=== PATIENT | female | born 1950 | race Caucasian/White ===

== ENCOUNTER 2017-01-07 10:13 | Outpatient (CLI) | payer MEDICARE, OTHER ==
--- NOTE | 2017-01-07 12:06 | XRAY Report ---
THREE VIEW LEFT FOOT: 01/07/2017 CLINICAL INDICATION: Fracture followup. FINDINGS: AP, lateral, and oblique views of the left foot are compared to previous films of 12/13/19 17. There has been interval callus formation at the comminuted fracture of the 5th metatarsal. No new fra cture is seen. Osteoarthritic changes are stable. IMPRESSION: CALLUS FORMATION AT THE 5TH METATARSAL FRACTURE SITE. JOB #: [id number] EXT JOB #:[id number]
== END 2017-01-07 10:14 | disposition home or self-care (01) ==
LOC: DI.N 10:13
PROVIDERS: ATTEND Orthopaedic Surgery
DX: S92.352D Displaced fracture of fifth metatarsal bone, left foot, subsequent encounter for fracture with routine healing (principal)

== ENCOUNTER 2017-02-04 08:30 | Outpatient (CLI) | payer MEDICARE, OTHER ==
[2017-02-04 13:11] LABS: BASOPHILS % (AUTO) 0.7 %; EOSINOPHILS # (AUTO) 0.2 10^3/uL (0.0-0.7); EOSINOPHILS % (AUTO) 3.9 %; HCT - HEMATOCRIT 39.4 % (37.0-47.0); HGB - HEMOGLOBIN 13.3 g/dL (12.0-16.0); LYMPHOCYTES # (AUTO) 1.9 10^3/uL (1.5-3.5); LYMPHOCYTES % (AUTO) 36.7 %; MEAN CORPUSCULAR HEMOGLOBIN 29.6 pg (27.0-31.0); MEAN CORPUSCULAR HGB CONC 33.8 g/dL (32.0-36.0); MEAN CORPUSCULAR VOLUME 87.5 fL (81.0-99.0); MEAN PLATELET VOLUME 8.8 fL (7.9-10.8); MONOCYTES # (AUTO) 0.3 10^3/uL (0.0-1.0); MONOCYTES % (AUTO) 6.5 %; NEUTROPHILS # (AUTO) 2.7 10^3/uL (1.5-6.6); NEUTROPHILS % (AUTO) 52.2 %; RED CELL DISTRIBUTION WIDTH 13.8 % (12.0-15.0); UNCORRECTED WHITE BLOOD COUNT 5.2 x10^3/uL; WHITE BLOOD COUNT 5.2 x10^3/uL (4.8-10.8)
[2017-02-04 13:42] LABS: ALBUMIN/GLOBULIN RATIO 1.6 (1.0-2.2); BUN - BLOOD UREA NITROGEN 17 mg/dL (6-20); CALCIUM 9.4 mg/dL (8.5-10.3); CARBON DIOXIDE - CO2 30 mmol/L (21-32); CHLORIDE 103 mmol/L (101-111); CHOL/HDL RATIO 2.7 (<4.4); CHOLESTEROL 168 mg/dL; CREATININE 1.2 mg/dL (0.4-1.0); GFR - MDRD 45 (>89); GLUCOSE 103 mg/dL (70-100); HDL CHOLESTEROL 63 mg/dL; LDL/HDL RATIO 1.3 (<4.4); POTASSIUM 4.1 mmol/L (3.5-5.0); SODIUM 140 mmol/L (135-145); TOTAL PROTEIN 6.8 g/dL (6.7-8.2); TRIGLYCERIDES 121 mg/dL; VLDL CHOLESTEROL 24 mg/dL
== END 2017-02-04 08:31 | disposition home or self-care (01) ==
LOC: LAB.WCP 08:30
PROVIDERS: ATTEND Physician Assistant Medical
DX: E78.5 Hyperlipidemia, unspecified (principal)
CPT/HCPCS: 36415; 80053; 80061; 84443; 85025

== ENCOUNTER 2017-04-29 12:16 | Outpatient (CLI) | payer MEDICARE, OTHER ==
--- NOTE | 2017-05-01 15:14 | Mammography Report ---
DIGITAL SCREENING MAMMOGRAM: 04/29/2017 CLINICAL INDICATION: A 67-year-old with history of benign biopsies for screening. COMPARISON: 03/2016, 05/2014, 05/2013, 03/2012, 02/2011, 01/2010 TECHNIQUE: Routine CC and MLO projections were obtained of the breasts. FINDINGS: The breasts demonstrate scattered fibroglandular densities bilaterally. Post-biopsy kwong es are stable. Coarse and punctate, typically benign calcifications are present. Circumscribed nodu le in the right upper outer quadrant is stable. No suspicious masses, clustered microcalcifications, or regions of architectural distortion are identified. IMPRESSION: BENIGN FINDINGS. RECOMMENDATION: Routine annual screening unless otherwise clinically indicated. BIRADS CATEGORY 2 - BENIGN FINDINGS. STANDARD QUALIFYING STATEMENTS 1. This examination was reviewed with the aid of Computer-Aided Detection (CAD). 2. A negative or benign imaging report should not delay biopsy if clinically suspicious findings are present. Consider surgical consultation if warranted. More than 5% of cancers are not identified by i maging. 3. Dense breasts may obscure an underlying neoplasm. JOB #: [id number] EXT JOB #:[id number]
== END 2017-04-29 12:17 | disposition home or self-care (01) ==
LOC: DI.N 12:16
PROVIDERS: ATTEND Physician Assistant Medical
DX: Z12.31 Encounter for screening mammogram for malignant neoplasm of breast (principal)
CPT/HCPCS: 77067

== ENCOUNTER 2018-03-19 08:27 | Outpatient (CLI) | payer MEDICARE, OTHER ==
[2018-03-19 12:54] LABS: BASOPHILS % (AUTO) 0.9 %; EOSINOPHILS # (AUTO) 0.3 10^3/uL (0.0-0.7); EOSINOPHILS % (AUTO) 5.8 %; HGB - HEMOGLOBIN 13.1 g/dL (12.0-16.0); LYMPHOCYTES # (AUTO) 1.1 10^3/uL (1.5-3.5); LYMPHOCYTES % (AUTO) 20.8 %; MEAN CORPUSCULAR HEMOGLOBIN 30.2 pg (27.0-31.0); MEAN CORPUSCULAR HGB CONC 33.7 g/dL (32.0-36.0); MEAN CORPUSCULAR VOLUME 89.6 fL (81.0-99.0); MEAN PLATELET VOLUME 8.8 fL (7.9-10.8); MONOCYTES # (AUTO) 0.5 10^3/uL (0.0-1.0); MONOCYTES % (AUTO) 8.5 %; NEUTROPHILS # (AUTO) 3.4 10^3/uL (1.5-6.6); PLT - PLATELET COUNT 226 10^3/uL (130-450); RED BLOOD COUNT 4.35 10^6/uL (4.20-5.40); RED CELL DISTRIBUTION WIDTH 13.6 % (12.0-15.0); WHITE BLOOD COUNT 5.3 x10^3/uL (4.8-10.8)
[2018-03-19 13:17] LABS: ALBUMIN/GLOBULIN RATIO 1.4 (1.0-2.2); ALKALINE PHOSPHATASE 70 IU/L (42-121); ALT ALANINE AMINOTRANSFERASE 21 IU/L (10-60); AST ASPARTATE AMINOTRANSFERASE 21 IU/L (10-42); BUN - BLOOD UREA NITROGEN 20 mg/dL (6-20); CARBON DIOXIDE - CO2 30 mmol/L (21-32); CHLORIDE 101 mmol/L (101-111); CHOL/HDL RATIO 3.2 (<4.4); CHOLESTEROL 174 mg/dL; CREATININE 1.2 mg/dL (0.4-1.0); GFR - MDRD 45 (>89); GLUCOSE 94 mg/dL (70-100); HDL CHOLESTEROL 54 mg/dL; LDL CHOLESTEROL,CALCULATED 91 mg/dL; LDL/HDL RATIO 1.7 (<4.4); SODIUM 139 mmol/L (135-145); TOTAL PROTEIN 6.9 g/dL (6.7-8.2); VLDL CHOLESTEROL 29 mg/dL
== END 2018-03-19 08:28 ==
LOC: LAB.WCP 08:27
PROVIDERS: ATTEND Physician Assistant Medical
DX: E78.5 Hyperlipidemia, unspecified (principal); K21.9 Gastro-esophageal reflux disease without esophagitis
CPT/HCPCS: 36415; 80053; 80061; 83721; 85025

== ENCOUNTER 2018-05-21 11:45 | Outpatient (CLI) | payer MEDICARE, OTHER ==
--- NOTE | 2018-05-27 10:55 | Mammography Report ---
Reason: SCREENING MAMMO Procedure Date: 05/21/2018 Accession Number: [id number] / [id number] Procedure: MGN - Screening Mammo Dig Bilat CPT Code: FULL RESULT: EXAM: Screening Mammo Dig Bilat DATE: 05/21/2018 12:16 PM CLINICAL HISTORY: Screening. No reported personal or family history of breast cancer. History of bilateral benign breast biopsy TECHNIQUE: Bilateral CC and MLO views were obtained. COMPARISON: 04/29/2017 through 05/13/2013 FINDINGS: The breasts demonstrate scattered fibroglandular densities bilaterally. Bilateral breasts: There are stable postsurgical changes in both breasts. Stable biopsy marker noted in the left breast. There are no suspicious masses, calcifications or areas of distortion. IMPRESSION: Benign findings RECOMMENDATION: Routine annual screening unless otherwise clinically indicated. BI-RADS CATEGORY 2: Benign findings STANDARD QUALIFYING STATEMENTS: 1. This examination was reviewed with the aid of Computer-Aided Detection (CAD). 2. A negative or benign imaging report should not preclude biopsy if clinically suspicious findings are present. 3. Dense breasts may obscure an underlying neoplasm. 4. This examination was reviewed without the aid of 3D breast imaging (tomosynthesis).
== END 2018-05-21 11:46 | disposition home or self-care (01) ==
LOC: DI.N 11:45
DX: Z12.31 Encounter for screening mammogram for malignant neoplasm of breast (principal)
CPT/HCPCS: 77067

== ENCOUNTER 2018-10-10 09:29 | Outpatient (CLI) | payer MEDICARE, OTHER ==
--- NOTE | 2018-10-10 15:45 | XRAY Report ---
Reason: LEG PAIN, RIGHT Procedure Date: 10/10/2018 Accession Number: [id number] / [id number] Procedure: WCP - Tib/Fib RT CPT Code: FULL RESULT: EXAM: RIGHT TIBIA/FIBULA RADIOGRAPHY EXAM DATE: 10/10/2018 09:39 AM. CLINICAL HISTORY: Pain in the middle of the right lower leg. No known injury. COMPARISON: None. TECHNIQUE: 2 views. FINDINGS: Bones: Normal. No fracture or bone lesion. Joints: The patient is status post knee arthroplasty, incompletely evaluated. Soft Tissues: Normal. No soft tissue swelling. IMPRESSION: No fracture or dislocation of fibula or tibia. RADIA
== END 2018-10-10 09:30 | disposition home or self-care (01) ==
LOC: DI.WCP 09:29
PROVIDERS: ATTEND Physician Assistant Medical
DX: M79.604 Pain in right leg (principal)

== ENCOUNTER → 2019-07-07 | Outpatient (CLI) | payer MEDICARE, OTHER ==
[2019-07-07 12:22] LABS: BASOPHILS # (AUTO) 0.1 10^3/uL (0.0-0.1); EOSINOPHILS # (AUTO) 0.3 10^3/uL (0.0-0.7); EOSINOPHILS % (AUTO) 6.2 %; HGB - HEMOGLOBIN 13.1 g/dL (12.0-16.0); LYMPHOCYTES # (AUTO) 1.9 10^3/uL (1.5-3.5); MEAN CORPUSCULAR HEMOGLOBIN 28.8 pg (27.0-31.0); MEAN CORPUSCULAR HGB CONC 31.8 g/dL (32.0-36.0); MEAN CORPUSCULAR VOLUME 90.5 fL (81.0-99.0); MEAN PLATELET VOLUME 11.3 fL (7.9-10.8); MONOCYTES # (AUTO) 0.4 10^3/uL (0.0-1.0); NEUTROPHILS # (AUTO) 2.4 10^3/uL (1.5-6.6); NEUTROPHILS % (AUTO) 48.6 %; PLT - PLATELET COUNT 251 10^3/uL (130-450); RED BLOOD COUNT 4.55 10^6/uL (4.20-5.40); RED CELL DISTRIBUTION WIDTH 13.2 % (12.0-15.0)
[2019-07-07 12:37] LABS: ALBUMIN 4.1 g/dL (3.2-5.5); ALBUMIN/GLOBULIN RATIO 1.7 (1.0-2.2); ALKALINE PHOSPHATASE 54 IU/L (42-121); ALT ALANINE AMINOTRANSFERASE 19 IU/L (10-60); AST ASPARTATE AMINOTRANSFERASE 21 IU/L (10-42); BILIRUBIN,TOTAL 0.9 mg/dL (0.2-1.0); BUN - BLOOD UREA NITROGEN 26 mg/dL (6-20); CALCIUM 8.9 mg/dL (8.5-10.3); CARBON DIOXIDE - CO2 26 mmol/L (21-32); CHLORIDE 102 mmol/L (101-111); CHOL/HDL RATIO 4.8 (<4.4); CHOLESTEROL 248 mg/dL; CREATININE 1.2 mg/dL (0.4-1.0); GFR - MDRD 45 (>89); GLUCOSE 112 mg/dL (70-100); HDL CHOLESTEROL 52 mg/dL; LDL CHOLESTEROL,CALCULATED 156 mg/dL; SODIUM 138 mmol/L (135-145); TOTAL PROTEIN 6.5 g/dL (6.7-8.2); VLDL CHOLESTEROL 40 mg/dL
== END ==
LOC: LAB.WCP 08:25
PROVIDERS: ATTEND Physician Assistant Medical
DX: E78.5 Hyperlipidemia, unspecified (principal); K21.9 Gastro-esophageal reflux disease without esophagitis
CPT/HCPCS: 36415; 80053; 80061; 83721; 85025

== ENCOUNTER 2019-08-25 12:19 | Outpatient (CLI) | payer MEDICARE, OTHER ==
--- NOTE | 2019-08-25 15:11 | Mammography Report ---
Reason: ROUTINE MAMMO Procedure Date: 08/25/2019 Accession Number: [id number] / [id number] Procedure: MGN - Screening Mammo w/Brian CPT Code: Final Report FULL RESULT: EXAM: Screening Mammo w/Brian DATE: 08/25/2019 12:47 PM CLINICAL HISTORY: Routine screening. History of bilateral benign biopsies. TECHNIQUE: (B) - Bilateral CC and MLO views were obtained. COMPARISON: 05/21/2018, 04/29/2017, 03/15/2016 and 05/28/2014 PARENCHYMAL PATTERN: (A) - The breasts demonstrate scattered fibroglandular densities bilaterally. FINDINGS: No significant interval change. There are no suspicious masses, calcifications, or areas of distortion. Scattered nodular densities in the right breast and a biopsy clip in the left breast are stable. IMPRESSION: Negative examination. BI-RADS category 1. RECOMMENDATION: (ANNUAL) - Recommend routine annual screening mammography. BI-RADS CATEGORY: (1) - Negative. STANDARD QUALIFYING STATEMENTS: 1. This examination was not reviewed with the aid of Computer-Aided Detection (CAD). 2. A negative or benign imaging report should not preclude biopsy if clinically suspicious findings are present. 3. Dense breasts may obscure an underlying neoplasm. 4. This examination was reviewed with the aid of 3D breast imaging (tomosynthesis).
== END 2019-08-25 12:20 | disposition home or self-care (01) ==
LOC: DI.N 12:19
DX: Z12.31 Encounter for screening mammogram for malignant neoplasm of breast (principal)
CPT/HCPCS: 77063; 77067

== ENCOUNTER 2019-11-25 09:37 | Outpatient (CLI) | payer MEDICARE, OTHER ==
--- NOTE | 2019-11-25 09:45 | XRAY Report ---
Reason: RIGHT SHOULDER IMPINGEMENT SYNDROME Procedure Date: 11/25/2019 Accession Number: [id number] / [id number] Procedure: WCP - Shoulder 3 View RT CPT Code: Final Report FULL RESULT: PROCEDURE: Shoulder 3 View RT INDICATIONS: RIGHT SHOULDER IMPINGEMENT SYNDROME TECHNIQUE: 3 views of the shoulder were acquired. COMPARISON: None. FINDINGS: Bones: No fractures or dislocations. No suspicious bony lesions. Visualized ribs appear intact. Mild shoulder joint degeneration Soft tissues: No suspicious soft tissue calcifications. IMPRESSION: Mild right shoulder joint degeneration. If the patient's pain or other symptoms persist, consider further evaluation with MRI. Reviewed by: Cale Plata MD on 11/25/2019 9:44 AM PDT Approved by: Cale Plata MD on 11/25/2019 9:44 AM PDT Station ID: [id number]
== END 2019-11-25 23:59 | disposition home or self-care (01) ==
LOC: DI.WCP 09:37
PROVIDERS: ATTEND Physician Assistant Medical
DX: M19.011 Primary osteoarthritis, right shoulder (principal)

== ENCOUNTER 2020-10-22 11:06 | Outpatient (CLI) | payer MEDICARE, OTHER ==
--- NOTE | 2020-10-22 20:05 | XRAY Report ---
PROCEDURE: Foot 3 View LT INDICATIONS: FOOT PAIN TECHNIQUE: 3 views of the foot were acquired. COMPARISON: None available at time of dictation. FINDINGS: Bones: There is a remote fifth metatarsal fracture. No acute fracture. There is hallux valgus with mo derate degenerative changes of the first metatarsophalangeal joint. There is mild bony and soft tissu e bunion formation. Soft tissues: No tibiotalar joint effusion. Small Achilles insertional and moderate plantar insertio nal enthesophyte. IMPRESSION: No acute osseous abnormality. Hallux valgus with moderate degenerative changes of the first metatarsophalangeal joint and mild osse ous and soft tissue bunion formation. Calcaneal spurring at the plantar fascial and Achilles insertions. Reviewed by: David Sargent DO on 10/22/2020 7:04 PM MEAGHAN Approved by: David Sargent DO on 10/22/2020 7:04 PM MEAGHAN Station ID: [id number]
== END 2020-10-22 11:07 | disposition home or self-care (01) ==
LOC: DI.N 11:06
PROVIDERS: ATTEND Family Medicine
DX: M79.672 Pain in left foot (principal); M19.072 Primary osteoarthritis, left ankle and foot; M20.12 Hallux valgus (acquired), left foot; M77.32 Calcaneal spur, left foot

== ENCOUNTER 2021-02-09 10:26 | Outpatient (CLI) | payer MEDICARE, OTHER ==
[2021-02-09 17:58] LABS: BASOPHILS % (AUTO) 0.7 %; EOSINOPHILS # (AUTO) 0.4 10^3/uL (0.0-0.7); HCT - HEMATOCRIT 41.4 % (37.0-47.0); HGB - HEMOGLOBIN 12.8 g/dL (12.0-16.0); LYMPHOCYTES # (AUTO) 1.5 10^3/uL (1.5-3.5); LYMPHOCYTES % (AUTO) 26.7 %; MEAN CORPUSCULAR HEMOGLOBIN 29.5 pg (27.0-31.0); MEAN CORPUSCULAR HGB CONC 30.9 g/dL (32.0-36.0); MEAN CORPUSCULAR VOLUME 95.4 fL (81.0-99.0); MEAN PLATELET VOLUME 10.9 fL (7.9-10.8); MONOCYTES # (AUTO) 0.4 10^3/uL (0.0-1.0); MONOCYTES % (AUTO) 7.7 %; NEUTROPHILS # (AUTO) 3.3 10^3/uL (1.5-6.6); NEUTROPHILS % (AUTO) 57.5 %; PLT - PLATELET COUNT 242 10^3/uL (130-450); RED BLOOD COUNT 4.34 10^6/uL (4.20-5.40); RED CELL DISTRIBUTION WIDTH 13.2 % (12.0-15.0); WHITE BLOOD COUNT 5.7 x10^3/uL (4.8-10.8)
[2021-02-09 18:23] LABS: ALBUMIN 4.2 g/dL (3.2-5.5); ALBUMIN/GLOBULIN RATIO 1.4 (1.0-2.2); ALKALINE PHOSPHATASE 74 IU/L (42-121); ALT ALANINE AMINOTRANSFERASE 17 IU/L (10-60); AST ASPARTATE AMINOTRANSFERASE 20 IU/L (10-42); BILIRUBIN,TOTAL 0.9 mg/dL (0.2-1.0); BUN - BLOOD UREA NITROGEN 26 mg/dL (6-20); CALCIUM 9.3 mg/dL (8.5-10.3); CARBON DIOXIDE - CO2 32 mmol/L (21-32); CHLORIDE 102 mmol/L (101-111); CHOL/HDL RATIO 2.9 (<4.4); CHOLESTEROL 174 mg/dL; CREATININE 1.1 mg/dL (0.4-1.0); GFR - MDRD 49 (>89); GLUCOSE 94 mg/dL (70-100); HDL CHOLESTEROL 61 mg/dL; LDL CHOLESTEROL,CALCULATED 91 mg/dL; LDL/HDL RATIO 1.5 (<4.4); POTASSIUM 4.2 mmol/L (3.5-5.0); SODIUM 142 mmol/L (135-145); TOTAL PROTEIN 7.2 g/dL (6.7-8.2); TRIGLYCERIDES 108 mg/dL; VLDL CHOLESTEROL 22 mg/dL
== END 2021-02-09 23:59 | disposition home or self-care (01) ==
LOC: LAB.WCP 10:26
PROVIDERS: ATTEND Physician Assistant Medical
DX: E78.5 Hyperlipidemia, unspecified (principal); K21.9 Gastro-esophageal reflux disease without esophagitis
CPT/HCPCS: 36415; 80053; 80061; 83721; 85025

== ENCOUNTER 2021-05-17 12:21 | Outpatient (CLI) | payer MEDICARE, OTHER ==
--- NOTE | 2021-05-18 11:58 | Mammography Report ---
BILATERAL DIGITAL SCREENING MAMMOGRAM 3D/2D: 05/17/2021 CLINICAL: Routine screening. Comparison is made to exams dated: 08/25/2019 mammogram, 05/21/2018 mammogram, 04/29/2017 mammogram, 03/15/2016 mammogram, 05/28/2014 mammogram, and 05/13/2013 mammogram - [facility]. T he tissue of both breasts is predominantly fatty. No significant masses, calcifications, or other findings are seen in either breast. There has been no significant interval change. IMPRESSION: NEGATIVE There is no mammographic evidence of malignancy. A 1 year screening mammogram is recommended. This exam was interpreted at Station ID: [id number]. NOTE: For mammograms, a report in lay terms will be sent to the patient. Approximately 15% of breast malignancies will not be visualized mammographically. In the management of a palpable breast mass, a negative mammogram must not discourage biopsy of a clinically suspicious lesion. Electronically Signed By: Sandro Ardon M.D., jr/darlene:05/17/2021 13:13:53 ACR BI-RADS Category 1: Negative 3341F PARENCHYMAL PATTERN: (F) - The breast(s) demonstrate(s) diffuse fatty replacement. BI-RADS CATEGORY: (1) - 1 RECOMMENDATION: (ANNUAL) - Recommend routine annual screening mammography. [id number] 1 year screening LATERALITY: (B)
== END 2021-05-17 12:22 | disposition home or self-care (01) ==
LOC: DI.N 12:21
DX: Z12.31 Encounter for screening mammogram for malignant neoplasm of breast (principal)

== ENCOUNTER 2021-07-17 11:40 | Outpatient (CLI) | payer MEDICARE, OTHER | END 2021-07-17 23:59 | disposition home or self-care (01) | LOC: LAB.N 11:40 | PROVIDERS: ATTEND Physician Assistant Medical | DX: N30.00 Acute cystitis without hematuria (principal) | CPT/HCPCS: 87086 ==

== ENCOUNTER 2021-08-17 15:23 | Outpatient (CLI) | payer MEDICARE, OTHER ==
--- NOTE | 2021-08-18 10:42 | Ultrasound Report ---
PROCEDURE: Ext Limited Non Vascular INDICATIONS: LEFT ARM SOFT TISSUE MASS TECHNIQUE: Real-time scanning was performed of the left arm, with image documentation. COMPARISON: None. FINDINGS: Focused ultrasound examination of medial left elbow region shows no discrete soft tissue mass or flui d collection. IMPRESSION: No abnormality is seen in left medial elbow soft tissue at patient's reported area of pa lpable lump. Reviewed by: Antonio Perera MD on 08/18/2021 10:41 AM PST Approved by: Antonio Perera MD on 08/18/2021 10:41 AM PST Station ID: [id number]
== END 2021-08-17 15:24 | disposition home or self-care (01) ==
LOC: DI 15:23
PROVIDERS: ATTEND Physician Assistant
DX: R22.32 Localized swelling, mass and lump, left upper limb (principal)

== ENCOUNTER 2021-09-08 08:30 | Day surgery (SDC) | payer MEDICARE, OTHER ==
[~2021-09-08 08:30] MED LIST: LACTATED RINGERS 1,000 ML IV ONE
[2021-09-08] MEDS ORDERED: PROPOFOL 500 MG/50 ML 500 MG/50 ML VIAL ONE (08:52)
--- NOTE | 2021-09-08 09:11 | ANESTHESIA ---
Pre-Anesthesia VS, & Labs - Diagnosis history of polyps - Procedure colon polyps Vital Signs: Temp Pulse Resp BP Pulse Ox 37 C 91 19 137/84 H 96 09/08/21 08:47 09/08/21 08:47 09/08/21 08:47 09/08/21 08:47 09/08/21 08:47 Height: 5 ft 1 in Weight (kg): 99.5 kg Body Mass Index: 41.4 BMI Classification: Morbidly Obese - NPO >8 hours - Is Patient ?: No - Lab Results Lab results reviewed: Yes Home Medications and Allergies Home Medications: Ambulatory Orders Atorvastatin [Lipitor] 20 mg PO DAILY 09/08/21 Escitalopram Oxalate [Lexapro] 20 mg PO DAILY 05/03/14 Solifenacin Succinate [Vesicare] 10 mg PO DAILY 05/03/14 Cetirizine [ZyrTEC] 10 mg PO DAILY PRN 07/26/14 lisinopriL [Lisinopril] 10 mg PO ONCE 04/18/16 Atorvastatin [Lipitor] 20 mg PO DAILY 09/08/21 Allergies/Adverse Reactions: Allergies Allergy/AdvReac Type Severity Reaction Status Date / Time No Known Drug Allergies Allergy Verified 09/08/21 08:59 Anes History & Medical History - Anesthetic History Anesthesia Complications: reports: No previous complications Family history of Anesthesia Complications: Denies Family history of Malignant Hyperthermia: Denies - Medical History Cardiovascular: reports: High cholesterol Pulmonary: reports: None Gastrointestinal: reports: GERD Urinary: reports: Incontinence Musculoskeletal: reports: Osteoporosis, Chronic back pain Endocrine/Autoimmune: reports: None Skin: reports: None Smoking Status: Never smoker - Surgical History Eyes Ears Nose Throat (EENT): reports: Tonsil/Adenoidectomy Orthopedic: reports: Knee replacement, Other Exam General: Alert, Oriented x3, Cooperative, No acute distress Dental: WNL Mouth Openin Fingerbreadth Neck Mobility: Normal Mallampati classification: II Plan Anesthesia Type: General, Total IV Consent for Procedure(s) Verified and Reviewed: Yes Code Status: Attempt Resuscitation ASA classification: 3-Severe systemic disease Is this case an emergency?: No
--- NOTE | 2021-09-08 09:22 | HISTORY & PHYSICAL EXAMINATION ---
Chief Complaint - Chief Complaint Chief Complaint: history colon polyp History of Present Illness - History Obtained From Records Reviewed: yes History obtained from: pt Exam Limitations: none - History of Present Illness HPI Comment/Other: distant history of colon polyp. here for colon cancer screening. no problems. History - Past Medical History Cardiovascular: reports: High cholesterol Respiratory: reports: None Endocrine/Autoimmune: reports: None GI: reports: GERD : reports: Incontinence HEENT: reports: Chronic vision loss, Chronic hearing loss Psych: reports: Depression Musculoskeletal: reports: Osteoporosis, Chronic back pain Derm: reports: None MRSA Hx?: No - Past Surgical History Ortho: reports: Knee replacement, Other HEENT: reports: Tonsil/Adenoidectomy Meds/Allgy - Home Medications Home Medications: Ambulatory Orders Medication Instructions Recorded Confirmed Escitalopram Oxalate [Lexapro] 20 mg PO DAILY 05/03/14 09/08/21 Solifenacin Succinate [Vesicare] 10 mg PO DAILY 05/03/14 09/08/21 Cetirizine [ZyrTEC] 10 mg PO DAILY PRN 07/26/14 09/08/21 lisinopriL [Lisinopril] 10 mg PO ONCE 04/18/16 09/08/21 Atorvastatin [Lipitor] 20 mg PO DAILY 09/08/21 09/08/21 - Allergies Allergies/Adverse Reactions: Allergies Allergy/AdvReac Type Severity Reaction Status Date / Time No Known Drug Allergies Allergy Verified 09/08/21 08:59 Review of Systems - Other Findings Other Findings: 10 pt ros as above otherwise unremarkable Exam - Vital Signs Vital Signs: Vital Signs x48h Temp Pulse Resp BP Pulse Ox 09/08/21 08:47 37 C 91 19 137/84 H 96 - Physical Exam General Appearance: positive: No acute distress, Alert Eyes Bilateral: positive: PERRL, EOMI, No scleral icterus ENT: positive: No signs of dehydration Neck: positive: No JVD Respiratory: positive: No respiratory distress, Breath sounds nml Cardiovascular: positive: Regular rate & rhythm Abdomen: positive: Non-tender, No distention Neurologic/Psychiatric: positive: Oriented x3 Conclusion/Plan - Problem List (1) History of adenomatous polyp of colon Conclusion/Plan: plan colonoscopy. parq held and consent obtained - Lab Results Lab results reviewed: Yes
[2021-09-08] MEDS ORDERED: LACTATED RINGERS 1,000 ML IV ONE (09:58)
[2021-09-08 11:32] VITALS: BP 117/68
--- NOTE | 2021-09-08 14:59 | ANESTHESIA POST OP EVALUATION ---
Anesthesia Post Eval - Post Anesthesia Eval Vitals: Last Vital Signs Temp 37 C 09/08/21 10:45 Pulse 70 09/08/21 10:45 Resp 16 09/08/21 10:45 BP 117/68 09/08/21 10:45 Pulse Ox 98 09/08/21 10:45 CV Function Including HR & BP: Stable Pain Control: Satisfactory Nausea & Vomiting: Negative Mental Status: Baseline Respiratory Status: Airway Patent Hydration Status: Satisfactory Anesthesia Complications: None
== END 2021-09-08 08:31 | disposition home or self-care (01) ==
LOC: SDS 08:30
PROVIDERS: ATTEND Surgery
PROC: 0DBP8ZX Excision of Rectum, Via Natural or Artificial Opening Endoscopic, Diagnostic (ICD-10-PCS; principal; 2021-09-08 09:30)
DX: Z12.11 Encounter for screening for malignant neoplasm of colon (principal); D12.8 Benign neoplasm of rectum; K57.30 Diverticulosis of large intestine without perforation or abscess without bleeding; K62.1 Rectal polyp; E66.01 Morbid (severe) obesity due to excess calories; Z68.41 Body mass index [BMI] 40.0-44.9, adult; Z86.010 Personal history of colon polyps
CPT/HCPCS: 45380; 45385; J7120

== ENCOUNTER 2021-09-12 13:44 | Outpatient (CLI) | payer MEDICARE, OTHER ==
--- NOTE | 2021-09-12 16:48 | XRAY Report ---
PROCEDURE: Hips 2V BILAT INDICATIONS: L HIP PX TECHNIQUE: 2 views of the hip were acquired. COMPARISON: None FINDINGS: Bones: No fractures or dislocations. No suspicious bony lesions. The visualized pelvic ring appear s intact. There is moderate to severe bilateral degenerative hip joint space narrowing, left greater than right. Degenerative changes are present within the lower lumbar spine. Small paratracheal or os teophytes are present. No erosions. Soft tissues: No suspicious soft tissue calcifications or masses. IMPRESSION: Moderate to severe bilateral hip osteoarthritis. Reviewed by: Urvashi Ny MD on 09/12/2021 4:46 PM PDT Approved by: Urvashi Ny MD on 09/12/2021 4:46 PM PDT Station ID: [id number]
== END 2021-09-12 13:45 | disposition home or self-care (01) ==
LOC: DI.N 13:44
PROVIDERS: ATTEND Physician Assistant Medical
DX: M16.0 Bilateral primary osteoarthritis of hip (principal)

== ENCOUNTER 2022-03-20 08:59 | Outpatient (CLI) | payer MEDICARE, OTHER ==
[2022-03-20 11:57] LABS: BASOPHILS % (AUTO) 0.6 %; EOSINOPHILS # (AUTO) 0.4 10^3/uL (0.0-0.7); EOSINOPHILS % (AUTO) 5.4 %; HCT - HEMATOCRIT 40.3 % (37.0-47.0); HGB - HEMOGLOBIN 13.4 g/dL (12.0-16.0); LYMPHOCYTES # (AUTO) 1.9 10^3/uL (1.5-3.5); MEAN CORPUSCULAR HEMOGLOBIN 30.6 pg (27.0-31.0); MEAN CORPUSCULAR HGB CONC 33.3 g/dL (32.0-36.0); MEAN PLATELET VOLUME 10.6 fL (7.9-10.8); MONOCYTES # (AUTO) 0.5 10^3/uL (0.0-1.0); MONOCYTES % (AUTO) 7.5 %; NEUTROPHILS # (AUTO) 3.8 10^3/uL (1.5-6.6); NEUTROPHILS % (AUTO) 56.9 %; PLT - PLATELET COUNT 265 10^3/uL (130-450); RED BLOOD COUNT 4.38 10^6/uL (4.20-5.40); RED CELL DISTRIBUTION WIDTH 12.9 % (12.0-15.0); WHITE BLOOD COUNT 6.7 x10^3/uL (4.8-10.8)
[2022-03-20 12:23] LABS: ALBUMIN/GLOBULIN RATIO 1.4 (1.0-2.2); ALKALINE PHOSPHATASE 65 IU/L (42-121); ALT ALANINE AMINOTRANSFERASE 22 IU/L (10-60); AST ASPARTATE AMINOTRANSFERASE 18 IU/L (10-42); BILIRUBIN,TOTAL 0.8 mg/dL (0.2-1.0); BUN - BLOOD UREA NITROGEN 27 mg/dL (6-20); CALCIUM 9.5 mg/dL (8.5-10.3); CARBON DIOXIDE - CO2 32 mmol/L (21-32); CHLORIDE 102 mmol/L (101-111); CHOL/HDL RATIO 2.7 (<4.4); CHOLESTEROL 169 mg/dL; CREATININE 1.1 mg/dL (0.4-1.0); GFR - MDRD 49 (>89); GLUCOSE 97 mg/dL (70-100); HDL CHOLESTEROL 62 mg/dL; LDL CHOLESTEROL,CALCULATED 86 mg/dL; LDL/HDL RATIO 1.4 (<4.4); POTASSIUM 3.7 mmol/L (3.5-5.0); SODIUM 141 mmol/L (135-145); TOTAL PROTEIN 6.8 g/dL (6.7-8.2); TRIGLYCERIDES 105 mg/dL; VLDL CHOLESTEROL 21 mg/dL
== END 2022-03-20 09:00 | disposition home or self-care (01) ==
LOC: LAB.N 08:59
PROVIDERS: ATTEND Physician Assistant Medical
DX: E78.5 Hyperlipidemia, unspecified (principal); K21.9 Gastro-esophageal reflux disease without esophagitis
CPT/HCPCS: 36415; 80053; 80061; 83721; 85025

== ENCOUNTER 2022-09-27 13:51 | Outpatient (CLI) | payer MEDICARE, OTHER | END 2022-09-27 23:59 | disposition short-term general hospital (02) | LOC: EMS 13:51 | DX: M25.552 Pain in left hip (principal); Z96.642 Presence of left artificial hip joint | CPT/HCPCS: A0425; A0427 ==

== ENCOUNTER 2022-09-29 10:54 | Outpatient (CLI) | payer MEDICARE, OTHER | END 2022-09-29 23:59 | disposition short-term general hospital (02) | LOC: EMS 10:54 | DX: M25.552 Pain in left hip (principal) | CPT/HCPCS: A0425; A0429; A0888 ==

== ENCOUNTER 2022-10-02 17:04 | Outpatient (CLI) | payer MEDICARE, OTHER | END 2022-10-02 17:05 | disposition short-term general hospital (02) | LOC: EMS 17:04 | DX: M24.452 Recurrent dislocation, left hip (principal); Z96.642 Presence of left artificial hip joint | CPT/HCPCS: A0425; A0429; A0888 ==

== ENCOUNTER 2022-10-26 13:49 | Outpatient (CLI) | payer MEDICARE, OTHER | END 2022-10-26 23:59 | disposition critical access hospital (66) | LOC: EMS 13:49 | DX: M25.552 Pain in left hip (principal); Z96.642 Presence of left artificial hip joint; R23.8 Other skin changes | CPT/HCPCS: A0425; A0429 ==

== ENCOUNTER 2022-10-26 13:57 | Emergency (ER) | payer MEDICARE, OTHER ==
--- NOTE | 2022-10-26 14:11 | ED Physician Documentation ---
PD HPI LOWER EXT INJURY - Stated complaint Stated Complaint: L HIP DRAINAGE - Chief complaint Chief Complaint: Ext Problem - History obtained from History obtained from: Patient, EMS - Additional information Additional information: 72-year-old woman had a Left hip replacement On September 14 by [facility]. Since then she has had a lot of problems including several dislocations and it sounds like she needed an open hip Revision at some point since then. Brought in from SNF today for drainage from the wound. She denies fevers or significant pain. PD PAST MEDICAL HISTORY - Past Medical History Cardiovascular: High cholesterol Respiratory: None Endocrine/Autoimmune: None GI: GERD : Incontinence HEENT: Chronic vision loss, Chronic hearing loss Psych: Depression Musculoskeletal: Osteoporosis, Chronic back pain Derm: None - Past Surgical History Ortho: Knee replacement, Other HEENT: Tonsil/Adenoidectomy - Present Medications Home Medications: Ambulatory Orders Medication Instructions Recorded Confirmed Escitalopram Oxalate [Lexapro] 20 mg PO DAILY 05/03/14 10/26/22 lisinopriL [Lisinopril] 10 mg PO ONCE 04/18/16 09/08/21 Atorvastatin [Lipitor] 20 mg PO DAILY 09/08/21 10/26/22 Acetaminophen [Tylenol] 650 mg PO Q6H PRN 10/26/22 10/26/22 Amox/Clav 875/125 [Augmentin] 1 each PO Q12H #20 tablet 10/26/22 Aspirin [[place] Aspirin] 81 mg PO DAILY 10/26/22 10/26/22 Cetirizine HCl [Allergy] 10 mg PO DAILY 10/26/22 10/26/22 Cyclobenzaprine [Flexeril] 10 mg PO Q8HR PRN 10/26/22 10/26/22 Oxycodone HCl 10 mg PO Q3HR PRN 10/26/22 10/26/22 Solifenacin Succinate 10 mg PO DAILY 10/26/22 10/26/22 hydrOXYzine PAMOATE [Vistaril] 25 mg PO DAILY 10/26/22 10/26/22 - Allergies Allergies/Adverse Reactions: Allergies Allergy/AdvReac Type Severity Reaction Status Date / Time No Known Drug Allergies Allergy Verified 10/26/22 15:38 - Social History Smoking Status: Never smoker PD ED PE NORMAL - Vitals Vital signs reviewed: Yes - General General: Alert and oriented X 3, No acute distress - Derm Derm: Normal color, Warm and dry - Extremities Extremities: Other (There is a suture line over the lateral left hip. There is greenish drainage from it. Some slight redness and warmth. No severe pain with limited range of motion) - Neuro Neuro: Alert and oriented X 3, Normal speech Results - Vitals Vitals: Vital Signs - 24 hr 10/26/22 14:03 Temperature 37 C Heart Rate 105 H Respiratory 18 Rate Blood Pressure 105/66 O2 Saturation 99 Oxygen O2 Source [With Activity] Room air O2 Source [Without Activity] Room air O2 Source Room air - Labs Labs: Laboratory Tests 10/26/22 10/26/22 10/26/22 14:24 14:24 14:24 WBC 7.6 RBC 3.01 L Hgb 8.5 L Hct 26.7 L MCV 88.7 MCH 28.2 MCHC 31.8 L RDW 15.3 H Plt Count 428 MPV 8.9 Neut # (Auto) 5.3 Lymph # (Auto) 1.3 L Emmons # (Auto) 0.6 Eos # (Auto) 0.3 Baso # (Auto) 0.0 Absolute Nucleated RBC 0.00 Nucleated RBC % 0.0 ESR 76 H Sodium 134 L Potassium 3.4 L Chloride 94 L Carbon Dioxide 28 Anion Gap 12.0 BUN 13 Creatinine 0.9 Estimated GFR (MDRD) 62 L Glucose 126 H Calcium 8.3 L C-Reactive Protein 16.7 H PD Medical Decision Making - ED course ED course: 72-year-old woman who is little over a month out from a total hip whose had a lot of problems with dislocations and either an infection or seroma drainage presents with drainage from her wound. She appears well and is afebrile. CBC reviewed with moderate anemia. The noting that she had already been transfused once but does not fit transfusion guidelines now. No leukocytosis. CRP and ESR are significantly elevated. Chemistries otherwise fairly unremarkable. Ultrasound showing large fluid collection. Case initially discussed by phone with her surgeon, Dr. River who notes that she is out of town and defers to the on-call surgeon for management and they are paged at approximately 3:45 PM. I did talk with Dr. Preston subsequent to that who then called Dr. River. He does not feel like she needs to be transported today for a washout but probably does need to be seen in the clinic on Saturday which he will notify the clinic staff. Recommends Augmentin in the interim. Departure - Departure Disposition: Home, Self Care Clinical Impression: Postoperative hematoma Qualifiers: Surgical complication system/body Area: subcutaneous tissue Procedure type: non-dermatologic Qualified Code(s): L76.32 - Postprocedural hematoma of skin and subcutaneous tissue following other procedure Condition: Stable Record reviewed to determine appropriate education?: Yes Instructions: ED Hematoma Prescriptions: Amox/Clav 875/125 [Augmentin] 1 each PO Q12H #20 tablet Comments: Dr. River would like to see you on Saturday, call the clinic first thing in the morning for an appointment. I am Writing two [facility] is for transport in each direction. If you were to worsen recommend reevaluation immediately, preferably there is we do not have orthopedics [place] [employer] [facility] but she can return here for stabilization.
--- OUTSIDE RECORDS SUMMARY | 2022-10-26 14:25 | EXTERNAL MEDICAL SUMMARY RPT | Continuity of Care Document ---
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 Role Phone Unavailable Unavailable Unavailable Solo Lawson Unavailable Unavailable Allergies and Intolerances date description facility type (no date) No Known Drug Allergies [facility] ( unknown) Medications date description facility 2022-08-13 00:00 Cetirizine [facility]22[facility]09[facility]15 [facility]24 [facility]:00 Oxycodone [facility] 2022-09-15 00:00 Docusate Sodium [facility] 2022-10-24 00:00 Docusate Sodium [facility] 2022-09-15 00:00 Ibuprofen [facility] 2022-08-13 00:00 Axwyqxm-Npcjnobhhxcec-Gokdielv [facility] 2022-09-15 00:00 Aspirin [facility] 2022-09-15 00:00 Acetaminophen [facility] 2022-08-13 00:00 Escitalopram Oxalate [facility] 2022-08-13 00:00 Solifenacin [facility] 2022-08-13 00:00 Omeprazole-Sodium Bicarbonate I [facility] 2022-08-13 00:00 Atorvastatin [facility] 2022-10-24 00:00 Cyclobenzaprine [facility] 2022-10-24 00:00 Polyethylene Glycol 3350 [facility] 2022-09-30 00:00 Hydroxyzine [facility] Problems date description facility 2022-08-01 12:25 Urinary tract infection, site n ot specified [facility] 2022-08-01 12:[address], [address] [facility] 2022-08-01 12:25 Encounter for preprocedural lab oratory examination [facility] 2022-08-01 12:25 Encounter for other preprocedur al examination [facility] 2022-09-14 13:27 Unilateral primary osteoarthrit is, left hip [facility] 2022-09-14 16:10 Unilateral primary osteoarthrit is, [facility] 2022-09-14 16:39 Unilateral primary osteoarthrit is, [facility] 2022-09-15 08:59 Unilateral primary osteoarthrit is, [facility] 2022-09-15 12:12 Unilateral primary osteoarthrit is, [facility] 2022-09-15 14:26 Unilateral primary osteoarthrit is, [facility] 2022-09-15 15:15 Unilateral primary osteoarthrit is, [facility] 2022-09-17 08:29 Unilateral primary osteoarthrit is, [facility] 2022-09-17 08:31 Unilateral primary osteoarthrit is, [facility] 2022-09-17 08:32 Unilateral primary osteoarthrit is, [facility] 2022-09-27 00:00 Closed dislocation of hip [facility] 2022-09-27 00:00 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 [facility] 2022-09-28 09:47 Dislocation of inter nal left hip prosthesis, initial [facility] 2022-09-28 10:37 Dislocation of inter nal left hip prosthesis, [facility] 2022-09-30 12:49 Dislocation of inter nal left hip prosthesis, [facility] 2022-09-30 13:37 Dislocation of inter nal left hip prosthesis, [facility] 2022-09-30 13:41 Dislocation of inter nal left hip prosthesis, [facility] 2022-10-01 06:58 Dislocation of inter nal left hip prosthesis, [facility] 2022-10-02 09:45 Dislocation of inter nal left hip prosthesis, initial [facility] 2022-10-02 09:47 Dislocation of inter nal left hip prosthesis, initial [facility] 2022-10-03 07:14 Recurrent dislocation, [facility] 2022-10-03 07:51 Recurrent dislocation, [facility] 2022-10-03 11:52 Recurrent dislocation, [facility] 2022-10-04 06:42 Recurrent dislocation, [facility] 2022-10-04 14:14 Recurrent dislocation, [facility] 2022-10-06 09:55 Recurrent dislocation, [facility] 2022-10-06 14:48 Recurrent dislocation, [facility] 2022-10-06 14:48 Dislocation of inter nal left hip prosthesis, initial [facility] 2022-10-07 14:45 Recurrent dislocation, [facility] hip [facility] 2022-10-07 14:45 Dislocation of inter nal left hip prosthesis, initial [facility] 2022-10-08 10:01 Recurrent dislocation, [facility] hip [facility] 2022-10-08 10:01 Dislocation of inter nal left hip prosthesis, initial [facility] 2022-10-08 12:01 Recurrent dislocation, [facility] hip [facility] 2022-10-08 12:01 Dislocation of inter nal left hip prosthesis, [facility] 2022-10-08 13:00 Recurrent dislocation, [facility] 2022-10-08 13:00 Dislocation of inter nal left hip prosthesis, [facility] 2022-10-21 00:00 Postoperative anemia due to acu te blood loss [facility] 2022-10-21 00:00 Postoperative hematoma [facility] 2022-10-21 00:00 Seroma after procedure [facility] 2022-10-21 00:00 Left foot drop [facility] 2022-10-21 00:[address] [facility] 2022-10-21 13:22 Acute posthemorrhagic anemia Is [facility] 2022-10-21 13:22 Foot drop, [facility] foot [facility] 2022-10-21 16:10 Acute posthemorrhagic anemia Is [facility] 2022-10-21 16:10 Foot drop, left foot [facility] 2022-10-22 07:52 Acute posthemorrhagic anemia Is [facility] 2022-10-22 07:52 Foot drop, [facility] foot [facility] 2022-10-22 08:44 Acute posthemorrhagic anemia Is [facility] 2022-10-22 08:44 Foot drop, [facility] foot [facility] 2022-10-22 11:11 Acute posthemorrhagic anemia Is [facility] 2022-10-22 11:11 Foot drop, [facility] foot [facility] 2022-10-22 11:33 Acute posthemorrhagic anemia Is [facility] 2022-10-22 11:33 Foot drop, [facility] foot [facility] 2022-10-24 08:37 Acute posthemorrhagic anemia Is [facility] 2022-10-24 08:37 Foot drop, left foot [facility] 2022-10-24 08:41 Acute posthemorrhagic anemia Is [facility] 2022-10-24 08:41 Foot drop, left foot [facility] 2022-10-24 09:16 Acute posthemorrhagic anemia Is [facility] 2022-10-24 09:16 Foot drop, left foot [facility] 2022-10-24 09:21 Acute posthemorrhagic anemia Is [facility] 2022-10-24 09:21 Foot drop, left foot [facility] 2022-10-24 10:59 Acute posthemorrhagic anemia Is [facility] 2022-10-24 10:59 Foot drop, left foot [facility] Procedures date description facility 2022-10-21 00:00 Extraction of Left Upper Leg Mu scle, [facility] 2022-10-02 00:00 Reposition Left Uppe r Femur with Internal Fixation Device, [facility] 2022-10-02 00:00 Removal of Synthetic Substitute from Left Hip Joint, [facility] 2022-09-14 00:00 replacement of left hip joint with metal synthetic substitute, uncemented, [facility] 2022-10-02 00:00 replacement of left hip joint with synthetic substitute, uncemented, [facility] 2022-10-02 00:00 Revision of Syntheti c Substitute in Left Hip Joint, [facility] 2022-10-02 00:00 revision of syntheti c substitute in left hip joint, femoral surface, external approach [facility] 2022-10-04 00:00 [facility]:[address] [facility] 2022-10-04 00:00 XR pelvis, 1-2 views [facility] 2022-10-02 00:00 transfusion of nonau tologous red blood cells into peripheral vein, percutaneous approach [facility] 2022-09-14 00:00 X-ray of left hip, [facility] 2022-09-29 00:00 X-ray of left hip, [facility] 2022-10-02 00:00 X-ray of left hip, [facility] 2022-10-03 00:00 X-ray of left hip, [facility] 2022-10-04 00:00 Gram Stain [facility] 2022-10-20 00:00 Gram Stain [facility] 2022-09-27 00:00 XR fluoro, less than 60 minutes [facility] 2022-09-29 00:00 XR fluoro, less than 60 minutes [facility] 2022-10-02 00:00 XR fluoro, less than 60 minutes [facility] 2022-09-27 00:00 Closed Reduction Dislocated Hip (Left) [facility] 2022-09-29 00:00 Closed Reduction Dislocated Hip (Left) [facility] 2022-10-02 00:00 Closed Reduction Dislocated Hip [facility] 2022-09-14 00:00 Unilateral x-ray of hip, two views, with x-ray of pelvis [facility] 2022-09-27 00:00 Unilateral x-ray of hip, two views, with x-ray of pelvis [facility] 2022-09-29 00:00 Unilateral x-ray of hip, two views, with x-ray of [facility] 2022-10-02 00:00 Unilateral x-ray of hip, two views, with x-ray of [facility] 2022-10-04 00:00 Unilateral x-ray of hip, two views, with x-ray of [facility] 2022-10-21 00:00 CT pelvis w [facility] Results/Labs test date author facility value unit interpretation Result panel 1 (unknown) (no date) (unknown) [facility] (no value) (units unknown) (unknown) Result panel 2 (unknown) (no date) (unknown) [facility] (no value) (units unknown) (unknown) Result panel 3 (unknown) (no date) (unknown) [facility] (no value) (units unknown) (unknown) Result panel 4 (unknown) (no date) (unknown) [facility] (no value) (units unknown) (unknown) Result panel 5 (unknown) (no date) (unknown) [facility] (no value) (units unknown) (unknown) Result panel 6 (unknown) (no date) (unknown) [facility] (no value) (units unknown) (unknown) Result panel 7 (unknown) (no date) (unknown) [facility] (no value) (units unknown) (unknown) Result panel 8 (unknown) (no date) (unknown) [facility] (no value) (units unknown) (unknown) Result panel 9 (unknown) (no date) (unknown) [facility] (no value) (units unknown) (unknown) Result panel 10 (unknown) (no date) (unknown) [facility] (no value) (units unknown) (unknown) Result panel 11 (unknown) (no date) (unknown) [facility] (no value) (units unknown) (unknown) Result panel 12 (unknown) (no date) (unknown) [facility] (no value) (units unknown) (unknown) Result panel 13 (unknown) (no date) (unknown) [facility] (no value) (units unknown) (unknown) Result panel 14 (unknown) (no date) (unknown) [facility] (no value) (units unknown) (unknown) Result panel 15 (unknown) (no date) (unknown) [facility] (no value) (units unknown) (unknown) Result panel 16 (unknown) (no date) (unknown) [facility] (no value) (units unknown) (unknown) Result panel 17 (unknown) (no date) (unknown) [facility] (no value) (units unknown) (unknown) Result panel 18 (unknown) (no date) (unknown) [facility] (no value) (units unknown) (unknown) Result panel 19 (unknown) (no date) (unknown) [facility] (no value) (units unknown) (unknown) Result panel 20 (unknown) (no date) (unknown) [facility] (no value) (units unknown) (unknown) Result panel 21 (unknown) (no date) (unknown) [facility] (no value) (units unknown) (unknown) Result panel 22 (unknown) (no date) (unknown) [facility] (no value) (units unknown) (unknown) Result panel 23 (unknown) (no date) (unknown) [facility] (no value) (units unknown) (unknown) Result panel 24 (unknown) (no date) (unknown) [facility] (no value) (units unknown) (unknown) Result panel 25 (unknown) (no date) (unknown) [facility] (no value) (units unknown) (unknown) Result panel 26 (unknown) (no date) (unknown) [facility] (no value) (units unknown) (unknown) Result panel 27 (unknown) (no date) (unknown) [facility] (no value) (units unknown) (unknown) Result panel 28 (unknown) (no date) (unknown) [facility] (no value) (units unknown) (unknown) Result panel 29 (unknown) (no date) (unknown) [facility] (no value) (units unknown) (unknown) Result panel 30 (unknown) (no date) (unknown) [facility] (no value) (units unknown) (unknown) Result panel 31 (unknown) (no date) (unknown) [facility] (no value) (units unknown) (unknown) Result panel 32 (unknown) (no date) (unknown) [facility] (no value) (units unknown) (unknown) Result panel 33 (unknown) (no date) (unknown) [facility] (no value) (units unknown) (unknown) Result panel 34 (unknown) (no date) (unknown) [facility] (no value) (units unknown) (unknown) Result panel 35 (unknown) (no date) (unknown) [facility] (no value) (units unknown) (unknown) Result panel 36 (unknown) (no date) (unknown) [facility] (no value) (units unknown) (unknown) Result panel 37 (unknown) (no date) (unknown) [facility] (no value) (units unknown) (unknown) Result panel 38 (unknown) (no date) (unknown) [facility] (no value) (units unknown) (unknown) Result panel 39 (unknown) (no date) (unknown) [facility] (no value) (units unknown) (unknown) Result panel 40 (unknown) (no date) (unknown) [facility] (no value) (units unknown) (unknown) Result panel 41 (unknown) (no date) (unknown) [facility] (no value) (units unknown) (unknown) Result panel 42 (unknown) (no date) (unknown) [facility] (no value) (units unknown) (unknown) Result panel 43 (unknown) (no date) (unknown) [facility] (no value) (units unknown) (unknown) Result panel 44 (unknown) (no date) (unknown) [facility] (no value) (units unknown) (unknown) Result panel 45 (unknown) (no date) (unknown) [facility] (no value) (units unknown) (unknown) Result panel 46 (unknown) (no date) (unknown) [facility] (no value) (units unknown) (unknown) Result panel 47 (unknown) (no date) (unknown) [facility] (no value) (units unknown) (unknown) Result panel 48 (unknown) (no date) (unknown) [facility] (no value) (units unknown) (unknown) Result panel 49 (unknown) (no date) (unknown) [facility] (no value) (units unknown) (unknown) Result panel 50 (unknown) (no date) (unknown) [facility] (no value) (units unknown) (unknown) Result panel 51 (unknown) (no date) (unknown) [facility] (no value) (units unknown) (unknown) Result panel 52 (unknown) (no date) (unknown) [facility] (no value) (units unknown) (unknown) Result panel 53 (unknown) (no date) (unknown) [facility] (no value) (units unknown) (unknown) Result panel 54 (unknown) (no date) (unknown) [facility] (no value) (units unknown) (unknown) Result panel 55 (unknown) (no date) (unknown) [facility] (no value) (units unknown) (unknown) Result panel 56 (unknown) (no date) (unknown) [facility] (no value) (units unknown) (unknown) Result panel 57 (unknown) (no date) (unknown) [facility] (no value) (units unknown) (unknown) Result panel 58 (unknown) (no date) (unknown) [facility] (no value) (units unknown) (unknown) Result panel 59 (unknown) (no date) (unknown) [facility] (no value) (units unknown) (unknown) Result panel 60 (unknown) (no date) (unknown) [facility] (no value) (units unknown) (unknown) Result panel 61 (unknown) (no date) (unknown) [facility] (no value) (units unknown) (unknown) Result panel 62 (unknown) (no date) (unknown) [facility] (no value) (units unknown) (unknown) Result panel 63 (unknown) (no date) (unknown) [facility] (no value) (units unknown) (unknown) Result panel 64 (unknown) (no date) (unknown) [facility] (no value) (units unknown) (unknown) Result panel 65 (unknown) (no date) (unknown) [facility] (no value) (units unknown) (unknown) Result panel 66 (unknown) (no date) (unknown) [facility] (no value) (units unknown) (unknown) Result panel 67 (unknown) (no date) (unknown) [facility] (no value) (units unknown) (unknown) Result panel 68 (unknown) (no date) (unknown) [facility] (no value) (units unknown) (unknown) Result panel 69 (unknown) (no date) (unknown) [facility] (no value) (units unknown) (unknown) Result panel 70 (unknown) (no date) (unknown) [facility] (no value) (units unknown) (unknown) Result panel 71 (unknown) (no date) (unknown) [facility] (no value) (units unknown) (unknown) Result panel 72 (unknown) (no date) (unknown) [facility] (no value) (units unknown) (unknown) Result panel 73 (unknown) (no date) (unknown) [facility] (no value) (units unknown) (unknown) Result panel 74 (unknown) (no date) (unknown) [facility] (no value) (units unknown) (unknown) Result panel 75 (unknown) (no date) (unknown) [facility] (no value) (units unknown) (unknown) Result panel 76 (unknown) (no date) (unknown) [facility] (no value) (units unknown) (unknown) Result panel 77 (unknown) (no date) (unknown) [facility] (no value) (units unknown) (unknown) Result panel 78 (unknown) (no date) (unknown) [facility] (no value) (units unknown) (unknown) Result panel 79 (unknown) (no date) (unknown) [facility] (no value) (units unknown) (unknown) Result panel 80 (unknown) (no date) (unknown) [facility] (no value) (units unknown) (unknown) Result panel 81 (unknown) (no date) (unknown) [facility] (no value) (units unknown) (unknown) Result panel 82 (unknown) (no date) (unknown) [facility] (no value) (units unknown) (unknown) Result panel 83 (unknown) (no date) (unknown) [facility] (no value) (units unknown) (unknown) Result panel 84 (unknown) (no date) (unknown) [facility] (no value) (units unknown) (unknown) Result panel 85 (unknown) (no date) (unknown) [facility] (no value) (units unknown) (unknown) Result panel 86 (unknown) (no date) (unknown) [facility] (no value) (units unknown) (unknown) Result panel 87 (unknown) (no date) (unknown) [facility] (no value) (units unknown) (unknown) Result panel 88 (unknown) (no date) (unknown) [facility] (no value) (units unknown) (unknown) Result panel 89 (unknown) (no date) (unknown) [facility] (no value) (units unknown) (unknown) Result panel 90 (unknown) (no date) (unknown) [facility] (no value) (units unknown) (unknown) Result panel 91 (unknown) (no date) (unknown) [facility] (no value) (units unknown) (unknown) Result panel 92 (unknown) (no date) (unknown) [facility] (no value) (units unknown) (unknown) Result panel 93 (unknown) (no date) (unknown) [facility] (no value) (units unknown) (unknown) Result panel 94 (unknown) (no date) (unknown) [facility] (no value) (units unknown) (unknown) Result panel 95 (unknown) (no date) (unknown) [facility] (no value) (units unknown) (unknown) Result panel 96 (unknown) (no date) (unknown) [facility] (no value) (units unknown) (unknown) Result panel 97 (unknown) (no date) (unknown) [facility] (no value) (units unknown) (unknown) Result panel 98 (unknown) (no date) (unknown) [facility] (no value) (units unknown) (unknown) Result panel 99 (unknown) (no date) (unknown) [facility] (no value) (units unknown) (unknown) Result panel 100 (unknown) (no date) (unknown) [facility] (no value) (units unknown) (unknown) Result panel 101 (unknown) (no date) (unknown) [facility] (no value) (units unknown) (unknown) Result panel 102 (unknown) (no date) (unknown) [facility] (no value) (units unknown) (unknown) Result panel 103 (unknown) (no date) (unknown) [facility] (no value) (units unknown) (unknown) Result panel 104 (unknown) (no date) (unknown) [facility] (no value) (units unknown) (unknown) Result panel 105 (unknown) (no date) (unknown) [facility] (no value) (units unknown) (unknown) Result panel 106 (unknown) (no date) (unknown) [facility] (no value) (units unknown) (unknown) Result panel 107 (unknown) (no date) (unknown) [facility] (no value) (units unknown) (unknown) Result panel 108 (unknown) (no date) (unknown) [facility] (no value) (units unknown) (unknown) Result panel 109 (unknown) (no date) (unknown) [facility] (no value) (units unknown) (unknown) Result panel 110 (unknown) (no date) (unknown) [facility] (no value) (units unknown) (unknown) Result panel 111 (unknown) (no date) (unknown) [facility] (no value) (units unknown) (unknown) Result panel 112 (unknown) (no date) (unknown) [facility] (no value) (units unknown) (unknown) Result panel 113 (unknown) (no date) (unknown) [facility] (no value) (units unknown) (unknown) Result panel 114 (unknown) (no date) (unknown) [facility] (no value) (units unknown) (unknown) Result panel 115 (unknown) (no date) (unknown) [facility] (no value) (units unknown) (unknown) Result panel 116 (unknown) (no date) (unknown) [facility] (no value) (units unknown) (unknown) Result panel 117 (unknown) (no date) (unknown) [facility] (no value) (units unknown) (unknown) Result panel 118 (unknown) (no date) (unknown) [facility] (no value) (units unknown) (unknown) Result panel 119 (unknown) (no date) (unknown) [facility] (no value) (units unknown) (unknown) Result panel 120 (unknown) (no date) (unknown) [facility] (no value) (units unknown) (unknown) Result panel 121 (unknown) (no date) (unknown) [facility] (no value) (units unknown) (unknown) Result panel 122 (unknown) (no date) (unknown) [facility] (no value) (units unknown) (unknown) Result panel 123 (unknown) (no date) (unknown) [facility] (no value) (units unknown) (unknown) Result panel 124 (unknown) (no date) (unknown) [facility] (no value) (units unknown) (unknown) Result panel 125 (unknown) (no date) (unknown) [facility] (no value) (units unknown) (unknown) Result panel 126 (unknown) (no date) (unknown) [facility] (no value) (units unknown) (unknown) Result panel 127 (unknown) (no date) (unknown) [facility] (no value) (units unknown) (unknown) Result panel 128 (unknown) (no date) (unknown) [facility] (no value) (units unknown) (unknown) Result panel 129 (unknown) (no date) (unknown) [facility] (no value) (units unknown) (unknown) Result panel 130 (unknown) (no date) (unknown) [facility] (no value) (units unknown) (unknown) Result panel 131 (unknown) (no date) (unknown) [facility] (no value) (units unknown) (unknown) Result panel 132 (unknown) (no date) (unknown) [facility] (no value) (units unknown) (unknown) Result panel 133 (unknown) (no date) (unknown) [facility] (no value) (units unknown) (unknown) Result panel 134 (unknown) (no date) (unknown) [facility] (no value) (units unknown) (unknown) Result panel 135 (unknown) (no date) (unknown) [facility] (no value) (units unknown) (unknown) Result panel 136 (unknown) (no date) (unknown) [facility] (no value) (units unknown) (unknown) Result panel 137 (unknown) (no date) (unknown) [facility] (no value) (units unknown) (unknown) Result panel 138 (unknown) (no date) (unknown) [facility] (no value) (units unknown) (unknown) Result panel 139 (unknown) (no date) (unknown) [facility] (no value) (units unknown) (unknown) Result panel 140 (unknown) (no date) (unknown) [facility] (no value) (units unknown) (unknown) Result panel 141 (unknown) (no date) (unknown) [facility] (no value) (units unknown) (unknown) Result panel 142 (unknown) (no date) (unknown) [facility] (no value) (units unknown) (unknown) Result panel 143 (unknown) (no date) (unknown) [facility] (no value) (units unknown) (unknown) Result panel 144 (unknown) (no date) (unknown) [facility] (no value) (units unknown) (unknown) Result panel 145 (unknown) (no date) (unknown) [facility] (no value) (units unknown) (unknown) Result panel 146 (unknown) (no date) (unknown) [facility] (no value) (units unknown) (unknown) Result panel 147 (unknown) (no date) (unknown) [facility] (no value) (units unknown) (unknown) Result panel 148 (unknown) (no date) (unknown) [facility] (no value) (units unknown) (unknown) Result panel 149 (unknown) (no date) (unknown) [facility] (no value) (units unknown) (unknown) Result panel 150 (unknown) (no date) (unknown) [facility] (no value) (units unknown) (unknown) Result panel 151 (unknown) (no date) (unknown) [facility] (no value) (units unknown) (unknown) Result panel 152 (unknown) (no date) (unknown) [facility] (no value) (units unknown) (unknown) Result panel 153 (unknown) (no date) (unknown) [facility] (no value) (units unknown) (unknown) Result panel 154 (unknown) (no date) (unknown) [facility] (no value) (units unknown) (unknown) Result panel 155 (unknown) (no date) (unknown) [facility] (no value) (units unknown) (unknown) Result panel 156 (unknown) (no date) (unknown) [facility] (no value) (units unknown) (unknown) Result panel 157 (unknown) (no date) (unknown) [facility] (no value) (units unknown) (unknown) Result panel 158 (unknown) (no date) (unknown) [facility] (no value) (units unknown) (unknown) Result panel 159 (unknown) (no date) (unknown) [facility] (no value) (units unknown) (unknown) Result panel 160 (unknown) (no date) (unknown) [facility] (no value) (units unknown) (unknown) Result panel 161 (unknown) (no date) (unknown) [facility] (no value) (units unknown) (unknown) Result panel 162 (unknown) (no date) (unknown) [facility] (no value) (units unknown) (unknown) Result panel 163 (unknown) (no date) (unknown) [facility] (no value) (units unknown) (unknown) Result panel 164 (unknown) (no date) (unknown) [facility] (no value) (units unknown) (unknown) Result panel 165 (unknown) (no date) (unknown) [facility] (no value) (units unknown) (unknown) Result panel 166 (unknown) (no date) (unknown) [facility] (no value) (units unknown) (unknown) Result panel 167 (unknown) (no date) (unknown) [facility] (no value) (units unknown) (unknown) Result panel 168 (unknown) (no date) (unknown) [facility] (no value) (units unknown) (unknown) Result panel 169 (unknown) (no date) (unknown) [facility] (no value) (units unknown) (unknown) Result panel 170 (unknown) (no date) (unknown) [facility] (no value) (units unknown) (unknown) Result panel 171 (unknown) (no date) (unknown) [facility] (no value) (units unknown) (unknown) Result panel 172 (unknown) (no date) (unknown) [facility] (no value) (units unknown) (unknown) Result panel 173 (unknown) (no date) (unknown) [facility] (no value) (units unknown) (unknown) Result panel 174 (unknown) (no date) (unknown) [facility] (no value) (units unknown) (unknown) Result panel 175 (unknown) (no date) (unknown) [facility] (no value) (units unknown) (unknown) Result panel 176 (unknown) (no date) (unknown) [facility] (no value) (units unknown) (unknown) Result panel 177 (unknown) (no date) (unknown) [facility] (no value) (units unknown) (unknown) Result panel 178 (unknown) (no date) (unknown) [facility] (no value) (units unknown) (unknown) Result panel 179 (unknown) (no date) (unknown) [facility] (no value) (units unknown) (unknown) Result panel 180 (unknown) (no date) (unknown) [facility] (no value) (units unknown) (unknown) Result panel 181 (unknown) (no date) (unknown) [facility] (no value) (units unknown) (unknown) Result panel 182 (unknown) (no date) (unknown) [facility] (no value) (units unknown) (unknown) Result panel 183 (unknown) (no date) (unknown) [facility] (no value) (units unknown) (unknown) Result panel 184 (unknown) (no date) (unknown) [facility] (no value) (units unknown) (unknown) Result panel 185 (unknown) (no date) (unknown) [facility] (no value) (units unknown) (unknown) Result panel 186 (unknown) (no date) (unknown) [facility] (no value) (units unknown) (unknown) Result panel 187 (unknown) (no date) (unknown) [facility] (no value) (units unknown) (unknown) Result panel 188 (unknown) (no date) (unknown) [facility] (no value) (units unknown) (unknown) Result panel 189 (unknown) (no date) (unknown) [facility] (no value) (units unknown) (unknown) Result panel 190 (unknown) (no date) (unknown) [facility] (no value) (units unknown) (unknown) Result panel 191 (unknown) (no date) (unknown) [facility] (no value) (units unknown) (unknown) Result panel 192 (unknown) (no date) (unknown) [facility] (no value) (units unknown) (unknown) Result panel 193 (unknown) (no date) (unknown) [facility] (no value) (units unknown) (unknown) Result panel 194 (unknown) (no date) (unknown) [facility] (no value) (units unknown) (unknown) Result panel 195 (unknown) (no date) (unknown) [facility] (no value) (units unknown) (unknown) Result panel 196 (unknown) (no date) (unknown) [facility] (no value) (units unknown) (unknown) Result panel 197 (unknown) (no date) (unknown) [facility] (no value) (units unknown) (unknown) Result panel 198 (unknown) (no date) (unknown) [facility] (no value) (units unknown) (unknown) Result panel 199 (unknown) (no date) (unknown) [facility] (no value) (units unknown) (unknown) Result panel 200 (unknown) (no date) (unknown) [facility] (no value) (units unknown) (unknown) Result panel 201 (unknown) (no date) (unknown) [facility] (no value) (units unknown) (unknown) Result panel 202 (unknown) (no date) (unknown) [facility] (no value) (units unknown) (unknown) Result panel 203 (unknown) (no date) (unknown) [facility] (no value) (units unknown) (unknown) Result panel 204 (unknown) (no date) (unknown) [facility] (no value) (units unknown) (unknown) Result panel 205 (unknown) (no date) (unknown) [facility] (no value) (units unknown) (unknown) Result panel 206 (unknown) (no date) (unknown) [facility] (no value) (units unknown) (unknown) Result panel 207 (unknown) (no date) (unknown) [facility] (no value) (units unknown) (unknown) Result panel 208 (unknown) (no date) (unknown) [facility] (no value) (units unknown) (unknown) Result panel 209 (unknown) (no date) (unknown) [facility] (no value) (units unknown) (unknown) Result panel 210 (unknown) (no date) (unknown) [facility] (no value) (units unknown) (unknown) Result panel 211 (unknown) (no date) (unknown) [facility] (no value) (units unknown) (unknown) Result panel 212 (unknown) (no date) (unknown) [facility] (no value) (units unknown) (unknown) Result panel 213 (unknown) (no date) (unknown) [facility] (no value) (units unknown) (unknown) Result panel 214 (unknown) (no date) (unknown) [facility] (no value) (units unknown) (unknown) Result panel 215 (unknown) (no date) (unknown) [facility] (no value) (units unknown) (unknown) Result panel 216 (unknown) (no date) (unknown) [facility] (no value) (units unknown) (unknown) Result panel 217 (unknown) (no date) (unknown) [facility] (no value) (units unknown) (unknown) Result panel 218 (unknown) (no date) (unknown) [facility] (no value) (units unknown) (unknown) Result panel 219 (unknown) (no date) (unknown) [facility] (no value) (units unknown) (unknown) Result panel 220 (unknown) (no date) (unknown) [facility] (no value) (units unknown) (unknown) Result panel 221 (unknown) (no date) (unknown) [facility] (no value) (units unknown) (unknown) Result panel 222 (unknown) (no date) (unknown) [facility] (no value) (units unknown) (unknown) Result panel 223 (unknown) (no date) (unknown) [facility] (no value) (units unknown) (unknown) Result panel 224 (unknown) (no date) (unknown) [facility] (no value) (units unknown) (unknown) Result panel 225 (unknown) (no date) (unknown) [facility] (no value) (units unknown) (unknown) Result panel 226 (unknown) (no date) (unknown) [facility] (no value) (units unknown) (unknown) Result panel 227 (unknown) (no date) (unknown) [facility] (no value) (units unknown) (unknown) Result panel 228 (unknown) (no date) (unknown) [facility] (no value) (units unknown) (unknown) Result panel 229 (unknown) (no date) (unknown) [facility] (no value) (units unknown) (unknown) Result panel 230 (unknown) (no date) (unknown) [facility] (no value) (units unknown) (unknown) Result panel 231 (unknown) (no date) (unknown) [facility] (no value) (units unknown) (unknown) Result panel 232 (unknown) (no date) (unknown) [facility] (no value) (units unknown) (unknown) Result panel 233 (unknown) (no date) (unknown) [facility] (no value) (units unknown) (unknown) Result panel 234 (unknown) (no date) (unknown) [facility] (no value) (units unknown) (unknown) Result panel 235 (unknown) (no date) (unknown) [facility] (no value) (units unknown) (unknown) Result panel 236 (unknown) (no date) (unknown) [facility] (no value) (units unknown) (unknown) Result panel 237 (unknown) (no date) (unknown) [facility] (no value) (units unknown) (unknown) Result panel 238 (unknown) (no date) (unknown) [facility] (no value) (units unknown) (unknown) Result panel 239 (unknown) (no date) (unknown) [facility] (no value) (units unknown) (unknown) Result panel 240 (unknown) (no date) (unknown) [facility] (no value) (units unknown) (unknown) Result panel 241 (unknown) (no date) (unknown) [facility] (no value) (units unknown) (unknown) Result panel 242 (unknown) (no date) (unknown) [facility] (no value) (units unknown) (unknown) Result panel 243 (unknown) (no date) (unknown) [facility] (no value) (units unknown) (unknown) Result panel 244 (unknown) (no date) (unknown) [facility] (no value) (units unknown) (unknown) Result panel 245 (unknown) (no date) (unknown) [facility] (no value) (units unknown) (unknown) Result panel 246 (unknown) (no date) (unknown) [facility] (no value) (units unknown) (unknown) Result panel 247 (unknown) (no date) (unknown) [facility] (no value) (units unknown) (unknown) Result panel 248 (unknown) (no date) (unknown) [facility] (no value) (units unknown) (unknown) Result panel 249 (unknown) (no date) (unknown) [facility] (no value) (units unknown) (unknown) Result panel 250 (unknown) (no date) (unknown) [facility] (no value) (units unknown) (unknown) Result panel 251 (unknown) (no date) (unknown) [facility] (no value) (units unknown) (unknown) Result panel 252 (unknown) (no date) (unknown) [facility] (no value) (units unknown) (unknown) Result panel 253 (unknown) (no date) (unknown) [facility] (no value) (units unknown) (unknown) Result panel 254 (unknown) (no date) (unknown) [facility] (no value) (units unknown) (unknown) Result panel 255 (unknown) (no date) (unknown) [facility] (no value) (units unknown) (unknown) Result panel 256 (unknown) (no date) (unknown) [facility] (no value) (units unknown) (unknown) Result panel 257 (unknown) (no date) (unknown) [facility] (no value) (units unknown) (unknown) Result panel 258 (unknown) (no date) (unknown) [facility] (no value) (units unknown) (unknown) Result panel 259 (unknown) (no date) (unknown) [facility] (no value) (units unknown) (unknown) Result panel 260 (unknown) (no date) (unknown) [facility] (no value) (units unknown) (unknown) Result panel 261 (unknown) (no date) (unknown) [facility] (no value) (units unknown) (unknown) Result panel 262 (unknown) (no date) (unknown) [facility] (no value) (units unknown) (unknown) Result panel 263 (unknown) (no date) (unknown) [facility] (no value) (units unknown) (unknown) Result panel 264 (unknown) (no date) (unknown) [facility] (no value) (units unknown) (unknown) Result panel 265 (unknown) (no date) (unknown) [facility] (no value) (units unknown) (unknown) Result panel 266 (unknown) (no date) (unknown) [facility] (no value) (units unknown) (unknown) Result panel 267 (unknown) (no date) (unknown) [facility] (no value) (units unknown) (unknown) Result panel 268 (unknown) (no date) (unknown) [facility] (no value) (units unknown) (unknown) Result panel 269 (unknown) (no date) (unknown) [facility] (no value) (units unknown) (unknown) Result panel 270 (unknown) (no date) (unknown) [facility] (no value) (units unknown) (unknown) Result panel 271 (unknown) (no date) (unknown) [facility] (no value) (units unknown) (unknown) Result panel 272 (unknown) (no date) (unknown) [facility] (no value) (units unknown) (unknown) Result panel 273 (unknown) (no date) (unknown) [facility] (no value) (units unknown) (unknown) Result panel 274 (unknown) (no date) (unknown) [facility] (no value) (units unknown) (unknown) Result panel 275 (unknown) (no date) (unknown) [facility] (no value) (units unknown) (unknown) Result panel 276 (unknown) (no date) (unknown) [facility] (no value) (units unknown) (unknown) Result panel 277 (unknown) (no date) (unknown) [facility] (no value) (units unknown) (unknown) Result panel 278 (unknown) (no date) (unknown) [facility] (no value) (units unknown) (unknown) Result panel 279 (unknown) (no date) (unknown) [facility] (no value) (units unknown) (unknown) Result panel 280 (unknown) (no date) (unknown) [facility] (no value) (units unknown) (unknown) Result panel 281 (unknown) (no date) (unknown) [facility] (no value) (units unknown) (unknown) Result panel 282 (unknown) (no date) (unknown) [facility] (no value) (units unknown) (unknown) Result panel 283 (unknown) (no date) (unknown) [facility] (no value) (units unknown) (unknown) Result panel 284 (unknown) (no date) (unknown) [facility] (no value) (units unknown) (unknown) Result panel 285 (unknown) (no date) (unknown) [facility] (no value) (units unknown) (unknown) Result panel 286 (unknown) (no date) (unknown) [facility] (no value) (units unknown) (unknown) Result panel 287 (unknown) (no date) (unknown) [facility] (no value) (units unknown) (unknown) Result panel 288 (unknown) (no date) (unknown) [facility] (no value) (units unknown) (unknown) Result panel 289 (unknown) (no date) (unknown) [facility] (no value) (units unknown) (unknown) Result panel 290 (unknown) (no date) (unknown) [facility] (no value) (units unknown) (unknown) Result panel 291 (unknown) (no date) (unknown) [facility] (no value) (units unknown) (unknown) Result panel 292 (unknown) (no date) (unknown) [facility] (no value) (units unknown) (unknown) Result panel 293 (unknown) (no date) (unknown) [facility] (no value) (units unknown) (unknown) Result panel 294 (unknown) (no date) (unknown) [facility] (no value) (units unknown) (unknown) Result panel 295 (unknown) (no date) (unknown) [facility] (no value) (units unknown) (unknown) Result panel 296 (unknown) (no date) (unknown) [facility] (no value) (units unknown) (unknown) Result panel 297 (unknown) (no date) (unknown) [facility] (no value) (units unknown) (unknown) Result panel 298 (unknown) (no date) (unknown) [facility] (no value) (units unknown) (unknown) Result panel 299 (unknown) (no date) (unknown) [facility] (no value) (units unknown) (unknown) Result panel 300 (unknown) (no date) (unknown) [facility] (no value) (units unknown) (unknown) Result panel 301 (unknown) (no date) (unknown) [facility] (no value) (units unknown) (unknown) Result panel 302 (unknown) (no date) (unknown) [facility] (no value) (units unknown) (unknown) Result panel 303 (unknown) (no date) (unknown) [facility] (no value) (units unknown) (unknown) Result panel 304 (unknown) (no date) (unknown) [facility] (no value) (units unknown) (unknown) Result panel 305 (unknown) (no date) (unknown) [facility] (no value) (units unknown) (unknown) Result panel 306 (unknown) (no date) (unknown) [facility] (no value) (units unknown) (unknown) Result panel 307 (unknown) (no date) (unknown) [facility] (no value) (units unknown) (unknown) Result panel 308 (unknown) (no date) (unknown) [facility] (no value) (units unknown) (unknown) Result panel 309 (unknown) (no date) (unknown) [facility] (no value) (units unknown) (unknown) Result panel 310 (unknown) (no date) (unknown) [facility] (no value) (units unknown) (unknown) Result panel 311 (unknown) (no date) (unknown) [facility] (no value) (units unknown) (unknown) Result panel 312 (unknown) (no date) (unknown) [facility] (no value) (units unknown) (unknown) Result panel 313 (unknown) (no date) (unknown) [facility] (no value) (units unknown) (unknown) Result panel 314 (unknown) (no date) (unknown) [facility] (no value) (units unknown) (unknown) Result panel 315 (unknown) (no date) (unknown) [facility] (no value) (units unknown) (unknown) Result panel 316 (unknown) (no date) (unknown) [facility] (no value) (units unknown) (unknown) Result panel 317 (unknown) (no date) (unknown) [facility] (no value) (units unknown) (unknown) Result panel 318 (unknown) (no date) (unknown) [facility] (no value) (units unknown) (unknown) Result panel 319 (unknown) (no date) (unknown) [facility] (no value) (units unknown) (unknown) Result panel 320 (unknown) (no date) (unknown) [facility] (no value) (units unknown) (unknown) Result panel 321 (unknown) (no date) (unknown) [facility] (no value) (units unknown) (unknown) Result panel 322 (unknown) (no date) (unknown) [facility] (no value) (units unknown) (unknown) Result panel 323 (unknown) (no date) (unknown) [facility] (no value) (units unknown) (unknown) Result panel 324 (unknown) (no date) (unknown) [facility] (no value) (units unknown) (unknown) Result panel 325 (unknown) (no date) (unknown) [facility] (no value) (units unknown) (unknown) Result panel 326 (unknown) (no date) (unknown) [facility] (no value) (units unknown) (unknown) Result panel 327 (unknown) (no date) (unknown) [facility] (no value) (units unknown) (unknown) Result panel 328 (unknown) (no date) (unknown) [facility] (no value) (units unknown) (unknown) Result panel 329 (unknown) (no date) (unknown) [facility] (no value) (units unknown) (unknown) Result panel 330 (unknown) (no date) (unknown) [facility] (no value) (units unknown) (unknown) Result panel 331 (unknown) (no date) (unknown) [facility] (no value) (units unknown) (unknown) Result panel 332 (unknown) (no date) (unknown) [facility] (no value) (units unknown) (unknown) Result panel 333 (unknown) (no date) (unknown) [facility] (no value) (units unknown) (unknown) Result panel 334 (unknown) (no date) (unknown) [facility] (no value) (units unknown) (unknown) Result panel 335 (unknown) (no date) (unknown) [facility] (no value) (units unknown) (unknown) Result panel 336 (unknown) (no date) (unknown) [facility] (no value) (units unknown) (unknown) Result panel 337 (unknown) (no date) (unknown) [facility] (no value) (units unknown) (unknown) Result panel 338 (unknown) (no date) (unknown) [facility] (no value) (units unknown) (unknown) Result panel 339 (unknown) (no date) (unknown) [facility] (no value) (units unknown) (unknown) Result panel 340 (unknown) (no date) (unknown) [facility] (no value) (units unknown) (unknown) Result panel 341 (unknown) (no date) (unknown) [facility] (no value) (units unknown) (unknown) Result panel 342 (unknown) (no date) (unknown) [facility] (no value) (units unknown) (unknown) Result panel 343 (unknown) (no date) (unknown) [facility] (no value) (units unknown) (unknown) Result panel 344 (unknown) (no date) (unknown) [facility] (no value) (units unknown) (unknown) Result panel 345 (unknown) (no date) (unknown) [facility] (no value) (units unknown) (unknown) Result panel 346 (unknown) (no date) (unknown) [facility] (no value) (units unknown) (unknown) Result panel 347 (unknown) (no date) (unknown) [facility] (no value) (units unknown) (unknown) Result panel 348 (unknown) (no date) (unknown) [facility] (no value) (units unknown) (unknown) Result panel 349 (unknown) (no date) (unknown) [facility] (no value) (units unknown) (unknown) Result panel 350 (unknown) (no date) (unknown) [facility] (no value) (units unknown) (unknown) Result panel 351 (unknown) (no date) (unknown) [facility] (no value) (units unknown) (unknown) Result panel 352 (unknown) (no date) (unknown) [facility] (no value) (units unknown) (unknown) Result panel 353 (unknown) (no date) (unknown) [facility] (no value) (units unknown) (unknown) Result panel 354 (unknown) (no date) (unknown) [facility] (no value) (units unknown) (unknown) Result panel 355 (unknown) (no date) (unknown) [facility] (no value) (units unknown) (unknown) Result panel 356 (unknown) (no date) (unknown) [facility] (no value) (units unknown) (unknown) Result panel 357 (unknown) (no date) (unknown) [facility] (no value) (units unknown) (unknown) Result panel 358 (unknown) (no date) (unknown) [facility] (no value) (units unknown) (unknown) Result panel 359 (unknown) (no date) (unknown) [facility] (no value) (units unknown) (unknown) Result panel 360 (unknown) (no date) (unknown) [facility] (no value) (units unknown) (unknown) Result panel 361 (unknown) (no date) (unknown) [facility] (no value) (units unknown) (unknown) Result panel 362 (unknown) (no date) (unknown) [facility] (no value) (units unknown) (unknown) Result panel 363 (unknown) (no date) (unknown) [facility] (no value) (units unknown) (unknown) Result panel 364 (unknown) (no date) (unknown) [facility] (no value) (units unknown) (unknown) Result panel 365 (unknown) (no date) (unknown) [facility] (no value) (units unknown) (unknown) Result panel 366 (unknown) (no date) (unknown) [facility] (no value) (units unknown) (unknown) Result panel 367 (unknown) (no date) (unknown) [facility] (no value) (units unknown) (unknown) Result panel 368 (unknown) (no date) (unknown) [facility] (no value) (units unknown) (unknown) Result panel 369 (unknown) (no date) (unknown) [facility] (no value) (units unknown) (unknown) Result panel 370 (unknown) (no date) (unknown) [facility] (no value) (units unknown) (unknown) Result panel 371 (unknown) (no date) (unknown) [facility] (no value) (units unknown) (unknown) Result panel 372 (unknown) (no date) (unknown) [facility] (no value) (units unknown) (unknown) Result panel 373 (unknown) (no date) (unknown) [facility] (no value) (units unknown) (unknown) Result panel 374 (unknown) (no date) (unknown) [facility] (no value) (units unknown) (unknown) Result panel 375 (unknown) (no date) (unknown) [facility] (no value) (units unknown) (unknown) Result panel 376 (unknown) (no date) (unknown) [facility] (no value) (units unknown) (unknown) Result panel 377 (unknown) (no date) (unknown) [facility] (no value) (units unknown) (unknown) Result panel 378 (unknown) (no date) (unknown) [facility] (no value) (units unknown) (unknown) Result panel 379 (unknown) (no date) (unknown) [facility] (no value) (units unknown) (unknown) Result panel 380 (unknown) (no date) (unknown) [facility] (no value) (units unknown) (unknown) Result panel 381 (unknown) (no date) (unknown) [facility] (no value) (units unknown) (unknown) Result panel 382 (unknown) (no date) (unknown) [facility] (no value) (units unknown) (unknown) Result panel 383 (unknown) (no date) (unknown) [facility] (no value) (units unknown) (unknown) Result panel 384 (unknown) (no date) (unknown) [facility] (no value) (units unknown) (unknown) Result panel 385 (unknown) (no date) (unknown) [facility] (no value) (units unknown) (unknown) Result panel 386 (unknown) (no date) (unknown) [facility] (no value) (units unknown) (unknown) Result panel 387 (unknown) (no date) (unknown) [facility] (no value) (units unknown) (unknown) Result panel 388 (unknown) (no date) (unknown) [facility] (no value) (units unknown) (unknown) Result panel 389 (unknown) (no date) (unknown) [facility] (no value) (units unknown) (unknown) Result panel 390 (unknown) (no date) (unknown) [facility] (no value) (units unknown) (unknown) Result panel 391 (unknown) (no date) (unknown) [facility] (no value) (units unknown) (unknown) Result panel 392 (unknown) (no date) (unknown) [facility] (no value) (units unknown) (unknown) Result panel 393 (unknown) (no date) (unknown) [facility] (no value) (units unknown) (unknown) Result panel 394 (unknown) (no date) (unknown) [facility] (no value) (units unknown) (unknown) Result panel 395 (unknown) (no date) (unknown) [facility] (no value) (units unknown) (unknown) Result panel 396 (unknown) (no date) (unknown) [facility] (no value) (units unknown) (unknown) Result panel 397 (unknown) (no date) (unknown) [facility] (no value) (units unknown) (unknown) Result panel 398 (unknown) (no date) (unknown) [facility] (no value) (units unknown) (unknown) Result panel 399 (unknown) (no date) (unknown) [facility] (no value) (units unknown) (unknown) Result panel 400 (unknown) (no date) (unknown) [facility] (no value) (units unknown) (unknown) Result panel 401 (unknown) (no date) (unknown) [facility] (no value) (units unknown) (unknown) Result panel 402 (unknown) (no date) (unknown) [facility] (no value) (units unknown) (unknown) Result panel 403 (unknown) (no date) (unknown) [facility] (no value) (units unknown) (unknown) Result panel 404 (unknown) (no date) (unknown) [facility] (no value) (units unknown) (unknown) Result panel 405 (unknown) (no date) (unknown) [facility] (no value) (units unknown) (unknown) Result panel 406 (unknown) (no date) (unknown) [facility] (no value) (units unknown) (unknown) Result panel 407 (unknown) (no date) (unknown) [facility] (no value) (units unknown) (unknown) Result panel 408 (unknown) (no date) (unknown) [facility] (no value) (units unknown) (unknown) Result panel 409 (unknown) (no date) (unknown) [facility] (no value) (units unknown) (unknown) Result panel 410 (unknown) (no date) (unknown) [facility] (no value) (units unknown) (unknown) Result panel 411 (unknown) (no date) (unknown) [facility] (no value) (units unknown) (unknown) Result panel 412 (unknown) (no date) (unknown) [facility] (no value) (units unknown) (unknown) Result panel 413 (unknown) (no date) (unknown) [facility] (no value) (units unknown) (unknown) Result panel 414 (unknown) (no date) (unknown) [facility] (no value) (units unknown) (unknown) Result panel 415 (unknown) (no date) (unknown) [facility] (no value) (units unknown) (unknown) Result panel 416 (unknown) (no date) (unknown) [facility] (no value) (units unknown) (unknown) Result panel 417 (unknown) (no date) (unknown) [facility] (no value) (units unknown) (unknown) Result panel 418 (unknown) (no date) (unknown) [facility] (no value) (units unknown) (unknown) Result panel 419 (unknown) (no date) (unknown) [facility] (no value) (units unknown) (unknown) Result panel 420 (unknown) (no date) (unknown) [facility] (no value) (units unknown) (unknown) Result panel 421 (unknown) (no date) (unknown) [facility] (no value) (units unknown) (unknown) Result panel 422 (unknown) (no date) (unknown) [facility] (no value) (units unknown) (unknown) Result panel 423 (unknown) (no date) (unknown) [facility] (no value) (units unknown) (unknown) Result panel 424 (unknown) (no date) (unknown) [facility] (no value) (units unknown) (unknown) Result panel 425 (unknown) (no date) (unknown) [facility] (no value) (units unknown) (unknown) Result panel 426 (unknown) (no date) (unknown) [facility] (no value) (units unknown) (unknown) Result panel 427 (unknown) (no date) (unknown) [facility] (no value) (units unknown) (unknown) Result panel 428 (unknown) (no date) (unknown) [facility] (no value) (units unknown) (unknown) Result panel 429 (unknown) (no date) (unknown) [facility] (no value) (units unknown) (unknown) Result panel 430 (unknown) (no date) (unknown) [facility] (no value) (units unknown) (unknown) Result panel 431 (unknown) (no date) (unknown) [facility] (no value) (units unknown) (unknown) Result panel 432 (unknown) (no date) (unknown) [facility] (no value) (units unknown) (unknown) Result panel 433 (unknown) (no date) (unknown) [facility] (no value) (units unknown) (unknown) Result panel 434 (unknown) (no date) (unknown) [facility] (no value) (units unknown) (unknown) Result panel 435 (unknown) (no date) (unknown) [facility] (no value) (units unknown) (unknown) Result panel 436 (unknown) (no date) (unknown) [facility] (no value) (units unknown) (unknown) Result panel 437 (unknown) (no date) (unknown) [facility] (no value) (units unknown) (unknown) Result panel 438 (unknown) (no date) (unknown) [facility] (no value) (units unknown) (unknown) Result panel 439 (unknown) (no date) (unknown) [facility] (no value) (units unknown) (unknown) Result panel 440 (unknown) (no date) (unknown) [facility] (no value) (units unknown) (unknown) Result panel 441 (unknown) (no date) (unknown) [facility] (no value) (units unknown) (unknown) Result panel 442 (unknown) (no date) (unknown) [facility] (no value) (units unknown) (unknown) Result panel 443 (unknown) (no date) (unknown) [facility] (no value) (units unknown) (unknown) Result panel 444 (unknown) (no date) (unknown) [facility] (no value) (units unknown) (unknown) Result panel 445 (unknown) (no date) (unknown) [facility] (no value) (units unknown) (unknown) Result panel 446 (unknown) (no date) (unknown) [facility] (no value) (units unknown) (unknown) Result panel 447 (unknown) (no date) (unknown) [facility] (no value) (units unknown) (unknown) Result panel 448 (unknown) (no date) (unknown) [facility] (no value) (units unknown) (unknown) Result panel 449 (unknown) (no date) (unknown) [facility] (no value) (units unknown) (unknown) Result panel 450 (unknown) (no date) (unknown) [facility] (no value) (units unknown) (unknown) Result panel 451 (unknown) (no date) (unknown) [facility] (no value) (units unknown) (unknown) Result panel 452 (unknown) (no date) (unknown) [facility] (no value) (units unknown) (unknown) Result panel 453 (unknown) (no date) (unknown) [facility] (no value) (units unknown) (unknown) Result panel 454 (unknown) (no date) (unknown) [facility] (no value) (units unknown) (unknown) Result panel 455 (unknown) (no date) (unknown) [facility] (no value) (units unknown) (unknown) Result panel 456 (unknown) (no date) (unknown) [facility] (no value) (units unknown) (unknown) Result panel 457 (unknown) (no date) (unknown) [facility] (no value) (units unknown) (unknown) Result panel 458 (unknown) (no date) (unknown) [facility] (no value) (units unknown) (unknown) Result panel 459 (unknown) (no date) (unknown) [facility] (no value) (units unknown) (unknown) Result panel 460 (unknown) (no date) (unknown) [facility] (no value) (units unknown) (unknown) Result panel 461 (unknown) (no date) (unknown) [facility] (no value) (units unknown) (unknown) Result panel 462 (unknown) (no date) (unknown) [facility] (no value) (units unknown) (unknown) Result panel 463 (unknown) (no date) (unknown) [facility] (no value) (units unknown) (unknown) Result panel 464 (unknown) (no date) (unknown) [facility] (no value) (units unknown) (unknown) Result panel 465 (unknown) (no date) (unknown) [facility] (no value) (units unknown) (unknown) Result panel 466 (unknown) (no date) (unknown) [facility] (no value) (units unknown) (unknown) Result panel 467 (unknown) (no date) (unknown) [facility] (no value) (units unknown) (unknown) Result panel 468 (unknown) (no date) (unknown) [facility] (no value) (units unknown) (unknown) Result panel 469 (unknown) (no date) (unknown) [facility] (no value) (units unknown) (unknown) Result panel 470 (unknown) (no date) (unknown) [facility] (no value) (units unknown) (unknown) Result panel 471 (unknown) (no date) (unknown) [facility] (no value) (units unknown) (unknown) Result panel 472 (unknown) (no date) (unknown) [facility] (no value) (units unknown) (unknown) Result panel 473 (unknown) (no date) (unknown) [facility] (no value) (units unknown) (unknown) Result panel 474 (unknown) (no date) (unknown) [facility] (no value) (units unknown) (unknown) Result panel 475 (unknown) (no date) (unknown) [facility] (no value) (units unknown) (unknown) Result panel 476 (unknown) (no date) (unknown) [facility] (no value) (units unknown) (unknown) Result panel 477 (unknown) (no date) (unknown) [facility] (no value) (units unknown) (unknown) Result panel 478 (unknown) (no date) (unknown) [facility] (no value) (units unknown) (unknown) Result panel 479 (unknown) (no date) (unknown) [facility] (no value) (units unknown) (unknown) Result panel 480 (unknown) (no date) (unknown) [facility] (no value) (units unknown) (unknown) Result panel 481 (unknown) (no date) (unknown) [facility] (no value) (units unknown) (unknown) Result panel 482 (unknown) (no date) (unknown) [facility] (no value) (units unknown) (unknown) Result panel 483 (unknown) (no date) (unknown) [facility] (no value) (units unknown) (unknown) Result panel 484 (unknown) (no date) (unknown) [facility] (no value) (units unknown) (unknown) Result panel 485 (unknown) (no date) (unknown) [facility] (no value) (units unknown) (unknown) Result panel 486 (unknown) (no date) (unknown) [facility] (no value) (units unknown) (unknown) Result panel 487 (unknown) (no date) (unknown) [facility] (no value) (units unknown) (unknown) Result panel 488 (unknown) (no date) (unknown) [facility] (no value) (units unknown) (unknown) Result panel 489 (unknown) (no date) (unknown) [facility] (no value) (units unknown) (unknown) Result panel 490 (unknown) (no date) (unknown) [facility] (no value) (units unknown) (unknown) Result panel 491 (unknown) (no date) (unknown) [facility] (no value) (units unknown) (unknown) Result panel 492 (unknown) (no date) (unknown) [facility] (no value) (units unknown) (unknown) Result panel 493 (unknown) (no date) (unknown) [facility] (no value) (units unknown) (unknown) Result panel 494 (unknown) (no date) (unknown) [facility] (no value) (units unknown) (unknown) Result panel 495 (unknown) (no date) (unknown) [facility] (no value) (units unknown) (unknown) Result panel 496 (unknown) (no date) (unknown) [facility] (no value) (units unknown) (unknown) Result panel 497 (unknown) (no date) (unknown) [facility] (no value) (units unknown) (unknown) Result panel 498 (unknown) (no date) (unknown) [facility] (no value) (units unknown) (unknown) Result panel 499 (unknown) (no date) (unknown) [facility] (no value) (units unknown) (unknown) Result panel 500 (unknown) (no date) (unknown) [facility] (no value) (units unknown) (unknown) Result panel 501 (unknown) (no date) (unknown) [facility] (no value) (units unknown) (unknown) Result panel 502 (unknown) (no date) (unknown) [facility] (no value) (units unknown) (unknown) Result panel 503 (unknown) (no date) (unknown) [facility] (no value) (units unknown) (unknown) Result panel 504 (unknown) (no date) (unknown) [facility] (no value) (units unknown) (unknown) Result panel 505 (unknown) (no date) (unknown) [facility] (no value) (units unknown) (unknown) Result panel 506 (unknown) (no date) (unknown) [facility] (no value) (units unknown) (unknown) Result panel 507 (unknown) (no date) (unknown) [facility] (no value) (units unknown) (unknown) Result panel 508 (unknown) (no date) (unknown) [facility] (no value) (units unknown) (unknown) Result panel 509 (unknown) (no date) (unknown) [facility] (no value) (units unknown) (unknown) Result panel 510 (unknown) (no date) (unknown) [facility] (no value) (units unknown) (unknown) Result panel 511 (unknown) (no date) (unknown) [facility] (no value) (units unknown) (unknown) Result panel 512 (unknown) (no date) (unknown) [facility] (no value) (units unknown) (unknown) Result panel 513 (unknown) (no date) (unknown) [facility] (no value) (units unknown) (unknown) Result panel 514 (unknown) (no date) (unknown) [facility] (no value) (units unknown) (unknown) Result panel 515 (unknown) (no date) (unknown) [facility] (no value) (units unknown) (unknown) Result panel 516 (unknown) (no date) (unknown) [facility] (no value) (units unknown) (unknown) Result panel 517 (unknown) (no date) (unknown) [facility] (no value) (units unknown) (unknown) Result panel 518 (unknown) (no date) (unknown) [facility] (no value) (units unknown) (unknown) Result panel 519 (unknown) (no date) (unknown) [facility] (no value) (units unknown) (unknown) Result panel 520 (unknown) (no date) (unknown) [facility] (no value) (units unknown) (unknown) Result panel 521 (unknown) (no date) (unknown) [facility] (no value) (units unknown) (unknown) Result panel 522 (unknown) (no date) (unknown) [facility] (no value) (units unknown) (unknown) Result panel 523 (unknown) (no date) (unknown) [facility] (no value) (units unknown) (unknown) Result panel 524 (unknown) (no date) (unknown) [facility] (no value) (units unknown) (unknown) Result panel 525 (unknown) (no date) (unknown) [facility] (no value) (units unknown) (unknown) Result panel 526 (unknown) (no date) (unknown) [facility] (no value) (units unknown) (unknown) Result panel 527 (unknown) (no date) (unknown) [facility] (no value) (units unknown) (unknown) Result panel 528 (unknown) (no date) (unknown) [facility] (no value) (units unknown) (unknown) Result panel 529 (unknown) (no date) (unknown) [facility] (no value) (units unknown) (unknown) Result panel 530 (unknown) (no date) (unknown) [facility] (no value) (units unknown) (unknown) Result panel 531 (unknown) (no date) (unknown) [facility] (no value) (units unknown) (unknown) Result panel 532 (unknown) (no date) (unknown) [facility] (no value) (units unknown) (unknown) Result panel 533 (unknown) (no date) (unknown) [facility] (no value) (units unknown) (unknown) Result panel 534 (unknown) (no date) (unknown) [facility] (no value) (units unknown) (unknown) Result panel 535 (unknown) (no date) (unknown) [facility] (no value) (units unknown) (unknown) Result panel 536 (unknown) (no date) (unknown) [facility] (no value) (units unknown) (unknown) Result panel 537 (unknown) (no date) (unknown) [facility] (no value) (units unknown) (unknown) Result panel 538 (unknown) (no date) (unknown) [facility] (no value) (units unknown) (unknown) Result panel 539 (unknown) (no date) (unknown) [facility] (no value) (units unknown) (unknown) Result panel 540 (unknown) (no date) (unknown) [facility] (no value) (units unknown) (unknown) Result panel 541 (unknown) (no date) (unknown) [facility] (no value) (units unknown) (unknown) Result panel 542 (unknown) (no date) (unknown) [facility] (no value) (units unknown) (unknown) Result panel 543 (unknown) (no date) (unknown) [facility] (no value) (units unknown) (unknown) Result panel 544 (unknown) (no date) (unknown) [facility] (no value) (units unknown) (unknown) Result panel 545 (unknown) (no date) (unknown) [facility] (no value) (units unknown) (unknown) Result panel 546 (unknown) (no date) (unknown) [facility] (no value) (units unknown) (unknown) Result panel 547 (unknown) (no date) (unknown) [facility] (no value) (units unknown) (unknown) Result panel 548 (unknown) (no date) (unknown) [facility] (no value) (units unknown) (unknown) Result panel 549 (unknown) (no date) (unknown) [facility] (no value) (units unknown) (unknown) Result panel 550 (unknown) (no date) (unknown) [facility] (no value) (units unknown) (unknown) Result panel 551 (unknown) (no date) (unknown) [facility] (no value) (units unknown) (unknown) Result panel 552 (unknown) (no date) (unknown) [facility] (no value) (units unknown) (unknown) Result panel 553 (unknown) (no date) (unknown) [facility] (no value) (units unknown) (unknown) Result panel 554 (unknown) (no date) (unknown) [facility] (no value) (units unknown) (unknown) Result panel 555 (unknown) (no date) (unknown) [facility] (no value) (units unknown) (unknown) Result panel 556 (unknown) (no date) (unknown) [facility] (no value) (units unknown) (unknown) Result panel 557 (unknown) (no date) (unknown) [facility] (no value) (units unknown) (unknown) Result panel 558 (unknown) (no date) (unknown) [facility] (no value) (units unknown) (unknown) Result panel 559 (unknown) (no date) (unknown) [facility] (no value) (units unknown) (unknown) Result panel 560 (unknown) (no date) (unknown) [facility] (no value) (units unknown) (unknown) Result panel 561 (unknown) (no date) (unknown) [facility] (no value) (units unknown) (unknown) Result panel 562 (unknown) (no date) (unknown) [facility] (no value) (units unknown) (unknown) Result panel 563 (unknown) (no date) (unknown) [facility] (no value) (units unknown) (unknown) Result panel 564 (unknown) (no date) (unknown) [facility] (no value) (units unknown) (unknown) Result panel 565 (unknown) (no date) (unknown) [facility] (no value) (units unknown) (unknown) Result panel 566 (unknown) (no date) (unknown) [facility] (no value) (units unknown) (unknown) Result panel 567 (unknown) (no date) (unknown) [facility] (no value) (units unknown) (unknown) Result panel 568 (unknown) (no date) (unknown) [facility] (no value) (units unknown) (unknown) Result panel 569 (unknown) (no date) (unknown) [facility] (no value) (units unknown) (unknown) Result panel 570 (unknown) (no date) (unknown) [facility] (no value) (units unknown) (unknown) Result panel 571 (unknown) (no date) (unknown) [facility] (no value) (units unknown) (unknown) Result panel 572 (unknown) (no date) (unknown) [facility] (no value) (units unknown) (unknown) Result panel 573 (unknown) (no date) (unknown) [facility] (no value) (units unknown) (unknown) Result panel 574 (unknown) (no date) (unknown) [facility] (no value) (units unknown) (unknown) Result panel 575 (unknown) (no date) (unknown) [facility] (no value) (units unknown) (unknown) Result panel 576 (unknown) (no date) (unknown) [facility] (no value) (units unknown) (unknown) Result panel 577 (unknown) (no date) (unknown) [facility] (no value) (units unknown) (unknown) Result panel 578 (unknown) (no date) (unknown) [facility] (no value) (units unknown) (unknown) Result panel 579 (unknown) (no date) (unknown) [facility] (no value) (units unknown) (unknown) Result panel 580 (unknown) (no date) (unknown) [facility] (no value) (units unknown) (unknown) Result panel 581 (unknown) (no date) (unknown) [facility] (no value) (units unknown) (unknown) Result panel 582 (unknown) (no date) (unknown) [facility] (no value) (units unknown) (unknown) Result panel 583 (unknown) (no date) (unknown) [facility] (no value) (units unknown) (unknown) Result panel 584 (unknown) (no date) (unknown) [facility] (no value) (units unknown) (unknown) Result panel 585 (unknown) (no date) (unknown) [facility] (no value) (units unknown) (unknown) Result panel 586 (unknown) (no date) (unknown) [facility] (no value) (units unknown) (unknown) Result panel 587 (unknown) (no date) (unknown) [facility] (no value) (units unknown) (unknown) Result panel 588 (unknown) (no date) (unknown) [facility] (no value) (units unknown) (unknown) Result panel 589 (unknown) (no date) (unknown) [facility] (no value) (units unknown) (unknown) Result panel 590 (unknown) (no date) (unknown) [facility] (no value) (units unknown) (unknown) Result panel 591 (unknown) (no date) (unknown) [facility] (no value) (units unknown) (unknown) Result panel 592 (unknown) (no date) (unknown) [facility] (no value) (units unknown) (unknown) Result panel 593 (unknown) (no date) (unknown) [facility] (no value) (units unknown) (unknown) Result panel 594 (unknown) (no date) (unknown) [facility] (no value) (units unknown) (unknown) Result panel 595 (unknown) (no date) (unknown) [facility] (no value) (units unknown) (unknown) Result panel 596 (unknown) (no date) (unknown) [facility] (no value) (units unknown) (unknown) Result panel 597 (unknown) (no date) (unknown) [facility] (no value) (units unknown) (unknown) Result panel 598 (unknown) (no date) (unknown) [facility] (no value) (units unknown) (unknown) Result panel 599 (unknown) (no date) (unknown) [facility] (no value) (units unknown) (unknown) Result panel 600 (unknown) (no date) (unknown) [facility] (no value) (units unknown) (unknown) Result panel 601 (unknown) (no date) (unknown) [facility] (no value) (units unknown) (unknown) Result panel 602 (unknown) (no date) (unknown) [facility] (no value) (units unknown) (unknown) Result panel 603 (unknown) (no date) (unknown) [facility] (no value) (units unknown) (unknown) Result panel 604 (unknown) (no date) (unknown) [facility] (no value) (units unknown) (unknown) Result panel 605 (unknown) (no date) (unknown) [facility] (no value) (units unknown) (unknown) Result panel 606 (unknown) (no date) (unknown) [facility] (no value) (units unknown) (unknown) Result panel 607 (unknown) (no date) (unknown) [facility] (no value) (units unknown) (unknown) Result panel 608 (unknown) (no date) (unknown) [facility] (no value) (units unknown) (unknown) Result panel 609 (unknown) (no date) (unknown) [facility] (no value) (units unknown) (unknown) Result panel 610 (unknown) (no date) (unknown) [facility] (no value) (units unknown) (unknown) Result panel 611 (unknown) (no date) (unknown) [facility] (no value) (units unknown) (unknown) Result panel 612 (unknown) (no date) (unknown) [facility] (no value) (units unknown) (unknown) Result panel 613 (unknown) (no date) (unknown) [facility] (no value) (units unknown) (unknown) Result panel 614 (unknown) (no date) (unknown) [facility] (no value) (units unknown) (unknown) Result panel 615 (unknown) (no date) (unknown) [facility] (no value) (units unknown) (unknown) Result panel 616 (unknown) (no date) (unknown) [facility] (no value) (units unknown) (unknown) Result panel 617 (unknown) (no date) (unknown) [facility] (no value) (units unknown) (unknown) Result panel 618 (unknown) (no date) (unknown) [facility] (no value) (units unknown) (unknown) Result panel 619 (unknown) (no date) (unknown) [facility] (no value) (units unknown) (unknown) Result panel 620 (unknown) (no date) (unknown) [facility] [facility] (units unknown) (unknown) Result panel 621 (unknown) (no date) (unknown) [facility] (no value) (units unknown) (unknown) Result panel 622 (unknown) (no date) (unknown) [facility] (no value) (units unknown) (unknown) Result panel 623 (unknown) (no date) (unknown) [facility] (no value) (units unknown) (unknown) Result panel 624 (unknown) (no date) (unknown) [facility] (no value) (units unknown) (unknown) Result panel 625 (unknown) (no date) (unknown) [facility] (no value) (units unknown) (unknown) Result panel 626 (unknown) (no date) (unknown) [facility] (no value) (units unknown) (unknown) Result panel 627 (unknown) (no date) (unknown) [facility] (no value) (units unknown) (unknown) Result panel 628 (unknown) (no date) (unknown) [facility] (no value) (units unknown) (unknown) Result panel 629 (unknown) (no date) (unknown) [facility] (no value) (units unknown) (unknown) Result panel 630 (unknown) (no date) (unknown) [facility] (no value) (units unknown) (unknown) Result panel 631 (unknown) (no date) (unknown) [facility] (no value) (units unknown) (unknown) Result panel 632 (unknown) (no date) (unknown) [facility] (no value) (units unknown) (unknown) Result panel 633 (unknown) (no date) (unknown) [facility] (no value) (units unknown) (unknown) Result panel 634 (unknown) (no date) (unknown) [facility] (no value) (units unknown) (unknown) Result panel 635 (unknown) (no date) (unknown) [facility] (no value) (units unknown) (unknown) Result panel 636 (unknown) (no date) (unknown) [facility] (no value) (units unknown) (unknown) Result panel 637 (unknown) (no date) (unknown) [facility] (no value) (units unknown) (unknown) Result panel 638 (unknown) (no date) (unknown) [facility] (no value) (units unknown) (unknown) Result panel 639 (unknown) (no date) (unknown) [facility] (no value) (units unknown) (unknown) Result panel 640 (unknown) (no date) (unknown) [facility] (no value) (units unknown) (unknown) Result panel 641 (unknown) (no date) (unknown) [facility] (no value) (units unknown) (unknown) Result panel 642 (unknown) (no date) (unknown) [facility] (no value) (units unknown) (unknown) Result panel 643 (unknown) (no date) (unknown) [facility] (no value) (units unknown) (unknown) Result panel 644 (unknown) (no date) (unknown) [facility] (no value) (units unknown) (unknown) Result panel 645 (unknown) (no date) (unknown) [facility] (no value) (units unknown) (unknown) Result panel 646 (unknown) (no date) (unknown) [facility] (no value) (units unknown) (unknown) Result panel 647 (unknown) (no date) (unknown) [facility] (no value) (units unknown) (unknown) Result panel 648 (unknown) (no date) (unknown) [facility] (no value) (units unknown) (unknown) Result panel 649 (unknown) (no date) (unknown) [facility] (no value) (units unknown) (unknown) Result panel 650 (unknown) (no date) (unknown) [facility] (no value) (units unknown) (unknown) Result panel 651 (unknown) (no date) (unknown) [facility] (no value) (units unknown) (unknown) Result panel 652 (unknown) (no date) (unknown) [facility] (no value) (units unknown) (unknown) Result panel 653 (unknown) (no date) (unknown) [facility] (no value) (units unknown) (unknown) Result panel 654 (unknown) (no date) (unknown) [facility] (no value) (units unknown) (unknown) Result panel 655 (unknown) (no date) (unknown) [facility] (no value) (units unknown) (unknown) Result panel 656 (unknown) (no date) (unknown) [facility] (no value) (units unknown) (unknown) Result panel 657 (unknown) (no date) (unknown) [facility] (no value) (units unknown) (unknown) Result panel 658 (unknown) (no date) (unknown) [facility] (no value) (units unknown) (unknown) Result panel 659 (unknown) (no date) (unknown) [facility] (no value) (units unknown) (unknown) Result panel 660 (unknown) (no date) (unknown) [facility] (no value) (units unknown) (unknown) Result panel 661 (unknown) (no date) (unknown) [facility] (no value) (units unknown) (unknown) Result panel 662 (unknown) (no date) (unknown) [facility] (no value) (units unknown) (unknown) Result panel 663 (unknown) (no date) (unknown) [facility] (no value) (units unknown) (unknown) Result panel 664 (unknown) (no date) (unknown) [facility] (no value) (units unknown) (unknown) Result panel 665 (unknown) (no date) (unknown) [facility] (no value) (units unknown) (unknown) Result panel 666 (unknown) (no date) (unknown) [facility] (no value) (units unknown) (unknown) Result panel 667 (unknown) (no date) (unknown) [facility] (no value) (units unknown) (unknown) Result panel 668 (unknown) (no date) (unknown) [facility] (no value) (units unknown) (unknown) Result panel 669 (unknown) (no date) (unknown) [facility] (no value) (units unknown) (unknown) Result panel 670 (unknown) (no date) (unknown) [facility] (no value) (units unknown) (unknown) Result panel 671 (unknown) (no date) (unknown) [facility] (no value) (units unknown) (unknown) Result panel 672 (unknown) (no date) (unknown) [facility] (no value) (units unknown) (unknown) Result panel 673 (unknown) (no date) (unknown) [facility] (no value) (units unknown) (unknown) Result panel 674 (unknown) (no date) (unknown) [facility] (no value) (units unknown) (unknown) Result panel 675 (unknown) (no date) (unknown) [facility] (no value) (units unknown) (unknown) Result panel 676 (unknown) (no date) (unknown) [facility] (no value) (units unknown) (unknown) Result panel 677 (unknown) (no date) (unknown) [facility] (no value) (units unknown) (unknown) Result panel 678 (unknown) (no date) (unknown) [facility] (no value) (units unknown) (unknown) Result panel 679 (unknown) (no date) (unknown) [facility] (no value) (units unknown) (unknown) Result panel 680 (unknown) (no date) (unknown) [facility] (no value) (units unknown) (unknown) Result panel 681 (unknown) (no date) (unknown) [facility] (no value) (units unknown) (unknown) Result panel 682 (unknown) (no date) (unknown) [facility] (no value) (units unknown) (unknown) Result panel 683 (unknown) (no date) (unknown) [facility] (no value) (units unknown) (unknown) Result panel 684 (unknown) (no date) (unknown) [facility] (no value) (units unknown) (unknown) Result panel 685 (unknown) (no date) (unknown) [facility] (no value) (units unknown) (unknown) Result panel 686 (unknown) (no date) (unknown) [facility] (no value) (units unknown) (unknown) Result panel 687 (unknown) (no date) (unknown) [facility] (no value) (units unknown) (unknown) Result panel 688 (unknown) (no date) (unknown) [facility] (no value) (units unknown) (unknown) Result panel 689 (unknown) (no date) (unknown) [facility] (no value) (units unknown) (unknown) Result panel 690 (unknown) (no date) (unknown) [facility] (no value) (units unknown) (unknown) Result panel 691 (unknown) (no date) (unknown) [facility] (no value) (units unknown) (unknown) Result panel 692 (unknown) (no date) (unknown) [facility] (no value) (units unknown) (unknown) Result panel 693 (unknown) (no date) (unknown) [facility] (no value) (units unknown) (unknown) Result panel 694 (unknown) (no date) (unknown) [facility] (no value) (units unknown) (unknown) Result panel 695 (unknown) (no date) (unknown) [facility] (no value) (units unknown) (unknown) Result panel 696 (unknown) (no date) (unknown) [facility] (no value) (units unknown) (unknown) Result panel 697 (unknown) (no date) (unknown) [facility] (no value) (units unknown) (unknown) Result panel 698 (unknown) (no date) (unknown) [facility] (no value) (units unknown) (unknown) Result panel 699 (unknown) (no date) (unknown) [facility] (no value) (units unknown) (unknown) Result panel 700 (unknown) (no date) (unknown) [facility] (no value) (units unknown) (unknown) Result panel 701 (unknown) (no date) (unknown) [facility] (no value) (units unknown) (unknown) Result panel 702 (unknown) (no date) (unknown) [facility] (no value) (units unknown) (unknown) Result panel 703 (unknown) (no date) (unknown) [facility] (no value) (units unknown) (unknown) Result panel 704 (unknown) (no date) (unknown) [facility] (no value) (units unknown) (unknown) Result panel 705 (unknown) (no date) (unknown) [facility] (no value) (units unknown) (unknown) Result panel 706 (unknown) (no date) (unknown) [facility] (no value) (units unknown) (unknown) Result panel 707 (unknown) (no date) (unknown) [facility] (no value) (units unknown) (unknown) Result panel 708 (unknown) (no date) (unknown) [facility] (no value) (units unknown) (unknown) Result panel 709 (unknown) (no date) (unknown) [facility] (no value) (units unknown) (unknown) Result panel 710 (unknown) (no date) (unknown) [facility] (no value) (units unknown) (unknown) Result panel 711 (unknown) (no date) (unknown) [facility] (no value) (units unknown) (unknown) Result panel 712 (unknown) (no date) (unknown) [facility] (no value) (units unknown) (unknown) Result panel 713 (unknown) (no date) (unknown) [facility] (no value) (units unknown) (unknown) Result panel 714 (unknown) (no date) (unknown) [facility] (no value) (units unknown) (unknown) Result panel 715 (unknown) (no date) (unknown) [facility] (no value) (units unknown) (unknown) Result panel 716 (unknown) (no date) (unknown) [facility] (no value) (units unknown) (unknown) Result panel 717 (unknown) (no date) (unknown) [facility] (no value) (units unknown) (unknown) Result panel 718 (unknown) (no date) (unknown) [facility] (no value) (units unknown) (unknown) Result panel 719 (unknown) (no date) (unknown) [facility] (no value) (units unknown) (unknown) Result panel 720 (unknown) (no date) (unknown) [facility] (no value) (units unknown) (unknown) Result panel 721 (unknown) (no date) (unknown) [facility] (no value) (units unknown) (unknown) Result panel 722 (unknown) (no date) (unknown) [facility] (no value) (units unknown) (unknown) Result panel 723 (unknown) (no date) (unknown) [facility] (no value) (units unknown) (unknown) Result panel 724 (unknown) (no date) (unknown) [facility] (no value) (units unknown) (unknown) Result panel 725 (unknown) (no date) (unknown) [facility] (no value) (units unknown) (unknown) Result panel 726 (unknown) (no date) (unknown) [facility] (no value) (units unknown) (unknown) Result panel 727 (unknown) (no date) (unknown) [facility] (no value) (units unknown) (unknown) Result panel 728 (unknown) (no date) (unknown) [facility] (no value) (units unknown) (unknown) Result panel 729 (unknown) (no date) (unknown) [facility] (no value) (units unknown) (unknown) Result panel 730 (unknown) (no date) (unknown) [facility] (no value) (units unknown) (unknown) Result panel 731 (unknown) (no date) (unknown) [facility] (no value) (units unknown) (unknown) Result panel 732 (unknown) (no date) (unknown) [facility] (no value) (units unknown) (unknown) Result panel 733 (unknown) (no date) (unknown) [facility] (no value) (units unknown) (unknown) Result panel 734 (unknown) (no date) (unknown) [facility] (no value) (units unknown) (unknown) Result panel 735 (unknown) (no date) (unknown) [facility] (no value) (units unknown) (unknown) Result panel 736 (unknown) (no date) (unknown) [facility] (no value) (units unknown) (unknown) Result panel 737 (unknown) (no date) (unknown) [facility] (no value) (units unknown) (unknown) Result panel 738 (unknown) (no date) (unknown) [facility] (no value) (units unknown) (unknown) Result panel 739 (unknown) (no date) (unknown) [facility] (no value) (units unknown) (unknown) Result panel 740 (unknown) (no date) (unknown) [facility] (no value) (units unknown) (unknown) Result panel 741 (unknown) (no date) (unknown) [facility] (no value) (units unknown) (unknown) Result panel 742 (unknown) (no date) (unknown) [facility] (no value) (units unknown) (unknown) Result panel 743 (unknown) (no date) (unknown) [facility] (no value) (units unknown) (unknown) Result panel 744 (unknown) (no date) (unknown) [facility] (no value) (units unknown) (unknown) Result panel 745 (unknown) (no date) (unknown) [facility] (no value) (units unknown) (unknown) Result panel 746 (unknown) (no date) (unknown) [facility] (no value) (units unknown) (unknown) Result panel 747 (unknown) (no date) (unknown) [facility] (no value) (units unknown) (unknown) Result panel 748 (unknown) (no date) (unknown) [facility] (no value) (units unknown) (unknown) Result panel 749 (unknown) (no date) (unknown) [facility] (no value) (units unknown) (unknown) Result panel 750 (unknown) (no date) (unknown) [facility] (no value) (units unknown) (unknown) Result panel 751 (unknown) (no date) (unknown) [facility] (no value) (units unknown) (unknown) Result panel 752 (unknown) (no date) (unknown) [facility] (no value) (units unknown) (unknown) Result panel 753 (unknown) (no date) (unknown) [facility] (no value) (units unknown) (unknown) Result panel 754 (unknown) (no date) (unknown) [facility] (no value) (units unknown) (unknown) Result panel 755 (unknown) (no date) (unknown) [facility] (no value) (units unknown) (unknown) Result panel 756 (unknown) (no date) (unknown) [facility] (no value) (units unknown) (unknown) Result panel 757 (unknown) (no date) (unknown) [facility] (no value) (units unknown) (unknown) Result panel 758 (unknown) (no date) (unknown) [facility] (no value) (units unknown) (unknown) Result panel 759 (unknown) (no date) (unknown) [facility] (no value) (units unknown) (unknown) Result panel 760 (unknown) (no date) (unknown) [facility] (no value) (units unknown) (unknown) Result panel 761 (unknown) (no date) (unknown) [facility] (no value) (units unknown) (unknown) Result panel 762 (unknown) (no date) (unknown) [facility] (no value) (units unknown) (unknown) Result panel 763 (unknown) (no date) (unknown) [facility] (no value) (units unknown) (unknown) Result panel 764 (unknown) (no date) (unknown) [facility] (no value) (units unknown) (unknown) Result panel 765 (unknown) (no date) (unknown) [facility] (no value) (units unknown) (unknown) Result panel 766 (unknown) (no date) (unknown) [facility] (no value) (units unknown) (unknown) Result panel 767 (unknown) (no date) (unknown) [facility] (no value) (units unknown) (unknown) Result panel 768 (unknown) (no date) (unknown) [facility] (no value) (units unknown) (unknown) Result panel 769 (unknown) (no date) (unknown) [facility] (no value) (units unknown) (unknown) Result panel 770 (unknown) (no date) (unknown) [facility] (no value) (units unknown) (unknown) Result panel 771 (unknown) (no date) (unknown) [facility] (no value) (units unknown) (unknown) Result panel 772 (unknown) (no date) (unknown) [facility] (no value) (units unknown) (unknown) Result panel 773 (unknown) (no date) (unknown) [facility] (no value) (units unknown) (unknown) Result panel 774 (unknown) (no date) (unknown) [facility] (no value) (units unknown) (unknown) Result panel 775 (unknown) (no date) (unknown) [facility] (no value) (units unknown) (unknown) Result panel 776 (unknown) (no date) (unknown) [facility] (no value) (units unknown) (unknown) Result panel 777 (unknown) (no date) (unknown) [facility] (no value) (units unknown) (unknown) Result panel 778 (unknown) (no date) (unknown) [facility] (no value) (units unknown) (unknown) Result panel 779 (unknown) (no date) (unknown) [facility] (no value) (units unknown) (unknown) Result panel 780 (unknown) (no date) (unknown) [facility] (no value) (units unknown) (unknown) Result panel 781 (unknown) (no date) (unknown) [facility] (no value) (units unknown) (unknown) Result panel 782 (unknown) (no date) (unknown) [facility] (no value) (units unknown) (unknown) Result panel 783 (unknown) (no date) (unknown) [facility] (no value) (units unknown) (unknown) Result panel 784 (unknown) (no date) (unknown) [facility] (no value) (units unknown) (unknown) Result panel 785 (unknown) (no date) (unknown) [facility] (no value) (units unknown) (unknown) Result panel 786 (unknown) (no date) (unknown) [facility] (no value) (units unknown) (unknown) Result panel 787 (unknown) (no date) (unknown) [facility] (no value) (units unknown) (unknown) Result panel 788 (unknown) (no date) (unknown) [facility] (no value) (units unknown) (unknown) Result panel 789 (unknown) (no date) (unknown) [facility] (no value) (units unknown) (unknown) Result panel 790 (unknown) (no date) (unknown) [facility] (no value) (units unknown) (unknown) Result panel 791 (unknown) (no date) (unknown) [facility] (no value) (units unknown) (unknown) Result panel 792 (unknown) (no date) (unknown) [facility] (no value) (units unknown) (unknown) Result panel 793 (unknown) (no date) (unknown) [facility] (no value) (units unknown) (unknown) Result panel 794 (unknown) (no date) (unknown) [facility] (no value) (units unknown) (unknown) Result panel 795 (unknown) (no date) (unknown) [facility] (no value) (units unknown) (unknown) Result panel 796 (unknown) (no date) (unknown) [facility] (no value) (units unknown) (unknown) Result panel 797 (unknown) (no date) (unknown) [facility] (no value) (units unknown) (unknown) Result panel 798 (unknown) (no date) (unknown) [facility] (no value) (units unknown) (unknown) Result panel 799 (unknown) (no date) (unknown) [facility] (no value) (units unknown) (unknown) Result panel 800 (unknown) (no date) (unknown) [facility] (no value) (units unknown) (unknown) Result panel 801 (unknown) (no date) (unknown) [facility] (no value) (units unknown) (unknown) Result panel 802 (unknown) (no date) (unknown) [facility] (no value) (units unknown) (unknown) Result panel 803 (unknown) (no date) (unknown) [facility] (no value) (units unknown) (unknown) Result panel 804 (unknown) (no date) (unknown) [facility] (no value) (units unknown) (unknown) Result panel 805 (unknown) (no date) (unknown) [facility] (no value) (units unknown) (unknown) Result panel 806 (unknown) (no date) (unknown) [facility] (no value) (units unknown) (unknown) Result panel 807 (unknown) (no date) (unknown) [facility] (no value) (units unknown) (unknown) Result panel 808 (unknown) (no date) (unknown) [facility] (no value) (units unknown) (unknown) Result panel 809 (unknown) (no date) (unknown) [facility] (no value) (units unknown) (unknown) Result panel 810 (unknown) (no date) (unknown) [facility] (no value) (units unknown) (unknown) Result panel 811 (unknown) (no date) (unknown) [facility] (no value) (units unknown) (unknown) Result panel 812 (unknown) (no date) (unknown) [facility] (no value) (units unknown) (unknown) Result panel 813 (unknown) (no date) (unknown) [facility] (no value) (units unknown) (unknown) Result panel 814 (unknown) (no date) (unknown) [facility] (no value) (units unknown) (unknown) Result panel 815 (unknown) (no date) (unknown) [facility] (no value) (units unknown) (unknown) Result panel 816 (unknown) (no date) (unknown) [facility] (no value) (units unknown) (unknown) Result panel 817 (unknown) (no date) (unknown) [facility] (no value) (units unknown) (unknown) Result panel 818 (unknown) (no date) (unknown) [facility] (no value) (units unknown) (unknown) Result panel 819 (unknown) (no date) (unknown) [facility] (no value) (units unknown) (unknown) Result panel 820 (unknown) (no date) (unknown) [facility] (no value) (units unknown) (unknown) Result panel 821 (unknown) (no date) (unknown) [facility] (no value) (units unknown) (unknown) Result panel 822 (unknown) (no date) (unknown) [facility] (no value) (units unknown) (unknown) Result panel 823 (unknown) (no date) (unknown) [facility] (no value) (units unknown) (unknown) Result panel 824 (unknown) (no date) (unknown) [facility] (no value) (units unknown) (unknown) Result panel 825 (unknown) (no date) (unknown) [facility] (no value) (units unknown) (unknown) Result panel 826 (unknown) (no date) (unknown) [facility] (no value) (units unknown) (unknown) Result panel 827 (unknown) (no date) (unknown) [facility] (no value) (units unknown) (unknown) Result panel 828 (unknown) (no date) (unknown) [facility] (no value) (units unknown) (unknown) Result panel 829 (unknown) (no date) (unknown) [facility] (no value) (units unknown) (unknown) Result panel 830 (unknown) (no date) (unknown) [facility] (no value) (units unknown) (unknown) Result panel 831 (unknown) (no date) (unknown) [facility] (no value) (units unknown) (unknown) Result panel 832 (unknown) (no date) (unknown) [facility] (no value) (units unknown) (unknown) Result panel 833 (unknown) (no date) (unknown) [facility] (no value) (units unknown) (unknown) Result panel 834 (unknown) (no date) (unknown) [facility] (no value) (units unknown) (unknown) Result panel 835 (unknown) (no date) (unknown) [facility] (no value) (units unknown) (unknown) Result panel 836 (unknown) (no date) (unknown) [facility] (no value) (units unknown) (unknown) Result panel 837 (unknown) (no date) (unknown) [facility] (no value) (units unknown) (unknown) Result panel 838 (unknown) (no date) (unknown) [facility] (no value) (units unknown) (unknown) Result panel 839 (unknown) (no date) (unknown) [facility] (no value) (units unknown) (unknown) Result panel 840 (unknown) (no date) (unknown) [facility] (no value) (units unknown) (unknown) Result panel 841 (unknown) (no date) (unknown) [facility] (no value) (units unknown) (unknown) Result panel 842 (unknown) (no date) (unknown) [facility] (no value) (units unknown) (unknown) Result panel 843 (unknown) (no date) (unknown) [facility] (no value) (units unknown) (unknown) Result panel 844 (unknown) (no date) (unknown) [facility] (no value) (units unknown) (unknown) Result panel 845 (unknown) (no date) (unknown) [facility] (no value) (units unknown) (unknown) Result panel 846 (unknown) (no date) (unknown) [facility] (no value) (units unknown) (unknown) Result panel 847 (unknown) (no date) (unknown) [facility] (no value) (units unknown) (unknown) Result panel 848 (unknown) (no date) (unknown) [facility] (no value) (units unknown) (unknown) Result panel 849 (unknown) (no date) (unknown) [facility] (no value) (units unknown) (unknown) Result panel 850 (unknown) (no date) (unknown) [facility] (no value) (units unknown) (unknown) Result panel 851 (unknown) (no date) (unknown) [facility] (no value) (units unknown) (unknown) Result panel 852 (unknown) (no date) (unknown) [facility] (no value) (units unknown) (unknown) Result panel 853 (unknown) (no date) (unknown) [facility] (no value) (units unknown) (unknown) Result panel 854 (unknown) (no date) (unknown) [facility] (no value) (units unknown) (unknown) Result panel 855 (unknown) (no date) (unknown) [facility] (no value) (units unknown) (unknown) Result panel 856 (unknown) (no date) (unknown) [facility] (no value) (units unknown) (unknown) Result panel 857 (unknown) (no date) (unknown) [facility] (no value) (units unknown) (unknown) Result panel 858 (unknown) (no date) (unknown) [facility] (no value) (units unknown) (unknown) Result panel 859 (unknown) (no date) (unknown) [facility] (no value) (units unknown) (unknown) Result panel 860 (unknown) (no date) (unknown) [facility] (no value) (units unknown) (unknown) Result panel 861 (unknown) (no date) (unknown) [facility] (no value) (units unknown) (unknown) Result panel 862 (unknown) (no date) (unknown) [facility] (no value) (units unknown) (unknown) Result panel 863 (unknown) (no date) (unknown) [facility] (no value) (units unknown) (unknown) Result panel 864 (unknown) (no date) (unknown) [facility] (no value) (units unknown) (unknown) Result panel 865 (unknown) (no date) (unknown) [facility] (no value) (units unknown) (unknown) Result panel 866 (unknown) (no date) (unknown) [facility] (no value) (units unknown) (unknown) Result panel 867 (unknown) (no date) (unknown) [facility] (no value) (units unknown) (unknown) Result panel 868 (unknown) (no date) (unknown) [facility] (no value) (units unknown) (unknown) Result panel 869 (unknown) (no date) (unknown) [facility] (no value) (units unknown) (unknown) Result panel 870 (unknown) (no date) (unknown) [facility] (no value) (units unknown) (unknown) Result panel 871 (unknown) (no date) (unknown) [facility] (no value) (units unknown) (unknown) Result panel 872 (unknown) (no date) (unknown) [facility] (no value) (units unknown) (unknown) Result panel 873 (unknown) (no date) (unknown) [facility] (no value) (units unknown) (unknown) Result panel 874 (unknown) (no date) (unknown) [facility] (no value) (units unknown) (unknown) Result panel 875 (unknown) (no date) (unknown) [facility] (no value) (units unknown) (unknown) Result panel 876 (unknown) (no date) (unknown) [facility] (no value) (units unknown) (unknown) Result panel 877 (unknown) (no date) (unknown) [facility] (no value) (units unknown) (unknown) Result panel 878 (unknown) (no date) (unknown) [facility] (no value) (units unknown) (unknown) Result panel 879 (unknown) (no date) (unknown) [facility] (no value) (units unknown) (unknown) Result panel 880 (unknown) (no date) (unknown) [facility] (no value) (units unknown) (unknown) Result panel 881 (unknown) (no date) (unknown) [facility] (no value) (units unknown) (unknown) Result panel 882 (unknown) (no date) (unknown) [facility] (no value) (units unknown) (unknown) Result panel 883 (unknown) (no date) (unknown) [facility] (no value) (units unknown) (unknown) Result panel 884 (unknown) (no date) (unknown) [facility] (no value) (units unknown) (unknown) Result panel 885 (unknown) (no date) (unknown) [facility] (no value) (units unknown) (unknown) Result panel 886 (unknown) (no date) (unknown) [facility] (no value) (units unknown) (unknown) Result panel 887 (unknown) (no date) (unknown) [facility] (no value) (units unknown) (unknown) Result panel 888 (unknown) (no date) (unknown) [facility] (no value) (units unknown) (unknown) Result panel 889 (unknown) (no date) (unknown) [facility] (no value) (units unknown) (unknown) Result panel 890 (unknown) (no date) (unknown) [facility] (no value) (units unknown) (unknown) Result panel 891 (unknown) (no date) (unknown) [facility] (no value) (units unknown) (unknown) Result panel 892 (unknown) (no date) (unknown) [facility] (no value) (units unknown) (unknown) Result panel 893 (unknown) (no date) (unknown) [facility] (no value) (units unknown) (unknown) Result panel 894 (unknown) (no date) (unknown) [facility] (no value) (units unknown) (unknown) Result panel 895 (unknown) (no date) (unknown) [facility] (no value) (units unknown) (unknown) Result panel 896 (unknown) (no date) (unknown) [facility] (no value) (units unknown) (unknown) Result panel 897 (unknown) (no date) (unknown) [facility] (no value) (units unknown) (unknown) Result panel 898 (unknown) (no date) (unknown) [facility] (no value) (units unknown) (unknown) Result panel 899 (unknown) (no date) (unknown) [facility] (no value) (units unknown) (unknown) Result panel 900 (unknown) (no date) (unknown) [facility] (no value) (units unknown) (unknown) Result panel 901 (unknown) (no date) (unknown) [facility] (no value) (units unknown) (unknown) Result panel 902 (unknown) (no date) (unknown) [facility] (no value) (units unknown) (unknown) Result panel 903 (unknown) (no date) (unknown) [facility] (no value) (units unknown) (unknown) Result panel 904 (unknown) (no date) (unknown) [facility] (no value) (units unknown) (unknown) Result panel 905 (unknown) (no date) (unknown) [facility] (no value) (units unknown) (unknown) Result panel 906 (unknown) (no date) (unknown) [facility] (no value) (units unknown) (unknown) Result panel 907 (unknown) (no date) (unknown) [facility] (no value) (units unknown) (unknown) Result panel 908 (unknown) (no date) (unknown) [facility] (no value) (units unknown) (unknown) Result panel 909 (unknown) (no date) (unknown) [facility] (no value) (units unknown) (unknown) Result panel 910 (unknown) (no date) (unknown) [facility] (no value) (units unknown) (unknown) Result panel 911 (unknown) (no date) (unknown) [facility] (no value) (units unknown) (unknown) Result panel 912 (unknown) (no date) (unknown) [facility] (no value) (units unknown) (unknown) Result panel 913 (unknown) (no date) (unknown) [facility] (no value) (units unknown) (unknown) Result panel 914 (unknown) (no date) (unknown) [facility] (no value) (units unknown) (unknown) Result panel 915 (unknown) (no date) (unknown) [facility] (no value) (units unknown) (unknown) Result panel 916 (unknown) (no date) (unknown) [facility] (no value) (units unknown) (unknown) Result panel 917 (unknown) (no date) (unknown) [facility] (no value) (units unknown) (unknown) Result panel 918 (unknown) (no date) (unknown) [facility] (no value) (units unknown) (unknown) Result panel 919 (unknown) (no date) (unknown) [facility] (no value) (units unknown) (unknown) Result panel 920 (unknown) (no date) (unknown) [facility] (no value) (units unknown) (unknown) Result panel 921 (unknown) (no date) (unknown) [facility] (no value) (units unknown) (unknown) Result panel 922 (unknown) (no date) (unknown) [facility] (no value) (units unknown) (unknown) Result panel 923 (unknown) (no date) (unknown) [facility] (no value) (units unknown) (unknown) Result panel 924 (unknown) (no date) (unknown) [facility] (no value) (units unknown) (unknown) Result panel 925 (unknown) (no date) (unknown) [facility] (no value) (units unknown) (unknown) Result panel 926 (unknown) (no date) (unknown) [facility] (no value) (units unknown) (unknown) Result panel 927 (unknown) (no date) (unknown) [facility] (no value) (units unknown) (unknown) Result panel 928 (unknown) (no date) (unknown) [facility] (no value) (units unknown) (unknown) Result panel 929 (unknown) (no date) (unknown) [facility] (no value) (units unknown) (unknown) Result panel 930 (unknown) (no date) (unknown) [facility] (no value) (units unknown) (unknown) Result panel 931 (unknown) (no date) (unknown) [facility] (no value) (units unknown) (unknown) Result panel 932 (unknown) (no date) (unknown) [facility] (no value) (units unknown) (unknown) Result panel 933 (unknown) (no date) (unknown) [facility] (no value) (units unknown) (unknown) Result panel 934 (unknown) (no date) (unknown) [facility] (no value) (units unknown) (unknown) Result panel 935 (unknown) (no date) (unknown) [facility] (no value) (units unknown) (unknown) Result panel 936 (unknown) (no date) (unknown) [facility] (no value) (units unknown) (unknown) Result panel 937 (unknown) (no date) (unknown) [facility] (no value) (units unknown) (unknown) Result panel 938 (unknown) (no date) (unknown) [facility] (no value) (units unknown) (unknown) Result panel 939 (unknown) (no date) (unknown) [facility] (no value) (units unknown) (unknown) Result panel 940 (unknown) (no date) (unknown) [facility] (no value) (units unknown) (unknown) Result panel 941 (unknown) (no date) (unknown) [facility] (no value) (units unknown) (unknown) Result panel 942 (unknown) (no date) (unknown) [facility] (no value) (units unknown) (unknown) Result panel 943 (unknown) (no date) (unknown) [facility] (no value) (units unknown) (unknown) Result panel 944 (unknown) (no date) (unknown) [facility] (no value) (units unknown) (unknown) Result panel 945 (unknown) (no date) (unknown) [facility] (no value) (units unknown) (unknown) Result panel 946 (unknown) (no date) (unknown) [facility] (no value) (units unknown) (unknown) Result panel 947 (unknown) (no date) (unknown) [facility] (no value) (units unknown) (unknown) Result panel 948 (unknown) (no date) (unknown) [facility] (no value) (units unknown) (unknown) Result panel 949 (unknown) (no date) (unknown) [facility] (no value) (units unknown) (unknown) Result panel 950 (unknown) (no date) (unknown) [facility] (no value) (units unknown) (unknown) Result panel 951 (unknown) (no date) (unknown) [facility] (no value) (units unknown) (unknown) Result panel 952 (unknown) (no date) (unknown) [facility] (no value) (units unknown) (unknown) Result panel 953 (unknown) (no date) (unknown) [facility] (no value) (units unknown) (unknown) Result panel 954 (unknown) (no date) (unknown) [facility] (no value) (units unknown) (unknown) Result panel 955 (unknown) (no date) (unknown) [facility] (no value) (units unknown) (unknown) Result panel 956 (unknown) (no date) (unknown) [facility] (no value) (units unknown) (unknown) Result panel 957 (unknown) (no date) (unknown) [facility] (no value) (units unknown) (unknown) Result panel 958 (unknown) (no date) (unknown) [facility] (no value) (units unknown) (unknown) Result panel 959 (unknown) (no date) (unknown) [facility] (no value) (units unknown) (unknown) Result panel 960 (unknown) (no date) (unknown) [facility] (no value) (units unknown) (unknown) Result panel 961 (unknown) (no date) (unknown) [facility] (no value) (units unknown) (unknown) Result panel 962 (unknown) (no date) (unknown) [facility] (no value) (units unknown) (unknown) Result panel 963 (unknown) (no date) (unknown) [facility] (no value) (units unknown) (unknown) Result panel 964 (unknown) (no date) (unknown) [facility] (no value) (units unknown) (unknown) Result panel 965 (unknown) (no date) (unknown) [facility] (no value) (units unknown) (unknown) Result panel 966 (unknown) (no date) (unknown) [facility] (no value) (units unknown) (unknown) Result panel 967 (unknown) (no date) (unknown) [facility] (no value) (units unknown) (unknown) Result panel 968 (unknown) (no date) (unknown) [facility] (no value) (units unknown) (unknown) Result panel 969 (unknown) (no date) (unknown) [facility] (no value) (units unknown) (unknown) Result panel 970 (unknown) (no date) (unknown) [facility] (no value) (units unknown) (unknown) Result panel 971 (unknown) (no date) (unknown) [facility] (no value) (units unknown) (unknown) Result panel 972 (unknown) (no date) (unknown) [facility] (no value) (units unknown) (unknown) Result panel 973 (unknown) (no date) (unknown) [facility] (no value) (units unknown) (unknown) Result panel 974 (unknown) (no date) (unknown) [facility] (no value) (units unknown) (unknown) Result panel 975 (unknown) (no date) (unknown) [facility] (no value) (units unknown) (unknown) Result panel 976 (unknown) (no date) (unknown) [facility] (no value) (units unknown) (unknown) Result panel 977 (unknown) (no date) (unknown) [facility] (no value) (units unknown) (unknown) Result panel 978 (unknown) (no date) (unknown) [facility] (no value) (units unknown) (unknown) Result panel 979 (unknown) (no date) (unknown) [facility] (no value) (units unknown) (unknown) Result panel 980 (unknown) (no date) (unknown) [facility] (no value) (units unknown) (unknown) Result panel 981 (unknown) (no date) (unknown) [facility] (no value) (units unknown) (unknown) Result panel 982 (unknown) (no date) (unknown) [facility] (no value) (units unknown) (unknown) Result panel 983 (unknown) (no date) (unknown) [facility] (no value) (units unknown) (unknown) Result panel 984 (unknown) (no date) (unknown) [facility] (no value) (units unknown) (unknown) Result panel 985 (unknown) (no date) (unknown) [facility] (no value) (units unknown) (unknown) Result panel 986 (unknown) (no date) (unknown) [facility] (no value) (units unknown) (unknown) Result panel 987 (unknown) (no date) (unknown) [facility] (no value) (units unknown) (unknown) Result panel 988 (unknown) (no date) (unknown) [facility] (no value) (units unknown) (unknown) Result panel 989 (unknown) (no date) (unknown) [facility] (no value) (units unknown) (unknown) Result panel 990 (unknown) (no date) (unknown) [facility] (no value) (units unknown) (unknown) Result panel 991 (unknown) (no date) (unknown) [facility] (no value) (units unknown) (unknown) Result panel 992 (unknown) (no date) (unknown) [facility] (no value) (units unknown) (unknown) Result panel 993 (unknown) (no date) (unknown) [facility] (no value) (units unknown) (unknown) Result panel 994 (unknown) (no date) (unknown) [facility] (no value) (units unknown) (unknown) Result panel 995 (unknown) (no date) (unknown) [facility] (no value) (units unknown) (unknown) Result panel 996 (unknown) (no date) (unknown) [facility] (no value) (units unknown) (unknown) Result panel 997 (unknown) (no date) (unknown) [facility] (no value) (units unknown) (unknown) Result panel 998 (unknown) (no date) (unknown) [facility] (no value) (units unknown) (unknown) Result panel 999 (unknown) (no date) (unknown) [facility] (no value) (units unknown) (unknown) Result panel 1000 (unknown) (no date) (unknown) [facility] (no value) (units unknown) (unknown) Result panel 1001 (unknown) (no date) (unknown) [facility] (no value) (units unknown) (unknown) Result panel 1002 (unknown) (no date) (unknown) [facility] (no value) (units unknown) (unknown) Result panel 1003 (unknown) (no date) (unknown) [facility] (no value) (units unknown) (unknown) Result panel 1004 (unknown) (no date) (unknown) [facility] (no value) (units unknown) (unknown) Result panel 1005 (unknown) (no date) (unknown) [facility] (no value) (units unknown) (unknown) Result panel 1006 (unknown) (no date) (unknown) [facility] (no value) (units unknown) (unknown) Result panel 1007 (unknown) (no date) (unknown) [facility] (no value) (units unknown) (unknown) Result panel 1008 (unknown) (no date) (unknown) [facility] (no value) (units unknown) (unknown) Result panel 1009 (unknown) (no date) (unknown) [facility] (no value) (units unknown) (unknown) Result panel 1010 (unknown) (no date) (unknown) [facility] (no value) (units unknown) (unknown) Result panel 1011 (unknown) (no date) (unknown) [facility] (no value) (units unknown) (unknown) Result panel 1012 (unknown) (no date) (unknown) [facility] (no value) (units unknown) (unknown) Result panel 1013 (unknown) (no date) (unknown) [facility] (no value) (units unknown) (unknown) Result panel 1014 (unknown) (no date) (unknown) [facility] (no value) (units unknown) (unknown) Result panel 1015 (unknown) (no date) (unknown) [facility] (no value) (units unknown) (unknown) Result panel 1016 (unknown) (no date) (unknown) [facility] (no value) (units unknown) (unknown) Result panel 1017 (unknown) (no date) (unknown) [facility] (no value) (units unknown) (unknown) Result panel 1018 (unknown) (no date) (unknown) [facility] (no value) (units unknown) (unknown) Result panel 1019 (unknown) (no date) (unknown) [facility] (no value) (units unknown) (unknown) Result panel 1020 (unknown) (no date) (unknown) [facility] (no value) (units unknown) (unknown) Result panel 1021 (unknown) (no date) (unknown) [facility] (no value) (units unknown) (unknown) Result panel 1022 (unknown) (no date) (unknown) [facility] (no value) (units unknown) (unknown) Result panel 1023 (unknown) (no date) (unknown) [facility] (no value) (units unknown) (unknown) Result panel 1024 (unknown) (no date) (unknown) [facility] (no value) (units unknown) (unknown) Result panel 1025 (unknown) (no date) (unknown) [facility] (no value) (units unknown) (unknown) Result panel 1026 (unknown) (no date) (unknown) [facility] (no value) (units unknown) (unknown) Result panel 1027 (unknown) (no date) (unknown) [facility] (no value) (units unknown) (unknown) Result panel 1028 (unknown) (no date) (unknown) [facility] (no value) (units unknown) (unknown) Result panel 1029 (unknown) (no date) (unknown) [facility] (no value) (units unknown) (unknown) Result panel 1030 (unknown) (no date) (unknown) [facility] (no value) (units unknown) (unknown) Result panel 1031 (unknown) (no date) (unknown) [facility] (no value) (units unknown) (unknown) Result panel 1032 (unknown) (no date) (unknown) [facility] (no value) (units unknown) (unknown) Result panel 1033 (unknown) (no date) (unknown) [facility] (no value) (units unknown) (unknown) Result panel 1034 (unknown) (no date) (unknown) [facility] (no value) (units unknown) (unknown) Result panel 1035 (unknown) (no date) (unknown) [facility] (no value) (units unknown) (unknown) Result panel 1036 (unknown) (no date) (unknown) [facility] (no value) (units unknown) (unknown) Result panel 1037 (unknown) (no date) (unknown) [facility] (no value) (units unknown) (unknown) Result panel 1038 (unknown) (no date) (unknown) [facility] (no value) (units unknown) (unknown) Result panel 1039 (unknown) (no date) (unknown) [facility] (no value) (units unknown) (unknown) Result panel 1040 (unknown) (no date) (unknown) [facility] (no value) (units unknown) (unknown) Result panel 1041 (unknown) (no date) (unknown) [facility] (no value) (units unknown) (unknown) Result panel 1042 (unknown) (no date) (unknown) [facility] (no value) (units unknown) (unknown) Result panel 1043 (unknown) (no date) (unknown) [facility] (no value) (units unknown) (unknown) Result panel 1044 (unknown) (no date) (unknown) [facility] (no value) (units unknown) (unknown) Result panel 1045 (unknown) (no date) (unknown) [facility] (no value) (units unknown) (unknown) Result panel 1046 (unknown) (no date) (unknown) [facility] (no value) (units unknown) (unknown) Result panel 1047 (unknown) (no date) (unknown) [facility] (no value) (units unknown) (unknown) Result panel 1048 (unknown) (no date) (unknown) [facility] (no value) (units unknown) (unknown) Result panel 1049 (unknown) (no date) (unknown) [facility] (no value) (units unknown) (unknown) Result panel 1050 (unknown) (no date) (unknown) [facility] (no value) (units unknown) (unknown) Result panel 1051 (unknown) (no date) (unknown) [facility] (no value) (units unknown) (unknown) Result panel 1052 (unknown) (no date) (unknown) [facility] (no value) (units unknown) (unknown) Result panel 1053 (unknown) (no date) (unknown) [facility] (no value) (units unknown) (unknown) Result panel 1054 (unknown) (no date) (unknown) [facility] (no value) (units unknown) (unknown) Result panel 1055 (unknown) (no date) (unknown) [facility] (no value) (units unknown) (unknown) Result panel 1056 (unknown) (no date) (unknown) [facility] (no value) (units unknown) (unknown) Result panel 1057 (unknown) (no date) (unknown) [facility] (no value) (units unknown) (unknown) Result panel 1058 (unknown) (no date) (unknown) [facility] (no value) (units unknown) (unknown) Result panel 1059 (unknown) (no date) (unknown) [facility] (no value) (units unknown) (unknown) Result panel 1060 (unknown) (no date) (unknown) [facility] (no value) (units unknown) (unknown) Result panel 1061 (unknown) (no date) (unknown) [facility] (no value) (units unknown) (unknown) Result panel 1062 (unknown) (no date) (unknown) [facility] (no value) (units unknown) (unknown) Result panel 1063 (unknown) (no date) (unknown) [facility] (no value) (units unknown) (unknown) Result panel 1064 (unknown) (no date) (unknown) [facility] (no value) (units unknown) (unknown) Result panel 1065 (unknown) (no date) (unknown) [facility] (no value) (units unknown) (unknown) Result panel 1066 (unknown) (no date) (unknown) [facility] (no value) (units unknown) (unknown) Result panel 1067 (unknown) (no date) (unknown) [facility] (no value) (units unknown) (unknown) Result panel 1068 (unknown) (no date) (unknown) [facility] (no value) (units unknown) (unknown) Result panel 1069 (unknown) (no date) (unknown) [facility] (no value) (units unknown) (unknown) Result panel 1070 (unknown) (no date) (unknown) [facility] (no value) (units unknown) (unknown) Result panel 1071 (unknown) (no date) (unknown) [facility] (no value) (units unknown) (unknown) Result panel 1072 (unknown) (no date) (unknown) [facility] (no value) (units unknown) (unknown) Result panel 1073 (unknown) (no date) (unknown) [facility] (no value) (units unknown) (unknown) Result panel 1074 (unknown) (no date) (unknown) [facility] (no value) (units unknown) (unknown) Result panel 1075 (unknown) (no date) (unknown) [facility] (no value) (units unknown) (unknown) Result panel 1076 (unknown) (no date) (unknown) [facility] (no value) (units unknown) (unknown) Result panel 1077 (unknown) (no date) (unknown) [facility] (no value) (units unknown) (unknown) Result panel 1078 (unknown) (no date) (unknown) [facility] (no value) (units unknown) (unknown) Result panel 1079 (unknown) (no date) (unknown) [facility] (no value) (units unknown) (unknown) Result panel 1080 (unknown) (no date) (unknown) [facility] (no value) (units unknown) (unknown) Result panel 1081 (unknown) (no date) (unknown) [facility] (no value) (units unknown) (unknown) Result panel 1082 (unknown) (no date) (unknown) [facility] (no value) (units unknown) (unknown) Result panel 1083 (unknown) (no date) (unknown) [facility] (no value) (units unknown) (unknown) Result panel 1084 (unknown) (no date) (unknown) [facility] (no value) (units unknown) (unknown) Result panel 1085 (unknown) (no date) (unknown) [facility] (no value) (units unknown) (unknown) Result panel 1086 (unknown) (no date) (unknown) [facility] (no value) (units unknown) (unknown) Result panel 1087 (unknown) (no date) (unknown) [facility] (no value) (units unknown) (unknown) Result panel 1088 (unknown) (no date) (unknown) [facility] (no value) (units unknown) (unknown) Result panel 1089 (unknown) (no date) (unknown) [facility] (no value) (units unknown) (unknown) Result panel 1090 (unknown) (no date) (unknown) [facility] (no value) (units unknown) (unknown) Result panel 1091 (unknown) (no date) (unknown) [facility] (no value) (units unknown) (unknown) Result panel 1092 (unknown) (no date) (unknown) [facility] (no value) (units unknown) (unknown) Result panel 1093 (unknown) (no date) (unknown) [facility] (no value) (units unknown) (unknown) Result panel 1094 (unknown) (no date) (unknown) [facility] (no value) (units unknown) (unknown) Result panel 1095 (unknown) (no date) (unknown) [facility] (no value) (units unknown) (unknown) Result panel 1096 (unknown) (no date) (unknown) [facility] (no value) (units unknown) (unknown) Result panel 1097 (unknown) (no date) (unknown) [facility] (no value) (units unknown) (unknown) Result panel 1098 (unknown) (no date) (unknown) [facility] (no value) (units unknown) (unknown) Result panel 1099 (unknown) (no date) (unknown) [facility] (no value) (units unknown) (unknown) Result panel 1100 (unknown) (no date) (unknown) [facility] (no value) (units unknown) (unknown) Result panel 1101 (unknown) (no date) (unknown) [facility] (no value) (units unknown) (unknown) Result panel 1102 (unknown) (no date) (unknown) [facility] (no value) (units unknown) (unknown) Result panel 1103 (unknown) (no date) (unknown) [facility] (no value) (units unknown) (unknown) Result panel 1104 (unknown) (no date) (unknown) [facility] (no value) (units unknown) (unknown) Result panel 1105 (unknown) (no date) (unknown) [facility] (no value) (units unknown) (unknown) Result panel 1106 (unknown) (no date) (unknown) [facility] (no value) (units unknown) (unknown) Result panel 1107 (unknown) (no date) (unknown) [facility] (no value) (units unknown) (unknown) Result panel 1108 (unknown) (no date) (unknown) [facility] (no value) (units unknown) (unknown) Result panel 1109 (unknown) (no date) (unknown) [facility] (no value) (units unknown) (unknown) Result panel 1110 (unknown) (no date) (unknown) [facility] (no value) (units unknown) (unknown) Result panel 1111 (unknown) (no date) (unknown) [facility] (no value) (units unknown) (unknown) Result panel 1112 (unknown) (no date) (unknown) [facility] (no value) (units unknown) (unknown) Result panel 1113 (unknown) (no date) (unknown) [facility] (no value) (units unknown) (unknown) Result panel 1114 (unknown) (no date) (unknown) [facility] (no value) (units unknown) (unknown) Result panel 1115 (unknown) (no date) (unknown) [facility] (no value) (units unknown) (unknown) Result panel 1116 (unknown) (no date) (unknown) [facility] (no value) (units unknown) (unknown) Result panel 1117 (unknown) (no date) (unknown) [facility] (no value) (units unknown) (unknown) Result panel 1118 (unknown) (no date) (unknown) [facility] (no value) (units unknown) (unknown) Result panel 1119 (unknown) (no date) (unknown) [facility] (no value) (units unknown) (unknown) Result panel 1120 (unknown) (no date) (unknown) [facility] (no value) (units unknown) (unknown) Result panel 1121 (unknown) (no date) (unknown) [facility] (no value) (units unknown) (unknown) Result panel 1122 (unknown) (no date) (unknown) [facility] (no value) (units unknown) (unknown) Result panel 1123 (unknown) (no date) (unknown) [facility] (no value) (units unknown) (unknown) Result panel 1124 (unknown) (no date) (unknown) [facility] (no value) (units unknown) (unknown) Result panel 1125 (unknown) (no date) (unknown) [facility] (no value) (units unknown) (unknown) Result panel 1126 (unknown) (no date) (unknown) [facility] (no value) (units unknown) (unknown) Result panel 1127 (unknown) (no date) (unknown) [facility] (no value) (units unknown) (unknown) Result panel 1128 (unknown) (no date) (unknown) [facility] (no value) (units unknown) (unknown) Result panel 1129 (unknown) (no date) (unknown) [facility] (no value) (units unknown) (unknown) Result panel 1130 (unknown) (no date) (unknown) [facility] (no value) (units unknown) (unknown) Result panel 1131 (unknown) (no date) (unknown) [facility] (no value) (units unknown) (unknown) Result panel 1132 (unknown) (no date) (unknown) [facility] (no value) (units unknown) (unknown) Result panel 1133 (unknown) (no date) (unknown) [facility] (no value) (units unknown) (unknown) Result panel 1134 (unknown) (no date) (unknown) [facility] (no value) (units unknown) (unknown) Result panel 1135 (unknown) (no date) (unknown) [facility] (no value) (units unknown) (unknown) Result panel 1136 (unknown) (no date) (unknown) [facility] (no value) (units unknown) (unknown) Result panel 1137 (unknown) (no date) (unknown) [facility] (no value) (units unknown) (unknown) Result panel 1138 (unknown) (no date) (unknown) [facility] (no value) (units unknown) (unknown) Result panel 1139 (unknown) (no date) (unknown) [facility] (no value) (units unknown) (unknown) Result panel 1140 (unknown) (no date) (unknown) [facility] (no value) (units unknown) (unknown) Result panel 1141 (unknown) (no date) (unknown) [facility] (no value) (units unknown) (unknown) Result panel 1142 (unknown) (no date) (unknown) [facility] (no value) (units unknown) (unknown) Result panel 1143 (unknown) (no date) (unknown) [facility] (no value) (units unknown) (unknown) Result panel 1144 (unknown) (no date) (unknown) [facility] (no value) (units unknown) (unknown) Result panel 1145 (unknown) (no date) (unknown) [facility] (no value) (units unknown) (unknown) Result panel 1146 (unknown) (no date) (unknown) [facility] (no value) (units unknown) (unknown) Result panel 1147 (unknown) (no date) (unknown) [facility] (no value) (units unknown) (unknown) Result panel 1148 (unknown) (no date) (unknown) [facility] (no value) (units unknown) (unknown) Result panel 1149 (unknown) (no date) (unknown) [facility] (no value) (units unknown) (unknown) Result panel 1150 (unknown) (no date) (unknown) [facility] (no value) (units unknown) (unknown) Result panel 1151 (unknown) (no date) (unknown) [facility] (no value) (units unknown) (unknown) Result panel 1152 (unknown) (no date) (unknown) [facility] (no value) (units unknown) (unknown) Result panel 1153 (unknown) (no date) (unknown) [facility] (no value) (units unknown) (unknown) Result panel 1154 (unknown) (no date) (unknown) [facility] (no value) (units unknown) (unknown) Result panel 1155 (unknown) (no date) (unknown) [facility] (no value) (units unknown) (unknown) Result panel 1156 (unknown) (no date) (unknown) [facility] (no value) (units unknown) (unknown) Result panel 1157 (unknown) (no date) (unknown) [facility] (no value) (units unknown) (unknown) Result panel 1158 (unknown) (no date) (unknown) [facility] (no value) (units unknown) (unknown) Result panel 1159 (unknown) (no date) (unknown) [facility] (no value) (units unknown) (unknown) Result panel 1160 (unknown) (no date) (unknown) [facility] (no value) (units unknown) (unknown) Result panel 1161 (unknown) (no date) (unknown) [facility] (no value) (units unknown) (unknown) Result panel 1162 (unknown) (no date) (unknown) [facility] (no value) (units unknown) (unknown) Result panel 1163 (unknown) (no date) (unknown) [facility] (no value) (units unknown) (unknown) Result panel 1164 (unknown) (no date) (unknown) [facility] (no value) (units unknown) (unknown) Result panel 1165 (unknown) (no date) (unknown) [facility] (no value) (units unknown) (unknown) Result panel 1166 (unknown) (no date) (unknown) [facility] (no value) (units unknown) (unknown) Result panel 1167 (unknown) (no date) (unknown) [facility] (no value) (units unknown) (unknown) Result panel 1168 (unknown) (no date) (unknown) [facility] (no value) (units unknown) (unknown) Result panel 1169 (unknown) (no date) (unknown) [facility] (no value) (units unknown) (unknown) Result panel 1170 (unknown) (no date) (unknown) [facility] (no value) (units unknown) (unknown) Result panel 1171 (unknown) (no date) (unknown) [facility] (no value) (units unknown) (unknown) Result panel 1172 (unknown) (no date) (unknown) [facility] (no value) (units unknown) (unknown) Result panel 1173 (unknown) (no date) (unknown) [facility] (no value) (units unknown) (unknown) Result panel 1174 (unknown) (no date) (unknown) [facility] (no value) (units unknown) (unknown) Result panel 1175 (unknown) (no date) (unknown) [facility] (no value) (units unknown) (unknown) Result panel 1176 (unknown) (no date) (unknown) [facility] (no value) (units unknown) (unknown) Result panel 1177 (unknown) (no date) (unknown) [facility] (no value) (units unknown) (unknown) Result panel 1178 (unknown) (no date) (unknown) [facility] (no value) (units unknown) (unknown) Result panel 1179 (unknown) (no date) (unknown) [facility] (no value) (units unknown) (unknown) Result panel 1180 (unknown) (no date) (unknown) [facility] (no value) (units unknown) (unknown) Result panel 1181 (unknown) (no date) (unknown) [facility] (no value) (units unknown) (unknown) Result panel 1182 (unknown) (no date) (unknown) [facility] (no value) (units unknown) (unknown) Result panel 1183 (unknown) (no date) (unknown) [facility] (no value) (units unknown) (unknown) Result panel 1184 (unknown) (no date) (unknown) [facility] (no value) (units unknown) (unknown) Result panel 1185 (unknown) (no date) (unknown) [facility] (no value) (units unknown) (unknown) Result panel 1186 (unknown) (no date) (unknown) [facility] (no value) (units unknown) (unknown) Result panel 1187 (unknown) (no date) (unknown) [facility] (no value) (units unknown) (unknown) Result panel 1188 (unknown) (no date) (unknown) [facility] (no value) (units unknown) (unknown) Result panel 1189 (unknown) (no date) (unknown) [facility] (no value) (units unknown) (unknown) Result panel 1190 (unknown) (no date) (unknown) [facility] (no value) (units unknown) (unknown) Result panel 1191 (unknown) (no date) (unknown) [facility] (no value) (units unknown) (unknown) Result panel 1192 (unknown) (no date) (unknown) [facility] (no value) (units unknown) (unknown) Result panel 1193 (unknown) (no date) (unknown) [facility] (no value) (units unknown) (unknown) Result panel 1194 (unknown) (no date) (unknown) [facility] (no value) (units unknown) (unknown) Result panel 1195 (unknown) (no date) (unknown) [facility] (no value) (units unknown) (unknown) Result panel 1196 (unknown) (no date) (unknown) [facility] (no value) (units unknown) (unknown) Result panel 1197 (unknown) (no date) (unknown) [facility] (no value) (units unknown) (unknown) Result panel 1198 (unknown) (no date) (unknown) [facility] (no value) (units unknown) (unknown) Result panel 1199 (unknown) (no date) (unknown) [facility] (no value) (units unknown) (unknown) Result panel 1200 (unknown) (no date) (unknown) [facility] (no value) (units unknown) (unknown) Result panel 1201 (unknown) (no date) (unknown) [facility] (no value) (units unknown) (unknown) Result panel 1202 (unknown) (no date) (unknown) [facility] (no value) (units unknown) (unknown) Result panel 1203 (unknown) (no date) (unknown) [facility] (no value) (units unknown) (unknown) Result panel 1204 (unknown) (no date) (unknown) [facility] (no value) (units unknown) (unknown) Result panel 1205 (unknown) (no date) (unknown) [facility] (no value) (units unknown) (unknown) Result panel 1206 (unknown) (no date) (unknown) [facility] (no value) (units unknown) (unknown) Result panel 1207 (unknown) (no date) (unknown) [facility] (no value) (units unknown) (unknown) Result panel 1208 (unknown) (no date) (unknown) [facility] (no value) (units unknown) (unknown) Result panel 1209 (unknown) (no date) (unknown) [facility] (no value) (units unknown) (unknown) Result panel 1210 (unknown) (no date) (unknown) [facility] (no value) (units unknown) (unknown) Result panel 1211 (unknown) (no date) (unknown) [facility] (no value) (units unknown) (unknown) Result panel 1212 (unknown) (no date) (unknown) [facility] (no value) (units unknown) (unknown) Result panel 1213 (unknown) (no date) (unknown) [facility] (no value) (units unknown) (unknown) Result panel 1214 (unknown) (no date) (unknown) [facility] (no value) (units unknown) (unknown) Result panel 1215 (unknown) (no date) (unknown) [facility] (no value) (units unknown) (unknown) Result panel 1216 (unknown) (no date) (unknown) [facility] (no value) (units unknown) (unknown) Result panel 1217 (unknown) (no date) (unknown) [facility] (no value) (units unknown) (unknown) Result panel 1218 (unknown) (no date) (unknown) [facility] (no value) (units unknown) (unknown) Result panel 1219 (unknown) (no date) (unknown) [facility] (no value) (units unknown) (unknown) Result panel 1220 (unknown) (no date) (unknown) [facility] (no value) (units unknown) (unknown) Result panel 1221 (unknown) (no date) (unknown) [facility] (no value) (units unknown) (unknown) Result panel 1222 (unknown) (no date) (unknown) [facility] (no value) (units unknown) (unknown) Result panel 1223 (unknown) (no date) (unknown) [facility] (no value) (units unknown) (unknown) Result panel 1224 (unknown) (no date) (unknown) [facility] (no value) (units unknown) (unknown) Result panel 1225 (unknown) (no date) (unknown) [facility] (no value) (units unknown) (unknown) Result panel 1226 (unknown) (no date) (unknown) [facility] (no value) (units unknown) (unknown) Result panel 1227 (unknown) (no date) (unknown) [facility] (no value) (units unknown) (unknown) Result panel 1228 (unknown) (no date) (unknown) [facility] (no value) (units unknown) (unknown) Result panel 1229 (unknown) (no date) (unknown) [facility] (no value) (units unknown) (unknown) Result panel 1230 (unknown) (no date) (unknown) [facility] (no value) (units unknown) (unknown) Result panel 1231 (unknown) (no date) (unknown) [facility] (no value) (units unknown) (unknown) Result panel 1232 (unknown) (no date) (unknown) [facility] (no value) (units unknown) (unknown) Result panel 1233 (unknown) (no date) (unknown) [facility] (no value) (units unknown) (unknown) Result panel 1234 (unknown) (no date) (unknown) [facility] (no value) (units unknown) (unknown) Result panel 1235 (unknown) (no date) (unknown) [facility] (no value) (units unknown) (unknown) Result panel 1236 (unknown) (no date) (unknown) [facility] (no value) (units unknown) (unknown) Result panel 1237 (unknown) (no date) (unknown) [facility] (no value) (units unknown) (unknown) Result panel 1238 (unknown) (no date) (unknown) [facility] (no value) (units unknown) (unknown) Result panel 1239 (unknown) (no date) (unknown) [facility] (no value) (units unknown) (unknown) Result panel 1240 (unknown) (no date) (unknown) [facility] (no value) (units unknown) (unknown) Result panel 1241 (unknown) (no date) (unknown) [facility] (no value) (units unknown) (unknown) Result panel 1242 (unknown) (no date) (unknown) [facility] (no value) (units unknown) (unknown) Result panel 1243 (unknown) (no date) (unknown) [facility] (no value) (units unknown) (unknown) Result panel 1244 (unknown) (no date) (unknown) [facility] (no value) (units unknown) (unknown) Result panel 1245 (unknown) (no date) (unknown) [facility] (no value) (units unknown) (unknown) Result panel 1246 (unknown) (no date) (unknown) [facility] (no value) (units unknown) (unknown) Result panel 1247 (unknown) (no date) (unknown) [facility] (no value) (units unknown) (unknown) Result panel 1248 (unknown) (no date) (unknown) [facility] (no value) (units unknown) (unknown) Result panel 1249 (unknown) (no date) (unknown) [facility] (no value) (units unknown) (unknown) Result panel 1250 (unknown) (no date) (unknown) [facility] (no value) (units unknown) (unknown) Result panel 1251 (unknown) (no date) (unknown) [facility] (no value) (units unknown) (unknown) Result panel 1252 (unknown) (no date) (unknown) [facility] (no value) (units unknown) (unknown) Result panel 1253 (unknown) (no date) (unknown) [facility] (no value) (units unknown) (unknown) Result panel 1254 (unknown) (no date) (unknown) [facility] (no value) (units unknown) (unknown) Result panel 1255 (unknown) (no date) (unknown) [facility] (no value) (units unknown) (unknown) Result panel 1256 (unknown) (no date) (unknown) [facility] (no value) (units unknown) (unknown) Result panel 1257 (unknown) (no date) (unknown) [facility] (no value) (units unknown) (unknown) Result panel 1258 (unknown) (no date) (unknown) [facility] (no value) (units unknown) (unknown) Result panel 1259 (unknown) (no date) (unknown) [facility] (no value) (units unknown) (unknown) Result panel 1260 (unknown) (no date) (unknown) [facility] (no value) (units unknown) (unknown) Result panel 1261 (unknown) (no date) (unknown) [facility] (no value) (units unknown) (unknown) Result panel 1262 (unknown) (no date) (unknown) [facility] (no value) (units unknown) (unknown) Result panel 1263 (unknown) (no date) (unknown) [facility] (no value) (units unknown) (unknown) Result panel 1264 (unknown) (no date) (unknown) [facility] (no value) (units unknown) (unknown) Result panel 1265 (unknown) (no date) (unknown) [facility] (no value) (units unknown) (unknown) Result panel 1266 (unknown) (no date) (unknown) [facility] (no value) (units unknown) (unknown) Result panel 1267 (unknown) (no date) (unknown) [facility] (no value) (units unknown) (unknown) Result panel 1268 (unknown) (no date) (unknown) [facility] (no value) (units unknown) (unknown) Result panel 1269 (unknown) (no date) (unknown) [facility] (no value) (units unknown) (unknown) Result panel 1270 (unknown) (no date) (unknown) [facility] (no value) (units unknown) (unknown) Result panel 1271 (unknown) (no date) (unknown) [facility] (no value) (units unknown) (unknown) Result panel 1272 (unknown) (no date) (unknown) [facility] (no value) (units unknown) (unknown) Result panel 1273 (unknown) (no date) (unknown) [facility] (no value) (units unknown) (unknown) Result panel 1274 (unknown) (no date) (unknown) [facility] (no value) (units unknown) (unknown) Result panel 1275 (unknown) (no date) (unknown) [facility] (no value) (units unknown) (unknown) Result panel 1276 (unknown) (no date) (unknown) [facility] (no value) (units unknown) (unknown) Result panel 1277 (unknown) (no date) (unknown) (unknown) 0 /ul (unknown) (unknown) (no date) (unknown) (unknown) 0.8 % (unknown) (unknown) (no date) (unknown) (unknown) 12.9 g/dl (unknown) (unknown) (no date) (unknown) (unknown) 14.1 % (unknown) (unknown) (no date) (unknown) (unknown) 1700 /ul (unknown) (unknown) (no date) (unknown) (unknown) 231 x10 3/ul (unknown) (unknown) (no date) (unknown) (unknown) 27.6 % (unknown) (unknown) (no date) (unknown) (unknown) 28.9 pg (unknown) (unknown) (no date) (unknown) (unknown) 300 /ul (unknown) (unknown) (no date) (unknown) (unknown) 32.8 % (unknown) (unknown) (no date) (unknown) (unknown) 3700 /ul (unknown) (unknown) (no date) (unknown) (unknown) 39.3 % (unknown) (unknown) (no date) (unknown) (unknown) 4.46 x10 6/ul (unknown) (unknown) (no date) (unknown) (unknown) 400 /ul (unknown) (unknown) (no date) (unknown) (unknown) 5.6 % (unknown) (unknown) (no date) (unknown) (unknown) 59.3 % (unknown) (unknown) (no date) (unknown) (unknown) 6.2 x10 3/ul (unknown) (unknown) (no date) (unknown) (unknown) 6.7 % (unknown) (unknown) (no date) (unknown) (unknown) 88.2 fl (unknown) Result panel 1278 (unknown) (no date) (unknown) (unknown) 5.4 % (unknown) (unknown) (no date) (unknown) (unknown) 5.4 % (unknown) Result panel 1279 (unknown) (no date) (unknown) (unknown) 0.2 e.u./dl (unknown) (unknown) (no date) (unknown) (unknown) 1 (units unknown) (unknown) (unknown) (no date) (unknown) (unknown) 1.020 (units unknown) (unknown) (unknown) (no date) (unknown) (unknown) 6.0 (units unknown) (unknown) (unknown) (no date) (unknown) (unknown) NEGATIVE (units unknown) (unknown) (unknown) (no date) (unknown) (unknown) NEGATIVE g/dl (unknown) (unknown) (no date) (unknown) (unknown) SL CLOUDY (units unknown) (unknown) (unknown) (no date) (unknown) (unknown) TRACE (units unknown) (unknown) (unknown) (no date) (unknown) (unknown) YELLOW (units unknown) (unknown) (unknown) (no date) (unknown) (unknown) YELLOW (units unknown) (unknown) Result panel 1280 (unknown) (no date) (unknown) (unknown) 0.2 e.u./dl (unknown) (unknown) (no date) (unknown) (unknown) 1 (units unknown) (unknown) (unknown) (no date) (unknown) (unknown) 1-5 /HPF (units unknown) (unknown) (unknown) (no date) (unknown) (unknown) 1-5/HPF (units unknown) (unknown) (unknown) (no date) (unknown) (unknown) 1.020 (units unknown) (unknown) (unknown) (no date) (unknown) (unknown) 6.0 (units unknown) (unknown) (unknown) (no date) (unknown) (unknown) NEGATIVE (units unknown) (unknown) (unknown) (no date) (unknown) (unknown) NEGATIVE g/dl (unknown) (unknown) (no date) (unknown) (unknown) None Seen (units unknown) (unknown) (unknown) (no date) (unknown) (unknown) None Seen (units unknown) (unknown) (unknown) (no date) (unknown) (unknown) SL CLOUDY (units unknown) (unknown) (unknown) (no date) (unknown) (unknown) Specimen Cultured (units unknown) (unknown) (unknown) (no date) (unknown) (unknown) TRACE (units unknown) (unknown) (unknown) (no date) (unknown) (unknown) YELLOW (units unknown) (unknown) (unknown) (no date) (unknown) (unknown) YELLOW (units unknown) (unknown) Result panel 1281 (unknown) (no date) (unknown) (unknown) 1.18 mg/dl (unknown) (unknown) (no date) (unknown) (unknown) 100 mmol/l (unknown) (unknown) (no date) (unknown) (unknown) 139 mmol/l (unknown) (unknown) (no date) (unknown) (unknown) 21.2 (units unknown) (unknown) (unknown) (no date) (unknown) (unknown) 25 mg/dl (unknown) (unknown) (no date) (unknown) (unknown) 31 mmol/l (unknown) (unknown) (no date) (unknown) (unknown) 4.1 mmol/l (unknown) (unknown) (no date) (unknown) (unknown) 49 ml/min (unknown) (unknown) (no date) (unknown) (unknown) 49 ml/min (unknown) (unknown) (no date) (unknown) (unknown) 78 mg/dl (unknown) (unknown) (no date) (unknown) (unknown) 78 mg/dl (unknown) (unknown) (no date) (unknown) (unknown) 9.1 mg/dl (unknown) Result panel 1282 (unknown) (no date) (unknown) (unknown) (no value) (units unknown) (unknown) (unknown) (no date) (unknown) (unknown) Very Early Growth: Culture too young for work-up reincubated (units unknown) (unknown) Result panel 1283 (unknown) (no date) (unknown) (unknown) (no value) (units unknown) (unknown) (unknown) (no date) (unknown) (unknown) Mixed gram + deneen. Deemed unsuitable for further studies. (units unknown) (unknown) Result panel 1284 (unknown) (no date) (unknown) (unknown) (no value) (units unknown) (unknown) (unknown) (no date) (unknown) (unknown) 09/14/22 (units unknown) (unknown) (unknown) (no date) (unknown) (unknown) [address] [place] [address] (units unknown) (unknown) (unknown) (no date) (unknown) (unknown) 18:38. (units unknown) (unknown) (unknown) (no date) (unknown) (unknown) 09/14/2022, (units unknown) (unknown) (unknown) (no date) (unknown) (unknown) [id number] (units unknown) (unknown) (unknown) (no date) (unknown) (unknown) Accession Number: [id number] (units unknown) (unknown) (unknown) (no date) (unknown) (unknown) Age/Sex: 72 / F Date of Service: (units unknown) (unknown) (unknown) (no date) (unknown) (unknown) [place] [address] (units unknown) (unknown) (unknown) (no date) (unknown) (unknown) Approved by: Mani Charles M.D. on 09/14/2022 at 19:51 (units unknown) (unknown) (unknown) (no date) (unknown) (unknown) [facility]ERAL [facility], 05/17/2022, 14:19. [facility], CR, XR HIP LT 1V, (units unknown) (unknown) (unknown) (no date) (unknown) (unknown) Bones: Patient is status post left hip arthroplasty, with hardware components (units unknown) (unknown) (unknown) (no date) (unknown) (unknown) COMPARISON: [facility], CR, XR PELVIS (units unknown) (unknown) (unknown) (no date) (unknown) (unknown) : 1950 Acct:[id number] (units unknown) (unknown) (unknown) (no date) (unknown) (unknown) Dictated by: Mani Charles M.D. on 09/14/2022 at 19:51 (units unknown) (unknown) (unknown) (no date) (unknown) (unknown) FINDINGS: (units unknown) (unknown) (unknown) (no date) (unknown) (unknown) IMPRESSION: (units unknown) (unknown) (unknown) (no date) (unknown) (unknown) INDICATIONS: prosthesis placement (units unknown) (unknown) (unknown) (no date) (unknown) (unknown) [facility] (units unknown) (unknown) (unknown) (no date) (unknown) (unknown) Loc: AC 222-1 (units unknown) (unknown) (unknown) (no date) (unknown) (unknown) Normal postoperative examination. (units unknown) (unknown) (unknown) (no date) (unknown) (unknown) Ordering Provider: Nathalia Leos P.A-C (units unknown) (unknown) (unknown) (no date) (unknown) (unknown) PROCEDURE: XR HIP W PEL IF DONE LT 2V (units unknown) (unknown) (unknown) (no date) (unknown) (unknown) Patient: Barbara Garcia MR#: [id number] (units unknown) (unknown) (unknown) (no date) (unknown) (unknown) Procedure: XR hip w pel if done LT 2V (units unknown) (unknown) (unknown) (no date) (unknown) (unknown) Signed (units unknown) (unknown) (unknown) (no date) (unknown) (unknown) Soft tissues: Overlying postoperative changes are noted. No suspicious soft (units unknown) (unknown) (unknown) (no date) (unknown) (unknown) TECHNIQUE: AP pelvis and lateral view of the left hip acquired. (units unknown) (unknown) (unknown) (no date) (unknown) (unknown) WITH (units unknown) (unknown) (unknown) (no date) (unknown) (unknown) XRay Report (units unknown) (unknown) (unknown) (no date) (unknown) (unknown) appear intact. (units unknown) (unknown) (unknown) (no date) (unknown) (unknown) densities. (units unknown) (unknown) (unknown) (no date) (unknown) (unknown) expected positions. The hip joint appears congruent. The visualized bony (units unknown) (unknown) (unknown) (no date) (unknown) (unknown) in (units unknown) (unknown) (unknown) (no date) (unknown) (unknown) structures (units unknown) (unknown) (unknown) (no date) (unknown) (unknown) tissue (units unknown) (unknown) Result panel 1285 (unknown) (no date) (unknown) (unknown) Negative (units unknown) (unknown) (unknown) (no date) (unknown) (unknown) Negative (units unknown) (unknown) Result panel 1286 (unknown) (no date) (unknown) (unknown) (no value) (units unknown) (unknown) (unknown) (no date) (unknown) (unknown) 09/14/22 1602 (units unknown) (unknown) (unknown) (no date) (unknown) (unknown) 3151 (units unknown) (unknown) (unknown) (no date) (unknown) (unknown) Age/Sex: 72 / F (units unknown) (unknown) (unknown) (no date) (unknown) (unknown) COVID-19 status: Negative (units unknown) (unknown) (unknown) (no date) (unknown) (unknown) COVID-19 (units unknown) (unknown) (unknown) (no date) (unknown) (unknown) Changes to H+P: No (units unknown) (unknown) (unknown) (no date) (unknown) (unknown) : 1950 Acct:[id number] (units unknown) (unknown) (unknown) (no date) (unknown) (unknown) Date of Service: 09/14/22 (units unknown) (unknown) (unknown) (no date) (unknown) (unknown) History + Physical reviewed/Exam performed by Physician: Yes (units unknown) (unknown) (unknown) (no date) (unknown) (unknown) Interval Note (units unknown) (unknown) (unknown) (no date) (unknown) (unknown) [address] [address] (units unknown) (unknown) (unknown) (no date) (unknown) (unknown) Patient: Charisma Garciayc e MR#: [id number] (units unknown) (unknown) (unknown) (no date) (unknown) (unknown) Pre-operative Note (units unknown) (unknown) (unknown) (no date) (unknown) (unknown) Provider: Willis River MD (units unknown) (unknown) (unknown) (no date) (unknown) (unknown) Signed By:<Electronically signed by Annika River MD> (units unknown) (unknown) Result panel 1287 (unknown) (no date) (unknown) (unknown) (no value) (units unknown) (unknown) (unknown) (no date) (unknown) (unknown) 3151 (units unknown) (unknown) (unknown) (no date) (unknown) (unknown) Age/Sex: 72 / F (units unknown) (unknown) (unknown) (no date) (unknown) (unknown) Anesthesia Type: General and Spinal (units unknown) (unknown) (unknown) (no date) (unknown) (unknown) [employer]: Nathalia Leos (units unknown) (unknown) (unknown) (no date) (unknown) (unknown) Closure Type: primary (units unknown) (unknown) (unknown) (no date) (unknown) (unknown) : 1950 Acct:[id number] (units unknown) (unknown) (unknown) (no date) (unknown) (unknown) Date of Service: 09/14/22 (units unknown) (unknown) (unknown) (no date) (unknown) (unknown) Date of procedure: 09/14/22 (units unknown) (unknown) (unknown) (no date) (unknown) (unknown) Findings: (units unknown) (unknown) (unknown) (no date) (unknown) (unknown) Indications: (units unknown) (unknown) (unknown) (no date) (unknown) (unknown) [address] [address] (units unknown) (unknown) (unknown) (no date) (unknown) (unknown) Left total hip arthroplasty posterior approach (units unknown) (unknown) (unknown) (no date) (unknown) (unknown) Operative Date/Time/Diagnoses (units unknown) (unknown) (unknown) (no date) (unknown) (unknown) Operative Note (units unknown) (unknown) (unknown) (no date) (unknown) (unknown) Operative Notes (units unknown) (unknown) (unknown) (no date) (unknown) (unknown) Patient: Barbara Garcia MR#: [id number] (units unknown) (unknown) (unknown) (no date) (unknown) (unknown) Post-op diagnosis: same (units unknown) (unknown) (unknown) (no date) (unknown) (unknown) Pre-op diagnosis: Le ft hip OA (units unknown) (unknown) (unknown) (no date) (unknown) (unknown) Procedure + Clinicians (units unknown) (unknown) (unknown) (no date) (unknown) (unknown) Procedure: (units unknown) (unknown) (unknown) (no date) (unknown) (unknown) Provider: Willis River MD (units unknown) (unknown) (unknown) (no date) (unknown) (unknown) Risks discussed included, but were not limited to, failure to relieve pain, leg (units unknown) (unknown) (unknown) (no date) (unknown) (unknown) Same procedure as scheduled: Yes (units unknown) (unknown) (unknown) (no date) (unknown) (unknown) Severe left hip osteoarthritis, adequate stability (units unknown) (unknown) (unknown) (no date) (unknown) (unknown) Signed By: (units unknown) (unknown) (unknown) (no date) (unknown) (unknown) Specimen(s): none sent (units unknown) (unknown) (unknown) (no date) (unknown) (unknown) Surgeon: Annika River (units unknown) (unknown) (unknown) (no date) (unknown) (unknown) The patient has had progressively worsening left hip pain with radiographic (units unknown) (unknown) (unknown) (no date) (unknown) (unknown) Time of procedure: 16:30 (units unknown) (unknown) (unknown) (no date) (unknown) (unknown) alternatives to surgery were discussed with the patient prior to proceeding. (units unknown) (unknown) (unknown) (no date) (unknown) (unknown) and , as well a s the potential need for eventual revision of the (units unknown) (unknown) (unknown) (no date) (unknown) (unknown) changes consistent with arthritis. Non-operative management has failed and the (units unknown) (unknown) (unknown) (no date) (unknown) (unknown) length discrepancy, dislocation, stiffness, infection, nerve damage, deep venous (units unknown) (unknown) (unknown) (no date) (unknown) (unknown) patient has requeste d total hip replacement. The risks, benefits and (units unknown) (unknown) (unknown) (no date) (unknown) (unknown) prosthetic. (units unknown) (unknown) (unknown) (no date) (unknown) (unknown) thrombosis, pulmonar y embolism, stroke, coma, heart attack, permanent paralysis (units unknown) (unknown) Result panel 1288 (unknown) (no date) (unknown) (unknown) (no value) (units unknown) (unknown) (unknown) (no date) (unknown) (unknown) 3151 (units unknown) (unknown) (unknown) (no date) (unknown) (unknown) Age/Sex: 72 / F (units unknown) (unknown) (unknown) (no date) (unknown) (unknown) Anesthesia Type: General and Spinal (units unknown) (unknown) (unknown) (no date) (unknown) (unknown) [employer]: Nathalia Leos (units unknown) (unknown) (unknown) (no date) (unknown) (unknown) Blood products transfused: none (units unknown) (unknown) (unknown) (no date) (unknown) (unknown) Closure Type: primary (units unknown) (unknown) (unknown) (no date) (unknown) (unknown) : 1950 Acct:[id number] (units unknown) (unknown) (unknown) (no date) (unknown) (unknown) Date of Service: 09/14/22 (units unknown) (unknown) (unknown) (no date) (unknown) (unknown) Date of procedure: 09/14/22 (units unknown) (unknown) (unknown) (no date) (unknown) (unknown) Estimated Blood Loss (mL): 250 (units unknown) (unknown) (unknown) (no date) (unknown) (unknown) Findings: (units unknown) (unknown) (unknown) (no date) (unknown) (unknown) Indications: (units unknown) (unknown) (unknown) (no date) (unknown) (unknown) [address] [address] (units unknown) (unknown) (unknown) (no date) (unknown) (unknown) Left total hip arthroplasty posterior approach (units unknown) (unknown) (unknown) (no date) (unknown) (unknown) Operative Date/Time/Diagnoses (units unknown) (unknown) (unknown) (no date) (unknown) (unknown) Operative Note (units unknown) (unknown) (unknown) (no date) (unknown) (unknown) Operative Notes (units unknown) (unknown) (unknown) (no date) (unknown) (unknown) Patient: Barbara Garcia MR#: [id number] (units unknown) (unknown) (unknown) (no date) (unknown) (unknown) Post-op diagnosis: same (units unknown) (unknown) (unknown) (no date) (unknown) (unknown) Pre-op diagnosis: Le ft hip OA (units unknown) (unknown) (unknown) (no date) (unknown) (unknown) Procedure + Clinicians (units unknown) (unknown) (unknown) (no date) (unknown) (unknown) Procedure: (units unknown) (unknown) (unknown) (no date) (unknown) (unknown) Provider: Willis River MD (units unknown) (unknown) (unknown) (no date) (unknown) (unknown) Risks discussed included, but were not limited to, failure to relieve pain, leg (units unknown) (unknown) (unknown) (no date) (unknown) (unknown) Same procedure as scheduled: Yes (units unknown) (unknown) (unknown) (no date) (unknown) (unknown) Severe left hip osteoarthritis, adequate stability (units unknown) (unknown) (unknown) (no date) (unknown) (unknown) Signed By: (units unknown) (unknown) (unknown) (no date) (unknown) (unknown) Specimen(s): none sent (units unknown) (unknown) (unknown) (no date) (unknown) (unknown) Surgeon: Annika River (units unknown) (unknown) (unknown) (no date) (unknown) (unknown) The patient has had progressively worsening left hip pain with radiographic (units unknown) (unknown) (unknown) (no date) (unknown) (unknown) Time of procedure: 16:30 (units unknown) (unknown) (unknown) (no date) (unknown) (unknown) alternatives to surgery were discussed with the patient prior to proceeding. (units unknown) (unknown) (unknown) (no date) (unknown) (unknown) and , as well a s the potential need for eventual revision of the (units unknown) (unknown) (unknown) (no date) (unknown) (unknown) changes consistent with arthritis. Non-operative management has failed and the (units unknown) (unknown) (unknown) (no date) (unknown) (unknown) length discrepancy, dislocation, stiffness, infection, nerve damage, deep venous (units unknown) (unknown) (unknown) (no date) (unknown) (unknown) patient has requeste d total hip replacement. The risks, benefits and (units unknown) (unknown) (unknown) (no date) (unknown) (unknown) prosthetic. (units unknown) (unknown) (unknown) (no date) (unknown) (unknown) thrombosis, pulmonar y embolism, stroke, coma, heart attack, permanent paralysis (units unknown) (unknown) Result panel 1289 (unknown) (no date) (unknown) (unknown) (no value) (units unknown) (unknown) (unknown) (no date) (unknown) (unknown) 3151 (units unknown) (unknown) (unknown) (no date) (unknown) (unknown) A trial neutral line r was placed. (units unknown) (unknown) (unknown) (no date) (unknown) (unknown) Age/Sex: 72 / F (units unknown) (unknown) (unknown) (no date) (unknown) (unknown) Anesthesia Type: General and Spinal (units unknown) (unknown) (unknown) (no date) (unknown) (unknown) [employer]: Nathalia Leos (units unknown) (unknown) (unknown) (no date) (unknown) (unknown) Blood products transfused: none (units unknown) (unknown) (unknown) (no date) (unknown) (unknown) Closure Type: primary (units unknown) (unknown) (unknown) (no date) (unknown) (unknown) Complications: none (units unknown) (unknown) (unknown) (no date) (unknown) (unknown) Condition: stable (units unknown) (unknown) (unknown) (no date) (unknown) (unknown) : 1950 Acct:[id number] (units unknown) (unknown) (unknown) (no date) (unknown) (unknown) Date of Service: 09/14/22 (units unknown) (unknown) (unknown) (no date) (unknown) (unknown) Date of procedure: 09/14/22 (units unknown) (unknown) (unknown) (no date) (unknown) (unknown) Disposition: Acute Care (units unknown) (unknown) (unknown) (no date) (unknown) (unknown) Estimated Blood Loss (mL): 250 (units unknown) (unknown) (unknown) (no date) (unknown) (unknown) Findings: (units unknown) (unknown) (unknown) (no date) (unknown) (unknown) Indications: (units unknown) (unknown) (unknown) (no date) (unknown) (unknown) [address] [address] (units unknown) (unknown) (unknown) (no date) (unknown) (unknown) Left total hip arthroplasty posterior approach (units unknown) (unknown) (unknown) (no date) (unknown) (unknown) Operative Date/Time/Diagnoses (units unknown) (unknown) (unknown) (no date) (unknown) (unknown) Operative Note (units unknown) (unknown) (unknown) (no date) (unknown) (unknown) Operative Notes (units unknown) (unknown) (unknown) (no date) (unknown) (unknown) Patient: Barbara Garcia MR#: [id number] (units unknown) (unknown) (unknown) (no date) (unknown) (unknown) Plan for aftercare: (units unknown) (unknown) (unknown) (no date) (unknown) (unknown) Post-op diagnosis: same (units unknown) (unknown) (unknown) (no date) (unknown) (unknown) Post-operative (units unknown) (unknown) (unknown) (no date) (unknown) (unknown) Pre-op diagnosis: Le ft hip OA (units unknown) (unknown) (unknown) (no date) (unknown) (unknown) Procedure + Clinicians (units unknown) (unknown) (unknown) (no date) (unknown) (unknown) Procedure in detail: (units unknown) (unknown) (unknown) (no date) (unknown) (unknown) Procedure: (units unknown) (unknown) (unknown) (no date) (unknown) (unknown) Prosthetic devices, grafts, tissues, transplants, or devices: (units unknown) (unknown) (unknown) (no date) (unknown) (unknown) Provider: Willis River MD (units unknown) (unknown) (unknown) (no date) (unknown) (unknown) R3 (units unknown) (unknown) (unknown) (no date) (unknown) (unknown) Retractors were plac ed around the femur. The canal was opened with a box (units unknown) (unknown) (unknown) (no date) (unknown) (unknown) Retractors were plac ed to expose the acetabulum. The labrum and central soft (units unknown) (unknown) (unknown) (no date) (unknown) (unknown) Risks discussed included, but were not limited to, failure to relieve pain, leg (units unknown) (unknown) (unknown) (no date) (unknown) (unknown) Same procedure as scheduled: Yes (units unknown) (unknown) (unknown) (no date) (unknown) (unknown) Severe left hip osteoarthritis, adequate stability (units unknown) (unknown) (unknown) (no date) (unknown) (unknown) Signed By: (units unknown) (unknown) (unknown) (no date) (unknown) (unknown) Mirian mendez standard offset, neutral poly liner,one 6.5 mm screw, (units unknown) (unknown) (unknown) (no date) (unknown) (unknown) Specimen(s): none sent (units unknown) (unknown) (unknown) (no date) (unknown) (unknown) Surgeon: Annika River (units unknown) (unknown) (unknown) (no date) (unknown) (unknown) The acetabular liner was impacted into position. The final stem was then (units unknown) (unknown) (unknown) (no date) (unknown) (unknown) The broach was place d in the canal. A trial head and neck were then placed and (units unknown) (unknown) (unknown) (no date) (unknown) (unknown) The capsulomuscular flap was then repaired to the greater trochanter though an (units unknown) (unknown) (unknown) (no date) (unknown) (unknown) The hip was approach ed through an approximately 20 cm incision centered over the (units unknown) (unknown) (unknown) (no date) (unknown) (unknown) The patient has had progressively worsening left hip pain with radiographic (units unknown) (unknown) (unknown) (no date) (unknown) (unknown) The patient was seen in the pre-operative area, where the patient identified the (units unknown) (unknown) (unknown) (no date) (unknown) (unknown) The patient will be maintained on a standard total hip replacement protocol with (units unknown) (unknown) (unknown) (no date) (unknown) (unknown) Time of procedure: 16:30 (units unknown) (unknown) (unknown) (no date) (unknown) (unknown) alternatives to surgery were discussed with the patient prior to proceeding. (units unknown) (unknown) (unknown) (no date) (unknown) (unknown) and , as well a s the potential need for eventual revision of the (units unknown) (unknown) (unknown) (no date) (unknown) (unknown) and draped through sterile drapes. (units unknown) (unknown) (unknown) (no date) (unknown) (unknown) appropriate anteversion guides. It was further stabilized with a single screw. (units unknown) (unknown) (unknown) (no date) (unknown) (unknown) awl hole using the t ag sutures. The short external rotators were repaired with a (units unknown) (unknown) (unknown) (no date) (unknown) (unknown) barbed sutures and SteriStrips. An Aquacel Ag dressing was applied and the (units unknown) (unknown) (unknown) (no date) (unknown) (unknown) changes consistent with arthritis. Non-operative management has failed and the (units unknown) (unknown) (unknown) (no date) (unknown) (unknown) chili pepper broach was then used, followed by sequential broaching until there (units unknown) (unknown) (unknown) (no date) (unknown) (unknown) cleared of all material and the hip relocated one final time. (units unknown) (unknown) (unknown) (no date) (unknown) (unknown) cutting osteotome, followed by a T handled reamer and a lateralizing reamer. The (units unknown) (unknown) (unknown) (no date) (unknown) (unknown) degrees flexion, internal rotation to [] was possible before dislocation. This (units unknown) (unknown) (unknown) (no date) (unknown) (unknown) fascia mady was clos ed with Vicryl. The subcutaneous layer was closed with (units unknown) (unknown) (unknown) (no date) (unknown) (unknown) film confirmed the component position and no evidence of fracture. The patient (units unknown) (unknown) (unknown) (no date) (unknown) (unknown) greater trochanter a nd curving gently posteriorly as it went proximally. This (units unknown) (unknown) (unknown) (no date) (unknown) (unknown) impacted into the prepared femoral canal. A brief Betadine soak was performed (units unknown) (unknown) (unknown) (no date) (unknown) (unknown) increments, then 1 m m increments until good bite was obtained with an odd sized (units unknown) (unknown) (unknown) (no date) (unknown) (unknown) left hip as the operative site and this was marked with my initials. The patient (units unknown) (unknown) (unknown) (no date) (unknown) (unknown) length discrepancy, dislocation, stiffness, infection, nerve damage, deep venous (units unknown) (unknown) (unknown) (no date) (unknown) (unknown) neck osteotomy performed approximately 15 mm above the lesser trochanter. (units unknown) (unknown) (unknown) (no date) (unknown) (unknown) nonabsorbable suture . A deep drain was placed and brought out anteriorly. The (units unknown) (unknown) (unknown) (no date) (unknown) (unknown) patient has requeste d total hip replacement. The risks, benefits and (units unknown) (unknown) (unknown) (no date) (unknown) (unknown) patient was taken to recovery having tolerated the procedure well. (units unknown) (unknown) (unknown) (no date) (unknown) (unknown) patient will be discharged home when safe for the home environment. (units unknown) (unknown) (unknown) (no date) (unknown) (unknown) placed on the operative table in the right lateral decubitus position after (units unknown) (unknown) (unknown) (no date) (unknown) (unknown) prepared from the ankle to the iliac crest with ChloroPrep in the usual fashion (units unknown) (unknown) (unknown) (no date) (unknown) (unknown) prosthetic. (units unknown) (unknown) (unknown) (no date) (unknown) (unknown) range of motion with 45 degrees internal rotation without dislocation. At 90 (units unknown) (unknown) (unknown) (no date) (unknown) (unknown) reamer. The cup 1 mm larger than the last reamer was then inserted using the (units unknown) (unknown) (unknown) (no date) (unknown) (unknown) receive Aspirin and sequential compression devices for DVT prophylaxis. The (units unknown) (unknown) (unknown) (no date) (unknown) (unknown) received pre-operati ve antibiotics and was taken to the operating room and (units unknown) (unknown) (unknown) (no date) (unknown) (unknown) saline. Finally the femoral head was impacted onto the stem. The acetabulum was (units unknown) (unknown) (unknown) (no date) (unknown) (unknown) satisfactory anesthesia. A time clock mechanic out was performed. The left leg was (units unknown) (unknown) (unknown) (no date) (unknown) (unknown) self retaining retractor. The trochanteric bursa was excised with care being (units unknown) (unknown) (unknown) (no date) (unknown) (unknown) taken to avoid the sciatic nerve, which was identified and protected throughout (units unknown) (unknown) (unknown) (no date) (unknown) (unknown) the case. The short external rotators were incised and the capsulomuscular flap (units unknown) (unknown) (unknown) (no date) (unknown) (unknown) the hip relocated an d checked for leg length and stability. An intraoperative (units unknown) (unknown) (unknown) (no date) (unknown) (unknown) thrombosis, pulmonar y embolism, stroke, coma, heart attack, permanent paralysis (units unknown) (unknown) (unknown) (no date) (unknown) (unknown) tissues were removed . Reaming was performed initially going up in 2 mm (units unknown) (unknown) (unknown) (no date) (unknown) (unknown) trials were removed. (units unknown) (unknown) (unknown) (no date) (unknown) (unknown) was carried sharply to the fascia mady, which was divided and retracted with a (units unknown) (unknown) (unknown) (no date) (unknown) (unknown) was felt to be satisfactory and the appropriate components were opened, and the (units unknown) (unknown) (unknown) (no date) (unknown) (unknown) was good stability o f the broach in the femur. (units unknown) (unknown) (unknown) (no date) (unknown) (unknown) was raised and tagge d for later repair. The hip was dislocated, and a femoral (units unknown) (unknown) (unknown) (no date) (unknown) (unknown) was stable in the position of sleep, of squatting, and could be put through a (units unknown) (unknown) (unknown) (no date) (unknown) (unknown) weight bearing as tolerated and posterior hip precautions. The patient will (units unknown) (unknown) (unknown) (no date) (unknown) (unknown) while trialing with head options. The hip was meticulously irrigated with normal (units unknown) (unknown) Result panel 1290 (unknown) (no date) (unknown) (unknown) (no value) (units unknown) (unknown) (unknown) (no date) (unknown) (unknown) 09/14/22 (units unknown) (unknown) (unknown) (no date) (unknown) (unknown) [address] [place] [address] (units unknown) (unknown) (unknown) (no date) (unknown) (unknown) [id number] (units unknown) (unknown) (unknown) (no date) (unknown) (unknown) Accession Number: [id number] (units unknown) (unknown) (unknown) (no date) (unknown) (unknown) Age/Sex: 72 / F Date of Service: (units unknown) (unknown) (unknown) (no date) (unknown) (unknown) [place] [address] (units unknown) (unknown) (unknown) (no date) (unknown) (unknown) Approved by: Misty Cabrera M.D. on 09/14/2022 at 20:03 (units unknown) (unknown) (unknown) (no date) (unknown) (unknown) BILATERAL LATERAL HIPS, 05/17/2022, 14:19. (units unknown) (unknown) (unknown) (no date) (unknown) (unknown) Bones: Patient is status post left hip arthroplasty, with intraoperative divide (units unknown) (unknown) (unknown) (no date) (unknown) (unknown) COMPARISON: [facility] [place], [place], XR PELVIS (units unknown) (unknown) (unknown) (no date) (unknown) (unknown) : 1950 Acct:[id number] (units unknown) (unknown) (unknown) (no date) (unknown) (unknown) Dictated by: Misty Cabrera M.D. on 09/14/2022 at 20:02 (units unknown) (unknown) (unknown) (no date) (unknown) (unknown) FINDINGS: (units unknown) (unknown) (unknown) (no date) (unknown) (unknown) IMPRESSION: Left hip arthroplasty. Intraoperative device in expected position. (units unknown) (unknown) (unknown) (no date) (unknown) (unknown) INDICATIONS: INTRA OP (units unknown) (unknown) (unknown) (no date) (unknown) (unknown) [facility] (units unknown) (unknown) (unknown) (no date) (unknown) (unknown) Loc: AC [id number] (units unknown) (unknown) (unknown) (no date) (unknown) (unknown) Ordering Provider: Annika River MD (units unknown) (unknown) (unknown) (no date) (unknown) (unknown) PROCEDURE: XR HIP LT 1V (units unknown) (unknown) (unknown) (no date) (unknown) (unknown) Patient: Barbara Garcia MR#: [id number] (units unknown) (unknown) (unknown) (no date) (unknown) (unknown) Procedure: XR hip LT 1V (units unknown) (unknown) (unknown) (no date) (unknown) (unknown) Signed (units unknown) (unknown) (unknown) (no date) (unknown) (unknown) Soft tissues: Overlying postoperative changes are noted. No suspicious soft (units unknown) (unknown) (unknown) (no date) (unknown) (unknown) TECHNIQUE: 2 view(s) of the hip acquired. (units unknown) (unknown) (unknown) (no date) (unknown) (unknown) WITH (units unknown) (unknown) (unknown) (no date) (unknown) (unknown) XRay Report (units unknown) (unknown) (unknown) (no date) (unknown) (unknown) appear intact. (units unknown) (unknown) (unknown) (no date) (unknown) (unknown) densities. (units unknown) (unknown) (unknown) (no date) (unknown) (unknown) expected positions. The hip joint appears congruent. The visualized bony (units unknown) (unknown) (unknown) (no date) (unknown) (unknown) in (units unknown) (unknown) (unknown) (no date) (unknown) (unknown) structures (units unknown) (unknown) (unknown) (no date) (unknown) (unknown) tissue (units unknown) (unknown) Result panel 1291 (unknown) (no date) (unknown) (unknown) (no value) (units unknown) (unknown) (unknown) (no date) (unknown) (unknown) 09/14/22 2037 (units unknown) (unknown) (unknown) (no date) (unknown) (unknown) 3151 (units unknown) (unknown) (unknown) (no date) (unknown) (unknown) Age/Sex: 72 / F (units unknown) (unknown) (unknown) (no date) (unknown) (unknown) Anesthesia Type: General and Spinal (units unknown) (unknown) (unknown) (no date) (unknown) (unknown) [employer]: Nathalia Leos (units unknown) (unknown) (unknown) (no date) (unknown) (unknown) Blood products transfused: none (units unknown) (unknown) (unknown) (no date) (unknown) (unknown) Closure Type: primary (units unknown) (unknown) (unknown) (no date) (unknown) (unknown) Complications: none (units unknown) (unknown) (unknown) (no date) (unknown) (unknown) Condition: stable (units unknown) (unknown) (unknown) (no date) (unknown) (unknown) : 1950 Acct:[id number] (units unknown) (unknown) (unknown) (no date) (unknown) (unknown) Date of Service: 09/14/22 (units unknown) (unknown) (unknown) (no date) (unknown) (unknown) Date of procedure: 09/14/22 (units unknown) (unknown) (unknown) (no date) (unknown) (unknown) Disposition: Acute Care (units unknown) (unknown) (unknown) (no date) (unknown) (unknown) Estimated Blood Loss (mL): 250 (units unknown) (unknown) (unknown) (no date) (unknown) (unknown) Findings: (units unknown) (unknown) (unknown) (no date) (unknown) (unknown) Indications: (units unknown) (unknown) (unknown) (no date) (unknown) (unknown) [address] [address] (units unknown) (unknown) (unknown) (no date) (unknown) (unknown) Left total hip arthroplasty posterior approach (units unknown) (unknown) (unknown) (no date) (unknown) (unknown) Operative Date/Time/Diagnoses (units unknown) (unknown) (unknown) (no date) (unknown) (unknown) Operative Note (units unknown) (unknown) (unknown) (no date) (unknown) (unknown) Operative Notes (units unknown) (unknown) (unknown) (no date) (unknown) (unknown) Patient: Barbara Garcia MR#: [id number] (units unknown) (unknown) (unknown) (no date) (unknown) (unknown) Plan for aftercare: (units unknown) (unknown) (unknown) (no date) (unknown) (unknown) Post-op diagnosis: same (units unknown) (unknown) (unknown) (no date) (unknown) (unknown) Post-operative (units unknown) (unknown) (unknown) (no date) (unknown) (unknown) Pre-op diagnosis: Le ft hip OA (units unknown) (unknown) (unknown) (no date) (unknown) (unknown) Procedure + Clinicians (units unknown) (unknown) (unknown) (no date) (unknown) (unknown) Procedure in detail: (units unknown) (unknown) (unknown) (no date) (unknown) (unknown) Procedure: (units unknown) (unknown) (unknown) (no date) (unknown) (unknown) Prosthetic devices, grafts, tissues, transplants, or devices: (units unknown) (unknown) (unknown) (no date) (unknown) (unknown) Provider: Willis River MD (units unknown) (unknown) (unknown) (no date) (unknown) (unknown) Retractors were plac ed around the femur. The canal was opened with a box (units unknown) (unknown) (unknown) (no date) (unknown) (unknown) Retractors were plac ed to expose the acetabulum. The labrum and central soft (units unknown) (unknown) (unknown) (no date) (unknown) (unknown) Risks discussed included, but were not limited to, failure to relieve pain, leg (units unknown) (unknown) (unknown) (no date) (unknown) (unknown) Same procedure as scheduled: Yes (units unknown) (unknown) (unknown) (no date) (unknown) (unknown) Severe left hip osteoarthritis, adequate stability (units unknown) (unknown) (unknown) (no date) (unknown) (unknown) Signed By:<Electronically signed by Annika River MD> (units unknown) (unknown) (unknown) (no date) (unknown) (unknown) Mirian mendez size 6 standard offset, neutral poly liner,two 6.5 mm (units unknown) (unknown) (unknown) (no date) (unknown) (unknown) Specimen(s): none sent (units unknown) (unknown) (unknown) (no date) (unknown) (unknown) Surgeon: Annika River (units unknown) (unknown) (unknown) (no date) (unknown) (unknown) The acetabular liner was impacted into position. The final stem was then (units unknown) (unknown) (unknown) (no date) (unknown) (unknown) The broach was place d in the canal. A trial head and neck were then placed and (units unknown) (unknown) (unknown) (no date) (unknown) (unknown) The capsulomuscular flap was then repaired to the greater trochanter though an (units unknown) (unknown) (unknown) (no date) (unknown) (unknown) The hip was approach ed through an approximately 20 cm incision centered over the (units unknown) (unknown) (unknown) (no date) (unknown) (unknown) The patient has had progressively worsening left hip pain with radiographic (units unknown) (unknown) (unknown) (no date) (unknown) (unknown) The patient was seen in the pre-operative area, where the patient identified the (units unknown) (unknown) (unknown) (no date) (unknown) (unknown) The patient will be maintained on a standard total hip replacement protocol with (units unknown) (unknown) (unknown) (no date) (unknown) (unknown) Time of procedure: 16:30 (units unknown) (unknown) (unknown) (no date) (unknown) (unknown) alternatives to surgery were discussed with the patient prior to proceeding. (units unknown) (unknown) (unknown) (no date) (unknown) (unknown) and , as well a s the potential need for eventual revision of the (units unknown) (unknown) (unknown) (no date) (unknown) (unknown) and draped through sterile drapes. (units unknown) (unknown) (unknown) (no date) (unknown) (unknown) appropriate anteversion guides. It was further stabilized with two screws. A (units unknown) (unknown) (unknown) (no date) (unknown) (unknown) awl hole using the t ag sutures. The short external rotators were repaired with a (units unknown) (unknown) (unknown) (no date) (unknown) (unknown) barbed sutures and SteriStrips. An Aquacel Ag dressing was applied and the (units unknown) (unknown) (unknown) (no date) (unknown) (unknown) changes consistent with arthritis. Non-operative management has failed and the (units unknown) (unknown) (unknown) (no date) (unknown) (unknown) chili pepper broach was then used, followed by sequential broaching until there (units unknown) (unknown) (unknown) (no date) (unknown) (unknown) cleared of all material and the hip relocated one final time. (units unknown) (unknown) (unknown) (no date) (unknown) (unknown) cutting osteotome, followed by a T handled reamer and a lateralizing reamer. The (units unknown) (unknown) (unknown) (no date) (unknown) (unknown) degrees flexion, internal rotation to 70? was possible before dislocation. This (units unknown) (unknown) (unknown) (no date) (unknown) (unknown) fascia mady was clos ed with Vicryl. The subcutaneous layer was closed with (units unknown) (unknown) (unknown) (no date) (unknown) (unknown) film confirmed the component position and no evidence of fracture. The patient (units unknown) (unknown) (unknown) (no date) (unknown) (unknown) greater trochanter a nd curving gently posteriorly as it went proximally. This (units unknown) (unknown) (unknown) (no date) (unknown) (unknown) impacted into the prepared femoral canal. A brief Betadine soak was performed (units unknown) (unknown) (unknown) (no date) (unknown) (unknown) increments, then 1 m m increments until good bite was obtained with an odd sized (units unknown) (unknown) (unknown) (no date) (unknown) (unknown) left hip as the operative site and this was marked with my initials. The patient (units unknown) (unknown) (unknown) (no date) (unknown) (unknown) length discrepancy, dislocation, stiffness, infection, nerve damage, deep venous (units unknown) (unknown) (unknown) (no date) (unknown) (unknown) neck osteotomy performed approximately 15 mm above the lesser trochanter. (units unknown) (unknown) (unknown) (no date) (unknown) (unknown) nonabsorbable suture . A deep drain was placed and brought out anteriorly. The (units unknown) (unknown) (unknown) (no date) (unknown) (unknown) patient has requeste d total hip replacement. The risks, benefits and (units unknown) (unknown) (unknown) (no date) (unknown) (unknown) patient was taken to recovery having tolerated the procedure well. (units unknown) (unknown) (unknown) (no date) (unknown) (unknown) patient will be discharged home when safe for the home environment. (units unknown) (unknown) (unknown) (no date) (unknown) (unknown) placed on the operative table in the right lateral decubitus position after (units unknown) (unknown) (unknown) (no date) (unknown) (unknown) prepared from the ankle to the iliac crest with ChloroPrep in the usual fashion (units unknown) (unknown) (unknown) (no date) (unknown) (unknown) prosthetic. (units unknown) (unknown) (unknown) (no date) (unknown) (unknown) range of motion with 45 degrees internal rotation without dislocation. At 90 (units unknown) (unknown) (unknown) (no date) (unknown) (unknown) reamer. The cup 1 mm larger than the last reamer was then inserted using the (units unknown) (unknown) (unknown) (no date) (unknown) (unknown) receive Aspirin and sequential compression devices for DVT prophylaxis. The (units unknown) (unknown) (unknown) (no date) (unknown) (unknown) received pre-operati ve antibiotics and was taken to the operating room and (units unknown) (unknown) (unknown) (no date) (unknown) (unknown) saline. Finally the femoral head was impacted onto the stem. The acetabulum was (units unknown) (unknown) (unknown) (no date) (unknown) (unknown) satisfactory anesthesia. A time clock mechanic out was performed. The left leg was (units unknown) (unknown) (unknown) (no date) (unknown) (unknown) screws, R3 46, size 28 x -3 cobalt chrome head (units unknown) (unknown) (unknown) (no date) (unknown) (unknown) self retaining retractor. The trochanteric bursa was excised with care being (units unknown) (unknown) (unknown) (no date) (unknown) (unknown) taken to avoid the sciatic nerve, which was identified and protected throughout (units unknown) (unknown) (unknown) (no date) (unknown) (unknown) the case. The short external rotators were incised and the capsulomuscular flap (units unknown) (unknown) (unknown) (no date) (unknown) (unknown) the hip relocated an d checked for leg length and stability. An intraoperative (units unknown) (unknown) (unknown) (no date) (unknown) (unknown) thrombosis, pulmonar y embolism, stroke, coma, heart attack, permanent paralysis (units unknown) (unknown) (unknown) (no date) (unknown) (unknown) tissues were removed . Reaming was performed initially going up in 2 mm (units unknown) (unknown) (unknown) (no date) (unknown) (unknown) trial neutral liner was placed. (units unknown) (unknown) (unknown) (no date) (unknown) (unknown) trials were removed. (units unknown) (unknown) (unknown) (no date) (unknown) (unknown) was carried sharply to the fascia mady, which was divided and retracted with a (units unknown) (unknown) (unknown) (no date) (unknown) (unknown) was felt to be satisfactory and the appropriate components were opened, and the (units unknown) (unknown) (unknown) (no date) (unknown) (unknown) was good stability o f the broach in the femur. (units unknown) (unknown) (unknown) (no date) (unknown) (unknown) was raised and tagge d for later repair. The hip was dislocated, and a femoral (units unknown) (unknown) (unknown) (no date) (unknown) (unknown) was stable in the position of sleep, of squatting, and could be put through a (units unknown) (unknown) (unknown) (no date) (unknown) (unknown) weight bearing as tolerated and posterior hip precautions. The patient will (units unknown) (unknown) (unknown) (no date) (unknown) (unknown) while trialing with head options. The hip was meticulously irrigated with normal (units unknown) (unknown) Result panel 1292 (unknown) (no date) (unknown) (unknown) 11.1 g/dl (unknown) (unknown) (no date) (unknown) (unknown) 32.9 % (unknown) Result panel 1293 (unknown) (no date) (unknown) (unknown) (no value) (units unknown) (unknown) (unknown) (no date) (unknown) (unknown) (past 8 hours): (units unknown) (unknown) (unknown) (no date) (unknown) (unknown) Call the office if you have chest pain, shortness of breath, significant (units unknown) (unknown) (unknown) (no date) (unknown) (unknown) -Continue with home exercises as directed by your physical therapist. (units unknown) (unknown) (unknown) (no date) (unknown) (unknown) -DC home today once ambulating well (units unknown) (unknown) (unknown) (no date) (unknown) (unknown) -Elevate ?toes above the nose' if you have significant swelling in your lower (units unknown) (unknown) (unknown) (no date) (unknown) (unknown) -Follow-up with your surgeon 6 weeks postoperatively. (units unknown) (unknown) (unknown) (no date) (unknown) (unknown) -Follow-up with your surgeon or PA in the office in 10-14 days after surgery. (units unknown) (unknown) (unknown) (no date) (unknown) (unknown) -Ice your incision a s needed for pain/inflammation/swel ling. Protect your skin (units unknown) (unknown) (unknown) (no date) (unknown) (unknown) -Keep Elena dressing in place until postoperative follow-up office visit. The (units unknown) (unknown) (unknown) (no date) (unknown) (unknown) -Maintain posterior hip precautions x6 weeks. (units unknown) (unknown) (unknown) (no date) (unknown) (unknown) -No lotions, ointments, or scar creams directly to the incision until the wound (units unknown) (unknown) (unknown) (no date) (unknown) (unknown) -Okay to shower. Shakir p wound out of direct water stream. No soaking or (units unknown) (unknown) (unknown) (no date) (unknown) (unknown) -Elena info: The Elena dressing provides suction known as negative pressure wound (units unknown) (unknown) (unknown) (no date) (unknown) (unknown) -Please call the office if dressing becomes wet, soiled, or saturated. (units unknown) (unknown) (unknown) (no date) (unknown) (unknown) -Walk frequently: approximately 5-10 minutes every hour. (units unknown) (unknown) (unknown) (no date) (unknown) (unknown) -Weight-bearing as tolerated. Use front wheeled walker, and progress to cane (units unknown) (unknown) (unknown) (no date) (unknown) (unknown) -aspirin 81 mg b.i.d . x6 weeks for DVT prophylaxis (units unknown) (unknown) (unknown) (no date) (unknown) (unknown) -continue multimodal pain management. The patient already has prescriptions for (units unknown) (unknown) (unknown) (no date) (unknown) (unknown) -mobilize with PT/nursing staff. Weightbearing as tolerated with front wheel (units unknown) (unknown) (unknown) (no date) (unknown) (unknown) -stable status post left total hip arthroplasty, posterior approach (units unknown) (unknown) (unknown) (no date) (unknown) (unknown) 09/14/22 09/15/22 (units unknown) (unknown) (unknown) (no date) (unknown) (unknown) 09/14/22 06:00 (units unknown) (unknown) (unknown) (no date) (unknown) (unknown) 09/14/22 16:09 (units unknown) (unknown) (unknown) (no date) (unknown) (unknown) 09/14/22 20:33 (units unknown) (unknown) (unknown) (no date) (unknown) (unknown) 09/14/22 21:04 (units unknown) (unknown) (unknown) (no date) (unknown) (unknown) 09/15/22 05:12 (units unknown) (unknown) (unknown) (no date) (unknown) (unknown) 09/15/22 1215 (units unknown) (unknown) (unknown) (no date) (unknown) (unknown) 09/15/22 (units unknown) (unknown) (unknown) (no date) (unknown) (unknown) 08:00 09/15/22 (units unknown) (unknown) (unknown) (no date) (unknown) (unknown) 0RF (units unknown) (unknown) (unknown) (no date) (unknown) (unknown) 1 - 2 tab PO BID (units unknown) (unknown) (unknown) (no date) (unknown) (unknown) 1 cap PO DAILY PRN (Reason: GI Upset) (units unknown) (unknown) (unknown) (no date) (unknown) (unknown) 10 mg PO DAILY PRN (Reason: Seasonal allergies) (units unknown) (unknown) (unknown) (no date) (unknown) (unknown) 10 mg PO DAILY (units unknown) (unknown) (unknown) (no date) (unknown) (unknown) 100 mg PO BID PRN (Reason: constipation) Qty: 30 0RF (units unknown) (unknown) (unknown) (no date) (unknown) (unknown) 11:02 (units unknown) (unknown) (unknown) (no date) (unknown) (unknown) 14:36 05:12 (units unknown) (unknown) (unknown) (no date) (unknown) (unknown) 20 mg PO BEDTIME (units unknown) (unknown) (unknown) (no date) (unknown) (unknown) 20 mg PO DAILY (units unknown) (unknown) (unknown) (no date) (unknown) (unknown) 3151 (units unknown) (unknown) (unknown) (no date) (unknown) (unknown) 400 mg PO Q4H MDD Ma x 2400 mg per day PRN (Reason: Pain/inflammation) Qty: 90 (units unknown) (unknown) (unknown) (no date) (unknown) (unknown) 5 mg PO Q3H PRN (Reason: Pain, Moderate (4-6)) Qty: 42 0RF (units unknown) (unknown) (unknown) (no date) (unknown) (unknown) 650 mg PO Q6H MDD Ma x 3000 mg per day PRN (Reason: fever or pain) Qty: 90 0RF (units unknown) (unknown) (unknown) (no date) (unknown) (unknown) 81 mg PO BID 42 Days Qty: 84 0RF (units unknown) (unknown) (unknown) (no date) (unknown) (unknown) Activities: (units unknown) (unknown) (unknown) (no date) (unknown) (unknown) Age/Sex: 72 / F (units unknown) (unknown) (unknown) (no date) (unknown) (unknown) Anesthesia Type: General and Spinal (units unknown) (unknown) (unknown) (no date) (unknown) (unknown) Assessment and Plan (units unknown) (unknown) (unknown) (no date) (unknown) (unknown) Assessment: (units unknown) (unknown) (unknown) (no date) (unknown) (unknown) [employer]: Nathalia Leos (units unknown) (unknown) (unknown) (no date) (unknown) (unknown) Blood Pressure 119/6 7 120/70 (units unknown) (unknown) (unknown) (no date) (unknown) (unknown) Blood products transfused: none (units unknown) (unknown) (unknown) (no date) (unknown) (unknown) Nathalia Leos PA-C (units unknown) (unknown) (unknown) (no date) (unknown) (unknown) Chief complaint: OPB (units unknown) (unknown) (unknown) (no date) (unknown) (unknown) Closure Type: primary (units unknown) (unknown) (unknown) (no date) (unknown) (unknown) Cognitive/behavioral status at discharge: at baseline, oriented (units unknown) (unknown) (unknown) (no date) (unknown) (unknown) Comment: (units unknown) (unknown) (unknown) (no date) (unknown) (unknown) Consult to Anesthesiology Routine (units unknown) (unknown) (unknown) (no date) (unknown) (unknown) Consult to Discharge Planning Routine (units unknown) (unknown) (unknown) (no date) (unknown) (unknown) Consult to Physical Therapy Evaluate + Treat (units unknown) (unknown) (unknown) (no date) (unknown) (unknown) Consulting Provider: Anesthesiologist (units unknown) (unknown) (unknown) (no date) (unknown) (unknown) Consults: (units unknown) (unknown) (unknown) (no date) (unknown) (unknown) Continued (units unknown) (unknown) (unknown) (no date) (unknown) (unknown) : 1950 Acct:[id number] (units unknown) (unknown) (unknown) (no date) (unknown) (unknown) Date Patient Seen: 09/15/22 (units unknown) (unknown) (unknown) (no date) (unknown) (unknown) Date of Service: 09/14/22 (units unknown) (unknown) (unknown) (no date) (unknown) (unknown) Date of admission: (units unknown) (unknown) (unknown) (no date) (unknown) (unknown) Date of procedure: 09/14/22 (units unknown) (unknown) (unknown) (no date) (unknown) (unknown) Deep Vein Thrombosis/Pulmonary Embolism Present on Admission: No (units unknown) (unknown) (unknown) (no date) (unknown) (unknown) Depression (units unknown) (unknown) (unknown) (no date) (unknown) (unknown) Diet/Activity/Treatm en ts (units unknown) (unknown) (unknown) (no date) (unknown) (unknown) Diet: Diet as Tolerated (units unknown) (unknown) (unknown) (no date) (unknown) (unknown) Discharge Assessment + Plan (units unknown) (unknown) (unknown) (no date) (unknown) (unknown) Discharge Data (units unknown) (unknown) (unknown) (no date) (unknown) (unknown) Discharge Date: 09/15/22 (units unknown) (unknown) (unknown) (no date) (unknown) (unknown) Discharge Diagnosis: (units unknown) (unknown) (unknown) (no date) (unknown) (unknown) Discharge Plan (units unknown) (unknown) (unknown) (no date) (unknown) (unknown) Discharge Providers (units unknown) (unknown) (unknown) (no date) (unknown) (unknown) Discharge Summary (units unknown) (unknown) (unknown) (no date) (unknown) (unknown) Discharge orders + Medications (units unknown) (unknown) (unknown) (no date) (unknown) (unknown) Discharge provider: (units unknown) (unknown) (unknown) (no date) (unknown) (unknown) Discharge (units unknown) (unknown) (unknown) (no date) (unknown) (unknown) Diverticulitis (units unknown) (unknown) (unknown) (no date) (unknown) (unknown) Estimated Blood Loss (mL): 250 (units unknown) (unknown) (unknown) (no date) (unknown) (unknown) Exam Narrative: (units unknown) (unknown) (unknown) (no date) (unknown) (unknown) Exam (units unknown) (unknown) (unknown) (no date) (unknown) (unknown) Excedrin Extra Strength 250-250-65 mg Tablet (units unknown) (unknown) (unknown) (no date) (unknown) (unknown) Findings: (units unknown) (unknown) (unknown) (no date) (unknown) (unknown) Follow up/Referrals: (units unknown) (unknown) (unknown) (no date) (unknown) (unknown) Follow-up: (units unknown) (unknown) (unknown) (no date) (unknown) (unknown) Fraction of Inspired Oxygen 21 (units unknown) (unknown) (unknown) (no date) (unknown) (unknown) Functional status at discharge: uses cane/walker (units unknown) (unknown) (unknown) (no date) (unknown) (unknown) GERD (gastroesophage al reflux disease) (units unknown) (unknown) (unknown) (no date) (unknown) (unknown) HLD (hyperlipidemia) (units unknown) (unknown) (unknown) (no date) (unknown) (unknown) Hct 32.9 L (units unknown) (unknown) (unknown) (no date) (unknown) (unknown) Hearing impaired (units unknown) (unknown) (unknown) (no date) (unknown) (unknown) Hgb 11.1 L (units unknown) (unknown) (unknown) (no date) (unknown) (unknown) History of Present Illness (units unknown) (unknown) (unknown) (no date) (unknown) (unknown) History of bladder surgery (units unknown) (unknown) (unknown) (no date) (unknown) (unknown) History of total lef t knee replacement (units unknown) (unknown) (unknown) (no date) (unknown) (unknown) History of total rig ht knee replacement (units unknown) (unknown) (unknown) (no date) (unknown) (unknown) Hospital Course (units unknown) (unknown) (unknown) (no date) (unknown) (unknown) Hospital Course: (units unknown) (unknown) (unknown) (no date) (unknown) (unknown) Hx of left breast biopsy (units unknown) (unknown) (unknown) (no date) (unknown) (unknown) Hx of right breast biopsy (units unknown) (unknown) (unknown) (no date) (unknown) (unknown) Hx of tonsillectomy (units unknown) (unknown) (unknown) (no date) (unknown) (unknown) Indications: (units unknown) (unknown) (unknown) (no date) (unknown) (unknown) Instructions: DI for Hip Replacement, DI for Prescription Opioid Use (units unknown) (unknown) (unknown) (no date) (unknown) (unknown) [address] [address] (units unknown) (unknown) (unknown) (no date) (unknown) (unknown) It also helps to prevent bacteria from entering the wound or incision. (units unknown) (unknown) (unknown) (no date) (unknown) (unknown) Maria Teresa Larsen PA-C (units unknown) (unknown) (unknown) (no date) (unknown) (unknown) Laboratory Results - last 24 hr (units unknown) (unknown) (unknown) (no date) (unknown) (unknown) Labs (units unknown) (unknown) (unknown) (no date) (unknown) (unknown) Labs: (units unknown) (unknown) (unknown) (no date) (unknown) (unknown) Left hip osteoarthritis (units unknown) (unknown) (unknown) (no date) (unknown) (unknown) Left total hip arthroplasty posterior approach (units unknown) (unknown) (unknown) (no date) (unknown) (unknown) Medical History (units unknown) (unknown) (unknown) (no date) (unknown) (unknown) Narrative (units unknown) (unknown) (unknown) (no date) (unknown) (unknown) Narrative: (units unknown) (unknown) (unknown) (no date) (unknown) (unknown) New (units unknown) (unknown) (unknown) (no date) (unknown) (unknown) No Action (units unknown) (unknown) (unknown) (no date) (unknown) (unknown) Objective (units unknown) (unknown) (unknown) (no date) (unknown) (unknown) Operative Date/Time/Diagnoses (units unknown) (unknown) (unknown) (no date) (unknown) (unknown) Operative Notes (units unknown) (unknown) (unknown) (no date) (unknown) (unknown) Osteoarthritis (units unknown) (unknown) (unknown) (no date) (unknown) (unknown) Other treatments: Dressing/Wound care: (units unknown) (unknown) (unknown) (no date) (unknown) (unknown) Overall status at discharge: patient is progressing back to baseline (units unknown) (unknown) (unknown) (no date) (unknown) (unknown) Oxygen Delivery Meth od Room Air (units unknown) (unknown) (unknown) (no date) (unknown) (unknown) Oxygen Flow Rate 0 0 (units unknown) (unknown) (unknown) (no date) (unknown) (unknown) Oxygen Flow Rate 0 (units unknown) (unknown) (unknown) (no date) (unknown) (unknown) PFSH (units unknown) (unknown) (unknown) (no date) (unknown) (unknown) Patient Disposition: Home (units unknown) (unknown) (unknown) (no date) (unknown) (unknown) Patient is complaini ng of mild left hip pain this morning. Her is at (units unknown) (unknown) (unknown) (no date) (unknown) (unknown) Patient: Barbara Garcia MR#: [id number] (units unknown) (unknown) (unknown) (no date) (unknown) (unknown) Physician Instructions: post op SARA protocol (units unknown) (unknown) (unknown) (no date) (unknown) (unknown) Elena battery/pump should last for 7 days from surgery. Once the pump stops, (units unknown) (unknown) (unknown) (no date) (unknown) (unknown) Plan of Treatment: (units unknown) (unknown) (unknown) (no date) (unknown) (unknown) Pleasant 72-year-old female, resting comfortably in bed, no acute distress. Her (units unknown) (unknown) (unknown) (no date) (unknown) (unknown) Prescriptions: (units unknown) (unknown) (unknown) (no date) (unknown) (unknown) Prevent blood clots (units unknown) (unknown) (unknown) (no date) (unknown) (unknown) Primary Care Provide r: Maria Teresa Larsen (units unknown) (unknown) (unknown) (no date) (unknown) (unknown) Primary care physician: (units unknown) (unknown) (unknown) (no date) (unknown) (unknown) Procedure + Clinicians (units unknown) (unknown) (unknown) (no date) (unknown) (unknown) Procedure: (units unknown) (unknown) (unknown) (no date) (unknown) (unknown) Prosthetic devices, grafts, tissues, transplants, or devices: (units unknown) (unknown) (unknown) (no date) (unknown) (unknown) Provider (units unknown) (unknown) (unknown) (no date) (unknown) (unknown) Provider: Chris Leos P.A-C (units unknown) (unknown) (unknown) (no date) (unknown) (unknown) Pulse Oximetry 96 97 (units unknown) (unknown) (unknown) (no date) (unknown) (unknown) Pulse Rate 102 H 98 H (units unknown) (unknown) (unknown) (no date) (unknown) (unknown) Quality (units unknown) (unknown) (unknown) (no date) (unknown) (unknown) Reason for consultation: Regional block for post operative pain control (units unknown) (unknown) (unknown) (no date) (unknown) (unknown) Report to your healthcare provider any signs of infection, such as:: chills, (units unknown) (unknown) (unknown) (no date) (unknown) (unknown) Respiratory Rate 18 16 (units unknown) (unknown) (unknown) (no date) (unknown) (unknown) Risks discussed included, but were not limited to, failure to relieve pain, leg (units unknown) (unknown) (unknown) (no date) (unknown) (unknown) Rx Instructions: (units unknown) (unknown) (unknown) (no date) (unknown) (unknown) SARS-CoV-2 (PCR) Negative (units unknown) (unknown) (unknown) (no date) (unknown) (unknown) SaO2/FiO2 Ratio 438 (units unknown) (unknown) (unknown) (no date) (unknown) (unknown) Same procedure as scheduled: Yes (units unknown) (unknown) (unknown) (no date) (unknown) (unknown) Seasonal allergies (units unknown) (unknown) (unknown) (no date) (unknown) (unknown) Severe left hip osteoarthritis, adequate stability (units unknown) (unknown) (unknown) (no date) (unknown) (unknown) Signed By: (units unknown) (unknown) (unknown) (no date) (unknown) (unknown) Signed By:<Electronically signed by Nathalia Leos> (units unknown) (unknown) (unknown) (no date) (unknown) (unknown) [facility]: [phone] (units unknown) (unknown) (unknown) (no date) (unknown) (unknown) Skin/Wound/Dressing Care (units unknown) (unknown) (unknown) (no date) (unknown) (unknown) Mirian anthology size 6 standard offset, neutral poly liner,two 6.5 mm (units unknown) (unknown) (unknown) (no date) (unknown) (unknown) Annika River MD [Physician] - As previously scheduled (10-14 days for (units unknown) (unknown) (unknown) (no date) (unknown) (unknown) Smoking Status: Carmencita r smoker (units unknown) (unknown) (unknown) (no date) (unknown) (unknown) Social History (units unknown) (unknown) (unknown) (no date) (unknown) (unknown) Specimen(s): none sent (units unknown) (unknown) (unknown) (no date) (unknown) (unknown) Stand Alone Forms: Patient Portal/API, Stroke Signs + Symptoms (units unknown) (unknown) (unknown) (no date) (unknown) (unknown) Stand Alone Forms: Patient Portal/API, Stroke Signs + Symptoms, Surgery (units unknown) (unknown) (unknown) (no date) (unknown) (unknown) Status at Discharge (units unknown) (unknown) (unknown) (no date) (unknown) (unknown) Summary (units unknown) (unknown) (unknown) (no date) (unknown) (unknown) Surgeon: Annika River (units unknown) (unknown) (unknown) (no date) (unknown) (unknown) Surgical History (units unknown) (unknown) (unknown) (no date) (unknown) (unknown) Temperature 99.1 F 98.2 F (units unknown) (unknown) (unknown) (no date) (unknown) (unknown) The patient has had progressively worsening left hip pain with radiographic (units unknown) (unknown) (unknown) (no date) (unknown) (unknown) Time Patient Seen: 12:10 (units unknown) (unknown) (unknown) (no date) (unknown) (unknown) Time of procedure: 16:30 (units unknown) (unknown) (unknown) (no date) (unknown) (unknown) VTE (units unknown) (unknown) (unknown) (no date) (unknown) (unknown) Visit Report/Dischar ge Packet (units unknown) (unknown) (unknown) (no date) (unknown) (unknown) Vital Signs (units unknown) (unknown) (unknown) (no date) (unknown) (unknown) Maria Teresa Larsen PA-C [Primary Care Provider] (units unknown) (unknown) (unknown) (no date) (unknown) (unknown) [Embedded Image Not Available] (units unknown) (unknown) (unknown) (no date) (unknown) (unknown) acetaminophen 325 mg Tablet (units unknown) (unknown) (unknown) (no date) (unknown) (unknown) alcohol intake: current (units unknown) (unknown) (unknown) (no date) (unknown) (unknown) alternatives to surgery were discussed with the patient prior to proceeding. (units unknown) (unknown) (unknown) (no date) (unknown) (unknown) and , as well a s the potential need for eventual revision of the (units unknown) (unknown) (unknown) (no date) (unknown) (unknown) and would like to be discharged home today. (units unknown) (unknown) (unknown) (no date) (unknown) (unknown) aspirin 81 mg Tablet,Delayed Release (Dr/Ec) (units unknown) (unknown) (unknown) (no date) (unknown) (unknown) atorvastatin 20 mg Tablet (units unknown) (unknown) (unknown) (no date) (unknown) (unknown) batteries. Leave the remaining dressing in place. (units unknown) (unknown) (unknown) (no date) (unknown) (unknown) bedside. She is been up and using the restroom. Overall she is feeling well (units unknown) (unknown) (unknown) (no date) (unknown) (unknown) cetirizine [Zyrtec] 10 mg Tablet (units unknown) (unknown) (unknown) (no date) (unknown) (unknown) changes consistent with arthritis. Non-operative management has failed and the (units unknown) (unknown) (unknown) (no date) (unknown) (unknown) docusate sodium 100 mg Capsule (units unknown) (unknown) (unknown) (no date) (unknown) (unknown) dressing from Elena package. The monitor can be thrown away and recycle the (units unknown) (unknown) (unknown) (no date) (unknown) (unknown) escitalopram oxalate 20 mg Tablet (units unknown) (unknown) (unknown) (no date) (unknown) (unknown) extremity: Motor functions are grossly intact, sensation is grossly intact to (units unknown) (unknown) (unknown) (no date) (unknown) (unknown) fever, night sweats, unusual drainage and unusual redness (units unknown) (unknown) (unknown) (no date) (unknown) (unknown) household members: spouse (units unknown) (unknown) (unknown) (no date) (unknown) (unknown) is at bedsid e. Her left posterior hip elena dressing is clean, dry, (units unknown) (unknown) (unknown) (no date) (unknown) (unknown) ibuprofen 400 mg Tablet (units unknown) (unknown) (unknown) (no date) (unknown) (unknown) intact. No surroundi ng erythema, induration, or desiree pus. Bilateral lower (units unknown) (unknown) (unknown) (no date) (unknown) (unknown) is healed (4-6 weeks), (units unknown) (unknown) (unknown) (no date) (unknown) (unknown) leg. (A wedge pillow is easiest.) (units unknown) (unknown) (unknown) (no date) (unknown) (unknown) length discrepancy, dislocation, stiffness, infection, nerve damage, deep venous (units unknown) (unknown) (unknown) (no date) (unknown) (unknown) light touch, calves are soft and nontender to palpation. (units unknown) (unknown) (unknown) (no date) (unknown) (unknown) omeprazole-sodium bicarbonate [Zegerid] 20-1.1 mg-gram Capsule (units unknown) (unknown) (unknown) (no date) (unknown) (unknown) oxycodone 5 mg Tablet (units unknown) (unknown) (unknown) (no date) (unknown) (unknown) oxycodone, Tylenol, ibuprofen, stool softener, aspirin at home (units unknown) (unknown) (unknown) (no date) (unknown) (unknown) patient has requeste d total hip replacement. The risks, benefits and (units unknown) (unknown) (unknown) (no date) (unknown) (unknown) please cut off hose at base of dressing and cover with a bandaid/part of a (units unknown) (unknown) (unknown) (no date) (unknown) (unknown) postoperative visit) (units unknown) (unknown) (unknown) (no date) (unknown) (unknown) prosthetic. (units unknown) (unknown) (unknown) (no date) (unknown) (unknown) screws, R3 46, size 28 x -3 cobalt chrome head (units unknown) (unknown) (unknown) (no date) (unknown) (unknown) solifenacin [Vesicar e] 10 mg Tablet (units unknown) (unknown) (unknown) (no date) (unknown) (unknown) submerging until all the scabs fall off (approximately 6 weeks). (units unknown) (unknown) (unknown) (no date) (unknown) (unknown) swelling that will n ot resolve with elevating, fever over 101?, significantly (units unknown) (unknown) (unknown) (no date) (unknown) (unknown) therapy, which draws out excess fluid from the wound and protects the incision. (units unknown) (unknown) (unknown) (no date) (unknown) (unknown) thrombosis, pulmonar y embolism, stroke, coma, heart attack, permanent paralysis (units unknown) (unknown) (unknown) (no date) (unknown) (unknown) walker. Maintain posterior hip precautions x6 weeks (units unknown) (unknown) (unknown) (no date) (unknown) (unknown) when safe. (units unknown) (unknown) (unknown) (no date) (unknown) (unknown) with a folded pillowcase. (units unknown) (unknown) (unknown) (no date) (unknown) (unknown) worsening pain, or a re concerned you might need to go to the Emergency Room. (units unknown) (unknown) Result panel [id number] (unknown) (no date) (unknown) (unknown) (no value) (units unknown) (unknown) (unknown) (no date) (unknown) (unknown) 09/27/22 (units unknown) (unknown) (unknown) (no date) (unknown) (unknown) [facility] [address] [place] [address] (units unknown) (unknown) (unknown) (no date) (unknown) (unknown) [id number] (units unknown) (unknown) (unknown) (no date) (unknown) (unknown) Accession Number: [id number] (units unknown) (unknown) (unknown) (no date) (unknown) (unknown) Age/Sex: 72 / F Date of Service: (units unknown) (unknown) (unknown) (no date) (unknown) (unknown) [place] [address] (units unknown) (unknown) (unknown) (no date) (unknown) (unknown) Approved by: Antonio wahl M.D. on 09/27/2022 at 16:17 (units unknown) (unknown) (unknown) (no date) (unknown) (unknown) Bones: Patient is status post left hip arthroplasty . There is superior (units unknown) (unknown) (unknown) (no date) (unknown) (unknown) COMPARISON: [facility], CR, XR HIP W PEL IF DONE LT 2V, 09/14/2022, 20:15. (units unknown) (unknown) (unknown) (no date) (unknown) (unknown) : 1950 Acct:[id number] (units unknown) (unknown) (unknown) (no date) (unknown) (unknown) Dictated by: Antonio wahl M.D. on 09/27/2022 at 16:16 (units unknown) (unknown) (unknown) (no date) (unknown) (unknown) FINDINGS: (units unknown) (unknown) (unknown) (no date) (unknown) (unknown) IMPRESSION: Prior le ft total hip arthroplasty. Superior dislocation of the (units unknown) (unknown) (unknown) (no date) (unknown) (unknown) INDICATIONS: possibl y dislocated hip (units unknown) (unknown) (unknown) (no date) (unknown) (unknown) [facility] (units unknown) (unknown) (unknown) (no date) (unknown) (unknown) Loc: ED (units unknown) (unknown) (unknown) (no date) (unknown) (unknown) Ordering Provider: Galina Thapa D.O. (units unknown) (unknown) (unknown) (no date) (unknown) (unknown) PROCEDURE: XR HIP W PEL IF DONE LT 2V (units unknown) (unknown) (unknown) (no date) (unknown) (unknown) Patient: Barbara Garcia MR#: [id number] (units unknown) (unknown) (unknown) (no date) (unknown) (unknown) Procedure: XR hip w pel if done LT 2V (units unknown) (unknown) (unknown) (no date) (unknown) (unknown) Signed (units unknown) (unknown) (unknown) (no date) (unknown) (unknown) Soft tissues: No suspicious soft tissue densities. (units unknown) (unknown) (unknown) (no date) (unknown) (unknown) TECHNIQUE: AP pelvis and lateral view of the left hip acquired. (units unknown) (unknown) (unknown) (no date) (unknown) (unknown) XRay Report (units unknown) (unknown) (unknown) (no date) (unknown) (unknown) dislocation of (units unknown) (unknown) (unknown) (no date) (unknown) (unknown) left hip prosthesis. No gross acute fracture is seen. (units unknown) (unknown) (unknown) (no date) (unknown) (unknown) left hip (units unknown) (unknown) (unknown) (no date) (unknown) (unknown) prosthesis. No gross acute fracture. (units unknown) (unknown) Result panel [id number] (unknown) (no date) (unknown) (unknown) (no value) (units unknown) (unknown) (unknown) (no date) (unknown) (unknown) #90 tabs (units unknown) (unknown) (unknown) (no date) (unknown) (unknown) (4-6) #42 tabs (units unknown) (unknown) (unknown) (no date) (unknown) (unknown) (Zegerid) (units unknown) (unknown) (unknown) (no date) (unknown) (unknown) 09/27/22 15:04 (units unknown) (unknown) (unknown) (no date) (unknown) (unknown) 09/27/22 15:31 (units unknown) (unknown) (unknown) (no date) (unknown) (unknown) 09/27/22 (units unknown) (unknown) (unknown) (no date) (unknown) (unknown) 0RF (units unknown) (unknown) (unknown) (no date) (unknown) (unknown) 1 - 2 tab PO BID (units unknown) (unknown) (unknown) (no date) (unknown) (unknown) 1 cap PO DAILY PRN (Reason: GI Upset) (units unknown) (unknown) (unknown) (no date) (unknown) (unknown) 10 mg PO DAILY PRN (Reason: Seasonal allergies) (units unknown) (unknown) (unknown) (no date) (unknown) (unknown) 10 mg PO DAILY (units unknown) (unknown) (unknown) (no date) (unknown) (unknown) 100 mg PO BID PRN (Reason: constipation) Qty: 30 0RF (units unknown) (unknown) (unknown) (no date) (unknown) (unknown) 15:00 (units unknown) (unknown) (unknown) (no date) (unknown) (unknown) 20 mg PO BEDTIME (units unknown) (unknown) (unknown) (no date) (unknown) (unknown) 20 mg PO DAILY (units unknown) (unknown) (unknown) (no date) (unknown) (unknown) 3151 (units unknown) (unknown) (unknown) (no date) (unknown) (unknown) 400 mg PO Q4H MDD Ma x 2400 mg per day PRN (Reason: Pain/inflammation) Qty: 90 (units unknown) (unknown) (unknown) (no date) (unknown) (unknown) 5 mg PO Q3H PRN (Reason: Pain, Moderate (4-6)) Qty: 42 0RF (units unknown) (unknown) (unknown) (no date) (unknown) (unknown) 650 mg PO Q6H MDD Ma x 3000 mg per day PRN (Reason: fever or pain) Qty: 90 0RF (units unknown) (unknown) (unknown) (no date) (unknown) (unknown) 81 mg PO BID 42 Days Qty: 84 0RF (units unknown) (unknown) (unknown) (no date) (unknown) (unknown) Age/Sex: 72 / F (units unknown) (unknown) (unknown) (no date) (unknown) (unknown) Allergies (units unknown) (unknown) (unknown) (no date) (unknown) (unknown) Allergy/AdvReac Type Severity Reaction Status Date / Time (units unknown) (unknown) (unknown) (no date) (unknown) (unknown) Blood Pressure 153/7 2 H 09/27/22 15:00 (units unknown) (unknown) (unknown) (no date) (unknown) (unknown) Blood Pressure 153/7 2 H (units unknown) (unknown) (unknown) (no date) (unknown) (unknown) COVID19 -Nasal RAPID Stat (units unknown) (unknown) (unknown) (no date) (unknown) (unknown) Chief complaint: Extremity Problem,Nontraumatic (units unknown) (unknown) (unknown) (no date) (unknown) (unknown) Course (units unknown) (unknown) (unknown) (no date) (unknown) (unknown) : 1950 Acct:[id number] (units unknown) (unknown) (unknown) (no date) (unknown) (unknown) Date of Service: 09/27/22 (units unknown) (unknown) (unknown) (no date) (unknown) (unknown) Departure (units unknown) (unknown) (unknown) (no date) (unknown) (unknown) Depression (units unknown) (unknown) (unknown) (no date) (unknown) (unknown) Discharge Plan (units unknown) (unknown) (unknown) (no date) (unknown) (unknown) Discontinued Medications (units unknown) (unknown) (unknown) (no date) (unknown) (unknown) Diverticulitis (units unknown) (unknown) (unknown) (no date) (unknown) (unknown) ED Orders (units unknown) (unknown) (unknown) (no date) (unknown) (unknown) ER Physician: Galina Thapa D.O. (units unknown) (unknown) (unknown) (no date) (unknown) (unknown) Emergency Report (units unknown) (unknown) (unknown) (no date) (unknown) (unknown) Exam (units unknown) (unknown) (unknown) (no date) (unknown) (unknown) Excedrin Extra Strength 250-250-65 mg Tablet (units unknown) (unknown) (unknown) (no date) (unknown) (unknown) Extra Strength) (units unknown) (unknown) (unknown) (no date) (unknown) (unknown) GERD (gastroesophage al reflux disease) (units unknown) (unknown) (unknown) (no date) (unknown) (unknown) General (units unknown) (unknown) (unknown) (no date) (unknown) (unknown) HLD (hyperlipidemia) (units unknown) (unknown) (unknown) (no date) (unknown) (unknown) HPI - Extremity Problem (units unknown) (unknown) (unknown) (no date) (unknown) (unknown) HPI Narrative: (units unknown) (unknown) (unknown) (no date) (unknown) (unknown) Hearing impaired (units unknown) (unknown) (unknown) (no date) (unknown) (unknown) History of Present Illness (units unknown) (unknown) (unknown) (no date) (unknown) (unknown) History of bladder surgery (units unknown) (unknown) (unknown) (no date) (unknown) (unknown) History of total lef t knee replacement (units unknown) (unknown) (unknown) (no date) (unknown) (unknown) History of total rig ht knee replacement (units unknown) (unknown) (unknown) (no date) (unknown) (unknown) Home Medications (units unknown) (unknown) (unknown) (no date) (unknown) (unknown) Hx of left breast biopsy (units unknown) (unknown) (unknown) (no date) (unknown) (unknown) Hx of right breast biopsy (units unknown) (unknown) (unknown) (no date) (unknown) (unknown) Hx of tonsillectomy (units unknown) (unknown) (unknown) (no date) (unknown) (unknown) Initial Vital Signs (units unknown) (unknown) (unknown) (no date) (unknown) (unknown) Initial Vital Signs: (units unknown) (unknown) (unknown) (no date) (unknown) (unknown) [address] [address] (units unknown) (unknown) (unknown) (no date) (unknown) (unknown) Medical History (units unknown) (unknown) (unknown) (no date) (unknown) (unknown) Medication Instructions Recorded Confirmed (units unknown) (unknown) (unknown) (no date) (unknown) (unknown) Medication Instructions Recorded (units unknown) (unknown) (unknown) (no date) (unknown) (unknown) Mode of arrival: EMS (units unknown) (unknown) (unknown) (no date) (unknown) (unknown) Morphine Sulfate (Morphine 4 Mg/Ml Inj) 4 mg IV NOW ONE (units unknown) (unknown) (unknown) (no date) (unknown) (unknown) No Action (units unknown) (unknown) (unknown) (no date) (unknown) (unknown) No Known Drug Allergies Allergy Verified 08/13/22 11:07 (units unknown) (unknown) (unknown) (no date) (unknown) (unknown) Ordered: (units unknown) (unknown) (unknown) (no date) (unknown) (unknown) Orders (units unknown) (unknown) (unknown) (no date) (unknown) (unknown) Osteoarthritis (units unknown) (unknown) (unknown) (no date) (unknown) (unknown) Oxygen Delivery Meth od Room Air 09/27/22 15:00 (units unknown) (unknown) (unknown) (no date) (unknown) (unknown) Oxygen Delivery Meth od Room Air (units unknown) (unknown) (unknown) (no date) (unknown) (unknown) Pain/inflammation #9 0 tabs (units unknown) (unknown) (unknown) (no date) (unknown) (unknown) Patient History (units unknown) (unknown) (unknown) (no date) (unknown) (unknown) Patient: Barbara Garcia MR#: [id number] (units unknown) (unknown) (unknown) (no date) (unknown) (unknown) Prescriptions: (units unknown) (unknown) (unknown) (no date) (unknown) (unknown) Prevent blood clots (units unknown) (unknown) (unknown) (no date) (unknown) (unknown) Previous Rx's (units unknown) (unknown) (unknown) (no date) (unknown) (unknown) Pulse Oximetry 95 09/27/22 15:00 (units unknown) (unknown) (unknown) (no date) (unknown) (unknown) Pulse Oximetry 95 (units unknown) (unknown) (unknown) (no date) (unknown) (unknown) Pulse Rate 61 15:00 (units unknown) (unknown) (unknown) (no date) (unknown) (unknown) Pulse Rate 61 (units unknown) (unknown) (unknown) (no date) (unknown) (unknown) Referrals: (units unknown) (unknown) (unknown) (no date) (unknown) (unknown) Related Data (units unknown) (unknown) (unknown) (no date) (unknown) (unknown) Respiratory Rate 16 09/27/22 15:00 (units unknown) (unknown) (unknown) (no date) (unknown) (unknown) Respiratory Rate 16 (units unknown) (unknown) (unknown) (no date) (unknown) (unknown) Rx Instructions: (units unknown) (unknown) (unknown) (no date) (unknown) (unknown) Seasonal allergies (units unknown) (unknown) (unknown) (no date) (unknown) (unknown) Signed By: (units unknown) (unknown) (unknown) (no date) (unknown) (unknown) Smoking Status: Carmencita r smoker (units unknown) (unknown) (unknown) (no date) (unknown) (unknown) Social History (units unknown) (unknown) (unknown) (no date) (unknown) (unknown) Source: patient and EMS (units unknown) (unknown) (unknown) (no date) (unknown) (unknown) Stated complaint: Lt Hip Pain (units unknown) (unknown) (unknown) (no date) (unknown) (unknown) Stop: 09/27/22 15:32 (units unknown) (unknown) (unknown) (no date) (unknown) (unknown) Substance Use Type: does not use (units unknown) (unknown) (unknown) (no date) (unknown) (unknown) Surgical History (units unknown) (unknown) (unknown) (no date) (unknown) (unknown) Temperature 97.8 F 09/27/22 15:00 (units unknown) (unknown) (unknown) (no date) (unknown) (unknown) Temperature 97.8 F (units unknown) (unknown) (unknown) (no date) (unknown) (unknown) This is a 72-year-ol d female with history of dyslipidemia, anxiety and left hip (units unknown) (unknown) (unknown) (no date) (unknown) (unknown) Time Seen by Provide r: 09/27/22 15:17 (units unknown) (unknown) (unknown) (no date) (unknown) (unknown) Vital Signs - 8 hr (units unknown) (unknown) (unknown) (no date) (unknown) (unknown) Vital Signs (units unknown) (unknown) (unknown) (no date) (unknown) (unknown) Vital signs: (units unknown) (unknown) (unknown) (no date) (unknown) (unknown) XR hip w pel if done LT 2V Stat (units unknown) (unknown) (unknown) (no date) (unknown) (unknown) Maria Teresa Larsen PA-C [Primary Care Provider] (units unknown) (unknown) (unknown) (no date) (unknown) (unknown) acetaminophen 325 mg Tablet (units unknown) (unknown) (unknown) (no date) (unknown) (unknown) acetaminophen 325 mg tablet 650 mg PO Q6H PRN fever or pain 09/15/22 (units unknown) (unknown) (unknown) (no date) (unknown) (unknown) alcohol intake frequency: holidays/special occasions only (units unknown) (unknown) (unknown) (no date) (unknown) (unknown) alcohol intake: current (units unknown) (unknown) (unknown) (no date) (unknown) (unknown) allergies (units unknown) (unknown) (unknown) (no date) (unknown) (unknown) aspirin 81 mg Tablet,Delayed Release (Dr/Ec) (units unknown) (unknown) (unknown) (no date) (unknown) (unknown) aspirin 81 mg tablet,delayed 81 mg PO BID 6 weeks #84 tabs 09/15/22 (units unknown) (unknown) (unknown) (no date) (unknown) (unknown) aspirin-acetaminophe n- caffeine 250 1 - 2 tab PO BID 08/13/22 09/14/22 (units unknown) (unknown) (unknown) (no date) (unknown) (unknown) atorvastatin 20 mg Tablet (units unknown) (unknown) (unknown) (no date) (unknown) (unknown) atorvastatin 20 mg tablet 20 mg PO BEDTIME 08/13/22 09/14/22 (units unknown) (unknown) (unknown) (no date) (unknown) (unknown) bicarbonate 1.1 gram capsule (units unknown) (unknown) (unknown) (no date) (unknown) (unknown) caps (units unknown) (unknown) (unknown) (no date) (unknown) (unknown) cetirizine 10 mg tablet (Zyrtec) 10 mg PO DAILY PRN Seasonal 08/13/22 09/14/22 (units unknown) (unknown) (unknown) (no date) (unknown) (unknown) cetirizine [Zyrtec] 10 mg Tablet (units unknown) (unknown) (unknown) (no date) (unknown) (unknown) dislocated and went back in last week. She was not seen for this. Patient (units unknown) (unknown) (unknown) (no date) (unknown) (unknown) docusate sodium 100 mg Capsule (units unknown) (unknown) (unknown) (no date) (unknown) (unknown) docusate sodium 100 mg capsule 100 mg PO BID PRN constipation #30 09/15/22 (units unknown) (unknown) (unknown) (no date) (unknown) (unknown) escitalopram oxalate 20 mg Tablet (units unknown) (unknown) (unknown) (no date) (unknown) (unknown) escitalopram oxalate 20 mg tablet 20 mg PO DAILY 08/13/22 09/14/22 (units unknown) (unknown) (unknown) (no date) (unknown) (unknown) has been persistent. She states she had 1 episode where she felt like her hip (units unknown) (unknown) (unknown) (no date) (unknown) (unknown) household members: spouse (units unknown) (unknown) (unknown) (no date) (unknown) (unknown) ibuprofen 400 mg Tablet (units unknown) (unknown) (unknown) (no date) (unknown) (unknown) ibuprofen 400 mg tablet 400 mg PO Q4H PRN 09/15/22 (units unknown) (unknown) (unknown) (no date) (unknown) (unknown) mg-250 mg-65 mg tabl et (Excedrin (units unknown) (unknown) (unknown) (no date) (unknown) (unknown) omeprazole 20 mg-sodium 1 cap PO DAILY PRN GI Upset 08/13/22 09/14/22 (units unknown) (unknown) (unknown) (no date) (unknown) (unknown) omeprazole-sodium bicarbonate [Zegerid] 20-1.1 mg-gram Capsule (units unknown) (unknown) (unknown) (no date) (unknown) (unknown) oxycodone 5 mg Tablet (units unknown) (unknown) (unknown) (no date) (unknown) (unknown) oxycodone 5 mg table t 5 mg PO Q3H PRN Pain, Moderate 09/15/22 (units unknown) (unknown) (unknown) (no date) (unknown) (unknown) release (units unknown) (unknown) (unknown) (no date) (unknown) (unknown) replacement on 09/14/2022. Patient states she was seated using the toilet when (units unknown) (unknown) (unknown) (no date) (unknown) (unknown) she went to stand up and felt a pop in her left hip and had sudden pain which (units unknown) (unknown) (unknown) (no date) (unknown) (unknown) solifenacin 10 mg tablet (Vesicare) 10 mg PO DAILY 08/13/22 09/14/22 (units unknown) (unknown) (unknown) (no date) (unknown) (unknown) solifenacin [Vesicar e] 10 mg Tablet (units unknown) (unknown) (unknown) (no date) (unknown) (unknown) states her only othe r surgeries have been prior hip replacement 2 weeks ago and (units unknown) (unknown) (unknown) (no date) (unknown) (unknown) states no numbness o r tingling or weakness. She has pain down the leg. Patient (units unknown) (unknown) Result panel [id number] (unknown) (no date) (unknown) (unknown) (no value) (units unknown) (unknown) (unknown) (no date) (unknown) (unknown) #90 tabs (units unknown) (unknown) (unknown) (no date) (unknown) (unknown) (4-6) #42 tabs (units unknown) (unknown) (unknown) (no date) (unknown) (unknown) (Zegerid) (units unknown) (unknown) (unknown) (no date) (unknown) (unknown) + for hip dislocation. (units unknown) (unknown) (unknown) (no date) (unknown) (unknown) 09/27/22 15:04 (units unknown) (unknown) (unknown) (no date) (unknown) (unknown) 09/27/22 15:31 (units unknown) (unknown) (unknown) (no date) (unknown) (unknown) 09/27/22 (units unknown) (unknown) (unknown) (no date) (unknown) (unknown) 0RF (units unknown) (unknown) (unknown) (no date) (unknown) (unknown) 1 - 2 tab PO BID (units unknown) (unknown) (unknown) (no date) (unknown) (unknown) 1 cap PO DAILY PRN (Reason: GI Upset) (units unknown) (unknown) (unknown) (no date) (unknown) (unknown) 10 mg PO DAILY PRN (Reason: Seasonal allergies) (units unknown) (unknown) (unknown) (no date) (unknown) (unknown) 10 mg PO DAILY (units unknown) (unknown) (unknown) (no date) (unknown) (unknown) 100 mg PO BID PRN (Reason: constipation) Qty: 30 0RF (units unknown) (unknown) (unknown) (no date) (unknown) (unknown) 15:00 (units unknown) (unknown) (unknown) (no date) (unknown) (unknown) 20 mg PO BEDTIME (units unknown) (unknown) (unknown) (no date) (unknown) (unknown) 20 mg PO DAILY (units unknown) (unknown) (unknown) (no date) (unknown) (unknown) 3151 (units unknown) (unknown) (unknown) (no date) (unknown) (unknown) 400 mg PO Q4H MDD Ma x 2400 mg per day PRN (Reason: Pain/inflammation) Qty: 90 (units unknown) (unknown) (unknown) (no date) (unknown) (unknown) 5 mg PO Q3H PRN (Reason: Pain, Moderate (4-6)) Qty: 42 0RF (units unknown) (unknown) (unknown) (no date) (unknown) (unknown) 650 mg PO Q6H MDD Ma x 3000 mg per day PRN (Reason: fever or pain) Qty: 90 0RF (units unknown) (unknown) (unknown) (no date) (unknown) (unknown) 81 mg PO BID 42 Days Qty: 84 0RF (units unknown) (unknown) (unknown) (no date) (unknown) (unknown) ABDOMEN: Soft, nontender. Normoactive bowel sounds all 4 quadrants. No (units unknown) (unknown) (unknown) (no date) (unknown) (unknown) Age/Sex: 72 / F (units unknown) (unknown) (unknown) (no date) (unknown) (unknown) Allergies (units unknown) (unknown) (unknown) (no date) (unknown) (unknown) Allergy/AdvReac Type Severity Reaction Status Date / Time (units unknown) (unknown) (unknown) (no date) (unknown) (unknown) Blood Pressure 153/7 2 H 09/27/22 15:00 (units unknown) (unknown) (unknown) (no date) (unknown) (unknown) Blood Pressure 153/7 2 H (units unknown) (unknown) (unknown) (no date) (unknown) (unknown) CARDIOVASCULAR: Regular rate and rhythm without murmurs, rubs or gallops. (units unknown) (unknown) (unknown) (no date) (unknown) (unknown) COVID19 -Nasal RAPID Stat (units unknown) (unknown) (unknown) (no date) (unknown) (unknown) Chief complaint: Extremity Problem,Nontraumatic (units unknown) (unknown) (unknown) (no date) (unknown) (unknown) Clinical Impression: (units unknown) (unknown) (unknown) (no date) (unknown) (unknown) Course (units unknown) (unknown) (unknown) (no date) (unknown) (unknown) : 1950 Acct:[id number] (units unknown) (unknown) (unknown) (no date) (unknown) (unknown) Date of Service: 09/27/22 (units unknown) (unknown) (unknown) (no date) (unknown) (unknown) Departure (units unknown) (unknown) (unknown) (no date) (unknown) (unknown) Depression (units unknown) (unknown) (unknown) (no date) (unknown) (unknown) Discharge Plan (units unknown) (unknown) (unknown) (no date) (unknown) (unknown) Discontinued Medications (units unknown) (unknown) (unknown) (no date) (unknown) (unknown) Dislocation, hip closed (units unknown) (unknown) (unknown) (no date) (unknown) (unknown) Diverticulitis (units unknown) (unknown) (unknown) (no date) (unknown) (unknown) ED Orders (units unknown) (unknown) (unknown) (no date) (unknown) (unknown) ER Physician: Galina Thapa D.O. (units unknown) (unknown) (unknown) (no date) (unknown) (unknown) EXTREMITIES: Decreas ed range of motion of the left hip, patient has good (units unknown) (unknown) (unknown) (no date) (unknown) (unknown) Emergency Report (units unknown) (unknown) (unknown) (no date) (unknown) (unknown) Exam Narrative: (units unknown) (unknown) (unknown) (no date) (unknown) (unknown) Exam (units unknown) (unknown) (unknown) (no date) (unknown) (unknown) Excedrin Extra Strength 250-250-65 mg Tablet (units unknown) (unknown) (unknown) (no date) (unknown) (unknown) Extra Strength) (units unknown) (unknown) (unknown) (no date) (unknown) (unknown) Extremity x-ray #1: (units unknown) (unknown) (unknown) (no date) (unknown) (unknown) GENERAL: Alert and oriented x three, elderly female in moderate distress. (units unknown) (unknown) (unknown) (no date) (unknown) (unknown) GERD (gastroesophage al reflux disease) (units unknown) (unknown) (unknown) (no date) (unknown) (unknown) : No CVA tenderness (units unknown) (unknown) (unknown) (no date) (unknown) (unknown) General (units unknown) (unknown) (unknown) (no date) (unknown) (unknown) HEENT: Head normocephalic, atraumatic, EOMI, pupils reactive, face symmetric, (units unknown) (unknown) (unknown) (no date) (unknown) (unknown) HLD (hyperlipidemia) (units unknown) (unknown) (unknown) (no date) (unknown) (unknown) HPI - Extremity Problem (units unknown) (unknown) (unknown) (no date) (unknown) (unknown) HPI Narrative: (units unknown) (unknown) (unknown) (no date) (unknown) (unknown) Hearing impaired (units unknown) (unknown) (unknown) (no date) (unknown) (unknown) History of Present Illness (units unknown) (unknown) (unknown) (no date) (unknown) (unknown) History of bladder surgery (units unknown) (unknown) (unknown) (no date) (unknown) (unknown) History of total lef t knee replacement (units unknown) (unknown) (unknown) (no date) (unknown) (unknown) History of total rig ht knee replacement (units unknown) (unknown) (unknown) (no date) (unknown) (unknown) Home Medications (units unknown) (unknown) (unknown) (no date) (unknown) (unknown) Hx of left breast biopsy (units unknown) (unknown) (unknown) (no date) (unknown) (unknown) Hx of right breast biopsy (units unknown) (unknown) (unknown) (no date) (unknown) (unknown) Hx of tonsillectomy (units unknown) (unknown) (unknown) (no date) (unknown) (unknown) Imaging Data (units unknown) (unknown) (unknown) (no date) (unknown) (unknown) Initial Vital Signs (units unknown) (unknown) (unknown) (no date) (unknown) (unknown) Initial Vital Signs: (units unknown) (unknown) (unknown) (no date) (unknown) (unknown) [address] [place] [address] (units unknown) (unknown) (unknown) (no date) (unknown) (unknown) MDM - Extremity (Nontraumatic) (units unknown) (unknown) (unknown) (no date) (unknown) (unknown) MDM Narrative (units unknown) (unknown) (unknown) (no date) (unknown) (unknown) Medical History (units unknown) (unknown) (unknown) (no date) (unknown) (unknown) Medical decision making narrative: (units unknown) (unknown) (unknown) (no date) (unknown) (unknown) Medication Instructions Recorded Confirmed (units unknown) (unknown) (unknown) (no date) (unknown) (unknown) Medication Instructions Recorded (units unknown) (unknown) (unknown) (no date) (unknown) (unknown) Mode of arrival: EMS (units unknown) (unknown) (unknown) (no date) (unknown) (unknown) Morphine Sulfate (Morphine 4 Mg/Ml Inj) 4 mg IV NOW ONE (units unknown) (unknown) (unknown) (no date) (unknown) (unknown) My Impression: (units unknown) (unknown) (unknown) (no date) (unknown) (unknown) NECK: Supple, full range of motion (units unknown) (unknown) (unknown) (no date) (unknown) (unknown) NEUROLOGICAL: Crania l nerves II through XII grossly intact. Moving all (units unknown) (unknown) (unknown) (no date) (unknown) (unknown) Narrative (units unknown) (unknown) (unknown) (no date) (unknown) (unknown) No Action (units unknown) (unknown) (unknown) (no date) (unknown) (unknown) No Known Drug Allergies Allergy Verified 08/13/22 11:07 (units unknown) (unknown) (unknown) (no date) (unknown) (unknown) Ondansetron HCl (Ondansetron 4 Mg/2 Ml Inj) 4 mg IV Q6HR PRN (units unknown) (unknown) (unknown) (no date) (unknown) (unknown) Ordered: (units unknown) (unknown) (unknown) (no date) (unknown) (unknown) Orders (units unknown) (unknown) (unknown) (no date) (unknown) (unknown) Orthopedic surgery, Dr. Paulino (units unknown) (unknown) (unknown) (no date) (unknown) (unknown) Osteoarthritis (units unknown) (unknown) (unknown) (no date) (unknown) (unknown) Oxygen Delivery Meth od Room Air 09/27/22 15:00 (units unknown) (unknown) (unknown) (no date) (unknown) (unknown) Oxygen Delivery Meth od Room Air (units unknown) (unknown) (unknown) (no date) (unknown) (unknown) PRN Reason: Nausea A nd Vomiting (units unknown) (unknown) (unknown) (no date) (unknown) (unknown) Pain/inflammation #9 0 tabs (units unknown) (unknown) (unknown) (no date) (unknown) (unknown) Patient History (units unknown) (unknown) (unknown) (no date) (unknown) (unknown) Patient: Barbara Garcia MR#: [id number] (units unknown) (unknown) (unknown) (no date) (unknown) (unknown) Prescriptions: (units unknown) (unknown) (unknown) (no date) (unknown) (unknown) Prevent blood clots (units unknown) (unknown) (unknown) (no date) (unknown) (unknown) Previous Rx's (units unknown) (unknown) (unknown) (no date) (unknown) (unknown) Pulse Oximetry 95 09/27/22 15:00 (units unknown) (unknown) (unknown) (no date) (unknown) (unknown) Pulse Oximetry 95 (units unknown) (unknown) (unknown) (no date) (unknown) (unknown) Pulse Rate 61 15:00 (units unknown) (unknown) (unknown) (no date) (unknown) (unknown) Pulse Rate 61 (units unknown) (unknown) (unknown) (no date) (unknown) (unknown) RESPIRATORY: Breath sounds equal bilaterally, no wheezes rales or rhonchi. (units unknown) (unknown) (unknown) (no date) (unknown) (unknown) ROS Unobtainable: Al l systems reviewed + are unremarkable except as noted in HPI (units unknown) (unknown) (unknown) (no date) (unknown) (unknown) Referrals: (units unknown) (unknown) (unknown) (no date) (unknown) (unknown) Related Data (units unknown) (unknown) (unknown) (no date) (unknown) (unknown) Respiratory Rate 16 09/27/22 15:00 (units unknown) (unknown) (unknown) (no date) (unknown) (unknown) Respiratory Rate 16 (units unknown) (unknown) (unknown) (no date) (unknown) (unknown) Review of Systems (units unknown) (unknown) (unknown) (no date) (unknown) (unknown) Rx Instructions: (units unknown) (unknown) (unknown) (no date) (unknown) (unknown) SKIN: Warm, dry, no petechiae, no rashes or lesions. (units unknown) (unknown) (unknown) (no date) (unknown) (unknown) Seasonal allergies (units unknown) (unknown) (unknown) (no date) (unknown) (unknown) Signed By: (units unknown) (unknown) (unknown) (no date) (unknown) (unknown) Smoking Status: Carmencita rubin smoker (units unknown) (unknown) (unknown) (no date) (unknown) (unknown) Social History (units unknown) (unknown) (unknown) (no date) (unknown) (unknown) Source: patient and EMS (units unknown) (unknown) (unknown) (no date) (unknown) (unknown) Stated complaint: Lt Hip Pain (units unknown) (unknown) (unknown) (no date) (unknown) (unknown) Stop: 09/27/22 15:32 (units unknown) (unknown) (unknown) (no date) (unknown) (unknown) Substance Use Type: does not use (units unknown) (unknown) (unknown) (no date) (unknown) (unknown) Surgical History (units unknown) (unknown) (unknown) (no date) (unknown) (unknown) Temperature 97.8 F 09/27/22 15:00 (units unknown) (unknown) (unknown) (no date) (unknown) (unknown) Temperature 97.8 F (units unknown) (unknown) (unknown) (no date) (unknown) (unknown) This is a 72-year-ol d female with complaint of left hip pain and a sensation of (units unknown) (unknown) (unknown) (no date) (unknown) (unknown) This is a 72-year-ol d female with history of dyslipidemia, anxiety and left hip (units unknown) (unknown) (unknown) (no date) (unknown) (unknown) Time Seen by Provide r: 09/27/22 15:17 (units unknown) (unknown) (unknown) (no date) (unknown) (unknown) Vital Signs - 8 hr (units unknown) (unknown) (unknown) (no date) (unknown) (unknown) Vital Signs (units unknown) (unknown) (unknown) (no date) (unknown) (unknown) Vital signs: (units unknown) (unknown) (unknown) (no date) (unknown) (unknown) XR hip w pel if done LT 2V Stat (units unknown) (unknown) (unknown) (no date) (unknown) (unknown) Maria Teresa Larsen PA-C [Primary Care Provider] (units unknown) (unknown) (unknown) (no date) (unknown) (unknown) acetaminophen 325 mg Tablet (units unknown) (unknown) (unknown) (no date) (unknown) (unknown) acetaminophen 325 mg tablet 650 mg PO Q6H PRN fever or pain 09/15/22 (units unknown) (unknown) (unknown) (no date) (unknown) (unknown) alcohol intake frequency: holidays/special occasions only (units unknown) (unknown) (unknown) (no date) (unknown) (unknown) alcohol intake: current (units unknown) (unknown) (unknown) (no date) (unknown) (unknown) allergies (units unknown) (unknown) (unknown) (no date) (unknown) (unknown) and below (units unknown) (unknown) (unknown) (no date) (unknown) (unknown) aspirin 81 mg Tablet,Delayed Release (Dr/Ec) (units unknown) (unknown) (unknown) (no date) (unknown) (unknown) aspirin 81 mg tablet,delayed 81 mg PO BID 6 weeks #84 tabs 09/15/22 (units unknown) (unknown) (unknown) (no date) (unknown) (unknown) aspirin-acetaminophe n- caffeine 250 1 - 2 tab PO BID 08/13/22 09/14/22 (units unknown) (unknown) (unknown) (no date) (unknown) (unknown) atorvastatin 20 mg Tablet (units unknown) (unknown) (unknown) (no date) (unknown) (unknown) atorvastatin 20 mg tablet 20 mg PO BEDTIME 08/13/22 09/14/22 (units unknown) (unknown) (unknown) (no date) (unknown) (unknown) bicarbonate 1.1 gram capsule (units unknown) (unknown) (unknown) (no date) (unknown) (unknown) bilaterally with normal sensation throughout the leg. Cap refill less than 2 (units unknown) (unknown) (unknown) (no date) (unknown) (unknown) caps (units unknown) (unknown) (unknown) (no date) (unknown) (unknown) cetirizine 10 mg tablet (Zyrtec) 10 mg PO DAILY PRN Seasonal 08/13/22 09/14/22 (units unknown) (unknown) (unknown) (no date) (unknown) (unknown) cetirizine [Zyrtec] 10 mg Tablet (units unknown) (unknown) (unknown) (no date) (unknown) (unknown) clubbing or edema. Neurovascularly intact (units unknown) (unknown) (unknown) (no date) (unknown) (unknown) dislocated and went back in last week. She was not seen for this. Patient (units unknown) (unknown) (unknown) (no date) (unknown) (unknown) docusate sodium 100 mg Capsule (units unknown) (unknown) (unknown) (no date) (unknown) (unknown) docusate sodium 100 mg capsule 100 mg PO BID PRN constipation #30 09/15/22 (units unknown) (unknown) (unknown) (no date) (unknown) (unknown) escitalopram oxalate 20 mg Tablet (units unknown) (unknown) (unknown) (no date) (unknown) (unknown) escitalopram oxalate 20 mg tablet 20 mg PO DAILY 08/13/22 09/14/22 (units unknown) (unknown) (unknown) (no date) (unknown) (unknown) extremities (units unknown) (unknown) (unknown) (no date) (unknown) (unknown) fentanyl in route which was helpful but has since worn off and she is become (units unknown) (unknown) (unknown) (no date) (unknown) (unknown) from hip replacement . Patient is neurovascularly intact. Consultation with (units unknown) (unknown) (unknown) (no date) (unknown) (unknown) guarding or rebound, rigidity, no mass (units unknown) (unknown) (unknown) (no date) (unknown) (unknown) has been persistent. She states she had 1 episode where she felt like her hip (units unknown) (unknown) (unknown) (no date) (unknown) (unknown) household members: spouse (units unknown) (unknown) (unknown) (no date) (unknown) (unknown) ibuprofen 400 mg Tablet (units unknown) (unknown) (unknown) (no date) (unknown) (unknown) ibuprofen 400 mg tablet 400 mg PO Q4H PRN 09/15/22 (units unknown) (unknown) (unknown) (no date) (unknown) (unknown) increasingly painful. (units unknown) (unknown) (unknown) (no date) (unknown) (unknown) last meal was at noo n she had water approximately the same time. Patient had (units unknown) (unknown) (unknown) (no date) (unknown) (unknown) mg-250 mg-65 mg tabl et (Excedrin (units unknown) (unknown) (unknown) (no date) (unknown) (unknown) moist mucous membranes (units unknown) (unknown) (unknown) (no date) (unknown) (unknown) omeprazole 20 mg-sodium 1 cap PO DAILY PRN GI Upset 08/13/22 09/14/22 (units unknown) (unknown) (unknown) (no date) (unknown) (unknown) omeprazole-sodium bicarbonate [Zegerid] 20-1.1 mg-gram Capsule (units unknown) (unknown) (unknown) (no date) (unknown) (unknown) or illicit. Dr. Willis River is her orthopedic surgeon. Patient states her (units unknown) (unknown) (unknown) (no date) (unknown) (unknown) oxycodone 5 mg Tablet (units unknown) (unknown) (unknown) (no date) (unknown) (unknown) oxycodone 5 mg table t 5 mg PO Q3H PRN Pain, Moderate 09/15/22 (units unknown) (unknown) (unknown) (no date) (unknown) (unknown) plantar and dorsiflexion of the foot on the left, she has 2+ dorsalis pedis (units unknown) (unknown) (unknown) (no date) (unknown) (unknown) pop. X-ray shows wha t appears to be dislocation. Patient is 2 weeks postop (units unknown) (unknown) (unknown) (no date) (unknown) (unknown) prior knee replacement. Patient states no cardiac history. No tobacco, alcohol (units unknown) (unknown) (unknown) (no date) (unknown) (unknown) release (units unknown) (unknown) (unknown) (no date) (unknown) (unknown) replacement on 09/14/2022. Patient states she was seated using the toilet when (units unknown) (unknown) (unknown) (no date) (unknown) (unknown) seconds bilaterally. Patient is shortened and slightly rotated on exam, no (units unknown) (unknown) (unknown) (no date) (unknown) (unknown) she went to stand up and felt a pop in her left hip and had sudden pain which (units unknown) (unknown) (unknown) (no date) (unknown) (unknown) solifenacin 10 mg tablet (Vesicare) 10 mg PO DAILY 08/13/22 09/14/22 (units unknown) (unknown) (unknown) (no date) (unknown) (unknown) solifenacin [Vesicar e] 10 mg Tablet (units unknown) (unknown) (unknown) (no date) (unknown) (unknown) states her only othe r surgeries have been prior hip replacement 2 weeks ago and (units unknown) (unknown) (unknown) (no date) (unknown) (unknown) states no numbness o r tingling or weakness. She has pain down the leg. Patient (units unknown) (unknown) Result panel 1297 (unknown) (no date) (unknown) (unknown) Negative (units unknown) (unknown) (unknown) (no date) (unknown) (unknown) Negative (units unknown) (unknown) Result panel 1298 (unknown) (no date) (unknown) (unknown) (no value) (units unknown) (unknown) (unknown) (no date) (unknown) (unknown) #90 tabs (units unknown) (unknown) (unknown) (no date) (unknown) (unknown) (4-6) #42 tabs (units unknown) (unknown) (unknown) (no date) (unknown) (unknown) (Zegerid) (units unknown) (unknown) (unknown) (no date) (unknown) (unknown) + for hip dislocation. (units unknown) (unknown) (unknown) (no date) (unknown) (unknown) - Unspecified dislocation of left hip, initial encounter (units unknown) (unknown) (unknown) (no date) (unknown) (unknown) 09/27/22 15:04 (units unknown) (unknown) (unknown) (no date) (unknown) (unknown) 09/27/22 15:31 (units unknown) (unknown) (unknown) (no date) (unknown) (unknown) 09/27/22 (units unknown) (unknown) (unknown) (no date) (unknown) (unknown) 0RF (units unknown) (unknown) (unknown) (no date) (unknown) (unknown) 1 - 2 tab PO BID (units unknown) (unknown) (unknown) (no date) (unknown) (unknown) 1 cap PO DAILY PRN (Reason: GI Upset) (units unknown) (unknown) (unknown) (no date) (unknown) (unknown) 10 mg PO DAILY PRN (Reason: Seasonal allergies) (units unknown) (unknown) (unknown) (no date) (unknown) (unknown) 10 mg PO DAILY (units unknown) (unknown) (unknown) (no date) (unknown) (unknown) 100 mg PO BID PRN (Reason: constipation) Qty: 30 0RF (units unknown) (unknown) (unknown) (no date) (unknown) (unknown) 15:00 (units unknown) (unknown) (unknown) (no date) (unknown) (unknown) 20 mg PO BEDTIME (units unknown) (unknown) (unknown) (no date) (unknown) (unknown) 20 mg PO DAILY (units unknown) (unknown) (unknown) (no date) (unknown) (unknown) 3151 (units unknown) (unknown) (unknown) (no date) (unknown) (unknown) 400 mg PO Q4H MDD Ma x 2400 mg per day PRN (Reason: Pain/inflammation) Qty: 90 (units unknown) (unknown) (unknown) (no date) (unknown) (unknown) 5 mg PO Q3H PRN (Reason: Pain, Moderate (4-6)) Qty: 42 0RF (units unknown) (unknown) (unknown) (no date) (unknown) (unknown) 650 mg PO Q6H MDD Ma x 3000 mg per day PRN (Reason: fever or pain) Qty: 90 0RF (units unknown) (unknown) (unknown) (no date) (unknown) (unknown) 81 mg PO BID 42 Days Qty: 84 0RF (units unknown) (unknown) (unknown) (no date) (unknown) (unknown) ABDOMEN: Soft, nontender. Normoactive bowel sounds all 4 quadrants. No (units unknown) (unknown) (unknown) (no date) (unknown) (unknown) Age/Sex: 72 / F (units unknown) (unknown) (unknown) (no date) (unknown) (unknown) Allergies (units unknown) (unknown) (unknown) (no date) (unknown) (unknown) Allergy/AdvReac Type Severity Reaction Status Date / Time (units unknown) (unknown) (unknown) (no date) (unknown) (unknown) Blood Pressure 153/7 2 H 09/27/22 15:00 (units unknown) (unknown) (unknown) (no date) (unknown) (unknown) Blood Pressure 153/7 2 H (units unknown) (unknown) (unknown) (no date) (unknown) (unknown) CARDIOVASCULAR: Regular rate and rhythm without murmurs, rubs or gallops. (units unknown) (unknown) (unknown) (no date) (unknown) (unknown) COVID19 -Nasal RAPID Stat (units unknown) (unknown) (unknown) (no date) (unknown) (unknown) Chief complaint: Extremity Problem,Nontraumatic (units unknown) (unknown) (unknown) (no date) (unknown) (unknown) Clinical Impression: (units unknown) (unknown) (unknown) (no date) (unknown) (unknown) Course (units unknown) (unknown) (unknown) (no date) (unknown) (unknown) : 1950 Acct:[id number] (units unknown) (unknown) (unknown) (no date) (unknown) (unknown) Date of Service: 09/27/22 (units unknown) (unknown) (unknown) (no date) (unknown) (unknown) Departure (units unknown) (unknown) (unknown) (no date) (unknown) (unknown) Depression (units unknown) (unknown) (unknown) (no date) (unknown) (unknown) Discharge Plan (units unknown) (unknown) (unknown) (no date) (unknown) (unknown) Discontinued Medications (units unknown) (unknown) (unknown) (no date) (unknown) (unknown) Dislocation, hip closed (units unknown) (unknown) (unknown) (no date) (unknown) (unknown) Diverticulitis (units unknown) (unknown) (unknown) (no date) (unknown) (unknown) ED Orders (units unknown) (unknown) (unknown) (no date) (unknown) (unknown) ER Physician: Galina Thapa D.O. (units unknown) (unknown) (unknown) (no date) (unknown) (unknown) EXTREMITIES: Decreas ed range of motion of the left hip, patient has good (units unknown) (unknown) (unknown) (no date) (unknown) (unknown) Emergency Report (units unknown) (unknown) (unknown) (no date) (unknown) (unknown) Encounter type: initial encounter Laterality: left Qualified Code(s): S73.005A (units unknown) (unknown) (unknown) (no date) (unknown) (unknown) Exam Narrative: (units unknown) (unknown) (unknown) (no date) (unknown) (unknown) Exam (units unknown) (unknown) (unknown) (no date) (unknown) (unknown) Excedrin Extra Strength 250-250-65 mg Tablet (units unknown) (unknown) (unknown) (no date) (unknown) (unknown) Extra Strength) (units unknown) (unknown) (unknown) (no date) (unknown) (unknown) Extremity x-ray #1: (units unknown) (unknown) (unknown) (no date) (unknown) (unknown) GENERAL: Alert and oriented x three, elderly female in moderate distress. (units unknown) (unknown) (unknown) (no date) (unknown) (unknown) GERD (gastroesophage al reflux disease) (units unknown) (unknown) (unknown) (no date) (unknown) (unknown) : No CVA tenderness (units unknown) (unknown) (unknown) (no date) (unknown) (unknown) General (units unknown) (unknown) (unknown) (no date) (unknown) (unknown) HEENT: Head normocephalic, atraumatic, EOMI, pupils reactive, face symmetric, (units unknown) (unknown) (unknown) (no date) (unknown) (unknown) HLD (hyperlipidemia) (units unknown) (unknown) (unknown) (no date) (unknown) (unknown) HPI - Extremity Problem (units unknown) (unknown) (unknown) (no date) (unknown) (unknown) HPI Narrative: (units unknown) (unknown) (unknown) (no date) (unknown) (unknown) Hearing impaired (units unknown) (unknown) (unknown) (no date) (unknown) (unknown) History of Present Illness (units unknown) (unknown) (unknown) (no date) (unknown) (unknown) History of bladder surgery (units unknown) (unknown) (unknown) (no date) (unknown) (unknown) History of total lef t knee replacement (units unknown) (unknown) (unknown) (no date) (unknown) (unknown) History of total rig ht knee replacement (units unknown) (unknown) (unknown) (no date) (unknown) (unknown) Home Medications (units unknown) (unknown) (unknown) (no date) (unknown) (unknown) Hx of left breast biopsy (units unknown) (unknown) (unknown) (no date) (unknown) (unknown) Hx of right breast biopsy (units unknown) (unknown) (unknown) (no date) (unknown) (unknown) Hx of tonsillectomy (units unknown) (unknown) (unknown) (no date) (unknown) (unknown) If unsuccessful to call back if successful knee immobilizer ambulation trial and (units unknown) (unknown) (unknown) (no date) (unknown) (unknown) Imaging Data (units unknown) (unknown) (unknown) (no date) (unknown) (unknown) Initial Vital Signs (units unknown) (unknown) (unknown) (no date) (unknown) (unknown) Initial Vital Signs: (units unknown) (unknown) (unknown) (no date) (unknown) (unknown) [address] [address] (units unknown) (unknown) (unknown) (no date) (unknown) (unknown) Last Admin: 09/27/22 15:41 Dose: 4 mg (units unknown) (unknown) (unknown) (no date) (unknown) (unknown) MDM - Extremity (Nontraumatic) (units unknown) (unknown) (unknown) (no date) (unknown) (unknown) MDM Narrative (units unknown) (unknown) (unknown) (no date) (unknown) (unknown) Medical History (units unknown) (unknown) (unknown) (no date) (unknown) (unknown) Medical decision making narrative: (units unknown) (unknown) (unknown) (no date) (unknown) (unknown) Medication Instructions Recorded Confirmed (units unknown) (unknown) (unknown) (no date) (unknown) (unknown) Medication Instructions Recorded (units unknown) (unknown) (unknown) (no date) (unknown) (unknown) Mode of arrival: EMS (units unknown) (unknown) (unknown) (no date) (unknown) (unknown) Morphine Sulfate (Morphine 4 Mg/Ml Inj) 4 mg IV NOW ONE (units unknown) (unknown) (unknown) (no date) (unknown) (unknown) My Impression: (units unknown) (unknown) (unknown) (no date) (unknown) (unknown) NECK: Supple, full range of motion (units unknown) (unknown) (unknown) (no date) (unknown) (unknown) NEUROLOGICAL: Crania l nerves II through XII grossly intact. Moving all (units unknown) (unknown) (unknown) (no date) (unknown) (unknown) Narrative (units unknown) (unknown) (unknown) (no date) (unknown) (unknown) No Action (units unknown) (unknown) (unknown) (no date) (unknown) (unknown) No Known Drug Allergies Allergy Verified 08/13/22 11:07 (units unknown) (unknown) (unknown) (no date) (unknown) (unknown) Ondansetron HCl (Ondansetron 4 Mg/2 Ml Inj) 4 mg IV Q6HR PRN (units unknown) (unknown) (unknown) (no date) (unknown) (unknown) Ordered: (units unknown) (unknown) (unknown) (no date) (unknown) (unknown) Orders (units unknown) (unknown) (unknown) (no date) (unknown) (unknown) Orthopedic surgery, Dr. Paulino. Discussed patient is just under 2 weeks out (units unknown) (unknown) (unknown) (no date) (unknown) (unknown) Osteoarthritis (units unknown) (unknown) (unknown) (no date) (unknown) (unknown) Oxygen Delivery Meth od Room Air 09/27/22 15:00 (units unknown) (unknown) (unknown) (no date) (unknown) (unknown) Oxygen Delivery Meth od Room Air (units unknown) (unknown) (unknown) (no date) (unknown) (unknown) PRN Reason: Nausea A nd Vomiting (units unknown) (unknown) (unknown) (no date) (unknown) (unknown) Pain/inflammation #9 0 tabs (units unknown) (unknown) (unknown) (no date) (unknown) (unknown) Patient History (units unknown) (unknown) (unknown) (no date) (unknown) (unknown) Patient: Barbara Garcia MR#: [id number] (units unknown) (unknown) (unknown) (no date) (unknown) (unknown) Prescriptions: (units unknown) (unknown) (unknown) (no date) (unknown) (unknown) Prevent blood clots (units unknown) (unknown) (unknown) (no date) (unknown) (unknown) Previous Rx's (units unknown) (unknown) (unknown) (no date) (unknown) (unknown) Pulse Oximetry 95 09/27/22 15:00 (units unknown) (unknown) (unknown) (no date) (unknown) (unknown) Pulse Oximetry 95 (units unknown) (unknown) (unknown) (no date) (unknown) (unknown) Pulse Rate 61 15:00 (units unknown) (unknown) (unknown) (no date) (unknown) (unknown) Pulse Rate 61 (units unknown) (unknown) (unknown) (no date) (unknown) (unknown) Qualifiers: (units unknown) (unknown) (unknown) (no date) (unknown) (unknown) RESPIRATORY: Breath sounds equal bilaterally, no wheezes rales or rhonchi. (units unknown) (unknown) (unknown) (no date) (unknown) (unknown) ROS Unobtainable: Al l systems reviewed + are unremarkable except as noted in HPI (units unknown) (unknown) (unknown) (no date) (unknown) (unknown) Referrals: (units unknown) (unknown) (unknown) (no date) (unknown) (unknown) Related Data (units unknown) (unknown) (unknown) (no date) (unknown) (unknown) Respiratory Rate 16 09/27/22 15:00 (units unknown) (unknown) (unknown) (no date) (unknown) (unknown) Respiratory Rate 16 (units unknown) (unknown) (unknown) (no date) (unknown) (unknown) Review of Systems (units unknown) (unknown) (unknown) (no date) (unknown) (unknown) Rx Instructions: (units unknown) (unknown) (unknown) (no date) (unknown) (unknown) SKIN: Warm, dry, no petechiae, no rashes or lesions. (units unknown) (unknown) (unknown) (no date) (unknown) (unknown) Seasonal allergies (units unknown) (unknown) (unknown) (no date) (unknown) (unknown) She recommends longitudinal traction with little bit anterior, extended knee. (units unknown) (unknown) (unknown) (no date) (unknown) (unknown) Signed By: (units unknown) (unknown) (unknown) (no date) (unknown) (unknown) Smoking Status: Carmencita r smoker (units unknown) (unknown) (unknown) (no date) (unknown) (unknown) Social History (units unknown) (unknown) (unknown) (no date) (unknown) (unknown) Source: patient and EMS (units unknown) (unknown) (unknown) (no date) (unknown) (unknown) Stated complaint: Lt Hip Pain (units unknown) (unknown) (unknown) (no date) (unknown) (unknown) Stop: 09/27/22 15:32 (units unknown) (unknown) (unknown) (no date) (unknown) (unknown) Substance Use Type: does not use (units unknown) (unknown) (unknown) (no date) (unknown) (unknown) Surgical History (units unknown) (unknown) (unknown) (no date) (unknown) (unknown) Temperature 97.8 F 09/27/22 15:00 (units unknown) (unknown) (unknown) (no date) (unknown) (unknown) Temperature 97.8 F (units unknown) (unknown) (unknown) (no date) (unknown) (unknown) This is a 72-year-ol d female with complaint of left hip pain and a sensation of (units unknown) (unknown) (unknown) (no date) (unknown) (unknown) This is a 72-year-ol d female with history of dyslipidemia, anxiety and left hip (units unknown) (unknown) (unknown) (no date) (unknown) (unknown) Time Seen by Provide r: 09/27/22 15:17 (units unknown) (unknown) (unknown) (no date) (unknown) (unknown) Vital Signs - 8 hr (units unknown) (unknown) (unknown) (no date) (unknown) (unknown) Vital Signs (units unknown) (unknown) (unknown) (no date) (unknown) (unknown) Vital signs: (units unknown) (unknown) (unknown) (no date) (unknown) (unknown) XR hip w pel if done LT 2V Stat (units unknown) (unknown) (unknown) (no date) (unknown) (unknown) Maria Teresa Larsen PA-C [Primary Care Provider] (units unknown) (unknown) (unknown) (no date) (unknown) (unknown) acetaminophen 325 mg Tablet (units unknown) (unknown) (unknown) (no date) (unknown) (unknown) acetaminophen 325 mg tablet 650 mg PO Q6H PRN fever or pain 09/15/22 (units unknown) (unknown) (unknown) (no date) (unknown) (unknown) alcohol intake frequency: holidays/special occasions only (units unknown) (unknown) (unknown) (no date) (unknown) (unknown) alcohol intake: current (units unknown) (unknown) (unknown) (no date) (unknown) (unknown) allergies (units unknown) (unknown) (unknown) (no date) (unknown) (unknown) and below (units unknown) (unknown) (unknown) (no date) (unknown) (unknown) aspirin 81 mg Tablet,Delayed Release (Dr/Ec) (units unknown) (unknown) (unknown) (no date) (unknown) (unknown) aspirin 81 mg tablet,delayed 81 mg PO BID 6 weeks #84 tabs 09/15/22 (units unknown) (unknown) (unknown) (no date) (unknown) (unknown) aspirin-acetaminophe n- caffeine 250 1 - 2 tab PO BID 08/13/22 09/14/22 (units unknown) (unknown) (unknown) (no date) (unknown) (unknown) atorvastatin 20 mg Tablet (units unknown) (unknown) (unknown) (no date) (unknown) (unknown) atorvastatin 20 mg tablet 20 mg PO BEDTIME 08/13/22 09/14/22 (units unknown) (unknown) (unknown) (no date) (unknown) (unknown) bicarbonate 1.1 gram capsule (units unknown) (unknown) (unknown) (no date) (unknown) (unknown) bilaterally with normal sensation throughout the leg. Cap refill less than 2 (units unknown) (unknown) (unknown) (no date) (unknown) (unknown) caps (units unknown) (unknown) (unknown) (no date) (unknown) (unknown) cetirizine 10 mg tablet (Zyrtec) 10 mg PO DAILY PRN Seasonal 08/13/22 09/14/22 (units unknown) (unknown) (unknown) (no date) (unknown) (unknown) cetirizine [Zyrtec] 10 mg Tablet (units unknown) (unknown) (unknown) (no date) (unknown) (unknown) clubbing or edema. Neurovascularly intact (units unknown) (unknown) (unknown) (no date) (unknown) (unknown) dislocated and went back in last week. She was not seen for this. Patient (units unknown) (unknown) (unknown) (no date) (unknown) (unknown) docusate sodium 100 mg Capsule (units unknown) (unknown) (unknown) (no date) (unknown) (unknown) docusate sodium 100 mg capsule 100 mg PO BID PRN constipation #30 09/15/22 (units unknown) (unknown) (unknown) (no date) (unknown) (unknown) escitalopram oxalate 20 mg Tablet (units unknown) (unknown) (unknown) (no date) (unknown) (unknown) escitalopram oxalate 20 mg tablet 20 mg PO DAILY 08/13/22 09/14/22 (units unknown) (unknown) (unknown) (no date) (unknown) (unknown) extremities (units unknown) (unknown) (unknown) (no date) (unknown) (unknown) fentanyl in route which was helpful but has since worn off and she is become (units unknown) (unknown) (unknown) (no date) (unknown) (unknown) follow-up. (units unknown) (unknown) (unknown) (no date) (unknown) (unknown) from hip replacement . Patient is neurovascularly intact. Consultation with (units unknown) (unknown) (unknown) (no date) (unknown) (unknown) from prior surgery films. She feels comfortable with his emptying at this time (units unknown) (unknown) (unknown) (no date) (unknown) (unknown) guarding or rebound, rigidity, no mass (units unknown) (unknown) (unknown) (no date) (unknown) (unknown) has been persistent. She states she had 1 episode where she felt like her hip (units unknown) (unknown) (unknown) (no date) (unknown) (unknown) household members: spouse (units unknown) (unknown) (unknown) (no date) (unknown) (unknown) ibuprofen 400 mg Tablet (units unknown) (unknown) (unknown) (no date) (unknown) (unknown) ibuprofen 400 mg tablet 400 mg PO Q4H PRN 09/15/22 (units unknown) (unknown) (unknown) (no date) (unknown) (unknown) increasingly painful. (units unknown) (unknown) (unknown) (no date) (unknown) (unknown) last meal was at noo n she had water approximately the same time. Patient had (units unknown) (unknown) (unknown) (no date) (unknown) (unknown) mg-250 mg-65 mg tabl et (Excedrin (units unknown) (unknown) (unknown) (no date) (unknown) (unknown) moist mucous membranes (units unknown) (unknown) (unknown) (no date) (unknown) (unknown) omeprazole 20 mg-sodium 1 cap PO DAILY PRN GI Upset 08/13/22 09/14/22 (units unknown) (unknown) (unknown) (no date) (unknown) (unknown) omeprazole-sodium bicarbonate [Zegerid] 20-1.1 mg-gram Capsule (units unknown) (unknown) (unknown) (no date) (unknown) (unknown) or illicit. Dr. Willis River is her orthopedic surgeon. Patient states her (units unknown) (unknown) (unknown) (no date) (unknown) (unknown) oxycodone 5 mg Tablet (units unknown) (unknown) (unknown) (no date) (unknown) (unknown) oxycodone 5 mg table t 5 mg PO Q3H PRN Pain, Moderate 09/15/22 (units unknown) (unknown) (unknown) (no date) (unknown) (unknown) plantar and dorsiflexion of the foot on the left, she has 2+ dorsalis pedis (units unknown) (unknown) (unknown) (no date) (unknown) (unknown) pop. X-ray shows wha t appears to be dislocation. Patient is 2 weeks postop (units unknown) (unknown) (unknown) (no date) (unknown) (unknown) prior knee replacement. Patient states no cardiac history. No tobacco, alcohol (units unknown) (unknown) (unknown) (no date) (unknown) (unknown) release (units unknown) (unknown) (unknown) (no date) (unknown) (unknown) replacement on 09/14/2022. Patient states she was seated using the toilet when (units unknown) (unknown) (unknown) (no date) (unknown) (unknown) seconds bilaterally. Patient is shortened and slightly rotated on exam, no (units unknown) (unknown) (unknown) (no date) (unknown) (unknown) she went to stand up and felt a pop in her left hip and had sudden pain which (units unknown) (unknown) (unknown) (no date) (unknown) (unknown) solifenacin 10 mg tablet (Vesicare) 10 mg PO DAILY 08/13/22 09/14/22 (units unknown) (unknown) (unknown) (no date) (unknown) (unknown) solifenacin [Vesicar e] 10 mg Tablet (units unknown) (unknown) (unknown) (no date) (unknown) (unknown) states her only othe r surgeries have been prior hip replacement 2 weeks ago and (units unknown) (unknown) (unknown) (no date) (unknown) (unknown) states no numbness o r tingling or weakness. She has pain down the leg. Patient (units unknown) (unknown) (unknown) (no date) (unknown) (unknown) we did discuss that sometimes Dr. River prefers he is herself to be reduced. (units unknown) (unknown) Result panel 1299 (unknown) (no date) (unknown) (unknown) (no value) (units unknown) (unknown) (unknown) (no date) (unknown) (unknown) 09/27/22 (units unknown) (unknown) (unknown) (no date) (unknown) (unknown) [address] [place] [address] (units unknown) (unknown) (unknown) (no date) (unknown) (unknown) [address] (units unknown) (unknown) (unknown) (no date) (unknown) (unknown) Accession Number: [id number] (units unknown) (unknown) (unknown) (no date) (unknown) (unknown) Age/Sex: 72 / F Date of Service: (units unknown) (unknown) (unknown) (no date) (unknown) (unknown) [place] [address] (units unknown) (unknown) (unknown) (no date) (unknown) (unknown) Approved by: Urvashi Ny M.D. on 09/27/2022 at 16:56 (units unknown) (unknown) (unknown) (no date) (unknown) (unknown) Bones: There remains superior dislocation of the left hip arthroplasty. No (units unknown) (unknown) (unknown) (no date) (unknown) (unknown) COMPARISON: [facility], CR, XR HIP W PEL IF DONE LT 2V, 09/27/2022, 15:02. (units unknown) (unknown) (unknown) (no date) (unknown) (unknown) : 1950 Acct:[id number] (units unknown) (unknown) (unknown) (no date) (unknown) (unknown) Dictated by: Urvashi Ny M.D. on 09/27/2022 at 16:55 (units unknown) (unknown) (unknown) (no date) (unknown) (unknown) FINDINGS: (units unknown) (unknown) (unknown) (no date) (unknown) (unknown) IMPRESSION: Unchange d appearance of dislocated left hip prosthesis. No (units unknown) (unknown) (unknown) (no date) (unknown) (unknown) INDICATIONS: relocation (units unknown) (unknown) (unknown) (no date) (unknown) (unknown) [facility] (units unknown) (unknown) (unknown) (no date) (unknown) (unknown) Loc: ED (units unknown) (unknown) (unknown) (no date) (unknown) (unknown) Ordering Provider: Galina Thapa D.O. (units unknown) (unknown) (unknown) (no date) (unknown) (unknown) PROCEDURE: XR HIP W PEL IF DONE LT 2V (units unknown) (unknown) (unknown) (no date) (unknown) (unknown) Patient: Barbara Garcia MR#: [id number] (units unknown) (unknown) (unknown) (no date) (unknown) (unknown) Procedure: XR hip w pel if done LT 2V (units unknown) (unknown) (unknown) (no date) (unknown) (unknown) Signed (units unknown) (unknown) (unknown) (no date) (unknown) (unknown) Soft tissues: The visualized bowel gas pattern is normal. No suspicious soft (units unknown) (unknown) (unknown) (no date) (unknown) (unknown) TECHNIQUE: AP pelvis with lateral view(s) of the left hip(s). (units unknown) (unknown) (unknown) (no date) (unknown) (unknown) XRay Report (units unknown) (unknown) (unknown) (no date) (unknown) (unknown) calcifications. (units unknown) (unknown) (unknown) (no date) (unknown) (unknown) gross (units unknown) (unknown) (unknown) (no date) (unknown) (unknown) osseous fracture is identified. (units unknown) (unknown) (unknown) (no date) (unknown) (unknown) osseous or hardware fracture. (units unknown) (unknown) (unknown) (no date) (unknown) (unknown) tissue (units unknown) (unknown) (unknown) (no date) (unknown) (unknown) visualized (units unknown) (unknown) Result panel 1300 (unknown) (no date) (unknown) (unknown) (no value) (units unknown) (unknown) (unknown) (no date) (unknown) (unknown) #90 tabs (units unknown) (unknown) (unknown) (no date) (unknown) (unknown) (4-6) #42 tabs (units unknown) (unknown) (unknown) (no date) (unknown) (unknown) (Zegerid) (units unknown) (unknown) (unknown) (no date) (unknown) (unknown) + for hip dislocation. (units unknown) (unknown) (unknown) (no date) (unknown) (unknown) - Unspecified dislocation of left hip, initial encounter (units unknown) (unknown) (unknown) (no date) (unknown) (unknown) 09/27/22 15:04 (units unknown) (unknown) (unknown) (no date) (unknown) (unknown) 09/27/22 15:45 (units unknown) (unknown) (unknown) (no date) (unknown) (unknown) 09/27/22 16:35 (units unknown) (unknown) (unknown) (no date) (unknown) (unknown) 09/27/22 16:42 (units unknown) (unknown) (unknown) (no date) (unknown) (unknown) 09/27/22 Range/Units (units unknown) (unknown) (unknown) (no date) (unknown) (unknown) 09/27/22 (units unknown) (unknown) (unknown) (no date) (unknown) (unknown) 0RF (units unknown) (unknown) (unknown) (no date) (unknown) (unknown) 1 - 2 tab PO BID (units unknown) (unknown) (unknown) (no date) (unknown) (unknown) 1 cap PO DAILY PRN (Reason: GI Upset) (units unknown) (unknown) (unknown) (no date) (unknown) (unknown) 10 mg PO DAILY PRN (Reason: Seasonal allergies) (units unknown) (unknown) (unknown) (no date) (unknown) (unknown) 10 mg PO DAILY (units unknown) (unknown) (unknown) (no date) (unknown) (unknown) 100 mg PO BID PRN (Reason: constipation) Qty: 30 0RF (units unknown) (unknown) (unknown) (no date) (unknown) (unknown) 15:00 09/27/22 (units unknown) (unknown) (unknown) (no date) (unknown) (unknown) 15:39 09/27/22 (units unknown) (unknown) (unknown) (no date) (unknown) (unknown) 15:45 (units unknown) (unknown) (unknown) (no date) (unknown) (unknown) 15:56 09/27/22 (units unknown) (unknown) (unknown) (no date) (unknown) (unknown) 15:56 (units unknown) (unknown) (unknown) (no date) (unknown) (unknown) 16:00 09/27/22 (units unknown) (unknown) (unknown) (no date) (unknown) (unknown) 16:01 (units unknown) (unknown) (unknown) (no date) (unknown) (unknown) 20 mg PO BEDTIME (units unknown) (unknown) (unknown) (no date) (unknown) (unknown) 20 mg PO DAILY (units unknown) (unknown) (unknown) (no date) (unknown) (unknown) 3151 (units unknown) (unknown) (unknown) (no date) (unknown) (unknown) 400 mg PO Q4H MDD Ma x 2400 mg per day PRN (Reason: Pain/inflammation) Qty: 90 (units unknown) (unknown) (unknown) (no date) (unknown) (unknown) 5 mg PO Q3H PRN (Reason: Pain, Moderate (4-6)) Qty: 42 0RF (units unknown) (unknown) (unknown) (no date) (unknown) (unknown) 650 mg PO Q6H MDD Ma x 3000 mg per day PRN (Reason: fever or pain) Qty: 90 0RF (units unknown) (unknown) (unknown) (no date) (unknown) (unknown) 81 mg PO BID 42 Days Qty: 84 0RF (units unknown) (unknown) (unknown) (no date) (unknown) (unknown) ABDOMEN: Soft, nontender. Normoactive bowel sounds all 4 quadrants. No (units unknown) (unknown) (unknown) (no date) (unknown) (unknown) Age/Sex: 72 / F (units unknown) (unknown) (unknown) (no date) (unknown) (unknown) Allergies (units unknown) (unknown) (unknown) (no date) (unknown) (unknown) Allergy/AdvReac Type Severity Reaction Status Date / Time (units unknown) (unknown) (unknown) (no date) (unknown) (unknown) Blood Pressure 153/7 2 H 09/27/22 15:00 (units unknown) (unknown) (unknown) (no date) (unknown) (unknown) Blood Pressure 153/7 2 H (units unknown) (unknown) (unknown) (no date) (unknown) (unknown) Blood Pressure 154/7 9 H (units unknown) (unknown) (unknown) (no date) (unknown) (unknown) Blood Pressure 160/9 9 H (units unknown) (unknown) (unknown) (no date) (unknown) (unknown) CARDIOVASCULAR: Regular rate and rhythm without murmurs, rubs or gallops. (units unknown) (unknown) (unknown) (no date) (unknown) (unknown) COVID19 -Nasal RAPID Stat (units unknown) (unknown) (unknown) (no date) (unknown) (unknown) Chief complaint: Extremity Problem,Nontraumatic (units unknown) (unknown) (unknown) (no date) (unknown) (unknown) Clinical Impression: (units unknown) (unknown) (unknown) (no date) (unknown) (unknown) Course (units unknown) (unknown) (unknown) (no date) (unknown) (unknown) : 1950 Acct:[id number] (units unknown) (unknown) (unknown) (no date) (unknown) (unknown) Date of Service: 09/27/22 (units unknown) (unknown) (unknown) (no date) (unknown) (unknown) Departure (units unknown) (unknown) (unknown) (no date) (unknown) (unknown) Depression (units unknown) (unknown) (unknown) (no date) (unknown) (unknown) Discharge Plan (units unknown) (unknown) (unknown) (no date) (unknown) (unknown) Discontinued Medications (units unknown) (unknown) (unknown) (no date) (unknown) (unknown) Dislocation, hip closed (units unknown) (unknown) (unknown) (no date) (unknown) (unknown) Diverticulitis (units unknown) (unknown) (unknown) (no date) (unknown) (unknown) ED Orders (units unknown) (unknown) (unknown) (no date) (unknown) (unknown) ER Physician: Galina Thapa D.O. (units unknown) (unknown) (unknown) (no date) (unknown) (unknown) EXTREMITIES: Decreas ed range of motion of the left hip, patient has good (units unknown) (unknown) (unknown) (no date) (unknown) (unknown) Emergency Report (units unknown) (unknown) (unknown) (no date) (unknown) (unknown) Encounter type: initial encounter Laterality: left Qualified Code(s): S73.005A (units unknown) (unknown) (unknown) (no date) (unknown) (unknown) Exam Narrative: (units unknown) (unknown) (unknown) (no date) (unknown) (unknown) Exam (units unknown) (unknown) (unknown) (no date) (unknown) (unknown) Excedrin Extra Strength 250-250-65 mg Tablet (units unknown) (unknown) (unknown) (no date) (unknown) (unknown) Extra Strength) (units unknown) (unknown) (unknown) (no date) (unknown) (unknown) Extremity x-ray #1: (units unknown) (unknown) (unknown) (no date) (unknown) (unknown) GENERAL: Alert and oriented x three, elderly female in moderate distress. (units unknown) (unknown) (unknown) (no date) (unknown) (unknown) GERD (gastroesophage al reflux disease) (units unknown) (unknown) (unknown) (no date) (unknown) (unknown) : No CVA tenderness (units unknown) (unknown) (unknown) (no date) (unknown) (unknown) General (units unknown) (unknown) (unknown) (no date) (unknown) (unknown) HEENT: Head normocephalic, atraumatic, EOMI, pupils reactive, face symmetric, (units unknown) (unknown) (unknown) (no date) (unknown) (unknown) HLD (hyperlipidemia) (units unknown) (unknown) (unknown) (no date) (unknown) (unknown) HPI - Extremity Problem (units unknown) (unknown) (unknown) (no date) (unknown) (unknown) HPI Narrative: (units unknown) (unknown) (unknown) (no date) (unknown) (unknown) Hearing impaired (units unknown) (unknown) (unknown) (no date) (unknown) (unknown) History of Present Illness (units unknown) (unknown) (unknown) (no date) (unknown) (unknown) History of bladder surgery (units unknown) (unknown) (unknown) (no date) (unknown) (unknown) History of total lef t knee replacement (units unknown) (unknown) (unknown) (no date) (unknown) (unknown) History of total rig ht knee replacement (units unknown) (unknown) (unknown) (no date) (unknown) (unknown) Home Medications (units unknown) (unknown) (unknown) (no date) (unknown) (unknown) Hx of left breast biopsy (units unknown) (unknown) (unknown) (no date) (unknown) (unknown) Hx of right breast biopsy (units unknown) (unknown) (unknown) (no date) (unknown) (unknown) Hx of tonsillectomy (units unknown) (unknown) (unknown) (no date) (unknown) (unknown) If unsuccessful to call back if successful knee immobilizer ambulation trial and (units unknown) (unknown) (unknown) (no date) (unknown) (unknown) Imaging Data (units unknown) (unknown) (unknown) (no date) (unknown) (unknown) Initial Vital Signs (units unknown) (unknown) (unknown) (no date) (unknown) (unknown) Initial Vital Signs: (units unknown) (unknown) (unknown) (no date) (unknown) (unknown) [address] [address] (units unknown) (unknown) (unknown) (no date) (unknown) (unknown) Lab Data (units unknown) (unknown) (unknown) (no date) (unknown) (unknown) Lab Results (units unknown) (unknown) (unknown) (no date) (unknown) (unknown) Labs: (units unknown) (unknown) (unknown) (no date) (unknown) (unknown) Last Admin: 09/27/22 15:41 Dose: 4 mg (units unknown) (unknown) (unknown) (no date) (unknown) (unknown) MDM - Extremity (Nontraumatic) (units unknown) (unknown) (unknown) (no date) (unknown) (unknown) MDM Narrative (units unknown) (unknown) (unknown) (no date) (unknown) (unknown) Medical History (units unknown) (unknown) (unknown) (no date) (unknown) (unknown) Medical decision making narrative: (units unknown) (unknown) (unknown) (no date) (unknown) (unknown) Medication Instructions Recorded Confirmed (units unknown) (unknown) (unknown) (no date) (unknown) (unknown) Medication Instructions Recorded (units unknown) (unknown) (unknown) (no date) (unknown) (unknown) Mode of arrival: EMS (units unknown) (unknown) (unknown) (no date) (unknown) (unknown) Morphine Sulfate (Morphine 4 Mg/Ml Inj) 4 mg IV NOW ONE (units unknown) (unknown) (unknown) (no date) (unknown) (unknown) My Impression: (units unknown) (unknown) (unknown) (no date) (unknown) (unknown) NECK: Supple, full range of motion (units unknown) (unknown) (unknown) (no date) (unknown) (unknown) NEUROLOGICAL: Crania l nerves II through XII grossly intact. Moving all (units unknown) (unknown) (unknown) (no date) (unknown) (unknown) Narrative (units unknown) (unknown) (unknown) (no date) (unknown) (unknown) No Action (units unknown) (unknown) (unknown) (no date) (unknown) (unknown) No Known Drug Allergies Allergy Verified 08/13/22 11:07 (units unknown) (unknown) (unknown) (no date) (unknown) (unknown) Ondansetron HCl (Ondansetron 4 Mg/2 Ml Inj) 4 mg IV Q6HR PRN (units unknown) (unknown) (unknown) (no date) (unknown) (unknown) Ordered: (units unknown) (unknown) (unknown) (no date) (unknown) (unknown) Orders (units unknown) (unknown) (unknown) (no date) (unknown) (unknown) Orthopedic surgery, Dr. Paulino. Discussed patient is just under 2 weeks out (units unknown) (unknown) (unknown) (no date) (unknown) (unknown) Osteoarthritis (units unknown) (unknown) (unknown) (no date) (unknown) (unknown) Oxygen Delivery Meth od Room Air 09/27/22 15:00 (units unknown) (unknown) (unknown) (no date) (unknown) (unknown) Oxygen Delivery Meth od Room Air (units unknown) (unknown) (unknown) (no date) (unknown) (unknown) Oxygen Delivery Method (units unknown) (unknown) (unknown) (no date) (unknown) (unknown) PRN Reason: Nausea A nd Vomiting (units unknown) (unknown) (unknown) (no date) (unknown) (unknown) Pain/inflammation #9 0 tabs (units unknown) (unknown) (unknown) (no date) (unknown) (unknown) Patient History (units unknown) (unknown) (unknown) (no date) (unknown) (unknown) Patient: Barbara Garcia MR#: [id number] (units unknown) (unknown) (unknown) (no date) (unknown) (unknown) Prescriptions: (units unknown) (unknown) (unknown) (no date) (unknown) (unknown) Prevent blood clots (units unknown) (unknown) (unknown) (no date) (unknown) (unknown) Previous Rx's (units unknown) (unknown) (unknown) (no date) (unknown) (unknown) Propofol (Propofol 2 00 Mg/20 Ml Vial) 100 mg IV NOW ONE (units unknown) (unknown) (unknown) (no date) (unknown) (unknown) Pulse Oximetry 95 09/27/22 15:00 (units unknown) (unknown) (unknown) (no date) (unknown) (unknown) Pulse Oximetry 95 99 99 (units unknown) (unknown) (unknown) (no date) (unknown) (unknown) Pulse Oximetry 99 99 (units unknown) (unknown) (unknown) (no date) (unknown) (unknown) Pulse Oximetry (units unknown) (unknown) (unknown) (no date) (unknown) (unknown) Pulse Rate 61 15:00 (units unknown) (unknown) (unknown) (no date) (unknown) (unknown) Pulse Rate 61 62 64 (units unknown) (unknown) (unknown) (no date) (unknown) (unknown) Pulse Rate 67 69 (units unknown) (unknown) (unknown) (no date) (unknown) (unknown) Pulse Rate (units unknown) (unknown) (unknown) (no date) (unknown) (unknown) Qualifiers: (units unknown) (unknown) (unknown) (no date) (unknown) (unknown) RESPIRATORY: Breath sounds equal bilaterally, no wheezes rales or rhonchi. (units unknown) (unknown) (unknown) (no date) (unknown) (unknown) ROS Unobtainable: Al l systems reviewed + are unremarkable except as noted in HPI (units unknown) (unknown) (unknown) (no date) (unknown) (unknown) Referrals: (units unknown) (unknown) (unknown) (no date) (unknown) (unknown) Related Data (units unknown) (unknown) (unknown) (no date) (unknown) (unknown) Respiratory Rate 16 09/27/22 15:00 (units unknown) (unknown) (unknown) (no date) (unknown) (unknown) Respiratory Rate 16 (units unknown) (unknown) (unknown) (no date) (unknown) (unknown) Respiratory Rate (units unknown) (unknown) (unknown) (no date) (unknown) (unknown) Review of Systems (units unknown) (unknown) (unknown) (no date) (unknown) (unknown) Rx Instructions: (units unknown) (unknown) (unknown) (no date) (unknown) (unknown) SARS-CoV-2 (PCR) Negative (Negative) (units unknown) (unknown) (unknown) (no date) (unknown) (unknown) SKIN: Warm, dry, no petechiae, no rashes or lesions. (units unknown) (unknown) (unknown) (no date) (unknown) (unknown) Seasonal allergies (units unknown) (unknown) (unknown) (no date) (unknown) (unknown) She recommends longitudinal traction with little bit anterior, extended knee. (units unknown) (unknown) (unknown) (no date) (unknown) (unknown) Signed By: (units unknown) (unknown) (unknown) (no date) (unknown) (unknown) Smoking Status: Alejandrae r smoker (units unknown) (unknown) (unknown) (no date) (unknown) (unknown) Social History (units unknown) (unknown) (unknown) (no date) (unknown) (unknown) Sodium Chloride (Normal Saline 0.9%) 1,000 mls @ 100 mls/hr IV CONT MINDI (units unknown) (unknown) (unknown) (no date) (unknown) (unknown) Source: patient and EMS (units unknown) (unknown) (unknown) (no date) (unknown) (unknown) Stated complaint: Lt Hip Pain (units unknown) (unknown) (unknown) (no date) (unknown) (unknown) Stop: 09/27/22 15:32 (units unknown) (unknown) (unknown) (no date) (unknown) (unknown) Stop: 09/27/22 16:11 (units unknown) (unknown) (unknown) (no date) (unknown) (unknown) Substance Use Type: does not use (units unknown) (unknown) (unknown) (no date) (unknown) (unknown) Surgical History (units unknown) (unknown) (unknown) (no date) (unknown) (unknown) Temperature 97.8 F 09/27/22 15:00 (units unknown) (unknown) (unknown) (no date) (unknown) (unknown) Temperature 97.8 F (units unknown) (unknown) (unknown) (no date) (unknown) (unknown) Temperature (units unknown) (unknown) (unknown) (no date) (unknown) (unknown) This is a 72-year-ol d female with complaint of left hip pain and a sensation of (units unknown) (unknown) (unknown) (no date) (unknown) (unknown) This is a 72-year-ol d female with history of dyslipidemia, anxiety and left hip (units unknown) (unknown) (unknown) (no date) (unknown) (unknown) Time Seen by Provide r: 09/27/22 15:17 (units unknown) (unknown) (unknown) (no date) (unknown) (unknown) Vital Signs - 8 hr (units unknown) (unknown) (unknown) (no date) (unknown) (unknown) Vital Signs (units unknown) (unknown) (unknown) (no date) (unknown) (unknown) Vital signs: (units unknown) (unknown) (unknown) (no date) (unknown) (unknown) XR hip w pel if done LT 2V Stat (units unknown) (unknown) (unknown) (no date) (unknown) (unknown) Maria Teresa Larsen PA-C [Primary Care Provider] (units unknown) (unknown) (unknown) (no date) (unknown) (unknown) acetaminophen 325 mg Tablet (units unknown) (unknown) (unknown) (no date) (unknown) (unknown) acetaminophen 325 mg tablet 650 mg PO Q6H PRN fever or pain 09/15/22 (units unknown) (unknown) (unknown) (no date) (unknown) (unknown) alcohol intake frequency: holidays/special occasions only (units unknown) (unknown) (unknown) (no date) (unknown) (unknown) alcohol intake: current (units unknown) (unknown) (unknown) (no date) (unknown) (unknown) allergies (units unknown) (unknown) (unknown) (no date) (unknown) (unknown) and below (units unknown) (unknown) (unknown) (no date) (unknown) (unknown) aspirin 81 mg Tablet,Delayed Release (Dr/Ec) (units unknown) (unknown) (unknown) (no date) (unknown) (unknown) aspirin 81 mg tablet,delayed 81 mg PO BID 6 weeks #84 tabs 09/15/22 (units unknown) (unknown) (unknown) (no date) (unknown) (unknown) aspirin-acetaminophe n- caffeine 250 1 - 2 tab PO BID 08/13/22 09/14/22 (units unknown) (unknown) (unknown) (no date) (unknown) (unknown) atorvastatin 20 mg Tablet (units unknown) (unknown) (unknown) (no date) (unknown) (unknown) atorvastatin 20 mg tablet 20 mg PO BEDTIME 08/13/22 09/14/22 (units unknown) (unknown) (unknown) (no date) (unknown) (unknown) bicarbonate 1.1 gram capsule (units unknown) (unknown) (unknown) (no date) (unknown) (unknown) bilaterally with normal sensation throughout the leg. Cap refill less than 2 (units unknown) (unknown) (unknown) (no date) (unknown) (unknown) caps (units unknown) (unknown) (unknown) (no date) (unknown) (unknown) cetirizine 10 mg tablet (Zyrtec) 10 mg PO DAILY PRN Seasonal 08/13/22 09/14/22 (units unknown) (unknown) (unknown) (no date) (unknown) (unknown) cetirizine [Zyrtec] 10 mg Tablet (units unknown) (unknown) (unknown) (no date) (unknown) (unknown) clubbing or edema. Neurovascularly intact (units unknown) (unknown) (unknown) (no date) (unknown) (unknown) dislocated and went back in last week. She was not seen for this. Patient (units unknown) (unknown) (unknown) (no date) (unknown) (unknown) docusate sodium 100 mg Capsule (units unknown) (unknown) (unknown) (no date) (unknown) (unknown) docusate sodium 100 mg capsule 100 mg PO BID PRN constipation #30 09/15/22 (units unknown) (unknown) (unknown) (no date) (unknown) (unknown) escitalopram oxalate 20 mg Tablet (units unknown) (unknown) (unknown) (no date) (unknown) (unknown) escitalopram oxalate 20 mg tablet 20 mg PO DAILY 08/13/22 09/14/22 (units unknown) (unknown) (unknown) (no date) (unknown) (unknown) extremities (units unknown) (unknown) (unknown) (no date) (unknown) (unknown) fentanyl in route which was helpful but has since worn off and she is become (units unknown) (unknown) (unknown) (no date) (unknown) (unknown) follow-up. (units unknown) (unknown) (unknown) (no date) (unknown) (unknown) from prior surgery films. She feels comfortable with his emptying at this time (units unknown) (unknown) (unknown) (no date) (unknown) (unknown) guarding or rebound, rigidity, no mass (units unknown) (unknown) (unknown) (no date) (unknown) (unknown) has been persistent. She states she had 1 episode where she felt like her hip (units unknown) (unknown) (unknown) (no date) (unknown) (unknown) household members: spouse (units unknown) (unknown) (unknown) (no date) (unknown) (unknown) ibuprofen 400 mg Tablet (units unknown) (unknown) (unknown) (no date) (unknown) (unknown) ibuprofen 400 mg tablet 400 mg PO Q4H PRN 09/15/22 (units unknown) (unknown) (unknown) (no date) (unknown) (unknown) increasingly painful. (units unknown) (unknown) (unknown) (no date) (unknown) (unknown) last meal was at noo n she had water approximately the same time. Patient had (units unknown) (unknown) (unknown) (no date) (unknown) (unknown) mg-250 mg-65 mg tabl et (Excedrin (units unknown) (unknown) (unknown) (no date) (unknown) (unknown) moist mucous membranes (units unknown) (unknown) (unknown) (no date) (unknown) (unknown) om hip replacement. Patient is neurovascularly intact. Consultation with (units unknown) (unknown) (unknown) (no date) (unknown) (unknown) omeprazole 20 mg-sodium 1 cap PO DAILY PRN GI Upset 08/13/22 09/14/22 (units unknown) (unknown) (unknown) (no date) (unknown) (unknown) omeprazole-sodium bicarbonate [Zegerid] 20-1.1 mg-gram Capsule (units unknown) (unknown) (unknown) (no date) (unknown) (unknown) or illicit. Dr. Willis River is her orthopedic surgeon. Patient states her (units unknown) (unknown) (unknown) (no date) (unknown) (unknown) oxycodone 5 mg Tablet (units unknown) (unknown) (unknown) (no date) (unknown) (unknown) oxycodone 5 mg table t 5 mg PO Q3H PRN Pain, Moderate 09/15/22 (units unknown) (unknown) (unknown) (no date) (unknown) (unknown) plantar and dorsiflexion of the foot on the left, she has 2+ dorsalis pedis (units unknown) (unknown) (unknown) (no date) (unknown) (unknown) pop. X-ray shows wha t appears to be dislocation. Patient is 2 weeks postop fr (units unknown) (unknown) (unknown) (no date) (unknown) (unknown) prior knee replacement. Patient states no cardiac history. No tobacco, alcohol (units unknown) (unknown) (unknown) (no date) (unknown) (unknown) release (units unknown) (unknown) (unknown) (no date) (unknown) (unknown) replacement on 09/14/2022. Patient states she was seated using the toilet when (units unknown) (unknown) (unknown) (no date) (unknown) (unknown) seconds bilaterally. Patient is shortened and slightly rotated on exam, no (units unknown) (unknown) (unknown) (no date) (unknown) (unknown) she went to stand up and felt a pop in her left hip and had sudden pain which (units unknown) (unknown) (unknown) (no date) (unknown) (unknown) solifenacin 10 mg tablet (Vesicare) 10 mg PO DAILY 08/13/22 09/14/22 (units unknown) (unknown) (unknown) (no date) (unknown) (unknown) solifenacin [Vesicar e] 10 mg Tablet (units unknown) (unknown) (unknown) (no date) (unknown) (unknown) states her only othe r surgeries have been prior hip replacement 2 weeks ago and (units unknown) (unknown) (unknown) (no date) (unknown) (unknown) states no numbness o r tingling or weakness. She has pain down the leg. Patient (units unknown) (unknown) (unknown) (no date) (unknown) (unknown) we did discuss that sometimes Dr. River prefers he is herself to be reduced. (units unknown) (unknown) Result panel [id number] (unknown) (no date) (unknown) (unknown) (no value) (units unknown) (unknown) (unknown) (no date) (unknown) (unknown) #90 tabs (units unknown) (unknown) (unknown) (no date) (unknown) (unknown) (4-6) #42 tabs (units unknown) (unknown) (unknown) (no date) (unknown) (unknown) (Zegerid) (units unknown) (unknown) (unknown) (no date) (unknown) (unknown) + for hip dislocation. (units unknown) (unknown) (unknown) (no date) (unknown) (unknown) - Unspecified dislocation of left hip, initial encounter (units unknown) (unknown) (unknown) (no date) (unknown) (unknown) 09/27/22 15:04 (units unknown) (unknown) (unknown) (no date) (unknown) (unknown) 09/27/22 15:45 (units unknown) (unknown) (unknown) (no date) (unknown) (unknown) 09/27/22 16:35 (units unknown) (unknown) (unknown) (no date) (unknown) (unknown) 09/27/22 16:42 (units unknown) (unknown) (unknown) (no date) (unknown) (unknown) 09/27/22 Range/Units (units unknown) (unknown) (unknown) (no date) (unknown) (unknown) 09/27/22 (units unknown) (unknown) (unknown) (no date) (unknown) (unknown) 0RF (units unknown) (unknown) (unknown) (no date) (unknown) (unknown) 1 - 2 tab PO BID (units unknown) (unknown) (unknown) (no date) (unknown) (unknown) 1 cap PO DAILY PRN (Reason: GI Upset) (units unknown) (unknown) (unknown) (no date) (unknown) (unknown) 10 mg PO DAILY PRN (Reason: Seasonal allergies) (units unknown) (unknown) (unknown) (no date) (unknown) (unknown) 10 mg PO DAILY (units unknown) (unknown) (unknown) (no date) (unknown) (unknown) 100 mg PO BID PRN (Reason: constipation) Qty: 30 0RF (units unknown) (unknown) (unknown) (no date) (unknown) (unknown) 15:00 09/27/22 (units unknown) (unknown) (unknown) (no date) (unknown) (unknown) 15:39 09/27/22 (units unknown) (unknown) (unknown) (no date) (unknown) (unknown) 15:45 (units unknown) (unknown) (unknown) (no date) (unknown) (unknown) 15:56 09/27/22 (units unknown) (unknown) (unknown) (no date) (unknown) (unknown) 15:56 (units unknown) (unknown) (unknown) (no date) (unknown) (unknown) 16:00 09/27/22 (units unknown) (unknown) (unknown) (no date) (unknown) (unknown) 16:01 (units unknown) (unknown) (unknown) (no date) (unknown) (unknown) 20 mg PO BEDTIME (units unknown) (unknown) (unknown) (no date) (unknown) (unknown) 20 mg PO DAILY (units unknown) (unknown) (unknown) (no date) (unknown) (unknown) 3151 (units unknown) (unknown) (unknown) (no date) (unknown) (unknown) 400 mg PO Q4H MDD Ma x 2400 mg per day PRN (Reason: Pain/inflammation) Qty: 90 (units unknown) (unknown) (unknown) (no date) (unknown) (unknown) 5 mg PO Q3H PRN (Reason: Pain, Moderate (4-6)) Qty: 42 0RF (units unknown) (unknown) (unknown) (no date) (unknown) (unknown) 650 mg PO Q6H MDD Ma x 3000 mg per day PRN (Reason: fever or pain) Qty: 90 0RF (units unknown) (unknown) (unknown) (no date) (unknown) (unknown) 81 mg PO BID 42 Days Qty: 84 0RF (units unknown) (unknown) (unknown) (no date) (unknown) (unknown) ABDOMEN: Soft, nontender. Normoactive bowel sounds all 4 quadrants. No (units unknown) (unknown) (unknown) (no date) (unknown) (unknown) ASA Class: II (units unknown) (unknown) (unknown) (no date) (unknown) (unknown) Age/Sex: 72 / F (units unknown) (unknown) (unknown) (no date) (unknown) (unknown) Allergies (units unknown) (unknown) (unknown) (no date) (unknown) (unknown) Allergy/AdvReac Type Severity Reaction Status Date / Time (units unknown) (unknown) (unknown) (no date) (unknown) (unknown) Attempted procedural sedation with left hip reduction after discussion with (units unknown) (unknown) (unknown) (no date) (unknown) (unknown) Blood Pressure 153/7 2 H 09/27/22 15:00 (units unknown) (unknown) (unknown) (no date) (unknown) (unknown) Blood Pressure 153/7 2 H (units unknown) (unknown) (unknown) (no date) (unknown) (unknown) Blood Pressure 154/7 9 H (units unknown) (unknown) (unknown) (no date) (unknown) (unknown) Blood Pressure 160/9 9 H (units unknown) (unknown) (unknown) (no date) (unknown) (unknown) CARDIOVASCULAR: Regular rate and rhythm without murmurs, rubs or gallops. (units unknown) (unknown) (unknown) (no date) (unknown) (unknown) COVID19 -Nasal RAPID Stat (units unknown) (unknown) (unknown) (no date) (unknown) (unknown) Chief complaint: Extremity Problem,Nontraumatic (units unknown) (unknown) (unknown) (no date) (unknown) (unknown) Clinical Impression: (units unknown) (unknown) (unknown) (no date) (unknown) (unknown) Complications: hypoventilation (hypoxia) (units unknown) (unknown) (unknown) (no date) (unknown) (unknown) Consent signed: Yes (units unknown) (unknown) (unknown) (no date) (unknown) (unknown) Course (units unknown) (unknown) (unknown) (no date) (unknown) (unknown) Covid swab is negative. (units unknown) (unknown) (unknown) (no date) (unknown) (unknown) : 1950 Acct:[id number] (units unknown) (unknown) (unknown) (no date) (unknown) (unknown) Date of Service: 09/27/22 (units unknown) (unknown) (unknown) (no date) (unknown) (unknown) Departure (units unknown) (unknown) (unknown) (no date) (unknown) (unknown) Depression (units unknown) (unknown) (unknown) (no date) (unknown) (unknown) Discharge Plan (units unknown) (unknown) (unknown) (no date) (unknown) (unknown) Discontinued Medications (units unknown) (unknown) (unknown) (no date) (unknown) (unknown) Dislocation, hip closed (units unknown) (unknown) (unknown) (no date) (unknown) (unknown) Diverticulitis (units unknown) (unknown) (unknown) (no date) (unknown) (unknown) ED Orders (units unknown) (unknown) (unknown) (no date) (unknown) (unknown) ED Sedation Level: Moderate (Concious) (units unknown) (unknown) (unknown) (no date) (unknown) (unknown) ER Physician: Galina Thapa D.O. (units unknown) (unknown) (unknown) (no date) (unknown) (unknown) EXTREMITIES: Decreas ed range of motion of the left hip, patient has good (units unknown) (unknown) (unknown) (no date) (unknown) (unknown) Emergency Report (units unknown) (unknown) (unknown) (no date) (unknown) (unknown) Encounter type: initial encounter Laterality: left Qualified Code(s): S73.005A (units unknown) (unknown) (unknown) (no date) (unknown) (unknown) Exam Narrative: (units unknown) (unknown) (unknown) (no date) (unknown) (unknown) Exam (units unknown) (unknown) (unknown) (no date) (unknown) (unknown) Excedrin Extra Strength 250-250-65 mg Tablet (units unknown) (unknown) (unknown) (no date) (unknown) (unknown) Extra Strength) (units unknown) (unknown) (unknown) (no date) (unknown) (unknown) Extremity x-ray #1: (units unknown) (unknown) (unknown) (no date) (unknown) (unknown) GENERAL: Alert and oriented x three, elderly female in moderate distress. (units unknown) (unknown) (unknown) (no date) (unknown) (unknown) GERD (gastroesophage al reflux disease) (units unknown) (unknown) (unknown) (no date) (unknown) (unknown) : No CVA tenderness (units unknown) (unknown) (unknown) (no date) (unknown) (unknown) General (units unknown) (unknown) (unknown) (no date) (unknown) (unknown) HEENT: Head normocephalic, atraumatic, EOMI, pupils reactive, face symmetric, (units unknown) (unknown) (unknown) (no date) (unknown) (unknown) HLD (hyperlipidemia) (units unknown) (unknown) (unknown) (no date) (unknown) (unknown) HPI - Extremity Problem (units unknown) (unknown) (unknown) (no date) (unknown) (unknown) HPI Narrative: (units unknown) (unknown) (unknown) (no date) (unknown) (unknown) Hearing impaired (units unknown) (unknown) (unknown) (no date) (unknown) (unknown) History of Present Illness (units unknown) (unknown) (unknown) (no date) (unknown) (unknown) History of bladder surgery (units unknown) (unknown) (unknown) (no date) (unknown) (unknown) History of total lef t knee replacement (units unknown) (unknown) (unknown) (no date) (unknown) (unknown) History of total rig ht knee replacement (units unknown) (unknown) (unknown) (no date) (unknown) (unknown) Home Medications (units unknown) (unknown) (unknown) (no date) (unknown) (unknown) Hx of left breast biopsy (units unknown) (unknown) (unknown) (no date) (unknown) (unknown) Hx of right breast biopsy (units unknown) (unknown) (unknown) (no date) (unknown) (unknown) Hx of tonsillectomy (units unknown) (unknown) (unknown) (no date) (unknown) (unknown) IV Propofol dose (mg ): 150 (units unknown) (unknown) (unknown) (no date) (unknown) (unknown) If unsuccessful to call back if successful knee immobilizer ambulation trial and (units unknown) (unknown) (unknown) (no date) (unknown) (unknown) Imaging Data (units unknown) (unknown) (unknown) (no date) (unknown) (unknown) Indication: fracture/dislocation reduction (units unknown) (unknown) (unknown) (no date) (unknown) (unknown) Initial Vital Signs (units unknown) (unknown) (unknown) (no date) (unknown) (unknown) Initial Vital Signs: (units unknown) (unknown) (unknown) (no date) (unknown) (unknown) Interventions: Airwa y repositioned, Assist by BVM and Oxygen applied (units unknown) (unknown) (unknown) (no date) (unknown) (unknown) [address] [address] (units unknown) (unknown) (unknown) (no date) (unknown) (unknown) Joint #1: (units unknown) (unknown) (unknown) (no date) (unknown) (unknown) Joint Reduction Location: hip (units unknown) (unknown) (unknown) (no date) (unknown) (unknown) Lab Data (units unknown) (unknown) (unknown) (no date) (unknown) (unknown) Lab Results (units unknown) (unknown) (unknown) (no date) (unknown) (unknown) Labs: (units unknown) (unknown) (unknown) (no date) (unknown) (unknown) Last Admin: 09/27/22 15:41 Dose: 4 mg (units unknown) (unknown) (unknown) (no date) (unknown) (unknown) MDM - Extremity (Nontraumatic) (units unknown) (unknown) (unknown) (no date) (unknown) (unknown) MDM Narrative (units unknown) (unknown) (unknown) (no date) (unknown) (unknown) Mallampati Airway Classification: Class II (units unknown) (unknown) (unknown) (no date) (unknown) (unknown) Medical History (units unknown) (unknown) (unknown) (no date) (unknown) (unknown) Medical decision making narrative: (units unknown) (unknown) (unknown) (no date) (unknown) (unknown) Medication Instructions Recorded Confirmed (units unknown) (unknown) (unknown) (no date) (unknown) (unknown) Medication Instructions Recorded (units unknown) (unknown) (unknown) (no date) (unknown) (unknown) Mode of arrival: EMS (units unknown) (unknown) (unknown) (no date) (unknown) (unknown) Morphine Sulfate (Morphine 4 Mg/Ml Inj) 4 mg IV NOW ONE (units unknown) (unknown) (unknown) (no date) (unknown) (unknown) My Impression: (units unknown) (unknown) (unknown) (no date) (unknown) (unknown) NECK: Supple, full range of motion (units unknown) (unknown) (unknown) (no date) (unknown) (unknown) NEUROLOGICAL: Crania l nerves II through XII grossly intact. Moving all (units unknown) (unknown) (unknown) (no date) (unknown) (unknown) Narrative (units unknown) (unknown) (unknown) (no date) (unknown) (unknown) No Action (units unknown) (unknown) (unknown) (no date) (unknown) (unknown) No Known Drug Allergies Allergy Verified 08/13/22 11:07 (units unknown) (unknown) (unknown) (no date) (unknown) (unknown) Ondansetron HCl (Ondansetron 4 Mg/2 Ml Inj) 4 mg IV Q6HR PRN (units unknown) (unknown) (unknown) (no date) (unknown) (unknown) Ordered: (units unknown) (unknown) (unknown) (no date) (unknown) (unknown) Orders (units unknown) (unknown) (unknown) (no date) (unknown) (unknown) Orthopedic Joint Reduction (units unknown) (unknown) (unknown) (no date) (unknown) (unknown) Orthopedic surgery, Dr. Paulino. Discussed patient is just under 2 weeks out (units unknown) (unknown) (unknown) (no date) (unknown) (unknown) Orthopedic surgery. Patient was very difficult to sedate but would drop her O2 (units unknown) (unknown) (unknown) (no date) (unknown) (unknown) Osteoarthritis (units unknown) (unknown) (unknown) (no date) (unknown) (unknown) Oxygen Delivery Meth od Room Air 09/27/22 15:00 (units unknown) (unknown) (unknown) (no date) (unknown) (unknown) Oxygen Delivery Meth od Room Air (units unknown) (unknown) (unknown) (no date) (unknown) (unknown) Oxygen Delivery Method (units unknown) (unknown) (unknown) (no date) (unknown) (unknown) PRN Reason: Nausea A nd Vomiting (units unknown) (unknown) (unknown) (no date) (unknown) (unknown) Pain/inflammation #9 0 tabs (units unknown) (unknown) (unknown) (no date) (unknown) (unknown) Patient History (units unknown) (unknown) (unknown) (no date) (unknown) (unknown) Patient Tolerated Procedure: Well and No complications (units unknown) (unknown) (unknown) (no date) (unknown) (unknown) Patient: Barbara Garcia MR#: [id number] (units unknown) (unknown) (unknown) (no date) (unknown) (unknown) Post Reduction X-Ray Obtained: Yes (units unknown) (unknown) (unknown) (no date) (unknown) (unknown) Post Reduction X-Ray Results: not reduced (units unknown) (unknown) (unknown) (no date) (unknown) (unknown) Post-reduction neuro exam: intact and no change (units unknown) (unknown) (unknown) (no date) (unknown) (unknown) Post-reduction vascular: intact and no change (units unknown) (unknown) (unknown) (no date) (unknown) (unknown) Preparation: rn cardiac cath applied, pulse oximeter, capnometry used, (units unknown) (unknown) (unknown) (no date) (unknown) (unknown) Prescriptions: (units unknown) (unknown) (unknown) (no date) (unknown) (unknown) Prevent blood clots (units unknown) (unknown) (unknown) (no date) (unknown) (unknown) Previous Rx's (units unknown) (unknown) (unknown) (no date) (unknown) (unknown) Procedural Sedation (units unknown) (unknown) (unknown) (no date) (unknown) (unknown) Procedures (units unknown) (unknown) (unknown) (no date) (unknown) (unknown) Propofol (Propofol 2 00 Mg/20 Ml Vial) 100 mg IV NOW ONE (units unknown) (unknown) (unknown) (no date) (unknown) (unknown) Pulse Oximetry 95 09/27/22 15:00 (units unknown) (unknown) (unknown) (no date) (unknown) (unknown) Pulse Oximetry 95 99 99 (units unknown) (unknown) (unknown) (no date) (unknown) (unknown) Pulse Oximetry 99 99 (units unknown) (unknown) (unknown) (no date) (unknown) (unknown) Pulse Oximetry (units unknown) (unknown) (unknown) (no date) (unknown) (unknown) Pulse Rate 61 15:00 (units unknown) (unknown) (unknown) (no date) (unknown) (unknown) Pulse Rate 61 62 64 (units unknown) (unknown) (unknown) (no date) (unknown) (unknown) Pulse Rate 67 69 (units unknown) (unknown) (unknown) (no date) (unknown) (unknown) Pulse Rate (units unknown) (unknown) (unknown) (no date) (unknown) (unknown) Qualifiers: (units unknown) (unknown) (unknown) (no date) (unknown) (unknown) RESPIRATORY: Breath sounds equal bilaterally, no wheezes rales or rhonchi. (units unknown) (unknown) (unknown) (no date) (unknown) (unknown) ROS Unobtainable: Al l systems reviewed + are unremarkable except as noted in HPI (units unknown) (unknown) (unknown) (no date) (unknown) (unknown) Referrals: (units unknown) (unknown) (unknown) (no date) (unknown) (unknown) Related Data (units unknown) (unknown) (unknown) (no date) (unknown) (unknown) Respiratory Rate 16 09/27/22 15:00 (units unknown) (unknown) (unknown) (no date) (unknown) (unknown) Respiratory Rate 16 (units unknown) (unknown) (unknown) (no date) (unknown) (unknown) Respiratory Rate (units unknown) (unknown) (unknown) (no date) (unknown) (unknown) Review of Systems (units unknown) (unknown) (unknown) (no date) (unknown) (unknown) Rx Instructions: (units unknown) (unknown) (unknown) (no date) (unknown) (unknown) SARS-CoV-2 (PCR) Negative (Negative) (units unknown) (unknown) (unknown) (no date) (unknown) (unknown) SKIN: Warm, dry, no petechiae, no rashes or lesions. (units unknown) (unknown) (unknown) (no date) (unknown) (unknown) Seasonal allergies (units unknown) (unknown) (unknown) (no date) (unknown) (unknown) She recommends longitudinal traction with little bit anterior, extended knee. (units unknown) (unknown) (unknown) (no date) (unknown) (unknown) Side: left (units unknown) (unknown) (unknown) (no date) (unknown) (unknown) Signed By: (units unknown) (unknown) (unknown) (no date) (unknown) (unknown) Smoking Status: Carmencita rubin smoker (units unknown) (unknown) (unknown) (no date) (unknown) (unknown) Social History (units unknown) (unknown) (unknown) (no date) (unknown) (unknown) Sodium Chloride (Normal Saline 0.9%) 1,000 mls @ 100 mls/hr IV CONT MINDI (units unknown) (unknown) (unknown) (no date) (unknown) (unknown) Source: patient and EMS (units unknown) (unknown) (unknown) (no date) (unknown) (unknown) Stated complaint: Lt Hip Pain (units unknown) (unknown) (unknown) (no date) (unknown) (unknown) Stop: 09/27/22 15:32 (units unknown) (unknown) (unknown) (no date) (unknown) (unknown) Stop: 09/27/22 16:11 (units unknown) (unknown) (unknown) (no date) (unknown) (unknown) Substance Use Type: does not use (units unknown) (unknown) (unknown) (no date) (unknown) (unknown) Surgical History (units unknown) (unknown) (unknown) (no date) (unknown) (unknown) Technique used: traction/counter-tract ion and direct manipulation (units unknown) (unknown) (unknown) (no date) (unknown) (unknown) Temperature 97.8 F 09/27/22 15:00 (units unknown) (unknown) (unknown) (no date) (unknown) (unknown) Temperature 97.8 F (units unknown) (unknown) (unknown) (no date) (unknown) (unknown) Temperature (units unknown) (unknown) (unknown) (no date) (unknown) (unknown) This is a 72-year-ol d female with complaint of left hip pain and a sensation of (units unknown) (unknown) (unknown) (no date) (unknown) (unknown) This is a 72-year-ol d female with history of dyslipidemia, anxiety and left hip (units unknown) (unknown) (unknown) (no date) (unknown) (unknown) Time Out Performed: Yes (units unknown) (unknown) (unknown) (no date) (unknown) (unknown) Time Seen by Provide r: 09/27/22 15:17 (units unknown) (unknown) (unknown) (no date) (unknown) (unknown) Time of Last PO Intake: 12:00 (units unknown) (unknown) (unknown) (no date) (unknown) (unknown) Time out performed: Yes (units unknown) (unknown) (unknown) (no date) (unknown) (unknown) Vital Signs - 8 hr (units unknown) (unknown) (unknown) (no date) (unknown) (unknown) Vital Signs (units unknown) (unknown) (unknown) (no date) (unknown) (unknown) Vital signs: (units unknown) (unknown) (unknown) (no date) (unknown) (unknown) XR hip w pel if done LT 2V Stat (units unknown) (unknown) (unknown) (no date) (unknown) (unknown) Maria Teresa Larsen PA-C [Primary Care Provider] (units unknown) (unknown) (unknown) (no date) (unknown) (unknown) acetaminophen 325 mg Tablet (units unknown) (unknown) (unknown) (no date) (unknown) (unknown) acetaminophen 325 mg tablet 650 mg PO Q6H PRN fever or pain 09/15/22 (units unknown) (unknown) (unknown) (no date) (unknown) (unknown) alcohol intake frequency: holidays/special occasions only (units unknown) (unknown) (unknown) (no date) (unknown) (unknown) alcohol intake: current (units unknown) (unknown) (unknown) (no date) (unknown) (unknown) allergies (units unknown) (unknown) (unknown) (no date) (unknown) (unknown) and below (units unknown) (unknown) (unknown) (no date) (unknown) (unknown) aspirin 81 mg Tablet,Delayed Release (Dr/Ec) (units unknown) (unknown) (unknown) (no date) (unknown) (unknown) aspirin 81 mg tablet,delayed 81 mg PO BID 6 weeks #84 tabs 09/15/22 (units unknown) (unknown) (unknown) (no date) (unknown) (unknown) aspirin-acetaminophe n- caffeine 250 1 - 2 tab PO BID 08/13/22 09/14/22 (units unknown) (unknown) (unknown) (no date) (unknown) (unknown) atorvastatin 20 mg Tablet (units unknown) (unknown) (unknown) (no date) (unknown) (unknown) atorvastatin 20 mg tablet 20 mg PO BEDTIME 08/13/22 09/14/22 (units unknown) (unknown) (unknown) (no date) (unknown) (unknown) bicarbonate 1.1 gram capsule (units unknown) (unknown) (unknown) (no date) (unknown) (unknown) bilaterally with normal sensation throughout the leg. Cap refill less than 2 (units unknown) (unknown) (unknown) (no date) (unknown) (unknown) caps (units unknown) (unknown) (unknown) (no date) (unknown) (unknown) cetirizine 10 mg tablet (Zyrtec) 10 mg PO DAILY PRN Seasonal 08/13/22 09/14/22 (units unknown) (unknown) (unknown) (no date) (unknown) (unknown) cetirizine [Zyrtec] 10 mg Tablet (units unknown) (unknown) (unknown) (no date) (unknown) (unknown) clubbing or edema. Neurovascularly intact (units unknown) (unknown) (unknown) (no date) (unknown) (unknown) dislocated and went back in last week. She was not seen for this. Patient (units unknown) (unknown) (unknown) (no date) (unknown) (unknown) docusate sodium 100 mg Capsule (units unknown) (unknown) (unknown) (no date) (unknown) (unknown) docusate sodium 100 mg capsule 100 mg PO BID PRN constipation #30 09/15/22 (units unknown) (unknown) (unknown) (no date) (unknown) (unknown) escitalopram oxalate 20 mg Tablet (units unknown) (unknown) (unknown) (no date) (unknown) (unknown) escitalopram oxalate 20 mg tablet 20 mg PO DAILY 08/13/22 09/14/22 (units unknown) (unknown) (unknown) (no date) (unknown) (unknown) extremities (units unknown) (unknown) (unknown) (no date) (unknown) (unknown) fentanyl in route which was helpful but has since worn off and she is become (units unknown) (unknown) (unknown) (no date) (unknown) (unknown) follow-up. (units unknown) (unknown) (unknown) (no date) (unknown) (unknown) from hip replacement . Patient is neurovascularly intact. Consultation with (units unknown) (unknown) (unknown) (no date) (unknown) (unknown) from prior surgery films. She feels comfortable with his emptying at this time (units unknown) (unknown) (unknown) (no date) (unknown) (unknown) guarding or rebound, rigidity, no mass (units unknown) (unknown) (unknown) (no date) (unknown) (unknown) has been persistent. She states she had 1 episode where she felt like her hip (units unknown) (unknown) (unknown) (no date) (unknown) (unknown) household members: spouse (units unknown) (unknown) (unknown) (no date) (unknown) (unknown) ibuprofen 400 mg Tablet (units unknown) (unknown) (unknown) (no date) (unknown) (unknown) ibuprofen 400 mg tablet 400 mg PO Q4H PRN 09/15/22 (units unknown) (unknown) (unknown) (no date) (unknown) (unknown) increasingly painful. (units unknown) (unknown) (unknown) (no date) (unknown) (unknown) last meal was at noo n she had water approximately the same time. Patient had (units unknown) (unknown) (unknown) (no date) (unknown) (unknown) mg-250 mg-65 mg tabl et (Excedrin (units unknown) (unknown) (unknown) (no date) (unknown) (unknown) moist mucous membranes (units unknown) (unknown) (unknown) (no date) (unknown) (unknown) omeprazole 20 mg-sodium 1 cap PO DAILY PRN GI Upset 08/13/22 09/14/22 (units unknown) (unknown) (unknown) (no date) (unknown) (unknown) omeprazole-sodium bicarbonate [Zegerid] 20-1.1 mg-gram Capsule (units unknown) (unknown) (unknown) (no date) (unknown) (unknown) or illicit. Dr. Willis River is her orthopedic surgeon. Patient states her (units unknown) (unknown) (unknown) (no date) (unknown) (unknown) oxycodone 5 mg Tablet (units unknown) (unknown) (unknown) (no date) (unknown) (unknown) oxycodone 5 mg table t 5 mg PO Q3H PRN Pain, Moderate 09/15/22 (units unknown) (unknown) (unknown) (no date) (unknown) (unknown) plantar and dorsiflexion of the foot on the left, she has 2+ dorsalis pedis (units unknown) (unknown) (unknown) (no date) (unknown) (unknown) pop. X-ray shows wha t appears to be dislocation. Patient is 2 weeks postop (units unknown) (unknown) (unknown) (no date) (unknown) (unknown) prior knee replacement. Patient states no cardiac history. No tobacco, alcohol (units unknown) (unknown) (unknown) (no date) (unknown) (unknown) recontacted. (units unknown) (unknown) (unknown) (no date) (unknown) (unknown) reduction. Several attempts with longitudinal traction, internal external (units unknown) (unknown) (unknown) (no date) (unknown) (unknown) release (units unknown) (unknown) (unknown) (no date) (unknown) (unknown) replacement on 09/14/2022. Patient states she was seated using the toilet when (units unknown) (unknown) (unknown) (no date) (unknown) (unknown) rotation and 1 attem pt at flexion with traction without any success. Patient (units unknown) (unknown) (unknown) (no date) (unknown) (unknown) sats and required BV M and O2 but still would awakened and resists attempts at (units unknown) (unknown) (unknown) (no date) (unknown) (unknown) seconds bilaterally. Patient is shortened and slightly rotated on exam, no (units unknown) (unknown) (unknown) (no date) (unknown) (unknown) she went to stand up and felt a pop in her left hip and had sudden pain which (units unknown) (unknown) (unknown) (no date) (unknown) (unknown) solifenacin 10 mg tablet (Vesicare) 10 mg PO DAILY 08/13/22 09/14/22 (units unknown) (unknown) (unknown) (no date) (unknown) (unknown) solifenacin [Vesicar e] 10 mg Tablet (units unknown) (unknown) (unknown) (no date) (unknown) (unknown) states her only othe r surgeries have been prior hip replacement 2 weeks ago and (units unknown) (unknown) (unknown) (no date) (unknown) (unknown) states no numbness o r tingling or weakness. She has pain down the leg. Patient (units unknown) (unknown) (unknown) (no date) (unknown) (unknown) supplemental O2 applied, suction/airway equipment at bedside and IV secured (units unknown) (unknown) (unknown) (no date) (unknown) (unknown) was not felt to to b e safe to continue with sedation. Dr. Paulino was (units unknown) (unknown) (unknown) (no date) (unknown) (unknown) we did discuss that sometimes Dr. River prefers he is herself to be reduced. (units unknown) (unknown) Result panel [id number] (unknown) (no date) (unknown) (unknown) (no value) (units unknown) (unknown) (unknown) (no date) (unknown) (unknown) #90 tabs (units unknown) (unknown) (unknown) (no date) (unknown) (unknown) (4-6) #42 tabs (units unknown) (unknown) (unknown) (no date) (unknown) (unknown) (Zegerid) (units unknown) (unknown) (unknown) (no date) (unknown) (unknown) + for hip dislocation. (units unknown) (unknown) (unknown) (no date) (unknown) (unknown) 09/27/22 15:04 (units unknown) (unknown) (unknown) (no date) (unknown) (unknown) 09/27/22 15:45 (units unknown) (unknown) (unknown) (no date) (unknown) (unknown) 09/27/22 16:35 (units unknown) (unknown) (unknown) (no date) (unknown) (unknown) 09/27/22 Range/Units (units unknown) (unknown) (unknown) (no date) (unknown) (unknown) 09/27/22 (units unknown) (unknown) (unknown) (no date) (unknown) (unknown) 0RF (units unknown) (unknown) (unknown) (no date) (unknown) (unknown) 1 - 2 tab PO BID (units unknown) (unknown) (unknown) (no date) (unknown) (unknown) 1 cap PO DAILY PRN (Reason: GI Upset) (units unknown) (unknown) (unknown) (no date) (unknown) (unknown) 10 mg PO DAILY PRN (Reason: Seasonal allergies) (units unknown) (unknown) (unknown) (no date) (unknown) (unknown) 10 mg PO DAILY (units unknown) (unknown) (unknown) (no date) (unknown) (unknown) 100 mg PO BID PRN (Reason: constipation) Qty: 30 0RF (units unknown) (unknown) (unknown) (no date) (unknown) (unknown) 15:00 09/27/22 (units unknown) (unknown) (unknown) (no date) (unknown) (unknown) 15:39 09/27/22 (units unknown) (unknown) (unknown) (no date) (unknown) (unknown) 15:45 (units unknown) (unknown) (unknown) (no date) (unknown) (unknown) 15:56 09/27/22 (units unknown) (unknown) (unknown) (no date) (unknown) (unknown) 15:56 (units unknown) (unknown) (unknown) (no date) (unknown) (unknown) 16:00 04/20/23 (units unknown) (unknown) (unknown) (no date) (unknown) (unknown) 16:01 09/27/22 (units unknown) (unknown) (unknown) (no date) (unknown) (unknown) 16:01 (units unknown) (unknown) (unknown) (no date) (unknown) (unknown) 16:38 (units unknown) (unknown) (unknown) (no date) (unknown) (unknown) 20 mg PO BEDTIME (units unknown) (unknown) (unknown) (no date) (unknown) (unknown) 20 mg PO DAILY (units unknown) (unknown) (unknown) (no date) (unknown) (unknown) 3151 (units unknown) (unknown) (unknown) (no date) (unknown) (unknown) 400 mg PO Q4H MDD Ma x 2400 mg per day PRN (Reason: Pain/inflammation) Qty: 90 (units unknown) (unknown) (unknown) (no date) (unknown) (unknown) 5 mg PO Q3H PRN (Reason: Pain, Moderate (4-6)) Qty: 42 0RF (units unknown) (unknown) (unknown) (no date) (unknown) (unknown) 650 mg PO Q6H MDD Ma x 3000 mg per day PRN (Reason: fever or pain) Qty: 90 0RF (units unknown) (unknown) (unknown) (no date) (unknown) (unknown) 81 mg PO BID 42 Days Qty: 84 0RF (units unknown) (unknown) (unknown) (no date) (unknown) (unknown) ABDOMEN: Soft, nontender. Normoactive bowel sounds all 4 quadrants. No (units unknown) (unknown) (unknown) (no date) (unknown) (unknown) ASA Class: II (units unknown) (unknown) (unknown) (no date) (unknown) (unknown) Age/Sex: 72 / F (units unknown) (unknown) (unknown) (no date) (unknown) (unknown) Allergies (units unknown) (unknown) (unknown) (no date) (unknown) (unknown) Allergy/AdvReac Type Severity Reaction Status Date / Time (units unknown) (unknown) (unknown) (no date) (unknown) (unknown) Attempted procedural sedation with left hip reduction after discussion with (units unknown) (unknown) (unknown) (no date) (unknown) (unknown) Blood Pressure 153/7 2 H 09/27/22 15:00 (units unknown) (unknown) (unknown) (no date) (unknown) (unknown) Blood Pressure 153/7 2 H (units unknown) (unknown) (unknown) (no date) (unknown) (unknown) Blood Pressure 154/7 9 H (units unknown) (unknown) (unknown) (no date) (unknown) (unknown) Blood Pressure 160/9 9 H (units unknown) (unknown) (unknown) (no date) (unknown) (unknown) CARDIOVASCULAR: Regular rate and rhythm without murmurs, rubs or gallops. (units unknown) (unknown) (unknown) (no date) (unknown) (unknown) COVID19 -Nasal RAPID Stat (units unknown) (unknown) (unknown) (no date) (unknown) (unknown) Chief complaint: Extremity Problem,Nontraumatic (units unknown) (unknown) (unknown) (no date) (unknown) (unknown) Clinical Impression: (units unknown) (unknown) (unknown) (no date) (unknown) (unknown) Complications: hypoventilation (hypoxia) (units unknown) (unknown) (unknown) (no date) (unknown) (unknown) Consent signed: Yes (units unknown) (unknown) (unknown) (no date) (unknown) (unknown) Course (units unknown) (unknown) (unknown) (no date) (unknown) (unknown) Covid swab is negative. (units unknown) (unknown) (unknown) (no date) (unknown) (unknown) : 1950 Acct:[id number] (units unknown) (unknown) (unknown) (no date) (unknown) (unknown) Date of Service: 09/27/22 (units unknown) (unknown) (unknown) (no date) (unknown) (unknown) Departure (units unknown) (unknown) (unknown) (no date) (unknown) (unknown) Depression (units unknown) (unknown) (unknown) (no date) (unknown) (unknown) Discharge Plan (units unknown) (unknown) (unknown) (no date) (unknown) (unknown) Discontinued Medications (units unknown) (unknown) (unknown) (no date) (unknown) (unknown) Dislocation, hip closed (units unknown) (unknown) (unknown) (no date) (unknown) (unknown) Diverticulitis (units unknown) (unknown) (unknown) (no date) (unknown) (unknown) ED Orders (units unknown) (unknown) (unknown) (no date) (unknown) (unknown) ED Sedation Level: Moderate (Concious) (units unknown) (unknown) (unknown) (no date) (unknown) (unknown) ER Physician: Galina Thapa D.O. (units unknown) (unknown) (unknown) (no date) (unknown) (unknown) EXTREMITIES: Decreas ed range of motion of the left hip, patient has good (units unknown) (unknown) (unknown) (no date) (unknown) (unknown) Emergency Report (units unknown) (unknown) (unknown) (no date) (unknown) (unknown) Exam Narrative: (units unknown) (unknown) (unknown) (no date) (unknown) (unknown) Exam (units unknown) (unknown) (unknown) (no date) (unknown) (unknown) Excedrin Extra Strength 250-250-65 mg Tablet (units unknown) (unknown) (unknown) (no date) (unknown) (unknown) Extra Strength) (units unknown) (unknown) (unknown) (no date) (unknown) (unknown) Extremity x-ray #1: (units unknown) (unknown) (unknown) (no date) (unknown) (unknown) GENERAL: Alert and oriented x three, elderly female in moderate distress. (units unknown) (unknown) (unknown) (no date) (unknown) (unknown) GERD (gastroesophage al reflux disease) (units unknown) (unknown) (unknown) (no date) (unknown) (unknown) : No CVA tenderness (units unknown) (unknown) (unknown) (no date) (unknown) (unknown) General (units unknown) (unknown) (unknown) (no date) (unknown) (unknown) HEENT: Head normocephalic, atraumatic, EOMI, pupils reactive, face symmetric, (units unknown) (unknown) (unknown) (no date) (unknown) (unknown) HLD (hyperlipidemia) (units unknown) (unknown) (unknown) (no date) (unknown) (unknown) HPI - Extremity Problem (units unknown) (unknown) (unknown) (no date) (unknown) (unknown) HPI Narrative: (units unknown) (unknown) (unknown) (no date) (unknown) (unknown) Hearing impaired (units unknown) (unknown) (unknown) (no date) (unknown) (unknown) History of Present Illness (units unknown) (unknown) (unknown) (no date) (unknown) (unknown) History of bladder surgery (units unknown) (unknown) (unknown) (no date) (unknown) (unknown) History of total lef t knee replacement (units unknown) (unknown) (unknown) (no date) (unknown) (unknown) History of total rig ht knee replacement (units unknown) (unknown) (unknown) (no date) (unknown) (unknown) Home Medications (units unknown) (unknown) (unknown) (no date) (unknown) (unknown) Hx of left breast biopsy (units unknown) (unknown) (unknown) (no date) (unknown) (unknown) Hx of right breast biopsy (units unknown) (unknown) (unknown) (no date) (unknown) (unknown) Hx of tonsillectomy (units unknown) (unknown) (unknown) (no date) (unknown) (unknown) Hydromorphone HCl (Hydromorphone 1 Mg Inj) 1 mg IV Q3H PRN (units unknown) (unknown) (unknown) (no date) (unknown) (unknown) IV Propofol dose (mg ): 150 (units unknown) (unknown) (unknown) (no date) (unknown) (unknown) If unsuccessful to call back if successful knee immobilizer ambulation trial and (units unknown) (unknown) (unknown) (no date) (unknown) (unknown) Imaging Data (units unknown) (unknown) (unknown) (no date) (unknown) (unknown) Indication: fracture/dislocation reduction (units unknown) (unknown) (unknown) (no date) (unknown) (unknown) Initial Vital Signs (units unknown) (unknown) (unknown) (no date) (unknown) (unknown) Initial Vital Signs: (units unknown) (unknown) (unknown) (no date) (unknown) (unknown) Interventions: Airwa y repositioned, Assist by BVM and Oxygen applied (units unknown) (unknown) (unknown) (no date) (unknown) (unknown) [address] [address] (units unknown) (unknown) (unknown) (no date) (unknown) (unknown) Joint #1: (units unknown) (unknown) (unknown) (no date) (unknown) (unknown) Joint Reduction Location: hip (units unknown) (unknown) (unknown) (no date) (unknown) (unknown) Lab Data (units unknown) (unknown) (unknown) (no date) (unknown) (unknown) Lab Results (units unknown) (unknown) (unknown) (no date) (unknown) (unknown) Labs: (units unknown) (unknown) (unknown) (no date) (unknown) (unknown) Last Admin: 09/27/22 15:41 Dose: 4 mg (units unknown) (unknown) (unknown) (no date) (unknown) (unknown) MDM - Extremity (Nontraumatic) (units unknown) (unknown) (unknown) (no date) (unknown) (unknown) MDM Narrative (units unknown) (unknown) (unknown) (no date) (unknown) (unknown) Mallampati Airway Classification: Class II (units unknown) (unknown) (unknown) (no date) (unknown) (unknown) Medical History (units unknown) (unknown) (unknown) (no date) (unknown) (unknown) Medical decision making narrative: (units unknown) (unknown) (unknown) (no date) (unknown) (unknown) Medication Instructions Recorded Confirmed (units unknown) (unknown) (unknown) (no date) (unknown) (unknown) Medication Instructions Recorded (units unknown) (unknown) (unknown) (no date) (unknown) (unknown) Mode of arrival: EMS (units unknown) (unknown) (unknown) (no date) (unknown) (unknown) Morphine Sulfate (Morphine 4 Mg/Ml Inj) 4 mg IV NOW ONE (units unknown) (unknown) (unknown) (no date) (unknown) (unknown) My Impression: (units unknown) (unknown) (unknown) (no date) (unknown) (unknown) NECK: Supple, full range of motion (units unknown) (unknown) (unknown) (no date) (unknown) (unknown) NEUROLOGICAL: Crania l nerves II through XII grossly intact. Moving all (units unknown) (unknown) (unknown) (no date) (unknown) (unknown) Narrative (units unknown) (unknown) (unknown) (no date) (unknown) (unknown) No Action (units unknown) (unknown) (unknown) (no date) (unknown) (unknown) No Known Drug Allergies Allergy Verified 08/13/22 11:07 (units unknown) (unknown) (unknown) (no date) (unknown) (unknown) Ondansetron HCl (Ondansetron 4 Mg/2 Ml Inj) 4 mg IV Q6HR PRN (units unknown) (unknown) (unknown) (no date) (unknown) (unknown) Ordered: (units unknown) (unknown) (unknown) (no date) (unknown) (unknown) Orders (units unknown) (unknown) (unknown) (no date) (unknown) (unknown) Orthopedic Joint Reduction (units unknown) (unknown) (unknown) (no date) (unknown) (unknown) Orthopedic surgery, Dr. Paulino. Discussed patient is just under 2 weeks out (units unknown) (unknown) (unknown) (no date) (unknown) (unknown) Orthopedic surgery. Patient was very difficult to sedate but would drop her O2 (units unknown) (unknown) (unknown) (no date) (unknown) (unknown) Osteoarthritis (units unknown) (unknown) (unknown) (no date) (unknown) (unknown) Oxygen Delivery Meth od Room Air 09/27/22 15:00 (units unknown) (unknown) (unknown) (no date) (unknown) (unknown) Oxygen Delivery Meth od Room Air (units unknown) (unknown) (unknown) (no date) (unknown) (unknown) Oxygen Delivery Method (units unknown) (unknown) (unknown) (no date) (unknown) (unknown) PRN Reason: Nausea A nd Vomiting (units unknown) (unknown) (unknown) (no date) (unknown) (unknown) PRN Reason: Pain, Moderate (4-6) (units unknown) (unknown) (unknown) (no date) (unknown) (unknown) Pain/inflammation #9 0 tabs (units unknown) (unknown) (unknown) (no date) (unknown) (unknown) Patient Disposition: Admitted as Observation (units unknown) (unknown) (unknown) (no date) (unknown) (unknown) Patient History (units unknown) (unknown) (unknown) (no date) (unknown) (unknown) Patient Tolerated Procedure: Well and No complications (units unknown) (unknown) (unknown) (no date) (unknown) (unknown) Patient: Barbara Garcia MR#: [id number] (units unknown) (unknown) (unknown) (no date) (unknown) (unknown) Point of Care Testing (units unknown) (unknown) (unknown) (no date) (unknown) (unknown) Post Reduction X-Ray Obtained: Yes (units unknown) (unknown) (unknown) (no date) (unknown) (unknown) Post Reduction X-Ray Results: not reduced (units unknown) (unknown) (unknown) (no date) (unknown) (unknown) Post-reduction neuro exam: intact and no change (units unknown) (unknown) (unknown) (no date) (unknown) (unknown) Post-reduction vascular: intact and no change (units unknown) (unknown) (unknown) (no date) (unknown) (unknown) Test Resul ts Negative (units unknown) (unknown) (unknown) (no date) (unknown) (unknown) Preparation: rn cardiac cath applied, pulse oximeter, capnometry used, (units unknown) (unknown) (unknown) (no date) (unknown) (unknown) Prescriptions: (units unknown) (unknown) (unknown) (no date) (unknown) (unknown) Prevent blood clots (units unknown) (unknown) (unknown) (no date) (unknown) (unknown) Previous Rx's (units unknown) (unknown) (unknown) (no date) (unknown) (unknown) Procedural Sedation (units unknown) (unknown) (unknown) (no date) (unknown) (unknown) Procedures (units unknown) (unknown) (unknown) (no date) (unknown) (unknown) Propofol (Propofol 2 00 Mg/20 Ml Vial) 100 mg IV NOW ONE (units unknown) (unknown) (unknown) (no date) (unknown) (unknown) Pulse Oximetry 95 09/27/22 15:00 (units unknown) (unknown) (unknown) (no date) (unknown) (unknown) Pulse Oximetry 95 99 99 (units unknown) (unknown) (unknown) (no date) (unknown) (unknown) Pulse Oximetry 99 99 (units unknown) (unknown) (unknown) (no date) (unknown) (unknown) Pulse Oximetry (units unknown) (unknown) (unknown) (no date) (unknown) (unknown) Pulse Rate 61 15:00 (units unknown) (unknown) (unknown) (no date) (unknown) (unknown) Pulse Rate 61 62 64 (units unknown) (unknown) (unknown) (no date) (unknown) (unknown) Pulse Rate 67 69 (units unknown) (unknown) (unknown) (no date) (unknown) (unknown) Pulse Rate 74 (units unknown) (unknown) (unknown) (no date) (unknown) (unknown) RESPIRATORY: Breath sounds equal bilaterally, no wheezes rales or rhonchi. (units unknown) (unknown) (unknown) (no date) (unknown) (unknown) ROS Unobtainable: Al l systems reviewed + are unremarkable except as noted in HPI (units unknown) (unknown) (unknown) (no date) (unknown) (unknown) Referrals: (units unknown) (unknown) (unknown) (no date) (unknown) (unknown) Related Data (units unknown) (unknown) (unknown) (no date) (unknown) (unknown) Respiratory Rate 16 09/27/22 15:00 (units unknown) (unknown) (unknown) (no date) (unknown) (unknown) Respiratory Rate 16 (units unknown) (unknown) (unknown) (no date) (unknown) (unknown) Respiratory Rate 28 H (units unknown) (unknown) (unknown) (no date) (unknown) (unknown) Respiratory Rate (units unknown) (unknown) (unknown) (no date) (unknown) (unknown) Review of Systems (units unknown) (unknown) (unknown) (no date) (unknown) (unknown) Rx Instructions: (units unknown) (unknown) (unknown) (no date) (unknown) (unknown) SARS-CoV-2 (PCR) Negative (Negative) (units unknown) (unknown) (unknown) (no date) (unknown) (unknown) SKIN: Warm, dry, no petechiae, no rashes or lesions. (units unknown) (unknown) (unknown) (no date) (unknown) (unknown) Seasonal allergies (units unknown) (unknown) (unknown) (no date) (unknown) (unknown) She recommends longitudinal traction with little bit anterior, extended knee. (units unknown) (unknown) (unknown) (no date) (unknown) (unknown) Side: left (units unknown) (unknown) (unknown) (no date) (unknown) (unknown) Signed By: (units unknown) (unknown) (unknown) (no date) (unknown) (unknown) Smoking Status: Carmencita rubin smoker (units unknown) (unknown) (unknown) (no date) (unknown) (unknown) Social History (units unknown) (unknown) (unknown) (no date) (unknown) (unknown) Sodium Chloride (Normal Saline 0.9%) 1,000 mls @ 100 mls/hr IV CONT MINDI (units unknown) (unknown) (unknown) (no date) (unknown) (unknown) Source: patient and EMS (units unknown) (unknown) (unknown) (no date) (unknown) (unknown) Stated complaint: Lt Hip Pain (units unknown) (unknown) (unknown) (no date) (unknown) (unknown) Stop: 09/27/22 15:32 (units unknown) (unknown) (unknown) (no date) (unknown) (unknown) Stop: 09/27/22 16:11 (units unknown) (unknown) (unknown) (no date) (unknown) (unknown) Substance Use Type: does not use (units unknown) (unknown) (unknown) (no date) (unknown) (unknown) Surgical History (units unknown) (unknown) (unknown) (no date) (unknown) (unknown) Technique used: traction/counter-tract ion and direct manipulation (units unknown) (unknown) (unknown) (no date) (unknown) (unknown) Temperature 97.8 F 09/27/22 15:00 (units unknown) (unknown) (unknown) (no date) (unknown) (unknown) Temperature 97.8 F (units unknown) (unknown) (unknown) (no date) (unknown) (unknown) Temperature (units unknown) (unknown) (unknown) (no date) (unknown) (unknown) This is a 72-year-ol d female with complaint of left hip pain and a sensation of (units unknown) (unknown) (unknown) (no date) (unknown) (unknown) This is a 72-year-ol d female with history of dyslipidemia, anxiety and left hip (units unknown) (unknown) (unknown) (no date) (unknown) (unknown) Time Out Performed: Yes (units unknown) (unknown) (unknown) (no date) (unknown) (unknown) Time Seen by Provide r: 09/27/22 15:17 (units unknown) (unknown) (unknown) (no date) (unknown) (unknown) Time of Last PO Intake: 12:00 (units unknown) (unknown) (unknown) (no date) (unknown) (unknown) Time out performed: Yes (units unknown) (unknown) (unknown) (no date) (unknown) (unknown) Vital Signs - 8 hr (units unknown) (unknown) (unknown) (no date) (unknown) (unknown) Vital Signs (units unknown) (unknown) (unknown) (no date) (unknown) (unknown) Vital signs: (units unknown) (unknown) (unknown) (no date) (unknown) (unknown) XR hip w pel if done LT 2V Stat (units unknown) (unknown) (unknown) (no date) (unknown) (unknown) Maria Teresa Larsen PA-C [Primary Care Provider] (units unknown) (unknown) (unknown) (no date) (unknown) (unknown) acetaminophen 325 mg Tablet (units unknown) (unknown) (unknown) (no date) (unknown) (unknown) acetaminophen 325 mg tablet 650 mg PO Q6H PRN fever or pain 09/15/22 (units unknown) (unknown) (unknown) (no date) (unknown) (unknown) alcohol intake frequency: holidays/special occasions only (units unknown) (unknown) (unknown) (no date) (unknown) (unknown) alcohol intake: current (units unknown) (unknown) (unknown) (no date) (unknown) (unknown) allergies (units unknown) (unknown) (unknown) (no date) (unknown) (unknown) and below (units unknown) (unknown) (unknown) (no date) (unknown) (unknown) aspirin 81 mg Tablet,Delayed Release (Dr/Ec) (units unknown) (unknown) (unknown) (no date) (unknown) (unknown) aspirin 81 mg tablet,delayed 81 mg PO BID 6 weeks #84 tabs 09/15/22 (units unknown) (unknown) (unknown) (no date) (unknown) (unknown) aspirin-acetaminophe n- caffeine 250 1 - 2 tab PO BID 08/13/22 09/14/22 (units unknown) (unknown) (unknown) (no date) (unknown) (unknown) atorvastatin 20 mg Tablet (units unknown) (unknown) (unknown) (no date) (unknown) (unknown) atorvastatin 20 mg tablet 20 mg PO BEDTIME 08/13/22 09/14/22 (units unknown) (unknown) (unknown) (no date) (unknown) (unknown) bicarbonate 1.1 gram capsule (units unknown) (unknown) (unknown) (no date) (unknown) (unknown) bilaterally with normal sensation throughout the leg. Cap refill less than 2 (units unknown) (unknown) (unknown) (no date) (unknown) (unknown) caps (units unknown) (unknown) (unknown) (no date) (unknown) (unknown) cetirizine 10 mg tablet (Zyrtec) 10 mg PO DAILY PRN Seasonal 08/13/22 09/14/22 (units unknown) (unknown) (unknown) (no date) (unknown) (unknown) cetirizine [Zyrtec] 10 mg Tablet (units unknown) (unknown) (unknown) (no date) (unknown) (unknown) clubbing or edema. Neurovascularly intact (units unknown) (unknown) (unknown) (no date) (unknown) (unknown) dislocated and went back in last week. She was not seen for this. Patient (units unknown) (unknown) (unknown) (no date) (unknown) (unknown) docusate sodium 100 mg Capsule (units unknown) (unknown) (unknown) (no date) (unknown) (unknown) docusate sodium 100 mg capsule 100 mg PO BID PRN constipation #30 09/15/22 (units unknown) (unknown) (unknown) (no date) (unknown) (unknown) escitalopram oxalate 20 mg Tablet (units unknown) (unknown) (unknown) (no date) (unknown) (unknown) escitalopram oxalate 20 mg tablet 20 mg PO DAILY 08/13/22 09/14/22 (units unknown) (unknown) (unknown) (no date) (unknown) (unknown) extremities (units unknown) (unknown) (unknown) (no date) (unknown) (unknown) fentanyl in route which was helpful but has since worn off and she is become (units unknown) (unknown) (unknown) (no date) (unknown) (unknown) follow-up. (units unknown) (unknown) (unknown) (no date) (unknown) (unknown) from prior surgery films. She feels comfortable with his emptying at this time (units unknown) (unknown) (unknown) (no date) (unknown) (unknown) guarding or rebound, rigidity, no mass (units unknown) (unknown) (unknown) (no date) (unknown) (unknown) has been persistent. She states she had 1 episode where she felt like her hip (units unknown) (unknown) (unknown) (no date) (unknown) (unknown) household members: spouse (units unknown) (unknown) (unknown) (no date) (unknown) (unknown) ibuprofen 400 mg Tablet (units unknown) (unknown) (unknown) (no date) (unknown) (unknown) ibuprofen 400 mg tablet 400 mg PO Q4H PRN 09/15/22 (units unknown) (unknown) (unknown) (no date) (unknown) (unknown) increasingly painful. (units unknown) (unknown) (unknown) (no date) (unknown) (unknown) last meal was at noo n she had water approximately the same time. Patient had (units unknown) (unknown) (unknown) (no date) (unknown) (unknown) mg-250 mg-65 mg tabl et (Excedrin (units unknown) (unknown) (unknown) (no date) (unknown) (unknown) moist mucous membranes (units unknown) (unknown) (unknown) (no date) (unknown) (unknown) omeprazole 20 mg-sodium 1 cap PO DAILY PRN GI Upset 08/13/22 09/14/22 (units unknown) (unknown) (unknown) (no date) (unknown) (unknown) omeprazole-sodium bicarbonate [Zegerid] 20-1.1 mg-gram Capsule (units unknown) (unknown) (unknown) (no date) (unknown) (unknown) or illicit. Dr. Willis River is her orthopedic surgeon. Patient states her (units unknown) (unknown) (unknown) (no date) (unknown) (unknown) oxycodone 5 mg Tablet (units unknown) (unknown) (unknown) (no date) (unknown) (unknown) oxycodone 5 mg table t 5 mg PO Q3H PRN Pain, Moderate 09/15/22 (units unknown) (unknown) (unknown) (no date) (unknown) (unknown) plantar and dorsiflexion of the foot on the left, she has 2+ dorsalis pedis (units unknown) (unknown) (unknown) (no date) (unknown) (unknown) pop. X-ray shows wha t appears to be dislocation. Patient is 2 weeks postop f (units unknown) (unknown) (unknown) (no date) (unknown) (unknown) prior knee replacement. Patient states no cardiac history. No tobacco, alcohol (units unknown) (unknown) (unknown) (no date) (unknown) (unknown) recontacted plan for possible OR for reduction for ER. Placed in observation. (units unknown) (unknown) (unknown) (no date) (unknown) (unknown) reduction. Several attempts with longitudinal traction, internal external (units unknown) (unknown) (unknown) (no date) (unknown) (unknown) release (units unknown) (unknown) (unknown) (no date) (unknown) (unknown) replacement on 09/14/2022. Patient states she was seated using the toilet when (units unknown) (unknown) (unknown) (no date) (unknown) (unknown) rom hip replacement. Patient is neurovascularly intact. Consultation with (units unknown) (unknown) (unknown) (no date) (unknown) (unknown) rotation and 1 attem pt at flexion with traction without any success. Patient (units unknown) (unknown) (unknown) (no date) (unknown) (unknown) sats and required BV M and O2 but still would awakened and resists attempts at (units unknown) (unknown) (unknown) (no date) (unknown) (unknown) seconds bilaterally. Patient is shortened and slightly rotated on exam, no (units unknown) (unknown) (unknown) (no date) (unknown) (unknown) she went to stand up and felt a pop in her left hip and had sudden pain which (units unknown) (unknown) (unknown) (no date) (unknown) (unknown) solifenacin 10 mg tablet (Vesicare) 10 mg PO DAILY 08/13/22 09/14/22 (units unknown) (unknown) (unknown) (no date) (unknown) (unknown) solifenacin [Vesicar e] 10 mg Tablet (units unknown) (unknown) (unknown) (no date) (unknown) (unknown) states her only othe r surgeries have been prior hip replacement 2 weeks ago and (units unknown) (unknown) (unknown) (no date) (unknown) (unknown) states no numbness o r tingling or weakness. She has pain down the leg. Patient (units unknown) (unknown) (unknown) (no date) (unknown) (unknown) supplemental O2 applied, suction/airway equipment at bedside and IV secured (units unknown) (unknown) (unknown) (no date) (unknown) (unknown) was not felt to to b e safe to continue with sedation. Dr. Paulino was (units unknown) (unknown) (unknown) (no date) (unknown) (unknown) we did discuss that sometimes Dr. River prefers he is herself to be reduced. (units unknown) (unknown) Result panel [id number] (unknown) (no date) (unknown) (unknown) (no value) (units unknown) (unknown) (unknown) (no date) (unknown) (unknown) #90 tabs (units unknown) (unknown) (unknown) (no date) (unknown) (unknown) (Zegerid) (units unknown) (unknown) (unknown) (no date) (unknown) (unknown) (past 8 hours): (units unknown) (unknown) (unknown) (no date) (unknown) (unknown) 09/27/22 Rx (units unknown) (unknown) (unknown) (no date) (unknown) (unknown) 09/27/22 (units unknown) (unknown) (unknown) (no date) (unknown) (unknown) 15:00 09/27/22 (units unknown) (unknown) (unknown) (no date) (unknown) (unknown) 15:39 09/27/22 (units unknown) (unknown) (unknown) (no date) (unknown) (unknown) 15:45 (units unknown) (unknown) (unknown) (no date) (unknown) (unknown) 15:56 09/27/22 (units unknown) (unknown) (unknown) (no date) (unknown) (unknown) 15:56 (units unknown) (unknown) (unknown) (no date) (unknown) (unknown) 16:00 09/27/22 (units unknown) (unknown) (unknown) (no date) (unknown) (unknown) 16:01 09/27/22 (units unknown) (unknown) (unknown) (no date) (unknown) (unknown) 16:01 (units unknown) (unknown) (unknown) (no date) (unknown) (unknown) 16:21 09/27/22 (units unknown) (unknown) (unknown) (no date) (unknown) (unknown) 16:21 (units unknown) (unknown) (unknown) (no date) (unknown) (unknown) 16:26 09/27/22 (units unknown) (unknown) (unknown) (no date) (unknown) (unknown) 16:26 (units unknown) (unknown) (unknown) (no date) (unknown) (unknown) 16:30 09/27/22 (units unknown) (unknown) (unknown) (no date) (unknown) (unknown) 16:32 09/27/22 (units unknown) (unknown) (unknown) (no date) (unknown) (unknown) 16:32 (units unknown) (unknown) (unknown) (no date) (unknown) (unknown) 16:35 09/27/22 (units unknown) (unknown) (unknown) (no date) (unknown) (unknown) 16:38 09/27/22 (units unknown) (unknown) (unknown) (no date) (unknown) (unknown) 16:40 09/27/22 (units unknown) (unknown) (unknown) (no date) (unknown) (unknown) 16:40 (units unknown) (unknown) (unknown) (no date) (unknown) (unknown) 16:45 09/27/22 (units unknown) (unknown) (unknown) (no date) (unknown) (unknown) 16:45 (units unknown) (unknown) (unknown) (no date) (unknown) (unknown) 16:50 09/27/22 (units unknown) (unknown) (unknown) (no date) (unknown) (unknown) 16:55 09/27/22 (units unknown) (unknown) (unknown) (no date) (unknown) (unknown) 16:55 (units unknown) (unknown) (unknown) (no date) (unknown) (unknown) 17:00 09/27/22 (units unknown) (unknown) (unknown) (no date) (unknown) (unknown) 17:00 (units unknown) (unknown) (unknown) (no date) (unknown) (unknown) 17:05 09/27/22 (units unknown) (unknown) (unknown) (no date) (unknown) (unknown) 17:10 09/27/22 (units unknown) (unknown) (unknown) (no date) (unknown) (unknown) 17:10 (units unknown) (unknown) (unknown) (no date) (unknown) (unknown) 17:15 09/27/22 (units unknown) (unknown) (unknown) (no date) (unknown) (unknown) 17:15 (units unknown) (unknown) (unknown) (no date) (unknown) (unknown) 17:20 09/27/22 (units unknown) (unknown) (unknown) (no date) (unknown) (unknown) 17:26 09/27/22 (units unknown) (unknown) (unknown) (no date) (unknown) (unknown) 17:26 (units unknown) (unknown) (unknown) (no date) (unknown) (unknown) 17:30 09/27/22 (units unknown) (unknown) (unknown) (no date) (unknown) (unknown) 17:30 (units unknown) (unknown) (unknown) (no date) (unknown) (unknown) 17:35 09/27/22 (units unknown) (unknown) (unknown) (no date) (unknown) (unknown) 17:39 (units unknown) (unknown) (unknown) (no date) (unknown) (unknown) 17:40 09/27/22 (units unknown) (unknown) (unknown) (no date) (unknown) (unknown) 18:21 (units unknown) (unknown) (unknown) (no date) (unknown) (unknown) 3151 (units unknown) (unknown) (unknown) (no date) (unknown) (unknown) Age/Sex: 72 / F (units unknown) (unknown) (unknown) (no date) (unknown) (unknown) Allergies (units unknown) (unknown) (unknown) (no date) (unknown) (unknown) Allergy/AdvReac Type Severity Reaction Status Date / Time (units unknown) (unknown) (unknown) (no date) (unknown) (unknown) Bilateral extremitie s moving without limitation (units unknown) (unknown) (unknown) (no date) (unknown) (unknown) Blood Pressure 131/65 (units unknown) (unknown) (unknown) (no date) (unknown) (unknown) Blood Pressure 138/7 0 158/81 H (units unknown) (unknown) (unknown) (no date) (unknown) (unknown) Blood Pressure 142/7 5 H (units unknown) (unknown) (unknown) (no date) (unknown) (unknown) Blood Pressure 153/7 2 H (units unknown) (unknown) (unknown) (no date) (unknown) (unknown) Blood Pressure 153/8 1 H (units unknown) (unknown) (unknown) (no date) (unknown) (unknown) Blood Pressure 154/7 9 H (units unknown) (unknown) (unknown) (no date) (unknown) (unknown) Blood Pressure 155/8 2 H 157/84 H (units unknown) (unknown) (unknown) (no date) (unknown) (unknown) Blood Pressure 156/7 9 H 146/76 H (units unknown) (unknown) (unknown) (no date) (unknown) (unknown) Blood Pressure 159/7 5 H (units unknown) (unknown) (unknown) (no date) (unknown) (unknown) Blood Pressure 159/7 9 H (units unknown) (unknown) (unknown) (no date) (unknown) (unknown) Blood Pressure 160/9 9 H 152/68 H (units unknown) (unknown) (unknown) (no date) (unknown) (unknown) Blood Pressure 166/9 3 H (units unknown) (unknown) (unknown) (no date) (unknown) (unknown) Blood Pressure 167/9 4 H (units unknown) (unknown) (unknown) (no date) (unknown) (unknown) Blood Pressure 168/8 4 H (units unknown) (unknown) (unknown) (no date) (unknown) (unknown) Blood Pressure 174/8 2 H 165/72 H (units unknown) (unknown) (unknown) (no date) (unknown) (unknown) Blood Pressure 197/8 4 H (units unknown) (unknown) (unknown) (no date) (unknown) (unknown) Chief complaint: Lt Hip Pain (units unknown) (unknown) (unknown) (no date) (unknown) (unknown) : 1950 Acct:[id number] (units unknown) (unknown) (unknown) (no date) (unknown) (unknown) Date Patient Seen: 09/27/22 (units unknown) (unknown) (unknown) (no date) (unknown) (unknown) Date of Onset of Symptoms: 09/27/22 (units unknown) (unknown) (unknown) (no date) (unknown) (unknown) Date of Service: 09/27/22 (units unknown) (unknown) (unknown) (no date) (unknown) (unknown) Deep Vein Thrombosis/Pulmonary Embolism Present on Admission: No (units unknown) (unknown) (unknown) (no date) (unknown) (unknown) Depression (units unknown) (unknown) (unknown) (no date) (unknown) (unknown) Diverticulitis (units unknown) (unknown) (unknown) (no date) (unknown) (unknown) Exam Narrative: (units unknown) (unknown) (unknown) (no date) (unknown) (unknown) Exam (units unknown) (unknown) (unknown) (no date) (unknown) (unknown) Extra Strength) (units unknown) (unknown) (unknown) (no date) (unknown) (unknown) GERD (gastroesophage al reflux disease) (units unknown) (unknown) (unknown) (no date) (unknown) (unknown) General exam alert a nd oriented female in no acute distress (units unknown) (unknown) (unknown) (no date) (unknown) (unknown) HEENT normocephalic atraumatic (units unknown) (unknown) (unknown) (no date) (unknown) (unknown) HLD (hyperlipidemia) (units unknown) (unknown) (unknown) (no date) (unknown) (unknown) Hearing impaired (units unknown) (unknown) (unknown) (no date) (unknown) (unknown) Heart regular rate a nd rhythm (units unknown) (unknown) (unknown) (no date) (unknown) (unknown) History + Physical Report (units unknown) (unknown) (unknown) (no date) (unknown) (unknown) History of Present Illness (units unknown) (unknown) (unknown) (no date) (unknown) (unknown) History of bladder surgery (units unknown) (unknown) (unknown) (no date) (unknown) (unknown) History of total lef t knee replacement (units unknown) (unknown) (unknown) (no date) (unknown) (unknown) History of total rig ht knee replacement (units unknown) (unknown) (unknown) (no date) (unknown) (unknown) History (units unknown) (unknown) (unknown) (no date) (unknown) (unknown) Home Medications and Allergies (units unknown) (unknown) (unknown) (no date) (unknown) (unknown) Home Medications (units unknown) (unknown) (unknown) (no date) (unknown) (unknown) Hx of left breast biopsy (units unknown) (unknown) (unknown) (no date) (unknown) (unknown) Hx of right breast biopsy (units unknown) (unknown) (unknown) (no date) (unknown) (unknown) Hx of tonsillectomy (units unknown) (unknown) (unknown) (no date) (unknown) (unknown) Incision healed (units unknown) (unknown) (unknown) (no date) (unknown) (unknown) [address] [address] (units unknown) (unknown) (unknown) (no date) (unknown) (unknown) Laboratory Results - last 24 hr (units unknown) (unknown) (unknown) (no date) (unknown) (unknown) Labs (units unknown) (unknown) (unknown) (no date) (unknown) (unknown) Labs: (units unknown) (unknown) (unknown) (no date) (unknown) (unknown) Left lower extremity limited range of motion secondary to pain---Decreased range (units unknown) (unknown) (unknown) (no date) (unknown) (unknown) Lungs clear to auscultation bilaterally (units unknown) (unknown) (unknown) (no date) (unknown) (unknown) Medical History (units unknown) (unknown) (unknown) (no date) (unknown) (unknown) Medication Instructions Recorded Confirmed Type (units unknown) (unknown) (unknown) (no date) (unknown) (unknown) Meds (units unknown) (unknown) (unknown) (no date) (unknown) (unknown) Narrative (units unknown) (unknown) (unknown) (no date) (unknown) (unknown) Narrative: (units unknown) (unknown) (unknown) (no date) (unknown) (unknown) No Known Drug Allergies Allergy Verified 08/13/22 11:07 (units unknown) (unknown) (unknown) (no date) (unknown) (unknown) Objective (units unknown) (unknown) (unknown) (no date) (unknown) (unknown) Osteoarthritis (units unknown) (unknown) (unknown) (no date) (unknown) (unknown) Oxygen Delivery Meth od Ambu Bag Ambu Bag (units unknown) (unknown) (unknown) (no date) (unknown) (unknown) Oxygen Delivery Meth od Nasal Cannula Nasal Cannula (units unknown) (unknown) (unknown) (no date) (unknown) (unknown) Oxygen Delivery Meth od Nasal Cannula (units unknown) (unknown) (unknown) (no date) (unknown) (unknown) Oxygen Delivery Meth od Room Air Nasal Cannula (units unknown) (unknown) (unknown) (no date) (unknown) (unknown) Oxygen Delivery Meth od Room Air (units unknown) (unknown) (unknown) (no date) (unknown) (unknown) Oxygen Delivery Method (units unknown) (unknown) (unknown) (no date) (unknown) (unknown) Oxygen Flow Rate 0 (units unknown) (unknown) (unknown) (no date) (unknown) (unknown) Oxygen Flow Rate 15 15 (units unknown) (unknown) (unknown) (no date) (unknown) (unknown) Oxygen Flow Rate 2 2 (units unknown) (unknown) (unknown) (no date) (unknown) (unknown) Oxygen Flow Rate 2 (units unknown) (unknown) (unknown) (no date) (unknown) (unknown) Oxygen Flow Rate 6 6 (units unknown) (unknown) (unknown) (no date) (unknown) (unknown) Oxygen Flow Rate 6 (units unknown) (unknown) (unknown) (no date) (unknown) (unknown) Oxygen Flow Rate (units unknown) (unknown) (unknown) (no date) (unknown) (unknown) PFSH (units unknown) (unknown) (unknown) (no date) (unknown) (unknown) Pain/inflammation #9 0 tabs (units unknown) (unknown) (unknown) (no date) (unknown) (unknown) Patient is 72-year-o ld female status post posterior approach left total hip (units unknown) (unknown) (unknown) (no date) (unknown) (unknown) Patient: Barbara Garcia MR#: [id number] (units unknown) (unknown) (unknown) (no date) (unknown) (unknown) Provider: Carolee Paulino MD (units unknown) (unknown) (unknown) (no date) (unknown) (unknown) Pulse Oximetry 94 (units unknown) (unknown) (unknown) (no date) (unknown) (unknown) Pulse Oximetry 95 79 L (units unknown) (unknown) (unknown) (no date) (unknown) (unknown) Pulse Oximetry 95 95 (units unknown) (unknown) (unknown) (no date) (unknown) (unknown) Pulse Oximetry 95 99 99 (units unknown) (unknown) (unknown) (no date) (unknown) (unknown) Pulse Oximetry 95 (units unknown) (unknown) (unknown) (no date) (unknown) (unknown) Pulse Oximetry 96 99 (units unknown) (unknown) (unknown) (no date) (unknown) (unknown) Pulse Oximetry 97 97 (units unknown) (unknown) (unknown) (no date) (unknown) (unknown) Pulse Oximetry 97 (units unknown) (unknown) (unknown) (no date) (unknown) (unknown) Pulse Oximetry 98 97 (units unknown) (unknown) (unknown) (no date) (unknown) (unknown) Pulse Oximetry 98 98 (units unknown) (unknown) (unknown) (no date) (unknown) (unknown) Pulse Oximetry 98 (units unknown) (unknown) (unknown) (no date) (unknown) (unknown) Pulse Oximetry 99 99 (units unknown) (unknown) (unknown) (no date) (unknown) (unknown) Pulse Oximetry (units unknown) (unknown) (unknown) (no date) (unknown) (unknown) Pulse Rate 61 62 64 (units unknown) (unknown) (unknown) (no date) (unknown) (unknown) Pulse Rate 67 69 (units unknown) (unknown) (unknown) (no date) (unknown) (unknown) Pulse Rate 69 75 (units unknown) (unknown) (unknown) (no date) (unknown) (unknown) Pulse Rate 71 72 (units unknown) (unknown) (unknown) (no date) (unknown) (unknown) Pulse Rate 71 (units unknown) (unknown) (unknown) (no date) (unknown) (unknown) Pulse Rate 72 72 (units unknown) (unknown) (unknown) (no date) (unknown) (unknown) Pulse Rate 73 72 (units unknown) (unknown) (unknown) (no date) (unknown) (unknown) Pulse Rate 73 73 (units unknown) (unknown) (unknown) (no date) (unknown) (unknown) Pulse Rate 74 74 (units unknown) (unknown) (unknown) (no date) (unknown) (unknown) Pulse Rate 74 75 (units unknown) (unknown) (unknown) (no date) (unknown) (unknown) Pulse Rate 74 (units unknown) (unknown) (unknown) (no date) (unknown) (unknown) Pulse Rate 75 (units unknown) (unknown) (unknown) (no date) (unknown) (unknown) Pulse Rate 80 (units unknown) (unknown) (unknown) (no date) (unknown) (unknown) Quality (units unknown) (unknown) (unknown) (no date) (unknown) (unknown) ROS: Yes All systems reviewed with the patient and are negative except as (units unknown) (unknown) (unknown) (no date) (unknown) (unknown) Respiratory Rate 16 (units unknown) (unknown) (unknown) (no date) (unknown) (unknown) Respiratory Rate 17 (units unknown) (unknown) (unknown) (no date) (unknown) (unknown) Respiratory Rate 18 21 (units unknown) (unknown) (unknown) (no date) (unknown) (unknown) Respiratory Rate 18 (units unknown) (unknown) (unknown) (no date) (unknown) (unknown) Respiratory Rate 19 (units unknown) (unknown) (unknown) (no date) (unknown) (unknown) Respiratory Rate 21 (units unknown) (unknown) (unknown) (no date) (unknown) (unknown) Respiratory Rate 23 21 (units unknown) (unknown) (unknown) (no date) (unknown) (unknown) Respiratory Rate 23 27 H (units unknown) (unknown) (unknown) (no date) (unknown) (unknown) Respiratory Rate 25 H 29 H (units unknown) (unknown) (unknown) (no date) (unknown) (unknown) Respiratory Rate 25 H (units unknown) (unknown) (unknown) (no date) (unknown) (unknown) Respiratory Rate 28 H (units unknown) (unknown) (unknown) (no date) (unknown) (unknown) Respiratory Rate 30 H 15 (units unknown) (unknown) (unknown) (no date) (unknown) (unknown) Respiratory Rate 30 H 26 H (units unknown) (unknown) (unknown) (no date) (unknown) (unknown) Respiratory Rate (units unknown) (unknown) (unknown) (no date) (unknown) (unknown) Review of Systems (units unknown) (unknown) (unknown) (no date) (unknown) (unknown) SARS-CoV-2 (PCR) Negative (units unknown) (unknown) (unknown) (no date) (unknown) (unknown) Seasonal allergies (units unknown) (unknown) (unknown) (no date) (unknown) (unknown) Signed By: (units unknown) (unknown) (unknown) (no date) (unknown) (unknown) Smoking Status: Carmencita rubin smoker (units unknown) (unknown) (unknown) (no date) (unknown) (unknown) Social History (units unknown) (unknown) (unknown) (no date) (unknown) (unknown) Surgical History (units unknown) (unknown) (unknown) (no date) (unknown) (unknown) Temperature 97.1 F L (units unknown) (unknown) (unknown) (no date) (unknown) (unknown) Temperature 97.8 F (units unknown) (unknown) (unknown) (no date) (unknown) (unknown) Temperature (units unknown) (unknown) (unknown) (no date) (unknown) (unknown) Time Patient Seen: 18:56 (units unknown) (unknown) (unknown) (no date) (unknown) (unknown) VTE (units unknown) (unknown) (unknown) (no date) (unknown) (unknown) Vital Signs (units unknown) (unknown) (unknown) (no date) (unknown) (unknown) acetaminophen 325 mg tablet 650 mg PO Q6H PRN fever or pain 09/15/22 09/27/22 Rx (units unknown) (unknown) (unknown) (no date) (unknown) (unknown) adequate sedation an d reduction attempt was unsuccessful. The patient was then (units unknown) (unknown) (unknown) (no date) (unknown) (unknown) admitted for schedul ed closed reduction under general anesthetic in the (units unknown) (unknown) (unknown) (no date) (unknown) (unknown) alcohol intake: current (units unknown) (unknown) (unknown) (no date) (unknown) (unknown) allergies (units unknown) (unknown) (unknown) (no date) (unknown) (unknown) arthroplasty with Dr Raad River 3 weeks ago in September at [facility]. She was (units unknown) (unknown) (unknown) (no date) (unknown) (unknown) aspirin 81 mg tablet,delayed 81 mg PO BID 6 weeks #84 tabs 09/15/22 09/27/22 Rx (units unknown) (unknown) (unknown) (no date) (unknown) (unknown) aspirin-acetaminophe n- caffeine 250 1 - 2 tab PO BID 08/13/22 09/27/22 History (units unknown) (unknown) (unknown) (no date) (unknown) (unknown) atorvastatin 20 mg tablet 20 mg PO BEDTIME 08/13/22 09/27/22 History (units unknown) (unknown) (unknown) (no date) (unknown) (unknown) bicarbonate 1.1 gram capsule (units unknown) (unknown) (unknown) (no date) (unknown) (unknown) brought to [facility] where she was found to have an anterior hip (units unknown) (unknown) (unknown) (no date) (unknown) (unknown) caps (units unknown) (unknown) (unknown) (no date) (unknown) (unknown) cetirizine 10 mg tablet (Zyrtec) 10 mg PO DAILY PRN Seasonal 08/13/22 09/27/22 (units unknown) (unknown) (unknown) (no date) (unknown) (unknown) dislocation. Attempt ed reduction was done in the ER but they could not get (units unknown) (unknown) (unknown) (no date) (unknown) (unknown) docusate sodium 100 mg capsule 100 mg PO BID PRN constipation #30 09/15/22 (units unknown) (unknown) (unknown) (no date) (unknown) (unknown) escitalopram oxalate 20 mg tablet 20 mg PO DAILY 08/13/22 09/27/22 History (units unknown) (unknown) (unknown) (no date) (unknown) (unknown) getting up from seat ed position today and sustained a hip dislocation. She was (units unknown) (unknown) (unknown) (no date) (unknown) (unknown) household members: spouse (units unknown) (unknown) (unknown) (no date) (unknown) (unknown) ibuprofen 400 mg tablet 400 mg PO Q4H PRN 09/15/22 09/27/22 Rx (units unknown) (unknown) (unknown) (no date) (unknown) (unknown) intact, she has 2+ dorsalis pedis bilaterally with normal sensation throughout (units unknown) (unknown) (unknown) (no date) (unknown) (unknown) mg-250 mg-65 mg tabl et (Excedrin (units unknown) (unknown) (unknown) (no date) (unknown) (unknown) of motion of the lef t hip,plantar and dorsiflexion of the foot on the left (units unknown) (unknown) (unknown) (no date) (unknown) (unknown) omeprazole 20 mg-sodium 1 cap PO DAILY PRN GI Upset 08/13/22 09/27/22 History (units unknown) (unknown) (unknown) (no date) (unknown) (unknown) operating room. (units unknown) (unknown) (unknown) (no date) (unknown) (unknown) otherwise documented (units unknown) (unknown) (unknown) (no date) (unknown) (unknown) release (units unknown) (unknown) (unknown) (no date) (unknown) (unknown) slightly rotated on exam, no clubbing or edema.? Neurovascularly intact. (units unknown) (unknown) (unknown) (no date) (unknown) (unknown) solifenacin 10 mg tablet (Vesicare) 10 mg PO DAILY 08/13/22 09/27/22 History (units unknown) (unknown) (unknown) (no date) (unknown) (unknown) the leg.? Cap refill less than 2 seconds bilaterally.? Patient is shortened and (units unknown) (unknown) Result panel 1304 (unknown) (no date) (unknown) (unknown) (no value) (units unknown) (unknown) (unknown) (no date) (unknown) (unknown) #90 tabs (units unknown) (unknown) (unknown) (no date) (unknown) (unknown) (1) Failure of left total hip arthroplasty with dislocation of hip: (units unknown) (unknown) (unknown) (no date) (unknown) (unknown) (Zegerid) (units unknown) (unknown) (unknown) (no date) (unknown) (unknown) (past 8 hours): (units unknown) (unknown) (unknown) (no date) (unknown) (unknown) 09/27/22 1905 (units unknown) (unknown) (unknown) (no date) (unknown) (unknown) 09/27/22 Rx (units unknown) (unknown) (unknown) (no date) (unknown) (unknown) 09/27/22 (units unknown) (unknown) (unknown) (no date) (unknown) (unknown) 15:00 09/27/22 (units unknown) (unknown) (unknown) (no date) (unknown) (unknown) 15:39 09/27/22 (units unknown) (unknown) (unknown) (no date) (unknown) (unknown) 15:45 (units unknown) (unknown) (unknown) (no date) (unknown) (unknown) 15:56 09/27/22 (units unknown) (unknown) (unknown) (no date) (unknown) (unknown) 15:56 (units unknown) (unknown) (unknown) (no date) (unknown) (unknown) 16:00 09/27/22 (units unknown) (unknown) (unknown) (no date) (unknown) (unknown) 16:01 09/27/22 (units unknown) (unknown) (unknown) (no date) (unknown) (unknown) 16:01 (units unknown) (unknown) (unknown) (no date) (unknown) (unknown) 16:21 09/27/22 (units unknown) (unknown) (unknown) (no date) (unknown) (unknown) 16:21 (units unknown) (unknown) (unknown) (no date) (unknown) (unknown) 16:26 09/27/22 (units unknown) (unknown) (unknown) (no date) (unknown) (unknown) 16:26 (units unknown) (unknown) (unknown) (no date) (unknown) (unknown) 16:30 09/27/22 (units unknown) (unknown) (unknown) (no date) (unknown) (unknown) 16:32 09/27/22 (units unknown) (unknown) (unknown) (no date) (unknown) (unknown) 16:32 (units unknown) (unknown) (unknown) (no date) (unknown) (unknown) 16:35 09/27/22 (units unknown) (unknown) (unknown) (no date) (unknown) (unknown) 16:38 09/27/22 (units unknown) (unknown) (unknown) (no date) (unknown) (unknown) 16:40 09/27/22 (units unknown) (unknown) (unknown) (no date) (unknown) (unknown) 16:40 (units unknown) (unknown) (unknown) (no date) (unknown) (unknown) 16:45 09/27/22 (units unknown) (unknown) (unknown) (no date) (unknown) (unknown) 16:45 (units unknown) (unknown) (unknown) (no date) (unknown) (unknown) 16:50 09/27/22 (units unknown) (unknown) (unknown) (no date) (unknown) (unknown) 16:55 09/27/22 (units unknown) (unknown) (unknown) (no date) (unknown) (unknown) 16:55 (units unknown) (unknown) (unknown) (no date) (unknown) (unknown) 17:00 09/27/22 (units unknown) (unknown) (unknown) (no date) (unknown) (unknown) 17:00 (units unknown) (unknown) (unknown) (no date) (unknown) (unknown) 17:05 09/27/22 (units unknown) (unknown) (unknown) (no date) (unknown) (unknown) 17:10 09/27/22 (units unknown) (unknown) (unknown) (no date) (unknown) (unknown) 17:10 (units unknown) (unknown) (unknown) (no date) (unknown) (unknown) 17:15 09/27/22 (units unknown) (unknown) (unknown) (no date) (unknown) (unknown) 17:15 (units unknown) (unknown) (unknown) (no date) (unknown) (unknown) 17:20 09/27/22 (units unknown) (unknown) (unknown) (no date) (unknown) (unknown) 17:26 09/27/22 (units unknown) (unknown) (unknown) (no date) (unknown) (unknown) 17:26 (units unknown) (unknown) (unknown) (no date) (unknown) (unknown) 17:30 09/27/22 (units unknown) (unknown) (unknown) (no date) (unknown) (unknown) 17:30 (units unknown) (unknown) (unknown) (no date) (unknown) (unknown) 17:35 09/27/22 (units unknown) (unknown) (unknown) (no date) (unknown) (unknown) 17:39 (units unknown) (unknown) (unknown) (no date) (unknown) (unknown) 17:40 09/27/22 (units unknown) (unknown) (unknown) (no date) (unknown) (unknown) 18:21 (units unknown) (unknown) (unknown) (no date) (unknown) (unknown) 3151 (units unknown) (unknown) (unknown) (no date) (unknown) (unknown) AP pelvis and latera l left hip x-ray: (units unknown) (unknown) (unknown) (no date) (unknown) (unknown) Age/Sex: 72 / F (units unknown) (unknown) (unknown) (no date) (unknown) (unknown) Allergies (units unknown) (unknown) (unknown) (no date) (unknown) (unknown) Allergy/AdvReac Type Severity Reaction Status Date / Time (units unknown) (unknown) (unknown) (no date) (unknown) (unknown) Anterior superior dislocation left total hip arthroplasty no evidence of (units unknown) (unknown) (unknown) (no date) (unknown) (unknown) Assessment + Plan narrative: (units unknown) (unknown) (unknown) (no date) (unknown) (unknown) Assessment + Plan (units unknown) (unknown) (unknown) (no date) (unknown) (unknown) Assessment and plan (units unknown) (unknown) (unknown) (no date) (unknown) (unknown) Bilateral extremitie s moving without limitation (units unknown) (unknown) (unknown) (no date) (unknown) (unknown) Blood Pressure 131/65 (units unknown) (unknown) (unknown) (no date) (unknown) (unknown) Blood Pressure 138/7 0 158/81 H (units unknown) (unknown) (unknown) (no date) (unknown) (unknown) Blood Pressure 142/7 5 H (units unknown) (unknown) (unknown) (no date) (unknown) (unknown) Blood Pressure 153/7 2 H (units unknown) (unknown) (unknown) (no date) (unknown) (unknown) Blood Pressure 153/8 1 H (units unknown) (unknown) (unknown) (no date) (unknown) (unknown) Blood Pressure 154/7 9 H (units unknown) (unknown) (unknown) (no date) (unknown) (unknown) Blood Pressure 155/8 2 H 157/84 H (units unknown) (unknown) (unknown) (no date) (unknown) (unknown) Blood Pressure 156/7 9 H 146/76 H (units unknown) (unknown) (unknown) (no date) (unknown) (unknown) Blood Pressure 159/7 5 H (units unknown) (unknown) (unknown) (no date) (unknown) (unknown) Blood Pressure 159/7 9 H (units unknown) (unknown) (unknown) (no date) (unknown) (unknown) Blood Pressure 160/9 9 H 152/68 H (units unknown) (unknown) (unknown) (no date) (unknown) (unknown) Blood Pressure 166/9 3 H (units unknown) (unknown) (unknown) (no date) (unknown) (unknown) Blood Pressure 167/9 4 H (units unknown) (unknown) (unknown) (no date) (unknown) (unknown) Blood Pressure 168/8 4 H (units unknown) (unknown) (unknown) (no date) (unknown) (unknown) Blood Pressure 174/8 2 H 165/72 H (units unknown) (unknown) (unknown) (no date) (unknown) (unknown) Blood Pressure 197/8 4 H (units unknown) (unknown) (unknown) (no date) (unknown) (unknown) COVID-19 status: Negative (units unknown) (unknown) (unknown) (no date) (unknown) (unknown) COVID-19 (units unknown) (unknown) (unknown) (no date) (unknown) (unknown) Chief complaint: Lt Hip Pain (units unknown) (unknown) (unknown) (no date) (unknown) (unknown) : 1950 Acct:[id number] (units unknown) (unknown) (unknown) (no date) (unknown) (unknown) Date Patient Seen: 09/27/22 (units unknown) (unknown) (unknown) (no date) (unknown) (unknown) Date of Onset of Symptoms: 09/27/22 (units unknown) (unknown) (unknown) (no date) (unknown) (unknown) Date of Service: 09/27/22 (units unknown) (unknown) (unknown) (no date) (unknown) (unknown) Deep Vein Thrombosis/Pulmonary Embolism Present on Admission: No (units unknown) (unknown) (unknown) (no date) (unknown) (unknown) Depression (units unknown) (unknown) (unknown) (no date) (unknown) (unknown) Discussed if there i s a failure of closed reduction under general anesthesia she (units unknown) (unknown) (unknown) (no date) (unknown) (unknown) Diverticulitis (units unknown) (unknown) (unknown) (no date) (unknown) (unknown) Exam Narrative: (units unknown) (unknown) (unknown) (no date) (unknown) (unknown) Exam (units unknown) (unknown) (unknown) (no date) (unknown) (unknown) Extra Strength) (units unknown) (unknown) (unknown) (no date) (unknown) (unknown) GERD (gastroesophage al reflux disease) (units unknown) (unknown) (unknown) (no date) (unknown) (unknown) General exam alert a nd oriented female in no acute distress (units unknown) (unknown) (unknown) (no date) (unknown) (unknown) HEENT normocephalic atraumatic (units unknown) (unknown) (unknown) (no date) (unknown) (unknown) HLD (hyperlipidemia) (units unknown) (unknown) (unknown) (no date) (unknown) (unknown) Hearing impaired (units unknown) (unknown) (unknown) (no date) (unknown) (unknown) Heart regular rate a nd rhythm (units unknown) (unknown) (unknown) (no date) (unknown) (unknown) History + Physical Report (units unknown) (unknown) (unknown) (no date) (unknown) (unknown) History of Present Illness (units unknown) (unknown) (unknown) (no date) (unknown) (unknown) History of bladder surgery (units unknown) (unknown) (unknown) (no date) (unknown) (unknown) History of total lef t knee replacement (units unknown) (unknown) (unknown) (no date) (unknown) (unknown) History of total rig ht knee replacement (units unknown) (unknown) (unknown) (no date) (unknown) (unknown) History (units unknown) (unknown) (unknown) (no date) (unknown) (unknown) Home Medications and Allergies (units unknown) (unknown) (unknown) (no date) (unknown) (unknown) Home Medications (units unknown) (unknown) (unknown) (no date) (unknown) (unknown) Hx of left breast biopsy (units unknown) (unknown) (unknown) (no date) (unknown) (unknown) Hx of right breast biopsy (units unknown) (unknown) (unknown) (no date) (unknown) (unknown) Hx of tonsillectomy (units unknown) (unknown) (unknown) (no date) (unknown) (unknown) Imaging (units unknown) (unknown) (unknown) (no date) (unknown) (unknown) Incision healed (units unknown) (unknown) (unknown) (no date) (unknown) (unknown) [address] [address] (units unknown) (unknown) (unknown) (no date) (unknown) (unknown) Laboratory Results - last 24 hr (units unknown) (unknown) (unknown) (no date) (unknown) (unknown) Labs (units unknown) (unknown) (unknown) (no date) (unknown) (unknown) Labs: (units unknown) (unknown) (unknown) (no date) (unknown) (unknown) Left lower extremity limited range of motion secondary to pain---Decreased range (units unknown) (unknown) (unknown) (no date) (unknown) (unknown) Lungs clear to auscultation bilaterally (units unknown) (unknown) (unknown) (no date) (unknown) (unknown) Medical History (units unknown) (unknown) (unknown) (no date) (unknown) (unknown) Medication Instructions Recorded Confirmed Type (units unknown) (unknown) (unknown) (no date) (unknown) (unknown) Meds (units unknown) (unknown) (unknown) (no date) (unknown) (unknown) My impression: (units unknown) (unknown) (unknown) (no date) (unknown) (unknown) Narrative (units unknown) (unknown) (unknown) (no date) (unknown) (unknown) Narrative: (units unknown) (unknown) (unknown) (no date) (unknown) (unknown) No Known Drug Allergies Allergy Verified 08/13/22 11:07 (units unknown) (unknown) (unknown) (no date) (unknown) (unknown) Objective (units unknown) (unknown) (unknown) (no date) (unknown) (unknown) Osteoarthritis (units unknown) (unknown) (unknown) (no date) (unknown) (unknown) Oxygen Delivery Meth od Ambu Bag Ambu Bag (units unknown) (unknown) (unknown) (no date) (unknown) (unknown) Oxygen Delivery Meth od Nasal Cannula Nasal Cannula (units unknown) (unknown) (unknown) (no date) (unknown) (unknown) Oxygen Delivery Meth od Nasal Cannula (units unknown) (unknown) (unknown) (no date) (unknown) (unknown) Oxygen Delivery Meth od Room Air Nasal Cannula (units unknown) (unknown) (unknown) (no date) (unknown) (unknown) Oxygen Delivery Meth od Room Air (units unknown) (unknown) (unknown) (no date) (unknown) (unknown) Oxygen Delivery Method (units unknown) (unknown) (unknown) (no date) (unknown) (unknown) Oxygen Flow Rate 0 (units unknown) (unknown) (unknown) (no date) (unknown) (unknown) Oxygen Flow Rate 15 15 (units unknown) (unknown) (unknown) (no date) (unknown) (unknown) Oxygen Flow Rate 2 2 (units unknown) (unknown) (unknown) (no date) (unknown) (unknown) Oxygen Flow Rate 2 (units unknown) (unknown) (unknown) (no date) (unknown) (unknown) Oxygen Flow Rate 6 6 (units unknown) (unknown) (unknown) (no date) (unknown) (unknown) Oxygen Flow Rate 6 (units unknown) (unknown) (unknown) (no date) (unknown) (unknown) Oxygen Flow Rate (units unknown) (unknown) (unknown) (no date) (unknown) (unknown) PFSH (units unknown) (unknown) (unknown) (no date) (unknown) (unknown) Pain/inflammation #9 0 tabs (units unknown) (unknown) (unknown) (no date) (unknown) (unknown) Patient has a left total hip dislocation. This is a anterior superior (units unknown) (unknown) (unknown) (no date) (unknown) (unknown) Patient is 72-year-o ld female status post posterior approach left total hip (units unknown) (unknown) (unknown) (no date) (unknown) (unknown) Patient: Barbara Garcia MR#: [id number] (units unknown) (unknown) (unknown) (no date) (unknown) (unknown) Provider: Carolee Paulino MD (units unknown) (unknown) (unknown) (no date) (unknown) (unknown) Pulse Oximetry 94 (units unknown) (unknown) (unknown) (no date) (unknown) (unknown) Pulse Oximetry 95 79 L (units unknown) (unknown) (unknown) (no date) (unknown) (unknown) Pulse Oximetry 95 95 (units unknown) (unknown) (unknown) (no date) (unknown) (unknown) Pulse Oximetry 95 99 99 (units unknown) (unknown) (unknown) (no date) (unknown) (unknown) Pulse Oximetry 95 (units unknown) (unknown) (unknown) (no date) (unknown) (unknown) Pulse Oximetry 96 99 (units unknown) (unknown) (unknown) (no date) (unknown) (unknown) Pulse Oximetry 97 97 (units unknown) (unknown) (unknown) (no date) (unknown) (unknown) Pulse Oximetry 97 (units unknown) (unknown) (unknown) (no date) (unknown) (unknown) Pulse Oximetry 98 97 (units unknown) (unknown) (unknown) (no date) (unknown) (unknown) Pulse Oximetry 98 98 (units unknown) (unknown) (unknown) (no date) (unknown) (unknown) Pulse Oximetry 98 (units unknown) (unknown) (unknown) (no date) (unknown) (unknown) Pulse Oximetry 99 99 (units unknown) (unknown) (unknown) (no date) (unknown) (unknown) Pulse Oximetry (units unknown) (unknown) (unknown) (no date) (unknown) (unknown) Pulse Rate 61 62 64 (units unknown) (unknown) (unknown) (no date) (unknown) (unknown) Pulse Rate 67 69 (units unknown) (unknown) (unknown) (no date) (unknown) (unknown) Pulse Rate 69 75 (units unknown) (unknown) (unknown) (no date) (unknown) (unknown) Pulse Rate 71 72 (units unknown) (unknown) (unknown) (no date) (unknown) (unknown) Pulse Rate 71 (units unknown) (unknown) (unknown) (no date) (unknown) (unknown) Pulse Rate 72 72 (units unknown) (unknown) (unknown) (no date) (unknown) (unknown) Pulse Rate 73 72 (units unknown) (unknown) (unknown) (no date) (unknown) (unknown) Pulse Rate 73 73 (units unknown) (unknown) (unknown) (no date) (unknown) (unknown) Pulse Rate 74 74 (units unknown) (unknown) (unknown) (no date) (unknown) (unknown) Pulse Rate 74 75 (units unknown) (unknown) (unknown) (no date) (unknown) (unknown) Pulse Rate 74 (units unknown) (unknown) (unknown) (no date) (unknown) (unknown) Pulse Rate 75 (units unknown) (unknown) (unknown) (no date) (unknown) (unknown) Pulse Rate 80 (units unknown) (unknown) (unknown) (no date) (unknown) (unknown) Quality (units unknown) (unknown) (unknown) (no date) (unknown) (unknown) ROS: Yes All systems reviewed with the patient and are negative except as (units unknown) (unknown) (unknown) (no date) (unknown) (unknown) Radiologist's impression: (units unknown) (unknown) (unknown) (no date) (unknown) (unknown) Respiratory Rate 16 (units unknown) (unknown) (unknown) (no date) (unknown) (unknown) Respiratory Rate 17 (units unknown) (unknown) (unknown) (no date) (unknown) (unknown) Respiratory Rate 18 21 (units unknown) (unknown) (unknown) (no date) (unknown) (unknown) Respiratory Rate 18 (units unknown) (unknown) (unknown) (no date) (unknown) (unknown) Respiratory Rate 19 (units unknown) (unknown) (unknown) (no date) (unknown) (unknown) Respiratory Rate 21 (units unknown) (unknown) (unknown) (no date) (unknown) (unknown) Respiratory Rate 23 21 (units unknown) (unknown) (unknown) (no date) (unknown) (unknown) Respiratory Rate 23 27 H (units unknown) (unknown) (unknown) (no date) (unknown) (unknown) Respiratory Rate 25 H 29 H (units unknown) (unknown) (unknown) (no date) (unknown) (unknown) Respiratory Rate 25 H (units unknown) (unknown) (unknown) (no date) (unknown) (unknown) Respiratory Rate 28 H (units unknown) (unknown) (unknown) (no date) (unknown) (unknown) Respiratory Rate 30 H 15 (units unknown) (unknown) (unknown) (no date) (unknown) (unknown) Respiratory Rate 30 H 26 H (units unknown) (unknown) (unknown) (no date) (unknown) (unknown) Respiratory Rate (units unknown) (unknown) (unknown) (no date) (unknown) (unknown) Review of Systems (units unknown) (unknown) (unknown) (no date) (unknown) (unknown) SARS-CoV-2 (PCR) Negative (units unknown) (unknown) (unknown) (no date) (unknown) (unknown) Seasonal allergies (units unknown) (unknown) (unknown) (no date) (unknown) (unknown) Signed By:<Electronically signed by Carolee Paulino MD> (units unknown) (unknown) (unknown) (no date) (unknown) (unknown) [place] (units unknown) (unknown) (unknown) (no date) (unknown) (unknown) Smoking Status: Alejandralane caryn smoker (units unknown) (unknown) (unknown) (no date) (unknown) (unknown) Social History (units unknown) (unknown) (unknown) (no date) (unknown) (unknown) Status: Acute (units unknown) (unknown) (unknown) (no date) (unknown) (unknown) Superior hip arthroplasty dislocation (units unknown) (unknown) (unknown) (no date) (unknown) (unknown) Surgical History (units unknown) (unknown) (unknown) (no date) (unknown) (unknown) Temperature 97.1 F L (units unknown) (unknown) (unknown) (no date) (unknown) (unknown) Temperature 97.8 F (units unknown) (unknown) (unknown) (no date) (unknown) (unknown) Temperature (units unknown) (unknown) (unknown) (no date) (unknown) (unknown) The patient understands and agrees with the plan. (units unknown) (unknown) (unknown) (no date) (unknown) (unknown) Time Patient Seen: 18:56 (units unknown) (unknown) (unknown) (no date) (unknown) (unknown) Time Spent With Patient (units unknown) (unknown) (unknown) (no date) (unknown) (unknown) Time with patient: less than 30 minutes (units unknown) (unknown) (unknown) (no date) (unknown) (unknown) VTE (units unknown) (unknown) (unknown) (no date) (unknown) (unknown) Vital Signs (units unknown) (unknown) (unknown) (no date) (unknown) (unknown) acetaminophen 325 mg tablet 650 mg PO Q6H PRN fever or pain 09/15/22 09/27/22 Rx (units unknown) (unknown) (unknown) (no date) (unknown) (unknown) adequate sedation an d reduction attempt was unsuccessful. The patient was then (units unknown) (unknown) (unknown) (no date) (unknown) (unknown) admitted for [facility] ed closed reduction under general anesthetic in the (units unknown) (unknown) (unknown) (no date) (unknown) (unknown) admitted to observation for scheduling of her general anesthetic requiring (units unknown) (unknown) (unknown) (no date) (unknown) (unknown) alcohol intake: current (units unknown) (unknown) (unknown) (no date) (unknown) (unknown) allergies (units unknown) (unknown) (unknown) (no date) (unknown) (unknown) arthroplasty with Dr Raad River 3 weeks ago in September at [facility]. She was (units unknown) (unknown) (unknown) (no date) (unknown) (unknown) aspirin 81 mg tablet,delayed 81 mg PO BID 6 weeks #84 tabs 09/15/22 09/27/22 Rx (units unknown) (unknown) (unknown) (no date) (unknown) (unknown) aspirin-acetaminophe n- caffeine 250 1 - 2 tab PO BID 08/13/22 09/27/22 History (units unknown) (unknown) (unknown) (no date) (unknown) (unknown) atorvastatin 20 mg tablet 20 mg PO BEDTIME 08/13/22 09/27/22 History (units unknown) (unknown) (unknown) (no date) (unknown) (unknown) bicarbonate 1.1 gram capsule (units unknown) (unknown) (unknown) (no date) (unknown) (unknown) brought to [facility] where she was found to have an anterior hip (units unknown) (unknown) (unknown) (no date) (unknown) (unknown) caps (units unknown) (unknown) (unknown) (no date) (unknown) (unknown) cetirizine 10 mg tablet (Zyrtec) 10 mg PO DAILY PRN Seasonal 08/13/22 09/27/22 (units unknown) (unknown) (unknown) (no date) (unknown) (unknown) closed reduction in the operating room and for post anesthetic monitoring. (units unknown) (unknown) (unknown) (no date) (unknown) (unknown) dislocation. Attempt ed reduction was done in the ER but they could not get (units unknown) (unknown) (unknown) (no date) (unknown) (unknown) dislocation. The patient had an arthroplasty with a posterior approach. She (units unknown) (unknown) (unknown) (no date) (unknown) (unknown) docusate sodium 100 mg capsule 100 mg PO BID PRN constipation #30 09/15/22 (units unknown) (unknown) (unknown) (no date) (unknown) (unknown) escitalopram oxalate 20 mg tablet 20 mg PO DAILY 08/13/22 09/27/22 History (units unknown) (unknown) (unknown) (no date) (unknown) (unknown) fracture, grossly stable appearance of individual components from immediate (units unknown) (unknown) (unknown) (no date) (unknown) (unknown) getting up from seat ed position today and sustained a hip dislocation. She was (units unknown) (unknown) (unknown) (no date) (unknown) (unknown) household members: spouse (units unknown) (unknown) (unknown) (no date) (unknown) (unknown) ibuprofen 400 mg tablet 400 mg PO Q4H PRN 09/15/22 09/27/22 Rx (units unknown) (unknown) (unknown) (no date) (unknown) (unknown) intact, she has 2+ dorsalis pedis bilaterally with normal sensation throughout (units unknown) (unknown) (unknown) (no date) (unknown) (unknown) may require surgical intervention. Or if there is residual instability. This (units unknown) (unknown) (unknown) (no date) (unknown) (unknown) mg-250 mg-65 mg tabl et (Excedrin (units unknown) (unknown) (unknown) (no date) (unknown) (unknown) of motion of the lef t hip,plantar and dorsiflexion of the foot on the left (units unknown) (unknown) (unknown) (no date) (unknown) (unknown) omeprazole 20 mg-sodium 1 cap PO DAILY PRN GI Upset 08/13/22 09/27/22 History (units unknown) (unknown) (unknown) (no date) (unknown) (unknown) operating room after an unsuccessful attempt in the emergency room. Patient was (units unknown) (unknown) (unknown) (no date) (unknown) (unknown) operating room. (units unknown) (unknown) (unknown) (no date) (unknown) (unknown) otherwise documented (units unknown) (unknown) (unknown) (no date) (unknown) (unknown) patient's radiograph s have also been discussed with the operating surgeon (units unknown) (unknown) (unknown) (no date) (unknown) (unknown) postop now with interval anterior superior dislocation (units unknown) (unknown) (unknown) (no date) (unknown) (unknown) release (units unknown) (unknown) (unknown) (no date) (unknown) (unknown) room and was indicat ed for closed reduction under general anesthetic in the (units unknown) (unknown) (unknown) (no date) (unknown) (unknown) slightly rotated on exam, no clubbing or edema.? Neurovascularly intact. (units unknown) (unknown) (unknown) (no date) (unknown) (unknown) solifenacin 10 mg tablet (Vesicare) 10 mg PO DAILY 08/13/22 09/27/22 History (units unknown) (unknown) (unknown) (no date) (unknown) (unknown) the leg.? Cap refill less than 2 seconds bilaterally.? Patient is shortened and (units unknown) (unknown) (unknown) (no date) (unknown) (unknown) was unable to be appropriately sedated for closed reduction in the emergency (units unknown) (unknown) Result panel [id number] (unknown) (no date) (unknown) (unknown) (no value) (units unknown) (unknown) (unknown) (no date) (unknown) (unknown) #90 tabs (units unknown) (unknown) (unknown) (no date) (unknown) (unknown) (Zegerid) (units unknown) (unknown) (unknown) (no date) (unknown) (unknown) + for hip dislocation. (units unknown) (unknown) (unknown) (no date) (unknown) (unknown) - Unspecified dislocation of left hip, initial encounter (units unknown) (unknown) (unknown) (no date) (unknown) (unknown) 09/14/22 (units unknown) (unknown) (unknown) (no date) (unknown) (unknown) 09/27/22 15:04 (units unknown) (unknown) (unknown) (no date) (unknown) (unknown) 09/27/22 15:45 (units unknown) (unknown) (unknown) (no date) (unknown) (unknown) 09/27/22 16:35 (units unknown) (unknown) (unknown) (no date) (unknown) (unknown) 09/27/22 Range/Units (units unknown) (unknown) (unknown) (no date) (unknown) (unknown) 09/27/22 (units unknown) (unknown) (unknown) (no date) (unknown) (unknown) 03/15/22 (units unknown) (unknown) (unknown) (no date) (unknown) (unknown) [address] [place] [address] (units unknown) (unknown) (unknown) (no date) (unknown) (unknown) 15:00 09/27/22 (units unknown) (unknown) (unknown) (no date) (unknown) (unknown) 15:39 09/27/22 (units unknown) (unknown) (unknown) (no date) (unknown) (unknown) 15:45 (units unknown) (unknown) (unknown) (no date) (unknown) (unknown) 15:56 09/27/22 (units unknown) (unknown) (unknown) (no date) (unknown) (unknown) 15:56 (units unknown) (unknown) (unknown) (no date) (unknown) (unknown) 16:00 09/27/22 (units unknown) (unknown) (unknown) (no date) (unknown) (unknown) 16:01 09/27/22 (units unknown) (unknown) (unknown) (no date) (unknown) (unknown) 16:01 (units unknown) (unknown) (unknown) (no date) (unknown) (unknown) 16:21 09/27/22 (units unknown) (unknown) (unknown) (no date) (unknown) (unknown) 16:21 (units unknown) (unknown) (unknown) (no date) (unknown) (unknown) 16:26 09/27/22 (units unknown) (unknown) (unknown) (no date) (unknown) (unknown) 16:26 (units unknown) (unknown) (unknown) (no date) (unknown) (unknown) 16:30 09/27/22 (units unknown) (unknown) (unknown) (no date) (unknown) (unknown) 16:32 09/27/22 (units unknown) (unknown) (unknown) (no date) (unknown) (unknown) 16:32 (units unknown) (unknown) (unknown) (no date) (unknown) (unknown) 16:35 09/27/22 (units unknown) (unknown) (unknown) (no date) (unknown) (unknown) 16:38 09/27/22 (units unknown) (unknown) (unknown) (no date) (unknown) (unknown) 16:40 09/27/22 (units unknown) (unknown) (unknown) (no date) (unknown) (unknown) 16:40 (units unknown) (unknown) (unknown) (no date) (unknown) (unknown) 16:45 09/27/22 (units unknown) (unknown) (unknown) (no date) (unknown) (unknown) 16:45 (units unknown) (unknown) (unknown) (no date) (unknown) (unknown) 16:50 09/27/22 (units unknown) (unknown) (unknown) (no date) (unknown) (unknown) 16:55 09/27/22 (units unknown) (unknown) (unknown) (no date) (unknown) (unknown) 16:55 (units unknown) (unknown) (unknown) (no date) (unknown) (unknown) 17:00 09/27/22 (units unknown) (unknown) (unknown) (no date) (unknown) (unknown) 17:00 (units unknown) (unknown) (unknown) (no date) (unknown) (unknown) 17:05 09/27/22 (units unknown) (unknown) (unknown) (no date) (unknown) (unknown) 17:10 09/27/22 (units unknown) (unknown) (unknown) (no date) (unknown) (unknown) 17:10 (units unknown) (unknown) (unknown) (no date) (unknown) (unknown) 17:15 09/27/22 (units unknown) (unknown) (unknown) (no date) (unknown) (unknown) 17:15 (units unknown) (unknown) (unknown) (no date) (unknown) (unknown) 17:20 09/27/22 (units unknown) (unknown) (unknown) (no date) (unknown) (unknown) 17:26 (units unknown) (unknown) (unknown) (no date) (unknown) (unknown) 3151 (units unknown) (unknown) (unknown) (no date) (unknown) (unknown) ? (units unknown) (unknown) (unknown) (no date) (unknown) (unknown) ABDOMEN: Soft, nontender. Normoactive bowel sounds all 4 quadrants. No (units unknown) (unknown) (unknown) (no date) (unknown) (unknown) ASA Class: II (units unknown) (unknown) (unknown) (no date) (unknown) (unknown) Accession Number: [id number] ?? (units unknown) (unknown) (unknown) (no date) (unknown) (unknown) Acct:[id number] (units unknown) (unknown) (unknown) (no date) (unknown) (unknown) Admin: 09/27/22 17:1 0 Dose: 100 mls/hr (units unknown) (unknown) (unknown) (no date) (unknown) (unknown) Admit Date/Time: 09/27/22 17:28 (units unknown) (unknown) (unknown) (no date) (unknown) (unknown) Admit Provider: Carolee Paulino (units unknown) (unknown) (unknown) (no date) (unknown) (unknown) Age/Sex: 72 / F (units unknown) (unknown) (unknown) (no date) (unknown) (unknown) Allergies (units unknown) (unknown) (unknown) (no date) (unknown) (unknown) Allergy/AdvReac Type Severity Reaction Status Date / Time (units unknown) (unknown) (unknown) (no date) (unknown) (unknown) [place] [address] (units unknown) (unknown) (unknown) (no date) (unknown) (unknown) Approved by: [place] Ny M.D. on 09/27/2022 at 16:56?? (units unknown) (unknown) (unknown) (no date) (unknown) (unknown) Attempted procedural sedation with left hip reduction after discussion with (units unknown) (unknown) (unknown) (no date) (unknown) (unknown) Blood Pressure 131/65 (units unknown) (unknown) (unknown) (no date) (unknown) (unknown) Blood Pressure 138/7 0 158/81 H (units unknown) (unknown) (unknown) (no date) (unknown) (unknown) Blood Pressure 142/7 5 H (units unknown) (unknown) (unknown) (no date) (unknown) (unknown) Blood Pressure 153/7 2 H 09/27/22 15:00 (units unknown) (unknown) (unknown) (no date) (unknown) (unknown) Blood Pressure 153/7 2 H (units unknown) (unknown) (unknown) (no date) (unknown) (unknown) Blood Pressure 153/8 1 H (units unknown) (unknown) (unknown) (no date) (unknown) (unknown) Blood Pressure 154/7 9 H (units unknown) (unknown) (unknown) (no date) (unknown) (unknown) Blood Pressure 155/8 2 H 157/84 H (units unknown) (unknown) (unknown) (no date) (unknown) (unknown) Blood Pressure 156/7 9 H 146/76 H (units unknown) (unknown) (unknown) (no date) (unknown) (unknown) Blood Pressure 159/7 5 H (units unknown) (unknown) (unknown) (no date) (unknown) (unknown) Blood Pressure 160/9 9 H 152/68 H (units unknown) (unknown) (unknown) (no date) (unknown) (unknown) Blood Pressure 166/9 3 H (units unknown) (unknown) (unknown) (no date) (unknown) (unknown) Blood Pressure 174/8 2 H (units unknown) (unknown) (unknown) (no date) (unknown) (unknown) Blood Pressure 197/8 4 H (units unknown) (unknown) (unknown) (no date) (unknown) (unknown) Bones:? There remain s superior dislocation of the left hip arthroplasty.? No (units unknown) (unknown) (unknown) (no date) (unknown) (unknown) CARDIOVASCULAR: Regular rate and rhythm without murmurs, rubs or gallops. (units unknown) (unknown) (unknown) (no date) (unknown) (unknown) COMPARISON:? [facility], CR, XR HIP W PEL IF DONE LT 2V, 09/27/2022, 15:02. (units unknown) (unknown) (unknown) (no date) (unknown) (unknown) COVID19 -Nasal RAPID Stat (units unknown) (unknown) (unknown) (no date) (unknown) (unknown) Chief complaint: Extremity Problem,Nontraumatic (units unknown) (unknown) (unknown) (no date) (unknown) (unknown) [place] yN (units unknown) (unknown) (unknown) (no date) (unknown) (unknown) Clinical Impression: (units unknown) (unknown) (unknown) (no date) (unknown) (unknown) Close (units unknown) (unknown) (unknown) (no date) (unknown) (unknown) Complications: hypoventilation (hypoxia) (units unknown) (unknown) (unknown) (no date) (unknown) (unknown) Consent signed: Yes (units unknown) (unknown) (unknown) (no date) (unknown) (unknown) Course (units unknown) (unknown) (unknown) (no date) (unknown) (unknown) Covid swab is negative. (units unknown) (unknown) (unknown) (no date) (unknown) (unknown) : 1950 Acct:[id number] (units unknown) (unknown) (unknown) (no date) (unknown) (unknown) : 1950 (units unknown) (unknown) (unknown) (no date) (unknown) (unknown) Date of Service: 09/27/22 (units unknown) (unknown) (unknown) (no date) (unknown) (unknown) Departure (units unknown) (unknown) (unknown) (no date) (unknown) (unknown) Depression (units unknown) (unknown) (unknown) (no date) (unknown) (unknown) Dictated by: Urvashi Ny M.D. on 09/27/2022 at 16:55 ? ? (units unknown) (unknown) (unknown) (no date) (unknown) (unknown) Discharge Plan (units unknown) (unknown) (unknown) (no date) (unknown) (unknown) Discontinued Medications (units unknown) (unknown) (unknown) (no date) (unknown) (unknown) Dislocation, hip closed (units unknown) (unknown) (unknown) (no date) (unknown) (unknown) Diverticulitis (units unknown) (unknown) (unknown) (no date) (unknown) (unknown) Documented By: CG (units unknown) (unknown) (unknown) (no date) (unknown) (unknown) Documented By: KM (units unknown) (unknown) (unknown) (no date) (unknown) (unknown) Documented By: SPF (units unknown) (unknown) (unknown) (no date) (unknown) (unknown) ED Orders (units unknown) (unknown) (unknown) (no date) (unknown) (unknown) ED Sedation Level: Moderate (Concious) (units unknown) (unknown) (unknown) (no date) (unknown) (unknown) ER Physician: Galina Thapa D.O. (units unknown) (unknown) (unknown) (no date) (unknown) (unknown) EXTREMITIES: Decreas ed range of motion of the left hip, patient has good (units unknown) (unknown) (unknown) (no date) (unknown) (unknown) Emergency Report (units unknown) (unknown) (unknown) (no date) (unknown) (unknown) Encounter type: initial encounter Laterality: left Qualified Code(s): S73.005A (units unknown) (unknown) (unknown) (no date) (unknown) (unknown) Exam Narrative: (units unknown) (unknown) (unknown) (no date) (unknown) (unknown) Exam (units unknown) (unknown) (unknown) (no date) (unknown) (unknown) Extra Strength) (units unknown) (unknown) (unknown) (no date) (unknown) (unknown) Extremity x-ray #1: (units unknown) (unknown) (unknown) (no date) (unknown) (unknown) Extremity x-ray #2: (units unknown) (unknown) (unknown) (no date) (unknown) (unknown) FINDINGS:? (units unknown) (unknown) (unknown) (no date) (unknown) (unknown) GENERAL: Alert and oriented x three, elderly female in moderate distress. (units unknown) (unknown) (unknown) (no date) (unknown) (unknown) GERD (gastroesophage al reflux disease) (units unknown) (unknown) (unknown) (no date) (unknown) (unknown) : No CVA tenderness (units unknown) (unknown) (unknown) (no date) (unknown) (unknown) General (units unknown) (unknown) (unknown) (no date) (unknown) (unknown) HEENT: Head normocephalic, atraumatic, EOMI, pupils reactive, face symmetric, (units unknown) (unknown) (unknown) (no date) (unknown) (unknown) HLD (hyperlipidemia) (units unknown) (unknown) (unknown) (no date) (unknown) (unknown) HPI - Extremity Problem (units unknown) (unknown) (unknown) (no date) (unknown) (unknown) HPI Narrative: (units unknown) (unknown) (unknown) (no date) (unknown) (unknown) Hearing impaired (units unknown) (unknown) (unknown) (no date) (unknown) (unknown) Hip X-Ray (Signed) (units unknown) (unknown) (unknown) (no date) (unknown) (unknown) History of Present Illness (units unknown) (unknown) (unknown) (no date) (unknown) (unknown) History of bladder surgery (units unknown) (unknown) (unknown) (no date) (unknown) (unknown) History of total lef t knee replacement (units unknown) (unknown) (unknown) (no date) (unknown) (unknown) History of total rig ht knee replacement (units unknown) (unknown) (unknown) (no date) (unknown) (unknown) Home Medications (units unknown) (unknown) (unknown) (no date) (unknown) (unknown) Hx of left breast biopsy (units unknown) (unknown) (unknown) (no date) (unknown) (unknown) Hx of right breast biopsy (units unknown) (unknown) (unknown) (no date) (unknown) (unknown) Hx of tonsillectomy (units unknown) (unknown) (unknown) (no date) (unknown) (unknown) Hydromorphone HCl (Hydromorphone 1 Mg Inj) 1 mg IV Q3H PRN (units unknown) (unknown) (unknown) (no date) (unknown) (unknown) IMPRESSION:? Unchang ed appearance of dislocated left hip prosthesis.? No (units unknown) (unknown) (unknown) (no date) (unknown) (unknown) INDICATIONS:? relocation (units unknown) (unknown) (unknown) (no date) (unknown) (unknown) IV Propofol dose (mg ): 150 (units unknown) (unknown) (unknown) (no date) (unknown) (unknown) If unsuccessful to call back if successful knee immobilizer ambulation trial and (units unknown) (unknown) (unknown) (no date) (unknown) (unknown) Imaging Data (units unknown) (unknown) (unknown) (no date) (unknown) (unknown) Indication: fracture/dislocation reduction (units unknown) (unknown) (unknown) (no date) (unknown) (unknown) Infusion: 09/27/22 17:35 Dose: 0 mls/hr (units unknown) (unknown) (unknown) (no date) (unknown) (unknown) Initial Vital Signs (units unknown) (unknown) (unknown) (no date) (unknown) (unknown) Initial Vital Signs: (units unknown) (unknown) (unknown) (no date) (unknown) (unknown) Interventions: Airwa y repositioned, Assist by BVM and Oxygen applied (units unknown) (unknown) (unknown) (no date) (unknown) (unknown) [address] [address] (units unknown) (unknown) (unknown) (no date) (unknown) (unknown) [facility] (units unknown) (unknown) (unknown) (no date) (unknown) (unknown) Joint #1: (units unknown) (unknown) (unknown) (no date) (unknown) (unknown) Joint Aspiration/Injection (Signed) (units unknown) (unknown) (unknown) (no date) (unknown) (unknown) Joint Reduction Location: hip (units unknown) (unknown) (unknown) (no date) (unknown) (unknown) [place] (units unknown) (unknown) (unknown) (no date) (unknown) (unknown) Lab Data (units unknown) (unknown) (unknown) (no date) (unknown) (unknown) Lab Results (units unknown) (unknown) (unknown) (no date) (unknown) (unknown) Labs: (units unknown) (unknown) (unknown) (no date) (unknown) (unknown) Lactated Ringer's (Lactated Ringers) 1,000 mls @ 42 mls/hr IV CONT MINDI (units unknown) (unknown) (unknown) (no date) (unknown) (unknown) Last Admin: 09/27/22 15:41 Dose: 4 mg (units unknown) (unknown) (unknown) (no date) (unknown) (unknown) Last Admin: 09/27/22 16:31 Dose: 150 mg (units unknown) (unknown) (unknown) (no date) (unknown) (unknown) Last Admin: 09/27/22 17:01 Dose: 1 mg (units unknown) (unknown) (unknown) (no date) (unknown) (unknown) Last Admin: 09/27/22 17:16 Dose: Not Given (units unknown) (unknown) (unknown) (no date) (unknown) (unknown) Last Admin: 09/27/22 17:27 Dose: 0.5 mg (units unknown) (unknown) (unknown) (no date) (unknown) (unknown) Last Admin: 09/27/22 19:13 Dose: 42 mls/hr (units unknown) (unknown) (unknown) (no date) (unknown) (unknown) Last Infusion: 09/27/22 18:04 Dose: 0 mls/hr (units unknown) (unknown) (unknown) (no date) (unknown) (unknown) Launch?Image (units unknown) (unknown) (unknown) (no date) (unknown) (unknown) Antonio Perera (units unknown) (unknown) (unknown) (no date) (unknown) (unknown) Loc: ED (units unknown) (unknown) (unknown) (no date) (unknown) (unknown) Lorazepam (Lorazepam 2 Mg/Ml Inj) 0.5 mg IV NOW ONE (units unknown) (unknown) (unknown) (no date) (unknown) (unknown) MDM - Extremity (Nontraumatic) (units unknown) (unknown) (unknown) (no date) (unknown) (unknown) MDM Narrative (units unknown) (unknown) (unknown) (no date) (unknown) (unknown) MR#: [id number] (units unknown) (unknown) (unknown) (no date) (unknown) (unknown) Mallampati Airway Classification: Class II (units unknown) (unknown) (unknown) (no date) (unknown) (unknown) Medical History (units unknown) (unknown) (unknown) (no date) (unknown) (unknown) Medical decision making narrative: (units unknown) (unknown) (unknown) (no date) (unknown) (unknown) Medication Instructions Recorded Confirmed (units unknown) (unknown) (unknown) (no date) (unknown) (unknown) Medication Instructions Recorded (units unknown) (unknown) (unknown) (no date) (unknown) (unknown) Mode of arrival: EMS (units unknown) (unknown) (unknown) (no date) (unknown) (unknown) Morphine Sulfate (Morphine 4 Mg/Ml Inj) 4 mg IV NOW ONE (units unknown) (unknown) (unknown) (no date) (unknown) (unknown) My Impression: (units unknown) (unknown) (unknown) (no date) (unknown) (unknown) NECK: Supple, full range of motion (units unknown) (unknown) (unknown) (no date) (unknown) (unknown) NEUROLOGICAL: Crania l nerves II through XII grossly intact. Moving all (units unknown) (unknown) (unknown) (no date) (unknown) (unknown) Narrative (units unknown) (unknown) (unknown) (no date) (unknown) (unknown) No Known Drug Allergies Allergy Verified 08/13/22 11:07 (units unknown) (unknown) (unknown) (no date) (unknown) (unknown) Ondansetron HCl (Ondansetron 4 Mg/2 Ml Inj) 4 mg IV Q6HR PRN (units unknown) (unknown) (unknown) (no date) (unknown) (unknown) Ordered: (units unknown) (unknown) (unknown) (no date) (unknown) (unknown) Ordering Provider: Galina Thapa D.O. (units unknown) (unknown) (unknown) (no date) (unknown) (unknown) Orders (units unknown) (unknown) (unknown) (no date) (unknown) (unknown) Orthopedic Joint Reduction (units unknown) (unknown) (unknown) (no date) (unknown) (unknown) Orthopedic surgery, Dr. Paulino. Discussed patient is just under 2 weeks out (units unknown) (unknown) (unknown) (no date) (unknown) (unknown) Orthopedic surgery. Patient was very difficult to sedate but would drop her O2 (units unknown) (unknown) (unknown) (no date) (unknown) (unknown) Osteoarthritis (units unknown) (unknown) (unknown) (no date) (unknown) (unknown) Oxygen Delivery Meth od Ambu Bag Ambu Bag (units unknown) (unknown) (unknown) (no date) (unknown) (unknown) Oxygen Delivery Meth od Nasal Cannula Nasal Cannula (units unknown) (unknown) (unknown) (no date) (unknown) (unknown) Oxygen Delivery Meth od Nasal Cannula (units unknown) (unknown) (unknown) (no date) (unknown) (unknown) Oxygen Delivery Meth od Room Air 09/27/22 15:00 (units unknown) (unknown) (unknown) (no date) (unknown) (unknown) Oxygen Delivery Meth od Room Air Nasal Cannula (units unknown) (unknown) (unknown) (no date) (unknown) (unknown) Oxygen Delivery Meth od Room Air (units unknown) (unknown) (unknown) (no date) (unknown) (unknown) Oxygen Delivery Method (units unknown) (unknown) (unknown) (no date) (unknown) (unknown) Oxygen Flow Rate 15 15 (units unknown) (unknown) (unknown) (no date) (unknown) (unknown) Oxygen Flow Rate 2 2 (units unknown) (unknown) (unknown) (no date) (unknown) (unknown) Oxygen Flow Rate 2 (units unknown) (unknown) (unknown) (no date) (unknown) (unknown) Oxygen Flow Rate 6 6 (units unknown) (unknown) (unknown) (no date) (unknown) (unknown) Oxygen Flow Rate 6 (units unknown) (unknown) (unknown) (no date) (unknown) (unknown) Oxygen Flow Rate (units unknown) (unknown) (unknown) (no date) (unknown) (unknown) PRN Reason: Nausea A nd Vomiting (units unknown) (unknown) (unknown) (no date) (unknown) (unknown) PRN Reason: Pain, Moderate (4-6) (units unknown) (unknown) (unknown) (no date) (unknown) (unknown) PROCEDURE:? XR HIP W PEL IF DONE LT 2V (units unknown) (unknown) (unknown) (no date) (unknown) (unknown) Pain/inflammation #9 0 tabs (units unknown) (unknown) (unknown) (no date) (unknown) (unknown) Patient Disposition: Admitted as Observation (units unknown) (unknown) (unknown) (no date) (unknown) (unknown) Patient History (units unknown) (unknown) (unknown) (no date) (unknown) (unknown) Patient Tolerated Procedure: Well and No complications (units unknown) (unknown) (unknown) (no date) (unknown) (unknown) Patient: Barbara Garcia MR#: [id number] (units unknown) (unknown) (unknown) (no date) (unknown) (unknown) Patient: Selene Garcia (units unknown) (unknown) (unknown) (no date) (unknown) (unknown) Point of Care Testing (units unknown) (unknown) (unknown) (no date) (unknown) (unknown) Post Reduction X-Ray Obtained: Yes (units unknown) (unknown) (unknown) (no date) (unknown) (unknown) Post Reduction X-Ray Results: not reduced (units unknown) (unknown) (unknown) (no date) (unknown) (unknown) Post-reduction neuro exam: intact and no change (units unknown) (unknown) (unknown) (no date) (unknown) (unknown) Post-reduction vascular: intact and no change (units unknown) (unknown) (unknown) (no date) (unknown) (unknown) Test Resul ts Negative (units unknown) (unknown) (unknown) (no date) (unknown) (unknown) Preparation: rn cardiac cath applied, pulse oximeter, capnometry used, (units unknown) (unknown) (unknown) (no date) (unknown) (unknown) Previous Rx's (units unknown) (unknown) (unknown) (no date) (unknown) (unknown) Procedural Sedation (units unknown) (unknown) (unknown) (no date) (unknown) (unknown) Procedure: XR hip w pel if done LT 2V (units unknown) (unknown) (unknown) (no date) (unknown) (unknown) Procedures (units unknown) (unknown) (unknown) (no date) (unknown) (unknown) Propofol (Propofol 2 00 Mg/20 Ml Vial) 100 mg IV NOW ONE (units unknown) (unknown) (unknown) (no date) (unknown) (unknown) Propofol (Propofol 2 00 Mg/20 Ml Vial) 150 mg IV NOW ONE (units unknown) (unknown) (unknown) (no date) (unknown) (unknown) Pulse Oximetry 94 (units unknown) (unknown) (unknown) (no date) (unknown) (unknown) Pulse Oximetry 95 09/27/22 15:00 (units unknown) (unknown) (unknown) (no date) (unknown) (unknown) Pulse Oximetry 95 79 L (units unknown) (unknown) (unknown) (no date) (unknown) (unknown) Pulse Oximetry 95 95 (units unknown) (unknown) (unknown) (no date) (unknown) (unknown) Pulse Oximetry 95 99 99 (units unknown) (unknown) (unknown) (no date) (unknown) (unknown) Pulse Oximetry 95 (units unknown) (unknown) (unknown) (no date) (unknown) (unknown) Pulse Oximetry 96 99 (units unknown) (unknown) (unknown) (no date) (unknown) (unknown) Pulse Oximetry 97 97 (units unknown) (unknown) (unknown) (no date) (unknown) (unknown) Pulse Oximetry 98 97 (units unknown) (unknown) (unknown) (no date) (unknown) (unknown) Pulse Oximetry 98 98 (units unknown) (unknown) (unknown) (no date) (unknown) (unknown) Pulse Oximetry 98 (units unknown) (unknown) (unknown) (no date) (unknown) (unknown) Pulse Oximetry 99 99 (units unknown) (unknown) (unknown) (no date) (unknown) (unknown) Pulse Oximetry (units unknown) (unknown) (unknown) (no date) (unknown) (unknown) Pulse Rate 61 15:00 (units unknown) (unknown) (unknown) (no date) (unknown) (unknown) Pulse Rate 61 62 64 (units unknown) (unknown) (unknown) (no date) (unknown) (unknown) Pulse Rate 67 69 (units unknown) (unknown) (unknown) (no date) (unknown) (unknown) Pulse Rate 69 75 (units unknown) (unknown) (unknown) (no date) (unknown) (unknown) Pulse Rate 71 72 (units unknown) (unknown) (unknown) (no date) (unknown) (unknown) Pulse Rate 71 (units unknown) (unknown) (unknown) (no date) (unknown) (unknown) Pulse Rate 72 72 (units unknown) (unknown) (unknown) (no date) (unknown) (unknown) Pulse Rate 73 72 (units unknown) (unknown) (unknown) (no date) (unknown) (unknown) Pulse Rate 73 73 (units unknown) (unknown) (unknown) (no date) (unknown) (unknown) Pulse Rate 74 75 (units unknown) (unknown) (unknown) (no date) (unknown) (unknown) Pulse Rate 74 (units unknown) (unknown) (unknown) (no date) (unknown) (unknown) Pulse Rate (units unknown) (unknown) (unknown) (no date) (unknown) (unknown) Qualifiers: (units unknown) (unknown) (unknown) (no date) (unknown) (unknown) RESPIRATORY: Breath sounds equal bilaterally, no wheezes rales or rhonchi. (units unknown) (unknown) (unknown) (no date) (unknown) (unknown) ROS Unobtainable: Al l systems reviewed + are unremarkable except as noted in HPI (units unknown) (unknown) (unknown) (no date) (unknown) (unknown) Radiologist's Impression: (units unknown) (unknown) (unknown) (no date) (unknown) (unknown) Related Data (units unknown) (unknown) (unknown) (no date) (unknown) (unknown) Respiratory Rate 16 09/27/22 15:00 (units unknown) (unknown) (unknown) (no date) (unknown) (unknown) Respiratory Rate 16 (units unknown) (unknown) (unknown) (no date) (unknown) (unknown) Respiratory Rate 18 21 (units unknown) (unknown) (unknown) (no date) (unknown) (unknown) Respiratory Rate 19 (units unknown) (unknown) (unknown) (no date) (unknown) (unknown) Respiratory Rate 23 21 (units unknown) (unknown) (unknown) (no date) (unknown) (unknown) Respiratory Rate 23 27 H (units unknown) (unknown) (unknown) (no date) (unknown) (unknown) Respiratory Rate 25 H (units unknown) (unknown) (unknown) (no date) (unknown) (unknown) Respiratory Rate 28 H (units unknown) (unknown) (unknown) (no date) (unknown) (unknown) Respiratory Rate 30 H 15 (units unknown) (unknown) (unknown) (no date) (unknown) (unknown) Respiratory Rate 30 H 26 H (units unknown) (unknown) (unknown) (no date) (unknown) (unknown) Respiratory Rate (units unknown) (unknown) (unknown) (no date) (unknown) (unknown) Review of Systems (units unknown) (unknown) (unknown) (no date) (unknown) (unknown) Isidro Govea (units unknown) (unknown) (unknown) (no date) (unknown) (unknown) SARS-CoV-2 (PCR) Negative (Negative) (units unknown) (unknown) (unknown) (no date) (unknown) (unknown) SKIN: Warm, dry, no petechiae, no rashes or lesions. (units unknown) (unknown) (unknown) (no date) (unknown) (unknown) Seasonal allergies (units unknown) (unknown) (unknown) (no date) (unknown) (unknown) She recommends longitudinal traction with little bit anterior, extended knee. (units unknown) (unknown) (unknown) (no date) (unknown) (unknown) Side: left (units unknown) (unknown) (unknown) (no date) (unknown) (unknown) Signed By: (units unknown) (unknown) (unknown) (no date) (unknown) (unknown) Signed (units unknown) (unknown) (unknown) (no date) (unknown) (unknown) Smoking Status: Carmencita rubin smoker (units unknown) (unknown) (unknown) (no date) (unknown) (unknown) Social History (units unknown) (unknown) (unknown) (no date) (unknown) (unknown) Sodium Chloride (Normal Saline 0.9%) 1,000 mls @ 100 mls/hr IV CONT MINDI (units unknown) (unknown) (unknown) (no date) (unknown) (unknown) Soft tissues:? The visualized bowel gas pattern is normal.? No suspicious soft (units unknown) (unknown) (unknown) (no date) (unknown) (unknown) Source: patient and EMS (units unknown) (unknown) (unknown) (no date) (unknown) (unknown) Stated complaint: Lt Hip Pain (units unknown) (unknown) (unknown) (no date) (unknown) (unknown) Stop: 09/27/22 15:32 (units unknown) (unknown) (unknown) (no date) (unknown) (unknown) Stop: 09/27/22 16:11 (units unknown) (unknown) (unknown) (no date) (unknown) (unknown) Stop: 09/27/22 16:21 (units unknown) (unknown) (unknown) (no date) (unknown) (unknown) Stop: 09/27/22 17:19 (units unknown) (unknown) (unknown) (no date) (unknown) (unknown) Substance Use Type: does not use (units unknown) (unknown) (unknown) (no date) (unknown) (unknown) Surgical History (units unknown) (unknown) (unknown) (no date) (unknown) (unknown) TECHNIQUE:? AP pelvi s with lateral view(s) of the left hip(s).? (units unknown) (unknown) (unknown) (no date) (unknown) (unknown) Technique used: traction/counter-tract ion and direct manipulation (units unknown) (unknown) (unknown) (no date) (unknown) (unknown) Temperature 97.8 F 09/27/22 15:00 (units unknown) (unknown) (unknown) (no date) (unknown) (unknown) Temperature 97.8 F (units unknown) (unknown) (unknown) (no date) (unknown) (unknown) Temperature (units unknown) (unknown) (unknown) (no date) (unknown) (unknown) This is a 72-year-ol d female with complaint of left hip pain and a sensation of (units unknown) (unknown) (unknown) (no date) (unknown) (unknown) This is a 72-year-ol d female with history of dyslipidemia, anxiety and left hip (units unknown) (unknown) (unknown) (no date) (unknown) (unknown) Time Out Performed: Yes (units unknown) (unknown) (unknown) (no date) (unknown) (unknown) Time Seen by Provide r: 09/27/22 15:17 (units unknown) (unknown) (unknown) (no date) (unknown) (unknown) Time of Last PO Intake: 12:00 (units unknown) (unknown) (unknown) (no date) (unknown) (unknown) Time out performed: Yes (units unknown) (unknown) (unknown) (no date) (unknown) (unknown) Vital Signs - 8 hr (units unknown) (unknown) (unknown) (no date) (unknown) (unknown) Vital Signs (units unknown) (unknown) (unknown) (no date) (unknown) (unknown) Vital signs: (units unknown) (unknown) (unknown) (no date) (unknown) (unknown) XR hip w pel if done LT 2V Stat (units unknown) (unknown) (unknown) (no date) (unknown) (unknown) XRay Report (units unknown) (unknown) (unknown) (no date) (unknown) (unknown) Misty Cabrera (units unknown) (unknown) (unknown) (no date) (unknown) (unknown) acetaminophen 325 mg tablet 650 mg PO Q6H PRN fever or pain 09/15/22 (units unknown) (unknown) (unknown) (no date) (unknown) (unknown) alcohol intake frequency: holidays/special occasions only (units unknown) (unknown) (unknown) (no date) (unknown) (unknown) alcohol intake: current (units unknown) (unknown) (unknown) (no date) (unknown) (unknown) allergies (units unknown) (unknown) (unknown) (no date) (unknown) (unknown) and below (units unknown) (unknown) (unknown) (no date) (unknown) (unknown) aspirin 81 mg tablet,delayed 81 mg PO BID 6 weeks #84 tabs 09/15/22 (units unknown) (unknown) (unknown) (no date) (unknown) (unknown) aspirin-acetaminophe n- caffeine 250 1 - 2 tab PO BID 08/13/22 09/27/22 (units unknown) (unknown) (unknown) (no date) (unknown) (unknown) atorvastatin 20 mg tablet 20 mg PO BEDTIME 08/13/22 09/27/22 (units unknown) (unknown) (unknown) (no date) (unknown) (unknown) bicarbonate 1.1 gram capsule (units unknown) (unknown) (unknown) (no date) (unknown) (unknown) bilaterally with normal sensation throughout the leg. Cap refill less than 2 (units unknown) (unknown) (unknown) (no date) (unknown) (unknown) calcifications.? (units unknown) (unknown) (unknown) (no date) (unknown) (unknown) caps (units unknown) (unknown) (unknown) (no date) (unknown) (unknown) cetirizine 10 mg tablet (Zyrtec) 10 mg PO DAILY PRN Seasonal 08/13/22 09/27/22 (units unknown) (unknown) (unknown) (no date) (unknown) (unknown) clubbing or edema. Neurovascularly intact (units unknown) (unknown) (unknown) (no date) (unknown) (unknown) dislocated and went back in last week. She was not seen for this. Patient (units unknown) (unknown) (unknown) (no date) (unknown) (unknown) docusate sodium 100 mg capsule 100 mg PO BID PRN constipation #30 09/15/22 (units unknown) (unknown) (unknown) (no date) (unknown) (unknown) escitalopram oxalate 20 mg tablet 20 mg PO DAILY 08/13/22 09/27/22 (units unknown) (unknown) (unknown) (no date) (unknown) (unknown) extremities (units unknown) (unknown) (unknown) (no date) (unknown) (unknown) fentanyl in route which was helpful but has since worn off and she is become (units unknown) (unknown) (unknown) (no date) (unknown) (unknown) follow-up. (units unknown) (unknown) (unknown) (no date) (unknown) (unknown) from hip replacement . Patient is neurovascularly intact. Consultation with (units unknown) (unknown) (unknown) (no date) (unknown) (unknown) from prior surgery films. She feels comfortable with his emptying at this time (units unknown) (unknown) (unknown) (no date) (unknown) (unknown) gross (units unknown) (unknown) (unknown) (no date) (unknown) (unknown) guarding or rebound, rigidity, no mass (units unknown) (unknown) (unknown) (no date) (unknown) (unknown) has been persistent. She states she had 1 episode where she felt like her hip (units unknown) (unknown) (unknown) (no date) (unknown) (unknown) household members: spouse (units unknown) (unknown) (unknown) (no date) (unknown) (unknown) ibuprofen 400 mg tablet 400 mg PO Q4H PRN 09/15/22 (units unknown) (unknown) (unknown) (no date) (unknown) (unknown) increasingly painful. (units unknown) (unknown) (unknown) (no date) (unknown) (unknown) last meal was at noo n she had water approximately the same time. Patient had (units unknown) (unknown) (unknown) (no date) (unknown) (unknown) mg-250 mg-65 mg tabl et (Excedrin (units unknown) (unknown) (unknown) (no date) (unknown) (unknown) moist mucous membranes (units unknown) (unknown) (unknown) (no date) (unknown) (unknown) omeprazole 20 mg-sodium 1 cap PO DAILY PRN GI Upset 08/13/22 09/27/22 (units unknown) (unknown) (unknown) (no date) (unknown) (unknown) or illicit. Dr. Willis River is her orthopedic surgeon. Patient states her (units unknown) (unknown) (unknown) (no date) (unknown) (unknown) osseous fracture is identified. (units unknown) (unknown) (unknown) (no date) (unknown) (unknown) osseous or hardware fracture. (units unknown) (unknown) (unknown) (no date) (unknown) (unknown) plantar and dorsiflexion of the foot on the left, she has 2+ dorsalis pedis (units unknown) (unknown) (unknown) (no date) (unknown) (unknown) pop. X-ray shows wha t appears to be dislocation. Patient is 2 weeks postop (units unknown) (unknown) (unknown) (no date) (unknown) (unknown) prior knee replacement. Patient states no cardiac history. No tobacco, alcohol (units unknown) (unknown) (unknown) (no date) (unknown) (unknown) recontacted plan for possible OR for reduction for ER. Placed in observation. (units unknown) (unknown) (unknown) (no date) (unknown) (unknown) reduction. Several attempts with longitudinal traction, internal external (units unknown) (unknown) (unknown) (no date) (unknown) (unknown) release (units unknown) (unknown) (unknown) (no date) (unknown) (unknown) replacement on 09/14/2022. Patient states she was seated using the toilet when (units unknown) (unknown) (unknown) (no date) (unknown) (unknown) rotation and 1 attem pt at flexion with traction without any success. Patient (units unknown) (unknown) (unknown) (no date) (unknown) (unknown) sats and required BV M and O2 but still would awakened and resists attempts at (units unknown) (unknown) (unknown) (no date) (unknown) (unknown) seconds bilaterally. Patient is shortened and slightly rotated on exam, no (units unknown) (unknown) (unknown) (no date) (unknown) (unknown) she went to stand up and felt a pop in her left hip and had sudden pain which (units unknown) (unknown) (unknown) (no date) (unknown) (unknown) solifenacin 10 mg tablet (Vesicare) 10 mg PO DAILY 08/13/22 09/27/22 (units unknown) (unknown) (unknown) (no date) (unknown) (unknown) states her only othe r surgeries have been prior hip replacement 2 weeks ago and (units unknown) (unknown) (unknown) (no date) (unknown) (unknown) states no numbness o r tingling or weakness. She has pain down the leg. Patient (units unknown) (unknown) (unknown) (no date) (unknown) (unknown) supplemental O2 applied, suction/airway equipment at bedside and IV secured (units unknown) (unknown) (unknown) (no date) (unknown) (unknown) tissue (units unknown) (unknown) (unknown) (no date) (unknown) (unknown) visualized (units unknown) (unknown) (unknown) (no date) (unknown) (unknown) was not felt to to b e safe to continue with sedation. Dr. Paulino was (units unknown) (unknown) (unknown) (no date) (unknown) (unknown) we did discuss that sometimes Dr. River prefers he is herself to be reduced. (units unknown) (unknown) Result panel [id number] (unknown) (no date) (unknown) (unknown) (no value) (units unknown) (unknown) (unknown) (no date) (unknown) (unknown) 09/27/22 1947 (units unknown) (unknown) (unknown) (no date) (unknown) (unknown) 3151 (units unknown) (unknown) (unknown) (no date) (unknown) (unknown) Age/Sex: 72 / F (units unknown) (unknown) (unknown) (no date) (unknown) (unknown) Anesthesia Type: General (units unknown) (unknown) (unknown) (no date) (unknown) (unknown) Anterior left total hip arthroplasty was successfully reduced with longitudinal (units unknown) (unknown) (unknown) (no date) (unknown) (unknown) Attention was turned to the left lower extremity. This was slightly shortened (units unknown) (unknown) (unknown) (no date) (unknown) (unknown) Avoid crossing the legs. Avoid internal and external rotation of the feet, do (units unknown) (unknown) (unknown) (no date) (unknown) (unknown) BMI 39 (units unknown) (unknown) (unknown) (no date) (unknown) (unknown) Click Yes if Unassisted: Yes (units unknown) (unknown) (unknown) (no date) (unknown) (unknown) Close reduction unde r general anesthesia left total hip arthroplasty dislocation (units unknown) (unknown) (unknown) (no date) (unknown) (unknown) Closure Type: not applicable (units unknown) (unknown) (unknown) (no date) (unknown) (unknown) Complications: none (units unknown) (unknown) (unknown) (no date) (unknown) (unknown) Condition: stable (units unknown) (unknown) (unknown) (no date) (unknown) (unknown) : 1950 Acct:[id number] (units unknown) (unknown) (unknown) (no date) (unknown) (unknown) Date of Service: 09/27/22 (units unknown) (unknown) (unknown) (no date) (unknown) (unknown) Date of procedure: 09/27/22 (units unknown) (unknown) (unknown) (no date) (unknown) (unknown) Disposition: PACU (units unknown) (unknown) (unknown) (no date) (unknown) (unknown) Estimated Blood Loss (mL): 0 (units unknown) (unknown) (unknown) (no date) (unknown) (unknown) Findings: (units unknown) (unknown) (unknown) (no date) (unknown) (unknown) Hip was taken throug h range of motion and was grossly stable. At this point the (units unknown) (unknown) (unknown) (no date) (unknown) (unknown) Indications: (units unknown) (unknown) (unknown) (no date) (unknown) (unknown) [address] [address] (units unknown) (unknown) (unknown) (no date) (unknown) (unknown) Operative Date/Time/Diagnoses (units unknown) (unknown) (unknown) (no date) (unknown) (unknown) Operative Note (units unknown) (unknown) (unknown) (no date) (unknown) (unknown) Operative Notes (units unknown) (unknown) (unknown) (no date) (unknown) (unknown) Patient is a 72-year-old female that had a recent posterior approach left total (units unknown) (unknown) (unknown) (no date) (unknown) (unknown) Patient was seen in the preoperative area the site of surgery was marked and (units unknown) (unknown) (unknown) (no date) (unknown) (unknown) Patient: Barbara Garcia MR#: [id number] (units unknown) (unknown) (unknown) (no date) (unknown) (unknown) Plan for aftercare: (units unknown) (unknown) (unknown) (no date) (unknown) (unknown) Post-op diagnosis: same (units unknown) (unknown) (unknown) (no date) (unknown) (unknown) Post-operative (units unknown) (unknown) (unknown) (no date) (unknown) (unknown) Pre-op diagnosis: Dislocation left total hip arthroplasty (units unknown) (unknown) (unknown) (no date) (unknown) (unknown) Procedure + Clinicians (units unknown) (unknown) (unknown) (no date) (unknown) (unknown) Procedure in detail: (units unknown) (unknown) (unknown) (no date) (unknown) (unknown) Procedure: (units unknown) (unknown) (unknown) (no date) (unknown) (unknown) Provider: Carolee Paulino MD (units unknown) (unknown) (unknown) (no date) (unknown) (unknown) Same procedure as scheduled: Yes (units unknown) (unknown) (unknown) (no date) (unknown) (unknown) She was found to hav e an anterior dislocation of her left hip prosthesis. She (units unknown) (unknown) (unknown) (no date) (unknown) (unknown) Signed By:<Electronically signed by Carolee Paulino MD> (units unknown) (unknown) (unknown) (no date) (unknown) (unknown) Specimen(s): none sent (units unknown) (unknown) (unknown) (no date) (unknown) (unknown) Surgeon: Carolee Paulino (units unknown) (unknown) (unknown) (no date) (unknown) (unknown) Time of procedure: 19:40 (units unknown) (unknown) (unknown) (no date) (unknown) (unknown) Tourniquet time (min ): 0 (units unknown) (unknown) (unknown) (no date) (unknown) (unknown) Weightbear as tolerated. Dislocation precautions: Avoid bending past 90?. (units unknown) (unknown) (unknown) (no date) (unknown) (unknown) additional procedures,cardiopulmo nary complications and . The patient (units unknown) (unknown) (unknown) (no date) (unknown) (unknown) and samaritan of l eg lengths and alignment. Intraoperative fluoroscopy (units unknown) (unknown) (unknown) (no date) (unknown) (unknown) and was indicated fo r closed reduction under general anesthetic in the operating (units unknown) (unknown) (unknown) (no date) (unknown) (unknown) anesthesia team. General anesthetic was administered. The patient was then (units unknown) (unknown) (unknown) (no date) (unknown) (unknown) anesthetic was terminated. The patient was woken from anesthesia and taken to (units unknown) (unknown) (unknown) (no date) (unknown) (unknown) complications, persistence of pain, damage to nerves and blood vessels, need for (units unknown) (unknown) (unknown) (no date) (unknown) (unknown) confirmed successful reduction on the AP, frog lateral and live fluoroscopy. (units unknown) (unknown) (unknown) (no date) (unknown) (unknown) confirming the patient's side and site of procedure. No antibiotics were (units unknown) (unknown) (unknown) (no date) (unknown) (unknown) elected to proceed. Consent was signed. (units unknown) (unknown) (unknown) (no date) (unknown) (unknown) expressed a thorough understanding of the risks and benefits of surgery and has (units unknown) (unknown) (unknown) (no date) (unknown) (unknown) hip arthroplasty. Mila sherman was standing up today and felt a pop and pain in her hip. (units unknown) (unknown) (unknown) (no date) (unknown) (unknown) include but are not limited to unsuccessful reduction, fracture, hardware (units unknown) (unknown) (unknown) (no date) (unknown) (unknown) indicated for this closed procedure. (units unknown) (unknown) (unknown) (no date) (unknown) (unknown) informed consent confirmed. She was brought back to the operating room by the (units unknown) (unknown) (unknown) (no date) (unknown) (unknown) just a touch of external rotation compared to the contralateral side. Longitudi (units unknown) (unknown) (unknown) (no date) (unknown) (unknown) lateral and live intraoperative fluoroscopy (units unknown) (unknown) (unknown) (no date) (unknown) (unknown) moved to the operati ve table. A formal time-out procedure was performed (units unknown) (unknown) (unknown) (no date) (unknown) (unknown) nal traction was roger en on the injured extremity with counter traction on the (units unknown) (unknown) (unknown) (no date) (unknown) (unknown) not turn across the legs. Walk with the toes pointed straight forward. Follow (units unknown) (unknown) (unknown) (no date) (unknown) (unknown) patient and given th e opportunity to ask questions. The risks of surgery (units unknown) (unknown) (unknown) (no date) (unknown) (unknown) pelvis. After successful muscle relaxation the there was a successful reduction (units unknown) (unknown) (unknown) (no date) (unknown) (unknown) recovery room in [place] emergency department. There were no immediate complications. (units unknown) (unknown) (unknown) (no date) (unknown) (unknown) room. The risks and benefits of the procedure have been discussed with the (units unknown) (unknown) (unknown) (no date) (unknown) (unknown) traction and knee extension. Reduction was concentric and confirmed on AP and (units unknown) (unknown) (unknown) (no date) (unknown) (unknown) up as scheduled with Dr. River (units unknown) (unknown) (unknown) (no date) (unknown) (unknown) was unable to be successfully sedated for closed reduction in the emergency room (units unknown) (unknown) Result panel [id number] (unknown) (no date) (unknown) (unknown) (no value) (units unknown) (unknown) (unknown) (no date) (unknown) (unknown) #90 tabs (units unknown) (unknown) (unknown) (no date) (unknown) (unknown) (Zegerid) (units unknown) (unknown) (unknown) (no date) (unknown) (unknown) + for hip dislocation. (units unknown) (unknown) (unknown) (no date) (unknown) (unknown) - Unspecified dislocation of left hip, initial encounter (units unknown) (unknown) (unknown) (no date) (unknown) (unknown) 09/14/22 (units unknown) (unknown) (unknown) (no date) (unknown) (unknown) 09/27/22 15:04 (units unknown) (unknown) (unknown) (no date) (unknown) (unknown) 09/27/22 15:45 (units unknown) (unknown) (unknown) (no date) (unknown) (unknown) 09/27/22 16:35 (units unknown) (unknown) (unknown) (no date) (unknown) (unknown) 09/27/22 Range/Units (units unknown) (unknown) (unknown) (no date) (unknown) (unknown) 09/27/22 (units unknown) (unknown) (unknown) (no date) (unknown) (unknown) 03/15/22 (units unknown) (unknown) (unknown) (no date) (unknown) (unknown) [address] [place] [address] (units unknown) (unknown) (unknown) (no date) (unknown) (unknown) 15:00 09/27/22 (units unknown) (unknown) (unknown) (no date) (unknown) (unknown) 15:39 09/27/22 (units unknown) (unknown) (unknown) (no date) (unknown) (unknown) 15:45 (units unknown) (unknown) (unknown) (no date) (unknown) (unknown) 15:56 09/27/22 (units unknown) (unknown) (unknown) (no date) (unknown) (unknown) 15:56 (units unknown) (unknown) (unknown) (no date) (unknown) (unknown) 16:00 09/27/22 (units unknown) (unknown) (unknown) (no date) (unknown) (unknown) 16:01 09/27/22 (units unknown) (unknown) (unknown) (no date) (unknown) (unknown) 16:01 (units unknown) (unknown) (unknown) (no date) (unknown) (unknown) 16:21 09/27/22 (units unknown) (unknown) (unknown) (no date) (unknown) (unknown) 16:21 (units unknown) (unknown) (unknown) (no date) (unknown) (unknown) 16:26 09/27/22 (units unknown) (unknown) (unknown) (no date) (unknown) (unknown) 16:26 (units unknown) (unknown) (unknown) (no date) (unknown) (unknown) 16:30 09/27/22 (units unknown) (unknown) (unknown) (no date) (unknown) (unknown) 16:32 09/27/22 (units unknown) (unknown) (unknown) (no date) (unknown) (unknown) 16:32 (units unknown) (unknown) (unknown) (no date) (unknown) (unknown) 16:35 09/27/22 (units unknown) (unknown) (unknown) (no date) (unknown) (unknown) 16:38 09/27/22 (units unknown) (unknown) (unknown) (no date) (unknown) (unknown) 16:40 09/27/22 (units unknown) (unknown) (unknown) (no date) (unknown) (unknown) 16:40 (units unknown) (unknown) (unknown) (no date) (unknown) (unknown) 16:45 09/27/22 (units unknown) (unknown) (unknown) (no date) (unknown) (unknown) 16:45 (units unknown) (unknown) (unknown) (no date) (unknown) (unknown) 16:50 09/27/22 (units unknown) (unknown) (unknown) (no date) (unknown) (unknown) 16:55 09/27/22 (units unknown) (unknown) (unknown) (no date) (unknown) (unknown) 16:55 (units unknown) (unknown) (unknown) (no date) (unknown) (unknown) 17:00 09/27/22 (units unknown) (unknown) (unknown) (no date) (unknown) (unknown) 17:00 (units unknown) (unknown) (unknown) (no date) (unknown) (unknown) 17:05 09/27/22 (units unknown) (unknown) (unknown) (no date) (unknown) (unknown) 17:10 09/27/22 (units unknown) (unknown) (unknown) (no date) (unknown) (unknown) 17:10 (units unknown) (unknown) (unknown) (no date) (unknown) (unknown) 17:15 09/27/22 (units unknown) (unknown) (unknown) (no date) (unknown) (unknown) 17:15 (units unknown) (unknown) (unknown) (no date) (unknown) (unknown) 17:20 09/27/22 (units unknown) (unknown) (unknown) (no date) (unknown) (unknown) 17:26 (units unknown) (unknown) (unknown) (no date) (unknown) (unknown) 3151 (units unknown) (unknown) (unknown) (no date) (unknown) (unknown) ? (units unknown) (unknown) (unknown) (no date) (unknown) (unknown) ABDOMEN: Soft, nontender. Normoactive bowel sounds all 4 quadrants. No (units unknown) (unknown) (unknown) (no date) (unknown) (unknown) ASA Class: II (units unknown) (unknown) (unknown) (no date) (unknown) (unknown) Accession Number: [id number] ?? (units unknown) (unknown) (unknown) (no date) (unknown) (unknown) Acct:[id number] (units unknown) (unknown) (unknown) (no date) (unknown) (unknown) Admin: 09/27/22 17:1 0 Dose: 100 mls/hr (units unknown) (unknown) (unknown) (no date) (unknown) (unknown) Admit Date/Time: 09/27/22 17:28 (units unknown) (unknown) (unknown) (no date) (unknown) (unknown) Admit Provider: Carolee Paulino (units unknown) (unknown) (unknown) (no date) (unknown) (unknown) Age/Sex: 72 / F (units unknown) (unknown) (unknown) (no date) (unknown) (unknown) Allergies (units unknown) (unknown) (unknown) (no date) (unknown) (unknown) Allergy/AdvReac Type Severity Reaction Status Date / Time (units unknown) (unknown) (unknown) (no date) (unknown) (unknown) ARIAN [place] [id number] (units unknown) (unknown) (unknown) (no date) (unknown) (unknown) Approved by: Urv[place] Ny M.D. on 09/27/2022 at 16:56?? (units unknown) (unknown) (unknown) (no date) (unknown) (unknown) Attempted procedural sedation with left hip reduction after discussion with (units unknown) (unknown) (unknown) (no date) (unknown) (unknown) Blood Pressure 131/65 (units unknown) (unknown) (unknown) (no date) (unknown) (unknown) Blood Pressure 138/7 0 158/81 H (units unknown) (unknown) (unknown) (no date) (unknown) (unknown) Blood Pressure 142/7 5 H (units unknown) (unknown) (unknown) (no date) (unknown) (unknown) Blood Pressure 153/7 2 H 09/27/22 15:00 (units unknown) (unknown) (unknown) (no date) (unknown) (unknown) Blood Pressure 153/7 2 H (units unknown) (unknown) (unknown) (no date) (unknown) (unknown) Blood Pressure 153/8 1 H (units unknown) (unknown) (unknown) (no date) (unknown) (unknown) Blood Pressure 154/7 9 H (units unknown) (unknown) (unknown) (no date) (unknown) (unknown) Blood Pressure 155/8 2 H 157/84 H (units unknown) (unknown) (unknown) (no date) (unknown) (unknown) Blood Pressure 156/7 9 H 146/76 H (units unknown) (unknown) (unknown) (no date) (unknown) (unknown) Blood Pressure 159/7 5 H (units unknown) (unknown) (unknown) (no date) (unknown) (unknown) Blood Pressure 160/9 9 H 152/68 H (units unknown) (unknown) (unknown) (no date) (unknown) (unknown) Blood Pressure 166/9 3 H (units unknown) (unknown) (unknown) (no date) (unknown) (unknown) Blood Pressure 174/8 2 H (units unknown) (unknown) (unknown) (no date) (unknown) (unknown) Blood Pressure 197/8 4 H (units unknown) (unknown) (unknown) (no date) (unknown) (unknown) Bones:? There remain s superior dislocation of the left hip arthroplasty.? No (units unknown) (unknown) (unknown) (no date) (unknown) (unknown) CARDIOVASCULAR: Regular rate and rhythm without murmurs, rubs or gallops. (units unknown) (unknown) (unknown) (no date) (unknown) (unknown) COMPARISON:[facility], CR, XR HIP W PEL IF DONE LT 2V, 09/27/2022, 15:02. (units unknown) (unknown) (unknown) (no date) (unknown) (unknown) COVID19 -Nasal RAPID Stat (units unknown) (unknown) (unknown) (no date) (unknown) (unknown) Chief complaint: Extremity Problem,Nontraumatic (units unknown) (unknown) (unknown) (no date) (unknown) (unknown) Urv[place] Ny (units unknown) (unknown) (unknown) (no date) (unknown) (unknown) Clinical Impression: (units unknown) (unknown) (unknown) (no date) (unknown) (unknown) Close (units unknown) (unknown) (unknown) (no date) (unknown) (unknown) Complications: hypoventilation (hypoxia) (units unknown) (unknown) (unknown) (no date) (unknown) (unknown) Consent signed: Yes (units unknown) (unknown) (unknown) (no date) (unknown) (unknown) Course (units unknown) (unknown) (unknown) (no date) (unknown) (unknown) Covid swab is negative. (units unknown) (unknown) (unknown) (no date) (unknown) (unknown) : 1950 Acct:[id number] (units unknown) (unknown) (unknown) (no date) (unknown) (unknown) : 1950 (units unknown) (unknown) (unknown) (no date) (unknown) (unknown) Date of Service: 09/27/22 (units unknown) (unknown) (unknown) (no date) (unknown) (unknown) Departure (units unknown) (unknown) (unknown) (no date) (unknown) (unknown) Depression (units unknown) (unknown) (unknown) (no date) (unknown) (unknown) Dictated by: Urvashi Ny M.D. on 09/27/2022 at 16:55 ? ? (units unknown) (unknown) (unknown) (no date) (unknown) (unknown) Discharge Plan (units unknown) (unknown) (unknown) (no date) (unknown) (unknown) Discontinued Medications (units unknown) (unknown) (unknown) (no date) (unknown) (unknown) Dislocation, hip closed (units unknown) (unknown) (unknown) (no date) (unknown) (unknown) Diverticulitis (units unknown) (unknown) (unknown) (no date) (unknown) (unknown) Documented By: CG (units unknown) (unknown) (unknown) (no date) (unknown) (unknown) Documented By: KM (units unknown) (unknown) (unknown) (no date) (unknown) (unknown) Documented By: SPF (units unknown) (unknown) (unknown) (no date) (unknown) (unknown) ED Orders (units unknown) (unknown) (unknown) (no date) (unknown) (unknown) ED Sedation Level: Moderate (Concious) (units unknown) (unknown) (unknown) (no date) (unknown) (unknown) ER Physician: Galina Thapa D.O. (units unknown) (unknown) (unknown) (no date) (unknown) (unknown) EXTREMITIES: Decreas ed range of motion of the left hip, patient has good (units unknown) (unknown) (unknown) (no date) (unknown) (unknown) Emergency Report (units unknown) (unknown) (unknown) (no date) (unknown) (unknown) Encounter type: initial encounter Laterality: left Qualified Code(s): S73.005A (units unknown) (unknown) (unknown) (no date) (unknown) (unknown) Exam Narrative: (units unknown) (unknown) (unknown) (no date) (unknown) (unknown) Exam (units unknown) (unknown) (unknown) (no date) (unknown) (unknown) Extra Strength) (units unknown) (unknown) (unknown) (no date) (unknown) (unknown) Extremity x-ray #1: (units unknown) (unknown) (unknown) (no date) (unknown) (unknown) Extremity x-ray #2: (units unknown) (unknown) (unknown) (no date) (unknown) (unknown) FINDINGS:? (units unknown) (unknown) (unknown) (no date) (unknown) (unknown) GENERAL: Alert and oriented x three, elderly female in moderate distress. (units unknown) (unknown) (unknown) (no date) (unknown) (unknown) GERD (gastroesophage al reflux disease) (units unknown) (unknown) (unknown) (no date) (unknown) (unknown) : No CVA tenderness (units unknown) (unknown) (unknown) (no date) (unknown) (unknown) General (units unknown) (unknown) (unknown) (no date) (unknown) (unknown) HEENT: Head normocephalic, atraumatic, EOMI, pupils reactive, face symmetric, (units unknown) (unknown) (unknown) (no date) (unknown) (unknown) HLD (hyperlipidemia) (units unknown) (unknown) (unknown) (no date) (unknown) (unknown) HPI - Extremity Problem (units unknown) (unknown) (unknown) (no date) (unknown) (unknown) HPI Narrative: (units unknown) (unknown) (unknown) (no date) (unknown) (unknown) Hearing impaired (units unknown) (unknown) (unknown) (no date) (unknown) (unknown) Hip X-Ray (Signed) (units unknown) (unknown) (unknown) (no date) (unknown) (unknown) History of Present Illness (units unknown) (unknown) (unknown) (no date) (unknown) (unknown) History of bladder surgery (units unknown) (unknown) (unknown) (no date) (unknown) (unknown) History of total lef t knee replacement (units unknown) (unknown) (unknown) (no date) (unknown) (unknown) History of total rig ht knee replacement (units unknown) (unknown) (unknown) (no date) (unknown) (unknown) Home Medications (units unknown) (unknown) (unknown) (no date) (unknown) (unknown) Hx of left breast biopsy (units unknown) (unknown) (unknown) (no date) (unknown) (unknown) Hx of right breast biopsy (units unknown) (unknown) (unknown) (no date) (unknown) (unknown) Hx of tonsillectomy (units unknown) (unknown) (unknown) (no date) (unknown) (unknown) Hydromorphone HCl (Hydromorphone 1 Mg Inj) 1 mg IV Q3H PRN (units unknown) (unknown) (unknown) (no date) (unknown) (unknown) IMPRESSION:? Unchang ed appearance of dislocated left hip prosthesis.? No (units unknown) (unknown) (unknown) (no date) (unknown) (unknown) INDICATIONS:? relocation (units unknown) (unknown) (unknown) (no date) (unknown) (unknown) IV Propofol dose (mg ): 150 (units unknown) (unknown) (unknown) (no date) (unknown) (unknown) If unsuccessful to call back if successful knee immobilizer ambulation trial and (units unknown) (unknown) (unknown) (no date) (unknown) (unknown) Imaging Data (units unknown) (unknown) (unknown) (no date) (unknown) (unknown) Indication: fracture/dislocation reduction (units unknown) (unknown) (unknown) (no date) (unknown) (unknown) Infusion: 09/27/22 17:35 Dose: 0 mls/hr (units unknown) (unknown) (unknown) (no date) (unknown) (unknown) Initial Vital Signs (units unknown) (unknown) (unknown) (no date) (unknown) (unknown) Initial Vital Signs: (units unknown) (unknown) (unknown) (no date) (unknown) (unknown) Interventions: Airwa y repositioned, Assist by BVM and Oxygen applied (units unknown) (unknown) (unknown) (no date) (unknown) (unknown) [address] [address] (units unknown) (unknown) (unknown) (no date) (unknown) (unknown) [facility] (units unknown) (unknown) (unknown) (no date) (unknown) (unknown) Joint #1: (units unknown) (unknown) (unknown) (no date) (unknown) (unknown) Joint Aspiration/Injection (Signed) (units unknown) (unknown) (unknown) (no date) (unknown) (unknown) Joint Reduction Location: hip (units unknown) (unknown) (unknown) (no date) (unknown) (unknown) [place] (units unknown) (unknown) (unknown) (no date) (unknown) (unknown) Lab Data (units unknown) (unknown) (unknown) (no date) (unknown) (unknown) Lab Results (units unknown) (unknown) (unknown) (no date) (unknown) (unknown) Labs: (units unknown) (unknown) (unknown) (no date) (unknown) (unknown) Lactated Ringer's (Lactated Ringers) 1,000 mls @ 42 mls/hr IV CONT MINDI (units unknown) (unknown) (unknown) (no date) (unknown) (unknown) Last Admin: 09/27/22 15:41 Dose: 4 mg (units unknown) (unknown) (unknown) (no date) (unknown) (unknown) Last Admin: 09/27/22 16:31 Dose: 150 mg (units unknown) (unknown) (unknown) (no date) (unknown) (unknown) Last Admin: 09/27/22 17:01 Dose: 1 mg (units unknown) (unknown) (unknown) (no date) (unknown) (unknown) Last Admin: 09/27/22 17:16 Dose: Not Given (units unknown) (unknown) (unknown) (no date) (unknown) (unknown) Last Admin: 09/27/22 17:27 Dose: 0.5 mg (units unknown) (unknown) (unknown) (no date) (unknown) (unknown) Last Admin: 09/27/22 19:13 Dose: 42 mls/hr (units unknown) (unknown) (unknown) (no date) (unknown) (unknown) Last Infusion: 09/27/22 18:04 Dose: 0 mls/hr (units unknown) (unknown) (unknown) (no date) (unknown) (unknown) Launch?Image (units unknown) (unknown) (unknown) (no date) (unknown) (unknown) Antonio Perera (units unknown) (unknown) (unknown) (no date) (unknown) (unknown) Loc: ED (units unknown) (unknown) (unknown) (no date) (unknown) (unknown) Lorazepam (Lorazepam 2 Mg/Ml Inj) 0.5 mg IV NOW ONE (units unknown) (unknown) (unknown) (no date) (unknown) (unknown) MDM - Extremity (Nontraumatic) (units unknown) (unknown) (unknown) (no date) (unknown) (unknown) MDM Narrative (units unknown) (unknown) (unknown) (no date) (unknown) (unknown) MR#: [id number] (units unknown) (unknown) (unknown) (no date) (unknown) (unknown) Mallampati Airway Classification: Class II (units unknown) (unknown) (unknown) (no date) (unknown) (unknown) Medical History (units unknown) (unknown) (unknown) (no date) (unknown) (unknown) Medical decision making narrative: (units unknown) (unknown) (unknown) (no date) (unknown) (unknown) Medication Instructions Recorded Confirmed (units unknown) (unknown) (unknown) (no date) (unknown) (unknown) Medication Instructions Recorded (units unknown) (unknown) (unknown) (no date) (unknown) (unknown) Mode of arrival: EMS (units unknown) (unknown) (unknown) (no date) (unknown) (unknown) Morphine Sulfate (Morphine 4 Mg/Ml Inj) 4 mg IV NOW ONE (units unknown) (unknown) (unknown) (no date) (unknown) (unknown) My Impression: (units unknown) (unknown) (unknown) (no date) (unknown) (unknown) NECK: Supple, full range of motion (units unknown) (unknown) (unknown) (no date) (unknown) (unknown) NEUROLOGICAL: Crania l nerves II through XII grossly intact. Moving all (units unknown) (unknown) (unknown) (no date) (unknown) (unknown) Narrative (units unknown) (unknown) (unknown) (no date) (unknown) (unknown) No Known Drug Allergies Allergy Verified 08/13/22 11:07 (units unknown) (unknown) (unknown) (no date) (unknown) (unknown) Ondansetron HCl (Ondansetron 4 Mg/2 Ml Inj) 4 mg IV Q6HR PRN (units unknown) (unknown) (unknown) (no date) (unknown) (unknown) Ordered: (units unknown) (unknown) (unknown) (no date) (unknown) (unknown) Ordering Provider: Galina Thapa D.O. (units unknown) (unknown) (unknown) (no date) (unknown) (unknown) Orders (units unknown) (unknown) (unknown) (no date) (unknown) (unknown) Orthopedic Joint Reduction (units unknown) (unknown) (unknown) (no date) (unknown) (unknown) Orthopedic surgery, Dr. Paulino. Discussed patient is just under 2 weeks out (units unknown) (unknown) (unknown) (no date) (unknown) (unknown) Orthopedic surgery. Patient was very difficult to sedate but would drop her O2 (units unknown) (unknown) (unknown) (no date) (unknown) (unknown) Osteoarthritis (units unknown) (unknown) (unknown) (no date) (unknown) (unknown) Oxygen Delivery Meth od Ambu Bag Ambu Bag (units unknown) (unknown) (unknown) (no date) (unknown) (unknown) Oxygen Delivery Meth od Nasal Cannula Nasal Cannula (units unknown) (unknown) (unknown) (no date) (unknown) (unknown) Oxygen Delivery Meth od Nasal Cannula (units unknown) (unknown) (unknown) (no date) (unknown) (unknown) Oxygen Delivery Meth od Room Air 09/27/22 15:00 (units unknown) (unknown) (unknown) (no date) (unknown) (unknown) Oxygen Delivery Meth od Room Air Nasal Cannula (units unknown) (unknown) (unknown) (no date) (unknown) (unknown) Oxygen Delivery Meth od Room Air (units unknown) (unknown) (unknown) (no date) (unknown) (unknown) Oxygen Delivery Method (units unknown) (unknown) (unknown) (no date) (unknown) (unknown) Oxygen Flow Rate 15 15 (units unknown) (unknown) (unknown) (no date) (unknown) (unknown) Oxygen Flow Rate 2 2 (units unknown) (unknown) (unknown) (no date) (unknown) (unknown) Oxygen Flow Rate 2 (units unknown) (unknown) (unknown) (no date) (unknown) (unknown) Oxygen Flow Rate 6 6 (units unknown) (unknown) (unknown) (no date) (unknown) (unknown) Oxygen Flow Rate 6 (units unknown) (unknown) (unknown) (no date) (unknown) (unknown) Oxygen Flow Rate (units unknown) (unknown) (unknown) (no date) (unknown) (unknown) PRN Reason: Nausea A nd Vomiting (units unknown) (unknown) (unknown) (no date) (unknown) (unknown) PRN Reason: Pain, Moderate (4-6) (units unknown) (unknown) (unknown) (no date) (unknown) (unknown) PROCEDURE:? XR HIP W PEL IF DONE LT 2V (units unknown) (unknown) (unknown) (no date) (unknown) (unknown) Pain/inflammation #9 0 tabs (units unknown) (unknown) (unknown) (no date) (unknown) (unknown) Patient Disposition: Admitted as Observation (units unknown) (unknown) (unknown) (no date) (unknown) (unknown) Patient History (units unknown) (unknown) (unknown) (no date) (unknown) (unknown) Patient Tolerated Procedure: Well and No complications (units unknown) (unknown) (unknown) (no date) (unknown) (unknown) Patient: Barbara Garcia MR#: [id number] (units unknown) (unknown) (unknown) (no date) (unknown) (unknown) Patient: Selene Garcia (units unknown) (unknown) (unknown) (no date) (unknown) (unknown) Point of Care Testing (units unknown) (unknown) (unknown) (no date) (unknown) (unknown) Post Reduction X-Ray Obtained: Yes (units unknown) (unknown) (unknown) (no date) (unknown) (unknown) Post Reduction X-Ray Results: not reduced (units unknown) (unknown) (unknown) (no date) (unknown) (unknown) Post-reduction neuro exam: intact and no change (units unknown) (unknown) (unknown) (no date) (unknown) (unknown) Post-reduction vascular: intact and no change (units unknown) (unknown) (unknown) (no date) (unknown) (unknown) Test Resul ts Negative (units unknown) (unknown) (unknown) (no date) (unknown) (unknown) Preparation: rn cardiac cath applied, pulse oximeter, capnometry used, (units unknown) (unknown) (unknown) (no date) (unknown) (unknown) Previous Rx's (units unknown) (unknown) (unknown) (no date) (unknown) (unknown) Procedural Sedation (units unknown) (unknown) (unknown) (no date) (unknown) (unknown) Procedure: XR hip w pel if done LT 2V (units unknown) (unknown) (unknown) (no date) (unknown) (unknown) Procedures (units unknown) (unknown) (unknown) (no date) (unknown) (unknown) Propofol (Propofol 2 00 Mg/20 Ml Vial) 100 mg IV NOW ONE (units unknown) (unknown) (unknown) (no date) (unknown) (unknown) Propofol (Propofol 2 00 Mg/20 Ml Vial) 150 mg IV NOW ONE (units unknown) (unknown) (unknown) (no date) (unknown) (unknown) Pulse Oximetry 94 (units unknown) (unknown) (unknown) (no date) (unknown) (unknown) Pulse Oximetry 95 09/27/22 15:00 (units unknown) (unknown) (unknown) (no date) (unknown) (unknown) Pulse Oximetry 95 79 L (units unknown) (unknown) (unknown) (no date) (unknown) (unknown) Pulse Oximetry 95 95 (units unknown) (unknown) (unknown) (no date) (unknown) (unknown) Pulse Oximetry 95 99 99 (units unknown) (unknown) (unknown) (no date) (unknown) (unknown) Pulse Oximetry 95 (units unknown) (unknown) (unknown) (no date) (unknown) (unknown) Pulse Oximetry 96 99 (units unknown) (unknown) (unknown) (no date) (unknown) (unknown) Pulse Oximetry 97 97 (units unknown) (unknown) (unknown) (no date) (unknown) (unknown) Pulse Oximetry 98 97 (units unknown) (unknown) (unknown) (no date) (unknown) (unknown) Pulse Oximetry 98 98 (units unknown) (unknown) (unknown) (no date) (unknown) (unknown) Pulse Oximetry 98 (units unknown) (unknown) (unknown) (no date) (unknown) (unknown) Pulse Oximetry 99 99 (units unknown) (unknown) (unknown) (no date) (unknown) (unknown) Pulse Oximetry (units unknown) (unknown) (unknown) (no date) (unknown) (unknown) Pulse Rate 61 15:00 (units unknown) (unknown) (unknown) (no date) (unknown) (unknown) Pulse Rate 61 62 64 (units unknown) (unknown) (unknown) (no date) (unknown) (unknown) Pulse Rate 67 69 (units unknown) (unknown) (unknown) (no date) (unknown) (unknown) Pulse Rate 69 75 (units unknown) (unknown) (unknown) (no date) (unknown) (unknown) Pulse Rate 71 72 (units unknown) (unknown) (unknown) (no date) (unknown) (unknown) Pulse Rate 71 (units unknown) (unknown) (unknown) (no date) (unknown) (unknown) Pulse Rate 72 72 (units unknown) (unknown) (unknown) (no date) (unknown) (unknown) Pulse Rate 73 72 (units unknown) (unknown) (unknown) (no date) (unknown) (unknown) Pulse Rate 73 73 (units unknown) (unknown) (unknown) (no date) (unknown) (unknown) Pulse Rate 74 75 (units unknown) (unknown) (unknown) (no date) (unknown) (unknown) Pulse Rate 74 (units unknown) (unknown) (unknown) (no date) (unknown) (unknown) Pulse Rate (units unknown) (unknown) (unknown) (no date) (unknown) (unknown) Qualifiers: (units unknown) (unknown) (unknown) (no date) (unknown) (unknown) RESPIRATORY: Breath sounds equal bilaterally, no wheezes rales or rhonchi. (units unknown) (unknown) (unknown) (no date) (unknown) (unknown) ROS Unobtainable: Al l systems reviewed + are unremarkable except as noted in HPI (units unknown) (unknown) (unknown) (no date) (unknown) (unknown) Radiologist's Impression: (units unknown) (unknown) (unknown) (no date) (unknown) (unknown) Related Data (units unknown) (unknown) (unknown) (no date) (unknown) (unknown) Respiratory Rate 16 09/27/22 15:00 (units unknown) (unknown) (unknown) (no date) (unknown) (unknown) Respiratory Rate 16 (units unknown) (unknown) (unknown) (no date) (unknown) (unknown) Respiratory Rate 18 21 (units unknown) (unknown) (unknown) (no date) (unknown) (unknown) Respiratory Rate 19 (units unknown) (unknown) (unknown) (no date) (unknown) (unknown) Respiratory Rate 23 21 (units unknown) (unknown) (unknown) (no date) (unknown) (unknown) Respiratory Rate 23 27 H (units unknown) (unknown) (unknown) (no date) (unknown) (unknown) Respiratory Rate 25 H (units unknown) (unknown) (unknown) (no date) (unknown) (unknown) Respiratory Rate 28 H (units unknown) (unknown) (unknown) (no date) (unknown) (unknown) Respiratory Rate 30 H 15 (units unknown) (unknown) (unknown) (no date) (unknown) (unknown) Respiratory Rate 30 H 26 H (units unknown) (unknown) (unknown) (no date) (unknown) (unknown) Respiratory Rate (units unknown) (unknown) (unknown) (no date) (unknown) (unknown) Review of Systems (units unknown) (unknown) (unknown) (no date) (unknown) (unknown) Isidro Govea (units unknown) (unknown) (unknown) (no date) (unknown) (unknown) SARS-CoV-2 (PCR) Negative (Negative) (units unknown) (unknown) (unknown) (no date) (unknown) (unknown) SKIN: Warm, dry, no petechiae, no rashes or lesions. (units unknown) (unknown) (unknown) (no date) (unknown) (unknown) Seasonal allergies (units unknown) (unknown) (unknown) (no date) (unknown) (unknown) She recommends longitudinal traction with little bit anterior, extended knee. (units unknown) (unknown) (unknown) (no date) (unknown) (unknown) Side: left (units unknown) (unknown) (unknown) (no date) (unknown) (unknown) Signed By: (units unknown) (unknown) (unknown) (no date) (unknown) (unknown) Signed (units unknown) (unknown) (unknown) (no date) (unknown) (unknown) Smoking Status: Carmencita rubin smoker (units unknown) (unknown) (unknown) (no date) (unknown) (unknown) Social History (units unknown) (unknown) (unknown) (no date) (unknown) (unknown) Sodium Chloride (Normal Saline 0.9%) 1,000 mls @ 100 mls/hr IV CONT MINDI (units unknown) (unknown) (unknown) (no date) (unknown) (unknown) Soft tissues:? The visualized bowel gas pattern is normal.? No suspicious soft (units unknown) (unknown) (unknown) (no date) (unknown) (unknown) Source: patient and EMS (units unknown) (unknown) (unknown) (no date) (unknown) (unknown) Stated complaint: Lt Hip Pain (units unknown) (unknown) (unknown) (no date) (unknown) (unknown) Stop: 09/27/22 15:32 (units unknown) (unknown) (unknown) (no date) (unknown) (unknown) Stop: 09/27/22 16:11 (units unknown) (unknown) (unknown) (no date) (unknown) (unknown) Stop: 09/27/22 16:21 (units unknown) (unknown) (unknown) (no date) (unknown) (unknown) Stop: 09/27/22 17:19 (units unknown) (unknown) (unknown) (no date) (unknown) (unknown) Substance Use Type: does not use (units unknown) (unknown) (unknown) (no date) (unknown) (unknown) Surgical History (units unknown) (unknown) (unknown) (no date) (unknown) (unknown) TECHNIQUE:? AP pelvi s with lateral view(s) of the left hip(s).? (units unknown) (unknown) (unknown) (no date) (unknown) (unknown) Technique used: traction/counter-tract ion and direct manipulation (units unknown) (unknown) (unknown) (no date) (unknown) (unknown) Temperature 97.8 F 09/27/22 15:00 (units unknown) (unknown) (unknown) (no date) (unknown) (unknown) Temperature 97.8 F (units unknown) (unknown) (unknown) (no date) (unknown) (unknown) Temperature (units unknown) (unknown) (unknown) (no date) (unknown) (unknown) This is a 72-year-ol d female with complaint of left hip pain and a sensation of (units unknown) (unknown) (unknown) (no date) (unknown) (unknown) This is a 72-year-ol d female with history of dyslipidemia, anxiety and left hip (units unknown) (unknown) (unknown) (no date) (unknown) (unknown) Time Out Performed: Yes (units unknown) (unknown) (unknown) (no date) (unknown) (unknown) Time Seen by Provide r: 09/27/22 15:17 (units unknown) (unknown) (unknown) (no date) (unknown) (unknown) Time of Last PO Intake: 12:00 (units unknown) (unknown) (unknown) (no date) (unknown) (unknown) Time out performed: Yes (units unknown) (unknown) (unknown) (no date) (unknown) (unknown) Vital Signs - 8 hr (units unknown) (unknown) (unknown) (no date) (unknown) (unknown) Vital Signs (units unknown) (unknown) (unknown) (no date) (unknown) (unknown) Vital signs: (units unknown) (unknown) (unknown) (no date) (unknown) (unknown) XR hip w pel if done LT 2V Stat (units unknown) (unknown) (unknown) (no date) (unknown) (unknown) XRay Report (units unknown) (unknown) (unknown) (no date) (unknown) (unknown) DeborahMisty (units unknown) (unknown) (unknown) (no date) (unknown) (unknown) acetaminophen 325 mg tablet 650 mg PO Q6H PRN fever or pain 09/15/22 (units unknown) (unknown) (unknown) (no date) (unknown) (unknown) alcohol intake frequency: holidays/special occasions only (units unknown) (unknown) (unknown) (no date) (unknown) (unknown) alcohol intake: current (units unknown) (unknown) (unknown) (no date) (unknown) (unknown) allergies (units unknown) (unknown) (unknown) (no date) (unknown) (unknown) and below (units unknown) (unknown) (unknown) (no date) (unknown) (unknown) aspirin 81 mg tablet,delayed 81 mg PO BID 6 weeks #84 tabs 09/15/22 (units unknown) (unknown) (unknown) (no date) (unknown) (unknown) aspirin-acetaminophe n- caffeine 250 1 - 2 tab PO BID 08/13/22 09/27/22 (units unknown) (unknown) (unknown) (no date) (unknown) (unknown) atorvastatin 20 mg tablet 20 mg PO BEDTIME 08/13/22 09/27/22 (units unknown) (unknown) (unknown) (no date) (unknown) (unknown) bicarbonate 1.1 gram capsule (units unknown) (unknown) (unknown) (no date) (unknown) (unknown) bilaterally with normal sensation throughout the leg. Cap refill less than 2 (units unknown) (unknown) (unknown) (no date) (unknown) (unknown) calcifications.? (units unknown) (unknown) (unknown) (no date) (unknown) (unknown) caps (units unknown) (unknown) (unknown) (no date) (unknown) (unknown) cetirizine 10 mg tablet (Zyrtec) 10 mg PO DAILY PRN Seasonal 08/13/22 09/27/22 (units unknown) (unknown) (unknown) (no date) (unknown) (unknown) clubbing or edema. Neurovascularly intact (units unknown) (unknown) (unknown) (no date) (unknown) (unknown) dislocated and went back in last week. She was not seen for this. Patient (units unknown) (unknown) (unknown) (no date) (unknown) (unknown) docusate sodium 100 mg capsule 100 mg PO BID PRN constipation #30 09/15/22 (units unknown) (unknown) (unknown) (no date) (unknown) (unknown) escitalopram oxalate 20 mg tablet 20 mg PO DAILY 08/13/22 09/27/22 (units unknown) (unknown) (unknown) (no date) (unknown) (unknown) extremities (units unknown) (unknown) (unknown) (no date) (unknown) (unknown) fentanyl in route which was helpful but has since worn off and she is become (units unknown) (unknown) (unknown) (no date) (unknown) (unknown) follow-up. (units unknown) (unknown) (unknown) (no date) (unknown) (unknown) from hip replacement . Patient is neurovascularly intact. Consultation with (units unknown) (unknown) (unknown) (no date) (unknown) (unknown) from prior surgery films. She feels comfortable with his emptying at this time (units unknown) (unknown) (unknown) (no date) (unknown) (unknown) gross (units unknown) (unknown) (unknown) (no date) (unknown) (unknown) guarding or rebound, rigidity, no mass (units unknown) (unknown) (unknown) (no date) (unknown) (unknown) has been persistent. She states she had 1 episode where she felt like her hip (units unknown) (unknown) (unknown) (no date) (unknown) (unknown) household members: spouse (units unknown) (unknown) (unknown) (no date) (unknown) (unknown) ibuprofen 400 mg tablet 400 mg PO Q4H PRN 09/15/22 (units unknown) (unknown) (unknown) (no date) (unknown) (unknown) increasingly painful. (units unknown) (unknown) (unknown) (no date) (unknown) (unknown) last meal was at noo n she had water approximately the same time. Patient had (units unknown) (unknown) (unknown) (no date) (unknown) (unknown) mg-250 mg-65 mg tabl et (Excedrin (units unknown) (unknown) (unknown) (no date) (unknown) (unknown) moist mucous membranes (units unknown) (unknown) (unknown) (no date) (unknown) (unknown) omeprazole 20 mg-sodium 1 cap PO DAILY PRN GI Upset 08/13/22 09/27/22 (units unknown) (unknown) (unknown) (no date) (unknown) (unknown) or illicit. Dr. Willis River is her orthopedic surgeon. Patient states her (units unknown) (unknown) (unknown) (no date) (unknown) (unknown) osseous fracture is identified. (units unknown) (unknown) (unknown) (no date) (unknown) (unknown) osseous or hardware fracture. (units unknown) (unknown) (unknown) (no date) (unknown) (unknown) plantar and dorsiflexion of the foot on the left, she has 2+ dorsalis pedis (units unknown) (unknown) (unknown) (no date) (unknown) (unknown) pop. X-ray shows wha t appears to be dislocation. Patient is 2 weeks postop (units unknown) (unknown) (unknown) (no date) (unknown) (unknown) prior knee replacement. Patient states no cardiac history. No tobacco, alcohol (units unknown) (unknown) (unknown) (no date) (unknown) (unknown) recontacted plan for possible OR for reduction for ER. Placed in observation. (units unknown) (unknown) (unknown) (no date) (unknown) (unknown) reduction. Several attempts with longitudinal traction, internal external (units unknown) (unknown) (unknown) (no date) (unknown) (unknown) release (units unknown) (unknown) (unknown) (no date) (unknown) (unknown) replacement on 09/14/2022. Patient states she was seated using the toilet when (units unknown) (unknown) (unknown) (no date) (unknown) (unknown) rotation and 1 attem pt at flexion with traction without any success. Patient (units unknown) (unknown) (unknown) (no date) (unknown) (unknown) sats and required BV M and O2 but still would awakened and resists attempts at (units unknown) (unknown) (unknown) (no date) (unknown) (unknown) seconds bilaterally. Patient is shortened and slightly rotated on exam, no (units unknown) (unknown) (unknown) (no date) (unknown) (unknown) she went to stand up and felt a pop in her left hip and had sudden pain which (units unknown) (unknown) (unknown) (no date) (unknown) (unknown) solifenacin 10 mg tablet (Vesicare) 10 mg PO DAILY 08/13/22 09/27/22 (units unknown) (unknown) (unknown) (no date) (unknown) (unknown) states her only othe r surgeries have been prior hip replacement 2 weeks ago and (units unknown) (unknown) (unknown) (no date) (unknown) (unknown) states no numbness o r tingling or weakness. She has pain down the leg. Patient (units unknown) (unknown) (unknown) (no date) (unknown) (unknown) supplemental O2 applied, suction/airway equipment at bedside and IV secured (units unknown) (unknown) (unknown) (no date) (unknown) (unknown) tissue (units unknown) (unknown) (unknown) (no date) (unknown) (unknown) visualized (units unknown) (unknown) (unknown) (no date) (unknown) (unknown) was not felt to to b e safe to continue with sedation. Dr. Paulino was (units unknown) (unknown) (unknown) (no date) (unknown) (unknown) we did discuss that sometimes Dr. River prefers he is herself to be reduced. (units unknown) (unknown) Result panel [id number] (unknown) (no date) (unknown) (unknown) (no value) (units unknown) (unknown) (unknown) (no date) (unknown) (unknown) 09/27/22 (units unknown) (unknown) (unknown) (no date) (unknown) (unknown) [address] [place] [address] (units unknown) (unknown) (unknown) (no date) (unknown) (unknown) [id number] (units unknown) (unknown) (unknown) (no date) (unknown) (unknown) Accession Number: [id number] (units unknown) (unknown) (unknown) (no date) (unknown) (unknown) Age/Sex: 72 / F Date of Service: (units unknown) (unknown) (unknown) (no date) (unknown) (unknown) [place] [address] (units unknown) (unknown) (unknown) (no date) (unknown) (unknown) Approved by: Antonio wahl M.D. on 09/27/2022 at 20:07 (units unknown) (unknown) (unknown) (no date) (unknown) (unknown) COMPARISON: [facility], CR, XR HIP W PEL IF DONE LT 2V, 09/27/2022, 16:33. (units unknown) (unknown) (unknown) (no date) (unknown) (unknown) : 1950 Acct:[id number] (units unknown) (unknown) (unknown) (no date) (unknown) (unknown) Dictated by: Antonio wahl M.D. on 09/27/2022 at 20:07 (units unknown) (unknown) (unknown) (no date) (unknown) (unknown) FINDINGS: (units unknown) (unknown) (unknown) (no date) (unknown) (unknown) IMPRESSION: Fluoro guidance was provided intraoperatively for reduction of (units unknown) (unknown) (unknown) (no date) (unknown) (unknown) INDICATIONS: LEFT HI P DISLOCATION (units unknown) (unknown) (unknown) (no date) (unknown) (unknown) Intraoperative fluoroscopic images shows reduction of earlier noted superior (units unknown) (unknown) (unknown) (no date) (unknown) (unknown) [facility] (units unknown) (unknown) (unknown) (no date) (unknown) (unknown) Loc: AC 222-1 (units unknown) (unknown) (unknown) (no date) (unknown) (unknown) Ordering Provider: Carolee Paulino MD (units unknown) (unknown) (unknown) (no date) (unknown) (unknown) PROCEDURE: XR HIP W PEL IF DONE LT 2V (units unknown) (unknown) (unknown) (no date) (unknown) (unknown) Patient: Charisma Garciamike lane MR#: [id number] (units unknown) (unknown) (unknown) (no date) (unknown) (unknown) Procedure: XR hip w pel if done LT 2V (units unknown) (unknown) (unknown) (no date) (unknown) (unknown) Signed (units unknown) (unknown) (unknown) (no date) (unknown) (unknown) TECHNIQUE: 4 intraoperative fluoroscopic view(s) of the hip acquired. (units unknown) (unknown) (unknown) (no date) (unknown) (unknown) XRay Report (units unknown) (unknown) (unknown) (no date) (unknown) (unknown) dislocation (units unknown) (unknown) (unknown) (no date) (unknown) (unknown) known left hip prosthesis dislocation. (units unknown) (unknown) (unknown) (no date) (unknown) (unknown) of left hip prosthesis. Left hip alignment is now anatomic. (units unknown) (unknown) (unknown) (no date) (unknown) (unknown) patient's (units unknown) (unknown) Result panel 1309 (unknown) (no date) (unknown) (unknown) (no value) (units unknown) (unknown) (unknown) (no date) (unknown) (unknown) #90 tabs (units unknown) (unknown) (unknown) (no date) (unknown) (unknown) (Zegerid) (units unknown) (unknown) (unknown) (no date) (unknown) (unknown) + for hip dislocation. (units unknown) (unknown) (unknown) (no date) (unknown) (unknown) - Unspecified dislocation of left hip, initial encounter (units unknown) (unknown) (unknown) (no date) (unknown) (unknown) 09/14/22 (units unknown) (unknown) (unknown) (no date) (unknown) (unknown) 09/27/22 15:04 (units unknown) (unknown) (unknown) (no date) (unknown) (unknown) 09/27/22 15:45 (units unknown) (unknown) (unknown) (no date) (unknown) (unknown) 09/27/22 16:35 (units unknown) (unknown) (unknown) (no date) (unknown) (unknown) 09/27/22 Range/Units (units unknown) (unknown) (unknown) (no date) (unknown) (unknown) 09/27/22 (units unknown) (unknown) (unknown) (no date) (unknown) (unknown) 03/15/22 (units unknown) (unknown) (unknown) (no date) (unknown) (unknown) [address] [place] [address] (units unknown) (unknown) (unknown) (no date) (unknown) (unknown) 15:00 09/27/22 (units unknown) (unknown) (unknown) (no date) (unknown) (unknown) 15:39 09/27/22 (units unknown) (unknown) (unknown) (no date) (unknown) (unknown) 15:45 (units unknown) (unknown) (unknown) (no date) (unknown) (unknown) 15:56 09/27/22 (units unknown) (unknown) (unknown) (no date) (unknown) (unknown) 15:56 (units unknown) (unknown) (unknown) (no date) (unknown) (unknown) 16:00 09/27/22 (units unknown) (unknown) (unknown) (no date) (unknown) (unknown) 16:01 09/27/22 (units unknown) (unknown) (unknown) (no date) (unknown) (unknown) 16:01 (units unknown) (unknown) (unknown) (no date) (unknown) (unknown) 16:21 09/27/22 (units unknown) (unknown) (unknown) (no date) (unknown) (unknown) 16:21 (units unknown) (unknown) (unknown) (no date) (unknown) (unknown) 16:26 09/27/22 (units unknown) (unknown) (unknown) (no date) (unknown) (unknown) 16:26 (units unknown) (unknown) (unknown) (no date) (unknown) (unknown) 16:30 09/27/22 (units unknown) (unknown) (unknown) (no date) (unknown) (unknown) 16:32 09/27/22 (units unknown) (unknown) (unknown) (no date) (unknown) (unknown) 16:32 (units unknown) (unknown) (unknown) (no date) (unknown) (unknown) 16:35 09/27/22 (units unknown) (unknown) (unknown) (no date) (unknown) (unknown) 16:38 09/27/22 (units unknown) (unknown) (unknown) (no date) (unknown) (unknown) 16:40 09/27/22 (units unknown) (unknown) (unknown) (no date) (unknown) (unknown) 16:40 (units unknown) (unknown) (unknown) (no date) (unknown) (unknown) 16:45 09/27/22 (units unknown) (unknown) (unknown) (no date) (unknown) (unknown) 16:45 (units unknown) (unknown) (unknown) (no date) (unknown) (unknown) 16:50 09/27/22 (units unknown) (unknown) (unknown) (no date) (unknown) (unknown) 16:55 09/27/22 (units unknown) (unknown) (unknown) (no date) (unknown) (unknown) 16:55 (units unknown) (unknown) (unknown) (no date) (unknown) (unknown) 17:00 09/27/22 (units unknown) (unknown) (unknown) (no date) (unknown) (unknown) 17:00 (units unknown) (unknown) (unknown) (no date) (unknown) (unknown) 17:05 09/27/22 (units unknown) (unknown) (unknown) (no date) (unknown) (unknown) 17:10 09/27/22 (units unknown) (unknown) (unknown) (no date) (unknown) (unknown) 17:10 (units unknown) (unknown) (unknown) (no date) (unknown) (unknown) 17:15 09/27/22 (units unknown) (unknown) (unknown) (no date) (unknown) (unknown) 17:15 (units unknown) (unknown) (unknown) (no date) (unknown) (unknown) 17:20 09/27/22 (units unknown) (unknown) (unknown) (no date) (unknown) (unknown) 17:26 (units unknown) (unknown) (unknown) (no date) (unknown) (unknown) 3151 (units unknown) (unknown) (unknown) (no date) (unknown) (unknown) ? (units unknown) (unknown) (unknown) (no date) (unknown) (unknown) ABDOMEN: Soft, nontender. Normoactive bowel sounds all 4 quadrants. No (units unknown) (unknown) (unknown) (no date) (unknown) (unknown) ASA Class: II (units unknown) (unknown) (unknown) (no date) (unknown) (unknown) Accession Number: [id number] ?? (units unknown) (unknown) (unknown) (no date) (unknown) (unknown) Acct:[id number] (units unknown) (unknown) (unknown) (no date) (unknown) (unknown) Admin: 09/27/22 17:1 0 Dose: 100 mls/hr (units unknown) (unknown) (unknown) (no date) (unknown) (unknown) Admit Date/Time: 09/27/22 17:28 (units unknown) (unknown) (unknown) (no date) (unknown) (unknown) Admit Provider: Carolee Paulino (units unknown) (unknown) (unknown) (no date) (unknown) (unknown) Age/Sex: 72 / F (units unknown) (unknown) (unknown) (no date) (unknown) (unknown) Allergies (units unknown) (unknown) (unknown) (no date) (unknown) (unknown) Allergy/AdvReac Type Severity Reaction Status Date / Time (units unknown) (unknown) (unknown) (no date) (unknown) (unknown) [place] [address] (units unknown) (unknown) (unknown) (no date) (unknown) (unknown) Approved by: Urvashi Ny M.D. on 09/27/2022 at 16:56?? (units unknown) (unknown) (unknown) (no date) (unknown) (unknown) Attempted procedural sedation with left hip reduction after discussion with (units unknown) (unknown) (unknown) (no date) (unknown) (unknown) Blood Pressure 131/65 (units unknown) (unknown) (unknown) (no date) (unknown) (unknown) Blood Pressure 138/7 0 158/81 H (units unknown) (unknown) (unknown) (no date) (unknown) (unknown) Blood Pressure 142/7 5 H (units unknown) (unknown) (unknown) (no date) (unknown) (unknown) Blood Pressure 153/7 2 H 09/27/22 15:00 (units unknown) (unknown) (unknown) (no date) (unknown) (unknown) Blood Pressure 153/7 2 H (units unknown) (unknown) (unknown) (no date) (unknown) (unknown) Blood Pressure 153/8 1 H (units unknown) (unknown) (unknown) (no date) (unknown) (unknown) Blood Pressure 154/7 9 H (units unknown) (unknown) (unknown) (no date) (unknown) (unknown) Blood Pressure 155/8 2 H 157/84 H (units unknown) (unknown) (unknown) (no date) (unknown) (unknown) Blood Pressure 156/7 9 H 146/76 H (units unknown) (unknown) (unknown) (no date) (unknown) (unknown) Blood Pressure 159/7 5 H (units unknown) (unknown) (unknown) (no date) (unknown) (unknown) Blood Pressure 160/9 9 H 152/68 H (units unknown) (unknown) (unknown) (no date) (unknown) (unknown) Blood Pressure 166/9 3 H (units unknown) (unknown) (unknown) (no date) (unknown) (unknown) Blood Pressure 174/8 2 H (units unknown) (unknown) (unknown) (no date) (unknown) (unknown) Blood Pressure 197/8 4 H (units unknown) (unknown) (unknown) (no date) (unknown) (unknown) Bones:? There remain s superior dislocation of the left hip arthroplasty.? No (units unknown) (unknown) (unknown) (no date) (unknown) (unknown) CARDIOVASCULAR: Regular rate and rhythm without murmurs, rubs or gallops. (units unknown) (unknown) (unknown) (no date) (unknown) (unknown) COMPARISON:[facility], CR, XR HIP W PEL IF DONE LT 2V, 09/27/2022, 15:02. (units unknown) (unknown) (unknown) (no date) (unknown) (unknown) COVID19 -Nasal RAPID Stat (units unknown) (unknown) (unknown) (no date) (unknown) (unknown) Chief complaint: Extremity Problem,Nontraumatic (units unknown) (unknown) (unknown) (no date) (unknown) (unknown) Urv[place] Ny (units unknown) (unknown) (unknown) (no date) (unknown) (unknown) Clinical Impression: (units unknown) (unknown) (unknown) (no date) (unknown) (unknown) Close (units unknown) (unknown) (unknown) (no date) (unknown) (unknown) Complications: hypoventilation (hypoxia) (units unknown) (unknown) (unknown) (no date) (unknown) (unknown) Consent signed: Yes (units unknown) (unknown) (unknown) (no date) (unknown) (unknown) Course (units unknown) (unknown) (unknown) (no date) (unknown) (unknown) Covid swab is negative. (units unknown) (unknown) (unknown) (no date) (unknown) (unknown) : 1950 Acct:[id number] (units unknown) (unknown) (unknown) (no date) (unknown) (unknown) : 1950 (units unknown) (unknown) (unknown) (no date) (unknown) (unknown) Date of Service: 09/27/22 (units unknown) (unknown) (unknown) (no date) (unknown) (unknown) Departure (units unknown) (unknown) (unknown) (no date) (unknown) (unknown) Depression (units unknown) (unknown) (unknown) (no date) (unknown) (unknown) Dictated by: Urvashi Ny M.D. on 09/27/2022 at 16:55 ? ? (units unknown) (unknown) (unknown) (no date) (unknown) (unknown) Discharge Plan (units unknown) (unknown) (unknown) (no date) (unknown) (unknown) Discontinued Medications (units unknown) (unknown) (unknown) (no date) (unknown) (unknown) Dislocation, hip closed (units unknown) (unknown) (unknown) (no date) (unknown) (unknown) Diverticulitis (units unknown) (unknown) (unknown) (no date) (unknown) (unknown) Documented By: CG (units unknown) (unknown) (unknown) (no date) (unknown) (unknown) Documented By: KM (units unknown) (unknown) (unknown) (no date) (unknown) (unknown) Documented By: SPF (units unknown) (unknown) (unknown) (no date) (unknown) (unknown) ED Orders (units unknown) (unknown) (unknown) (no date) (unknown) (unknown) ED Sedation Level: Moderate (Concious) (units unknown) (unknown) (unknown) (no date) (unknown) (unknown) ER Physician: Galina Thapa D.O. (units unknown) (unknown) (unknown) (no date) (unknown) (unknown) EXTREMITIES: Decreas ed range of motion of the left hip, patient has good (units unknown) (unknown) (unknown) (no date) (unknown) (unknown) Emergency Report (units unknown) (unknown) (unknown) (no date) (unknown) (unknown) Encounter type: initial encounter Laterality: left Qualified Code(s): S73.005A (units unknown) (unknown) (unknown) (no date) (unknown) (unknown) Exam Narrative: (units unknown) (unknown) (unknown) (no date) (unknown) (unknown) Exam (units unknown) (unknown) (unknown) (no date) (unknown) (unknown) Extra Strength) (units unknown) (unknown) (unknown) (no date) (unknown) (unknown) Extremity x-ray #1: (units unknown) (unknown) (unknown) (no date) (unknown) (unknown) Extremity x-ray #2: (units unknown) (unknown) (unknown) (no date) (unknown) (unknown) FINDINGS:? (units unknown) (unknown) (unknown) (no date) (unknown) (unknown) GENERAL: Alert and oriented x three, elderly female in moderate distress. (units unknown) (unknown) (unknown) (no date) (unknown) (unknown) GERD (gastroesophage al reflux disease) (units unknown) (unknown) (unknown) (no date) (unknown) (unknown) : No CVA tenderness (units unknown) (unknown) (unknown) (no date) (unknown) (unknown) General (units unknown) (unknown) (unknown) (no date) (unknown) (unknown) HEENT: Head normocephalic, atraumatic, EOMI, pupils reactive, face symmetric, (units unknown) (unknown) (unknown) (no date) (unknown) (unknown) HLD (hyperlipidemia) (units unknown) (unknown) (unknown) (no date) (unknown) (unknown) HPI - Extremity Problem (units unknown) (unknown) (unknown) (no date) (unknown) (unknown) HPI Narrative: (units unknown) (unknown) (unknown) (no date) (unknown) (unknown) Hearing impaired (units unknown) (unknown) (unknown) (no date) (unknown) (unknown) Hip X-Ray (Signed) (units unknown) (unknown) (unknown) (no date) (unknown) (unknown) History of Present Illness (units unknown) (unknown) (unknown) (no date) (unknown) (unknown) History of bladder surgery (units unknown) (unknown) (unknown) (no date) (unknown) (unknown) History of total lef t knee replacement (units unknown) (unknown) (unknown) (no date) (unknown) (unknown) History of total rig ht knee replacement (units unknown) (unknown) (unknown) (no date) (unknown) (unknown) Home Medications (units unknown) (unknown) (unknown) (no date) (unknown) (unknown) Hx of left breast biopsy (units unknown) (unknown) (unknown) (no date) (unknown) (unknown) Hx of right breast biopsy (units unknown) (unknown) (unknown) (no date) (unknown) (unknown) Hx of tonsillectomy (units unknown) (unknown) (unknown) (no date) (unknown) (unknown) Hydromorphone HCl (Hydromorphone 1 Mg Inj) 1 mg IV Q3H PRN (units unknown) (unknown) (unknown) (no date) (unknown) (unknown) IMPRESSION:? Unchang ed appearance of dislocated left hip prosthesis.? No (units unknown) (unknown) (unknown) (no date) (unknown) (unknown) INDICATIONS:? relocation (units unknown) (unknown) (unknown) (no date) (unknown) (unknown) IV Propofol dose (mg ): 150 (units unknown) (unknown) (unknown) (no date) (unknown) (unknown) If unsuccessful to call back if successful knee immobilizer ambulation trial and (units unknown) (unknown) (unknown) (no date) (unknown) (unknown) Imaging Data (units unknown) (unknown) (unknown) (no date) (unknown) (unknown) Indication: fracture/dislocation reduction (units unknown) (unknown) (unknown) (no date) (unknown) (unknown) Infusion: 09/27/22 17:35 Dose: 0 mls/hr (units unknown) (unknown) (unknown) (no date) (unknown) (unknown) Initial Vital Signs (units unknown) (unknown) (unknown) (no date) (unknown) (unknown) Initial Vital Signs: (units unknown) (unknown) (unknown) (no date) (unknown) (unknown) Interventions: Airwa y repositioned, Assist by BVM and Oxygen applied (units unknown) (unknown) (unknown) (no date) (unknown) (unknown) [address] [address] (units unknown) (unknown) (unknown) (no date) (unknown) (unknown) [facility] (units unknown) (unknown) (unknown) (no date) (unknown) (unknown) Joint #1: (units unknown) (unknown) (unknown) (no date) (unknown) (unknown) Joint Aspiration/Injection (Signed) (units unknown) (unknown) (unknown) (no date) (unknown) (unknown) Joint Reduction Location: hip (units unknown) (unknown) (unknown) (no date) (unknown) (unknown) [facility] [place] (units unknown) (unknown) (unknown) (no date) (unknown) (unknown) Lab Data (units unknown) (unknown) (unknown) (no date) (unknown) (unknown) Lab Results (units unknown) (unknown) (unknown) (no date) (unknown) (unknown) Labs: (units unknown) (unknown) (unknown) (no date) (unknown) (unknown) Lactated Ringer's (Lactated Ringers) 1,000 mls @ 42 mls/hr IV CONT MINDI (units unknown) (unknown) (unknown) (no date) (unknown) (unknown) Last Admin: 09/27/22 15:41 Dose: 4 mg (units unknown) (unknown) (unknown) (no date) (unknown) (unknown) Last Admin: 09/27/22 16:31 Dose: 150 mg (units unknown) (unknown) (unknown) (no date) (unknown) (unknown) Last Admin: 09/27/22 17:01 Dose: 1 mg (units unknown) (unknown) (unknown) (no date) (unknown) (unknown) Last Admin: 09/27/22 17:16 Dose: Not Given (units unknown) (unknown) (unknown) (no date) (unknown) (unknown) Last Admin: 09/27/22 17:27 Dose: 0.5 mg (units unknown) (unknown) (unknown) (no date) (unknown) (unknown) Last Admin: 09/27/22 19:13 Dose: 42 mls/hr (units unknown) (unknown) (unknown) (no date) (unknown) (unknown) Last Infusion: 09/27/22 18:04 Dose: 0 mls/hr (units unknown) (unknown) (unknown) (no date) (unknown) (unknown) Launch?Image (units unknown) (unknown) (unknown) (no date) (unknown) (unknown) [place] (units unknown) (unknown) (unknown) (no date) (unknown) (unknown) Loc: ED (units unknown) (unknown) (unknown) (no date) (unknown) (unknown) Lorazepam (Lorazepam 2 Mg/Ml Inj) 0.5 mg IV NOW ONE (units unknown) (unknown) (unknown) (no date) (unknown) (unknown) MDM - Extremity (Nontraumatic) (units unknown) (unknown) (unknown) (no date) (unknown) (unknown) MDM Narrative (units unknown) (unknown) (unknown) (no date) (unknown) (unknown) MR#: [id number] (units unknown) (unknown) (unknown) (no date) (unknown) (unknown) Mallampati Airway Classification: Class II (units unknown) (unknown) (unknown) (no date) (unknown) (unknown) Medical History (units unknown) (unknown) (unknown) (no date) (unknown) (unknown) Medical decision making narrative: (units unknown) (unknown) (unknown) (no date) (unknown) (unknown) Medication Instructions Recorded Confirmed (units unknown) (unknown) (unknown) (no date) (unknown) (unknown) Medication Instructions Recorded (units unknown) (unknown) (unknown) (no date) (unknown) (unknown) Mode of arrival: EMS (units unknown) (unknown) (unknown) (no date) (unknown) (unknown) Morphine Sulfate (Morphine 4 Mg/Ml Inj) 4 mg IV NOW ONE (units unknown) (unknown) (unknown) (no date) (unknown) (unknown) My Impression: (units unknown) (unknown) (unknown) (no date) (unknown) (unknown) NECK: Supple, full range of motion (units unknown) (unknown) (unknown) (no date) (unknown) (unknown) NEUROLOGICAL: Crania l nerves II through XII grossly intact. Moving all (units unknown) (unknown) (unknown) (no date) (unknown) (unknown) Narrative (units unknown) (unknown) (unknown) (no date) (unknown) (unknown) No Known Drug Allergies Allergy Verified 08/13/22 11:07 (units unknown) (unknown) (unknown) (no date) (unknown) (unknown) Ondansetron HCl (Ondansetron 4 Mg/2 Ml Inj) 4 mg IV Q6HR PRN (units unknown) (unknown) (unknown) (no date) (unknown) (unknown) Ordered: (units unknown) (unknown) (unknown) (no date) (unknown) (unknown) Ordering Provider: Galina Thapa D.O. (units unknown) (unknown) (unknown) (no date) (unknown) (unknown) Orders (units unknown) (unknown) (unknown) (no date) (unknown) (unknown) Orthopedic Joint Reduction (units unknown) (unknown) (unknown) (no date) (unknown) (unknown) Orthopedic surgery, Dr. Paulino. Discussed patient is just under 2 weeks out (units unknown) (unknown) (unknown) (no date) (unknown) (unknown) Orthopedic surgery. Patient was very difficult to sedate but would drop her O2 (units unknown) (unknown) (unknown) (no date) (unknown) (unknown) Osteoarthritis (units unknown) (unknown) (unknown) (no date) (unknown) (unknown) Oxygen Delivery Meth od Ambu Bag Ambu Bag (units unknown) (unknown) (unknown) (no date) (unknown) (unknown) Oxygen Delivery Meth od Nasal Cannula Nasal Cannula (units unknown) (unknown) (unknown) (no date) (unknown) (unknown) Oxygen Delivery Meth od Nasal Cannula (units unknown) (unknown) (unknown) (no date) (unknown) (unknown) Oxygen Delivery Meth od Room Air 09/27/22 15:00 (units unknown) (unknown) (unknown) (no date) (unknown) (unknown) Oxygen Delivery Meth od Room Air Nasal Cannula (units unknown) (unknown) (unknown) (no date) (unknown) (unknown) Oxygen Delivery Meth od Room Air (units unknown) (unknown) (unknown) (no date) (unknown) (unknown) Oxygen Delivery Method (units unknown) (unknown) (unknown) (no date) (unknown) (unknown) Oxygen Flow Rate 15 15 (units unknown) (unknown) (unknown) (no date) (unknown) (unknown) Oxygen Flow Rate 2 2 (units unknown) (unknown) (unknown) (no date) (unknown) (unknown) Oxygen Flow Rate 2 (units unknown) (unknown) (unknown) (no date) (unknown) (unknown) Oxygen Flow Rate 6 6 (units unknown) (unknown) (unknown) (no date) (unknown) (unknown) Oxygen Flow Rate 6 (units unknown) (unknown) (unknown) (no date) (unknown) (unknown) Oxygen Flow Rate (units unknown) (unknown) (unknown) (no date) (unknown) (unknown) PRN Reason: Nausea A nd Vomiting (units unknown) (unknown) (unknown) (no date) (unknown) (unknown) PRN Reason: Pain, Moderate (4-6) (units unknown) (unknown) (unknown) (no date) (unknown) (unknown) PROCEDURE:? XR HIP W PEL IF DONE LT 2V (units unknown) (unknown) (unknown) (no date) (unknown) (unknown) Pain/inflammation #9 0 tabs (units unknown) (unknown) (unknown) (no date) (unknown) (unknown) Patient Disposition: Admitted as Observation (units unknown) (unknown) (unknown) (no date) (unknown) (unknown) Patient History (units unknown) (unknown) (unknown) (no date) (unknown) (unknown) Patient Tolerated Procedure: Well and No complications (units unknown) (unknown) (unknown) (no date) (unknown) (unknown) Patient: IsaiBarbara MR#: [id number] (units unknown) (unknown) (unknown) (no date) (unknown) (unknown) Patient: Selene Garcia (units unknown) (unknown) (unknown) (no date) (unknown) (unknown) Point of Care Testing (units unknown) (unknown) (unknown) (no date) (unknown) (unknown) Post Reduction X-Ray Obtained: Yes (units unknown) (unknown) (unknown) (no date) (unknown) (unknown) Post Reduction X-Ray Results: not reduced (units unknown) (unknown) (unknown) (no date) (unknown) (unknown) Post-reduction neuro exam: intact and no change (units unknown) (unknown) (unknown) (no date) (unknown) (unknown) Post-reduction vascular: intact and no change (units unknown) (unknown) (unknown) (no date) (unknown) (unknown) Test Resul ts Negative (units unknown) (unknown) (unknown) (no date) (unknown) (unknown) Preparation: rn cardiac cath applied, pulse oximeter, capnometry used, (units unknown) (unknown) (unknown) (no date) (unknown) (unknown) Previous Rx's (units unknown) (unknown) (unknown) (no date) (unknown) (unknown) Procedural Sedation (units unknown) (unknown) (unknown) (no date) (unknown) (unknown) Procedure: XR hip w pel if done LT 2V (units unknown) (unknown) (unknown) (no date) (unknown) (unknown) Procedures (units unknown) (unknown) (unknown) (no date) (unknown) (unknown) Propofol (Propofol 2 00 Mg/20 Ml Vial) 100 mg IV NOW ONE (units unknown) (unknown) (unknown) (no date) (unknown) (unknown) Propofol (Propofol 2 00 Mg/20 Ml Vial) 150 mg IV NOW ONE (units unknown) (unknown) (unknown) (no date) (unknown) (unknown) Pulse Oximetry 94 (units unknown) (unknown) (unknown) (no date) (unknown) (unknown) Pulse Oximetry 95 09/27/22 15:00 (units unknown) (unknown) (unknown) (no date) (unknown) (unknown) Pulse Oximetry 95 79 L (units unknown) (unknown) (unknown) (no date) (unknown) (unknown) Pulse Oximetry 95 95 (units unknown) (unknown) (unknown) (no date) (unknown) (unknown) Pulse Oximetry 95 99 99 (units unknown) (unknown) (unknown) (no date) (unknown) (unknown) Pulse Oximetry 95 (units unknown) (unknown) (unknown) (no date) (unknown) (unknown) Pulse Oximetry 96 99 (units unknown) (unknown) (unknown) (no date) (unknown) (unknown) Pulse Oximetry 97 97 (units unknown) (unknown) (unknown) (no date) (unknown) (unknown) Pulse Oximetry 98 97 (units unknown) (unknown) (unknown) (no date) (unknown) (unknown) Pulse Oximetry 98 98 (units unknown) (unknown) (unknown) (no date) (unknown) (unknown) Pulse Oximetry 98 (units unknown) (unknown) (unknown) (no date) (unknown) (unknown) Pulse Oximetry 99 99 (units unknown) (unknown) (unknown) (no date) (unknown) (unknown) Pulse Oximetry (units unknown) (unknown) (unknown) (no date) (unknown) (unknown) Pulse Rate 61 15:00 (units unknown) (unknown) (unknown) (no date) (unknown) (unknown) Pulse Rate 61 62 64 (units unknown) (unknown) (unknown) (no date) (unknown) (unknown) Pulse Rate 67 69 (units unknown) (unknown) (unknown) (no date) (unknown) (unknown) Pulse Rate 69 75 (units unknown) (unknown) (unknown) (no date) (unknown) (unknown) Pulse Rate 71 72 (units unknown) (unknown) (unknown) (no date) (unknown) (unknown) Pulse Rate 71 (units unknown) (unknown) (unknown) (no date) (unknown) (unknown) Pulse Rate 72 72 (units unknown) (unknown) (unknown) (no date) (unknown) (unknown) Pulse Rate 73 72 (units unknown) (unknown) (unknown) (no date) (unknown) (unknown) Pulse Rate 73 73 (units unknown) (unknown) (unknown) (no date) (unknown) (unknown) Pulse Rate 74 75 (units unknown) (unknown) (unknown) (no date) (unknown) (unknown) Pulse Rate 74 (units unknown) (unknown) (unknown) (no date) (unknown) (unknown) Pulse Rate (units unknown) (unknown) (unknown) (no date) (unknown) (unknown) Qualifiers: (units unknown) (unknown) (unknown) (no date) (unknown) (unknown) RESPIRATORY: Breath sounds equal bilaterally, no wheezes rales or rhonchi. (units unknown) (unknown) (unknown) (no date) (unknown) (unknown) ROS Unobtainable: Al l systems reviewed + are unremarkable except as noted in HPI (units unknown) (unknown) (unknown) (no date) (unknown) (unknown) Radiologist's Impression: (units unknown) (unknown) (unknown) (no date) (unknown) (unknown) Related Data (units unknown) (unknown) (unknown) (no date) (unknown) (unknown) Respiratory Rate 16 09/27/22 15:00 (units unknown) (unknown) (unknown) (no date) (unknown) (unknown) Respiratory Rate 16 (units unknown) (unknown) (unknown) (no date) (unknown) (unknown) Respiratory Rate 18 21 (units unknown) (unknown) (unknown) (no date) (unknown) (unknown) Respiratory Rate 19 (units unknown) (unknown) (unknown) (no date) (unknown) (unknown) Respiratory Rate 23 21 (units unknown) (unknown) (unknown) (no date) (unknown) (unknown) Respiratory Rate 23 27 H (units unknown) (unknown) (unknown) (no date) (unknown) (unknown) Respiratory Rate 25 H (units unknown) (unknown) (unknown) (no date) (unknown) (unknown) Respiratory Rate 28 H (units unknown) (unknown) (unknown) (no date) (unknown) (unknown) Respiratory Rate 30 H 15 (units unknown) (unknown) (unknown) (no date) (unknown) (unknown) Respiratory Rate 30 H 26 H (units unknown) (unknown) (unknown) (no date) (unknown) (unknown) Respiratory Rate (units unknown) (unknown) (unknown) (no date) (unknown) (unknown) Review of Systems (units unknown) (unknown) (unknown) (no date) (unknown) (unknown) Isidro Govea (units unknown) (unknown) (unknown) (no date) (unknown) (unknown) SARS-CoV-2 (PCR) Negative (Negative) (units unknown) (unknown) (unknown) (no date) (unknown) (unknown) SKIN: Warm, dry, no petechiae, no rashes or lesions. (units unknown) (unknown) (unknown) (no date) (unknown) (unknown) Seasonal allergies (units unknown) (unknown) (unknown) (no date) (unknown) (unknown) She recommends longitudinal traction with little bit anterior, extended knee. (units unknown) (unknown) (unknown) (no date) (unknown) (unknown) Side: left (units unknown) (unknown) (unknown) (no date) (unknown) (unknown) Signed By: (units unknown) (unknown) (unknown) (no date) (unknown) (unknown) Signed (units unknown) (unknown) (unknown) (no date) (unknown) (unknown) Smoking Status: Carmencita rubin smoker (units unknown) (unknown) (unknown) (no date) (unknown) (unknown) Social History (units unknown) (unknown) (unknown) (no date) (unknown) (unknown) Sodium Chloride (Normal Saline 0.9%) 1,000 mls @ 100 mls/hr IV CONT MINDI (units unknown) (unknown) (unknown) (no date) (unknown) (unknown) Soft tissues:? The visualized bowel gas pattern is normal.? No suspicious soft (units unknown) (unknown) (unknown) (no date) (unknown) (unknown) Source: patient and EMS (units unknown) (unknown) (unknown) (no date) (unknown) (unknown) Stated complaint: Lt Hip Pain (units unknown) (unknown) (unknown) (no date) (unknown) (unknown) Stop: 09/27/22 15:32 (units unknown) (unknown) (unknown) (no date) (unknown) (unknown) Stop: 09/27/22 16:11 (units unknown) (unknown) (unknown) (no date) (unknown) (unknown) Stop: 09/27/22 16:21 (units unknown) (unknown) (unknown) (no date) (unknown) (unknown) Stop: 09/27/22 17:19 (units unknown) (unknown) (unknown) (no date) (unknown) (unknown) Substance Use Type: does not use (units unknown) (unknown) (unknown) (no date) (unknown) (unknown) Surgical History (units unknown) (unknown) (unknown) (no date) (unknown) (unknown) TECHNIQUE:? AP pelvi s with lateral view(s) of the left hip(s).? (units unknown) (unknown) (unknown) (no date) (unknown) (unknown) Technique used: traction/counter-tract ion and direct manipulation (units unknown) (unknown) (unknown) (no date) (unknown) (unknown) Temperature 97.8 F 09/27/22 15:00 (units unknown) (unknown) (unknown) (no date) (unknown) (unknown) Temperature 97.8 F (units unknown) (unknown) (unknown) (no date) (unknown) (unknown) Temperature (units unknown) (unknown) (unknown) (no date) (unknown) (unknown) This is a 72-year-ol d female with complaint of left hip pain and a sensation of (units unknown) (unknown) (unknown) (no date) (unknown) (unknown) This is a 72-year-ol d female with history of dyslipidemia, anxiety and left hip (units unknown) (unknown) (unknown) (no date) (unknown) (unknown) Time Out Performed: Yes (units unknown) (unknown) (unknown) (no date) (unknown) (unknown) Time Seen by Provide r: 09/27/22 15:17 (units unknown) (unknown) (unknown) (no date) (unknown) (unknown) Time of Last PO Intake: 12:00 (units unknown) (unknown) (unknown) (no date) (unknown) (unknown) Time out performed: Yes (units unknown) (unknown) (unknown) (no date) (unknown) (unknown) Vital Signs - 8 hr (units unknown) (unknown) (unknown) (no date) (unknown) (unknown) Vital Signs (units unknown) (unknown) (unknown) (no date) (unknown) (unknown) Vital signs: (units unknown) (unknown) (unknown) (no date) (unknown) (unknown) XR hip w pel if done LT 2V Stat (units unknown) (unknown) (unknown) (no date) (unknown) (unknown) XRay Report (units unknown) (unknown) (unknown) (no date) (unknown) (unknown) Misty Cabrera (units unknown) (unknown) (unknown) (no date) (unknown) (unknown) acetaminophen 325 mg tablet 650 mg PO Q6H PRN fever or pain 09/15/22 (units unknown) (unknown) (unknown) (no date) (unknown) (unknown) alcohol intake frequency: holidays/special occasions only (units unknown) (unknown) (unknown) (no date) (unknown) (unknown) alcohol intake: current (units unknown) (unknown) (unknown) (no date) (unknown) (unknown) allergies (units unknown) (unknown) (unknown) (no date) (unknown) (unknown) and below (units unknown) (unknown) (unknown) (no date) (unknown) (unknown) aspirin 81 mg tablet,delayed 81 mg PO BID 6 weeks #84 tabs 09/15/22 (units unknown) (unknown) (unknown) (no date) (unknown) (unknown) aspirin-acetaminophe n- caffeine 250 1 - 2 tab PO BID 08/13/22 09/27/22 (units unknown) (unknown) (unknown) (no date) (unknown) (unknown) atorvastatin 20 mg tablet 20 mg PO BEDTIME 08/13/22 09/27/22 (units unknown) (unknown) (unknown) (no date) (unknown) (unknown) bicarbonate 1.1 gram capsule (units unknown) (unknown) (unknown) (no date) (unknown) (unknown) bilaterally with normal sensation throughout the leg. Cap refill less than 2 (units unknown) (unknown) (unknown) (no date) (unknown) (unknown) calcifications.? (units unknown) (unknown) (unknown) (no date) (unknown) (unknown) caps (units unknown) (unknown) (unknown) (no date) (unknown) (unknown) cetirizine 10 mg tablet (Zyrtec) 10 mg PO DAILY PRN Seasonal 08/13/22 09/27/22 (units unknown) (unknown) (unknown) (no date) (unknown) (unknown) clubbing or edema. Neurovascularly intact (units unknown) (unknown) (unknown) (no date) (unknown) (unknown) dislocated and went back in last week. She was not seen for this. Patient (units unknown) (unknown) (unknown) (no date) (unknown) (unknown) docusate sodium 100 mg capsule 100 mg PO BID PRN constipation #30 09/15/22 (units unknown) (unknown) (unknown) (no date) (unknown) (unknown) escitalopram oxalate 20 mg tablet 20 mg PO DAILY 08/13/22 09/27/22 (units unknown) (unknown) (unknown) (no date) (unknown) (unknown) extremities (units unknown) (unknown) (unknown) (no date) (unknown) (unknown) fentanyl in route which was helpful but has since worn off and she is become (units unknown) (unknown) (unknown) (no date) (unknown) (unknown) follow-up. (units unknown) (unknown) (unknown) (no date) (unknown) (unknown) from hip replacement . Patient is neurovascularly intact. Consultation with (units unknown) (unknown) (unknown) (no date) (unknown) (unknown) from prior surgery films. She feels comfortable with his emptying at this time (units unknown) (unknown) (unknown) (no date) (unknown) (unknown) gross (units unknown) (unknown) (unknown) (no date) (unknown) (unknown) guarding or rebound, rigidity, no mass (units unknown) (unknown) (unknown) (no date) (unknown) (unknown) has been persistent. She states she had 1 episode where she felt like her hip (units unknown) (unknown) (unknown) (no date) (unknown) (unknown) household members: spouse (units unknown) (unknown) (unknown) (no date) (unknown) (unknown) ibuprofen 400 mg tablet 400 mg PO Q4H PRN 09/15/22 (units unknown) (unknown) (unknown) (no date) (unknown) (unknown) increasingly painful. (units unknown) (unknown) (unknown) (no date) (unknown) (unknown) last meal was at noo n she had water approximately the same time. Patient had (units unknown) (unknown) (unknown) (no date) (unknown) (unknown) mg-250 mg-65 mg tabl et (Excedrin (units unknown) (unknown) (unknown) (no date) (unknown) (unknown) moist mucous membranes (units unknown) (unknown) (unknown) (no date) (unknown) (unknown) omeprazole 20 mg-sodium 1 cap PO DAILY PRN GI Upset 08/13/22 09/27/22 (units unknown) (unknown) (unknown) (no date) (unknown) (unknown) or illicit. Dr. Willis River is her orthopedic surgeon. Patient states her (units unknown) (unknown) (unknown) (no date) (unknown) (unknown) osseous fracture is identified. (units unknown) (unknown) (unknown) (no date) (unknown) (unknown) osseous or hardware fracture. (units unknown) (unknown) (unknown) (no date) (unknown) (unknown) plantar and dorsiflexion of the foot on the left, she has 2+ dorsalis pedis (units unknown) (unknown) (unknown) (no date) (unknown) (unknown) pop. X-ray shows wha t appears to be dislocation. Patient is 2 weeks postop (units unknown) (unknown) (unknown) (no date) (unknown) (unknown) prior knee replacement. Patient states no cardiac history. No tobacco, alcohol (units unknown) (unknown) (unknown) (no date) (unknown) (unknown) recontacted plan for possible OR for reduction for ER. Placed in observation. (units unknown) (unknown) (unknown) (no date) (unknown) (unknown) reduction. Several attempts with longitudinal traction, internal external (units unknown) (unknown) (unknown) (no date) (unknown) (unknown) release (units unknown) (unknown) (unknown) (no date) (unknown) (unknown) replacement on 09/14/2022. Patient states she was seated using the toilet when (units unknown) (unknown) (unknown) (no date) (unknown) (unknown) rotation and 1 attem pt at flexion with traction without any success. Patient (units unknown) (unknown) (unknown) (no date) (unknown) (unknown) sats and required BV M and O2 but still would awakened and resists attempts at (units unknown) (unknown) (unknown) (no date) (unknown) (unknown) seconds bilaterally. Patient is shortened and slightly rotated on exam, no (units unknown) (unknown) (unknown) (no date) (unknown) (unknown) she went to stand up and felt a pop in her left hip and had sudden pain which (units unknown) (unknown) (unknown) (no date) (unknown) (unknown) solifenacin 10 mg tablet (Vesicare) 10 mg PO DAILY 08/13/22 09/27/22 (units unknown) (unknown) (unknown) (no date) (unknown) (unknown) states her only othe r surgeries have been prior hip replacement 2 weeks ago and (units unknown) (unknown) (unknown) (no date) (unknown) (unknown) states no numbness o r tingling or weakness. She has pain down the leg. Patient (units unknown) (unknown) (unknown) (no date) (unknown) (unknown) supplemental O2 applied, suction/airway equipment at bedside and IV secured (units unknown) (unknown) (unknown) (no date) (unknown) (unknown) tissue (units unknown) (unknown) (unknown) (no date) (unknown) (unknown) visualized (units unknown) (unknown) (unknown) (no date) (unknown) (unknown) was not felt to to b e safe to continue with sedation. Dr. Paulino was (units unknown) (unknown) (unknown) (no date) (unknown) (unknown) we did discuss that sometimes Dr. River prefers he is herself to be reduced. (units unknown) (unknown) Result panel [id number] (unknown) (no date) (unknown) (unknown) (no value) (units unknown) (unknown) (unknown) (no date) (unknown) (unknown) (past 8 hours): (units unknown) (unknown) (unknown) (no date) (unknown) (unknown) 00:28 09/28/22 (units unknown) (unknown) (unknown) (no date) (unknown) (unknown) 03:54 09/28/22 (units unknown) (unknown) (unknown) (no date) (unknown) (unknown) 09/27/22 17:28 (units unknown) (unknown) (unknown) (no date) (unknown) (unknown) 09/27/22 20:14 (units unknown) (unknown) (unknown) (no date) (unknown) (unknown) 09/27/22 (units unknown) (unknown) (unknown) (no date) (unknown) (unknown) 09/28/22 (units unknown) (unknown) (unknown) (no date) (unknown) (unknown) 08:00 (units unknown) (unknown) (unknown) (no date) (unknown) (unknown) 0RF (units unknown) (unknown) (unknown) (no date) (unknown) (unknown) 1 - 2 tab PO BID (units unknown) (unknown) (unknown) (no date) (unknown) (unknown) 1 cap PO DAILY PRN (Reason: GI Upset) (units unknown) (unknown) (unknown) (no date) (unknown) (unknown) 10 mg PO DAILY PRN (Reason: Seasonal allergies) (units unknown) (unknown) (unknown) (no date) (unknown) (unknown) 10 mg PO DAILY (units unknown) (unknown) (unknown) (no date) (unknown) (unknown) 100 mg PO BID PRN (Reason: constipation) Qty: 30 0RF (units unknown) (unknown) (unknown) (no date) (unknown) (unknown) 15:45 (units unknown) (unknown) (unknown) (no date) (unknown) (unknown) 20 mg PO BEDTIME (units unknown) (unknown) (unknown) (no date) (unknown) (unknown) 20 mg PO DAILY (units unknown) (unknown) (unknown) (no date) (unknown) (unknown) 3151 (units unknown) (unknown) (unknown) (no date) (unknown) (unknown) 400 mg PO Q4H MDD Ma x 2400 mg per day PRN (Reason: Pain/inflammation) Qty: 90 (units unknown) (unknown) (unknown) (no date) (unknown) (unknown) 650 mg PO Q6H MDD Ma x 3000 mg per day PRN (Reason: fever or pain) Qty: 90 0RF (units unknown) (unknown) (unknown) (no date) (unknown) (unknown) 81 mg PO BID 42 Days Qty: 84 0RF (units unknown) (unknown) (unknown) (no date) (unknown) (unknown) Admit Date/Time: 09/27/22 17:28 (units unknown) (unknown) (unknown) (no date) (unknown) (unknown) Age/Sex: 72 / F (units unknown) (unknown) (unknown) (no date) (unknown) (unknown) Anesthesia Type: General (units unknown) (unknown) (unknown) (no date) (unknown) (unknown) Anterior left total hip arthroplasty was successfully reduced with longitudinal (units unknown) (unknown) (unknown) (no date) (unknown) (unknown) Attending Provider: Carolee Paulino (units unknown) (unknown) (unknown) (no date) (unknown) (unknown) BMI 39 (units unknown) (unknown) (unknown) (no date) (unknown) (unknown) Blood Pressure 105/6 6 119/58 L 106/61 (units unknown) (unknown) (unknown) (no date) (unknown) (unknown) Chief complaint: Lt Hip Pain (units unknown) (unknown) (unknown) (no date) (unknown) (unknown) Click Yes if Unassisted: Yes (units unknown) (unknown) (unknown) (no date) (unknown) (unknown) Close reduction unde r general anesthesia left total hip arthroplasty dislocation (units unknown) (unknown) (unknown) (no date) (unknown) (unknown) Closure Type: not applicable (units unknown) (unknown) (unknown) (no date) (unknown) (unknown) Comment: Posterior a nd anterior hip precautions. (units unknown) (unknown) (unknown) (no date) (unknown) (unknown) Consult to Physical Therapy Evaluate + Treat (units unknown) (unknown) (unknown) (no date) (unknown) (unknown) Consults: (units unknown) (unknown) (unknown) (no date) (unknown) (unknown) : 1950 Acct:[id number] (units unknown) (unknown) (unknown) (no date) (unknown) (unknown) Date Patient Seen: 09/28/22 (units unknown) (unknown) (unknown) (no date) (unknown) (unknown) Date of Service: 09/27/22 (units unknown) (unknown) (unknown) (no date) (unknown) (unknown) Date of admission: (units unknown) (unknown) (unknown) (no date) (unknown) (unknown) Date of procedure: 09/27/22 (units unknown) (unknown) (unknown) (no date) (unknown) (unknown) Deep Vein Thrombosis/Pulmonary Embolism Present on Admission: No (units unknown) (unknown) (unknown) (no date) (unknown) (unknown) Depression (units unknown) (unknown) (unknown) (no date) (unknown) (unknown) Discharge Data (units unknown) (unknown) (unknown) (no date) (unknown) (unknown) Discharge Date: 09/28/22 (units unknown) (unknown) (unknown) (no date) (unknown) (unknown) Discharge Diagnosis: (units unknown) (unknown) (unknown) (no date) (unknown) (unknown) Discharge Plan (units unknown) (unknown) (unknown) (no date) (unknown) (unknown) Discharge Providers (units unknown) (unknown) (unknown) (no date) (unknown) (unknown) Discharge Summary (units unknown) (unknown) (unknown) (no date) (unknown) (unknown) Discharge orders + Medications (units unknown) (unknown) (unknown) (no date) (unknown) (unknown) Discharge provider: (units unknown) (unknown) (unknown) (no date) (unknown) (unknown) Dislocation left tot al hip arthroplasty, s/p closed reduction under general (units unknown) (unknown) (unknown) (no date) (unknown) (unknown) Diverticulitis (units unknown) (unknown) (unknown) (no date) (unknown) (unknown) Estimated Blood Loss (mL): 0 (units unknown) (unknown) (unknown) (no date) (unknown) (unknown) Exam (units unknown) (unknown) (unknown) (no date) (unknown) (unknown) Excedrin Extra Strength 250-250-65 mg Tablet (units unknown) (unknown) (unknown) (no date) (unknown) (unknown) Findings: (units unknown) (unknown) (unknown) (no date) (unknown) (unknown) Follow up/Referrals: (units unknown) (unknown) (unknown) (no date) (unknown) (unknown) GERD (gastroesophage al reflux disease) (units unknown) (unknown) (unknown) (no date) (unknown) (unknown) HLD (hyperlipidemia) (units unknown) (unknown) (unknown) (no date) (unknown) (unknown) Hearing impaired (units unknown) (unknown) (unknown) (no date) (unknown) (unknown) History of Present Illness (units unknown) (unknown) (unknown) (no date) (unknown) (unknown) History of bladder surgery (units unknown) (unknown) (unknown) (no date) (unknown) (unknown) History of total lef t knee replacement (units unknown) (unknown) (unknown) (no date) (unknown) (unknown) History of total rig ht knee replacement (units unknown) (unknown) (unknown) (no date) (unknown) (unknown) Hospital Course (units unknown) (unknown) (unknown) (no date) (unknown) (unknown) Hospital Course: (units unknown) (unknown) (unknown) (no date) (unknown) (unknown) Hx of left breast biopsy (units unknown) (unknown) (unknown) (no date) (unknown) (unknown) Hx of right breast biopsy (units unknown) (unknown) (unknown) (no date) (unknown) (unknown) Hx of tonsillectomy (units unknown) (unknown) (unknown) (no date) (unknown) (unknown) Indications: (units unknown) (unknown) (unknown) (no date) (unknown) (unknown) [address] [address] (units unknown) (unknown) (unknown) (no date) (unknown) (unknown) Raquel Romano PA-C (units unknown) (unknown) (unknown) (no date) (unknown) (unknown) Maria Teresa Larsen PA-C (units unknown) (unknown) (unknown) (no date) (unknown) (unknown) Laboratory Results - last 24 hr (units unknown) (unknown) (unknown) (no date) (unknown) (unknown) Labs (units unknown) (unknown) (unknown) (no date) (unknown) (unknown) Labs: (units unknown) (unknown) (unknown) (no date) (unknown) (unknown) Medical History (Reviewed 04/ @ 18:57 by Carolee Paulino MD) (units unknown) (unknown) (unknown) (no date) (unknown) (unknown) Ms Garcia's hospital course was unremarkable. On POD# 1 she was feeling well (units unknown) (unknown) (unknown) (no date) (unknown) (unknown) Narrative: (units unknown) (unknown) (unknown) (no date) (unknown) (unknown) No Action (units unknown) (unknown) (unknown) (no date) (unknown) (unknown) Objective (units unknown) (unknown) (unknown) (no date) (unknown) (unknown) Operative Date/Time/Diagnoses (units unknown) (unknown) (unknown) (no date) (unknown) (unknown) Operative Notes (units unknown) (unknown) (unknown) (no date) (unknown) (unknown) Osteoarthritis (units unknown) (unknown) (unknown) (no date) (unknown) (unknown) Oxygen Delivery Meth od Room Air (units unknown) (unknown) (unknown) (no date) (unknown) (unknown) Oxygen Flow Rate 0 1 0 (units unknown) (unknown) (unknown) (no date) (unknown) (unknown) Oxygen Flow Rate 0 (units unknown) (unknown) (unknown) (no date) (unknown) (unknown) PFSH (units unknown) (unknown) (unknown) (no date) (unknown) (unknown) Patient Disposition: Home (units unknown) (unknown) (unknown) (no date) (unknown) (unknown) Patient is a 72-year-old female that had a posterior approach left total hip (units unknown) (unknown) (unknown) (no date) (unknown) (unknown) Patient: Barbara Garcia MR#: [id number] (units unknown) (unknown) (unknown) (no date) (unknown) (unknown) Physician Instructions: Evaluate and Treat (units unknown) (unknown) (unknown) (no date) (unknown) (unknown) Post-op diagnosis: same (units unknown) (unknown) (unknown) (no date) (unknown) (unknown) Pre-op diagnosis: Dislocation left total hip arthroplasty (units unknown) (unknown) (unknown) (no date) (unknown) (unknown) Prescriptions: (units unknown) (unknown) (unknown) (no date) (unknown) (unknown) Prevent blood clots (units unknown) (unknown) (unknown) (no date) (unknown) (unknown) Primary Care Provide r: Maria Teresa Larsen (units unknown) (unknown) (unknown) (no date) (unknown) (unknown) Primary care physician: (units unknown) (unknown) (unknown) (no date) (unknown) (unknown) Procedure + Clinicians (units unknown) (unknown) (unknown) (no date) (unknown) (unknown) Procedure: (units unknown) (unknown) (unknown) (no date) (unknown) (unknown) Provider (units unknown) (unknown) (unknown) (no date) (unknown) (unknown) Provider: Raquel Romano P.A-C (units unknown) (unknown) (unknown) (no date) (unknown) (unknown) Pulse Oximetry 96 97 100 (units unknown) (unknown) (unknown) (no date) (unknown) (unknown) Pulse Rate 81 67 71 (units unknown) (unknown) (unknown) (no date) (unknown) (unknown) Quality (units unknown) (unknown) (unknown) (no date) (unknown) (unknown) Respiratory Rate 18 18 17 (units unknown) (unknown) (unknown) (no date) (unknown) (unknown) Rx Instructions: (units unknown) (unknown) (unknown) (no date) (unknown) (unknown) SARS-CoV-2 (PCR) Negative (units unknown) (unknown) (unknown) (no date) (unknown) (unknown) Same procedure as scheduled: Yes (units unknown) (unknown) (unknown) (no date) (unknown) (unknown) Seasonal allergies (units unknown) (unknown) (unknown) (no date) (unknown) (unknown) Signed By: (units unknown) (unknown) (unknown) (no date) (unknown) (unknown) Smoking Status: Carmencita rubin smoker (units unknown) (unknown) (unknown) (no date) (unknown) (unknown) Social History (units unknown) (unknown) (unknown) (no date) (unknown) (unknown) Specimen(s): none sent (units unknown) (unknown) (unknown) (no date) (unknown) (unknown) Stand Alone Forms: Patient Portal/API, Stroke Signs + Symptoms (units unknown) (unknown) (unknown) (no date) (unknown) (unknown) Summary (units unknown) (unknown) (unknown) (no date) (unknown) (unknown) Surgeon: Carolee Paulino (units unknown) (unknown) (unknown) (no date) (unknown) (unknown) Surgical History (units unknown) (unknown) (unknown) (no date) (unknown) (unknown) Temperature 98.0 F 98.4 F 98.1 F (units unknown) (unknown) (unknown) (no date) (unknown) (unknown) Time Patient Seen: 08:25 (units unknown) (unknown) (unknown) (no date) (unknown) (unknown) Time of procedure: 19:40 (units unknown) (unknown) (unknown) (no date) (unknown) (unknown) Tourniquet time (min ): 0 (units unknown) (unknown) (unknown) (no date) (unknown) (unknown) VTE (units unknown) (unknown) (unknown) (no date) (unknown) (unknown) Visit Report/Dischar ge Packet (units unknown) (unknown) (unknown) (no date) (unknown) (unknown) Vital Signs (units unknown) (unknown) (unknown) (no date) (unknown) (unknown) Maria Teresa Larsen PA-C [Primary Care Provider] (units unknown) (unknown) (unknown) (no date) (unknown) (unknown) acetaminophen 325 mg Tablet (units unknown) (unknown) (unknown) (no date) (unknown) (unknown) alcohol intake: current (units unknown) (unknown) (unknown) (no date) (unknown) (unknown) and wanted to go aliza e. Her pain since her original SARA has been well-controlled (units unknown) (unknown) (unknown) (no date) (unknown) (unknown) anesthesia (units unknown) (unknown) (unknown) (no date) (unknown) (unknown) anesthetic in the operating room.? The risks and benefits of the procedure have (units unknown) (unknown) (unknown) (no date) (unknown) (unknown) arthroplasty on 09/14/2022.? She was standing up today and felt a pop and pain (units unknown) (unknown) (unknown) (no date) (unknown) (unknown) aspirin 81 mg Tablet,Delayed Release (Dr/Ec) (units unknown) (unknown) (unknown) (no date) (unknown) (unknown) atorvastatin 20 mg Tablet (units unknown) (unknown) (unknown) (no date) (unknown) (unknown) been discussed with the patient and given the opportunity to ask questions.? The (units unknown) (unknown) (unknown) (no date) (unknown) (unknown) blood vessels, need for additional procedures,cardiopulmo nary complications and (units unknown) (unknown) (unknown) (no date) (unknown) (unknown) cetirizine [Zyrtec] 10 mg Tablet (units unknown) (unknown) (unknown) (no date) (unknown) (unknown) .? The patient expressed a thorough understanding of the risks and benefits (units unknown) (unknown) (unknown) (no date) (unknown) (unknown) discharge. She was eating and voiding without difficulty. She had not yet been (units unknown) (unknown) (unknown) (no date) (unknown) (unknown) docusate sodium 100 mg Capsule (units unknown) (unknown) (unknown) (no date) (unknown) (unknown) escitalopram oxalate 20 mg Tablet (units unknown) (unknown) (unknown) (no date) (unknown) (unknown) evaluated by PT at t he time of my visit. (units unknown) (unknown) (unknown) (no date) (unknown) (unknown) fracture, hardware complications, persistence of pain, damage to nerves and (units unknown) (unknown) (unknown) (no date) (unknown) (unknown) household members: spouse (units unknown) (unknown) (unknown) (no date) (unknown) (unknown) ibuprofen 400 mg Tablet (units unknown) (unknown) (unknown) (no date) (unknown) (unknown) in her hip.? She was found to have an anterior dislocation of her left hip (units unknown) (unknown) (unknown) (no date) (unknown) (unknown) lateral and live intraoperative fluoroscopy (units unknown) (unknown) (unknown) (no date) (unknown) (unknown) of surgery and has elected to proceed.? Consent was signed. (units unknown) (unknown) (unknown) (no date) (unknown) (unknown) omeprazole-sodium bicarbonate [Zegerid] 20-1.1 mg-gram Capsule (units unknown) (unknown) (unknown) (no date) (unknown) (unknown) prosthesis.? She was unable to be successfully sedated for closed reduction in (units unknown) (unknown) (unknown) (no date) (unknown) (unknown) risks of surgery include but are not limited to unsuccessful reduction, (units unknown) (unknown) (unknown) (no date) (unknown) (unknown) solifenacin [Vesicar e] 10 mg Tablet (units unknown) (unknown) (unknown) (no date) (unknown) (unknown) the emergency room a nd was indicated for closed reduction under general (units unknown) (unknown) (unknown) (no date) (unknown) (unknown) traction and knee extension.? Reduction was concentric and confirmed on AP and (units unknown) (unknown) (unknown) (no date) (unknown) (unknown) with very little narcotic medication and she denied the need for more for (units unknown) (unknown) Result panel 1311 (unknown) (no date) (unknown) (unknown) (no value) (units unknown) (unknown) (unknown) (no date) (unknown) (unknown) (past 8 hours): (units unknown) (unknown) (unknown) (no date) (unknown) (unknown) 00:28 09/28/22 (units unknown) (unknown) (unknown) (no date) (unknown) (unknown) 03:54 09/28/22 (units unknown) (unknown) (unknown) (no date) (unknown) (unknown) 09/27/22 17:28 (units unknown) (unknown) (unknown) (no date) (unknown) (unknown) 09/27/22 20:14 (units unknown) (unknown) (unknown) (no date) (unknown) (unknown) 09/27/22 (units unknown) (unknown) (unknown) (no date) (unknown) (unknown) 09/28/22 (units unknown) (unknown) (unknown) (no date) (unknown) (unknown) 08:00 (units unknown) (unknown) (unknown) (no date) (unknown) (unknown) 0RF (units unknown) (unknown) (unknown) (no date) (unknown) (unknown) 1 - 2 tab PO BID (units unknown) (unknown) (unknown) (no date) (unknown) (unknown) 1 cap PO DAILY PRN (Reason: GI Upset) (units unknown) (unknown) (unknown) (no date) (unknown) (unknown) 10 mg PO DAILY PRN (Reason: Seasonal allergies) (units unknown) (unknown) (unknown) (no date) (unknown) (unknown) 10 mg PO DAILY (units unknown) (unknown) (unknown) (no date) (unknown) (unknown) 100 mg PO BID PRN (Reason: constipation) Qty: 30 0RF (units unknown) (unknown) (unknown) (no date) (unknown) (unknown) 15:45 (units unknown) (unknown) (unknown) (no date) (unknown) (unknown) 20 mg PO BEDTIME (units unknown) (unknown) (unknown) (no date) (unknown) (unknown) 20 mg PO DAILY (units unknown) (unknown) (unknown) (no date) (unknown) (unknown) 3151 (units unknown) (unknown) (unknown) (no date) (unknown) (unknown) 400 mg PO Q4H MDD Ma x 2400 mg per day PRN (Reason: Pain/inflammation) Qty: 90 (units unknown) (unknown) (unknown) (no date) (unknown) (unknown) 5/5 strength in hip flexors, quadriceps, hamstrings, DF, PF, EHL on left. (units unknown) (unknown) (unknown) (no date) (unknown) (unknown) 650 mg PO Q6H MDD Ma x 3000 mg per day PRN (Reason: fever or pain) Qty: 90 0RF (units unknown) (unknown) (unknown) (no date) (unknown) (unknown) 81 mg PO BID 42 Days Qty: 84 0RF (units unknown) (unknown) (unknown) (no date) (unknown) (unknown) Admit Date/Time: 09/27/22 17:28 (units unknown) (unknown) (unknown) (no date) (unknown) (unknown) Age/Sex: 72 / F (units unknown) (unknown) (unknown) (no date) (unknown) (unknown) Anesthesia Type: General (units unknown) (unknown) (unknown) (no date) (unknown) (unknown) Anterior left total hip arthroplasty was successfully reduced with longitudinal (units unknown) (unknown) (unknown) (no date) (unknown) (unknown) Assessment and Plan (units unknown) (unknown) (unknown) (no date) (unknown) (unknown) Assessment: (units unknown) (unknown) (unknown) (no date) (unknown) (unknown) Attending Provider: Carolee Paulino (units unknown) (unknown) (unknown) (no date) (unknown) (unknown) BMI 39 (units unknown) (unknown) (unknown) (no date) (unknown) (unknown) Blood Pressure 105/6 6 119/58 L 106/61 (units unknown) (unknown) (unknown) (no date) (unknown) (unknown) Chief complaint: Lt Hip Pain (units unknown) (unknown) (unknown) (no date) (unknown) (unknown) Click Yes if Unassisted: Yes (units unknown) (unknown) (unknown) (no date) (unknown) (unknown) Close reduction unde r general anesthesia left total hip arthroplasty dislocation (units unknown) (unknown) (unknown) (no date) (unknown) (unknown) Closure Type: not applicable (units unknown) (unknown) (unknown) (no date) (unknown) (unknown) Comment: Posterior a nd anterior hip precautions. (units unknown) (unknown) (unknown) (no date) (unknown) (unknown) Consult to Physical Therapy Evaluate + Treat (units unknown) (unknown) (unknown) (no date) (unknown) (unknown) Consults: (units unknown) (unknown) (unknown) (no date) (unknown) (unknown) : 1950 Acct:[id number] (units unknown) (unknown) (unknown) (no date) (unknown) (unknown) Date Patient Seen: 09/28/22 (units unknown) (unknown) (unknown) (no date) (unknown) (unknown) Date of Service: 09/27/22 (units unknown) (unknown) (unknown) (no date) (unknown) (unknown) Date of admission: (units unknown) (unknown) (unknown) (no date) (unknown) (unknown) Date of procedure: 09/27/22 (units unknown) (unknown) (unknown) (no date) (unknown) (unknown) Deep Vein Thrombosis/Pulmonary Embolism Present on Admission: No (units unknown) (unknown) (unknown) (no date) (unknown) (unknown) Depression (units unknown) (unknown) (unknown) (no date) (unknown) (unknown) Discharge Assessment + Plan (units unknown) (unknown) (unknown) (no date) (unknown) (unknown) Discharge Data (units unknown) (unknown) (unknown) (no date) (unknown) (unknown) Discharge Date: 09/28/22 (units unknown) (unknown) (unknown) (no date) (unknown) (unknown) Discharge Diagnosis: (units unknown) (unknown) (unknown) (no date) (unknown) (unknown) Discharge Plan (units unknown) (unknown) (unknown) (no date) (unknown) (unknown) Discharge Providers (units unknown) (unknown) (unknown) (no date) (unknown) (unknown) Discharge Summary (units unknown) (unknown) (unknown) (no date) (unknown) (unknown) Discharge home after PT. Continue ASA BID for VTE prophylaxis, multimodal pain (units unknown) (unknown) (unknown) (no date) (unknown) (unknown) Discharge orders + Medications (units unknown) (unknown) (unknown) (no date) (unknown) (unknown) Discharge provider: (units unknown) (unknown) (unknown) (no date) (unknown) (unknown) Dislocation left tot al hip arthroplasty, s/p closed reduction under general (units unknown) (unknown) (unknown) (no date) (unknown) (unknown) Dislocation of left SARA, s/p closed reduction under general anesthesia (units unknown) (unknown) (unknown) (no date) (unknown) (unknown) Diverticulitis (units unknown) (unknown) (unknown) (no date) (unknown) (unknown) Estimated Blood Loss (mL): 0 (units unknown) (unknown) (unknown) (no date) (unknown) (unknown) Exam Narrative: (units unknown) (unknown) (unknown) (no date) (unknown) (unknown) Exam (units unknown) (unknown) (unknown) (no date) (unknown) (unknown) Excedrin Extra Strength 250-250-65 mg Tablet (units unknown) (unknown) (unknown) (no date) (unknown) (unknown) Findings: (units unknown) (unknown) (unknown) (no date) (unknown) (unknown) Follow up/Referrals: (units unknown) (unknown) (unknown) (no date) (unknown) (unknown) GERD (gastroesophage al reflux disease) (units unknown) (unknown) (unknown) (no date) (unknown) (unknown) HLD (hyperlipidemia) (units unknown) (unknown) (unknown) (no date) (unknown) (unknown) Hearing impaired (units unknown) (unknown) (unknown) (no date) (unknown) (unknown) History of Present Illness (units unknown) (unknown) (unknown) (no date) (unknown) (unknown) History of bladder surgery (units unknown) (unknown) (unknown) (no date) (unknown) (unknown) History of total lef t knee replacement (units unknown) (unknown) (unknown) (no date) (unknown) (unknown) History of total rig ht knee replacement (units unknown) (unknown) (unknown) (no date) (unknown) (unknown) Hospital Course (units unknown) (unknown) (unknown) (no date) (unknown) (unknown) Hospital Course: (units unknown) (unknown) (unknown) (no date) (unknown) (unknown) Hx of left breast biopsy (units unknown) (unknown) (unknown) (no date) (unknown) (unknown) Hx of right breast biopsy (units unknown) (unknown) (unknown) (no date) (unknown) (unknown) Hx of tonsillectomy (units unknown) (unknown) (unknown) (no date) (unknown) (unknown) Indications: (units unknown) (unknown) (unknown) (no date) (unknown) (unknown) [address] [address] (units unknown) (unknown) (unknown) (no date) (unknown) (unknown) Raquel Romano PA-C (units unknown) (unknown) (unknown) (no date) (unknown) (unknown) Maria Teresa Larsen PA-C (units unknown) (unknown) (unknown) (no date) (unknown) (unknown) Laboratory Results - last 24 hr (units unknown) (unknown) (unknown) (no date) (unknown) (unknown) Labs (units unknown) (unknown) (unknown) (no date) (unknown) (unknown) Labs: (units unknown) (unknown) (unknown) (no date) (unknown) (unknown) Medical History (Reviewed 04// @ 18:57 by Carolee Paulino MD) (units unknown) (unknown) (unknown) (no date) (unknown) (unknown) Ms Garcia's hospital course was unremarkable. On POD# 1 she was feeling well (units unknown) (unknown) (unknown) (no date) (unknown) (unknown) Narrative (units unknown) (unknown) (unknown) (no date) (unknown) (unknown) Narrative: (units unknown) (unknown) (unknown) (no date) (unknown) (unknown) No Action (units unknown) (unknown) (unknown) (no date) (unknown) (unknown) Objective (units unknown) (unknown) (unknown) (no date) (unknown) (unknown) Operative Date/Time/Diagnoses (units unknown) (unknown) (unknown) (no date) (unknown) (unknown) Operative Notes (units unknown) (unknown) (unknown) (no date) (unknown) (unknown) Osteoarthritis (units unknown) (unknown) (unknown) (no date) (unknown) (unknown) Oxygen Delivery Meth od Room Air (units unknown) (unknown) (unknown) (no date) (unknown) (unknown) Oxygen Flow Rate 0 1 0 (units unknown) (unknown) (unknown) (no date) (unknown) (unknown) Oxygen Flow Rate 0 (units unknown) (unknown) (unknown) (no date) (unknown) (unknown) PFSH (units unknown) (unknown) (unknown) (no date) (unknown) (unknown) Patient Disposition: Home (units unknown) (unknown) (unknown) (no date) (unknown) (unknown) Patient is a 72-year-old female that had a posterior approach left total hip (units unknown) (unknown) (unknown) (no date) (unknown) (unknown) Patient: Barbara Garcia MR#: [id number] (units unknown) (unknown) (unknown) (no date) (unknown) (unknown) Physician Instructions: Evaluate and Treat (units unknown) (unknown) (unknown) (no date) (unknown) (unknown) Plan of Treatment: (units unknown) (unknown) (unknown) (no date) (unknown) (unknown) Post-op diagnosis: same (units unknown) (unknown) (unknown) (no date) (unknown) (unknown) Pre-op diagnosis: Dislocation left total hip arthroplasty (units unknown) (unknown) (unknown) (no date) (unknown) (unknown) Prescriptions: (units unknown) (unknown) (unknown) (no date) (unknown) (unknown) Prevent blood clots (units unknown) (unknown) (unknown) (no date) (unknown) (unknown) Primary Care Provide r: Maria Teresa Larsen (units unknown) (unknown) (unknown) (no date) (unknown) (unknown) Primary care physician: (units unknown) (unknown) (unknown) (no date) (unknown) (unknown) Procedure + Clinicians (units unknown) (unknown) (unknown) (no date) (unknown) (unknown) Procedure: (units unknown) (unknown) (unknown) (no date) (unknown) (unknown) Provider (units unknown) (unknown) (unknown) (no date) (unknown) (unknown) Provider: Raquel Romano P.A-C (units unknown) (unknown) (unknown) (no date) (unknown) (unknown) Pulse Oximetry 96 97 100 (units unknown) (unknown) (unknown) (no date) (unknown) (unknown) Pulse Rate 81 67 71 (units unknown) (unknown) (unknown) (no date) (unknown) (unknown) Quality (units unknown) (unknown) (unknown) (no date) (unknown) (unknown) Respiratory Rate 18 18 17 (units unknown) (unknown) (unknown) (no date) (unknown) (unknown) Rx Instructions: (units unknown) (unknown) (unknown) (no date) (unknown) (unknown) SARS-CoV-2 (PCR) Negative (units unknown) (unknown) (unknown) (no date) (unknown) (unknown) Same procedure as scheduled: Yes (units unknown) (unknown) (unknown) (no date) (unknown) (unknown) Seasonal allergies (units unknown) (unknown) (unknown) (no date) (unknown) (unknown) Sensation to light touch intact throughout LLE. ELENA dressing removed; incision (units unknown) (unknown) (unknown) (no date) (unknown) (unknown) Signed By: (units unknown) (unknown) (unknown) (no date) (unknown) (unknown) Smoking Status: Carmencita rubin smoker (units unknown) (unknown) (unknown) (no date) (unknown) (unknown) Social History (units unknown) (unknown) (unknown) (no date) (unknown) (unknown) Specimen(s): none sent (units unknown) (unknown) (unknown) (no date) (unknown) (unknown) Stand Alone Forms: Patient Portal/API, Stroke Signs + Symptoms (units unknown) (unknown) (unknown) (no date) (unknown) (unknown) Summary (units unknown) (unknown) (unknown) (no date) (unknown) (unknown) Surgeon: Carolee Paulino (units unknown) (unknown) (unknown) (no date) (unknown) (unknown) Surgical History (units unknown) (unknown) (unknown) (no date) (unknown) (unknown) Temperature 98.0 F 98.4 F 98.1 F (units unknown) (unknown) (unknown) (no date) (unknown) (unknown) Time Patient Seen: 08:25 (units unknown) (unknown) (unknown) (no date) (unknown) (unknown) Time of procedure: 19:40 (units unknown) (unknown) (unknown) (no date) (unknown) (unknown) Tourniquet time (min ): 0 (units unknown) (unknown) (unknown) (no date) (unknown) (unknown) VTE (units unknown) (unknown) (unknown) (no date) (unknown) (unknown) Visit Report/Dischar ge Packet (units unknown) (unknown) (unknown) (no date) (unknown) (unknown) Vital Signs (units unknown) (unknown) (unknown) (no date) (unknown) (unknown) Maria Teresa Larsen PA-C [Primary Care Provider] (units unknown) (unknown) (unknown) (no date) (unknown) (unknown) acetaminophen 325 mg Tablet (units unknown) (unknown) (unknown) (no date) (unknown) (unknown) alcohol intake: current (units unknown) (unknown) (unknown) (no date) (unknown) (unknown) and wanted to go aliza e. Her pain since her original SARA has been well-controlled (units unknown) (unknown) (unknown) (no date) (unknown) (unknown) anesthesia (units unknown) (unknown) (unknown) (no date) (unknown) (unknown) anesthetic in the operating room.? The risks and benefits of the procedure have (units unknown) (unknown) (unknown) (no date) (unknown) (unknown) arthroplasty on 09/14/2022.? She was standing up today and felt a pop and pain (units unknown) (unknown) (unknown) (no date) (unknown) (unknown) aspirin 81 mg Tablet,Delayed Release (Dr/Ec) (units unknown) (unknown) (unknown) (no date) (unknown) (unknown) atorvastatin 20 mg Tablet (units unknown) (unknown) (unknown) (no date) (unknown) (unknown) been discussed with the patient and given the opportunity to ask questions.? The (units unknown) (unknown) (unknown) (no date) (unknown) (unknown) blood vessels, need for additional procedures,cardiopulmo nary complications and (units unknown) (unknown) (unknown) (no date) (unknown) (unknown) cetirizine [Zyrtec] 10 mg Tablet (units unknown) (unknown) (unknown) (no date) (unknown) (unknown) control. F/u w/ Dr River in office next week. (units unknown) (unknown) (unknown) (no date) (unknown) (unknown) .? The patient expressed a thorough understanding of the risks and benefits (units unknown) (unknown) (unknown) (no date) (unknown) (unknown) discharge. She was eating and voiding without difficulty. She had not yet been (units unknown) (unknown) (unknown) (no date) (unknown) (unknown) docusate sodium 100 mg Capsule (units unknown) (unknown) (unknown) (no date) (unknown) (unknown) drainage. (units unknown) (unknown) (unknown) (no date) (unknown) (unknown) escitalopram oxalate 20 mg Tablet (units unknown) (unknown) (unknown) (no date) (unknown) (unknown) evaluated by PT at t he time of my visit. (units unknown) (unknown) (unknown) (no date) (unknown) (unknown) fracture, hardware complications, persistence of pain, damage to nerves and (units unknown) (unknown) (unknown) (no date) (unknown) (unknown) household members: spouse (units unknown) (unknown) (unknown) (no date) (unknown) (unknown) ibuprofen 400 mg Tablet (units unknown) (unknown) (unknown) (no date) (unknown) (unknown) in her hip.? She was found to have an anterior dislocation of her left hip (units unknown) (unknown) (unknown) (no date) (unknown) (unknown) lateral and live intraoperative fluoroscopy (units unknown) (unknown) (unknown) (no date) (unknown) (unknown) of surgery and has elected to proceed.? Consent was signed. (units unknown) (unknown) (unknown) (no date) (unknown) (unknown) omeprazole-sodium bicarbonate [Zegerid] 20-1.1 mg-gram Capsule (units unknown) (unknown) (unknown) (no date) (unknown) (unknown) prosthesis.? She was unable to be successfully sedated for closed reduction in (units unknown) (unknown) (unknown) (no date) (unknown) (unknown) risks of surgery include but are not limited to unsuccessful reduction, (units unknown) (unknown) (unknown) (no date) (unknown) (unknown) solifenacin [Vesicar e] 10 mg Tablet (units unknown) (unknown) (unknown) (no date) (unknown) (unknown) the emergency room a nd was indicated for closed reduction under general (units unknown) (unknown) (unknown) (no date) (unknown) (unknown) traction and knee extension.? Reduction was concentric and confirmed on AP and (units unknown) (unknown) (unknown) (no date) (unknown) (unknown) with some skin glue still intact. Minimally swollen, no erythema, warmth, or (units unknown) (unknown) (unknown) (no date) (unknown) (unknown) with very little narcotic medication and she denied the need for more for (units unknown) (unknown) Result panel 1312 (unknown) (no date) (unknown) (unknown) (no value) (units unknown) (unknown) (unknown) (no date) (unknown) (unknown) (past 8 hours): (units unknown) (unknown) (unknown) (no date) (unknown) (unknown) 00:28 09/28/22 (units unknown) (unknown) (unknown) (no date) (unknown) (unknown) 03:54 09/28/22 (units unknown) (unknown) (unknown) (no date) (unknown) (unknown) 09/27/22 17:28 (units unknown) (unknown) (unknown) (no date) (unknown) (unknown) 09/27/22 20:14 (units unknown) (unknown) (unknown) (no date) (unknown) (unknown) 09/27/22 (units unknown) (unknown) (unknown) (no date) (unknown) (unknown) 09/28/22 (units unknown) (unknown) (unknown) (no date) (unknown) (unknown) 08:00 (units unknown) (unknown) (unknown) (no date) (unknown) (unknown) 0RF (units unknown) (unknown) (unknown) (no date) (unknown) (unknown) 1 - 2 tab PO BID (units unknown) (unknown) (unknown) (no date) (unknown) (unknown) 1 cap PO DAILY PRN (Reason: GI Upset) (units unknown) (unknown) (unknown) (no date) (unknown) (unknown) 10 mg PO DAILY PRN (Reason: Seasonal allergies) (units unknown) (unknown) (unknown) (no date) (unknown) (unknown) 10 mg PO DAILY (units unknown) (unknown) (unknown) (no date) (unknown) (unknown) 100 mg PO BID PRN (Reason: constipation) Qty: 30 0RF (units unknown) (unknown) (unknown) (no date) (unknown) (unknown) 15:45 (units unknown) (unknown) (unknown) (no date) (unknown) (unknown) 20 mg PO BEDTIME (units unknown) (unknown) (unknown) (no date) (unknown) (unknown) 20 mg PO DAILY (units unknown) (unknown) (unknown) (no date) (unknown) (unknown) 3151 (units unknown) (unknown) (unknown) (no date) (unknown) (unknown) 400 mg PO Q4H MDD Ma x 2400 mg per day PRN (Reason: Pain/inflammation) Qty: 90 (units unknown) (unknown) (unknown) (no date) (unknown) (unknown) 5/5 strength in hip flexors, quadriceps, hamstrings, DF, PF, EHL on left. (units unknown) (unknown) (unknown) (no date) (unknown) (unknown) 650 mg PO Q6H MDD Ma x 3000 mg per day PRN (Reason: fever or pain) Qty: 90 0RF (units unknown) (unknown) (unknown) (no date) (unknown) (unknown) 81 mg PO BID 42 Days Qty: 84 0RF (units unknown) (unknown) (unknown) (no date) (unknown) (unknown) Admit Date/Time: 09/27/22 17:28 (units unknown) (unknown) (unknown) (no date) (unknown) (unknown) Age/Sex: 72 / F (units unknown) (unknown) (unknown) (no date) (unknown) (unknown) Anesthesia Type: General (units unknown) (unknown) (unknown) (no date) (unknown) (unknown) Anterior left total hip arthroplasty was successfully reduced with longitudinal (units unknown) (unknown) (unknown) (no date) (unknown) (unknown) Assessment and Plan (units unknown) (unknown) (unknown) (no date) (unknown) (unknown) Assessment: (units unknown) (unknown) (unknown) (no date) (unknown) (unknown) Attending Provider: Carolee Paulino (units unknown) (unknown) (unknown) (no date) (unknown) (unknown) BMI 39 (units unknown) (unknown) (unknown) (no date) (unknown) (unknown) Blood Pressure 105/6 6 119/58 L 106/61 (units unknown) (unknown) (unknown) (no date) (unknown) (unknown) Chief complaint: Lt Hip Pain (units unknown) (unknown) (unknown) (no date) (unknown) (unknown) Click Yes if Unassisted: Yes (units unknown) (unknown) (unknown) (no date) (unknown) (unknown) Close reduction unde r general anesthesia left total hip arthroplasty dislocation (units unknown) (unknown) (unknown) (no date) (unknown) (unknown) Closure Type: not applicable (units unknown) (unknown) (unknown) (no date) (unknown) (unknown) Comment: Posterior a nd anterior hip precautions. (units unknown) (unknown) (unknown) (no date) (unknown) (unknown) Consult to Physical Therapy Evaluate + Treat (units unknown) (unknown) (unknown) (no date) (unknown) (unknown) Consults: (units unknown) (unknown) (unknown) (no date) (unknown) (unknown) : 1950 Acct:[id number] (units unknown) (unknown) (unknown) (no date) (unknown) (unknown) Date Patient Seen: 09/28/22 (units unknown) (unknown) (unknown) (no date) (unknown) (unknown) Date of Service: 09/27/22 (units unknown) (unknown) (unknown) (no date) (unknown) (unknown) Date of admission: (units unknown) (unknown) (unknown) (no date) (unknown) (unknown) Date of procedure: 09/27/22 (units unknown) (unknown) (unknown) (no date) (unknown) (unknown) Deep Vein Thrombosis/Pulmonary Embolism Present on Admission: No (units unknown) (unknown) (unknown) (no date) (unknown) (unknown) Depression (units unknown) (unknown) (unknown) (no date) (unknown) (unknown) Discharge Assessment + Plan (units unknown) (unknown) (unknown) (no date) (unknown) (unknown) Discharge Data (units unknown) (unknown) (unknown) (no date) (unknown) (unknown) Discharge Date: 09/28/22 (units unknown) (unknown) (unknown) (no date) (unknown) (unknown) Discharge Diagnosis: (units unknown) (unknown) (unknown) (no date) (unknown) (unknown) Discharge Plan (units unknown) (unknown) (unknown) (no date) (unknown) (unknown) Discharge Providers (units unknown) (unknown) (unknown) (no date) (unknown) (unknown) Discharge Summary (units unknown) (unknown) (unknown) (no date) (unknown) (unknown) Discharge home after PT. Continue ASA BID for VTE prophylaxis. Follow up in (units unknown) (unknown) (unknown) (no date) (unknown) (unknown) Discharge orders + Medications (units unknown) (unknown) (unknown) (no date) (unknown) (unknown) Discharge provider: (units unknown) (unknown) (unknown) (no date) (unknown) (unknown) Dislocation left tot al hip arthroplasty, s/p closed reduction under general (units unknown) (unknown) (unknown) (no date) (unknown) (unknown) Dislocation of left SARA, s/p closed reduction under general anesthesia (units unknown) (unknown) (unknown) (no date) (unknown) (unknown) Diverticulitis (units unknown) (unknown) (unknown) (no date) (unknown) (unknown) Estimated Blood Loss (mL): 0 (units unknown) (unknown) (unknown) (no date) (unknown) (unknown) Exam Narrative: (units unknown) (unknown) (unknown) (no date) (unknown) (unknown) Exam (units unknown) (unknown) (unknown) (no date) (unknown) (unknown) Excedrin Extra Strength 250-250-65 mg Tablet (units unknown) (unknown) (unknown) (no date) (unknown) (unknown) Findings: (units unknown) (unknown) (unknown) (no date) (unknown) (unknown) Follow up/Referrals: (units unknown) (unknown) (unknown) (no date) (unknown) (unknown) GERD (gastroesophage al reflux disease) (units unknown) (unknown) (unknown) (no date) (unknown) (unknown) HLD (hyperlipidemia) (units unknown) (unknown) (unknown) (no date) (unknown) (unknown) Hearing impaired (units unknown) (unknown) (unknown) (no date) (unknown) (unknown) History of Present Illness (units unknown) (unknown) (unknown) (no date) (unknown) (unknown) History of bladder surgery (units unknown) (unknown) (unknown) (no date) (unknown) (unknown) History of total lef t knee replacement (units unknown) (unknown) (unknown) (no date) (unknown) (unknown) History of total rig ht knee replacement (units unknown) (unknown) (unknown) (no date) (unknown) (unknown) Hospital Course (units unknown) (unknown) (unknown) (no date) (unknown) (unknown) Hospital Course: (units unknown) (unknown) (unknown) (no date) (unknown) (unknown) Hx of left breast biopsy (units unknown) (unknown) (unknown) (no date) (unknown) (unknown) Hx of right breast biopsy (units unknown) (unknown) (unknown) (no date) (unknown) (unknown) Hx of tonsillectomy (units unknown) (unknown) (unknown) (no date) (unknown) (unknown) Indications: (units unknown) (unknown) (unknown) (no date) (unknown) (unknown) [address] [address] (units unknown) (unknown) (unknown) (no date) (unknown) (unknown) Raquel Romano PA-C (units unknown) (unknown) (unknown) (no date) (unknown) (unknown) Maria Teresa Larsen PA-C (units unknown) (unknown) (unknown) (no date) (unknown) (unknown) Laboratory Results - last 24 hr (units unknown) (unknown) (unknown) (no date) (unknown) (unknown) Labs (units unknown) (unknown) (unknown) (no date) (unknown) (unknown) Labs: (units unknown) (unknown) (unknown) (no date) (unknown) (unknown) Medical History (units unknown) (unknown) (unknown) (no date) (unknown) (unknown) Ms Garcia's hospital course was unremarkable. On POD# 1 she was feeling well (units unknown) (unknown) (unknown) (no date) (unknown) (unknown) Narrative (units unknown) (unknown) (unknown) (no date) (unknown) (unknown) Narrative: (units unknown) (unknown) (unknown) (no date) (unknown) (unknown) No Action (units unknown) (unknown) (unknown) (no date) (unknown) (unknown) Objective (units unknown) (unknown) (unknown) (no date) (unknown) (unknown) Operative Date/Time/Diagnoses (units unknown) (unknown) (unknown) (no date) (unknown) (unknown) Operative Notes (units unknown) (unknown) (unknown) (no date) (unknown) (unknown) Osteoarthritis (units unknown) (unknown) (unknown) (no date) (unknown) (unknown) Oxygen Delivery Meth od Room Air (units unknown) (unknown) (unknown) (no date) (unknown) (unknown) Oxygen Flow Rate 0 1 0 (units unknown) (unknown) (unknown) (no date) (unknown) (unknown) Oxygen Flow Rate 0 (units unknown) (unknown) (unknown) (no date) (unknown) (unknown) PFSH (units unknown) (unknown) (unknown) (no date) (unknown) (unknown) Patient Disposition: Home (units unknown) (unknown) (unknown) (no date) (unknown) (unknown) Patient is a 72-year-old female that had a posterior approach left total hip (units unknown) (unknown) (unknown) (no date) (unknown) (unknown) Patient: Barbara Garcia MR#: [id number] (units unknown) (unknown) (unknown) (no date) (unknown) (unknown) Physician Instructions: Evaluate and Treat (units unknown) (unknown) (unknown) (no date) (unknown) (unknown) Plan of Treatment: (units unknown) (unknown) (unknown) (no date) (unknown) (unknown) Post-op diagnosis: same (units unknown) (unknown) (unknown) (no date) (unknown) (unknown) Pre-op diagnosis: Dislocation left total hip arthroplasty (units unknown) (unknown) (unknown) (no date) (unknown) (unknown) Prescriptions: (units unknown) (unknown) (unknown) (no date) (unknown) (unknown) Prevent blood clots (units unknown) (unknown) (unknown) (no date) (unknown) (unknown) Primary Care Provide r: Maria Teresa Larsen (units unknown) (unknown) (unknown) (no date) (unknown) (unknown) Primary care physician: (units unknown) (unknown) (unknown) (no date) (unknown) (unknown) Procedure + Clinicians (units unknown) (unknown) (unknown) (no date) (unknown) (unknown) Procedure: (units unknown) (unknown) (unknown) (no date) (unknown) (unknown) Provider (units unknown) (unknown) (unknown) (no date) (unknown) (unknown) Provider: Raquel Romano P.A-C (units unknown) (unknown) (unknown) (no date) (unknown) (unknown) Pulse Oximetry 96 97 100 (units unknown) (unknown) (unknown) (no date) (unknown) (unknown) Pulse Rate 81 67 71 (units unknown) (unknown) (unknown) (no date) (unknown) (unknown) Quality (units unknown) (unknown) (unknown) (no date) (unknown) (unknown) Respiratory Rate 18 18 17 (units unknown) (unknown) (unknown) (no date) (unknown) (unknown) Rx Instructions: (units unknown) (unknown) (unknown) (no date) (unknown) (unknown) SARS-CoV-2 (PCR) Negative (units unknown) (unknown) (unknown) (no date) (unknown) (unknown) Same procedure as scheduled: Yes (units unknown) (unknown) (unknown) (no date) (unknown) (unknown) Seasonal allergies (units unknown) (unknown) (unknown) (no date) (unknown) (unknown) Sensation to light touch intact throughout LLE. ELENA dressing removed; incision (units unknown) (unknown) (unknown) (no date) (unknown) (unknown) Signed By: (units unknown) (unknown) (unknown) (no date) (unknown) (unknown) Smoking Status: Neve r smoker (units unknown) (unknown) (unknown) (no date) (unknown) (unknown) Social History (units unknown) (unknown) (unknown) (no date) (unknown) (unknown) Specimen(s): none sent (units unknown) (unknown) (unknown) (no date) (unknown) (unknown) Stand Alone Forms: Patient Portal/API, Stroke Signs + Symptoms (units unknown) (unknown) (unknown) (no date) (unknown) (unknown) Summary (units unknown) (unknown) (unknown) (no date) (unknown) (unknown) Surgeon: Carolee Paulino (units unknown) (unknown) (unknown) (no date) (unknown) (unknown) Surgical History (units unknown) (unknown) (unknown) (no date) (unknown) (unknown) Temperature 98.0 F 98.4 F 98.1 F (units unknown) (unknown) (unknown) (no date) (unknown) (unknown) Time Patient Seen: 08:25 (units unknown) (unknown) (unknown) (no date) (unknown) (unknown) Time of procedure: 19:40 (units unknown) (unknown) (unknown) (no date) (unknown) (unknown) Tourniquet time (min ): 0 (units unknown) (unknown) (unknown) (no date) (unknown) (unknown) VTE (units unknown) (unknown) (unknown) (no date) (unknown) (unknown) Visit Report/Dischar ge Packet (units unknown) (unknown) (unknown) (no date) (unknown) (unknown) Vital Signs (units unknown) (unknown) (unknown) (no date) (unknown) (unknown) Maria Teresa Larsen PA-C [Primary Care Provider] (units unknown) (unknown) (unknown) (no date) (unknown) (unknown) acetaminophen 325 mg Tablet (units unknown) (unknown) (unknown) (no date) (unknown) (unknown) alcohol intake: current (units unknown) (unknown) (unknown) (no date) (unknown) (unknown) and wanted to go aliza e. Her pain since her original SARA has been well-controlled (units unknown) (unknown) (unknown) (no date) (unknown) (unknown) anesthesia (units unknown) (unknown) (unknown) (no date) (unknown) (unknown) anesthetic in the operating room.? The risks and benefits of the procedure have (units unknown) (unknown) (unknown) (no date) (unknown) (unknown) arthroplasty on 09/14/2022.? She was standing up today and felt a pop and pain (units unknown) (unknown) (unknown) (no date) (unknown) (unknown) aspirin 81 mg Tablet,Delayed Release (Dr/Ec) (units unknown) (unknown) (unknown) (no date) (unknown) (unknown) atorvastatin 20 mg Tablet (units unknown) (unknown) (unknown) (no date) (unknown) (unknown) been discussed with the patient and given the opportunity to ask questions.? The (units unknown) (unknown) (unknown) (no date) (unknown) (unknown) blood vessels, need for additional procedures,cardiopulmo nary complications and (units unknown) (unknown) (unknown) (no date) (unknown) (unknown) cetirizine [Zyrtec] 10 mg Tablet (units unknown) (unknown) (unknown) (no date) (unknown) (unknown) .? The patient expressed a thorough understanding of the risks and benefits (units unknown) (unknown) (unknown) (no date) (unknown) (unknown) discharge. She was eating and voiding without difficulty. She had not yet been (units unknown) (unknown) (unknown) (no date) (unknown) (unknown) docusate sodium 100 mg Capsule (units unknown) (unknown) (unknown) (no date) (unknown) (unknown) drainage. (units unknown) (unknown) (unknown) (no date) (unknown) (unknown) escitalopram oxalate 20 mg Tablet (units unknown) (unknown) (unknown) (no date) (unknown) (unknown) evaluated by PT at t he time of my visit. (units unknown) (unknown) (unknown) (no date) (unknown) (unknown) fracture, hardware complications, persistence of pain, damage to nerves and (units unknown) (unknown) (unknown) (no date) (unknown) (unknown) household members: spouse (units unknown) (unknown) (unknown) (no date) (unknown) (unknown) ibuprofen 400 mg Tablet (units unknown) (unknown) (unknown) (no date) (unknown) (unknown) in her hip.? She was found to have an anterior dislocation of her left hip (units unknown) (unknown) (unknown) (no date) (unknown) (unknown) lateral and live intraoperative fluoroscopy (units unknown) (unknown) (unknown) (no date) (unknown) (unknown) of surgery and has elected to proceed.? Consent was signed. (units unknown) (unknown) (unknown) (no date) (unknown) (unknown) office w/ Dr River next week. (units unknown) (unknown) (unknown) (no date) (unknown) (unknown) omeprazole-sodium bicarbonate [Zegerid] 20-1.1 mg-gram Capsule (units unknown) (unknown) (unknown) (no date) (unknown) (unknown) prosthesis.? She was unable to be successfully sedated for closed reduction in (units unknown) (unknown) (unknown) (no date) (unknown) (unknown) risks of surgery include but are not limited to unsuccessful reduction, (units unknown) (unknown) (unknown) (no date) (unknown) (unknown) solifenacin [Vesicar e] 10 mg Tablet (units unknown) (unknown) (unknown) (no date) (unknown) (unknown) the emergency room a nd was indicated for closed reduction under general (units unknown) (unknown) (unknown) (no date) (unknown) (unknown) traction and knee extension.? Reduction was concentric and confirmed on AP and (units unknown) (unknown) (unknown) (no date) (unknown) (unknown) with some skin glue still intact. Minimally swollen, no erythema, warmth, or (units unknown) (unknown) (unknown) (no date) (unknown) (unknown) with very little narcotic medication and she denied the need for more for (units unknown) (unknown) Result panel [id number] (unknown) (no date) (unknown) (unknown) (no value) (units unknown) (unknown) (unknown) (no date) (unknown) (unknown) (past 8 hours): (units unknown) (unknown) (unknown) (no date) (unknown) (unknown) 00:28 09/28/22 (units unknown) (unknown) (unknown) (no date) (unknown) (unknown) 03:54 09/28/22 (units unknown) (unknown) (unknown) (no date) (unknown) (unknown) 09/27/22 17:28 (units unknown) (unknown) (unknown) (no date) (unknown) (unknown) 09/27/22 20:14 (units unknown) (unknown) (unknown) (no date) (unknown) (unknown) 09/27/22 (units unknown) (unknown) (unknown) (no date) (unknown) (unknown) 09/28/22 0839 (units unknown) (unknown) (unknown) (no date) (unknown) (unknown) 09/28/22 (units unknown) (unknown) (unknown) (no date) (unknown) (unknown) 08:00 (units unknown) (unknown) (unknown) (no date) (unknown) (unknown) 0RF (units unknown) (unknown) (unknown) (no date) (unknown) (unknown) 1 - 2 tab PO BID (units unknown) (unknown) (unknown) (no date) (unknown) (unknown) 1 cap PO DAILY PRN (Reason: GI Upset) (units unknown) (unknown) (unknown) (no date) (unknown) (unknown) 10 mg PO DAILY PRN (Reason: Seasonal allergies) (units unknown) (unknown) (unknown) (no date) (unknown) (unknown) 10 mg PO DAILY (units unknown) (unknown) (unknown) (no date) (unknown) (unknown) 100 mg PO BID PRN (Reason: constipation) Qty: 30 0RF (units unknown) (unknown) (unknown) (no date) (unknown) (unknown) 15:45 (units unknown) (unknown) (unknown) (no date) (unknown) (unknown) 20 mg PO BEDTIME (units unknown) (unknown) (unknown) (no date) (unknown) (unknown) 20 mg PO DAILY (units unknown) (unknown) (unknown) (no date) (unknown) (unknown) 3151 (units unknown) (unknown) (unknown) (no date) (unknown) (unknown) 400 mg PO Q4H MDD Ma x 2400 mg per day PRN (Reason: Pain/inflammation) Qty: 90 (units unknown) (unknown) (unknown) (no date) (unknown) (unknown) 5/5 strength in hip flexors, quadriceps, hamstrings, DF, PF, EHL on left. (units unknown) (unknown) (unknown) (no date) (unknown) (unknown) 650 mg PO Q6H MDD Ma x 3000 mg per day PRN (Reason: fever or pain) Qty: 90 0RF (units unknown) (unknown) (unknown) (no date) (unknown) (unknown) 81 mg PO BID 42 Days Qty: 84 0RF (units unknown) (unknown) (unknown) (no date) (unknown) (unknown) Activity: Weightbear as tolerated on left leg. Dislocation precautions: Avoid (units unknown) (unknown) (unknown) (no date) (unknown) (unknown) Admit Date/Time: 09/27/22 17:28 (units unknown) (unknown) (unknown) (no date) (unknown) (unknown) Age/Sex: 72 / F (units unknown) (unknown) (unknown) (no date) (unknown) (unknown) Anesthesia Type: General (units unknown) (unknown) (unknown) (no date) (unknown) (unknown) Anterior left total hip arthroplasty was successfully reduced with longitudinal (units unknown) (unknown) (unknown) (no date) (unknown) (unknown) Assessment and Plan (units unknown) (unknown) (unknown) (no date) (unknown) (unknown) Assessment: (units unknown) (unknown) (unknown) (no date) (unknown) (unknown) Attending Provider: Carolee Paulino (units unknown) (unknown) (unknown) (no date) (unknown) (unknown) BMI 39 (units unknown) (unknown) (unknown) (no date) (unknown) (unknown) Blood Pressure 105/6 6 119/58 L 106/61 (units unknown) (unknown) (unknown) (no date) (unknown) (unknown) Chief complaint: Lt Hip Pain (units unknown) (unknown) (unknown) (no date) (unknown) (unknown) Click Yes if Unassisted: Yes (units unknown) (unknown) (unknown) (no date) (unknown) (unknown) Close reduction unde r general anesthesia left total hip arthroplasty dislocation (units unknown) (unknown) (unknown) (no date) (unknown) (unknown) Closure Type: not applicable (units unknown) (unknown) (unknown) (no date) (unknown) (unknown) Cold/Heat Therapy: I ce to hip as needed for pain. (units unknown) (unknown) (unknown) (no date) (unknown) (unknown) Comment: Posterior a nd anterior hip precautions. (units unknown) (unknown) (unknown) (no date) (unknown) (unknown) Consult to Physical Therapy Evaluate + Treat (units unknown) (unknown) (unknown) (no date) (unknown) (unknown) Consults: (units unknown) (unknown) (unknown) (no date) (unknown) (unknown) Continued (units unknown) (unknown) (unknown) (no date) (unknown) (unknown) : 1950 Acct:[id number] (units unknown) (unknown) (unknown) (no date) (unknown) (unknown) Date Patient Seen: 09/28/22 (units unknown) (unknown) (unknown) (no date) (unknown) (unknown) Date of Service: 09/27/22 (units unknown) (unknown) (unknown) (no date) (unknown) (unknown) Date of admission: (units unknown) (unknown) (unknown) (no date) (unknown) (unknown) Date of procedure: 09/27/22 (units unknown) (unknown) (unknown) (no date) (unknown) (unknown) Deep Vein Thrombosis/Pulmonary Embolism Present on Admission: No (units unknown) (unknown) (unknown) (no date) (unknown) (unknown) Depression (units unknown) (unknown) (unknown) (no date) (unknown) (unknown) Diet/Activity/Treatm en ts (units unknown) (unknown) (unknown) (no date) (unknown) (unknown) Diet: Diet as Tolerated (units unknown) (unknown) (unknown) (no date) (unknown) (unknown) Discharge Assessment + Plan (units unknown) (unknown) (unknown) (no date) (unknown) (unknown) Discharge Data (units unknown) (unknown) (unknown) (no date) (unknown) (unknown) Discharge Date: 09/28/22 (units unknown) (unknown) (unknown) (no date) (unknown) (unknown) Discharge Diagnosis: (units unknown) (unknown) (unknown) (no date) (unknown) (unknown) Discharge Plan (units unknown) (unknown) (unknown) (no date) (unknown) (unknown) Discharge Providers (units unknown) (unknown) (unknown) (no date) (unknown) (unknown) Discharge Summary (units unknown) (unknown) (unknown) (no date) (unknown) (unknown) Discharge home after PT. Continue ASA BID for VTE prophylaxis. Follow up in (units unknown) (unknown) (unknown) (no date) (unknown) (unknown) Discharge orders + Medications (units unknown) (unknown) (unknown) (no date) (unknown) (unknown) Discharge provider: (units unknown) (unknown) (unknown) (no date) (unknown) (unknown) Dislocation left tot al hip arthroplasty, s/p closed reduction under general (units unknown) (unknown) (unknown) (no date) (unknown) (unknown) Dislocation of left SARA, s/p closed reduction under general anesthesia (units unknown) (unknown) (unknown) (no date) (unknown) (unknown) Diverticulitis (units unknown) (unknown) (unknown) (no date) (unknown) (unknown) Estimated Blood Loss (mL): 0 (units unknown) (unknown) (unknown) (no date) (unknown) (unknown) Exam Narrative: (units unknown) (unknown) (unknown) (no date) (unknown) (unknown) Exam (units unknown) (unknown) (unknown) (no date) (unknown) (unknown) Excedrin Extra Strength 250-250-65 mg Tablet (units unknown) (unknown) (unknown) (no date) (unknown) (unknown) Findings: (units unknown) (unknown) (unknown) (no date) (unknown) (unknown) Follow up/Referrals: (units unknown) (unknown) (unknown) (no date) (unknown) (unknown) GERD (gastroesophage al reflux disease) (units unknown) (unknown) (unknown) (no date) (unknown) (unknown) HLD (hyperlipidemia) (units unknown) (unknown) (unknown) (no date) (unknown) (unknown) Hearing impaired (units unknown) (unknown) (unknown) (no date) (unknown) (unknown) History of Present Illness (units unknown) (unknown) (unknown) (no date) (unknown) (unknown) History of bladder surgery (units unknown) (unknown) (unknown) (no date) (unknown) (unknown) History of total lef t knee replacement (units unknown) (unknown) (unknown) (no date) (unknown) (unknown) History of total rig ht knee replacement (units unknown) (unknown) (unknown) (no date) (unknown) (unknown) Hospital Course (units unknown) (unknown) (unknown) (no date) (unknown) (unknown) Hospital Course: (units unknown) (unknown) (unknown) (no date) (unknown) (unknown) Hx of left breast biopsy (units unknown) (unknown) (unknown) (no date) (unknown) (unknown) Hx of right breast biopsy (units unknown) (unknown) (unknown) (no date) (unknown) (unknown) Hx of tonsillectomy (units unknown) (unknown) (unknown) (no date) (unknown) (unknown) Indications: (units unknown) (unknown) (unknown) (no date) (unknown) (unknown) [address] [address] (units unknown) (unknown) (unknown) (no date) (unknown) (unknown) Raquel Romano PA-C (units unknown) (unknown) (unknown) (no date) (unknown) (unknown) Maria Teresa Larsen PA-C (units unknown) (unknown) (unknown) (no date) (unknown) (unknown) Laboratory Results - last 24 hr (units unknown) (unknown) (unknown) (no date) (unknown) (unknown) Labs (units unknown) (unknown) (unknown) (no date) (unknown) (unknown) Labs: (units unknown) (unknown) (unknown) (no date) (unknown) (unknown) Medical History (units unknown) (unknown) (unknown) (no date) (unknown) (unknown) Ms Garcia's hospital course was unremarkable. On POD# 1 she was feeling well (units unknown) (unknown) (unknown) (no date) (unknown) (unknown) Narrative (units unknown) (unknown) (unknown) (no date) (unknown) (unknown) Narrative: (units unknown) (unknown) (unknown) (no date) (unknown) (unknown) Objective (units unknown) (unknown) (unknown) (no date) (unknown) (unknown) Operative Date/Time/Diagnoses (units unknown) (unknown) (unknown) (no date) (unknown) (unknown) Operative Notes (units unknown) (unknown) (unknown) (no date) (unknown) (unknown) Osteoarthritis (units unknown) (unknown) (unknown) (no date) (unknown) (unknown) Other wound treatmen t: May shower; pat dry immediately afterwards. No bathing (units unknown) (unknown) (unknown) (no date) (unknown) (unknown) Oxygen Delivery Meth od Room Air (units unknown) (unknown) (unknown) (no date) (unknown) (unknown) Oxygen Flow Rate 0 1 0 (units unknown) (unknown) (unknown) (no date) (unknown) (unknown) Oxygen Flow Rate 0 (units unknown) (unknown) (unknown) (no date) (unknown) (unknown) PFSH (units unknown) (unknown) (unknown) (no date) (unknown) (unknown) Patient Disposition: Home (units unknown) (unknown) (unknown) (no date) (unknown) (unknown) Patient is a 72-year-old female that had a posterior approach left total hip (units unknown) (unknown) (unknown) (no date) (unknown) (unknown) Patient: Barbara Garcia MR#: [id number] (units unknown) (unknown) (unknown) (no date) (unknown) (unknown) Physician Instructions: Evaluate and Treat (units unknown) (unknown) (unknown) (no date) (unknown) (unknown) Plan of Treatment: (units unknown) (unknown) (unknown) (no date) (unknown) (unknown) Post-op diagnosis: same (units unknown) (unknown) (unknown) (no date) (unknown) (unknown) Pre-op diagnosis: Dislocation left total hip arthroplasty (units unknown) (unknown) (unknown) (no date) (unknown) (unknown) Prescriptions: (units unknown) (unknown) (unknown) (no date) (unknown) (unknown) Prevent blood clots (units unknown) (unknown) (unknown) (no date) (unknown) (unknown) Primary Care Provide r: Maria Teresa Larsen (units unknown) (unknown) (unknown) (no date) (unknown) (unknown) Primary care physician: (units unknown) (unknown) (unknown) (no date) (unknown) (unknown) Procedure + Clinicians (units unknown) (unknown) (unknown) (no date) (unknown) (unknown) Procedure: (units unknown) (unknown) (unknown) (no date) (unknown) (unknown) Provider (units unknown) (unknown) (unknown) (no date) (unknown) (unknown) Provider: Raquel Romano P.A-C (units unknown) (unknown) (unknown) (no date) (unknown) (unknown) Pulse Oximetry 96 97 100 (units unknown) (unknown) (unknown) (no date) (unknown) (unknown) Pulse Rate 81 67 71 (units unknown) (unknown) (unknown) (no date) (unknown) (unknown) Quality (units unknown) (unknown) (unknown) (no date) (unknown) (unknown) Report to your healthcare provider any signs of infection, such as:: chills, (units unknown) (unknown) (unknown) (no date) (unknown) (unknown) Respiratory Rate 18 18 17 (units unknown) (unknown) (unknown) (no date) (unknown) (unknown) Rx Instructions: (units unknown) (unknown) (unknown) (no date) (unknown) (unknown) SARS-CoV-2 (PCR) Negative (units unknown) (unknown) (unknown) (no date) (unknown) (unknown) Same procedure as scheduled: Yes (units unknown) (unknown) (unknown) (no date) (unknown) (unknown) Seasonal allergies (units unknown) (unknown) (unknown) (no date) (unknown) (unknown) Sensation to light touch intact throughout LLE. ELENA dressing removed; incision (units unknown) (unknown) (unknown) (no date) (unknown) (unknown) Signed By:<Electronically signed by Raquel Romano> (units unknown) (unknown) (unknown) (no date) (unknown) (unknown) Skin/Wound/Dressing Care (units unknown) (unknown) (unknown) (no date) (unknown) (unknown) Annika River MD [Physician] - As previously scheduled (Follow up w/ Dr River (units unknown) (unknown) (unknown) (no date) (unknown) (unknown) Smoking Status: Carmencita rubin smoker (units unknown) (unknown) (unknown) (no date) (unknown) (unknown) Social History (units unknown) (unknown) (unknown) (no date) (unknown) (unknown) Specimen(s): none sent (units unknown) (unknown) (unknown) (no date) (unknown) (unknown) Stand Alone Forms: Patient Portal/API, Stroke Signs + Symptoms (units unknown) (unknown) (unknown) (no date) (unknown) (unknown) Summary (units unknown) (unknown) (unknown) (no date) (unknown) (unknown) Surgeon: Carolee Paulino (units unknown) (unknown) (unknown) (no date) (unknown) (unknown) Surgical History (units unknown) (unknown) (unknown) (no date) (unknown) (unknown) Temperature 98.0 F 98.4 F 98.1 F (units unknown) (unknown) (unknown) (no date) (unknown) (unknown) Time Patient Seen: 08:25 (units unknown) (unknown) (unknown) (no date) (unknown) (unknown) Time of procedure: 19:40 (units unknown) (unknown) (unknown) (no date) (unknown) (unknown) Tourniquet time (min ): 0 (units unknown) (unknown) (unknown) (no date) (unknown) (unknown) VTE (units unknown) (unknown) (unknown) (no date) (unknown) (unknown) Visit Report/Dischar ge Packet (units unknown) (unknown) (unknown) (no date) (unknown) (unknown) Vital Signs (units unknown) (unknown) (unknown) (no date) (unknown) (unknown) Maria Teresa Larsen PA-C [Primary Care Provider] (units unknown) (unknown) (unknown) (no date) (unknown) (unknown) acetaminophen 325 mg Tablet (units unknown) (unknown) (unknown) (no date) (unknown) (unknown) alcohol intake: current (units unknown) (unknown) (unknown) (no date) (unknown) (unknown) and wanted to go aliza e. Her pain since her original SARA has been well-controlled (units unknown) (unknown) (unknown) (no date) (unknown) (unknown) anesthesia (units unknown) (unknown) (unknown) (no date) (unknown) (unknown) anesthetic in the operating room.? The risks and benefits of the procedure have (units unknown) (unknown) (unknown) (no date) (unknown) (unknown) arthroplasty on 09/14/2022.? She was standing up today and felt a pop and pain (units unknown) (unknown) (unknown) (no date) (unknown) (unknown) aspirin 81 mg Tablet,Delayed Release (Dr/Ec) (units unknown) (unknown) (unknown) (no date) (unknown) (unknown) atorvastatin 20 mg Tablet (units unknown) (unknown) (unknown) (no date) (unknown) (unknown) been discussed with the patient and given the opportunity to ask questions.? The (units unknown) (unknown) (unknown) (no date) (unknown) (unknown) bending past 90?. Avoid crossing the legs. Avoid internal and external (units unknown) (unknown) (unknown) (no date) (unknown) (unknown) blood vessels, need for additional procedures,cardiopulmo nary complications and (units unknown) (unknown) (unknown) (no date) (unknown) (unknown) cetirizine [Zyrtec] 10 mg Tablet (units unknown) (unknown) (unknown) (no date) (unknown) (unknown) .? The patient expressed a thorough understanding of the risks and benefits (units unknown) (unknown) (unknown) (no date) (unknown) (unknown) discharge. She was eating and voiding without difficulty. She had not yet been (units unknown) (unknown) (unknown) (no date) (unknown) (unknown) docusate sodium 100 mg Capsule (units unknown) (unknown) (unknown) (no date) (unknown) (unknown) drainage. (units unknown) (unknown) (unknown) (no date) (unknown) (unknown) escitalopram oxalate 20 mg Tablet (units unknown) (unknown) (unknown) (no date) (unknown) (unknown) evaluated by PT at t he time of my visit. (units unknown) (unknown) (unknown) (no date) (unknown) (unknown) fever, night sweats, unusual drainage and unusual redness (units unknown) (unknown) (unknown) (no date) (unknown) (unknown) fracture, hardware complications, persistence of pain, damage to nerves and (units unknown) (unknown) (unknown) (no date) (unknown) (unknown) household members: spouse (units unknown) (unknown) (unknown) (no date) (unknown) (unknown) ibuprofen 400 mg Tablet (units unknown) (unknown) (unknown) (no date) (unknown) (unknown) in her hip.? She was found to have an anterior dislocation of her left hip (units unknown) (unknown) (unknown) (no date) (unknown) (unknown) incision is complete ly healed. (units unknown) (unknown) (unknown) (no date) (unknown) (unknown) lateral and live intraoperative fluoroscopy (units unknown) (unknown) (unknown) (no date) (unknown) (unknown) of surgery and has elected to proceed.? Consent was signed. (units unknown) (unknown) (unknown) (no date) (unknown) (unknown) office w/ Dr River next week. (units unknown) (unknown) (unknown) (no date) (unknown) (unknown) omeprazole-sodium bicarbonate [Zegerid] 20-1.1 mg-gram Capsule (units unknown) (unknown) (unknown) (no date) (unknown) (unknown) on 10/03/2022 @ 3:30 pm at [facility] in [place].) (units unknown) (unknown) (unknown) (no date) (unknown) (unknown) or otherwise soaking incision. Do not apply any creams, lotions, or ointments (units unknown) (unknown) (unknown) (no date) (unknown) (unknown) prosthesis.? She was unable to be successfully sedated for closed reduction in (units unknown) (unknown) (unknown) (no date) (unknown) (unknown) risks of surgery include but are not limited to unsuccessful reduction, (units unknown) (unknown) (unknown) (no date) (unknown) (unknown) rotation of the feet , do not turn across the legs. Walk with the toes pointed (units unknown) (unknown) (unknown) (no date) (unknown) (unknown) solifenacin [Vesicar e] 10 mg Tablet (units unknown) (unknown) (unknown) (no date) (unknown) (unknown) straight forward. (units unknown) (unknown) (unknown) (no date) (unknown) (unknown) the emergency room a nd was indicated for closed reduction under general (units unknown) (unknown) (unknown) (no date) (unknown) (unknown) to incision. Continu e these instructions for at least the next 2 weeks or until (units unknown) (unknown) (unknown) (no date) (unknown) (unknown) traction and knee extension.? Reduction was concentric and confirmed on AP and (units unknown) (unknown) (unknown) (no date) (unknown) (unknown) with some skin glue still intact. Minimally swollen, no erythema, warmth, or (units unknown) (unknown) (unknown) (no date) (unknown) (unknown) with very little narcotic medication and she denied the need for more for (units unknown) (unknown) Result panel 1314 (unknown) (no date) (unknown) (unknown) (no value) (units unknown) (unknown) (unknown) (no date) (unknown) (unknown) 09/29/22 (units unknown) (unknown) (unknown) (no date) (unknown) (unknown) [address] [place] [address] (units unknown) (unknown) (unknown) (no date) (unknown) (unknown) [id number] (units unknown) (unknown) (unknown) (no date) (unknown) (unknown) Accession Number: [id number] (units unknown) (unknown) (unknown) (no date) (unknown) (unknown) Age/Sex: 72 / F Date of Service: (units unknown) (unknown) (unknown) (no date) (unknown) (unknown) [place] [address] (units unknown) (unknown) (unknown) (no date) (unknown) (unknown) Approved by: Parish Demarco M.D. on 09/29/2022 at 12:15 (units unknown) (unknown) (unknown) (no date) (unknown) (unknown) Bones: Anteriorly dislocated left hip prosthesis noted. Right hip (units unknown) (unknown) (unknown) (no date) (unknown) (unknown) COMPARISON: [facility], CR, XR HIP W PEL IF DONE LT 2V, 09/27/2022, 19:35. (units unknown) (unknown) (unknown) (no date) (unknown) (unknown) : 1950 Acct:[id number] (units unknown) (unknown) (unknown) (no date) (unknown) (unknown) FINDINGS: (units unknown) (unknown) (unknown) (no date) (unknown) (unknown) IMPRESSION: Anterior dislocation, left total hip arthroplasty (units unknown) (unknown) (unknown) (no date) (unknown) (unknown) INDICATIONS: ? dislocation (units unknown) (unknown) (unknown) (no date) (unknown) (unknown) [facility] (units unknown) (unknown) (unknown) (no date) (unknown) (unknown) Loc: ED (units unknown) (unknown) (unknown) (no date) (unknown) (unknown) Ordering Provider: Magdaleno Kingston MD (units unknown) (unknown) (unknown) (no date) (unknown) (unknown) PROCEDURE: XR HIP W PEL IF DONE LT 2V (units unknown) (unknown) (unknown) (no date) (unknown) (unknown) Patient: Barbara Garcia MR#: [id number] (units unknown) (unknown) (unknown) (no date) (unknown) (unknown) Procedure: XR hip w pel if done LT 2V (units unknown) (unknown) (unknown) (no date) (unknown) (unknown) Signed (units unknown) (unknown) (unknown) (no date) (unknown) (unknown) Soft tissues: No suspicious soft tissue calcifications or masses. (units unknown) (unknown) (unknown) (no date) (unknown) (unknown) TECHNIQUE: 2 views o f the hip were acquired. (units unknown) (unknown) (unknown) (no date) (unknown) (unknown) XRay Report (units unknown) (unknown) (unknown) (no date) (unknown) (unknown) evidence of pelvic fracture (units unknown) (unknown) (unknown) (no date) (unknown) (unknown) unremarkable. No (units unknown) (unknown) Result panel 1315 (unknown) (no date) (unknown) (unknown) 0 /ul (unknown) (unknown) (no date) (unknown) (unknown) 0.6 % (unknown) (unknown) (no date) (unknown) (unknown) 10.6 g/dl (unknown) (unknown) (no date) (unknown) (unknown) 1100 /ul (unknown) (unknown) (no date) (unknown) (unknown) 13.3 % (unknown) (unknown) (no date) (unknown) (unknown) 14.4 % (unknown) (unknown) (no date) (unknown) (unknown) 2.7 % (unknown) (unknown) (no date) (unknown) (unknown) 200 /ul (unknown) (unknown) (no date) (unknown) (unknown) 29.9 pg (unknown) (unknown) (no date) (unknown) (unknown) 3.53 x10 6/ul (unknown) (unknown) (no date) (unknown) (unknown) 31.1 % (unknown) (unknown) (no date) (unknown) (unknown) 315 x10 3/ul (unknown) (unknown) (no date) (unknown) (unknown) 34.0 % (unknown) (unknown) (no date) (unknown) (unknown) 400 /ul (unknown) (unknown) (no date) (unknown) (unknown) 5.4 % (unknown) (unknown) (no date) (unknown) (unknown) 6300 /ul (unknown) (unknown) (no date) (unknown) (unknown) 78.0 % (unknown) (unknown) (no date) (unknown) (unknown) 8.0 x10 3/ul (unknown) (unknown) (no date) (unknown) (unknown) 87.9 fl (unknown) Result panel 1316 (unknown) (no date) (unknown) (unknown) 0.4 mg/dl (unknown) (unknown) (no date) (unknown) (unknown) 1.14 mg/dl (unknown) (unknown) (no date) (unknown) (unknown) 1.4 (units unknown) (unknown) (unknown) (no date) (unknown) (unknown) 105 mmol/l (unknown) (unknown) (no date) (unknown) (unknown) 106 mg/dl (unknown) (unknown) (no date) (unknown) (unknown) 106 mg/dl (unknown) (unknown) (no date) (unknown) (unknown) 13.2 (units unknown) (unknown) (unknown) (no date) (unknown) (unknown) 140 mmol/l (unknown) (unknown) (no date) (unknown) (unknown) 15 mg/dl (unknown) (unknown) (no date) (unknown) (unknown) 2.7 g/dl (unknown) (unknown) (no date) (unknown) (unknown) 21 iu/l (unknown) (unknown) (no date) (unknown) (unknown) 29 mmol/l (unknown) (unknown) (no date) (unknown) (unknown) 3.5 mmol/l (unknown) (unknown) (no date) (unknown) (unknown) 3.7 g/dl (unknown) (unknown) (no date) (unknown) (unknown) 37 iu/l (unknown) (unknown) (no date) (unknown) (unknown) 44 u/l (unknown) (unknown) (no date) (unknown) (unknown) 51 ml/min (unknown) (unknown) (no date) (unknown) (unknown) 51 ml/min (unknown) (unknown) (no date) (unknown) (unknown) 6.4 g/dl (unknown) (unknown) (no date) (unknown) (unknown) 8.8 mg/dl (unknown) (unknown) (no date) (unknown) (unknown) 89 u/l (unknown) Result panel 1317 (unknown) (no date) (unknown) (unknown) (no value) (units unknown) (unknown) (unknown) (no date) (unknown) (unknown) #90 tabs (units unknown) (unknown) (unknown) (no date) (unknown) (unknown) (Zegerid) (units unknown) (unknown) (unknown) (no date) (unknown) (unknown) 09/29/22 09/29/22 Range/Units (units unknown) (unknown) (unknown) (no date) (unknown) (unknown) 09/29/22 11:44 (units unknown) (unknown) (unknown) (no date) (unknown) (unknown) 09/29/22 12:25 (units unknown) (unknown) (unknown) (no date) (unknown) (unknown) 09/29/22 12:47 (units unknown) (unknown) (unknown) (no date) (unknown) (unknown) 09/29/22 (units unknown) (unknown) (unknown) (no date) (unknown) (unknown) 0RF (units unknown) (unknown) (unknown) (no date) (unknown) (unknown) 1 - 2 tab PO BID (units unknown) (unknown) (unknown) (no date) (unknown) (unknown) 1 cap PO DAILY PRN (Reason: GI Upset) (units unknown) (unknown) (unknown) (no date) (unknown) (unknown) 10 mg PO DAILY PRN (Reason: Seasonal allergies) (units unknown) (unknown) (unknown) (no date) (unknown) (unknown) 10 mg PO DAILY (units unknown) (unknown) (unknown) (no date) (unknown) (unknown) 100 mg PO BID PRN (Reason: constipation) Qty: 30 0RF (units unknown) (unknown) (unknown) (no date) (unknown) (unknown) 11:39 (units unknown) (unknown) (unknown) (no date) (unknown) (unknown) 12:25 12:25 (units unknown) (unknown) (unknown) (no date) (unknown) (unknown) 20 mg PO BEDTIME (units unknown) (unknown) (unknown) (no date) (unknown) (unknown) 20 mg PO DAILY (units unknown) (unknown) (unknown) (no date) (unknown) (unknown) 3151 (units unknown) (unknown) (unknown) (no date) (unknown) (unknown) 400 mg PO Q4H MDD Ma x 2400 mg per day PRN (Reason: Pain/inflammation) Qty: 90 (units unknown) (unknown) (unknown) (no date) (unknown) (unknown) 650 mg PO Q6H MDD Ma x 3000 mg per day PRN (Reason: fever or pain) Qty: 90 0RF (units unknown) (unknown) (unknown) (no date) (unknown) (unknown) 81 mg PO BID 42 Days Qty: 84 0RF (units unknown) (unknown) (unknown) (no date) (unknown) (unknown) ALT 21 (<35) IU/L (units unknown) (unknown) (unknown) (no date) (unknown) (unknown) AST 37 H (14-36) IU/L (units unknown) (unknown) (unknown) (no date) (unknown) (unknown) Age/Sex: 72 / F (units unknown) (unknown) (unknown) (no date) (unknown) (unknown) Albumin 3.7 (3.5-5.0 ) g/dL (units unknown) (unknown) (unknown) (no date) (unknown) (unknown) Albumin/Globulin Rat io 1.4 (1.0-2.8) (units unknown) (unknown) (unknown) (no date) (unknown) (unknown) Alkaline Phosphatase 89 (38-126) U/L (units unknown) (unknown) (unknown) (no date) (unknown) (unknown) Allergies (units unknown) (unknown) (unknown) (no date) (unknown) (unknown) Allergy/AdvReac Type Severity Reaction Status Date / Time (units unknown) (unknown) (unknown) (no date) (unknown) (unknown) BUN 15 (7-17) mg/dL (units unknown) (unknown) (unknown) (no date) (unknown) (unknown) BUN/Creatinine Ratio 13.2 (6-22) (units unknown) (unknown) (unknown) (no date) (unknown) (unknown) Baso # (Auto) 0 (0-100) /uL (units unknown) (unknown) (unknown) (no date) (unknown) (unknown) Baso % (Auto) 0.6 (0-2) % (units unknown) (unknown) (unknown) (no date) (unknown) (unknown) Blood Pressure 175/7 6 H 09/29/22 11:39 (units unknown) (unknown) (unknown) (no date) (unknown) (unknown) Blood Pressure 175/7 6 H (units unknown) (unknown) (unknown) (no date) (unknown) (unknown) COVID19 -Nasal RAPID Stat (units unknown) (unknown) (unknown) (no date) (unknown) (unknown) Calcium 8.8 (8.4-10. 2) mg/dL (units unknown) (unknown) (unknown) (no date) (unknown) (unknown) Carbon Dioxide 29 (22-32) mmol/L (units unknown) (unknown) (unknown) (no date) (unknown) (unknown) Chief Complaint: Extremity Injury, Lower (units unknown) (unknown) (unknown) (no date) (unknown) (unknown) Chloride 105 (98-107 ) mmol/L (units unknown) (unknown) (unknown) (no date) (unknown) (unknown) Complete Blood Count AUTO DIFF Stat (units unknown) (unknown) (unknown) (no date) (unknown) (unknown) Comprehensive Metabolic Panel Stat (units unknown) (unknown) (unknown) (no date) (unknown) (unknown) Course (units unknown) (unknown) (unknown) (no date) (unknown) (unknown) Creatinine 1.14 H (0.52-1.04) mg/dL (units unknown) (unknown) (unknown) (no date) (unknown) (unknown) : 1950 Acct:[id number] (units unknown) (unknown) (unknown) (no date) (unknown) (unknown) Date of Service: 09/29/22 (units unknown) (unknown) (unknown) (no date) (unknown) (unknown) Departure (units unknown) (unknown) (unknown) (no date) (unknown) (unknown) Depression (units unknown) (unknown) (unknown) (no date) (unknown) (unknown) Diazepam (Diazepam 1 0 Mg/2 Ml Syringe) 2 mg IV NOW ONE (units unknown) (unknown) (unknown) (no date) (unknown) (unknown) Discharge Plan (units unknown) (unknown) (unknown) (no date) (unknown) (unknown) Diverticulitis (units unknown) (unknown) (unknown) (no date) (unknown) (unknown) ED Orders (units unknown) (unknown) (unknown) (no date) (unknown) (unknown) ER Physician: Kelley Calix (units unknown) (unknown) (unknown) (no date) (unknown) (unknown) Emergency Report (units unknown) (unknown) (unknown) (no date) (unknown) (unknown) Eos # (Auto) 200 (0-450) /uL (units unknown) (unknown) (unknown) (no date) (unknown) (unknown) Eos % (Auto) 2.7 (2- 4) % (units unknown) (unknown) (unknown) (no date) (unknown) (unknown) Estimated GFR 51 L (>60) mL/min (units unknown) (unknown) (unknown) (no date) (unknown) (unknown) Exam (units unknown) (unknown) (unknown) (no date) (unknown) (unknown) Excedrin Extra Strength 250-250-65 mg Tablet (units unknown) (unknown) (unknown) (no date) (unknown) (unknown) Extra Strength) (units unknown) (unknown) (unknown) (no date) (unknown) (unknown) GERD (gastroesophage al reflux disease) (units unknown) (unknown) (unknown) (no date) (unknown) (unknown) General (units unknown) (unknown) (unknown) (no date) (unknown) (unknown) Globulin 2.7 (1.7-4. 1) g/dL (units unknown) (unknown) (unknown) (no date) (unknown) (unknown) Glucose 106 (80-110) mg/dL (units unknown) (unknown) (unknown) (no date) (unknown) (unknown) HLD (hyperlipidemia) (units unknown) (unknown) (unknown) (no date) (unknown) (unknown) HPI - Extremity Inju ry (Lower) (units unknown) (unknown) (unknown) (no date) (unknown) (unknown) HPI Narrative: (units unknown) (unknown) (unknown) (no date) (unknown) (unknown) Hct 31.1 L (36-46) % (units unknown) (unknown) (unknown) (no date) (unknown) (unknown) Hearing impaired (units unknown) (unknown) (unknown) (no date) (unknown) (unknown) Hgb 10.6 L (12.0-16. 0) g/dL (units unknown) (unknown) (unknown) (no date) (unknown) (unknown) History of Present Illness (units unknown) (unknown) (unknown) (no date) (unknown) (unknown) History of bladder surgery (units unknown) (unknown) (unknown) (no date) (unknown) (unknown) History of total lef t knee replacement (units unknown) (unknown) (unknown) (no date) (unknown) (unknown) History of total rig ht knee replacement (units unknown) (unknown) (unknown) (no date) (unknown) (unknown) Home Medications (units unknown) (unknown) (unknown) (no date) (unknown) (unknown) Hx of left breast biopsy (units unknown) (unknown) (unknown) (no date) (unknown) (unknown) Hx of right breast biopsy (units unknown) (unknown) (unknown) (no date) (unknown) (unknown) Hx of tonsillectomy (units unknown) (unknown) (unknown) (no date) (unknown) (unknown) Hydromorphone HCl (Hydromorphone 0.5 Mg Inj) 0.5 mg IV NOW ONE (units unknown) (unknown) (unknown) (no date) (unknown) (unknown) Initial Vital Signs (units unknown) (unknown) (unknown) (no date) (unknown) (unknown) Initial Vital Signs: (units unknown) (unknown) (unknown) (no date) (unknown) (unknown) [address] [address] (units unknown) (unknown) (unknown) (no date) (unknown) (unknown) Lab Data (units unknown) (unknown) (unknown) (no date) (unknown) (unknown) Lab Results (units unknown) (unknown) (unknown) (no date) (unknown) (unknown) Labs: (units unknown) (unknown) (unknown) (no date) (unknown) (unknown) Lipase 44 (23-300) U/L (units unknown) (unknown) (unknown) (no date) (unknown) (unknown) Lipase Stat (units unknown) (unknown) (unknown) (no date) (unknown) (unknown) Lymph # (Auto) 1100 (1905-8321) /uL (units unknown) (unknown) (unknown) (no date) (unknown) (unknown) Lymph % (Auto) 13.3 L (25-40) % (units unknown) (unknown) (unknown) (no date) (unknown) (unknown) MCH 29.9 (26-34) PG (units unknown) (unknown) (unknown) (no date) (unknown) (unknown) MCHC 34.0 (30-36) % (units unknown) (unknown) (unknown) (no date) (unknown) (unknown) MCV 87.9 (80-100) fL (units unknown) (unknown) (unknown) (no date) (unknown) (unknown) MDM - Extremity Inju ry (Lower) (units unknown) (unknown) (unknown) (no date) (unknown) (unknown) Medical History (units unknown) (unknown) (unknown) (no date) (unknown) (unknown) Medication Instructions Recorded Confirmed (units unknown) (unknown) (unknown) (no date) (unknown) (unknown) Medication Instructions Recorded (units unknown) (unknown) (unknown) (no date) (unknown) (unknown) Mode of arrival: EMS (units unknown) (unknown) (unknown) (no date) (unknown) (unknown) [place] # (Auto) 400 (0-900) /uL (units unknown) (unknown) (unknown) (no date) (unknown) (unknown) [place] % (Auto) 5.4 (3-14) % (units unknown) (unknown) (unknown) (no date) (unknown) (unknown) Neut # (Auto) 6300 (9279-5498) /uL (units unknown) (unknown) (unknown) (no date) (unknown) (unknown) Neut % (Auto) 78.0 H (50-75) % (units unknown) (unknown) (unknown) (no date) (unknown) (unknown) No Action (units unknown) (unknown) (unknown) (no date) (unknown) (unknown) No Known Drug Allergies Allergy Verified 09/29/22 12:10 (units unknown) (unknown) (unknown) (no date) (unknown) (unknown) Ordered: (units unknown) (unknown) (unknown) (no date) (unknown) (unknown) Orders (units unknown) (unknown) (unknown) (no date) (unknown) (unknown) Osteoarthritis (units unknown) (unknown) (unknown) (no date) (unknown) (unknown) Oxygen Delivery Meth od Room Air 09/29/22 11:39 (units unknown) (unknown) (unknown) (no date) (unknown) (unknown) Oxygen Delivery Meth od Room Air (units unknown) (unknown) (unknown) (no date) (unknown) (unknown) Pain/inflammation #9 0 tabs (units unknown) (unknown) (unknown) (no date) (unknown) (unknown) Patient History (units unknown) (unknown) (unknown) (no date) (unknown) (unknown) Patient required cecilio n medication and Dr. Roberts came in to reduce patient's (units unknown) (unknown) (unknown) (no date) (unknown) (unknown) Patient: Barbaar Garcia MR#: [id number] (units unknown) (unknown) (unknown) (no date) (unknown) (unknown) Plt Count 315 (150-400) X103/uL (units unknown) (unknown) (unknown) (no date) (unknown) (unknown) Potassium 3.5 (3.4-5.1) mmol/L (units unknown) (unknown) (unknown) (no date) (unknown) (unknown) Prescriptions: (units unknown) (unknown) (unknown) (no date) (unknown) (unknown) Prevent blood clots (units unknown) (unknown) (unknown) (no date) (unknown) (unknown) Previous Rx's (units unknown) (unknown) (unknown) (no date) (unknown) (unknown) Pulse Oximetry 100 09/29/22 11:39 (units unknown) (unknown) (unknown) (no date) (unknown) (unknown) Pulse Oximetry 100 (units unknown) (unknown) (unknown) (no date) (unknown) (unknown) Pulse Rate 62 11:39 (units unknown) (unknown) (unknown) (no date) (unknown) (unknown) Pulse Rate 62 (units unknown) (unknown) (unknown) (no date) (unknown) (unknown) RBC 3.53 L (4.0-5.2) X106/uL (units unknown) (unknown) (unknown) (no date) (unknown) (unknown) RDW 14.4 (11.6-14.8) % (units unknown) (unknown) (unknown) (no date) (unknown) (unknown) Referrals: (units unknown) (unknown) (unknown) (no date) (unknown) (unknown) Related Data (units unknown) (unknown) (unknown) (no date) (unknown) (unknown) Respiratory Rate 18 09/29/22 11:39 (units unknown) (unknown) (unknown) (no date) (unknown) (unknown) Respiratory Rate 18 (units unknown) (unknown) (unknown) (no date) (unknown) (unknown) Rx Instructions: (units unknown) (unknown) (unknown) (no date) (unknown) (unknown) Seasonal allergies (units unknown) (unknown) (unknown) (no date) (unknown) (unknown) Signed By: (units unknown) (unknown) (unknown) (no date) (unknown) (unknown) Smoking Status: Carmencita rubin smoker (units unknown) (unknown) (unknown) (no date) (unknown) (unknown) Social History (units unknown) (unknown) (unknown) (no date) (unknown) (unknown) Sodium 140 (137-145) mmol/L (units unknown) (unknown) (unknown) (no date) (unknown) (unknown) Source: patient and EMS (units unknown) (unknown) (unknown) (no date) (unknown) (unknown) Stated Complaint: L Hip Dislocated t-2 days (units unknown) (unknown) (unknown) (no date) (unknown) (unknown) Stop: 09/29/22 13:01 (units unknown) (unknown) (unknown) (no date) (unknown) (unknown) Substance Use Type: does not use (units unknown) (unknown) (unknown) (no date) (unknown) (unknown) Surgical History (units unknown) (unknown) (unknown) (no date) (unknown) (unknown) Temperature 98.6 F 09/29/22 11:39 (units unknown) (unknown) (unknown) (no date) (unknown) (unknown) Temperature 98.6 F (units unknown) (unknown) (unknown) (no date) (unknown) (unknown) This is a 72 year female presents to the emergency department via EMS with (units unknown) (unknown) (unknown) (no date) (unknown) (unknown) Time Seen by Provide r: 09/29/22 12:55 (units unknown) (unknown) (unknown) (no date) (unknown) (unknown) Total Bilirubin 0.4 (0.2-1.3) mg/dL (units unknown) (unknown) (unknown) (no date) (unknown) (unknown) Total Protein 6.4 (6.3-8.2) g/dL (units unknown) (unknown) (unknown) (no date) (unknown) (unknown) Vital Signs - 8 hr (units unknown) (unknown) (unknown) (no date) (unknown) (unknown) Vital Signs (units unknown) (unknown) (unknown) (no date) (unknown) (unknown) Vital signs: (units unknown) (unknown) (unknown) (no date) (unknown) (unknown) WBC 8.0 (4.5-11.0) X103/uL (units unknown) (unknown) (unknown) (no date) (unknown) (unknown) XR hip w pel if done LT 2V Stat (units unknown) (unknown) (unknown) (no date) (unknown) (unknown) Maria Teresa Larsen PA-C [Primary Care Provider] (units unknown) (unknown) (unknown) (no date) (unknown) (unknown) [Embedded Image Not Available] (units unknown) (unknown) (unknown) (no date) (unknown) (unknown) acetaminophen 325 mg Tablet (units unknown) (unknown) (unknown) (no date) (unknown) (unknown) acetaminophen 325 mg tablet 650 mg PO Q6H PRN fever or pain 09/15/22 (units unknown) (unknown) (unknown) (no date) (unknown) (unknown) alcohol intake frequency: holidays/special occasions only (units unknown) (unknown) (unknown) (no date) (unknown) (unknown) alcohol intake: current (units unknown) (unknown) (unknown) (no date) (unknown) (unknown) allergies (units unknown) (unknown) (unknown) (no date) (unknown) (unknown) aspirin 81 mg Tablet,Delayed Release (Dr/Ec) (units unknown) (unknown) (unknown) (no date) (unknown) (unknown) aspirin 81 mg tablet,delayed 81 mg PO BID 6 weeks #84 tabs 09/15/22 (units unknown) (unknown) (unknown) (no date) (unknown) (unknown) aspirin-acetaminophe n- caffeine 250 1 - 2 tab PO BID 08/13/22 09/27/22 (units unknown) (unknown) (unknown) (no date) (unknown) (unknown) atorvastatin 20 mg Tablet (units unknown) (unknown) (unknown) (no date) (unknown) (unknown) atorvastatin 20 mg tablet 20 mg PO BEDTIME 08/13/22 09/27/22 (units unknown) (unknown) (unknown) (no date) (unknown) (unknown) bicarbonate 1.1 gram capsule (units unknown) (unknown) (unknown) (no date) (unknown) (unknown) caps (units unknown) (unknown) (unknown) (no date) (unknown) (unknown) cetirizine 10 mg tablet (Zyrtec) 10 mg PO DAILY PRN Seasonal 08/13/22 09/27/22 (units unknown) (unknown) (unknown) (no date) (unknown) (unknown) cetirizine [Zyrtec] 10 mg Tablet (units unknown) (unknown) (unknown) (no date) (unknown) (unknown) concern of a left hi p dislocation status post hip dislocation 2 days ago. (units unknown) (unknown) (unknown) (no date) (unknown) (unknown) docusate sodium 100 mg Capsule (units unknown) (unknown) (unknown) (no date) (unknown) (unknown) docusate sodium 100 mg capsule 100 mg PO BID PRN constipation #30 09/15/22 (units unknown) (unknown) (unknown) (no date) (unknown) (unknown) escitalopram oxalate 20 mg Tablet (units unknown) (unknown) (unknown) (no date) (unknown) (unknown) escitalopram oxalate 20 mg tablet 20 mg PO DAILY 08/13/22 09/27/22 (units unknown) (unknown) (unknown) (no date) (unknown) (unknown) household members: spouse (units unknown) (unknown) (unknown) (no date) (unknown) (unknown) ibuprofen 400 mg Tablet (units unknown) (unknown) (unknown) (no date) (unknown) (unknown) ibuprofen 400 mg tablet 400 mg PO Q4H PRN 09/15/22 (units unknown) (unknown) (unknown) (no date) (unknown) (unknown) left hip. She has history of left hip arthroplasty (units unknown) (unknown) (unknown) (no date) (unknown) (unknown) mg-250 mg-65 mg tabl et (Excedrin (units unknown) (unknown) (unknown) (no date) (unknown) (unknown) omeprazole 20 mg-sodium 1 cap PO DAILY PRN GI Upset 08/13/22 09/27/22 (units unknown) (unknown) (unknown) (no date) (unknown) (unknown) omeprazole-sodium bicarbonate [Zegerid] 20-1.1 mg-gram Capsule (units unknown) (unknown) (unknown) (no date) (unknown) (unknown) release (units unknown) (unknown) (unknown) (no date) (unknown) (unknown) solifenacin 10 mg tablet (Vesicare) 10 mg PO DAILY 08/13/22 09/27/22 (units unknown) (unknown) (unknown) (no date) (unknown) (unknown) solifenacin [Vesicar e] 10 mg Tablet (units unknown) (unknown) Result panel [id number] (unknown) (no date) (unknown) (unknown) (no value) (units unknown) (unknown) (unknown) (no date) (unknown) (unknown) #90 tabs (units unknown) (unknown) (unknown) (no date) (unknown) (unknown) (Zegerid) (units unknown) (unknown) (unknown) (no date) (unknown) (unknown) 09/14/[address] Annika River. Patient came into the emergency department on (units unknown) (unknown) (unknown) (no date) (unknown) (unknown) 09/27/2022 after a sitting to standing complication causing a left hip (units unknown) (unknown) (unknown) (no date) (unknown) (unknown) 09/29/22 09/29/22 Range/Units (units unknown) (unknown) (unknown) (no date) (unknown) (unknown) 09/29/22 11:44 (units unknown) (unknown) (unknown) (no date) (unknown) (unknown) 09/29/22 12:25 (units unknown) (unknown) (unknown) (no date) (unknown) (unknown) 09/29/22 12:47 (units unknown) (unknown) (unknown) (no date) (unknown) (unknown) 09/29/22 (units unknown) (unknown) (unknown) (no date) (unknown) (unknown) 0RF (units unknown) (unknown) (unknown) (no date) (unknown) (unknown) 1 - 2 tab PO BID (units unknown) (unknown) (unknown) (no date) (unknown) (unknown) 1 cap PO DAILY PRN (Reason: GI Upset) (units unknown) (unknown) (unknown) (no date) (unknown) (unknown) 10 mg PO DAILY PRN (Reason: Seasonal allergies) (units unknown) (unknown) (unknown) (no date) (unknown) (unknown) 10 mg PO DAILY (units unknown) (unknown) (unknown) (no date) (unknown) (unknown) 100 mg PO BID PRN (Reason: constipation) Qty: 30 0RF (units unknown) (unknown) (unknown) (no date) (unknown) (unknown) 11:39 (units unknown) (unknown) (unknown) (no date) (unknown) (unknown) 12:25 12:25 (units unknown) (unknown) (unknown) (no date) (unknown) (unknown) 20 mg PO BEDTIME (units unknown) (unknown) (unknown) (no date) (unknown) (unknown) 20 mg PO DAILY (units unknown) (unknown) (unknown) (no date) (unknown) (unknown) 3151 (units unknown) (unknown) (unknown) (no date) (unknown) (unknown) 400 mg PO Q4H MDD Ma x 2400 mg per day PRN (Reason: Pain/inflammation) Qty: 90 (units unknown) (unknown) (unknown) (no date) (unknown) (unknown) 650 mg PO Q6H MDD Ma x 3000 mg per day PRN (Reason: fever or pain) Qty: 90 0RF (units unknown) (unknown) (unknown) (no date) (unknown) (unknown) 81 mg PO BID 42 Days Qty: 84 0RF (units unknown) (unknown) (unknown) (no date) (unknown) (unknown) ALT 21 (<35) IU/L (units unknown) (unknown) (unknown) (no date) (unknown) (unknown) AST 37 H (14-36) IU/L (units unknown) (unknown) (unknown) (no date) (unknown) (unknown) Age/Sex: 72 / F (units unknown) (unknown) (unknown) (no date) (unknown) (unknown) Albumin 3.7 (3.5-5.0 ) g/dL (units unknown) (unknown) (unknown) (no date) (unknown) (unknown) Albumin/Globulin Rat io 1.4 (1.0-2.8) (units unknown) (unknown) (unknown) (no date) (unknown) (unknown) Alkaline Phosphatase 89 (38-126) U/L (units unknown) (unknown) (unknown) (no date) (unknown) (unknown) Allergies (units unknown) (unknown) (unknown) (no date) (unknown) (unknown) Allergy/AdvReac Type Severity Reaction Status Date / Time (units unknown) (unknown) (unknown) (no date) (unknown) (unknown) BUN 15 (7-17) mg/dL (units unknown) (unknown) (unknown) (no date) (unknown) (unknown) BUN/Creatinine Ratio 13.2 (6-22) (units unknown) (unknown) (unknown) (no date) (unknown) (unknown) Baso # (Auto) 0 (0-100) /uL (units unknown) (unknown) (unknown) (no date) (unknown) (unknown) Baso % (Auto) 0.6 (0-2) % (units unknown) (unknown) (unknown) (no date) (unknown) (unknown) Blood Pressure 175/7 6 H 09/29/22 11:39 (units unknown) (unknown) (unknown) (no date) (unknown) (unknown) Blood Pressure 175/7 6 H (units unknown) (unknown) (unknown) (no date) (unknown) (unknown) COVID19 -Nasal RAPID Stat (units unknown) (unknown) (unknown) (no date) (unknown) (unknown) CV: regular rate and rhythm, warm extremities (units unknown) (unknown) (unknown) (no date) (unknown) (unknown) Calcium 8.8 (8.4-10. 2) mg/dL (units unknown) (unknown) (unknown) (no date) (unknown) (unknown) Carbon Dioxide 29 (22-32) mmol/L (units unknown) (unknown) (unknown) (no date) (unknown) (unknown) Chief Complaint: Extremity Injury, Lower (units unknown) (unknown) (unknown) (no date) (unknown) (unknown) Chloride 105 (98-107 ) mmol/L (units unknown) (unknown) (unknown) (no date) (unknown) (unknown) Complete Blood Count AUTO DIFF Stat (units unknown) (unknown) (unknown) (no date) (unknown) (unknown) Comprehensive Metabolic Panel Stat (units unknown) (unknown) (unknown) (no date) (unknown) (unknown) Course (units unknown) (unknown) (unknown) (no date) (unknown) (unknown) Creatinine 1.14 H (0.52-1.04) mg/dL (units unknown) (unknown) (unknown) (no date) (unknown) (unknown) : 1950 Acct:[id number] (units unknown) (unknown) (unknown) (no date) (unknown) (unknown) Date of Service: 09/29/22 (units unknown) (unknown) (unknown) (no date) (unknown) (unknown) Departure (units unknown) (unknown) (unknown) (no date) (unknown) (unknown) Depression (units unknown) (unknown) (unknown) (no date) (unknown) (unknown) Diazepam (Diazepam 1 0 Mg/2 Ml Syringe) 2 mg IV NOW ONE (units unknown) (unknown) (unknown) (no date) (unknown) (unknown) Discharge Plan (units unknown) (unknown) (unknown) (no date) (unknown) (unknown) Diverticulitis (units unknown) (unknown) (unknown) (no date) (unknown) (unknown) ED Orders (units unknown) (unknown) (unknown) (no date) (unknown) (unknown) ER Physician: Kelley Calix (units unknown) (unknown) (unknown) (no date) (unknown) (unknown) Emergency Report (units unknown) (unknown) (unknown) (no date) (unknown) (unknown) Eos # (Auto) 200 (0-450) /uL (units unknown) (unknown) (unknown) (no date) (unknown) (unknown) Eos % (Auto) 2.7 (2- 4) % (units unknown) (unknown) (unknown) (no date) (unknown) (unknown) Estimated GFR 51 L (>60) mL/min (units unknown) (unknown) (unknown) (no date) (unknown) (unknown) Exam Narrative: (units unknown) (unknown) (unknown) (no date) (unknown) (unknown) Exam (units unknown) (unknown) (unknown) (no date) (unknown) (unknown) Excedrin Extra Strength 250-250-65 mg Tablet (units unknown) (unknown) (unknown) (no date) (unknown) (unknown) Extra Strength) (units unknown) (unknown) (unknown) (no date) (unknown) (unknown) GERD (gastroesophage al reflux disease) (units unknown) (unknown) (unknown) (no date) (unknown) (unknown) GI: abdomen soft, nondistended, without CVA tenderness bilaterally. (units unknown) (unknown) (unknown) (no date) (unknown) (unknown) General (units unknown) (unknown) (unknown) (no date) (unknown) (unknown) General: Pleasant, sitting upright, in no acute distress, well groomed, afebrile (units unknown) (unknown) (unknown) (no date) (unknown) (unknown) Globulin 2.7 (1.7-4. 1) g/dL (units unknown) (unknown) (unknown) (no date) (unknown) (unknown) Glucose 106 (80-110) mg/dL (units unknown) (unknown) (unknown) (no date) (unknown) (unknown) HEENT: symmetrical facial expressions, moist mucous membranes, neck is supple (units unknown) (unknown) (unknown) (no date) (unknown) (unknown) HLD (hyperlipidemia) (units unknown) (unknown) (unknown) (no date) (unknown) (unknown) HPI - Extremity Inju ry (Lower) (units unknown) (unknown) (unknown) (no date) (unknown) (unknown) HPI Narrative: (units unknown) (unknown) (unknown) (no date) (unknown) (unknown) Hct 31.1 L (36-46) % (units unknown) (unknown) (unknown) (no date) (unknown) (unknown) Hearing impaired (units unknown) (unknown) (unknown) (no date) (unknown) (unknown) Hgb 10.6 L (12.0-16. 0) g/dL (units unknown) (unknown) (unknown) (no date) (unknown) (unknown) History of Present Illness (units unknown) (unknown) (unknown) (no date) (unknown) (unknown) History of bladder surgery (units unknown) (unknown) (unknown) (no date) (unknown) (unknown) History of total lef t knee replacement (units unknown) (unknown) (unknown) (no date) (unknown) (unknown) History of total rig ht knee replacement (units unknown) (unknown) (unknown) (no date) (unknown) (unknown) Home Medications (units unknown) (unknown) (unknown) (no date) (unknown) (unknown) Hx of left breast biopsy (units unknown) (unknown) (unknown) (no date) (unknown) (unknown) Hx of right breast biopsy (units unknown) (unknown) (unknown) (no date) (unknown) (unknown) Hx of tonsillectomy (units unknown) (unknown) (unknown) (no date) (unknown) (unknown) Hydromorphone HCl (Hydromorphone 0.5 Mg Inj) 0.5 mg IV NOW ONE (units unknown) (unknown) (unknown) (no date) (unknown) (unknown) Initial Vital Signs (units unknown) (unknown) (unknown) (no date) (unknown) (unknown) Initial Vital Signs: (units unknown) (unknown) (unknown) (no date) (unknown) (unknown) [address] [address] (units unknown) (unknown) (unknown) (no date) (unknown) (unknown) Lab Data (units unknown) (unknown) (unknown) (no date) (unknown) (unknown) Lab Results (units unknown) (unknown) (unknown) (no date) (unknown) (unknown) Labs: (units unknown) (unknown) (unknown) (no date) (unknown) (unknown) Lipase 44 (23-300) U/L (units unknown) (unknown) (unknown) (no date) (unknown) (unknown) Lipase Stat (units unknown) (unknown) (unknown) (no date) (unknown) (unknown) Lymph # (Auto) 1100 (7419-2533) /uL (units unknown) (unknown) (unknown) (no date) (unknown) (unknown) Lymph % (Auto) 13.3 L (25-40) % (units unknown) (unknown) (unknown) (no date) (unknown) (unknown) MCH 29.9 (26-34) PG (units unknown) (unknown) (unknown) (no date) (unknown) (unknown) MCHC 34.0 (30-36) % (units unknown) (unknown) (unknown) (no date) (unknown) (unknown) MCV 87.9 (80-100) fL (units unknown) (unknown) (unknown) (no date) (unknown) (unknown) MDM - Extremity Inju ry (Lower) (units unknown) (unknown) (unknown) (no date) (unknown) (unknown) MSK: moves all extremities, no weakness, normal tone, left foot with brisk cap (units unknown) (unknown) (unknown) (no date) (unknown) (unknown) Medical History (units unknown) (unknown) (unknown) (no date) (unknown) (unknown) Medication Instructions Recorded Confirmed (units unknown) (unknown) (unknown) (no date) (unknown) (unknown) Medication Instructions Recorded (units unknown) (unknown) (unknown) (no date) (unknown) (unknown) Mode of arrival: EMS (units unknown) (unknown) (unknown) (no date) (unknown) (unknown) [place] # (Auto) 400 (0-900) /uL (units unknown) (unknown) (unknown) (no date) (unknown) (unknown) [place] % (Auto) 5.4 (3-14) % (units unknown) (unknown) (unknown) (no date) (unknown) (unknown) Narrative (units unknown) (unknown) (unknown) (no date) (unknown) (unknown) Neuro: clear speech and normal cognition, A+O x3, GCS 15, no focal motor or (units unknown) (unknown) (unknown) (no date) (unknown) (unknown) Neut # (Auto) 6300 (0479-5439) /uL (units unknown) (unknown) (unknown) (no date) (unknown) (unknown) Neut % (Auto) 78.0 H (50-75) % (units unknown) (unknown) (unknown) (no date) (unknown) (unknown) No Action (units unknown) (unknown) (unknown) (no date) (unknown) (unknown) No Known Drug Allergies Allergy Verified 09/29/22 12:10 (units unknown) (unknown) (unknown) (no date) (unknown) (unknown) Ordered: (units unknown) (unknown) (unknown) (no date) (unknown) (unknown) Orders (units unknown) (unknown) (unknown) (no date) (unknown) (unknown) Osteoarthritis (units unknown) (unknown) (unknown) (no date) (unknown) (unknown) Oxygen Delivery Meth od Room Air 09/29/22 11:39 (units unknown) (unknown) (unknown) (no date) (unknown) (unknown) Oxygen Delivery Meth od Room Air (units unknown) (unknown) (unknown) (no date) (unknown) (unknown) PT and DP pulses are 2+,. (units unknown) (unknown) (unknown) (no date) (unknown) (unknown) Pain/inflammation #9 0 tabs (units unknown) (unknown) (unknown) (no date) (unknown) (unknown) Patient History (units unknown) (unknown) (unknown) (no date) (unknown) (unknown) Patient has a histor y of dyslipidemia, anxiety, and left hip arthroplasty on (units unknown) (unknown) (unknown) (no date) (unknown) (unknown) Patient: Barbara Garcia MR#: [id number] (units unknown) (unknown) (unknown) (no date) (unknown) (unknown) Plt Count 315 (150-400) X103/uL (units unknown) (unknown) (unknown) (no date) (unknown) (unknown) Potassium 3.5 (3.4-5.1) mmol/L (units unknown) (unknown) (unknown) (no date) (unknown) (unknown) Prescriptions: (units unknown) (unknown) (unknown) (no date) (unknown) (unknown) Prevent blood clots (units unknown) (unknown) (unknown) (no date) (unknown) (unknown) Previous Rx's (units unknown) (unknown) (unknown) (no date) (unknown) (unknown) Pulse Oximetry 100 09/29/22 11:39 (units unknown) (unknown) (unknown) (no date) (unknown) (unknown) Pulse Oximetry 100 (units unknown) (unknown) (unknown) (no date) (unknown) (unknown) Pulse Rate 62 11:39 (units unknown) (unknown) (unknown) (no date) (unknown) (unknown) Pulse Rate 62 (units unknown) (unknown) (unknown) (no date) (unknown) (unknown) RBC 3.53 L (4.0-5.2) X106/uL (units unknown) (unknown) (unknown) (no date) (unknown) (unknown) RDW 14.4 (11.6-14.8) % (units unknown) (unknown) (unknown) (no date) (unknown) (unknown) ROS Unobtainable: Al l systems reviewed + are unremarkable except as noted in HPI (units unknown) (unknown) (unknown) (no date) (unknown) (unknown) Referrals: (units unknown) (unknown) (unknown) (no date) (unknown) (unknown) Related Data (units unknown) (unknown) (unknown) (no date) (unknown) (unknown) Respiratory Rate 18 09/29/22 11:39 (units unknown) (unknown) (unknown) (no date) (unknown) (unknown) Respiratory Rate 18 (units unknown) (unknown) (unknown) (no date) (unknown) (unknown) Respiratory: normal work of breathing, without tachypnea or hypoxia. (units unknown) (unknown) (unknown) (no date) (unknown) (unknown) Review of Systems (units unknown) (unknown) (unknown) (no date) (unknown) (unknown) Reviewed vitals sign s and nursing notes. (units unknown) (unknown) (unknown) (no date) (unknown) (unknown) Rx Instructions: (units unknown) (unknown) (unknown) (no date) (unknown) (unknown) Seasonal allergies (units unknown) (unknown) (unknown) (no date) (unknown) (unknown) She required reducti on of her left hip with Dr. Roberts. There were several (units unknown) (unknown) (unknown) (no date) (unknown) (unknown) Signed By: (units unknown) (unknown) (unknown) (no date) (unknown) (unknown) Skin: brisk capillar y refill, without rash or wound (units unknown) (unknown) (unknown) (no date) (unknown) (unknown) Smoking Status: Neve r smoker (units unknown) (unknown) (unknown) (no date) (unknown) (unknown) Social History (units unknown) (unknown) (unknown) (no date) (unknown) (unknown) Sodium 140 (137-145) mmol/L (units unknown) (unknown) (unknown) (no date) (unknown) (unknown) Source: patient and EMS (units unknown) (unknown) (unknown) (no date) (unknown) (unknown) Stated Complaint: L Hip Dislocated t-2 days (units unknown) (unknown) (unknown) (no date) (unknown) (unknown) Stop: 09/29/22 13:01 (units unknown) (unknown) (unknown) (no date) (unknown) (unknown) Substance Use Type: does not use (units unknown) (unknown) (unknown) (no date) (unknown) (unknown) Surgical History (units unknown) (unknown) (unknown) (no date) (unknown) (unknown) Temperature 98.6 F 09/29/22 11:39 (units unknown) (unknown) (unknown) (no date) (unknown) (unknown) Temperature 98.6 F (units unknown) (unknown) (unknown) (no date) (unknown) (unknown) This is a 72 year female presents to the emergency department via EMS with (units unknown) (unknown) (unknown) (no date) (unknown) (unknown) Time Seen by Provide r: 09/29/22 12:55 (units unknown) (unknown) (unknown) (no date) (unknown) (unknown) Total Bilirubin 0.4 (0.2-1.3) mg/dL (units unknown) (unknown) (unknown) (no date) (unknown) (unknown) Total Protein 6.4 (6.3-8.2) g/dL (units unknown) (unknown) (unknown) (no date) (unknown) (unknown) Vital Signs - 8 hr (units unknown) (unknown) (unknown) (no date) (unknown) (unknown) Vital Signs (units unknown) (unknown) (unknown) (no date) (unknown) (unknown) Vital signs: (units unknown) (unknown) (unknown) (no date) (unknown) (unknown) WBC 8.0 (4.5-11.0) X103/uL (units unknown) (unknown) (unknown) (no date) (unknown) (unknown) XR hip w pel if done LT 2V Stat (units unknown) (unknown) (unknown) (no date) (unknown) (unknown) Maria Teresa Larsen PA-C [Primary Care Provider] (units unknown) (unknown) (unknown) (no date) (unknown) (unknown) [Embedded Image Not Available] (units unknown) (unknown) (unknown) (no date) (unknown) (unknown) acetaminophen 325 mg Tablet (units unknown) (unknown) (unknown) (no date) (unknown) (unknown) acetaminophen 325 mg tablet 650 mg PO Q6H PRN fever or pain 09/15/22 (units unknown) (unknown) (unknown) (no date) (unknown) (unknown) alcohol intake frequency: holidays/special occasions only (units unknown) (unknown) (unknown) (no date) (unknown) (unknown) alcohol intake: current (units unknown) (unknown) (unknown) (no date) (unknown) (unknown) allergies (units unknown) (unknown) (unknown) (no date) (unknown) (unknown) and below (units unknown) (unknown) (unknown) (no date) (unknown) (unknown) any numbness. Megha del toro states that today she was standing with her walker, (units unknown) (unknown) (unknown) (no date) (unknown) (unknown) aspirin 81 mg Tablet,Delayed Release (Dr/Ec) (units unknown) (unknown) (unknown) (no date) (unknown) (unknown) aspirin 81 mg tablet,delayed 81 mg PO BID 6 weeks #84 tabs 09/15/22 (units unknown) (unknown) (unknown) (no date) (unknown) (unknown) aspirin-acetaminophe n- caffeine 250 1 - 2 tab PO BID 08/13/22 09/27/22 (units unknown) (unknown) (unknown) (no date) (unknown) (unknown) atorvastatin 20 mg Tablet (units unknown) (unknown) (unknown) (no date) (unknown) (unknown) atorvastatin 20 mg tablet 20 mg PO BEDTIME 08/13/22 09/27/22 (units unknown) (unknown) (unknown) (no date) (unknown) (unknown) attempts with tracti on and none of them worked. She was discharged from the (units unknown) (unknown) (unknown) (no date) (unknown) (unknown) bicarbonate 1.1 gram capsule (units unknown) (unknown) (unknown) (no date) (unknown) (unknown) caps (units unknown) (unknown) (unknown) (no date) (unknown) (unknown) causing her to fall but she denies hitting her head. Her states that he (units unknown) (unknown) (unknown) (no date) (unknown) (unknown) cetirizine 10 mg tablet (Zyrtec) 10 mg PO DAILY PRN Seasonal 08/13/22 09/27/22 (units unknown) (unknown) (unknown) (no date) (unknown) (unknown) cetirizine [Zyrtec] 10 mg Tablet (units unknown) (unknown) (unknown) (no date) (unknown) (unknown) concern of a left hi p dislocation status post hip dislocation 2 days ago. (units unknown) (unknown) (unknown) (no date) (unknown) (unknown) denies any sensation changes, she can wiggle her toes and her foot and denies (units unknown) (unknown) (unknown) (no date) (unknown) (unknown) dislocation. She had pain down her leg and states it feels similar today. She (units unknown) (unknown) (unknown) (no date) (unknown) (unknown) docusate sodium 100 mg Capsule (units unknown) (unknown) (unknown) (no date) (unknown) (unknown) docusate sodium 100 mg capsule 100 mg PO BID PRN constipation #30 09/15/22 (units unknown) (unknown) (unknown) (no date) (unknown) (unknown) escitalopram oxalate 20 mg Tablet (units unknown) (unknown) (unknown) (no date) (unknown) (unknown) escitalopram oxalate 20 mg tablet 20 mg PO DAILY 08/13/22 09/27/22 (units unknown) (unknown) (unknown) (no date) (unknown) (unknown) helped her. She has not been able to move her left knee or left hip at all. (units unknown) (unknown) (unknown) (no date) (unknown) (unknown) her pain was quite severe, requiring a muscle relaxer, Dilaudid and morphine, (units unknown) (unknown) (unknown) (no date) (unknown) (unknown) hospital today. Stat es this happened at 09:00 this morning. She states that (units unknown) (unknown) (unknown) (no date) (unknown) (unknown) household members: spouse (units unknown) (unknown) (unknown) (no date) (unknown) (unknown) ibuprofen 400 mg Tablet (units unknown) (unknown) (unknown) (no date) (unknown) (unknown) ibuprofen 400 mg tablet 400 mg PO Q4H PRN 09/15/22 (units unknown) (unknown) (unknown) (no date) (unknown) (unknown) mg-250 mg-65 mg tabl et (Excedrin (units unknown) (unknown) (unknown) (no date) (unknown) (unknown) omeprazole 20 mg-sodium 1 cap PO DAILY PRN GI Upset 08/13/22 09/27/22 (units unknown) (unknown) (unknown) (no date) (unknown) (unknown) omeprazole-sodium bicarbonate [Zegerid] 20-1.1 mg-gram Capsule (units unknown) (unknown) (unknown) (no date) (unknown) (unknown) refill, warm to touc h, no rotation, equivocal length when compared to the right, (units unknown) (unknown) (unknown) (no date) (unknown) (unknown) release (units unknown) (unknown) (unknown) (no date) (unknown) (unknown) sensation deficits (units unknown) (unknown) (unknown) (no date) (unknown) (unknown) solifenacin 10 mg tablet (Vesicare) 10 mg PO DAILY 08/13/22 09/27/22 (units unknown) (unknown) (unknown) (no date) (unknown) (unknown) solifenacin [Vesicar e] 10 mg Tablet (units unknown) (unknown) (unknown) (no date) (unknown) (unknown) states that she turn ed her head to the right and felt a pop in her left hip (units unknown) (unknown) Result panel [id number] (unknown) (no date) (unknown) (unknown) (no value) (units unknown) (unknown) (unknown) (no date) (unknown) (unknown) #90 tabs (units unknown) (unknown) (unknown) (no date) (unknown) (unknown) (Zegerid) (units unknown) (unknown) (unknown) (no date) (unknown) (unknown) 09/14/[address] Annika River. Patient came into the emergency department on (units unknown) (unknown) (unknown) (no date) (unknown) (unknown) 09/27/2022 after a sitting to standing complication causing a left hip (units unknown) (unknown) (unknown) (no date) (unknown) (unknown) 09/29/22 09/29/22 Range/Units (units unknown) (unknown) (unknown) (no date) (unknown) (unknown) 09/29/22 11:44 (units unknown) (unknown) (unknown) (no date) (unknown) (unknown) 09/29/22 12:25 (units unknown) (unknown) (unknown) (no date) (unknown) (unknown) 09/29/22 12:47 (units unknown) (unknown) (unknown) (no date) (unknown) (unknown) 09/29/22 (units unknown) (unknown) (unknown) (no date) (unknown) (unknown) 0RF (units unknown) (unknown) (unknown) (no date) (unknown) (unknown) 1 - 2 tab PO BID (units unknown) (unknown) (unknown) (no date) (unknown) (unknown) 1 cap PO DAILY PRN (Reason: GI Upset) (units unknown) (unknown) (unknown) (no date) (unknown) (unknown) 10 mg PO DAILY PRN (Reason: Seasonal allergies) (units unknown) (unknown) (unknown) (no date) (unknown) (unknown) 10 mg PO DAILY (units unknown) (unknown) (unknown) (no date) (unknown) (unknown) 100 mg PO BID PRN (Reason: constipation) Qty: 30 0RF (units unknown) (unknown) (unknown) (no date) (unknown) (unknown) 11:39 (units unknown) (unknown) (unknown) (no date) (unknown) (unknown) 12:25 12:25 (units unknown) (unknown) (unknown) (no date) (unknown) (unknown) 20 mg PO BEDTIME (units unknown) (unknown) (unknown) (no date) (unknown) (unknown) 20 mg PO DAILY (units unknown) (unknown) (unknown) (no date) (unknown) (unknown) 3151 (units unknown) (unknown) (unknown) (no date) (unknown) (unknown) 400 mg PO Q4H MDD Ma x 2400 mg per day PRN (Reason: Pain/inflammation) Qty: 90 (units unknown) (unknown) (unknown) (no date) (unknown) (unknown) 650 mg PO Q6H MDD Ma x 3000 mg per day PRN (Reason: fever or pain) Qty: 90 0RF (units unknown) (unknown) (unknown) (no date) (unknown) (unknown) 81 mg PO BID 42 Days Qty: 84 0RF (units unknown) (unknown) (unknown) (no date) (unknown) (unknown) ALT 21 (<35) IU/L (units unknown) (unknown) (unknown) (no date) (unknown) (unknown) AST 37 H (14-36) IU/L (units unknown) (unknown) (unknown) (no date) (unknown) (unknown) Age/Sex: 72 / F (units unknown) (unknown) (unknown) (no date) (unknown) (unknown) Albumin 3.7 (3.5-5.0 ) g/dL (units unknown) (unknown) (unknown) (no date) (unknown) (unknown) Albumin/Globulin Rat io 1.4 (1.0-2.8) (units unknown) (unknown) (unknown) (no date) (unknown) (unknown) Alkaline Phosphatase 89 (38-126) U/L (units unknown) (unknown) (unknown) (no date) (unknown) (unknown) Allergies (units unknown) (unknown) (unknown) (no date) (unknown) (unknown) Allergy/AdvReac Type Severity Reaction Status Date / Time (units unknown) (unknown) (unknown) (no date) (unknown) (unknown) BUN 15 (7-17) mg/dL (units unknown) (unknown) (unknown) (no date) (unknown) (unknown) BUN/Creatinine Ratio 13.2 (6-22) (units unknown) (unknown) (unknown) (no date) (unknown) (unknown) Baso # (Auto) 0 (0-100) /uL (units unknown) (unknown) (unknown) (no date) (unknown) (unknown) Baso % (Auto) 0.6 (0-2) % (units unknown) (unknown) (unknown) (no date) (unknown) (unknown) Blood Pressure 175/7 6 H 09/29/22 11:39 (units unknown) (unknown) (unknown) (no date) (unknown) (unknown) Blood Pressure 175/7 6 H (units unknown) (unknown) (unknown) (no date) (unknown) (unknown) COVID19 -Nasal RAPID Stat (units unknown) (unknown) (unknown) (no date) (unknown) (unknown) CV: regular rate and rhythm, warm extremities (units unknown) (unknown) (unknown) (no date) (unknown) (unknown) Calcium 8.8 (8.4-10. 2) mg/dL (units unknown) (unknown) (unknown) (no date) (unknown) (unknown) Carbon Dioxide 29 (22-32) mmol/L (units unknown) (unknown) (unknown) (no date) (unknown) (unknown) Chief Complaint: Extremity Injury, Lower (units unknown) (unknown) (unknown) (no date) (unknown) (unknown) Chief Complaint: (units unknown) (unknown) (unknown) (no date) (unknown) (unknown) Chloride 105 (98-107 ) mmol/L (units unknown) (unknown) (unknown) (no date) (unknown) (unknown) Complete Blood Count AUTO DIFF Stat (units unknown) (unknown) (unknown) (no date) (unknown) (unknown) Comprehensive Metabolic Panel Stat (units unknown) (unknown) (unknown) (no date) (unknown) (unknown) Course of care: I sa w the patient and she does appear to have a dislocated left (units unknown) (unknown) (unknown) (no date) (unknown) (unknown) Course (units unknown) (unknown) (unknown) (no date) (unknown) (unknown) Creatinine 1.14 H (0.52-1.04) mg/dL (units unknown) (unknown) (unknown) (no date) (unknown) (unknown) : 1950 Acct:[id number] (units unknown) (unknown) (unknown) (no date) (unknown) (unknown) Date of Service: 09/29/22 (units unknown) (unknown) (unknown) (no date) (unknown) (unknown) Departure (units unknown) (unknown) (unknown) (no date) (unknown) (unknown) Depression (units unknown) (unknown) (unknown) (no date) (unknown) (unknown) Diazepam (Diazepam 1 0 Mg/2 Ml Syringe) 2 mg IV NOW ONE (units unknown) (unknown) (unknown) (no date) (unknown) (unknown) Discharge Plan (units unknown) (unknown) (unknown) (no date) (unknown) (unknown) Diverticulitis (units unknown) (unknown) (unknown) (no date) (unknown) (unknown) ED Orders (units unknown) (unknown) (unknown) (no date) (unknown) (unknown) ER Physician: Kelley Calix (units unknown) (unknown) (unknown) (no date) (unknown) (unknown) Emergency Report (units unknown) (unknown) (unknown) (no date) (unknown) (unknown) Eos # (Auto) 200 (0-450) /uL (units unknown) (unknown) (unknown) (no date) (unknown) (unknown) Eos % (Auto) 2.7 (2- 4) % (units unknown) (unknown) (unknown) (no date) (unknown) (unknown) Estimated GFR 51 L (>60) mL/min (units unknown) (unknown) (unknown) (no date) (unknown) (unknown) Exam Narrative: (units unknown) (unknown) (unknown) (no date) (unknown) (unknown) Exam (units unknown) (unknown) (unknown) (no date) (unknown) (unknown) Excedrin Extra Strength 250-250-65 mg Tablet (units unknown) (unknown) (unknown) (no date) (unknown) (unknown) Extra Strength) (units unknown) (unknown) (unknown) (no date) (unknown) (unknown) GERD (gastroesophage al reflux disease) (units unknown) (unknown) (unknown) (no date) (unknown) (unknown) GI: abdomen soft, nondistended, without CVA tenderness bilaterally. (units unknown) (unknown) (unknown) (no date) (unknown) (unknown) General (units unknown) (unknown) (unknown) (no date) (unknown) (unknown) General: Pleasant, sitting upright, in no acute distress, well groomed, afebrile (units unknown) (unknown) (unknown) (no date) (unknown) (unknown) Globulin 2.7 (1.7-4. 1) g/dL (units unknown) (unknown) (unknown) (no date) (unknown) (unknown) Glucose 106 (80-110) mg/dL (units unknown) (unknown) (unknown) (no date) (unknown) (unknown) HEENT: symmetrical facial expressions, moist mucous membranes, neck is supple (units unknown) (unknown) (unknown) (no date) (unknown) (unknown) HLD (hyperlipidemia) (units unknown) (unknown) (unknown) (no date) (unknown) (unknown) HPI - Extremity Inju ry (Lower) (units unknown) (unknown) (unknown) (no date) (unknown) (unknown) HPI Narrative: (units unknown) (unknown) (unknown) (no date) (unknown) (unknown) Hct 31.1 L (36-46) % (units unknown) (unknown) (unknown) (no date) (unknown) (unknown) Hearing impaired (units unknown) (unknown) (unknown) (no date) (unknown) (unknown) Hgb 10.6 L (12.0-16. 0) g/dL (units unknown) (unknown) (unknown) (no date) (unknown) (unknown) History of Present Illness (units unknown) (unknown) (unknown) (no date) (unknown) (unknown) History of bladder surgery (units unknown) (unknown) (unknown) (no date) (unknown) (unknown) History of total lef t knee replacement (units unknown) (unknown) (unknown) (no date) (unknown) (unknown) History of total rig ht knee replacement (units unknown) (unknown) (unknown) (no date) (unknown) (unknown) Home Medications (units unknown) (unknown) (unknown) (no date) (unknown) (unknown) Hx of left breast biopsy (units unknown) (unknown) (unknown) (no date) (unknown) (unknown) Hx of right breast biopsy (units unknown) (unknown) (unknown) (no date) (unknown) (unknown) Hx of tonsillectomy (units unknown) (unknown) (unknown) (no date) (unknown) (unknown) Hydromorphone HCl (Hydromorphone 0.5 Mg Inj) 0.5 mg IV NOW ONE (units unknown) (unknown) (unknown) (no date) (unknown) (unknown) I have independently reviewed the patient's vital signs and nursing notes as (units unknown) (unknown) (unknown) (no date) (unknown) (unknown) Initial Vital Signs (units unknown) (unknown) (unknown) (no date) (unknown) (unknown) Initial Vital Signs: (units unknown) (unknown) (unknown) (no date) (unknown) (unknown) [address] [address] (units unknown) (unknown) (unknown) (no date) (unknown) (unknown) Lab Data (units unknown) (unknown) (unknown) (no date) (unknown) (unknown) Lab Results (units unknown) (unknown) (unknown) (no date) (unknown) (unknown) Labs: (units unknown) (unknown) (unknown) (no date) (unknown) (unknown) Lipase 44 (23-300) U/L (units unknown) (unknown) (unknown) (no date) (unknown) (unknown) Lipase Stat (units unknown) (unknown) (unknown) (no date) (unknown) (unknown) Lymph # (Auto) 1100 (8913-8161) /uL (units unknown) (unknown) (unknown) (no date) (unknown) (unknown) Lymph % (Auto) 13.3 L (25-40) % (units unknown) (unknown) (unknown) (no date) (unknown) (unknown) MCH 29.9 (26-34) PG (units unknown) (unknown) (unknown) (no date) (unknown) (unknown) MCHC 34.0 (30-36) % (units unknown) (unknown) (unknown) (no date) (unknown) (unknown) MCV 87.9 (80-100) fL (units unknown) (unknown) (unknown) (no date) (unknown) (unknown) MDM - Extremity Inju ry (Lower) (units unknown) (unknown) (unknown) (no date) (unknown) (unknown) MDM Narrative (units unknown) (unknown) (unknown) (no date) (unknown) (unknown) MSK: moves all extremities, no weakness, normal tone, left foot with brisk cap (units unknown) (unknown) (unknown) (no date) (unknown) (unknown) Medical History (units unknown) (unknown) (unknown) (no date) (unknown) (unknown) Medical decision making narrative: (units unknown) (unknown) (unknown) (no date) (unknown) (unknown) Medication Instructions Recorded Confirmed (units unknown) (unknown) (unknown) (no date) (unknown) (unknown) Medication Instructions Recorded (units unknown) (unknown) (unknown) (no date) (unknown) (unknown) Mode of arrival: EMS (units unknown) (unknown) (unknown) (no date) (unknown) (unknown) [place] # (Auto) 400 (0-900) /uL (units unknown) (unknown) (unknown) (no date) (unknown) (unknown) [place] % (Auto) 5.4 (3-14) % (units unknown) (unknown) (unknown) (no date) (unknown) (unknown) Multiple etiologies for patient's symptoms considered including, but not limited (units unknown) (unknown) (unknown) (no date) (unknown) (unknown) My Imaging interpretation: Patient's left hip appears to be anteriorly (units unknown) (unknown) (unknown) (no date) (unknown) (unknown) Narrative (units unknown) (unknown) (unknown) (no date) (unknown) (unknown) Neuro: clear speech and normal cognition, A+O x3, GCS 15, no focal motor or (units unknown) (unknown) (unknown) (no date) (unknown) (unknown) Neut # (Auto) 6300 (9683-4286) /uL (units unknown) (unknown) (unknown) (no date) (unknown) (unknown) Neut % (Auto) 78.0 H (50-75) % (units unknown) (unknown) (unknown) (no date) (unknown) (unknown) No Action (units unknown) (unknown) (unknown) (no date) (unknown) (unknown) No Known Drug Allergies Allergy Verified 09/29/22 12:10 (units unknown) (unknown) (unknown) (no date) (unknown) (unknown) Ordered: (units unknown) (unknown) (unknown) (no date) (unknown) (unknown) Orders (units unknown) (unknown) (unknown) (no date) (unknown) (unknown) Osteoarthritis (units unknown) (unknown) (unknown) (no date) (unknown) (unknown) Oxygen Delivery Meth od Room Air 09/29/22 11:39 (units unknown) (unknown) (unknown) (no date) (unknown) (unknown) Oxygen Delivery Meth od Room Air (units unknown) (unknown) (unknown) (no date) (unknown) (unknown) PT and DP pulses are 2+,. (units unknown) (unknown) (unknown) (no date) (unknown) (unknown) Pain/inflammation #9 0 tabs (units unknown) (unknown) (unknown) (no date) (unknown) (unknown) Patient History (units unknown) (unknown) (unknown) (no date) (unknown) (unknown) Patient has a histor y of dyslipidemia, anxiety, and left hip arthroplasty on (units unknown) (unknown) (unknown) (no date) (unknown) (unknown) Patient is appropria te for outpatient management. (units unknown) (unknown) (unknown) (no date) (unknown) (unknown) Patient: Barbara Garcia MR#: [id number] (units unknown) (unknown) (unknown) (no date) (unknown) (unknown) Pertinent lab findin gs reviewed: (units unknown) (unknown) (unknown) (no date) (unknown) (unknown) Plt Count 315 (150-400) X103/uL (units unknown) (unknown) (unknown) (no date) (unknown) (unknown) Potassium 3.5 (3.4-5.1) mmol/L (units unknown) (unknown) (unknown) (no date) (unknown) (unknown) Prescriptions: (units unknown) (unknown) (unknown) (no date) (unknown) (unknown) Prevent blood clots (units unknown) (unknown) (unknown) (no date) (unknown) (unknown) Previous Rx's (units unknown) (unknown) (unknown) (no date) (unknown) (unknown) Pulse Oximetry 100 09/29/22 11:39 (units unknown) (unknown) (unknown) (no date) (unknown) (unknown) Pulse Oximetry 100 (units unknown) (unknown) (unknown) (no date) (unknown) (unknown) Pulse Rate 62 11:39 (units unknown) (unknown) (unknown) (no date) (unknown) (unknown) Pulse Rate 62 (units unknown) (unknown) (unknown) (no date) (unknown) (unknown) Questions are addressed and there is agreement with the plan and for follow-up. (units unknown) (unknown) (unknown) (no date) (unknown) (unknown) RBC 3.53 L (4.0-5.2) X106/uL (units unknown) (unknown) (unknown) (no date) (unknown) (unknown) RDW 14.4 (11.6-14.8) % (units unknown) (unknown) (unknown) (no date) (unknown) (unknown) ROS Unobtainable: Al l systems reviewed + are unremarkable except as noted in HPI (units unknown) (unknown) (unknown) (no date) (unknown) (unknown) Referrals: (units unknown) (unknown) (unknown) (no date) (unknown) (unknown) Related Data (units unknown) (unknown) (unknown) (no date) (unknown) (unknown) Respiratory Rate 18 09/29/22 11:39 (units unknown) (unknown) (unknown) (no date) (unknown) (unknown) Respiratory Rate 18 (units unknown) (unknown) (unknown) (no date) (unknown) (unknown) Respiratory: normal work of breathing, without tachypnea or hypoxia. (units unknown) (unknown) (unknown) (no date) (unknown) (unknown) Review of Systems (units unknown) (unknown) (unknown) (no date) (unknown) (unknown) Reviewed vitals sign s and nursing notes. (units unknown) (unknown) (unknown) (no date) (unknown) (unknown) Rx Instructions: (units unknown) (unknown) (unknown) (no date) (unknown) (unknown) Seasonal allergies (units unknown) (unknown) (unknown) (no date) (unknown) (unknown) She required reducti on of her left hip with Dr. Roberts. There were several (units unknown) (unknown) (unknown) (no date) (unknown) (unknown) Signed By: (units unknown) (unknown) (unknown) (no date) (unknown) (unknown) Skin: brisk capillar y refill, without rash or wound (units unknown) (unknown) (unknown) (no date) (unknown) (unknown) Smoking Status: Carmencita rubin smoker (units unknown) (unknown) (unknown) (no date) (unknown) (unknown) Social History (units unknown) (unknown) (unknown) (no date) (unknown) (unknown) Social consideration s that may affect disposition: none (units unknown) (unknown) (unknown) (no date) (unknown) (unknown) Sodium 140 (137-145) mmol/L (units unknown) (unknown) (unknown) (no date) (unknown) (unknown) Source: patient and EMS (units unknown) (unknown) (unknown) (no date) (unknown) (unknown) Stated Complaint: L Hip Dislocated t-2 days (units unknown) (unknown) (unknown) (no date) (unknown) (unknown) Stop: 09/29/22 13:01 (units unknown) (unknown) (unknown) (no date) (unknown) (unknown) Substance Use Type: does not use (units unknown) (unknown) (unknown) (no date) (unknown) (unknown) Surgical History (units unknown) (unknown) (unknown) (no date) (unknown) (unknown) Temperature 98.6 F 09/29/22 11:39 (units unknown) (unknown) (unknown) (no date) (unknown) (unknown) Temperature 98.6 F (units unknown) (unknown) (unknown) (no date) (unknown) (unknown) This is a 72 year female presents to the emergency department via EMS with (units unknown) (unknown) (unknown) (no date) (unknown) (unknown) Time Seen by Provide r: 09/29/22 12:55 (units unknown) (unknown) (unknown) (no date) (unknown) (unknown) Total Bilirubin 0.4 (0.2-1.3) mg/dL (units unknown) (unknown) (unknown) (no date) (unknown) (unknown) Total Protein 6.4 (6.3-8.2) g/dL (units unknown) (unknown) (unknown) (no date) (unknown) (unknown) Vital Signs - 8 hr (units unknown) (unknown) (unknown) (no date) (unknown) (unknown) Vital Signs (units unknown) (unknown) (unknown) (no date) (unknown) (unknown) Vital signs: (units unknown) (unknown) (unknown) (no date) (unknown) (unknown) WBC 8.0 (4.5-11.0) X103/uL (units unknown) (unknown) (unknown) (no date) (unknown) (unknown) XR hip w pel if done LT 2V Stat (units unknown) (unknown) (unknown) (no date) (unknown) (unknown) Maria Teresa Larsen PA-C [Primary Care Provider] (units unknown) (unknown) (unknown) (no date) (unknown) (unknown) [Embedded Image Not Available] (units unknown) (unknown) (unknown) (no date) (unknown) (unknown) acetaminophen 325 mg Tablet (units unknown) (unknown) (unknown) (no date) (unknown) (unknown) acetaminophen 325 mg tablet 650 mg PO Q6H PRN fever or pain 09/15/22 (units unknown) (unknown) (unknown) (no date) (unknown) (unknown) alcohol intake frequency: holidays/special occasions only (units unknown) (unknown) (unknown) (no date) (unknown) (unknown) alcohol intake: current (units unknown) (unknown) (unknown) (no date) (unknown) (unknown) allergies (units unknown) (unknown) (unknown) (no date) (unknown) (unknown) and below (units unknown) (unknown) (unknown) (no date) (unknown) (unknown) any numbness. Megha del toro states that today she was standing with her walker, (units unknown) (unknown) (unknown) (no date) (unknown) (unknown) aspirin 81 mg Tablet,Delayed Release (Dr/Ec) (units unknown) (unknown) (unknown) (no date) (unknown) (unknown) aspirin 81 mg tablet,delayed 81 mg PO BID 6 weeks #84 tabs 09/15/22 (units unknown) (unknown) (unknown) (no date) (unknown) (unknown) aspirin-acetaminophe n- caffeine 250 1 - 2 tab PO BID 08/13/22 09/27/22 (units unknown) (unknown) (unknown) (no date) (unknown) (unknown) atorvastatin 20 mg Tablet (units unknown) (unknown) (unknown) (no date) (unknown) (unknown) atorvastatin 20 mg tablet 20 mg PO BEDTIME 08/13/22 09/27/22 (units unknown) (unknown) (unknown) (no date) (unknown) (unknown) attempts with tracti on and none of them worked. She was discharged from the (units unknown) (unknown) (unknown) (no date) (unknown) (unknown) bicarbonate 1.1 gram capsule (units unknown) (unknown) (unknown) (no date) (unknown) (unknown) caps (units unknown) (unknown) (unknown) (no date) (unknown) (unknown) causing her to fall but she denies hitting her head. Her states that he (units unknown) (unknown) (unknown) (no date) (unknown) (unknown) cetirizine 10 mg tablet (Zyrtec) 10 mg PO DAILY PRN Seasonal 08/13/22 09/27/22 (units unknown) (unknown) (unknown) (no date) (unknown) (unknown) cetirizine [Zyrtec] 10 mg Tablet (units unknown) (unknown) (unknown) (no date) (unknown) (unknown) concern of a left hi p dislocation status post hip dislocation 2 days ago. (units unknown) (unknown) (unknown) (no date) (unknown) (unknown) denies any sensation changes, she can wiggle her toes and her foot and denies (units unknown) (unknown) (unknown) (no date) (unknown) (unknown) dislocated. (units unknown) (unknown) (unknown) (no date) (unknown) (unknown) dislocation. She had pain down her leg and states it feels similar today. She (units unknown) (unknown) (unknown) (no date) (unknown) (unknown) docusate sodium 100 mg Capsule (units unknown) (unknown) (unknown) (no date) (unknown) (unknown) docusate sodium 100 mg capsule 100 mg PO BID PRN constipation #30 09/15/22 (units unknown) (unknown) (unknown) (no date) (unknown) (unknown) escitalopram oxalate 20 mg Tablet (units unknown) (unknown) (unknown) (no date) (unknown) (unknown) escitalopram oxalate 20 mg tablet 20 mg PO DAILY 08/13/22 09/27/22 (units unknown) (unknown) (unknown) (no date) (unknown) (unknown) helped her. She has not been able to move her left knee or left hip at all. (units unknown) (unknown) (unknown) (no date) (unknown) (unknown) her pain was quite severe, requiring a muscle relaxer, Dilaudid and morphine, (units unknown) (unknown) (unknown) (no date) (unknown) (unknown) hip. Pending radiology's interpretation. Will contact Dr. Aviles for (units unknown) (unknown) (unknown) (no date) (unknown) (unknown) hospital today. Stat es this happened at 09:00 this morning. She states that (units unknown) (unknown) (unknown) (no date) (unknown) (unknown) household members: spouse (units unknown) (unknown) (unknown) (no date) (unknown) (unknown) ibuprofen 400 mg Tablet (units unknown) (unknown) (unknown) (no date) (unknown) (unknown) ibuprofen 400 mg tablet 400 mg PO Q4H PRN 09/15/22 (units unknown) (unknown) (unknown) (no date) (unknown) (unknown) mg-250 mg-65 mg tabl et (Excedrin (units unknown) (unknown) (unknown) (no date) (unknown) (unknown) omeprazole 20 mg-sodium 1 cap PO DAILY PRN GI Upset 08/13/22 09/27/22 (units unknown) (unknown) (unknown) (no date) (unknown) (unknown) omeprazole-sodium bicarbonate [Zegerid] 20-1.1 mg-gram Capsule (units unknown) (unknown) (unknown) (no date) (unknown) (unknown) reduction as patient required complicated reduction in the OR 2 days ago. (units unknown) (unknown) (unknown) (no date) (unknown) (unknown) refill, warm to touc h, no rotation, equivocal length when compared to the right, (units unknown) (unknown) (unknown) (no date) (unknown) (unknown) release (units unknown) (unknown) (unknown) (no date) (unknown) (unknown) sensation deficits (units unknown) (unknown) (unknown) (no date) (unknown) (unknown) solifenacin 10 mg tablet (Vesicare) 10 mg PO DAILY 08/13/22 09/27/22 (units unknown) (unknown) (unknown) (no date) (unknown) (unknown) solifenacin [Vesicar e] 10 mg Tablet (units unknown) (unknown) (unknown) (no date) (unknown) (unknown) states that she turn ed her head to the right and felt a pop in her left hip (units unknown) (unknown) (unknown) (no date) (unknown) (unknown) to: (units unknown) (unknown) (unknown) (no date) (unknown) (unknown) well as prior record s if available. Pertinent records include: (units unknown) (unknown) Result panel 1320 (unknown) (no date) (unknown) (unknown) Negative (units unknown) (unknown) (unknown) (no date) (unknown) (unknown) Negative (units unknown) (unknown) Result panel 1321 (unknown) (no date) (unknown) (unknown) (no value) (units unknown) (unknown) (unknown) (no date) (unknown) (unknown) #90 tabs (units unknown) (unknown) (unknown) (no date) (unknown) (unknown) (Zegerid) (units unknown) (unknown) (unknown) (no date) (unknown) (unknown) 09/14/[address] Annika River. Patient came into the emergency department on (units unknown) (unknown) (unknown) (no date) (unknown) (unknown) 09/27/2022 after a sitting to standing complication causing a left hip (units unknown) (unknown) (unknown) (no date) (unknown) (unknown) 09/29/22 09/29/22 09/29/22 Range/Units (units unknown) (unknown) (unknown) (no date) (unknown) (unknown) 09/29/22 11:44 (units unknown) (unknown) (unknown) (no date) (unknown) (unknown) 09/29/22 12:25 (units unknown) (unknown) (unknown) (no date) (unknown) (unknown) 09/29/22 12:47 (units unknown) (unknown) (unknown) (no date) (unknown) (unknown) 09/29/22 (units unknown) (unknown) (unknown) (no date) (unknown) (unknown) 0RF (units unknown) (unknown) (unknown) (no date) (unknown) (unknown) 1 - 2 tab PO BID (units unknown) (unknown) (unknown) (no date) (unknown) (unknown) 1 cap PO DAILY PRN (Reason: GI Upset) (units unknown) (unknown) (unknown) (no date) (unknown) (unknown) 10 mg PO DAILY PRN (Reason: Seasonal allergies) (units unknown) (unknown) (unknown) (no date) (unknown) (unknown) 10 mg PO DAILY (units unknown) (unknown) (unknown) (no date) (unknown) (unknown) 100 mg PO BID PRN (Reason: constipation) Qty: 30 0RF (units unknown) (unknown) (unknown) (no date) (unknown) (unknown) 11:39 (units unknown) (unknown) (unknown) (no date) (unknown) (unknown) [address] [place] (units unknown) (unknown) (unknown) (no date) (unknown) (unknown) 12:25 12:25 12:47 (units unknown) (unknown) (unknown) (no date) (unknown) (unknown) 20 mg PO BEDTIME (units unknown) (unknown) (unknown) (no date) (unknown) (unknown) 20 mg PO DAILY (units unknown) (unknown) (unknown) (no date) (unknown) (unknown) 3151 (units unknown) (unknown) (unknown) (no date) (unknown) (unknown) 400 mg PO Q4H MDD Ma x 2400 mg per day PRN (Reason: Pain/inflammation) Qty: 90 (units unknown) (unknown) (unknown) (no date) (unknown) (unknown) 650 mg PO Q6H MDD Ma x 3000 mg per day PRN (Reason: fever or pain) Qty: 90 0RF (units unknown) (unknown) (unknown) (no date) (unknown) (unknown) 81 mg PO BID 42 Days Qty: 84 0RF (units unknown) (unknown) (unknown) (no date) (unknown) (unknown) ? (units unknown) (unknown) (unknown) (no date) (unknown) (unknown) ALT 21 (<35) IU/L (units unknown) (unknown) (unknown) (no date) (unknown) (unknown) AST 37 H (14-36) IU/L (units unknown) (unknown) (unknown) (no date) (unknown) (unknown) Accession Number: [id number] ?? (units unknown) (unknown) (unknown) (no date) (unknown) (unknown) Acct:[id number] (units unknown) (unknown) (unknown) (no date) (unknown) (unknown) Age/Sex: 72 / F (units unknown) (unknown) (unknown) (no date) (unknown) (unknown) Albumin 3.7 (3.5-5.0 ) g/dL (units unknown) (unknown) (unknown) (no date) (unknown) (unknown) Albumin/Globulin Rat io 1.4 (1.0-2.8) (units unknown) (unknown) (unknown) (no date) (unknown) (unknown) Alkaline Phosphatase 89 (38-126) U/L (units unknown) (unknown) (unknown) (no date) (unknown) (unknown) Allergies (units unknown) (unknown) (unknown) (no date) (unknown) (unknown) Allergy/AdvReac Type Severity Reaction Status Date / Time (units unknown) (unknown) (unknown) (no date) (unknown) (unknown) [place] [address] (units unknown) (unknown) (unknown) (no date) (unknown) (unknown) Approved by: Parish Demarco M.D. on 09/29/2022 at 12:15? (units unknown) (unknown) (unknown) (no date) (unknown) (unknown) BUN 15 (7-17) mg/dL (units unknown) (unknown) (unknown) (no date) (unknown) (unknown) BUN/Creatinine Ratio 13.2 (6-22) (units unknown) (unknown) (unknown) (no date) (unknown) (unknown) Baso # (Auto) 0 (0-100) /uL (units unknown) (unknown) (unknown) (no date) (unknown) (unknown) Baso % (Auto) 0.6 (0-2) % (units unknown) (unknown) (unknown) (no date) (unknown) (unknown) Blood Pressure 175/7 6 H 04/22/23 11:39 (units unknown) (unknown) (unknown) (no date) (unknown) (unknown) Blood Pressure 175/7 6 H (units unknown) (unknown) (unknown) (no date) (unknown) (unknown) Bones:? Anteriorly dislocated left hip prosthesis noted.? Right hip (units unknown) (unknown) (unknown) (no date) (unknown) (unknown) COMPARISON:[facility], CR, XR HIP W PEL IF DONE LT 2V, 09/27/2022, 19:35. (units unknown) (unknown) (unknown) (no date) (unknown) (unknown) COVID19 -Nasal RAPID Stat (units unknown) (unknown) (unknown) (no date) (unknown) (unknown) CV: regular rate and rhythm, warm extremities (units unknown) (unknown) (unknown) (no date) (unknown) (unknown) Calcium 8.8 (8.4-10. 2) mg/dL (units unknown) (unknown) (unknown) (no date) (unknown) (unknown) Carbon Dioxide 29 (22-32) mmol/L (units unknown) (unknown) (unknown) (no date) (unknown) (unknown) Chief Complaint: Extremity Injury, Lower (units unknown) (unknown) (unknown) (no date) (unknown) (unknown) Chief Complaint: (units unknown) (unknown) (unknown) (no date) (unknown) (unknown) Chloride 105 (98-107 ) mmol/L (units unknown) (unknown) (unknown) (no date) (unknown) (unknown) Clinical Impression: (units unknown) (unknown) (unknown) (no date) (unknown) (unknown) Complete Blood Count AUTO DIFF Stat (units unknown) (unknown) (unknown) (no date) (unknown) (unknown) Comprehensive Metabolic Panel Stat (units unknown) (unknown) (unknown) (no date) (unknown) (unknown) Course of care: I sa w the patient and she does appear to have a dislocated left (units unknown) (unknown) (unknown) (no date) (unknown) (unknown) Course (units unknown) (unknown) (unknown) (no date) (unknown) (unknown) Creatinine 1.14 H (0.52-1.04) mg/dL (units unknown) (unknown) (unknown) (no date) (unknown) (unknown) : 1950 Acct:[id number] (units unknown) (unknown) (unknown) (no date) (unknown) (unknown) : 1950 (units unknown) (unknown) (unknown) (no date) (unknown) (unknown) Date of Service: 09/29/22 (units unknown) (unknown) (unknown) (no date) (unknown) (unknown) Departure (units unknown) (unknown) (unknown) (no date) (unknown) (unknown) Depression (units unknown) (unknown) (unknown) (no date) (unknown) (unknown) Diazepam (Diazepam 1 0 Mg/2 Ml Syringe) 2 mg IV NOW ONE (units unknown) (unknown) (unknown) (no date) (unknown) (unknown) Discharge Plan (units unknown) (unknown) (unknown) (no date) (unknown) (unknown) Discontinued Medications (units unknown) (unknown) (unknown) (no date) (unknown) (unknown) Dislocation, hip closed, Failure of left total hip arthroplasty with (units unknown) (unknown) (unknown) (no date) (unknown) (unknown) Diverticulitis (units unknown) (unknown) (unknown) (no date) (unknown) (unknown) Documented By: RL (units unknown) (unknown) (unknown) (no date) (unknown) (unknown) ED Orders (units unknown) (unknown) (unknown) (no date) (unknown) (unknown) ER Physician: Kelley Calix (units unknown) (unknown) (unknown) (no date) (unknown) (unknown) Emergency Report (units unknown) (unknown) (unknown) (no date) (unknown) (unknown) Eos # (Auto) 200 (0-450) /uL (units unknown) (unknown) (unknown) (no date) (unknown) (unknown) Eos % (Auto) 2.7 (2- 4) % (units unknown) (unknown) (unknown) (no date) (unknown) (unknown) Estimated GFR 51 L (>60) mL/min (units unknown) (unknown) (unknown) (no date) (unknown) (unknown) Exam Narrative: (units unknown) (unknown) (unknown) (no date) (unknown) (unknown) Exam (units unknown) (unknown) (unknown) (no date) (unknown) (unknown) Excedrin Extra Strength 250-250-65 mg Tablet (units unknown) (unknown) (unknown) (no date) (unknown) (unknown) Extra Strength) (units unknown) (unknown) (unknown) (no date) (unknown) (unknown) FINDINGS:? (units unknown) (unknown) (unknown) (no date) (unknown) (unknown) GERD (gastroesophage al reflux disease) (units unknown) (unknown) (unknown) (no date) (unknown) (unknown) GI: abdomen soft, nondistended, without CVA tenderness bilaterally. (units unknown) (unknown) (unknown) (no date) (unknown) (unknown) General (units unknown) (unknown) (unknown) (no date) (unknown) (unknown) General: Pleasant, sitting upright, in no acute distress, well groomed, afebrile (units unknown) (unknown) (unknown) (no date) (unknown) (unknown) Globulin 2.7 (1.7-4. 1) g/dL (units unknown) (unknown) (unknown) (no date) (unknown) (unknown) Glucose 106 (80-110) mg/dL (units unknown) (unknown) (unknown) (no date) (unknown) (unknown) HEENT: symmetrical facial expressions, moist mucous membranes, neck is supple (units unknown) (unknown) (unknown) (no date) (unknown) (unknown) HLD (hyperlipidemia) (units unknown) (unknown) (unknown) (no date) (unknown) (unknown) HPI - Extremity Inju ry (Lower) (units unknown) (unknown) (unknown) (no date) (unknown) (unknown) HPI Narrative: (units unknown) (unknown) (unknown) (no date) (unknown) (unknown) Hct 31.1 L (36-46) % (units unknown) (unknown) (unknown) (no date) (unknown) (unknown) Hearing impaired (units unknown) (unknown) (unknown) (no date) (unknown) (unknown) Hgb 10.6 L (12.0-16. 0) g/dL (units unknown) (unknown) (unknown) (no date) (unknown) (unknown) Hip Xray: (units unknown) (unknown) (unknown) (no date) (unknown) (unknown) History of Present Illness (units unknown) (unknown) (unknown) (no date) (unknown) (unknown) History of bladder surgery (units unknown) (unknown) (unknown) (no date) (unknown) (unknown) History of total lef t knee replacement (units unknown) (unknown) (unknown) (no date) (unknown) (unknown) History of total rig ht knee replacement (units unknown) (unknown) (unknown) (no date) (unknown) (unknown) Home Medications (units unknown) (unknown) (unknown) (no date) (unknown) (unknown) Hx of left breast biopsy (units unknown) (unknown) (unknown) (no date) (unknown) (unknown) Hx of right breast biopsy (units unknown) (unknown) (unknown) (no date) (unknown) (unknown) Hx of tonsillectomy (units unknown) (unknown) (unknown) (no date) (unknown) (unknown) Hydromorphone HCl (Hydromorphone 0.5 Mg Inj) 0.5 mg IV NOW ONE (units unknown) (unknown) (unknown) (no date) (unknown) (unknown) I have independently reviewed the patient's vital signs and nursing notes as (units unknown) (unknown) (unknown) (no date) (unknown) (unknown) IMPRESSION:? Anterio r dislocation, left total hip arthroplasty (units unknown) (unknown) (unknown) (no date) (unknown) (unknown) INDICATIONS:? ? dislocation (units unknown) (unknown) (unknown) (no date) (unknown) (unknown) Imaging Data (units unknown) (unknown) (unknown) (no date) (unknown) (unknown) Initial Vital Signs (units unknown) (unknown) (unknown) (no date) (unknown) (unknown) Initial Vital Signs: (units unknown) (unknown) (unknown) (no date) (unknown) (unknown) [address] [address] (units unknown) (unknown) (unknown) (no date) (unknown) (unknown) [facility] (units unknown) (unknown) (unknown) (no date) (unknown) (unknown) Lab Data (units unknown) (unknown) (unknown) (no date) (unknown) (unknown) Lab Results (units unknown) (unknown) (unknown) (no date) (unknown) (unknown) Labs: (units unknown) (unknown) (unknown) (no date) (unknown) (unknown) Last Admin: 09/29/22 13:23 Dose: 0.5 mg (units unknown) (unknown) (unknown) (no date) (unknown) (unknown) Last Admin: 09/29/22 13:23 Dose: 2 mg (units unknown) (unknown) (unknown) (no date) (unknown) (unknown) Lipase 44 (23-300) U/L (units unknown) (unknown) (unknown) (no date) (unknown) (unknown) Lipase Stat (units unknown) (unknown) (unknown) (no date) (unknown) (unknown) Loc: ED (units unknown) (unknown) (unknown) (no date) (unknown) (unknown) Lymph # (Auto) 1100 (5840-2695) /uL (units unknown) (unknown) (unknown) (no date) (unknown) (unknown) Lymph % (Auto) 13.3 L (25-40) % (units unknown) (unknown) (unknown) (no date) (unknown) (unknown) MCH 29.9 (26-34) PG (units unknown) (unknown) (unknown) (no date) (unknown) (unknown) MCHC 34.0 (30-36) % (units unknown) (unknown) (unknown) (no date) (unknown) (unknown) MCV 87.9 (80-100) fL (units unknown) (unknown) (unknown) (no date) (unknown) (unknown) MDM - Extremity Inju ry (Lower) (units unknown) (unknown) (unknown) (no date) (unknown) (unknown) MDM Narrative (units unknown) (unknown) (unknown) (no date) (unknown) (unknown) MR#: [id number] (units unknown) (unknown) (unknown) (no date) (unknown) (unknown) MSK: moves all extremities, no weakness, normal tone, left foot with brisk cap (units unknown) (unknown) (unknown) (no date) (unknown) (unknown) Medical History (units unknown) (unknown) (unknown) (no date) (unknown) (unknown) Medical decision making narrative: (units unknown) (unknown) (unknown) (no date) (unknown) (unknown) Medication Instructions Recorded Confirmed (units unknown) (unknown) (unknown) (no date) (unknown) (unknown) Medication Instructions Recorded (units unknown) (unknown) (unknown) (no date) (unknown) (unknown) Mode of arrival: EMS (units unknown) (unknown) (unknown) (no date) (unknown) (unknown) [place] # (Auto) 400 (0-900) /uL (units unknown) (unknown) (unknown) (no date) (unknown) (unknown) [place] % (Auto) 5.4 (3-14) % (units unknown) (unknown) (unknown) (no date) (unknown) (unknown) Multiple etiologies for patient's symptoms considered including, but not limited (units unknown) (unknown) (unknown) (no date) (unknown) (unknown) My Imaging interpretation: Patient's left hip appears to be anteriorly (units unknown) (unknown) (unknown) (no date) (unknown) (unknown) Narrative (units unknown) (unknown) (unknown) (no date) (unknown) (unknown) Neuro: clear speech and normal cognition, A+O x3, GCS 15, no focal motor or (units unknown) (unknown) (unknown) (no date) (unknown) (unknown) Neut # (Auto) 6300 (5977-7929) /uL (units unknown) (unknown) (unknown) (no date) (unknown) (unknown) Neut % (Auto) 78.0 H (50-75) % (units unknown) (unknown) (unknown) (no date) (unknown) (unknown) No Action (units unknown) (unknown) (unknown) (no date) (unknown) (unknown) No Known Drug Allergies Allergy Verified 09/29/22 12:10 (units unknown) (unknown) (unknown) (no date) (unknown) (unknown) Ordered: (units unknown) (unknown) (unknown) (no date) (unknown) (unknown) Ordering Provider: Madgaleno Kingston MD (units unknown) (unknown) (unknown) (no date) (unknown) (unknown) Orders (units unknown) (unknown) (unknown) (no date) (unknown) (unknown) Osteoarthritis (units unknown) (unknown) (unknown) (no date) (unknown) (unknown) Oxygen Delivery Meth od Room Air 09/29/22 11:39 (units unknown) (unknown) (unknown) (no date) (unknown) (unknown) Oxygen Delivery Meth od Room Air (units unknown) (unknown) (unknown) (no date) (unknown) (unknown) PROCEDURE:? XR HIP W PEL IF DONE LT 2V (units unknown) (unknown) (unknown) (no date) (unknown) (unknown) PT and DP pulses are 2+,. (units unknown) (unknown) (unknown) (no date) (unknown) (unknown) Pain/inflammation #9 0 tabs (units unknown) (unknown) (unknown) (no date) (unknown) (unknown) Patient Disposition: Home (units unknown) (unknown) (unknown) (no date) (unknown) (unknown) Patient History (units unknown) (unknown) (unknown) (no date) (unknown) (unknown) Patient has a histor y of dyslipidemia, anxiety, and left hip arthroplasty on (units unknown) (unknown) (unknown) (no date) (unknown) (unknown) Patient is appropria te for outpatient management. (units unknown) (unknown) (unknown) (no date) (unknown) (unknown) Patient: Barbara Garcia MR#: [id number] (units unknown) (unknown) (unknown) (no date) (unknown) (unknown) Patient: Selene Garcia (units unknown) (unknown) (unknown) (no date) (unknown) (unknown) Pertinent lab findin gs reviewed: (units unknown) (unknown) (unknown) (no date) (unknown) (unknown) Plt Count 315 (150-400) X103/uL (units unknown) (unknown) (unknown) (no date) (unknown) (unknown) Potassium 3.5 (3.4-5.1) mmol/L (units unknown) (unknown) (unknown) (no date) (unknown) (unknown) Prescriptions: (units unknown) (unknown) (unknown) (no date) (unknown) (unknown) Prevent blood clots (units unknown) (unknown) (unknown) (no date) (unknown) (unknown) Previous Rx's (units unknown) (unknown) (unknown) (no date) (unknown) (unknown) Procedure: XR hip w pel if done LT 2V (units unknown) (unknown) (unknown) (no date) (unknown) (unknown) Pulse Oximetry 100 09/29/22 11:39 (units unknown) (unknown) (unknown) (no date) (unknown) (unknown) Pulse Oximetry 100 (units unknown) (unknown) (unknown) (no date) (unknown) (unknown) Pulse Rate 62 11:39 (units unknown) (unknown) (unknown) (no date) (unknown) (unknown) Pulse Rate 62 (units unknown) (unknown) (unknown) (no date) (unknown) (unknown) Questions are addressed and there is agreement with the plan and for follow-up. (units unknown) (unknown) (unknown) (no date) (unknown) (unknown) RBC 3.53 L (4.0-5.2) X106/uL (units unknown) (unknown) (unknown) (no date) (unknown) (unknown) RDW 14.4 (11.6-14.8) % (units unknown) (unknown) (unknown) (no date) (unknown) (unknown) ROS Unobtainable: Al l systems reviewed + are unremarkable except as noted in HPI (units unknown) (unknown) (unknown) (no date) (unknown) (unknown) Radiologist's Impression: (units unknown) (unknown) (unknown) (no date) (unknown) (unknown) Referrals: (units unknown) (unknown) (unknown) (no date) (unknown) (unknown) Related Data (units unknown) (unknown) (unknown) (no date) (unknown) (unknown) Respiratory Rate 18 09/29/22 11:39 (units unknown) (unknown) (unknown) (no date) (unknown) (unknown) Respiratory Rate 18 (units unknown) (unknown) (unknown) (no date) (unknown) (unknown) Respiratory: normal work of breathing, without tachypnea or hypoxia. (units unknown) (unknown) (unknown) (no date) (unknown) (unknown) Review of Systems (units unknown) (unknown) (unknown) (no date) (unknown) (unknown) Reviewed vitals sign s and nursing notes. (units unknown) (unknown) (unknown) (no date) (unknown) (unknown) Rx Instructions: (units unknown) (unknown) (unknown) (no date) (unknown) (unknown) SARS-CoV-2 (PCR) Negative (Negative) (units unknown) (unknown) (unknown) (no date) (unknown) (unknown) Seasonal allergies (units unknown) (unknown) (unknown) (no date) (unknown) (unknown) She required reducti on of her left hip with Dr. Roberts. There were several (units unknown) (unknown) (unknown) (no date) (unknown) (unknown) Signed By: (units unknown) (unknown) (unknown) (no date) (unknown) (unknown) Signed (units unknown) (unknown) (unknown) (no date) (unknown) (unknown) Skin: brisk capillar y refill, without rash or wound (units unknown) (unknown) (unknown) (no date) (unknown) (unknown) Smoking Status: Carmencita r smoker (units unknown) (unknown) (unknown) (no date) (unknown) (unknown) Social History (units unknown) (unknown) (unknown) (no date) (unknown) (unknown) Social consideration s that may affect disposition: none (units unknown) (unknown) (unknown) (no date) (unknown) (unknown) Sodium 140 (137-145) mmol/L (units unknown) (unknown) (unknown) (no date) (unknown) (unknown) Soft tissues:? No suspicious soft tissue calcifications or masses.? (units unknown) (unknown) (unknown) (no date) (unknown) (unknown) Source: patient and EMS (units unknown) (unknown) (unknown) (no date) (unknown) (unknown) Stand Alone Forms: Patient Portal/API (units unknown) (unknown) (unknown) (no date) (unknown) (unknown) Stated Complaint: L Hip Dislocated t-2 days (units unknown) (unknown) (unknown) (no date) (unknown) (unknown) Stop: 09/29/22 13:01 (units unknown) (unknown) (unknown) (no date) (unknown) (unknown) Substance Use Type: does not use (units unknown) (unknown) (unknown) (no date) (unknown) (unknown) Surgical History (units unknown) (unknown) (unknown) (no date) (unknown) (unknown) TECHNIQUE:? 2 views of the hip were acquired.? (units unknown) (unknown) (unknown) (no date) (unknown) (unknown) Temperature 98.6 F 09/29/22 11:39 (units unknown) (unknown) (unknown) (no date) (unknown) (unknown) Temperature 98.6 F (units unknown) (unknown) (unknown) (no date) (unknown) (unknown) This is a 72 year female presents to the emergency department via EMS with (units unknown) (unknown) (unknown) (no date) (unknown) (unknown) Time Seen by Provide r: 09/29/22 12:55 (units unknown) (unknown) (unknown) (no date) (unknown) (unknown) Total Bilirubin 0.4 (0.2-1.3) mg/dL (units unknown) (unknown) (unknown) (no date) (unknown) (unknown) Total Protein 6.4 (6.3-8.2) g/dL (units unknown) (unknown) (unknown) (no date) (unknown) (unknown) Vital Signs - 8 hr (units unknown) (unknown) (unknown) (no date) (unknown) (unknown) Vital Signs (units unknown) (unknown) (unknown) (no date) (unknown) (unknown) Vital signs: (units unknown) (unknown) (unknown) (no date) (unknown) (unknown) WBC 8.0 (4.5-11.0) X103/uL (units unknown) (unknown) (unknown) (no date) (unknown) (unknown) XR hip w pel if done LT 2V Stat (units unknown) (unknown) (unknown) (no date) (unknown) (unknown) XRay Report (units unknown) (unknown) (unknown) (no date) (unknown) (unknown) Maria Teresa Larsen PA-C [Primary Care Provider] (units unknown) (unknown) (unknown) (no date) (unknown) (unknown) [Embedded Image Not Available] (units unknown) (unknown) (unknown) (no date) (unknown) (unknown) acetaminophen 325 mg Tablet (units unknown) (unknown) (unknown) (no date) (unknown) (unknown) acetaminophen 325 mg tablet 650 mg PO Q6H PRN fever or pain 09/15/22 (units unknown) (unknown) (unknown) (no date) (unknown) (unknown) alcohol intake frequency: holidays/special occasions only (units unknown) (unknown) (unknown) (no date) (unknown) (unknown) alcohol intake: current (units unknown) (unknown) (unknown) (no date) (unknown) (unknown) allergies (units unknown) (unknown) (unknown) (no date) (unknown) (unknown) and below (units unknown) (unknown) (unknown) (no date) (unknown) (unknown) any numbness. Megha del toro states that today she was standing with her walker, (units unknown) (unknown) (unknown) (no date) (unknown) (unknown) aspirin 81 mg Tablet,Delayed Release (Dr/Ec) (units unknown) (unknown) (unknown) (no date) (unknown) (unknown) aspirin 81 mg tablet,delayed 81 mg PO BID 6 weeks #84 tabs 09/15/22 (units unknown) (unknown) (unknown) (no date) (unknown) (unknown) aspirin-acetaminophe n- caffeine 250 1 - 2 tab PO BID 08/13/22 09/27/22 (units unknown) (unknown) (unknown) (no date) (unknown) (unknown) atorvastatin 20 mg Tablet (units unknown) (unknown) (unknown) (no date) (unknown) (unknown) atorvastatin 20 mg tablet 20 mg PO BEDTIME 08/13/22 09/27/22 (units unknown) (unknown) (unknown) (no date) (unknown) (unknown) attempts with tracti on and none of them worked. She was discharged from the (units unknown) (unknown) (unknown) (no date) (unknown) (unknown) bicarbonate 1.1 gram capsule (units unknown) (unknown) (unknown) (no date) (unknown) (unknown) caps (units unknown) (unknown) (unknown) (no date) (unknown) (unknown) causing her to fall but she denies hitting her head. Her states that he (units unknown) (unknown) (unknown) (no date) (unknown) (unknown) cetirizine 10 mg tablet (Zyrtec) 10 mg PO DAILY PRN Seasonal 08/13/22 09/27/22 (units unknown) (unknown) (unknown) (no date) (unknown) (unknown) cetirizine [Zyrtec] 10 mg Tablet (units unknown) (unknown) (unknown) (no date) (unknown) (unknown) concern of a left hi p dislocation status post hip dislocation 2 days ago. (units unknown) (unknown) (unknown) (no date) (unknown) (unknown) denies any sensation changes, she can wiggle her toes and her foot and denies (units unknown) (unknown) (unknown) (no date) (unknown) (unknown) dislocated. (units unknown) (unknown) (unknown) (no date) (unknown) (unknown) dislocation of hip (units unknown) (unknown) (unknown) (no date) (unknown) (unknown) dislocation. She had pain down her leg and states it feels similar today. She (units unknown) (unknown) (unknown) (no date) (unknown) (unknown) docusate sodium 100 mg Capsule (units unknown) (unknown) (unknown) (no date) (unknown) (unknown) docusate sodium 100 mg capsule 100 mg PO BID PRN constipation #30 09/15/22 (units unknown) (unknown) (unknown) (no date) (unknown) (unknown) escitalopram oxalate 20 mg Tablet (units unknown) (unknown) (unknown) (no date) (unknown) (unknown) escitalopram oxalate 20 mg tablet 20 mg PO DAILY 08/13/22 09/27/22 (units unknown) (unknown) (unknown) (no date) (unknown) (unknown) evidence of pelvic fracture (units unknown) (unknown) (unknown) (no date) (unknown) (unknown) helped her. She has not been able to move her left knee or left hip at all. (units unknown) (unknown) (unknown) (no date) (unknown) (unknown) her pain was quite severe, requiring a muscle relaxer, Dilaudid and morphine, (units unknown) (unknown) (unknown) (no date) (unknown) (unknown) hip. Pending radiology's interpretation. Will contact Dr. Aviles for (units unknown) (unknown) (unknown) (no date) (unknown) (unknown) hospital today. Stat es this happened at 09:00 this morning. She states that (units unknown) (unknown) (unknown) (no date) (unknown) (unknown) household members: spouse (units unknown) (unknown) (unknown) (no date) (unknown) (unknown) ibuprofen 400 mg Tablet (units unknown) (unknown) (unknown) (no date) (unknown) (unknown) ibuprofen 400 mg tablet 400 mg PO Q4H PRN 09/15/22 (units unknown) (unknown) (unknown) (no date) (unknown) (unknown) mg-250 mg-65 mg tabl et (Excedrin (units unknown) (unknown) (unknown) (no date) (unknown) (unknown) omeprazole 20 mg-sodium 1 cap PO DAILY PRN GI Upset 08/13/22 09/27/22 (units unknown) (unknown) (unknown) (no date) (unknown) (unknown) omeprazole-sodium bicarbonate [Zegerid] 20-1.1 mg-gram Capsule (units unknown) (unknown) (unknown) (no date) (unknown) (unknown) reduction as patient required complicated reduction in the OR 2 days ago. (units unknown) (unknown) (unknown) (no date) (unknown) (unknown) refill, warm to touc h, no rotation, equivocal length when compared to the right, (units unknown) (unknown) (unknown) (no date) (unknown) (unknown) release (units unknown) (unknown) (unknown) (no date) (unknown) (unknown) sensation deficits (units unknown) (unknown) (unknown) (no date) (unknown) (unknown) solifenacin 10 mg tablet (Vesicare) 10 mg PO DAILY 08/13/22 09/27/22 (units unknown) (unknown) (unknown) (no date) (unknown) (unknown) solifenacin [Vesicar e] 10 mg Tablet (units unknown) (unknown) (unknown) (no date) (unknown) (unknown) states that she turn ed her head to the right and felt a pop in her left hip (units unknown) (unknown) (unknown) (no date) (unknown) (unknown) to: (units unknown) (unknown) (unknown) (no date) (unknown) (unknown) unremarkable.? No (units unknown) (unknown) (unknown) (no date) (unknown) (unknown) well as prior record s if available. Pertinent records include: (units unknown) (unknown) Result panel 1322 (unknown) (no date) (unknown) (unknown) (no value) (units unknown) (unknown) (unknown) (no date) (unknown) (unknown) #90 tabs (units unknown) (unknown) (unknown) (no date) (unknown) (unknown) (Zegerid) (units unknown) (unknown) (unknown) (no date) (unknown) (unknown) 09/14/[address] Annika River. Patient came into the emergency department on (units unknown) (unknown) (unknown) (no date) (unknown) (unknown) 09/27/2022 after a sitting to standing complication causing a left hip (units unknown) (unknown) (unknown) (no date) (unknown) (unknown) 09/29/22 09/29/22 09/29/22 Range/Units (units unknown) (unknown) (unknown) (no date) (unknown) (unknown) 09/29/22 11:44 (units unknown) (unknown) (unknown) (no date) (unknown) (unknown) 09/29/22 12:25 (units unknown) (unknown) (unknown) (no date) (unknown) (unknown) 09/29/22 12:47 (units unknown) (unknown) (unknown) (no date) (unknown) (unknown) 09/29/22 (units unknown) (unknown) (unknown) (no date) (unknown) (unknown) 0RF (units unknown) (unknown) (unknown) (no date) (unknown) (unknown) 1 - 2 tab PO BID (units unknown) (unknown) (unknown) (no date) (unknown) (unknown) 1 cap PO DAILY PRN (Reason: GI Upset) (units unknown) (unknown) (unknown) (no date) (unknown) (unknown) 10 mg PO DAILY PRN (Reason: Seasonal allergies) (units unknown) (unknown) (unknown) (no date) (unknown) (unknown) 10 mg PO DAILY (units unknown) (unknown) (unknown) (no date) (unknown) (unknown) 100 mg PO BID PRN (Reason: constipation) Qty: 30 0RF (units unknown) (unknown) (unknown) (no date) (unknown) (unknown) 11:39 (units unknown) (unknown) (unknown) (no date) (unknown) (unknown) [address] [place] (units unknown) (unknown) (unknown) (no date) (unknown) (unknown) 12:25 12:25 12:47 (units unknown) (unknown) (unknown) (no date) (unknown) (unknown) 20 mg PO BEDTIME (units unknown) (unknown) (unknown) (no date) (unknown) (unknown) 20 mg PO DAILY (units unknown) (unknown) (unknown) (no date) (unknown) (unknown) 3151 (units unknown) (unknown) (unknown) (no date) (unknown) (unknown) 400 mg PO Q4H MDD Ma x 2400 mg per day PRN (Reason: Pain/inflammation) Qty: 90 (units unknown) (unknown) (unknown) (no date) (unknown) (unknown) 650 mg PO Q6H MDD Ma x 3000 mg per day PRN (Reason: fever or pain) Qty: 90 0RF (units unknown) (unknown) (unknown) (no date) (unknown) (unknown) 81 mg PO BID 42 Days Qty: 84 0RF (units unknown) (unknown) (unknown) (no date) (unknown) (unknown) ? (units unknown) (unknown) (unknown) (no date) (unknown) (unknown) ALT 21 (<35) IU/L (units unknown) (unknown) (unknown) (no date) (unknown) (unknown) AST 37 H (14-36) IU/L (units unknown) (unknown) (unknown) (no date) (unknown) (unknown) Accession Number: [id number] ?? (units unknown) (unknown) (unknown) (no date) (unknown) (unknown) Acct:[id number] (units unknown) (unknown) (unknown) (no date) (unknown) (unknown) Age/Sex: 72 / F (units unknown) (unknown) (unknown) (no date) (unknown) (unknown) Albumin 3.7 (3.5-5.0 ) g/dL (units unknown) (unknown) (unknown) (no date) (unknown) (unknown) Albumin/Globulin Rat io 1.4 (1.0-2.8) (units unknown) (unknown) (unknown) (no date) (unknown) (unknown) Alkaline Phosphatase 89 (38-126) U/L (units unknown) (unknown) (unknown) (no date) (unknown) (unknown) Allergies (units unknown) (unknown) (unknown) (no date) (unknown) (unknown) Allergy/AdvReac Type Severity Reaction Status Date / Time (units unknown) (unknown) (unknown) (no date) (unknown) (unknown) [place] [address] (units unknown) (unknown) (unknown) (no date) (unknown) (unknown) Approved by: Parish Demarco M.D. on 09/29/2022 at 12:15? (units unknown) (unknown) (unknown) (no date) (unknown) (unknown) BUN 15 (7-17) mg/dL (units unknown) (unknown) (unknown) (no date) (unknown) (unknown) BUN/Creatinine Ratio 13.2 (6-22) (units unknown) (unknown) (unknown) (no date) (unknown) (unknown) Baso # (Auto) 0 (0-100) /uL (units unknown) (unknown) (unknown) (no date) (unknown) (unknown) Baso % (Auto) 0.6 (0-2) % (units unknown) (unknown) (unknown) (no date) (unknown) (unknown) Blood Pressure 175/7 6 H 09/29/22 11:39 (units unknown) (unknown) (unknown) (no date) (unknown) (unknown) Blood Pressure 175/7 6 H (units unknown) (unknown) (unknown) (no date) (unknown) (unknown) Bones:? Anteriorly dislocated left hip prosthesis noted.? Right hip (units unknown) (unknown) (unknown) (no date) (unknown) (unknown) COMPARISON:? [facility], CR, XR HIP W PEL IF DONE LT 2V, 09/27/2022, 19:35. (units unknown) (unknown) (unknown) (no date) (unknown) (unknown) COVID19 -Nasal RAPID Stat (units unknown) (unknown) (unknown) (no date) (unknown) (unknown) CV: regular rate and rhythm, warm extremities (units unknown) (unknown) (unknown) (no date) (unknown) (unknown) Calcium 8.8 (8.4-10. 2) mg/dL (units unknown) (unknown) (unknown) (no date) (unknown) (unknown) Carbon Dioxide 29 (22-32) mmol/L (units unknown) (unknown) (unknown) (no date) (unknown) (unknown) Chief Complaint: Extremity Injury, Lower (units unknown) (unknown) (unknown) (no date) (unknown) (unknown) Chief Complaint: Lef t hip pain with pop, concern for dislocation (units unknown) (unknown) (unknown) (no date) (unknown) (unknown) Chloride 105 (98-107 ) mmol/L (units unknown) (unknown) (unknown) (no date) (unknown) (unknown) Clinical Impression: (units unknown) (unknown) (unknown) (no date) (unknown) (unknown) Complete Blood Count AUTO DIFF Stat (units unknown) (unknown) (unknown) (no date) (unknown) (unknown) Comprehensive Metabolic Panel Stat (units unknown) (unknown) (unknown) (no date) (unknown) (unknown) Course of care: I sa w the patient and she does appear to have a dislocated left (units unknown) (unknown) (unknown) (no date) (unknown) (unknown) Course (units unknown) (unknown) (unknown) (no date) (unknown) (unknown) Creatinine 1.14 H (0.52-1.04) mg/dL (units unknown) (unknown) (unknown) (no date) (unknown) (unknown) : 1950 Acct:[id number] (units unknown) (unknown) (unknown) (no date) (unknown) (unknown) : 1950 (units unknown) (unknown) (unknown) (no date) (unknown) (unknown) Date of Service: 09/29/22 (units unknown) (unknown) (unknown) (no date) (unknown) (unknown) Departure (units unknown) (unknown) (unknown) (no date) (unknown) (unknown) Depression (units unknown) (unknown) (unknown) (no date) (unknown) (unknown) Diazepam (Diazepam 1 0 Mg/2 Ml Syringe) 2 mg IV NOW ONE (units unknown) (unknown) (unknown) (no date) (unknown) (unknown) Discharge Plan (units unknown) (unknown) (unknown) (no date) (unknown) (unknown) Discontinued Medications (units unknown) (unknown) (unknown) (no date) (unknown) (unknown) Dislocation, hip closed, Failure of left total hip arthroplasty with (units unknown) (unknown) (unknown) (no date) (unknown) (unknown) Diverticulitis (units unknown) (unknown) (unknown) (no date) (unknown) (unknown) Documented By: RL (units unknown) (unknown) (unknown) (no date) (unknown) (unknown) ED Orders (units unknown) (unknown) (unknown) (no date) (unknown) (unknown) ER Physician: Kelley Calix (units unknown) (unknown) (unknown) (no date) (unknown) (unknown) Emergency Report (units unknown) (unknown) (unknown) (no date) (unknown) (unknown) Eos # (Auto) 200 (0-450) /uL (units unknown) (unknown) (unknown) (no date) (unknown) (unknown) Eos % (Auto) 2.7 (2- 4) % (units unknown) (unknown) (unknown) (no date) (unknown) (unknown) Estimated GFR 51 L (>60) mL/min (units unknown) (unknown) (unknown) (no date) (unknown) (unknown) Exam Narrative: (units unknown) (unknown) (unknown) (no date) (unknown) (unknown) Exam (units unknown) (unknown) (unknown) (no date) (unknown) (unknown) Excedrin Extra Strength 250-250-65 mg Tablet (units unknown) (unknown) (unknown) (no date) (unknown) (unknown) Extra Strength) (units unknown) (unknown) (unknown) (no date) (unknown) (unknown) FINDINGS:? (units unknown) (unknown) (unknown) (no date) (unknown) (unknown) GERD (gastroesophage al reflux disease) (units unknown) (unknown) (unknown) (no date) (unknown) (unknown) GI: abdomen soft, nondistended, without CVA tenderness bilaterally. (units unknown) (unknown) (unknown) (no date) (unknown) (unknown) General (units unknown) (unknown) (unknown) (no date) (unknown) (unknown) General: Pleasant, lying on gurney, complaining of pain but is not in acute (units unknown) (unknown) (unknown) (no date) (unknown) (unknown) Globulin 2.7 (1.7-4. 1) g/dL (units unknown) (unknown) (unknown) (no date) (unknown) (unknown) Glucose 106 (80-110) mg/dL (units unknown) (unknown) (unknown) (no date) (unknown) (unknown) HEENT: symmetrical facial expressions, moist mucous membranes (units unknown) (unknown) (unknown) (no date) (unknown) (unknown) HLD (hyperlipidemia) (units unknown) (unknown) (unknown) (no date) (unknown) (unknown) HPI - Extremity Inju ry (Lower) (units unknown) (unknown) (unknown) (no date) (unknown) (unknown) HPI Narrative: (units unknown) (unknown) (unknown) (no date) (unknown) (unknown) Hct 31.1 L (36-46) % (units unknown) (unknown) (unknown) (no date) (unknown) (unknown) Hearing impaired (units unknown) (unknown) (unknown) (no date) (unknown) (unknown) Hgb 10.6 L (12.0-16. 0) g/dL (units unknown) (unknown) (unknown) (no date) (unknown) (unknown) Hip Xray: (units unknown) (unknown) (unknown) (no date) (unknown) (unknown) History of Present Illness (units unknown) (unknown) (unknown) (no date) (unknown) (unknown) History of bladder surgery (units unknown) (unknown) (unknown) (no date) (unknown) (unknown) History of total lef t knee replacement (units unknown) (unknown) (unknown) (no date) (unknown) (unknown) History of total rig ht knee replacement (units unknown) (unknown) (unknown) (no date) (unknown) (unknown) Home Medications (units unknown) (unknown) (unknown) (no date) (unknown) (unknown) Hx of left breast biopsy (units unknown) (unknown) (unknown) (no date) (unknown) (unknown) Hx of right breast biopsy (units unknown) (unknown) (unknown) (no date) (unknown) (unknown) Hx of tonsillectomy (units unknown) (unknown) (unknown) (no date) (unknown) (unknown) Hydromorphone HCl (Hydromorphone 0.5 Mg Inj) 0.5 mg IV NOW ONE (units unknown) (unknown) (unknown) (no date) (unknown) (unknown) I have independently reviewed the patient's vital signs and nursing notes as (units unknown) (unknown) (unknown) (no date) (unknown) (unknown) IMPRESSION:? Anterio r dislocation, left total hip arthroplasty (units unknown) (unknown) (unknown) (no date) (unknown) (unknown) INDICATIONS:? ? dislocation (units unknown) (unknown) (unknown) (no date) (unknown) (unknown) Imaging Data (units unknown) (unknown) (unknown) (no date) (unknown) (unknown) Initial Vital Signs (units unknown) (unknown) (unknown) (no date) (unknown) (unknown) Initial Vital Signs: (units unknown) (unknown) (unknown) (no date) (unknown) (unknown) [address] [address] (units unknown) (unknown) (unknown) (no date) (unknown) (unknown) [facility] (units unknown) (unknown) (unknown) (no date) (unknown) (unknown) Lab Data (units unknown) (unknown) (unknown) (no date) (unknown) (unknown) Lab Results (units unknown) (unknown) (unknown) (no date) (unknown) (unknown) Labs: (units unknown) (unknown) (unknown) (no date) (unknown) (unknown) Last Admin: 09/29/22 13:23 Dose: 0.5 mg (units unknown) (unknown) (unknown) (no date) (unknown) (unknown) Last Admin: 09/29/22 13:23 Dose: 2 mg (units unknown) (unknown) (unknown) (no date) (unknown) (unknown) Lipase 44 (23-300) U/L (units unknown) (unknown) (unknown) (no date) (unknown) (unknown) Lipase Stat (units unknown) (unknown) (unknown) (no date) (unknown) (unknown) Loc: ED (units unknown) (unknown) (unknown) (no date) (unknown) (unknown) Lymph # (Auto) 1100 (5610-7202) /uL (units unknown) (unknown) (unknown) (no date) (unknown) (unknown) Lymph % (Auto) 13.3 L (25-40) % (units unknown) (unknown) (unknown) (no date) (unknown) (unknown) MCH 29.9 (26-34) PG (units unknown) (unknown) (unknown) (no date) (unknown) (unknown) MCHC 34.0 (30-36) % (units unknown) (unknown) (unknown) (no date) (unknown) (unknown) MCV 87.9 (80-100) fL (units unknown) (unknown) (unknown) (no date) (unknown) (unknown) MDM - Extremity Inju ry (Lower) (units unknown) (unknown) (unknown) (no date) (unknown) (unknown) MDM Narrative (units unknown) (unknown) (unknown) (no date) (unknown) (unknown) MR#: [id number] (units unknown) (unknown) (unknown) (no date) (unknown) (unknown) MSK: moves all extremities, no weakness, normal tone, left foot with brisk cap (units unknown) (unknown) (unknown) (no date) (unknown) (unknown) Medical History (units unknown) (unknown) (unknown) (no date) (unknown) (unknown) Medical decision making narrative: (units unknown) (unknown) (unknown) (no date) (unknown) (unknown) Medication Instructions Recorded Confirmed (units unknown) (unknown) (unknown) (no date) (unknown) (unknown) Medication Instructions Recorded (units unknown) (unknown) (unknown) (no date) (unknown) (unknown) Mode of arrival: EMS (units unknown) (unknown) (unknown) (no date) (unknown) (unknown) [place] # (Auto) 400 (0-900) /uL (units unknown) (unknown) (unknown) (no date) (unknown) (unknown) [place] % (Auto) 5.4 (3-14) % (units unknown) (unknown) (unknown) (no date) (unknown) (unknown) Multiple etiologies for patient's symptoms considered including, but not limited (units unknown) (unknown) (unknown) (no date) (unknown) (unknown) My Imaging interpretation: Patient's left hip appears to be anteriorly (units unknown) (unknown) (unknown) (no date) (unknown) (unknown) Narrative (units unknown) (unknown) (unknown) (no date) (unknown) (unknown) Neuro: clear speech and normal cognition, A+O x3, GCS 15, no sensation deficits (units unknown) (unknown) (unknown) (no date) (unknown) (unknown) Neut # (Auto) 6300 (1416-0291) /uL (units unknown) (unknown) (unknown) (no date) (unknown) (unknown) Neut % (Auto) 78.0 H (50-75) % (units unknown) (unknown) (unknown) (no date) (unknown) (unknown) No Action (units unknown) (unknown) (unknown) (no date) (unknown) (unknown) No Known Drug Allergies Allergy Verified 09/29/22 12:10 (units unknown) (unknown) (unknown) (no date) (unknown) (unknown) Ordered: (units unknown) (unknown) (unknown) (no date) (unknown) (unknown) Ordering Provider: Magdaleno Kingston MD (units unknown) (unknown) (unknown) (no date) (unknown) (unknown) Orders (units unknown) (unknown) (unknown) (no date) (unknown) (unknown) Osteoarthritis (units unknown) (unknown) (unknown) (no date) (unknown) (unknown) Oxygen Delivery Meth od Room Air 09/29/22 11:39 (units unknown) (unknown) (unknown) (no date) (unknown) (unknown) Oxygen Delivery Meth od Room Air (units unknown) (unknown) (unknown) (no date) (unknown) (unknown) PROCEDURE:? XR HIP W PEL IF DONE LT 2V (units unknown) (unknown) (unknown) (no date) (unknown) (unknown) PT and DP pulses are 2+, palpation left hip appears to be anterior dislocation. (units unknown) (unknown) (unknown) (no date) (unknown) (unknown) Paging Dr. Aviles [phone] (units unknown) (unknown) (unknown) (no date) (unknown) (unknown) Pain/inflammation #9 0 tabs (units unknown) (unknown) (unknown) (no date) (unknown) (unknown) Patient Disposition: Home (units unknown) (unknown) (unknown) (no date) (unknown) (unknown) Patient History (units unknown) (unknown) (unknown) (no date) (unknown) (unknown) Patient has a histor y of dyslipidemia, anxiety, and left hip arthroplasty on (units unknown) (unknown) (unknown) (no date) (unknown) (unknown) Patient has not been able to move her hip or left knee at all. Complaining of (units unknown) (unknown) (unknown) (no date) (unknown) (unknown) Patient: Barbara Garcia MR#: [id number] (units unknown) (unknown) (unknown) (no date) (unknown) (unknown) Patient: Selene Garcia (units unknown) (unknown) (unknown) (no date) (unknown) (unknown) Plt Count 315 (150-400) X103/uL (units unknown) (unknown) (unknown) (no date) (unknown) (unknown) Potassium 3.5 (3.4-5.1) mmol/L (units unknown) (unknown) (unknown) (no date) (unknown) (unknown) Prescriptions: (units unknown) (unknown) (unknown) (no date) (unknown) (unknown) Prevent blood clots (units unknown) (unknown) (unknown) (no date) (unknown) (unknown) Previous Rx's (units unknown) (unknown) (unknown) (no date) (unknown) (unknown) Procedure: XR hip w pel if done LT 2V (units unknown) (unknown) (unknown) (no date) (unknown) (unknown) Pulse Oximetry 100 09/29/22 11:39 (units unknown) (unknown) (unknown) (no date) (unknown) (unknown) Pulse Oximetry 100 (units unknown) (unknown) (unknown) (no date) (unknown) (unknown) Pulse Rate 62 11:39 (units unknown) (unknown) (unknown) (no date) (unknown) (unknown) Pulse Rate 62 (units unknown) (unknown) (unknown) (no date) (unknown) (unknown) Questions are addressed and there is agreement with the plan and for follow-up. (units unknown) (unknown) (unknown) (no date) (unknown) (unknown) RBC 3.53 L (4.0-5.2) X106/uL (units unknown) (unknown) (unknown) (no date) (unknown) (unknown) RDW 14.4 (11.6-14.8) % (units unknown) (unknown) (unknown) (no date) (unknown) (unknown) ROS Unobtainable: Al l systems reviewed + are unremarkable except as noted in HPI (units unknown) (unknown) (unknown) (no date) (unknown) (unknown) Radiologist's Impression: (units unknown) (unknown) (unknown) (no date) (unknown) (unknown) Referrals: (units unknown) (unknown) (unknown) (no date) (unknown) (unknown) Related Data (units unknown) (unknown) (unknown) (no date) (unknown) (unknown) Respiratory Rate 18 09/29/22 11:39 (units unknown) (unknown) (unknown) (no date) (unknown) (unknown) Respiratory Rate 18 (units unknown) (unknown) (unknown) (no date) (unknown) (unknown) Respiratory: normal work of breathing, without tachypnea or hypoxia. (units unknown) (unknown) (unknown) (no date) (unknown) (unknown) Review of Systems (units unknown) (unknown) (unknown) (no date) (unknown) (unknown) Reviewed vitals sign s and nursing notes. (units unknown) (unknown) (unknown) (no date) (unknown) (unknown) Rx Instructions: (units unknown) (unknown) (unknown) (no date) (unknown) (unknown) SARS-CoV-2 (PCR) Negative (Negative) (units unknown) (unknown) (unknown) (no date) (unknown) (unknown) Seasonal allergies (units unknown) (unknown) (unknown) (no date) (unknown) (unknown) She required reducti on of her left hip with Dr. Roberts. There were several (units unknown) (unknown) (unknown) (no date) (unknown) (unknown) Signed By: (units unknown) (unknown) (unknown) (no date) (unknown) (unknown) Signed (units unknown) (unknown) (unknown) (no date) (unknown) (unknown) Skin: brisk capillar y refill, without rash or wound (units unknown) (unknown) (unknown) (no date) (unknown) (unknown) Smoking Status: Carmencita rubin smoker (units unknown) (unknown) (unknown) (no date) (unknown) (unknown) Social History (units unknown) (unknown) (unknown) (no date) (unknown) (unknown) Social consideration s that may affect disposition: none (units unknown) (unknown) (unknown) (no date) (unknown) (unknown) Sodium 140 (137-145) mmol/L (units unknown) (unknown) (unknown) (no date) (unknown) (unknown) Soft tissues:? No suspicious soft tissue calcifications or masses.? (units unknown) (unknown) (unknown) (no date) (unknown) (unknown) Source: patient and EMS (units unknown) (unknown) (unknown) (no date) (unknown) (unknown) Stand Alone Forms: Patient Portal/API (units unknown) (unknown) (unknown) (no date) (unknown) (unknown) Stated Complaint: L Hip Dislocated t-2 days (units unknown) (unknown) (unknown) (no date) (unknown) (unknown) Stop: 09/29/22 13:01 (units unknown) (unknown) (unknown) (no date) (unknown) (unknown) Substance Use Type: does not use (units unknown) (unknown) (unknown) (no date) (unknown) (unknown) Surgical History (units unknown) (unknown) (unknown) (no date) (unknown) (unknown) TECHNIQUE:? 2 views of the hip were acquired.? (units unknown) (unknown) (unknown) (no date) (unknown) (unknown) Temperature 98.6 F 09/29/22 11:39 (units unknown) (unknown) (unknown) (no date) (unknown) (unknown) Temperature 98.6 F (units unknown) (unknown) (unknown) (no date) (unknown) (unknown) This is a 72 year female presents to the emergency department via EMS with (units unknown) (unknown) (unknown) (no date) (unknown) (unknown) Time Seen by Provide r: 09/29/22 12:55 (units unknown) (unknown) (unknown) (no date) (unknown) (unknown) Total Bilirubin 0.4 (0.2-1.3) mg/dL (units unknown) (unknown) (unknown) (no date) (unknown) (unknown) Total Protein 6.4 (6.3-8.2) g/dL (units unknown) (unknown) (unknown) (no date) (unknown) (unknown) Vital Signs - 8 hr (units unknown) (unknown) (unknown) (no date) (unknown) (unknown) Vital Signs (units unknown) (unknown) (unknown) (no date) (unknown) (unknown) Vital signs: (units unknown) (unknown) (unknown) (no date) (unknown) (unknown) WBC 8.0 (4.5-11.0) X103/uL (units unknown) (unknown) (unknown) (no date) (unknown) (unknown) XR hip w pel if done LT 2V Stat (units unknown) (unknown) (unknown) (no date) (unknown) (unknown) XRay Report (units unknown) (unknown) (unknown) (no date) (unknown) (unknown) Maria Teresa Larsen PA-C [Primary Care Provider] (units unknown) (unknown) (unknown) (no date) (unknown) (unknown) [Embedded Image Not Available] (units unknown) (unknown) (unknown) (no date) (unknown) (unknown) acetaminophen 325 mg Tablet (units unknown) (unknown) (unknown) (no date) (unknown) (unknown) acetaminophen 325 mg tablet 650 mg PO Q6H PRN fever or pain 09/15/22 (units unknown) (unknown) (unknown) (no date) (unknown) (unknown) alcohol intake frequency: holidays/special occasions only (units unknown) (unknown) (unknown) (no date) (unknown) (unknown) alcohol intake: current (units unknown) (unknown) (unknown) (no date) (unknown) (unknown) allergies (units unknown) (unknown) (unknown) (no date) (unknown) (unknown) and below (units unknown) (unknown) (unknown) (no date) (unknown) (unknown) any numbness. Megha del toro states that today she was standing with her walker, (units unknown) (unknown) (unknown) (no date) (unknown) (unknown) aspirin 81 mg Tablet,Delayed Release (Dr/Ec) (units unknown) (unknown) (unknown) (no date) (unknown) (unknown) aspirin 81 mg tablet,delayed 81 mg PO BID 6 weeks #84 tabs 09/15/22 (units unknown) (unknown) (unknown) (no date) (unknown) (unknown) aspirin-acetaminophe n- caffeine 250 1 - 2 tab PO BID 08/13/22 09/27/22 (units unknown) (unknown) (unknown) (no date) (unknown) (unknown) atorvastatin 20 mg Tablet (units unknown) (unknown) (unknown) (no date) (unknown) (unknown) atorvastatin 20 mg tablet 20 mg PO BEDTIME 08/13/22 09/27/22 (units unknown) (unknown) (unknown) (no date) (unknown) (unknown) attempts with tracti on and none of them worked. She was discharged from the (units unknown) (unknown) (unknown) (no date) (unknown) (unknown) bicarbonate 1.1 gram capsule (units unknown) (unknown) (unknown) (no date) (unknown) (unknown) caps (units unknown) (unknown) (unknown) (no date) (unknown) (unknown) causing her to fall but she denies hitting her head. Her states that he (units unknown) (unknown) (unknown) (no date) (unknown) (unknown) cetirizine 10 mg tablet (Zyrtec) 10 mg PO DAILY PRN Seasonal 08/13/22 09/27/22 (units unknown) (unknown) (unknown) (no date) (unknown) (unknown) cetirizine [Zyrtec] 10 mg Tablet (units unknown) (unknown) (unknown) (no date) (unknown) (unknown) concern of a left hi p dislocation status post hip dislocation 2 days ago. (units unknown) (unknown) (unknown) (no date) (unknown) (unknown) denies any sensation changes, she can wiggle her toes and her foot and denies (units unknown) (unknown) (unknown) (no date) (unknown) (unknown) dislocated. (units unknown) (unknown) (unknown) (no date) (unknown) (unknown) dislocation of hip (units unknown) (unknown) (unknown) (no date) (unknown) (unknown) dislocation. She had pain down her leg and states it feels similar today. She (units unknown) (unknown) (unknown) (no date) (unknown) (unknown) distress, well groomed, afebrile (units unknown) (unknown) (unknown) (no date) (unknown) (unknown) docusate sodium 100 mg Capsule (units unknown) (unknown) (unknown) (no date) (unknown) (unknown) docusate sodium 100 mg capsule 100 mg PO BID PRN constipation #30 09/15/22 (units unknown) (unknown) (unknown) (no date) (unknown) (unknown) escitalopram oxalate 20 mg Tablet (units unknown) (unknown) (unknown) (no date) (unknown) (unknown) escitalopram oxalate 20 mg tablet 20 mg PO DAILY 08/13/22 09/27/22 (units unknown) (unknown) (unknown) (no date) (unknown) (unknown) evidence of pelvic fracture (units unknown) (unknown) (unknown) (no date) (unknown) (unknown) fracture (units unknown) (unknown) (unknown) (no date) (unknown) (unknown) helped her. She has not been able to move her left knee or left hip at all. (units unknown) (unknown) (unknown) (no date) (unknown) (unknown) her pain was quite severe, requiring a muscle relaxer, Dilaudid and morphine, (units unknown) (unknown) (unknown) (no date) (unknown) (unknown) hip. Pending radiology's interpretation. Will contact Dr. Aviles for (units unknown) (unknown) (unknown) (no date) (unknown) (unknown) hospital today. Stat es this happened at 09:00 this morning. She states that (units unknown) (unknown) (unknown) (no date) (unknown) (unknown) household members: spouse (units unknown) (unknown) (unknown) (no date) (unknown) (unknown) ibuprofen 400 mg Tablet (units unknown) (unknown) (unknown) (no date) (unknown) (unknown) ibuprofen 400 mg tablet 400 mg PO Q4H PRN 09/15/22 (units unknown) (unknown) (unknown) (no date) (unknown) (unknown) mg-250 mg-65 mg tabl et (Excedrin (units unknown) (unknown) (unknown) (no date) (unknown) (unknown) omeprazole 20 mg-sodium 1 cap PO DAILY PRN GI Upset 08/13/22 09/27/22 (units unknown) (unknown) (unknown) (no date) (unknown) (unknown) omeprazole-sodium bicarbonate [Zegerid] 20-1.1 mg-gram Capsule (units unknown) (unknown) (unknown) (no date) (unknown) (unknown) pain going down her leg, no ecchymosis (units unknown) (unknown) (unknown) (no date) (unknown) (unknown) reduction as patient required complicated reduction in the OR 2 days ago. (units unknown) (unknown) (unknown) (no date) (unknown) (unknown) refill, warm to touc h, no rotation, equivocal length when compared to the right, (units unknown) (unknown) (unknown) (no date) (unknown) (unknown) release (units unknown) (unknown) (unknown) (no date) (unknown) (unknown) solifenacin 10 mg tablet (Vesicare) 10 mg PO DAILY 08/13/22 09/27/22 (units unknown) (unknown) (unknown) (no date) (unknown) (unknown) solifenacin [Vesicar e] 10 mg Tablet (units unknown) (unknown) (unknown) (no date) (unknown) (unknown) states that she turn ed her head to the right and felt a pop in her left hip (units unknown) (unknown) (unknown) (no date) (unknown) (unknown) to: Anterior hip dislocation, failure of left hip arthroplasty, associated (units unknown) (unknown) (unknown) (no date) (unknown) (unknown) unremarkable.? No (units unknown) (unknown) (unknown) (no date) (unknown) (unknown) well as prior record s if available. Pertinent records include: (units unknown) (unknown) Result panel 1323 (unknown) (no date) (unknown) (unknown) (no value) (units unknown) (unknown) (unknown) (no date) (unknown) (unknown) #90 tabs (units unknown) (unknown) (unknown) (no date) (unknown) (unknown) (Zegerid) (units unknown) (unknown) (unknown) (no date) (unknown) (unknown) 09/14/[address] Annika River. Patient came into the emergency department on (units unknown) (unknown) (unknown) (no date) (unknown) (unknown) 09/27/2022 after a sitting to standing complication causing a left hip (units unknown) (unknown) (unknown) (no date) (unknown) (unknown) 09/29/22 09/29/22 09/29/22 Range/Units (units unknown) (unknown) (unknown) (no date) (unknown) (unknown) 09/29/22 11:44 (units unknown) (unknown) (unknown) (no date) (unknown) (unknown) 09/29/22 12:25 (units unknown) (unknown) (unknown) (no date) (unknown) (unknown) 09/29/22 12:47 (units unknown) (unknown) (unknown) (no date) (unknown) (unknown) 09/29/22 (units unknown) (unknown) (unknown) (no date) (unknown) (unknown) 0RF (units unknown) (unknown) (unknown) (no date) (unknown) (unknown) 1 - 2 tab PO BID (units unknown) (unknown) (unknown) (no date) (unknown) (unknown) 1 cap PO DAILY PRN (Reason: GI Upset) (units unknown) (unknown) (unknown) (no date) (unknown) (unknown) 10 mg PO DAILY PRN (Reason: Seasonal allergies) (units unknown) (unknown) (unknown) (no date) (unknown) (unknown) 10 mg PO DAILY (units unknown) (unknown) (unknown) (no date) (unknown) (unknown) 100 mg PO BID PRN (Reason: constipation) Qty: 30 0RF (units unknown) (unknown) (unknown) (no date) (unknown) (unknown) 11:39 (units unknown) (unknown) (unknown) (no date) (unknown) (unknown) [facility] (units unknown) (unknown) (unknown) (no date) (unknown) (unknown) 12:25 12:25 12:47 (units unknown) (unknown) (unknown) (no date) (unknown) (unknown) 20 mg PO BEDTIME (units unknown) (unknown) (unknown) (no date) (unknown) (unknown) 20 mg PO DAILY (units unknown) (unknown) (unknown) (no date) (unknown) (unknown) 3151 (units unknown) (unknown) (unknown) (no date) (unknown) (unknown) 400 mg PO Q4H MDD Ma x 2400 mg per day PRN (Reason: Pain/inflammation) Qty: 90 (units unknown) (unknown) (unknown) (no date) (unknown) (unknown) 650 mg PO Q6H MDD Ma x 3000 mg per day PRN (Reason: fever or pain) Qty: 90 0RF (units unknown) (unknown) (unknown) (no date) (unknown) (unknown) 81 mg PO BID 42 Days Qty: 84 0RF (units unknown) (unknown) (unknown) (no date) (unknown) (unknown) ? (units unknown) (unknown) (unknown) (no date) (unknown) (unknown) ALT 21 (<35) IU/L (units unknown) (unknown) (unknown) (no date) (unknown) (unknown) AST 37 H (14-36) IU/L (units unknown) (unknown) (unknown) (no date) (unknown) (unknown) Accession Number: [id number] ?? (units unknown) (unknown) (unknown) (no date) (unknown) (unknown) Acct:[id number] (units unknown) (unknown) (unknown) (no date) (unknown) (unknown) Age/Sex: 72 / F (units unknown) (unknown) (unknown) (no date) (unknown) (unknown) Albumin 3.7 (3.5-5.0 ) g/dL (units unknown) (unknown) (unknown) (no date) (unknown) (unknown) Albumin/Globulin Rat io 1.4 (1.0-2.8) (units unknown) (unknown) (unknown) (no date) (unknown) (unknown) Alkaline Phosphatase 89 (38-126) U/L (units unknown) (unknown) (unknown) (no date) (unknown) (unknown) Allergies (units unknown) (unknown) (unknown) (no date) (unknown) (unknown) Allergy/AdvReac Type Severity Reaction Status Date / Time (units unknown) (unknown) (unknown) (no date) (unknown) (unknown) [place] [address] (units unknown) (unknown) (unknown) (no date) (unknown) (unknown) Approved by: Parish Demarco M.D. on 09/29/2022 at 12:15? (units unknown) (unknown) (unknown) (no date) (unknown) (unknown) BUN 15 (7-17) mg/dL (units unknown) (unknown) (unknown) (no date) (unknown) (unknown) BUN/Creatinine Ratio 13.2 (6-22) (units unknown) (unknown) (unknown) (no date) (unknown) (unknown) Baso # (Auto) 0 (0-100) /uL (units unknown) (unknown) (unknown) (no date) (unknown) (unknown) Baso % (Auto) 0.6 (0-2) % (units unknown) (unknown) (unknown) (no date) (unknown) (unknown) Blood Pressure 175/7 6 H 09/29/22 11:39 (units unknown) (unknown) (unknown) (no date) (unknown) (unknown) Blood Pressure 175/7 6 H (units unknown) (unknown) (unknown) (no date) (unknown) (unknown) Bones:? Anteriorly dislocated left hip prosthesis noted.? Right hip (units unknown) (unknown) (unknown) (no date) (unknown) (unknown) COMPARISON:? [facility], CR, XR HIP W PEL IF DONE LT 2V, 09/27/2022, 19:35. (units unknown) (unknown) (unknown) (no date) (unknown) (unknown) COVID19 -Nasal RAPID Stat (units unknown) (unknown) (unknown) (no date) (unknown) (unknown) CV: regular rate and rhythm, warm extremities (units unknown) (unknown) (unknown) (no date) (unknown) (unknown) Calcium 8.8 (8.4-10. 2) mg/dL (units unknown) (unknown) (unknown) (no date) (unknown) (unknown) Carbon Dioxide 29 (22-32) mmol/L (units unknown) (unknown) (unknown) (no date) (unknown) (unknown) Chief Complaint: Extremity Injury, Lower (units unknown) (unknown) (unknown) (no date) (unknown) (unknown) Chief Complaint: Lef t hip pain with pop, concern for dislocation (units unknown) (unknown) (unknown) (no date) (unknown) (unknown) Chloride 105 (98-107 ) mmol/L (units unknown) (unknown) (unknown) (no date) (unknown) (unknown) Clinical Impression: (units unknown) (unknown) (unknown) (no date) (unknown) (unknown) Complete Blood Count AUTO DIFF Stat (units unknown) (unknown) (unknown) (no date) (unknown) (unknown) Comprehensive Metabolic Panel Stat (units unknown) (unknown) (unknown) (no date) (unknown) (unknown) Course of care: I sa w the patient and she does appear to have a dislocated left (units unknown) (unknown) (unknown) (no date) (unknown) (unknown) Course (units unknown) (unknown) (unknown) (no date) (unknown) (unknown) Creatinine 1.14 H (0.52-1.04) mg/dL (units unknown) (unknown) (unknown) (no date) (unknown) (unknown) : 1950 Acct:[id number] (units unknown) (unknown) (unknown) (no date) (unknown) (unknown) : 1950 (units unknown) (unknown) (unknown) (no date) (unknown) (unknown) Date of Service: 09/29/22 (units unknown) (unknown) (unknown) (no date) (unknown) (unknown) Departure (units unknown) (unknown) (unknown) (no date) (unknown) (unknown) Depression (units unknown) (unknown) (unknown) (no date) (unknown) (unknown) Diazepam (Diazepam 1 0 Mg/2 Ml Syringe) 2 mg IV NOW ONE (units unknown) (unknown) (unknown) (no date) (unknown) (unknown) Discharge Plan (units unknown) (unknown) (unknown) (no date) (unknown) (unknown) Discontinued Medications (units unknown) (unknown) (unknown) (no date) (unknown) (unknown) Dislocation, hip closed, Failure of left total hip arthroplasty with (units unknown) (unknown) (unknown) (no date) (unknown) (unknown) Diverticulitis (units unknown) (unknown) (unknown) (no date) (unknown) (unknown) Documented By: RL (units unknown) (unknown) (unknown) (no date) (unknown) (unknown) ED Orders (units unknown) (unknown) (unknown) (no date) (unknown) (unknown) ER Physician: GregoriowKelley (units unknown) (unknown) (unknown) (no date) (unknown) (unknown) Emergency Report (units unknown) (unknown) (unknown) (no date) (unknown) (unknown) Eos # (Auto) 200 (0-450) /uL (units unknown) (unknown) (unknown) (no date) (unknown) (unknown) Eos % (Auto) 2.7 (2- 4) % (units unknown) (unknown) (unknown) (no date) (unknown) (unknown) Estimated GFR 51 L (>60) mL/min (units unknown) (unknown) (unknown) (no date) (unknown) (unknown) Exam Narrative: (units unknown) (unknown) (unknown) (no date) (unknown) (unknown) Exam (units unknown) (unknown) (unknown) (no date) (unknown) (unknown) Excedrin Extra Strength 250-250-65 mg Tablet (units unknown) (unknown) (unknown) (no date) (unknown) (unknown) Extra Strength) (units unknown) (unknown) (unknown) (no date) (unknown) (unknown) FINDINGS:? (units unknown) (unknown) (unknown) (no date) (unknown) (unknown) GERD (gastroesophage al reflux disease) (units unknown) (unknown) (unknown) (no date) (unknown) (unknown) GI: abdomen soft, nondistended, without CVA tenderness bilaterally. (units unknown) (unknown) (unknown) (no date) (unknown) (unknown) General (units unknown) (unknown) (unknown) (no date) (unknown) (unknown) General: Pleasant, lying on gurney, complaining of pain but is not in acute (units unknown) (unknown) (unknown) (no date) (unknown) (unknown) Globulin 2.7 (1.7-4. 1) g/dL (units unknown) (unknown) (unknown) (no date) (unknown) (unknown) Glucose 106 (80-110) mg/dL (units unknown) (unknown) (unknown) (no date) (unknown) (unknown) HEENT: symmetrical facial expressions, moist mucous membranes (units unknown) (unknown) (unknown) (no date) (unknown) (unknown) HLD (hyperlipidemia) (units unknown) (unknown) (unknown) (no date) (unknown) (unknown) HPI - Extremity Inju ry (Lower) (units unknown) (unknown) (unknown) (no date) (unknown) (unknown) HPI Narrative: (units unknown) (unknown) (unknown) (no date) (unknown) (unknown) Hct 31.1 L (36-46) % (units unknown) (unknown) (unknown) (no date) (unknown) (unknown) Hearing impaired (units unknown) (unknown) (unknown) (no date) (unknown) (unknown) Hgb 10.6 L (12.0-16. 0) g/dL (units unknown) (unknown) (unknown) (no date) (unknown) (unknown) Hip Xray: (units unknown) (unknown) (unknown) (no date) (unknown) (unknown) History of Present Illness (units unknown) (unknown) (unknown) (no date) (unknown) (unknown) History of bladder surgery (units unknown) (unknown) (unknown) (no date) (unknown) (unknown) History of total lef t knee replacement (units unknown) (unknown) (unknown) (no date) (unknown) (unknown) History of total rig ht knee replacement (units unknown) (unknown) (unknown) (no date) (unknown) (unknown) Home Medications (units unknown) (unknown) (unknown) (no date) (unknown) (unknown) Hx of left breast biopsy (units unknown) (unknown) (unknown) (no date) (unknown) (unknown) Hx of right breast biopsy (units unknown) (unknown) (unknown) (no date) (unknown) (unknown) Hx of tonsillectomy (units unknown) (unknown) (unknown) (no date) (unknown) (unknown) Hydromorphone HCl (Hydromorphone 0.5 Mg Inj) 0.5 mg IV NOW ONE (units unknown) (unknown) (unknown) (no date) (unknown) (unknown) I have independently reviewed the patient's vital signs and nursing notes as (units unknown) (unknown) (unknown) (no date) (unknown) (unknown) IMPRESSION:? Anterio r dislocation, left total hip arthroplasty (units unknown) (unknown) (unknown) (no date) (unknown) (unknown) INDICATIONS:? ? dislocation (units unknown) (unknown) (unknown) (no date) (unknown) (unknown) Imaging Data (units unknown) (unknown) (unknown) (no date) (unknown) (unknown) Initial Vital Signs (units unknown) (unknown) (unknown) (no date) (unknown) (unknown) Initial Vital Signs: (units unknown) (unknown) (unknown) (no date) (unknown) (unknown) [address] [address] (units unknown) (unknown) (unknown) (no date) (unknown) (unknown) [facility] (units unknown) (unknown) (unknown) (no date) (unknown) (unknown) Lab Data (units unknown) (unknown) (unknown) (no date) (unknown) (unknown) Lab Results (units unknown) (unknown) (unknown) (no date) (unknown) (unknown) Labs: (units unknown) (unknown) (unknown) (no date) (unknown) (unknown) Last Admin: 09/29/22 13:23 Dose: 0.5 mg (units unknown) (unknown) (unknown) (no date) (unknown) (unknown) Last Admin: 09/29/22 13:23 Dose: 2 mg (units unknown) (unknown) (unknown) (no date) (unknown) (unknown) Lipase 44 (23-300) U/L (units unknown) (unknown) (unknown) (no date) (unknown) (unknown) Lipase Stat (units unknown) (unknown) (unknown) (no date) (unknown) (unknown) Loc: ED (units unknown) (unknown) (unknown) (no date) (unknown) (unknown) Lymph # (Auto) 1100 (1062-8650) /uL (units unknown) (unknown) (unknown) (no date) (unknown) (unknown) Lymph % (Auto) 13.3 L (25-40) % (units unknown) (unknown) (unknown) (no date) (unknown) (unknown) MCH 29.9 (26-34) PG (units unknown) (unknown) (unknown) (no date) (unknown) (unknown) MCHC 34.0 (30-36) % (units unknown) (unknown) (unknown) (no date) (unknown) (unknown) MCV 87.9 (80-100) fL (units unknown) (unknown) (unknown) (no date) (unknown) (unknown) MDM - Extremity Inju ry (Lower) (units unknown) (unknown) (unknown) (no date) (unknown) (unknown) MDM Narrative (units unknown) (unknown) (unknown) (no date) (unknown) (unknown) MR#: [id number] (units unknown) (unknown) (unknown) (no date) (unknown) (unknown) MSK: moves all extremities, no weakness, normal tone, left foot with brisk cap (units unknown) (unknown) (unknown) (no date) (unknown) (unknown) Medical History (units unknown) (unknown) (unknown) (no date) (unknown) (unknown) Medical decision making narrative: (units unknown) (unknown) (unknown) (no date) (unknown) (unknown) Medication Instructions Recorded Confirmed (units unknown) (unknown) (unknown) (no date) (unknown) (unknown) Medication Instructions Recorded (units unknown) (unknown) (unknown) (no date) (unknown) (unknown) Mode of arrival: EMS (units unknown) (unknown) (unknown) (no date) (unknown) (unknown) [place] # (Auto) 400 (0-900) /uL (units unknown) (unknown) (unknown) (no date) (unknown) (unknown) [place] % (Auto) 5.4 (3-14) % (units unknown) (unknown) (unknown) (no date) (unknown) (unknown) Multiple etiologies for patient's symptoms considered including, but not limited (units unknown) (unknown) (unknown) (no date) (unknown) (unknown) My Imaging interpretation: Patient's left hip appears to be anteriorly (units unknown) (unknown) (unknown) (no date) (unknown) (unknown) Narrative (units unknown) (unknown) (unknown) (no date) (unknown) (unknown) Neuro: clear speech and normal cognition, A+O x3, GCS 15, no sensation deficits (units unknown) (unknown) (unknown) (no date) (unknown) (unknown) Neut # (Auto) 6300 (6824-4279) /uL (units unknown) (unknown) (unknown) (no date) (unknown) (unknown) Neut % (Auto) 78.0 H (50-75) % (units unknown) (unknown) (unknown) (no date) (unknown) (unknown) No Action (units unknown) (unknown) (unknown) (no date) (unknown) (unknown) No Known Drug Allergies Allergy Verified 09/29/22 12:10 (units unknown) (unknown) (unknown) (no date) (unknown) (unknown) Ordered: (units unknown) (unknown) (unknown) (no date) (unknown) (unknown) Ordering Provider: Magdaleno Kingston MD (units unknown) (unknown) (unknown) (no date) (unknown) (unknown) Orders (units unknown) (unknown) (unknown) (no date) (unknown) (unknown) Osteoarthritis (units unknown) (unknown) (unknown) (no date) (unknown) (unknown) Oxygen Delivery Meth od Room Air 09/29/22 11:39 (units unknown) (unknown) (unknown) (no date) (unknown) (unknown) Oxygen Delivery Meth od Room Air (units unknown) (unknown) (unknown) (no date) (unknown) (unknown) PROCEDURE:? XR HIP W PEL IF DONE LT 2V (units unknown) (unknown) (unknown) (no date) (unknown) (unknown) PT and DP pulses are 2+, palpation left hip appears to be anterior dislocation. (units unknown) (unknown) (unknown) (no date) (unknown) (unknown) Paging Dr. Aviles [phone] (units unknown) (unknown) (unknown) (no date) (unknown) (unknown) Pain/inflammation #9 0 tabs (units unknown) (unknown) (unknown) (no date) (unknown) (unknown) Patient Disposition: Home (units unknown) (unknown) (unknown) (no date) (unknown) (unknown) Patient History (units unknown) (unknown) (unknown) (no date) (unknown) (unknown) Patient has a histor y of dyslipidemia, anxiety, and left hip arthroplasty on (units unknown) (unknown) (unknown) (no date) (unknown) (unknown) Patient has not been able to move her hip or left knee at all. Complaining of (units unknown) (unknown) (unknown) (no date) (unknown) (unknown) Patient: Barbara Garcia MR#: [id number] (units unknown) (unknown) (unknown) (no date) (unknown) (unknown) Patient: Selene Garcia (units unknown) (unknown) (unknown) (no date) (unknown) (unknown) Plt Count 315 (150-400) X103/uL (units unknown) (unknown) (unknown) (no date) (unknown) (unknown) Potassium 3.5 (3.4-5.1) mmol/L (units unknown) (unknown) (unknown) (no date) (unknown) (unknown) Prescriptions: (units unknown) (unknown) (unknown) (no date) (unknown) (unknown) Prevent blood clots (units unknown) (unknown) (unknown) (no date) (unknown) (unknown) Previous Rx's (units unknown) (unknown) (unknown) (no date) (unknown) (unknown) Procedure: XR hip w pel if done LT 2V (units unknown) (unknown) (unknown) (no date) (unknown) (unknown) Pulse Oximetry 100 09/29/22 11:39 (units unknown) (unknown) (unknown) (no date) (unknown) (unknown) Pulse Oximetry 100 (units unknown) (unknown) (unknown) (no date) (unknown) (unknown) Pulse Rate 62 11:39 (units unknown) (unknown) (unknown) (no date) (unknown) (unknown) Pulse Rate 62 (units unknown) (unknown) (unknown) (no date) (unknown) (unknown) Questions are addressed and there is agreement with the plan and for follow-up. (units unknown) (unknown) (unknown) (no date) (unknown) (unknown) RBC 3.53 L (4.0-5.2) X106/uL (units unknown) (unknown) (unknown) (no date) (unknown) (unknown) RDW 14.4 (11.6-14.8) % (units unknown) (unknown) (unknown) (no date) (unknown) (unknown) ROS Unobtainable: Al l systems reviewed + are unremarkable except as noted in HPI (units unknown) (unknown) (unknown) (no date) (unknown) (unknown) Radiologist's Impression: (units unknown) (unknown) (unknown) (no date) (unknown) (unknown) Referrals: (units unknown) (unknown) (unknown) (no date) (unknown) (unknown) Related Data (units unknown) (unknown) (unknown) (no date) (unknown) (unknown) Respiratory Rate 18 09/29/22 11:39 (units unknown) (unknown) (unknown) (no date) (unknown) (unknown) Respiratory Rate 18 (units unknown) (unknown) (unknown) (no date) (unknown) (unknown) Respiratory: normal work of breathing, without tachypnea or hypoxia. (units unknown) (unknown) (unknown) (no date) (unknown) (unknown) Review of Systems (units unknown) (unknown) (unknown) (no date) (unknown) (unknown) Reviewed vitals sign s and nursing notes. (units unknown) (unknown) (unknown) (no date) (unknown) (unknown) Rx Instructions: (units unknown) (unknown) (unknown) (no date) (unknown) (unknown) SARS-CoV-2 (PCR) Negative (Negative) (units unknown) (unknown) (unknown) (no date) (unknown) (unknown) Seasonal allergies (units unknown) (unknown) (unknown) (no date) (unknown) (unknown) She required reducti on of her left hip with Dr. Roberts. There were several (units unknown) (unknown) (unknown) (no date) (unknown) (unknown) Signed By: (units unknown) (unknown) (unknown) (no date) (unknown) (unknown) Signed (units unknown) (unknown) (unknown) (no date) (unknown) (unknown) Skin: brisk capillar y refill, without rash or wound (units unknown) (unknown) (unknown) (no date) (unknown) (unknown) Smoking Status: Carmencita rubin smoker (units unknown) (unknown) (unknown) (no date) (unknown) (unknown) Social History (units unknown) (unknown) (unknown) (no date) (unknown) (unknown) Social consideration s that may affect disposition: none (units unknown) (unknown) (unknown) (no date) (unknown) (unknown) Sodium 140 (137-145) mmol/L (units unknown) (unknown) (unknown) (no date) (unknown) (unknown) Soft tissues:? No suspicious soft tissue calcifications or masses.? (units unknown) (unknown) (unknown) (no date) (unknown) (unknown) Source: patient and EMS (units unknown) (unknown) (unknown) (no date) (unknown) (unknown) Stand Alone Forms: Patient Portal/API (units unknown) (unknown) (unknown) (no date) (unknown) (unknown) Stated Complaint: L Hip Dislocated t-2 days (units unknown) (unknown) (unknown) (no date) (unknown) (unknown) Stop: 09/29/22 13:01 (units unknown) (unknown) (unknown) (no date) (unknown) (unknown) Substance Use Type: does not use (units unknown) (unknown) (unknown) (no date) (unknown) (unknown) Surgical History (units unknown) (unknown) (unknown) (no date) (unknown) (unknown) TECHNIQUE:? 2 views of the hip were acquired.? (units unknown) (unknown) (unknown) (no date) (unknown) (unknown) Temperature 98.6 F 09/29/22 11:39 (units unknown) (unknown) (unknown) (no date) (unknown) (unknown) Temperature 98.6 F (units unknown) (unknown) (unknown) (no date) (unknown) (unknown) This is a 72 year female presents to the emergency department via EMS with (units unknown) (unknown) (unknown) (no date) (unknown) (unknown) Time Seen by Nicole r: 09/29/22 12:55 (units unknown) (unknown) (unknown) (no date) (unknown) (unknown) Total Bilirubin 0.4 (0.2-1.3) mg/dL (units unknown) (unknown) (unknown) (no date) (unknown) (unknown) Total Protein 6.4 (6.3-8.2) g/dL (units unknown) (unknown) (unknown) (no date) (unknown) (unknown) Vital Signs - 8 hr (units unknown) (unknown) (unknown) (no date) (unknown) (unknown) Vital Signs (units unknown) (unknown) (unknown) (no date) (unknown) (unknown) Vital signs: (units unknown) (unknown) (unknown) (no date) (unknown) (unknown) WBC 8.0 (4.5-11.0) X103/uL (units unknown) (unknown) (unknown) (no date) (unknown) (unknown) XR hip w pel if done LT 2V Stat (units unknown) (unknown) (unknown) (no date) (unknown) (unknown) XRay Report (units unknown) (unknown) (unknown) (no date) (unknown) (unknown) Maria Teresa Larsen PA-C [Primary Care Provider] (units unknown) (unknown) (unknown) (no date) (unknown) (unknown) [Embedded Image Not Available] (units unknown) (unknown) (unknown) (no date) (unknown) (unknown) acetaminophen 325 mg Tablet (units unknown) (unknown) (unknown) (no date) (unknown) (unknown) acetaminophen 325 mg tablet 650 mg PO Q6H PRN fever or pain 09/15/22 (units unknown) (unknown) (unknown) (no date) (unknown) (unknown) alcohol intake frequency: holidays/special occasions only (units unknown) (unknown) (unknown) (no date) (unknown) (unknown) alcohol intake: current (units unknown) (unknown) (unknown) (no date) (unknown) (unknown) allergies (units unknown) (unknown) (unknown) (no date) (unknown) (unknown) and below (units unknown) (unknown) (unknown) (no date) (unknown) (unknown) any numbness. Megha t states that today she was standing with her walker, (units unknown) (unknown) (unknown) (no date) (unknown) (unknown) aspirin 81 mg Tablet,Delayed Release (Dr/Ec) (units unknown) (unknown) (unknown) (no date) (unknown) (unknown) aspirin 81 mg tablet,delayed 81 mg PO BID 6 weeks #84 tabs 09/15/22 (units unknown) (unknown) (unknown) (no date) (unknown) (unknown) aspirin-acetaminophe n- caffeine 250 1 - 2 tab PO BID 08/13/22 09/27/22 (units unknown) (unknown) (unknown) (no date) (unknown) (unknown) atorvastatin 20 mg Tablet (units unknown) (unknown) (unknown) (no date) (unknown) (unknown) atorvastatin 20 mg tablet 20 mg PO BEDTIME 08/13/22 09/27/22 (units unknown) (unknown) (unknown) (no date) (unknown) (unknown) attempts with tracti on and none of them worked. She was discharged from the (units unknown) (unknown) (unknown) (no date) (unknown) (unknown) bicarbonate 1.1 gram capsule (units unknown) (unknown) (unknown) (no date) (unknown) (unknown) caps (units unknown) (unknown) (unknown) (no date) (unknown) (unknown) causing her to fall but she denies hitting her head. Her states that he (units unknown) (unknown) (unknown) (no date) (unknown) (unknown) cetirizine 10 mg tablet (Zyrtec) 10 mg PO DAILY PRN Seasonal 08/13/22 09/27/22 (units unknown) (unknown) (unknown) (no date) (unknown) (unknown) cetirizine [Zyrtec] 10 mg Tablet (units unknown) (unknown) (unknown) (no date) (unknown) (unknown) concern of a left hi p dislocation status post hip dislocation 2 days ago. (units unknown) (unknown) (unknown) (no date) (unknown) (unknown) denies any sensation changes, she can wiggle her toes and her foot and denies (units unknown) (unknown) (unknown) (no date) (unknown) (unknown) dislocated. (units unknown) (unknown) (unknown) (no date) (unknown) (unknown) dislocation of hip (units unknown) (unknown) (unknown) (no date) (unknown) (unknown) dislocation. She had pain down her leg and states it feels similar today. She (units unknown) (unknown) (unknown) (no date) (unknown) (unknown) distress, well groomed, afebrile (units unknown) (unknown) (unknown) (no date) (unknown) (unknown) docusate sodium 100 mg Capsule (units unknown) (unknown) (unknown) (no date) (unknown) (unknown) docusate sodium 100 mg capsule 100 mg PO BID PRN constipation #30 09/15/22 (units unknown) (unknown) (unknown) (no date) (unknown) (unknown) escitalopram oxalate 20 mg Tablet (units unknown) (unknown) (unknown) (no date) (unknown) (unknown) escitalopram oxalate 20 mg tablet 20 mg PO DAILY 08/13/22 09/27/22 (units unknown) (unknown) (unknown) (no date) (unknown) (unknown) evidence of pelvic fracture (units unknown) (unknown) (unknown) (no date) (unknown) (unknown) fracture (units unknown) (unknown) (unknown) (no date) (unknown) (unknown) helped her. She has not been able to move her left knee or left hip at all. (units unknown) (unknown) (unknown) (no date) (unknown) (unknown) hip. Pending radiology's interpretation. Will contact Dr. Aviles for (units unknown) (unknown) (unknown) (no date) (unknown) (unknown) hospital today. Stat es this happened at 09:00 this morning. She states that her (units unknown) (unknown) (unknown) (no date) (unknown) (unknown) household members: spouse (units unknown) (unknown) (unknown) (no date) (unknown) (unknown) ibuprofen 400 mg Tablet (units unknown) (unknown) (unknown) (no date) (unknown) (unknown) ibuprofen 400 mg tablet 400 mg PO Q4H PRN 09/15/22 (units unknown) (unknown) (unknown) (no date) (unknown) (unknown) mg-250 mg-65 mg tabl et (Excedrin (units unknown) (unknown) (unknown) (no date) (unknown) (unknown) omeprazole 20 mg-sodium 1 cap PO DAILY PRN GI Upset 08/13/22 09/27/22 (units unknown) (unknown) (unknown) (no date) (unknown) (unknown) omeprazole-sodium bicarbonate [Zegerid] 20-1.1 mg-gram Capsule (units unknown) (unknown) (unknown) (no date) (unknown) (unknown) pain going down her leg, no ecchymosis (units unknown) (unknown) (unknown) (no date) (unknown) (unknown) pain was quite sever e, requiring a muscle relaxer, Dilaudid and morphine, (units unknown) (unknown) (unknown) (no date) (unknown) (unknown) reduction as patient required complicated reduction in the OR 2 days ago. (units unknown) (unknown) (unknown) (no date) (unknown) (unknown) refill, warm to touc h, no rotation, equivocal length when compared to the right, (units unknown) (unknown) (unknown) (no date) (unknown) (unknown) release (units unknown) (unknown) (unknown) (no date) (unknown) (unknown) solifenacin 10 mg tablet (Vesicare) 10 mg PO DAILY 08/13/22 09/27/22 (units unknown) (unknown) (unknown) (no date) (unknown) (unknown) solifenacin [Vesicar e] 10 mg Tablet (units unknown) (unknown) (unknown) (no date) (unknown) (unknown) states that she turn ed her head to the right and felt a pop in her left hip (units unknown) (unknown) (unknown) (no date) (unknown) (unknown) to: Anterior hip dislocation, failure of left hip arthroplasty, associated (units unknown) (unknown) (unknown) (no date) (unknown) (unknown) unremarkable.? No (units unknown) (unknown) (unknown) (no date) (unknown) (unknown) well as prior record s if available. Pertinent records include: (units unknown) (unknown) Result panel 1324 (unknown) (no date) (unknown) (unknown) (no value) (units unknown) (unknown) (unknown) (no date) (unknown) (unknown) #90 tabs (units unknown) (unknown) (unknown) (no date) (unknown) (unknown) (Zegerid) (units unknown) (unknown) (unknown) (no date) (unknown) (unknown) 09/14/[address] Annika River. Patient came into the emergency department on (units unknown) (unknown) (unknown) (no date) (unknown) (unknown) 09/27/2022 after a sitting to standing complication causing a left hip (units unknown) (unknown) (unknown) (no date) (unknown) (unknown) 09/29/22 09/29/22 09/29/22 Range/Units (units unknown) (unknown) (unknown) (no date) (unknown) (unknown) 09/29/22 11:44 (units unknown) (unknown) (unknown) (no date) (unknown) (unknown) 09/29/22 12:25 (units unknown) (unknown) (unknown) (no date) (unknown) (unknown) 09/29/22 12:47 (units unknown) (unknown) (unknown) (no date) (unknown) (unknown) 09/29/22 (units unknown) (unknown) (unknown) (no date) (unknown) (unknown) 0RF (units unknown) (unknown) (unknown) (no date) (unknown) (unknown) 1 - 2 tab PO BID (units unknown) (unknown) (unknown) (no date) (unknown) (unknown) 1 cap PO DAILY PRN (Reason: GI Upset) (units unknown) (unknown) (unknown) (no date) (unknown) (unknown) 10 mg PO DAILY PRN (Reason: Seasonal allergies) (units unknown) (unknown) (unknown) (no date) (unknown) (unknown) 10 mg PO DAILY (units unknown) (unknown) (unknown) (no date) (unknown) (unknown) 100 mg PO BID PRN (Reason: constipation) Qty: 30 0RF (units unknown) (unknown) (unknown) (no date) (unknown) (unknown) 11:39 (units unknown) (unknown) (unknown) (no date) (unknown) (unknown) [address] [place] [address] (units unknown) (unknown) (unknown) (no date) (unknown) (unknown) 12:25 12:25 12:47 (units unknown) (unknown) (unknown) (no date) (unknown) (unknown) 20 mg PO BEDTIME (units unknown) (unknown) (unknown) (no date) (unknown) (unknown) 20 mg PO DAILY (units unknown) (unknown) (unknown) (no date) (unknown) (unknown) 3151 (units unknown) (unknown) (unknown) (no date) (unknown) (unknown) 400 mg PO Q4H MDD Ma x 2400 mg per day PRN (Reason: Pain/inflammation) Qty: 90 (units unknown) (unknown) (unknown) (no date) (unknown) (unknown) 650 mg PO Q6H MDD Ma x 3000 mg per day PRN (Reason: fever or pain) Qty: 90 0RF (units unknown) (unknown) (unknown) (no date) (unknown) (unknown) 81 mg PO BID 42 Days Qty: 84 0RF (units unknown) (unknown) (unknown) (no date) (unknown) (unknown) ? (units unknown) (unknown) (unknown) (no date) (unknown) (unknown) ALT 21 (<35) IU/L (units unknown) (unknown) (unknown) (no date) (unknown) (unknown) AST 37 H (14-36) IU/L (units unknown) (unknown) (unknown) (no date) (unknown) (unknown) Accession Number: [id number] ?? (units unknown) (unknown) (unknown) (no date) (unknown) (unknown) Acct:[id number] (units unknown) (unknown) (unknown) (no date) (unknown) (unknown) Age/Sex: 72 / F (units unknown) (unknown) (unknown) (no date) (unknown) (unknown) Albumin 3.7 (3.5-5.0 ) g/dL (units unknown) (unknown) (unknown) (no date) (unknown) (unknown) Albumin/Globulin Rat io 1.4 (1.0-2.8) (units unknown) (unknown) (unknown) (no date) (unknown) (unknown) Alkaline Phosphatase 89 (38-126) U/L (units unknown) (unknown) (unknown) (no date) (unknown) (unknown) Allergies (units unknown) (unknown) (unknown) (no date) (unknown) (unknown) Allergy/AdvReac Type Severity Reaction Status Date / Time (units unknown) (unknown) (unknown) (no date) (unknown) (unknown) [place] [address] (units unknown) (unknown) (unknown) (no date) (unknown) (unknown) Approved by: Parish Demarco M.D. on 09/29/2022 at 12:15? (units unknown) (unknown) (unknown) (no date) (unknown) (unknown) BUN 15 (7-17) mg/dL (units unknown) (unknown) (unknown) (no date) (unknown) (unknown) BUN/Creatinine Ratio 13.2 (6-22) (units unknown) (unknown) (unknown) (no date) (unknown) (unknown) Baso # (Auto) 0 (0-100) /uL (units unknown) (unknown) (unknown) (no date) (unknown) (unknown) Baso % (Auto) 0.6 (0-2) % (units unknown) (unknown) (unknown) (no date) (unknown) (unknown) Blood Pressure 175/7 6 H 09/29/22 11:39 (units unknown) (unknown) (unknown) (no date) (unknown) (unknown) Blood Pressure 175/7 6 H (units unknown) (unknown) (unknown) (no date) (unknown) (unknown) Bones:? Anteriorly dislocated left hip prosthesis noted.? Right hip (units unknown) (unknown) (unknown) (no date) (unknown) (unknown) COMPARISON:[facility], CR, XR HIP W PEL IF DONE LT 2V, 09/27/2022, 19:35. (units unknown) (unknown) (unknown) (no date) (unknown) (unknown) COVID19 -Nasal RAPID Stat (units unknown) (unknown) (unknown) (no date) (unknown) (unknown) CV: regular rate and rhythm, warm extremities (units unknown) (unknown) (unknown) (no date) (unknown) (unknown) Calcium 8.8 (8.4-10. 2) mg/dL (units unknown) (unknown) (unknown) (no date) (unknown) (unknown) Carbon Dioxide 29 (22-32) mmol/L (units unknown) (unknown) (unknown) (no date) (unknown) (unknown) Chief Complaint: Extremity Injury, Lower (units unknown) (unknown) (unknown) (no date) (unknown) (unknown) Chief Complaint: Lef t hip pain with pop, concern for dislocation (units unknown) (unknown) (unknown) (no date) (unknown) (unknown) Chloride 105 (98-107 ) mmol/L (units unknown) (unknown) (unknown) (no date) (unknown) (unknown) Clinical Impression: (units unknown) (unknown) (unknown) (no date) (unknown) (unknown) Complete Blood Count AUTO DIFF Stat (units unknown) (unknown) (unknown) (no date) (unknown) (unknown) Comprehensive Metabolic Panel Stat (units unknown) (unknown) (unknown) (no date) (unknown) (unknown) Conversation with Dr Raad Aviles regarding OR for reduction of left hip anterior (units unknown) (unknown) (unknown) (no date) (unknown) (unknown) Course of care: I sa w the patient and she does appear to have a dislocated left (units unknown) (unknown) (unknown) (no date) (unknown) (unknown) Course (units unknown) (unknown) (unknown) (no date) (unknown) (unknown) Creatinine 1.14 H (0.52-1.04) mg/dL (units unknown) (unknown) (unknown) (no date) (unknown) (unknown) : 1950 Acct:[id number] (units unknown) (unknown) (unknown) (no date) (unknown) (unknown) : 1950 (units unknown) (unknown) (unknown) (no date) (unknown) (unknown) Date of Service: 09/29/22 (units unknown) (unknown) (unknown) (no date) (unknown) (unknown) Departure (units unknown) (unknown) (unknown) (no date) (unknown) (unknown) Depression (units unknown) (unknown) (unknown) (no date) (unknown) (unknown) Diazepam (Diazepam 1 0 Mg/2 Ml Syringe) 2 mg IV NOW ONE (units unknown) (unknown) (unknown) (no date) (unknown) (unknown) Discharge Plan (units unknown) (unknown) (unknown) (no date) (unknown) (unknown) Discontinued Medications (units unknown) (unknown) (unknown) (no date) (unknown) (unknown) Dislocation, hip closed, Failure of left total hip arthroplasty with (units unknown) (unknown) (unknown) (no date) (unknown) (unknown) Diverticulitis (units unknown) (unknown) (unknown) (no date) (unknown) (unknown) Documented By: RL (units unknown) (unknown) (unknown) (no date) (unknown) (unknown) ED Orders (units unknown) (unknown) (unknown) (no date) (unknown) (unknown) ER Physician: Kelley Calix (units unknown) (unknown) (unknown) (no date) (unknown) (unknown) Emergency Report (units unknown) (unknown) (unknown) (no date) (unknown) (unknown) Eos # (Auto) 200 (0-450) /uL (units unknown) (unknown) (unknown) (no date) (unknown) (unknown) Eos % (Auto) 2.7 (2- 4) % (units unknown) (unknown) (unknown) (no date) (unknown) (unknown) Estimated GFR 51 L (>60) mL/min (units unknown) (unknown) (unknown) (no date) (unknown) (unknown) Exam Narrative: (units unknown) (unknown) (unknown) (no date) (unknown) (unknown) Exam (units unknown) (unknown) (unknown) (no date) (unknown) (unknown) Excedrin Extra Strength 250-250-65 mg Tablet (units unknown) (unknown) (unknown) (no date) (unknown) (unknown) Extra Strength) (units unknown) (unknown) (unknown) (no date) (unknown) (unknown) FINDINGS:? (units unknown) (unknown) (unknown) (no date) (unknown) (unknown) GERD (gastroesophage al reflux disease) (units unknown) (unknown) (unknown) (no date) (unknown) (unknown) GI: abdomen soft, nondistended, without CVA tenderness bilaterally. (units unknown) (unknown) (unknown) (no date) (unknown) (unknown) General (units unknown) (unknown) (unknown) (no date) (unknown) (unknown) General: Pleasant, lying on gurney, complaining of pain but is not in acute (units unknown) (unknown) (unknown) (no date) (unknown) (unknown) Globulin 2.7 (1.7-4. 1) g/dL (units unknown) (unknown) (unknown) (no date) (unknown) (unknown) Glucose 106 (80-110) mg/dL (units unknown) (unknown) (unknown) (no date) (unknown) (unknown) HEENT: symmetrical facial expressions, moist mucous membranes (units unknown) (unknown) (unknown) (no date) (unknown) (unknown) HLD (hyperlipidemia) (units unknown) (unknown) (unknown) (no date) (unknown) (unknown) HPI - Extremity Inju ry (Lower) (units unknown) (unknown) (unknown) (no date) (unknown) (unknown) HPI Narrative: (units unknown) (unknown) (unknown) (no date) (unknown) (unknown) Hct 31.1 L (36-46) % (units unknown) (unknown) (unknown) (no date) (unknown) (unknown) Hearing impaired (units unknown) (unknown) (unknown) (no date) (unknown) (unknown) Hgb 10.6 L (12.0-16. 0) g/dL (units unknown) (unknown) (unknown) (no date) (unknown) (unknown) Hip Xray: (units unknown) (unknown) (unknown) (no date) (unknown) (unknown) History of Present Illness (units unknown) (unknown) (unknown) (no date) (unknown) (unknown) History of bladder surgery (units unknown) (unknown) (unknown) (no date) (unknown) (unknown) History of total lef t knee replacement (units unknown) (unknown) (unknown) (no date) (unknown) (unknown) History of total rig ht knee replacement (units unknown) (unknown) (unknown) (no date) (unknown) (unknown) Home Medications (units unknown) (unknown) (unknown) (no date) (unknown) (unknown) Hx of left breast biopsy (units unknown) (unknown) (unknown) (no date) (unknown) (unknown) Hx of right breast biopsy (units unknown) (unknown) (unknown) (no date) (unknown) (unknown) Hx of tonsillectomy (units unknown) (unknown) (unknown) (no date) (unknown) (unknown) Hydromorphone HCl (Hydromorphone 0.5 Mg Inj) 0.5 mg IV NOW ONE (units unknown) (unknown) (unknown) (no date) (unknown) (unknown) I have independently reviewed the patient's vital signs and nursing notes as (units unknown) (unknown) (unknown) (no date) (unknown) (unknown) IMPRESSION:? Anterio r dislocation, left total hip arthroplasty (units unknown) (unknown) (unknown) (no date) (unknown) (unknown) INDICATIONS:? ? dislocation (units unknown) (unknown) (unknown) (no date) (unknown) (unknown) Imaging Data (units unknown) (unknown) (unknown) (no date) (unknown) (unknown) Initial Vital Signs (units unknown) (unknown) (unknown) (no date) (unknown) (unknown) Initial Vital Signs: (units unknown) (unknown) (unknown) (no date) (unknown) (unknown) [address] [address] (units unknown) (unknown) (unknown) (no date) (unknown) (unknown) [facility] (units unknown) (unknown) (unknown) (no date) (unknown) (unknown) Lab Data (units unknown) (unknown) (unknown) (no date) (unknown) (unknown) Lab Results (units unknown) (unknown) (unknown) (no date) (unknown) (unknown) Labs: (units unknown) (unknown) (unknown) (no date) (unknown) (unknown) Last Admin: 09/29/22 13:23 Dose: 0.5 mg (units unknown) (unknown) (unknown) (no date) (unknown) (unknown) Last Admin: 09/29/22 13:23 Dose: 2 mg (units unknown) (unknown) (unknown) (no date) (unknown) (unknown) Lipase 44 (23-300) U/L (units unknown) (unknown) (unknown) (no date) (unknown) (unknown) Lipase Stat (units unknown) (unknown) (unknown) (no date) (unknown) (unknown) Loc: ED (units unknown) (unknown) (unknown) (no date) (unknown) (unknown) Lymph # (Auto) 1100 ([phone]) /uL (units unknown) (unknown) (unknown) (no date) (unknown) (unknown) Lymph % (Auto) 13.3 L (25-40) % (units unknown) (unknown) (unknown) (no date) (unknown) (unknown) MCH 29.9 (26-34) PG (units unknown) (unknown) (unknown) (no date) (unknown) (unknown) MCHC 34.0 (30-36) % (units unknown) (unknown) (unknown) (no date) (unknown) (unknown) MCV 87.9 (80-100) fL (units unknown) (unknown) (unknown) (no date) (unknown) (unknown) MDM - Extremity Inju ry (Lower) (units unknown) (unknown) (unknown) (no date) (unknown) (unknown) MDM Narrative (units unknown) (unknown) (unknown) (no date) (unknown) (unknown) MR#: [id number] (units unknown) (unknown) (unknown) (no date) (unknown) (unknown) MSK: moves all extremities, no weakness, normal tone, left foot with brisk cap (units unknown) (unknown) (unknown) (no date) (unknown) (unknown) Medical History (units unknown) (unknown) (unknown) (no date) (unknown) (unknown) Medical decision making narrative: (units unknown) (unknown) (unknown) (no date) (unknown) (unknown) Medication Instructions Recorded Confirmed (units unknown) (unknown) (unknown) (no date) (unknown) (unknown) Medication Instructions Recorded (units unknown) (unknown) (unknown) (no date) (unknown) (unknown) Mode of arrival: EMS (units unknown) (unknown) (unknown) (no date) (unknown) (unknown) [place] # (Auto) 400 (0-900) /uL (units unknown) (unknown) (unknown) (no date) (unknown) (unknown) [place] % (Auto) 5.4 (3-14) % (units unknown) (unknown) (unknown) (no date) (unknown) (unknown) Multiple etiologies for patient's symptoms considered including, but not limited (units unknown) (unknown) (unknown) (no date) (unknown) (unknown) My Imaging interpretation: Patient's left hip appears to be anteriorly (units unknown) (unknown) (unknown) (no date) (unknown) (unknown) Narrative (units unknown) (unknown) (unknown) (no date) (unknown) (unknown) Neuro: clear speech and normal cognition, A+O x3, GCS 15, no sensation deficits (units unknown) (unknown) (unknown) (no date) (unknown) (unknown) Neut # (Auto) 6300 (9227-9186) /uL (units unknown) (unknown) (unknown) (no date) (unknown) (unknown) Neut % (Auto) 78.0 H (50-75) % (units unknown) (unknown) (unknown) (no date) (unknown) (unknown) No Action (units unknown) (unknown) (unknown) (no date) (unknown) (unknown) No Known Drug Allergies Allergy Verified 09/29/22 12:10 (units unknown) (unknown) (unknown) (no date) (unknown) (unknown) Ordered: (units unknown) (unknown) (unknown) (no date) (unknown) (unknown) Ordering Provider: Magdaleno Kingston MD (units unknown) (unknown) (unknown) (no date) (unknown) (unknown) Orders (units unknown) (unknown) (unknown) (no date) (unknown) (unknown) Osteoarthritis (units unknown) (unknown) (unknown) (no date) (unknown) (unknown) Oxygen Delivery Meth od Room Air 09/29/22 11:39 (units unknown) (unknown) (unknown) (no date) (unknown) (unknown) Oxygen Delivery Meth od Room Air (units unknown) (unknown) (unknown) (no date) (unknown) (unknown) PROCEDURE:? XR HIP W PEL IF DONE LT 2V (units unknown) (unknown) (unknown) (no date) (unknown) (unknown) PT and DP pulses are 2+, palpation left hip appears to be anterior dislocation. (units unknown) (unknown) (unknown) (no date) (unknown) (unknown) Paging Dr. Aviles [phone] (units unknown) (unknown) (unknown) (no date) (unknown) (unknown) Pain/inflammation #9 0 tabs (units unknown) (unknown) (unknown) (no date) (unknown) (unknown) Patient Disposition: Home (units unknown) (unknown) (unknown) (no date) (unknown) (unknown) Patient History (units unknown) (unknown) (unknown) (no date) (unknown) (unknown) Patient has a histor y of dyslipidemia, anxiety, and left hip arthroplasty on (units unknown) (unknown) (unknown) (no date) (unknown) (unknown) Patient has not been able to move her hip or left knee at all. Complaining of (units unknown) (unknown) (unknown) (no date) (unknown) (unknown) Patient: Barbara Garcia MR#: [id number] (units unknown) (unknown) (unknown) (no date) (unknown) (unknown) Patient: Selene Garcia (units unknown) (unknown) (unknown) (no date) (unknown) (unknown) Plt Count 315 (150-400) X103/uL (units unknown) (unknown) (unknown) (no date) (unknown) (unknown) Potassium 3.5 (3.4-5.1) mmol/L (units unknown) (unknown) (unknown) (no date) (unknown) (unknown) Prescriptions: (units unknown) (unknown) (unknown) (no date) (unknown) (unknown) Prevent blood clots (units unknown) (unknown) (unknown) (no date) (unknown) (unknown) Previous Rx's (units unknown) (unknown) (unknown) (no date) (unknown) (unknown) Procedure: XR hip w pel if done LT 2V (units unknown) (unknown) (unknown) (no date) (unknown) (unknown) Pulse Oximetry 100 09/29/22 11:39 (units unknown) (unknown) (unknown) (no date) (unknown) (unknown) Pulse Oximetry 100 (units unknown) (unknown) (unknown) (no date) (unknown) (unknown) Pulse Rate 62 11:39 (units unknown) (unknown) (unknown) (no date) (unknown) (unknown) Pulse Rate 62 (units unknown) (unknown) (unknown) (no date) (unknown) (unknown) Questions are addressed and there is agreement with the plan and for follow-up. (units unknown) (unknown) (unknown) (no date) (unknown) (unknown) RBC 3.53 L (4.0-5.2) X106/uL (units unknown) (unknown) (unknown) (no date) (unknown) (unknown) RDW 14.4 (11.6-14.8) % (units unknown) (unknown) (unknown) (no date) (unknown) (unknown) ROS Unobtainable: Al l systems reviewed + are unremarkable except as noted in HPI (units unknown) (unknown) (unknown) (no date) (unknown) (unknown) Radiologist's Impression: (units unknown) (unknown) (unknown) (no date) (unknown) (unknown) Referrals: (units unknown) (unknown) (unknown) (no date) (unknown) (unknown) Related Data (units unknown) (unknown) (unknown) (no date) (unknown) (unknown) Respiratory Rate 18 09/29/22 11:39 (units unknown) (unknown) (unknown) (no date) (unknown) (unknown) Respiratory Rate 18 (units unknown) (unknown) (unknown) (no date) (unknown) (unknown) Respiratory: normal work of breathing, without tachypnea or hypoxia. (units unknown) (unknown) (unknown) (no date) (unknown) (unknown) Review of Systems (units unknown) (unknown) (unknown) (no date) (unknown) (unknown) Reviewed vitals sign s and nursing notes. (units unknown) (unknown) (unknown) (no date) (unknown) (unknown) Rx Instructions: (units unknown) (unknown) (unknown) (no date) (unknown) (unknown) SARS-CoV-2 (PCR) Negative (Negative) (units unknown) (unknown) (unknown) (no date) (unknown) (unknown) Seasonal allergies (units unknown) (unknown) (unknown) (no date) (unknown) (unknown) She endorses having a dry mouth she denies any upper respiratory symptoms, COVID (units unknown) (unknown) (unknown) (no date) (unknown) (unknown) She required reducti on of her left hip with Dr. Roberts. There were several (units unknown) (unknown) (unknown) (no date) (unknown) (unknown) Signed By: (units unknown) (unknown) (unknown) (no date) (unknown) (unknown) Signed (units unknown) (unknown) (unknown) (no date) (unknown) (unknown) Skin: brisk capillar y refill, without rash or wound (units unknown) (unknown) (unknown) (no date) (unknown) (unknown) Smoking Status: Alejandralane rubin smoker (units unknown) (unknown) (unknown) (no date) (unknown) (unknown) Social History (units unknown) (unknown) (unknown) (no date) (unknown) (unknown) Social consideration s that may affect disposition: none (units unknown) (unknown) (unknown) (no date) (unknown) (unknown) Sodium 140 (137-145) mmol/L (units unknown) (unknown) (unknown) (no date) (unknown) (unknown) Soft tissues:? No suspicious soft tissue calcifications or masses.? (units unknown) (unknown) (unknown) (no date) (unknown) (unknown) Source: patient and EMS (units unknown) (unknown) (unknown) (no date) (unknown) (unknown) Stand Alone Forms: Patient Portal/API (units unknown) (unknown) (unknown) (no date) (unknown) (unknown) Stated Complaint: L Hip Dislocated t-2 days (units unknown) (unknown) (unknown) (no date) (unknown) (unknown) Stop: 09/29/22 13:01 (units unknown) (unknown) (unknown) (no date) (unknown) (unknown) Substance Use Type: does not use (units unknown) (unknown) (unknown) (no date) (unknown) (unknown) Surgical History (units unknown) (unknown) (unknown) (no date) (unknown) (unknown) TECHNIQUE:? 2 views of the hip were acquired.? (units unknown) (unknown) (unknown) (no date) (unknown) (unknown) Temperature 98.6 F 09/29/22 11:39 (units unknown) (unknown) (unknown) (no date) (unknown) (unknown) Temperature 98.6 F (units unknown) (unknown) (unknown) (no date) (unknown) (unknown) This is a 72 year female presents to the emergency department via EMS with (units unknown) (unknown) (unknown) (no date) (unknown) (unknown) Time Seen by Nicole r: 09/29/22 12:55 (units unknown) (unknown) (unknown) (no date) (unknown) (unknown) Total Bilirubin 0.4 (0.2-1.3) mg/dL (units unknown) (unknown) (unknown) (no date) (unknown) (unknown) Total Protein 6.4 (6.3-8.2) g/dL (units unknown) (unknown) (unknown) (no date) (unknown) (unknown) Vital Signs - 8 hr (units unknown) (unknown) (unknown) (no date) (unknown) (unknown) Vital Signs (units unknown) (unknown) (unknown) (no date) (unknown) (unknown) Vital signs: (units unknown) (unknown) (unknown) (no date) (unknown) (unknown) WBC 8.0 (4.5-11.0) X103/uL (units unknown) (unknown) (unknown) (no date) (unknown) (unknown) XR hip w pel if done LT 2V Stat (units unknown) (unknown) (unknown) (no date) (unknown) (unknown) XRay Report (units unknown) (unknown) (unknown) (no date) (unknown) (unknown) Maria Teresa Larsen PA-C [Primary Care Provider] (units unknown) (unknown) (unknown) (no date) (unknown) (unknown) [Embedded Image Not Available] (units unknown) (unknown) (unknown) (no date) (unknown) (unknown) acetaminophen 325 mg Tablet (units unknown) (unknown) (unknown) (no date) (unknown) (unknown) acetaminophen 325 mg tablet 650 mg PO Q6H PRN fever or pain 09/15/22 (units unknown) (unknown) (unknown) (no date) (unknown) (unknown) alcohol intake frequency: holidays/special occasions only (units unknown) (unknown) (unknown) (no date) (unknown) (unknown) alcohol intake: current (units unknown) (unknown) (unknown) (no date) (unknown) (unknown) allergies (units unknown) (unknown) (unknown) (no date) (unknown) (unknown) and below (units unknown) (unknown) (unknown) (no date) (unknown) (unknown) any numbness. Megha del toro states that today she was standing with her walker, (units unknown) (unknown) (unknown) (no date) (unknown) (unknown) aspirin 81 mg Tablet,Delayed Release (Dr/Ec) (units unknown) (unknown) (unknown) (no date) (unknown) (unknown) aspirin 81 mg tablet,delayed 81 mg PO BID 6 weeks #84 tabs 09/15/22 (units unknown) (unknown) (unknown) (no date) (unknown) (unknown) aspirin-acetaminophe n- caffeine 250 1 - 2 tab PO BID 08/13/22 09/27/22 (units unknown) (unknown) (unknown) (no date) (unknown) (unknown) atorvastatin 20 mg Tablet (units unknown) (unknown) (unknown) (no date) (unknown) (unknown) atorvastatin 20 mg tablet 20 mg PO BEDTIME 08/13/22 09/27/22 (units unknown) (unknown) (unknown) (no date) (unknown) (unknown) attempts with tracti on and none of them worked. She was discharged from the (units unknown) (unknown) (unknown) (no date) (unknown) (unknown) bicarbonate 1.1 gram capsule (units unknown) (unknown) (unknown) (no date) (unknown) (unknown) caps (units unknown) (unknown) (unknown) (no date) (unknown) (unknown) causing her to fall but she denies hitting her head. Her states that he (units unknown) (unknown) (unknown) (no date) (unknown) (unknown) cetirizine 10 mg tablet (Zyrtec) 10 mg PO DAILY PRN Seasonal 08/13/22 09/27/22 (units unknown) (unknown) (unknown) (no date) (unknown) (unknown) cetirizine [Zyrtec] 10 mg Tablet (units unknown) (unknown) (unknown) (no date) (unknown) (unknown) concern of a left hi p dislocation status post hip dislocation 2 days ago. (units unknown) (unknown) (unknown) (no date) (unknown) (unknown) denies any sensation changes, she can wiggle her toes and her foot and denies (units unknown) (unknown) (unknown) (no date) (unknown) (unknown) department visit [facility] 09/27/2022 (units unknown) (unknown) (unknown) (no date) (unknown) (unknown) dislocated. (units unknown) (unknown) (unknown) (no date) (unknown) (unknown) dislocation of hip (units unknown) (unknown) (unknown) (no date) (unknown) (unknown) dislocation, he accepts, patient's last NPO sat as was last night. She has had (units unknown) (unknown) (unknown) (no date) (unknown) (unknown) dislocation. She had pain down her leg and states it feels similar today. She (units unknown) (unknown) (unknown) (no date) (unknown) (unknown) distress, well groomed, afebrile (units unknown) (unknown) (unknown) (no date) (unknown) (unknown) docusate sodium 100 mg Capsule (units unknown) (unknown) (unknown) (no date) (unknown) (unknown) docusate sodium 100 mg capsule 100 mg PO BID PRN constipation #30 09/15/22 (units unknown) (unknown) (unknown) (no date) (unknown) (unknown) escitalopram oxalate 20 mg Tablet (units unknown) (unknown) (unknown) (no date) (unknown) (unknown) escitalopram oxalate 20 mg tablet 20 mg PO DAILY 08/13/22 09/27/22 (units unknown) (unknown) (unknown) (no date) (unknown) (unknown) evidence of pelvic fracture (units unknown) (unknown) (unknown) (no date) (unknown) (unknown) fracture (units unknown) (unknown) (unknown) (no date) (unknown) (unknown) helped her. She has not been able to move her left knee or left hip at all. (units unknown) (unknown) (unknown) (no date) (unknown) (unknown) hip. Pending radiology's interpretation. Will contact Dr. Aviles for (units unknown) (unknown) (unknown) (no date) (unknown) (unknown) hospital today. Stat es this happened at 09:00 this morning. She states that her (units unknown) (unknown) (unknown) (no date) (unknown) (unknown) household members: spouse (units unknown) (unknown) (unknown) (no date) (unknown) (unknown) ibuprofen 400 mg Tablet (units unknown) (unknown) (unknown) (no date) (unknown) (unknown) ibuprofen 400 mg tablet 400 mg PO Q4H PRN 09/15/22 (units unknown) (unknown) (unknown) (no date) (unknown) (unknown) improved symptoms since she received pain medication, secondary doses were (units unknown) (unknown) (unknown) (no date) (unknown) (unknown) mg-250 mg-65 mg tabl et (Excedrin (units unknown) (unknown) (unknown) (no date) (unknown) (unknown) omeprazole 20 mg-sodium 1 cap PO DAILY PRN GI Upset 08/13/22 09/27/22 (units unknown) (unknown) (unknown) (no date) (unknown) (unknown) omeprazole-sodium bicarbonate [Zegerid] 20-1.1 mg-gram Capsule (units unknown) (unknown) (unknown) (no date) (unknown) (unknown) ordered. (units unknown) (unknown) (unknown) (no date) (unknown) (unknown) pain going down her leg, no ecchymosis (units unknown) (unknown) (unknown) (no date) (unknown) (unknown) pain is quite severe , and she is having spasms going down her leg today. Last (units unknown) (unknown) (unknown) (no date) (unknown) (unknown) reduction as patient required complicated reduction in the OR 2 days ago. (units unknown) (unknown) (unknown) (no date) (unknown) (unknown) refill, warm to touc h, no rotation, equivocal length when compared to the right, (units unknown) (unknown) (unknown) (no date) (unknown) (unknown) release (units unknown) (unknown) (unknown) (no date) (unknown) (unknown) solifenacin 10 mg tablet (Vesicare) 10 mg PO DAILY 08/13/22 09/27/22 (units unknown) (unknown) (unknown) (no date) (unknown) (unknown) solifenacin [Vesicar e] 10 mg Tablet (units unknown) (unknown) (unknown) (no date) (unknown) (unknown) states that she turn ed her head to the right and felt a pop in her left hip (units unknown) (unknown) (unknown) (no date) (unknown) (unknown) test was negative 2 days ago. (units unknown) (unknown) (unknown) (no date) (unknown) (unknown) time she ate was las t night, states she has not had any food or water today. (units unknown) (unknown) (unknown) (no date) (unknown) (unknown) to: Anterior hip dislocation, failure of left hip arthroplasty, associated (units unknown) (unknown) (unknown) (no date) (unknown) (unknown) unremarkable.? No (units unknown) (unknown) (unknown) (no date) (unknown) (unknown) well as prior record s if available. Pertinent records include: Emergency (units unknown) (unknown) Result panel 1325 (unknown) (no date) (unknown) (unknown) (no value) (units unknown) (unknown) (unknown) (no date) (unknown) (unknown) #90 tabs (units unknown) (unknown) (unknown) (no date) (unknown) (unknown) <Electronically sign ed by Kelley [employer]> (units unknown) (unknown) (unknown) (no date) (unknown) (unknown) (Zegerid) (units unknown) (unknown) (unknown) (no date) (unknown) (unknown) - Unspecified dislocation of left hip, initial encounter (units unknown) (unknown) (unknown) (no date) (unknown) (unknown) 09/14/[address] Annika River. Patient came into the emergency department on (units unknown) (unknown) (unknown) (no date) (unknown) (unknown) 09/27/2022 after a sitting to standing complication causing a left hip (units unknown) (unknown) (unknown) (no date) (unknown) (unknown) 09/29/22 09/29/22 09/29/22 Range/Units (units unknown) (unknown) (unknown) (no date) (unknown) (unknown) 09/29/22 11:44 (units unknown) (unknown) (unknown) (no date) (unknown) (unknown) 09/29/22 12:25 (units unknown) (unknown) (unknown) (no date) (unknown) (unknown) 09/29/22 12:47 (units unknown) (unknown) (unknown) (no date) (unknown) (unknown) 09/29/22 14:11 (units unknown) (unknown) (unknown) (no date) (unknown) (unknown) 09/29/22 1523 (units unknown) (unknown) (unknown) (no date) (unknown) (unknown) 09/29/22 (units unknown) (unknown) (unknown) (no date) (unknown) (unknown) 11:39 09/29/22 (units unknown) (unknown) (unknown) (no date) (unknown) (unknown) [address] [place] [address] (units unknown) (unknown) (unknown) (no date) (unknown) (unknown) 12:25 12:25 12:47 (units unknown) (unknown) (unknown) (no date) (unknown) (unknown) 13:05 09/29/22 (units unknown) (unknown) (unknown) (no date) (unknown) (unknown) 13:30 (units unknown) (unknown) (unknown) (no date) (unknown) (unknown) 14:00 (units unknown) (unknown) (unknown) (no date) (unknown) (unknown) 3151 (units unknown) (unknown) (unknown) (no date) (unknown) (unknown) ? (units unknown) (unknown) (unknown) (no date) (unknown) (unknown) ALT 21 (<35) IU/L (units unknown) (unknown) (unknown) (no date) (unknown) (unknown) AST 37 H (14-36) IU/L (units unknown) (unknown) (unknown) (no date) (unknown) (unknown) Accession Number: [id number] ?? (units unknown) (unknown) (unknown) (no date) (unknown) (unknown) Acct:[id number] (units unknown) (unknown) (unknown) (no date) (unknown) (unknown) Admit Date/Time: 09/29/22 14:37 (units unknown) (unknown) (unknown) (no date) (unknown) (unknown) Admit Provider: Jorge Aviles (units unknown) (unknown) (unknown) (no date) (unknown) (unknown) Age/Sex: 72 / F (units unknown) (unknown) (unknown) (no date) (unknown) (unknown) Albumin 3.7 (3.5-5.0 ) g/dL (units unknown) (unknown) (unknown) (no date) (unknown) (unknown) Albumin/Globulin Rat io 1.4 (1.0-2.8) (units unknown) (unknown) (unknown) (no date) (unknown) (unknown) Alkaline Phosphatase 89 (38-126) U/L (units unknown) (unknown) (unknown) (no date) (unknown) (unknown) Allergies (units unknown) (unknown) (unknown) (no date) (unknown) (unknown) Allergy/AdvReac Type Severity Reaction Status Date / Time (units unknown) (unknown) (unknown) (no date) (unknown) (unknown) [place] [address] (units unknown) (unknown) (unknown) (no date) (unknown) (unknown) Approved by: Parish Demarco M.D. on 09/29/2022 at 12:15? (units unknown) (unknown) (unknown) (no date) (unknown) (unknown) BUN 15 (7-17) mg/dL (units unknown) (unknown) (unknown) (no date) (unknown) (unknown) BUN/Creatinine Ratio 13.2 (6-22) (units unknown) (unknown) (unknown) (no date) (unknown) (unknown) Baso # (Auto) 0 (0-100) /uL (units unknown) (unknown) (unknown) (no date) (unknown) (unknown) Baso % (Auto) 0.6 (0-2) % (units unknown) (unknown) (unknown) (no date) (unknown) (unknown) Blood Pressure 135/61 (units unknown) (unknown) (unknown) (no date) (unknown) (unknown) Blood Pressure 175/7 6 H 09/29/22 11:39 (units unknown) (unknown) (unknown) (no date) (unknown) (unknown) Blood Pressure 175/7 6 H 152/67 H 152/73 H (units unknown) (unknown) (unknown) (no date) (unknown) (unknown) Bones:? Anteriorly dislocated left hip prosthesis noted.? Right hip (units unknown) (unknown) (unknown) (no date) (unknown) (unknown) COMPARISON:[facility], CR, XR HIP W PEL IF DONE LT 2V, 09/27/2022, 19:35. 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 2) mg/dL (units unknown) (unknown) (unknown) (no date) (unknown) (unknown) Carbon Dioxide 29 (22-32) mmol/L (units unknown) (unknown) (unknown) (no date) (unknown) (unknown) Chief Complaint: Extremity Injury, Lower (units unknown) (unknown) (unknown) (no date) (unknown) (unknown) Chief Complaint: Lef t hip pain with pop, concern for dislocation (units unknown) (unknown) (unknown) (no date) (unknown) (unknown) Chloride 105 (98-107 ) mmol/L (units unknown) (unknown) (unknown) (no date) (unknown) (unknown) Clinical Impression: (units unknown) (unknown) (unknown) (no date) (unknown) (unknown) Complete Blood Count AUTO DIFF Stat (units unknown) (unknown) (unknown) (no date) (unknown) (unknown) Comprehensive Metabolic Panel Stat (units unknown) (unknown) (unknown) (no date) (unknown) (unknown) Conversation with Dr Raad Aviles regarding OR for reduction of left hip anterior (units unknown) (unknown) (unknown) (no date) (unknown) (unknown) Course of care: I sa w the patient and she does appear to have a dislocated left (units unknown) (unknown) (unknown) (no date) (unknown) (unknown) Course (units unknown) (unknown) (unknown) (no date) (unknown) (unknown) Creatinine 1.14 H (0.52-1.04) mg/dL (units unknown) (unknown) (unknown) (no date) (unknown) (unknown) : 1950 Acct:[id number] (units unknown) (unknown) (unknown) (no date) (unknown) (unknown) : 1950 (units unknown) (unknown) (unknown) (no date) (unknown) (unknown) Date of Service: 09/29/22 (units unknown) (unknown) (unknown) (no date) (unknown) (unknown) Departure (units unknown) (unknown) (unknown) (no date) (unknown) (unknown) Depression (units unknown) (unknown) (unknown) (no date) (unknown) (unknown) Diazepam (Diazepam 1 0 Mg/2 Ml Syringe) 2 mg IV NOW ONE (units unknown) (unknown) (unknown) (no date) (unknown) (unknown) Discharge Plan (units unknown) (unknown) (unknown) (no date) (unknown) (unknown) Discontinued Medications (units unknown) (unknown) (unknown) (no date) (unknown) (unknown) Dislocation, hip closed (units unknown) (unknown) (unknown) (no date) (unknown) (unknown) Diverticulitis (units unknown) (unknown) (unknown) (no date) (unknown) (unknown) Documented By: MO (units unknown) (unknown) (unknown) (no date) (unknown) (unknown) Documented By: RL (units unknown) (unknown) (unknown) (no date) (unknown) (unknown) ED Orders (units unknown) (unknown) (unknown) (no date) (unknown) (unknown) ER Physician: Kelley Calix (units unknown) (unknown) (unknown) (no date) (unknown) (unknown) Emergency Report (units unknown) (unknown) (unknown) (no date) (unknown) (unknown) Encounter type: initial encounter Laterality: left Qualified Code(s): S73.005A (units unknown) (unknown) (unknown) (no date) (unknown) (unknown) Encounter type: initial encounter Qualified Code(s): T84.021A - Dislocation of (units unknown) (unknown) (unknown) (no date) (unknown) (unknown) Eos # (Auto) 200 (0-450) /uL (units unknown) (unknown) (unknown) (no date) (unknown) (unknown) Eos % (Auto) 2.7 (2- 4) % (units unknown) (unknown) (unknown) (no date) (unknown) (unknown) Estimated GFR 51 L (>60) mL/min (units unknown) (unknown) (unknown) (no date) (unknown) (unknown) Exam Narrative: (units unknown) (unknown) (unknown) (no date) (unknown) (unknown) Exam (units unknown) (unknown) (unknown) (no date) (unknown) (unknown) Extra Strength) (units unknown) (unknown) (unknown) (no date) (unknown) (unknown) FINDINGS:? 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 (units unknown) (unknown) (unknown) (no date) (unknown) (unknown) General (units unknown) (unknown) (unknown) (no date) (unknown) (unknown) General: Pleasant, lying on gurney, complaining of pain but is not in acute (units unknown) (unknown) (unknown) (no date) (unknown) (unknown) Globulin 2.7 (1.7-4. 1) g/dL (units unknown) (unknown) (unknown) (no date) (unknown) (unknown) Glucose 106 (80-110) mg/dL (units unknown) (unknown) (unknown) (no date) (unknown) (unknown) HEENT: symmetrical facial expressions, moist mucous membranes (units unknown) (unknown) (unknown) (no date) (unknown) (unknown) HLD (hyperlipidemia) (units unknown) (unknown) (unknown) (no date) (unknown) (unknown) HPI - Extremity Inju ry (Lower) (units unknown) (unknown) (unknown) (no date) (unknown) (unknown) HPI Narrative: (units unknown) (unknown) (unknown) (no date) (unknown) (unknown) Hct 31.1 L (36-46) % (units unknown) (unknown) (unknown) (no date) (unknown) (unknown) Hearing impaired (units unknown) (unknown) (unknown) (no date) (unknown) (unknown) Hgb 10.6 L (12.0-16. 0) g/dL (units unknown) (unknown) (unknown) (no date) (unknown) (unknown) Hip Xray: (units unknown) (unknown) (unknown) (no date) (unknown) (unknown) History of Present Illness (units unknown) (unknown) (unknown) (no date) (unknown) (unknown) History of bladder surgery (units unknown) (unknown) (unknown) (no date) (unknown) (unknown) History of total lef t knee replacement (units unknown) (unknown) (unknown) (no date) (unknown) (unknown) History of total rig ht knee replacement (units unknown) (unknown) (unknown) (no date) (unknown) (unknown) Home Medications (units unknown) (unknown) (unknown) (no date) (unknown) (unknown) Hx of left breast biopsy (units unknown) (unknown) (unknown) (no date) (unknown) (unknown) Hx of right breast biopsy (units unknown) (unknown) (unknown) (no date) (unknown) (unknown) Hx of tonsillectomy (units unknown) (unknown) (unknown) (no date) (unknown) (unknown) Hydromorphone HCl (Hydromorphone 0.5 Mg Inj) 0.5 mg IV NOW ONE (units unknown) (unknown) (unknown) (no date) (unknown) (unknown) Hydromorphone HCl (Hydromorphone 0.5 Mg Inj) 0.5 mg IV Q2H PRN (units unknown) (unknown) (unknown) (no date) (unknown) (unknown) I have independently reviewed the patient's vital signs and nursing notes as (units unknown) (unknown) (unknown) (no date) (unknown) (unknown) I have spoken with t he patient in regard to admission, patient understands and (units unknown) (unknown) (unknown) (no date) (unknown) (unknown) IMPRESSION:? Anterio r dislocation, left total hip arthroplasty (units unknown) (unknown) (unknown) (no date) (unknown) (unknown) INDICATIONS:? ? dislocation (units unknown) (unknown) (unknown) (no date) (unknown) (unknown) Imaging Data (units unknown) (unknown) (unknown) (no date) (unknown) (unknown) Initial Vital Signs (units unknown) (unknown) (unknown) (no date) (unknown) (unknown) Initial Vital Signs: (units unknown) (unknown) (unknown) (no date) (unknown) (unknown) [address] [address] (units unknown) (unknown) (unknown) (no date) (unknown) (unknown) [facility] (units unknown) (unknown) (unknown) (no date) (unknown) (unknown) Lab Data (units unknown) (unknown) (unknown) (no date) (unknown) (unknown) Lab Results (units unknown) (unknown) (unknown) (no date) (unknown) (unknown) Labs: (units unknown) (unknown) (unknown) (no date) (unknown) (unknown) Last Admin: 09/29/22 13:23 Dose: 0.5 mg (units unknown) (unknown) (unknown) (no date) (unknown) (unknown) Last Admin: 09/29/22 13:23 Dose: 2 mg (units unknown) (unknown) (unknown) (no date) (unknown) (unknown) Last Admin: 09/29/22 15:16 Dose: 0.5 mg (units unknown) (unknown) (unknown) (no date) (unknown) (unknown) Last Admin: 09/29/22 15:17 Dose: 2 mg (units unknown) (unknown) (unknown) (no date) (unknown) (unknown) Lipase 44 (23-300) U/L (units unknown) (unknown) (unknown) (no date) (unknown) (unknown) Lipase Stat (units unknown) (unknown) (unknown) (no date) (unknown) (unknown) Loc: ED (units unknown) (unknown) (unknown) (no date) (unknown) (unknown) Lymph # (Auto) 1100 (2840-6324) /uL (units unknown) (unknown) (unknown) (no date) (unknown) (unknown) Lymph % (Auto) 13.3 L (25-40) % (units unknown) (unknown) (unknown) (no date) (unknown) (unknown) MCH 29.9 (26-34) PG (units unknown) (unknown) (unknown) (no date) (unknown) (unknown) MCHC 34.0 (30-36) % (units unknown) (unknown) (unknown) (no date) (unknown) (unknown) MCV 87.9 (80-100) fL (units unknown) (unknown) (unknown) (no date) (unknown) (unknown) MDM - Extremity Inju ry (Lower) (units unknown) (unknown) (unknown) (no date) (unknown) (unknown) MDM Narrative (units unknown) (unknown) (unknown) (no date) (unknown) (unknown) MR#: [id number] (units unknown) (unknown) (unknown) (no date) (unknown) (unknown) MSK: moves all extremities, no weakness, normal tone, left foot with brisk cap (units unknown) (unknown) (unknown) (no date) (unknown) (unknown) Medical History (units unknown) (unknown) (unknown) (no date) (unknown) (unknown) Medical decision making narrative: (units unknown) (unknown) (unknown) (no date) (unknown) (unknown) Medication Instructions Recorded Confirmed (units unknown) (unknown) (unknown) (no date) (unknown) (unknown) Medication Instructions Recorded (units unknown) (unknown) (unknown) (no date) (unknown) (unknown) Mode of arrival: EMS (units unknown) (unknown) (unknown) (no date) (unknown) (unknown) [place] # (Auto) 400 (0-900) /uL (units unknown) (unknown) (unknown) (no date) (unknown) (unknown) [place] % (Auto) 5.4 (3-14) % (units unknown) (unknown) (unknown) (no date) (unknown) (unknown) Multiple etiologies for patient's symptoms considered including, but not limited (units unknown) (unknown) (unknown) (no date) (unknown) (unknown) My Imaging interpretation: Patient's left hip appears to be anteriorly (units unknown) (unknown) (unknown) (no date) (unknown) (unknown) Narrative (units unknown) (unknown) (unknown) (no date) (unknown) (unknown) Neuro: clear speech and normal cognition, A+O x3, GCS 15, no sensation deficits (units unknown) (unknown) (unknown) (no date) (unknown) (unknown) Neut # (Auto) 6300 (8417-5024) /uL (units unknown) (unknown) (unknown) (no date) (unknown) (unknown) Neut % (Auto) 78.0 H (50-75) % (units unknown) (unknown) (unknown) (no date) (unknown) (unknown) No Known Drug Allergies Allergy Verified 09/29/22 12:10 (units unknown) (unknown) (unknown) (no date) (unknown) (unknown) Ordered: (units unknown) (unknown) (unknown) (no date) (unknown) (unknown) Ordering Provider: Magdaleno Kingston MD (units unknown) (unknown) (unknown) (no date) (unknown) (unknown) Orders (units unknown) (unknown) (unknown) (no date) (unknown) (unknown) Osteoarthritis (units unknown) (unknown) (unknown) (no date) (unknown) (unknown) Oxygen Delivery Meth od Room Air 09/29/22 11:39 (units unknown) (unknown) (unknown) (no date) (unknown) (unknown) Oxygen Delivery Meth od Room Air Room Air Room Air (units unknown) (unknown) (unknown) (no date) (unknown) (unknown) Oxygen Delivery Meth od Room Air (units unknown) (unknown) (unknown) (no date) (unknown) (unknown) PRN Reason: Pain, Moderate (4-6) (units unknown) (unknown) (unknown) (no date) (unknown) (unknown) PROCEDURE:? XR HIP W PEL IF DONE LT 2V (units unknown) (unknown) (unknown) (no date) (unknown) (unknown) PT and DP pulses are 2+, palpation left hip appears to be anterior dislocation. (units unknown) (unknown) (unknown) (no date) (unknown) (unknown) Paging Dr. Aviles [phone] (units unknown) (unknown) (unknown) (no date) (unknown) (unknown) Pain/inflammation #9 0 tabs (units unknown) (unknown) (unknown) (no date) (unknown) (unknown) Patient Disposition: Admitted as Observation (units unknown) (unknown) (unknown) (no date) (unknown) (unknown) Patient History (units unknown) (unknown) (unknown) (no date) (unknown) (unknown) Patient entered in a s observation status. Patient was informed of lab and (units unknown) (unknown) (unknown) (no date) (unknown) (unknown) Patient has a histor y of dyslipidemia, anxiety, and left hip arthroplasty on (units unknown) (unknown) (unknown) (no date) (unknown) (unknown) Patient has not been able to move her hip or left knee at all. Complaining of (units unknown) (unknown) (unknown) (no date) (unknown) (unknown) Patient's pain was treated with Dilaudid and Valium which she reports as good (units unknown) (unknown) (unknown) (no date) (unknown) (unknown) Patient: Barbara Garcia MR#: [id number] (units unknown) (unknown) (unknown) (no date) (unknown) (unknown) Patient: Selene Garcia (units unknown) (unknown) (unknown) (no date) (unknown) (unknown) Plt Count 315 (150-400) X103/uL (units unknown) (unknown) (unknown) (no date) (unknown) (unknown) Potassium 3.5 (3.4-5.1) mmol/L (units unknown) (unknown) (unknown) (no date) (unknown) (unknown) Previous Rx's (units unknown) (unknown) (unknown) (no date) (unknown) (unknown) Procedure: XR hip w pel if done LT 2V (units unknown) (unknown) (unknown) (no date) (unknown) (unknown) Pulse Oximetry 100 09/29/22 11:39 (units unknown) (unknown) (unknown) (no date) (unknown) (unknown) Pulse Oximetry 100 9 9 95 (units unknown) (unknown) (unknown) (no date) (unknown) (unknown) Pulse Oximetry 94 (units unknown) (unknown) (unknown) (no date) (unknown) (unknown) Pulse Rate 62 11:39 (units unknown) (unknown) (unknown) (no date) (unknown) (unknown) Pulse Rate 62 67 79 (units unknown) (unknown) (unknown) (no date) (unknown) (unknown) Pulse Rate 65 (units unknown) (unknown) (unknown) (no date) (unknown) (unknown) Qualifiers: (units unknown) (unknown) (unknown) (no date) (unknown) (unknown) Questions are addressed and there is agreement with the plan and for follow-up. (units unknown) (unknown) (unknown) (no date) (unknown) (unknown) RBC 3.53 L (4.0-5.2) X106/uL (units unknown) (unknown) (unknown) (no date) (unknown) (unknown) RDW 14.4 (11.6-14.8) % (units unknown) (unknown) (unknown) (no date) (unknown) (unknown) ROS Unobtainable: Al l systems reviewed + are unremarkable except as noted in HPI (units unknown) (unknown) (unknown) (no date) (unknown) (unknown) Radiologist's Impression: (units unknown) (unknown) (unknown) (no date) (unknown) (unknown) Related Data (units unknown) (unknown) (unknown) (no date) (unknown) (unknown) Respiratory Rate 18 09/29/22 11:39 (units unknown) (unknown) (unknown) (no date) (unknown) (unknown) Respiratory Rate 18 18 18 (units unknown) (unknown) (unknown) (no date) (unknown) (unknown) Respiratory Rate 18 (units unknown) (unknown) (unknown) (no date) (unknown) (unknown) Respiratory: normal work of breathing, without tachypnea or hypoxia. (units unknown) (unknown) (unknown) (no date) (unknown) (unknown) Review of Systems (units unknown) (unknown) (unknown) (no date) (unknown) (unknown) Reviewed vitals sign s and nursing notes. (units unknown) (unknown) (unknown) (no date) (unknown) (unknown) SARS-CoV-2 (PCR) Negative (Negative) (units unknown) (unknown) (unknown) (no date) (unknown) (unknown) Seasonal allergies (units unknown) (unknown) (unknown) (no date) (unknown) (unknown) She endorses having a dry mouth she denies any upper respiratory symptoms, COVID (units unknown) (unknown) (unknown) (no date) (unknown) (unknown) She required reducti on of her left hip with Dr. Roberts. There were several (units unknown) (unknown) (unknown) (no date) (unknown) (unknown) Signed By: (units unknown) (unknown) (unknown) (no date) (unknown) (unknown) Signed (units unknown) (unknown) (unknown) (no date) (unknown) (unknown) Skin: brisk capillar y refill, without rash or wound (units unknown) (unknown) (unknown) (no date) (unknown) (unknown) Smoking Status: [place] r smoker (units unknown) (unknown) (unknown) (no date) (unknown) (unknown) Social History (units unknown) (unknown) (unknown) (no date) (unknown) (unknown) Social consideration s that may affect disposition: none (units unknown) (unknown) (unknown) (no date) (unknown) (unknown) Sodium 140 (137-145) mmol/L (units unknown) (unknown) (unknown) (no date) (unknown) (unknown) Soft tissues:? No suspicious soft tissue calcifications or masses.? (units unknown) (unknown) (unknown) (no date) (unknown) (unknown) Source: patient and EMS (units unknown) (unknown) (unknown) (no date) (unknown) (unknown) Stated Complaint: L Hip Dislocated t-2 days (units unknown) (unknown) (unknown) (no date) (unknown) (unknown) Stop: 09/29/22 13:01 (units unknown) (unknown) (unknown) (no date) (unknown) (unknown) Stop: 09/29/22 15:11 (units unknown) (unknown) (unknown) (no date) (unknown) (unknown) Substance Use Type: does not use (units unknown) (unknown) (unknown) (no date) (unknown) (unknown) Surgical History (units unknown) (unknown) (unknown) (no date) (unknown) (unknown) TECHNIQUE:? 2 views of the hip were acquired.? (units unknown) (unknown) (unknown) (no date) (unknown) (unknown) Temperature 98.6 F 09/29/22 11:39 (units unknown) (unknown) (unknown) (no date) (unknown) (unknown) Temperature 98.6 F (units unknown) (unknown) (unknown) (no date) (unknown) (unknown) Temperature (units unknown) (unknown) (unknown) (no date) (unknown) (unknown) This is a 72 year female presents to the emergency department via EMS with (units unknown) (unknown) (unknown) (no date) (unknown) (unknown) Time Seen by Provide r: 09/29/22 12:55 (units unknown) (unknown) (unknown) (no date) (unknown) (unknown) Total Bilirubin 0.4 (0.2-1.3) mg/dL (units unknown) (unknown) (unknown) (no date) (unknown) (unknown) Total Protein 6.4 (6.3-8.2) g/dL (units unknown) (unknown) (unknown) (no date) (unknown) (unknown) Vital Signs - 8 hr (units unknown) (unknown) (unknown) (no date) (unknown) (unknown) Vital Signs (units unknown) (unknown) (unknown) (no date) (unknown) (unknown) Vital signs: (units unknown) (unknown) (unknown) (no date) (unknown) (unknown) WBC 8.0 (4.5-11.0) X103/uL (units unknown) (unknown) (unknown) (no date) (unknown) (unknown) XR hip w pel if done LT 2V Stat (units unknown) (unknown) (unknown) (no date) (unknown) (unknown) XRay Report (units unknown) (unknown) (unknown) (no date) (unknown) (unknown) [Embedded Image Not Available] (units unknown) (unknown) (unknown) (no date) (unknown) (unknown) acetaminophen 325 mg tablet 650 mg PO Q6H PRN fever or pain 09/15/22 (units unknown) (unknown) (unknown) (no date) (unknown) (unknown) admitting physician who agrees with admission. All questions answered at this (units unknown) (unknown) (unknown) (no date) (unknown) (unknown) agrees. I have communicated the patient's evaluation and treatment plan to the (units unknown) (unknown) (unknown) (no date) (unknown) (unknown) alcohol intake frequency: holidays/special occasions only (units unknown) (unknown) (unknown) (no date) (unknown) (unknown) alcohol intake: current (units unknown) (unknown) (unknown) (no date) (unknown) (unknown) allergies (units unknown) (unknown) (unknown) (no date) (unknown) (unknown) and below (units unknown) (unknown) (unknown) (no date) (unknown) (unknown) any numbness. Megha del toro states that today she was standing with her walker, (units unknown) (unknown) (unknown) (no date) (unknown) (unknown) aspirin 81 mg tablet,delayed 81 mg PO BID 6 weeks #84 tabs 09/15/22 (units unknown) (unknown) (unknown) (no date) (unknown) (unknown) aspirin-acetaminophe n- caffeine 250 1 - 2 tab PO BID 08/13/22 09/27/22 (units unknown) (unknown) (unknown) (no date) (unknown) (unknown) atorvastatin 20 mg tablet 20 mg PO BEDTIME 08/13/22 09/27/22 (units unknown) (unknown) (unknown) (no date) (unknown) (unknown) attempts with tracti on and none of them worked. She was discharged from the (units unknown) (unknown) (unknown) (no date) (unknown) (unknown) bicarbonate 1.1 gram capsule (units unknown) (unknown) (unknown) (no date) (unknown) (unknown) caps (units unknown) (unknown) (unknown) (no date) (unknown) (unknown) causing her to fall but she denies hitting her head. Her states that he (units unknown) (unknown) (unknown) (no date) (unknown) (unknown) cetirizine 10 mg tablet (Zyrtec) 10 mg PO DAILY PRN Seasonal 08/13/22 09/27/22 (units unknown) (unknown) (unknown) (no date) (unknown) (unknown) concern of a left hi p dislocation status post hip dislocation 2 days ago. (units unknown) (unknown) (unknown) (no date) (unknown) (unknown) denies any sensation changes, she can wiggle her toes and her foot and denies (units unknown) (unknown) (unknown) (no date) (unknown) (unknown) department visit [facility] 09/27/2022 (units unknown) (unknown) (unknown) (no date) (unknown) (unknown) dislocated. (units unknown) (unknown) (unknown) (no date) (unknown) (unknown) dislocation, he accepts, patient's last NPO sat as was last night. She has had (units unknown) (unknown) (unknown) (no date) (unknown) (unknown) dislocation. She had pain down her leg and states it feels similar today. She (units unknown) (unknown) (unknown) (no date) (unknown) (unknown) distress, well groomed, afebrile (units unknown) (unknown) (unknown) (no date) (unknown) (unknown) docusate sodium 100 mg capsule 100 mg PO BID PRN constipation #30 09/15/22 (units unknown) (unknown) (unknown) (no date) (unknown) (unknown) doses. (units unknown) (unknown) (unknown) (no date) (unknown) (unknown) escitalopram oxalate 20 mg tablet 20 mg PO DAILY 08/13/22 09/27/22 (units unknown) (unknown) (unknown) (no date) (unknown) (unknown) evidence of pelvic fracture (units unknown) (unknown) (unknown) (no date) (unknown) (unknown) fracture (units unknown) (unknown) (unknown) (no date) (unknown) (unknown) helped her. She has not been able to move her left knee or left hip at all. (units unknown) (unknown) (unknown) (no date) (unknown) (unknown) hip. Pending radiology's interpretation. Will contact Dr. Aviles for (units unknown) (unknown) (unknown) (no date) (unknown) (unknown) hospital today. Stat es this happened at 09:00 this morning. She states that her (units unknown) (unknown) (unknown) (no date) (unknown) (unknown) household members: spouse (units unknown) (unknown) (unknown) (no date) (unknown) (unknown) ibuprofen 400 mg tablet 400 mg PO Q4H PRN 09/15/22 (units unknown) (unknown) (unknown) (no date) (unknown) (unknown) imaging results, pertinent diagnoses, consulting physicians, and treatment plan. (units unknown) (unknown) (unknown) (no date) (unknown) (unknown) improved symptoms since she received pain medication, secondary doses were (units unknown) (unknown) (unknown) (no date) (unknown) (unknown) internal left hip prosthesis, initial encounter (units unknown) (unknown) (unknown) (no date) (unknown) (unknown) mg-250 mg-65 mg tabl et (Excedrin (units unknown) (unknown) (unknown) (no date) (unknown) (unknown) omeprazole 20 mg-sodium 1 cap PO DAILY PRN GI Upset 08/13/22 09/27/22 (units unknown) (unknown) (unknown) (no date) (unknown) (unknown) ordered. (units unknown) (unknown) (unknown) (no date) (unknown) (unknown) pain control for her , her doses were repeated proximally 2 hours after the 1st (units unknown) (unknown) (unknown) (no date) (unknown) (unknown) pain going down her leg, no ecchymosis (units unknown) (unknown) (unknown) (no date) (unknown) (unknown) pain is quite severe , and she is having spasms going down her leg today. Last (units unknown) (unknown) (unknown) (no date) (unknown) (unknown) reduction as patient required complicated reduction in the OR 2 days ago. (units unknown) (unknown) (unknown) (no date) (unknown) (unknown) refill, warm to touc h, no rotation, equivocal length when compared to the right, (units unknown) (unknown) (unknown) (no date) (unknown) (unknown) release (units unknown) (unknown) (unknown) (no date) (unknown) (unknown) solifenacin 10 mg tablet (Vesicare) 10 mg PO DAILY 08/13/22 09/27/22 (units unknown) (unknown) (unknown) (no date) (unknown) (unknown) states that she turn ed her head to the right and felt a pop in her left hip (units unknown) (unknown) (unknown) (no date) (unknown) (unknown) test was negative 2 days ago. (units unknown) (unknown) (unknown) (no date) (unknown) (unknown) time she ate was las t night, states she has not had any food or water today. (units unknown) (unknown) (unknown) (no date) (unknown) (unknown) time. (units unknown) (unknown) (unknown) (no date) (unknown) (unknown) to: Anterior hip dislocation, failure of left hip arthroplasty, associated (units unknown) (unknown) (unknown) (no date) (unknown) (unknown) unremarkable.? No (units unknown) (unknown) (unknown) (no date) (unknown) (unknown) well as prior record s if available. Pertinent records include: Emergency (units unknown) (unknown) Result panel [id number] (unknown) (no date) (unknown) (unknown) (no value) (units unknown) (unknown) (unknown) (no date) (unknown) (unknown) #90 tabs (units unknown) (unknown) (unknown) (no date) (unknown) (unknown) (Zegerid) (units unknown) (unknown) (unknown) (no date) (unknown) (unknown) (past 8 hours): (units unknown) (unknown) (unknown) (no date) (unknown) (unknown) 09/27/22 Rx (units unknown) (unknown) (unknown) (no date) (unknown) (unknown) 09/29/22 09/29/22 09/29/22 (units unknown) (unknown) (unknown) (no date) (unknown) (unknown) 09/29/22 12:25 (units unknown) (unknown) (unknown) (no date) (unknown) (unknown) 09/29/22 1544 (units unknown) (unknown) (unknown) (no date) (unknown) (unknown) 09/29/22 (units unknown) (unknown) (unknown) (no date) (unknown) (unknown) 11:39 09/29/22 (units unknown) (unknown) (unknown) (no date) (unknown) (unknown) 12:25 12:25 12:47 (units unknown) (unknown) (unknown) (no date) (unknown) (unknown) 13:05 09/29/22 (units unknown) (unknown) (unknown) (no date) (unknown) (unknown) 13:30 (units unknown) (unknown) (unknown) (no date) (unknown) (unknown) 14:00 (units unknown) (unknown) (unknown) (no date) (unknown) (unknown) 3151 (units unknown) (unknown) (unknown) (no date) (unknown) (unknown) 72-year-old female w ho is status post a left total hip arthroplasty a few weeks (units unknown) (unknown) (unknown) (no date) (unknown) (unknown) ALT 21 (units unknown) (unknown) (unknown) (no date) (unknown) (unknown) AST 37 H (units unknown) (unknown) (unknown) (no date) (unknown) (unknown) Age/Sex: 72 / F (units unknown) (unknown) (unknown) (no date) (unknown) (unknown) Albumin 3.7 (units unknown) (unknown) (unknown) (no date) (unknown) (unknown) Albumin/Globulin Rat io 1.4 (units unknown) (unknown) (unknown) (no date) (unknown) (unknown) Alkaline Phosphatase 89 (units unknown) (unknown) (unknown) (no date) (unknown) (unknown) Allergies (units unknown) (unknown) (unknown) (no date) (unknown) (unknown) Allergy/AdvReac Type Severity Reaction Status Date / Time (units unknown) (unknown) (unknown) (no date) (unknown) (unknown) Assessment + Plan narrative: (units unknown) (unknown) (unknown) (no date) (unknown) (unknown) Assessment + Plan (units unknown) (unknown) (unknown) (no date) (unknown) (unknown) BUN 15 (units unknown) (unknown) (unknown) (no date) (unknown) (unknown) BUN/Creatinine Ratio 13.2 (units unknown) (unknown) (unknown) (no date) (unknown) (unknown) Baso # (Auto) 0 (units unknown) (unknown) (unknown) (no date) (unknown) (unknown) Baso % (Auto) 0.6 (units unknown) (unknown) (unknown) (no date) (unknown) (unknown) Blood Pressure 135/61 (units unknown) (unknown) (unknown) (no date) (unknown) (unknown) Blood Pressure 175/7 6 H 152/67 H 152/73 H (units unknown) (unknown) (unknown) (no date) (unknown) (unknown) Calcium 8.8 (units unknown) (unknown) (unknown) (no date) (unknown) (unknown) Carbon Dioxide 29 (units unknown) (unknown) (unknown) (no date) (unknown) (unknown) Changes to H+P: No (units unknown) (unknown) (unknown) (no date) (unknown) (unknown) Chief complaint: L H ip Dislocated t-2 days (units unknown) (unknown) (unknown) (no date) (unknown) (unknown) Chloride 105 (units unknown) (unknown) (unknown) (no date) (unknown) (unknown) Creatinine 1.14 H (units unknown) (unknown) (unknown) (no date) (unknown) (unknown) : 1950 Acct:[id number] (units unknown) (unknown) (unknown) (no date) (unknown) (unknown) Date Patient Seen: 09/29/22 (units unknown) (unknown) (unknown) (no date) (unknown) (unknown) Date of Service: 09/29/22 (units unknown) (unknown) (unknown) (no date) (unknown) (unknown) Depression (units unknown) (unknown) (unknown) (no date) (unknown) (unknown) Diverticulitis (units unknown) (unknown) (unknown) (no date) (unknown) (unknown) Eos # (Auto) 200 (units unknown) (unknown) (unknown) (no date) (unknown) (unknown) Eos % (Auto) 2.7 (units unknown) (unknown) (unknown) (no date) (unknown) (unknown) Estimated GFR 51 L (units unknown) (unknown) (unknown) (no date) (unknown) (unknown) Exam Narrative: (units unknown) (unknown) (unknown) (no date) (unknown) (unknown) Exam (units unknown) (unknown) (unknown) (no date) (unknown) (unknown) Extra Strength) (units unknown) (unknown) (unknown) (no date) (unknown) (unknown) GERD (gastroesophage al reflux disease) (units unknown) (unknown) (unknown) (no date) (unknown) (unknown) Globulin 2.7 (units unknown) (unknown) (unknown) (no date) (unknown) (unknown) Glucose 106 (units unknown) (unknown) (unknown) (no date) (unknown) (unknown) HLD (hyperlipidemia) (units unknown) (unknown) (unknown) (no date) (unknown) (unknown) Hct 31.1 L (units unknown) (unknown) (unknown) (no date) (unknown) (unknown) Hearing impaired (units unknown) (unknown) (unknown) (no date) (unknown) (unknown) Hgb 10.6 L (units unknown) (unknown) (unknown) (no date) (unknown) (unknown) History + Physical Report (units unknown) (unknown) (unknown) (no date) (unknown) (unknown) History + Physical reviewed/Exam performed by Physician: Yes (units unknown) (unknown) (unknown) (no date) (unknown) (unknown) History of Present Illness (units unknown) (unknown) (unknown) (no date) (unknown) (unknown) History of bladder surgery (units unknown) (unknown) (unknown) (no date) (unknown) (unknown) History of total lef t knee replacement (units unknown) (unknown) (unknown) (no date) (unknown) (unknown) History of total rig ht knee replacement (units unknown) (unknown) (unknown) (no date) (unknown) (unknown) History (units unknown) (unknown) (unknown) (no date) (unknown) (unknown) Home Medications and Allergies (units unknown) (unknown) (unknown) (no date) (unknown) (unknown) Home Medications (units unknown) (unknown) (unknown) (no date) (unknown) (unknown) Hx of left breast biopsy (units unknown) (unknown) (unknown) (no date) (unknown) (unknown) Hx of right breast biopsy (units unknown) (unknown) (unknown) (no date) (unknown) (unknown) Hx of tonsillectomy (units unknown) (unknown) (unknown) (no date) (unknown) (unknown) Interval Note (units unknown) (unknown) (unknown) (no date) (unknown) (unknown) [address] [address] (units unknown) (unknown) (unknown) (no date) (unknown) (unknown) Laboratory Results - last 24 hr (units unknown) (unknown) (unknown) (no date) (unknown) (unknown) Labs (units unknown) (unknown) (unknown) (no date) (unknown) (unknown) Labs: (units unknown) (unknown) (unknown) (no date) (unknown) (unknown) Lipase 44 (units unknown) (unknown) (unknown) (no date) (unknown) (unknown) Lymph # (Auto) 1100 (units unknown) (unknown) (unknown) (no date) (unknown) (unknown) Lymph % (Auto) 13.3 L (units unknown) (unknown) (unknown) (no date) (unknown) (unknown) MCH 29.9 (units unknown) (unknown) (unknown) (no date) (unknown) (unknown) MCHC 34.0 (units unknown) (unknown) (unknown) (no date) (unknown) (unknown) MCV 87.9 (units unknown) (unknown) (unknown) (no date) (unknown) (unknown) Medical History (units unknown) (unknown) (unknown) (no date) (unknown) (unknown) Medication Instructions Recorded Confirmed Type (units unknown) (unknown) (unknown) (no date) (unknown) (unknown) Meds (units unknown) (unknown) (unknown) (no date) (unknown) (unknown) [place] # (Auto) 400 (units unknown) (unknown) (unknown) (no date) (unknown) (unknown) [place] % (Auto) 5.4 (units unknown) (unknown) (unknown) (no date) (unknown) (unknown) Narrative (units unknown) (unknown) (unknown) (no date) (unknown) (unknown) Narrative: (units unknown) (unknown) (unknown) (no date) (unknown) (unknown) Neut # (Auto) 6300 (units unknown) (unknown) (unknown) (no date) (unknown) (unknown) Neut % (Auto) 78.0 H (units unknown) (unknown) (unknown) (no date) (unknown) (unknown) No Known Drug Allergies Allergy Verified 09/29/22 12:10 (units unknown) (unknown) (unknown) (no date) (unknown) (unknown) Objective (units unknown) (unknown) (unknown) (no date) (unknown) (unknown) On physical exam patient is alert and oriented x3 in no apparent distress. 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 Due to this fact, patient (units unknown) (unknown) (unknown) (no date) (unknown) (unknown) Patient: Barbara Garcia MR#: [id number] (units unknown) (unknown) (unknown) (no date) (unknown) (unknown) Plt Count 315 (units unknown) (unknown) (unknown) (no date) (unknown) (unknown) Potassium 3.5 (units unknown) (unknown) (unknown) (no date) (unknown) (unknown) Pre-operative Note (units unknown) (unknown) (unknown) (no date) (unknown) (unknown) Provider: Jorge Aviles MD (units unknown) (unknown) (unknown) (no date) (unknown) (unknown) Pulse Oximetry 100 9 9 95 (units unknown) (unknown) (unknown) (no date) (unknown) (unknown) Pulse Oximetry 94 (units unknown) (unknown) (unknown) (no date) (unknown) (unknown) Pulse Rate 62 67 79 (units unknown) (unknown) (unknown) (no date) (unknown) (unknown) Pulse Rate 65 (units unknown) (unknown) (unknown) (no date) (unknown) (unknown) RBC 3.53 L (units unknown) (unknown) (unknown) (no date) (unknown) (unknown) RDW 14.4 (units unknown) (unknown) (unknown) (no date) (unknown) (unknown) Respiratory Rate 18 18 18 (units unknown) (unknown) (unknown) (no date) (unknown) (unknown) Respiratory Rate 18 (units unknown) (unknown) (unknown) (no date) (unknown) (unknown) SARS-CoV-2 (PCR) Negative (units unknown) (unknown) (unknown) (no date) (unknown) (unknown) Seasonal allergies (units unknown) (unknown) (unknown) (no date) (unknown) (unknown) Signed By:<Electronically signed by Jorge Aviles MD> (units unknown) (unknown) (unknown) (no date) (unknown) (unknown) Smoking Status: [place]enc[place] rubin smoker (units unknown) (unknown) (unknown) (no date) (unknown) (unknown) Social History (units unknown) (unknown) (unknown) (no date) (unknown) (unknown) Sodium 140 (units unknown) (unknown) (unknown) (no date) (unknown) (unknown) Surgical History (units unknown) (unknown) (unknown) (no date) (unknown) (unknown) Temperature 98.6 F (units unknown) (unknown) (unknown) (no date) (unknown) (unknown) Temperature (units unknown) (unknown) (unknown) (no date) (unknown) (unknown) The risk, benefits, alternatives, possible complications, operative course, and (units unknown) (unknown) (unknown) (no date) (unknown) (unknown) Time Patient Seen: 15:41 (units unknown) (unknown) (unknown) (no date) (unknown) (unknown) Total Bilirubin 0.4 (units unknown) (unknown) (unknown) (no date) (unknown) (unknown) Total Protein 6.4 (units unknown) (unknown) (unknown) (no date) (unknown) (unknown) Vital Signs (units unknown) (unknown) (unknown) (no date) (unknown) (unknown) WBC 8.0 (units unknown) (unknown) (unknown) (no date) (unknown) (unknown) [Embedded Image Not Available] (units unknown) (unknown) (unknown) (no date) (unknown) (unknown) acetaminophen 325 mg tablet 650 mg PO Q6H PRN fever or pain 09/15/22 09/27/22 Rx (units unknown) (unknown) (unknown) (no date) (unknown) (unknown) ago sustained a dislocation of that hip earlier this morning. Patient had the (units unknown) (unknown) (unknown) (no date) (unknown) (unknown) alcohol intake: current (units unknown) (unknown) (unknown) (no date) (unknown) (unknown) allergies (units unknown) (unknown) (unknown) (no date) (unknown) (unknown) amount of shortening of the left leg. Able to dorsiflex and plantar flex toes (units unknown) (unknown) (unknown) (no date) (unknown) (unknown) and ankle. Has palpable pedal pulses. Compartments are soft. No sign of any (units unknown) (unknown) (unknown) (no date) (unknown) (unknown) anesthesia of the le ft hip. Patient will be admitted overnight and if (units unknown) (unknown) (unknown) (no date) (unknown) (unknown) aspirin 81 mg tablet,delayed 81 mg PO BID 6 weeks #84 tabs 09/15/22 09/27/22 Rx (units unknown) (unknown) (unknown) (no date) (unknown) (unknown) aspirin-acetaminophe n- caffeine 250 1 - 2 tab PO BID 08/13/22 09/27/22 History (units unknown) (unknown) (unknown) (no date) (unknown) (unknown) atorvastatin 20 mg tablet 20 mg PO BEDTIME 08/13/22 09/27/22 History (units unknown) (unknown) (unknown) (no date) (unknown) (unknown) bicarbonate 1.1 gram capsule (units unknown) (unknown) (unknown) (no date) (unknown) (unknown) bleeding, infection, fracture, nerve injury, continued pain postoperatively or (units unknown) (unknown) (unknown) (no date) (unknown) (unknown) caps (units unknown) (unknown) (unknown) (no date) (unknown) (unknown) cetirizine 10 mg tablet (Zyrtec) 10 mg PO DAILY PRN Seasonal 08/13/22 09/27/22 (units unknown) (unknown) (unknown) (no date) (unknown) (unknown) comfortable enough c an be discharged home the next day. (units unknown) (unknown) (unknown) (no date) (unknown) (unknown) complications with excessive bleeding, vascular events or cardiac events and (units unknown) (unknown) (unknown) (no date) (unknown) (unknown) docusate sodium 100 mg capsule 100 mg PO BID PRN constipation #30 04/08/23 (units unknown) (unknown) (unknown) (no date) (unknown) (unknown) escitalopram oxalate 20 mg tablet 20 mg PO DAILY 08/13/22 09/27/22 History (units unknown) (unknown) (unknown) (no date) (unknown) (unknown) fracture. An attempt at reduction was done in the emergency room which was (units unknown) (unknown) (unknown) (no date) (unknown) (unknown) having much pain in regards to the left hip. On physical exam just a mild (units unknown) (unknown) (unknown) (no date) (unknown) (unknown) her left hip. On thi s episode patient was just standing went to turn and felt (units unknown) (unknown) (unknown) (no date) (unknown) (unknown) household members: spouse (units unknown) (unknown) (unknown) (no date) (unknown) (unknown) ibuprofen 400 mg tablet 400 mg PO Q4H PRN 09/15/22 09/27/22 Rx (units unknown) (unknown) (unknown) (no date) (unknown) (unknown) in detail. Patient acknowledges understanding and elects to proceed with (units unknown) (unknown) (unknown) (no date) (unknown) (unknown) including but not limited to deep venous thrombosis event, anesthesia (units unknown) (unknown) (unknown) (no date) (unknown) (unknown) instability postoperatively were discussed in detail. Medical complications (units unknown) (unknown) (unknown) (no date) (unknown) (unknown) knee or ankle swelli ng instability. (units unknown) (unknown) (unknown) (no date) (unknown) (unknown) mg-250 mg-65 mg tabl et (Excedrin (units unknown) (unknown) (unknown) (no date) (unknown) (unknown) omeprazole 20 mg-sodium 1 cap PO DAILY PRN GI Upset 08/13/22 09/27/22 History (units unknown) (unknown) (unknown) (no date) (unknown) (unknown) other possible complications were discussed in detail. Need for postoperative (units unknown) (unknown) (unknown) (no date) (unknown) (unknown) postop outcomes were discussed. Complications including but not limiting to (units unknown) (unknown) (unknown) (no date) (unknown) (unknown) rehabilitation and anticipated hospital stay and clinical course were discussed (units unknown) (unknown) (unknown) (no date) (unknown) (unknown) release (units unknown) (unknown) (unknown) (no date) (unknown) (unknown) room where x-rays we re obtained showing anterior dislocation of the left hip (units unknown) (unknown) (unknown) (no date) (unknown) (unknown) same injury on the when she was getting up from the toilet and dislocated (units unknown) (unknown) (unknown) (no date) (unknown) (unknown) solifenacin 10 mg tablet (Vesicare) 10 mg PO DAILY 08/13/22 09/27/22 History (units unknown) (unknown) (unknown) (no date) (unknown) (unknown) surgery. (units unknown) (unknown) (unknown) (no date) (unknown) (unknown) the hip pop out of joint. Due to the injury patient was seen in the emergency (units unknown) (unknown) (unknown) (no date) (unknown) (unknown) unsuccessful. (units unknown) (unknown) (unknown) (no date) (unknown) (unknown) will be taken to the operating room for a closed reduction under general (units unknown) (unknown) Result panel 1327 (unknown) (no date) (unknown) (unknown) (no value) (units unknown) (unknown) (unknown) (no date) (unknown) (unknown) 09/29/22 (units unknown) (unknown) (unknown) (no date) (unknown) (unknown) [address] [place] [address] (units unknown) (unknown) (unknown) (no date) (unknown) (unknown) [id number] (units unknown) (unknown) (unknown) (no date) (unknown) (unknown) Accession Number: [id number] (units unknown) (unknown) (unknown) (no date) (unknown) (unknown) Age/Sex: 72 / F Date of Service: (units unknown) (unknown) (unknown) (no date) (unknown) (unknown) [place] [id number] (units unknown) (unknown) (unknown) (no date) (unknown) (unknown) Approved by: Parish Demarco M.D. on 09/29/2022 at 16:01 (units unknown) (unknown) (unknown) (no date) (unknown) (unknown) COMPARISON: [facility], CR, XR HIP W PEL IF DONE LT 2V, 09/29/2022, 11:47. (units unknown) (unknown) (unknown) (no date) (unknown) (unknown) : 1950 Acct:[id number] (units unknown) (unknown) (unknown) (no date) (unknown) (unknown) FINDINGS: (units unknown) (unknown) (unknown) (no date) (unknown) (unknown) IMPRESSION: Left hip arthroplasty in good alignment. Previous dislocation has (units unknown) (unknown) (unknown) (no date) (unknown) (unknown) INDICATIONS: POST REDUCTION (units unknown) (unknown) (unknown) (no date) (unknown) (unknown) [facility] (units unknown) (unknown) (unknown) (no date) (unknown) (unknown) Loc: AC 210-1 (units unknown) (unknown) (unknown) (no date) (unknown) (unknown) Ordering Provider: Jorge Aviles MD (units unknown) (unknown) (unknown) (no date) (unknown) (unknown) PROCEDURE: XR HIP LT 1V (units unknown) (unknown) (unknown) (no date) (unknown) (unknown) Patient: Barbara Garcia MR#: [id number] (units unknown) (unknown) (unknown) (no date) (unknown) (unknown) Procedure: XR hip LT 1V (units unknown) (unknown) (unknown) (no date) (unknown) (unknown) Signed (units unknown) (unknown) (unknown) (no date) (unknown) (unknown) Single low resolutio n fluoroscopic spot films shows left total hip arthroplasty (units unknown) (unknown) (unknown) (no date) (unknown) (unknown) TECHNIQUE: Single fluoroscopic spot film (units unknown) (unknown) (unknown) (no date) (unknown) (unknown) XRay Report (units unknown) (unknown) (unknown) (no date) (unknown) (unknown) appropriate alignment (units unknown) (unknown) (unknown) (no date) (unknown) (unknown) been (units unknown) (unknown) (unknown) (no date) (unknown) (unknown) in (units unknown) (unknown) (unknown) (no date) (unknown) (unknown) reduced (units unknown) (unknown) Result panel 1328 (unknown) (no date) (unknown) (unknown) (no value) (units unknown) (unknown) (unknown) (no date) (unknown) (unknown) 09/29/22 1615 (units unknown) (unknown) (unknown) (no date) (unknown) (unknown) 3151 (units unknown) (unknown) (unknown) (no date) (unknown) (unknown) Age/Sex: 72 / F (units unknown) (unknown) (unknown) (no date) (unknown) (unknown) Anesthesia Type: General (units unknown) (unknown) (unknown) (no date) (unknown) (unknown) Anterior dislocation of a left total hip with no sign of any fracture or (units unknown) (unknown) (unknown) (no date) (unknown) (unknown) Click Yes if Unassisted: Yes (units unknown) (unknown) (unknown) (no date) (unknown) (unknown) Closed reduction of a left hip dislocation (units unknown) (unknown) (unknown) (no date) (unknown) (unknown) Closure Type: not applicable (units unknown) (unknown) (unknown) (no date) (unknown) (unknown) Complications: none (units unknown) (unknown) (unknown) (no date) (unknown) (unknown) Condition: stable (units unknown) (unknown) (unknown) (no date) (unknown) (unknown) : 1950 Acct:[id number] (units unknown) (unknown) (unknown) (no date) (unknown) (unknown) Date of Service: 09/29/22 (units unknown) (unknown) (unknown) (no date) (unknown) (unknown) Date of procedure: 09/29/22 (units unknown) (unknown) (unknown) (no date) (unknown) (unknown) Disposition: Acute Care (units unknown) (unknown) (unknown) (no date) (unknown) (unknown) Findings: (units unknown) (unknown) (unknown) (no date) (unknown) (unknown) Indications: (units unknown) (unknown) (unknown) (no date) (unknown) (unknown) [address] [address] (units unknown) (unknown) (unknown) (no date) (unknown) (unknown) Left hip dislocation (units unknown) (unknown) (unknown) (no date) (unknown) (unknown) On date of service, patient was taken back to the operating theater and placed (units unknown) (unknown) (unknown) (no date) (unknown) (unknown) Operative Date/Time/Diagnoses (units unknown) (unknown) (unknown) (no date) (unknown) (unknown) Operative Note (units unknown) (unknown) (unknown) (no date) (unknown) (unknown) Operative Notes (units unknown) (unknown) (unknown) (no date) (unknown) (unknown) Patient can be discharged home tomorrow. (units unknown) (unknown) (unknown) (no date) (unknown) (unknown) Patient: Barbara Garcia MR#: [id number] (units unknown) (unknown) (unknown) (no date) (unknown) (unknown) Plan for aftercare: (units unknown) (unknown) (unknown) (no date) (unknown) (unknown) Post-op diagnosis: same (units unknown) (unknown) (unknown) (no date) (unknown) (unknown) Post-operative (units unknown) (unknown) (unknown) (no date) (unknown) (unknown) Pre-op diagnosis: Status post left total hip with anterior dislocation (units unknown) (unknown) (unknown) (no date) (unknown) (unknown) Procedure + Clinicians (units unknown) (unknown) (unknown) (no date) (unknown) (unknown) Procedure in detail: (units unknown) (unknown) (unknown) (no date) (unknown) (unknown) Procedure: (units unknown) (unknown) (unknown) (no date) (unknown) (unknown) Provider: Jorge Aviles MD (units unknown) (unknown) (unknown) (no date) (unknown) (unknown) Same procedure as scheduled: Yes (units unknown) (unknown) (unknown) (no date) (unknown) (unknown) Signed By:<Electronically signed by Jorge Aviles MD> (units unknown) (unknown) (unknown) (no date) (unknown) (unknown) Surgeon: Jorge Aviles (units unknown) (unknown) (unknown) (no date) (unknown) (unknown) Time of procedure: 16:12 (units unknown) (unknown) (unknown) (no date) (unknown) (unknown) abduction pillow was placed and patient was taken to the PACU in stable (units unknown) (unknown) (unknown) (no date) (unknown) (unknown) adequate relaxation traction was placed along the left lower leg and the hip (units unknown) (unknown) (unknown) (no date) (unknown) (unknown) closed procedure no antibiotics were given. General anesthetic as well as (units unknown) (unknown) (unknown) (no date) (unknown) (unknown) condition. (units unknown) (unknown) (unknown) (no date) (unknown) (unknown) loosening of implants. (units unknown) (unknown) (unknown) (no date) (unknown) (unknown) muscle relaxation wa s provided by the anesthesiologist. Once the patient had (units unknown) (unknown) (unknown) (no date) (unknown) (unknown) on the operating tab le in a supine position. Due to the fact that this was a (units unknown) (unknown) (unknown) (no date) (unknown) (unknown) very easily reduced back in place. C-arm was used to verify reduction. An (units unknown) (unknown) Result panel 1329 (unknown) (no date) (unknown) (unknown) (no value) (units unknown) (unknown) (unknown) (no date) (unknown) (unknown) (past 8 hours): (units unknown) (unknown) (unknown) (no date) (unknown) (unknown) 09/29/22 09/29/22 09/29/22 (units unknown) (unknown) (unknown) (no date) (unknown) (unknown) 09/29/22 12:25 (units unknown) (unknown) (unknown) (no date) (unknown) (unknown) 09/30/22 1015 (units unknown) (unknown) (unknown) (no date) (unknown) (unknown) 09/30/22 (units unknown) (unknown) (unknown) (no date) (unknown) (unknown) 04:16 09/30/22 (units unknown) (unknown) (unknown) (no date) (unknown) (unknown) 08:00 (units unknown) (unknown) (unknown) (no date) (unknown) (unknown) 12:25 12:25 12:47 (units unknown) (unknown) (unknown) (no date) (unknown) (unknown) 3151 (units unknown) (unknown) (unknown) (no date) (unknown) (unknown) ALT 21 (units unknown) (unknown) (unknown) (no date) (unknown) (unknown) AST 37 H (units unknown) (unknown) (unknown) (no date) (unknown) (unknown) Actual Procedure [place] e Surgeon (units unknown) (unknown) (unknown) (no date) (unknown) (unknown) Age/Sex: 72 / F (units unknown) (unknown) (unknown) (no date) (unknown) (unknown) Albumin 3.7 (units unknown) (unknown) (unknown) (no date) (unknown) (unknown) Albumin/Globulin Rat io 1.4 (units unknown) (unknown) (unknown) (no date) (unknown) (unknown) Alkaline Phosphatase 89 (units unknown) (unknown) (unknown) (no date) (unknown) (unknown) Assessment + Plan Post-op (units unknown) (unknown) (unknown) (no date) (unknown) (unknown) BUN 15 (units unknown) (unknown) (unknown) (no date) (unknown) (unknown) BUN/Creatinine Ratio 13.2 (units unknown) (unknown) (unknown) (no date) (unknown) (unknown) Baso # (Auto) 0 (units unknown) (unknown) (unknown) (no date) (unknown) (unknown) Baso % (Auto) 0.6 (units unknown) (unknown) (unknown) (no date) (unknown) (unknown) Blood Pressure 132/6 2 139/73 (units unknown) (unknown) (unknown) (no date) (unknown) (unknown) Calcium 8.8 (units unknown) (unknown) (unknown) (no date) (unknown) (unknown) Carbon Dioxide 29 (units unknown) (unknown) (unknown) (no date) (unknown) (unknown) Chloride 105 (units unknown) (unknown) (unknown) (no date) (unknown) (unknown) Creatinine 1.14 H (units unknown) (unknown) (unknown) (no date) (unknown) (unknown) : 1950 Acct:[id number] (units unknown) (unknown) (unknown) (no date) (unknown) (unknown) Date of Service: 09/29/22 (units unknown) (unknown) (unknown) (no date) (unknown) (unknown) Deep Vein Thrombosis/Pulmonary Embolism Present on Admission: No (units unknown) (unknown) (unknown) (no date) (unknown) (unknown) Depression (units unknown) (unknown) (unknown) (no date) (unknown) (unknown) Diverticulitis (units unknown) (unknown) (unknown) (no date) (unknown) (unknown) Eos # (Auto) 200 (units unknown) (unknown) (unknown) (no date) (unknown) (unknown) Eos % (Auto) 2.7 (units unknown) (unknown) (unknown) (no date) (unknown) (unknown) Estimated GFR 51 L (units unknown) (unknown) (unknown) (no date) (unknown) (unknown) Exam Narrative: (units unknown) (unknown) (unknown) (no date) (unknown) (unknown) Exam (units unknown) (unknown) (unknown) (no date) (unknown) (unknown) GERD (gastroesophage al reflux disease) (units unknown) (unknown) (unknown) (no date) (unknown) (unknown) Globulin 2.7 (units unknown) (unknown) (unknown) (no date) (unknown) (unknown) Glucose 106 (units unknown) (unknown) (unknown) (no date) (unknown) (unknown) HLD (hyperlipidemia) (units unknown) (unknown) (unknown) (no date) (unknown) (unknown) Hct 31.1 L (units unknown) (unknown) (unknown) (no date) (unknown) (unknown) Hearing impaired (units unknown) (unknown) (unknown) (no date) (unknown) (unknown) Hgb 10.6 L (units unknown) (unknown) (unknown) (no date) (unknown) (unknown) History of bladder surgery (units unknown) (unknown) (unknown) (no date) (unknown) (unknown) History of total lef t knee replacement (units unknown) (unknown) (unknown) (no date) (unknown) (unknown) History of total rig ht knee replacement (units unknown) (unknown) (unknown) (no date) (unknown) (unknown) Hx of left breast biopsy (units unknown) (unknown) (unknown) (no date) (unknown) (unknown) Hx of right breast biopsy (units unknown) (unknown) (unknown) (no date) (unknown) (unknown) Hx of tonsillectomy (units unknown) (unknown) (unknown) (no date) (unknown) (unknown) Interval history: (units unknown) (unknown) (unknown) (no date) (unknown) (unknown) [address] [address] (units unknown) (unknown) (unknown) (no date) (unknown) (unknown) Laboratory Results - last 24 hr (units unknown) (unknown) (unknown) (no date) (unknown) (unknown) Labs (units unknown) (unknown) (unknown) (no date) (unknown) (unknown) Labs: (units unknown) (unknown) (unknown) (no date) (unknown) (unknown) Lipase 44 (units unknown) (unknown) (unknown) (no date) (unknown) (unknown) Lymph # (Auto) 1100 (units unknown) (unknown) (unknown) (no date) (unknown) (unknown) Lymph % (Auto) 13.3 L (units unknown) (unknown) (unknown) (no date) (unknown) (unknown) MCH 29.9 (units unknown) (unknown) (unknown) (no date) (unknown) (unknown) MCHC 34.0 (units unknown) (unknown) (unknown) (no date) (unknown) (unknown) MCV 87.9 (units unknown) (unknown) (unknown) (no date) (unknown) (unknown) Medical History (units unknown) (unknown) (unknown) (no date) (unknown) (unknown) [place] # (Auto) 400 (units unknown) (unknown) (unknown) (no date) (unknown) (unknown) [place] % (Auto) 5.4 (units unknown) (unknown) (unknown) (no date) (unknown) (unknown) Narrative (units unknown) (unknown) (unknown) (no date) (unknown) (unknown) Neut # (Auto) 6300 (units unknown) (unknown) (unknown) (no date) (unknown) (unknown) Neut % (Auto) 78.0 H (units unknown) (unknown) (unknown) (no date) (unknown) (unknown) No sign of any repea t dislocation. Positive dorsiflexion and plantar flexion of (units unknown) (unknown) (unknown) (no date) (unknown) (unknown) Objective (units unknown) (unknown) (unknown) (no date) (unknown) (unknown) Operation Date: 09/29/22 16:00 (units unknown) (unknown) (unknown) (no date) (unknown) (unknown) Osteoarthritis (units unknown) (unknown) (unknown) (no date) (unknown) (unknown) Oxygen Delivery Meth od Nasal Cannula (units unknown) (unknown) (unknown) (no date) (unknown) (unknown) Oxygen Flow Rate 0 (units unknown) (unknown) (unknown) (no date) (unknown) (unknown) Oxygen Flow Rate 2 0 (units unknown) (unknown) (unknown) (no date) (unknown) (unknown) PFSH (units unknown) (unknown) (unknown) (no date) (unknown) (unknown) Patient is status po st reduction of a left total hip arthroplasty. Patient is (units unknown) (unknown) (unknown) (no date) (unknown) (unknown) Patient: Barbara Garcia MR#: [id number] (units unknown) (unknown) (unknown) (no date) (unknown) (unknown) Plt Count 315 (units unknown) (unknown) (unknown) (no date) (unknown) (unknown) Postoperative day: 1 (units unknown) (unknown) (unknown) (no date) (unknown) (unknown) Postoperative plan: discharge (units unknown) (unknown) (unknown) (no date) (unknown) (unknown) Postoperative status narrative: Patient doing well be discharged home after (units unknown) (unknown) (unknown) (no date) (unknown) (unknown) Postoperative status : doing well (units unknown) (unknown) (unknown) (no date) (unknown) (unknown) Postoperative (units unknown) (unknown) (unknown) (no date) (unknown) (unknown) Potassium 3.5 (units unknown) (unknown) (unknown) (no date) (unknown) (unknown) Procedures (units unknown) (unknown) (unknown) (no date) (unknown) (unknown) Procedures: (units unknown) (unknown) (unknown) (no date) (unknown) (unknown) Progress Note (units unknown) (unknown) (unknown) (no date) (unknown) (unknown) Provider: Jorge Aviles MD (units unknown) (unknown) (unknown) (no date) (unknown) (unknown) Pulse Oximetry 97 97 (units unknown) (unknown) (unknown) (no date) (unknown) (unknown) Pulse Rate 66 66 (units unknown) (unknown) (unknown) (no date) (unknown) (unknown) Quality (units unknown) (unknown) (unknown) (no date) (unknown) (unknown) RBC 3.53 L (units unknown) (unknown) (unknown) (no date) (unknown) (unknown) RDW 14.4 (units unknown) (unknown) (unknown) (no date) (unknown) (unknown) Respiratory Rate 20 18 (units unknown) (unknown) (unknown) (no date) (unknown) (unknown) SARS-CoV-2 (PCR) Negative (units unknown) (unknown) (unknown) (no date) (unknown) (unknown) Seasonal allergies (units unknown) (unknown) (unknown) (no date) (unknown) (unknown) Signed By:<Electronically signed by Jorge Aviles MD> (units unknown) (unknown) (unknown) (no date) (unknown) (unknown) Smoking Status: Carmencita rubin smoker (units unknown) (unknown) (unknown) (no date) (unknown) (unknown) Social History (units unknown) (unknown) (unknown) (no date) (unknown) (unknown) Sodium 140 (units unknown) (unknown) (unknown) (no date) (unknown) (unknown) Subjective (units unknown) (unknown) (unknown) (no date) (unknown) (unknown) Surgical History (units unknown) (unknown) (unknown) (no date) (unknown) (unknown) Temperature 97.3 F L 98.6 F (units unknown) (unknown) (unknown) (no date) (unknown) (unknown) Total Bilirubin 0.4 (units unknown) (unknown) (unknown) (no date) (unknown) (unknown) Total Protein 6.4 (units unknown) (unknown) (unknown) (no date) (unknown) (unknown) VTE (units unknown) (unknown) (unknown) (no date) (unknown) (unknown) Vital Signs (units unknown) (unknown) (unknown) (no date) (unknown) (unknown) WBC 8.0 (units unknown) (unknown) (unknown) (no date) (unknown) (unknown) [Embedded Image Not Available] (units unknown) (unknown) (unknown) (no date) (unknown) (unknown) alcohol intake: current (units unknown) (unknown) (unknown) (no date) (unknown) (unknown) doing well with no pain or discomfort. (units unknown) (unknown) (unknown) (no date) (unknown) (unknown) household members: spouse (units unknown) (unknown) (unknown) (no date) (unknown) (unknown) p Closed Reduction Dislocated Hip Left Jorge Aviles MD (units unknown) (unknown) (unknown) (no date) (unknown) (unknown) physical therapy. (units unknown) (unknown) (unknown) (no date) (unknown) (unknown) the toes and ankle. Palpable pedal pulses. Brisk cap refill. (units unknown) (unknown) Result panel 1330 (unknown) (no date) (unknown) (unknown) (no value) (units unknown) (unknown) (unknown) (no date) (unknown) (unknown) 10/02/22 (units unknown) (unknown) (unknown) (no date) (unknown) (unknown) 1. Dislocation of th e left hip prosthesis. (units unknown) (unknown) (unknown) (no date) (unknown) (unknown) [address] [place] [address] (units unknown) (unknown) (unknown) (no date) (unknown) (unknown) 2. Suspect Malini prosthesis fracture of the left greater trochanter. (units unknown) (unknown) (unknown) (no date) (unknown) (unknown) 09/29/2022, 11:47. (units unknown) (unknown) (unknown) (no date) (unknown) (unknown) [id number] (units unknown) (unknown) (unknown) (no date) (unknown) (unknown) Accession Number: [id number] (units unknown) (unknown) (unknown) (no date) (unknown) (unknown) Age/Sex: 72 / F Date of Service: (units unknown) (unknown) (unknown) (no date) (unknown) (unknown) [place]AN [place] [id number] (units unknown) (unknown) (unknown) (no date) (unknown) (unknown) Approved by: Misty Cabrera M.D. on 10/02/2022 at 19:00 (units unknown) (unknown) (unknown) (no date) (unknown) (unknown) Bones: There is left hip arthroplasty. There is dislocation of the left (units unknown) (unknown) (unknown) (no date) (unknown) (unknown) COMPARISON: [facility], CR, XR HIP W PEL IF DONE LT 2V, 09/27/2022, 19:35. (units unknown) (unknown) (unknown) (no date) (unknown) (unknown) CR, XR HIP (units unknown) (unknown) (unknown) (no date) (unknown) (unknown) : 1950 Acct:[id number] (units unknown) (unknown) (unknown) (no date) (unknown) (unknown) DONE LT 2V, (units unknown) (unknown) (unknown) (no date) (unknown) (unknown) Dictated by: Misty Cabrera M.D. on 10/02/2022 at 18:58 (units unknown) (unknown) (unknown) (no date) (unknown) (unknown) FINDINGS: (units unknown) (unknown) (unknown) (no date) (unknown) (unknown) Hospital, CR, XR HIP W PEL IF DONE LT 2V, 09/27/2022, 16:33. [facility], (units unknown) (unknown) (unknown) (no date) (unknown) (unknown) IMPRESSION: (units unknown) (unknown) (unknown) (no date) (unknown) (unknown) INDICATIONS: eval fo r dislocation (units unknown) (unknown) (unknown) (no date) (unknown) (unknown) [facility] (units unknown) (unknown) (unknown) (no date) (unknown) (unknown) [place] (units unknown) (unknown) (unknown) (no date) (unknown) (unknown) Loc: ED (units unknown) (unknown) (unknown) (no date) (unknown) (unknown) Ordering Provider: Sagar Sheriff D.O. (units unknown) (unknown) (unknown) (no date) (unknown) (unknown) PROCEDURE: XR HIP W PEL IF DONE LT 2V (units unknown) (unknown) (unknown) (no date) (unknown) (unknown) Patient: Barbara Garcia MR#: [id number] (units unknown) (unknown) (unknown) (no date) (unknown) (unknown) Procedure: XR hip w pel if done LT 2V (units unknown) (unknown) (unknown) (no date) (unknown) (unknown) Signed (units unknown) (unknown) (unknown) (no date) (unknown) (unknown) Soft tissues: Overlying postoperative changes are noted. No suspicious soft (units unknown) (unknown) (unknown) (no date) (unknown) (unknown) TECHNIQUE: AP pelvis and lateral view of the left hip acquired. (units unknown) (unknown) (unknown) (no date) (unknown) (unknown) W PEL IF DONE LT 2V, 09/27/2022, 15:02. [facility], CR, XR HIP W PEL IF (units unknown) (unknown) (unknown) (no date) (unknown) (unknown) XRay Report (units unknown) (unknown) (unknown) (no date) (unknown) (unknown) densities. (units unknown) (unknown) (unknown) (no date) (unknown) (unknown) femoral head (units unknown) (unknown) (unknown) (no date) (unknown) (unknown) from the prosthetic acetabulum cup. Suspect periprosthesis fracture involving (units unknown) (unknown) (unknown) (no date) (unknown) (unknown) greater trochanter. The visualized bony structures appear intact. (units unknown) (unknown) (unknown) (no date) (unknown) (unknown) the (units unknown) (unknown) (unknown) (no date) (unknown) (unknown) tissue (units unknown) (unknown) Result panel 1331 (unknown) (no date) (unknown) (unknown) (no value) (units unknown) (unknown) (unknown) (no date) (unknown) (unknown) #90 tabs (units unknown) (unknown) (unknown) (no date) (unknown) (unknown) (Vistaril) caps (units unknown) (unknown) (unknown) (no date) (unknown) (unknown) (Zegerid) (units unknown) (unknown) (unknown) (no date) (unknown) (unknown) 10/02/22 18:05 (units unknown) (unknown) (unknown) (no date) (unknown) (unknown) 10/02/22 18:27 (units unknown) (unknown) (unknown) (no date) (unknown) (unknown) 10/02/22 (units unknown) (unknown) (unknown) (no date) (unknown) (unknown) 0RF (units unknown) (unknown) (unknown) (no date) (unknown) (unknown) 1 - 2 tab PO BID (units unknown) (unknown) (unknown) (no date) (unknown) (unknown) 1 cap PO DAILY PRN (Reason: GI Upset) (units unknown) (unknown) (unknown) (no date) (unknown) (unknown) 10 mg PO DAILY PRN (Reason: Seasonal allergies) (units unknown) (unknown) (unknown) (no date) (unknown) (unknown) 10 mg PO DAILY (units unknown) (unknown) (unknown) (no date) (unknown) (unknown) 100 mg PO BID PRN (Reason: constipation) Qty: 30 0RF (units unknown) (unknown) (unknown) (no date) (unknown) (unknown) 18:05 (units unknown) (unknown) (unknown) (no date) (unknown) (unknown) 20 mg PO BEDTIME (units unknown) (unknown) (unknown) (no date) (unknown) (unknown) 20 mg PO DAILY (units unknown) (unknown) (unknown) (no date) (unknown) (unknown) 25 mg PO TID-QID PRN (Reason: itching) Qty: 60 0RF (units unknown) (unknown) (unknown) (no date) (unknown) (unknown) 3151 (units unknown) (unknown) (unknown) (no date) (unknown) (unknown) 400 mg PO Q4H MDD Ma x 2400 mg per day PRN (Reason: Pain/inflammation) Qty: 90 (units unknown) (unknown) (unknown) (no date) (unknown) (unknown) 650 mg PO Q6H MDD Ma x 3000 mg per day PRN (Reason: fever or pain) Qty: 90 0RF (units unknown) (unknown) (unknown) (no date) (unknown) (unknown) 81 mg PO BID 42 Days Qty: 84 0RF (units unknown) (unknown) (unknown) (no date) (unknown) (unknown) Age/Sex: 72 / F (units unknown) (unknown) (unknown) (no date) (unknown) (unknown) Allergies (units unknown) (unknown) (unknown) (no date) (unknown) (unknown) Allergy/AdvReac Type Severity Reaction Status Date / Time (units unknown) (unknown) (unknown) (no date) (unknown) (unknown) Basic Metabolic Pane l Stat (units unknown) (unknown) (unknown) (no date) (unknown) (unknown) Blood Pressure 131/6 2 10/02/22 18:05 (units unknown) (unknown) (unknown) (no date) (unknown) (unknown) Blood Pressure 131/62 (units unknown) (unknown) (unknown) (no date) (unknown) (unknown) COVID19 -Nasal RAPID Stat (units unknown) (unknown) (unknown) (no date) (unknown) (unknown) Chief complaint: Extremity Problem,Nontraumatic (units unknown) (unknown) (unknown) (no date) (unknown) (unknown) Complete Blood Count AUTO DIFF Stat (units unknown) (unknown) (unknown) (no date) (unknown) (unknown) Course (units unknown) (unknown) (unknown) (no date) (unknown) (unknown) : 1950 Acct:[id number] (units unknown) (unknown) (unknown) (no date) (unknown) (unknown) Date of Service: 10/02/22 (units unknown) (unknown) (unknown) (no date) (unknown) (unknown) Departure (units unknown) (unknown) (unknown) (no date) (unknown) (unknown) Depression (units unknown) (unknown) (unknown) (no date) (unknown) (unknown) Discharge Plan (units unknown) (unknown) (unknown) (no date) (unknown) (unknown) Discontinued Medications (units unknown) (unknown) (unknown) (no date) (unknown) (unknown) Diverticulitis (units unknown) (unknown) (unknown) (no date) (unknown) (unknown) ED Orders (units unknown) (unknown) (unknown) (no date) (unknown) (unknown) ER Physician: Sagar Sheriff D.O. (units unknown) (unknown) (unknown) (no date) (unknown) (unknown) Emergency Report (units unknown) (unknown) (unknown) (no date) (unknown) (unknown) Exam (units unknown) (unknown) (unknown) (no date) (unknown) (unknown) Excedrin Extra Strength 250-250-65 mg Tablet (units unknown) (unknown) (unknown) (no date) (unknown) (unknown) Extra Strength) (units unknown) (unknown) (unknown) (no date) (unknown) (unknown) GERD (gastroesophage al reflux disease) (units unknown) (unknown) (unknown) (no date) (unknown) (unknown) General (units unknown) (unknown) (unknown) (no date) (unknown) (unknown) HLD (hyperlipidemia) (units unknown) (unknown) (unknown) (no date) (unknown) (unknown) HPI - Extremity Problem (units unknown) (unknown) (unknown) (no date) (unknown) (unknown) Hearing impaired (units unknown) (unknown) (unknown) (no date) (unknown) (unknown) History of bladder surgery (units unknown) (unknown) (unknown) (no date) (unknown) (unknown) History of total lef t knee replacement (units unknown) (unknown) (unknown) (no date) (unknown) (unknown) History of total rig ht knee replacement (units unknown) (unknown) (unknown) (no date) (unknown) (unknown) Home Medications (units unknown) (unknown) (unknown) (no date) (unknown) (unknown) Hx of left breast biopsy (units unknown) (unknown) (unknown) (no date) (unknown) (unknown) Hx of right breast biopsy (units unknown) (unknown) (unknown) (no date) (unknown) (unknown) Hx of tonsillectomy (units unknown) (unknown) (unknown) (no date) (unknown) (unknown) Hydromorphone HCl (Hydromorphone 0.5 Mg Inj) 0.5 mg IV NOW ONE (units unknown) (unknown) (unknown) (no date) (unknown) (unknown) Initial Vital Signs (units unknown) (unknown) (unknown) (no date) (unknown) (unknown) Initial Vital Signs: (units unknown) (unknown) (unknown) (no date) (unknown) (unknown) [address] [address] (units unknown) (unknown) (unknown) (no date) (unknown) (unknown) Medical History (units unknown) (unknown) (unknown) (no date) (unknown) (unknown) Medication Instructions Recorded Confirmed (units unknown) (unknown) (unknown) (no date) (unknown) (unknown) Medication Instructions Recorded (units unknown) (unknown) (unknown) (no date) (unknown) (unknown) Mode of arrival: Family Vehicle (units unknown) (unknown) (unknown) (no date) (unknown) (unknown) No Action (units unknown) (unknown) (unknown) (no date) (unknown) (unknown) No Known Drug Allergies Allergy Verified 10/02/22 18:28 (units unknown) (unknown) (unknown) (no date) (unknown) (unknown) Ordered: (units unknown) (unknown) (unknown) (no date) (unknown) (unknown) Orders (units unknown) (unknown) (unknown) (no date) (unknown) (unknown) Osteoarthritis (units unknown) (unknown) (unknown) (no date) (unknown) (unknown) Oxygen Delivery Meth od Room Air 10/02/22 18:05 (units unknown) (unknown) (unknown) (no date) (unknown) (unknown) Oxygen Delivery Meth od Room Air (units unknown) (unknown) (unknown) (no date) (unknown) (unknown) Pain/inflammation #9 0 tabs (units unknown) (unknown) (unknown) (no date) (unknown) (unknown) Patient History (units unknown) (unknown) (unknown) (no date) (unknown) (unknown) Patient: Charisma Garciamike sherman MR#: [id number] (units unknown) (unknown) (unknown) (no date) (unknown) (unknown) Prescriptions: (units unknown) (unknown) (unknown) (no date) (unknown) (unknown) Prevent blood clots (units unknown) (unknown) (unknown) (no date) (unknown) (unknown) Previous Rx's (units unknown) (unknown) (unknown) (no date) (unknown) (unknown) Pulse Oximetry 98 10/02/22 18:05 (units unknown) (unknown) (unknown) (no date) (unknown) (unknown) Pulse Oximetry 98 (units unknown) (unknown) (unknown) (no date) (unknown) (unknown) Pulse Rate 64 18:05 (units unknown) (unknown) (unknown) (no date) (unknown) (unknown) Pulse Rate 64 (units unknown) (unknown) (unknown) (no date) (unknown) (unknown) Referrals: (units unknown) (unknown) (unknown) (no date) (unknown) (unknown) Related Data (units unknown) (unknown) (unknown) (no date) (unknown) (unknown) Respiratory Rate 18 10/02/22 18:05 (units unknown) (unknown) (unknown) (no date) (unknown) (unknown) Respiratory Rate 18 (units unknown) (unknown) (unknown) (no date) (unknown) (unknown) Rx Instructions: (units unknown) (unknown) (unknown) (no date) (unknown) (unknown) Seasonal allergies (units unknown) (unknown) (unknown) (no date) (unknown) (unknown) Signed By: (units unknown) (unknown) (unknown) (no date) (unknown) (unknown) Smoking Status: Carmencita rubin smoker (units unknown) (unknown) (unknown) (no date) (unknown) (unknown) Social History (units unknown) (unknown) (unknown) (no date) (unknown) (unknown) Source: patient (units unknown) (unknown) (unknown) (no date) (unknown) (unknown) Stated complaint: L Hip Dislocation (units unknown) (unknown) (unknown) (no date) (unknown) (unknown) Stop: 10/02/22 18:27 (units unknown) (unknown) (unknown) (no date) (unknown) (unknown) Substance Use Type: does not use (units unknown) (unknown) (unknown) (no date) (unknown) (unknown) Surgical History (units unknown) (unknown) (unknown) (no date) (unknown) (unknown) Temperature 97.7 F 10/02/22 18:05 (units unknown) (unknown) (unknown) (no date) (unknown) (unknown) Temperature 97.7 F (units unknown) (unknown) (unknown) (no date) (unknown) (unknown) Time Seen by Provide r: 10/02/22 18:01 (units unknown) (unknown) (unknown) (no date) (unknown) (unknown) Vital Signs - 8 hr (units unknown) (unknown) (unknown) (no date) (unknown) (unknown) Vital Signs (units unknown) (unknown) (unknown) (no date) (unknown) (unknown) Vital signs: (units unknown) (unknown) (unknown) (no date) (unknown) (unknown) XR hip w pel if done LT 2V Stat (units unknown) (unknown) (unknown) (no date) (unknown) (unknown) Maria Teresa Larsen PA-C [Primary Care Provider] (units unknown) (unknown) (unknown) (no date) (unknown) (unknown) acetaminophen 325 mg Tablet (units unknown) (unknown) (unknown) (no date) (unknown) (unknown) acetaminophen 325 mg tablet 650 mg PO Q6H PRN fever or pain 09/15/22 (units unknown) (unknown) (unknown) (no date) (unknown) (unknown) alcohol intake frequency: holidays/special occasions only (units unknown) (unknown) (unknown) (no date) (unknown) (unknown) alcohol intake: current (units unknown) (unknown) (unknown) (no date) (unknown) (unknown) allergies (units unknown) (unknown) (unknown) (no date) (unknown) (unknown) aspirin 81 mg Tablet,Delayed Release (Dr/Ec) (units unknown) (unknown) (unknown) (no date) (unknown) (unknown) aspirin 81 mg tablet,delayed 81 mg PO BID 6 weeks #84 tabs 09/15/22 (units unknown) (unknown) (unknown) (no date) (unknown) (unknown) aspirin-acetaminophe n- caffeine 250 1 - 2 tab PO BID 08/13/22 09/29/22 (units unknown) (unknown) (unknown) (no date) (unknown) (unknown) atorvastatin 20 mg Tablet (units unknown) (unknown) (unknown) (no date) (unknown) (unknown) atorvastatin 20 mg tablet 20 mg PO BEDTIME 08/13/22 09/29/22 (units unknown) (unknown) (unknown) (no date) (unknown) (unknown) bicarbonate 1.1 gram capsule (units unknown) (unknown) (unknown) (no date) (unknown) (unknown) caps (units unknown) (unknown) (unknown) (no date) (unknown) (unknown) cetirizine 10 mg tablet (Zyrtec) 10 mg PO DAILY PRN Seasonal 08/13/22 09/29/22 (units unknown) (unknown) (unknown) (no date) (unknown) (unknown) cetirizine [Zyrtec] 10 mg Tablet (units unknown) (unknown) (unknown) (no date) (unknown) (unknown) docusate sodium 100 mg Capsule (units unknown) (unknown) (unknown) (no date) (unknown) (unknown) docusate sodium 100 mg capsule 100 mg PO BID PRN constipation #30 09/15/22 (units unknown) (unknown) (unknown) (no date) (unknown) (unknown) escitalopram oxalate 20 mg Tablet (units unknown) (unknown) (unknown) (no date) (unknown) (unknown) escitalopram oxalate 20 mg tablet 20 mg PO DAILY 08/13/22 09/29/22 (units unknown) (unknown) (unknown) (no date) (unknown) (unknown) household members: spouse (units unknown) (unknown) (unknown) (no date) (unknown) (unknown) hydroxyzine pamoate 25 mg capsule 25 mg PO TID-QID PRN itching #60 09/30/22 (units unknown) (unknown) (unknown) (no date) (unknown) (unknown) hydroxyzine pamoate [Vistaril] 25 mg capsule (units unknown) (unknown) (unknown) (no date) (unknown) (unknown) ibuprofen 400 mg Tablet (units unknown) (unknown) (unknown) (no date) (unknown) (unknown) ibuprofen 400 mg tablet 400 mg PO Q4H PRN 09/15/22 (units unknown) (unknown) (unknown) (no date) (unknown) (unknown) mg-250 mg-65 mg tabl et (Excedrin (units unknown) (unknown) (unknown) (no date) (unknown) (unknown) omeprazole 20 mg-sodium 1 cap PO DAILY PRN GI Upset 08/13/22 09/29/22 (units unknown) (unknown) (unknown) (no date) (unknown) (unknown) omeprazole-sodium bicarbonate [Zegerid] 20-1.1 mg-gram Capsule (units unknown) (unknown) (unknown) (no date) (unknown) (unknown) release (units unknown) (unknown) (unknown) (no date) (unknown) (unknown) solifenacin 10 mg tablet (Vesicare) 10 mg PO DAILY 08/13/22 09/29/22 (units unknown) (unknown) (unknown) (no date) (unknown) (unknown) solifenacin [Vesicar e] 10 mg Tablet (units unknown) (unknown) Result panel 1332 (unknown) (no date) (unknown) (unknown) 1.1 % (unknown) (unknown) (no date) (unknown) (unknown) 10.0 g/dl (unknown) (unknown) (no date) (unknown) (unknown) 10.1 % (unknown) (unknown) (no date) (unknown) (unknown) 100 /ul (unknown) (unknown) (no date) (unknown) (unknown) 14.5 % (unknown) (unknown) (no date) (unknown) (unknown) 1500 /ul (unknown) (unknown) (no date) (unknown) (unknown) 22.1 % (unknown) (unknown) (no date) (unknown) (unknown) 29.5 % (unknown) (unknown) (no date) (unknown) (unknown) 29.9 pg (unknown) (unknown) (no date) (unknown) (unknown) 3.34 x10 6/ul (unknown) (unknown) (no date) (unknown) (unknown) 322 x10 3/ul (unknown) (unknown) (no date) (unknown) (unknown) 33.8 % (unknown) (unknown) (no date) (unknown) (unknown) 3800 /ul (unknown) (unknown) (no date) (unknown) (unknown) 57.1 % (unknown) (unknown) (no date) (unknown) (unknown) 6.7 x10 3/ul (unknown) (unknown) (no date) (unknown) (unknown) 600 /ul (unknown) (unknown) (no date) (unknown) (unknown) 700 /ul (unknown) (unknown) (no date) (unknown) (unknown) 88.3 fl (unknown) (unknown) (no date) (unknown) (unknown) 9.6 % (unknown) Result panel 1333 (unknown) (no date) (unknown) (unknown) 1.05 mg/dl (unknown) (unknown) (no date) (unknown) (unknown) 103 mmol/l (unknown) (unknown) (no date) (unknown) (unknown) 139 mmol/l (unknown) (unknown) (no date) (unknown) (unknown) 27.6 (units unknown) (unknown) (unknown) (no date) (unknown) (unknown) 29 mg/dl (unknown) (unknown) (no date) (unknown) (unknown) 29 mmol/l (unknown) (unknown) (no date) (unknown) (unknown) 3.6 mmol/l (unknown) (unknown) (no date) (unknown) (unknown) 56 ml/min (unknown) (unknown) (no date) (unknown) (unknown) 56 ml/min (unknown) (unknown) (no date) (unknown) (unknown) 8.4 mg/dl (unknown) (unknown) (no date) (unknown) (unknown) 93 mg/dl (unknown) (unknown) (no date) (unknown) (unknown) 93 mg/dl (unknown) Result panel 1334 (unknown) (no date) (unknown) (unknown) Negative (units unknown) (unknown) (unknown) (no date) (unknown) (unknown) Negative (units unknown) (unknown) Result panel 1335 (unknown) (no date) (unknown) (unknown) (no value) (units unknown) (unknown) (unknown) (no date) (unknown) (unknown) #90 tabs (units unknown) (unknown) (unknown) (no date) (unknown) (unknown) (Vistaril) caps (units unknown) (unknown) (unknown) (no date) (unknown) (unknown) (Zegerid) (units unknown) (unknown) (unknown) (no date) (unknown) (unknown) (past 8 hours): (units unknown) (unknown) (unknown) (no date) (unknown) (unknown) 09/29/22 Rx (units unknown) (unknown) (unknown) (no date) (unknown) (unknown) 10/02/22 10/02/22 10/02/22 (units unknown) (unknown) (unknown) (no date) (unknown) (unknown) 10/02/22 17:57 (units unknown) (unknown) (unknown) (no date) (unknown) (unknown) 10/02/22 1928 (units unknown) (unknown) (unknown) (no date) (unknown) (unknown) 10/02/22 (units unknown) (unknown) (unknown) (no date) (unknown) (unknown) 17:50 10/02/22 (units unknown) (unknown) (unknown) (no date) (unknown) (unknown) 17:50 (units unknown) (unknown) (unknown) (no date) (unknown) (unknown) 17:57 17:57 18:42 (units unknown) (unknown) (unknown) (no date) (unknown) (unknown) 18:00 10/02/22 (units unknown) (unknown) (unknown) (no date) (unknown) (unknown) 18:05 10/02/22 (units unknown) (unknown) (unknown) (no date) (unknown) (unknown) 18:30 (units unknown) (unknown) (unknown) (no date) (unknown) (unknown) 3151 (units unknown) (unknown) (unknown) (no date) (unknown) (unknown) 72-year-old female w ho is status post a left total hip arthroplasty by Kristin (units unknown) (unknown) (unknown) (no date) (unknown) (unknown) Age/Sex: 72 / F (units unknown) (unknown) (unknown) (no date) (unknown) (unknown) Allergies (units unknown) (unknown) (unknown) (no date) (unknown) (unknown) Allergy/AdvReac Type Severity Reaction Status Date / Time (units unknown) (unknown) (unknown) (no date) (unknown) (unknown) Assessment + Plan narrative: (units unknown) (unknown) (unknown) (no date) (unknown) (unknown) Assessment + Plan (units unknown) (unknown) (unknown) (no date) (unknown) (unknown) BUN 29 H (units unknown) (unknown) (unknown) (no date) (unknown) (unknown) BUN/Creatinine Ratio 27.6 H (units unknown) (unknown) (unknown) (no date) (unknown) (unknown) Baso # (Auto) 100 (units unknown) (unknown) (unknown) (no date) (unknown) (unknown) Baso % (Auto) 1.1 (units unknown) (unknown) (unknown) (no date) (unknown) (unknown) Blood Pressure 131/6 2 123/58 L (units unknown) (unknown) (unknown) (no date) (unknown) (unknown) Blood Pressure 131/6 2 149/65 H (units unknown) (unknown) (unknown) (no date) (unknown) (unknown) Blood Pressure (units unknown) (unknown) (unknown) (no date) (unknown) (unknown) Brisk cap refill. No sign of any knee or ankle swelling or injury. (units unknown) (unknown) (unknown) (no date) (unknown) (unknown) Calcium 8.4 (units unknown) (unknown) (unknown) (no date) (unknown) (unknown) Carbon Dioxide 29 (units unknown) (unknown) (unknown) (no date) (unknown) (unknown) Chief complaint: L H ip Dislocation (units unknown) (unknown) (unknown) (no date) (unknown) (unknown) Chloride 103 (units unknown) (unknown) (unknown) (no date) (unknown) (unknown) Creatinine 1.05 H (units unknown) (unknown) (unknown) (no date) (unknown) (unknown) : 1950 Acct:[id number] (units unknown) (unknown) (unknown) (no date) (unknown) (unknown) Date Patient Seen: 10/02/22 (units unknown) (unknown) (unknown) (no date) (unknown) (unknown) Date of Service: 10/02/22 (units unknown) (unknown) (unknown) (no date) (unknown) (unknown) Depression (units unknown) (unknown) (unknown) (no date) (unknown) (unknown) Diverticulitis (units unknown) (unknown) (unknown) (no date) (unknown) (unknown) Eos # (Auto) 600 H (units unknown) (unknown) (unknown) (no date) (unknown) (unknown) Eos % (Auto) 9.6 H (units unknown) (unknown) (unknown) (no date) (unknown) (unknown) Estimated GFR 56 L (units unknown) (unknown) (unknown) (no date) (unknown) (unknown) Exam Narrative: (units unknown) (unknown) (unknown) (no date) (unknown) (unknown) Exam (units unknown) (unknown) (unknown) (no date) (unknown) (unknown) Extra Strength) (units unknown) (unknown) (unknown) (no date) (unknown) (unknown) GERD (gastroesophage al reflux disease) (units unknown) (unknown) (unknown) (no date) (unknown) (unknown) Glucose 93 (units unknown) (unknown) (unknown) (no date) (unknown) (unknown) HLD (hyperlipidemia) (units unknown) (unknown) (unknown) (no date) (unknown) (unknown) Hct 29.5 L (units unknown) (unknown) (unknown) (no date) (unknown) (unknown) Hearing impaired (units unknown) (unknown) (unknown) (no date) (unknown) (unknown) Hgb 10.0 L (units unknown) (unknown) (unknown) (no date) (unknown) (unknown) History + Physical Report (units unknown) (unknown) (unknown) (no date) (unknown) (unknown) History of Present Illness (units unknown) (unknown) (unknown) (no date) (unknown) (unknown) History of bladder surgery (units unknown) (unknown) (unknown) (no date) (unknown) (unknown) History of total lef t knee replacement (units unknown) (unknown) (unknown) (no date) (unknown) (unknown) History of total rig ht knee replacement (units unknown) (unknown) (unknown) (no date) (unknown) (unknown) History (units unknown) (unknown) (unknown) (no date) (unknown) (unknown) Home Medications and Allergies (units unknown) (unknown) (unknown) (no date) (unknown) (unknown) Home Medications (units unknown) (unknown) (unknown) (no date) (unknown) (unknown) Hx of left breast biopsy (units unknown) (unknown) (unknown) (no date) (unknown) (unknown) Hx of right breast biopsy (units unknown) (unknown) (unknown) (no date) (unknown) (unknown) Hx of tonsillectomy (units unknown) (unknown) (unknown) (no date) (unknown) (unknown) [address] [address] (units unknown) (unknown) (unknown) (no date) (unknown) (unknown) Laboratory Results - last 24 hr (units unknown) (unknown) (unknown) (no date) (unknown) (unknown) Labs (units unknown) (unknown) (unknown) (no date) (unknown) (unknown) Labs: (units unknown) (unknown) (unknown) (no date) (unknown) (unknown) Lymph # (Auto) 1500 (units unknown) (unknown) (unknown) (no date) (unknown) (unknown) Lymph % (Auto) 22.1 L (units unknown) (unknown) (unknown) (no date) (unknown) (unknown) MCH 29.9 (units unknown) (unknown) (unknown) (no date) (unknown) (unknown) MCHC 33.8 (units unknown) (unknown) (unknown) (no date) (unknown) (unknown) MCV 88.3 (units unknown) (unknown) (unknown) (no date) (unknown) (unknown) Medical History (units unknown) (unknown) (unknown) (no date) (unknown) (unknown) Medication Instructions Recorded Confirmed Type (units unknown) (unknown) (unknown) (no date) (unknown) (unknown) Meds (units unknown) (unknown) (unknown) (no date) (unknown) (unknown) [place] # (Auto) 700 (units unknown) (unknown) (unknown) (no date) (unknown) (unknown) [place] % (Auto) 10.1 (units unknown) (unknown) (unknown) (no date) (unknown) (unknown) Narrative (units unknown) (unknown) (unknown) (no date) (unknown) (unknown) Narrative: (units unknown) (unknown) (unknown) (no date) (unknown) (unknown) Neut # (Auto) 3800 (units unknown) (unknown) (unknown) (no date) (unknown) (unknown) Neut % (Auto) 57.1 (units unknown) (unknown) (unknown) (no date) (unknown) (unknown) No Known Drug Allergies Allergy Verified 10/02/22 18:28 (units unknown) (unknown) (unknown) (no date) (unknown) (unknown) Objective (units unknown) (unknown) (unknown) (no date) (unknown) (unknown) Osteoarthritis (units unknown) (unknown) (unknown) (no date) (unknown) (unknown) Oxygen Delivery Meth od Room Air (units unknown) (unknown) (unknown) (no date) (unknown) (unknown) Oxygen Delivery Method (units unknown) (unknown) (unknown) (no date) (unknown) (unknown) PFSH (units unknown) (unknown) (unknown) (no date) (unknown) (unknown) Pain/inflammation #9 0 tabs (units unknown) (unknown) (unknown) (no date) (unknown) (unknown) Patient with a dislocation of a left total hip arthroplasty. Due to this injury (units unknown) (unknown) (unknown) (no date) (unknown) (unknown) Patient with some slight shortening and rotation of the left hip. Compartments (units unknown) (unknown) (unknown) (no date) (unknown) (unknown) Patient: Barbara Garcia MR#: [id number] (units unknown) (unknown) (unknown) (no date) (unknown) (unknown) Plt Count 322 (units unknown) (unknown) (unknown) (no date) (unknown) (unknown) Potassium 3.6 (units unknown) (unknown) (unknown) (no date) (unknown) (unknown) Provider: Jorge Aviles MD (units unknown) (unknown) (unknown) (no date) (unknown) (unknown) Pulse Oximetry 98 97 (units unknown) (unknown) (unknown) (no date) (unknown) (unknown) Pulse Oximetry 98 (units unknown) (unknown) (unknown) (no date) (unknown) (unknown) Pulse Rate 62 (units unknown) (unknown) (unknown) (no date) (unknown) (unknown) Pulse Rate 64 66 (units unknown) (unknown) (unknown) (no date) (unknown) (unknown) Pulse Rate 64 (units unknown) (unknown) (unknown) (no date) (unknown) (unknown) RBC 3.34 L (units unknown) (unknown) (unknown) (no date) (unknown) (unknown) RDW 14.5 (units unknown) (unknown) (unknown) (no date) (unknown) (unknown) Respiratory Rate 10 L (units unknown) (unknown) (unknown) (no date) (unknown) (unknown) Respiratory Rate 18 16 (units unknown) (unknown) (unknown) (no date) (unknown) (unknown) Respiratory Rate 21 (units unknown) (unknown) (unknown) (no date) (unknown) (unknown) SARS-CoV-2 (PCR) Negative (units unknown) (unknown) (unknown) (no date) (unknown) (unknown) Seasonal allergies (units unknown) (unknown) (unknown) (no date) (unknown) (unknown) Signed By:<Electronically signed by Jorge Aviles MD> (units unknown) (unknown) (unknown) (no date) (unknown) (unknown) River on 09/14. Sustained a 3rd dislocation today. According to patient she (units unknown) (unknown) (unknown) (no date) (unknown) (unknown) Smoking Status: Carmencita rubin smoker (units unknown) (unknown) (unknown) (no date) (unknown) (unknown) Social History (units unknown) (unknown) (unknown) (no date) (unknown) (unknown) Sodium 139 (units unknown) (unknown) (unknown) (no date) (unknown) (unknown) Surgical History (units unknown) (unknown) (unknown) (no date) (unknown) (unknown) Temperature 97.7 F (units unknown) (unknown) (unknown) (no date) (unknown) (unknown) Temperature (units unknown) (unknown) (unknown) (no date) (unknown) (unknown) The risk, benefits, alternatives, possible complications, operative course, and (units unknown) (unknown) (unknown) (no date) (unknown) (unknown) Time Patient Seen: 19:26 (units unknown) (unknown) (unknown) (no date) (unknown) (unknown) Vital Signs (units unknown) (unknown) (unknown) (no date) (unknown) (unknown) WBC 6.7 (units unknown) (unknown) (unknown) (no date) (unknown) (unknown) [Embedded Image Not Available] (units unknown) (unknown) (unknown) (no date) (unknown) (unknown) acetaminophen 325 mg tablet 650 mg PO Q6H PRN fever or pain 09/15/22 09/29/22 Rx (units unknown) (unknown) (unknown) (no date) (unknown) (unknown) admitted afterwards and we can discuss further treatment with Dr. River. (units unknown) (unknown) (unknown) (no date) (unknown) (unknown) alcohol intake: current (units unknown) (unknown) (unknown) (no date) (unknown) (unknown) allergies (units unknown) (unknown) (unknown) (no date) (unknown) (unknown) are soft positive dorsiflexion and plantar flexion. Palpable pedal pulses. (units unknown) (unknown) (unknown) (no date) (unknown) (unknown) aspirin 81 mg tablet,delayed 81 mg PO BID 6 weeks #84 tabs 09/15/22 09/29/22 Rx (units unknown) (unknown) (unknown) (no date) (unknown) (unknown) aspirin-acetaminophe n- caffeine 250 1 - 2 tab PO BID 08/13/22 09/29/22 History (units unknown) (unknown) (unknown) (no date) (unknown) (unknown) atorvastatin 20 mg tablet 20 mg PO BEDTIME 08/13/22 09/29/22 History (units unknown) (unknown) (unknown) (no date) (unknown) (unknown) bicarbonate 1.1 gram capsule (units unknown) (unknown) (unknown) (no date) (unknown) (unknown) bleeding, infection, fracture, nerve injury, continued pain postoperatively or (units unknown) (unknown) (unknown) (no date) (unknown) (unknown) caps (units unknown) (unknown) (unknown) (no date) (unknown) (unknown) cetirizine 10 mg tablet (Zyrtec) 10 mg PO DAILY PRN Seasonal 08/13/22 09/29/22 (units unknown) (unknown) (unknown) (no date) (unknown) (unknown) complications with excessive bleeding, vascular events or cardiac events and (units unknown) (unknown) (unknown) (no date) (unknown) (unknown) dislocation patient was taken to the emergency room. (units unknown) (unknown) (unknown) (no date) (unknown) (unknown) docusate sodium 100 mg capsule 100 mg PO BID PRN constipation #30 09/15/22 (units unknown) (unknown) (unknown) (no date) (unknown) (unknown) escitalopram oxalate 20 mg tablet 20 mg PO DAILY 08/13/22 09/29/22 History (units unknown) (unknown) (unknown) (no date) (unknown) (unknown) household members: spouse (units unknown) (unknown) (unknown) (no date) (unknown) (unknown) hydroxyzine pamoate 25 mg capsule 25 mg PO TID-QID PRN itching #60 09/30/22 Rx (units unknown) (unknown) (unknown) (no date) (unknown) (unknown) ibuprofen 400 mg tablet 400 mg PO Q4H PRN 09/15/22 09/29/22 Rx (units unknown) (unknown) (unknown) (no date) (unknown) (unknown) in detail. Patient acknowledges understanding and elects to proceed with (units unknown) (unknown) (unknown) (no date) (unknown) (unknown) including but not limited to deep venous thrombosis event, anesthesia (units unknown) (unknown) (unknown) (no date) (unknown) (unknown) instability postoperatively were discussed in detail. Medical complications (units unknown) (unknown) (unknown) (no date) (unknown) (unknown) mg-250 mg-65 mg tabl et (Excedrin (units unknown) (unknown) (unknown) (no date) (unknown) (unknown) omeprazole 20 mg-sodium 1 cap PO DAILY PRN GI Upset 08/13/22 09/29/22 History (units unknown) (unknown) (unknown) (no date) (unknown) (unknown) other possible complications were discussed in detail. Need for postoperative (units unknown) (unknown) (unknown) (no date) (unknown) (unknown) patient will undergo a closed reduction under sedation. Patient will be (units unknown) (unknown) (unknown) (no date) (unknown) (unknown) postop outcomes were discussed. Complications including but not limiting to (units unknown) (unknown) (unknown) (no date) (unknown) (unknown) rehabilitation and anticipated hospital stay and clinical course were discussed (units unknown) (unknown) (unknown) (no date) (unknown) (unknown) release (units unknown) (unknown) (unknown) (no date) (unknown) (unknown) solifenacin 10 mg tablet (Vesicare) 10 mg PO DAILY 08/13/22 09/29/22 History (units unknown) (unknown) (unknown) (no date) (unknown) (unknown) surgery. (units unknown) (unknown) (unknown) (no date) (unknown) (unknown) was just standing by the bed was not moving when the hip dislocated. Due to the (units unknown) (unknown) Result panel [id number] (unknown) (no date) (unknown) (unknown) (no value) (units unknown) (unknown) (unknown) (no date) (unknown) (unknown) 10/02/222002 (units unknown) (unknown) (unknown) (no date) (unknown) (unknown) 3151 (units unknown) (unknown) (unknown) (no date) (unknown) (unknown) Age/Sex: 72 / F (units unknown) (unknown) (unknown) (no date) (unknown) (unknown) Anesthesia Type: General (units unknown) (unknown) (unknown) (no date) (unknown) (unknown) Any remaining questions or concerns she had were answered fully. Patient was (units unknown) (unknown) (unknown) (no date) (unknown) (unknown) Click Yes if Unassisted: Yes (units unknown) (unknown) (unknown) (no date) (unknown) (unknown) Closed reduction of a left total hip dislocation (units unknown) (unknown) (unknown) (no date) (unknown) (unknown) Complications: none (units unknown) (unknown) (unknown) (no date) (unknown) (unknown) Condition: stable (units unknown) (unknown) (unknown) (no date) (unknown) (unknown) : 1950 Acct:[id number] (units unknown) (unknown) (unknown) (no date) (unknown) (unknown) Date of Service: 10/02/22 (units unknown) (unknown) (unknown) (no date) (unknown) (unknown) Date of procedure: 10/02/22 (units unknown) (unknown) (unknown) (no date) (unknown) (unknown) Disposition: Acute Care (units unknown) (unknown) (unknown) (no date) (unknown) (unknown) Findings: (units unknown) (unknown) (unknown) (no date) (unknown) (unknown) Indications: (units unknown) (unknown) (unknown) (no date) (unknown) (unknown) [address] [address] (units unknown) (unknown) (unknown) (no date) (unknown) (unknown) Left total hip dislocation (units unknown) (unknown) (unknown) (no date) (unknown) (unknown) On date of service patient was met in the holding area. Operative site was (units unknown) (unknown) (unknown) (no date) (unknown) (unknown) Operative Date/Time/Diagnoses (units unknown) (unknown) (unknown) (no date) (unknown) (unknown) Operative Note (units unknown) (unknown) (unknown) (no date) (unknown) (unknown) Operative Notes (units unknown) (unknown) (unknown) (no date) (unknown) (unknown) Patient will be admitted overnight. Dr. Rievr will see the patient in the (units unknown) (unknown) (unknown) (no date) (unknown) (unknown) Patient: Barbara Garcia MR#: [id number] (units unknown) (unknown) (unknown) (no date) (unknown) (unknown) Plan for aftercare: (units unknown) (unknown) (unknown) (no date) (unknown) (unknown) Post-op diagnosis: same (units unknown) (unknown) (unknown) (no date) (unknown) (unknown) Post-operative (units unknown) (unknown) (unknown) (no date) (unknown) (unknown) Posterior dislocatio n of the left total hip (units unknown) (unknown) (unknown) (no date) (unknown) (unknown) Pre-op diagnosis: Le ft total hip dislocation (units unknown) (unknown) (unknown) (no date) (unknown) (unknown) Procedure + Clinicians (units unknown) (unknown) (unknown) (no date) (unknown) (unknown) Procedure in detail: (units unknown) (unknown) (unknown) (no date) (unknown) (unknown) Procedure: (units unknown) (unknown) (unknown) (no date) (unknown) (unknown) Provider: Jorge Aviles MD (units unknown) (unknown) (unknown) (no date) (unknown) (unknown) Same procedure as scheduled: Yes (units unknown) (unknown) (unknown) (no date) (unknown) (unknown) Signed By:<Electronically signed by Jorge Aviles MD> (units unknown) (unknown) (unknown) (no date) (unknown) (unknown) Surgeon: Jorge Aviles (units unknown) (unknown) (unknown) (no date) (unknown) (unknown) Time of procedure: 19:45 (units unknown) (unknown) (unknown) (no date) (unknown) (unknown) appropriately padded . Patient underwent general anesthesia when she was (units unknown) (unknown) (unknown) (no date) (unknown) (unknown) appropriately sedate d gentle traction was placed along the left leg with the leg (units unknown) (unknown) (unknown) (no date) (unknown) (unknown) brought in to verify reduction. Once we verified a symmetric reduction of the (units unknown) (unknown) (unknown) (no date) (unknown) (unknown) extended. The hip we nt back into place without much difficulty. C-arm was (units unknown) (unknown) (unknown) (no date) (unknown) (unknown) hip patient was extubated and taken to the PACU in stable condition. (units unknown) (unknown) (unknown) (no date) (unknown) (unknown) morning and discuss possible surgical alternatives. (units unknown) (unknown) (unknown) (no date) (unknown) (unknown) signed and witnessed by the OR staff. Surgery was discussed with the patient. (units unknown) (unknown) (unknown) (no date) (unknown) (unknown) supine position. Gre at care was taken to ensure that all bony prominences were (units unknown) (unknown) (unknown) (no date) (unknown) (unknown) taken back to the operating theater and placed on the operating table in a (units unknown) (unknown) Result panel [id number] (unknown) (no date) (unknown) (unknown) (no value) (units unknown) (unknown) (unknown) (no date) (unknown) (unknown) 10/02/22 (units unknown) (unknown) (unknown) (no date) (unknown) (unknown) [facility] [address] [place] [address] (units unknown) (unknown) (unknown) (no date) (unknown) (unknown) [id number] (units unknown) (unknown) (unknown) (no date) (unknown) (unknown) Accession Number: [id number] (units unknown) (unknown) (unknown) (no date) (unknown) (unknown) Age/Sex: 72 / F Date of Service: (units unknown) (unknown) (unknown) (no date) (unknown) (unknown) [place] [id number] (units unknown) (unknown) (unknown) (no date) (unknown) (unknown) Approved by: Misty Cabrera M.D. on 10/02/2022 at 21:55 (units unknown) (unknown) (unknown) (no date) (unknown) (unknown) COMPARISON: [facility], CR, XR HIP LT 1V, 09/29/2022, 16:02. [place] (units unknown) (unknown) (unknown) (no date) (unknown) (unknown) : 1950 Acct:[id number] (units unknown) (unknown) (unknown) (no date) (unknown) (unknown) Dictated by: Misty Cabrera M.D. on 10/02/2022 at 21:54 (units unknown) (unknown) (unknown) (no date) (unknown) (unknown) FINDINGS: A fluoroscopy image demonstrate reduction of left hip prosthesis (units unknown) (unknown) (unknown) (no date) (unknown) (unknown) HIP W PEL IF DONE LT 2V, 10/02/2022, 18:04. (units unknown) (unknown) (unknown) (no date) (unknown) (unknown) [facility], CR, XR (units unknown) (unknown) (unknown) (no date) (unknown) (unknown) IMPRESSION: Left hip prosthesis dislocation is reduced (units unknown) (unknown) (unknown) (no date) (unknown) (unknown) INDICATIONS: LEFT HI P CLOSED REDUCTION (units unknown) (unknown) (unknown) (no date) (unknown) (unknown) [facility] (units unknown) (unknown) (unknown) (no date) (unknown) (unknown) Loc: AC 219-1 (units unknown) (unknown) (unknown) (no date) (unknown) (unknown) Ordering Provider: Jorge Aviles MD (units unknown) (unknown) (unknown) (no date) (unknown) (unknown) PROCEDURE: XR HIP LT 1V (units unknown) (unknown) (unknown) (no date) (unknown) (unknown) Patient: Barbara Garcia MR#: [id number] (units unknown) (unknown) (unknown) (no date) (unknown) (unknown) Procedure: XR hip LT 1V (units unknown) (unknown) (unknown) (no date) (unknown) (unknown) Signed (units unknown) (unknown) (unknown) (no date) (unknown) (unknown) TECHNIQUE: 2 view(s) of the hip acquired. (units unknown) (unknown) (unknown) (no date) (unknown) (unknown) The left hip prosthesis is in anatomic alignment (units unknown) (unknown) (unknown) (no date) (unknown) (unknown) XRay Report (units unknown) (unknown) (unknown) (no date) (unknown) (unknown) dislocation. (units unknown) (unknown) Result panel [id number] (unknown) (no date) (unknown) (unknown) (no value) (units unknown) (unknown) (unknown) (no date) (unknown) (unknown) #90 tabs (units unknown) (unknown) (unknown) (no date) (unknown) (unknown) <Electronically sign ed by Sagar Sheriff D.O.> (units unknown) (unknown) (unknown) (no date) (unknown) (unknown) (Vistaril) caps (units unknown) (unknown) (unknown) (no date) (unknown) (unknown) (Zegerid) (units unknown) (unknown) (unknown) (no date) (unknown) (unknown) 10/02/22 10/02/22 10/02/22 Range/Units (units unknown) (unknown) (unknown) (no date) (unknown) (unknown) 10/02/22 17:57 (units unknown) (unknown) (unknown) (no date) (unknown) (unknown) 10/02/22 18:05 (units unknown) (unknown) (unknown) (no date) (unknown) (unknown) 10/02/22 18:42 (units unknown) (unknown) (unknown) (no date) (unknown) (unknown) 10/02/22 (units unknown) (unknown) (unknown) (no date) (unknown) (unknown) 10/03/22 0206 (units unknown) (unknown) (unknown) (no date) (unknown) (unknown) 1. Dislocation of th e left hip prosthesis.? (units unknown) (unknown) (unknown) (no date) (unknown) (unknown) 17:57 17:57 18:42 (units unknown) (unknown) (unknown) (no date) (unknown) (unknown) 18:05 10/02/22 (units unknown) (unknown) (unknown) (no date) (unknown) (unknown) 18:30 10/02/22 (units unknown) (unknown) (unknown) (no date) (unknown) (unknown) 18:30 (units unknown) (unknown) (unknown) (no date) (unknown) (unknown) 19:00 10/02/22 (units unknown) (unknown) (unknown) (no date) (unknown) (unknown) 19:00 (units unknown) (unknown) (unknown) (no date) (unknown) (unknown) 2. Suspect Malini prosthesis fracture of the left greater trochanter (units unknown) (unknown) (unknown) (no date) (unknown) (unknown) 3151 (units unknown) (unknown) (unknown) (no date) (unknown) (unknown) 09/29/2022, 11:47. (units unknown) (unknown) (unknown) (no date) (unknown) (unknown) ? (units unknown) (unknown) (unknown) (no date) (unknown) (unknown) Admin: 10/02/22 20:1 1 Dose: 125 mls/hr (units unknown) (unknown) (unknown) (no date) (unknown) (unknown) Admin: 10/02/22 20:4 5 Dose: 10 mg (units unknown) (unknown) (unknown) (no date) (unknown) (unknown) Admit Date/Time: 10/02/22 19:13 (units unknown) (unknown) (unknown) (no date) (unknown) (unknown) Admit Provider: Jorge Aviles (units unknown) (unknown) (unknown) (no date) (unknown) (unknown) Age/Sex: 72 / F (units unknown) (unknown) (unknown) (no date) (unknown) (unknown) Al Hydrox/Mg Hydrox/Simethicone (Mag Hydrox/Alum/Simeth 30 Ml Udc) 30 ml PO QID (units unknown) (unknown) (unknown) (no date) (unknown) (unknown) Allergies (units unknown) (unknown) (unknown) (no date) (unknown) (unknown) Allergy/AdvReac Type Severity Reaction Status Date / Time (units unknown) (unknown) (unknown) (no date) (unknown) (unknown) Atorvastatin Calcium (Atorvastatin 20 Mg Tablet) 20 mg PO BEDTIME MINDI (units unknown) (unknown) (unknown) (no date) (unknown) (unknown) BUN 29 H (7-17) mg/dL (units unknown) (unknown) (unknown) (no date) (unknown) (unknown) BUN/Creatinine Ratio 27.6 H (6-22) (units unknown) (unknown) (unknown) (no date) (unknown) (unknown) Basic Metabolic Pane l Stat (units unknown) (unknown) (unknown) (no date) (unknown) (unknown) Baso # (Auto) 100 (0-100) /uL (units unknown) (unknown) (unknown) (no date) (unknown) (unknown) Baso % (Auto) 1.1 (0-2) % (units unknown) (unknown) (unknown) (no date) (unknown) (unknown) Blood Pressure 116/5 9 L (units unknown) (unknown) (unknown) (no date) (unknown) (unknown) Blood Pressure 131/6 2 123/58 L (units unknown) (unknown) (unknown) (no date) (unknown) (unknown) Blood Pressure 149/6 5 H 10/02/22 17:50 (units unknown) (unknown) (unknown) (no date) (unknown) (unknown) Bones:? There is lef t hip arthroplasty.? There is dislocation of the left (units unknown) (unknown) (unknown) (no date) (unknown) (unknown) COMPARISON:? [facility], CR, XR HIP W PEL IF DONE LT 2V, 09/27/2022, 19:35.? (units unknown) (unknown) (unknown) (no date) (unknown) (unknown) COVID19 -Nasal RAPID Stat (units unknown) (unknown) (unknown) (no date) (unknown) (unknown) CR, XR HIP (units unknown) (unknown) (unknown) (no date) (unknown) (unknown) Calcium 8.4 (8.4-10. 2) mg/dL (units unknown) (unknown) (unknown) (no date) (unknown) (unknown) Carbon Dioxide 29 (22-32) mmol/L (units unknown) (unknown) (unknown) (no date) (unknown) (unknown) Cardio (units unknown) (unknown) (unknown) (no date) (unknown) (unknown) Chief complaint: Extremity Problem,Nontraumatic (units unknown) (unknown) (unknown) (no date) (unknown) (unknown) Chloride 103 (98-107 ) mmol/L (units unknown) (unknown) (unknown) (no date) (unknown) (unknown) Clinical Impression: (units unknown) (unknown) (unknown) (no date) (unknown) (unknown) Complete Blood Count AUTO DIFF Stat (units unknown) (unknown) (unknown) (no date) (unknown) (unknown) Const (units unknown) (unknown) (unknown) (no date) (unknown) (unknown) Constitutional (units unknown) (unknown) (unknown) (no date) (unknown) (unknown) Constitutional: Reports system reviewed and no additional complaints, except as (units unknown) (unknown) (unknown) (no date) (unknown) (unknown) Course (units unknown) (unknown) (unknown) (no date) (unknown) (unknown) Creatinine 1.05 H (0.52-1.04) mg/dL (units unknown) (unknown) (unknown) (no date) (unknown) (unknown) : 1950 Acct:[id number] (units unknown) (unknown) (unknown) (no date) (unknown) (unknown) DONE LT 2V, (units unknown) (unknown) (unknown) (no date) (unknown) (unknown) Date of Service: 10/02/22 (units unknown) (unknown) (unknown) (no date) (unknown) (unknown) Departure (units unknown) (unknown) (unknown) (no date) (unknown) (unknown) Depression (units unknown) (unknown) (unknown) (no date) (unknown) (unknown) Discharge Plan (units unknown) (unknown) (unknown) (no date) (unknown) (unknown) Discontinued Medications (units unknown) (unknown) (unknown) (no date) (unknown) (unknown) Dislocation, hip closed (units unknown) (unknown) (unknown) (no date) (unknown) (unknown) Diverticulitis (units unknown) (unknown) (unknown) (no date) (unknown) (unknown) Documented By: AGW (units unknown) (unknown) (unknown) (no date) (unknown) (unknown) Documented By: CG (units unknown) (unknown) (unknown) (no date) (unknown) (unknown) Documented By: RO (units unknown) (unknown) (unknown) (no date) (unknown) (unknown) Documented By: TLS (units unknown) (unknown) (unknown) (no date) (unknown) (unknown) Docusate Sodium (Docusate 100 Mg Capsule) 100 mg PO BID MINDI (units unknown) (unknown) (unknown) (no date) (unknown) (unknown) ED Orders (units unknown) (unknown) (unknown) (no date) (unknown) (unknown) ER Physician: Sagar Sheriff D.O. (units unknown) (unknown) (unknown) (no date) (unknown) (unknown) Effort + Inspection: normal respiratory effort (units unknown) (unknown) (unknown) (no date) (unknown) (unknown) Emergency Report (units unknown) (unknown) (unknown) (no date) (unknown) (unknown) Eos # (Auto) 600 H (0-450) /uL (units unknown) (unknown) (unknown) (no date) (unknown) (unknown) Eos % (Auto) 9.6 H (2-4) % (units unknown) (unknown) (unknown) (no date) (unknown) (unknown) Escitalopram Oxalate (Escitalopram 10 Mg Tablet) 20 mg PO DAILY MINDI (units unknown) (unknown) (unknown) (no date) (unknown) (unknown) Estimated GFR 56 L (>60) mL/min (units unknown) (unknown) (unknown) (no date) (unknown) (unknown) Exam (units unknown) (unknown) (unknown) (no date) (unknown) (unknown) Extra Strength) (units unknown) (unknown) (unknown) (no date) (unknown) (unknown) Extrem (units unknown) (unknown) (unknown) (no date) (unknown) (unknown) Extremity x-ray #1: (units unknown) (unknown) (unknown) (no date) (unknown) (unknown) FINDINGS:? (units unknown) (unknown) (unknown) (no date) (unknown) (unknown) GERD (gastroesophage al reflux disease) (units unknown) (unknown) (unknown) (no date) (unknown) (unknown) General (units unknown) (unknown) (unknown) (no date) (unknown) (unknown) General: cooperative and comfortable (units unknown) (unknown) (unknown) (no date) (unknown) (unknown) General: no rashes o r lesions noted (units unknown) (unknown) (unknown) (no date) (unknown) (unknown) Glucose 93 (80-110) mg/dL (units unknown) (unknown) (unknown) (no date) (unknown) (unknown) HENMT (units unknown) (unknown) (unknown) (no date) (unknown) (unknown) HLD (hyperlipidemia) (units unknown) (unknown) (unknown) (no date) (unknown) (unknown) HPI - Extremity Problem (units unknown) (unknown) (unknown) (no date) (unknown) (unknown) HPI Narrative: (units unknown) (unknown) (unknown) (no date) (unknown) (unknown) Hct 29.5 L (36-46) % (units unknown) (unknown) (unknown) (no date) (unknown) (unknown) Head: normal to inspection (units unknown) (unknown) (unknown) (no date) (unknown) (unknown) Hearing impaired (units unknown) (unknown) (unknown) (no date) (unknown) (unknown) Hematologic/Lymphatic (units unknown) (unknown) (unknown) (no date) (unknown) (unknown) Hgb 10.0 L (12.0-16. 0) g/dL (units unknown) (unknown) (unknown) (no date) (unknown) (unknown) History of Present Illness (units unknown) (unknown) (unknown) (no date) (unknown) (unknown) History of bladder surgery (units unknown) (unknown) (unknown) (no date) (unknown) (unknown) History of total lef t knee replacement (units unknown) (unknown) (unknown) (no date) (unknown) (unknown) History of total rig ht knee replacement (units unknown) (unknown) (unknown) (no date) (unknown) (unknown) Home Medications (units unknown) (unknown) (unknown) (no date) (unknown) (unknown) Hospital, CR, XR HIP W PEL IF DONE LT 2V, 09/27/2022, 16:33.? [facility], (units unknown) (unknown) (unknown) (no date) (unknown) (unknown) Hx of left breast biopsy (units unknown) (unknown) (unknown) (no date) (unknown) (unknown) Hx of right breast biopsy (units unknown) (unknown) (unknown) (no date) (unknown) (unknown) Hx of tonsillectomy (units unknown) (unknown) (unknown) (no date) (unknown) (unknown) Hydromorphone HCl (Hydromorphone 0.5 Mg Inj) 0.5 mg IV NOW ONE (units unknown) (unknown) (unknown) (no date) (unknown) (unknown) Hydromorphone HCl (Hydromorphone 1 Mg Inj) 0.2 mg IV Q1H PRN (units unknown) (unknown) (unknown) (no date) (unknown) (unknown) IMPRESSION:? (units unknown) (unknown) (unknown) (no date) (unknown) (unknown) INDICATIONS:? eval f or dislocation (units unknown) (unknown) (unknown) (no date) (unknown) (unknown) Imaging Data (units unknown) (unknown) (unknown) (no date) (unknown) (unknown) Infusion: 10/02/22 21:46 Dose: 125 mls/hr (units unknown) (unknown) (unknown) (no date) (unknown) (unknown) Initial Vital Signs (units unknown) (unknown) (unknown) (no date) (unknown) (unknown) Initial Vital Signs: (units unknown) (unknown) (unknown) (no date) (unknown) (unknown) [address] [address] (units unknown) (unknown) (unknown) (no date) (unknown) (unknown) [place] (units unknown) (unknown) (unknown) (no date) (unknown) (unknown) Lab Data (units unknown) (unknown) (unknown) (no date) (unknown) (unknown) Lab Results (units unknown) (unknown) (unknown) (no date) (unknown) (unknown) Labs: (units unknown) (unknown) (unknown) (no date) (unknown) (unknown) Lactated Ringer's (Lactated Ringers) 1,000 mls @ 125 mls/hr IV CONT MINDI (units unknown) (unknown) (unknown) (no date) (unknown) (unknown) Last Admin: 10/02/22 18:38 Dose: 0.5 mg (units unknown) (unknown) (unknown) (no date) (unknown) (unknown) Last Admin: 10/02/22 20:45 Dose: 20 mg (units unknown) (unknown) (unknown) (no date) (unknown) (unknown) Last Admin: 10/02/22 20:45 Dose: Not Given (units unknown) (unknown) (unknown) (no date) (unknown) (unknown) Last Admin: 10/02/22 20:51 Dose: Not Given (units unknown) (unknown) (unknown) (no date) (unknown) (unknown) Last Admin: 10/02/22 21:46 Dose: 125 mls/hr (units unknown) (unknown) (unknown) (no date) (unknown) (unknown) Last Admin: 10/02/22 21:56 Dose: 0.2 mg (units unknown) (unknown) (unknown) (no date) (unknown) (unknown) Last Admin: 10/03/22 00:54 Dose: 10 mg (units unknown) (unknown) (unknown) (no date) (unknown) (unknown) Left leg shortened (units unknown) (unknown) (unknown) (no date) (unknown) (unknown) Limitations: no limitations (units unknown) (unknown) (unknown) (no date) (unknown) (unknown) Lorazepam (Lorazepam 0.5 Mg Tablet) 0.5 mg PO Q6HR PRN (units unknown) (unknown) (unknown) (no date) (unknown) (unknown) Lymph # (Auto) 1500 (1146-6757) /uL (units unknown) (unknown) (unknown) (no date) (unknown) (unknown) Lymph % (Auto) 22.1 L (25-40) % (units unknown) (unknown) (unknown) (no date) (unknown) (unknown) MCH 29.9 (26-34) PG (units unknown) (unknown) (unknown) (no date) (unknown) (unknown) MCHC 33.8 (30-36) % (units unknown) (unknown) (unknown) (no date) (unknown) (unknown) MCV 88.3 (80-100) fL (units unknown) (unknown) (unknown) (no date) (unknown) (unknown) MDM - Extremity (Nontraumatic) (units unknown) (unknown) (unknown) (no date) (unknown) (unknown) MDM Narrative (units unknown) (unknown) (unknown) (no date) (unknown) (unknown) Magnesium Hydroxide (Magnesium Hydroxide 30 Ml Udc) 30 ml PO BEDTIME MINDI (units unknown) (unknown) (unknown) (no date) (unknown) (unknown) Medical History (units unknown) (unknown) (unknown) (no date) (unknown) (unknown) Medical decision making narrative: (units unknown) (unknown) (unknown) (no date) (unknown) (unknown) Medication Instructions Recorded Confirmed (units unknown) (unknown) (unknown) (no date) (unknown) (unknown) Medication Instructions Recorded (units unknown) (unknown) (unknown) (no date) (unknown) (unknown) Metoclopramide HCl (Metoclopramide 10 Mg/2 Ml Inj) 10 mg IV Q6HR PRN (units unknown) (unknown) (unknown) (no date) (unknown) (unknown) [place] # (Auto) 700 (0-900) /uL (units unknown) (unknown) (unknown) (no date) (unknown) (unknown) [place] % (Auto) 10.1 (3-14) % (units unknown) (unknown) (unknown) (no date) (unknown) (unknown) Musculoskeletal (units unknown) (unknown) (unknown) (no date) (unknown) (unknown) Musculoskeletal: Reports system reviewed and no additional complaints, except as (units unknown) (unknown) (unknown) (no date) (unknown) (unknown) Naloxone HCl (Naloxo ne 0.4 Mg/Ml Vial) 0.2 mg IV Q2MIN PRN (units unknown) (unknown) (unknown) (no date) (unknown) (unknown) Neurologic (units unknown) (unknown) (unknown) (no date) (unknown) (unknown) Neurologic: Reports system reviewed and no additional complaints, except as (units unknown) (unknown) (unknown) (no date) (unknown) (unknown) Neut # (Auto) 3800 (8480-6049) /uL (units unknown) (unknown) (unknown) (no date) (unknown) (unknown) Neut % (Auto) 57.1 (50-75) % (units unknown) (unknown) (unknown) (no date) (unknown) (unknown) No Known Drug Allergies Allergy Verified 10/02/22 18:28 (units unknown) (unknown) (unknown) (no date) (unknown) (unknown) On Anticoagulants: No (units unknown) (unknown) (unknown) (no date) (unknown) (unknown) Ondansetron HCl (Ondansetron 4 Mg Odt) 4 mg PO Q4HR PRN (units unknown) (unknown) (unknown) (no date) (unknown) (unknown) Ordered: (units unknown) (unknown) (unknown) (no date) (unknown) (unknown) Orders (units unknown) (unknown) (unknown) (no date) (unknown) (unknown) Orthopedic surgery w ho will take the patient to the operating room for a closed (units unknown) (unknown) (unknown) (no date) (unknown) (unknown) Osteoarthritis (units unknown) (unknown) (unknown) (no date) (unknown) (unknown) Other: (units unknown) (unknown) (unknown) (no date) (unknown) (unknown) Oxycodone HCl (Oxycodone Ir 10 Mg Tablet) 10 mg PO Q3HR PRN (units unknown) (unknown) (unknown) (no date) (unknown) (unknown) Oxygen Delivery Meth od Room Air (units unknown) (unknown) (unknown) (no date) (unknown) (unknown) Oxygen Delivery Method (units unknown) (unknown) (unknown) (no date) (unknown) (unknown) PRN Reason: Anxiety (units unknown) (unknown) (unknown) (no date) (unknown) (unknown) PRN Reason: Dyspepsia (units unknown) (unknown) (unknown) (no date) (unknown) (unknown) PRN Reason: Nausea A nd Vomiting (units unknown) (unknown) (unknown) (no date) (unknown) (unknown) PRN Reason: Opiate Reversal (units unknown) (unknown) (unknown) (no date) (unknown) (unknown) PRN Reason: Pain, Mi ld (1-3) (units unknown) (unknown) (unknown) (no date) (unknown) (unknown) PRN Reason: Pain, Moderate (4-6) (units unknown) (unknown) (unknown) (no date) (unknown) (unknown) PRN Reason: Sleep (units unknown) (unknown) (unknown) (no date) (unknown) (unknown) PRN (units unknown) (unknown) (unknown) (no date) (unknown) (unknown) PROCEDURE:? XR HIP W PEL IF DONE LT 2V (units unknown) (unknown) (unknown) (no date) (unknown) (unknown) Pain/inflammation #9 0 tabs (units unknown) (unknown) (unknown) (no date) (unknown) (unknown) Patient Disposition: Admitted As Inpatient (units unknown) (unknown) (unknown) (no date) (unknown) (unknown) Patient History (units unknown) (unknown) (unknown) (no date) (unknown) (unknown) Patient is a 72-year-old female. Had a left total hip arthroplasty done (units unknown) (unknown) (unknown) (no date) (unknown) (unknown) Patient: Barbara Garcia MR#: [id number] (units unknown) (unknown) (unknown) (no date) (unknown) (unknown) Plt Count 322 (150-400) X103/uL (units unknown) (unknown) (unknown) (no date) (unknown) (unknown) Potassium 3.6 (3.4-5.1) mmol/L (units unknown) (unknown) (unknown) (no date) (unknown) (unknown) Previous Rx's (units unknown) (unknown) (unknown) (no date) (unknown) (unknown) Pulse Oximetry 94 (units unknown) (unknown) (unknown) (no date) (unknown) (unknown) Pulse Oximetry 97 10/02/22 17:50 (units unknown) (unknown) (unknown) (no date) (unknown) (unknown) Pulse Oximetry 98 98 (units unknown) (unknown) (unknown) (no date) (unknown) (unknown) Pulse Rate 63 (units unknown) (unknown) (unknown) (no date) (unknown) (unknown) Pulse Rate 64 62 (units unknown) (unknown) (unknown) (no date) (unknown) (unknown) Pulse Rate 66 17:50 (units unknown) (unknown) (unknown) (no date) (unknown) (unknown) RBC 3.34 L (4.0-5.2) X106/uL (units unknown) (unknown) (unknown) (no date) (unknown) (unknown) RDW 14.5 (11.6-14.8) % (units unknown) (unknown) (unknown) (no date) (unknown) (unknown) Radiologist's Impression: (units unknown) (unknown) (unknown) (no date) (unknown) (unknown) Rate: regular rate (units unknown) (unknown) (unknown) (no date) (unknown) (unknown) Related Data (units unknown) (unknown) (unknown) (no date) (unknown) (unknown) Resp (units unknown) (unknown) (unknown) (no date) (unknown) (unknown) Respiratory Rate 15 (units unknown) (unknown) (unknown) (no date) (unknown) (unknown) Respiratory Rate 16 10/02/22 17:50 (units unknown) (unknown) (unknown) (no date) (unknown) (unknown) Respiratory Rate 18 10 L (units unknown) (unknown) (unknown) (no date) (unknown) (unknown) Review of Systems (units unknown) (unknown) (unknown) (no date) (unknown) (unknown) SARS-CoV-2 (PCR) Negative (Negative) (units unknown) (unknown) (unknown) (no date) (unknown) (unknown) Seasonal allergies (units unknown) (unknown) (unknown) (no date) (unknown) (unknown) Signed By: (units unknown) (unknown) (unknown) (no date) (unknown) (unknown) Skin (units unknown) (unknown) (unknown) (no date) (unknown) (unknown) Smoking Status: Carmencita rubin smoker (units unknown) (unknown) (unknown) (no date) (unknown) (unknown) Social History (units unknown) (unknown) (unknown) (no date) (unknown) (unknown) Sodium 139 (137-145) mmol/L (units unknown) (unknown) (unknown) (no date) (unknown) (unknown) Soft tissues:? Overlying postoperative changes are noted.? No suspicious soft (units unknown) (unknown) (unknown) (no date) (unknown) (unknown) Source: patient (units unknown) (unknown) (unknown) (no date) (unknown) (unknown) Stated complaint: L Hip Dislocation (units unknown) (unknown) (unknown) (no date) (unknown) (unknown) Stop: 10/02/22 18:27 (units unknown) (unknown) (unknown) (no date) (unknown) (unknown) Substance Use Type: does not use (units unknown) (unknown) (unknown) (no date) (unknown) (unknown) Surgical History (units unknown) (unknown) (unknown) (no date) (unknown) (unknown) TECHNIQUE:? AP pelvi s and lateral view of the left hip acquired.? (units unknown) (unknown) (unknown) (no date) (unknown) (unknown) Temperature 97.7 F (units unknown) (unknown) (unknown) (no date) (unknown) (unknown) Temperature (units unknown) (unknown) (unknown) (no date) (unknown) (unknown) Third time patient h as been in the emergency department in the past 20 days (units unknown) (unknown) (unknown) (no date) (unknown) (unknown) Time Seen by Nicole r: 10/02/22 18:01 (units unknown) (unknown) (unknown) (no date) (unknown) (unknown) Vital Signs - 8 hr (units unknown) (unknown) (unknown) (no date) (unknown) (unknown) Vital Signs (units unknown) (unknown) (unknown) (no date) (unknown) (unknown) Vital signs: (units unknown) (unknown) (unknown) (no date) (unknown) (unknown) W PEL IF DONE LT 2V, 09/27/2022, 15:02.[facility], CR, XR HIP W PEL IF (units unknown) (unknown) (unknown) (no date) (unknown) (unknown) WBC 6.7 (4.5-11.0) X103/uL (units unknown) (unknown) (unknown) (no date) (unknown) (unknown) XR hip w pel if done LT 2V Stat (units unknown) (unknown) (unknown) (no date) (unknown) (unknown) Zolpidem Tartrate (Zolpidem 5 Mg Tablet) 5 mg PO BEDTIME PRN (units unknown) (unknown) (unknown) (no date) (unknown) (unknown) [Embedded Image Not Available] (units unknown) (unknown) (unknown) (no date) (unknown) (unknown) acetaminophen 325 mg tablet 650 mg PO Q6H PRN fever or pain 09/15/22 (units unknown) (unknown) (unknown) (no date) (unknown) (unknown) alcohol intake frequency: holidays/special occasions only (units unknown) (unknown) (unknown) (no date) (unknown) (unknown) alcohol intake: current (units unknown) (unknown) (unknown) (no date) (unknown) (unknown) allergies (units unknown) (unknown) (unknown) (no date) (unknown) (unknown) approximately 20 day s ago. She is here today for the 3rd time for a left hip (units unknown) (unknown) (unknown) (no date) (unknown) (unknown) aspirin 81 mg tablet,delayed 81 mg PO BID 6 weeks #84 tabs 09/15/22 (units unknown) (unknown) (unknown) (no date) (unknown) (unknown) aspirin-acetaminophe n- caffeine 250 1 - 2 tab PO BID 08/13/22 10/02/22 (units unknown) (unknown) (unknown) (no date) (unknown) (unknown) atorvastatin 20 mg tablet 20 mg PO BEDTIME 08/13/22 10/02/22 (units unknown) (unknown) (unknown) (no date) (unknown) (unknown) bicarbonate 1.1 gram capsule (units unknown) (unknown) (unknown) (no date) (unknown) (unknown) caps (units unknown) (unknown) (unknown) (no date) (unknown) (unknown) cetirizine 10 mg tablet (Zyrtec) 10 mg PO DAILY PRN Seasonal 08/13/22 10/02/22 (units unknown) (unknown) (unknown) (no date) (unknown) (unknown) densities.? (units unknown) (unknown) (unknown) (no date) (unknown) (unknown) dislocation. She states that she thinks she is actually dislocated 4 times (units unknown) (unknown) (unknown) (no date) (unknown) (unknown) documented (units unknown) (unknown) (unknown) (no date) (unknown) (unknown) docusate sodium 100 mg capsule 100 mg PO BID PRN constipation #30 09/15/22 (units unknown) (unknown) (unknown) (no date) (unknown) (unknown) escitalopram oxalate 20 mg tablet 20 mg PO DAILY 08/13/22 10/02/22 (units unknown) (unknown) (unknown) (no date) (unknown) (unknown) femoral head (units unknown) (unknown) (unknown) (no date) (unknown) (unknown) from the prosthetic acetabulum cup.? Suspect periprosthesis fracture involving (units unknown) (unknown) (unknown) (no date) (unknown) (unknown) greater trochanter.? The visualized bony structures appear intact.? (units unknown) (unknown) (unknown) (no date) (unknown) (unknown) hip dislocated and s he fell. She did not hit her head. Has not been ambulatory (units unknown) (unknown) (unknown) (no date) (unknown) (unknown) household members: spouse (units unknown) (unknown) (unknown) (no date) (unknown) (unknown) however the 1st time that she thought she dislocated it reduced on its own. The (units unknown) (unknown) (unknown) (no date) (unknown) (unknown) hydroxyzine pamoate 25 mg capsule 25 mg PO TID-QID PRN itching #60 09/30/22 (units unknown) (unknown) (unknown) (no date) (unknown) (unknown) ibuprofen 400 mg tablet 400 mg PO Q4H PRN 09/15/22 (units unknown) (unknown) (unknown) (no date) (unknown) (unknown) last 2 times she is been here to the emergency department she is been taken to (units unknown) (unknown) (unknown) (no date) (unknown) (unknown) mg-250 mg-65 mg tabl et (Excedrin (units unknown) (unknown) (unknown) (no date) (unknown) (unknown) omeprazole 20 mg-sodium 1 cap PO DAILY PRN GI Upset 08/13/22 10/02/22 (units unknown) (unknown) (unknown) (no date) (unknown) (unknown) procedure was done. I did discuss the case with Dr. Aviles on-call for (units unknown) (unknown) (unknown) (no date) (unknown) (unknown) reduction. (units unknown) (unknown) (unknown) (no date) (unknown) (unknown) release (units unknown) (unknown) (unknown) (no date) (unknown) (unknown) sedation during the 1st reduction. She states that today she had gotten up from (units unknown) (unknown) (unknown) (no date) (unknown) (unknown) since her total hip arthroplasty and potentially the 4th dislocation since the (units unknown) (unknown) (unknown) (no date) (unknown) (unknown) since the event. (units unknown) (unknown) (unknown) (no date) (unknown) (unknown) solifenacin 10 mg tablet (Vesicare) 10 mg PO DAILY 08/13/22 10/02/22 (units unknown) (unknown) (unknown) (no date) (unknown) (unknown) the operating room f or reduction secondary to issues that she had with the (units unknown) (unknown) (unknown) (no date) (unknown) (unknown) the (units unknown) (unknown) (unknown) (no date) (unknown) (unknown) tissue (units unknown) (unknown) (unknown) (no date) (unknown) (unknown) using the toilet. Sh e states she was standing and not moving. She states she (units unknown) (unknown) (unknown) (no date) (unknown) (unknown) was using her walker to support herself she states that she felt like her left (units unknown) (unknown) Result panel [id number] (unknown) (no date) (unknown) (unknown) (no value) (units unknown) (unknown) (unknown) (no date) (unknown) (unknown) 10/03/22 (units unknown) (unknown) (unknown) (no date) (unknown) (unknown) [facility] [address] [place] [address] (units unknown) (unknown) (unknown) (no date) (unknown) (unknown) 18:04. [facility], CR, XR HIP LT 1V, 10/02/2022, 19:54. (units unknown) (unknown) (unknown) (no date) (unknown) (unknown) 10/02/2022, (units unknown) (unknown) (unknown) (no date) (unknown) (unknown) [id number] (units unknown) (unknown) (unknown) (no date) (unknown) (unknown) Accession Number: [id number] (units unknown) (unknown) (unknown) (no date) (unknown) (unknown) Age/Sex: 72 / F Date of Service: (units unknown) (unknown) (unknown) (no date) (unknown) (unknown) [place] [address] (units unknown) (unknown) (unknown) (no date) (unknown) (unknown) Approved by: Elliott Asher M.D. on 10/03/2022 at 8:16 (units unknown) (unknown) (unknown) (no date) (unknown) (unknown) Bones: Post left hip arthroplasty, with hardware components in expected (units unknown) (unknown) (unknown) (no date) (unknown) (unknown) COMPARISON: [facility], CR, XR HIP W PEL IF DONE LT 2V, 09/27/2022, 15:02. (units unknown) (unknown) (unknown) (no date) (unknown) (unknown) CR, XR HIP (units unknown) (unknown) (unknown) (no date) (unknown) (unknown) : 1950 Acct:[id number] (units unknown) (unknown) (unknown) (no date) (unknown) (unknown) Dictated by: Elliott Asher M.D. on 10/03/2022 at 8:14 (units unknown) (unknown) (unknown) (no date) (unknown) (unknown) FINDINGS: (units unknown) (unknown) (unknown) (no date) (unknown) (unknown) Hospital, CR, XR HIP W PEL IF DONE LT 2V, 09/27/2022, 19:35. [facility], (units unknown) (unknown) (unknown) (no date) (unknown) (unknown) IMPRESSION: (units unknown) (unknown) (unknown) (no date) (unknown) (unknown) INDICATIONS: possibl e dislocation (units unknown) (unknown) (unknown) (no date) (unknown) (unknown) [facility] (units unknown) (unknown) (unknown) (no date) (unknown) (unknown) [place] (units unknown) (unknown) (unknown) (no date) (unknown) (unknown) LT 1V, 09/29/2022, 16:02. [facility], CR, XR HIP W PEL IF DONE LT 2V, (units unknown) (unknown) (unknown) (no date) (unknown) (unknown) Loc: AC 219-1 (units unknown) (unknown) (unknown) (no date) (unknown) (unknown) Minimal (units unknown) (unknown) (unknown) (no date) (unknown) (unknown) No hip dislocation. (units unknown) (unknown) (unknown) (no date) (unknown) (unknown) Ordering Provider: Jorge Aviles MD (units unknown) (unknown) (unknown) (no date) (unknown) (unknown) PROCEDURE: XR HIP LT 1V (units unknown) (unknown) (unknown) (no date) (unknown) (unknown) Patient: Charisma Garciamike lane MR#: [id number] (units unknown) (unknown) (unknown) (no date) (unknown) (unknown) Prior greater trochanter fracture. (units unknown) (unknown) (unknown) (no date) (unknown) (unknown) Procedure: XR hip LT 1V (units unknown) (unknown) (unknown) (no date) (unknown) (unknown) Signed (units unknown) (unknown) (unknown) (no date) (unknown) (unknown) Soft tissues: Overlying postoperative changes are noted. No suspicious soft (units unknown) (unknown) (unknown) (no date) (unknown) (unknown) TECHNIQUE: 1 view(s) of the hip acquired. (units unknown) (unknown) (unknown) (no date) (unknown) (unknown) This report is concordant with the overnight preliminary interpretation. (units unknown) (unknown) (unknown) (no date) (unknown) (unknown) XRay Report (units unknown) (unknown) (unknown) (no date) (unknown) (unknown) densities. (units unknown) (unknown) (unknown) (no date) (unknown) (unknown) displacement. (units unknown) (unknown) (unknown) (no date) (unknown) (unknown) hip joint appears congruent. Prior fracture of the left greater trochanter. (units unknown) (unknown) (unknown) (no date) (unknown) (unknown) positions. The (units unknown) (unknown) (unknown) (no date) (unknown) (unknown) tissue (units unknown) (unknown) Result panel 1340 (unknown) (no date) (unknown) (unknown) (no value) (units unknown) (unknown) (unknown) (no date) (unknown) (unknown) <No data on this corbin e meets the specified criteria> (units unknown) (unknown) (unknown) (no date) (unknown) (unknown) (past 8 hours): (units unknown) (unknown) (unknown) (no date) (unknown) (unknown) -continue with multimodal pain management (units unknown) (unknown) (unknown) (no date) (unknown) (unknown) 10/02/22 10/02/22 10/02/22 (units unknown) (unknown) (unknown) (no date) (unknown) (unknown) 10/02/22 17:57 (units unknown) (unknown) (unknown) (no date) (unknown) (unknown) 10/03/22 0840 (units unknown) (unknown) (unknown) (no date) (unknown) (unknown) 10/03/22 (units unknown) (unknown) (unknown) (no date) (unknown) (unknown) 04:12 10/03/22 (units unknown) (unknown) (unknown) (no date) (unknown) (unknown) 08:21 (units unknown) (unknown) (unknown) (no date) (unknown) (unknown) 17:57 17:57 18:42 (units unknown) (unknown) (unknown) (no date) (unknown) (unknown) 3151 (units unknown) (unknown) (unknown) (no date) (unknown) (unknown) Actual Procedure [place] e Surgeon (units unknown) (unknown) (unknown) (no date) (unknown) (unknown) Age/Sex: 72 / F (units unknown) (unknown) (unknown) (no date) (unknown) (unknown) Assessment + Plan Post-op (units unknown) (unknown) (unknown) (no date) (unknown) (unknown) BUN 29 H (units unknown) (unknown) (unknown) (no date) (unknown) (unknown) BUN/Creatinine Ratio 27.6 H (units unknown) (unknown) (unknown) (no date) (unknown) (unknown) Baso # (Auto) 100 (units unknown) (unknown) (unknown) (no date) (unknown) (unknown) Baso % (Auto) 1.1 (units unknown) (unknown) (unknown) (no date) (unknown) (unknown) Blood Pressure 96/60 105/57 L (units unknown) (unknown) (unknown) (no date) (unknown) (unknown) Calcium 8.4 (units unknown) (unknown) (unknown) (no date) (unknown) (unknown) Carbon Dioxide 29 (units unknown) (unknown) (unknown) (no date) (unknown) (unknown) Chloride 103 (units unknown) (unknown) (unknown) (no date) (unknown) (unknown) Creatinine 1.05 H (units unknown) (unknown) (unknown) (no date) (unknown) (unknown) : 1950 Acct:[id number] (units unknown) (unknown) (unknown) (no date) (unknown) (unknown) Date of Service: 10/02/22 (units unknown) (unknown) (unknown) (no date) (unknown) (unknown) Deep Vein Thrombosis/Pulmonary Embolism Present on Admission: No (units unknown) (unknown) (unknown) (no date) (unknown) (unknown) Depression (units unknown) (unknown) (unknown) (no date) (unknown) (unknown) Diverticulitis (units unknown) (unknown) (unknown) (no date) (unknown) (unknown) Eos # (Auto) 600 H (units unknown) (unknown) (unknown) (no date) (unknown) (unknown) Eos % (Auto) 9.6 H (units unknown) (unknown) (unknown) (no date) (unknown) (unknown) Estimated GFR 56 L (units unknown) (unknown) (unknown) (no date) (unknown) (unknown) Exam (units unknown) (unknown) (unknown) (no date) (unknown) (unknown) GERD (gastroesophage al reflux disease) (units unknown) (unknown) (unknown) (no date) (unknown) (unknown) Glucose 93 (units unknown) (unknown) (unknown) (no date) (unknown) (unknown) HLD (hyperlipidemia) (units unknown) (unknown) (unknown) (no date) (unknown) (unknown) Hct 29.5 L (units unknown) (unknown) (unknown) (no date) (unknown) (unknown) Hearing impaired (units unknown) (unknown) (unknown) (no date) (unknown) (unknown) Hgb 10.0 L (units unknown) (unknown) (unknown) (no date) (unknown) (unknown) History of bladder surgery (units unknown) (unknown) (unknown) (no date) (unknown) (unknown) History of total lef t knee replacement (units unknown) (unknown) (unknown) (no date) (unknown) (unknown) History of total rig ht knee replacement (units unknown) (unknown) (unknown) (no date) (unknown) (unknown) Hx of left breast biopsy (units unknown) (unknown) (unknown) (no date) (unknown) (unknown) Hx of right breast biopsy (units unknown) (unknown) (unknown) (no date) (unknown) (unknown) Hx of tonsillectomy (units unknown) (unknown) (unknown) (no date) (unknown) (unknown) [address] [address] (units unknown) (unknown) (unknown) (no date) (unknown) (unknown) Laboratory Results - last 24 hr (units unknown) (unknown) (unknown) (no date) (unknown) (unknown) Labs (units unknown) (unknown) (unknown) (no date) (unknown) (unknown) Labs: (units unknown) (unknown) (unknown) (no date) (unknown) (unknown) Lymph # (Auto) 1500 (units unknown) (unknown) (unknown) (no date) (unknown) (unknown) Lymph % (Auto) 22.1 L (units unknown) (unknown) (unknown) (no date) (unknown) (unknown) MCH 29.9 (units unknown) (unknown) (unknown) (no date) (unknown) (unknown) MCHC 33.8 (units unknown) (unknown) (unknown) (no date) (unknown) (unknown) MCV 88.3 (units unknown) (unknown) (unknown) (no date) (unknown) (unknown) Medical History (units unknown) (unknown) (unknown) (no date) (unknown) (unknown) [place] # (Auto) 700 (units unknown) (unknown) (unknown) (no date) (unknown) (unknown) [place] % (Auto) 10.1 (units unknown) (unknown) (unknown) (no date) (unknown) (unknown) Neut # (Auto) 3800 (units unknown) (unknown) (unknown) (no date) (unknown) (unknown) Neut % (Auto) 57.1 (units unknown) (unknown) (unknown) (no date) (unknown) (unknown) Objective (units unknown) (unknown) (unknown) (no date) (unknown) (unknown) Operation Date: 10/02/22 20:00 (units unknown) (unknown) (unknown) (no date) (unknown) (unknown) Operation Date: 10/04/22 13:45 (units unknown) (unknown) (unknown) (no date) (unknown) (unknown) Osteoarthritis (units unknown) (unknown) (unknown) (no date) (unknown) (unknown) Oxygen Delivery Meth od Room Air (units unknown) (unknown) (unknown) (no date) (unknown) (unknown) Oxygen Flow Rate 0 0 (units unknown) (unknown) (unknown) (no date) (unknown) (unknown) Oxygen Flow Rate 0 (units unknown) (unknown) (unknown) (no date) (unknown) (unknown) PFSH (units unknown) (unknown) (unknown) (no date) (unknown) (unknown) Patient: Barbara Garcia MR#: [id number] (units unknown) (unknown) (unknown) (no date) (unknown) (unknown) Plt Count 322 (units unknown) (unknown) (unknown) (no date) (unknown) (unknown) Postoperative day: 1 (units unknown) (unknown) (unknown) (no date) (unknown) (unknown) Postoperative plan narrative: -NPO today as planning for surgery this afternoon (units unknown) (unknown) (unknown) (no date) (unknown) (unknown) Postoperative status narrative: -multiple dislocations, status post left SARA (units unknown) (unknown) (unknown) (no date) (unknown) (unknown) Postoperative (units unknown) (unknown) (unknown) (no date) (unknown) (unknown) Potassium 3.6 (units unknown) (unknown) (unknown) (no date) (unknown) (unknown) Procedures (units unknown) (unknown) (unknown) (no date) (unknown) (unknown) Procedures: (units unknown) (unknown) (unknown) (no date) (unknown) (unknown) Progress Note (units unknown) (unknown) (unknown) (no date) (unknown) (unknown) Provider: Chris Leos P.A-C (units unknown) (unknown) (unknown) (no date) (unknown) (unknown) Pulse Oximetry 94 94 (units unknown) (unknown) (unknown) (no date) (unknown) (unknown) Pulse Rate 83 79 (units unknown) (unknown) (unknown) (no date) (unknown) (unknown) Quality (units unknown) (unknown) (unknown) (no date) (unknown) (unknown) RBC 3.34 L (units unknown) (unknown) (unknown) (no date) (unknown) (unknown) RDW 14.5 (units unknown) (unknown) (unknown) (no date) (unknown) (unknown) Respiratory Rate 18 18 (units unknown) (unknown) (unknown) (no date) (unknown) (unknown) SARS-CoV-2 (PCR) Negative (units unknown) (unknown) (unknown) (no date) (unknown) (unknown) Seasonal allergies (units unknown) (unknown) (unknown) (no date) (unknown) (unknown) Signed By:<Electronically signed by Nathalia Leos> (units unknown) (unknown) (unknown) (no date) (unknown) (unknown) Smoking Status: Carmencita rubin smoker (units unknown) (unknown) (unknown) (no date) (unknown) (unknown) Social History (units unknown) (unknown) (unknown) (no date) (unknown) (unknown) Sodium 139 (units unknown) (unknown) (unknown) (no date) (unknown) (unknown) Surgical History (units unknown) (unknown) (unknown) (no date) (unknown) (unknown) Temperature 97.9 F 9 8 F (units unknown) (unknown) (unknown) (no date) (unknown) (unknown) VTE (units unknown) (unknown) (unknown) (no date) (unknown) (unknown) Vital Signs (units unknown) (unknown) (unknown) (no date) (unknown) (unknown) WBC 6.7 (units unknown) (unknown) (unknown) (no date) (unknown) (unknown) [Embedded Image Not Available] (units unknown) (unknown) (unknown) (no date) (unknown) (unknown) alcohol intake: current (units unknown) (unknown) (unknown) (no date) (unknown) (unknown) household members: spouse (units unknown) (unknown) (unknown) (no date) (unknown) (unknown) p Closed Reduction Dislocated Hip Jorge Aviles MD (units unknown) (unknown) Result panel 1341 (unknown) (no date) (unknown) (unknown) (no value) (units unknown) (unknown) (unknown) (no date) (unknown) (unknown) 10/04/22 (units unknown) (unknown) (unknown) (no date) (unknown) (unknown) [address] [place] [address] (units unknown) (unknown) (unknown) (no date) (unknown) (unknown) [id number] (units unknown) (unknown) (unknown) (no date) (unknown) (unknown) Accession Number: [id number] (units unknown) (unknown) (unknown) (no date) (unknown) (unknown) Age/Sex: 72 / F Date of Service: (units unknown) (unknown) (unknown) (no date) (unknown) (unknown) [place] [id number] (units unknown) (unknown) (unknown) (no date) (unknown) (unknown) Approved by: Antonio wahl M.D. on 10/05/2022 at 11:04 (units unknown) (unknown) (unknown) (no date) (unknown) (unknown) Bones: Patient is status post left total hip arthroplasty revision, with (units unknown) (unknown) (unknown) (no date) (unknown) (unknown) COMPARISON: None. (units unknown) (unknown) (unknown) (no date) (unknown) (unknown) : 1950 Acct:[id number] (units unknown) (unknown) (unknown) (no date) (unknown) (unknown) Dictated by: Antonio wahl M.D. on 10/05/2022 at 11:04 (units unknown) (unknown) (unknown) (no date) (unknown) (unknown) FINDINGS: (units unknown) (unknown) (unknown) (no date) (unknown) (unknown) IMPRESSION: Postop changes from left hip arthroplasty revision with anatomic (units unknown) (unknown) (unknown) (no date) (unknown) (unknown) INDICATIONS: SARA lef t hip revision (units unknown) (unknown) (unknown) (no date) (unknown) (unknown) [facility] (units unknown) (unknown) (unknown) (no date) (unknown) (unknown) Loc: AC 219-1 (units unknown) (unknown) (unknown) (no date) (unknown) (unknown) Ordering Provider: Raquel Romano P.A-C (units unknown) (unknown) (unknown) (no date) (unknown) (unknown) PROCEDURE: XR PELVIS 1-2V (units unknown) (unknown) (unknown) (no date) (unknown) (unknown) Patient: Barbara Garcia MR#: [id number] (units unknown) (unknown) (unknown) (no date) (unknown) (unknown) Procedure: XR pelvis 1-2V (units unknown) (unknown) (unknown) (no date) (unknown) (unknown) Signed (units unknown) (unknown) (unknown) (no date) (unknown) (unknown) Soft tissues: Overlying postoperative changes are noted. No suspicious soft (units unknown) (unknown) (unknown) (no date) (unknown) (unknown) TECHNIQUE: 1 view of the lower pelvis acquired. (units unknown) (unknown) (unknown) (no date) (unknown) (unknown) XRay Report (units unknown) (unknown) (unknown) (no date) (unknown) (unknown) alignment. (units unknown) (unknown) (unknown) (no date) (unknown) (unknown) components in expect ed positions. The hip joint appears congruent. The (units unknown) (unknown) (unknown) (no date) (unknown) (unknown) densities. (units unknown) (unknown) (unknown) (no date) (unknown) (unknown) hardware (units unknown) (unknown) (unknown) (no date) (unknown) (unknown) left hip (units unknown) (unknown) (unknown) (no date) (unknown) (unknown) structures appear intact. (units unknown) (unknown) (unknown) (no date) (unknown) (unknown) tissue (units unknown) (unknown) (unknown) (no date) (unknown) (unknown) visualized bony (units unknown) (unknown) Result panel 1342 (unknown) (no date) (unknown) (unknown) (no value) (units unknown) (unknown) (unknown) (no date) (unknown) (unknown) 10/04/22 1450 (units unknown) (unknown) (unknown) (no date) (unknown) (unknown) 3151 (units unknown) (unknown) (unknown) (no date) (unknown) (unknown) Age/Sex: 72 / F (units unknown) (unknown) (unknown) (no date) (unknown) (unknown) COVID-19 status: Negative (units unknown) (unknown) (unknown) (no date) (unknown) (unknown) COVID-19 (units unknown) (unknown) (unknown) (no date) (unknown) (unknown) Changes to H+P: Yes (units unknown) (unknown) (unknown) (no date) (unknown) (unknown) : 1950 Acct:[id number] (units unknown) (unknown) (unknown) (no date) (unknown) (unknown) Date of Service: 10/02/22 (units unknown) (unknown) (unknown) (no date) (unknown) (unknown) H+P completed within 30 days and has changed as indicated here:: Patient has a (units unknown) (unknown) (unknown) (no date) (unknown) (unknown) History + Physical reviewed/Exam performed by Physician: Yes (units unknown) (unknown) (unknown) (no date) (unknown) (unknown) Interval Note (units unknown) (unknown) (unknown) (no date) (unknown) (unknown) [address] [address] (units unknown) (unknown) (unknown) (no date) (unknown) (unknown) Patient: Barbara Garcia MR#: [id number] (units unknown) (unknown) (unknown) (no date) (unknown) (unknown) Plan is sneaker back to the operating room for revision total hip and open (units unknown) (unknown) (unknown) (no date) (unknown) (unknown) Pre-operative Note (units unknown) (unknown) (unknown) (no date) (unknown) (unknown) Provider: Willis River MD (units unknown) (unknown) (unknown) (no date) (unknown) (unknown) Signed By:<Electronically signed by Annika River MD> (units unknown) (unknown) (unknown) (no date) (unknown) (unknown) greater trochanter fracture. She is having severe issues with instability. 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 She has had problems with (units unknown) (unknown) (unknown) (no date) (unknown) (unknown) ongoing instability. She has a history of multiple dislocations and a left hip (units unknown) (unknown) (unknown) (no date) (unknown) (unknown) options risks benefi ts and complications were discussed in detail. She (units unknown) (unknown) (unknown) (no date) (unknown) (unknown) reduction internal fixation of her greater trochanter fracture. The procedure (units unknown) (unknown) (unknown) (no date) (unknown) (unknown) understands and agrees. (units unknown) (unknown) Result panel 1343 (unknown) (no date) (unknown) (unknown) (no value) (units unknown) (unknown) (unknown) (no date) (unknown) (unknown) 3151 (units unknown) (unknown) (unknown) (no date) (unknown) (unknown) Age/Sex: 72 / F (units unknown) (unknown) (unknown) (no date) (unknown) (unknown) Anesthesia Type: General and Spinal (units unknown) (unknown) (unknown) (no date) (unknown) (unknown) [employer]: Kelley Springer (units unknown) (unknown) (unknown) (no date) (unknown) (unknown) Blood products transfused: none (units unknown) (unknown) (unknown) (no date) (unknown) (unknown) Closure Type: primary (units unknown) (unknown) (unknown) (no date) (unknown) (unknown) Complications: none (units unknown) (unknown) (unknown) (no date) (unknown) (unknown) Condition: stable (units unknown) (unknown) (unknown) (no date) (unknown) (unknown) : 1950 Acct:[id number] (units unknown) (unknown) (unknown) (no date) (unknown) (unknown) Date of Service: 10/02/22 (units unknown) (unknown) (unknown) (no date) (unknown) (unknown) Date of procedure: 10/04/22 (units unknown) (unknown) (unknown) (no date) (unknown) (unknown) Disposition: Acute Care (units unknown) (unknown) (unknown) (no date) (unknown) (unknown) Estimated Blood Loss (mL): 300 (units unknown) (unknown) (unknown) (no date) (unknown) (unknown) Findings: (units unknown) (unknown) (unknown) (no date) (unknown) (unknown) Indications: (units unknown) (unknown) (unknown) (no date) (unknown) (unknown) [address] [address] (units unknown) (unknown) (unknown) (no date) (unknown) (unknown) Operative Date/Time/Diagnoses (units unknown) (unknown) (unknown) (no date) (unknown) (unknown) Operative Note (units unknown) (unknown) (unknown) (no date) (unknown) (unknown) Operative Notes (units unknown) (unknown) (unknown) (no date) (unknown) (unknown) Patient: Charisma Garciamike lane MR#: [id number] (units unknown) (unknown) (unknown) (no date) (unknown) (unknown) Plan for aftercare: (units unknown) (unknown) (unknown) (no date) (unknown) (unknown) Post-op diagnosis: same (units unknown) (unknown) (unknown) (no date) (unknown) (unknown) Post-operative (units unknown) (unknown) (unknown) (no date) (unknown) (unknown) 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, left greater (units unknown) (unknown) (unknown) (no date) (unknown) (unknown) Procedure + Clinicians (units unknown) (unknown) (unknown) (no date) (unknown) (unknown) Procedure: (units unknown) (unknown) (unknown) (no date) (unknown) (unknown) Prosthetic devices, grafts, tissues, transplants, or devices: (units unknown) (unknown) (unknown) (no date) (unknown) (unknown) Provider: Willis River MD (units unknown) (unknown) (unknown) (no date) (unknown) (unknown) Revision left total hip arthroplasty, ORIF left greater trochanter (units unknown) (unknown) (unknown) (no date) (unknown) (unknown) Same procedure as scheduled: Yes (units unknown) (unknown) (unknown) (no date) (unknown) (unknown) Signed By: (units unknown) (unknown) (unknown) (no date) (unknown) (unknown) Mirian Redapt femur, Redapt acetabulum, (units unknown) (unknown) (unknown) (no date) (unknown) (unknown) Specimen(s): none sent (units unknown) (unknown) (unknown) (no date) (unknown) (unknown) Surgeon: Annika River (units unknown) (unknown) (unknown) (no date) (unknown) (unknown) The patient will be maintained on a standard total hip replacement protocol with (units unknown) (unknown) (unknown) (no date) (unknown) (unknown) This is a 72-year-ol d female has a history of a left hip total hip arthroplasty. (units unknown) (unknown) (unknown) (no date) (unknown) (unknown) Time of procedure: 15:00 (units unknown) (unknown) (unknown) (no date) (unknown) (unknown) Unfortunately she alexander s had problems with instability and has a left hip greater (units unknown) (unknown) (unknown) (no date) (unknown) (unknown) Very soft bone, adequate reduction of the greater trochanter fracture, adequate (units unknown) (unknown) (unknown) (no date) (unknown) (unknown) additional problems requiring additional operations and risks for anesthesia as (units unknown) (unknown) (unknown) (no date) (unknown) (unknown) benefits and complications including but not limited to, leg length inequality, (units unknown) (unknown) (unknown) (no date) (unknown) (unknown) hip arthroplasty and ORIF of her greater trochanter fracture. Options risks (units unknown) (unknown) (unknown) (no date) (unknown) (unknown) patient will be discharged home when safe for the home environment. (units unknown) (unknown) (unknown) (no date) (unknown) (unknown) persistent instability, infection, failure to unite or heal her trochanter, (units unknown) (unknown) (unknown) (no date) (unknown) (unknown) receive Aspirin and sequential compression devices for DVT prophylaxis. The (units unknown) (unknown) (unknown) (no date) (unknown) (unknown) stability (units unknown) (unknown) (unknown) (no date) (unknown) (unknown) trochanter fracture (units unknown) (unknown) (unknown) (no date) (unknown) (unknown) trochanter fracture. She is brought to the operating room for revision total (units unknown) (unknown) (unknown) (no date) (unknown) (unknown) weight bearing as tolerated and posterior hip precautions. The patient will (units unknown) (unknown) (unknown) (no date) (unknown) (unknown) well as potential medical problems was discussed in detail. (units unknown) (unknown) Result panel 1344 (unknown) (no date) (unknown) (unknown) (no value) (units unknown) (unknown) (unknown) (no date) (unknown) (unknown) 3151 (units unknown) (unknown) (unknown) (no date) (unknown) (unknown) 45 degrees internal rotation without dislocation. At 90 degrees flexion, (units unknown) (unknown) (unknown) (no date) (unknown) (unknown) 48 mm, 2 locking screws, 1 nonlocking screw, dual mobility liner, 2 cerclage (units unknown) (unknown) (unknown) (no date) (unknown) (unknown) A cerclage wire was placed around the femur. It was carefully tightened. The (units unknown) (unknown) (unknown) (no date) (unknown) (unknown) Age/Sex: 72 / F (units unknown) (unknown) (unknown) (no date) (unknown) (unknown) Anesthesia Type: General and Spinal (units unknown) (unknown) (unknown) (no date) (unknown) (unknown) [employer]: Kelley Springer (units unknown) (unknown) (unknown) (no date) (unknown) (unknown) Betadine soak was performed while trialing with head options. The hip was (units unknown) (unknown) (unknown) (no date) (unknown) (unknown) Blood products transfused: none (units unknown) (unknown) (unknown) (no date) (unknown) (unknown) Closure Type: primary (units unknown) (unknown) (unknown) (no date) (unknown) (unknown) Complications: none (units unknown) (unknown) (unknown) (no date) (unknown) (unknown) Condition: stable (units unknown) (unknown) (unknown) (no date) (unknown) (unknown) : 1950 Acct:[id number] (units unknown) (unknown) (unknown) (no date) (unknown) (unknown) Date of Service: 10/02/22 (units unknown) (unknown) (unknown) (no date) (unknown) (unknown) Date of procedure: 10/04/22 (units unknown) (unknown) (unknown) (no date) (unknown) (unknown) Disposition: Acute Care (units unknown) (unknown) (unknown) (no date) (unknown) (unknown) Estimated Blood Loss (mL): 300 (units unknown) (unknown) (unknown) (no date) (unknown) (unknown) Finally the femoral head was impacted onto the stem. The acetabulum was cleared (units unknown) (unknown) (unknown) (no date) (unknown) (unknown) Findings: (units unknown) (unknown) (unknown) (no date) (unknown) (unknown) Indications: (units unknown) (unknown) (unknown) (no date) (unknown) (unknown) [address] [address] (units unknown) (unknown) (unknown) (no date) (unknown) (unknown) Operative Date/Time/Diagnoses (units unknown) (unknown) (unknown) (no date) (unknown) (unknown) Operative Note (units unknown) (unknown) (unknown) (no date) (unknown) (unknown) Operative Notes (units unknown) (unknown) (unknown) (no date) (unknown) (unknown) Patient: Barbara Garcia MR#: [id number] (units unknown) (unknown) (unknown) (no date) (unknown) (unknown) Plan for aftercare: (units unknown) (unknown) (unknown) (no date) (unknown) (unknown) Post-op diagnosis: same (units unknown) (unknown) (unknown) (no date) (unknown) (unknown) Post-operative (units unknown) (unknown) (unknown) (no date) (unknown) (unknown) 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, left greater (units unknown) (unknown) (unknown) (no date) (unknown) (unknown) Procedure + Clinicians (units unknown) (unknown) (unknown) (no date) (unknown) (unknown) Procedure in detail: (units unknown) (unknown) (unknown) (no date) (unknown) (unknown) Procedure: (units unknown) (unknown) (unknown) (no date) (unknown) (unknown) Prosthetic devices, grafts, tissues, transplants, or devices: (units unknown) (unknown) (unknown) (no date) (unknown) (unknown) Provider: Willis River MD (units unknown) (unknown) (unknown) (no date) (unknown) (unknown) Retractors were plac ed to expose the acetabulum. We meticulously mobilize the (units unknown) (unknown) (unknown) (no date) (unknown) (unknown) Revision left total hip arthroplasty, ORIF left greater trochanter (units unknown) (unknown) (unknown) (no date) (unknown) (unknown) Same procedure as scheduled: Yes (units unknown) (unknown) (unknown) (no date) (unknown) (unknown) Screws were removed without difficulty. The cup was removed without difficulty. (units unknown) (unknown) (unknown) (no date) (unknown) (unknown) Signed By: (units unknown) (unknown) (unknown) (no date) (unknown) (unknown) Perico norman nephpamela Redapt femur size 15 by 190 standard offset, Redapt acetabulum (units unknown) (unknown) (unknown) (no date) (unknown) (unknown) Specimen(s): none sent (units unknown) (unknown) (unknown) (no date) (unknown) (unknown) Surgeon: Annika River (units unknown) (unknown) (unknown) (no date) (unknown) (unknown) The Reamer trial nec k option was placed. A trial head and neck were then placed (units unknown) (unknown) (unknown) (no date) (unknown) (unknown) The capsulomuscular flap was then repaired to the greater trochanter though an (units unknown) (unknown) (unknown) (no date) (unknown) (unknown) The final stem was then impacted into the prepared femoral canal. A brief (units unknown) (unknown) (unknown) (no date) (unknown) (unknown) The hip was approach ed through an approximately 24 cm incision centered over the (units unknown) (unknown) (unknown) (no date) (unknown) (unknown) The hip was then carefully dislocated posteriorly. She had an obvious (units unknown) (unknown) (unknown) (no date) (unknown) (unknown) The patient was seen in the pre-operative area, where the patient identified the (units unknown) (unknown) (unknown) (no date) (unknown) (unknown) The patient will be maintained on a standard total hip replacement protocol with (units unknown) (unknown) (unknown) (no date) (unknown) (unknown) There was no purulence. It was clear that the fascial sutures had failed. The (units unknown) (unknown) (unknown) (no date) (unknown) (unknown) There was really minimal to no bony ingrowth in either the stem or cup at this (units unknown) (unknown) (unknown) (no date) (unknown) (unknown) This is a 72-year-ol d female has a history of a left hip total hip arthroplasty. (units unknown) (unknown) (unknown) (no date) (unknown) (unknown) Time of procedure: 15:00 (units unknown) (unknown) (unknown) (no date) (unknown) (unknown) Unfortunately she alexander s had problems with instability and has a left hip greater (units unknown) (unknown) (unknown) (no date) (unknown) (unknown) Very soft bone, adequate reduction of the greater trochanter fracture, (units unknown) (unknown) (unknown) (no date) (unknown) (unknown) additional problems requiring additional operations and risks for anesthesia as (units unknown) (unknown) (unknown) (no date) (unknown) (unknown) and draped through sterile drapes. (units unknown) (unknown) (unknown) (no date) (unknown) (unknown) and really could not find evidence of any bony or component impingement. This (units unknown) (unknown) (unknown) (no date) (unknown) (unknown) and the hip relocate d and checked for leg length and stability. An (units unknown) (unknown) (unknown) (no date) (unknown) (unknown) and we were unable t o demonstrate anterior instability after revision. I think (units unknown) (unknown) (unknown) (no date) (unknown) (unknown) appeared to be adequately healed. There was a large seroma in the subcutaneous (units unknown) (unknown) (unknown) (no date) (unknown) (unknown) avoiding hip abducto r exercises because of her trochanteric repair. She should (units unknown) (unknown) (unknown) (no date) (unknown) (unknown) awl hole using the t ag sutures. The short external rotators were repaired with a (units unknown) (unknown) (unknown) (no date) (unknown) (unknown) barbed sutures and SteriStrips. An Aquacel Ag dressing was applied and the (units unknown) (unknown) (unknown) (no date) (unknown) (unknown) benefits and complications including but not limited to, leg length inequality, (units unknown) (unknown) (unknown) (no date) (unknown) (unknown) bite was obtained wi th an odd sized reamer. The cup 1 mm larger than the last (units unknown) (unknown) (unknown) (no date) (unknown) (unknown) cables, 22 x +4 Oxinium femoral head with dual mobility 22 x 36 mm insert, (units unknown) (unknown) (unknown) (no date) (unknown) (unknown) canal was then carefully reamed up to a 15. Lateralizing Reamer was also used. (units unknown) (unknown) (unknown) (no date) (unknown) (unknown) carefully passed and a [id number] was placed around the trochanter. (units unknown) (unknown) (unknown) (no date) (unknown) (unknown) comminuted slightly displaced trochanteric fracture, adequate stability after (units unknown) (unknown) (unknown) (no date) (unknown) (unknown) difficulty going up to a 50. Reaming was performed in 1 mm increments until good (units unknown) (unknown) (unknown) (no date) (unknown) (unknown) difficulty. The femu r was a little bit difficult to mobilize anteriorly but we (units unknown) (unknown) (unknown) (no date) (unknown) (unknown) dislocate the hip posteriorly. The head was removed. The stem was removed (units unknown) (unknown) (unknown) (no date) (unknown) (unknown) dislocation but it actually looked like it was best to go ahead and just (units unknown) (unknown) (unknown) (no date) (unknown) (unknown) environment. (units unknown) (unknown) (unknown) (no date) (unknown) (unknown) fascia mady was clos ed with Vicryl. The subcutaneous layer was closed with (units unknown) (unknown) (unknown) (no date) (unknown) (unknown) femur in order to protect it as much as possible and also allow adequate (units unknown) (unknown) (unknown) (no date) (unknown) (unknown) greater trochanter a nd curving gently posteriorly as it went proximally. This (units unknown) (unknown) (unknown) (no date) (unknown) (unknown) have anterior instability preoperatively. Her acetabular position was changed (units unknown) (unknown) (unknown) (no date) (unknown) (unknown) hip arthroplasty and ORIF of her greater trochanter fracture. Options risks (units unknown) (unknown) (unknown) (no date) (unknown) (unknown) identified and protected throughout the case. The capsulomuscular flap was (units unknown) (unknown) (unknown) (no date) (unknown) (unknown) internal rotation to 70 was possible before dislocation. I meticulously checked (units unknown) (unknown) (unknown) (no date) (unknown) (unknown) intraoperative film confirmed the component position and acceptable bony contact (units unknown) (unknown) (unknown) (no date) (unknown) (unknown) left hip as the operative site and this was marked with my initials. The patient (units unknown) (unknown) (unknown) (no date) (unknown) (unknown) meticulously irrigat ed with normal saline. An additional cerclage wire was (units unknown) (unknown) (unknown) (no date) (unknown) (unknown) meticulously reduced the anterior superior dislocation back into the acetabulum. (units unknown) (unknown) (unknown) (no date) (unknown) (unknown) nonabsorbable suture . A deep drain was placed and brought out anteriorly. The (units unknown) (unknown) (unknown) (no date) (unknown) (unknown) of all material and the hip relocated one final time. (units unknown) (unknown) (unknown) (no date) (unknown) (unknown) on the femur and adequate positioning of the cup. The patient was stable in the (units unknown) (unknown) (unknown) (no date) (unknown) (unknown) overall and it was felt that we could probably go up to a 48 would have (units unknown) (unknown) (unknown) (no date) (unknown) (unknown) patient was taken to recovery having tolerated the procedure well. (units unknown) (unknown) (unknown) (no date) (unknown) (unknown) patient will receive Aspirin and sequential compression devices for DVT (units unknown) (unknown) (unknown) (no date) (unknown) (unknown) persistent instability, infection, failure to unite or heal her trochanter, (units unknown) (unknown) (unknown) (no date) (unknown) (unknown) placed on the operative table in the right lateral decubitus position after (units unknown) (unknown) (unknown) (no date) (unknown) (unknown) point. Some of the explant reamers were carefully used just remove any soft (units unknown) (unknown) (unknown) (no date) (unknown) (unknown) position of sleep, o f squatting, and could be put through a range of motion with (units unknown) (unknown) (unknown) (no date) (unknown) (unknown) prepared from the ankle to the iliac crest with ChloroPrep in the usual fashion (units unknown) (unknown) (unknown) (no date) (unknown) (unknown) prophylaxis. The patient will be discharged home when safe for the home (units unknown) (unknown) (unknown) (no date) (unknown) (unknown) protected it as much as possible. It was prepared to cerclage it prior to (units unknown) (unknown) (unknown) (no date) (unknown) (unknown) raised and tagged fo r later repair. The hip was dislocated anteriorly. We (units unknown) (unknown) (unknown) (no date) (unknown) (unknown) reamer was then inserted using the appropriate anteversion guides. It was then (units unknown) (unknown) (unknown) (no date) (unknown) (unknown) received pre-operati ve antibiotics and was taken to the operating room and (units unknown) (unknown) (unknown) (no date) (unknown) (unknown) reconstruction (units unknown) (unknown) (unknown) (no date) (unknown) (unknown) satisfactory anesthesia. A time clock mechanic out was performed. The left leg was (units unknown) (unknown) (unknown) (no date) (unknown) (unknown) self retaining retractor. The previous skin incision was excised. The wound (units unknown) (unknown) (unknown) (no date) (unknown) (unknown) she needs some component of global precautions with full weight-bearing and (units unknown) (unknown) (unknown) (no date) (unknown) (unknown) stabilized with 2 locking screws and a nonlocking screw. Acetabular stability (units unknown) (unknown) (unknown) (no date) (unknown) (unknown) sutures were removed . Charnley retractor and Gelpi retractors were placed. The (units unknown) (unknown) (unknown) (no date) (unknown) (unknown) tissue was mobilized with care being taken to avoid the sciatic nerve, which was (units unknown) (unknown) (unknown) (no date) (unknown) (unknown) tissue. The acetabul um was meticulously checked. She had a fairly thin wall (units unknown) (unknown) (unknown) (no date) (unknown) (unknown) tissues. Fluid was aspirated and sent for Gram stain culture and sensitivity. (units unknown) (unknown) (unknown) (no date) (unknown) (unknown) trials were removed. (units unknown) (unknown) (unknown) (no date) (unknown) (unknown) trochanter fracture (units unknown) (unknown) (unknown) (no date) (unknown) (unknown) trochanter fracture. She is brought to the operating room for revision total (units unknown) (unknown) (unknown) (no date) (unknown) (unknown) trochanteric fractur e. Specifically looked at that to make sure that we (units unknown) (unknown) (unknown) (no date) (unknown) (unknown) visualization of the acetabular component. Polyethylene was removed without (units unknown) (unknown) (unknown) (no date) (unknown) (unknown) was carried sharply to the fascia mady, which was divided and retracted with a (units unknown) (unknown) (unknown) (no date) (unknown) (unknown) was checked and it w as noted to have adequate stability. A dual mobility liner (units unknown) (unknown) (unknown) (no date) (unknown) (unknown) was felt to be satisfactory and the appropriate components were opened, and the (units unknown) (unknown) (unknown) (no date) (unknown) (unknown) was then inserted. (units unknown) (unknown) (unknown) (no date) (unknown) (unknown) weight bearing as tolerated and primarily posterior hip precautions. She did (units unknown) (unknown) (unknown) (no date) (unknown) (unknown) well as potential medical problems was discussed in detail. (units unknown) (unknown) (unknown) (no date) (unknown) (unknown) without difficulty. (units unknown) (unknown) (unknown) (no date) (unknown) (unknown) work to keep her walter t midline and incision and flexion greater than 90?. The (units unknown) (unknown) (unknown) (no date) (unknown) (unknown) worked throughout th e procedure in order to allow adequate visualization. (units unknown) (unknown) Result panel [id number] (unknown) (no date) (unknown) (unknown) (no value) (units unknown) (unknown) (unknown) (no date) (unknown) (unknown) 10/04/221954 (units unknown) (unknown) (unknown) (no date) (unknown) (unknown) 3151 (units unknown) (unknown) (unknown) (no date) (unknown) (unknown) 45 degrees internal rotation without dislocation. At 90 degrees flexion, (units unknown) (unknown) (unknown) (no date) (unknown) (unknown) 48 mm, 2 locking screws, 1 nonlocking screw, dual mobility liner, 2 cerclage (units unknown) (unknown) (unknown) (no date) (unknown) (unknown) A cerclage wire was placed around the femur. It was carefully tightened. The (units unknown) (unknown) (unknown) (no date) (unknown) (unknown) Age/Sex: 72 / F (units unknown) (unknown) (unknown) (no date) (unknown) (unknown) Anesthesia Type: General and Spinal (units unknown) (unknown) (unknown) (no date) (unknown) (unknown) [employer]: Kelley Springer (units unknown) (unknown) (unknown) (no date) (unknown) (unknown) Betadine soak was performed while trialing with head options. The hip was (units unknown) (unknown) (unknown) (no date) (unknown) (unknown) Blood products transfused: none (units unknown) (unknown) (unknown) (no date) (unknown) (unknown) Closure Type: primary (units unknown) (unknown) (unknown) (no date) (unknown) (unknown) Complications: none (units unknown) (unknown) (unknown) (no date) (unknown) (unknown) Condition: stable (units unknown) (unknown) (unknown) (no date) (unknown) (unknown) : 1950 Acct:[id number] (units unknown) (unknown) (unknown) (no date) (unknown) (unknown) Date of Service: 10/02/22 (units unknown) (unknown) (unknown) (no date) (unknown) (unknown) Date of procedure: 10/04/22 (units unknown) (unknown) (unknown) (no date) (unknown) (unknown) Disposition: Acute Care (units unknown) (unknown) (unknown) (no date) (unknown) (unknown) Estimated Blood Loss (mL): 300 (units unknown) (unknown) (unknown) (no date) (unknown) (unknown) Finally the femoral head was impacted onto the stem. The cerclage wires were (units unknown) (unknown) (unknown) (no date) (unknown) (unknown) Findings: (units unknown) (unknown) (unknown) (no date) (unknown) (unknown) Indications: (units unknown) (unknown) (unknown) (no date) (unknown) (unknown) [address] [address] (units unknown) (unknown) (unknown) (no date) (unknown) (unknown) Operative Date/Time/Diagnoses (units unknown) (unknown) (unknown) (no date) (unknown) (unknown) Operative Note (units unknown) (unknown) (unknown) (no date) (unknown) (unknown) Operative Notes (units unknown) (unknown) (unknown) (no date) (unknown) (unknown) Patient: Barbara Garcia MR#: [id number] (units unknown) (unknown) (unknown) (no date) (unknown) (unknown) Plan for aftercare: (units unknown) (unknown) (unknown) (no date) (unknown) (unknown) Post-op diagnosis: same (units unknown) (unknown) (unknown) (no date) (unknown) (unknown) Post-operative (units unknown) (unknown) (unknown) (no date) (unknown) (unknown) 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, left greater (units unknown) (unknown) (unknown) (no date) (unknown) (unknown) Procedure + Clinicians (units unknown) (unknown) (unknown) (no date) (unknown) (unknown) Procedure in detail: (units unknown) (unknown) (unknown) (no date) (unknown) (unknown) Procedure: (units unknown) (unknown) (unknown) (no date) (unknown) (unknown) Prosthetic devices, grafts, tissues, transplants, or devices: (units unknown) (unknown) (unknown) (no date) (unknown) (unknown) Provider: Willis River MD (units unknown) (unknown) (unknown) (no date) (unknown) (unknown) Retractors were plac ed to expose the acetabulum. We meticulously mobilize the (units unknown) (unknown) (unknown) (no date) (unknown) (unknown) Revision left total hip arthroplasty, ORIF left greater trochanter (units unknown) (unknown) (unknown) (no date) (unknown) (unknown) Same procedure as scheduled: Yes (units unknown) (unknown) (unknown) (no date) (unknown) (unknown) Screws were removed without difficulty. The cup was removed without difficulty. (units unknown) (unknown) (unknown) (no date) (unknown) (unknown) Signed By:<Electronically signed by Annika River MD> (units unknown) (unknown) (unknown) (no date) (unknown) (unknown) River and nubia Redapt femur size 15 by 190 standard offset, Redapt acetabulum (units unknown) (unknown) (unknown) (no date) (unknown) (unknown) Specimen(s): none sent (units unknown) (unknown) (unknown) (no date) (unknown) (unknown) Surgeon: Annika River (units unknown) (unknown) (unknown) (no date) (unknown) (unknown) The Reamer trial nec k option was placed. A trial head and neck were then placed (units unknown) (unknown) (unknown) (no date) (unknown) (unknown) The capsulomuscular flap was then repaired to the residual soft tissues deeply (units unknown) (unknown) (unknown) (no date) (unknown) (unknown) The final stem was then impacted into the prepared femoral canal. A brief (units unknown) (unknown) (unknown) (no date) (unknown) (unknown) The hip was approach ed through an approximately 24 cm incision centered over the (units unknown) (unknown) (unknown) (no date) (unknown) (unknown) The hip was then carefully dislocated posteriorly. She had an obvious (units unknown) (unknown) (unknown) (no date) (unknown) (unknown) The patient was seen in the pre-operative area, where the patient identified the (units unknown) (unknown) (unknown) (no date) (unknown) (unknown) The patient will be maintained on a standard total hip replacement protocol with (units unknown) (unknown) (unknown) (no date) (unknown) (unknown) There was no purulence. It was clear that the fascial sutures had failed. The (units unknown) (unknown) (unknown) (no date) (unknown) (unknown) There was really minimal to no bony ingrowth in either the stem or cup at this (units unknown) (unknown) (unknown) (no date) (unknown) (unknown) This is a 72-year-ol d female has a history of a left hip total hip arthroplasty. (units unknown) (unknown) (unknown) (no date) (unknown) (unknown) Time of procedure: 15:00 (units unknown) (unknown) (unknown) (no date) (unknown) (unknown) Unfortunately she alexander s had problems with instability and has a left hip greater (units unknown) (unknown) (unknown) (no date) (unknown) (unknown) Very soft bone, adequate reduction of the greater trochanter fracture, (units unknown) (unknown) (unknown) (no date) (unknown) (unknown) additional problems requiring additional operations and risks for anesthesia as (units unknown) (unknown) (unknown) (no date) (unknown) (unknown) and draped through sterile drapes. (units unknown) (unknown) (unknown) (no date) (unknown) (unknown) and really could not find evidence of any bony or component impingement. This (units unknown) (unknown) (unknown) (no date) (unknown) (unknown) and the hip relocate d and checked for leg length and stability. An (units unknown) (unknown) (unknown) (no date) (unknown) (unknown) and we were unable t o demonstrate anterior instability after revision. I think (units unknown) (unknown) (unknown) (no date) (unknown) (unknown) anteriorly. The fasc ia mady was closed with Vicryl. The subcutaneous layer was (units unknown) (unknown) (unknown) (no date) (unknown) (unknown) appeared to be adequately healed. There was a large seroma in the subcutaneous (units unknown) (unknown) (unknown) (no date) (unknown) (unknown) avoiding hip abducto r exercises because of her trochanteric repair. She should (units unknown) (unknown) (unknown) (no date) (unknown) (unknown) benefits and complications including but not limited to, leg length inequality, (units unknown) (unknown) (unknown) (no date) (unknown) (unknown) bite was obtained wi th an odd sized reamer. The cup 1 mm larger than the last (units unknown) (unknown) (unknown) (no date) (unknown) (unknown) cables, 22 x +4 Oxinium femoral head with dual mobility 22 x 36 mm insert, (units unknown) (unknown) (unknown) (no date) (unknown) (unknown) canal was then carefully reamed up to a 15. Lateralizing Reamer was also used. (units unknown) (unknown) (unknown) (no date) (unknown) (unknown) carefully passed and a [id number] was placed around the trochanter. (units unknown) (unknown) (unknown) (no date) (unknown) (unknown) closed with multiple Vicryl interrupted stitches and barbed sutures and skin (units unknown) (unknown) (unknown) (no date) (unknown) (unknown) comminuted slightly displaced trochanteric fracture, adequate stability after (units unknown) (unknown) (unknown) (no date) (unknown) (unknown) difficulty going up to a 50. Reaming was performed in 1 mm increments until good (units unknown) (unknown) (unknown) (no date) (unknown) (unknown) difficulty. The femu r was a little bit difficult to mobilize anteriorly but we (units unknown) (unknown) (unknown) (no date) (unknown) (unknown) dislocate the hip posteriorly. The head was removed. The stem was removed (units unknown) (unknown) (unknown) (no date) (unknown) (unknown) dislocation but it actually looked like it was best to go ahead and just (units unknown) (unknown) (unknown) (no date) (unknown) (unknown) environment. (units unknown) (unknown) (unknown) (no date) (unknown) (unknown) femur in order to protect it as much as possible and also allow adequate (units unknown) (unknown) (unknown) (no date) (unknown) (unknown) final time. A repeat reduction x-rays showed anatomic reduction of the (units unknown) (unknown) (unknown) (no date) (unknown) (unknown) greater trochanter a nd curving gently posteriorly as it went proximally. This (units unknown) (unknown) (unknown) (no date) (unknown) (unknown) have anterior instability preoperatively. Her acetabular position was changed (units unknown) (unknown) (unknown) (no date) (unknown) (unknown) having tolerated the procedure well. (units unknown) (unknown) (unknown) (no date) (unknown) (unknown) hip arthroplasty and ORIF of her greater trochanter fracture. Options risks (units unknown) (unknown) (unknown) (no date) (unknown) (unknown) identified and protected throughout the case. The capsulomuscular flap was (units unknown) (unknown) (unknown) (no date) (unknown) (unknown) internal rotation to 70 was possible before dislocation. I meticulously checked (units unknown) (unknown) (unknown) (no date) (unknown) (unknown) intraoperative film confirmed the component position and acceptable bony contact (units unknown) (unknown) (unknown) (no date) (unknown) (unknown) left hip as the operative site and this was marked with my initials. The patient (units unknown) (unknown) (unknown) (no date) (unknown) (unknown) meticulously irrigat ed with normal saline. An additional cerclage wire was (units unknown) (unknown) (unknown) (no date) (unknown) (unknown) meticulously reduced the anterior superior dislocation back into the acetabulum. (units unknown) (unknown) (unknown) (no date) (unknown) (unknown) nonabsorbable suture . A deep and superficial drain was placed and brought out (units unknown) (unknown) (unknown) (no date) (unknown) (unknown) on the femur and adequate positioning of the cup. The patient was stable in the (units unknown) (unknown) (unknown) (no date) (unknown) (unknown) overall and it was felt that we could probably go up to a 48 would have (units unknown) (unknown) (unknown) (no date) (unknown) (unknown) patient will receive Aspirin and sequential compression devices for DVT (units unknown) (unknown) (unknown) (no date) (unknown) (unknown) persistent instability, infection, failure to unite or heal her trochanter, (units unknown) (unknown) (unknown) (no date) (unknown) (unknown) placed on the operative table in the right lateral decubitus position after (units unknown) (unknown) (unknown) (no date) (unknown) (unknown) point. Some of the explant reamers were carefully used just remove any soft (units unknown) (unknown) (unknown) (no date) (unknown) (unknown) position of sleep, o f squatting, and could be put through a range of motion with (units unknown) (unknown) (unknown) (no date) (unknown) (unknown) prepared from the ankle to the iliac crest with ChloroPrep in the usual fashion (units unknown) (unknown) (unknown) (no date) (unknown) (unknown) prophylaxis. The patient will be discharged home when safe for the home (units unknown) (unknown) (unknown) (no date) (unknown) (unknown) protected it as much as possible. It was prepared to cerclage it prior to (units unknown) (unknown) (unknown) (no date) (unknown) (unknown) raised and tagged fo r later repair. The hip was dislocated anteriorly. We (units unknown) (unknown) (unknown) (no date) (unknown) (unknown) reamer was then inserted using the appropriate anteversion guides. It was then (units unknown) (unknown) (unknown) (no date) (unknown) (unknown) received pre-operati ve antibiotics and was taken to the operating room and (units unknown) (unknown) (unknown) (no date) (unknown) (unknown) reconstruction (units unknown) (unknown) (unknown) (no date) (unknown) (unknown) satisfactory anesthesia. A time clock mechanic out was performed. The left leg was (units unknown) (unknown) (unknown) (no date) (unknown) (unknown) self retaining retractor. The previous skin incision was excised. The wound (units unknown) (unknown) (unknown) (no date) (unknown) (unknown) she needs some component of global precautions with full weight-bearing and (units unknown) (unknown) (unknown) (no date) (unknown) (unknown) stabilized with 2 locking screws and a nonlocking screw. Acetabular stability (units unknown) (unknown) (unknown) (no date) (unknown) (unknown) cecilia. A elena dressing was applied and the patient was taken to recovery (units unknown) (unknown) (unknown) (no date) (unknown) (unknown) sutures were removed . Charnley retractor and Gelpi retractors were placed. The (units unknown) (unknown) (unknown) (no date) (unknown) (unknown) tightened. The acetabulum was cleared of all material and the hip relocated one (units unknown) (unknown) (unknown) (no date) (unknown) (unknown) tissue was mobilized with care being taken to avoid the sciatic nerve, which was (units unknown) (unknown) (unknown) (no date) (unknown) (unknown) tissue. The acetabul um was meticulously checked. She had a fairly thin wall (units unknown) (unknown) (unknown) (no date) (unknown) (unknown) tissues. Fluid was aspirated and sent for Gram stain culture and sensitivity. (units unknown) (unknown) (unknown) (no date) (unknown) (unknown) trials were removed. (units unknown) (unknown) (unknown) (no date) (unknown) (unknown) trochanter fracture (units unknown) (unknown) (unknown) (no date) (unknown) (unknown) trochanter fracture. She is brought to the operating room for revision total (units unknown) (unknown) (unknown) (no date) (unknown) (unknown) trochanteric fractur e acceptable alignment and positioning of the stem. (units unknown) (unknown) (unknown) (no date) (unknown) (unknown) trochanteric fractur e. Specifically looked at that to make sure that we (units unknown) (unknown) (unknown) (no date) (unknown) (unknown) using the tag suture s. The short external rotators were repaired with a (units unknown) (unknown) (unknown) (no date) (unknown) (unknown) visualization of the acetabular component. Polyethylene was removed without (units unknown) (unknown) (unknown) (no date) (unknown) (unknown) was carried sharply to the fascia mady, which was divided and retracted with a (units unknown) (unknown) (unknown) (no date) (unknown) (unknown) was checked and it w as noted to have adequate stability. A dual mobility liner (units unknown) (unknown) (unknown) (no date) (unknown) (unknown) was felt to be satisfactory and the appropriate components were opened, and the (units unknown) (unknown) (unknown) (no date) (unknown) (unknown) was then inserted. (units unknown) (unknown) (unknown) (no date) (unknown) (unknown) weight bearing as tolerated and primarily posterior hip precautions. She did (units unknown) (unknown) (unknown) (no date) (unknown) (unknown) well as potential medical problems was discussed in detail. (units unknown) (unknown) (unknown) (no date) (unknown) (unknown) without difficulty. (units unknown) (unknown) (unknown) (no date) (unknown) (unknown) work to keep her walter t midline and incision and flexion greater than 90?. The (units unknown) (unknown) (unknown) (no date) (unknown) (unknown) worked throughout th e procedure in order to allow adequate visualization. (units unknown) (unknown) Result panel [id number] (unknown) (no date) (unknown) (unknown) (no value) (units unknown) (unknown) (unknown) (no date) (unknown) (unknown) ADDENDUM (units unknown) (unknown) (unknown) (no date) (unknown) (unknown) 10/04/221954 (units unknown) (unknown) (unknown) (no date) (unknown) (unknown) 10/04/222002 (units unknown) (unknown) (unknown) (no date) (unknown) (unknown) 3151 (units unknown) (unknown) (unknown) (no date) (unknown) (unknown) 45 degrees internal rotation without dislocation. At 90 degrees flexion, (units unknown) (unknown) (unknown) (no date) (unknown) (unknown) 48 mm, 2 locking screws, 1 nonlocking screw, dual mobility liner, 2 cerclage (units unknown) (unknown) (unknown) (no date) (unknown) (unknown) A PA was used throughout the procedure and was critical for adequate retraction (units unknown) (unknown) (unknown) (no date) (unknown) (unknown) A cerclage wire was placed around the femur. It was carefully tightened. The (units unknown) (unknown) (unknown) (no date) (unknown) (unknown) Addendum Documented By: Annika River MD (units unknown) (unknown) (unknown) (no date) (unknown) (unknown) Addendum Signed By: <Electronically signed by Radha Silverio (units unknown) (unknown) (unknown) (no date) (unknown) (unknown) Age/Sex: 72 / F (units unknown) (unknown) (unknown) (no date) (unknown) (unknown) Anesthesia Type: General and Spinal (units unknown) (unknown) (unknown) (no date) (unknown) (unknown) [employer]: Kelley Springer (units unknown) (unknown) (unknown) (no date) (unknown) (unknown) Betadine soak was performed while trialing with head options. The hip was (units unknown) (unknown) (unknown) (no date) (unknown) (unknown) Blood products transfused: none (units unknown) (unknown) (unknown) (no date) (unknown) (unknown) Closure Type: primary (units unknown) (unknown) (unknown) (no date) (unknown) (unknown) Complications: none (units unknown) (unknown) (unknown) (no date) (unknown) (unknown) Condition: stable (units unknown) (unknown) (unknown) (no date) (unknown) (unknown) D> 10/04/222002 (units unknown) (unknown) (unknown) (no date) (unknown) (unknown) : 1950 Acct:[id number] (units unknown) (unknown) (unknown) (no date) (unknown) (unknown) Date of Service: 10/02/22 (units unknown) (unknown) (unknown) (no date) (unknown) (unknown) Date of procedure: 10/04/22 (units unknown) (unknown) (unknown) (no date) (unknown) (unknown) Disposition: Acute Care (units unknown) (unknown) (unknown) (no date) (unknown) (unknown) Estimated Blood Loss (mL): 300 (units unknown) (unknown) (unknown) (no date) (unknown) (unknown) Finally the femoral head was impacted onto the stem. The cerclage wires were (units unknown) (unknown) (unknown) (no date) (unknown) (unknown) Findings: (units unknown) (unknown) (unknown) (no date) (unknown) (unknown) Indications: (units unknown) (unknown) (unknown) (no date) (unknown) (unknown) [address] [address] (units unknown) (unknown) (unknown) (no date) (unknown) (unknown) Operative Date/Time/Diagnoses (units unknown) (unknown) (unknown) (no date) (unknown) (unknown) Operative Note (units unknown) (unknown) (unknown) (no date) (unknown) (unknown) Operative Notes (units unknown) (unknown) (unknown) (no date) (unknown) (unknown) Patient: Barbara Garcia MR#: [id number] (units unknown) (unknown) (unknown) (no date) (unknown) (unknown) Plan for aftercare: (units unknown) (unknown) (unknown) (no date) (unknown) (unknown) Post-op diagnosis: same (units unknown) (unknown) (unknown) (no date) (unknown) (unknown) Post-operative (units unknown) (unknown) (unknown) (no date) (unknown) (unknown) 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, left greater (units unknown) (unknown) (unknown) (no date) (unknown) (unknown) Procedure + Clinicians (units unknown) (unknown) (unknown) (no date) (unknown) (unknown) Procedure in detail: (units unknown) (unknown) (unknown) (no date) (unknown) (unknown) Procedure: (units unknown) (unknown) (unknown) (no date) (unknown) (unknown) Prosthetic devices, grafts, tissues, transplants, or devices: (units unknown) (unknown) (unknown) (no date) (unknown) (unknown) Provider: Willis River MD (units unknown) (unknown) (unknown) (no date) (unknown) (unknown) Retractors were plac ed to expose the acetabulum. We meticulously mobilize the (units unknown) (unknown) (unknown) (no date) (unknown) (unknown) Revision left total hip arthroplasty, ORIF left greater trochanter (units unknown) (unknown) (unknown) (no date) (unknown) (unknown) Same procedure as scheduled: Yes (units unknown) (unknown) (unknown) (no date) (unknown) (unknown) Screws were removed without difficulty. The cup was removed without difficulty. (units unknown) (unknown) (unknown) (no date) (unknown) (unknown) Signed By:<Electronically signed by Annika River MD> (units unknown) (unknown) (unknown) (no date) (unknown) (unknown) Mirian Redapt femur size 15 by 190 standard offset, Redapt acetabulum (units unknown) (unknown) (unknown) (no date) (unknown) (unknown) Specimen(s): none sent (units unknown) (unknown) (unknown) (no date) (unknown) (unknown) Surgeon: Annika River (units unknown) (unknown) (unknown) (no date) (unknown) (unknown) The Reamer trial nec k option was placed. A trial head and neck were then placed (units unknown) (unknown) (unknown) (no date) (unknown) (unknown) The capsulomuscular flap was then repaired to the residual soft tissues deeply (units unknown) (unknown) (unknown) (no date) (unknown) (unknown) The final stem was then impacted into the prepared femoral canal. A brief (units unknown) (unknown) (unknown) (no date) (unknown) (unknown) The hip was approach ed through an approximately 24 cm incision centered over the (units unknown) (unknown) (unknown) (no date) (unknown) (unknown) The hip was then carefully dislocated posteriorly. She had an obvious (units unknown) (unknown) (unknown) (no date) (unknown) (unknown) The patient was seen in the pre-operative area, where the patient identified the (units unknown) (unknown) (unknown) (no date) (unknown) (unknown) The patient will be maintained on a standard total hip replacement protocol with (units unknown) (unknown) (unknown) (no date) (unknown) (unknown) There was no purulence. It was clear that the fascial sutures had failed. The (units unknown) (unknown) (unknown) (no date) (unknown) (unknown) There was really minimal to no bony ingrowth in either the stem or cup at this (units unknown) (unknown) (unknown) (no date) (unknown) (unknown) This is a 72-year-ol d female has a history of a left hip total hip arthroplasty. (units unknown) (unknown) (unknown) (no date) (unknown) (unknown) Time of procedure: 15:00 (units unknown) (unknown) (unknown) (no date) (unknown) (unknown) Unfortunately she alexander s had problems with instability and has a left hip greater (units unknown) (unknown) (unknown) (no date) (unknown) (unknown) Very soft bone, adequate reduction of the greater trochanter fracture, (units unknown) (unknown) (unknown) (no date) (unknown) (unknown) additional problems requiring additional operations and risks for anesthesia as (units unknown) (unknown) (unknown) (no date) (unknown) (unknown) and draped through sterile drapes. (units unknown) (unknown) (unknown) (no date) (unknown) (unknown) and really could not find evidence of any bony or component impingement. This (units unknown) (unknown) (unknown) (no date) (unknown) (unknown) and the hip relocate d and checked for leg length and stability. An (units unknown) (unknown) (unknown) (no date) (unknown) (unknown) and we were unable t o demonstrate anterior instability after revision. I think (units unknown) (unknown) (unknown) (no date) (unknown) (unknown) anteriorly. The fasc ia mady was closed with Vicryl. The subcutaneous layer was (units unknown) (unknown) (unknown) (no date) (unknown) (unknown) appeared to be adequately healed. There was a large seroma in the subcutaneous (units unknown) (unknown) (unknown) (no date) (unknown) (unknown) avoiding hip abducto r exercises because of her trochanteric repair. She should (units unknown) (unknown) (unknown) (no date) (unknown) (unknown) benefits and complications including but not limited to, leg length inequality, (units unknown) (unknown) (unknown) (no date) (unknown) (unknown) bite was obtained wi th an odd sized reamer. The cup 1 mm larger than the last (units unknown) (unknown) (unknown) (no date) (unknown) (unknown) cables, 22 x +4 Oxinium femoral head with dual mobility 22 x 36 mm insert, (units unknown) (unknown) (unknown) (no date) (unknown) (unknown) canal was then carefully reamed up to a 15. Lateralizing Reamer was also used. (units unknown) (unknown) (unknown) (no date) (unknown) (unknown) carefully passed and a gyekhz-iw-dvygn was placed around the trochanter. (units unknown) (unknown) (unknown) (no date) (unknown) (unknown) closed with multiple Vicryl interrupted stitches and barbed sutures and skin (units unknown) (unknown) (unknown) (no date) (unknown) (unknown) comminuted slightly displaced trochanteric fracture, adequate stability after (units unknown) (unknown) (unknown) (no date) (unknown) (unknown) difficulty going up to a 50. Reaming was performed in 1 mm increments until good (units unknown) (unknown) (unknown) (no date) (unknown) (unknown) difficulty. The femu r was a little bit difficult to mobilize anteriorly but we (units unknown) (unknown) (unknown) (no date) (unknown) (unknown) dislocate the hip posteriorly. The head was removed. The stem was removed (units unknown) (unknown) (unknown) (no date) (unknown) (unknown) dislocation but it actually looked like it was best to go ahead and just (units unknown) (unknown) (unknown) (no date) (unknown) (unknown) environment. (units unknown) (unknown) (unknown) (no date) (unknown) (unknown) femur in order to protect it as much as possible and also allow adequate (units unknown) (unknown) (unknown) (no date) (unknown) (unknown) final time. A repeat reduction x-rays showed anatomic reduction of the (units unknown) (unknown) (unknown) (no date) (unknown) (unknown) greater trochanter a nd curving gently posteriorly as it went proximally. This (units unknown) (unknown) (unknown) (no date) (unknown) (unknown) have anterior instability preoperatively. Her acetabular position was changed (units unknown) (unknown) (unknown) (no date) (unknown) (unknown) having tolerated the procedure well. (units unknown) (unknown) (unknown) (no date) (unknown) (unknown) hip arthroplasty and ORIF of her greater trochanter fracture. Options risks (units unknown) (unknown) (unknown) (no date) (unknown) (unknown) identified and protected throughout the case. The capsulomuscular flap was (units unknown) (unknown) (unknown) (no date) (unknown) (unknown) internal rotation to 70 was possible before dislocation. I meticulously checked (units unknown) (unknown) (unknown) (no date) (unknown) (unknown) intraoperative film confirmed the component position and acceptable bony contact (units unknown) (unknown) (unknown) (no date) (unknown) (unknown) left hip as the operative site and this was marked with my initials. The patient (units unknown) (unknown) (unknown) (no date) (unknown) (unknown) meticulously irrigat ed with normal saline. An additional cerclage wire was (units unknown) (unknown) (unknown) (no date) (unknown) (unknown) meticulously reduced the anterior superior dislocation back into the acetabulum. (units unknown) (unknown) (unknown) (no date) (unknown) (unknown) nonabsorbable suture . A deep and superficial drain was placed and brought out (units unknown) (unknown) (unknown) (no date) (unknown) (unknown) of the femur, hemostasis, multiple steps in the procedure in order to allow (units unknown) (unknown) (unknown) (no date) (unknown) (unknown) on the femur and adequate positioning of the cup. The patient was stable in the (units unknown) (unknown) (unknown) (no date) (unknown) (unknown) overall and it was felt that we could probably go up to a 48 would have (units unknown) (unknown) (unknown) (no date) (unknown) (unknown) patient will receive Aspirin and sequential compression devices for DVT (units unknown) (unknown) (unknown) (no date) (unknown) (unknown) persistent instability, infection, failure to unite or heal her trochanter, (units unknown) (unknown) (unknown) (no date) (unknown) (unknown) placed on the operative table in the right lateral decubitus position after (units unknown) (unknown) (unknown) (no date) (unknown) (unknown) point. Some of the explant reamers were carefully used just remove any soft (units unknown) (unknown) (unknown) (no date) (unknown) (unknown) position of sleep, o f squatting, and could be put through a range of motion with (units unknown) (unknown) (unknown) (no date) (unknown) (unknown) prepared from the ankle to the iliac crest with ChloroPrep in the usual fashion (units unknown) (unknown) (unknown) (no date) (unknown) (unknown) prophylaxis. The patient will be discharged home when safe for the home (units unknown) (unknown) (unknown) (no date) (unknown) (unknown) protected it as much as possible. It was prepared to cerclage it prior to (units unknown) (unknown) (unknown) (no date) (unknown) (unknown) raised and tagged fo r later repair. The hip was dislocated anteriorly. We (units unknown) (unknown) (unknown) (no date) (unknown) (unknown) reamer was then inserted using the appropriate anteversion guides. It was then (units unknown) (unknown) (unknown) (no date) (unknown) (unknown) received pre-operati ve antibiotics and was taken to the operating room and (units unknown) (unknown) (unknown) (no date) (unknown) (unknown) reconstruction (units unknown) (unknown) (unknown) (no date) (unknown) (unknown) satisfactory anesthesia. A time clock mechanic out was performed. The left leg was (units unknown) (unknown) (unknown) (no date) (unknown) (unknown) self retaining retractor. The previous skin incision was excised. The wound (units unknown) (unknown) (unknown) (no date) (unknown) (unknown) she needs some component of global precautions with full weight-bearing and (units unknown) (unknown) (unknown) (no date) (unknown) (unknown) stabilized with 2 locking screws and a nonlocking screw. Acetabular stability (units unknown) (unknown) (unknown) (no date) (unknown) (unknown) cecilia. A elena dressing was applied and the patient was taken to recovery (units unknown) (unknown) (unknown) (no date) (unknown) (unknown) sutures were removed . Charnley retractor and Gelpi retractors were placed. The (units unknown) (unknown) (unknown) (no date) (unknown) (unknown) tightened. The acetabulum was cleared of all material and the hip relocated one (units unknown) (unknown) (unknown) (no date) (unknown) (unknown) tissue was mobilized with care being taken to avoid the sciatic nerve, which was (units unknown) (unknown) (unknown) (no date) (unknown) (unknown) tissue. The acetabul um was meticulously checked. She had a fairly thin wall (units unknown) (unknown) (unknown) (no date) (unknown) (unknown) tissues. Fluid was aspirated and sent for Gram stain culture and sensitivity. (units unknown) (unknown) (unknown) (no date) (unknown) (unknown) trials were removed. (units unknown) (unknown) (unknown) (no date) (unknown) (unknown) trochanter fracture (units unknown) (unknown) (unknown) (no date) (unknown) (unknown) trochanter fracture. She is brought to the operating room for revision total (units unknown) (unknown) (unknown) (no date) (unknown) (unknown) trochanteric fractur e acceptable alignment and positioning of the stem. (units unknown) (unknown) (unknown) (no date) (unknown) (unknown) trochanteric fractur e. Specifically looked at that to make sure that we (units unknown) (unknown) (unknown) (no date) (unknown) (unknown) using the tag suture s. The short external rotators were repaired with a (units unknown) (unknown) (unknown) (no date) (unknown) (unknown) visualization as wel l as adequate implantation complex revision components. (units unknown) (unknown) (unknown) (no date) (unknown) (unknown) visualization of the acetabular component. Polyethylene was removed without (units unknown) (unknown) (unknown) (no date) (unknown) (unknown) was carried sharply to the fascia mady, which was divided and retracted with a (units unknown) (unknown) (unknown) (no date) (unknown) (unknown) was checked and it w as noted to have adequate stability. A dual mobility liner (units unknown) (unknown) (unknown) (no date) (unknown) (unknown) was felt to be satisfactory and the appropriate components were opened, and the (units unknown) (unknown) (unknown) (no date) (unknown) (unknown) was then inserted. (units unknown) (unknown) (unknown) (no date) (unknown) (unknown) weight bearing as tolerated and primarily posterior hip precautions. She did (units unknown) (unknown) (unknown) (no date) (unknown) (unknown) well as potential medical problems was discussed in detail. (units unknown) (unknown) (unknown) (no date) (unknown) (unknown) without difficulty. (units unknown) (unknown) (unknown) (no date) (unknown) (unknown) work to keep her walter t midline and incision and flexion greater than 90?. The (units unknown) (unknown) (unknown) (no date) (unknown) (unknown) worked throughout th e procedure in order to allow adequate visualization. (units unknown) (unknown) Result panel [id number] (unknown) (no date) (unknown) (unknown) (no value) (units unknown) (unknown) (unknown) (no date) (unknown) (unknown) 10/04/22 (units unknown) (unknown) (unknown) (no date) (unknown) (unknown) 1. Interval reductio n of the previously dislocated left hip prosthesis with new (units unknown) (unknown) (unknown) (no date) (unknown) (unknown) [address] [place] [address] (units unknown) (unknown) (unknown) (no date) (unknown) (unknown) [id number] (units unknown) (unknown) (unknown) (no date) (unknown) (unknown) Accession Number: [id number] (units unknown) (unknown) (unknown) (no date) (unknown) (unknown) Age/Sex: 72 / F Date of Service: (units unknown) (unknown) (unknown) (no date) (unknown) (unknown) [place] [address] (units unknown) (unknown) (unknown) (no date) (unknown) (unknown) Approved by: Andres Pena M.D. on 10/04/2022 at 20:57 (units unknown) (unknown) (unknown) (no date) (unknown) (unknown) Bones: There is interval reduction of the previously dislocated left hip (units unknown) (unknown) (unknown) (no date) (unknown) (unknown) COMPARISON: [facility], CR, XR HIP W PEL IF DONE LT 2V, 10/02/2022, 18:04. (units unknown) (unknown) (unknown) (no date) (unknown) (unknown) : 1950 Acct:[id number] (units unknown) (unknown) (unknown) (no date) (unknown) (unknown) Dictated by: Andres Pena M.D. on 10/04/2022 at 20:56 (units unknown) (unknown) (unknown) (no date) (unknown) (unknown) FINDINGS: (units unknown) (unknown) (unknown) (no date) (unknown) (unknown) IMPRESSION: (units unknown) (unknown) (unknown) (no date) (unknown) (unknown) INDICATIONS: LEFT HI P REVISION POST OP (units unknown) (unknown) (unknown) (no date) (unknown) (unknown) [facility] (units unknown) (unknown) (unknown) (no date) (unknown) (unknown) Loc: AC 219-1 (units unknown) (unknown) (unknown) (no date) (unknown) (unknown) Ordering Provider: Jorge Aviles MD (units unknown) (unknown) (unknown) (no date) (unknown) (unknown) P wall ROCEDURE: XR HIP W PEL IF DONE LT 2V (units unknown) (unknown) (unknown) (no date) (unknown) (unknown) Patient: Barbara Garcia MR#: [id number] (units unknown) (unknown) (unknown) (no date) (unknown) (unknown) Procedure: XR hip w pel if done LT 2V (units unknown) (unknown) (unknown) (no date) (unknown) (unknown) Signed (units unknown) (unknown) (unknown) (no date) (unknown) (unknown) Soft tissues: The visualized bowel gas pattern is normal. No suspicious soft (units unknown) (unknown) (unknown) (no date) (unknown) (unknown) TECHNIQUE: AP pelvis with lateral view of the left hip. (units unknown) (unknown) (unknown) (no date) (unknown) (unknown) XRay Report (units unknown) (unknown) (unknown) (no date) (unknown) (unknown) associated new cerclage wires demonstrated along the proximal left femoral (units unknown) (unknown) (unknown) (no date) (unknown) (unknown) calcifications. (units unknown) (unknown) (unknown) (no date) (unknown) (unknown) cerclage (units unknown) (unknown) (unknown) (no date) (unknown) (unknown) component. No (units unknown) (unknown) (unknown) (no date) (unknown) (unknown) fractures identified. (units unknown) (unknown) (unknown) (no date) (unknown) (unknown) prosthesis with (units unknown) (unknown) (unknown) (no date) (unknown) (unknown) tissue (units unknown) (unknown) (unknown) (no date) (unknown) (unknown) wires along the proximal femoral component. (units unknown) (unknown) Result panel 1348 (unknown) (no date) (unknown) (unknown) 25.4 % (unknown) (unknown) (no date) (unknown) (unknown) 8.4 g/dl (unknown) Result panel 1349 (unknown) (no date) (unknown) (unknown) (no value) (units unknown) (unknown) (unknown) (no date) (unknown) (unknown) No organisms seen (units unknown) (unknown) (unknown) (no date) (unknown) (unknown) No organisms seen (units unknown) (unknown) (unknown) (no date) (unknown) (unknown) Occasional WBC seen (units unknown) (unknown) Result panel 1350 (unknown) (no date) (unknown) (unknown) 0 /ul (unknown) (unknown) (no date) (unknown) (unknown) 0 /ul (unknown) (unknown) (no date) (unknown) (unknown) 0.3 % (unknown) (unknown) (no date) (unknown) (unknown) 0.3 % (unknown) (unknown) (no date) (unknown) (unknown) 10.8 % (unknown) (unknown) (no date) (unknown) (unknown) 29487 /ul (unknown) (unknown) (no date) (unknown) (unknown) 13.7 x10 3/ul (unknown) (unknown) (no date) (unknown) (unknown) 14.6 % (unknown) (unknown) (no date) (unknown) (unknown) 1500 /ul (unknown) (unknown) (no date) (unknown) (unknown) 2.6 % (unknown) (unknown) (no date) (unknown) (unknown) 2.74 x10 6/ul (unknown) (unknown) (no date) (unknown) (unknown) 24.6 % (unknown) (unknown) (no date) (unknown) (unknown) 30.0 pg (unknown) (unknown) (no date) (unknown) (unknown) 33.4 % (unknown) (unknown) (no date) (unknown) (unknown) 378 x10 3/ul (unknown) (unknown) (no date) (unknown) (unknown) 400 /ul (unknown) (unknown) (no date) (unknown) (unknown) 8.2 g/dl (unknown) (unknown) (no date) (unknown) (unknown) 86.0 % (unknown) (unknown) (no date) (unknown) (unknown) 89.8 fl (unknown) Result panel 1351 (unknown) (no date) (unknown) (unknown) 21.2 % (unknown) (unknown) (no date) (unknown) (unknown) 7.3 g/dl (unknown) Result panel 1352 (unknown) (no date) (unknown) (unknown) (no value) (units unknown) (unknown) (unknown) (no date) (unknown) (unknown) (past 8 hours): (units unknown) (unknown) (unknown) (no date) (unknown) (unknown) -DC Hemovac today (units unknown) (unknown) (unknown) (no date) (unknown) (unknown) -DC urinary catheter if mobilizing well (units unknown) (unknown) (unknown) (no date) (unknown) (unknown) -She did have anteri or instability preoperatively. Her acetabular position was (units unknown) (unknown) (unknown) (no date) (unknown) (unknown) -acute blood loss anemia (units unknown) (unknown) (unknown) (no date) (unknown) (unknown) -aspirin 81 mg b.i.d . x6 weeks for DVT prophylaxis (units unknown) (unknown) (unknown) (no date) (unknown) (unknown) -continue with multimodal pain management (units unknown) (unknown) (unknown) (no date) (unknown) (unknown) -disposition: Home, likely 1-2 days, depending on medical issues and being (units unknown) (unknown) (unknown) (no date) (unknown) (unknown) -hemoglobin currentl y 7.3, down from 8.2 yesterday. Currently asymptomatic, (units unknown) (unknown) (unknown) (no date) (unknown) (unknown) -orthostatic hypotension (units unknown) (unknown) (unknown) (no date) (unknown) (unknown) -pending cultures fr om surgery. Patient is on clindamycin (units unknown) (unknown) (unknown) (no date) (unknown) (unknown) 01:00 10/05/22 (units unknown) (unknown) (unknown) (no date) (unknown) (unknown) 10/02/22 17:57 (units unknown) (unknown) (unknown) (no date) (unknown) (unknown) 10/04/22 10/04/22 10/04/22 (units unknown) (unknown) (unknown) (no date) (unknown) (unknown) 10/05/22 04:47 (units unknown) (unknown) (unknown) (no date) (unknown) (unknown) 10/05/22 0841 (units unknown) (unknown) (unknown) (no date) (unknown) (unknown) 10/05/22 (units unknown) (unknown) (unknown) (no date) (unknown) (unknown) 04:47 (units unknown) (unknown) (unknown) (no date) (unknown) (unknown) 05:17 10/05/22 (units unknown) (unknown) (unknown) (no date) (unknown) (unknown) 06:05 (units unknown) (unknown) (unknown) (no date) (unknown) (unknown) 17:22 20:25 20:25 (units unknown) (unknown) (unknown) (no date) (unknown) (unknown) 3151 (units unknown) (unknown) (unknown) (no date) (unknown) (unknown) Actual Procedure [place] e Surgeon (units unknown) (unknown) (unknown) (no date) (unknown) (unknown) Age/Sex: 72 / F (units unknown) (unknown) (unknown) (no date) (unknown) (unknown) Antibody Screen Negative (units unknown) (unknown) (unknown) (no date) (unknown) (unknown) Antibody Screen (units unknown) (unknown) (unknown) (no date) (unknown) (unknown) Assessment + Plan Post-op (units unknown) (unknown) (unknown) (no date) (unknown) (unknown) Baso # (Auto) 0 (units unknown) (unknown) (unknown) (no date) (unknown) (unknown) Baso # (Auto) (units unknown) (unknown) (unknown) (no date) (unknown) (unknown) Baso % (Auto) 0.3 (units unknown) (unknown) (unknown) (no date) (unknown) (unknown) Baso % (Auto) (units unknown) (unknown) (unknown) (no date) (unknown) (unknown) Bilateral lower extremity: Motor functions are grossly intact, sensation is (units unknown) (unknown) (unknown) (no date) (unknown) (unknown) Blood Pressure 100/6 8 97/47 L 99/67 (units unknown) (unknown) (unknown) (no date) (unknown) (unknown) Blood Type O Positive (units unknown) (unknown) (unknown) (no date) (unknown) (unknown) Blood Type (units unknown) (unknown) (unknown) (no date) (unknown) (unknown) Crossmatch See Detail (units unknown) (unknown) (unknown) (no date) (unknown) (unknown) Crossmatch (units unknown) (unknown) (unknown) (no date) (unknown) (unknown) : 1950 Acct:[id number] (units unknown) (unknown) (unknown) (no date) (unknown) (unknown) Date Patient Seen: 10/05/22 (units unknown) (unknown) (unknown) (no date) (unknown) (unknown) Date of Service: 10/02/22 (units unknown) (unknown) (unknown) (no date) (unknown) (unknown) Deep Vein Thrombosis/Pulmonary Embolism Present on Admission: No (units unknown) (unknown) (unknown) (no date) (unknown) (unknown) Depression (units unknown) (unknown) (unknown) (no date) (unknown) (unknown) Diverticulitis (units unknown) (unknown) (unknown) (no date) (unknown) (unknown) Eos # (Auto) 0 (units unknown) (unknown) (unknown) (no date) (unknown) (unknown) Eos # (Auto) (units unknown) (unknown) (unknown) (no date) (unknown) (unknown) Eos % (Auto) 0.3 L (units unknown) (unknown) (unknown) (no date) (unknown) (unknown) Eos % (Auto) (units unknown) (unknown) (unknown) (no date) (unknown) (unknown) Exam Narrative: (units unknown) (unknown) (unknown) (no date) (unknown) (unknown) Exam (units unknown) (unknown) (unknown) (no date) (unknown) (unknown) GERD (gastroesophage al reflux disease) (units unknown) (unknown) (unknown) (no date) (unknown) (unknown) HLD (hyperlipidemia) (units unknown) (unknown) (unknown) (no date) (unknown) (unknown) Hct 21.2 L (units unknown) (unknown) (unknown) (no date) (unknown) (unknown) Hct 25.4 L 24.6 L (units unknown) (unknown) (unknown) (no date) (unknown) (unknown) Hearing impaired (units unknown) (unknown) (unknown) (no date) (unknown) (unknown) Hemovac has put out 50 cc yesterday and 50 cc today. Left hip dressing is (units unknown) (unknown) (unknown) (no date) (unknown) (unknown) Hgb 7.3 L (units unknown) (unknown) (unknown) (no date) (unknown) (unknown) Hgb 8.4 L 8.2 L (units unknown) (unknown) (unknown) (no date) (unknown) (unknown) History of bladder surgery (units unknown) (unknown) (unknown) (no date) (unknown) (unknown) History of total lef t knee replacement (units unknown) (unknown) (unknown) (no date) (unknown) (unknown) History of total rig ht knee replacement (units unknown) (unknown) (unknown) (no date) (unknown) (unknown) Hx of left breast biopsy (units unknown) (unknown) (unknown) (no date) (unknown) (unknown) Hx of right breast biopsy (units unknown) (unknown) (unknown) (no date) (unknown) (unknown) Hx of tonsillectomy (units unknown) (unknown) (unknown) (no date) (unknown) (unknown) Interval history: (units unknown) (unknown) (unknown) (no date) (unknown) (unknown) [address] [address] (units unknown) (unknown) (unknown) (no date) (unknown) (unknown) Laboratory Results - last 24 hr (units unknown) (unknown) (unknown) (no date) (unknown) (unknown) Labs (units unknown) (unknown) (unknown) (no date) (unknown) (unknown) Labs: (units unknown) (unknown) (unknown) (no date) (unknown) (unknown) Lymph # (Auto) 1500 (units unknown) (unknown) (unknown) (no date) (unknown) (unknown) Lymph # (Auto) (units unknown) (unknown) (unknown) (no date) (unknown) (unknown) Lymph % (Auto) 10.8 L (units unknown) (unknown) (unknown) (no date) (unknown) (unknown) Lymph % (Auto) (units unknown) (unknown) (unknown) (no date) (unknown) (unknown) MCH 30.0 (units unknown) (unknown) (unknown) (no date) (unknown) (unknown) MCH (units unknown) (unknown) (unknown) (no date) (unknown) (unknown) MCHC 33.4 (units unknown) (unknown) (unknown) (no date) (unknown) (unknown) MCHC (units unknown) (unknown) (unknown) (no date) (unknown) (unknown) MCV 89.8 (units unknown) (unknown) (unknown) (no date) (unknown) (unknown) MCV (units unknown) (unknown) (unknown) (no date) (unknown) (unknown) Medical History (units unknown) (unknown) (unknown) (no date) (unknown) (unknown) [place] # (Auto) 400 (units unknown) (unknown) (unknown) (no date) (unknown) (unknown) [place] # (Auto) (units unknown) (unknown) (unknown) (no date) (unknown) (unknown) [place] % (Auto) 2.6 L (units unknown) (unknown) (unknown) (no date) (unknown) (unknown) [place] % (Auto) (units unknown) (unknown) (unknown) (no date) (unknown) (unknown) Narrative (units unknown) (unknown) (unknown) (no date) (unknown) (unknown) Neut # (Auto) 05551 H (units unknown) (unknown) (unknown) (no date) (unknown) (unknown) Neut # (Auto) (units unknown) (unknown) (unknown) (no date) (unknown) (unknown) Neut % (Auto) 86.0 H (units unknown) (unknown) (unknown) (no date) (unknown) (unknown) Neut % (Auto) (units unknown) (unknown) (unknown) (no date) (unknown) (unknown) Objective (units unknown) (unknown) (unknown) (no date) (unknown) (unknown) Operation Date: 10/02/22 20:00 (units unknown) (unknown) (unknown) (no date) (unknown) (unknown) Operation Date: 10/04/22 13:45 (units unknown) (unknown) (unknown) (no date) (unknown) (unknown) Osteoarthritis (units unknown) (unknown) (unknown) (no date) (unknown) (unknown) Oxygen Delivery Meth od Simple Mask (units unknown) (unknown) (unknown) (no date) (unknown) (unknown) Oxygen Flow Rate 0 0 (units unknown) (unknown) (unknown) (no date) (unknown) (unknown) Oxygen Flow Rate 0 (units unknown) (unknown) (unknown) (no date) (unknown) (unknown) PFSH (units unknown) (unknown) (unknown) (no date) (unknown) (unknown) PRBCs and recheck of H+H (units unknown) (unknown) (unknown) (no date) (unknown) (unknown) Patient is complaini ng of moderate left hip pain this morning. She is not dizzy (units unknown) (unknown) (unknown) (no date) (unknown) (unknown) Patient: Barbara Garcia MR#: [id number] (units unknown) (unknown) (unknown) (no date) (unknown) (unknown) Pleasant 72-year-old female, resting comfortably in bed, no acute distress. (units unknown) (unknown) (unknown) (no date) (unknown) (unknown) Plt Count 378 (units unknown) (unknown) (unknown) (no date) (unknown) (unknown) Plt Count (units unknown) (unknown) (unknown) (no date) (unknown) (unknown) Postoperative day: 1 (units unknown) (unknown) (unknown) (no date) (unknown) (unknown) Postoperative plan narrative: -mobilize with PT. Weightbearing as tolerated (units unknown) (unknown) (unknown) (no date) (unknown) (unknown) Postoperative status narrative: -stable status post left total hip arthroplasty (units unknown) (unknown) (unknown) (no date) (unknown) (unknown) Postoperative (units unknown) (unknown) (unknown) (no date) (unknown) (unknown) Procedures (units unknown) (unknown) (unknown) (no date) (unknown) (unknown) Procedures: (units unknown) (unknown) (unknown) (no date) (unknown) (unknown) Progress Note (units unknown) (unknown) (unknown) (no date) (unknown) (unknown) Provider: Chris Leos P.A-C (units unknown) (unknown) (unknown) (no date) (unknown) (unknown) Pulse Oximetry 97 97 (units unknown) (unknown) (unknown) (no date) (unknown) (unknown) Pulse Rate 95 H 87 (units unknown) (unknown) (unknown) (no date) (unknown) (unknown) Quality (units unknown) (unknown) (unknown) (no date) (unknown) (unknown) RBC 2.74 L (units unknown) (unknown) (unknown) (no date) (unknown) (unknown) RBC (units unknown) (unknown) (unknown) (no date) (unknown) (unknown) RDW 14.6 (units unknown) (unknown) (unknown) (no date) (unknown) (unknown) RDW (units unknown) (unknown) (unknown) (no date) (unknown) (unknown) Respiratory Rate 18 16 (units unknown) (unknown) (unknown) (no date) (unknown) (unknown) Seasonal allergies (units unknown) (unknown) (unknown) (no date) (unknown) (unknown) She needs global precautions with full weight-bearing and avoiding hip abductor (units unknown) (unknown) (unknown) (no date) (unknown) (unknown) Signed By:<Electronically signed by Nathalia Leos> (units unknown) (unknown) (unknown) (no date) (unknown) (unknown) Smoking Status: Carmencita r smoker (units unknown) (unknown) (unknown) (no date) (unknown) (unknown) Social History (units unknown) (unknown) (unknown) (no date) (unknown) (unknown) Subjective (units unknown) (unknown) (unknown) (no date) (unknown) (unknown) Surgical History (units unknown) (unknown) (unknown) (no date) (unknown) (unknown) Temperature 97.5 F L 98.1 F (units unknown) (unknown) (unknown) (no date) (unknown) (unknown) Time Patient Seen: 08:36 (units unknown) (unknown) (unknown) (no date) (unknown) (unknown) VTE (units unknown) (unknown) (unknown) (no date) (unknown) (unknown) Vital Signs (units unknown) (unknown) (unknown) (no date) (unknown) (unknown) WBC 13.7 H (units unknown) (unknown) (unknown) (no date) (unknown) (unknown) WBC (units unknown) (unknown) (unknown) (no date) (unknown) (unknown) [Embedded Image Not Available] (units unknown) (unknown) (unknown) (no date) (unknown) (unknown) alcohol intake: current (units unknown) (unknown) (unknown) (no date) (unknown) (unknown) changed and we were unable to demonstrate anterior instability after revision. (units unknown) (unknown) (unknown) (no date) (unknown) (unknown) clean, dry, intact. No surrounding erythema, induration, or desiree pus. (units unknown) (unknown) (unknown) (no date) (unknown) (unknown) cleared by PT. Her is available at home. (units unknown) (unknown) (unknown) (no date) (unknown) (unknown) continue to monitor symptoms. If she becomes symptomatic, consider 1 unit of (units unknown) (unknown) (unknown) (no date) (unknown) (unknown) dislocations in the last several weeks. (units unknown) (unknown) (unknown) (no date) (unknown) (unknown) exercises because of her trochanteric repair. She should work to keep her foot (units unknown) (unknown) (unknown) (no date) (unknown) (unknown) grossly intact to light touch, calves are soft and nontender to palpation. (units unknown) (unknown) (unknown) (no date) (unknown) (unknown) household members: spouse (units unknown) (unknown) (unknown) (no date) (unknown) (unknown) midline and incision and flexion greater than 90?. (units unknown) (unknown) (unknown) (no date) (unknown) (unknown) or lightheaded. No n ew numbness or tingling. She is not worked with physical (units unknown) (unknown) (unknown) (no date) (unknown) (unknown) p Closed Reduction Dislocated Hip Jorge Aviles MD (units unknown) (unknown) (unknown) (no date) (unknown) (unknown) p Total Hip Arthroplasty Revision Left Annika [place] MD (units unknown) (unknown) (unknown) (no date) (unknown) (unknown) revision after multiple dislocations (units unknown) (unknown) (unknown) (no date) (unknown) (unknown) therapy after surger y yesterday. (units unknown) (unknown) (unknown) (no date) (unknown) (unknown) with front wheel walker. Maintain global hip precautions due to multiple (units unknown) (unknown) Result panel 1353 (unknown) (no date) (unknown) (unknown) TRANSFUSED PRODUCT: Packed Cells COUNT: 1 (units unknown) (unknown) Result panel 1354 (unknown) (no date) (unknown) (unknown) TRANSFUSED PRODUCT: Packed Cells COUNT: 1 (units unknown) (unknown) Result panel 1355 (unknown) (no date) (unknown) (unknown) TRANSFUSED PRODUCT: Packed Cells COUNT: 1 (units unknown) (unknown) Result panel 1356 (unknown) (no date) (unknown) (unknown) TRANSFUSED PRODUCT: Packed Cells COUNT: 2 (units unknown) (unknown) Result panel 1357 (unknown) (no date) (unknown) (unknown) TRANSFUSED PRODUCT: Packed Cells COUNT: 2 (units unknown) (unknown) Result panel 1358 (unknown) (no date) (unknown) (unknown) TRANSFUSED PRODUCT: Packed Cells COUNT: 2 (units unknown) (unknown) Result panel 1359 (unknown) (no date) (unknown) (unknown) TRANSFUSED PRODUCT: Packed Cells COUNT: 2 (units unknown) (unknown) Result panel 1360 (unknown) (no date) (unknown) (unknown) TRANSFUSED PRODUCT: Packed Cells COUNT: 2 (units unknown) (unknown) Result panel 1361 (unknown) (no date) (unknown) (unknown) 0 /ul (unknown) (unknown) (no date) (unknown) (unknown) 0 /ul (unknown) (unknown) (no date) (unknown) (unknown) 0.5 % (unknown) (unknown) (no date) (unknown) (unknown) 0.5 % (unknown) (unknown) (no date) (unknown) (unknown) 15.9 % (unknown) (unknown) (no date) (unknown) (unknown) 21.3 % (unknown) (unknown) (no date) (unknown) (unknown) 2100 /ul (unknown) (unknown) (no date) (unknown) (unknown) 26.1 % (unknown) (unknown) (no date) (unknown) (unknown) 28.7 pg (unknown) (unknown) (no date) (unknown) (unknown) 284 x10 3/ul (unknown) (unknown) (no date) (unknown) (unknown) 3.08 x10 6/ul (unknown) (unknown) (no date) (unknown) (unknown) 33.8 % (unknown) (unknown) (no date) (unknown) (unknown) 6800 /ul (unknown) (unknown) (no date) (unknown) (unknown) 7.6 % (unknown) (unknown) (no date) (unknown) (unknown) 70.1 % (unknown) (unknown) (no date) (unknown) (unknown) 700 /ul (unknown) (unknown) (no date) (unknown) (unknown) 8.8 g/dl (unknown) (unknown) (no date) (unknown) (unknown) 84.9 fl (unknown) (unknown) (no date) (unknown) (unknown) 84.9 fl (unknown) (unknown) (no date) (unknown) (unknown) 9.7 x10 3/ul (unknown) (unknown) (no date) (unknown) (unknown) 9.7 x10 3/ul (unknown) Result panel 1362 (unknown) (no date) (unknown) (unknown) TRANSFUSED PRODUCT: Packed Cells COUNT: 2 (units unknown) (unknown) Result panel 1363 (unknown) (no date) (unknown) (unknown) (no value) (units unknown) (unknown) (unknown) (no date) (unknown) (unknown) (past 8 hours): (units unknown) (unknown) (unknown) (no date) (unknown) (unknown) 10/02/22 17:57 (units unknown) (unknown) (unknown) (no date) (unknown) (unknown) 10/02/22 19:13 (units unknown) (unknown) (unknown) (no date) (unknown) (unknown) 10/02/22 19:42 (units unknown) (unknown) (unknown) (no date) (unknown) (unknown) 10/04/22 10/05/22 (units unknown) (unknown) (unknown) (no date) (unknown) (unknown) 10/04/22 06:14 (units unknown) (unknown) (unknown) (no date) (unknown) (unknown) 10/04/22 21:42 (units unknown) (unknown) (unknown) (no date) (unknown) (unknown) 10/05/22 21:35 (units unknown) (unknown) (unknown) (no date) (unknown) (unknown) 10/06/22 (units unknown) (unknown) (unknown) (no date) (unknown) (unknown) 09:35 (units unknown) (unknown) (unknown) (no date) (unknown) (unknown) 0RF (units unknown) (unknown) (unknown) (no date) (unknown) (unknown) 1 - 2 tab PO BID (units unknown) (unknown) (unknown) (no date) (unknown) (unknown) 1 cap PO DAILY PRN (Reason: GI Upset) (units unknown) (unknown) (unknown) (no date) (unknown) (unknown) 10 mg PO DAILY PRN (Reason: Seasonal allergies) (units unknown) (unknown) (unknown) (no date) (unknown) (unknown) 10 mg PO DAILY (units unknown) (unknown) (unknown) (no date) (unknown) (unknown) 100 mg PO BID PRN (Reason: constipation) Qty: 30 0RF (units unknown) (unknown) (unknown) (no date) (unknown) (unknown) 17:22 21:35 (units unknown) (unknown) (unknown) (no date) (unknown) (unknown) 20 mg PO BEDTIME (units unknown) (unknown) (unknown) (no date) (unknown) (unknown) 20 mg PO DAILY (units unknown) (unknown) (unknown) (no date) (unknown) (unknown) 25 mg PO TID-QID PRN (Reason: itching) Qty: 60 0RF (units unknown) (unknown) (unknown) (no date) (unknown) (unknown) 3/5 strength in hip flexors, quadriceps, hamstrings, DF, EHL; 5/5 PF on left. (units unknown) (unknown) (unknown) (no date) (unknown) (unknown) 3151 (units unknown) (unknown) (unknown) (no date) (unknown) (unknown) 400 mg PO Q4H MDD Ma x 2400 mg per day PRN (Reason: Pain/inflammation) Qty: 90 (units unknown) (unknown) (unknown) (no date) (unknown) (unknown) 48 mm, 2 locking screws, 1 nonlocking screw, dual mobility liner, 2 cerclage (units unknown) (unknown) (unknown) (no date) (unknown) (unknown) 650 mg PO Q6H MDD Ma x 3000 mg per day PRN (Reason: fever or pain) Qty: 90 0RF (units unknown) (unknown) (unknown) (no date) (unknown) (unknown) 81 mg PO BID 42 Days Qty: 84 0RF (units unknown) (unknown) (unknown) (no date) (unknown) (unknown) Age/Sex: 72 / F (units unknown) (unknown) (unknown) (no date) (unknown) (unknown) Anesthesia Type: General and Spinal (units unknown) (unknown) (unknown) (no date) (unknown) (unknown) Antibody Screen Negative (units unknown) (unknown) (unknown) (no date) (unknown) (unknown) [employer] Sales: Kelley Springer (units unknown) (unknown) (unknown) (no date) (unknown) (unknown) Baso # (Auto) 0 (units unknown) (unknown) (unknown) (no date) (unknown) (unknown) Baso % (Auto) 0.5 (units unknown) (unknown) (unknown) (no date) (unknown) (unknown) Blood Pressure 94/45 L (units unknown) (unknown) (unknown) (no date) (unknown) (unknown) Blood Type O Positive (units unknown) (unknown) (unknown) (no date) (unknown) (unknown) Chief complaint: L H ip Dislocation (units unknown) (unknown) (unknown) (no date) (unknown) (unknown) Closure Type: primary (units unknown) (unknown) (unknown) (no date) (unknown) (unknown) Comment: Posterior h ip precautions (units unknown) (unknown) (unknown) (no date) (unknown) (unknown) Comment: WBAT, avoid extreme positioning, no hip abductor s (units unknown) (unknown) (unknown) (no date) (unknown) (unknown) Comment: (units unknown) (unknown) (unknown) (no date) (unknown) (unknown) Consult to Anesthesiology Routine (units unknown) (unknown) (unknown) (no date) (unknown) (unknown) Consult to Discharge Planning Routine (units unknown) (unknown) (unknown) (no date) (unknown) (unknown) Consult to Occupational Therapy Evaluate + Treat (units unknown) (unknown) (unknown) (no date) (unknown) (unknown) Consult to Physical Therapy Evaluate + Treat (units unknown) (unknown) (unknown) (no date) (unknown) (unknown) Consulting Provider: Anesthesiologist (units unknown) (unknown) (unknown) (no date) (unknown) (unknown) Consults: (units unknown) (unknown) (unknown) (no date) (unknown) (unknown) Crossmatch See Detail (units unknown) (unknown) (unknown) (no date) (unknown) (unknown) : 1950 Acct:[id number] (units unknown) (unknown) (unknown) (no date) (unknown) (unknown) Date Patient Seen: 10/06/22 (units unknown) (unknown) (unknown) (no date) (unknown) (unknown) Date of Service: 10/02/22 (units unknown) (unknown) (unknown) (no date) (unknown) (unknown) Date of admission: (units unknown) (unknown) (unknown) (no date) (unknown) (unknown) Date of procedure: 10/04/22 (units unknown) (unknown) (unknown) (no date) (unknown) (unknown) Deep Vein Thrombosis/Pulmonary Embolism Present on Admission: No (units unknown) (unknown) (unknown) (no date) (unknown) (unknown) Depression (units unknown) (unknown) (unknown) (no date) (unknown) (unknown) Discharge Data (units unknown) (unknown) (unknown) (no date) (unknown) (unknown) Discharge Plan (units unknown) (unknown) (unknown) (no date) (unknown) (unknown) Discharge Providers (units unknown) (unknown) (unknown) (no date) (unknown) (unknown) Discharge Summary (units unknown) (unknown) (unknown) (no date) (unknown) (unknown) Discharge orders + Medications (units unknown) (unknown) (unknown) (no date) (unknown) (unknown) Discharge provider: (units unknown) (unknown) (unknown) (no date) (unknown) (unknown) Diverticulitis (units unknown) (unknown) (unknown) (no date) (unknown) (unknown) Eos # (Auto) 0 (units unknown) (unknown) (unknown) (no date) (unknown) (unknown) Eos % (Auto) 0.5 L (units unknown) (unknown) (unknown) (no date) (unknown) (unknown) Estimated Blood Loss (mL): 300 (units unknown) (unknown) (unknown) (no date) (unknown) (unknown) Exam Narrative: (units unknown) (unknown) (unknown) (no date) (unknown) (unknown) Exam (units unknown) (unknown) (unknown) (no date) (unknown) (unknown) Excedrin Extra Strength 250-250-65 mg Tablet (units unknown) (unknown) (unknown) (no date) (unknown) (unknown) Findings: (units unknown) (unknown) (unknown) (no date) (unknown) (unknown) Follow up/Referrals: (units unknown) (unknown) (unknown) (no date) (unknown) (unknown) GERD (gastroesophage al reflux disease) (units unknown) (unknown) (unknown) (no date) (unknown) (unknown) HLD (hyperlipidemia) (units unknown) (unknown) (unknown) (no date) (unknown) (unknown) Hct 26.1 L (units unknown) (unknown) (unknown) (no date) (unknown) (unknown) Hearing impaired (units unknown) (unknown) (unknown) (no date) (unknown) (unknown) Hgb 8.8 L (units unknown) (unknown) (unknown) (no date) (unknown) (unknown) History of Present Illness (units unknown) (unknown) (unknown) (no date) (unknown) (unknown) History of bladder surgery (units unknown) (unknown) (unknown) (no date) (unknown) (unknown) History of total lef t knee replacement (units unknown) (unknown) (unknown) (no date) (unknown) (unknown) History of total rig ht knee replacement (units unknown) (unknown) (unknown) (no date) (unknown) (unknown) Hx of left breast biopsy (units unknown) (unknown) (unknown) (no date) (unknown) (unknown) Hx of right breast biopsy (units unknown) (unknown) (unknown) (no date) (unknown) (unknown) Hx of tonsillectomy (units unknown) (unknown) (unknown) (no date) (unknown) (unknown) Indications: (units unknown) (unknown) (unknown) (no date) (unknown) (unknown) [address] [address] (units unknown) (unknown) (unknown) (no date) (unknown) (unknown) Raquel Romano PA-C (units unknown) (unknown) (unknown) (no date) (unknown) (unknown) Maria Teresa Larsen PA-C (units unknown) (unknown) (unknown) (no date) (unknown) (unknown) Laboratory Results - last 24 hr (units unknown) (unknown) (unknown) (no date) (unknown) (unknown) Labs (units unknown) (unknown) (unknown) (no date) (unknown) (unknown) Labs: (units unknown) (unknown) (unknown) (no date) (unknown) (unknown) Lymph # (Auto) 2100 (units unknown) (unknown) (unknown) (no date) (unknown) (unknown) Lymph % (Auto) 21.3 L (units unknown) (unknown) (unknown) (no date) (unknown) (unknown) MCH 28.7 (units unknown) (unknown) (unknown) (no date) (unknown) (unknown) MCHC 33.8 (units unknown) (unknown) (unknown) (no date) (unknown) (unknown) MCV 84.9 D (units unknown) (unknown) (unknown) (no date) (unknown) (unknown) Medical History (units unknown) (unknown) (unknown) (no date) (unknown) (unknown) [place] # (Auto) 700 (units unknown) (unknown) (unknown) (no date) (unknown) (unknown) [place] % (Auto) 7.6 (units unknown) (unknown) (unknown) (no date) (unknown) (unknown) Narrative (units unknown) (unknown) (unknown) (no date) (unknown) (unknown) Narrative: (units unknown) (unknown) (unknown) (no date) (unknown) (unknown) Neut # (Auto) 6800 (units unknown) (unknown) (unknown) (no date) (unknown) (unknown) Neut % (Auto) 70.1 (units unknown) (unknown) (unknown) (no date) (unknown) (unknown) No Action (units unknown) (unknown) (unknown) (no date) (unknown) (unknown) Objective (units unknown) (unknown) (unknown) (no date) (unknown) (unknown) Operative Date/Time/Diagnoses (units unknown) (unknown) (unknown) (no date) (unknown) (unknown) Operative Notes (units unknown) (unknown) (unknown) (no date) (unknown) (unknown) Options risks benefi ts and complications including but not limited to, leg (units unknown) (unknown) (unknown) (no date) (unknown) (unknown) Osteoarthritis (units unknown) (unknown) (unknown) (no date) (unknown) (unknown) Oxygen Delivery Meth od Room Air (units unknown) (unknown) (unknown) (no date) (unknown) (unknown) Oxygen Flow Rate 0 (units unknown) (unknown) (unknown) (no date) (unknown) (unknown) PFSH (units unknown) (unknown) (unknown) (no date) (unknown) (unknown) Patient: Charisma Garciamike lane MR#: [id number] (units unknown) (unknown) (unknown) (no date) (unknown) (unknown) Physician Instructions: Evaluate and Treat (units unknown) (unknown) (unknown) (no date) (unknown) (unknown) Physician Instructions: Evaluate and treat (units unknown) (unknown) (unknown) (no date) (unknown) (unknown) Physician Instructions: post op SARA protocol (units unknown) (unknown) (unknown) (no date) (unknown) (unknown) Plt Count 284 (units unknown) (unknown) (unknown) (no date) (unknown) (unknown) Post-op diagnosis: same (units unknown) (unknown) (unknown) (no date) (unknown) (unknown) 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, left greater (units unknown) (unknown) (unknown) (no date) (unknown) (unknown) Prescriptions: (units unknown) (unknown) (unknown) (no date) (unknown) (unknown) Prevent blood clots (units unknown) (unknown) (unknown) (no date) (unknown) (unknown) Primary Care Provide r: Maria Teresa Larsen (units unknown) (unknown) (unknown) (no date) (unknown) (unknown) Primary care physician: (units unknown) (unknown) (unknown) (no date) (unknown) (unknown) Procedure + Clinicians (units unknown) (unknown) (unknown) (no date) (unknown) (unknown) Procedure: (units unknown) (unknown) (unknown) (no date) (unknown) (unknown) Prosthetic devices, grafts, tissues, transplants, or devices: (units unknown) (unknown) (unknown) (no date) (unknown) (unknown) Provider (units unknown) (unknown) (unknown) (no date) (unknown) (unknown) Provider: Raquel Romano P.A-C (units unknown) (unknown) (unknown) (no date) (unknown) (unknown) Pulse Oximetry 93 (units unknown) (unknown) (unknown) (no date) (unknown) (unknown) Pulse Rate 74 (units unknown) (unknown) (unknown) (no date) (unknown) (unknown) Quality (units unknown) (unknown) (unknown) (no date) (unknown) (unknown) RBC 3.08 L (units unknown) (unknown) (unknown) (no date) (unknown) (unknown) RDW 15.9 H (units unknown) (unknown) (unknown) (no date) (unknown) (unknown) Reason for consultation: Regional block for post operative pain control (units unknown) (unknown) (unknown) (no date) (unknown) (unknown) Respiratory Rate 10 L (units unknown) (unknown) (unknown) (no date) (unknown) (unknown) Revision left total hip arthroplasty, ORIF left greater trochanter (units unknown) (unknown) (unknown) (no date) (unknown) (unknown) Rx Instructions: (units unknown) (unknown) (unknown) (no date) (unknown) (unknown) Same procedure as scheduled: Yes (units unknown) (unknown) (unknown) (no date) (unknown) (unknown) Seasonal allergies (units unknown) (unknown) (unknown) (no date) (unknown) (unknown) Sensation to light touch intact throughout LLE. Calf soft and compressible. (units unknown) (unknown) (unknown) (no date) (unknown) (unknown) Signed By: (units unknown) (unknown) (unknown) (no date) (unknown) (unknown) River and nubia Redapt femur size 15 by 190 standard offset, Redapt acetabulum (units unknown) (unknown) (unknown) (no date) (unknown) (unknown) Smoking Status: Carmencita rubin smoker (units unknown) (unknown) (unknown) (no date) (unknown) (unknown) Social History (units unknown) (unknown) (unknown) (no date) (unknown) (unknown) Specimen(s): none sent (units unknown) (unknown) (unknown) (no date) (unknown) (unknown) Surgeon: Annika River (units unknown) (unknown) (unknown) (no date) (unknown) (unknown) Surgical History (units unknown) (unknown) (unknown) (no date) (unknown) (unknown) Temperature 97.6 F (units unknown) (unknown) (unknown) (no date) (unknown) (unknown) This is a 72-year-ol d female has a history of a left hip total hip (units unknown) (unknown) (unknown) (no date) (unknown) (unknown) Time Patient Seen: 09:48 (units unknown) (unknown) (unknown) (no date) (unknown) (unknown) Time of procedure: 15:00 (units unknown) (unknown) (unknown) (no date) (unknown) (unknown) VTE (units unknown) (unknown) (unknown) (no date) (unknown) (unknown) Very soft bone, adequate reduction of the greater trochanter fracture, (units unknown) (unknown) (unknown) (no date) (unknown) (unknown) Vital Signs (units unknown) (unknown) (unknown) (no date) (unknown) (unknown) WBC 9.7 (units unknown) (unknown) (unknown) (no date) (unknown) (unknown) Maria Teresa Larsen PA-C [Primary Care Provider] (units unknown) (unknown) (unknown) (no date) (unknown) (unknown) [Embedded Image Not Available] (units unknown) (unknown) (unknown) (no date) (unknown) (unknown) acetaminophen 325 mg Tablet (units unknown) (unknown) (unknown) (no date) (unknown) (unknown) alcohol intake: current (units unknown) (unknown) (unknown) (no date) (unknown) (unknown) arthroplasty.? Unfortunately she has had problems with instability and has a (units unknown) (unknown) (unknown) (no date) (unknown) (unknown) aspirin 81 mg Tablet,Delayed Release (Dr/Ec) (units unknown) (unknown) (unknown) (no date) (unknown) (unknown) atorvastatin 20 mg Tablet (units unknown) (unknown) (unknown) (no date) (unknown) (unknown) cables, 22 x +4 Oxinium femoral head with dual mobility 22 x 36 mm insert, (units unknown) (unknown) (unknown) (no date) (unknown) (unknown) cetirizine [Zyrtec] 10 mg Tablet (units unknown) (unknown) (unknown) (no date) (unknown) (unknown) comminuted slightly displaced trochanteric fracture, adequate stability after (units unknown) (unknown) (unknown) (no date) (unknown) (unknown) docusate sodium 100 mg Capsule (units unknown) (unknown) (unknown) (no date) (unknown) (unknown) escitalopram oxalate 20 mg Tablet (units unknown) (unknown) (unknown) (no date) (unknown) (unknown) for anesthesia as we ll as potential medical problems was discussed in detail. (units unknown) (unknown) (unknown) (no date) (unknown) (unknown) her trochanter, additional problems requiring additional operations and risks (units unknown) (unknown) (unknown) (no date) (unknown) (unknown) household members: spouse (units unknown) (unknown) (unknown) (no date) (unknown) (unknown) hydroxyzine pamoate [Vistaril] 25 mg capsule (units unknown) (unknown) (unknown) (no date) (unknown) (unknown) ibuprofen 400 mg Tablet (units unknown) (unknown) (unknown) (no date) (unknown) (unknown) left hip greater trochanter fracture.? She is brought to the operating room for (units unknown) (unknown) (unknown) (no date) (unknown) (unknown) length inequality, persistent instability, infection, failure to unite or heal (units unknown) (unknown) (unknown) (no date) (unknown) (unknown) omeprazole-sodium bicarbonate [Zegerid] 20-1.1 mg-gram Capsule (units unknown) (unknown) (unknown) (no date) (unknown) (unknown) reconstruction (units unknown) (unknown) (unknown) (no date) (unknown) (unknown) revision total hip arthroplasty and ORIF of her greater trochanter fracture.? (units unknown) (unknown) (unknown) (no date) (unknown) (unknown) solifenacin [Vesicar e] 10 mg Tablet (units unknown) (unknown) (unknown) (no date) (unknown) (unknown) trochanter fracture (units unknown) (unknown) Result panel [id number] (unknown) (no date) (unknown) (unknown) (no value) (units unknown) (unknown) (unknown) (no date) (unknown) (unknown) (past 8 hours): (units unknown) (unknown) (unknown) (no date) (unknown) (unknown) 10/02/22 17:57 (units unknown) (unknown) (unknown) (no date) (unknown) (unknown) 10/02/22 19:13 (units unknown) (unknown) (unknown) (no date) (unknown) (unknown) 10/02/22 19:42 (units unknown) (unknown) (unknown) (no date) (unknown) (unknown) 10/04/22 10/05/22 (units unknown) (unknown) (unknown) (no date) (unknown) (unknown) 10/04/22 06:14 (units unknown) (unknown) (unknown) (no date) (unknown) (unknown) 10/04/22 21:42 (units unknown) (unknown) (unknown) (no date) (unknown) (unknown) 10/05/22 21:35 (units unknown) (unknown) (unknown) (no date) (unknown) (unknown) 04/29/23 (units unknown) (unknown) (unknown) (no date) (unknown) (unknown) 09:35 (units unknown) (unknown) (unknown) (no date) (unknown) (unknown) 0RF (units unknown) (unknown) (unknown) (no date) (unknown) (unknown) 1 - 2 tab PO BID (units unknown) (unknown) (unknown) (no date) (unknown) (unknown) 1 cap PO DAILY PRN (Reason: GI Upset) (units unknown) (unknown) (unknown) (no date) (unknown) (unknown) 10 mg PO DAILY PRN (Reason: Seasonal allergies) (units unknown) (unknown) (unknown) (no date) (unknown) (unknown) 10 mg PO DAILY (units unknown) (unknown) (unknown) (no date) (unknown) (unknown) 100 mg PO BID PRN (Reason: constipation) Qty: 30 0RF (units unknown) (unknown) (unknown) (no date) (unknown) (unknown) 17:22 21:35 (units unknown) (unknown) (unknown) (no date) (unknown) (unknown) 20 mg PO BEDTIME (units unknown) (unknown) (unknown) (no date) (unknown) (unknown) 20 mg PO DAILY (units unknown) (unknown) (unknown) (no date) (unknown) (unknown) 25 mg PO TID-QID PRN (Reason: itching) Qty: 60 0RF (units unknown) (unknown) (unknown) (no date) (unknown) (unknown) 3/5 strength in hip flexors, quadriceps, hamstrings, DF, EHL; 5/5 PF on left. (units unknown) (unknown) (unknown) (no date) (unknown) (unknown) 3151 (units unknown) (unknown) (unknown) (no date) (unknown) (unknown) 400 mg PO Q4H MDD Ma x 2400 mg per day PRN (Reason: Pain/inflammation) Qty: 90 (units unknown) (unknown) (unknown) (no date) (unknown) (unknown) 48 mm, 2 locking screws, 1 nonlocking screw, dual mobility liner, 2 cerclage (units unknown) (unknown) (unknown) (no date) (unknown) (unknown) 650 mg PO Q6H MDD Ma x 3000 mg per day PRN (Reason: fever or pain) Qty: 90 0RF (units unknown) (unknown) (unknown) (no date) (unknown) (unknown) 81 mg PO BID 42 Days Qty: 84 0RF (units unknown) (unknown) (unknown) (no date) (unknown) (unknown) Age/Sex: 72 / F (units unknown) (unknown) (unknown) (no date) (unknown) (unknown) Anesthesia Type: General and Spinal (units unknown) (unknown) (unknown) (no date) (unknown) (unknown) Antibody Screen Negative (units unknown) (unknown) (unknown) (no date) (unknown) (unknown) Assessment and Plan (units unknown) (unknown) (unknown) (no date) (unknown) (unknown) Assessment: (units unknown) (unknown) (unknown) (no date) (unknown) (unknown) [employer] Sales: Kelley Springer (units unknown) (unknown) (unknown) (no date) (unknown) (unknown) Baso # (Auto) 0 (units unknown) (unknown) (unknown) (no date) (unknown) (unknown) Baso % (Auto) 0.5 (units unknown) (unknown) (unknown) (no date) (unknown) (unknown) Blood Pressure 94/45 L (units unknown) (unknown) (unknown) (no date) (unknown) (unknown) Blood Type O Positive (units unknown) (unknown) (unknown) (no date) (unknown) (unknown) Chief complaint: L H ip Dislocation (units unknown) (unknown) (unknown) (no date) (unknown) (unknown) Closure Type: primary (units unknown) (unknown) (unknown) (no date) (unknown) (unknown) Comment: Posterior h ip precautions (units unknown) (unknown) (unknown) (no date) (unknown) (unknown) Comment: WBAT, avoid extreme positioning, no hip abductor s (units unknown) (unknown) (unknown) (no date) (unknown) (unknown) Comment: (units unknown) (unknown) (unknown) (no date) (unknown) (unknown) Consult to Anesthesiology Routine (units unknown) (unknown) (unknown) (no date) (unknown) (unknown) Consult to Discharge Planning Routine (units unknown) (unknown) (unknown) (no date) (unknown) (unknown) Consult to Occupational Therapy Evaluate + Treat (units unknown) (unknown) (unknown) (no date) (unknown) (unknown) Consult to Physical Therapy Evaluate + Treat (units unknown) (unknown) (unknown) (no date) (unknown) (unknown) Consulting Provider: Anesthesiologist (units unknown) (unknown) (unknown) (no date) (unknown) (unknown) Consults: (units unknown) (unknown) (unknown) (no date) (unknown) (unknown) Crossmatch See Detail (units unknown) (unknown) (unknown) (no date) (unknown) (unknown) : 1950 Acct:[id number] (units unknown) (unknown) (unknown) (no date) (unknown) (unknown) Date Patient Seen: 10/06/22 (units unknown) (unknown) (unknown) (no date) (unknown) (unknown) Date of Service: 10/02/22 (units unknown) (unknown) (unknown) (no date) (unknown) (unknown) Date of admission: (units unknown) (unknown) (unknown) (no date) (unknown) (unknown) Date of procedure: 10/04/22 (units unknown) (unknown) (unknown) (no date) (unknown) (unknown) Deep Vein Thrombosis/Pulmonary Embolism Present on Admission: No (units unknown) (unknown) (unknown) (no date) (unknown) (unknown) Depression (units unknown) (unknown) (unknown) (no date) (unknown) (unknown) Discharge Assessment + Plan (units unknown) (unknown) (unknown) (no date) (unknown) (unknown) Discharge Data (units unknown) (unknown) (unknown) (no date) (unknown) (unknown) Discharge Date: 10/07/22 (units unknown) (unknown) (unknown) (no date) (unknown) (unknown) Discharge Diagnosis: (units unknown) (unknown) (unknown) (no date) (unknown) (unknown) Discharge Plan (units unknown) (unknown) (unknown) (no date) (unknown) (unknown) Discharge Providers (units unknown) (unknown) (unknown) (no date) (unknown) (unknown) Discharge Summary (units unknown) (unknown) (unknown) (no date) (unknown) (unknown) Discharge orders + Medications (units unknown) (unknown) (unknown) (no date) (unknown) (unknown) Discharge provider: (units unknown) (unknown) (unknown) (no date) (unknown) (unknown) Diverticulitis (units unknown) (unknown) (unknown) (no date) (unknown) (unknown) Eos # (Auto) 0 (units unknown) (unknown) (unknown) (no date) (unknown) (unknown) Eos % (Auto) 0.5 L (units unknown) (unknown) (unknown) (no date) (unknown) (unknown) Estimated Blood Loss (mL): 300 (units unknown) (unknown) (unknown) (no date) (unknown) (unknown) Exam Narrative: (units unknown) (unknown) (unknown) (no date) (unknown) (unknown) Exam (units unknown) (unknown) (unknown) (no date) (unknown) (unknown) Excedrin Extra Strength 250-250-65 mg Tablet (units unknown) (unknown) (unknown) (no date) (unknown) (unknown) Findings: (units unknown) (unknown) (unknown) (no date) (unknown) (unknown) Follow up/Referrals: (units unknown) (unknown) (unknown) (no date) (unknown) (unknown) GERD (gastroesophage al reflux disease) (units unknown) (unknown) (unknown) (no date) (unknown) (unknown) HLD (hyperlipidemia) (units unknown) (unknown) (unknown) (no date) (unknown) (unknown) Hct 26.1 L (units unknown) (unknown) (unknown) (no date) (unknown) (unknown) Hearing impaired (units unknown) (unknown) (unknown) (no date) (unknown) (unknown) Hgb 8.8 L (units unknown) (unknown) (unknown) (no date) (unknown) (unknown) History of Present Illness (units unknown) (unknown) (unknown) (no date) (unknown) (unknown) History of bladder surgery (units unknown) (unknown) (unknown) (no date) (unknown) (unknown) History of total lef t knee replacement (units unknown) (unknown) (unknown) (no date) (unknown) (unknown) History of total rig ht knee replacement (units unknown) (unknown) (unknown) (no date) (unknown) (unknown) Hospital Course (units unknown) (unknown) (unknown) (no date) (unknown) (unknown) Hospital Course: (units unknown) (unknown) (unknown) (no date) (unknown) (unknown) Hx of left breast biopsy (units unknown) (unknown) (unknown) (no date) (unknown) (unknown) Hx of right breast biopsy (units unknown) (unknown) (unknown) (no date) (unknown) (unknown) Hx of tonsillectomy (units unknown) (unknown) (unknown) (no date) (unknown) (unknown) Indications: (units unknown) (unknown) (unknown) (no date) (unknown) (unknown) [address] [address] (units unknown) (unknown) (unknown) (no date) (unknown) (unknown) Raquel Romano PA-C (units unknown) (unknown) (unknown) (no date) (unknown) (unknown) Maria Teresa Larsen PA-C (units unknown) (unknown) (unknown) (no date) (unknown) (unknown) Laboratory Results - last 24 hr (units unknown) (unknown) (unknown) (no date) (unknown) (unknown) Labs (units unknown) (unknown) (unknown) (no date) (unknown) (unknown) Labs: (units unknown) (unknown) (unknown) (no date) (unknown) (unknown) Left total hip arthroplasty with instability, left greater trochanter fracture, (units unknown) (unknown) (unknown) (no date) (unknown) (unknown) Lymph # (Auto) 2100 (units unknown) (unknown) (unknown) (no date) (unknown) (unknown) Lymph % (Auto) 21.3 L (units unknown) (unknown) (unknown) (no date) (unknown) (unknown) MCH 28.7 (units unknown) (unknown) (unknown) (no date) (unknown) (unknown) MCHC 33.8 (units unknown) (unknown) (unknown) (no date) (unknown) (unknown) MCV 84.9 D (units unknown) (unknown) (unknown) (no date) (unknown) (unknown) Medical History (units unknown) (unknown) (unknown) (no date) (unknown) (unknown) [place] # (Auto) 700 (units unknown) (unknown) (unknown) (no date) (unknown) (unknown) [place] % (Auto) 7.6 (units unknown) (unknown) (unknown) (no date) (unknown) (unknown) Ms Garcia's hospital course was remarkable for difficulty with pain control and (units unknown) (unknown) (unknown) (no date) (unknown) (unknown) Narrative (units unknown) (unknown) (unknown) (no date) (unknown) (unknown) Narrative: (units unknown) (unknown) (unknown) (no date) (unknown) (unknown) Neut # (Auto) 6800 (units unknown) (unknown) (unknown) (no date) (unknown) (unknown) Neut % (Auto) 70.1 (units unknown) (unknown) (unknown) (no date) (unknown) (unknown) No Action (units unknown) (unknown) (unknown) (no date) (unknown) (unknown) Objective (units unknown) (unknown) (unknown) (no date) (unknown) (unknown) Operative Date/Time/Diagnoses (units unknown) (unknown) (unknown) (no date) (unknown) (unknown) Operative Notes (units unknown) (unknown) (unknown) (no date) (unknown) (unknown) Options risks benefi ts and complications including but not limited to, leg (units unknown) (unknown) (unknown) (no date) (unknown) (unknown) Osteoarthritis (units unknown) (unknown) (unknown) (no date) (unknown) (unknown) Oxygen Delivery Meth od Room Air (units unknown) (unknown) (unknown) (no date) (unknown) (unknown) Oxygen Flow Rate 0 (units unknown) (unknown) (unknown) (no date) (unknown) (unknown) PFSH (units unknown) (unknown) (unknown) (no date) (unknown) (unknown) ELENA dressing CDI, n ot functioning d/t inadequate seal. (units unknown) (unknown) (unknown) (no date) (unknown) (unknown) Patient Disposition: SNF (units unknown) (unknown) (unknown) (no date) (unknown) (unknown) Patient: IsaiBarbara MR#: [id number] (units unknown) (unknown) (unknown) (no date) (unknown) (unknown) Physician Instructions: Evaluate and Treat (units unknown) (unknown) (unknown) (no date) (unknown) (unknown) Physician Instructions: Evaluate and treat (units unknown) (unknown) (unknown) (no date) (unknown) (unknown) Physician Instructions: post op SARA protocol (units unknown) (unknown) (unknown) (no date) (unknown) (unknown) Plan of Treatment: (units unknown) (unknown) (unknown) (no date) (unknown) (unknown) Plt Count 284 (units unknown) (unknown) (unknown) (no date) (unknown) (unknown) Post-op diagnosis: same (units unknown) (unknown) (unknown) (no date) (unknown) (unknown) 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, left greater (units unknown) (unknown) (unknown) (no date) (unknown) (unknown) Prescriptions: (units unknown) (unknown) (unknown) (no date) (unknown) (unknown) Prevent blood clots (units unknown) (unknown) (unknown) (no date) (unknown) (unknown) Primary Care Provide r: Maria Teresa Larsen (units unknown) (unknown) (unknown) (no date) (unknown) (unknown) Primary care physician: (units unknown) (unknown) (unknown) (no date) (unknown) (unknown) Procedure + Clinicians (units unknown) (unknown) (unknown) (no date) (unknown) (unknown) Procedure: (units unknown) (unknown) (unknown) (no date) (unknown) (unknown) Prosthetic devices, grafts, tissues, transplants, or devices: (units unknown) (unknown) (unknown) (no date) (unknown) (unknown) Provider (units unknown) (unknown) (unknown) (no date) (unknown) (unknown) Provider: Raquel Romano P.A-C (units unknown) (unknown) (unknown) (no date) (unknown) (unknown) Pulse Oximetry 93 (units unknown) (unknown) (unknown) (no date) (unknown) (unknown) Pulse Rate 74 (units unknown) (unknown) (unknown) (no date) (unknown) (unknown) Quality (units unknown) (unknown) (unknown) (no date) (unknown) (unknown) RBC 3.08 L (units unknown) (unknown) (unknown) (no date) (unknown) (unknown) RDW 15.9 H (units unknown) (unknown) (unknown) (no date) (unknown) (unknown) Reason for consultation: Regional block for post operative pain control (units unknown) (unknown) (unknown) (no date) (unknown) (unknown) Respiratory Rate 10 L (units unknown) (unknown) (unknown) (no date) (unknown) (unknown) Revision left total hip arthroplasty, ORIF left greater trochanter (units unknown) (unknown) (unknown) (no date) (unknown) (unknown) Rx Instructions: (units unknown) (unknown) (unknown) (no date) (unknown) (unknown) Same procedure as scheduled: Yes (units unknown) (unknown) (unknown) (no date) (unknown) (unknown) Seasonal allergies (units unknown) (unknown) (unknown) (no date) (unknown) (unknown) Sensation to light touch intact throughout LLE. Calf soft and compressible. (units unknown) (unknown) (unknown) (no date) (unknown) (unknown) Signed By: (units unknown) (unknown) (unknown) (no date) (unknown) (unknown) Mirian Redapt femur size 15 by 190 standard offset, Redapt acetabulum (units unknown) (unknown) (unknown) (no date) (unknown) (unknown) Smoking Status: Carmencita caryn smoker (units unknown) (unknown) (unknown) (no date) (unknown) (unknown) Social History (units unknown) (unknown) (unknown) (no date) (unknown) (unknown) Specimen(s): none sent (units unknown) (unknown) (unknown) (no date) (unknown) (unknown) Stand Alone Forms: Patient Portal/API (units unknown) (unknown) (unknown) (no date) (unknown) (unknown) Summary (units unknown) (unknown) (unknown) (no date) (unknown) (unknown) Surgeon: Annika River (units unknown) (unknown) (unknown) (no date) (unknown) (unknown) Surgical History (units unknown) (unknown) (unknown) (no date) (unknown) (unknown) Temperature 97.6 F (units unknown) (unknown) (unknown) (no date) (unknown) (unknown) This is a 72-year-ol d female has a history of a left hip total hip (units unknown) (unknown) (unknown) (no date) (unknown) (unknown) Time Patient Seen: 09:48 (units unknown) (unknown) (unknown) (no date) (unknown) (unknown) Time of procedure: 15:00 (units unknown) (unknown) (unknown) (no date) (unknown) (unknown) VTE (units unknown) (unknown) (unknown) (no date) (unknown) (unknown) Very soft bone, adequate reduction of the greater trochanter fracture, (units unknown) (unknown) (unknown) (no date) (unknown) (unknown) Visit Report/Dischar ge Packet (units unknown) (unknown) (unknown) (no date) (unknown) (unknown) Vital Signs (units unknown) (unknown) (unknown) (no date) (unknown) (unknown) WBC 9.7 (units unknown) (unknown) (unknown) (no date) (unknown) (unknown) Will recheck H/H today. If stable and pain can be controlled on oral (units unknown) (unknown) (unknown) (no date) (unknown) (unknown) Maria Teresa Larsen PA-C [Primary Care Provider] (units unknown) (unknown) (unknown) (no date) (unknown) (unknown) [Embedded Image Not Available] (units unknown) (unknown) (unknown) (no date) (unknown) (unknown) acetaminophen 325 mg Tablet (units unknown) (unknown) (unknown) (no date) (unknown) (unknown) alcohol intake: current (units unknown) (unknown) (unknown) (no date) (unknown) (unknown) arthroplasty.? Unfortunately she has had problems with instability and has a (units unknown) (unknown) (unknown) (no date) (unknown) (unknown) aspirin 81 mg Tablet,Delayed Release (Dr/Ec) (units unknown) (unknown) (unknown) (no date) (unknown) (unknown) atorvastatin 20 mg Tablet (units unknown) (unknown) (unknown) (no date) (unknown) (unknown) because of this, she required SNF for further rehab prior to homegoing. She was (units unknown) (unknown) (unknown) (no date) (unknown) (unknown) cables, 22 x +4 Oxinium femoral head with dual mobility 22 x 36 mm insert, (units unknown) (unknown) (unknown) (no date) (unknown) (unknown) cetirizine [Zyrtec] 10 mg Tablet (units unknown) (unknown) (unknown) (no date) (unknown) (unknown) comminuted slightly displaced trochanteric fracture, adequate stability after (units unknown) (unknown) (unknown) (no date) (unknown) (unknown) docusate sodium 100 mg Capsule (units unknown) (unknown) (unknown) (no date) (unknown) (unknown) escitalopram oxalate 20 mg Tablet (units unknown) (unknown) (unknown) (no date) (unknown) (unknown) feeling better. She had significant weakness in the left leg on exam and global (units unknown) (unknown) (unknown) (no date) (unknown) (unknown) for anesthesia as we ll as potential medical problems was discussed in detail. (units unknown) (unknown) (unknown) (no date) (unknown) (unknown) her trochanter, additional problems requiring additional operations and risks (units unknown) (unknown) (unknown) (no date) (unknown) (unknown) hip precautions and required maximum assistance with transfers and mobility; (units unknown) (unknown) (unknown) (no date) (unknown) (unknown) household members: spouse (units unknown) (unknown) (unknown) (no date) (unknown) (unknown) hydroxyzine pamoate [Vistaril] 25 mg capsule (units unknown) (unknown) (unknown) (no date) (unknown) (unknown) ibuprofen 400 mg Tablet (units unknown) (unknown) (unknown) (no date) (unknown) (unknown) left hip greater trochanter fracture.? She is brought to the operating room for (units unknown) (unknown) (unknown) (no date) (unknown) (unknown) length inequality, persistent instability, infection, failure to unite or heal (units unknown) (unknown) (unknown) (no date) (unknown) (unknown) medication, will mg n on d/c to SNF tomorrow. Reinforce ELENA dressing. F/u in (units unknown) (unknown) (unknown) (no date) (unknown) (unknown) office in 2 weeks. (units unknown) (unknown) (unknown) (no date) (unknown) (unknown) omeprazole-sodium bicarbonate [Zegerid] 20-1.1 mg-gram Capsule (units unknown) (unknown) (unknown) (no date) (unknown) (unknown) reconstruction (units unknown) (unknown) (unknown) (no date) (unknown) (unknown) responded appropriately to transfusion. On the morning of POD# 2, she was (units unknown) (unknown) (unknown) (no date) (unknown) (unknown) revision total hip arthroplasty and ORIF of her greater trochanter fracture.? (units unknown) (unknown) (unknown) (no date) (unknown) (unknown) s/p Revision left total hip arthroplasty, ORIF left greater trochanter (units unknown) (unknown) (unknown) (no date) (unknown) (unknown) significant postop anemia that required transfusion of 2 units PRBCs. Her H/H (units unknown) (unknown) (unknown) (no date) (unknown) (unknown) solifenacin [Vesicar e] 10 mg Tablet (units unknown) (unknown) (unknown) (no date) (unknown) (unknown) trochanter fracture (units unknown) (unknown) (unknown) (no date) (unknown) (unknown) voiding and eating without difficulty. (units unknown) (unknown) Result panel [id number] (unknown) (no date) (unknown) (unknown) (no value) (units unknown) (unknown) (unknown) (no date) (unknown) (unknown) (past 8 hours): (units unknown) (unknown) (unknown) (no date) (unknown) (unknown) 10/02/22 17:57 (units unknown) (unknown) (unknown) (no date) (unknown) (unknown) 10/02/22 19:13 (units unknown) (unknown) (unknown) (no date) (unknown) (unknown) 10/02/22 19:42 (units unknown) (unknown) (unknown) (no date) (unknown) (unknown) 10/04/22 10/05/22 (units unknown) (unknown) (unknown) (no date) (unknown) (unknown) 10/04/22 06:14 (units unknown) (unknown) (unknown) (no date) (unknown) (unknown) 10/04/22 21:42 (units unknown) (unknown) (unknown) (no date) (unknown) (unknown) 10/05/22 21:35 (units unknown) (unknown) (unknown) (no date) (unknown) (unknown) 10/06/22 (units unknown) (unknown) (unknown) (no date) (unknown) (unknown) 09:35 (units unknown) (unknown) (unknown) (no date) (unknown) (unknown) 0RF (units unknown) (unknown) (unknown) (no date) (unknown) (unknown) 1 - 2 tab PO BID (units unknown) (unknown) (unknown) (no date) (unknown) (unknown) 1 cap PO DAILY PRN (Reason: GI Upset) (units unknown) (unknown) (unknown) (no date) (unknown) (unknown) 10 mg PO DAILY PRN (Reason: Seasonal allergies) (units unknown) (unknown) (unknown) (no date) (unknown) (unknown) 10 mg PO DAILY (units unknown) (unknown) (unknown) (no date) (unknown) (unknown) 100 mg PO BID PRN (Reason: constipation) Qty: 30 0RF (units unknown) (unknown) (unknown) (no date) (unknown) (unknown) 17:22 21:35 (units unknown) (unknown) (unknown) (no date) (unknown) (unknown) 20 mg PO BEDTIME (units unknown) (unknown) (unknown) (no date) (unknown) (unknown) 20 mg PO DAILY (units unknown) (unknown) (unknown) (no date) (unknown) (unknown) 25 mg PO TID-QID PRN (Reason: itching) Qty: 60 0RF (units unknown) (unknown) (unknown) (no date) (unknown) (unknown) 3/5 strength in hip flexors, quadriceps, hamstrings, DF, EHL; 5/5 PF on left. (units unknown) (unknown) (unknown) (no date) (unknown) (unknown) 3151 (units unknown) (unknown) (unknown) (no date) (unknown) (unknown) 400 mg PO Q4H MDD Ma x 2400 mg per day PRN (Reason: Pain/inflammation) Qty: 90 (units unknown) (unknown) (unknown) (no date) (unknown) (unknown) 48 mm, 2 locking screws, 1 nonlocking screw, dual mobility liner, 2 cerclage (units unknown) (unknown) (unknown) (no date) (unknown) (unknown) 650 mg PO Q6H MDD Ma x 3000 mg per day PRN (Reason: fever or pain) Qty: 90 0RF (units unknown) (unknown) (unknown) (no date) (unknown) (unknown) 81 mg PO BID 42 Days Qty: 84 0RF (units unknown) (unknown) (unknown) (no date) (unknown) (unknown) Activity: Global hip precautions (anterior and posterior precautions) with full (units unknown) (unknown) (unknown) (no date) (unknown) (unknown) Age/Sex: 72 / F (units unknown) (unknown) (unknown) (no date) (unknown) (unknown) Anesthesia Type: General and Spinal (units unknown) (unknown) (unknown) (no date) (unknown) (unknown) Antibody Screen Negative (units unknown) (unknown) (unknown) (no date) (unknown) (unknown) Assessment and Plan (units unknown) (unknown) (unknown) (no date) (unknown) (unknown) Assessment: (units unknown) (unknown) (unknown) (no date) (unknown) (unknown) [employer]: Kelley Springer (units unknown) (unknown) (unknown) (no date) (unknown) (unknown) Avoid hip abductor exercises because of trochanteric repair.? She should work to (units unknown) (unknown) (unknown) (no date) (unknown) (unknown) Baso # (Auto) 0 (units unknown) (unknown) (unknown) (no date) (unknown) (unknown) Baso % (Auto) 0.5 (units unknown) (unknown) (unknown) (no date) (unknown) (unknown) Blood Pressure 94/45 L (units unknown) (unknown) (unknown) (no date) (unknown) (unknown) Blood Type O Positive (units unknown) (unknown) (unknown) (no date) (unknown) (unknown) Chief complaint: L H ip Dislocation (units unknown) (unknown) (unknown) (no date) (unknown) (unknown) Closure Type: primary (units unknown) (unknown) (unknown) (no date) (unknown) (unknown) Comment: Posterior h ip precautions (units unknown) (unknown) (unknown) (no date) (unknown) (unknown) Comment: WBAT, avoid extreme positioning, no hip abductor s (units unknown) (unknown) (unknown) (no date) (unknown) (unknown) Comment: (units unknown) (unknown) (unknown) (no date) (unknown) (unknown) Consult to Anesthesiology Routine (units unknown) (unknown) (unknown) (no date) (unknown) (unknown) Consult to Discharge Planning Routine (units unknown) (unknown) (unknown) (no date) (unknown) (unknown) Consult to Occupational Therapy Evaluate + Treat (units unknown) (unknown) (unknown) (no date) (unknown) (unknown) Consult to Physical Therapy Evaluate + Treat (units unknown) (unknown) (unknown) (no date) (unknown) (unknown) Consulting Provider: Anesthesiologist (units unknown) (unknown) (unknown) (no date) (unknown) (unknown) Consults: (units unknown) (unknown) (unknown) (no date) (unknown) (unknown) Crossmatch See Detail (units unknown) (unknown) (unknown) (no date) (unknown) (unknown) : 1950 Acct:[id number] (units unknown) (unknown) (unknown) (no date) (unknown) (unknown) Date Patient Seen: 10/06/22 (units unknown) (unknown) (unknown) (no date) (unknown) (unknown) Date of Service: 10/02/22 (units unknown) (unknown) (unknown) (no date) (unknown) (unknown) Date of admission: (units unknown) (unknown) (unknown) (no date) (unknown) (unknown) Date of procedure: 10/04/22 (units unknown) (unknown) (unknown) (no date) (unknown) (unknown) Deep Vein Thrombosis/Pulmonary Embolism Present on Admission: No (units unknown) (unknown) (unknown) (no date) (unknown) (unknown) Depression (units unknown) (unknown) (unknown) (no date) (unknown) (unknown) Diet/Activity/Treatm en ts (units unknown) (unknown) (unknown) (no date) (unknown) (unknown) Diet: Diet as Tolerated (units unknown) (unknown) (unknown) (no date) (unknown) (unknown) Discharge Assessment + Plan (units unknown) (unknown) (unknown) (no date) (unknown) (unknown) Discharge Data (units unknown) (unknown) (unknown) (no date) (unknown) (unknown) Discharge Date: 10/07/22 (units unknown) (unknown) (unknown) (no date) (unknown) (unknown) Discharge Diagnosis: (units unknown) (unknown) (unknown) (no date) (unknown) (unknown) Discharge Plan (units unknown) (unknown) (unknown) (no date) (unknown) (unknown) Discharge Providers (units unknown) (unknown) (unknown) (no date) (unknown) (unknown) Discharge Summary (units unknown) (unknown) (unknown) (no date) (unknown) (unknown) Discharge orders + Medications (units unknown) (unknown) (unknown) (no date) (unknown) (unknown) Discharge provider: (units unknown) (unknown) (unknown) (no date) (unknown) (unknown) Diverticulitis (units unknown) (unknown) (unknown) (no date) (unknown) (unknown) Eos # (Auto) 0 (units unknown) (unknown) (unknown) (no date) (unknown) (unknown) Eos % (Auto) 0.5 L (units unknown) (unknown) (unknown) (no date) (unknown) (unknown) Estimated Blood Loss (mL): 300 (units unknown) (unknown) (unknown) (no date) (unknown) (unknown) Exam Narrative: (units unknown) (unknown) (unknown) (no date) (unknown) (unknown) Exam (units unknown) (unknown) (unknown) (no date) (unknown) (unknown) Excedrin Extra Strength 250-250-65 mg Tablet (units unknown) (unknown) (unknown) (no date) (unknown) (unknown) Findings: (units unknown) (unknown) (unknown) (no date) (unknown) (unknown) Follow up/Referrals: (units unknown) (unknown) (unknown) (no date) (unknown) (unknown) GERD (gastroesophage al reflux disease) (units unknown) (unknown) (unknown) (no date) (unknown) (unknown) HLD (hyperlipidemia) (units unknown) (unknown) (unknown) (no date) (unknown) (unknown) Hct 26.1 L (units unknown) (unknown) (unknown) (no date) (unknown) (unknown) Hearing impaired (units unknown) (unknown) (unknown) (no date) (unknown) (unknown) Hgb 8.8 L (units unknown) (unknown) (unknown) (no date) (unknown) (unknown) History of Present Illness (units unknown) (unknown) (unknown) (no date) (unknown) (unknown) History of bladder surgery (units unknown) (unknown) (unknown) (no date) (unknown) (unknown) History of total lef t knee replacement (units unknown) (unknown) (unknown) (no date) (unknown) (unknown) History of total rig ht knee replacement (units unknown) (unknown) (unknown) (no date) (unknown) (unknown) Hospital Course (units unknown) (unknown) (unknown) (no date) (unknown) (unknown) Hospital Course: (units unknown) (unknown) (unknown) (no date) (unknown) (unknown) Hx of left breast biopsy (units unknown) (unknown) (unknown) (no date) (unknown) (unknown) Hx of right breast biopsy (units unknown) (unknown) (unknown) (no date) (unknown) (unknown) Hx of tonsillectomy (units unknown) (unknown) (unknown) (no date) (unknown) (unknown) Indications: (units unknown) (unknown) (unknown) (no date) (unknown) (unknown) [address] [address] (units unknown) (unknown) (unknown) (no date) (unknown) (unknown) Raquel Romano PA-C (units unknown) (unknown) (unknown) (no date) (unknown) (unknown) Maria Teresa Larsen PA-C (units unknown) (unknown) (unknown) (no date) (unknown) (unknown) Laboratory Results - last 24 hr (units unknown) (unknown) (unknown) (no date) (unknown) (unknown) Labs (units unknown) (unknown) (unknown) (no date) (unknown) (unknown) Labs: (units unknown) (unknown) (unknown) (no date) (unknown) (unknown) Left total hip arthroplasty with instability, left greater trochanter fracture, (units unknown) (unknown) (unknown) (no date) (unknown) (unknown) Lymph # (Auto) 2100 (units unknown) (unknown) (unknown) (no date) (unknown) (unknown) Lymph % (Auto) 21.3 L (units unknown) (unknown) (unknown) (no date) (unknown) (unknown) MCH 28.7 (units unknown) (unknown) (unknown) (no date) (unknown) (unknown) MCHC 33.8 (units unknown) (unknown) (unknown) (no date) (unknown) (unknown) MCV 84.9 D (units unknown) (unknown) (unknown) (no date) (unknown) (unknown) Medical History (units unknown) (unknown) (unknown) (no date) (unknown) (unknown) [place] # (Auto) 700 (units unknown) (unknown) (unknown) (no date) (unknown) (unknown) [place] % (Auto) 7.6 (units unknown) (unknown) (unknown) (no date) (unknown) (unknown) Ms Garcia's hospital course was remarkable for difficulty with pain control and (units unknown) (unknown) (unknown) (no date) (unknown) (unknown) Narrative (units unknown) (unknown) (unknown) (no date) (unknown) (unknown) Narrative: (units unknown) (unknown) (unknown) (no date) (unknown) (unknown) Neut # (Auto) 6800 (units unknown) (unknown) (unknown) (no date) (unknown) (unknown) Neut % (Auto) 70.1 (units unknown) (unknown) (unknown) (no date) (unknown) (unknown) No Action (units unknown) (unknown) (unknown) (no date) (unknown) (unknown) Objective (units unknown) (unknown) (unknown) (no date) (unknown) (unknown) Operative Date/Time/Diagnoses (units unknown) (unknown) (unknown) (no date) (unknown) (unknown) Operative Notes (units unknown) (unknown) (unknown) (no date) (unknown) (unknown) Options risks benefi ts and complications including but not limited to, leg (units unknown) (unknown) (unknown) (no date) (unknown) (unknown) Osteoarthritis (units unknown) (unknown) (unknown) (no date) (unknown) (unknown) Oxygen Delivery Meth od Room Air (units unknown) (unknown) (unknown) (no date) (unknown) (unknown) Oxygen Flow Rate 0 (units unknown) (unknown) (unknown) (no date) (unknown) (unknown) PFSH (units unknown) (unknown) (unknown) (no date) (unknown) (unknown) ELENA dressing CDI, n ot functioning d/t inadequate seal. (units unknown) (unknown) (unknown) (no date) (unknown) (unknown) Patient Disposition: SNF (units unknown) (unknown) (unknown) (no date) (unknown) (unknown) Patient: Barbara Garcia MR#: [id number] (units unknown) (unknown) (unknown) (no date) (unknown) (unknown) Physician Instructions: Evaluate and Treat (units unknown) (unknown) (unknown) (no date) (unknown) (unknown) Physician Instructions: Evaluate and treat (units unknown) (unknown) (unknown) (no date) (unknown) (unknown) Physician Instructions: post op SARA protocol (units unknown) (unknown) (unknown) (no date) (unknown) (unknown) Plan of Treatment: (units unknown) (unknown) (unknown) (no date) (unknown) (unknown) Plt Count 284 (units unknown) (unknown) (unknown) (no date) (unknown) (unknown) Post-op diagnosis: same (units unknown) (unknown) (unknown) (no date) (unknown) (unknown) 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, left greater (units unknown) (unknown) (unknown) (no date) (unknown) (unknown) Prescriptions: (units unknown) (unknown) (unknown) (no date) (unknown) (unknown) Prevent blood clots (units unknown) (unknown) (unknown) (no date) (unknown) (unknown) Primary Care Provide r: Maria Teresa Larsen (units unknown) (unknown) (unknown) (no date) (unknown) (unknown) Primary care physician: (units unknown) (unknown) (unknown) (no date) (unknown) (unknown) Procedure + Clinicians (units unknown) (unknown) (unknown) (no date) (unknown) (unknown) Procedure: (units unknown) (unknown) (unknown) (no date) (unknown) (unknown) Prosthetic devices, grafts, tissues, transplants, or devices: (units unknown) (unknown) (unknown) (no date) (unknown) (unknown) Provider (units unknown) (unknown) (unknown) (no date) (unknown) (unknown) Provider: Raquel Romano P.A-C (units unknown) (unknown) (unknown) (no date) (unknown) (unknown) Pulse Oximetry 93 (units unknown) (unknown) (unknown) (no date) (unknown) (unknown) Pulse Rate 74 (units unknown) (unknown) (unknown) (no date) (unknown) (unknown) Quality (units unknown) (unknown) (unknown) (no date) (unknown) (unknown) RBC 3.08 L (units unknown) (unknown) (unknown) (no date) (unknown) (unknown) RDW 15.9 H (units unknown) (unknown) (unknown) (no date) (unknown) (unknown) Reason for consultation: Regional block for post operative pain control (units unknown) (unknown) (unknown) (no date) (unknown) (unknown) Respiratory Rate 10 L (units unknown) (unknown) (unknown) (no date) (unknown) (unknown) Revision left total hip arthroplasty, ORIF left greater trochanter (units unknown) (unknown) (unknown) (no date) (unknown) (unknown) Rx Instructions: (units unknown) (unknown) (unknown) (no date) (unknown) (unknown) Same procedure as scheduled: Yes (units unknown) (unknown) (unknown) (no date) (unknown) (unknown) Seasonal allergies (units unknown) (unknown) (unknown) (no date) (unknown) (unknown) Sensation to light touch intact throughout LLE. Calf soft and compressible. (units unknown) (unknown) (unknown) (no date) (unknown) (unknown) She should work to keep her foot midline and avoid hip flexion greater than 90?. (units unknown) (unknown) (unknown) (no date) (unknown) (unknown) Signed By: (units unknown) (unknown) (unknown) (no date) (unknown) (unknown) Mirian Redapt femur size 15 by 190 standard offset, Redapt acetabulum (units unknown) (unknown) (unknown) (no date) (unknown) (unknown) Smoking Status: Carmencita rubin smoker (units unknown) (unknown) (unknown) (no date) (unknown) (unknown) Social History (units unknown) (unknown) (unknown) (no date) (unknown) (unknown) Specimen(s): none sent (units unknown) (unknown) (unknown) (no date) (unknown) (unknown) Stand Alone Forms: Patient Portal/API (units unknown) (unknown) (unknown) (no date) (unknown) (unknown) Summary (units unknown) (unknown) (unknown) (no date) (unknown) (unknown) Surgeon: Annika River (units unknown) (unknown) (unknown) (no date) (unknown) (unknown) Surgical History (units unknown) (unknown) (unknown) (no date) (unknown) (unknown) Temperature 97.6 F (units unknown) (unknown) (unknown) (no date) (unknown) (unknown) This is a 72-year-ol d female has a history of a left hip total hip (units unknown) (unknown) (unknown) (no date) (unknown) (unknown) Time Patient Seen: 09:48 (units unknown) (unknown) (unknown) (no date) (unknown) (unknown) Time of procedure: 15:00 (units unknown) (unknown) (unknown) (no date) (unknown) (unknown) VTE prophylaxis. F/u in office in 2 weeks. (units unknown) (unknown) (unknown) (no date) (unknown) (unknown) VTE (units unknown) (unknown) (unknown) (no date) (unknown) (unknown) Very soft bone, adequate reduction of the greater trochanter fracture, (units unknown) (unknown) (unknown) (no date) (unknown) (unknown) Visit Report/Dischar ge Packet (units unknown) (unknown) (unknown) (no date) (unknown) (unknown) Vital Signs (units unknown) (unknown) (unknown) (no date) (unknown) (unknown) WBC 9.7 (units unknown) (unknown) (unknown) (no date) (unknown) (unknown) Will recheck H/H today. If stable and pain can be controlled on oral (units unknown) (unknown) (unknown) (no date) (unknown) (unknown) Maria Teresa Larsen PA-C [Primary Care Provider] (units unknown) (unknown) (unknown) (no date) (unknown) (unknown) [Embedded Image Not Available] (units unknown) (unknown) (unknown) (no date) (unknown) (unknown) acetaminophen 325 mg Tablet (units unknown) (unknown) (unknown) (no date) (unknown) (unknown) alcohol intake: current (units unknown) (unknown) (unknown) (no date) (unknown) (unknown) arthroplasty.? Unfortunately she has had problems with instability and has a (units unknown) (unknown) (unknown) (no date) (unknown) (unknown) aspirin 81 mg Tablet,Delayed Release (Dr/Ec) (units unknown) (unknown) (unknown) (no date) (unknown) (unknown) atorvastatin 20 mg Tablet (units unknown) (unknown) (unknown) (no date) (unknown) (unknown) because of this, she required SNF for further rehab prior to homegoing. She was (units unknown) (unknown) (unknown) (no date) (unknown) (unknown) cables, 22 x +4 Oxinium femoral head with dual mobility 22 x 36 mm insert, (units unknown) (unknown) (unknown) (no date) (unknown) (unknown) cetirizine [Zyrtec] 10 mg Tablet (units unknown) (unknown) (unknown) (no date) (unknown) (unknown) comminuted slightly displaced trochanteric fracture, adequate stability after (units unknown) (unknown) (unknown) (no date) (unknown) (unknown) docusate sodium 100 mg Capsule (units unknown) (unknown) (unknown) (no date) (unknown) (unknown) escitalopram oxalate 20 mg Tablet (units unknown) (unknown) (unknown) (no date) (unknown) (unknown) feeling better. She had significant weakness in the left leg on exam and global (units unknown) (unknown) (unknown) (no date) (unknown) (unknown) for anesthesia as we ll as potential medical problems was discussed in detail. (units unknown) (unknown) (unknown) (no date) (unknown) (unknown) her trochanter, additional problems requiring additional operations and risks (units unknown) (unknown) (unknown) (no date) (unknown) (unknown) hip precautions (anterior and posterior precautions) with full weight-bearing. (units unknown) (unknown) (unknown) (no date) (unknown) (unknown) hip precautions and required maximum assistance with transfers and mobility; (units unknown) (unknown) (unknown) (no date) (unknown) (unknown) household members: spouse (units unknown) (unknown) (unknown) (no date) (unknown) (unknown) hydroxyzine pamoate [Vistaril] 25 mg capsule (units unknown) (unknown) (unknown) (no date) (unknown) (unknown) ibuprofen 400 mg Tablet (units unknown) (unknown) (unknown) (no date) (unknown) (unknown) keep her foot midlin e and avoid hip flexion greater than 90?. ASA 81 mg BID for (units unknown) (unknown) (unknown) (no date) (unknown) (unknown) left hip greater trochanter fracture.? She is brought to the operating room for (units unknown) (unknown) (unknown) (no date) (unknown) (unknown) length inequality, persistent instability, infection, failure to unite or heal (units unknown) (unknown) (unknown) (no date) (unknown) (unknown) medication, will mg n on d/c to SNF tomorrow. Reinforce ELENA dressing. Global (units unknown) (unknown) (unknown) (no date) (unknown) (unknown) omeprazole-sodium bicarbonate [Zegerid] 20-1.1 mg-gram Capsule (units unknown) (unknown) (unknown) (no date) (unknown) (unknown) reconstruction (units unknown) (unknown) (unknown) (no date) (unknown) (unknown) responded appropriately to transfusion. On the morning of POD# 2, she was (units unknown) (unknown) (unknown) (no date) (unknown) (unknown) revision total hip arthroplasty and ORIF of her greater trochanter fracture.? (units unknown) (unknown) (unknown) (no date) (unknown) (unknown) s/p Revision left total hip arthroplasty, ORIF left greater trochanter (units unknown) (unknown) (unknown) (no date) (unknown) (unknown) significant postop anemia that required transfusion of 2 units PRBCs. Her H/H (units unknown) (unknown) (unknown) (no date) (unknown) (unknown) solifenacin [Vesicar e] 10 mg Tablet (units unknown) (unknown) (unknown) (no date) (unknown) (unknown) trochanter fracture (units unknown) (unknown) (unknown) (no date) (unknown) (unknown) voiding and eating without difficulty. (units unknown) (unknown) (unknown) (no date) (unknown) (unknown) weight-bearing. Avoi d hip abductor exercises because of trochanteric repair.? (units unknown) (unknown) Result panel [id number] (unknown) (no date) (unknown) (unknown) (no value) (units unknown) (unknown) (unknown) (no date) (unknown) (unknown) (anterior and posterior precautions) with full weight-bearing. Avoid hip (units unknown) (unknown) (unknown) (no date) (unknown) (unknown) (past 8 hours): (units unknown) (unknown) (unknown) (no date) (unknown) (unknown) 10/02/22 17:57 (units unknown) (unknown) (unknown) (no date) (unknown) (unknown) 10/02/22 19:13 (units unknown) (unknown) (unknown) (no date) (unknown) (unknown) 10/02/22 19:42 (units unknown) (unknown) (unknown) (no date) (unknown) (unknown) 10/04/22 10/05/22 (units unknown) (unknown) (unknown) (no date) (unknown) (unknown) 10/04/22 06:14 (units unknown) (unknown) (unknown) (no date) (unknown) (unknown) 10/04/22 21:42 (units unknown) (unknown) (unknown) (no date) (unknown) (unknown) 10/05/22 21:35 (units unknown) (unknown) (unknown) (no date) (unknown) (unknown) 10/06/22 1005 (units unknown) (unknown) (unknown) (no date) (unknown) (unknown) 10/06/22 (units unknown) (unknown) (unknown) (no date) (unknown) (unknown) 09:35 (units unknown) (unknown) (unknown) (no date) (unknown) (unknown) 0RF (units unknown) (unknown) (unknown) (no date) (unknown) (unknown) 1 - 2 tab PO BID (units unknown) (unknown) (unknown) (no date) (unknown) (unknown) 1 cap PO DAILY PRN (Reason: GI Upset) (units unknown) (unknown) (unknown) (no date) (unknown) (unknown) 10 mg PO DAILY PRN (Reason: Seasonal allergies) (units unknown) (unknown) (unknown) (no date) (unknown) (unknown) 10 mg PO DAILY (units unknown) (unknown) (unknown) (no date) (unknown) (unknown) 100 mg PO BID PRN (Reason: constipation) Qty: 30 0RF (units unknown) (unknown) (unknown) (no date) (unknown) (unknown) 17:22 21:35 (units unknown) (unknown) (unknown) (no date) (unknown) (unknown) 20 mg PO BEDTIME (units unknown) (unknown) (unknown) (no date) (unknown) (unknown) 20 mg PO DAILY (units unknown) (unknown) (unknown) (no date) (unknown) (unknown) 25 mg PO TID-QID PRN (Reason: itching) Qty: 60 0RF (units unknown) (unknown) (unknown) (no date) (unknown) (unknown) 3/5 strength in hip flexors, quadriceps, hamstrings, DF, EHL; 5/5 PF on left. (units unknown) (unknown) (unknown) (no date) (unknown) (unknown) 3151 (units unknown) (unknown) (unknown) (no date) (unknown) (unknown) 400 mg PO Q4H MDD Ma x 2400 mg per day PRN (Reason: Pain/inflammation) Qty: 90 (units unknown) (unknown) (unknown) (no date) (unknown) (unknown) 48 mm, 2 locking screws, 1 nonlocking screw, dual mobility liner, 2 cerclage (units unknown) (unknown) (unknown) (no date) (unknown) (unknown) 5 mg PO Q4-6H PRN (Reason: Pain, Moderate (4-6)) Qty: 60 0RF (units unknown) (unknown) (unknown) (no date) (unknown) (unknown) 650 mg PO Q6H MDD Ma x 3000 mg per day PRN (Reason: fever or pain) Qty: 90 0RF (units unknown) (unknown) (unknown) (no date) (unknown) (unknown) 81 mg PO BID 42 Days Qty: 84 0RF (units unknown) (unknown) (unknown) (no date) (unknown) (unknown) Activity: Weightbearing as tolerated to left leg with walker. Global hip (units unknown) (unknown) (unknown) (no date) (unknown) (unknown) After the batteries in 5-7 days, may cut off battery pack and dispose of (units unknown) (unknown) (unknown) (no date) (unknown) (unknown) Age/Sex: 72 / F (units unknown) (unknown) (unknown) (no date) (unknown) (unknown) Anesthesia Type: General and Spinal (units unknown) (unknown) (unknown) (no date) (unknown) (unknown) Antibody Screen Negative (units unknown) (unknown) (unknown) (no date) (unknown) (unknown) Assessment and Plan (units unknown) (unknown) (unknown) (no date) (unknown) (unknown) Assessment: (units unknown) (unknown) (unknown) (no date) (unknown) (unknown) [employer]: Kelley Springer (units unknown) (unknown) (unknown) (no date) (unknown) (unknown) Avoid hip abductor exercises because of trochanteric repair.? She should work to (units unknown) (unknown) (unknown) (no date) (unknown) (unknown) Baso # (Auto) 0 (units unknown) (unknown) (unknown) (no date) (unknown) (unknown) Baso % (Auto) 0.5 (units unknown) (unknown) (unknown) (no date) (unknown) (unknown) Blood Pressure 94/45 L (units unknown) (unknown) (unknown) (no date) (unknown) (unknown) Blood Type O Positive (units unknown) (unknown) (unknown) (no date) (unknown) (unknown) Chief complaint: L H ip Dislocation (units unknown) (unknown) (unknown) (no date) (unknown) (unknown) Closure Type: primary (units unknown) (unknown) (unknown) (no date) (unknown) (unknown) Comment: Posterior h ip precautions (units unknown) (unknown) (unknown) (no date) (unknown) (unknown) Comment: WBAT, avoid extreme positioning, no hip abductor s (units unknown) (unknown) (unknown) (no date) (unknown) (unknown) Comment: (units unknown) (unknown) (unknown) (no date) (unknown) (unknown) Consult to Anesthesiology Routine (units unknown) (unknown) (unknown) (no date) (unknown) (unknown) Consult to Discharge Planning Routine (units unknown) (unknown) (unknown) (no date) (unknown) (unknown) Consult to Occupational Therapy Evaluate + Treat (units unknown) (unknown) (unknown) (no date) (unknown) (unknown) Consult to Physical Therapy Evaluate + Treat (units unknown) (unknown) (unknown) (no date) (unknown) (unknown) Consulting Provider: Anesthesiologist (units unknown) (unknown) (unknown) (no date) (unknown) (unknown) Consults: (units unknown) (unknown) (unknown) (no date) (unknown) (unknown) Continued (units unknown) (unknown) (unknown) (no date) (unknown) (unknown) Crossmatch See Detail (units unknown) (unknown) (unknown) (no date) (unknown) (unknown) : 1950 Acct:[id number] (units unknown) (unknown) (unknown) (no date) (unknown) (unknown) Date Patient Seen: 10/06/22 (units unknown) (unknown) (unknown) (no date) (unknown) (unknown) Date of Service: 10/02/22 (units unknown) (unknown) (unknown) (no date) (unknown) (unknown) Date of admission: (units unknown) (unknown) (unknown) (no date) (unknown) (unknown) Date of procedure: 10/04/22 (units unknown) (unknown) (unknown) (no date) (unknown) (unknown) Deep Vein Thrombosis/Pulmonary Embolism Present on Admission: No (units unknown) (unknown) (unknown) (no date) (unknown) (unknown) Depression (units unknown) (unknown) (unknown) (no date) (unknown) (unknown) Diet/Activity/Treatm en ts (units unknown) (unknown) (unknown) (no date) (unknown) (unknown) Diet: Diet as Tolerated (units unknown) (unknown) (unknown) (no date) (unknown) (unknown) Discharge Assessment + Plan (units unknown) (unknown) (unknown) (no date) (unknown) (unknown) Discharge Data (units unknown) (unknown) (unknown) (no date) (unknown) (unknown) Discharge Date: 10/07/22 (units unknown) (unknown) (unknown) (no date) (unknown) (unknown) Discharge Diagnosis: (units unknown) (unknown) (unknown) (no date) (unknown) (unknown) Discharge Plan (units unknown) (unknown) (unknown) (no date) (unknown) (unknown) Discharge Providers (units unknown) (unknown) (unknown) (no date) (unknown) (unknown) Discharge Summary (units unknown) (unknown) (unknown) (no date) (unknown) (unknown) Discharge orders + Medications (units unknown) (unknown) (unknown) (no date) (unknown) (unknown) Discharge provider: (units unknown) (unknown) (unknown) (no date) (unknown) (unknown) Diverticulitis (units unknown) (unknown) (unknown) (no date) (unknown) (unknown) Dressing: May shower . Leave ELENA dressing in place until follow up in office. (units unknown) (unknown) (unknown) (no date) (unknown) (unknown) Eos # (Auto) 0 (units unknown) (unknown) (unknown) (no date) (unknown) (unknown) Eos % (Auto) 0.5 L (units unknown) (unknown) (unknown) (no date) (unknown) (unknown) Estimated Blood Loss (mL): 300 (units unknown) (unknown) (unknown) (no date) (unknown) (unknown) Exam Narrative: (units unknown) (unknown) (unknown) (no date) (unknown) (unknown) Exam (units unknown) (unknown) (unknown) (no date) (unknown) (unknown) Excedrin Extra Strength 250-250-65 mg Tablet (units unknown) (unknown) (unknown) (no date) (unknown) (unknown) Findings: (units unknown) (unknown) (unknown) (no date) (unknown) (unknown) Follow up/Referrals: (units unknown) (unknown) (unknown) (no date) (unknown) (unknown) GERD (gastroesophage al reflux disease) (units unknown) (unknown) (unknown) (no date) (unknown) (unknown) HLD (hyperlipidemia) (units unknown) (unknown) (unknown) (no date) (unknown) (unknown) Hct 26.1 L (units unknown) (unknown) (unknown) (no date) (unknown) (unknown) Hearing impaired (units unknown) (unknown) (unknown) (no date) (unknown) (unknown) Hgb 8.8 L (units unknown) (unknown) (unknown) (no date) (unknown) (unknown) History of Present Illness (units unknown) (unknown) (unknown) (no date) (unknown) (unknown) History of bladder surgery (units unknown) (unknown) (unknown) (no date) (unknown) (unknown) History of total lef t knee replacement (units unknown) (unknown) (unknown) (no date) (unknown) (unknown) History of total rig ht knee replacement (units unknown) (unknown) (unknown) (no date) (unknown) (unknown) Hospital Course (units unknown) (unknown) (unknown) (no date) (unknown) (unknown) Hospital Course: (units unknown) (unknown) (unknown) (no date) (unknown) (unknown) Hx of left breast biopsy (units unknown) (unknown) (unknown) (no date) (unknown) (unknown) Hx of right breast biopsy (units unknown) (unknown) (unknown) (no date) (unknown) (unknown) Hx of tonsillectomy (units unknown) (unknown) (unknown) (no date) (unknown) (unknown) Indications: (units unknown) (unknown) (unknown) (no date) (unknown) (unknown) Instructions: DI for Hip Replacement, DI for Prescription Opioid Use (units unknown) (unknown) (unknown) (no date) (unknown) (unknown) [address] [address] (units unknown) (unknown) (unknown) (no date) (unknown) (unknown) Raquel Romano PA-C (units unknown) (unknown) (unknown) (no date) (unknown) (unknown) Maria Teresa Larsen PA-C (units unknown) (unknown) (unknown) (no date) (unknown) (unknown) Laboratory Results - last 24 hr (units unknown) (unknown) (unknown) (no date) (unknown) (unknown) Labs (units unknown) (unknown) (unknown) (no date) (unknown) (unknown) Labs: (units unknown) (unknown) (unknown) (no date) (unknown) (unknown) Left total hip arthroplasty with instability, left greater trochanter fracture, (units unknown) (unknown) (unknown) (no date) (unknown) (unknown) Lymph # (Auto) 2100 (units unknown) (unknown) (unknown) (no date) (unknown) (unknown) Lymph % (Auto) 21.3 L (units unknown) (unknown) (unknown) (no date) (unknown) (unknown) MCH 28.7 (units unknown) (unknown) (unknown) (no date) (unknown) (unknown) MCHC 33.8 (units unknown) (unknown) (unknown) (no date) (unknown) (unknown) MCV 84.9 D (units unknown) (unknown) (unknown) (no date) (unknown) (unknown) May have 1-2 tabs every 4-6 hrs as needed (units unknown) (unknown) (unknown) (no date) (unknown) (unknown) Medical History (units unknown) (unknown) (unknown) (no date) (unknown) (unknown) [place] # (Auto) 700 (units unknown) (unknown) (unknown) (no date) (unknown) (unknown) [place] % (Auto) 7.6 (units unknown) (unknown) (unknown) (no date) (unknown) (unknown) Ms Garcia's hospital course was remarkable for difficulty with pain control and (units unknown) (unknown) (unknown) (no date) (unknown) (unknown) Narrative (units unknown) (unknown) (unknown) (no date) (unknown) (unknown) Narrative: (units unknown) (unknown) (unknown) (no date) (unknown) (unknown) Neut # (Auto) 6800 (units unknown) (unknown) (unknown) (no date) (unknown) (unknown) Neut % (Auto) 70.1 (units unknown) (unknown) (unknown) (no date) (unknown) (unknown) New (units unknown) (unknown) (unknown) (no date) (unknown) (unknown) [facility] to schedule appt w/ Dr River in 2 weeks for wound check (units unknown) (unknown) (unknown) (no date) (unknown) (unknown) Objective (units unknown) (unknown) (unknown) (no date) (unknown) (unknown) Operative Date/Time/Diagnoses (units unknown) (unknown) (unknown) (no date) (unknown) (unknown) Operative Notes (units unknown) (unknown) (unknown) (no date) (unknown) (unknown) Options risks benefi ts and complications including but not limited to, leg (units unknown) (unknown) (unknown) (no date) (unknown) (unknown) Osteoarthritis (units unknown) (unknown) (unknown) (no date) (unknown) (unknown) Oxygen Delivery Meth od Room Air (units unknown) (unknown) (unknown) (no date) (unknown) (unknown) Oxygen Flow Rate 0 (units unknown) (unknown) (unknown) (no date) (unknown) (unknown) PFSH (units unknown) (unknown) (unknown) (no date) (unknown) (unknown) ELENA dressing CDI, n ot functioning d/t inadequate seal. (units unknown) (unknown) (unknown) (no date) (unknown) (unknown) Patient Disposition: SNF (units unknown) (unknown) (unknown) (no date) (unknown) (unknown) Patient: Barbara Garcia MR#: [id number] (units unknown) (unknown) (unknown) (no date) (unknown) (unknown) Physician Instructions: Evaluate and Treat (units unknown) (unknown) (unknown) (no date) (unknown) (unknown) Physician Instructions: Evaluate and treat (units unknown) (unknown) (unknown) (no date) (unknown) (unknown) Physician Instructions: post op SARA protocol (units unknown) (unknown) (unknown) (no date) (unknown) (unknown) Plan of Treatment: (units unknown) (unknown) (unknown) (no date) (unknown) (unknown) Plt Count 284 (units unknown) (unknown) (unknown) (no date) (unknown) (unknown) Post-op diagnosis: same (units unknown) (unknown) (unknown) (no date) (unknown) (unknown) 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, left greater (units unknown) (unknown) (unknown) (no date) (unknown) (unknown) Prescriptions: (units unknown) (unknown) (unknown) (no date) (unknown) (unknown) Prevent blood clots (units unknown) (unknown) (unknown) (no date) (unknown) (unknown) Primary Care Provide r: Maria Teresa Larsen (units unknown) (unknown) (unknown) (no date) (unknown) (unknown) Primary care physician: (units unknown) (unknown) (unknown) (no date) (unknown) (unknown) Procedure + Clinicians (units unknown) (unknown) (unknown) (no date) (unknown) (unknown) Procedure: (units unknown) (unknown) (unknown) (no date) (unknown) (unknown) Prosthetic devices, grafts, tissues, transplants, or devices: (units unknown) (unknown) (unknown) (no date) (unknown) (unknown) Provider (units unknown) (unknown) (unknown) (no date) (unknown) (unknown) Provider: Raquel Romano P.A-C (units unknown) (unknown) (unknown) (no date) (unknown) (unknown) Pulse Oximetry 93 (units unknown) (unknown) (unknown) (no date) (unknown) (unknown) Pulse Rate 74 (units unknown) (unknown) (unknown) (no date) (unknown) (unknown) Quality (units unknown) (unknown) (unknown) (no date) (unknown) (unknown) RBC 3.08 L (units unknown) (unknown) (unknown) (no date) (unknown) (unknown) RDW 15.9 H (units unknown) (unknown) (unknown) (no date) (unknown) (unknown) Reason for consultation: Regional block for post operative pain control (units unknown) (unknown) (unknown) (no date) (unknown) (unknown) Reason for rehabilitation: Post-operative therapy (units unknown) (unknown) (unknown) (no date) (unknown) (unknown) Rehab type: Physical therapy and Occupational therapy (units unknown) (unknown) (unknown) (no date) (unknown) (unknown) Report to your healthcare provider any signs of infection, such as:: chills, (units unknown) (unknown) (unknown) (no date) (unknown) (unknown) Respiratory Rate 10 L (units unknown) (unknown) (unknown) (no date) (unknown) (unknown) Restrictions to mobility: See above. (units unknown) (unknown) (unknown) (no date) (unknown) (unknown) Revision left total hip arthroplasty, ORIF left greater trochanter (units unknown) (unknown) (unknown) (no date) (unknown) (unknown) Rx Instructions: (units unknown) (unknown) (unknown) (no date) (unknown) (unknown) Same procedure as scheduled: Yes (units unknown) (unknown) (unknown) (no date) (unknown) (unknown) Seasonal allergies (units unknown) (unknown) (unknown) (no date) (unknown) (unknown) Sensation to light touch intact throughout LLE. Calf soft and compressible. (units unknown) (unknown) (unknown) (no date) (unknown) (unknown) Signed By:<Electronically signed by Raquel Romano> (units unknown) (unknown) (unknown) (no date) (unknown) (unknown) Skin/Wound/Dressing Care (units unknown) (unknown) (unknown) (no date) (unknown) (unknown) [place] Redapt femur size 15 by 190 standard offset, Redapt acetabulum (units unknown) (unknown) (unknown) (no date) (unknown) (unknown) Annika River MD [Physician] - 2 Weeks (Please call [facility] (units unknown) (unknown) (unknown) (no date) (unknown) (unknown) Smoking Status: Carmencita r smoker (units unknown) (unknown) (unknown) (no date) (unknown) (unknown) Social History (units unknown) (unknown) (unknown) (no date) (unknown) (unknown) Special Rehabilitati on Services (units unknown) (unknown) (unknown) (no date) (unknown) (unknown) Specimen(s): none sent (units unknown) (unknown) (unknown) (no date) (unknown) (unknown) Stand Alone Forms: Patient Portal/API, Surgery Discharge (units unknown) (unknown) (unknown) (no date) (unknown) (unknown) Summary (units unknown) (unknown) (unknown) (no date) (unknown) (unknown) Surgeon: Annika River (units unknown) (unknown) (unknown) (no date) (unknown) (unknown) Surgical History (units unknown) (unknown) (unknown) (no date) (unknown) (unknown) Temperature 97.6 F (units unknown) (unknown) (unknown) (no date) (unknown) (unknown) This is a 72-year-ol d female has a history of a left hip total hip (units unknown) (unknown) (unknown) (no date) (unknown) (unknown) Time Patient Seen: 09:48 (units unknown) (unknown) (unknown) (no date) (unknown) (unknown) Time of procedure: 15:00 (units unknown) (unknown) (unknown) (no date) (unknown) (unknown) VTE (units unknown) (unknown) (unknown) (no date) (unknown) (unknown) Very soft bone, adequate reduction of the greater trochanter fracture, (units unknown) (unknown) (unknown) (no date) (unknown) (unknown) Visit Report/Dischar ge Packet (units unknown) (unknown) (unknown) (no date) (unknown) (unknown) Vital Signs (units unknown) (unknown) (unknown) (no date) (unknown) (unknown) WBC 9.7 (units unknown) (unknown) (unknown) (no date) (unknown) (unknown) Weightbearing as tolerated to left leg with walker. Global hip precautions (units unknown) (unknown) (unknown) (no date) (unknown) (unknown) Will recheck H/H today. If stable and pain can be controlled on oral (units unknown) (unknown) (unknown) (no date) (unknown) (unknown) Maria Teresa Larsen PA-C [Primary Care Provider] (units unknown) (unknown) (unknown) (no date) (unknown) (unknown) [Embedded Image Not Available] (units unknown) (unknown) (unknown) (no date) (unknown) (unknown) abductor exercises because of trochanteric repair.? She should work to keep her (units unknown) (unknown) (unknown) (no date) (unknown) (unknown) acetaminophen 325 mg Tablet (units unknown) (unknown) (unknown) (no date) (unknown) (unknown) alcohol intake: current (units unknown) (unknown) (unknown) (no date) (unknown) (unknown) and repeat xrays.) (units unknown) (unknown) (unknown) (no date) (unknown) (unknown) arthroplasty.? Unfortunately she has had problems with instability and has a (units unknown) (unknown) (unknown) (no date) (unknown) (unknown) aspirin 81 mg Tablet,Delayed Release (Dr/Ec) (units unknown) (unknown) (unknown) (no date) (unknown) (unknown) atorvastatin 20 mg Tablet (units unknown) (unknown) (unknown) (no date) (unknown) (unknown) because of this, she required SNF for further rehab prior to homegoing. She was (units unknown) (unknown) (unknown) (no date) (unknown) (unknown) becomes saturated inside. (units unknown) (unknown) (unknown) (no date) (unknown) (unknown) cables, 22 x +4 Oxinium femoral head with dual mobility 22 x 36 mm insert, (units unknown) (unknown) (unknown) (no date) (unknown) (unknown) cetirizine [Zyrtec] 10 mg Tablet (units unknown) (unknown) (unknown) (no date) (unknown) (unknown) comminuted slightly displaced trochanteric fracture, adequate stability after (units unknown) (unknown) (unknown) (no date) (unknown) (unknown) docusate sodium 100 mg Capsule (units unknown) (unknown) (unknown) (no date) (unknown) (unknown) escitalopram oxalate 20 mg Tablet (units unknown) (unknown) (unknown) (no date) (unknown) (unknown) feeling better. She had significant weakness in the left leg on exam and global (units unknown) (unknown) (unknown) (no date) (unknown) (unknown) fever, night sweats, unusual drainage and unusual redness (units unknown) (unknown) (unknown) (no date) (unknown) (unknown) foot midline and sayra id hip flexion greater than 90?. ASA 81 mg BID for VTE (units unknown) (unknown) (unknown) (no date) (unknown) (unknown) for anesthesia as we ll as potential medical problems was discussed in detail. (units unknown) (unknown) (unknown) (no date) (unknown) (unknown) her trochanter, additional problems requiring additional operations and risks (units unknown) (unknown) (unknown) (no date) (unknown) (unknown) hip precautions and required maximum assistance with transfers and mobility; (units unknown) (unknown) (unknown) (no date) (unknown) (unknown) household members: spouse (units unknown) (unknown) (unknown) (no date) (unknown) (unknown) hydroxyzine pamoate [Vistaril] 25 mg capsule (units unknown) (unknown) (unknown) (no date) (unknown) (unknown) ibuprofen 400 mg Tablet (units unknown) (unknown) (unknown) (no date) (unknown) (unknown) it. No bathing or otherwise soaking incision. Call the office if the dressing (units unknown) (unknown) (unknown) (no date) (unknown) (unknown) keep her foot midlin e and avoid hip flexion greater than 90?. (units unknown) (unknown) (unknown) (no date) (unknown) (unknown) left hip greater trochanter fracture.? She is brought to the operating room for (units unknown) (unknown) (unknown) (no date) (unknown) (unknown) length inequality, persistent instability, infection, failure to unite or heal (units unknown) (unknown) (unknown) (no date) (unknown) (unknown) medication, will mg n on d/c to SNF tomorrow. Reinforce ELENA dressing. (units unknown) (unknown) (unknown) (no date) (unknown) (unknown) omeprazole-sodium bicarbonate [Zegerid] 20-1.1 mg-gram Capsule (units unknown) (unknown) (unknown) (no date) (unknown) (unknown) oxycodone 5 mg Tablet (units unknown) (unknown) (unknown) (no date) (unknown) (unknown) precautions (anterio r and posterior precautions) with full weight-bearing. (units unknown) (unknown) (unknown) (no date) (unknown) (unknown) prophylaxis. F/u in office in 2 weeks. (units unknown) (unknown) (unknown) (no date) (unknown) (unknown) reconstruction (units unknown) (unknown) (unknown) (no date) (unknown) (unknown) responded appropriately to transfusion. On the morning of POD# 2, she was (units unknown) (unknown) (unknown) (no date) (unknown) (unknown) revision total hip arthroplasty and ORIF of her greater trochanter fracture.? (units unknown) (unknown) (unknown) (no date) (unknown) (unknown) s/p Revision left total hip arthroplasty, ORIF left greater trochanter (units unknown) (unknown) (unknown) (no date) (unknown) (unknown) significant postop anemia that required transfusion of 2 units PRBCs. Her H/H (units unknown) (unknown) (unknown) (no date) (unknown) (unknown) solifenacin [Vesicar e] 10 mg Tablet (units unknown) (unknown) (unknown) (no date) (unknown) (unknown) trochanter fracture (units unknown) (unknown) (unknown) (no date) (unknown) (unknown) voiding and eating without difficulty. (units unknown) (unknown) Result panel 1367 (unknown) (no date) (unknown) (unknown) (no value) (units unknown) (unknown) (unknown) (no date) (unknown) (unknown) No growth. (units unknown) (unknown) (unknown) (no date) (unknown) (unknown) No organisms seen (units unknown) (unknown) (unknown) (no date) (unknown) (unknown) No organisms seen (units unknown) (unknown) (unknown) (no date) (unknown) (unknown) Occasional WBC seen (units unknown) (unknown) Result panel 1368 (unknown) (no date) (unknown) (unknown) 23.5 % (unknown) (unknown) (no date) (unknown) (unknown) 7.8 g/dl (unknown) Result panel 1369 (unknown) (no date) (unknown) (unknown) (no value) (units unknown) (unknown) (unknown) (no date) (unknown) (unknown) No growth. (units unknown) (unknown) (unknown) (no date) (unknown) (unknown) No organisms seen (units unknown) (unknown) (unknown) (no date) (unknown) (unknown) No organisms seen (units unknown) (unknown) (unknown) (no date) (unknown) (unknown) Occasional WBC seen (units unknown) (unknown) Result panel 1370 (unknown) (no date) (unknown) (unknown) (no value) (units unknown) (unknown) (unknown) (no date) (unknown) (unknown) (past 8 hours): (units unknown) (unknown) (unknown) (no date) (unknown) (unknown) 10/02/22 17:57 (units unknown) (unknown) (unknown) (no date) (unknown) (unknown) 10/06/22 10:30 (units unknown) (unknown) (unknown) (no date) (unknown) (unknown) 10/06/22 (units unknown) (unknown) (unknown) (no date) (unknown) (unknown) 10/07/22 0917 (units unknown) (unknown) (unknown) (no date) (unknown) (unknown) 10/07/22 (units unknown) (unknown) (unknown) (no date) (unknown) (unknown) 04:49 (units unknown) (unknown) (unknown) (no date) (unknown) (unknown) 10:30 (units unknown) (unknown) (unknown) (no date) (unknown) (unknown) 3151 (units unknown) (unknown) (unknown) (no date) (unknown) (unknown) Actual Procedure [place] e Surgeon (units unknown) (unknown) (unknown) (no date) (unknown) (unknown) Age/Sex: 72 / F (units unknown) (unknown) (unknown) (no date) (unknown) (unknown) Assessment + Plan Post-op (units unknown) (unknown) (unknown) (no date) (unknown) (unknown) Blood Pressure 127/4 5 L (units unknown) (unknown) (unknown) (no date) (unknown) (unknown) : 1950 Acct:[id number] (units unknown) (unknown) (unknown) (no date) (unknown) (unknown) Date of Service: 10/02/22 (units unknown) (unknown) (unknown) (no date) (unknown) (unknown) Deep Vein Thrombosis/Pulmonary Embolism Present on Admission: No (units unknown) (unknown) (unknown) (no date) (unknown) (unknown) Depression (units unknown) (unknown) (unknown) (no date) (unknown) (unknown) Diverticulitis (units unknown) (unknown) (unknown) (no date) (unknown) (unknown) Dressing is intact. Calf is soft. Light touch and motion are intact in the (units unknown) (unknown) (unknown) (no date) (unknown) (unknown) Exam Narrative: (units unknown) (unknown) (unknown) (no date) (unknown) (unknown) Exam (units unknown) (unknown) (unknown) (no date) (unknown) (unknown) GERD (gastroesophage al reflux disease) (units unknown) (unknown) (unknown) (no date) (unknown) (unknown) HLD (hyperlipidemia) (units unknown) (unknown) (unknown) (no date) (unknown) (unknown) Hct 23.5 L (units unknown) (unknown) (unknown) (no date) (unknown) (unknown) Hearing impaired (units unknown) (unknown) (unknown) (no date) (unknown) (unknown) Hgb 7.8 L (units unknown) (unknown) (unknown) (no date) (unknown) (unknown) History of bladder surgery (units unknown) (unknown) (unknown) (no date) (unknown) (unknown) History of total lef t knee replacement (units unknown) (unknown) (unknown) (no date) (unknown) (unknown) History of total rig ht knee replacement (units unknown) (unknown) (unknown) (no date) (unknown) (unknown) Hx of left breast biopsy (units unknown) (unknown) (unknown) (no date) (unknown) (unknown) Hx of right breast biopsy (units unknown) (unknown) (unknown) (no date) (unknown) (unknown) Hx of tonsillectomy (units unknown) (unknown) (unknown) (no date) (unknown) (unknown) Interval history: (units unknown) (unknown) (unknown) (no date) (unknown) (unknown) [address] [address] (units unknown) (unknown) (unknown) (no date) (unknown) (unknown) Laboratory Results - last 24 hr (units unknown) (unknown) (unknown) (no date) (unknown) (unknown) Labs (units unknown) (unknown) (unknown) (no date) (unknown) (unknown) Labs: (units unknown) (unknown) (unknown) (no date) (unknown) (unknown) Medical History (units unknown) (unknown) (unknown) (no date) (unknown) (unknown) Narrative (units unknown) (unknown) (unknown) (no date) (unknown) (unknown) Objective (units unknown) (unknown) (unknown) (no date) (unknown) (unknown) Operation Date: 10/02/22 20:00 (units unknown) (unknown) (unknown) (no date) (unknown) (unknown) Operation Date: 10/04/22 13:45 (units unknown) (unknown) (unknown) (no date) (unknown) (unknown) Osteoarthritis (units unknown) (unknown) (unknown) (no date) (unknown) (unknown) Oxygen Delivery Meth od Room Air (units unknown) (unknown) (unknown) (no date) (unknown) (unknown) Oxygen Flow Rate 0 (units unknown) (unknown) (unknown) (no date) (unknown) (unknown) PFSH (units unknown) (unknown) (unknown) (no date) (unknown) (unknown) Patient: Barbara Garcia MR#: [id number] (units unknown) (unknown) (unknown) (no date) (unknown) (unknown) Postoperative day: 3 (units unknown) (unknown) (unknown) (no date) (unknown) (unknown) Postoperative plan narrative: Physical therapy today. Provided she makes a (units unknown) (unknown) (unknown) (no date) (unknown) (unknown) Postoperative plan: routine post-op care, ambulate and discharge (Likely to home (units unknown) (unknown) (unknown) (no date) (unknown) (unknown) Postoperative status narrative: She is improving postoperative day 3 from her (units unknown) (unknown) (unknown) (no date) (unknown) (unknown) Postoperative status : doing well (units unknown) (unknown) (unknown) (no date) (unknown) (unknown) Postoperative (units unknown) (unknown) (unknown) (no date) (unknown) (unknown) Procedures (units unknown) (unknown) (unknown) (no date) (unknown) (unknown) Procedures: (units unknown) (unknown) (unknown) (no date) (unknown) (unknown) Progress Note (units unknown) (unknown) (unknown) (no date) (unknown) (unknown) Provider: Scott Anna MD (units unknown) (unknown) (unknown) (no date) (unknown) (unknown) Pulse Oximetry 94 (units unknown) (unknown) (unknown) (no date) (unknown) (unknown) Pulse Rate 68 (units unknown) (unknown) (unknown) (no date) (unknown) (unknown) Quality (units unknown) (unknown) (unknown) (no date) (unknown) (unknown) Respiratory Rate 17 (units unknown) (unknown) (unknown) (no date) (unknown) (unknown) Seasonal allergies (units unknown) (unknown) (unknown) (no date) (unknown) (unknown) Signed By:<Electronically signed by Scott Anna MD> (units unknown) (unknown) (unknown) (no date) (unknown) (unknown) Smoking Status: Carmencita rubin smoker (units unknown) (unknown) (unknown) (no date) (unknown) (unknown) Social History (units unknown) (unknown) (unknown) (no date) (unknown) (unknown) Subjective (units unknown) (unknown) (unknown) (no date) (unknown) (unknown) Surgical History (units unknown) (unknown) (unknown) (no date) (unknown) (unknown) Temperature 97.8 F (units unknown) (unknown) (unknown) (no date) (unknown) (unknown) The patient reports that she began to make progress with physical therapy (units unknown) (unknown) (unknown) (no date) (unknown) (unknown) Time Spent With Patient (units unknown) (unknown) (unknown) (no date) (unknown) (unknown) Time with patient: less than 15 minutes (units unknown) (unknown) (unknown) (no date) (unknown) (unknown) VTE (units unknown) (unknown) (unknown) (no date) (unknown) (unknown) Vital Signs (units unknown) (unknown) (unknown) (no date) (unknown) (unknown) [Embedded Image Not Available] (units unknown) (unknown) (unknown) (no date) (unknown) (unknown) alcohol intake: current (units unknown) (unknown) (unknown) (no date) (unknown) (unknown) ambulate to the [facility] for the 2nd visit yesterday. (units unknown) (unknown) (unknown) (no date) (unknown) (unknown) based on her progres s yesterday that if she has 1 more day of physical therapy (units unknown) (unknown) (unknown) (no date) (unknown) (unknown) fracture by Dr. Villanueva h and postop day 5 from a closed reduction of a dislocated (units unknown) (unknown) (unknown) (no date) (unknown) (unknown) household members: spouse (units unknown) (unknown) (unknown) (no date) (unknown) (unknown) in the hospital she should be able to go home with home health tomorrow. (units unknown) (unknown) (unknown) (no date) (unknown) (unknown) left hip revision wi open reduction internal fixation of a trochanteric (units unknown) (unknown) (unknown) (no date) (unknown) (unknown) left lower extremity . Leg length and rotation appear appropriate. (units unknown) (unknown) (unknown) (no date) (unknown) (unknown) little progress, she should be ready for discharge home with home health (units unknown) (unknown) (unknown) (no date) (unknown) (unknown) nursing facility stay. (units unknown) (unknown) (unknown) (no date) (unknown) (unknown) p Closed Reduction Dislocated Hip Jorge Aviles MD (units unknown) (unknown) (unknown) (no date) (unknown) (unknown) p Total Hip Arthroplasty Revision Left Annika River MD (units unknown) (unknown) (unknown) (no date) (unknown) (unknown) long term facility or home with home health physical therapy. It appears (units unknown) (unknown) (unknown) (no date) (unknown) (unknown) tomorrow with home health) (units unknown) (unknown) (unknown) (no date) (unknown) (unknown) tomorrow. This would be considerably less expensive and preferable to a skilled (units unknown) (unknown) (unknown) (no date) (unknown) (unknown) total hip performed by Dr. Aviles. Disposition has been planned for either (units unknown) (unknown) (unknown) (no date) (unknown) (unknown) yesterday. She was able to stand at the bedside for the 1st visit and to (units unknown) (unknown) Result panel 1371 (unknown) (no date) (unknown) (unknown) (no value) (units unknown) (unknown) (unknown) (no date) (unknown) (unknown) No growth. (units unknown) (unknown) (unknown) (no date) (unknown) (unknown) No organisms seen (units unknown) (unknown) (unknown) (no date) (unknown) (unknown) No organisms seen (units unknown) (unknown) (unknown) (no date) (unknown) (unknown) Occasional WBC seen (units unknown) (unknown) Result panel 1372 (unknown) (no date) (unknown) (unknown) NEGATIVE (units unknown) (unknown) (unknown) (no date) (unknown) (unknown) O Positive (units unknown) (unknown) (unknown) (no date) (unknown) (unknown) O Positive (units unknown) (unknown) (unknown) (no date) (unknown) (unknown) TRANSFUSED PRODUCT: Packed Cells COUNT: 2 (units unknown) (unknown) Result panel 1373 (unknown) (no date) (unknown) (unknown) TRANSFUSED PRODUCT: Packed Cells COUNT: 2 (units unknown) (unknown) Result panel 1374 (unknown) (no date) (unknown) (unknown) 0 /ul (unknown) (unknown) (no date) (unknown) (unknown) 0.8 % (unknown) (unknown) (no date) (unknown) (unknown) 16.3 % (unknown) (unknown) (no date) (unknown) (unknown) 1600 /ul (unknown) (unknown) (no date) (unknown) (unknown) 17.1 % (unknown) (unknown) (no date) (unknown) (unknown) 2.68 x10 6/ul (unknown) (unknown) (no date) (unknown) (unknown) 22.8 % (unknown) (unknown) (no date) (unknown) (unknown) 2500 /ul (unknown) (unknown) (no date) (unknown) (unknown) 259 x10 3/ul (unknown) (unknown) (no date) (unknown) (unknown) 28.5 % (unknown) (unknown) (no date) (unknown) (unknown) 28.6 pg (unknown) (unknown) (no date) (unknown) (unknown) 33.6 % (unknown) (unknown) (no date) (unknown) (unknown) 400 /ul (unknown) (unknown) (no date) (unknown) (unknown) 46.2 % (unknown) (unknown) (no date) (unknown) (unknown) 5.5 x10 3/ul (unknown) (unknown) (no date) (unknown) (unknown) 7.4 % (unknown) (unknown) (no date) (unknown) (unknown) 7.7 g/dl (unknown) (unknown) (no date) (unknown) (unknown) 84.9 fl (unknown) (unknown) (no date) (unknown) (unknown) 900 /ul (unknown) Result panel 1375 (unknown) (no date) (unknown) (unknown) (no value) (units unknown) (unknown) (unknown) (no date) (unknown) (unknown) (anterior and posterior precautions) with full weight-bearing. Avoid hip (units unknown) (unknown) (unknown) (no date) (unknown) (unknown) (past 8 hours): (units unknown) (unknown) (unknown) (no date) (unknown) (unknown) 10/02/22 17:57 (units unknown) (unknown) (unknown) (no date) (unknown) (unknown) 10/02/22 19:13 (units unknown) (unknown) (unknown) (no date) (unknown) (unknown) 10/02/22 19:42 (units unknown) (unknown) (unknown) (no date) (unknown) (unknown) 10/04/22 06:14 (units unknown) (unknown) (unknown) (no date) (unknown) (unknown) 10/04/22 21:42 (units unknown) (unknown) (unknown) (no date) (unknown) (unknown) 10/08/22 06:11 (units unknown) (unknown) (unknown) (no date) (unknown) (unknown) 10/08/22 (units unknown) (unknown) (unknown) (no date) (unknown) (unknown) 06:11 (units unknown) (unknown) (unknown) (no date) (unknown) (unknown) 0RF (units unknown) (unknown) (unknown) (no date) (unknown) (unknown) 1 - 2 tab PO BID (units unknown) (unknown) (unknown) (no date) (unknown) (unknown) 1 cap PO DAILY PRN (Reason: GI Upset) (units unknown) (unknown) (unknown) (no date) (unknown) (unknown) 10 mg PO DAILY PRN (Reason: Seasonal allergies) (units unknown) (unknown) (unknown) (no date) (unknown) (unknown) 10 mg PO DAILY (units unknown) (unknown) (unknown) (no date) (unknown) (unknown) 100 mg PO BID PRN (Reason: constipation) Qty: 30 0RF (units unknown) (unknown) (unknown) (no date) (unknown) (unknown) 20 mg PO BEDTIME (units unknown) (unknown) (unknown) (no date) (unknown) (unknown) 20 mg PO DAILY (units unknown) (unknown) (unknown) (no date) (unknown) (unknown) 25 mg PO TID-QID PRN (Reason: itching) Qty: 60 0RF (units unknown) (unknown) (unknown) (no date) (unknown) (unknown) 3151 (units unknown) (unknown) (unknown) (no date) (unknown) (unknown) 400 mg PO Q4H MDD Ma x 2400 mg per day PRN (Reason: Pain/inflammation) Qty: 90 (units unknown) (unknown) (unknown) (no date) (unknown) (unknown) 48 mm, 2 locking screws, 1 nonlocking screw, dual mobility liner, 2 cerclage (units unknown) (unknown) (unknown) (no date) (unknown) (unknown) 5 mg PO Q4-6H PRN (Reason: Pain, Moderate (4-6)) Qty: 60 0RF (units unknown) (unknown) (unknown) (no date) (unknown) (unknown) 650 mg PO Q6H MDD Ma x 3000 mg per day PRN (Reason: fever or pain) Qty: 90 0RF (units unknown) (unknown) (unknown) (no date) (unknown) (unknown) 81 mg PO BID 42 Days Qty: 84 0RF (units unknown) (unknown) (unknown) (no date) (unknown) (unknown) Activity: Weightbearing as tolerated to left leg with walker. Global hip (units unknown) (unknown) (unknown) (no date) (unknown) (unknown) After the batteries in 5-7 days, may cut off battery pack and dispose of (units unknown) (unknown) (unknown) (no date) (unknown) (unknown) Age/Sex: 72 / F (units unknown) (unknown) (unknown) (no date) (unknown) (unknown) Anesthesia Type: General and Spinal (units unknown) (unknown) (unknown) (no date) (unknown) (unknown) Assessment and Plan (units unknown) (unknown) (unknown) (no date) (unknown) (unknown) Assessment: (units unknown) (unknown) (unknown) (no date) (unknown) (unknown) [employer]: Kelley Springer (units unknown) (unknown) (unknown) (no date) (unknown) (unknown) Avoid hip abductor exercises because of trochanteric repair.? She should work to (units unknown) (unknown) (unknown) (no date) (unknown) (unknown) Baso # (Auto) 0 (units unknown) (unknown) (unknown) (no date) (unknown) (unknown) Baso % (Auto) 0.8 (units unknown) (unknown) (unknown) (no date) (unknown) (unknown) Blood products transfused: none (units unknown) (unknown) (unknown) (no date) (unknown) (unknown) Chief complaint: L H ip Dislocation (units unknown) (unknown) (unknown) (no date) (unknown) (unknown) Closure Type: primary (units unknown) (unknown) (unknown) (no date) (unknown) (unknown) Cognitive/behavioral status at discharge: oriented (units unknown) (unknown) (unknown) (no date) (unknown) (unknown) Comment: Posterior h ip precautions (units unknown) (unknown) (unknown) (no date) (unknown) (unknown) Comment: WBAT, avoid extreme positioning, no hip abductor s (units unknown) (unknown) (unknown) (no date) (unknown) (unknown) Comment: (units unknown) (unknown) (unknown) (no date) (unknown) (unknown) Consult to Anesthesiology Routine (units unknown) (unknown) (unknown) (no date) (unknown) (unknown) Consult to Discharge Planning Routine (units unknown) (unknown) (unknown) (no date) (unknown) (unknown) Consult to Occupational Therapy Evaluate + Treat (units unknown) (unknown) (unknown) (no date) (unknown) (unknown) Consult to Physical Therapy Evaluate + Treat (units unknown) (unknown) (unknown) (no date) (unknown) (unknown) Consulting Provider: Anesthesiologist (units unknown) (unknown) (unknown) (no date) (unknown) (unknown) Consults: (units unknown) (unknown) (unknown) (no date) (unknown) (unknown) Continued (units unknown) (unknown) (unknown) (no date) (unknown) (unknown) : 1950 Acct:[id number] (units unknown) (unknown) (unknown) (no date) (unknown) (unknown) Date Patient Seen: 10/08/22 (units unknown) (unknown) (unknown) (no date) (unknown) (unknown) Date of Service: 10/02/22 (units unknown) (unknown) (unknown) (no date) (unknown) (unknown) Date of admission: (units unknown) (unknown) (unknown) (no date) (unknown) (unknown) Date of procedure: 10/04/22 (units unknown) (unknown) (unknown) (no date) (unknown) (unknown) Deep Vein Thrombosis/Pulmonary Embolism Present on Admission: No (units unknown) (unknown) (unknown) (no date) (unknown) (unknown) Depression (units unknown) (unknown) (unknown) (no date) (unknown) (unknown) Diet/Activity/Treatm en ts (units unknown) (unknown) (unknown) (no date) (unknown) (unknown) Diet: Diet as Tolerated (units unknown) (unknown) (unknown) (no date) (unknown) (unknown) Discharge Assessment + Plan (units unknown) (unknown) (unknown) (no date) (unknown) (unknown) Discharge Data (units unknown) (unknown) (unknown) (no date) (unknown) (unknown) Discharge Date: 10/08/22 (units unknown) (unknown) (unknown) (no date) (unknown) (unknown) Discharge Diagnosis: (units unknown) (unknown) (unknown) (no date) (unknown) (unknown) Discharge Plan (units unknown) (unknown) (unknown) (no date) (unknown) (unknown) Discharge Providers (units unknown) (unknown) (unknown) (no date) (unknown) (unknown) Discharge Summary (units unknown) (unknown) (unknown) (no date) (unknown) (unknown) Discharge orders + Medications (units unknown) (unknown) (unknown) (no date) (unknown) (unknown) Discharge provider: (units unknown) (unknown) (unknown) (no date) (unknown) (unknown) Diverticulitis (units unknown) (unknown) (unknown) (no date) (unknown) (unknown) Dressing: May shower . Leave ELENA dressing in place until follow up in office. (units unknown) (unknown) (unknown) (no date) (unknown) (unknown) Eos # (Auto) 900 H (units unknown) (unknown) (unknown) (no date) (unknown) (unknown) Eos % (Auto) 17.1 H (units unknown) (unknown) (unknown) (no date) (unknown) (unknown) Estimated Blood Loss (mL): 300 (units unknown) (unknown) (unknown) (no date) (unknown) (unknown) Exam Narrative: (units unknown) (unknown) (unknown) (no date) (unknown) (unknown) Exam (units unknown) (unknown) (unknown) (no date) (unknown) (unknown) Excedrin Extra Strength 250-250-65 mg Tablet (units unknown) (unknown) (unknown) (no date) (unknown) (unknown) Findings: (units unknown) (unknown) (unknown) (no date) (unknown) (unknown) Follow up/Referrals: (units unknown) (unknown) (unknown) (no date) (unknown) (unknown) Functional status at discharge: uses cane/walker (units unknown) (unknown) (unknown) (no date) (unknown) (unknown) GERD (gastroesophage al reflux disease) (units unknown) (unknown) (unknown) (no date) (unknown) (unknown) HLD (hyperlipidemia) (units unknown) (unknown) (unknown) (no date) (unknown) (unknown) Hct 22.8 L (units unknown) (unknown) (unknown) (no date) (unknown) (unknown) Hearing impaired (units unknown) (unknown) (unknown) (no date) (unknown) (unknown) Hgb 7.7 L (units unknown) (unknown) (unknown) (no date) (unknown) (unknown) History of Present Illness (units unknown) (unknown) (unknown) (no date) (unknown) (unknown) History of bladder surgery (units unknown) (unknown) (unknown) (no date) (unknown) (unknown) History of total lef t knee replacement (units unknown) (unknown) (unknown) (no date) (unknown) (unknown) History of total rig ht knee replacement (units unknown) (unknown) (unknown) (no date) (unknown) (unknown) Hospital Course (units unknown) (unknown) (unknown) (no date) (unknown) (unknown) Hospital Course: (units unknown) (unknown) (unknown) (no date) (unknown) (unknown) Hx of left breast biopsy (units unknown) (unknown) (unknown) (no date) (unknown) (unknown) Hx of right breast biopsy (units unknown) (unknown) (unknown) (no date) (unknown) (unknown) Hx of tonsillectomy (units unknown) (unknown) (unknown) (no date) (unknown) (unknown) Indications: (units unknown) (unknown) (unknown) (no date) (unknown) (unknown) Instructions: DI for Hip Replacement, DI for Prescription Opioid Use (units unknown) (unknown) (unknown) (no date) (unknown) (unknown) [address] [address] (units unknown) (unknown) (unknown) (no date) (unknown) (unknown) Kelley Springer PA-C (units unknown) (unknown) (unknown) (no date) (unknown) (unknown) Maria Teresa Larsen PA-C (units unknown) (unknown) (unknown) (no date) (unknown) (unknown) Laboratory Results - last 24 hr (units unknown) (unknown) (unknown) (no date) (unknown) (unknown) Labs (units unknown) (unknown) (unknown) (no date) (unknown) (unknown) Labs: (units unknown) (unknown) (unknown) (no date) (unknown) (unknown) Left hip dislocation , revision left total hip arthroplasty (units unknown) (unknown) (unknown) (no date) (unknown) (unknown) Lymph # (Auto) 1600 (units unknown) (unknown) (unknown) (no date) (unknown) (unknown) Lymph % (Auto) 28.5 (units unknown) (unknown) (unknown) (no date) (unknown) (unknown) MCH 28.6 (units unknown) (unknown) (unknown) (no date) (unknown) (unknown) MCHC 33.6 (units unknown) (unknown) (unknown) (no date) (unknown) (unknown) MCV 84.9 (units unknown) (unknown) (unknown) (no date) (unknown) (unknown) May have 1-2 tabs every 4-6 hrs as needed (units unknown) (unknown) (unknown) (no date) (unknown) (unknown) Medical History (units unknown) (unknown) (unknown) (no date) (unknown) (unknown) [place] # (Auto) 400 (units unknown) (unknown) (unknown) (no date) (unknown) (unknown) [place] % (Auto) 7.4 (units unknown) (unknown) (unknown) (no date) (unknown) (unknown) Narrative (units unknown) (unknown) (unknown) (no date) (unknown) (unknown) Narrative: (units unknown) (unknown) (unknown) (no date) (unknown) (unknown) Neut # (Auto) 2500 (units unknown) (unknown) (unknown) (no date) (unknown) (unknown) Neut % (Auto) 46.2 L (units unknown) (unknown) (unknown) (no date) (unknown) (unknown) New (units unknown) (unknown) (unknown) (no date) (unknown) (unknown) [facility] to schedule appt w/ Dr River in 2 weeks for wound check (units unknown) (unknown) (unknown) (no date) (unknown) (unknown) Objective (units unknown) (unknown) (unknown) (no date) (unknown) (unknown) Operative Date/Time/Diagnoses (units unknown) (unknown) (unknown) (no date) (unknown) (unknown) Operative Notes (units unknown) (unknown) (unknown) (no date) (unknown) (unknown) Options risks benefi ts and complications including but not limited to, leg (units unknown) (unknown) (unknown) (no date) (unknown) (unknown) Osteoarthritis (units unknown) (unknown) (unknown) (no date) (unknown) (unknown) Overall status at discharge: patient is progressing back to baseline (units unknown) (unknown) (unknown) (no date) (unknown) (unknown) Oxygen Delivery Meth od Room Air (units unknown) (unknown) (unknown) (no date) (unknown) (unknown) Oxygen Flow Rate 0 (units unknown) (unknown) (unknown) (no date) (unknown) (unknown) PFSH (units unknown) (unknown) (unknown) (no date) (unknown) (unknown) Patient Disposition: SNF (units unknown) (unknown) (unknown) (no date) (unknown) (unknown) Patient is progressi ng well after multiple hip dislocations and subsequent (units unknown) (unknown) (unknown) (no date) (unknown) (unknown) Patient is resting comfortably in bed this morning with at bedside. She (units unknown) (unknown) (unknown) (no date) (unknown) (unknown) Patient: Barbara Garcia MR#: [id number] (units unknown) (unknown) (unknown) (no date) (unknown) (unknown) Physician Instructions: Evaluate and Treat (units unknown) (unknown) (unknown) (no date) (unknown) (unknown) Physician Instructions: Evaluate and treat (units unknown) (unknown) (unknown) (no date) (unknown) (unknown) Physician Instructions: post op SARA protocol (units unknown) (unknown) (unknown) (no date) (unknown) (unknown) Plan of Treatment: (units unknown) (unknown) (unknown) (no date) (unknown) (unknown) Pleasant 72-year-old female. Awake, alert, and oriented. 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, left greater (units unknown) (unknown) (unknown) (no date) (unknown) (unknown) Prescriptions: (units unknown) (unknown) (unknown) (no date) (unknown) (unknown) Prevent blood clots (units unknown) (unknown) (unknown) (no date) (unknown) (unknown) Primary Care Provide r: Maria Teresa Larsen (units unknown) (unknown) (unknown) (no date) (unknown) (unknown) Primary care physician: (units unknown) (unknown) (unknown) (no date) (unknown) (unknown) Procedure + Clinicians (units unknown) (unknown) (unknown) (no date) (unknown) (unknown) Procedure: (units unknown) (unknown) (unknown) (no date) (unknown) (unknown) Prosthetic devices, grafts, tissues, transplants, or devices: (units unknown) (unknown) (unknown) (no date) (unknown) (unknown) Provider (units unknown) (unknown) (unknown) (no date) (unknown) (unknown) Provider: Kelley Springer P.A-C (units unknown) (unknown) (unknown) (no date) (unknown) (unknown) Quality (units unknown) (unknown) (unknown) (no date) (unknown) (unknown) RBC 2.68 L (units unknown) (unknown) (unknown) (no date) (unknown) (unknown) RDW 16.3 H (units unknown) (unknown) (unknown) (no date) (unknown) (unknown) Reason for consultation: Regional block for post operative pain control (units unknown) (unknown) (unknown) (no date) (unknown) (unknown) Reason for rehabilitation: Post-operative therapy (units unknown) (unknown) (unknown) (no date) (unknown) (unknown) Rehab type: Physical therapy and Occupational therapy (units unknown) (unknown) (unknown) (no date) (unknown) (unknown) Report to your healthcare provider any signs of infection, such as:: chills, (units unknown) (unknown) (unknown) (no date) (unknown) (unknown) Restrictions to mobility: See above. (units unknown) (unknown) (unknown) (no date) (unknown) (unknown) Revision left total hip arthroplasty, ORIF left greater trochanter (units unknown) (unknown) (unknown) (no date) (unknown) (unknown) Rx Instructions: (units unknown) (unknown) (unknown) (no date) (unknown) (unknown) Same procedure as scheduled: Yes (units unknown) (unknown) (unknown) (no date) (unknown) (unknown) Seasonal allergies (units unknown) (unknown) (unknown) (no date) (unknown) (unknown) Signed By: (units unknown) (unknown) (unknown) (no date) (unknown) (unknown) Skin/Wound/Dressing Care (units unknown) (unknown) (unknown) (no date) (unknown) (unknown) Mirian Redapt femur size 15 by 190 standard offset, Redapt acetabulum (units unknown) (unknown) (unknown) (no date) (unknown) (unknown) Annika River MD [Physician] - 2 Weeks (Please call [facility] (units unknown) (unknown) (unknown) (no date) (unknown) (unknown) Smoking Status: Carmencita rubin smoker (units unknown) (unknown) (unknown) (no date) (unknown) (unknown) Social History (units unknown) (unknown) (unknown) (no date) (unknown) (unknown) Special Rehabilitati on Services (units unknown) (unknown) (unknown) (no date) (unknown) (unknown) Specimen(s): none sent (units unknown) (unknown) (unknown) (no date) (unknown) (unknown) Stand Alone Forms: Patient Portal/API, Surgery Discharge (units unknown) (unknown) (unknown) (no date) (unknown) (unknown) Status at Discharge (units unknown) (unknown) (unknown) (no date) (unknown) (unknown) Summary (units unknown) (unknown) (unknown) (no date) (unknown) (unknown) Surgeon: Annika River (units unknown) (unknown) (unknown) (no date) (unknown) (unknown) Surgical History (units unknown) (unknown) (unknown) (no date) (unknown) (unknown) This is a 72-year-ol d female has a history of a left hip total hip (units unknown) (unknown) (unknown) (no date) (unknown) (unknown) Time Patient Seen: 07:30 (units unknown) (unknown) (unknown) (no date) (unknown) (unknown) Time of procedure: 15:00 (units unknown) (unknown) (unknown) (no date) (unknown) (unknown) VTE (units unknown) (unknown) (unknown) (no date) (unknown) (unknown) Very soft bone, adequate reduction of the greater trochanter fracture, (units unknown) (unknown) (unknown) (no date) (unknown) (unknown) Visit Report/Dischar ge Packet (units unknown) (unknown) (unknown) (no date) (unknown) (unknown) Vital Signs (units unknown) (unknown) (unknown) (no date) (unknown) (unknown) WBC 5.5 (units unknown) (unknown) (unknown) (no date) (unknown) (unknown) Weightbearing as tolerated to left leg with walker. Global hip precautions (units unknown) (unknown) (unknown) (no date) (unknown) (unknown) Will recheck H/H today. If stable and pain can be controlled on oral (units unknown) (unknown) (unknown) (no date) (unknown) (unknown) Maria Teresa Larsen PA-C [Primary Care Provider] (units unknown) (unknown) (unknown) (no date) (unknown) (unknown) [Embedded Image Not Available] (units unknown) (unknown) (unknown) (no date) (unknown) (unknown) abductor exercises because of trochanteric repair.? She should work to keep her (units unknown) (unknown) (unknown) (no date) (unknown) (unknown) acetaminophen 325 mg Tablet (units unknown) (unknown) (unknown) (no date) (unknown) (unknown) alcohol intake: current (units unknown) (unknown) (unknown) (no date) (unknown) (unknown) and repeat xrays.) (units unknown) (unknown) (unknown) (no date) (unknown) (unknown) arthroplasty.? Unfortunately she has had problems with instability and has a (units unknown) (unknown) (unknown) (no date) (unknown) (unknown) aspirin 81 mg Tablet,Delayed Release (Dr/Ec) (units unknown) (unknown) (unknown) (no date) (unknown) (unknown) atorvastatin 20 mg Tablet (units unknown) (unknown) (unknown) (no date) (unknown) (unknown) be replaced before discharge. Strength and sensation intact to bilateral lower (units unknown) (unknown) (unknown) (no date) (unknown) (unknown) becomes saturated inside. (units unknown) (unknown) (unknown) (no date) (unknown) (unknown) cables, 22 x +4 Oxinium femoral head with dual mobility 22 x 36 mm insert, (units unknown) (unknown) (unknown) (no date) (unknown) (unknown) cetirizine [Zyrtec] 10 mg Tablet (units unknown) (unknown) (unknown) (no date) (unknown) (unknown) comminuted slightly displaced trochanteric fracture, adequate stability after (units unknown) (unknown) (unknown) (no date) (unknown) (unknown) cords or masses. Lef t foot with moderate edema. (units unknown) (unknown) (unknown) (no date) (unknown) (unknown) docusate sodium 100 mg Capsule (units unknown) (unknown) (unknown) (no date) (unknown) (unknown) escitalopram oxalate 20 mg Tablet (units unknown) (unknown) (unknown) (no date) (unknown) (unknown) extremities. Bilater al calves soft, compressible, nontender with no palpable (units unknown) (unknown) (unknown) (no date) (unknown) (unknown) fever, night sweats, unusual drainage and unusual redness (units unknown) (unknown) (unknown) (no date) (unknown) (unknown) foot midline and sayra id hip flexion greater than 90?. ASA 81 mg BID for VTE (units unknown) (unknown) (unknown) (no date) (unknown) (unknown) for anesthesia as we ll as potential medical problems was discussed in detail. (units unknown) (unknown) (unknown) (no date) (unknown) (unknown) her trochanter, additional problems requiring additional operations and risks (units unknown) (unknown) (unknown) (no date) (unknown) (unknown) household members: spouse (units unknown) (unknown) (unknown) (no date) (unknown) (unknown) hydroxyzine pamoate [Vistaril] 25 mg capsule (units unknown) (unknown) (unknown) (no date) (unknown) (unknown) ibuprofen 400 mg Tablet (units unknown) (unknown) (unknown) (no date) (unknown) (unknown) intraoperative elena bandage with near-total saturation with serous fluid -will (units unknown) (unknown) (unknown) (no date) (unknown) (unknown) it. No bathing or otherwise soaking incision. Call the office if the dressing (units unknown) (unknown) (unknown) (no date) (unknown) (unknown) keep her foot midlin e and avoid hip flexion greater than 90?. (units unknown) (unknown) (unknown) (no date) (unknown) (unknown) left hip greater trochanter fracture.? She is brought to the operating room for (units unknown) (unknown) (unknown) (no date) (unknown) (unknown) length inequality, persistent instability, infection, failure to unite or heal (units unknown) (unknown) (unknown) (no date) (unknown) (unknown) medication, will mg n on d/c to SNF tomorrow. Reinforce ELENA dressing. (units unknown) (unknown) (unknown) (no date) (unknown) (unknown) omeprazole-sodium bicarbonate [Zegerid] 20-1.1 mg-gram Capsule (units unknown) (unknown) (unknown) (no date) (unknown) (unknown) oxycodone 5 mg Tablet (units unknown) (unknown) (unknown) (no date) (unknown) (unknown) physical therapy has been set up for her. She is looking forward to going home (units unknown) (unknown) (unknown) (no date) (unknown) (unknown) precautions (anterio r and posterior precautions) with full weight-bearing. (units unknown) (unknown) (unknown) (no date) (unknown) (unknown) prophylaxis. F/u in office in 2 weeks. (units unknown) (unknown) (unknown) (no date) (unknown) (unknown) reconstruction (units unknown) (unknown) (unknown) (no date) (unknown) (unknown) revision left total arthroplasty. (units unknown) (unknown) (unknown) (no date) (unknown) (unknown) revision total hip arthroplasty and ORIF of her greater trochanter fracture.? (units unknown) (unknown) (unknown) (no date) (unknown) (unknown) solifenacin [Vesicar e] 10 mg Tablet (units unknown) (unknown) (unknown) (no date) (unknown) (unknown) states physical therapy has been going well. She understands that home health (units unknown) (unknown) (unknown) (no date) (unknown) (unknown) today. Denies chest pain, shortness of breath, fever, chills. (units unknown) (unknown) (unknown) (no date) (unknown) (unknown) trochanter fracture (units unknown) (unknown) Result panel [id number] (unknown) (no date) (unknown) (unknown) (no value) (units unknown) (unknown) (unknown) (no date) (unknown) (unknown) (anterior and posterior precautions) with full weight-bearing. Avoid hip (units unknown) (unknown) (unknown) (no date) (unknown) (unknown) (past 8 hours): (units unknown) (unknown) (unknown) (no date) (unknown) (unknown) 10/02/22 17:57 (units unknown) (unknown) (unknown) (no date) (unknown) (unknown) 10/02/22 19:13 (units unknown) (unknown) (unknown) (no date) (unknown) (unknown) 10/02/22 19:42 (units unknown) (unknown) (unknown) (no date) (unknown) (unknown) 10/04/22 06:14 (units unknown) (unknown) (unknown) (no date) (unknown) (unknown) 10/04/22 21:42 (units unknown) (unknown) (unknown) (no date) (unknown) (unknown) 10/08/22 06:11 (units unknown) (unknown) (unknown) (no date) (unknown) (unknown) 10/08/22 (units unknown) (unknown) (unknown) (no date) (unknown) (unknown) 06:11 (units unknown) (unknown) (unknown) (no date) (unknown) (unknown) 0RF (units unknown) (unknown) (unknown) (no date) (unknown) (unknown) 1 - 2 tab PO BID (units unknown) (unknown) (unknown) (no date) (unknown) (unknown) 1 cap PO DAILY PRN (Reason: GI Upset) (units unknown) (unknown) (unknown) (no date) (unknown) (unknown) 10 mg PO DAILY PRN (Reason: Seasonal allergies) (units unknown) (unknown) (unknown) (no date) (unknown) (unknown) 10 mg PO DAILY (units unknown) (unknown) (unknown) (no date) (unknown) (unknown) 100 mg PO BID PRN (Reason: constipation) Qty: 30 0RF (units unknown) (unknown) (unknown) (no date) (unknown) (unknown) 20 mg PO BEDTIME (units unknown) (unknown) (unknown) (no date) (unknown) (unknown) 20 mg PO DAILY (units unknown) (unknown) (unknown) (no date) (unknown) (unknown) 25 mg PO TID-QID PRN (Reason: itching) Qty: 60 0RF (units unknown) (unknown) (unknown) (no date) (unknown) (unknown) 3151 (units unknown) (unknown) (unknown) (no date) (unknown) (unknown) 400 mg PO Q4H MDD Ma x 2400 mg per day PRN (Reason: Pain/inflammation) Qty: 90 (units unknown) (unknown) (unknown) (no date) (unknown) (unknown) 48 mm, 2 locking screws, 1 nonlocking screw, dual mobility liner, 2 cerclage (units unknown) (unknown) (unknown) (no date) (unknown) (unknown) 5 mg PO Q4-6H PRN (Reason: Pain, Moderate (4-6)) Qty: 60 0RF (units unknown) (unknown) (unknown) (no date) (unknown) (unknown) 650 mg PO Q6H MDD Ma x 3000 mg per day PRN (Reason: fever or pain) Qty: 90 0RF (units unknown) (unknown) (unknown) (no date) (unknown) (unknown) 81 mg PO BID 42 Days Qty: 84 0RF (units unknown) (unknown) (unknown) (no date) (unknown) (unknown) Activity: Weightbearing as tolerated to left leg with walker. Global hip (units unknown) (unknown) (unknown) (no date) (unknown) (unknown) After the batteries in 5-7 days, may cut off battery pack and dispose of (units unknown) (unknown) (unknown) (no date) (unknown) (unknown) Age/Sex: 72 / F (units unknown) (unknown) (unknown) (no date) (unknown) (unknown) Anesthesia Type: General and Spinal (units unknown) (unknown) (unknown) (no date) (unknown) (unknown) Assessment and Plan (units unknown) (unknown) (unknown) (no date) (unknown) (unknown) Assessment: (units unknown) (unknown) (unknown) (no date) (unknown) (unknown) [employer]: Kelley Springer (units unknown) (unknown) (unknown) (no date) (unknown) (unknown) Avoid hip abductor exercises because of trochanteric repair.? She should work to (units unknown) (unknown) (unknown) (no date) (unknown) (unknown) Baso # (Auto) 0 (units unknown) (unknown) (unknown) (no date) (unknown) (unknown) Baso % (Auto) 0.8 (units unknown) (unknown) (unknown) (no date) (unknown) (unknown) Blood products transfused: none (units unknown) (unknown) (unknown) (no date) (unknown) (unknown) Chief complaint: L H ip Dislocation (units unknown) (unknown) (unknown) (no date) (unknown) (unknown) Closure Type: primary (units unknown) (unknown) (unknown) (no date) (unknown) (unknown) Cognitive/behavioral status at discharge: oriented (units unknown) (unknown) (unknown) (no date) (unknown) (unknown) Comment: Posterior h ip precautions (units unknown) (unknown) (unknown) (no date) (unknown) (unknown) Comment: WBAT, avoid extreme positioning, no hip abductor s (units unknown) (unknown) (unknown) (no date) (unknown) (unknown) Comment: (units unknown) (unknown) (unknown) (no date) (unknown) (unknown) Consult to Anesthesiology Routine (units unknown) (unknown) (unknown) (no date) (unknown) (unknown) Consult to Discharge Planning Routine (units unknown) (unknown) (unknown) (no date) (unknown) (unknown) Consult to Occupational Therapy Evaluate + Treat (units unknown) (unknown) (unknown) (no date) (unknown) (unknown) Consult to Physical Therapy Evaluate + Treat (units unknown) (unknown) (unknown) (no date) (unknown) (unknown) Consulting Provider: Anesthesiologist (units unknown) (unknown) (unknown) (no date) (unknown) (unknown) Consults: (units unknown) (unknown) (unknown) (no date) (unknown) (unknown) Continued (units unknown) (unknown) (unknown) (no date) (unknown) (unknown) : 1950 Acct:[id number] (units unknown) (unknown) (unknown) (no date) (unknown) (unknown) Date Patient Seen: 10/08/22 (units unknown) (unknown) (unknown) (no date) (unknown) (unknown) Date of Service: 10/02/22 (units unknown) (unknown) (unknown) (no date) (unknown) (unknown) Date of admission: (units unknown) (unknown) (unknown) (no date) (unknown) (unknown) Date of procedure: 10/04/22 (units unknown) (unknown) (unknown) (no date) (unknown) (unknown) Deep Vein Thrombosis/Pulmonary Embolism Present on Admission: No (units unknown) (unknown) (unknown) (no date) (unknown) (unknown) Depression (units unknown) (unknown) (unknown) (no date) (unknown) (unknown) Diet/Activity/Treatm en ts (units unknown) (unknown) (unknown) (no date) (unknown) (unknown) Diet: Diet as Tolerated (units unknown) (unknown) (unknown) (no date) (unknown) (unknown) Discharge Assessment + Plan (units unknown) (unknown) (unknown) (no date) (unknown) (unknown) Discharge Data (units unknown) (unknown) (unknown) (no date) (unknown) (unknown) Discharge Date: 10/08/22 (units unknown) (unknown) (unknown) (no date) (unknown) (unknown) Discharge Diagnosis: (units unknown) (unknown) (unknown) (no date) (unknown) (unknown) Discharge Plan (units unknown) (unknown) (unknown) (no date) (unknown) (unknown) Discharge Providers (units unknown) (unknown) (unknown) (no date) (unknown) (unknown) Discharge Summary (units unknown) (unknown) (unknown) (no date) (unknown) (unknown) Discharge orders + Medications (units unknown) (unknown) (unknown) (no date) (unknown) (unknown) Discharge provider: (units unknown) (unknown) (unknown) (no date) (unknown) (unknown) Diverticulitis (units unknown) (unknown) (unknown) (no date) (unknown) (unknown) Dressing: October shower . Leave ELENA dressing in place until follow up in office. (units unknown) (unknown) (unknown) (no date) (unknown) (unknown) Eos # (Auto) 900 H (units unknown) (unknown) (unknown) (no date) (unknown) (unknown) Eos % (Auto) 17.1 H (units unknown) (unknown) (unknown) (no date) (unknown) (unknown) Estimated Blood Loss (mL): 300 (units unknown) (unknown) (unknown) (no date) (unknown) (unknown) Exam Narrative: (units unknown) (unknown) (unknown) (no date) (unknown) (unknown) Exam (units unknown) (unknown) (unknown) (no date) (unknown) (unknown) Excedrin Extra Strength 250-250-65 mg Tablet (units unknown) (unknown) (unknown) (no date) (unknown) (unknown) Findings: (units unknown) (unknown) (unknown) (no date) (unknown) (unknown) Follow up/Referrals: (units unknown) (unknown) (unknown) (no date) (unknown) (unknown) Functional status at discharge: uses cane/walker (units unknown) (unknown) (unknown) (no date) (unknown) (unknown) GERD (gastroesophage al reflux disease) (units unknown) (unknown) (unknown) (no date) (unknown) (unknown) HLD (hyperlipidemia) (units unknown) (unknown) (unknown) (no date) (unknown) (unknown) Hct 22.8 L (units unknown) (unknown) (unknown) (no date) (unknown) (unknown) Hearing impaired (units unknown) (unknown) (unknown) (no date) (unknown) (unknown) Hgb 7.7 L (units unknown) (unknown) (unknown) (no date) (unknown) (unknown) History of Present Illness (units unknown) (unknown) (unknown) (no date) (unknown) (unknown) History of bladder surgery (units unknown) (unknown) (unknown) (no date) (unknown) (unknown) History of total lef t knee replacement (units unknown) (unknown) (unknown) (no date) (unknown) (unknown) History of total rig ht knee replacement (units unknown) (unknown) (unknown) (no date) (unknown) (unknown) Hospital Course (units unknown) (unknown) (unknown) (no date) (unknown) (unknown) Hospital Course: (units unknown) (unknown) (unknown) (no date) (unknown) (unknown) Hx of left breast biopsy (units unknown) (unknown) (unknown) (no date) (unknown) (unknown) Hx of right breast biopsy (units unknown) (unknown) (unknown) (no date) (unknown) (unknown) Hx of tonsillectomy (units unknown) (unknown) (unknown) (no date) (unknown) (unknown) Indications: (units unknown) (unknown) (unknown) (no date) (unknown) (unknown) Instructions: DI for Hip Replacement, DI for Prescription Opioid Use (units unknown) (unknown) (unknown) (no date) (unknown) (unknown) [address] [address] (units unknown) (unknown) (unknown) (no date) (unknown) (unknown) Kelley Springer PA-C (units unknown) (unknown) (unknown) (no date) (unknown) (unknown) Maria Teresa Larsen PA-C (units unknown) (unknown) (unknown) (no date) (unknown) (unknown) Laboratory Results - last 24 hr (units unknown) (unknown) (unknown) (no date) (unknown) (unknown) Labs (units unknown) (unknown) (unknown) (no date) (unknown) (unknown) Labs: (units unknown) (unknown) (unknown) (no date) (unknown) (unknown) Left hip dislocation , revision left total hip arthroplasty (units unknown) (unknown) (unknown) (no date) (unknown) (unknown) Lymph # (Auto) 1600 (units unknown) (unknown) (unknown) (no date) (unknown) (unknown) Lymph % (Auto) 28.5 (units unknown) (unknown) (unknown) (no date) (unknown) (unknown) MCH 28.6 (units unknown) (unknown) (unknown) (no date) (unknown) (unknown) MCHC 33.6 (units unknown) (unknown) (unknown) (no date) (unknown) (unknown) MCV 84.9 (units unknown) (unknown) (unknown) (no date) (unknown) (unknown) May have 1-2 tabs every 4-6 hrs as needed (units unknown) (unknown) (unknown) (no date) (unknown) (unknown) Medical History (units unknown) (unknown) (unknown) (no date) (unknown) (unknown) [place] # (Auto) 400 (units unknown) (unknown) (unknown) (no date) (unknown) (unknown) [place] % (Auto) 7.4 (units unknown) (unknown) (unknown) (no date) (unknown) (unknown) Narrative (units unknown) (unknown) (unknown) (no date) (unknown) (unknown) Narrative: (units unknown) (unknown) (unknown) (no date) (unknown) (unknown) Neut # (Auto) 2500 (units unknown) (unknown) (unknown) (no date) (unknown) (unknown) Neut % (Auto) 46.2 L (units unknown) (unknown) (unknown) (no date) (unknown) (unknown) New (units unknown) (unknown) (unknown) (no date) (unknown) (unknown) [facility] to schedule appt w/ Dr River in 2 weeks for wound check (units unknown) (unknown) (unknown) (no date) (unknown) (unknown) Objective (units unknown) (unknown) (unknown) (no date) (unknown) (unknown) Operative Date/Time/Diagnoses (units unknown) (unknown) (unknown) (no date) (unknown) (unknown) Operative Notes (units unknown) (unknown) (unknown) (no date) (unknown) (unknown) Options risks benefi ts and complications including but not limited to, leg (units unknown) (unknown) (unknown) (no date) (unknown) (unknown) Osteoarthritis (units unknown) (unknown) (unknown) (no date) (unknown) (unknown) Overall status at discharge: patient is progressing back to baseline (units unknown) (unknown) (unknown) (no date) (unknown) (unknown) Oxygen Delivery Meth od Room Air (units unknown) (unknown) (unknown) (no date) (unknown) (unknown) Oxygen Flow Rate 0 (units unknown) (unknown) (unknown) (no date) (unknown) (unknown) PFSH (units unknown) (unknown) (unknown) (no date) (unknown) (unknown) Patient Disposition: SNF (units unknown) (unknown) (unknown) (no date) (unknown) (unknown) Patient is progressi ng well after multiple hip dislocations and subsequent (units unknown) (unknown) (unknown) (no date) (unknown) (unknown) Patient is resting comfortably in bed this morning with at bedside. She (units unknown) (unknown) (unknown) (no date) (unknown) (unknown) Patient: Barbara Garcia MR#: [id number] (units unknown) (unknown) (unknown) (no date) (unknown) (unknown) Physician Instructions: Evaluate and Treat (units unknown) (unknown) (unknown) (no date) (unknown) (unknown) Physician Instructions: Evaluate and treat (units unknown) (unknown) (unknown) (no date) (unknown) (unknown) Physician Instructions: post op SARA protocol (units unknown) (unknown) (unknown) (no date) (unknown) (unknown) Plan of Treatment: (units unknown) (unknown) (unknown) (no date) (unknown) (unknown) Pleasant 72-year-old female. Awake, alert, and oriented. 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, left greater (units unknown) (unknown) (unknown) (no date) (unknown) (unknown) Prescriptions: (units unknown) (unknown) (unknown) (no date) (unknown) (unknown) Prevent blood clots (units unknown) (unknown) (unknown) (no date) (unknown) (unknown) Primary Care Provide r: Maria Teresa Larsen (units unknown) (unknown) (unknown) (no date) (unknown) (unknown) Primary care physician: (units unknown) (unknown) (unknown) (no date) (unknown) (unknown) Procedure + Clinicians (units unknown) (unknown) (unknown) (no date) (unknown) (unknown) Procedure: (units unknown) (unknown) (unknown) (no date) (unknown) (unknown) Prosthetic devices, grafts, tissues, transplants, or devices: (units unknown) (unknown) (unknown) (no date) (unknown) (unknown) Provider (units unknown) (unknown) (unknown) (no date) (unknown) (unknown) Provider: Kelley Springer P.A-C (units unknown) (unknown) (unknown) (no date) (unknown) (unknown) Quality (units unknown) (unknown) (unknown) (no date) (unknown) (unknown) RBC 2.68 L (units unknown) (unknown) (unknown) (no date) (unknown) (unknown) RDW 16.3 H (units unknown) (unknown) (unknown) (no date) (unknown) (unknown) Reason for consultation: Regional block for post operative pain control (units unknown) (unknown) (unknown) (no date) (unknown) (unknown) Reason for rehabilitation: Post-operative therapy (units unknown) (unknown) (unknown) (no date) (unknown) (unknown) Rehab type: Physical therapy and Occupational therapy (units unknown) (unknown) (unknown) (no date) (unknown) (unknown) Report to your healthcare provider any signs of infection, such as:: chills, (units unknown) (unknown) (unknown) (no date) (unknown) (unknown) Restrictions to mobility: See above. (units unknown) (unknown) (unknown) (no date) (unknown) (unknown) Revision left total hip arthroplasty, ORIF left greater trochanter (units unknown) (unknown) (unknown) (no date) (unknown) (unknown) Rx Instructions: (units unknown) (unknown) (unknown) (no date) (unknown) (unknown) Same procedure as scheduled: Yes (units unknown) (unknown) (unknown) (no date) (unknown) (unknown) Seasonal allergies (units unknown) (unknown) (unknown) (no date) (unknown) (unknown) Signed By: (units unknown) (unknown) (unknown) (no date) (unknown) (unknown) Skin/Wound/Dressing Care (units unknown) (unknown) (unknown) (no date) (unknown) (unknown) Mirian Redapt femur size 15 by 190 standard offset, Redapt acetabulum (units unknown) (unknown) (unknown) (no date) (unknown) (unknown) Annika River MD [Physician] - 2 Weeks (Please call [facility] (units unknown) (unknown) (unknown) (no date) (unknown) (unknown) Smoking Status: Carmencita rubin smoker (units unknown) (unknown) (unknown) (no date) (unknown) (unknown) Social History (units unknown) (unknown) (unknown) (no date) (unknown) (unknown) Special Rehabilitati on Services (units unknown) (unknown) (unknown) (no date) (unknown) (unknown) Specimen(s): none sent (units unknown) (unknown) (unknown) (no date) (unknown) (unknown) Stand Alone Forms: Patient Portal/API, Surgery Discharge (units unknown) (unknown) (unknown) (no date) (unknown) (unknown) Status at Discharge (units unknown) (unknown) (unknown) (no date) (unknown) (unknown) Summary (units unknown) (unknown) (unknown) (no date) (unknown) (unknown) Surgeon: Annika River (units unknown) (unknown) (unknown) (no date) (unknown) (unknown) Surgical History (units unknown) (unknown) (unknown) (no date) (unknown) (unknown) This is a 72-year-ol d female has a history of a left hip total hip (units unknown) (unknown) (unknown) (no date) (unknown) (unknown) Time Patient Seen: 07:30 (units unknown) (unknown) (unknown) (no date) (unknown) (unknown) Time of procedure: 15:00 (units unknown) (unknown) (unknown) (no date) (unknown) (unknown) VTE (units unknown) (unknown) (unknown) (no date) (unknown) (unknown) Very soft bone, adequate reduction of the greater trochanter fracture, (units unknown) (unknown) (unknown) (no date) (unknown) (unknown) Visit Report/Dischar ge Packet (units unknown) (unknown) (unknown) (no date) (unknown) (unknown) Vital Signs (units unknown) (unknown) (unknown) (no date) (unknown) (unknown) WBC 5.5 (units unknown) (unknown) (unknown) (no date) (unknown) (unknown) Weightbearing as tolerated to left leg with walker. Global hip precautions (units unknown) (unknown) (unknown) (no date) (unknown) (unknown) Maria Teresa Larsen PA-C [Primary Care Provider] (units unknown) (unknown) (unknown) (no date) (unknown) (unknown) [Embedded Image Not Available] (units unknown) (unknown) (unknown) (no date) (unknown) (unknown) abductor exercises because of trochanteric repair.? She should work to keep her (units unknown) (unknown) (unknown) (no date) (unknown) (unknown) acetaminophen 325 mg Tablet (units unknown) (unknown) (unknown) (no date) (unknown) (unknown) alcohol intake: current (units unknown) (unknown) (unknown) (no date) (unknown) (unknown) and repeat xrays.) (units unknown) (unknown) (unknown) (no date) (unknown) (unknown) arthroplasty.? Unfortunately she has had problems with instability and has a (units unknown) (unknown) (unknown) (no date) (unknown) (unknown) aspirin 81 mg Tablet,Delayed Release (Dr/Ec) (units unknown) (unknown) (unknown) (no date) (unknown) (unknown) atorvastatin 20 mg Tablet (units unknown) (unknown) (unknown) (no date) (unknown) (unknown) be replaced before discharge. Strength and sensation intact to bilateral lower (units unknown) (unknown) (unknown) (no date) (unknown) (unknown) becomes saturated inside. (units unknown) (unknown) (unknown) (no date) (unknown) (unknown) cables, 22 x +4 Oxinium femoral head with dual mobility 22 x 36 mm insert, (units unknown) (unknown) (unknown) (no date) (unknown) (unknown) cetirizine [Zyrtec] 10 mg Tablet (units unknown) (unknown) (unknown) (no date) (unknown) (unknown) comminuted slightly displaced trochanteric fracture, adequate stability after (units unknown) (unknown) (unknown) (no date) (unknown) (unknown) cords or masses. Lef t foot with moderate edema. (units unknown) (unknown) (unknown) (no date) (unknown) (unknown) docusate sodium 100 mg Capsule (units unknown) (unknown) (unknown) (no date) (unknown) (unknown) escitalopram oxalate 20 mg Tablet (units unknown) (unknown) (unknown) (no date) (unknown) (unknown) extremities. Bilater al calves soft, compressible, nontender with no palpable (units unknown) (unknown) (unknown) (no date) (unknown) (unknown) fever, night sweats, unusual drainage and unusual redness (units unknown) (unknown) (unknown) (no date) (unknown) (unknown) foot midline and sayra id hip flexion greater than 90?. ASA 81 mg BID for VTE (units unknown) (unknown) (unknown) (no date) (unknown) (unknown) for anesthesia as we ll as potential medical problems was discussed in detail. (units unknown) (unknown) (unknown) (no date) (unknown) (unknown) her trochanter, additional problems requiring additional operations and risks (units unknown) (unknown) (unknown) (no date) (unknown) (unknown) household members: spouse (units unknown) (unknown) (unknown) (no date) (unknown) (unknown) hydroxyzine pamoate [Vistaril] 25 mg capsule (units unknown) (unknown) (unknown) (no date) (unknown) (unknown) ibuprofen 400 mg Tablet (units unknown) (unknown) (unknown) (no date) (unknown) (unknown) intraoperative elena bandage with near-total saturation with serous fluid -will (units unknown) (unknown) (unknown) (no date) (unknown) (unknown) it. No bathing or otherwise soaking incision. Call the office if the dressing (units unknown) (unknown) (unknown) (no date) (unknown) (unknown) keep her foot midlin e and avoid hip flexion greater than 90?. (units unknown) (unknown) (unknown) (no date) (unknown) (unknown) left hip greater trochanter fracture.? She is brought to the operating room for (units unknown) (unknown) (unknown) (no date) (unknown) (unknown) length inequality, persistent instability, infection, failure to unite or heal (units unknown) (unknown) (unknown) (no date) (unknown) (unknown) omeprazole-sodium bicarbonate [Zegerid] 20-1.1 mg-gram Capsule (units unknown) (unknown) (unknown) (no date) (unknown) (unknown) oxycodone 5 mg Tablet (units unknown) (unknown) (unknown) (no date) (unknown) (unknown) physical therapy has been set up for her. She is looking forward to going home (units unknown) (unknown) (unknown) (no date) (unknown) (unknown) precautions (anterio r and posterior precautions) with full weight-bearing. (units unknown) (unknown) (unknown) (no date) (unknown) (unknown) prophylaxis. F/u in office in 2 weeks. (units unknown) (unknown) (unknown) (no date) (unknown) (unknown) reconstruction (units unknown) (unknown) (unknown) (no date) (unknown) (unknown) revision left total arthroplasty. (units unknown) (unknown) (unknown) (no date) (unknown) (unknown) revision total hip arthroplasty and ORIF of her greater trochanter fracture.? (units unknown) (unknown) (unknown) (no date) (unknown) (unknown) solifenacin [Vesicar e] 10 mg Tablet (units unknown) (unknown) (unknown) (no date) (unknown) (unknown) states physical therapy has been going well. She understands that home health (units unknown) (unknown) (unknown) (no date) (unknown) (unknown) today. Denies chest pain, shortness of breath, fever, chills. (units unknown) (unknown) (unknown) (no date) (unknown) (unknown) trochanter fracture (units unknown) (unknown) Result panel [id number] (unknown) (no date) (unknown) (unknown) (no value) (units unknown) (unknown) (unknown) (no date) (unknown) (unknown) (anterior and posterior precautions) with full weight-bearing. Avoid hip (units unknown) (unknown) (unknown) (no date) (unknown) (unknown) (past 8 hours): (units unknown) (unknown) (unknown) (no date) (unknown) (unknown) 10/02/22 17:57 (units unknown) (unknown) (unknown) (no date) (unknown) (unknown) 10/02/22 19:13 (units unknown) (unknown) (unknown) (no date) (unknown) (unknown) 10/02/22 19:42 (units unknown) (unknown) (unknown) (no date) (unknown) (unknown) 10/04/22 06:14 (units unknown) (unknown) (unknown) (no date) (unknown) (unknown) 10/04/22 21:42 (units unknown) (unknown) (unknown) (no date) (unknown) (unknown) 10/08/22 06:11 (units unknown) (unknown) (unknown) (no date) (unknown) (unknown) 10/08/22 0758 (units unknown) (unknown) (unknown) (no date) (unknown) (unknown) 10/08/22 (units unknown) (unknown) (unknown) (no date) (unknown) (unknown) 06:11 (units unknown) (unknown) (unknown) (no date) (unknown) (unknown) 0RF (units unknown) (unknown) (unknown) (no date) (unknown) (unknown) 1 - 2 tab PO BID (units unknown) (unknown) (unknown) (no date) (unknown) (unknown) 1 cap PO DAILY PRN (Reason: GI Upset) (units unknown) (unknown) (unknown) (no date) (unknown) (unknown) 10 mg PO DAILY PRN (Reason: Seasonal allergies) (units unknown) (unknown) (unknown) (no date) (unknown) (unknown) 10 mg PO DAILY (units unknown) (unknown) (unknown) (no date) (unknown) (unknown) 100 mg PO BID PRN (Reason: constipation) Qty: 30 0RF (units unknown) (unknown) (unknown) (no date) (unknown) (unknown) 20 mg PO BEDTIME (units unknown) (unknown) (unknown) (no date) (unknown) (unknown) 20 mg PO DAILY (units unknown) (unknown) (unknown) (no date) (unknown) (unknown) 25 mg PO TID-QID PRN (Reason: itching) Qty: 60 0RF (units unknown) (unknown) (unknown) (no date) (unknown) (unknown) 3151 (units unknown) (unknown) (unknown) (no date) (unknown) (unknown) 400 mg PO Q4H MDD Ma x 2400 mg per day PRN (Reason: Pain/inflammation) Qty: 90 (units unknown) (unknown) (unknown) (no date) (unknown) (unknown) 48 mm, 2 locking screws, 1 nonlocking screw, dual mobility liner, 2 cerclage (units unknown) (unknown) (unknown) (no date) (unknown) (unknown) 5 mg PO Q4-6H PRN (Reason: Pain, Moderate (4-6)) Qty: 60 0RF (units unknown) (unknown) (unknown) (no date) (unknown) (unknown) 650 mg PO Q6H MDD Ma x 3000 mg per day PRN (Reason: fever or pain) Qty: 90 0RF (units unknown) (unknown) (unknown) (no date) (unknown) (unknown) 81 mg PO BID 42 Days Qty: 84 0RF (units unknown) (unknown) (unknown) (no date) (unknown) (unknown) Activity: Weightbearing as tolerated to left leg with walker. Global hip (units unknown) (unknown) (unknown) (no date) (unknown) (unknown) After the batteries in 5-7 days, may cut off battery pack and dispose of (units unknown) (unknown) (unknown) (no date) (unknown) (unknown) Age/Sex: 72 / F (units unknown) (unknown) (unknown) (no date) (unknown) (unknown) Anesthesia Type: General and Spinal (units unknown) (unknown) (unknown) (no date) (unknown) (unknown) Assessment and Plan (units unknown) (unknown) (unknown) (no date) (unknown) (unknown) Assessment: (units unknown) (unknown) (unknown) (no date) (unknown) (unknown) [employer]: Kelley Springer (units unknown) (unknown) (unknown) (no date) (unknown) (unknown) Avoid hip abductor exercises because of trochanteric repair.? She should work to (units unknown) (unknown) (unknown) (no date) (unknown) (unknown) Baso # (Auto) 0 (units unknown) (unknown) (unknown) (no date) (unknown) (unknown) Baso % (Auto) 0.8 (units unknown) (unknown) (unknown) (no date) (unknown) (unknown) Blood products transfused: none (units unknown) (unknown) (unknown) (no date) (unknown) (unknown) Chief complaint: L H ip Dislocation (units unknown) (unknown) (unknown) (no date) (unknown) (unknown) Closure Type: primary (units unknown) (unknown) (unknown) (no date) (unknown) (unknown) Cognitive/behavioral status at discharge: oriented (units unknown) (unknown) (unknown) (no date) (unknown) (unknown) Comment: Posterior h ip precautions (units unknown) (unknown) (unknown) (no date) (unknown) (unknown) Comment: WBAT, avoid extreme positioning, no hip abductor s (units unknown) (unknown) (unknown) (no date) (unknown) (unknown) Comment: (units unknown) (unknown) (unknown) (no date) (unknown) (unknown) Consult to Anesthesiology Routine (units unknown) (unknown) (unknown) (no date) (unknown) (unknown) Consult to Discharge Planning Routine (units unknown) (unknown) (unknown) (no date) (unknown) (unknown) Consult to Occupational Therapy Evaluate + Treat (units unknown) (unknown) (unknown) (no date) (unknown) (unknown) Consult to Physical Therapy Evaluate + Treat (units unknown) (unknown) (unknown) (no date) (unknown) (unknown) Consulting Provider: Anesthesiologist (units unknown) (unknown) (unknown) (no date) (unknown) (unknown) Consults: (units unknown) (unknown) (unknown) (no date) (unknown) (unknown) Continued (units unknown) (unknown) (unknown) (no date) (unknown) (unknown) : 1950 Acct:[id number] (units unknown) (unknown) (unknown) (no date) (unknown) (unknown) Date Patient Seen: 10/08/22 (units unknown) (unknown) (unknown) (no date) (unknown) (unknown) Date of Service: 10/02/22 (units unknown) (unknown) (unknown) (no date) (unknown) (unknown) Date of admission: (units unknown) (unknown) (unknown) (no date) (unknown) (unknown) Date of procedure: 10/04/22 (units unknown) (unknown) (unknown) (no date) (unknown) (unknown) Deep Vein Thrombosis/Pulmonary Embolism Present on Admission: No (units unknown) (unknown) (unknown) (no date) (unknown) (unknown) Depression (units unknown) (unknown) (unknown) (no date) (unknown) (unknown) Diet/Activity/Treatm en ts (units unknown) (unknown) (unknown) (no date) (unknown) (unknown) Diet: Diet as Tolerated (units unknown) (unknown) (unknown) (no date) (unknown) (unknown) Discharge Assessment + Plan (units unknown) (unknown) (unknown) (no date) (unknown) (unknown) Discharge Data (units unknown) (unknown) (unknown) (no date) (unknown) (unknown) Discharge Date: 10/08/22 (units unknown) (unknown) (unknown) (no date) (unknown) (unknown) Discharge Diagnosis: (units unknown) (unknown) (unknown) (no date) (unknown) (unknown) Discharge Plan (units unknown) (unknown) (unknown) (no date) (unknown) (unknown) Discharge Providers (units unknown) (unknown) (unknown) (no date) (unknown) (unknown) Discharge Summary (units unknown) (unknown) (unknown) (no date) (unknown) (unknown) Discharge orders + Medications (units unknown) (unknown) (unknown) (no date) (unknown) (unknown) Discharge provider: (units unknown) (unknown) (unknown) (no date) (unknown) (unknown) Diverticulitis (units unknown) (unknown) (unknown) (no date) (unknown) (unknown) Dressing: May shower . Leave ELENA dressing in place until follow up in office. (units unknown) (unknown) (unknown) (no date) (unknown) (unknown) Eos # (Auto) 900 H (units unknown) (unknown) (unknown) (no date) (unknown) (unknown) Eos % (Auto) 17.1 H (units unknown) (unknown) (unknown) (no date) (unknown) (unknown) Estimated Blood Loss (mL): 300 (units unknown) (unknown) (unknown) (no date) (unknown) (unknown) Exam Narrative: (units unknown) (unknown) (unknown) (no date) (unknown) (unknown) Exam (units unknown) (unknown) (unknown) (no date) (unknown) (unknown) Excedrin Extra Strength 250-250-65 mg Tablet (units unknown) (unknown) (unknown) (no date) (unknown) (unknown) Findings: (units unknown) (unknown) (unknown) (no date) (unknown) (unknown) Follow up/Referrals: (units unknown) (unknown) (unknown) (no date) (unknown) (unknown) Functional status at discharge: uses cane/walker (units unknown) (unknown) (unknown) (no date) (unknown) (unknown) GERD (gastroesophage al reflux disease) (units unknown) (unknown) (unknown) (no date) (unknown) (unknown) HLD (hyperlipidemia) (units unknown) (unknown) (unknown) (no date) (unknown) (unknown) Hct 22.8 L (units unknown) (unknown) (unknown) (no date) (unknown) (unknown) Hearing impaired (units unknown) (unknown) (unknown) (no date) (unknown) (unknown) Hgb 7.7 L (units unknown) (unknown) (unknown) (no date) (unknown) (unknown) History of Present Illness (units unknown) (unknown) (unknown) (no date) (unknown) (unknown) History of bladder surgery (units unknown) (unknown) (unknown) (no date) (unknown) (unknown) History of total lef t knee replacement (units unknown) (unknown) (unknown) (no date) (unknown) (unknown) History of total rig ht knee replacement (units unknown) (unknown) (unknown) (no date) (unknown) (unknown) Hospital Course (units unknown) (unknown) (unknown) (no date) (unknown) (unknown) Hospital Course: (units unknown) (unknown) (unknown) (no date) (unknown) (unknown) Hx of left breast biopsy (units unknown) (unknown) (unknown) (no date) (unknown) (unknown) Hx of right breast biopsy (units unknown) (unknown) (unknown) (no date) (unknown) (unknown) Hx of tonsillectomy (units unknown) (unknown) (unknown) (no date) (unknown) (unknown) Indications: (units unknown) (unknown) (unknown) (no date) (unknown) (unknown) Instructions: DI for Hip Replacement, DI for Prescription Opioid Use (units unknown) (unknown) (unknown) (no date) (unknown) (unknown) [address] [address] (units unknown) (unknown) (unknown) (no date) (unknown) (unknown) Kelley Springer PA-C (units unknown) (unknown) (unknown) (no date) (unknown) (unknown) Maria Teresa Larsen PA-C (units unknown) (unknown) (unknown) (no date) (unknown) (unknown) Laboratory Results - last 24 hr (units unknown) (unknown) (unknown) (no date) (unknown) (unknown) Labs (units unknown) (unknown) (unknown) (no date) (unknown) (unknown) Labs: (units unknown) (unknown) (unknown) (no date) (unknown) (unknown) Left hip dislocation , revision left total hip arthroplasty (units unknown) (unknown) (unknown) (no date) (unknown) (unknown) Lymph # (Auto) 1600 (units unknown) (unknown) (unknown) (no date) (unknown) (unknown) Lymph % (Auto) 28.5 (units unknown) (unknown) (unknown) (no date) (unknown) (unknown) MCH 28.6 (units unknown) (unknown) (unknown) (no date) (unknown) (unknown) MCHC 33.6 (units unknown) (unknown) (unknown) (no date) (unknown) (unknown) MCV 84.9 (units unknown) (unknown) (unknown) (no date) (unknown) (unknown) May have 1-2 tabs every 4-6 hrs as needed (units unknown) (unknown) (unknown) (no date) (unknown) (unknown) Medical History (units unknown) (unknown) (unknown) (no date) (unknown) (unknown) [place] # (Auto) 400 (units unknown) (unknown) (unknown) (no date) (unknown) (unknown) [place] % (Auto) 7.4 (units unknown) (unknown) (unknown) (no date) (unknown) (unknown) Narrative (units unknown) (unknown) (unknown) (no date) (unknown) (unknown) Narrative: (units unknown) (unknown) (unknown) (no date) (unknown) (unknown) Neut # (Auto) 2500 (units unknown) (unknown) (unknown) (no date) (unknown) (unknown) Neut % (Auto) 46.2 L (units unknown) (unknown) (unknown) (no date) (unknown) (unknown) New (units unknown) (unknown) (unknown) (no date) (unknown) (unknown) [facility] to schedule appt w/ Dr River in 2 weeks for wound check (units unknown) (unknown) (unknown) (no date) (unknown) (unknown) Objective (units unknown) (unknown) (unknown) (no date) (unknown) (unknown) Operative Date/Time/Diagnoses (units unknown) (unknown) (unknown) (no date) (unknown) (unknown) Operative Notes (units unknown) (unknown) (unknown) (no date) (unknown) (unknown) Options risks benefi ts and complications including but not limited to, leg (units unknown) (unknown) (unknown) (no date) (unknown) (unknown) Osteoarthritis (units unknown) (unknown) (unknown) (no date) (unknown) (unknown) Overall status at discharge: patient is progressing back to baseline (units unknown) (unknown) (unknown) (no date) (unknown) (unknown) Oxygen Delivery Meth od Room Air (units unknown) (unknown) (unknown) (no date) (unknown) (unknown) Oxygen Flow Rate 0 (units unknown) (unknown) (unknown) (no date) (unknown) (unknown) PFSH (units unknown) (unknown) (unknown) (no date) (unknown) (unknown) Patient Disposition: SNF (units unknown) (unknown) (unknown) (no date) (unknown) (unknown) Patient is progressi ng well after multiple hip dislocations and subsequent (units unknown) (unknown) (unknown) (no date) (unknown) (unknown) Patient is resting comfortably in bed this morning with at bedside. She (units unknown) (unknown) (unknown) (no date) (unknown) (unknown) Patient: Barbara Garcia MR#: [id number] (units unknown) (unknown) (unknown) (no date) (unknown) (unknown) Physician Instructions: Evaluate and Treat (units unknown) (unknown) (unknown) (no date) (unknown) (unknown) Physician Instructions: Evaluate and treat (units unknown) (unknown) (unknown) (no date) (unknown) (unknown) Physician Instructions: post op SARA protocol (units unknown) (unknown) (unknown) (no date) (unknown) (unknown) Plan of Treatment: (units unknown) (unknown) (unknown) (no date) (unknown) (unknown) Pleasant 72-year-old female. Awake, alert, and oriented. 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, left greater (units unknown) (unknown) (unknown) (no date) (unknown) (unknown) Prescriptions: (units unknown) (unknown) (unknown) (no date) (unknown) (unknown) Prevent blood clots (units unknown) (unknown) (unknown) (no date) (unknown) (unknown) Primary Care Provide r: Maria Teresa Larsen (units unknown) (unknown) (unknown) (no date) (unknown) (unknown) Primary care physician: (units unknown) (unknown) (unknown) (no date) (unknown) (unknown) Procedure + Clinicians (units unknown) (unknown) (unknown) (no date) (unknown) (unknown) Procedure: (units unknown) (unknown) (unknown) (no date) (unknown) (unknown) Prosthetic devices, grafts, tissues, transplants, or devices: (units unknown) (unknown) (unknown) (no date) (unknown) (unknown) Provider (units unknown) (unknown) (unknown) (no date) (unknown) (unknown) Provider: Kelley Springer P.A-C (units unknown) (unknown) (unknown) (no date) (unknown) (unknown) Quality (units unknown) (unknown) (unknown) (no date) (unknown) (unknown) RBC 2.68 L (units unknown) (unknown) (unknown) (no date) (unknown) (unknown) RDW 16.3 H (units unknown) (unknown) (unknown) (no date) (unknown) (unknown) Reason for consultation: Regional block for post operative pain control (units unknown) (unknown) (unknown) (no date) (unknown) (unknown) Reason for rehabilitation: Post-operative therapy (units unknown) (unknown) (unknown) (no date) (unknown) (unknown) Rehab type: Physical therapy and Occupational therapy (units unknown) (unknown) (unknown) (no date) (unknown) (unknown) Report to your healthcare provider any signs of infection, such as:: chills, (units unknown) (unknown) (unknown) (no date) (unknown) (unknown) Restrictions to mobility: See above. (units unknown) (unknown) (unknown) (no date) (unknown) (unknown) Revision left total hip arthroplasty, ORIF left greater trochanter (units unknown) (unknown) (unknown) (no date) (unknown) (unknown) Rx Instructions: (units unknown) (unknown) (unknown) (no date) (unknown) (unknown) Same procedure as scheduled: Yes (units unknown) (unknown) (unknown) (no date) (unknown) (unknown) Seasonal allergies (units unknown) (unknown) (unknown) (no date) (unknown) (unknown) Signed By:<Electronically signed by Kelley Springer> (units unknown) (unknown) (unknown) (no date) (unknown) (unknown) Skin/Wound/Dressing Care (units unknown) (unknown) (unknown) (no date) (unknown) (unknown) Mirian Redapt femur size 15 by 190 standard offset, Redapt acetabulum (units unknown) (unknown) (unknown) (no date) (unknown) (unknown) Annika River MD [Physician] - 2 Weeks (Please call [facility] (units unknown) (unknown) (unknown) (no date) (unknown) (unknown) Smoking Status: Carmencita rubin smoker (units unknown) (unknown) (unknown) (no date) (unknown) (unknown) Social History (units unknown) (unknown) (unknown) (no date) (unknown) (unknown) Special Rehabilita on Services (units unknown) (unknown) (unknown) (no date) (unknown) (unknown) Specimen(s): none sent (units unknown) (unknown) (unknown) (no date) (unknown) (unknown) Stand Alone Forms: Patient Portal/API, Surgery Discharge (units unknown) (unknown) (unknown) (no date) (unknown) (unknown) Status at Discharge (units unknown) (unknown) (unknown) (no date) (unknown) (unknown) Summary (units unknown) (unknown) (unknown) (no date) (unknown) (unknown) Surgeon: Annika River (units unknown) (unknown) (unknown) (no date) (unknown) (unknown) Surgical History (units unknown) (unknown) (unknown) (no date) (unknown) (unknown) This is a 72-year-ol d female has a history of a left hip total hip (units unknown) (unknown) (unknown) (no date) (unknown) (unknown) Time Patient Seen: 07:30 (units unknown) (unknown) (unknown) (no date) (unknown) (unknown) Time of procedure: 15:00 (units unknown) (unknown) (unknown) (no date) (unknown) (unknown) Transfer to: [facility] (units unknown) (unknown) (unknown) (no date) (unknown) (unknown) VTE (units unknown) (unknown) (unknown) (no date) (unknown) (unknown) Very soft bone, adequate reduction of the greater trochanter fracture, (units unknown) (unknown) (unknown) (no date) (unknown) (unknown) Visit Report/Dischar ge Packet (units unknown) (unknown) (unknown) (no date) (unknown) (unknown) Vital Signs (units unknown) (unknown) (unknown) (no date) (unknown) (unknown) WBC 5.5 (units unknown) (unknown) (unknown) (no date) (unknown) (unknown) Weightbearing as tolerated to left leg with walker. Global hip precautions (units unknown) (unknown) (unknown) (no date) (unknown) (unknown) Maria Teresa Larsen PA-C [Primary Care Provider] (units unknown) (unknown) (unknown) (no date) (unknown) (unknown) [Embedded Image Not Available] (units unknown) (unknown) (unknown) (no date) (unknown) (unknown) abductor exercises because of trochanteric repair.? She should work to keep her (units unknown) (unknown) (unknown) (no date) (unknown) (unknown) acetaminophen 325 mg Tablet (units unknown) (unknown) (unknown) (no date) (unknown) (unknown) alcohol intake: current (units unknown) (unknown) (unknown) (no date) (unknown) (unknown) and repeat xrays.) (units unknown) (unknown) (unknown) (no date) (unknown) (unknown) arthroplasty.? Unfortunately she has had problems with instability and has a (units unknown) (unknown) (unknown) (no date) (unknown) (unknown) aspirin 81 mg Tablet,Delayed Release (Dr/Ec) (units unknown) (unknown) (unknown) (no date) (unknown) (unknown) atorvastatin 20 mg Tablet (units unknown) (unknown) (unknown) (no date) (unknown) (unknown) be replaced before discharge. Strength and sensation intact to bilateral lower (units unknown) (unknown) (unknown) (no date) (unknown) (unknown) becomes saturated inside. (units unknown) (unknown) (unknown) (no date) (unknown) (unknown) cables, 22 x +4 Oxinium femoral head with dual mobility 22 x 36 mm insert, (units unknown) (unknown) (unknown) (no date) (unknown) (unknown) cetirizine [Zyrtec] 10 mg Tablet (units unknown) (unknown) (unknown) (no date) (unknown) (unknown) comminuted slightly displaced trochanteric fracture, adequate stability after (units unknown) (unknown) (unknown) (no date) (unknown) (unknown) cords or masses. Lef t foot with moderate edema. (units unknown) (unknown) (unknown) (no date) (unknown) (unknown) docusate sodium 100 mg Capsule (units unknown) (unknown) (unknown) (no date) (unknown) (unknown) escitalopram oxalate 20 mg Tablet (units unknown) (unknown) (unknown) (no date) (unknown) (unknown) extremities. Bilater al calves soft, compressible, nontender with no palpable (units unknown) (unknown) (unknown) (no date) (unknown) (unknown) fever, night sweats, unusual drainage and unusual redness (units unknown) (unknown) (unknown) (no date) (unknown) (unknown) foot midline and sayra id hip flexion greater than 90?. ASA 81 mg BID for VTE (units unknown) (unknown) (unknown) (no date) (unknown) (unknown) for anesthesia as we ll as potential medical problems was discussed in detail. (units unknown) (unknown) (unknown) (no date) (unknown) (unknown) her trochanter, additional problems requiring additional operations and risks (units unknown) (unknown) (unknown) (no date) (unknown) (unknown) household members: spouse (units unknown) (unknown) (unknown) (no date) (unknown) (unknown) hydroxyzine pamoate [Vistaril] 25 mg capsule (units unknown) (unknown) (unknown) (no date) (unknown) (unknown) ibuprofen 400 mg Tablet (units unknown) (unknown) (unknown) (no date) (unknown) (unknown) intraoperative elena bandage with near-total saturation with serous fluid -will (units unknown) (unknown) (unknown) (no date) (unknown) (unknown) it. No bathing or otherwise soaking incision. Call the office if the dressing (units unknown) (unknown) (unknown) (no date) (unknown) (unknown) keep her foot midlin e and avoid hip flexion greater than 90?. (units unknown) (unknown) (unknown) (no date) (unknown) (unknown) left hip greater trochanter fracture.? She is brought to the operating room for (units unknown) (unknown) (unknown) (no date) (unknown) (unknown) length inequality, persistent instability, infection, failure to unite or heal (units unknown) (unknown) (unknown) (no date) (unknown) (unknown) omeprazole-sodium bicarbonate [Zegerid] 20-1.1 mg-gram Capsule (units unknown) (unknown) (unknown) (no date) (unknown) (unknown) oxycodone 5 mg Tablet (units unknown) (unknown) (unknown) (no date) (unknown) (unknown) physical therapy has been set up for her. She is looking forward to going home (units unknown) (unknown) (unknown) (no date) (unknown) (unknown) precautions (anterio r and posterior precautions) with full weight-bearing. (units unknown) (unknown) (unknown) (no date) (unknown) (unknown) prophylaxis. F/u in office in 2 weeks. (units unknown) (unknown) (unknown) (no date) (unknown) (unknown) reconstruction (units unknown) (unknown) (unknown) (no date) (unknown) (unknown) revision left total arthroplasty. (units unknown) (unknown) (unknown) (no date) (unknown) (unknown) revision total hip arthroplasty and ORIF of her greater trochanter fracture.? (units unknown) (unknown) (unknown) (no date) (unknown) (unknown) solifenacin [Vesicar e] 10 mg Tablet (units unknown) (unknown) (unknown) (no date) (unknown) (unknown) states physical therapy has been going well. She understands that home health (units unknown) (unknown) (unknown) (no date) (unknown) (unknown) today. Denies chest pain, shortness of breath, fever, chills. (units unknown) (unknown) (unknown) (no date) (unknown) (unknown) trochanter fracture (units unknown) (unknown) Result panel 1378 (unknown) (no date) (unknown) (unknown) Negative (units unknown) (unknown) (unknown) (no date) (unknown) (unknown) Negative (units unknown) (unknown) Result panel 1379 (unknown) (no date) (unknown) (unknown) (no value) (units unknown) (unknown) (unknown) (no date) (unknown) (unknown) No growth. (units unknown) (unknown) (unknown) (no date) (unknown) (unknown) No organisms seen (units unknown) (unknown) (unknown) (no date) (unknown) (unknown) No organisms seen (units unknown) (unknown) (unknown) (no date) (unknown) (unknown) Occasional WBC seen (units unknown) (unknown) Result panel 1380 (unknown) (no date) (unknown) (unknown) (no value) (units unknown) (unknown) (unknown) (no date) (unknown) (unknown) ADDENDUM (units unknown) (unknown) (unknown) (no date) (unknown) (unknown) 09/14/22 2037 (units unknown) (unknown) (unknown) (no date) (unknown) (unknown) 10/12/22 1854 (units unknown) (unknown) (unknown) (no date) (unknown) (unknown) 3151 (units unknown) (unknown) (unknown) (no date) (unknown) (unknown) A physician's fleet administrative assistant was used throughout the procedure to allow adequate (units unknown) (unknown) (unknown) (no date) (unknown) (unknown) Addendum Documented By: Annika River MD (units unknown) (unknown) (unknown) (no date) (unknown) (unknown) Addendum Signed By: <Electronically signed by Radha Silverio (units unknown) (unknown) (unknown) (no date) (unknown) (unknown) Age/Sex: 72 / F (units unknown) (unknown) (unknown) (no date) (unknown) (unknown) Anesthesia Type: General and Spinal (units unknown) (unknown) (unknown) (no date) (unknown) (unknown) [employer]: Nathalia Leos (units unknown) (unknown) (unknown) (no date) (unknown) (unknown) Blood products transfused: none (units unknown) (unknown) (unknown) (no date) (unknown) (unknown) Closure Type: primary (units unknown) (unknown) (unknown) (no date) (unknown) (unknown) Complications: none (units unknown) (unknown) (unknown) (no date) (unknown) (unknown) Condition: stable (units unknown) (unknown) (unknown) (no date) (unknown) (unknown) D> 10/12/22 1854 (units unknown) (unknown) (unknown) (no date) (unknown) (unknown) : 1950 Acct:[id number] (units unknown) (unknown) (unknown) (no date) (unknown) (unknown) Date of Service: 09/14/22 (units unknown) (unknown) (unknown) (no date) (unknown) (unknown) Date of procedure: 09/14/22 (units unknown) (unknown) (unknown) (no date) (unknown) (unknown) Disposition: Acute Care (units unknown) (unknown) (unknown) (no date) (unknown) (unknown) Estimated Blood Loss (mL): 250 (units unknown) (unknown) (unknown) (no date) (unknown) (unknown) Findings: (units unknown) (unknown) (unknown) (no date) (unknown) (unknown) Indications: (units unknown) (unknown) (unknown) (no date) (unknown) (unknown) [address] [address] (units unknown) (unknown) (unknown) (no date) (unknown) (unknown) Left total hip arthroplasty posterior approach (units unknown) (unknown) (unknown) (no date) (unknown) (unknown) Operative Date/Time/Diagnoses (units unknown) (unknown) (unknown) (no date) (unknown) (unknown) Operative Note (units unknown) (unknown) (unknown) (no date) (unknown) (unknown) Operative Notes (units unknown) (unknown) (unknown) (no date) (unknown) (unknown) Patient: Barbara Garcia MR#: [id number] (units unknown) (unknown) (unknown) (no date) (unknown) (unknown) Plan for aftercare: (units unknown) (unknown) (unknown) (no date) (unknown) (unknown) Post-op diagnosis: same (units unknown) (unknown) (unknown) (no date) (unknown) (unknown) Post-operative (units unknown) (unknown) (unknown) (no date) (unknown) (unknown) Pre-op diagnosis: Le ft hip OA (units unknown) (unknown) (unknown) (no date) (unknown) (unknown) Procedure + Clinicians (units unknown) (unknown) (unknown) (no date) (unknown) (unknown) Procedure in detail: (units unknown) (unknown) (unknown) (no date) (unknown) (unknown) Procedure: (units unknown) (unknown) (unknown) (no date) (unknown) (unknown) Prosthetic devices, grafts, tissues, transplants, or devices: (units unknown) (unknown) (unknown) (no date) (unknown) (unknown) Provider: Willis River MD (units unknown) (unknown) (unknown) (no date) (unknown) (unknown) Retractors were plac ed around the femur. The canal was opened with a box (units unknown) (unknown) (unknown) (no date) (unknown) (unknown) Retractors were plac ed to expose the acetabulum. The labrum and central soft (units unknown) (unknown) (unknown) (no date) (unknown) (unknown) Risks discussed included, but were not limited to, failure to relieve pain, leg (units unknown) (unknown) (unknown) (no date) (unknown) (unknown) Same procedure as scheduled: Yes (units unknown) (unknown) (unknown) (no date) (unknown) (unknown) Severe left hip osteoarthritis, adequate stability (units unknown) (unknown) (unknown) (no date) (unknown) (unknown) Signed By:<Electronically signed by Annika River MD> (units unknown) (unknown) (unknown) (no date) (unknown) (unknown) Mirian mendez size 6 standard offset, neutral poly liner,two 6.5 mm (units unknown) (unknown) (unknown) (no date) (unknown) (unknown) Specimen(s): none sent (units unknown) (unknown) (unknown) (no date) (unknown) (unknown) Surgeon: Annika River (units unknown) (unknown) (unknown) (no date) (unknown) (unknown) The acetabular liner was impacted into position. The final stem was then (units unknown) (unknown) (unknown) (no date) (unknown) (unknown) The broach was place d in the canal. A trial head and neck were then placed and (units unknown) (unknown) (unknown) (no date) (unknown) (unknown) The capsulomuscular flap was then repaired to the greater trochanter though an (units unknown) (unknown) (unknown) (no date) (unknown) (unknown) The hip was approach ed through an approximately 20 cm incision centered over the (units unknown) (unknown) (unknown) (no date) (unknown) (unknown) The patient has had progressively worsening left hip pain with radiographic (units unknown) (unknown) (unknown) (no date) (unknown) (unknown) The patient was seen in the pre-operative area, where the patient identified the (units unknown) (unknown) (unknown) (no date) (unknown) (unknown) The patient will be maintained on a standard total hip replacement protocol with (units unknown) (unknown) (unknown) (no date) (unknown) (unknown) Time of procedure: 16:30 (units unknown) (unknown) (unknown) (no date) (unknown) (unknown) alternatives to surgery were discussed with the patient prior to proceeding. (units unknown) (unknown) (unknown) (no date) (unknown) (unknown) and , as well a s the potential need for eventual revision of the (units unknown) (unknown) (unknown) (no date) (unknown) (unknown) and draped through sterile drapes. (units unknown) (unknown) (unknown) (no date) (unknown) (unknown) appropriate anteversion guides. It was further stabilized with two screws. A (units unknown) (unknown) (unknown) (no date) (unknown) (unknown) awl hole using the t ag sutures. The short external rotators were repaired with a (units unknown) (unknown) (unknown) (no date) (unknown) (unknown) barbed sutures and SteriStrips. An Aquacel Ag dressing was applied and the (units unknown) (unknown) (unknown) (no date) (unknown) (unknown) changes consistent with arthritis. Non-operative management has failed and the (units unknown) (unknown) (unknown) (no date) (unknown) (unknown) chili pepper broach was then used, followed by sequential broaching until there (units unknown) (unknown) (unknown) (no date) (unknown) (unknown) cleared of all material and the hip relocated one final time. (units unknown) (unknown) (unknown) (no date) (unknown) (unknown) components. She had a very tight which required meticulous intraoperative (units unknown) (unknown) (unknown) (no date) (unknown) (unknown) cutting osteotome, followed by a T handled reamer and a lateralizing reamer. The (units unknown) (unknown) (unknown) (no date) (unknown) (unknown) degrees flexion, internal rotation to 70? was possible before dislocation. This (units unknown) (unknown) (unknown) (no date) (unknown) (unknown) fascia mady was clos ed with Vicryl. The subcutaneous layer was closed with (units unknown) (unknown) (unknown) (no date) (unknown) (unknown) film confirmed the component position and no evidence of fracture. The patient (units unknown) (unknown) (unknown) (no date) (unknown) (unknown) greater trochanter a nd curving gently posteriorly as it went proximally. This (units unknown) (unknown) (unknown) (no date) (unknown) (unknown) impacted into the prepared femoral canal. A brief Betadine soak was performed (units unknown) (unknown) (unknown) (no date) (unknown) (unknown) increments, then 1 m m increments until good bite was obtained with an odd sized (units unknown) (unknown) (unknown) (no date) (unknown) (unknown) left hip as the operative site and this was marked with my initials. The patient (units unknown) (unknown) (unknown) (no date) (unknown) (unknown) length discrepancy, dislocation, stiffness, infection, nerve damage, deep venous (units unknown) (unknown) (unknown) (no date) (unknown) (unknown) neck osteotomy performed approximately 15 mm above the lesser trochanter. (units unknown) (unknown) (unknown) (no date) (unknown) (unknown) nonabsorbable suture . A deep drain was placed and brought out anteriorly. The (units unknown) (unknown) (unknown) (no date) (unknown) (unknown) patient has requeste d total hip replacement. The risks, benefits and (units unknown) (unknown) (unknown) (no date) (unknown) (unknown) patient was taken to recovery having tolerated the procedure well. (units unknown) (unknown) (unknown) (no date) (unknown) (unknown) patient will be discharged home when safe for the home environment. (units unknown) (unknown) (unknown) (no date) (unknown) (unknown) placed on the operative table in the right lateral decubitus position after (units unknown) (unknown) (unknown) (no date) (unknown) (unknown) positioning. Her obesity also contributed to the complexity of the case (units unknown) (unknown) (unknown) (no date) (unknown) (unknown) prepared from the ankle to the iliac crest with ChloroPrep in the usual fashion (units unknown) (unknown) (unknown) (no date) (unknown) (unknown) prosthetic. (units unknown) (unknown) (unknown) (no date) (unknown) (unknown) range of motion with 45 degrees internal rotation without dislocation. At 90 (units unknown) (unknown) (unknown) (no date) (unknown) (unknown) reamer. The cup 1 mm larger than the last reamer was then inserted using the (units unknown) (unknown) (unknown) (no date) (unknown) (unknown) receive Aspirin and sequential compression devices for DVT prophylaxis. The (units unknown) (unknown) (unknown) (no date) (unknown) (unknown) received pre-operati ve antibiotics and was taken to the operating room and (units unknown) (unknown) (unknown) (no date) (unknown) (unknown) saline. Finally the femoral head was impacted onto the stem. The acetabulum was (units unknown) (unknown) (unknown) (no date) (unknown) (unknown) satisfactory anesthesia. A time clock mechanic out was performed. The left leg was (units unknown) (unknown) (unknown) (no date) (unknown) (unknown) screws, R3 46, size 28 x -3 cobalt chrome head (units unknown) (unknown) (unknown) (no date) (unknown) (unknown) self retaining retractor. The trochanteric bursa was excised with care being (units unknown) (unknown) (unknown) (no date) (unknown) (unknown) taken to avoid the sciatic nerve, which was identified and protected throughout (units unknown) (unknown) (unknown) (no date) (unknown) (unknown) the case. The short external rotators were incised and the capsulomuscular flap (units unknown) (unknown) (unknown) (no date) (unknown) (unknown) the hip relocated an d checked for leg length and stability. An intraoperative (units unknown) (unknown) (unknown) (no date) (unknown) (unknown) thrombosis, pulmonar y embolism, stroke, coma, heart attack, permanent paralysis (units unknown) (unknown) (unknown) (no date) (unknown) (unknown) tissues were removed . Reaming was performed initially going up in 2 mm (units unknown) (unknown) (unknown) (no date) (unknown) (unknown) trial neutral liner was placed. (units unknown) (unknown) (unknown) (no date) (unknown) (unknown) trials were removed. (units unknown) (unknown) (unknown) (no date) (unknown) (unknown) visualization of the femoral canal an intraoperative positioning of the (units unknown) (unknown) (unknown) (no date) (unknown) (unknown) was carried sharply to the fascia mady, which was divided and retracted with a (units unknown) (unknown) (unknown) (no date) (unknown) (unknown) was felt to be satisfactory and the appropriate components were opened, and the (units unknown) (unknown) (unknown) (no date) (unknown) (unknown) was good stability o f the broach in the femur. (units unknown) (unknown) (unknown) (no date) (unknown) (unknown) was raised and tagge d for later repair. The hip was dislocated, and a femoral (units unknown) (unknown) (unknown) (no date) (unknown) (unknown) was stable in the position of sleep, of squatting, and could be put through a (units unknown) (unknown) (unknown) (no date) (unknown) (unknown) weight bearing as tolerated and posterior hip precautions. The patient will (units unknown) (unknown) (unknown) (no date) (unknown) (unknown) while trialing with head options. The hip was meticulously irrigated with normal (units unknown) (unknown) Result panel [id number] (unknown) (no date) (unknown) (unknown) (no value) (units unknown) (unknown) (unknown) (no date) (unknown) (unknown) #90 tabs (units unknown) (unknown) (unknown) (no date) (unknown) (unknown) <Electronically sign ed by Galina Thapa D.O.> (units unknown) (unknown) (unknown) (no date) (unknown) (unknown) (4-6) #60 tabs (units unknown) (unknown) (unknown) (no date) (unknown) (unknown) (Vistaril) caps (units unknown) (unknown) (unknown) (no date) (unknown) (unknown) (Zegerid) (units unknown) (unknown) (unknown) (no date) (unknown) (unknown) + for hip dislocation. (units unknown) (unknown) (unknown) (no date) (unknown) (unknown) 09/14/22 (units unknown) (unknown) (unknown) (no date) (unknown) (unknown) 09/27/22 Range/Units (units unknown) (unknown) (unknown) (no date) (unknown) (unknown) 09/27/22 (units unknown) (unknown) (unknown) (no date) (unknown) (unknown) 10/14/22 0806 (units unknown) (unknown) (unknown) (no date) (unknown) (unknown) 03/15/22 (units unknown) (unknown) (unknown) (no date) (unknown) (unknown) [address] [place] [address] (units unknown) (unknown) (unknown) (no date) (unknown) (unknown) 15:00 09/27/22 (units unknown) (unknown) (unknown) (no date) (unknown) (unknown) 15:39 09/27/22 (units unknown) (unknown) (unknown) (no date) (unknown) (unknown) 15:45 (units unknown) (unknown) (unknown) (no date) (unknown) (unknown) 15:56 09/27/22 (units unknown) (unknown) (unknown) (no date) (unknown) (unknown) 15:56 (units unknown) (unknown) (unknown) (no date) (unknown) (unknown) 16:00 09/27/22 (units unknown) (unknown) (unknown) (no date) (unknown) (unknown) 16:01 09/27/22 (units unknown) (unknown) (unknown) (no date) (unknown) (unknown) 16:01 (units unknown) (unknown) (unknown) (no date) (unknown) (unknown) 16:21 09/27/22 (units unknown) (unknown) (unknown) (no date) (unknown) (unknown) 16:21 (units unknown) (unknown) (unknown) (no date) (unknown) (unknown) 16:26 09/27/22 (units unknown) (unknown) (unknown) (no date) (unknown) (unknown) 16:26 (units unknown) (unknown) (unknown) (no date) (unknown) (unknown) 16:30 09/27/22 (units unknown) (unknown) (unknown) (no date) (unknown) (unknown) 16:32 09/27/22 (units unknown) (unknown) (unknown) (no date) (unknown) (unknown) 16:32 (units unknown) (unknown) (unknown) (no date) (unknown) (unknown) 16:35 09/27/22 (units unknown) (unknown) (unknown) (no date) (unknown) (unknown) 16:38 09/27/22 (units unknown) (unknown) (unknown) (no date) (unknown) (unknown) 16:40 09/27/22 (units unknown) (unknown) (unknown) (no date) (unknown) (unknown) 16:40 (units unknown) (unknown) (unknown) (no date) (unknown) (unknown) 16:45 09/27/22 (units unknown) (unknown) (unknown) (no date) (unknown) (unknown) 16:45 (units unknown) (unknown) (unknown) (no date) (unknown) (unknown) 16:50 09/27/22 (units unknown) (unknown) (unknown) (no date) (unknown) (unknown) 16:55 09/27/22 (units unknown) (unknown) (unknown) (no date) (unknown) (unknown) 16:55 (units unknown) (unknown) (unknown) (no date) (unknown) (unknown) 17:00 09/27/22 (units unknown) (unknown) (unknown) (no date) (unknown) (unknown) 17:00 (units unknown) (unknown) (unknown) (no date) (unknown) (unknown) 17:05 09/27/22 (units unknown) (unknown) (unknown) (no date) (unknown) (unknown) 17:10 09/27/22 (units unknown) (unknown) (unknown) (no date) (unknown) (unknown) 17:10 (units unknown) (unknown) (unknown) (no date) (unknown) (unknown) 17:15 09/27/22 (units unknown) (unknown) (unknown) (no date) (unknown) (unknown) 17:15 (units unknown) (unknown) (unknown) (no date) (unknown) (unknown) 17:20 09/27/22 (units unknown) (unknown) (unknown) (no date) (unknown) (unknown) 17:26 (units unknown) (unknown) (unknown) (no date) (unknown) (unknown) 3151 (units unknown) (unknown) (unknown) (no date) (unknown) (unknown) ? (units unknown) (unknown) (unknown) (no date) (unknown) (unknown) ABDOMEN: Soft, nontender. Normoactive bowel sounds all 4 quadrants. No (units unknown) (unknown) (unknown) (no date) (unknown) (unknown) ASA Class: II (units unknown) (unknown) (unknown) (no date) (unknown) (unknown) Accession Number: [id number] ?? (units unknown) (unknown) (unknown) (no date) (unknown) (unknown) Acct:[id number] (units unknown) (unknown) (unknown) (no date) (unknown) (unknown) Acetaminophen (Acetaminophen 325 Mg Tablet) 650 mg PO Q6H PRN (units unknown) (unknown) (unknown) (no date) (unknown) (unknown) Admin: 09/27/22 17:1 0 Dose: 100 mls/hr (units unknown) (unknown) (unknown) (no date) (unknown) (unknown) Admin: 09/27/22 19:1 3 Dose: 42 mls/hr (units unknown) (unknown) (unknown) (no date) (unknown) (unknown) Admin: 09/27/22 20:4 8 Dose: 81 mg (units unknown) (unknown) (unknown) (no date) (unknown) (unknown) Admit Date/Time: 09/27/22 17:28 (units unknown) (unknown) (unknown) (no date) (unknown) (unknown) Admit Provider: Carolee Paulino (units unknown) (unknown) (unknown) (no date) (unknown) (unknown) Age/Sex: 72 / F (units unknown) (unknown) (unknown) (no date) (unknown) (unknown) Allergies (units unknown) (unknown) (unknown) (no date) (unknown) (unknown) Allergy/AdvReac Type Severity Reaction Status Date / Time (units unknown) (unknown) (unknown) (no date) (unknown) (unknown) [place] [address] (units unknown) (unknown) (unknown) (no date) (unknown) (unknown) Approved by: Urvashi Ny M.D. on 09/27/2022 at 16:56?? (units unknown) (unknown) (unknown) (no date) (unknown) (unknown) Aspirin (Aspirin Ec 81 Mg Tablet) 81 mg PO BID MINDI (units unknown) (unknown) (unknown) (no date) (unknown) (unknown) Atorvastatin Calcium (Atorvastatin 20 Mg Tablet) 20 mg PO BEDTIME MINDI (units unknown) (unknown) (unknown) (no date) (unknown) (unknown) Attempted procedural sedation with left hip reduction after discussion with (units unknown) (unknown) (unknown) (no date) (unknown) (unknown) Blood Pressure 131/65 (units unknown) (unknown) (unknown) (no date) (unknown) (unknown) Blood Pressure 138/7 0 158/81 H (units unknown) (unknown) (unknown) (no date) (unknown) (unknown) Blood Pressure 142/7 5 H (units unknown) (unknown) (unknown) (no date) (unknown) (unknown) Blood Pressure 153/7 2 H 09/27/22 15:00 (units unknown) (unknown) (unknown) (no date) (unknown) (unknown) Blood Pressure 153/7 2 H (units unknown) (unknown) (unknown) (no date) (unknown) (unknown) Blood Pressure 153/8 1 H (units unknown) (unknown) (unknown) (no date) (unknown) (unknown) Blood Pressure 154/7 9 H (units unknown) (unknown) (unknown) (no date) (unknown) (unknown) Blood Pressure 155/8 2 H 157/84 H (units unknown) (unknown) (unknown) (no date) (unknown) (unknown) Blood Pressure 156/7 9 H 146/76 H (units unknown) (unknown) (unknown) (no date) (unknown) (unknown) Blood Pressure 159/7 5 H (units unknown) (unknown) (unknown) (no date) (unknown) (unknown) Blood Pressure 160/9 9 H 152/68 H (units unknown) (unknown) (unknown) (no date) (unknown) (unknown) Blood Pressure 166/9 3 H (units unknown) (unknown) (unknown) (no date) (unknown) (unknown) Blood Pressure 174/8 2 H (units unknown) (unknown) (unknown) (no date) (unknown) (unknown) Blood Pressure 197/8 4 H (units unknown) (unknown) (unknown) (no date) (unknown) (unknown) Bones:? There remain s superior dislocation of the left hip arthroplasty.? No (units unknown) (unknown) (unknown) (no date) (unknown) (unknown) CARDIOVASCULAR: Regular rate and rhythm without murmurs, rubs or gallops. (units unknown) (unknown) (unknown) (no date) (unknown) (unknown) COMPARISON:[facility], CR, XR HIP W PEL IF DONE LT 2V, 09/27/2022, 15:02. (units unknown) (unknown) (unknown) (no date) (unknown) (unknown) Chief complaint: Extremity Problem,Nontraumatic (units unknown) (unknown) (unknown) (no date) (unknown) (unknown) Urvashi Ny (units unknown) (unknown) (unknown) (no date) (unknown) (unknown) Clinical Impression: (units unknown) (unknown) (unknown) (no date) (unknown) (unknown) Close (units unknown) (unknown) (unknown) (no date) (unknown) (unknown) Complications: hypoventilation (hypoxia) (units unknown) (unknown) (unknown) (no date) (unknown) (unknown) Consent signed: Yes (units unknown) (unknown) (unknown) (no date) (unknown) (unknown) Course (units unknown) (unknown) (unknown) (no date) (unknown) (unknown) Covid swab is negative. (units unknown) (unknown) (unknown) (no date) (unknown) (unknown) : 1950 Acct:[id number] (units unknown) (unknown) (unknown) (no date) (unknown) (unknown) : 1950 (units unknown) (unknown) (unknown) (no date) (unknown) (unknown) Date of Service: 09/27/22 (units unknown) (unknown) (unknown) (no date) (unknown) (unknown) Departure (units unknown) (unknown) (unknown) (no date) (unknown) (unknown) Depression (units unknown) (unknown) (unknown) (no date) (unknown) (unknown) Dictated by: Urvashi Ny M.D. on 09/27/2022 at 16:55 ? ? (units unknown) (unknown) (unknown) (no date) (unknown) (unknown) Discharge Plan (units unknown) (unknown) (unknown) (no date) (unknown) (unknown) Discontinued Medications (units unknown) (unknown) (unknown) (no date) (unknown) (unknown) Dislocation, hip closed (units unknown) (unknown) (unknown) (no date) (unknown) (unknown) Diverticulitis (units unknown) (unknown) (unknown) (no date) (unknown) (unknown) Documented By: AW (units unknown) (unknown) (unknown) (no date) (unknown) (unknown) Documented By: CG (units unknown) (unknown) (unknown) (no date) (unknown) (unknown) Documented By: KM (units unknown) (unknown) (unknown) (no date) (unknown) (unknown) Documented By: MM (units unknown) (unknown) (unknown) (no date) (unknown) (unknown) Documented By: SPF (units unknown) (unknown) (unknown) (no date) (unknown) (unknown) Docusate Sodium (Docusate 100 Mg Capsule) 100 mg PO BID PRN (units unknown) (unknown) (unknown) (no date) (unknown) (unknown) ED Sedation Level: Moderate (Concious) (units unknown) (unknown) (unknown) (no date) (unknown) (unknown) ER Physician: Galina Thapa D.O. (units unknown) (unknown) (unknown) (no date) (unknown) (unknown) EXTREMITIES: Decreas ed range of motion of the left hip, patient has good (units unknown) (unknown) (unknown) (no date) (unknown) (unknown) Emergency Report (units unknown) (unknown) (unknown) (no date) (unknown) (unknown) Escitalopram Oxalate (Escitalopram 10 Mg Tablet) 20 mg PO DAILY MINDI (units unknown) (unknown) (unknown) (no date) (unknown) (unknown) Exam Narrative: (units unknown) (unknown) (unknown) (no date) (unknown) (unknown) Exam (units unknown) (unknown) (unknown) (no date) (unknown) (unknown) Extra Strength) (units unknown) (unknown) (unknown) (no date) (unknown) (unknown) Extremity x-ray #1: (units unknown) (unknown) (unknown) (no date) (unknown) (unknown) Extremity x-ray #2: (units unknown) (unknown) (unknown) (no date) (unknown) (unknown) FINDINGS:? (units unknown) (unknown) (unknown) (no date) (unknown) (unknown) GENERAL: Alert and oriented x three, elderly female in moderate distress. (units unknown) (unknown) (unknown) (no date) (unknown) (unknown) GERD (gastroesophage al reflux disease) (units unknown) (unknown) (unknown) (no date) (unknown) (unknown) : No CVA tenderness (units unknown) (unknown) (unknown) (no date) (unknown) (unknown) General (units unknown) (unknown) (unknown) (no date) (unknown) (unknown) HEENT: Head normocephalic, atraumatic, EOMI, pupils reactive, face symmetric, (units unknown) (unknown) (unknown) (no date) (unknown) (unknown) HLD (hyperlipidemia) (units unknown) (unknown) (unknown) (no date) (unknown) (unknown) HPI - Extremity Problem (units unknown) (unknown) (unknown) (no date) (unknown) (unknown) HPI Narrative: (units unknown) (unknown) (unknown) (no date) (unknown) (unknown) Hearing impaired (units unknown) (unknown) (unknown) (no date) (unknown) (unknown) Hip X-Ray (Signed) (units unknown) (unknown) (unknown) (no date) (unknown) (unknown) History of Present Illness (units unknown) (unknown) (unknown) (no date) (unknown) (unknown) History of bladder surgery (units unknown) (unknown) (unknown) (no date) (unknown) (unknown) History of total lef t knee replacement (units unknown) (unknown) (unknown) (no date) (unknown) (unknown) History of total rig ht knee replacement (units unknown) (unknown) (unknown) (no date) (unknown) (unknown) Home Medications (units unknown) (unknown) (unknown) (no date) (unknown) (unknown) Hx of left breast biopsy (units unknown) (unknown) (unknown) (no date) (unknown) (unknown) Hx of right breast biopsy (units unknown) (unknown) (unknown) (no date) (unknown) (unknown) Hx of tonsillectomy (units unknown) (unknown) (unknown) (no date) (unknown) (unknown) Hydromorphone HCl (Hydromorphone 1 Mg Inj) 0.2 mg IV Q1H PRN (units unknown) (unknown) (unknown) (no date) (unknown) (unknown) Hydromorphone HCl (Hydromorphone 1 Mg Inj) 1 mg IV Q3H PRN (units unknown) (unknown) (unknown) (no date) (unknown) (unknown) IMPRESSION:? Unchang ed appearance of dislocated left hip prosthesis.? No (units unknown) (unknown) (unknown) (no date) (unknown) (unknown) INDICATIONS:? relocation (units unknown) (unknown) (unknown) (no date) (unknown) (unknown) IV Propofol dose (mg ): 150 (units unknown) (unknown) (unknown) (no date) (unknown) (unknown) Ibuprofen (Ibuprofen 400 Mg Tablet) 400 mg PO Q4H PRN (units unknown) (unknown) (unknown) (no date) (unknown) (unknown) Imaging Data (units unknown) (unknown) (unknown) (no date) (unknown) (unknown) Indication: fracture/dislocation reduction (units unknown) (unknown) (unknown) (no date) (unknown) (unknown) Infusion: 09/27/22 17:35 Dose: 0 mls/hr (units unknown) (unknown) (unknown) (no date) (unknown) (unknown) Initial Vital Signs (units unknown) (unknown) (unknown) (no date) (unknown) (unknown) Initial Vital Signs: (units unknown) (unknown) (unknown) (no date) (unknown) (unknown) Interventions: Airwa y repositioned, Assist by BVM and Oxygen applied (units unknown) (unknown) (unknown) (no date) (unknown) (unknown) [address] [address] (units unknown) (unknown) (unknown) (no date) (unknown) (unknown) [facility] (units unknown) (unknown) (unknown) (no date) (unknown) (unknown) Joint #1: (units unknown) (unknown) (unknown) (no date) (unknown) (unknown) Joint Aspiration/Injection (Signed) (units unknown) (unknown) (unknown) (no date) (unknown) (unknown) Joint Reduction Location: hip (units unknown) (unknown) (unknown) (no date) (unknown) (unknown) Melvin,Mani (units unknown) (unknown) (unknown) (no date) (unknown) (unknown) Lab Data (units unknown) (unknown) (unknown) (no date) (unknown) (unknown) Lab Results (units unknown) (unknown) (unknown) (no date) (unknown) (unknown) Labs: (units unknown) (unknown) (unknown) (no date) (unknown) (unknown) Lactated Ringer's (Lactated Ringers) 1,000 mls @ 42 mls/hr IV CONT MINDI (units unknown) (unknown) (unknown) (no date) (unknown) (unknown) Last Admin: 09/27/22 15:41 Dose: 4 mg (units unknown) (unknown) (unknown) (no date) (unknown) (unknown) Last Admin: 09/27/22 16:31 Dose: 150 mg (units unknown) (unknown) (unknown) (no date) (unknown) (unknown) Last Admin: 09/27/22 17:01 Dose: 1 mg (units unknown) (unknown) (unknown) (no date) (unknown) (unknown) Last Admin: 09/27/22 17:16 Dose: Not Given (units unknown) (unknown) (unknown) (no date) (unknown) (unknown) Last Admin: 09/27/22 17:27 Dose: 0.5 mg (units unknown) (unknown) (unknown) (no date) (unknown) (unknown) Last Admin: 09/27/22 20:47 Dose: 100 mg (units unknown) (unknown) (unknown) (no date) (unknown) (unknown) Last Admin: 09/27/22 20:47 Dose: 400 mg (units unknown) (unknown) (unknown) (no date) (unknown) (unknown) Last Admin: 09/27/22 20:47 Dose: 42 mls/hr (units unknown) (unknown) (unknown) (no date) (unknown) (unknown) Last Admin: 09/27/22 20:48 Dose: 0.2 mg (units unknown) (unknown) (unknown) (no date) (unknown) (unknown) Last Admin: 09/27/22 20:48 Dose: 20 mg (units unknown) (unknown) (unknown) (no date) (unknown) (unknown) Last Admin: 09/28/22 08:35 Dose: 10 mg (units unknown) (unknown) (unknown) (no date) (unknown) (unknown) Last Admin: 09/28/22 08:35 Dose: 20 mg (units unknown) (unknown) (unknown) (no date) (unknown) (unknown) Last Admin: 09/28/22 08:35 Dose: 81 mg (units unknown) (unknown) (unknown) (no date) (unknown) (unknown) Last Admin: 09/28/22 08:38 Dose: 650 mg (units unknown) (unknown) (unknown) (no date) (unknown) (unknown) Last Infusion: 09/27/22 18:04 Dose: 0 mls/hr (units unknown) (unknown) (unknown) (no date) (unknown) (unknown) Last Infusion: 09/27/22 20:12 Dose: 42 mls/hr (units unknown) (unknown) (unknown) (no date) (unknown) (unknown) Launch?Image (units unknown) (unknown) (unknown) (no date) (unknown) (unknown) Antonio Perera (units unknown) (unknown) (unknown) (no date) (unknown) (unknown) Loc: ED (units unknown) (unknown) (unknown) (no date) (unknown) (unknown) Loratadine (Loratadi ne 10 Mg Tablet) 10 mg PO DAILY PRN (units unknown) (unknown) (unknown) (no date) (unknown) (unknown) Lorazepam (Lorazepam 2 Mg/Ml Inj) 0.5 mg IV NOW ONE (units unknown) (unknown) (unknown) (no date) (unknown) (unknown) MDM - Extremity (Nontraumatic) (units unknown) (unknown) (unknown) (no date) (unknown) (unknown) MDM Narrative (units unknown) (unknown) (unknown) (no date) (unknown) (unknown) MR#: [id number] (units unknown) (unknown) (unknown) (no date) (unknown) (unknown) Mallampati Airway Classification: Class II (units unknown) (unknown) (unknown) (no date) (unknown) (unknown) Medical History (units unknown) (unknown) (unknown) (no date) (unknown) (unknown) Medical decision making narrative: (units unknown) (unknown) (unknown) (no date) (unknown) (unknown) Medication Instructions Recorded Confirmed (units unknown) (unknown) (unknown) (no date) (unknown) (unknown) Medication Instructions Recorded (units unknown) (unknown) (unknown) (no date) (unknown) (unknown) Mode of arrival: EMS (units unknown) (unknown) (unknown) (no date) (unknown) (unknown) Morphine Sulfate (Morphine 4 Mg/Ml Inj) 4 mg IV NOW ONE (units unknown) (unknown) (unknown) (no date) (unknown) (unknown) My Impression: (units unknown) (unknown) (unknown) (no date) (unknown) (unknown) NECK: Supple, full range of motion (units unknown) (unknown) (unknown) (no date) (unknown) (unknown) NEUROLOGICAL: Crania l nerves II through XII grossly intact. Moving all (units unknown) (unknown) (unknown) (no date) (unknown) (unknown) Naloxone HCl (Naloxo ne 0.4 Mg/Ml Vial) 0.2 mg IV Q2MIN PRN (units unknown) (unknown) (unknown) (no date) (unknown) (unknown) Narrative (units unknown) (unknown) (unknown) (no date) (unknown) (unknown) No Known Drug Allergies Allergy Verified 10/02/22 18:28 (units unknown) (unknown) (unknown) (no date) (unknown) (unknown) Ondansetron HCl (Ondansetron 4 Mg Odt) 4 mg PO Q4HR PRN (units unknown) (unknown) (unknown) (no date) (unknown) (unknown) Ondansetron HCl (Ondansetron 4 Mg/2 Ml Inj) 4 mg IV Q6HR PRN (units unknown) (unknown) (unknown) (no date) (unknown) (unknown) Ordered: (units unknown) (unknown) (unknown) (no date) (unknown) (unknown) Ordering Provider: Galina Thapa D.O. (units unknown) (unknown) (unknown) (no date) (unknown) (unknown) Orders (units unknown) (unknown) (unknown) (no date) (unknown) (unknown) Orthopedic Joint Reduction (units unknown) (unknown) (unknown) (no date) (unknown) (unknown) Orthopedic surgery, Dr. Paulino. Discussed patient is just under 2 weeks out (units unknown) (unknown) (unknown) (no date) (unknown) (unknown) Orthopedic surgery. Patient was very difficult to sedate but would drop her O2 (units unknown) (unknown) (unknown) (no date) (unknown) (unknown) Osteoarthritis (units unknown) (unknown) (unknown) (no date) (unknown) (unknown) Oxybutynin Chloride (Oxybutynin 5 Mg Er Tab) 10 mg PO DAILY MINDI (units unknown) (unknown) (unknown) (no date) (unknown) (unknown) Oxycodone HCl (Oxycodone Ir 10 Mg Tablet) 10 mg PO Q3HR PRN (units unknown) (unknown) (unknown) (no date) (unknown) (unknown) Oxycodone HCl (Oxycodone Ir 5 Mg Tablet) 5 mg PO Q3HR PRN (units unknown) (unknown) (unknown) (no date) (unknown) (unknown) Oxygen Delivery Meth od Ambu Bag Ambu Bag (units unknown) (unknown) (unknown) (no date) (unknown) (unknown) Oxygen Delivery Meth od Nasal Cannula Nasal Cannula (units unknown) (unknown) (unknown) (no date) (unknown) (unknown) Oxygen Delivery Meth od Nasal Cannula (units unknown) (unknown) (unknown) (no date) (unknown) (unknown) Oxygen Delivery Meth od Room Air 09/27/22 15:00 (units unknown) (unknown) (unknown) (no date) (unknown) (unknown) Oxygen Delivery Meth od Room Air Nasal Cannula (units unknown) (unknown) (unknown) (no date) (unknown) (unknown) Oxygen Delivery Meth od Room Air (units unknown) (unknown) (unknown) (no date) (unknown) (unknown) Oxygen Delivery Method (units unknown) (unknown) (unknown) (no date) (unknown) (unknown) Oxygen Flow Rate 15 15 (units unknown) (unknown) (unknown) (no date) (unknown) (unknown) Oxygen Flow Rate 2 2 (units unknown) (unknown) (unknown) (no date) (unknown) (unknown) Oxygen Flow Rate 2 (units unknown) (unknown) (unknown) (no date) (unknown) (unknown) Oxygen Flow Rate 6 6 (units unknown) (unknown) (unknown) (no date) (unknown) (unknown) Oxygen Flow Rate 6 (units unknown) (unknown) (unknown) (no date) (unknown) (unknown) Oxygen Flow Rate (units unknown) (unknown) (unknown) (no date) (unknown) (unknown) PRN Reason: Allergic Symptoms (units unknown) (unknown) (unknown) (no date) (unknown) (unknown) PRN Reason: Nausea A nd Vomiting (units unknown) (unknown) (unknown) (no date) (unknown) (unknown) PRN Reason: Opiate Reversal (units unknown) (unknown) (unknown) (no date) (unknown) (unknown) PRN Reason: Pain, Mi ld (1-3) (units unknown) (unknown) (unknown) (no date) (unknown) (unknown) PRN Reason: Pain, Moderate (4-6) (units unknown) (unknown) (unknown) (no date) (unknown) (unknown) PRN Reason: Pain/inflammation (units unknown) (unknown) (unknown) (no date) (unknown) (unknown) PRN Reason: constipation (units unknown) (unknown) (unknown) (no date) (unknown) (unknown) PRN Reason: fever or pain (units unknown) (unknown) (unknown) (no date) (unknown) (unknown) PROCEDURE:? XR HIP W PEL IF DONE LT 2V (units unknown) (unknown) (unknown) (no date) (unknown) (unknown) Pain/inflammation #9 0 tabs (units unknown) (unknown) (unknown) (no date) (unknown) (unknown) Pantoprazole Sodium (Pantoprazole Dr 20 Mg Tablet) 20 mg PO DAILY MINDI (units unknown) (unknown) (unknown) (no date) (unknown) (unknown) Patient Disposition: Admitted as Observation (units unknown) (unknown) (unknown) (no date) (unknown) (unknown) Patient History (units unknown) (unknown) (unknown) (no date) (unknown) (unknown) Patient Tolerated Procedure: Well and No complications (units unknown) (unknown) (unknown) (no date) (unknown) (unknown) Patient: Barbara Garcia MR#: [id number] (units unknown) (unknown) (unknown) (no date) (unknown) (unknown) Patient: Selene Garcia (units unknown) (unknown) (unknown) (no date) (unknown) (unknown) Point of Care Testing (units unknown) (unknown) (unknown) (no date) (unknown) (unknown) Post Reduction X-Ray Obtained: Yes (units unknown) (unknown) (unknown) (no date) (unknown) (unknown) Post Reduction X-Ray Results: not reduced (units unknown) (unknown) (unknown) (no date) (unknown) (unknown) Post-reduction neuro exam: intact and no change (units unknown) (unknown) (unknown) (no date) (unknown) (unknown) Post-reduction vascular: intact and no change (units unknown) (unknown) (unknown) (no date) (unknown) (unknown) Test Resul ts Negative (units unknown) (unknown) (unknown) (no date) (unknown) (unknown) Preparation: rn cardiac cath applied, pulse oximeter, capnometry used, (units unknown) (unknown) (unknown) (no date) (unknown) (unknown) Previous Rx's (units unknown) (unknown) (unknown) (no date) (unknown) (unknown) Procedural Sedation (units unknown) (unknown) (unknown) (no date) (unknown) (unknown) Procedure: XR hip w pel if done LT 2V (units unknown) (unknown) (unknown) (no date) (unknown) (unknown) Procedures (units unknown) (unknown) (unknown) (no date) (unknown) (unknown) Propofol (Propofol 2 00 Mg/20 Ml Vial) 100 mg IV NOW ONE (units unknown) (unknown) (unknown) (no date) (unknown) (unknown) Propofol (Propofol 2 00 Mg/20 Ml Vial) 150 mg IV NOW ONE (units unknown) (unknown) (unknown) (no date) (unknown) (unknown) Pulse Oximetry 94 (units unknown) (unknown) (unknown) (no date) (unknown) (unknown) Pulse Oximetry 95 09/27/22 15:00 (units unknown) (unknown) (unknown) (no date) (unknown) (unknown) Pulse Oximetry 95 79 L (units unknown) (unknown) (unknown) (no date) (unknown) (unknown) Pulse Oximetry 95 95 (units unknown) (unknown) (unknown) (no date) (unknown) (unknown) Pulse Oximetry 95 99 99 (units unknown) (unknown) (unknown) (no date) (unknown) (unknown) Pulse Oximetry 95 (units unknown) (unknown) (unknown) (no date) (unknown) (unknown) Pulse Oximetry 96 99 (units unknown) (unknown) (unknown) (no date) (unknown) (unknown) Pulse Oximetry 97 97 (units unknown) (unknown) (unknown) (no date) (unknown) (unknown) Pulse Oximetry 98 97 (units unknown) (unknown) (unknown) (no date) (unknown) (unknown) Pulse Oximetry 98 98 (units unknown) (unknown) (unknown) (no date) (unknown) (unknown) Pulse Oximetry 98 (units unknown) (unknown) (unknown) (no date) (unknown) (unknown) Pulse Oximetry 99 99 (units unknown) (unknown) (unknown) (no date) (unknown) (unknown) Pulse Oximetry (units unknown) (unknown) (unknown) (no date) (unknown) (unknown) Pulse Rate 61 15:00 (units unknown) (unknown) (unknown) (no date) (unknown) (unknown) Pulse Rate 61 62 64 (units unknown) (unknown) (unknown) (no date) (unknown) (unknown) Pulse Rate 67 69 (units unknown) (unknown) (unknown) (no date) (unknown) (unknown) Pulse Rate 69 75 (units unknown) (unknown) (unknown) (no date) (unknown) (unknown) Pulse Rate 71 72 (units unknown) (unknown) (unknown) (no date) (unknown) (unknown) Pulse Rate 71 (units unknown) (unknown) (unknown) (no date) (unknown) (unknown) Pulse Rate 72 72 (units unknown) (unknown) (unknown) (no date) (unknown) (unknown) Pulse Rate 73 72 (units unknown) (unknown) (unknown) (no date) (unknown) (unknown) Pulse Rate 73 73 (units unknown) (unknown) (unknown) (no date) (unknown) (unknown) Pulse Rate 74 75 (units unknown) (unknown) (unknown) (no date) (unknown) (unknown) Pulse Rate 74 (units unknown) (unknown) (unknown) (no date) (unknown) (unknown) Pulse Rate (units unknown) (unknown) (unknown) (no date) (unknown) (unknown) RESPIRATORY: Breath sounds equal bilaterally, no wheezes rales or rhonchi. (units unknown) (unknown) (unknown) (no date) (unknown) (unknown) ROS Unobtainable: Al l systems reviewed + are unremarkable except as noted in HPI (units unknown) (unknown) (unknown) (no date) (unknown) (unknown) Radiologist's Impression: (units unknown) (unknown) (unknown) (no date) (unknown) (unknown) Related Data (units unknown) (unknown) (unknown) (no date) (unknown) (unknown) Respiratory Rate 16 09/27/22 15:00 (units unknown) (unknown) (unknown) (no date) (unknown) (unknown) Respiratory Rate 16 (units unknown) (unknown) (unknown) (no date) (unknown) (unknown) Respiratory Rate 18 21 (units unknown) (unknown) (unknown) (no date) (unknown) (unknown) Respiratory Rate 19 (units unknown) (unknown) (unknown) (no date) (unknown) (unknown) Respiratory Rate 23 21 (units unknown) (unknown) (unknown) (no date) (unknown) (unknown) Respiratory Rate 23 27 H (units unknown) (unknown) (unknown) (no date) (unknown) (unknown) Respiratory Rate 25 H (units unknown) (unknown) (unknown) (no date) (unknown) (unknown) Respiratory Rate 28 H (units unknown) (unknown) (unknown) (no date) (unknown) (unknown) Respiratory Rate 30 H 15 (units unknown) (unknown) (unknown) (no date) (unknown) (unknown) Respiratory Rate 30 H 26 H (units unknown) (unknown) (unknown) (no date) (unknown) (unknown) Respiratory Rate (units unknown) (unknown) (unknown) (no date) (unknown) (unknown) Review of Systems (units unknown) (unknown) (unknown) (no date) (unknown) (unknown) Isidro Govea (units unknown) (unknown) (unknown) (no date) (unknown) (unknown) SARS-CoV-2 (PCR) Negative (Negative) (units unknown) (unknown) (unknown) (no date) (unknown) (unknown) SKIN: Warm, dry, no petechiae, no rashes or lesions. (units unknown) (unknown) (unknown) (no date) (unknown) (unknown) Seasonal allergies (units unknown) (unknown) (unknown) (no date) (unknown) (unknown) Side: left (units unknown) (unknown) (unknown) (no date) (unknown) (unknown) Signed By: (units unknown) (unknown) (unknown) (no date) (unknown) (unknown) Signed (units unknown) (unknown) (unknown) (no date) (unknown) (unknown) Smoking Status: Carmenc[place] r smoker (units unknown) (unknown) (unknown) (no date) (unknown) (unknown) Social History (units unknown) (unknown) (unknown) (no date) (unknown) (unknown) Sodium Chloride (Normal Saline 0.9%) 1,000 mls @ 100 mls/hr IV CONT MINDI (units unknown) (unknown) (unknown) (no date) (unknown) (unknown) Soft tissues:? The visualized bowel gas pattern is normal.? No suspicious soft (units unknown) (unknown) (unknown) (no date) (unknown) (unknown) Source: patient and EMS (units unknown) (unknown) (unknown) (no date) (unknown) (unknown) Stated complaint: Lt Hip Pain (units unknown) (unknown) (unknown) (no date) (unknown) (unknown) Stop: 09/27/22 15:32 (units unknown) (unknown) (unknown) (no date) (unknown) (unknown) Stop: 09/27/22 16:11 (units unknown) (unknown) (unknown) (no date) (unknown) (unknown) Stop: 09/27/22 16:21 (units unknown) (unknown) (unknown) (no date) (unknown) (unknown) Stop: 09/27/22 17:19 (units unknown) (unknown) (unknown) (no date) (unknown) (unknown) Substance Use Type: does not use (units unknown) (unknown) (unknown) (no date) (unknown) (unknown) Surgical History (units unknown) (unknown) (unknown) (no date) (unknown) (unknown) TECHNIQUE:? AP pelvi s with lateral view(s) of the left hip(s).? (units unknown) (unknown) (unknown) (no date) (unknown) (unknown) Technique used: traction/counter-tract ion and direct manipulation (units unknown) (unknown) (unknown) (no date) (unknown) (unknown) Temperature 97.8 F 09/27/22 15:00 (units unknown) (unknown) (unknown) (no date) (unknown) (unknown) Temperature 97.8 F (units unknown) (unknown) (unknown) (no date) (unknown) (unknown) Temperature (units unknown) (unknown) (unknown) (no date) (unknown) (unknown) This is a 72-year-ol d female with complaint of left hip pain and a sensation of (units unknown) (unknown) (unknown) (no date) (unknown) (unknown) This is a 72-year-ol d female with history of dyslipidemia, anxiety and left hip (units unknown) (unknown) (unknown) (no date) (unknown) (unknown) Time Out Performed: Yes (units unknown) (unknown) (unknown) (no date) (unknown) (unknown) Time Seen by Provide r: 09/27/22 15:17 (units unknown) (unknown) (unknown) (no date) (unknown) (unknown) Time of Last PO Intake: 12:00 (units unknown) (unknown) (unknown) (no date) (unknown) (unknown) Time out performed: Yes (units unknown) (unknown) (unknown) (no date) (unknown) (unknown) Vital Signs - 8 hr (units unknown) (unknown) (unknown) (no date) (unknown) (unknown) Vital Signs (units unknown) (unknown) (unknown) (no date) (unknown) (unknown) Vital signs: (units unknown) (unknown) (unknown) (no date) (unknown) (unknown) XRay Report (units unknown) (unknown) (unknown) (no date) (unknown) (unknown) Misty Cabrera (units unknown) (unknown) (unknown) (no date) (unknown) (unknown) acetaminophen 325 mg tablet 650 mg PO Q6H PRN fever or pain 09/15/22 (units unknown) (unknown) (unknown) (no date) (unknown) (unknown) alcohol intake frequency: holidays/special occasions only (units unknown) (unknown) (unknown) (no date) (unknown) (unknown) alcohol intake: current (units unknown) (unknown) (unknown) (no date) (unknown) (unknown) allergies (units unknown) (unknown) (unknown) (no date) (unknown) (unknown) and below (units unknown) (unknown) (unknown) (no date) (unknown) (unknown) aspirin 81 mg tablet,delayed 81 mg PO BID 6 weeks #84 tabs 09/15/22 (units unknown) (unknown) (unknown) (no date) (unknown) (unknown) aspirin-acetaminophe n- caffeine 250 1 - 2 tab PO BID 08/13/22 10/02/22 (units unknown) (unknown) (unknown) (no date) (unknown) (unknown) atorvastatin 20 mg tablet 20 mg PO BEDTIME 08/13/22 10/02/22 (units unknown) (unknown) (unknown) (no date) (unknown) (unknown) bicarbonate 1.1 gram capsule (units unknown) (unknown) (unknown) (no date) (unknown) (unknown) bilaterally with normal sensation throughout the leg. Cap refill less than 2 (units unknown) (unknown) (unknown) (no date) (unknown) (unknown) calcifications.? (units unknown) (unknown) (unknown) (no date) (unknown) (unknown) caps (units unknown) (unknown) (unknown) (no date) (unknown) (unknown) cetirizine 10 mg tablet (Zyrtec) 10 mg PO DAILY PRN Seasonal 08/13/22 10/02/22 (units unknown) (unknown) (unknown) (no date) (unknown) (unknown) clubbing or edema. Neurovascularly intact (units unknown) (unknown) (unknown) (no date) (unknown) (unknown) dislocated and went back in last week. She was not seen for this. Patient (units unknown) (unknown) (unknown) (no date) (unknown) (unknown) docusate sodium 100 mg capsule 100 mg PO BID PRN constipation #30 09/15/22 (units unknown) (unknown) (unknown) (no date) (unknown) (unknown) escitalopram oxalate 20 mg tablet 20 mg PO DAILY 08/13/22 10/02/22 (units unknown) (unknown) (unknown) (no date) (unknown) (unknown) extremities (units unknown) (unknown) (unknown) (no date) (unknown) (unknown) fentanyl in route which was helpful but has since worn off and she is become (units unknown) (unknown) (unknown) (no date) (unknown) (unknown) from hip replacement . Patient is neurovascularly intact. Consultation with (units unknown) (unknown) (unknown) (no date) (unknown) (unknown) from prior surgery. She feels comfortable with myself attempting reduction at (units unknown) (unknown) (unknown) (no date) (unknown) (unknown) gross (units unknown) (unknown) (unknown) (no date) (unknown) (unknown) guarding or rebound, rigidity, no mass (units unknown) (unknown) (unknown) (no date) (unknown) (unknown) has been persistent. She states she had 1 episode where she felt like her hip (units unknown) (unknown) (unknown) (no date) (unknown) (unknown) household members: spouse (units unknown) (unknown) (unknown) (no date) (unknown) (unknown) hydroxyzine pamoate 25 mg capsule 25 mg PO TID-QID PRN itching #60 09/30/22 (units unknown) (unknown) (unknown) (no date) (unknown) (unknown) ibuprofen 400 mg tablet 400 mg PO Q4H PRN 09/15/22 (units unknown) (unknown) (unknown) (no date) (unknown) (unknown) increasingly painful. (units unknown) (unknown) (unknown) (no date) (unknown) (unknown) last meal was at noo n she had water approximately the same time. Patient had (units unknown) (unknown) (unknown) (no date) (unknown) (unknown) mg-250 mg-65 mg tabl et (Excedrin (units unknown) (unknown) (unknown) (no date) (unknown) (unknown) moist mucous membranes (units unknown) (unknown) (unknown) (no date) (unknown) (unknown) omeprazole 20 mg-sodium 1 cap PO DAILY PRN GI Upset 08/13/22 10/02/22 (units unknown) (unknown) (unknown) (no date) (unknown) (unknown) or illicit. Dr. Willis River is her orthopedic surgeon. Patient states her (units unknown) (unknown) (unknown) (no date) (unknown) (unknown) osseous fracture is identified. (units unknown) (unknown) (unknown) (no date) (unknown) (unknown) osseous or hardware fracture. (units unknown) (unknown) (unknown) (no date) (unknown) (unknown) oxycodone 5 mg table t 5 mg PO Q4-6H PRN Pain, Moderate 10/06/22 (units unknown) (unknown) (unknown) (no date) (unknown) (unknown) plantar and dorsiflexion of the foot on the left, she has 2+ dorsalis pedis (units unknown) (unknown) (unknown) (no date) (unknown) (unknown) pop. X-ray shows wha t appears to be dislocation. Patient is 2 weeks postop (units unknown) (unknown) (unknown) (no date) (unknown) (unknown) prior knee replacement. Patient states no cardiac history. No tobacco, alcohol (units unknown) (unknown) (unknown) (no date) (unknown) (unknown) recontacted plan for possible OR for reduction for ER. Placed in observation. (units unknown) (unknown) (unknown) (no date) (unknown) (unknown) reduction in OR when this shortly postop. She recommends longitudinal traction (units unknown) (unknown) (unknown) (no date) (unknown) (unknown) reduction. Several attempts with longitudinal traction, internal external (units unknown) (unknown) (unknown) (no date) (unknown) (unknown) release (units unknown) (unknown) (unknown) (no date) (unknown) (unknown) replacement on 09/14/2022. Patient states she was seated using the toilet when (units unknown) (unknown) (unknown) (no date) (unknown) (unknown) rotation and 1 attem pt at flexion with traction without any success. Patient (units unknown) (unknown) (unknown) (no date) (unknown) (unknown) sats and required BV M and O2 but still would awakened and resists attempts at (units unknown) (unknown) (unknown) (no date) (unknown) (unknown) seconds bilaterally. Patient is shortened and slightly rotated on exam, no (units unknown) (unknown) (unknown) (no date) (unknown) (unknown) she went to stand up and felt a pop in her left hip and had sudden pain which (units unknown) (unknown) (unknown) (no date) (unknown) (unknown) solifenacin 10 mg tablet (Vesicare) 10 mg PO DAILY 08/13/22 10/02/22 (units unknown) (unknown) (unknown) (no date) (unknown) (unknown) states her only othe r surgeries have been prior hip replacement 2 weeks ago and (units unknown) (unknown) (unknown) (no date) (unknown) (unknown) states no numbness o r tingling or weakness. She has pain down the leg. Patient (units unknown) (unknown) (unknown) (no date) (unknown) (unknown) successful knee immobilizer ambulation trial and follow-up. (units unknown) (unknown) (unknown) (no date) (unknown) (unknown) supplemental O2 applied, suction/airway equipment at bedside and IV secured (units unknown) (unknown) (unknown) (no date) (unknown) (unknown) this time, we did discuss that sometimes Dr. River prefers patient to perform (units unknown) (unknown) (unknown) (no date) (unknown) (unknown) tissue (units unknown) (unknown) (unknown) (no date) (unknown) (unknown) visualized (units unknown) (unknown) (unknown) (no date) (unknown) (unknown) was not felt to to b e safe to continue with sedation. Dr. Paulino was (units unknown) (unknown) (unknown) (no date) (unknown) (unknown) with little bit anterior, extended knee. If unsuccessful to call back if (units unknown) (unknown) Result panel [id number] (unknown) (no date) (unknown) (unknown) (no value) (units unknown) (unknown) (unknown) (no date) (unknown) (unknown) #90 tabs (units unknown) (unknown) (unknown) (no date) (unknown) (unknown) <Magdaleno Kingston MD - Last Filed: 10/14/22 22:24> (units unknown) (unknown) (unknown) (no date) (unknown) (unknown) <Electronically sign ed by Magdaleno Kingston MD> (units unknown) (unknown) (unknown) (no date) (unknown) (unknown) <Electronically sign ed by Kelley Calix> (units unknown) (unknown) (unknown) (no date) (unknown) (unknown) <MARIO Benz [employer] OPERATOR - Last Filed: 09/29/22 15:23> (units unknown) (unknown) (unknown) (no date) (unknown) (unknown) (4-6) #60 tabs (units unknown) (unknown) (unknown) (no date) (unknown) (unknown) (Vistaril) caps (units unknown) (unknown) (unknown) (no date) (unknown) (unknown) (Zegerid) (units unknown) (unknown) (unknown) (no date) (unknown) (unknown) 09/14/[address] Annika River. Patient came into the emergency department on (units unknown) (unknown) (unknown) (no date) (unknown) (unknown) 09/27/2022 after a sitting to standing complication causing a left hip (units unknown) (unknown) (unknown) (no date) (unknown) (unknown) 09/29/22 09/29/22 09/29/22 Range/Units (units unknown) (unknown) (unknown) (no date) (unknown) (unknown) 09/29/22 12:25 (units unknown) (unknown) (unknown) (no date) (unknown) (unknown) 09/29/22 1523 (units unknown) (unknown) (unknown) (no date) (unknown) (unknown) 09/29/22 (units unknown) (unknown) (unknown) (no date) (unknown) (unknown) 10/14/22 2224 (units unknown) (unknown) (unknown) (no date) (unknown) (unknown) 11:39 09/29/22 (units unknown) (unknown) (unknown) (no date) (unknown) (unknown) [address] [place] [address] (units unknown) (unknown) (unknown) (no date) (unknown) (unknown) 12:25 12:25 12:47 (units unknown) (unknown) (unknown) (no date) (unknown) (unknown) 13:05 09/29/22 (units unknown) (unknown) (unknown) (no date) (unknown) (unknown) 13:30 (units unknown) (unknown) (unknown) (no date) (unknown) (unknown) 14:00 (units unknown) (unknown) (unknown) (no date) (unknown) (unknown) 3151 (units unknown) (unknown) (unknown) (no date) (unknown) (unknown) ? (units unknown) (unknown) (unknown) (no date) (unknown) (unknown) ALT 21 (<35) IU/L (units unknown) (unknown) (unknown) (no date) (unknown) (unknown) AST 37 H (14-36) IU/L (units unknown) (unknown) (unknown) (no date) (unknown) (unknown) Accession Number: [id number] ?? (units unknown) (unknown) (unknown) (no date) (unknown) (unknown) Acct:[id number] (units unknown) (unknown) (unknown) (no date) (unknown) (unknown) Acetaminophen (Acetaminophen 325 Mg Tablet) 650 mg PO Q6H PRN (units unknown) (unknown) (unknown) (no date) (unknown) (unknown) Admin: 09/29/22 16:4 5 Dose: 42 mls/hr (units unknown) (unknown) (unknown) (no date) (unknown) (unknown) Admin: 09/29/22 22:3 7 Dose: 100 mg (units unknown) (unknown) (unknown) (no date) (unknown) (unknown) Admin: 09/29/22 22:3 7 Dose: 81 mg (units unknown) (unknown) (unknown) (no date) (unknown) (unknown) Admin: 09/29/22 22:4 1 Dose: 650 mg (units unknown) (unknown) (unknown) (no date) (unknown) (unknown) Admit Date/Time: 09/29/22 14:37 (units unknown) (unknown) (unknown) (no date) (unknown) (unknown) Admit Provider: Jorge Aviles (units unknown) (unknown) (unknown) (no date) (unknown) (unknown) Age/Sex: 72 / F (units unknown) (unknown) (unknown) (no date) (unknown) (unknown) Al Hydrox/Mg Hydrox/Simethicone (Mag Hydrox/Alum/Simeth 30 Ml Udc) 30 ml PO QID (units unknown) (unknown) (unknown) (no date) (unknown) (unknown) Albumin 3.7 (3.5-5.0 ) g/dL (units unknown) (unknown) (unknown) (no date) (unknown) (unknown) Albumin/Globulin Rat io 1.4 (1.0-2.8) (units unknown) (unknown) (unknown) (no date) (unknown) (unknown) Alkaline Phosphatase 89 (38-126) U/L (units unknown) (unknown) (unknown) (no date) (unknown) (unknown) Allergies (units unknown) (unknown) (unknown) (no date) (unknown) (unknown) Allergy/AdvReac Type Severity Reaction Status Date / Time (units unknown) (unknown) (unknown) (no date) (unknown) (unknown) ARIAN [place] [id number] (units unknown) (unknown) (unknown) (no date) (unknown) (unknown) Approved by: Parish Demarco M.D. on 09/29/2022 at 12:15? (units unknown) (unknown) (unknown) (no date) (unknown) (unknown) Aspirin (Aspirin Ec 81 Mg Tablet) 81 mg PO BID MINDI (units unknown) (unknown) (unknown) (no date) (unknown) (unknown) Atorvastatin Calcium (Atorvastatin 20 Mg Tablet) 20 mg PO BEDTIME MINDI (units unknown) (unknown) (unknown) (no date) (unknown) (unknown) BUN 15 (7-17) mg/dL (units unknown) (unknown) (unknown) (no date) (unknown) (unknown) BUN/Creatinine Ratio 13.2 (6-22) (units unknown) (unknown) (unknown) (no date) (unknown) (unknown) Baso # (Auto) 0 (0-100) /uL (units unknown) (unknown) (unknown) (no date) (unknown) (unknown) Baso % (Auto) 0.6 (0-2) % (units unknown) (unknown) (unknown) (no date) (unknown) (unknown) Blood Pressure 135/61 (units unknown) (unknown) (unknown) (no date) (unknown) (unknown) Blood Pressure 175/7 6 H 09/29/22 11:39 (units unknown) (unknown) (unknown) (no date) (unknown) (unknown) Blood Pressure 175/7 6 H 152/67 H 152/73 H (units unknown) (unknown) (unknown) (no date) (unknown) (unknown) Bones:? Anteriorly dislocated left hip prosthesis noted.? Right hip (units unknown) (unknown) (unknown) (no date) (unknown) (unknown) COMPARISON:[facility], CR, XR HIP W PEL IF DONE LT 2V, 09/27/2022, 19:35. (units unknown) (unknown) (unknown) (no date) (unknown) (unknown) CV: regular rate and rhythm, warm extremities (units unknown) (unknown) (unknown) (no date) (unknown) (unknown) Calcium 8.8 (8.4-10. 2) mg/dL (units unknown) (unknown) (unknown) (no date) (unknown) (unknown) Carbon Dioxide 29 (22-32) mmol/L (units unknown) (unknown) (unknown) (no date) (unknown) (unknown) Chief Complaint: Extremity Injury, Lower (units unknown) (unknown) (unknown) (no date) (unknown) (unknown) Chief Complaint: Lef t hip pain with pop, concern for dislocation (units unknown) (unknown) (unknown) (no date) (unknown) (unknown) Chloride 105 (98-107 ) mmol/L (units unknown) (unknown) (unknown) (no date) (unknown) (unknown) Clinical Impression: (units unknown) (unknown) (unknown) (no date) (unknown) (unknown) Conversation with Dr Raad Aviles regarding OR for reduction of left hip anterior (units unknown) (unknown) (unknown) (no date) (unknown) (unknown) Cosign (units unknown) (unknown) (unknown) (no date) (unknown) (unknown) Course of care: I sa w the patient and she does appear to have a dislocated left (units unknown) (unknown) (unknown) (no date) (unknown) (unknown) Course (units unknown) (unknown) (unknown) (no date) (unknown) (unknown) Creatinine 1.14 H (0.52-1.04) mg/dL (units unknown) (unknown) (unknown) (no date) (unknown) (unknown) : 1950 Acct:[id number] (units unknown) (unknown) (unknown) (no date) (unknown) (unknown) : 1950 (units unknown) (unknown) (unknown) (no date) (unknown) (unknown) Date of Service: 09/29/22 (units unknown) (unknown) (unknown) (no date) (unknown) (unknown) Departure (units unknown) (unknown) (unknown) (no date) (unknown) (unknown) Depression (units unknown) (unknown) (unknown) (no date) (unknown) (unknown) Diazepam (Diazepam 1 0 Mg/2 Ml Syringe) 2 mg IV NOW ONE (units unknown) (unknown) (unknown) (no date) (unknown) (unknown) Discharge Plan (units unknown) (unknown) (unknown) (no date) (unknown) (unknown) Discontinued Medications (units unknown) (unknown) (unknown) (no date) (unknown) (unknown) Dislocation, hip closed (units unknown) (unknown) (unknown) (no date) (unknown) (unknown) Diverticulitis (units unknown) (unknown) (unknown) (no date) (unknown) (unknown) Documented By: BV (units unknown) (unknown) (unknown) (no date) (unknown) (unknown) Documented By: CG (units unknown) (unknown) (unknown) (no date) (unknown) (unknown) Documented By: JM (units unknown) (unknown) (unknown) (no date) (unknown) (unknown) Documented By: MO (units unknown) (unknown) (unknown) (no date) (unknown) (unknown) Documented By: RL (units unknown) (unknown) (unknown) (no date) (unknown) (unknown) Docusate Sodium (Docusate 100 Mg Capsule) 100 mg PO BID MINDI (units unknown) (unknown) (unknown) (no date) (unknown) (unknown) ED Attending Cosignature Attestation: (units unknown) (unknown) (unknown) (no date) (unknown) (unknown) ER Physician: Kelley Calix (units unknown) (unknown) (unknown) (no date) (unknown) (unknown) Emergency Report (units unknown) (unknown) (unknown) (no date) (unknown) (unknown) Encounter type: initial encounter Qualified Code(s): T84.021A - Dislocation of (units unknown) (unknown) (unknown) (no date) (unknown) (unknown) Eos # (Auto) 200 (0-450) /uL (units unknown) (unknown) (unknown) (no date) (unknown) (unknown) Eos % (Auto) 2.7 (2- 4) % (units unknown) (unknown) (unknown) (no date) (unknown) (unknown) Escitalopram Oxalate (Escitalopram 10 Mg Tablet) 20 mg PO DAILY MINDI (units unknown) (unknown) (unknown) (no date) (unknown) (unknown) Estimated GFR 51 L (>60) mL/min (units unknown) (unknown) (unknown) (no date) (unknown) (unknown) Exam Narrative: (units unknown) (unknown) (unknown) (no date) (unknown) (unknown) Exam (units unknown) (unknown) (unknown) (no date) (unknown) (unknown) Extra Strength) (units unknown) (unknown) (unknown) (no date) (unknown) (unknown) FINDINGS:? 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 (units unknown) (unknown) (unknown) (no date) (unknown) (unknown) General (units unknown) (unknown) (unknown) (no date) (unknown) (unknown) General: Pleasant, lying on gurney, complaining of pain but is not in acute (units unknown) (unknown) (unknown) (no date) (unknown) (unknown) Globulin 2.7 (1.7-4. 1) g/dL (units unknown) (unknown) (unknown) (no date) (unknown) (unknown) Glucose 106 (80-110) mg/dL (units unknown) (unknown) (unknown) (no date) (unknown) (unknown) HEENT: symmetrical facial expressions, moist mucous membranes (units unknown) (unknown) (unknown) (no date) (unknown) (unknown) HLD (hyperlipidemia) (units unknown) (unknown) (unknown) (no date) (unknown) (unknown) HPI - Extremity Inju ry (Lower) (units unknown) (unknown) (unknown) (no date) (unknown) (unknown) HPI Narrative: (units unknown) (unknown) (unknown) (no date) (unknown) (unknown) Hct 31.1 L (36-46) % (units unknown) (unknown) (unknown) (no date) (unknown) (unknown) Hearing impaired (units unknown) (unknown) (unknown) (no date) (unknown) (unknown) Hgb 10.6 L (12.0-16. 0) g/dL (units unknown) (unknown) (unknown) (no date) (unknown) (unknown) Hip Xray: (units unknown) (unknown) (unknown) (no date) (unknown) (unknown) History of Present Illness (units unknown) (unknown) (unknown) (no date) (unknown) (unknown) History of bladder surgery (units unknown) (unknown) (unknown) (no date) (unknown) (unknown) History of total lef t knee replacement (units unknown) (unknown) (unknown) (no date) (unknown) (unknown) History of total rig ht knee replacement (units unknown) (unknown) (unknown) (no date) (unknown) (unknown) Home Medications (units unknown) (unknown) (unknown) (no date) (unknown) (unknown) Hx of left breast biopsy (units unknown) (unknown) (unknown) (no date) (unknown) (unknown) Hx of right breast biopsy (units unknown) (unknown) (unknown) (no date) (unknown) (unknown) Hx of tonsillectomy (units unknown) (unknown) (unknown) (no date) (unknown) (unknown) Hydromorphone HCl (Hydromorphone 0.5 Mg Inj) 0.5 mg IV NOW ONE (units unknown) (unknown) (unknown) (no date) (unknown) (unknown) Hydromorphone HCl (Hydromorphone 0.5 Mg Inj) 0.5 mg IV Q2H PRN (units unknown) (unknown) (unknown) (no date) (unknown) (unknown) Hydromorphone HCl (Hydromorphone 1 Mg Inj) 0.2 mg IV Q1H PRN (units unknown) (unknown) (unknown) (no date) (unknown) (unknown) I have independently reviewed the patient's vital signs and nursing notes as (units unknown) (unknown) (unknown) (no date) (unknown) (unknown) I have spoken with t he patient in regard to admission, patient understands and (units unknown) (unknown) (unknown) (no date) (unknown) (unknown) I was immediately available in the department for consultation. This (units unknown) (unknown) (unknown) (no date) (unknown) (unknown) IMPRESSION:? Anterio r dislocation, left total hip arthroplasty (units unknown) (unknown) (unknown) (no date) (unknown) (unknown) INDICATIONS:? ? dislocation (units unknown) (unknown) (unknown) (no date) (unknown) (unknown) Imaging Data (units unknown) (unknown) (unknown) (no date) (unknown) (unknown) Initial Vital Signs (units unknown) (unknown) (unknown) (no date) (unknown) (unknown) Initial Vital Signs: (units unknown) (unknown) (unknown) (no date) (unknown) (unknown) [address] [address] (units unknown) (unknown) (unknown) (no date) (unknown) (unknown) [facility] (units unknown) (unknown) (unknown) (no date) (unknown) (unknown) Lab Data (units unknown) (unknown) (unknown) (no date) (unknown) (unknown) Lab Results (units unknown) (unknown) (unknown) (no date) (unknown) (unknown) Labs: (units unknown) (unknown) (unknown) (no date) (unknown) (unknown) Lactated Ringer's (Lactated Ringers) 1,000 mls @ 42 mls/hr IV CONT MINDI (units unknown) (unknown) (unknown) (no date) (unknown) (unknown) Last Admin: 09/29/22 13:23 Dose: 0.5 mg (units unknown) (unknown) (unknown) (no date) (unknown) (unknown) Last Admin: 09/29/22 13:23 Dose: 2 mg (units unknown) (unknown) (unknown) (no date) (unknown) (unknown) Last Admin: 09/29/22 15:16 Dose: 0.5 mg (units unknown) (unknown) (unknown) (no date) (unknown) (unknown) Last Admin: 09/29/22 15:17 Dose: 2 mg (units unknown) (unknown) (unknown) (no date) (unknown) (unknown) Last Admin: 09/29/22 22:37 Dose: 20 mg (units unknown) (unknown) (unknown) (no date) (unknown) (unknown) Last Admin: 09/30/22 08:20 Dose: 20 mg (units unknown) (unknown) (unknown) (no date) (unknown) (unknown) Last Admin: 09/30/22 08:21 Dose: 100 mg (units unknown) (unknown) (unknown) (no date) (unknown) (unknown) Last Admin: 09/30/22 08:21 Dose: 650 mg (units unknown) (unknown) (unknown) (no date) (unknown) (unknown) Last Admin: 09/30/22 08:21 Dose: 81 mg (units unknown) (unknown) (unknown) (no date) (unknown) (unknown) Last Admin: 09/30/22 08:22 Dose: 10 mg (units unknown) (unknown) (unknown) (no date) (unknown) (unknown) Last Infusion: 09/29/22 16:45 Dose: 42 mls/hr (units unknown) (unknown) (unknown) (no date) (unknown) (unknown) Lipase 44 (23-300) U/L (units unknown) (unknown) (unknown) (no date) (unknown) (unknown) Loc: ED (units unknown) (unknown) (unknown) (no date) (unknown) (unknown) Lorazepam (Lorazepam 0.5 Mg Tablet) 0.5 mg PO Q6HR PRN (units unknown) (unknown) (unknown) (no date) (unknown) (unknown) Lymph # (Auto) 1100 (4910-9342) /uL (units unknown) (unknown) (unknown) (no date) (unknown) (unknown) Lymph % (Auto) 13.3 L (25-40) % (units unknown) (unknown) (unknown) (no date) (unknown) (unknown) MCH 29.9 (26-34) PG (units unknown) (unknown) (unknown) (no date) (unknown) (unknown) MCHC 34.0 (30-36) % (units unknown) (unknown) (unknown) (no date) (unknown) (unknown) MCV 87.9 (80-100) fL (units unknown) (unknown) (unknown) (no date) (unknown) (unknown) MDM - Extremity Inju ry (Lower) (units unknown) (unknown) (unknown) (no date) (unknown) (unknown) MDM Narrative (units unknown) (unknown) (unknown) (no date) (unknown) (unknown) MR#: [id number] (units unknown) (unknown) (unknown) (no date) (unknown) (unknown) MSK: moves all extremities, no weakness, normal tone, left foot with brisk cap (units unknown) (unknown) (unknown) (no date) (unknown) (unknown) Medical History (units unknown) (unknown) (unknown) (no date) (unknown) (unknown) Medical decision making narrative: (units unknown) (unknown) (unknown) (no date) (unknown) (unknown) Medication Instructions Recorded Confirmed (units unknown) (unknown) (unknown) (no date) (unknown) (unknown) Medication Instructions Recorded (units unknown) (unknown) (unknown) (no date) (unknown) (unknown) Mode of arrival: EMS (units unknown) (unknown) (unknown) (no date) (unknown) (unknown) [place] # (Auto) 400 (0-900) /uL (units unknown) (unknown) (unknown) (no date) (unknown) (unknown) [place] % (Auto) 5.4 (3-14) % (units unknown) (unknown) (unknown) (no date) (unknown) (unknown) Multiple etiologies for patient's symptoms considered including, but not limited (units unknown) (unknown) (unknown) (no date) (unknown) (unknown) My Imaging interpretation: Patient's left hip appears to be anteriorly (units unknown) (unknown) (unknown) (no date) (unknown) (unknown) Naloxone HCl (Naloxo ne 0.4 Mg/Ml Vial) 0.2 mg IV Q2MIN PRN (units unknown) (unknown) (unknown) (no date) (unknown) (unknown) Narrative (units unknown) (unknown) (unknown) (no date) (unknown) (unknown) Neuro: clear speech and normal cognition, A+O x3, GCS 15, no sensation deficits (units unknown) (unknown) (unknown) (no date) (unknown) (unknown) Neut # (Auto) 6300 (0995-6697) /uL (units unknown) (unknown) (unknown) (no date) (unknown) (unknown) Neut % (Auto) 78.0 H (50-75) % (units unknown) (unknown) (unknown) (no date) (unknown) (unknown) No Known Drug Allergies Allergy Verified 10/02/22 18:28 (units unknown) (unknown) (unknown) (no date) (unknown) (unknown) Ondansetron HCl (Ondansetron 4 Mg Odt) 4 mg PO Q4HR PRN (units unknown) (unknown) (unknown) (no date) (unknown) (unknown) Ordered: (units unknown) (unknown) (unknown) (no date) (unknown) (unknown) Ordering Provider: Magdaleno Kingston MD (units unknown) (unknown) (unknown) (no date) (unknown) (unknown) Orders (units unknown) (unknown) (unknown) (no date) (unknown) (unknown) Osteoarthritis (units unknown) (unknown) (unknown) (no date) (unknown) (unknown) Oxybutynin Chloride (Oxybutynin 5 Mg Er Tab) 10 mg PO DAILY MINDI (units unknown) (unknown) (unknown) (no date) (unknown) (unknown) Oxycodone HCl (Oxycodone Ir 5 Mg Tablet) 5 mg PO Q3HR PRN (units unknown) (unknown) (unknown) (no date) (unknown) (unknown) Oxygen Delivery Meth od Room Air 09/29/22 11:39 (units unknown) (unknown) (unknown) (no date) (unknown) (unknown) Oxygen Delivery Meth od Room Air Room Air Room Air (units unknown) (unknown) (unknown) (no date) (unknown) (unknown) Oxygen Delivery Meth od Room Air (units unknown) (unknown) (unknown) (no date) (unknown) (unknown) PRN Reason: Anxiety (units unknown) (unknown) (unknown) (no date) (unknown) (unknown) PRN Reason: Dyspepsia (units unknown) (unknown) (unknown) (no date) (unknown) (unknown) PRN Reason: Nausea A nd Vomiting (units unknown) (unknown) (unknown) (no date) (unknown) (unknown) PRN Reason: Opiate Reversal (units unknown) (unknown) (unknown) (no date) (unknown) (unknown) PRN Reason: Pain, Mi ld (1-3) (units unknown) (unknown) (unknown) (no date) (unknown) (unknown) PRN Reason: Pain, Moderate (4-6) (units unknown) (unknown) (unknown) (no date) (unknown) (unknown) PRN Reason: Sleep (units unknown) (unknown) (unknown) (no date) (unknown) (unknown) PRN Reason: fever or pain (units unknown) (unknown) (unknown) (no date) (unknown) (unknown) PRN (units unknown) (unknown) (unknown) (no date) (unknown) (unknown) PROCEDURE:? XR HIP W PEL IF DONE LT 2V (units unknown) (unknown) (unknown) (no date) (unknown) (unknown) PT and DP pulses are 2+, palpation left hip appears to be anterior dislocation. (units unknown) (unknown) (unknown) (no date) (unknown) (unknown) Paging Dr. Aviles [phone] (units unknown) (unknown) (unknown) (no date) (unknown) (unknown) Pain/inflammation #9 0 tabs (units unknown) (unknown) (unknown) (no date) (unknown) (unknown) Patient Disposition: Admitted as Observation (units unknown) (unknown) (unknown) (no date) (unknown) (unknown) Patient History (units unknown) (unknown) (unknown) (no date) (unknown) (unknown) Patient entered in a s observation status. Patient was informed of lab and (units unknown) (unknown) (unknown) (no date) (unknown) (unknown) Patient has a histor y of dyslipidemia, anxiety, and left hip arthroplasty on (units unknown) (unknown) (unknown) (no date) (unknown) (unknown) Patient has not been able to move her hip or left knee at all. Complaining of (units unknown) (unknown) (unknown) (no date) (unknown) (unknown) Patient's pain was treated with Dilaudid and Valium which she reports as good (units unknown) (unknown) (unknown) (no date) (unknown) (unknown) Patient: Barbara Garcia MR#: [id number] (units unknown) (unknown) (unknown) (no date) (unknown) (unknown) Patient: Charisma Garciayce (units unknown) (unknown) (unknown) (no date) (unknown) (unknown) Plt Count 315 (150-400) X103/uL (units unknown) (unknown) (unknown) (no date) (unknown) (unknown) Potassium 3.5 (3.4-5.1) mmol/L (units unknown) (unknown) (unknown) (no date) (unknown) (unknown) Previous Rx's (units unknown) (unknown) (unknown) (no date) (unknown) (unknown) Procedure: XR hip w pel if done LT 2V (units unknown) (unknown) (unknown) (no date) (unknown) (unknown) Pulse Oximetry 100 09/29/22 11:39 (units unknown) (unknown) (unknown) (no date) (unknown) (unknown) Pulse Oximetry 100 9 9 95 (units unknown) (unknown) (unknown) (no date) (unknown) (unknown) Pulse Oximetry 94 (units unknown) (unknown) (unknown) (no date) (unknown) (unknown) Pulse Rate 62 11:39 (units unknown) (unknown) (unknown) (no date) (unknown) (unknown) Pulse Rate 62 67 79 (units unknown) (unknown) (unknown) (no date) (unknown) (unknown) Pulse Rate 65 (units unknown) (unknown) (unknown) (no date) (unknown) (unknown) Qualifiers: (units unknown) (unknown) (unknown) (no date) (unknown) (unknown) Questions are addressed and there is agreement with the plan and for follow-up. (units unknown) (unknown) (unknown) (no date) (unknown) (unknown) RBC 3.53 L (4.0-5.2) X106/uL (units unknown) (unknown) (unknown) (no date) (unknown) (unknown) RDW 14.4 (11.6-14.8) % (units unknown) (unknown) (unknown) (no date) (unknown) (unknown) ROS Unobtainable: Al l systems reviewed + are unremarkable except as noted in HPI (units unknown) (unknown) (unknown) (no date) (unknown) (unknown) Radiologist's Impression: (units unknown) (unknown) (unknown) (no date) (unknown) (unknown) Related Data (units unknown) (unknown) (unknown) (no date) (unknown) (unknown) Respiratory Rate 18 09/29/22 11:39 (units unknown) (unknown) (unknown) (no date) (unknown) (unknown) Respiratory Rate 18 18 18 (units unknown) (unknown) (unknown) (no date) (unknown) (unknown) Respiratory Rate 18 (units unknown) (unknown) (unknown) (no date) (unknown) (unknown) Respiratory: normal work of breathing, without tachypnea or hypoxia. (units unknown) (unknown) (unknown) (no date) (unknown) (unknown) Review of Systems (units unknown) (unknown) (unknown) (no date) (unknown) (unknown) Reviewed vitals sign s and nursing notes. (units unknown) (unknown) (unknown) (no date) (unknown) (unknown) SARS-CoV-2 (PCR) Negative (Negative) (units unknown) (unknown) (unknown) (no date) (unknown) (unknown) Seasonal allergies (units unknown) (unknown) (unknown) (no date) (unknown) (unknown) She endorses having a dry mouth she denies any upper respiratory symptoms, COVID (units unknown) (unknown) (unknown) (no date) (unknown) (unknown) She required reducti on of her left hip with Dr. Roberts. There were several (units unknown) (unknown) (unknown) (no date) (unknown) (unknown) Signed By: (units unknown) (unknown) (unknown) (no date) (unknown) (unknown) Signed (units unknown) (unknown) (unknown) (no date) (unknown) (unknown) Skin: brisk capillar y refill, without rash or wound (units unknown) (unknown) (unknown) (no date) (unknown) (unknown) Smoking Status: Carmencita r smoker (units unknown) (unknown) (unknown) (no date) (unknown) (unknown) Social History (units unknown) (unknown) (unknown) (no date) (unknown) (unknown) Social consideration s that may affect disposition: none (units unknown) (unknown) (unknown) (no date) (unknown) (unknown) Sodium 140 (137-145) mmol/L (units unknown) (unknown) (unknown) (no date) (unknown) (unknown) Soft tissues:? No suspicious soft tissue calcifications or masses.? (units unknown) (unknown) (unknown) (no date) (unknown) (unknown) Source: patient and EMS (units unknown) (unknown) (unknown) (no date) (unknown) (unknown) Stated Complaint: L Hip Dislocated t-2 days (units unknown) (unknown) (unknown) (no date) (unknown) (unknown) Stop: 09/29/22 13:01 (units unknown) (unknown) (unknown) (no date) (unknown) (unknown) Stop: 09/29/22 15:11 (units unknown) (unknown) (unknown) (no date) (unknown) (unknown) Substance Use Type: does not use (units unknown) (unknown) (unknown) (no date) (unknown) (unknown) Supervised by Magdaleno Kingston MD (units unknown) (unknown) (unknown) (no date) (unknown) (unknown) Surgical History (units unknown) (unknown) (unknown) (no date) (unknown) (unknown) TECHNIQUE:? 2 views of the hip were acquired.? (units unknown) (unknown) (unknown) (no date) (unknown) (unknown) Temperature 98.6 F 09/29/22 11:39 (units unknown) (unknown) (unknown) (no date) (unknown) (unknown) Temperature 98.6 F (units unknown) (unknown) (unknown) (no date) (unknown) (unknown) Temperature (units unknown) (unknown) (unknown) (no date) (unknown) (unknown) This is a 72 year female presents to the emergency department via EMS with (units unknown) (unknown) (unknown) (no date) (unknown) (unknown) Time Seen by Provide r: 09/29/22 12:55 (units unknown) (unknown) (unknown) (no date) (unknown) (unknown) Total Bilirubin 0.4 (0.2-1.3) mg/dL (units unknown) (unknown) (unknown) (no date) (unknown) (unknown) Total Protein 6.4 (6.3-8.2) g/dL (units unknown) (unknown) (unknown) (no date) (unknown) (unknown) Vital Signs - 8 hr (units unknown) (unknown) (unknown) (no date) (unknown) (unknown) Vital Signs (units unknown) (unknown) (unknown) (no date) (unknown) (unknown) Vital signs: (units unknown) (unknown) (unknown) (no date) (unknown) (unknown) WBC 8.0 (4.5-11.0) X103/uL (units unknown) (unknown) (unknown) (no date) (unknown) (unknown) XRay Report (units unknown) (unknown) (unknown) (no date) (unknown) (unknown) Zolpidem Tartrate (Zolpidem 5 Mg Tablet) 5 mg PO BEDTIME PRN (units unknown) (unknown) (unknown) (no date) (unknown) (unknown) [Embedded Image Not Available] (units unknown) (unknown) (unknown) (no date) (unknown) (unknown) acetaminophen 325 mg tablet 650 mg PO Q6H PRN fever or pain 09/15/22 (units unknown) (unknown) (unknown) (no date) (unknown) (unknown) admitting physician who agrees with admission. All questions answered at this (units unknown) (unknown) (unknown) (no date) (unknown) (unknown) agrees. I have communicated the patient's evaluation and treatment plan to the (units unknown) (unknown) (unknown) (no date) (unknown) (unknown) alcohol intake frequency: holidays/special occasions only (units unknown) (unknown) (unknown) (no date) (unknown) (unknown) alcohol intake: current (units unknown) (unknown) (unknown) (no date) (unknown) (unknown) allergies (units unknown) (unknown) (unknown) (no date) (unknown) (unknown) and below (units unknown) (unknown) (unknown) (no date) (unknown) (unknown) any numbness. Megha del toro states that today she was standing with her walker, (units unknown) (unknown) (unknown) (no date) (unknown) (unknown) aspirin 81 mg tablet,delayed 81 mg PO BID 6 weeks #84 tabs 09/15/22 (units unknown) (unknown) (unknown) (no date) (unknown) (unknown) aspirin-acetaminophe n- caffeine 250 1 - 2 tab PO BID 08/13/22 10/02/22 (units unknown) (unknown) (unknown) (no date) (unknown) (unknown) atorvastatin 20 mg tablet 20 mg PO BEDTIME 08/13/22 10/02/22 (units unknown) (unknown) (unknown) (no date) (unknown) (unknown) attempts with tracti on and none of them worked. She was discharged from the (units unknown) (unknown) (unknown) (no date) (unknown) (unknown) bicarbonate 1.1 gram capsule (units unknown) (unknown) (unknown) (no date) (unknown) (unknown) caps (units unknown) (unknown) (unknown) (no date) (unknown) (unknown) causing her to fall but she denies hitting her head. Her states that he (units unknown) (unknown) (unknown) (no date) (unknown) (unknown) cetirizine 10 mg tablet (Zyrtec) 10 mg PO DAILY PRN Seasonal 08/13/22 10/02/22 (units unknown) (unknown) (unknown) (no date) (unknown) (unknown) concern of a left hi p dislocation status post hip dislocation 2 days ago. (units unknown) (unknown) (unknown) (no date) (unknown) (unknown) denies any sensation changes, she can wiggle her toes and her foot and denies (units unknown) (unknown) (unknown) (no date) (unknown) (unknown) department visit nadira grey 09/27/2022 (units unknown) (unknown) (unknown) (no date) (unknown) (unknown) dislocated. (units unknown) (unknown) (unknown) (no date) (unknown) (unknown) dislocation, he accepts, patient's last NPO sat as was last night. She has had (units unknown) (unknown) (unknown) (no date) (unknown) (unknown) dislocation. She had pain down her leg and states it feels similar today. She (units unknown) (unknown) (unknown) (no date) (unknown) (unknown) distress, well groomed, afebrile (units unknown) (unknown) (unknown) (no date) (unknown) (unknown) documentation has be en reviewed and I agree with assessment and plan. (units unknown) (unknown) (unknown) (no date) (unknown) (unknown) docusate sodium 100 mg capsule 100 mg PO BID PRN constipation #30 09/15/22 (units unknown) (unknown) (unknown) (no date) (unknown) (unknown) doses. (units unknown) (unknown) (unknown) (no date) (unknown) (unknown) escitalopram oxalate 20 mg tablet 20 mg PO DAILY 08/13/22 10/02/22 (units unknown) (unknown) (unknown) (no date) (unknown) (unknown) evidence of pelvic fracture (units unknown) (unknown) (unknown) (no date) (unknown) (unknown) fracture (units unknown) (unknown) (unknown) (no date) (unknown) (unknown) helped her. She has not been able to move her left knee or left hip at all. (units unknown) (unknown) (unknown) (no date) (unknown) (unknown) hip. Pending radiology's interpretation. Will contact Dr. Aviles for (units unknown) (unknown) (unknown) (no date) (unknown) (unknown) hospital today. Stat es this happened at 09:00 this morning. She states that her (units unknown) (unknown) (unknown) (no date) (unknown) (unknown) household members: spouse (units unknown) (unknown) (unknown) (no date) (unknown) (unknown) hydroxyzine pamoate 25 mg capsule 25 mg PO TID-QID PRN itching #60 09/30/22 (units unknown) (unknown) (unknown) (no date) (unknown) (unknown) ibuprofen 400 mg tablet 400 mg PO Q4H PRN 09/15/22 (units unknown) (unknown) (unknown) (no date) (unknown) (unknown) imaging results, pertinent diagnoses, consulting physicians, and treatment plan. (units unknown) (unknown) (unknown) (no date) (unknown) (unknown) improved symptoms since she received pain medication, secondary doses were (units unknown) (unknown) (unknown) (no date) (unknown) (unknown) internal left hip prosthesis, initial encounter (units unknown) (unknown) (unknown) (no date) (unknown) (unknown) mg-250 mg-65 mg tabl et (Excedrin (units unknown) (unknown) (unknown) (no date) (unknown) (unknown) omeprazole 20 mg-sodium 1 cap PO DAILY PRN GI Upset 08/13/22 10/02/22 (units unknown) (unknown) (unknown) (no date) (unknown) (unknown) ordered. (units unknown) (unknown) (unknown) (no date) (unknown) (unknown) oxycodone 5 mg table t 5 mg PO Q4-6H PRN Pain, Moderate 10/06/22 (units unknown) (unknown) (unknown) (no date) (unknown) (unknown) pain control for her , her doses were repeated proximally 2 hours after the 1st (units unknown) (unknown) (unknown) (no date) (unknown) (unknown) pain going down her leg, no ecchymosis (units unknown) (unknown) (unknown) (no date) (unknown) (unknown) pain is quite severe , and she is having spasms going down her leg today. Last (units unknown) (unknown) (unknown) (no date) (unknown) (unknown) reduction as patient required complicated reduction in the OR 2 days ago. (units unknown) (unknown) (unknown) (no date) (unknown) (unknown) refill, warm to touc h, no rotation, equivocal length when compared to the right, (units unknown) (unknown) (unknown) (no date) (unknown) (unknown) release (units unknown) (unknown) (unknown) (no date) (unknown) (unknown) solifenacin 10 mg tablet ([facility]) 10 mg PO DAILY 08/13/22 10/02/22 (units unknown) (unknown) (unknown) (no date) (unknown) (unknown) states that she turn ed her head to the right and felt a pop in her left hip (units unknown) (unknown) (unknown) (no date) (unknown) (unknown) test was negative 2 days ago. (units unknown) (unknown) (unknown) (no date) (unknown) (unknown) time she ate was las t night, states she has not had any food or water today. (units unknown) (unknown) (unknown) (no date) (unknown) (unknown) time. (units unknown) (unknown) (unknown) (no date) (unknown) (unknown) to: Anterior hip dislocation, failure of left hip arthroplasty, associated (units unknown) (unknown) (unknown) (no date) (unknown) (unknown) unremarkable.? No (units unknown) (unknown) (unknown) (no date) (unknown) (unknown) well as prior record s if available. Pertinent records include: Emergency (units unknown) (unknown) Result panel 1383 (unknown) (no date) (unknown) (unknown) 0 /ul (unknown) (unknown) (no date) (unknown) (unknown) 0.4 % (unknown) (unknown) (no date) (unknown) (unknown) 10.7 % (unknown) (unknown) (no date) (unknown) (unknown) 1000 /ul (unknown) (unknown) (no date) (unknown) (unknown) 14.5 % (unknown) (unknown) (no date) (unknown) (unknown) 15.9 % (unknown) (unknown) (no date) (unknown) (unknown) 2.55 x10 6/ul (unknown) (unknown) (no date) (unknown) (unknown) 21.1 % (unknown) (unknown) (no date) (unknown) (unknown) 28.8 pg (unknown) (unknown) (no date) (unknown) (unknown) 34.9 % (unknown) (unknown) (no date) (unknown) (unknown) 400 /ul (unknown) (unknown) (no date) (unknown) (unknown) 470 x10 3/ul (unknown) (unknown) (no date) (unknown) (unknown) 4700 /ul (unknown) (unknown) (no date) (unknown) (unknown) 5.9 % (unknown) (unknown) (no date) (unknown) (unknown) 6.9 x10 3/ul (unknown) (unknown) (no date) (unknown) (unknown) 68.5 % (unknown) (unknown) (no date) (unknown) (unknown) 7.4 g/dl (unknown) (unknown) (no date) (unknown) (unknown) 700 /ul (unknown) (unknown) (no date) (unknown) (unknown) 82.6 fl (unknown) Result panel 1384 (unknown) (no date) (unknown) (unknown) 0.3 mg/dl (unknown) (unknown) (no date) (unknown) (unknown) 0.8 mmol/l (unknown) (unknown) (no date) (unknown) (unknown) 1.00 mg/dl (unknown) (unknown) (no date) (unknown) (unknown) 1.1 (units unknown) (unknown) (unknown) (no date) (unknown) (unknown) 111 mg/dl (unknown) (unknown) (no date) (unknown) (unknown) 111 mg/dl (unknown) (unknown) (no date) (unknown) (unknown) 131 mmol/l (unknown) (unknown) (no date) (unknown) (unknown) 19 iu/l (unknown) (unknown) (no date) (unknown) (unknown) 19 mg/dl (unknown) (unknown) (no date) (unknown) (unknown) 19.0 (units unknown) (unknown) (unknown) (no date) (unknown) (unknown) 2.6 g/dl (unknown) (unknown) (no date) (unknown) (unknown) 2.8 g/dl (unknown) (unknown) (no date) (unknown) (unknown) 23 iu/l (unknown) (unknown) (no date) (unknown) (unknown) 28 mmol/l (unknown) (unknown) (no date) (unknown) (unknown) 3.5 mmol/l (unknown) (unknown) (no date) (unknown) (unknown) 5.4 g/dl (unknown) (unknown) (no date) (unknown) (unknown) 60 ml/min (unknown) (unknown) (no date) (unknown) (unknown) 60 ml/min (unknown) (unknown) (no date) (unknown) (unknown) 8.0 mg/dl (unknown) (unknown) (no date) (unknown) (unknown) 93 u/l (unknown) (unknown) (no date) (unknown) (unknown) 98 mmol/l (unknown) Result panel 1385 (unknown) (no date) (unknown) (unknown) 0.3 mg/dl (unknown) (unknown) (no date) (unknown) (unknown) 0.47 ng/ml (unknown) (unknown) (no date) (unknown) (unknown) 0.47 ng/ml (unknown) (unknown) (no date) (unknown) (unknown) 1.00 mg/dl (unknown) (unknown) (no date) (unknown) (unknown) 1.1 (units unknown) (unknown) (unknown) (no date) (unknown) (unknown) 111 mg/dl (unknown) (unknown) (no date) (unknown) (unknown) 111 mg/dl (unknown) (unknown) (no date) (unknown) (unknown) 131 mmol/l (unknown) (unknown) (no date) (unknown) (unknown) 19 iu/l (unknown) (unknown) (no date) (unknown) (unknown) 19 mg/dl (unknown) (unknown) (no date) (unknown) (unknown) 19.0 (units unknown) (unknown) (unknown) (no date) (unknown) (unknown) 2.6 g/dl (unknown) (unknown) (no date) (unknown) (unknown) 2.8 g/dl (unknown) (unknown) (no date) (unknown) (unknown) 23 iu/l (unknown) (unknown) (no date) (unknown) (unknown) 28 mmol/l (unknown) (unknown) (no date) (unknown) (unknown) 3.5 mmol/l (unknown) (unknown) (no date) (unknown) (unknown) 5.4 g/dl (unknown) (unknown) (no date) (unknown) (unknown) 60 ml/min (unknown) (unknown) (no date) (unknown) (unknown) 60 ml/min (unknown) (unknown) (no date) (unknown) (unknown) 8.0 mg/dl (unknown) (unknown) (no date) (unknown) (unknown) 93 u/l (unknown) (unknown) (no date) (unknown) (unknown) 98 mmol/l (unknown) Result panel 1386 (unknown) (no date) (unknown) (unknown) (no value) (units unknown) (unknown) (unknown) (no date) (unknown) (unknown) #90 tabs (units unknown) (unknown) (unknown) (no date) (unknown) (unknown) (4-6) #60 tabs (units unknown) (unknown) (unknown) (no date) (unknown) (unknown) (Vistaril) caps (units unknown) (unknown) (unknown) (no date) (unknown) (unknown) (Zegerid) (units unknown) (unknown) (unknown) (no date) (unknown) (unknown) 00:00 (units unknown) (unknown) (unknown) (no date) (unknown) (unknown) 00:23 00:23 00:23 (units unknown) (unknown) (unknown) (no date) (unknown) (unknown) 00:30 (units unknown) (unknown) (unknown) (no date) (unknown) (unknown) 10/20/22 23:20 (units unknown) (unknown) (unknown) (no date) (unknown) (unknown) 10/20/22 23:33 (units unknown) (unknown) (unknown) (no date) (unknown) (unknown) 10/20/22 23:34 (units unknown) (unknown) (unknown) (no date) (unknown) (unknown) 10/20/22 (units unknown) (unknown) (unknown) (no date) (unknown) (unknown) 10/21/22 00:23 (units unknown) (unknown) (unknown) (no date) (unknown) (unknown) 10/21/22 10/21/22 10/21/22 Range/Units (units unknown) (unknown) (unknown) (no date) (unknown) (unknown) 10/21/22 (units unknown) (unknown) (unknown) (no date) (unknown) (unknown) 0RF (units unknown) (unknown) (unknown) (no date) (unknown) (unknown) 1 - 2 tab PO BID (units unknown) (unknown) (unknown) (no date) (unknown) (unknown) 1 cap PO DAILY PRN (Reason: GI Upset) (units unknown) (unknown) (unknown) (no date) (unknown) (unknown) 10 mg PO DAILY PRN (Reason: Seasonal allergies) (units unknown) (unknown) (unknown) (no date) (unknown) (unknown) 10 mg PO DAILY (units unknown) (unknown) (unknown) (no date) (unknown) (unknown) 100 mg PO BID PRN (Reason: constipation) Qty: 30 0RF (units unknown) (unknown) (unknown) (no date) (unknown) (unknown) 20 mg PO BEDTIME (units unknown) (unknown) (unknown) (no date) (unknown) (unknown) 20 mg PO DAILY (units unknown) (unknown) (unknown) (no date) (unknown) (unknown) 23:20 10/20/22 (units unknown) (unknown) (unknown) (no date) (unknown) (unknown) 23:24 10/20/22 (units unknown) (unknown) (unknown) (no date) (unknown) (unknown) 23:26 10/20/22 (units unknown) (unknown) (unknown) (no date) (unknown) (unknown) 23:26 (units unknown) (unknown) (unknown) (no date) (unknown) (unknown) 23:30 10/21/22 (units unknown) (unknown) (unknown) (no date) (unknown) (unknown) 25 mg PO TID-QID PRN (Reason: itching) Qty: 60 0RF (units unknown) (unknown) (unknown) (no date) (unknown) (unknown) 3151 (units unknown) (unknown) (unknown) (no date) (unknown) (unknown) 400 mg PO Q4H MDD Ma x 2400 mg per day PRN (Reason: Pain/inflammation) Qty: 90 (units unknown) (unknown) (unknown) (no date) (unknown) (unknown) 5 mg PO Q4-6H PRN (Reason: Pain, Moderate (4-6)) Qty: 60 0RF (units unknown) (unknown) (unknown) (no date) (unknown) (unknown) 650 mg PO Q6H MDD Ma x 3000 mg per day PRN (Reason: fever or pain) Qty: 90 0RF (units unknown) (unknown) (unknown) (no date) (unknown) (unknown) 81 mg PO BID 42 Days Qty: 84 0RF (units unknown) (unknown) (unknown) (no date) (unknown) (unknown) ALT 19 (<35) IU/L (units unknown) (unknown) (unknown) (no date) (unknown) (unknown) AST 23 (14-36) IU/L (units unknown) (unknown) (unknown) (no date) (unknown) (unknown) Age/Sex: 72 / F (units unknown) (unknown) (unknown) (no date) (unknown) (unknown) Albumin 2.8 L (3.5-5.0) g/dL (units unknown) (unknown) (unknown) (no date) (unknown) (unknown) Albumin/Globulin Rat io 1.1 (1.0-2.8) (units unknown) (unknown) (unknown) (no date) (unknown) (unknown) Alkaline Phosphatase 93 (38-126) U/L (units unknown) (unknown) (unknown) (no date) (unknown) (unknown) Allergies (units unknown) (unknown) (unknown) (no date) (unknown) (unknown) Allergy/AdvReac Type Severity Reaction Status Date / Time (units unknown) (unknown) (unknown) (no date) (unknown) (unknown) BUN 19 H (7-17) mg/dL (units unknown) (unknown) (unknown) (no date) (unknown) (unknown) BUN/Creatinine Ratio 19.0 (6-22) (units unknown) (unknown) (unknown) (no date) (unknown) (unknown) Baso # (Auto) 0 (0-100) /uL (units unknown) (unknown) (unknown) (no date) (unknown) (unknown) Baso % (Auto) 0.4 (0-2) % (units unknown) (unknown) (unknown) (no date) (unknown) (unknown) Blood Culture Stat (units unknown) (unknown) (unknown) (no date) (unknown) (unknown) Blood Pressure 132/6 0 10/20/22 23:20 (units unknown) (unknown) (unknown) (no date) (unknown) (unknown) Blood Pressure 132/60 (units unknown) (unknown) (unknown) (no date) (unknown) (unknown) Blood Pressure (units unknown) (unknown) (unknown) (no date) (unknown) (unknown) CBC Auto Diff [Complete Blood Count AUTO DIFF] Stat (units unknown) (unknown) (unknown) (no date) (unknown) (unknown) CMP [Comprehensive Metabolic Panel] Stat (units unknown) (unknown) (unknown) (no date) (unknown) (unknown) Calcium 8.0 L (8.4-10.2) mg/dL (units unknown) (unknown) (unknown) (no date) (unknown) (unknown) Carbon Dioxide 28 (22-32) mmol/L (units unknown) (unknown) (unknown) (no date) (unknown) (unknown) Chief Complaint: Wound/Laceration (units unknown) (unknown) (unknown) (no date) (unknown) (unknown) Chloride 98 (98-107) mmol/L (units unknown) (unknown) (unknown) (no date) (unknown) (unknown) Course (units unknown) (unknown) (unknown) (no date) (unknown) (unknown) Creatinine 1.00 (0.52-1.04) mg/dL (units unknown) (unknown) (unknown) (no date) (unknown) (unknown) : 1950 Acct:[id number] (units unknown) (unknown) (unknown) (no date) (unknown) (unknown) Date of Service: 10/20/22 (units unknown) (unknown) (unknown) (no date) (unknown) (unknown) Departure (units unknown) (unknown) (unknown) (no date) (unknown) (unknown) Depression (units unknown) (unknown) (unknown) (no date) (unknown) (unknown) Discharge Plan (units unknown) (unknown) (unknown) (no date) (unknown) (unknown) Diverticulitis (units unknown) (unknown) (unknown) (no date) (unknown) (unknown) ED Orders (units unknown) (unknown) (unknown) (no date) (unknown) (unknown) ER Physician: Alicia Coreas D.O. (units unknown) (unknown) (unknown) (no date) (unknown) (unknown) Emergency Report (units unknown) (unknown) (unknown) (no date) (unknown) (unknown) Eos # (Auto) 400 (0-450) /uL (units unknown) (unknown) (unknown) (no date) (unknown) (unknown) Eos % (Auto) 5.9 H (2-4) % (units unknown) (unknown) (unknown) (no date) (unknown) (unknown) Estimated GFR 60 (>6 0) mL/min (units unknown) (unknown) (unknown) (no date) (unknown) (unknown) Exam (units unknown) (unknown) (unknown) (no date) (unknown) (unknown) Excedrin Extra Strength 250-250-65 mg Tablet (units unknown) (unknown) (unknown) (no date) (unknown) (unknown) Extra Strength) (units unknown) (unknown) (unknown) (no date) (unknown) (unknown) GERD (gastroesophage al reflux disease) (units unknown) (unknown) (unknown) (no date) (unknown) (unknown) General (units unknown) (unknown) (unknown) (no date) (unknown) (unknown) Globulin 2.6 (1.7-4. 1) g/dL (units unknown) (unknown) (unknown) (no date) (unknown) (unknown) Glucose 111 H (80-11 0) mg/dL (units unknown) (unknown) (unknown) (no date) (unknown) (unknown) HLD (hyperlipidemia) (units unknown) (unknown) (unknown) (no date) (unknown) (unknown) HPI - Wound/Laceration (units unknown) (unknown) (unknown) (no date) (unknown) (unknown) HPI narrative: (units unknown) (unknown) (unknown) (no date) (unknown) (unknown) Hct 21.1 L (36-46) % (units unknown) (unknown) (unknown) (no date) (unknown) (unknown) Hearing impaired (units unknown) (unknown) (unknown) (no date) (unknown) (unknown) Hgb 7.4 L (12.0-16.0 ) g/dL (units unknown) (unknown) (unknown) (no date) (unknown) (unknown) History of Present Illness (units unknown) (unknown) (unknown) (no date) (unknown) (unknown) History of bladder surgery (units unknown) (unknown) (unknown) (no date) (unknown) (unknown) History of total lef t knee replacement (units unknown) (unknown) (unknown) (no date) (unknown) (unknown) History of total rig ht knee replacement (units unknown) (unknown) (unknown) (no date) (unknown) (unknown) Home Medications (units unknown) (unknown) (unknown) (no date) (unknown) (unknown) Hx of left breast biopsy (units unknown) (unknown) (unknown) (no date) (unknown) (unknown) Hx of right breast biopsy (units unknown) (unknown) (unknown) (no date) (unknown) (unknown) Hx of tonsillectomy (units unknown) (unknown) (unknown) (no date) (unknown) (unknown) Initial Vital Signs (units unknown) (unknown) (unknown) (no date) (unknown) (unknown) Initial Vital Signs: (units unknown) (unknown) (unknown) (no date) (unknown) (unknown) [address] [address] (units unknown) (unknown) (unknown) (no date) (unknown) (unknown) Lab Data (units unknown) (unknown) (unknown) (no date) (unknown) (unknown) Lab Results (units unknown) (unknown) (unknown) (no date) (unknown) (unknown) Labs: (units unknown) (unknown) (unknown) (no date) (unknown) (unknown) Lactate (Lactic Acid ) Stat (units unknown) (unknown) (unknown) (no date) (unknown) (unknown) Lactate 0.8 (0.7-2.1 ) mmol/L (units unknown) (unknown) (unknown) (no date) (unknown) (unknown) Lymph # (Auto) 1000 L (3901-9186) /uL (units unknown) (unknown) (unknown) (no date) (unknown) (unknown) Lymph % (Auto) 14.5 L (25-40) % (units unknown) (unknown) (unknown) (no date) (unknown) (unknown) MCH 28.8 (26-34) PG (units unknown) (unknown) (unknown) (no date) (unknown) (unknown) MCHC 34.9 (30-36) % (units unknown) (unknown) (unknown) (no date) (unknown) (unknown) MCV 82.6 (80-100) fL (units unknown) (unknown) (unknown) (no date) (unknown) (unknown) MDM - Wound/Laceration (units unknown) (unknown) (unknown) (no date) (unknown) (unknown) May have 1-2 tabs every 4-6 hrs as needed (units unknown) (unknown) (unknown) (no date) (unknown) (unknown) Medical History (units unknown) (unknown) (unknown) (no date) (unknown) (unknown) Medication Instructions Recorded Confirmed (units unknown) (unknown) (unknown) (no date) (unknown) (unknown) Medication Instructions Recorded (units unknown) (unknown) (unknown) (no date) (unknown) (unknown) Mode of arrival: EMS (units unknown) (unknown) (unknown) (no date) (unknown) (unknown) [place] # (Auto) 700 (0-900) /uL (units unknown) (unknown) (unknown) (no date) (unknown) (unknown) [place] % (Auto) 10.7 (3-14) % (units unknown) (unknown) (unknown) (no date) (unknown) (unknown) Neut # (Auto) 4700 (1744-2303) /uL (units unknown) (unknown) (unknown) (no date) (unknown) (unknown) Neut % (Auto) 68.5 (50-75) % (units unknown) (unknown) (unknown) (no date) (unknown) (unknown) No Action (units unknown) (unknown) (unknown) (no date) (unknown) (unknown) No Known Drug Allergies Allergy Verified 10/02/22 18:28 (units unknown) (unknown) (unknown) (no date) (unknown) (unknown) Ordered: (units unknown) (unknown) (unknown) (no date) (unknown) (unknown) Orders (units unknown) (unknown) (unknown) (no date) (unknown) (unknown) Osteoarthritis (units unknown) (unknown) (unknown) (no date) (unknown) (unknown) Oxygen Delivery Meth od Room Air 10/20/22 23:20 (units unknown) (unknown) (unknown) (no date) (unknown) (unknown) Oxygen Delivery Meth od Room Air (units unknown) (unknown) (unknown) (no date) (unknown) (unknown) Oxygen Delivery Method (units unknown) (unknown) (unknown) (no date) (unknown) (unknown) Pain/inflammation #9 0 tabs (units unknown) (unknown) (unknown) (no date) (unknown) (unknown) Patient History (units unknown) (unknown) (unknown) (no date) (unknown) (unknown) Patient is a 72-year-old female (units unknown) (unknown) (unknown) (no date) (unknown) (unknown) Patient: Barbara Garcia MR#: [id number] (units unknown) (unknown) (unknown) (no date) (unknown) (unknown) Plt Count 470 H (150-400) X103/uL (units unknown) (unknown) (unknown) (no date) (unknown) (unknown) Potassium 3.5 (3.4-5.1) mmol/L (units unknown) (unknown) (unknown) (no date) (unknown) (unknown) Prescriptions: (units unknown) (unknown) (unknown) (no date) (unknown) (unknown) Prevent blood clots (units unknown) (unknown) (unknown) (no date) (unknown) (unknown) Previous Rx's (units unknown) (unknown) (unknown) (no date) (unknown) (unknown) Procalcitonin 0.47 (<0.5) ng/mL (units unknown) (unknown) (unknown) (no date) (unknown) (unknown) Procalcitonin Stat (units unknown) (unknown) (unknown) (no date) (unknown) (unknown) Pulse Oximetry 95 10/20/22 23:20 (units unknown) (unknown) (unknown) (no date) (unknown) (unknown) Pulse Oximetry 95 94 97 (units unknown) (unknown) (unknown) (no date) (unknown) (unknown) Pulse Oximetry 96 96 (units unknown) (unknown) (unknown) (no date) (unknown) (unknown) Pulse Oximetry 98 (units unknown) (unknown) (unknown) (no date) (unknown) (unknown) Pulse Rate 71 23:20 (units unknown) (unknown) (unknown) (no date) (unknown) (unknown) Pulse Rate 71 83 (units unknown) (unknown) (unknown) (no date) (unknown) (unknown) Pulse Rate 79 80 (units unknown) (unknown) (unknown) (no date) (unknown) (unknown) Pulse Rate 79 (units unknown) (unknown) (unknown) (no date) (unknown) (unknown) RBC 2.55 L (4.0-5.2) X106/uL (units unknown) (unknown) (unknown) (no date) (unknown) (unknown) RDW 15.9 H (11.6-14. 8) % (units unknown) (unknown) (unknown) (no date) (unknown) (unknown) Referrals: (units unknown) (unknown) (unknown) (no date) (unknown) (unknown) Related Data (units unknown) (unknown) (unknown) (no date) (unknown) (unknown) Respiratory Rate 20 10/20/22 23:20 (units unknown) (unknown) (unknown) (no date) (unknown) (unknown) Respiratory Rate 20 (units unknown) (unknown) (unknown) (no date) (unknown) (unknown) Respiratory Rate (units unknown) (unknown) (unknown) (no date) (unknown) (unknown) Rx Instructions: (units unknown) (unknown) (unknown) (no date) (unknown) (unknown) Seasonal allergies (units unknown) (unknown) (unknown) (no date) (unknown) (unknown) Signed By: (units unknown) (unknown) (unknown) (no date) (unknown) (unknown) Smoking Status: Alejandralane caryn smoker (units unknown) (unknown) (unknown) (no date) (unknown) (unknown) Social History (units unknown) (unknown) (unknown) (no date) (unknown) (unknown) Sodium 131 L (137-14 5) mmol/L (units unknown) (unknown) (unknown) (no date) (unknown) (unknown) Source: patient and EMS (units unknown) (unknown) (unknown) (no date) (unknown) (unknown) Stated Complaint: Green Drainage/Bleeding (units unknown) (unknown) (unknown) (no date) (unknown) (unknown) Substance Use Type: does not use (units unknown) (unknown) (unknown) (no date) (unknown) (unknown) Surgical History (units unknown) (unknown) (unknown) (no date) (unknown) (unknown) Temperature 98.4 F 10/20/22 23:20 (units unknown) (unknown) (unknown) (no date) (unknown) (unknown) Temperature 98.4 F (units unknown) (unknown) (unknown) (no date) (unknown) (unknown) Temperature (units unknown) (unknown) (unknown) (no date) (unknown) (unknown) Time Seen by Provide r: 10/20/22 23:19 (units unknown) (unknown) (unknown) (no date) (unknown) (unknown) Total Bilirubin 0.3 (0.2-1.3) mg/dL (units unknown) (unknown) (unknown) (no date) (unknown) (unknown) Total Protein 5.4 L (6.3-8.2) g/dL (units unknown) (unknown) (unknown) (no date) (unknown) (unknown) Vital Signs - 8 hr (units unknown) (unknown) (unknown) (no date) (unknown) (unknown) Vital Signs (units unknown) (unknown) (unknown) (no date) (unknown) (unknown) Vital signs: (units unknown) (unknown) (unknown) (no date) (unknown) (unknown) WBC 6.9 (4.5-11.0) X103/uL (units unknown) (unknown) (unknown) (no date) (unknown) (unknown) Wound Culture and Gr am Stain Stat (units unknown) (unknown) (unknown) (no date) (unknown) (unknown) Maria Teresa Larsen PA-C [Primary Care Provider] (units unknown) (unknown) (unknown) (no date) (unknown) (unknown) [Embedded Image Not Available] (units unknown) (unknown) (unknown) (no date) (unknown) (unknown) acetaminophen 325 mg Tablet (units unknown) (unknown) (unknown) (no date) (unknown) (unknown) acetaminophen 325 mg tablet 650 mg PO Q6H PRN fever or pain 09/15/22 (units unknown) (unknown) (unknown) (no date) (unknown) (unknown) alcohol intake frequency: holidays/special occasions only (units unknown) (unknown) (unknown) (no date) (unknown) (unknown) alcohol intake: current (units unknown) (unknown) (unknown) (no date) (unknown) (unknown) allergies (units unknown) (unknown) (unknown) (no date) (unknown) (unknown) aspirin 81 mg Tablet,Delayed Release (Dr/Ec) (units unknown) (unknown) (unknown) (no date) (unknown) (unknown) aspirin 81 mg tablet,delayed 81 mg PO BID 6 weeks #84 tabs 09/15/22 (units unknown) (unknown) (unknown) (no date) (unknown) (unknown) aspirin-acetaminophe n- caffeine 250 1 - 2 tab PO BID 08/13/22 10/02/22 (units unknown) (unknown) (unknown) (no date) (unknown) (unknown) atorvastatin 20 mg Tablet (units unknown) (unknown) (unknown) (no date) (unknown) (unknown) atorvastatin 20 mg tablet 20 mg PO BEDTIME 08/13/22 10/02/22 (units unknown) (unknown) (unknown) (no date) (unknown) (unknown) bicarbonate 1.1 gram capsule (units unknown) (unknown) (unknown) (no date) (unknown) (unknown) caps (units unknown) (unknown) (unknown) (no date) (unknown) (unknown) cetirizine 10 mg tablet (Zyrtec) 10 mg PO DAILY PRN Seasonal 08/13/22 10/02/22 (units unknown) (unknown) (unknown) (no date) (unknown) (unknown) cetirizine [Zyrtec] 10 mg Tablet (units unknown) (unknown) (unknown) (no date) (unknown) (unknown) docusate sodium 100 mg Capsule (units unknown) (unknown) (unknown) (no date) (unknown) (unknown) docusate sodium 100 mg capsule 100 mg PO BID PRN constipation #30 09/15/22 (units unknown) (unknown) (unknown) (no date) (unknown) (unknown) escitalopram oxalate 20 mg Tablet (units unknown) (unknown) (unknown) (no date) (unknown) (unknown) escitalopram oxalate 20 mg tablet 20 mg PO DAILY 08/13/22 10/02/22 (units unknown) (unknown) (unknown) (no date) (unknown) (unknown) household members: spouse (units unknown) (unknown) (unknown) (no date) (unknown) (unknown) hydroxyzine pamoate 25 mg capsule 25 mg PO TID-QID PRN itching #60 09/30/22 (units unknown) (unknown) (unknown) (no date) (unknown) (unknown) hydroxyzine pamoate [Vistaril] 25 mg capsule (units unknown) (unknown) (unknown) (no date) (unknown) (unknown) ibuprofen 400 mg Tablet (units unknown) (unknown) (unknown) (no date) (unknown) (unknown) ibuprofen 400 mg tablet 400 mg PO Q4H PRN 09/15/22 (units unknown) (unknown) (unknown) (no date) (unknown) (unknown) mg-250 mg-65 mg tabl et (Excedrin (units unknown) (unknown) (unknown) (no date) (unknown) (unknown) omeprazole 20 mg-sodium 1 cap PO DAILY PRN GI Upset 08/13/22 10/02/22 (units unknown) (unknown) (unknown) (no date) (unknown) (unknown) omeprazole-sodium bicarbonate [Zegerid] 20-1.1 mg-gram Capsule (units unknown) (unknown) (unknown) (no date) (unknown) (unknown) oxycodone 5 mg Tablet (units unknown) (unknown) (unknown) (no date) (unknown) (unknown) oxycodone 5 mg table t 5 mg PO Q4-6H PRN Pain, Moderate 10/06/22 (units unknown) (unknown) (unknown) (no date) (unknown) (unknown) release (units unknown) (unknown) (unknown) (no date) (unknown) (unknown) solifenacin 10 mg tablet (Vesicare) 10 mg PO DAILY 08/13/22 10/02/22 (units unknown) (unknown) (unknown) (no date) (unknown) (unknown) solifenacin [Vesicar e] 10 mg Tablet (units unknown) (unknown) Result panel [id number] (unknown) (no date) (unknown) (unknown) (no value) (units unknown) (unknown) (unknown) (no date) (unknown) (unknown) #90 tabs (units unknown) (unknown) (unknown) (no date) (unknown) (unknown) (4-6) #60 tabs (units unknown) (unknown) (unknown) (no date) (unknown) (unknown) (Vistaril) caps (units unknown) (unknown) (unknown) (no date) (unknown) (unknown) (Zegerid) (units unknown) (unknown) (unknown) (no date) (unknown) (unknown) 00:00 (units unknown) (unknown) (unknown) (no date) (unknown) (unknown) 00:23 00:23 00:23 (units unknown) (unknown) (unknown) (no date) (unknown) (unknown) 00:30 (units unknown) (unknown) (unknown) (no date) (unknown) (unknown) 10/20/22 23:20 (units unknown) (unknown) (unknown) (no date) (unknown) (unknown) 10/20/22 23:33 (units unknown) (unknown) (unknown) (no date) (unknown) (unknown) 10/20/22 23:34 (units unknown) (unknown) (unknown) (no date) (unknown) (unknown) 10/20/22 (units unknown) (unknown) (unknown) (no date) (unknown) (unknown) 10/21/22 00:23 (units unknown) (unknown) (unknown) (no date) (unknown) (unknown) 10/21/22 10/21/22 10/21/22 Range/Units (units unknown) (unknown) (unknown) (no date) (unknown) (unknown) 10/21/22 (units unknown) (unknown) (unknown) (no date) (unknown) (unknown) 0RF (units unknown) (unknown) (unknown) (no date) (unknown) (unknown) 1 - 2 tab PO BID (units unknown) (unknown) (unknown) (no date) (unknown) (unknown) 1 cap PO DAILY PRN (Reason: GI Upset) (units unknown) (unknown) (unknown) (no date) (unknown) (unknown) 10 mg PO DAILY PRN (Reason: Seasonal allergies) (units unknown) (unknown) (unknown) (no date) (unknown) (unknown) 10 mg PO DAILY (units unknown) (unknown) (unknown) (no date) (unknown) (unknown) 100 mg PO BID PRN (Reason: constipation) Qty: 30 0RF (units unknown) (unknown) (unknown) (no date) (unknown) (unknown) 20 mg PO BEDTIME (units unknown) (unknown) (unknown) (no date) (unknown) (unknown) 20 mg PO DAILY (units unknown) (unknown) (unknown) (no date) (unknown) (unknown) 23:20 10/20/22 (units unknown) (unknown) (unknown) (no date) (unknown) (unknown) 23:24 10/20/22 (units unknown) (unknown) (unknown) (no date) (unknown) (unknown) 23:26 10/20/22 (units unknown) (unknown) (unknown) (no date) (unknown) (unknown) 23:26 (units unknown) (unknown) (unknown) (no date) (unknown) (unknown) 23:30 10/21/22 (units unknown) (unknown) (unknown) (no date) (unknown) (unknown) 25 mg PO TID-QID PRN (Reason: itching) Qty: 60 0RF (units unknown) (unknown) (unknown) (no date) (unknown) (unknown) 3151 (units unknown) (unknown) (unknown) (no date) (unknown) (unknown) 400 mg PO Q4H MDD Ma x 2400 mg per day PRN (Reason: Pain/inflammation) Qty: 90 (units unknown) (unknown) (unknown) (no date) (unknown) (unknown) 5 mg PO Q4-6H PRN (Reason: Pain, Moderate (4-6)) Qty: 60 0RF (units unknown) (unknown) (unknown) (no date) (unknown) (unknown) 650 mg PO Q6H MDD Ma x 3000 mg per day PRN (Reason: fever or pain) Qty: 90 0RF (units unknown) (unknown) (unknown) (no date) (unknown) (unknown) 81 mg PO BID 42 Days Qty: 84 0RF (units unknown) (unknown) (unknown) (no date) (unknown) (unknown) ALT 19 (<35) IU/L (units unknown) (unknown) (unknown) (no date) (unknown) (unknown) AST 23 (14-36) IU/L (units unknown) (unknown) (unknown) (no date) (unknown) (unknown) Age/Sex: 72 / F (units unknown) (unknown) (unknown) (no date) (unknown) (unknown) Albumin 2.8 L (3.5-5.0) g/dL (units unknown) (unknown) (unknown) (no date) (unknown) (unknown) Albumin/Globulin Rat io 1.1 (1.0-2.8) (units unknown) (unknown) (unknown) (no date) (unknown) (unknown) Alkaline Phosphatase 93 (38-126) U/L (units unknown) (unknown) (unknown) (no date) (unknown) (unknown) Allergies (units unknown) (unknown) (unknown) (no date) (unknown) (unknown) Allergy/AdvReac Type Severity Reaction Status Date / Time (units unknown) (unknown) (unknown) (no date) (unknown) (unknown) BUN 19 H (7-17) mg/dL (units unknown) (unknown) (unknown) (no date) (unknown) (unknown) BUN/Creatinine Ratio 19.0 (6-22) (units unknown) (unknown) (unknown) (no date) (unknown) (unknown) Baso # (Auto) 0 (0-100) /uL (units unknown) (unknown) (unknown) (no date) (unknown) (unknown) Baso % (Auto) 0.4 (0-2) % (units unknown) (unknown) (unknown) (no date) (unknown) (unknown) Blood Culture Stat (units unknown) (unknown) (unknown) (no date) (unknown) (unknown) Blood Pressure 132/6 0 10/20/22 23:20 (units unknown) (unknown) (unknown) (no date) (unknown) (unknown) Blood Pressure 132/60 (units unknown) (unknown) (unknown) (no date) (unknown) (unknown) Blood Pressure (units unknown) (unknown) (unknown) (no date) (unknown) (unknown) CBC Auto Diff [Complete Blood Count AUTO DIFF] Stat (units unknown) (unknown) (unknown) (no date) (unknown) (unknown) CMP [Comprehensive Metabolic Panel] Stat (units unknown) (unknown) (unknown) (no date) (unknown) (unknown) Calcium 8.0 L (8.4-10.2) mg/dL (units unknown) (unknown) (unknown) (no date) (unknown) (unknown) Carbon Dioxide 28 (22-32) mmol/L (units unknown) (unknown) (unknown) (no date) (unknown) (unknown) Chief Complaint: Wound/Laceration (units unknown) (unknown) (unknown) (no date) (unknown) (unknown) Chloride 98 (98-107) mmol/L (units unknown) (unknown) (unknown) (no date) (unknown) (unknown) Course (units unknown) (unknown) (unknown) (no date) (unknown) (unknown) Creatinine 1.00 (0.52-1.04) mg/dL (units unknown) (unknown) (unknown) (no date) (unknown) (unknown) : 1950 Acct:[id number] (units unknown) (unknown) (unknown) (no date) (unknown) (unknown) Date of Service: 10/20/22 (units unknown) (unknown) (unknown) (no date) (unknown) (unknown) Departure (units unknown) (unknown) (unknown) (no date) (unknown) (unknown) Depression (units unknown) (unknown) (unknown) (no date) (unknown) (unknown) Discharge Plan (units unknown) (unknown) (unknown) (no date) (unknown) (unknown) Diverticulitis (units unknown) (unknown) (unknown) (no date) (unknown) (unknown) ED Orders (units unknown) (unknown) (unknown) (no date) (unknown) (unknown) ER Physician: Alicia Coreas D.O. (units unknown) (unknown) (unknown) (no date) (unknown) (unknown) Emergency Report (units unknown) (unknown) (unknown) (no date) (unknown) (unknown) Eos # (Auto) 400 (0-450) /uL (units unknown) (unknown) (unknown) (no date) (unknown) (unknown) Eos % (Auto) 5.9 H (2-4) % (units unknown) (unknown) (unknown) (no date) (unknown) (unknown) Estimated GFR 60 (>6 0) mL/min (units unknown) (unknown) (unknown) (no date) (unknown) (unknown) Exam (units unknown) (unknown) (unknown) (no date) (unknown) (unknown) Excedrin Extra Strength 250-250-65 mg Tablet (units unknown) (unknown) (unknown) (no date) (unknown) (unknown) Extra Strength) (units unknown) (unknown) (unknown) (no date) (unknown) (unknown) GERD (gastroesophage al reflux disease) (units unknown) (unknown) (unknown) (no date) (unknown) (unknown) General (units unknown) (unknown) (unknown) (no date) (unknown) (unknown) Globulin 2.6 (1.7-4. 1) g/dL (units unknown) (unknown) (unknown) (no date) (unknown) (unknown) Glucose 111 H (80-11 0) mg/dL (units unknown) (unknown) (unknown) (no date) (unknown) (unknown) HLD (hyperlipidemia) (units unknown) (unknown) (unknown) (no date) (unknown) (unknown) HPI - Wound/Laceration (units unknown) (unknown) (unknown) (no date) (unknown) (unknown) HPI narrative: (units unknown) (unknown) (unknown) (no date) (unknown) (unknown) Hct 21.1 L (36-46) % (units unknown) (unknown) (unknown) (no date) (unknown) (unknown) Hearing impaired (units unknown) (unknown) (unknown) (no date) (unknown) (unknown) Hgb 7.4 L (12.0-16.0 ) g/dL (units unknown) (unknown) (unknown) (no date) (unknown) (unknown) History of Present Illness (units unknown) (unknown) (unknown) (no date) (unknown) (unknown) History of bladder surgery (units unknown) (unknown) (unknown) (no date) (unknown) (unknown) History of total lef t knee replacement (units unknown) (unknown) (unknown) (no date) (unknown) (unknown) History of total rig ht knee replacement (units unknown) (unknown) (unknown) (no date) (unknown) (unknown) Home Medications (units unknown) (unknown) (unknown) (no date) (unknown) (unknown) Hx of left breast biopsy (units unknown) (unknown) (unknown) (no date) (unknown) (unknown) Hx of right breast biopsy (units unknown) (unknown) (unknown) (no date) (unknown) (unknown) Hx of tonsillectomy (units unknown) (unknown) (unknown) (no date) (unknown) (unknown) Initial Vital Signs (units unknown) (unknown) (unknown) (no date) (unknown) (unknown) Initial Vital Signs: (units unknown) (unknown) (unknown) (no date) (unknown) (unknown) [address] [address] (units unknown) (unknown) (unknown) (no date) (unknown) (unknown) Lab Data (units unknown) (unknown) (unknown) (no date) (unknown) (unknown) Lab Results (units unknown) (unknown) (unknown) (no date) (unknown) (unknown) Labs: (units unknown) (unknown) (unknown) (no date) (unknown) (unknown) Lactate (Lactic Acid ) Stat (units unknown) (unknown) (unknown) (no date) (unknown) (unknown) Lactate 0.8 (0.7-2.1 ) mmol/L (units unknown) (unknown) (unknown) (no date) (unknown) (unknown) Lymph # (Auto) 1000 L (0482-2343) /uL (units unknown) (unknown) (unknown) (no date) (unknown) (unknown) Lymph % (Auto) 14.5 L (25-40) % (units unknown) (unknown) (unknown) (no date) (unknown) (unknown) MCH 28.8 (26-34) PG (units unknown) (unknown) (unknown) (no date) (unknown) (unknown) MCHC 34.9 (30-36) % (units unknown) (unknown) (unknown) (no date) (unknown) (unknown) MCV 82.6 (80-100) fL (units unknown) (unknown) (unknown) (no date) (unknown) (unknown) MDM - Wound/Laceration (units unknown) (unknown) (unknown) (no date) (unknown) (unknown) May have 1-2 tabs every 4-6 hrs as needed (units unknown) (unknown) (unknown) (no date) (unknown) (unknown) Medical History (units unknown) (unknown) (unknown) (no date) (unknown) (unknown) Medication Instructions Recorded Confirmed (units unknown) (unknown) (unknown) (no date) (unknown) (unknown) Medication Instructions Recorded (units unknown) (unknown) (unknown) (no date) (unknown) (unknown) Mode of arrival: EMS (units unknown) (unknown) (unknown) (no date) (unknown) (unknown) [place] # (Auto) 700 (0-900) /uL (units unknown) (unknown) (unknown) (no date) (unknown) (unknown) [place] % (Auto) 10.7 (3-14) % (units unknown) (unknown) (unknown) (no date) (unknown) (unknown) Neut # (Auto) 4700 (6026-0596) /uL (units unknown) (unknown) (unknown) (no date) (unknown) (unknown) Neut % (Auto) 68.5 (50-75) % (units unknown) (unknown) (unknown) (no date) (unknown) (unknown) No Action (units unknown) (unknown) (unknown) (no date) (unknown) (unknown) No Known Drug Allergies Allergy Verified 10/02/22 18:28 (units unknown) (unknown) (unknown) (no date) (unknown) (unknown) Ordered: (units unknown) (unknown) (unknown) (no date) (unknown) (unknown) Orders (units unknown) (unknown) (unknown) (no date) (unknown) (unknown) Osteoarthritis (units unknown) (unknown) (unknown) (no date) (unknown) (unknown) Oxygen Delivery Meth od Room Air 10/20/22 23:20 (units unknown) (unknown) (unknown) (no date) (unknown) (unknown) Oxygen Delivery Meth od Room Air (units unknown) (unknown) (unknown) (no date) (unknown) (unknown) Oxygen Delivery Method (units unknown) (unknown) (unknown) (no date) (unknown) (unknown) Pain/inflammation #9 0 tabs (units unknown) (unknown) (unknown) (no date) (unknown) (unknown) Patient History (units unknown) (unknown) (unknown) (no date) (unknown) (unknown) Patient is a 72-year-old female who had recurrent left hip dislocations had (units unknown) (unknown) (unknown) (no date) (unknown) (unknown) Patient: Barbara Garcia MR#: [id number] (units unknown) (unknown) (unknown) (no date) (unknown) (unknown) Plt Count 470 H (150-400) X103/uL (units unknown) (unknown) (unknown) (no date) (unknown) (unknown) Potassium 3.5 (3.4-5.1) mmol/L (units unknown) (unknown) (unknown) (no date) (unknown) (unknown) Prescriptions: (units unknown) (unknown) (unknown) (no date) (unknown) (unknown) Prevent blood clots (units unknown) (unknown) (unknown) (no date) (unknown) (unknown) Previous Rx's (units unknown) (unknown) (unknown) (no date) (unknown) (unknown) Procalcitonin 0.47 (<0.5) ng/mL (units unknown) (unknown) (unknown) (no date) (unknown) (unknown) Procalcitonin Stat (units unknown) (unknown) (unknown) (no date) (unknown) (unknown) Pulse Oximetry 95 10/20/22 23:20 (units unknown) (unknown) (unknown) (no date) (unknown) (unknown) Pulse Oximetry 95 94 97 (units unknown) (unknown) (unknown) (no date) (unknown) (unknown) Pulse Oximetry 96 96 (units unknown) (unknown) (unknown) (no date) (unknown) (unknown) Pulse Oximetry 98 (units unknown) (unknown) (unknown) (no date) (unknown) (unknown) Pulse Rate 71 23:20 (units unknown) (unknown) (unknown) (no date) (unknown) (unknown) Pulse Rate 71 83 (units unknown) (unknown) (unknown) (no date) (unknown) (unknown) Pulse Rate 79 80 (units unknown) (unknown) (unknown) (no date) (unknown) (unknown) Pulse Rate 79 (units unknown) (unknown) (unknown) (no date) (unknown) (unknown) RBC 2.55 L (4.0-5.2) X106/uL (units unknown) (unknown) (unknown) (no date) (unknown) (unknown) RDW 15.9 H (11.6-14. 8) % (units unknown) (unknown) (unknown) (no date) (unknown) (unknown) Referrals: (units unknown) (unknown) (unknown) (no date) (unknown) (unknown) Related Data (units unknown) (unknown) (unknown) (no date) (unknown) (unknown) Respiratory Rate 20 10/20/22 23:20 (units unknown) (unknown) (unknown) (no date) (unknown) (unknown) Respiratory Rate 20 (units unknown) (unknown) (unknown) (no date) (unknown) (unknown) Respiratory Rate (units unknown) (unknown) (unknown) (no date) (unknown) (unknown) Rx Instructions: (units unknown) (unknown) (unknown) (no date) (unknown) (unknown) Seasonal allergies (units unknown) (unknown) (unknown) (no date) (unknown) (unknown) Signed By: (units unknown) (unknown) (unknown) (no date) (unknown) (unknown) Smoking Status: [place] rubin smoker (units unknown) (unknown) (unknown) (no date) (unknown) (unknown) Social History (units unknown) (unknown) (unknown) (no date) (unknown) (unknown) Sodium 131 L (137-14 5) mmol/L (units unknown) (unknown) (unknown) (no date) (unknown) (unknown) Source: patient and EMS (units unknown) (unknown) (unknown) (no date) (unknown) (unknown) Stated Complaint: Green Drainage/Bleeding (units unknown) (unknown) (unknown) (no date) (unknown) (unknown) Substance Use Type: does not use (units unknown) (unknown) (unknown) (no date) (unknown) (unknown) Surgical History (units unknown) (unknown) (unknown) (no date) (unknown) (unknown) Temperature 98.4 F 10/20/22 23:20 (units unknown) (unknown) (unknown) (no date) (unknown) (unknown) Temperature 98.4 F (units unknown) (unknown) (unknown) (no date) (unknown) (unknown) Temperature (units unknown) (unknown) (unknown) (no date) (unknown) (unknown) Time Seen by Provide r: 10/20/22 23:19 (units unknown) (unknown) (unknown) (no date) (unknown) (unknown) Total Bilirubin 0.3 (0.2-1.3) mg/dL (units unknown) (unknown) (unknown) (no date) (unknown) (unknown) Total Protein 5.4 L (6.3-8.2) g/dL (units unknown) (unknown) (unknown) (no date) (unknown) (unknown) Vital Signs - 8 hr (units unknown) (unknown) (unknown) (no date) (unknown) (unknown) Vital Signs (units unknown) (unknown) (unknown) (no date) (unknown) (unknown) Vital signs: (units unknown) (unknown) (unknown) (no date) (unknown) (unknown) WBC 6.9 (4.5-11.0) X103/uL (units unknown) (unknown) (unknown) (no date) (unknown) (unknown) Wound Culture and Gr am Stain Stat (units unknown) (unknown) (unknown) (no date) (unknown) (unknown) Maria Teresa Larsen PA-C [Primary Care Provider] (units unknown) (unknown) (unknown) (no date) (unknown) (unknown) [Embedded Image Not Available] (units unknown) (unknown) (unknown) (no date) (unknown) (unknown) acetaminophen 325 mg Tablet (units unknown) (unknown) (unknown) (no date) (unknown) (unknown) acetaminophen 325 mg tablet 650 mg PO Q6H PRN fever or pain 09/15/22 (units unknown) (unknown) (unknown) (no date) (unknown) (unknown) alcohol intake frequency: holidays/special occasions only (units unknown) (unknown) (unknown) (no date) (unknown) (unknown) alcohol intake: current (units unknown) (unknown) (unknown) (no date) (unknown) (unknown) allergies (units unknown) (unknown) (unknown) (no date) (unknown) (unknown) aspirin 81 mg Tablet,Delayed Release (Dr/Ec) (units unknown) (unknown) (unknown) (no date) (unknown) (unknown) aspirin 81 mg tablet,delayed 81 mg PO BID 6 weeks #84 tabs 09/15/22 (units unknown) (unknown) (unknown) (no date) (unknown) (unknown) aspirin-acetaminophe n- caffeine 250 1 - 2 tab PO BID 08/13/22 10/02/22 (units unknown) (unknown) (unknown) (no date) (unknown) (unknown) atorvastatin 20 mg Tablet (units unknown) (unknown) (unknown) (no date) (unknown) (unknown) atorvastatin 20 mg tablet 20 mg PO BEDTIME 08/13/22 10/02/22 (units unknown) (unknown) (unknown) (no date) (unknown) (unknown) bicarbonate 1.1 gram capsule (units unknown) (unknown) (unknown) (no date) (unknown) (unknown) caps (units unknown) (unknown) (unknown) (no date) (unknown) (unknown) cetirizine 10 mg tablet (Zyrtec) 10 mg PO DAILY PRN Seasonal 08/13/22 10/02/22 (units unknown) (unknown) (unknown) (no date) (unknown) (unknown) cetirizine [Zyrtec] 10 mg Tablet (units unknown) (unknown) (unknown) (no date) (unknown) (unknown) docusate sodium 100 mg Capsule (units unknown) (unknown) (unknown) (no date) (unknown) (unknown) docusate sodium 100 mg capsule 100 mg PO BID PRN constipation #30 09/15/22 (units unknown) (unknown) (unknown) (no date) (unknown) (unknown) escitalopram oxalate 20 mg Tablet (units unknown) (unknown) (unknown) (no date) (unknown) (unknown) escitalopram oxalate 20 mg tablet 20 mg PO DAILY 08/13/22 10/02/22 (units unknown) (unknown) (unknown) (no date) (unknown) (unknown) household members: spouse (units unknown) (unknown) (unknown) (no date) (unknown) (unknown) hydroxyzine pamoate 25 mg capsule 25 mg PO TID-QID PRN itching #60 09/30/22 (units unknown) (unknown) (unknown) (no date) (unknown) (unknown) hydroxyzine pamoate [Vistaril] 25 mg capsule (units unknown) (unknown) (unknown) (no date) (unknown) (unknown) ibuprofen 400 mg Tablet (units unknown) (unknown) (unknown) (no date) (unknown) (unknown) ibuprofen 400 mg tablet 400 mg PO Q4H PRN 09/15/22 (units unknown) (unknown) (unknown) (no date) (unknown) (unknown) mg-250 mg-65 mg tabl et (Excedrin (units unknown) (unknown) (unknown) (no date) (unknown) (unknown) omeprazole 20 mg-sodium 1 cap PO DAILY PRN GI Upset 08/13/22 10/02/22 (units unknown) (unknown) (unknown) (no date) (unknown) (unknown) omeprazole-sodium bicarbonate [Zegerid] 20-1.1 mg-gram Capsule (units unknown) (unknown) (unknown) (no date) (unknown) (unknown) oxycodone 5 mg Tablet (units unknown) (unknown) (unknown) (no date) (unknown) (unknown) oxycodone 5 mg table t 5 mg PO Q4-6H PRN Pain, Moderate 10/06/22 (units unknown) (unknown) (unknown) (no date) (unknown) (unknown) release (units unknown) (unknown) (unknown) (no date) (unknown) (unknown) revision and surgery on (units unknown) (unknown) (unknown) (no date) (unknown) (unknown) solifenacin 10 mg tablet (Vesicare) 10 mg PO DAILY 08/13/22 10/02/22 (units unknown) (unknown) (unknown) (no date) (unknown) (unknown) solifenacin [Vesicar e] 10 mg Tablet (units unknown) (unknown) Result panel [id number] (unknown) (no date) (unknown) (unknown) (no value) (units unknown) (unknown) (unknown) (no date) (unknown) (unknown) #90 tabs (units unknown) (unknown) (unknown) (no date) (unknown) (unknown) (4-6) #60 tabs (units unknown) (unknown) (unknown) (no date) (unknown) (unknown) (Vistaril) caps (units unknown) (unknown) (unknown) (no date) (unknown) (unknown) (Zegerid) (units unknown) (unknown) (unknown) (no date) (unknown) (unknown) 00:00 (units unknown) (unknown) (unknown) (no date) (unknown) (unknown) 00:23 00:23 00:23 (units unknown) (unknown) (unknown) (no date) (unknown) (unknown) 00:30 (units unknown) (unknown) (unknown) (no date) (unknown) (unknown) 10/20/22 23:20 (units unknown) (unknown) (unknown) (no date) (unknown) (unknown) 10/20/22 23:33 (units unknown) (unknown) (unknown) (no date) (unknown) (unknown) 10/20/22 23:34 (units unknown) (unknown) (unknown) (no date) (unknown) (unknown) 10/20/22 (units unknown) (unknown) (unknown) (no date) (unknown) (unknown) 10/21/22 00:23 (units unknown) (unknown) (unknown) (no date) (unknown) (unknown) 10/21/22 10/21/22 10/21/22 Range/Units (units unknown) (unknown) (unknown) (no date) (unknown) (unknown) 10/21/22 (units unknown) (unknown) (unknown) (no date) (unknown) (unknown) 0RF (units unknown) (unknown) (unknown) (no date) (unknown) (unknown) 1 - 2 tab PO BID (units unknown) (unknown) (unknown) (no date) (unknown) (unknown) 1 cap PO DAILY PRN (Reason: GI Upset) (units unknown) (unknown) (unknown) (no date) (unknown) (unknown) 10 mg PO DAILY PRN (Reason: Seasonal allergies) (units unknown) (unknown) (unknown) (no date) (unknown) (unknown) 10 mg PO DAILY (units unknown) (unknown) (unknown) (no date) (unknown) (unknown) 100 mg PO BID PRN (Reason: constipation) Qty: 30 0RF (units unknown) (unknown) (unknown) (no date) (unknown) (unknown) 20 mg PO BEDTIME (units unknown) (unknown) (unknown) (no date) (unknown) (unknown) 20 mg PO DAILY (units unknown) (unknown) (unknown) (no date) (unknown) (unknown) 23:20 10/20/22 (units unknown) (unknown) (unknown) (no date) (unknown) (unknown) 23:24 10/20/22 (units unknown) (unknown) (unknown) (no date) (unknown) (unknown) 23:26 10/20/22 (units unknown) (unknown) (unknown) (no date) (unknown) (unknown) 23:26 (units unknown) (unknown) (unknown) (no date) (unknown) (unknown) 23:30 10/21/22 (units unknown) (unknown) (unknown) (no date) (unknown) (unknown) 25 mg PO TID-QID PRN (Reason: itching) Qty: 60 0RF (units unknown) (unknown) (unknown) (no date) (unknown) (unknown) 3151 (units unknown) (unknown) (unknown) (no date) (unknown) (unknown) 400 mg PO Q4H MDD Ma x 2400 mg per day PRN (Reason: Pain/inflammation) Qty: 90 (units unknown) (unknown) (unknown) (no date) (unknown) (unknown) 5 mg PO Q4-6H PRN (Reason: Pain, Moderate (4-6)) Qty: 60 0RF (units unknown) (unknown) (unknown) (no date) (unknown) (unknown) 650 mg PO Q6H MDD Ma x 3000 mg per day PRN (Reason: fever or pain) Qty: 90 0RF (units unknown) (unknown) (unknown) (no date) (unknown) (unknown) 81 mg PO BID 42 Days Qty: 84 0RF (units unknown) (unknown) (unknown) (no date) (unknown) (unknown) ABDOMEN: Soft, nontender. Normoactive bowel sounds all 4 quadrants. No (units unknown) (unknown) (unknown) (no date) (unknown) (unknown) ALT 19 (<35) IU/L (units unknown) (unknown) (unknown) (no date) (unknown) (unknown) AST 23 (14-36) IU/L (units unknown) (unknown) (unknown) (no date) (unknown) (unknown) Age/Sex: 72 / F (units unknown) (unknown) (unknown) (no date) (unknown) (unknown) Albumin 2.8 L (3.5-5.0) g/dL (units unknown) (unknown) (unknown) (no date) (unknown) (unknown) Albumin/Globulin Rat io 1.1 (1.0-2.8) (units unknown) (unknown) (unknown) (no date) (unknown) (unknown) Alkaline Phosphatase 93 (38-126) U/L (units unknown) (unknown) (unknown) (no date) (unknown) (unknown) Allergies (units unknown) (unknown) (unknown) (no date) (unknown) (unknown) Allergy/AdvReac Type Severity Reaction Status Date / Time (units unknown) (unknown) (unknown) (no date) (unknown) (unknown) BUN 19 H (7-17) mg/dL (units unknown) (unknown) (unknown) (no date) (unknown) (unknown) BUN/Creatinine Ratio 19.0 (6-22) (units unknown) (unknown) (unknown) (no date) (unknown) (unknown) Baso # (Auto) 0 (0-100) /uL (units unknown) (unknown) (unknown) (no date) (unknown) (unknown) Baso % (Auto) 0.4 (0-2) % (units unknown) (unknown) (unknown) (no date) (unknown) (unknown) Blood Culture Stat (units unknown) (unknown) (unknown) (no date) (unknown) (unknown) Blood Pressure 132/6 0 10/20/22 23:20 (units unknown) (unknown) (unknown) (no date) (unknown) (unknown) Blood Pressure 132/60 (units unknown) (unknown) (unknown) (no date) (unknown) (unknown) Blood Pressure (units unknown) (unknown) (unknown) (no date) (unknown) (unknown) CARDIOVASCULAR: Regular rate and rhythm without murmurs, rubs or gallops. (units unknown) (unknown) (unknown) (no date) (unknown) (unknown) CBC Auto Diff [Complete Blood Count AUTO DIFF] Stat (units unknown) (unknown) (unknown) (no date) (unknown) (unknown) CMP [Comprehensive Metabolic Panel] Stat (units unknown) (unknown) (unknown) (no date) (unknown) (unknown) Calcium 8.0 L (8.4-10.2) mg/dL (units unknown) (unknown) (unknown) (no date) (unknown) (unknown) Carbon Dioxide 28 (22-32) mmol/L (units unknown) (unknown) (unknown) (no date) (unknown) (unknown) Chief Complaint: Wound/Laceration (units unknown) (unknown) (unknown) (no date) (unknown) (unknown) Chloride 98 (98-107) mmol/L (units unknown) (unknown) (unknown) (no date) (unknown) (unknown) Course (units unknown) (unknown) (unknown) (no date) (unknown) (unknown) Creatinine 1.00 (0.52-1.04) mg/dL (units unknown) (unknown) (unknown) (no date) (unknown) (unknown) : 1950 Acct:[id number] (units unknown) (unknown) (unknown) (no date) (unknown) (unknown) Date of Service: 10/20/22 (units unknown) (unknown) (unknown) (no date) (unknown) (unknown) Departure (units unknown) (unknown) (unknown) (no date) (unknown) (unknown) Depression (units unknown) (unknown) (unknown) (no date) (unknown) (unknown) Discharge Plan (units unknown) (unknown) (unknown) (no date) (unknown) (unknown) Diverticulitis (units unknown) (unknown) (unknown) (no date) (unknown) (unknown) ED Orders (units unknown) (unknown) (unknown) (no date) (unknown) (unknown) ER Physician: Alicia Coreas D.O. (units unknown) (unknown) (unknown) (no date) (unknown) (unknown) EXTREMITIES: Normal range of motion, no clubbing or edema. Neurovascularly (units unknown) (unknown) (unknown) (no date) (unknown) (unknown) Emergency Report (units unknown) (unknown) (unknown) (no date) (unknown) (unknown) Eos # (Auto) 400 (0-450) /uL (units unknown) (unknown) (unknown) (no date) (unknown) (unknown) Eos % (Auto) 5.9 H (2-4) % (units unknown) (unknown) (unknown) (no date) (unknown) (unknown) Estimated GFR 60 (>6 0) mL/min (units unknown) (unknown) (unknown) (no date) (unknown) (unknown) Exam (units unknown) (unknown) (unknown) (no date) (unknown) (unknown) Excedrin Extra Strength 250-250-65 mg Tablet (units unknown) (unknown) (unknown) (no date) (unknown) (unknown) Extra Strength) (units unknown) (unknown) (unknown) (no date) (unknown) (unknown) GENERAL: [Well-appearing, well-nourished] and in [no acute] distress. (units unknown) (unknown) (unknown) (no date) (unknown) (unknown) GERD (gastroesophage al reflux disease) (units unknown) (unknown) (unknown) (no date) (unknown) (unknown) : No CVA tenderness (units unknown) (unknown) (unknown) (no date) (unknown) (unknown) General (units unknown) (unknown) (unknown) (no date) (unknown) (unknown) Globulin 2.6 (1.7-4. 1) g/dL (units unknown) (unknown) (unknown) (no date) (unknown) (unknown) Glucose 111 H (80-11 0) mg/dL (units unknown) (unknown) (unknown) (no date) (unknown) (unknown) HEENT: Head atraumatic,EOMI, pupils reactive, face symmetric, [moist] mucous (units unknown) (unknown) (unknown) (no date) (unknown) (unknown) HLD (hyperlipidemia) (units unknown) (unknown) (unknown) (no date) (unknown) (unknown) HPI - Wound/Laceration (units unknown) (unknown) (unknown) (no date) (unknown) (unknown) HPI narrative: (units unknown) (unknown) (unknown) (no date) (unknown) (unknown) Hct 21.1 L (36-46) % (units unknown) (unknown) (unknown) (no date) (unknown) (unknown) Hearing impaired (units unknown) (unknown) (unknown) (no date) (unknown) (unknown) Hgb 7.4 L (12.0-16.0 ) g/dL (units unknown) (unknown) (unknown) (no date) (unknown) (unknown) History of Present Illness (units unknown) (unknown) (unknown) (no date) (unknown) (unknown) History of bladder surgery (units unknown) (unknown) (unknown) (no date) (unknown) (unknown) History of total lef t knee replacement (units unknown) (unknown) (unknown) (no date) (unknown) (unknown) History of total rig ht knee replacement (units unknown) (unknown) (unknown) (no date) (unknown) (unknown) Home Medications (units unknown) (unknown) (unknown) (no date) (unknown) (unknown) Hx of left breast biopsy (units unknown) (unknown) (unknown) (no date) (unknown) (unknown) Hx of right breast biopsy (units unknown) (unknown) (unknown) (no date) (unknown) (unknown) Hx of tonsillectomy (units unknown) (unknown) (unknown) (no date) (unknown) (unknown) Initial Vital Signs (units unknown) (unknown) (unknown) (no date) (unknown) (unknown) Initial Vital Signs: (units unknown) (unknown) (unknown) (no date) (unknown) (unknown) [address] [address] (units unknown) (unknown) (unknown) (no date) (unknown) (unknown) Lab Data (units unknown) (unknown) (unknown) (no date) (unknown) (unknown) Lab Results (units unknown) (unknown) (unknown) (no date) (unknown) (unknown) Labs: (units unknown) (unknown) (unknown) (no date) (unknown) (unknown) Lactate (Lactic Acid ) Stat (units unknown) (unknown) (unknown) (no date) (unknown) (unknown) Lactate 0.8 (0.7-2.1 ) mmol/L (units unknown) (unknown) (unknown) (no date) (unknown) (unknown) Lymph # (Auto) 1000 L (3541-4999) /uL (units unknown) (unknown) (unknown) (no date) (unknown) (unknown) Lymph % (Auto) 14.5 L (25-40) % (units unknown) (unknown) (unknown) (no date) (unknown) (unknown) MCH 28.8 (26-34) PG (units unknown) (unknown) (unknown) (no date) (unknown) (unknown) MCHC 34.9 (30-36) % (units unknown) (unknown) (unknown) (no date) (unknown) (unknown) MCV 82.6 (80-100) fL (units unknown) (unknown) (unknown) (no date) (unknown) (unknown) MDM - Wound/Laceration (units unknown) (unknown) (unknown) (no date) (unknown) (unknown) May have 1-2 tabs every 4-6 hrs as needed (units unknown) (unknown) (unknown) (no date) (unknown) (unknown) Medical History (units unknown) (unknown) (unknown) (no date) (unknown) (unknown) Medication Instructions Recorded Confirmed (units unknown) (unknown) (unknown) (no date) (unknown) (unknown) Medication Instructions Recorded (units unknown) (unknown) (unknown) (no date) (unknown) (unknown) Mode of arrival: EMS (units unknown) (unknown) (unknown) (no date) (unknown) (unknown) [place] # (Auto) 700 (0-900) /uL (units unknown) (unknown) (unknown) (no date) (unknown) (unknown) [place] % (Auto) 10.7 (3-14) % (units unknown) (unknown) (unknown) (no date) (unknown) (unknown) NEUROLOGICAL: Alert and oriented x4.Normal gait and speech. Cranial nerves II (units unknown) (unknown) (unknown) (no date) (unknown) (unknown) Neut # (Auto) 4700 (8420-4600) /uL (units unknown) (unknown) (unknown) (no date) (unknown) (unknown) Neut % (Auto) 68.5 (50-75) % (units unknown) (unknown) (unknown) (no date) (unknown) (unknown) No Action (units unknown) (unknown) (unknown) (no date) (unknown) (unknown) No Known Drug Allergies Allergy Verified 10/02/22 18:28 (units unknown) (unknown) (unknown) (no date) (unknown) (unknown) Ordered: (units unknown) (unknown) (unknown) (no date) (unknown) (unknown) Orders (units unknown) (unknown) (unknown) (no date) (unknown) (unknown) Osteoarthritis (units unknown) (unknown) (unknown) (no date) (unknown) (unknown) Oxygen Delivery Meth od Room Air 10/20/22 23:20 (units unknown) (unknown) (unknown) (no date) (unknown) (unknown) Oxygen Delivery Meth od Room Air (units unknown) (unknown) (unknown) (no date) (unknown) (unknown) Oxygen Delivery Method (units unknown) (unknown) (unknown) (no date) (unknown) (unknown) Pain/inflammation #9 0 tabs (units unknown) (unknown) (unknown) (no date) (unknown) (unknown) Patient History (units unknown) (unknown) (unknown) (no date) (unknown) (unknown) Patient is a 72-year-old female who had recurrent left hip dislocations had (units unknown) (unknown) (unknown) (no date) (unknown) (unknown) Patient: Barbara Garcia MR#: [id number] (units unknown) (unknown) (unknown) (no date) (unknown) (unknown) Plt Count 470 H (150-400) X103/uL (units unknown) (unknown) (unknown) (no date) (unknown) (unknown) Potassium 3.5 (3.4-5.1) mmol/L (units unknown) (unknown) (unknown) (no date) (unknown) (unknown) Prescriptions: (units unknown) (unknown) (unknown) (no date) (unknown) (unknown) Prevent blood clots (units unknown) (unknown) (unknown) (no date) (unknown) (unknown) Previous Rx's (units unknown) (unknown) (unknown) (no date) (unknown) (unknown) Procalcitonin 0.47 (<0.5) ng/mL (units unknown) (unknown) (unknown) (no date) (unknown) (unknown) Procalcitonin Stat (units unknown) (unknown) (unknown) (no date) (unknown) (unknown) Pulse Oximetry 95 10/20/22 23:20 (units unknown) (unknown) (unknown) (no date) (unknown) (unknown) Pulse Oximetry 95 94 97 (units unknown) (unknown) (unknown) (no date) (unknown) (unknown) Pulse Oximetry 96 96 (units unknown) (unknown) (unknown) (no date) (unknown) (unknown) Pulse Oximetry 98 (units unknown) (unknown) (unknown) (no date) (unknown) (unknown) Pulse Rate 71 23:20 (units unknown) (unknown) (unknown) (no date) (unknown) (unknown) Pulse Rate 71 83 (units unknown) (unknown) (unknown) (no date) (unknown) (unknown) Pulse Rate 79 80 (units unknown) (unknown) (unknown) (no date) (unknown) (unknown) Pulse Rate 79 (units unknown) (unknown) (unknown) (no date) (unknown) (unknown) RBC 2.55 L (4.0-5.2) X106/uL (units unknown) (unknown) (unknown) (no date) (unknown) (unknown) RDW 15.9 H (11.6-14. 8) % (units unknown) (unknown) (unknown) (no date) (unknown) (unknown) RESPIRATORY: Breath sounds equal bilaterally, no wheezes rales or rhonchi. (units unknown) (unknown) (unknown) (no date) (unknown) (unknown) ROS Unobtainable: Al l systems reviewed + are unremarkable except as noted in HPI (units unknown) (unknown) (unknown) (no date) (unknown) (unknown) Referrals: (units unknown) (unknown) (unknown) (no date) (unknown) (unknown) Related Data (units unknown) (unknown) (unknown) (no date) (unknown) (unknown) Respiratory Rate 20 10/20/22 23:20 (units unknown) (unknown) (unknown) (no date) (unknown) (unknown) Respiratory Rate 20 (units unknown) (unknown) (unknown) (no date) (unknown) (unknown) Respiratory Rate (units unknown) (unknown) (unknown) (no date) (unknown) (unknown) Review of Systems (units unknown) (unknown) (unknown) (no date) (unknown) (unknown) Rx Instructions: (units unknown) (unknown) (unknown) (no date) (unknown) (unknown) SKIN: Warm, dry, no laceration, no petechiae, no rashes or lesions. (units unknown) (unknown) (unknown) (no date) (unknown) (unknown) Seasonal allergies (units unknown) (unknown) (unknown) (no date) (unknown) (unknown) She has been ambulating able to bear weight and doing well. Until yesterday (units unknown) (unknown) (unknown) (no date) (unknown) (unknown) Signed By: (units unknown) (unknown) (unknown) (no date) (unknown) (unknown) Smoking Status: [place] rubin smoker (units unknown) (unknown) (unknown) (no date) (unknown) (unknown) Social History (units unknown) (unknown) (unknown) (no date) (unknown) (unknown) Sodium 131 L (137-14 5) mmol/L (units unknown) (unknown) (unknown) (no date) (unknown) (unknown) Source: patient and EMS (units unknown) (unknown) (unknown) (no date) (unknown) (unknown) Stated Complaint: Green Drainage/Bleeding (units unknown) (unknown) (unknown) (no date) (unknown) (unknown) Substance Use Type: does not use (units unknown) (unknown) (unknown) (no date) (unknown) (unknown) Surgical History (units unknown) (unknown) (unknown) (no date) (unknown) (unknown) Temperature 98.4 F 10/20/22 23:20 (units unknown) (unknown) (unknown) (no date) (unknown) (unknown) Temperature 98.4 F (units unknown) (unknown) (unknown) (no date) (unknown) (unknown) Temperature (units unknown) (unknown) (unknown) (no date) (unknown) (unknown) Time Seen by Provide r: 10/20/22 23:19 (units unknown) (unknown) (unknown) (no date) (unknown) (unknown) Total Bilirubin 0.3 (0.2-1.3) mg/dL (units unknown) (unknown) (unknown) (no date) (unknown) (unknown) Total Protein 5.4 L (6.3-8.2) g/dL (units unknown) (unknown) (unknown) (no date) (unknown) (unknown) Vital Signs - 8 hr (units unknown) (unknown) (unknown) (no date) (unknown) (unknown) Vital Signs (units unknown) (unknown) (unknown) (no date) (unknown) (unknown) Vital signs: (units unknown) (unknown) (unknown) (no date) (unknown) (unknown) WBC 6.9 (4.5-11.0) X103/uL (units unknown) (unknown) (unknown) (no date) (unknown) (unknown) Wound Culture and Gr am Stain Stat (units unknown) (unknown) (unknown) (no date) (unknown) (unknown) Maria Teresa Larsen PA-C [Primary Care Provider] (units unknown) (unknown) (unknown) (no date) (unknown) (unknown) [EARS:] [Tympanic membranes visualized, no erythema or bulging, no hemotympanum] (units unknown) (unknown) (unknown) (no date) (unknown) (unknown) [Embedded Image Not Available] (units unknown) (unknown) (unknown) (no date) (unknown) (unknown) [PHARYNX:] [No erythema, no tonsillar exudate, no cervical lymphadenopathy] (units unknown) (unknown) (unknown) (no date) (unknown) (unknown) [RECTAL:] [Hemoccult-positive, no hemorrhoids, nontender] (units unknown) (unknown) (unknown) (no date) (unknown) (unknown) acetaminophen 325 mg Tablet (units unknown) (unknown) (unknown) (no date) (unknown) (unknown) acetaminophen 325 mg tablet 650 mg PO Q6H PRN fever or pain 09/15/22 (units unknown) (unknown) (unknown) (no date) (unknown) (unknown) alcohol intake frequency: holidays/special occasions only (units unknown) (unknown) (unknown) (no date) (unknown) (unknown) alcohol intake: current (units unknown) (unknown) (unknown) (no date) (unknown) (unknown) allergies (units unknown) (unknown) (unknown) (no date) (unknown) (unknown) and below (units unknown) (unknown) (unknown) (no date) (unknown) (unknown) aspirin 81 mg Tablet,Delayed Release (Dr/Ec) (units unknown) (unknown) (unknown) (no date) (unknown) (unknown) aspirin 81 mg tablet,delayed 81 mg PO BID 6 weeks #84 tabs 09/15/22 (units unknown) (unknown) (unknown) (no date) (unknown) (unknown) aspirin-acetaminophe n- caffeine 250 1 - 2 tab PO BID 08/13/22 10/02/22 (units unknown) (unknown) (unknown) (no date) (unknown) (unknown) atorvastatin 20 mg Tablet (units unknown) (unknown) (unknown) (no date) (unknown) (unknown) atorvastatin 20 mg tablet 20 mg PO BEDTIME 08/13/22 10/02/22 (units unknown) (unknown) (unknown) (no date) (unknown) (unknown) bicarbonate 1.1 gram capsule (units unknown) (unknown) (unknown) (no date) (unknown) (unknown) bilaterally, no visu al changes, no facial droop] (units unknown) (unknown) (unknown) (no date) (unknown) (unknown) caps (units unknown) (unknown) (unknown) (no date) (unknown) (unknown) cetirizine 10 mg tablet (Zyrtec) 10 mg PO DAILY PRN Seasonal 08/13/22 10/02/22 (units unknown) (unknown) (unknown) (no date) (unknown) (unknown) cetirizine [Zyrtec] 10 mg Tablet (units unknown) (unknown) (unknown) (no date) (unknown) (unknown) docusate sodium 100 mg Capsule (units unknown) (unknown) (unknown) (no date) (unknown) (unknown) docusate sodium 100 mg capsule 100 mg PO BID PRN constipation #30 09/15/22 (units unknown) (unknown) (unknown) (no date) (unknown) (unknown) drainage from her incision site. No fever or chills. It hurts to move. Site (units unknown) (unknown) (unknown) (no date) (unknown) (unknown) equal bilaterally, n o dysarthria or aphasia, sensation in tact to soft touch (units unknown) (unknown) (unknown) (no date) (unknown) (unknown) escitalopram oxalate 20 mg Tablet (units unknown) (unknown) (unknown) (no date) (unknown) (unknown) escitalopram oxalate 20 mg tablet 20 mg PO DAILY 08/13/22 10/02/22 (units unknown) (unknown) (unknown) (no date) (unknown) (unknown) guarding or rebound. (units unknown) (unknown) (unknown) (no date) (unknown) (unknown) household members: spouse (units unknown) (unknown) (unknown) (no date) (unknown) (unknown) hydroxyzine pamoate 25 mg capsule 25 mg PO TID-QID PRN itching #60 09/30/22 (units unknown) (unknown) (unknown) (no date) (unknown) (unknown) hydroxyzine pamoate [Vistaril] 25 mg capsule (units unknown) (unknown) (unknown) (no date) (unknown) (unknown) ibuprofen 400 mg Tablet (units unknown) (unknown) (unknown) (no date) (unknown) (unknown) ibuprofen 400 mg tablet 400 mg PO Q4H PRN 09/15/22 (units unknown) (unknown) (unknown) (no date) (unknown) (unknown) intact (units unknown) (unknown) (unknown) (no date) (unknown) (unknown) is mildly erythematous. (units unknown) (unknown) (unknown) (no date) (unknown) (unknown) membranes (units unknown) (unknown) (unknown) (no date) (unknown) (unknown) mg-250 mg-65 mg tabl et (Excedrin (units unknown) (unknown) (unknown) (no date) (unknown) (unknown) omeprazole 20 mg-sodium 1 cap PO DAILY PRN GI Upset 08/13/22 10/02/22 (units unknown) (unknown) (unknown) (no date) (unknown) (unknown) omeprazole-sodium bicarbonate [Zegerid] 20-1.1 mg-gram Capsule (units unknown) (unknown) (unknown) (no date) (unknown) (unknown) oxycodone 5 mg Tablet (units unknown) (unknown) (unknown) (no date) (unknown) (unknown) oxycodone 5 mg table t 5 mg PO Q4-6H PRN Pain, Moderate 10/06/22 (units unknown) (unknown) (unknown) (no date) (unknown) (unknown) release (units unknown) (unknown) (unknown) (no date) (unknown) (unknown) 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 She has been at a rehab facility. (units unknown) (unknown) (unknown) (no date) (unknown) (unknown) solifenacin 10 mg tablet (Vesicare) 10 mg PO DAILY 08/13/22 10/02/22 (units unknown) (unknown) (unknown) (no date) (unknown) (unknown) solifenacin [Vesicar e] 10 mg Tablet (units unknown) (unknown) (unknown) (no date) (unknown) (unknown) through XII grossly intact. [Good uqkveh-vz-enst, good sxpx-to-wltv, strength (units unknown) (unknown) (unknown) (no date) (unknown) (unknown) when she started having increased pain unable to bear weight and started having (units unknown) (unknown) Result panel [id number] (unknown) (no date) (unknown) (unknown) (no value) (units unknown) (unknown) (unknown) (no date) (unknown) (unknown) #90 tabs (units unknown) (unknown) (unknown) (no date) (unknown) (unknown) (4-6) #60 tabs (units unknown) (unknown) (unknown) (no date) (unknown) (unknown) (Vistaril) caps (units unknown) (unknown) (unknown) (no date) (unknown) (unknown) (Zegerid) (units unknown) (unknown) (unknown) (no date) (unknown) (unknown) 00:00 (units unknown) (unknown) (unknown) (no date) (unknown) (unknown) 00:23 00:23 00:23 (units unknown) (unknown) (unknown) (no date) (unknown) (unknown) 00:30 (units unknown) (unknown) (unknown) (no date) (unknown) (unknown) 10/20/22 23:20 (units unknown) (unknown) (unknown) (no date) (unknown) (unknown) 10/20/22 23:33 (units unknown) (unknown) (unknown) (no date) (unknown) (unknown) 10/20/22 23:34 (units unknown) (unknown) (unknown) (no date) (unknown) (unknown) 10/20/22 (units unknown) (unknown) (unknown) (no date) (unknown) (unknown) 10/21/22 00:23 (units unknown) (unknown) (unknown) (no date) (unknown) (unknown) 10/21/22 10/21/22 10/21/22 Range/Units (units unknown) (unknown) (unknown) (no date) (unknown) (unknown) 10/21/22 (units unknown) (unknown) (unknown) (no date) (unknown) (unknown) 0RF (units unknown) (unknown) (unknown) (no date) (unknown) (unknown) 1 - 2 tab PO BID (units unknown) (unknown) (unknown) (no date) (unknown) (unknown) 1 cap PO DAILY PRN (Reason: GI Upset) (units unknown) (unknown) (unknown) (no date) (unknown) (unknown) 10 mg PO DAILY PRN (Reason: Seasonal allergies) (units unknown) (unknown) (unknown) (no date) (unknown) (unknown) 10 mg PO DAILY (units unknown) (unknown) (unknown) (no date) (unknown) (unknown) 100 mg PO BID PRN (Reason: constipation) Qty: 30 0RF (units unknown) (unknown) (unknown) (no date) (unknown) (unknown) 20 mg PO BEDTIME (units unknown) (unknown) (unknown) (no date) (unknown) (unknown) 20 mg PO DAILY (units unknown) (unknown) (unknown) (no date) (unknown) (unknown) 23:20 10/20/22 (units unknown) (unknown) (unknown) (no date) (unknown) (unknown) 23:24 10/20/22 (units unknown) (unknown) (unknown) (no date) (unknown) (unknown) 23:26 10/20/22 (units unknown) (unknown) (unknown) (no date) (unknown) (unknown) 23:26 (units unknown) (unknown) (unknown) (no date) (unknown) (unknown) 23:30 10/21/22 (units unknown) (unknown) (unknown) (no date) (unknown) (unknown) 25 mg PO TID-QID PRN (Reason: itching) Qty: 60 0RF (units unknown) (unknown) (unknown) (no date) (unknown) (unknown) 3151 (units unknown) (unknown) (unknown) (no date) (unknown) (unknown) 400 mg PO Q4H MDD Ma x 2400 mg per day PRN (Reason: Pain/inflammation) Qty: 90 (units unknown) (unknown) (unknown) (no date) (unknown) (unknown) 5 mg PO Q4-6H PRN (Reason: Pain, Moderate (4-6)) Qty: 60 0RF (units unknown) (unknown) (unknown) (no date) (unknown) (unknown) 650 mg PO Q6H MDD Ma x 3000 mg per day PRN (Reason: fever or pain) Qty: 90 0RF (units unknown) (unknown) (unknown) (no date) (unknown) (unknown) 81 mg PO BID 42 Days Qty: 84 0RF (units unknown) (unknown) (unknown) (no date) (unknown) (unknown) ALT 19 (<35) IU/L (units unknown) (unknown) (unknown) (no date) (unknown) (unknown) AST 23 (14-36) IU/L (units unknown) (unknown) (unknown) (no date) (unknown) (unknown) Age/Sex: 72 / F (units unknown) (unknown) (unknown) (no date) (unknown) (unknown) Albumin 2.8 L (3.5-5.0) g/dL (units unknown) (unknown) (unknown) (no date) (unknown) (unknown) Albumin/Globulin Rat io 1.1 (1.0-2.8) (units unknown) (unknown) (unknown) (no date) (unknown) (unknown) Alkaline Phosphatase 93 (38-126) U/L (units unknown) (unknown) (unknown) (no date) (unknown) (unknown) Allergies (units unknown) (unknown) (unknown) (no date) (unknown) (unknown) Allergy/AdvReac Type Severity Reaction Status Date / Time (units unknown) (unknown) (unknown) (no date) (unknown) (unknown) BUN 19 H (7-17) mg/dL (units unknown) (unknown) (unknown) (no date) (unknown) (unknown) BUN/Creatinine Ratio 19.0 (6-22) (units unknown) (unknown) (unknown) (no date) (unknown) (unknown) Baso # (Auto) 0 (0-100) /uL (units unknown) (unknown) (unknown) (no date) (unknown) (unknown) Baso % (Auto) 0.4 (0-2) % (units unknown) (unknown) (unknown) (no date) (unknown) (unknown) Blood Culture Stat (units unknown) (unknown) (unknown) (no date) (unknown) (unknown) Blood Pressure 132/6 0 10/20/22 23:20 (units unknown) (unknown) (unknown) (no date) (unknown) (unknown) Blood Pressure 132/60 (units unknown) (unknown) (unknown) (no date) (unknown) (unknown) Blood Pressure (units unknown) (unknown) (unknown) (no date) (unknown) (unknown) CARDIOVASCULAR: Regular rate and rhythm without murmurs, rubs or gallops. (units unknown) (unknown) (unknown) (no date) (unknown) (unknown) CBC Auto Diff [Complete Blood Count AUTO DIFF] Stat (units unknown) (unknown) (unknown) (no date) (unknown) (unknown) CMP [Comprehensive Metabolic Panel] Stat (units unknown) (unknown) (unknown) (no date) (unknown) (unknown) Calcium 8.0 L (8.4-10.2) mg/dL (units unknown) (unknown) (unknown) (no date) (unknown) (unknown) Carbon Dioxide 28 (22-32) mmol/L (units unknown) (unknown) (unknown) (no date) (unknown) (unknown) Chief Complaint: Wound/Laceration (units unknown) (unknown) (unknown) (no date) (unknown) (unknown) Chloride 98 (98-107) mmol/L (units unknown) (unknown) (unknown) (no date) (unknown) (unknown) Course (units unknown) (unknown) (unknown) (no date) (unknown) (unknown) Creatinine 1.00 (0.52-1.04) mg/dL (units unknown) (unknown) (unknown) (no date) (unknown) (unknown) : 1950 Acct:[id number] (units unknown) (unknown) (unknown) (no date) (unknown) (unknown) Date of Service: 10/20/22 (units unknown) (unknown) (unknown) (no date) (unknown) (unknown) Departure (units unknown) (unknown) (unknown) (no date) (unknown) (unknown) Depression (units unknown) (unknown) (unknown) (no date) (unknown) (unknown) Discharge Plan (units unknown) (unknown) (unknown) (no date) (unknown) (unknown) Diverticulitis (units unknown) (unknown) (unknown) (no date) (unknown) (unknown) ED Orders (units unknown) (unknown) (unknown) (no date) (unknown) (unknown) ER Physician: Alicia Coreas D.O. (units unknown) (unknown) (unknown) (no date) (unknown) (unknown) EXTREMITIES: Normal range of motion, no clubbing or edema. Neurovascularly (units unknown) (unknown) (unknown) (no date) (unknown) (unknown) Emergency Report (units unknown) (unknown) (unknown) (no date) (unknown) (unknown) Eos # (Auto) 400 (0-450) /uL (units unknown) (unknown) (unknown) (no date) (unknown) (unknown) Eos % (Auto) 5.9 H (2-4) % (units unknown) (unknown) (unknown) (no date) (unknown) (unknown) Estimated GFR 60 (>6 0) mL/min (units unknown) (unknown) (unknown) (no date) (unknown) (unknown) Exam (units unknown) (unknown) (unknown) (no date) (unknown) (unknown) Excedrin Extra Strength 250-250-65 mg Tablet (units unknown) (unknown) (unknown) (no date) (unknown) (unknown) Extra Strength) (units unknown) (unknown) (unknown) (no date) (unknown) (unknown) GENERAL: 72-year-old female awake alert appears uncomfortable (units unknown) (unknown) (unknown) (no date) (unknown) (unknown) GERD (gastroesophage al reflux disease) (units unknown) (unknown) (unknown) (no date) (unknown) (unknown) General (units unknown) (unknown) (unknown) (no date) (unknown) (unknown) Globulin 2.6 (1.7-4. 1) g/dL (units unknown) (unknown) (unknown) (no date) (unknown) (unknown) Glucose 111 H (80-11 0) mg/dL (units unknown) (unknown) (unknown) (no date) (unknown) (unknown) HEENT: Head atraumatic,EOMI, pupils reactive, face symmetric, moist mucous (units unknown) (unknown) (unknown) (no date) (unknown) (unknown) HLD (hyperlipidemia) (units unknown) (unknown) (unknown) (no date) (unknown) (unknown) HPI - Wound/Laceration (units unknown) (unknown) (unknown) (no date) (unknown) (unknown) HPI narrative: (units unknown) (unknown) (unknown) (no date) (unknown) (unknown) Hct 21.1 L (36-46) % (units unknown) (unknown) (unknown) (no date) (unknown) (unknown) Hearing impaired (units unknown) (unknown) (unknown) (no date) (unknown) (unknown) Hgb 7.4 L (12.0-16.0 ) g/dL (units unknown) (unknown) (unknown) (no date) (unknown) (unknown) History of Present Illness (units unknown) (unknown) (unknown) (no date) (unknown) (unknown) History of bladder surgery (units unknown) (unknown) (unknown) (no date) (unknown) (unknown) History of total lef t knee replacement (units unknown) (unknown) (unknown) (no date) (unknown) (unknown) History of total rig ht knee replacement (units unknown) (unknown) (unknown) (no date) (unknown) (unknown) Home Medications (units unknown) (unknown) (unknown) (no date) (unknown) (unknown) Hx of left breast biopsy (units unknown) (unknown) (unknown) (no date) (unknown) (unknown) Hx of right breast biopsy (units unknown) (unknown) (unknown) (no date) (unknown) (unknown) Hx of tonsillectomy (units unknown) (unknown) (unknown) (no date) (unknown) (unknown) Initial Vital Signs (units unknown) (unknown) (unknown) (no date) (unknown) (unknown) Initial Vital Signs: (units unknown) (unknown) (unknown) (no date) (unknown) (unknown) [address] [address] (units unknown) (unknown) (unknown) (no date) (unknown) (unknown) Lab Data (units unknown) (unknown) (unknown) (no date) (unknown) (unknown) Lab Results (units unknown) (unknown) (unknown) (no date) (unknown) (unknown) Labs: (units unknown) (unknown) (unknown) (no date) (unknown) (unknown) Lactate (Lactic Acid ) Stat (units unknown) (unknown) (unknown) (no date) (unknown) (unknown) Lactate 0.8 (0.7-2.1 ) mmol/L (units unknown) (unknown) (unknown) (no date) (unknown) (unknown) Lymph # (Auto) 1000 L (2960-8204) /uL (units unknown) (unknown) (unknown) (no date) (unknown) (unknown) Lymph % (Auto) 14.5 L (25-40) % (units unknown) (unknown) (unknown) (no date) (unknown) (unknown) MCH 28.8 (26-34) PG (units unknown) (unknown) (unknown) (no date) (unknown) (unknown) MCHC 34.9 (30-36) % (units unknown) (unknown) (unknown) (no date) (unknown) (unknown) MCV 82.6 (80-100) fL (units unknown) (unknown) (unknown) (no date) (unknown) (unknown) MDM - Wound/Laceration (units unknown) (unknown) (unknown) (no date) (unknown) (unknown) May have 1-2 tabs every 4-6 hrs as needed (units unknown) (unknown) (unknown) (no date) (unknown) (unknown) Medical History (units unknown) (unknown) (unknown) (no date) (unknown) (unknown) Medication Instructions Recorded Confirmed (units unknown) (unknown) (unknown) (no date) (unknown) (unknown) Medication Instructions Recorded (units unknown) (unknown) (unknown) (no date) (unknown) (unknown) Mode of arrival: EMS (units unknown) (unknown) (unknown) (no date) (unknown) (unknown) [place] # (Auto) 700 (0-900) /uL (units unknown) (unknown) (unknown) (no date) (unknown) (unknown) [place] % (Auto) 10.7 (3-14) % (units unknown) (unknown) (unknown) (no date) (unknown) (unknown) NEUROLOGICAL: Alert and oriented x4.Normal gait and speech. (units unknown) (unknown) (unknown) (no date) (unknown) (unknown) Neut # (Auto) 4700 (0625-3130) /uL (units unknown) (unknown) (unknown) (no date) (unknown) (unknown) Neut % (Auto) 68.5 (50-75) % (units unknown) (unknown) (unknown) (no date) (unknown) (unknown) No Action (units unknown) (unknown) (unknown) (no date) (unknown) (unknown) No Known Drug Allergies Allergy Verified 10/02/22 18:28 (units unknown) (unknown) (unknown) (no date) (unknown) (unknown) Ordered: (units unknown) (unknown) (unknown) (no date) (unknown) (unknown) Orders (units unknown) (unknown) (unknown) (no date) (unknown) (unknown) Osteoarthritis (units unknown) (unknown) (unknown) (no date) (unknown) (unknown) Oxygen Delivery Meth od Room Air 10/20/22 23:20 (units unknown) (unknown) (unknown) (no date) (unknown) (unknown) Oxygen Delivery Meth od Room Air (units unknown) (unknown) (unknown) (no date) (unknown) (unknown) Oxygen Delivery Method (units unknown) (unknown) (unknown) (no date) (unknown) (unknown) Pain/inflammation #9 0 tabs (units unknown) (unknown) (unknown) (no date) (unknown) (unknown) Patient History (units unknown) (unknown) (unknown) (no date) (unknown) (unknown) Patient is a 72-year-old female who had recurrent left hip dislocations had (units unknown) (unknown) (unknown) (no date) (unknown) (unknown) Patient: Barbara Garcia MR#: [id number] (units unknown) (unknown) (unknown) (no date) (unknown) (unknown) Plt Count 470 H (150-400) X103/uL (units unknown) (unknown) (unknown) (no date) (unknown) (unknown) Potassium 3.5 (3.4-5.1) mmol/L (units unknown) (unknown) (unknown) (no date) (unknown) (unknown) Prescriptions: (units unknown) (unknown) (unknown) (no date) (unknown) (unknown) Prevent blood clots (units unknown) (unknown) (unknown) (no date) (unknown) (unknown) Previous Rx's (units unknown) (unknown) (unknown) (no date) (unknown) (unknown) Procalcitonin 0.47 (<0.5) ng/mL (units unknown) (unknown) (unknown) (no date) (unknown) (unknown) Procalcitonin Stat (units unknown) (unknown) (unknown) (no date) (unknown) (unknown) Pulse Oximetry 95 10/20/22 23:20 (units unknown) (unknown) (unknown) (no date) (unknown) (unknown) Pulse Oximetry 95 94 97 (units unknown) (unknown) (unknown) (no date) (unknown) (unknown) Pulse Oximetry 96 96 (units unknown) (unknown) (unknown) (no date) (unknown) (unknown) Pulse Oximetry 98 (units unknown) (unknown) (unknown) (no date) (unknown) (unknown) Pulse Rate 71 23:20 (units unknown) (unknown) (unknown) (no date) (unknown) (unknown) Pulse Rate 71 83 (units unknown) (unknown) (unknown) (no date) (unknown) (unknown) Pulse Rate 79 80 (units unknown) (unknown) (unknown) (no date) (unknown) (unknown) Pulse Rate 79 (units unknown) (unknown) (unknown) (no date) (unknown) (unknown) RBC 2.55 L (4.0-5.2) X106/uL (units unknown) (unknown) (unknown) (no date) (unknown) (unknown) RDW 15.9 H (11.6-14. 8) % (units unknown) (unknown) (unknown) (no date) (unknown) (unknown) RESPIRATORY: Breath sounds equal bilaterally, no wheezes rales or rhonchi. (units unknown) (unknown) (unknown) (no date) (unknown) (unknown) ROS Unobtainable: Al l systems reviewed + are unremarkable except as noted in HPI (units unknown) (unknown) (unknown) (no date) (unknown) (unknown) Referrals: (units unknown) (unknown) (unknown) (no date) (unknown) (unknown) Related Data (units unknown) (unknown) (unknown) (no date) (unknown) (unknown) Respiratory Rate 20 10/20/22 23:20 (units unknown) (unknown) (unknown) (no date) (unknown) (unknown) Respiratory Rate 20 (units unknown) (unknown) (unknown) (no date) (unknown) (unknown) Respiratory Rate (units unknown) (unknown) (unknown) (no date) (unknown) (unknown) Review of Systems (units unknown) (unknown) (unknown) (no date) (unknown) (unknown) Rx Instructions: (units unknown) (unknown) (unknown) (no date) (unknown) (unknown) SKIN: Left hip incision cecilia in place there is 1 area where there is (units unknown) (unknown) (unknown) (no date) (unknown) (unknown) Seasonal allergies (units unknown) (unknown) (unknown) (no date) (unknown) (unknown) She has been ambulating able to bear weight and doing well. Until yesterday (units unknown) (unknown) (unknown) (no date) (unknown) (unknown) Signed By: (units unknown) (unknown) (unknown) (no date) (unknown) (unknown) Smoking Status: Carmencita rubin smoker (units unknown) (unknown) (unknown) (no date) (unknown) (unknown) Social History (units unknown) (unknown) (unknown) (no date) (unknown) (unknown) Sodium 131 L (137-14 5) mmol/L (units unknown) (unknown) (unknown) (no date) (unknown) (unknown) Source: patient and EMS (units unknown) (unknown) (unknown) (no date) (unknown) (unknown) Stated Complaint: Green Drainage/Bleeding (units unknown) (unknown) (unknown) (no date) (unknown) (unknown) Substance Use Type: does not use (units unknown) (unknown) (unknown) (no date) (unknown) (unknown) Surgical History (units unknown) (unknown) (unknown) (no date) (unknown) (unknown) Temperature 98.4 F 10/20/22 23:20 (units unknown) (unknown) (unknown) (no date) (unknown) (unknown) Temperature 98.4 F (units unknown) (unknown) (unknown) (no date) (unknown) (unknown) Temperature (units unknown) (unknown) (unknown) (no date) (unknown) (unknown) Time Seen by Provide r: 10/20/22 23:19 (units unknown) (unknown) (unknown) (no date) (unknown) (unknown) Total Bilirubin 0.3 (0.2-1.3) mg/dL (units unknown) (unknown) (unknown) (no date) (unknown) (unknown) Total Protein 5.4 L (6.3-8.2) g/dL (units unknown) (unknown) (unknown) (no date) (unknown) (unknown) Vital Signs - 8 hr (units unknown) (unknown) (unknown) (no date) (unknown) (unknown) Vital Signs (units unknown) (unknown) (unknown) (no date) (unknown) (unknown) Vital signs: (units unknown) (unknown) (unknown) (no date) (unknown) (unknown) WBC 6.9 (4.5-11.0) X103/uL (units unknown) (unknown) (unknown) (no date) (unknown) (unknown) Wound Culture and Gr am Stain Stat (units unknown) (unknown) (unknown) (no date) (unknown) (unknown) Maria Teresa Larsen PA-C [Primary Care Provider] (units unknown) (unknown) (unknown) (no date) (unknown) (unknown) [Embedded Image Not Available] (units unknown) (unknown) (unknown) (no date) (unknown) (unknown) acetaminophen 325 mg Tablet (units unknown) (unknown) (unknown) (no date) (unknown) (unknown) acetaminophen 325 mg tablet 650 mg PO Q6H PRN fever or pain 09/15/22 (units unknown) (unknown) (unknown) (no date) (unknown) (unknown) alcohol intake frequency: holidays/special occasions only (units unknown) (unknown) (unknown) (no date) (unknown) (unknown) alcohol intake: current (units unknown) (unknown) (unknown) (no date) (unknown) (unknown) allergies (units unknown) (unknown) (unknown) (no date) (unknown) (unknown) and below (units unknown) (unknown) (unknown) (no date) (unknown) (unknown) aspirin 81 mg Tablet,Delayed Release (Dr/Ec) (units unknown) (unknown) (unknown) (no date) (unknown) (unknown) aspirin 81 mg tablet,delayed 81 mg PO BID 6 weeks #84 tabs 09/15/22 (units unknown) (unknown) (unknown) (no date) (unknown) (unknown) aspirin-acetaminophe n- caffeine 250 1 - 2 tab PO BID 08/13/22 10/02/22 (units unknown) (unknown) (unknown) (no date) (unknown) (unknown) atorvastatin 20 mg Tablet (units unknown) (unknown) (unknown) (no date) (unknown) (unknown) atorvastatin 20 mg tablet 20 mg PO BEDTIME 08/13/22 10/02/22 (units unknown) (unknown) (unknown) (no date) (unknown) (unknown) bicarbonate 1.1 gram capsule (units unknown) (unknown) (unknown) (no date) (unknown) (unknown) caps (units unknown) (unknown) (unknown) (no date) (unknown) (unknown) cetirizine 10 mg tablet (Zyrtec) 10 mg PO DAILY PRN Seasonal 08/13/22 10/02/22 (units unknown) (unknown) (unknown) (no date) (unknown) (unknown) cetirizine [Zyrtec] 10 mg Tablet (units unknown) (unknown) (unknown) (no date) (unknown) (unknown) darkened blood seepi ng out. Minimal erythema around wound (units unknown) (unknown) (unknown) (no date) (unknown) (unknown) docusate sodium 100 mg Capsule (units unknown) (unknown) (unknown) (no date) (unknown) (unknown) docusate sodium 100 mg capsule 100 mg PO BID PRN constipation #30 09/15/22 (units unknown) (unknown) (unknown) (no date) (unknown) (unknown) drainage from her incision site. No fever or chills. It hurts to move. Site (units unknown) (unknown) (unknown) (no date) (unknown) (unknown) escitalopram oxalate 20 mg Tablet (units unknown) (unknown) (unknown) (no date) (unknown) (unknown) escitalopram oxalate 20 mg tablet 20 mg PO DAILY 08/13/22 10/02/22 (units unknown) (unknown) (unknown) (no date) (unknown) (unknown) household members: spouse (units unknown) (unknown) (unknown) (no date) (unknown) (unknown) hydroxyzine pamoate 25 mg capsule 25 mg PO TID-QID PRN itching #60 09/30/22 (units unknown) (unknown) (unknown) (no date) (unknown) (unknown) hydroxyzine pamoate [Vistaril] 25 mg capsule (units unknown) (unknown) (unknown) (no date) (unknown) (unknown) ibuprofen 400 mg Tablet (units unknown) (unknown) (unknown) (no date) (unknown) (unknown) ibuprofen 400 mg tablet 400 mg PO Q4H PRN 09/15/22 (units unknown) (unknown) (unknown) (no date) (unknown) (unknown) intact (units unknown) (unknown) (unknown) (no date) (unknown) (unknown) is mildly erythematous. (units unknown) (unknown) (unknown) (no date) (unknown) (unknown) membranes (units unknown) (unknown) (unknown) (no date) (unknown) (unknown) mg-250 mg-65 mg tabl et (Excedrin (units unknown) (unknown) (unknown) (no date) (unknown) (unknown) omeprazole 20 mg-sodium 1 cap PO DAILY PRN GI Upset 08/13/22 10/02/22 (units unknown) (unknown) (unknown) (no date) (unknown) (unknown) omeprazole-sodium bicarbonate [Zegerid] 20-1.1 mg-gram Capsule (units unknown) (unknown) (unknown) (no date) (unknown) (unknown) oxycodone 5 mg Tablet (units unknown) (unknown) (unknown) (no date) (unknown) (unknown) oxycodone 5 mg table t 5 mg PO Q4-6H PRN Pain, Moderate 10/06/22 (units unknown) (unknown) (unknown) (no date) (unknown) (unknown) release (units unknown) (unknown) (unknown) (no date) (unknown) (unknown) 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 She has been at a rehab facility. (units unknown) (unknown) (unknown) (no date) (unknown) (unknown) solifenacin 10 mg tablet (Vesicare) 10 mg PO DAILY 08/13/22 10/02/22 (units unknown) (unknown) (unknown) (no date) (unknown) (unknown) solifenacin [Vesicar e] 10 mg Tablet (units unknown) (unknown) (unknown) (no date) (unknown) (unknown) when she started having increased pain unable to bear weight and started having (units unknown) (unknown) Result panel 1390 (unknown) (no date) (unknown) (unknown) (no value) (units unknown) (unknown) (unknown) (no date) (unknown) (unknown) Moderate WBCs (units unknown) (unknown) (unknown) (no date) (unknown) (unknown) No organisms seen (units unknown) (unknown) Result panel 1391 (unknown) (no date) (unknown) (unknown) (no value) (units unknown) (unknown) (unknown) (no date) (unknown) (unknown) 10/21/22 (units unknown) (unknown) (unknown) (no date) (unknown) (unknown) 1. Subcutaneous flui d collection within the subcutaneous fat of the left hip as (units unknown) (unknown) (unknown) (no date) (unknown) (unknown) [address] [place] [address] (units unknown) (unknown) (unknown) (no date) (unknown) (unknown) 2. Grade 1 isthmic spondylolisthesis at L5-S1. (units unknown) (unknown) (unknown) (no date) (unknown) (unknown) 10/17/2022, 9:47. (units unknown) (unknown) (unknown) (no date) (unknown) (unknown) [id number] (units unknown) (unknown) (unknown) (no date) (unknown) (unknown) Accession Number: [id number] (units unknown) (unknown) (unknown) (no date) (unknown) (unknown) After the administration of intravenous contrast, 5 mm thick sections acquired (units unknown) (unknown) (unknown) (no date) (unknown) (unknown) Age/Sex: 72 / F Date of Service: (units unknown) (unknown) (unknown) (no date) (unknown) (unknown) [place] [address] (units unknown) (unknown) (unknown) (no date) (unknown) (unknown) Approved by: Nicole Parekh M.D. on 10/21/2022 at 8:13 (units unknown) (unknown) (unknown) (no date) (unknown) (unknown) Bones: No suspicious bony lesions. Anterolisthesis of L5 on S1. Bilateral L5 (units unknown) (unknown) (unknown) (no date) (unknown) (unknown) COMPARISON: [facility] [place], CR, XR PELVIS WITH LATERAL (units unknown) (unknown) (unknown) (no date) (unknown) (unknown) CT Scan Report (units unknown) (unknown) (unknown) (no date) (unknown) (unknown) : 1950 Acct:[id number] (units unknown) (unknown) (unknown) (no date) (unknown) (unknown) Dictated by: Nicole Parekh M.D. on 10/21/2022 at 8:11 (units unknown) (unknown) (unknown) (no date) (unknown) (unknown) FINDINGS: (units unknown) (unknown) (unknown) (no date) (unknown) (unknown) Genitourinary: Bladd er wall thickness is normal. (units unknown) (unknown) (unknown) (no date) (unknown) (unknown) HIP LEFT, (units unknown) (unknown) (unknown) (no date) (unknown) (unknown) IMPRESSION: (units unknown) (unknown) (unknown) (no date) (unknown) (unknown) INDICATIONS: left hi p pain and wound drainage (units unknown) (unknown) (unknown) (no date) (unknown) (unknown) Iliac (units unknown) (unknown) (unknown) (no date) (unknown) (unknown) Image quality: Degraded by left hip arthroplasty artifact. (units unknown) (unknown) (unknown) (no date) (unknown) (unknown) [facility] (units unknown) (unknown) (unknown) (no date) (unknown) (unknown) Loc: 90-1 (units unknown) (unknown) (unknown) (no date) (unknown) (unknown) Miscellaneous: No inguinal hernias. There is a peripherally enhancing fluid (units unknown) (unknown) (unknown) (no date) (unknown) (unknown) Nodes and vessels: N o iliac, pelvic, or inguinal adenopathy by size criteria. (units unknown) (unknown) (unknown) (no date) (unknown) (unknown) Ordering Provider: Alicia Coreas D.O. (units unknown) (unknown) (unknown) (no date) (unknown) (unknown) PROCEDURE: CT PELVIS W CON (units unknown) (unknown) (unknown) (no date) (unknown) (unknown) Patient: Barbara Garcia MR#: [id number] (units unknown) (unknown) (unknown) (no date) (unknown) (unknown) Peritoneum and bowel : Bowel loops demonstrate normal wall thickness and (units unknown) (unknown) (unknown) (no date) (unknown) (unknown) Procedure: CT pelvis w con (units unknown) (unknown) (unknown) (no date) (unknown) (unknown) S1 pars (units unknown) (unknown) (unknown) (no date) (unknown) (unknown) Signed (units unknown) (unknown) (unknown) (no date) (unknown) (unknown) TECHNIQUE: (units unknown) (unknown) (unknown) (no date) (unknown) (unknown) above. (units unknown) (unknown) (unknown) (no date) (unknown) (unknown) acquired. For (units unknown) (unknown) (unknown) (no date) (unknown) (unknown) adjustment (units unknown) (unknown) (unknown) (no date) (unknown) (unknown) at the lateral aspec t of the greater trochanter of the left hip measuring (units unknown) (unknown) (unknown) (no date) (unknown) (unknown) caliber. No (units unknown) (unknown) (unknown) (no date) (unknown) (unknown) collection (units unknown) (unknown) (unknown) (no date) (unknown) (unknown) described (units unknown) (unknown) (unknown) (no date) (unknown) (unknown) free fluid or air. (units unknown) (unknown) (unknown) (no date) (unknown) (unknown) from the (units unknown) (unknown) (unknown) (no date) (unknown) (unknown) iliac crests to the symphysis. 5 mm coronal and sagittal reformats were (units unknown) (unknown) (unknown) (no date) (unknown) (unknown) interarticularis defects. (units unknown) (unknown) (unknown) (no date) (unknown) (unknown) of mA and/or kV according to patient size. (units unknown) (unknown) (unknown) (no date) (unknown) (unknown) radiation dose reduction, the following was used: automated exposure control, (units unknown) (unknown) (unknown) (no date) (unknown) (unknown) roughly 77 mm (units unknown) (unknown) (unknown) (no date) (unknown) (unknown) transverse by 200 mm craniocaudal mm which extends to the skin surface. (units unknown) (unknown) (unknown) (no date) (unknown) (unknown) vessels demonstrate normal size and enhancement. (units unknown) (unknown) Result panel 1392 (unknown) (no date) (unknown) (unknown) (no value) (units unknown) (unknown) (unknown) (no date) (unknown) (unknown) #90 tabs (units unknown) (unknown) (unknown) (no date) (unknown) (unknown) <Electronically sign ed by Alicia Coreas D.O.> (units unknown) (unknown) (unknown) (no date) (unknown) (unknown) (4-6) #60 tabs (units unknown) (unknown) (unknown) (no date) (unknown) (unknown) (Vistaril) caps (units unknown) (unknown) (unknown) (no date) (unknown) (unknown) (Zegerid) (units unknown) (unknown) (unknown) (no date) (unknown) (unknown) 00:00 (units unknown) (unknown) (unknown) (no date) (unknown) (unknown) 00:23 00:23 00:23 (units unknown) (unknown) (unknown) (no date) (unknown) (unknown) 00:30 10/21/22 (units unknown) (unknown) (unknown) (no date) (unknown) (unknown) 01:00 10/21/22 (units unknown) (unknown) (unknown) (no date) (unknown) (unknown) 01:30 (units unknown) (unknown) (unknown) (no date) (unknown) (unknown) 02:00 10/21/22 (units unknown) (unknown) (unknown) (no date) (unknown) (unknown) 02:30 10/21/22 (units unknown) (unknown) (unknown) (no date) (unknown) (unknown) 03:49 10/21/22 (units unknown) (unknown) (unknown) (no date) (unknown) (unknown) 03:52 10/21/22 (units unknown) (unknown) (unknown) (no date) (unknown) (unknown) 03:52 (units unknown) (unknown) (unknown) (no date) (unknown) (unknown) 10/20/22 23:20 (units unknown) (unknown) (unknown) (no date) (unknown) (unknown) 10/20/22 23:33 (units unknown) (unknown) (unknown) (no date) (unknown) (unknown) 10/20/22 23:34 (units unknown) (unknown) (unknown) (no date) (unknown) (unknown) 10/20/22 (units unknown) (unknown) (unknown) (no date) (unknown) (unknown) 10/21/22 00:23 (units unknown) (unknown) (unknown) (no date) (unknown) (unknown) 10/21/22 02:26 (units unknown) (unknown) (unknown) (no date) (unknown) (unknown) 10/21/22 10/21/22 10/21/22 Range/Units (units unknown) (unknown) (unknown) (no date) (unknown) (unknown) 10/21/22 0618 (units unknown) (unknown) (unknown) (no date) (unknown) (unknown) 10/21/22 (units unknown) (unknown) (unknown) (no date) (unknown) (unknown) 23:20 10/20/22 (units unknown) (unknown) (unknown) (no date) (unknown) (unknown) 23:24 10/20/22 (units unknown) (unknown) (unknown) (no date) (unknown) (unknown) 23:26 10/20/22 (units unknown) (unknown) (unknown) (no date) (unknown) (unknown) 23:26 (units unknown) (unknown) (unknown) (no date) (unknown) (unknown) 23:30 10/21/22 (units unknown) (unknown) (unknown) (no date) (unknown) (unknown) 3151 (units unknown) (unknown) (unknown) (no date) (unknown) (unknown) ALT 19 (<35) IU/L (units unknown) (unknown) (unknown) (no date) (unknown) (unknown) AST 23 (14-36) IU/L (units unknown) (unknown) (unknown) (no date) (unknown) (unknown) Admit Date/Time: 10/21/22 03:58 (units unknown) (unknown) (unknown) (no date) (unknown) (unknown) Admit Provider: Carolee Paulino (units unknown) (unknown) (unknown) (no date) (unknown) (unknown) Age/Sex: 72 / F (units unknown) (unknown) (unknown) (no date) (unknown) (unknown) Albumin 2.8 L (3.5-5.0) g/dL (units unknown) (unknown) (unknown) (no date) (unknown) (unknown) Albumin/Globulin Rat io 1.1 (1.0-2.8) (units unknown) (unknown) (unknown) (no date) (unknown) (unknown) Alkaline Phosphatase 93 (38-126) U/L (units unknown) (unknown) (unknown) (no date) (unknown) (unknown) Allergies (units unknown) (unknown) (unknown) (no date) (unknown) (unknown) Allergy/AdvReac Type Severity Reaction Status Date / Time (units unknown) (unknown) (unknown) (no date) (unknown) (unknown) BUN 19 H (7-17) mg/dL (units unknown) (unknown) (unknown) (no date) (unknown) (unknown) BUN/Creatinine Ratio 19.0 (6-22) (units unknown) (unknown) (unknown) (no date) (unknown) (unknown) Baso # (Auto) 0 (0-100) /uL (units unknown) (unknown) (unknown) (no date) (unknown) (unknown) Baso % (Auto) 0.4 (0-2) % (units unknown) (unknown) (unknown) (no date) (unknown) (unknown) Blood Culture Stat (units unknown) (unknown) (unknown) (no date) (unknown) (unknown) Blood Pressure 130/5 7 L (units unknown) (unknown) (unknown) (no date) (unknown) (unknown) Blood Pressure 132/6 0 / 23:20 (units unknown) (unknown) (unknown) (no date) (unknown) (unknown) Blood Pressure 132/60 (units unknown) (unknown) (unknown) (no date) (unknown) (unknown) Blood Pressure (units unknown) (unknown) (unknown) (no date) (unknown) (unknown) CARDIOVASCULAR: Regular rate and rhythm without murmurs, rubs or gallops. (units unknown) (unknown) (unknown) (no date) (unknown) (unknown) CBC Auto Diff [Complete Blood Count AUTO DIFF] Stat (units unknown) (unknown) (unknown) (no date) (unknown) (unknown) CMP [Comprehensive Metabolic Panel] Stat (units unknown) (unknown) (unknown) (no date) (unknown) (unknown) CT pelvis w con Stat (units unknown) (unknown) (unknown) (no date) (unknown) (unknown) CT pelvis: (units unknown) (unknown) (unknown) (no date) (unknown) (unknown) Calcium 8.0 L (8.4-10.2) mg/dL (units unknown) (unknown) (unknown) (no date) (unknown) (unknown) Carbon Dioxide 28 (22-32) mmol/L (units unknown) (unknown) (unknown) (no date) (unknown) (unknown) Chief Complaint: Wound/Laceration (units unknown) (unknown) (unknown) (no date) (unknown) (unknown) Chloride 98 (98-107) mmol/L (units unknown) (unknown) (unknown) (no date) (unknown) (unknown) Clinical Impression: (units unknown) (unknown) (unknown) (no date) (unknown) (unknown) Course (units unknown) (unknown) (unknown) (no date) (unknown) (unknown) Creatinine 1.00 (0.52-1.04) mg/dL (units unknown) (unknown) (unknown) (no date) (unknown) (unknown) : 1950 Acct:[id number] (units unknown) (unknown) (unknown) (no date) (unknown) (unknown) Date of Service: 10/21/22 (units unknown) (unknown) (unknown) (no date) (unknown) (unknown) Departure (units unknown) (unknown) (unknown) (no date) (unknown) (unknown) Depression (units unknown) (unknown) (unknown) (no date) (unknown) (unknown) Discharge Plan (units unknown) (unknown) (unknown) (no date) (unknown) (unknown) Discontinued Medications (units unknown) (unknown) (unknown) (no date) (unknown) (unknown) Diverticulitis (units unknown) (unknown) (unknown) (no date) (unknown) (unknown) Documented By: ADIN (units unknown) (unknown) (unknown) (no date) (unknown) (unknown) Dr. Roberts updated on patient's symptoms test results will admit. Keep NPO (units unknown) (unknown) (unknown) (no date) (unknown) (unknown) ED Orders (units unknown) (unknown) (unknown) (no date) (unknown) (unknown) ER Physician: Alicia Coreas D.O. (units unknown) (unknown) (unknown) (no date) (unknown) (unknown) EXTREMITIES: Normal range of motion, no clubbing or edema. Neurovascularly (units unknown) (unknown) (unknown) (no date) (unknown) (unknown) Emergency Report (units unknown) (unknown) (unknown) (no date) (unknown) (unknown) Eos # (Auto) 400 (0-450) /uL (units unknown) (unknown) (unknown) (no date) (unknown) (unknown) Eos % (Auto) 5.9 H (2-4) % (units unknown) (unknown) (unknown) (no date) (unknown) (unknown) Estimated GFR 60 (>6 0) mL/min (units unknown) (unknown) (unknown) (no date) (unknown) (unknown) Exam (units unknown) (unknown) (unknown) (no date) (unknown) (unknown) Extra Strength) (units unknown) (unknown) (unknown) (no date) (unknown) (unknown) Fluid and subcutaneo us tissue measuring 8 cm craniocaudal by 7.4 cm transverse (units unknown) (unknown) (unknown) (no date) (unknown) (unknown) GENERAL: 72-year-old female awake alert appears uncomfortable (units unknown) (unknown) (unknown) (no date) (unknown) (unknown) GERD (gastroesophage al reflux disease) (units unknown) (unknown) (unknown) (no date) (unknown) (unknown) General (units unknown) (unknown) (unknown) (no date) (unknown) (unknown) Globulin 2.6 (1.7-4. 1) g/dL (units unknown) (unknown) (unknown) (no date) (unknown) (unknown) Glucose 111 H (80-11 0) mg/dL (units unknown) (unknown) (unknown) (no date) (unknown) (unknown) HEENT: Head atraumatic,EOMI, pupils reactive, face symmetric, moist mucous (units unknown) (unknown) (unknown) (no date) (unknown) (unknown) HLD (hyperlipidemia) (units unknown) (unknown) (unknown) (no date) (unknown) (unknown) HPI - Wound/Laceration (units unknown) (unknown) (unknown) (no date) (unknown) (unknown) HPI narrative: (units unknown) (unknown) (unknown) (no date) (unknown) (unknown) Hct 21.1 L (36-46) % (units unknown) (unknown) (unknown) (no date) (unknown) (unknown) Hearing impaired (units unknown) (unknown) (unknown) (no date) (unknown) (unknown) Hgb 7.4 L (12.0-16.0 ) g/dL (units unknown) (unknown) (unknown) (no date) (unknown) (unknown) History of Present Illness (units unknown) (unknown) (unknown) (no date) (unknown) (unknown) History of bladder surgery (units unknown) (unknown) (unknown) (no date) (unknown) (unknown) History of total lef t knee replacement (units unknown) (unknown) (unknown) (no date) (unknown) (unknown) History of total rig ht knee replacement (units unknown) (unknown) (unknown) (no date) (unknown) (unknown) Home Medications (units unknown) (unknown) (unknown) (no date) (unknown) (unknown) Hx of left breast biopsy (units unknown) (unknown) (unknown) (no date) (unknown) (unknown) Hx of right breast biopsy (units unknown) (unknown) (unknown) (no date) (unknown) (unknown) Hx of tonsillectomy (units unknown) (unknown) (unknown) (no date) (unknown) (unknown) Hydromorphone HCl (Hydromorphone 1 Mg Inj) 1 mg IV NOW ONE (units unknown) (unknown) (unknown) (no date) (unknown) (unknown) Imaging Data (units unknown) (unknown) (unknown) (no date) (unknown) (unknown) Initial Vital Signs (units unknown) (unknown) (unknown) (no date) (unknown) (unknown) Initial Vital Signs: (units unknown) (unknown) (unknown) (no date) (unknown) (unknown) [address] [address] (units unknown) (unknown) (unknown) (no date) (unknown) (unknown) Lab Data (units unknown) (unknown) (unknown) (no date) (unknown) (unknown) Lab Results (units unknown) (unknown) (unknown) (no date) (unknown) (unknown) Labs: (units unknown) (unknown) (unknown) (no date) (unknown) (unknown) Lactate (Lactic Acid ) Stat (units unknown) (unknown) (unknown) (no date) (unknown) (unknown) Lactate 0.8 (0.7-2.1 ) mmol/L (units unknown) (unknown) (unknown) (no date) (unknown) (unknown) Last Admin: 10/21/22 01:53 Dose: 1 mg (units unknown) (unknown) (unknown) (no date) (unknown) (unknown) Last Admin: 10/21/22 02:04 Dose: Not Given (units unknown) (unknown) (unknown) (no date) (unknown) (unknown) Last Admin: 10/21/22 04:49 Dose: 1 mg (units unknown) (unknown) (unknown) (no date) (unknown) (unknown) Lymph # (Auto) 1000 L (3505-3153) /uL (units unknown) (unknown) (unknown) (no date) (unknown) (unknown) Lymph % (Auto) 14.5 L (25-40) % (units unknown) (unknown) (unknown) (no date) (unknown) (unknown) MCH 28.8 (26-34) PG (units unknown) (unknown) (unknown) (no date) (unknown) (unknown) MCHC 34.9 (30-36) % (units unknown) (unknown) (unknown) (no date) (unknown) (unknown) MCV 82.6 (80-100) fL (units unknown) (unknown) (unknown) (no date) (unknown) (unknown) MDM - Wound/Laceration (units unknown) (unknown) (unknown) (no date) (unknown) (unknown) MDM Narrative (units unknown) (unknown) (unknown) (no date) (unknown) (unknown) Medical History (units unknown) (unknown) (unknown) (no date) (unknown) (unknown) Medical decision making narrative: (units unknown) (unknown) (unknown) (no date) (unknown) (unknown) Medication Instructions Recorded Confirmed (units unknown) (unknown) (unknown) (no date) (unknown) (unknown) Medication Instructions Recorded (units unknown) (unknown) (unknown) (no date) (unknown) (unknown) Mode of arrival: EMS (units unknown) (unknown) (unknown) (no date) (unknown) (unknown) [place] # (Auto) 700 (0-900) /uL (units unknown) (unknown) (unknown) (no date) (unknown) (unknown) [place] % (Auto) 10.7 (3-14) % (units unknown) (unknown) (unknown) (no date) (unknown) (unknown) NEUROLOGICAL: Alert and oriented x4.Normal gait and speech. (units unknown) (unknown) (unknown) (no date) (unknown) (unknown) Neut # (Auto) 4700 (3621-9812) /uL (units unknown) (unknown) (unknown) (no date) (unknown) (unknown) Neut % (Auto) 68.5 (50-75) % (units unknown) (unknown) (unknown) (no date) (unknown) (unknown) No Known Drug Allergies Allergy Verified 10/02/22 18:28 (units unknown) (unknown) (unknown) (no date) (unknown) (unknown) Ordered: (units unknown) (unknown) (unknown) (no date) (unknown) (unknown) Orders (units unknown) (unknown) (unknown) (no date) (unknown) (unknown) Osteoarthritis (units unknown) (unknown) (unknown) (no date) (unknown) (unknown) Oxygen Delivery Meth od Room Air 10/20/22 23:20 (units unknown) (unknown) (unknown) (no date) (unknown) (unknown) Oxygen Delivery Meth od Room Air Nasal Cannula (units unknown) (unknown) (unknown) (no date) (unknown) (unknown) Oxygen Delivery Meth od Room Air (units unknown) (unknown) (unknown) (no date) (unknown) (unknown) Oxygen Delivery Method (units unknown) (unknown) (unknown) (no date) (unknown) (unknown) Oxygen Flow Rate 2 (units unknown) (unknown) (unknown) (no date) (unknown) (unknown) Oxygen Flow Rate (units unknown) (unknown) (unknown) (no date) (unknown) (unknown) Pain/inflammation #9 0 tabs (units unknown) (unknown) (unknown) (no date) (unknown) (unknown) Patient Disposition: Admitted As Inpatient (units unknown) (unknown) (unknown) (no date) (unknown) (unknown) Patient History (units unknown) (unknown) (unknown) (no date) (unknown) (unknown) Patient is 72-year-o ld female history of total hip replacement and drainage from (units unknown) (unknown) (unknown) (no date) (unknown) (unknown) Patient is a 72-year-old female who had recurrent left hip dislocations had (units unknown) (unknown) (unknown) (no date) (unknown) (unknown) Patient: Barbara Garcia MR#: [id number] (units unknown) (unknown) (unknown) (no date) (unknown) (unknown) Plt Count 470 H (150-400) X103/uL (units unknown) (unknown) (unknown) (no date) (unknown) (unknown) Potassium 3.5 (3.4-5.1) mmol/L (units unknown) (unknown) (unknown) (no date) (unknown) (unknown) Previous Rx's (units unknown) (unknown) (unknown) (no date) (unknown) (unknown) Procalcitonin 0.47 (<0.5) ng/mL (units unknown) (unknown) (unknown) (no date) (unknown) (unknown) Procalcitonin Stat (units unknown) (unknown) (unknown) (no date) (unknown) (unknown) Pulse Oximetry 95 10/20/22 23:20 (units unknown) (unknown) (unknown) (no date) (unknown) (unknown) Pulse Oximetry 95 94 97 (units unknown) (unknown) (unknown) (no date) (unknown) (unknown) Pulse Oximetry 96 96 (units unknown) (unknown) (unknown) (no date) (unknown) (unknown) Pulse Oximetry 98 95 93 (units unknown) (unknown) (unknown) (no date) (unknown) (unknown) Pulse Oximetry 98 98 (units unknown) (unknown) (unknown) (no date) (unknown) (unknown) Pulse Oximetry 99 97 97 (units unknown) (unknown) (unknown) (no date) (unknown) (unknown) Pulse Rate 100 H 93 H (units unknown) (unknown) (unknown) (no date) (unknown) (unknown) Pulse Rate 71 23:20 (units unknown) (unknown) (unknown) (no date) (unknown) (unknown) Pulse Rate 71 83 (units unknown) (unknown) (unknown) (no date) (unknown) (unknown) Pulse Rate 79 80 (units unknown) (unknown) (unknown) (no date) (unknown) (unknown) Pulse Rate 79 84 80 (units unknown) (unknown) (unknown) (no date) (unknown) (unknown) Pulse Rate 85 89 83 (units unknown) (unknown) (unknown) (no date) (unknown) (unknown) RBC 2.55 L (4.0-5.2) X106/uL (units unknown) (unknown) (unknown) (no date) (unknown) (unknown) RDW 15.9 H (11.6-14. 8) % (units unknown) (unknown) (unknown) (no date) (unknown) (unknown) RESPIRATORY: Breath sounds equal bilaterally, no wheezes rales or rhonchi. (units unknown) (unknown) (unknown) (no date) (unknown) (unknown) ROS Unobtainable: Al l systems reviewed + are unremarkable except as noted in HPI (units unknown) (unknown) (unknown) (no date) (unknown) (unknown) Radiologist's Impression: (units unknown) (unknown) (unknown) (no date) (unknown) (unknown) Related Data (units unknown) (unknown) (unknown) (no date) (unknown) (unknown) Respiratory Rate 20 10/20/22 23:20 (units unknown) (unknown) (unknown) (no date) (unknown) (unknown) Respiratory Rate 20 (units unknown) (unknown) (unknown) (no date) (unknown) (unknown) Respiratory Rate (units unknown) (unknown) (unknown) (no date) (unknown) (unknown) Review of Systems (units unknown) (unknown) (unknown) (no date) (unknown) (unknown) SKIN: Left hip incision cecilia in place there is 1 area where there is (units unknown) (unknown) (unknown) (no date) (unknown) (unknown) Seasonal allergies (units unknown) (unknown) (unknown) (no date) (unknown) (unknown) Seroma after procedure (units unknown) (unknown) (unknown) (no date) (unknown) (unknown) She has been ambulating able to bear weight and doing well. Until yesterday (units unknown) (unknown) (unknown) (no date) (unknown) (unknown) Signed By: (units unknown) (unknown) (unknown) (no date) (unknown) (unknown) Smoking Status: Alejandralane rubin smoker (units unknown) (unknown) (unknown) (no date) (unknown) (unknown) Social History (units unknown) (unknown) (unknown) (no date) (unknown) (unknown) Sodium 131 L (137-14 5) mmol/L (units unknown) (unknown) (unknown) (no date) (unknown) (unknown) Source: patient and EMS (units unknown) (unknown) (unknown) (no date) (unknown) (unknown) Stated Complaint: Green Drainage/Bleeding (units unknown) (unknown) (unknown) (no date) (unknown) (unknown) Stop: 10/21/22 01:43 (units unknown) (unknown) (unknown) (no date) (unknown) (unknown) Stop: 10/21/22 01:45 (units unknown) (unknown) (unknown) (no date) (unknown) (unknown) Stop: 10/21/22 04:44 (units unknown) (unknown) (unknown) (no date) (unknown) (unknown) Substance Use Type: does not use (units unknown) (unknown) (unknown) (no date) (unknown) (unknown) Surgical History (units unknown) (unknown) (unknown) (no date) (unknown) (unknown) Temperature 98.4 F 10/20/22 23:20 (units unknown) (unknown) (unknown) (no date) (unknown) (unknown) Temperature 98.4 F (units unknown) (unknown) (unknown) (no date) (unknown) (unknown) Temperature (units unknown) (unknown) (unknown) (no date) (unknown) (unknown) Time Seen by Nicole r: 10/20/22 23:19 (units unknown) (unknown) (unknown) (no date) (unknown) (unknown) Total Bilirubin 0.3 (0.2-1.3) mg/dL (units unknown) (unknown) (unknown) (no date) (unknown) (unknown) Total Protein 5.4 L (6.3-8.2) g/dL (units unknown) (unknown) (unknown) (no date) (unknown) (unknown) Underlying infection versus hematoma and seroma. CT confirms large fluid (units unknown) (unknown) (unknown) (no date) (unknown) (unknown) Vital Signs - 8 hr (units unknown) (unknown) (unknown) (no date) (unknown) (unknown) Vital Signs (units unknown) (unknown) (unknown) (no date) (unknown) (unknown) Vital signs: (units unknown) (unknown) (unknown) (no date) (unknown) (unknown) WBC 6.9 (4.5-11.0) X103/uL (units unknown) (unknown) (unknown) (no date) (unknown) (unknown) Wound Culture and Gr am Stain Stat (units unknown) (unknown) (unknown) (no date) (unknown) (unknown) [Embedded Image Not Available] (units unknown) (unknown) (unknown) (no date) (unknown) (unknown) abnormality or YESSICA. She is extremely tender unable to roll her over in bed to (units unknown) (unknown) (unknown) (no date) (unknown) (unknown) acetaminophen 325 mg tablet 650 mg PO Q6H PRN fever or pain 09/15/22 (units unknown) (unknown) (unknown) (no date) (unknown) (unknown) alcohol intake frequency: holidays/special occasions only (units unknown) (unknown) (unknown) (no date) (unknown) (unknown) alcohol intake: current (units unknown) (unknown) (unknown) (no date) (unknown) (unknown) allergies (units unknown) (unknown) (unknown) (no date) (unknown) (unknown) ambulating until 2 days ago. Minimal erythema at site she is no fever (units unknown) (unknown) (unknown) (no date) (unknown) (unknown) and 4.7 cm AP (units unknown) (unknown) (unknown) (no date) (unknown) (unknown) and below (units unknown) (unknown) (unknown) (no date) (unknown) (unknown) aspirin 81 mg tablet,delayed 81 mg PO BID 6 weeks #84 tabs 09/15/22 (units unknown) (unknown) (unknown) (no date) (unknown) (unknown) aspirin-acetaminophe n- caffeine 250 1 - 2 tab PO BID 08/13/22 10/02/22 (units unknown) (unknown) (unknown) (no date) (unknown) (unknown) atorvastatin 20 mg tablet 20 mg PO BEDTIME 08/13/22 10/02/22 (units unknown) (unknown) (unknown) (no date) (unknown) (unknown) bicarbonate 1.1 gram capsule (units unknown) (unknown) (unknown) (no date) (unknown) (unknown) caps (units unknown) (unknown) (unknown) (no date) (unknown) (unknown) cetirizine 10 mg tablet (Zyrtec) 10 mg PO DAILY PRN Seasonal 08/13/22 10/02/22 (units unknown) (unknown) (unknown) (no date) (unknown) (unknown) collection. (units unknown) (unknown) (unknown) (no date) (unknown) (unknown) darkened blood seepi ng out. Minimal erythema around wound (units unknown) (unknown) (unknown) (no date) (unknown) (unknown) docusate sodium 100 mg capsule 100 mg PO BID PRN constipation #30 09/15/22 (units unknown) (unknown) (unknown) (no date) (unknown) (unknown) drainage from her incision site. No fever or chills. It hurts to move. Site (units unknown) (unknown) (unknown) (no date) (unknown) (unknown) escitalopram oxalate 20 mg tablet 20 mg PO DAILY 08/13/22 10/02/22 (units unknown) (unknown) (unknown) (no date) (unknown) (unknown) for drainage. (units unknown) (unknown) (unknown) (no date) (unknown) (unknown) household members: spouse (units unknown) (unknown) (unknown) (no date) (unknown) (unknown) hydroxyzine pamoate 25 mg capsule 25 mg PO TID-QID PRN itching #60 09/30/22 (units unknown) (unknown) (unknown) (no date) (unknown) (unknown) ibuprofen 400 mg tablet 400 mg PO Q4H PRN 09/15/22 (units unknown) (unknown) (unknown) (no date) (unknown) (unknown) intact (units unknown) (unknown) (unknown) (no date) (unknown) (unknown) is mildly erythematous. (units unknown) (unknown) (unknown) (no date) (unknown) (unknown) leukocytosis. Hemoglobin is stable although anemic. No significant electrolyte (units unknown) (unknown) (unknown) (no date) (unknown) (unknown) look at the incision site was out Dilaudid. She is good distal pulse. (units unknown) (unknown) (unknown) (no date) (unknown) (unknown) membranes (units unknown) (unknown) (unknown) (no date) (unknown) (unknown) mg-250 mg-65 mg tabl et (Excedrin (units unknown) (unknown) (unknown) (no date) (unknown) (unknown) omeprazole 20 mg-sodium 1 cap PO DAILY PRN GI Upset 08/13/22 10/02/22 (units unknown) (unknown) (unknown) (no date) (unknown) (unknown) oxycodone 5 mg table t 5 mg PO Q4-6H PRN Pain, Moderate 10/06/22 (units unknown) (unknown) (unknown) (no date) (unknown) (unknown) release (units unknown) (unknown) (unknown) (no date) (unknown) (unknown) 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 She has been at a rehab facility. (units unknown) (unknown) (unknown) (no date) (unknown) (unknown) solifenacin 10 mg tablet (Vesicare) 10 mg PO DAILY 08/13/22 10/02/22 (units unknown) (unknown) (unknown) (no date) (unknown) (unknown) surgical site. Surge ry happened October 06 she has been doing well at rehab (units unknown) (unknown) (unknown) (no date) (unknown) (unknown) when she started having increased pain unable to bear weight and started having (units unknown) (unknown) Result panel 1393 (unknown) (no date) (unknown) (unknown) Negative (units unknown) (unknown) (unknown) (no date) (unknown) (unknown) Negative (units unknown) (unknown) Result panel 1394 (unknown) (no date) (unknown) (unknown) (no value) (units unknown) (unknown) (unknown) (no date) (unknown) (unknown) #90 tabs (units unknown) (unknown) (unknown) (no date) (unknown) (unknown) (1) Seroma after procedure: (units unknown) (unknown) (unknown) (no date) (unknown) (unknown) (2) Foot drop, left: (units unknown) (unknown) (unknown) (no date) (unknown) (unknown) (3) Postoperative anemia due to acute blood loss: (units unknown) (unknown) (unknown) (no date) (unknown) (unknown) (4-6) #60 tabs (units unknown) (unknown) (unknown) (no date) (unknown) (unknown) (Vistaril) caps (units unknown) (unknown) (unknown) (no date) (unknown) (unknown) (Zegerid) (units unknown) (unknown) (unknown) (no date) (unknown) (unknown) (past 8 hours): (units unknown) (unknown) (unknown) (no date) (unknown) (unknown) 00:00 (units unknown) (unknown) (unknown) (no date) (unknown) (unknown) 00:23 00:23 00:23 (units unknown) (unknown) (unknown) (no date) (unknown) (unknown) 00:30 10/21/22 (units unknown) (unknown) (unknown) (no date) (unknown) (unknown) 01:00 10/21/22 (units unknown) (unknown) (unknown) (no date) (unknown) (unknown) 01:30 (units unknown) (unknown) (unknown) (no date) (unknown) (unknown) 02:00 10/21/22 (units unknown) (unknown) (unknown) (no date) (unknown) (unknown) 02:30 10/21/22 (units unknown) (unknown) (unknown) (no date) (unknown) (unknown) 03:49 10/21/22 (units unknown) (unknown) (unknown) (no date) (unknown) (unknown) 03:52 10/21/22 (units unknown) (unknown) (unknown) (no date) (unknown) (unknown) 03:52 (units unknown) (unknown) (unknown) (no date) (unknown) (unknown) 09/14/2022 unfortunately she had multiple episodes of instability, dislocation (units unknown) (unknown) (unknown) (no date) (unknown) (unknown) 10/02/22 Rx (units unknown) (unknown) (unknown) (no date) (unknown) (unknown) 04:00 10/21/22 (units unknown) (unknown) (unknown) (no date) (unknown) (unknown) 04:30 10/21/22 (units unknown) (unknown) (unknown) (no date) (unknown) (unknown) 10/20/22 (units unknown) (unknown) (unknown) (no date) (unknown) (unknown) 10/21/22 00:23 (units unknown) (unknown) (unknown) (no date) (unknown) (unknown) 10/21/22 10/21/22 10/21/22 (units unknown) (unknown) (unknown) (no date) (unknown) (unknown) 10/21/22 0728 (units unknown) (unknown) (unknown) (no date) (unknown) (unknown) 10/21/22 (units unknown) (unknown) (unknown) (no date) (unknown) (unknown) 05:00 (units unknown) (unknown) (unknown) (no date) (unknown) (unknown) 05:30 (units unknown) (unknown) (unknown) (no date) (unknown) (unknown) 23:20 10/20/22 (units unknown) (unknown) (unknown) (no date) (unknown) (unknown) 23:24 10/20/22 (units unknown) (unknown) (unknown) (no date) (unknown) (unknown) 23:26 10/20/22 (units unknown) (unknown) (unknown) (no date) (unknown) (unknown) 23:26 (units unknown) (unknown) (unknown) (no date) (unknown) (unknown) 23:30 10/21/22 (units unknown) (unknown) (unknown) (no date) (unknown) (unknown) 3151 (units unknown) (unknown) (unknown) (no date) (unknown) (unknown) ALT 19 (units unknown) (unknown) (unknown) (no date) (unknown) (unknown) ALT (units unknown) (unknown) (unknown) (no date) (unknown) (unknown) AST 23 (units unknown) (unknown) (unknown) (no date) (unknown) (unknown) AST (units unknown) (unknown) (unknown) (no date) (unknown) (unknown) Age/Sex: 72 / F (units unknown) (unknown) (unknown) (no date) (unknown) (unknown) Albumin 2.8 L (units unknown) (unknown) (unknown) (no date) (unknown) (unknown) Albumin (units unknown) (unknown) (unknown) (no date) (unknown) (unknown) Albumin/Globulin Rat io 1.1 (units unknown) (unknown) (unknown) (no date) (unknown) (unknown) Albumin/Globulin Ratio (units unknown) (unknown) (unknown) (no date) (unknown) (unknown) Alkaline Phosphatase 93 (units unknown) (unknown) (unknown) (no date) (unknown) (unknown) Alkaline Phosphatase (units unknown) (unknown) (unknown) (no date) (unknown) (unknown) Allergies (units unknown) (unknown) (unknown) (no date) (unknown) (unknown) Allergy/AdvReac Type Severity Reaction Status Date / Time (units unknown) (unknown) (unknown) (no date) (unknown) (unknown) Assessment + Plan narrative: (units unknown) (unknown) (unknown) (no date) (unknown) (unknown) Assessment + Plan (units unknown) (unknown) (unknown) (no date) (unknown) (unknown) Assessment and plan (units unknown) (unknown) (unknown) (no date) (unknown) (unknown) BUN 19 H (units unknown) (unknown) (unknown) (no date) (unknown) (unknown) BUN (units unknown) (unknown) (unknown) (no date) (unknown) (unknown) BUN/Creatinine Ratio 19.0 (units unknown) (unknown) (unknown) (no date) (unknown) (unknown) BUN/Creatinine Ratio (units unknown) (unknown) (unknown) (no date) (unknown) (unknown) Baso # (Auto) 0 (units unknown) (unknown) (unknown) (no date) (unknown) (unknown) Baso # (Auto) (units unknown) (unknown) (unknown) (no date) (unknown) (unknown) Baso % (Auto) 0.4 (units unknown) (unknown) (unknown) (no date) (unknown) (unknown) Baso % (Auto) (units unknown) (unknown) (unknown) (no date) (unknown) (unknown) Blood Pressure 130/5 7 L (units unknown) (unknown) (unknown) (no date) (unknown) (unknown) Blood Pressure 132/60 (units unknown) (unknown) (unknown) (no date) (unknown) (unknown) Blood Pressure (units unknown) (unknown) (unknown) (no date) (unknown) (unknown) COVID-19 status: Negative (units unknown) (unknown) (unknown) (no date) (unknown) (unknown) COVID-19 (units unknown) (unknown) (unknown) (no date) (unknown) (unknown) Calcium 8.0 L (units unknown) (unknown) (unknown) (no date) (unknown) (unknown) Calcium (units unknown) (unknown) (unknown) (no date) (unknown) (unknown) Carbon Dioxide 28 (units unknown) (unknown) (unknown) (no date) (unknown) (unknown) Carbon Dioxide (units unknown) (unknown) (unknown) (no date) (unknown) (unknown) Chief complaint: Gre en Drainage/Bleeding (units unknown) (unknown) (unknown) (no date) (unknown) (unknown) Chloride 98 (units unknown) (unknown) (unknown) (no date) (unknown) (unknown) Chloride (units unknown) (unknown) (unknown) (no date) (unknown) (unknown) Creatinine 1.00 (units unknown) (unknown) (unknown) (no date) (unknown) (unknown) Creatinine (units unknown) (unknown) (unknown) (no date) (unknown) (unknown) : 1950 Acct:[id number] (units unknown) (unknown) (unknown) (no date) (unknown) (unknown) Date Patient Seen: 10/21/22 (units unknown) (unknown) (unknown) (no date) (unknown) (unknown) Date of Service: 10/21/22 (units unknown) (unknown) (unknown) (no date) (unknown) (unknown) Deep Vein Thrombosis/Pulmonary Embolism Present on Admission: No (units unknown) (unknown) (unknown) (no date) (unknown) (unknown) Depression (units unknown) (unknown) (unknown) (no date) (unknown) (unknown) Diverticulitis (units unknown) (unknown) (unknown) (no date) (unknown) (unknown) Eos # (Auto) 400 (units unknown) (unknown) (unknown) (no date) (unknown) (unknown) Eos # (Auto) (units unknown) (unknown) (unknown) (no date) (unknown) (unknown) Eos % (Auto) 5.9 H (units unknown) (unknown) (unknown) (no date) (unknown) (unknown) Eos % (Auto) (units unknown) (unknown) (unknown) (no date) (unknown) (unknown) Estimated GFR 60 (units unknown) (unknown) (unknown) (no date) (unknown) (unknown) Estimated GFR (units unknown) (unknown) (unknown) (no date) (unknown) (unknown) Exam Narrative: (units unknown) (unknown) (unknown) (no date) (unknown) (unknown) Exam (units unknown) (unknown) (unknown) (no date) (unknown) (unknown) Extra Strength) (units unknown) (unknown) (unknown) (no date) (unknown) (unknown) GERD (gastroesophage al reflux disease) (units unknown) (unknown) (unknown) (no date) (unknown) (unknown) General exam is aler t oriented female in no acute distress is at bedside (units unknown) (unknown) (unknown) (no date) (unknown) (unknown) Globulin 2.6 (units unknown) (unknown) (unknown) (no date) (unknown) (unknown) Globulin (units unknown) (unknown) (unknown) (no date) (unknown) (unknown) Glucose 111 H (units unknown) (unknown) (unknown) (no date) (unknown) (unknown) Glucose (units unknown) (unknown) (unknown) (no date) (unknown) (unknown) HEENT exam normocephalic atraumatic (units unknown) (unknown) (unknown) (no date) (unknown) (unknown) HLD (hyperlipidemia) (units unknown) (unknown) (unknown) (no date) (unknown) (unknown) Hct 21.1 L (units unknown) (unknown) (unknown) (no date) (unknown) (unknown) Hct (units unknown) (unknown) (unknown) (no date) (unknown) (unknown) Hearing impaired (units unknown) (unknown) (unknown) (no date) (unknown) (unknown) Heart regular rate a nd rhythm (units unknown) (unknown) (unknown) (no date) (unknown) (unknown) Hgb 7.4 L (units unknown) (unknown) (unknown) (no date) (unknown) (unknown) Hgb (units unknown) (unknown) (unknown) (no date) (unknown) (unknown) History + Physical Report (units unknown) (unknown) (unknown) (no date) (unknown) (unknown) History of Present Illness (units unknown) (unknown) (unknown) (no date) (unknown) (unknown) History of bladder surgery (units unknown) (unknown) (unknown) (no date) (unknown) (unknown) History of total lef t knee replacement (units unknown) (unknown) (unknown) (no date) (unknown) (unknown) History of total rig ht knee replacement (units unknown) (unknown) (unknown) (no date) (unknown) (unknown) History (units unknown) (unknown) (unknown) (no date) (unknown) (unknown) Home Medications and Allergies (units unknown) (unknown) (unknown) (no date) (unknown) (unknown) Home Medications (units unknown) (unknown) (unknown) (no date) (unknown) (unknown) Hx of left breast biopsy (units unknown) (unknown) (unknown) (no date) (unknown) (unknown) Hx of right breast biopsy (units unknown) (unknown) (unknown) (no date) (unknown) (unknown) Hx of tonsillectomy (units unknown) (unknown) (unknown) (no date) (unknown) (unknown) Imaging (units unknown) (unknown) (unknown) (no date) (unknown) (unknown) [address] [address] (units unknown) (unknown) (unknown) (no date) (unknown) (unknown) Laboratory Results - last 24 hr (units unknown) (unknown) (unknown) (no date) (unknown) (unknown) Labs (units unknown) (unknown) (unknown) (no date) (unknown) (unknown) Labs: (units unknown) (unknown) (unknown) (no date) (unknown) (unknown) Lactate 0.8 (units unknown) (unknown) (unknown) (no date) (unknown) (unknown) Lactate (units unknown) (unknown) (unknown) (no date) (unknown) (unknown) Left lower extremity demonstrates footdrop with no appreciable EHL or tibialis (units unknown) (unknown) (unknown) (no date) (unknown) (unknown) Lymph # (Auto) 1000 L (units unknown) (unknown) (unknown) (no date) (unknown) (unknown) Lymph # (Auto) (units unknown) (unknown) (unknown) (no date) (unknown) (unknown) Lymph % (Auto) 14.5 L (units unknown) (unknown) (unknown) (no date) (unknown) (unknown) Lymph % (Auto) (units unknown) (unknown) (unknown) (no date) (unknown) (unknown) MCH 28.8 (units unknown) (unknown) (unknown) (no date) (unknown) (unknown) MCH (units unknown) (unknown) (unknown) (no date) (unknown) (unknown) MCHC 34.9 (units unknown) (unknown) (unknown) (no date) (unknown) (unknown) MCHC (units unknown) (unknown) (unknown) (no date) (unknown) (unknown) MCV 82.6 (units unknown) (unknown) (unknown) (no date) (unknown) (unknown) MCV (units unknown) (unknown) (unknown) (no date) (unknown) (unknown) Medical History (units unknown) (unknown) (unknown) (no date) (unknown) (unknown) Medication Instructions Recorded Confirmed Type (units unknown) (unknown) (unknown) (no date) (unknown) (unknown) Meds (units unknown) (unknown) (unknown) (no date) (unknown) (unknown) Moderate medical decision-making. Decision for inpatient admit [facility] for (units unknown) (unknown) (unknown) (no date) (unknown) (unknown) [place] # (Auto) 700 (units unknown) (unknown) (unknown) (no date) (unknown) (unknown) [place] # (Auto) (units unknown) (unknown) (unknown) (no date) (unknown) (unknown) [place] % (Auto) 10.7 (units unknown) (unknown) (unknown) (no date) (unknown) (unknown) [place] % (Auto) (units unknown) (unknown) (unknown) (no date) (unknown) (unknown) Moving bilateral upp er extremities without limitation (units unknown) (unknown) (unknown) (no date) (unknown) (unknown) Moving right lower extremity without limitation 5/5 dorsiflexion plantar (units unknown) (unknown) (unknown) (no date) (unknown) (unknown) My impression: (units unknown) (unknown) (unknown) (no date) (unknown) (unknown) NPO for OR later today. (units unknown) (unknown) (unknown) (no date) (unknown) (unknown) Narrative (units unknown) (unknown) (unknown) (no date) (unknown) (unknown) Narrative: (units unknown) (unknown) (unknown) (no date) (unknown) (unknown) Neut # (Auto) 4700 (units unknown) (unknown) (unknown) (no date) (unknown) (unknown) Neut # (Auto) (units unknown) (unknown) (unknown) (no date) (unknown) (unknown) Neut % (Auto) 68.5 (units unknown) (unknown) (unknown) (no date) (unknown) (unknown) Neut % (Auto) (units unknown) (unknown) (unknown) (no date) (unknown) (unknown) No Known Drug Allergies Allergy Verified 10/02/22 18:28 (units unknown) (unknown) (unknown) (no date) (unknown) (unknown) No fevers chills nausea vomiting. Has endorsed worsening spasms the last few (units unknown) (unknown) (unknown) (no date) (unknown) (unknown) No white count and patient is afebrile. She does have a left foot drop states (units unknown) (unknown) (unknown) (no date) (unknown) (unknown) Objective (units unknown) (unknown) (unknown) (no date) (unknown) (unknown) Osteoarthritis (units unknown) (unknown) (unknown) (no date) (unknown) (unknown) Oxygen Delivery Meth od Nasal Cannula (units unknown) (unknown) (unknown) (no date) (unknown) (unknown) Oxygen Delivery Meth od Room Air Nasal Cannula (units unknown) (unknown) (unknown) (no date) (unknown) (unknown) Oxygen Delivery Meth od Room Air (units unknown) (unknown) (unknown) (no date) (unknown) (unknown) Oxygen Delivery Method (units unknown) (unknown) (unknown) (no date) (unknown) (unknown) Oxygen Flow Rate 2 (units unknown) (unknown) (unknown) (no date) (unknown) (unknown) Oxygen Flow Rate (units unknown) (unknown) (unknown) (no date) (unknown) (unknown) PFSH (units unknown) (unknown) (unknown) (no date) (unknown) (unknown) Pain/inflammation #9 0 tabs (units unknown) (unknown) (unknown) (no date) (unknown) (unknown) Patient: Barbara Garcia MR#: [id number] (units unknown) (unknown) (unknown) (no date) (unknown) (unknown) Pelvis CT scan demonstrates grossly stable alignment of long-stem total hip (units unknown) (unknown) (unknown) (no date) (unknown) (unknown) Pelvis CT scan: (units unknown) (unknown) (unknown) (no date) (unknown) (unknown) Plan to place drains. (units unknown) (unknown) (unknown) (no date) (unknown) (unknown) Plt Count 470 H (units unknown) (unknown) (unknown) (no date) (unknown) (unknown) Plt Count (units unknown) (unknown) (unknown) (no date) (unknown) (unknown) Postoperative anemia . Current vital signs stable but may require transfusion (units unknown) (unknown) (unknown) (no date) (unknown) (unknown) Postoperative hemato ma or seroma. Large fluid collection. The increasing (units unknown) (unknown) (unknown) (no date) (unknown) (unknown) Postoperatively will need footdrop brace for the left side (units unknown) (unknown) (unknown) (no date) (unknown) (unknown) Potassium 3.5 (units unknown) (unknown) (unknown) (no date) (unknown) (unknown) Potassium (units unknown) (unknown) (unknown) (no date) (unknown) (unknown) Procalcitonin 0.47 (units unknown) (unknown) (unknown) (no date) (unknown) (unknown) Procalcitonin (units unknown) (unknown) (unknown) (no date) (unknown) (unknown) Provider: Carolee Paulino MD (units unknown) (unknown) (unknown) (no date) (unknown) (unknown) Pulse Oximetry 95 94 97 (units unknown) (unknown) (unknown) (no date) (unknown) (unknown) Pulse Oximetry 95 96 95 (units unknown) (unknown) (unknown) (no date) (unknown) (unknown) Pulse Oximetry 95 (units unknown) (unknown) (unknown) (no date) (unknown) (unknown) Pulse Oximetry 96 96 (units unknown) (unknown) (unknown) (no date) (unknown) (unknown) Pulse Oximetry 98 95 93 (units unknown) (unknown) (unknown) (no date) (unknown) (unknown) Pulse Oximetry 98 98 (units unknown) (unknown) (unknown) (no date) (unknown) (unknown) Pulse Oximetry 99 97 97 (units unknown) (unknown) (unknown) (no date) (unknown) (unknown) Pulse Rate 100 H 93 H (units unknown) (unknown) (unknown) (no date) (unknown) (unknown) Pulse Rate 71 83 (units unknown) (unknown) (unknown) (no date) (unknown) (unknown) Pulse Rate 79 80 (units unknown) (unknown) (unknown) (no date) (unknown) (unknown) Pulse Rate 79 84 80 (units unknown) (unknown) (unknown) (no date) (unknown) (unknown) Pulse Rate 85 89 83 (units unknown) (unknown) (unknown) (no date) (unknown) (unknown) Pulse Rate 87 (units unknown) (unknown) (unknown) (no date) (unknown) (unknown) Pulse Rate 96 H 89 85 (units unknown) (unknown) (unknown) (no date) (unknown) (unknown) Quality (units unknown) (unknown) (unknown) (no date) (unknown) (unknown) RBC 2.55 L (units unknown) (unknown) (unknown) (no date) (unknown) (unknown) RBC (units unknown) (unknown) (unknown) (no date) (unknown) (unknown) RDW 15.9 H (units unknown) (unknown) (unknown) (no date) (unknown) (unknown) RDW (units unknown) (unknown) (unknown) (no date) (unknown) (unknown) Respiratory Rate 20 (units unknown) (unknown) (unknown) (no date) (unknown) (unknown) Respiratory Rate (units unknown) (unknown) (unknown) (no date) (unknown) (unknown) Respiratory exam dean gs clear to auscultation bilaterally (units unknown) (unknown) (unknown) (no date) (unknown) (unknown) Review of Systems (units unknown) (unknown) (unknown) (no date) (unknown) (unknown) SARS-CoV-2 (PCR) Negative (units unknown) (unknown) (unknown) (no date) (unknown) (unknown) SARS-CoV-2 (PCR) (units unknown) (unknown) (unknown) (no date) (unknown) (unknown) Seasonal allergies (units unknown) (unknown) (unknown) (no date) (unknown) (unknown) She also has postoperative anemia hemoglobin 7.4. Vital signs currently stable. (units unknown) (unknown) (unknown) (no date) (unknown) (unknown) Signed By:<Electronically signed by Carolee Paulino MD> (units unknown) (unknown) (unknown) (no date) (unknown) (unknown) Smoking Status: Carmencita rubin smoker (units unknown) (unknown) (unknown) (no date) (unknown) (unknown) Social History (units unknown) (unknown) (unknown) (no date) (unknown) (unknown) Sodium 131 L (units unknown) (unknown) (unknown) (no date) (unknown) (unknown) Sodium (units unknown) (unknown) (unknown) (no date) (unknown) (unknown) Status: Acute (units unknown) (unknown) (unknown) (no date) (unknown) (unknown) Surgical History (units unknown) (unknown) (unknown) (no date) (unknown) (unknown) Temperature 98.4 F (units unknown) (unknown) (unknown) (no date) (unknown) (unknown) Temperature (units unknown) (unknown) (unknown) (no date) (unknown) (unknown) The risks and benefi ts of the procedure have been discussed with the patient and (units unknown) (unknown) (unknown) (no date) (unknown) (unknown) This is a 72-year-ol d female history of a left total hip arthroplasty on (units unknown) (unknown) (unknown) (no date) (unknown) (unknown) Time Patient Seen: 07:17 (units unknown) (unknown) (unknown) (no date) (unknown) (unknown) Time Spent With Patient (units unknown) (unknown) (unknown) (no date) (unknown) (unknown) Time with patient: 3 0 to 49 minutes with 50% spent counseling/coordinatin g care (units unknown) (unknown) (unknown) (no date) (unknown) (unknown) Total Bilirubin 0.3 (units unknown) (unknown) (unknown) (no date) (unknown) (unknown) Total Bilirubin (units unknown) (unknown) (unknown) (no date) (unknown) (unknown) Total Protein 5.4 L (units unknown) (unknown) (unknown) (no date) (unknown) (unknown) Total Protein (units unknown) (unknown) (unknown) (no date) (unknown) (unknown) VTE (units unknown) (unknown) (unknown) (no date) (unknown) (unknown) Vital Signs (units unknown) (unknown) (unknown) (no date) (unknown) (unknown) WBC 6.9 (units unknown) (unknown) (unknown) (no date) (unknown) (unknown) WBC (units unknown) (unknown) (unknown) (no date) (unknown) (unknown) [Embedded Image Not Available] (units unknown) (unknown) (unknown) (no date) (unknown) (unknown) acetaminophen 325 mg tablet 650 mg PO Q6H PRN fever or pain 09/15/22 10/02/22 Rx (units unknown) (unknown) (unknown) (no date) (unknown) (unknown) alcohol intake: current (units unknown) (unknown) (unknown) (no date) (unknown) (unknown) allergies (units unknown) (unknown) (unknown) (no date) (unknown) (unknown) and closed reduction s. She later had a fracture And then was revised to a long (units unknown) (unknown) (unknown) (no date) (unknown) (unknown) anterior. There is a palpable dorsalis pedis pulse. 5/5 plantar flexion. No (units unknown) (unknown) (unknown) (no date) (unknown) (unknown) arthroplasty prosthesis and cerclage wire around greater trochanter fracture sit (units unknown) (unknown) (unknown) (no date) (unknown) (unknown) aspirin 81 mg tablet,delayed 81 mg PO BID 6 weeks #84 tabs 09/15/22 10/02/22 Rx (units unknown) (unknown) (unknown) (no date) (unknown) (unknown) aspirin-acetaminophe n- caffeine 250 1 - 2 tab PO BID 08/13/22 10/02/22 History (units unknown) (unknown) (unknown) (no date) (unknown) (unknown) atorvastatin 20 mg tablet 20 mg PO BEDTIME 08/13/22 10/02/22 History (units unknown) (unknown) (unknown) (no date) (unknown) (unknown) becomes unstable. We will type and screen. (units unknown) (unknown) (unknown) (no date) (unknown) (unknown) better sleep then sh e is had several days (units unknown) (unknown) (unknown) (no date) (unknown) (unknown) bicarbonate 1.1 gram capsule (units unknown) (unknown) (unknown) (no date) (unknown) (unknown) blood loss with surgery. May require transfusion. Type and screen. (units unknown) (unknown) (unknown) (no date) (unknown) (unknown) caps (units unknown) (unknown) (unknown) (no date) (unknown) (unknown) cetirizine 10 mg tablet (Zyrtec) 10 mg PO DAILY PRN Seasonal 08/13/22 10/02/22 (units unknown) (unknown) (unknown) (no date) (unknown) (unknown) complications and . The patient expressed a thorough understanding of the (units unknown) (unknown) (unknown) (no date) (unknown) (unknown) days that have been miserable. (units unknown) (unknown) (unknown) (no date) (unknown) (unknown) docusate sodium 100 mg capsule 100 mg PO BID PRN constipation #30 09/15/22 (units unknown) (unknown) (unknown) (no date) (unknown) (unknown) e. No appreciable change. There was a large collection lateral to the hip (units unknown) (unknown) (unknown) (no date) (unknown) (unknown) escitalopram oxalate 20 mg tablet 20 mg PO DAILY 08/13/22 10/02/22 History (units unknown) (unknown) (unknown) (no date) (unknown) (unknown) evening of 3. And found to have a significant hematoma or seroma. She (units unknown) (unknown) (unknown) (no date) (unknown) (unknown) flexion. Palpable pulses. Negative log roll. Flexes and extends the (units unknown) (unknown) (unknown) (no date) (unknown) (unknown) fluid collection hematoma or seroma. No desiree cellulitis (units unknown) (unknown) (unknown) (no date) (unknown) (unknown) given the opportunit y to ask questions. The risks of surgery include but are (units unknown) (unknown) (unknown) (no date) (unknown) (unknown) having more spasms that implants were stable. Then drainage was noticed from (units unknown) (unknown) (unknown) (no date) (unknown) (unknown) her dressing at the long term facility she was brought to the ER on the (units unknown) (unknown) (unknown) (no date) (unknown) (unknown) household members: spouse (units unknown) (unknown) (unknown) (no date) (unknown) (unknown) hydroxyzine pamoate 25 mg capsule 25 mg PO TID-QID PRN itching #60 09/30/22 (units unknown) (unknown) (unknown) (no date) (unknown) (unknown) ibuprofen 400 mg tablet 400 mg PO Q4H PRN 09/15/22 10/02/22 Rx (units unknown) (unknown) (unknown) (no date) (unknown) (unknown) initially in the ER and had to get pain medication for log roll however this (units unknown) (unknown) (unknown) (no date) (unknown) (unknown) measuring approximately 15 cm x 7 cm presumed hematoma or seroma (units unknown) (unknown) (unknown) (no date) (unknown) (unknown) mg-250 mg-65 mg tabl et (Excedrin (units unknown) (unknown) (unknown) (no date) (unknown) (unknown) morning when I see h er her pain is under control and she states that she had a (units unknown) (unknown) (unknown) (no date) (unknown) (unknown) nerves and blood vessels, posttraumatic arthritis, DVT, PE, cardiopulmonary (units unknown) (unknown) (unknown) (no date) (unknown) (unknown) not limited to infection, malunion, nonunion, persistence of pain, damage to (units unknown) (unknown) (unknown) (no date) (unknown) (unknown) omeprazole 20 mg-sodium 1 cap PO DAILY PRN GI Upset 08/13/22 10/02/22 History (units unknown) (unknown) (unknown) (no date) (unknown) (unknown) operative procedure. Postoperative anemia hemoglobin 7.4. Expected additional (units unknown) (unknown) (unknown) (no date) (unknown) (unknown) oxycodone 5 mg table t 5 mg PO Q4-6H PRN Pain, Moderate 10/06/22 Rx (units unknown) (unknown) (unknown) (no date) (unknown) (unknown) place. No active drainage or malodor. Induration consistent with underlying (units unknown) (unknown) (unknown) (no date) (unknown) (unknown) release (units unknown) (unknown) (unknown) (no date) (unknown) (unknown) risks and benefits o f surgery and has elected to proceed. Consent was signed. (units unknown) (unknown) (unknown) (no date) (unknown) (unknown) she recalls this (difficulty bringing the left foot up) for about the last 2 (units unknown) (unknown) (unknown) (no date) (unknown) (unknown) solifenacin 10 mg tablet (Vesicare) 10 mg PO DAILY 08/13/22 10/02/22 History (units unknown) (unknown) (unknown) (no date) (unknown) (unknown) stem and cerclage wire. She was seen in clinic recently by Dr. River. She was (units unknown) (unknown) (unknown) (no date) (unknown) (unknown) symptoms. Indication for hematoma seroma evacuation and debridement. (units unknown) (unknown) (unknown) (no date) (unknown) (unknown) tenderness along the calf or knee. Posterolateral hip incision cecilia in (units unknown) (unknown) (unknown) (no date) (unknown) (unknown) was indicated for hematoma, seroma evacuation and irrigation and debridement. (units unknown) (unknown) (unknown) (no date) (unknown) (unknown) weeks. Her emergency physician report her pain was difficult to control (units unknown) (unknown) Result panel 1395 (unknown) (no date) (unknown) (unknown) NEGATIVE (units unknown) (unknown) (unknown) (no date) (unknown) (unknown) O Positive (units unknown) (unknown) Result panel 1396 (unknown) (no date) (unknown) (unknown) TRANSFUSED PRODUCT: Packed Cells COUNT: 1 (units unknown) (unknown) Result panel 1397 (unknown) (no date) (unknown) (unknown) TRANSFUSED PRODUCT: Packed Cells COUNT: 1 (units unknown) (unknown) Result panel 1398 (unknown) (no date) (unknown) (unknown) (no value) (units unknown) (unknown) (unknown) (no date) (unknown) (unknown) 10/21/22 1513 (units unknown) (unknown) (unknown) (no date) (unknown) (unknown) 3151 (units unknown) (unknown) (unknown) (no date) (unknown) (unknown) Acute blood loss anemia (units unknown) (unknown) (unknown) (no date) (unknown) (unknown) Age/Sex: 72 / F (units unknown) (unknown) (unknown) (no date) (unknown) (unknown) Anesthesia Type: General and Local (units unknown) (unknown) (unknown) (no date) (unknown) (unknown) Applied: drain(s) (Medium Hemovac drain left thigh) (units unknown) (unknown) (unknown) (no date) (unknown) (unknown) Attention was turned to the left thigh. There is induration around the proximal (units unknown) (unknown) (unknown) (no date) (unknown) (unknown) Blood products transfused: none (units unknown) (unknown) (unknown) (no date) (unknown) (unknown) Click Yes if Unassisted: Yes (units unknown) (unknown) (unknown) (no date) (unknown) (unknown) Closure Type: primary (units unknown) (unknown) (unknown) (no date) (unknown) (unknown) Condition: stable (units unknown) (unknown) (unknown) (no date) (unknown) (unknown) Consent was signed. (units unknown) (unknown) (unknown) (no date) (unknown) (unknown) : 1950 Acct:[id number] (units unknown) (unknown) (unknown) (no date) (unknown) (unknown) Date of Service: 10/21/22 (units unknown) (unknown) (unknown) (no date) (unknown) (unknown) Date of procedure: 10/21/22 (units unknown) (unknown) (unknown) (no date) (unknown) (unknown) Disposition: PACU (units unknown) (unknown) (unknown) (no date) (unknown) (unknown) Estimated Blood Loss (mL): 100 (units unknown) (unknown) (unknown) (no date) (unknown) (unknown) Findings: (units unknown) (unknown) (unknown) (no date) (unknown) (unknown) Hemovac drain with 0 PDS 2-0 PDS and 3-0 nylon suture. An Aquacel dressing was (units unknown) (unknown) (unknown) (no date) (unknown) (unknown) Indications: (units unknown) (unknown) (unknown) (no date) (unknown) (unknown) Irrigation and evacuation left hip hematoma CPT code 07455 (units unknown) (unknown) (unknown) (no date) (unknown) (unknown) [address] [address] (units unknown) (unknown) (unknown) (no date) (unknown) (unknown) Lateral thigh hemato ma over the greater trochanter at the proximal aspect of the (units unknown) (unknown) (unknown) (no date) (unknown) (unknown) Morbid obesity BMI 39 (units unknown) (unknown) (unknown) (no date) (unknown) (unknown) Operative Date/Time/Diagnoses (units unknown) (unknown) (unknown) (no date) (unknown) (unknown) Operative Note (units unknown) (unknown) (unknown) (no date) (unknown) (unknown) Operative Notes (units unknown) (unknown) (unknown) (no date) (unknown) (unknown) Patient is a 72-year-old female has a history of a recent left total hip (units unknown) (unknown) (unknown) (no date) (unknown) (unknown) Patient is seen in [facility] preoperative area the site of surgery marked informed (units unknown) (unknown) (unknown) (no date) (unknown) (unknown) Patient: Barbara Garcia MR#: [id number] (units unknown) (unknown) (unknown) (no date) (unknown) (unknown) Plan for aftercare: (units unknown) (unknown) (unknown) (no date) (unknown) (unknown) Post-op diagnosis: same (units unknown) (unknown) (unknown) (no date) (unknown) (unknown) Post-operative (units unknown) (unknown) (unknown) (no date) (unknown) (unknown) Pre-op diagnosis: Le ft thigh hematoma (units unknown) (unknown) (unknown) (no date) (unknown) (unknown) Procedure + Clinicians (units unknown) (unknown) (unknown) (no date) (unknown) (unknown) Procedure in detail: (units unknown) (unknown) (unknown) (no date) (unknown) (unknown) Procedure: (units unknown) (unknown) (unknown) (no date) (unknown) (unknown) Provider: Carolee Paulino MD (units unknown) (unknown) (unknown) (no date) (unknown) (unknown) Same procedure as scheduled: Yes (units unknown) (unknown) (unknown) (no date) (unknown) (unknown) Signed By:<Electronically signed by Carolee Paulino MD> (units unknown) (unknown) (unknown) (no date) (unknown) (unknown) Specimen(s): none sent (units unknown) (unknown) (unknown) (no date) (unknown) (unknown) Surgeon: Carolee Paulino (units unknown) (unknown) (unknown) (no date) (unknown) (unknown) The patient was then awoken from anesthesia and taken to recovery room in good (units unknown) (unknown) (unknown) (no date) (unknown) (unknown) The risks and benefi ts of the procedure have been discussed with the patient and (units unknown) (unknown) (unknown) (no date) (unknown) (unknown) Time of procedure: 15:04 (units unknown) (unknown) (unknown) (no date) (unknown) (unknown) Tourniquet time (min ): 0 (units unknown) (unknown) (unknown) (no date) (unknown) (unknown) Weightbear as tolerated. Posterior hip precautions. Aspirin for DVT (units unknown) (unknown) (unknown) (no date) (unknown) (unknown) administered and the patient was rolled into the lateral position on the (units unknown) (unknown) (unknown) (no date) (unknown) (unknown) anesthesia team positioned supine on operative table. General anesthetic was (units unknown) (unknown) (unknown) (no date) (unknown) (unknown) aspect of the incision. This did fade once the patient was rolled up onto her (units unknown) (unknown) (unknown) (no date) (unknown) (unknown) at the lateral left thigh presumed hematoma versus seroma. She was also (units unknown) (unknown) (unknown) (no date) (unknown) (unknown) beanbag. Bony prominences were well padded. The left lower extremity was (units unknown) (unknown) (unknown) (no date) (unknown) (unknown) came back to the ER last night with increasing pain wound drainage and thigh (units unknown) (unknown) (unknown) (no date) (unknown) (unknown) cardiopulmonary complications and . The patient expressed a thorough (units unknown) (unknown) (unknown) (no date) (unknown) (unknown) concern for UTI. We will follow up in orthopedic clinic in 2 weeks for suture (units unknown) (unknown) (unknown) (no date) (unknown) (unknown) condition. There no immediate complications from this procedure. All counts (units unknown) (unknown) (unknown) (no date) (unknown) (unknown) consent confirmed. T he patient was brought back to the operating room by the (units unknown) (unknown) (unknown) (no date) (unknown) (unknown) damage to nerves and blood vessels, posttraumatic arthritis, DVT, PE, (units unknown) (unknown) (unknown) (no date) (unknown) (unknown) from the hospital on 10/08. She has been in a long term facility. She (units unknown) (unknown) (unknown) (no date) (unknown) (unknown) given the opportunit y to ask questions. The risks of surgery include but are (units unknown) (unknown) (unknown) (no date) (unknown) (unknown) hospitalist consult for medically complex patient, symptomatic loss anemia and (units unknown) (unknown) (unknown) (no date) (unknown) (unknown) hospitalization due to symptomatic blood loss anemia. She did receive 1 unit of (units unknown) (unknown) (unknown) (no date) (unknown) (unknown) incision that was dusky brown consistent with hematoma decompression. Remaining (units unknown) (unknown) (unknown) (no date) (unknown) (unknown) indicated for left thigh hematoma evacuation irrigation and debridement and (units unknown) (unknown) (unknown) (no date) (unknown) (unknown) left footdrop. (units unknown) (unknown) (unknown) (no date) (unknown) (unknown) less than 10 cc per shift or 48 hours whichever comes 1st. Internal medicine (units unknown) (unknown) (unknown) (no date) (unknown) (unknown) no active bleeding noted. Once this was completed the wound was debrided with a (units unknown) (unknown) (unknown) (no date) (unknown) (unknown) not limited to infection, need for additional procedures, persistence of pain, (units unknown) (unknown) (unknown) (no date) (unknown) (unknown) of appropriate preoperative antibiotics. All were in agreement. Additionally (units unknown) (unknown) (unknown) (no date) (unknown) (unknown) packed red cells in the operating room. She also had a low-grade fever prior to (units unknown) (unknown) (unknown) (no date) (unknown) (unknown) placed on the proxim al part of the incision. And a drain dressing was placed on (units unknown) (unknown) (unknown) (no date) (unknown) (unknown) prepped and draped i n the standard sterile fashion. A formal time-out procedure (units unknown) (unknown) (unknown) (no date) (unknown) (unknown) prophylaxis. Monitor H+H. Monitor drain output. Drain will be removed when (units unknown) (unknown) (unknown) (no date) (unknown) (unknown) removal. (units unknown) (unknown) (unknown) (no date) (unknown) (unknown) revision arthroplast y with cerclage wiring for fracture. She was discharged (units unknown) (unknown) (unknown) (no date) (unknown) (unknown) rongeur and curette. Old sutures were removed. Then a pulsatile lavage was (units unknown) (unknown) (unknown) (no date) (unknown) (unknown) side but there was firmness and some drainage from the proximal aspect of the (units unknown) (unknown) (unknown) (no date) (unknown) (unknown) cecilia were removed from the incision. Then a sharp blade was used to reopen (units unknown) (unknown) (unknown) (no date) (unknown) (unknown) swelling and worseni ng spasms. She was found to have a large fluid collection (units unknown) (unknown) (unknown) (no date) (unknown) (unknown) symptomatically anem ic with acute blood loss anemia hemoglobin 7.4. She was (units unknown) (unknown) (unknown) (no date) (unknown) (unknown) the medium Hemovac. (units unknown) (unknown) (unknown) (no date) (unknown) (unknown) the patient had received 1 unit of packed red cells. (units unknown) (unknown) (unknown) (no date) (unknown) (unknown) the proximal 8 cm of the incision this immediately encountered hematoma which (units unknown) (unknown) (unknown) (no date) (unknown) (unknown) this was completed [facility] wound was closed in a layered fashion over a medium (units unknown) (unknown) (unknown) (no date) (unknown) (unknown) transfusion and the suspicion of UTI. Patient was noted to have a preoperative (units unknown) (unknown) (unknown) (no date) (unknown) (unknown) understanding of the risks and benefits of surgery and has elected to proceed. (units unknown) (unknown) (unknown) (no date) (unknown) (unknown) used to wash the wou nd with 3 L of saline. There was no purulence noted. Once (units unknown) (unknown) (unknown) (no date) (unknown) (unknown) was evacuated into [facility] kidney basin. This was approximately 100 cc. There was (units unknown) (unknown) (unknown) (no date) (unknown) (unknown) was performed confirming the patient's side and site of surgery administration (units unknown) (unknown) (unknown) (no date) (unknown) (unknown) were correct. (units unknown) (unknown) (unknown) (no date) (unknown) (unknown) wound. Old hematoma blood and clot evacuated. Purulence. (units unknown) (unknown) Result panel 1399 (unknown) (no date) (unknown) (unknown) 24.5 % (unknown) (unknown) (no date) (unknown) (unknown) 8.4 g/dl (unknown) Result panel 1400 (unknown) (no date) (unknown) (unknown) > 60 ml/min (unknown) (unknown) (no date) (unknown) (unknown) > 60 ml/min (unknown) (unknown) (no date) (unknown) (unknown) 0.8 mg/dl (unknown) (unknown) (no date) (unknown) (unknown) 0.83 mg/dl (unknown) (unknown) (no date) (unknown) (unknown) 1.0 (units unknown) (unknown) (unknown) (no date) (unknown) (unknown) 127 mg/dl (unknown) (unknown) (no date) (unknown) (unknown) 127 mg/dl (unknown) (unknown) (no date) (unknown) (unknown) 134 mmol/l (unknown) (unknown) (no date) (unknown) (unknown) 17 mg/dl (unknown) (unknown) (no date) (unknown) (unknown) 20.5 (units unknown) (unknown) (unknown) (no date) (unknown) (unknown) 21 iu/l (unknown) (unknown) (no date) (unknown) (unknown) 27 mmol/l (unknown) (unknown) (no date) (unknown) (unknown) 28 iu/l (unknown) (unknown) (no date) (unknown) (unknown) 3.0 g/dl (unknown) (unknown) (no date) (unknown) (unknown) 3.1 g/dl (unknown) (unknown) (no date) (unknown) (unknown) 3.7 mmol/l (unknown) (unknown) (no date) (unknown) (unknown) 6.1 g/dl (unknown) (unknown) (no date) (unknown) (unknown) 8.3 mg/dl (unknown) (unknown) (no date) (unknown) (unknown) 86 u/l (unknown) (unknown) (no date) (unknown) (unknown) 98 mmol/l (unknown) Result panel 1401 (unknown) (no date) (unknown) (unknown) (no value) (units unknown) (unknown) (unknown) (no date) (unknown) (unknown) #90 tabs (units unknown) (unknown) (unknown) (no date) (unknown) (unknown) (4-6) #60 tabs (units unknown) (unknown) (unknown) (no date) (unknown) (unknown) (Vistaril) caps (units unknown) (unknown) (unknown) (no date) (unknown) (unknown) (Zegerid) (units unknown) (unknown) (unknown) (no date) (unknown) (unknown) (past 8 hours): (units unknown) (unknown) (unknown) (no date) (unknown) (unknown) 00:23 00:23 00:23 (units unknown) (unknown) (unknown) (no date) (unknown) (unknown) 01:04 05:00 15:25 (units unknown) (unknown) (unknown) (no date) (unknown) (unknown) 10/21/22 10/21/22 10/21/22 (units unknown) (unknown) (unknown) (no date) (unknown) (unknown) 10/21/22 15:25 (units unknown) (unknown) (unknown) (no date) (unknown) (unknown) 10/21/22 17:00 (units unknown) (unknown) (unknown) (no date) (unknown) (unknown) 10/21/22 Rx (units unknown) (unknown) (unknown) (no date) (unknown) (unknown) 10/21/22 (units unknown) (unknown) (unknown) (no date) (unknown) (unknown) 15:33 10/21/22 (units unknown) (unknown) (unknown) (no date) (unknown) (unknown) 15:38 10/21/22 (units unknown) (unknown) (unknown) (no date) (unknown) (unknown) 16:00 10/21/22 (units unknown) (unknown) (unknown) (no date) (unknown) (unknown) 16:30 (units unknown) (unknown) (unknown) (no date) (unknown) (unknown) 17:00 10/21/22 (units unknown) (unknown) (unknown) (no date) (unknown) (unknown) 17:00 (units unknown) (unknown) (unknown) (no date) (unknown) (unknown) 17:19 (units unknown) (unknown) (unknown) (no date) (unknown) (unknown) 17:29 10/21/22 (units unknown) (unknown) (unknown) (no date) (unknown) (unknown) 18:00 10/21/22 (units unknown) (unknown) (unknown) (no date) (unknown) (unknown) 19:35 (units unknown) (unknown) (unknown) (no date) (unknown) (unknown) 23:15 (units unknown) (unknown) (unknown) (no date) (unknown) (unknown) 3151 (units unknown) (unknown) (unknown) (no date) (unknown) (unknown) ALT 19 (units unknown) (unknown) (unknown) (no date) (unknown) (unknown) ALT 21 (units unknown) (unknown) (unknown) (no date) (unknown) (unknown) ALT (units unknown) (unknown) (unknown) (no date) (unknown) (unknown) AST 23 (units unknown) (unknown) (unknown) (no date) (unknown) (unknown) AST 28 (units unknown) (unknown) (unknown) (no date) (unknown) (unknown) AST (units unknown) (unknown) (unknown) (no date) (unknown) (unknown) Age/Sex: 72 / F (units unknown) (unknown) (unknown) (no date) (unknown) (unknown) Albumin 2.8 L (units unknown) (unknown) (unknown) (no date) (unknown) (unknown) Albumin 3.0 L (units unknown) (unknown) (unknown) (no date) (unknown) (unknown) Albumin (units unknown) (unknown) (unknown) (no date) (unknown) (unknown) Albumin/Globulin Rat io 1.0 (units unknown) (unknown) (unknown) (no date) (unknown) (unknown) Albumin/Globulin Rat io 1.1 (units unknown) (unknown) (unknown) (no date) (unknown) (unknown) Albumin/Globulin Ratio (units unknown) (unknown) (unknown) (no date) (unknown) (unknown) Alkaline Phosphatase 86 (units unknown) (unknown) (unknown) (no date) (unknown) (unknown) Alkaline Phosphatase 93 (units unknown) (unknown) (unknown) (no date) (unknown) (unknown) Alkaline Phosphatase (units unknown) (unknown) (unknown) (no date) (unknown) (unknown) Allergies (units unknown) (unknown) (unknown) (no date) (unknown) (unknown) Allergy/AdvReac Type Severity Reaction Status Date / Time (units unknown) (unknown) (unknown) (no date) (unknown) (unknown) Antibody Screen Negative (units unknown) (unknown) (unknown) (no date) (unknown) (unknown) Antibody Screen (units unknown) (unknown) (unknown) (no date) (unknown) (unknown) BUN 17 (units unknown) (unknown) (unknown) (no date) (unknown) (unknown) BUN 19 H (units unknown) (unknown) (unknown) (no date) (unknown) (unknown) BUN (units unknown) (unknown) (unknown) (no date) (unknown) (unknown) BUN/Creatinine Ratio 19.0 (units unknown) (unknown) (unknown) (no date) (unknown) (unknown) BUN/Creatinine Ratio 20.5 (units unknown) (unknown) (unknown) (no date) (unknown) (unknown) BUN/Creatinine Ratio (units unknown) (unknown) (unknown) (no date) (unknown) (unknown) Baso # (Auto) 0 (units unknown) (unknown) (unknown) (no date) (unknown) (unknown) Baso # (Auto) (units unknown) (unknown) (unknown) (no date) (unknown) (unknown) Baso % (Auto) 0.4 (units unknown) (unknown) (unknown) (no date) (unknown) (unknown) Baso % (Auto) (units unknown) (unknown) (unknown) (no date) (unknown) (unknown) Blood Pressure 121/6 1 130/57 L (units unknown) (unknown) (unknown) (no date) (unknown) (unknown) Blood Pressure 134/74 (units unknown) (unknown) (unknown) (no date) (unknown) (unknown) Blood Pressure 134/7 7 111/63 120/47 L (units unknown) (unknown) (unknown) (no date) (unknown) (unknown) Blood Pressure 147/7 0 H 160/70 H (units unknown) (unknown) (unknown) (no date) (unknown) (unknown) Blood Type O Positive (units unknown) (unknown) (unknown) (no date) (unknown) (unknown) Blood Type (units unknown) (unknown) (unknown) (no date) (unknown) (unknown) Calcium 8.0 L (units unknown) (unknown) (unknown) (no date) (unknown) (unknown) Calcium 8.3 L (units unknown) (unknown) (unknown) (no date) (unknown) (unknown) Calcium (units unknown) (unknown) (unknown) (no date) (unknown) (unknown) Carbon Dioxide 27 (units unknown) (unknown) (unknown) (no date) (unknown) (unknown) Carbon Dioxide 28 (units unknown) (unknown) (unknown) (no date) (unknown) (unknown) Carbon Dioxide (units unknown) (unknown) (unknown) (no date) (unknown) (unknown) Chief complaint: Gre en Drainage/Bleeding (units unknown) (unknown) (unknown) (no date) (unknown) (unknown) Chloride 98 (units unknown) (unknown) (unknown) (no date) (unknown) (unknown) Chloride (units unknown) (unknown) (unknown) (no date) (unknown) (unknown) Consult Note (units unknown) (unknown) (unknown) (no date) (unknown) (unknown) Consult details (units unknown) (unknown) (unknown) (no date) (unknown) (unknown) Creatinine 0.83 (units unknown) (unknown) (unknown) (no date) (unknown) (unknown) Creatinine 1.00 (units unknown) (unknown) (unknown) (no date) (unknown) (unknown) Creatinine (units unknown) (unknown) (unknown) (no date) (unknown) (unknown) Crossmatch See Detail (units unknown) (unknown) (unknown) (no date) (unknown) (unknown) Crossmatch (units unknown) (unknown) (unknown) (no date) (unknown) (unknown) : 1950 Acct:[id number] (units unknown) (unknown) (unknown) (no date) (unknown) (unknown) Date Patient Seen: 10/21/22 (units unknown) (unknown) (unknown) (no date) (unknown) (unknown) Date of Service: 10/21/22 (units unknown) (unknown) (unknown) (no date) (unknown) (unknown) Depression (units unknown) (unknown) (unknown) (no date) (unknown) (unknown) Diverticulitis (units unknown) (unknown) (unknown) (no date) (unknown) (unknown) Eos # (Auto) 400 (units unknown) (unknown) (unknown) (no date) (unknown) (unknown) Eos # (Auto) (units unknown) (unknown) (unknown) (no date) (unknown) (unknown) Eos % (Auto) 5.9 H (units unknown) (unknown) (unknown) (no date) (unknown) (unknown) Eos % (Auto) (units unknown) (unknown) (unknown) (no date) (unknown) (unknown) Estimated GFR > 60 (units unknown) (unknown) (unknown) (no date) (unknown) (unknown) Estimated GFR 60 (units unknown) (unknown) (unknown) (no date) (unknown) (unknown) Estimated GFR (units unknown) (unknown) (unknown) (no date) (unknown) (unknown) Exam (units unknown) (unknown) (unknown) (no date) (unknown) (unknown) Extra Strength) (units unknown) (unknown) (unknown) (no date) (unknown) (unknown) GERD (gastroesophage al reflux disease) (units unknown) (unknown) (unknown) (no date) (unknown) (unknown) Globulin 2.6 (units unknown) (unknown) (unknown) (no date) (unknown) (unknown) Globulin 3.1 (units unknown) (unknown) (unknown) (no date) (unknown) (unknown) Globulin (units unknown) (unknown) (unknown) (no date) (unknown) (unknown) Glucose 111 H (units unknown) (unknown) (unknown) (no date) (unknown) (unknown) Glucose 127 H (units unknown) (unknown) (unknown) (no date) (unknown) (unknown) Glucose (units unknown) (unknown) (unknown) (no date) (unknown) (unknown) HLD (hyperlipidemia) (units unknown) (unknown) (unknown) (no date) (unknown) (unknown) Hct 21.1 L (units unknown) (unknown) (unknown) (no date) (unknown) (unknown) Hct 24.5 L (units unknown) (unknown) (unknown) (no date) (unknown) (unknown) Hct (units unknown) (unknown) (unknown) (no date) (unknown) (unknown) Hearing impaired (units unknown) (unknown) (unknown) (no date) (unknown) (unknown) Hgb 7.4 L (units unknown) (unknown) (unknown) (no date) (unknown) (unknown) Hgb 8.4 L (units unknown) (unknown) (unknown) (no date) (unknown) (unknown) Hgb (units unknown) (unknown) (unknown) (no date) (unknown) (unknown) History of Present Illness (units unknown) (unknown) (unknown) (no date) (unknown) (unknown) History of bladder surgery (units unknown) (unknown) (unknown) (no date) (unknown) (unknown) History of total lef t knee replacement (units unknown) (unknown) (unknown) (no date) (unknown) (unknown) History of total rig ht knee replacement (units unknown) (unknown) (unknown) (no date) (unknown) (unknown) History (units unknown) (unknown) (unknown) (no date) (unknown) (unknown) Home Medications and Allergies (units unknown) (unknown) (unknown) (no date) (unknown) (unknown) Home Medications (units unknown) (unknown) (unknown) (no date) (unknown) (unknown) Hx of left breast biopsy (units unknown) (unknown) (unknown) (no date) (unknown) (unknown) Hx of right breast biopsy (units unknown) (unknown) (unknown) (no date) (unknown) (unknown) Hx of tonsillectomy (units unknown) (unknown) (unknown) (no date) (unknown) (unknown) [address] [address] (units unknown) (unknown) (unknown) (no date) (unknown) (unknown) Laboratory Results - last 24 hr (units unknown) (unknown) (unknown) (no date) (unknown) (unknown) Labs (units unknown) (unknown) (unknown) (no date) (unknown) (unknown) Labs: (units unknown) (unknown) (unknown) (no date) (unknown) (unknown) Lactate 0.8 (units unknown) (unknown) (unknown) (no date) (unknown) (unknown) Lactate (units unknown) (unknown) (unknown) (no date) (unknown) (unknown) Lymph # (Auto) 1000 L (units unknown) (unknown) (unknown) (no date) (unknown) (unknown) Lymph # (Auto) (units unknown) (unknown) (unknown) (no date) (unknown) (unknown) Lymph % (Auto) 14.5 L (units unknown) (unknown) (unknown) (no date) (unknown) (unknown) Lymph % (Auto) (units unknown) (unknown) (unknown) (no date) (unknown) (unknown) MCH 28.8 (units unknown) (unknown) (unknown) (no date) (unknown) (unknown) MCH (units unknown) (unknown) (unknown) (no date) (unknown) (unknown) MCHC 34.9 (units unknown) (unknown) (unknown) (no date) (unknown) (unknown) MCHC (units unknown) (unknown) (unknown) (no date) (unknown) (unknown) MCV 82.6 (units unknown) (unknown) (unknown) (no date) (unknown) (unknown) MCV (units unknown) (unknown) (unknown) (no date) (unknown) (unknown) Medical History (units unknown) (unknown) (unknown) (no date) (unknown) (unknown) Medication Instructions Recorded Confirmed Type (units unknown) (unknown) (unknown) (no date) (unknown) (unknown) Meds (units unknown) (unknown) (unknown) (no date) (unknown) (unknown) [place] # (Auto) 700 (units unknown) (unknown) (unknown) (no date) (unknown) (unknown) [place] # (Auto) (units unknown) (unknown) (unknown) (no date) (unknown) (unknown) [place] % (Auto) 10.7 (units unknown) (unknown) (unknown) (no date) (unknown) (unknown) [place] % (Auto) (units unknown) (unknown) (unknown) (no date) (unknown) (unknown) Neut # (Auto) 4700 (units unknown) (unknown) (unknown) (no date) (unknown) (unknown) Neut # (Auto) (units unknown) (unknown) (unknown) (no date) (unknown) (unknown) Neut % (Auto) 68.5 (units unknown) (unknown) (unknown) (no date) (unknown) (unknown) Neut % (Auto) (units unknown) (unknown) (unknown) (no date) (unknown) (unknown) No Known Drug Allergies Allergy Verified 10/02/22 18:28 (units unknown) (unknown) (unknown) (no date) (unknown) (unknown) Objective (units unknown) (unknown) (unknown) (no date) (unknown) (unknown) Osteoarthritis (units unknown) (unknown) (unknown) (no date) (unknown) (unknown) Oxygen Delivery Meth od Nasal Cannula Nasal Cannula Nasal Cannula (units unknown) (unknown) (unknown) (no date) (unknown) (unknown) Oxygen Delivery Meth od Nasal Cannula (units unknown) (unknown) (unknown) (no date) (unknown) (unknown) Oxygen Delivery Method (units unknown) (unknown) (unknown) (no date) (unknown) (unknown) Oxygen Flow Rate 0 0 3 (units unknown) (unknown) (unknown) (no date) (unknown) (unknown) Oxygen Flow Rate 0 2 0 (units unknown) (unknown) (unknown) (no date) (unknown) (unknown) Oxygen Flow Rate 3 3 (units unknown) (unknown) (unknown) (no date) (unknown) (unknown) Oxygen Flow Rate 3 (units unknown) (unknown) (unknown) (no date) (unknown) (unknown) PFSH (units unknown) (unknown) (unknown) (no date) (unknown) (unknown) Patient: Barbara Garcia MR#: [id number] (units unknown) (unknown) (unknown) (no date) (unknown) (unknown) Plt Count 470 H (units unknown) (unknown) (unknown) (no date) (unknown) (unknown) Plt Count (units unknown) (unknown) (unknown) (no date) (unknown) (unknown) Potassium 3.5 (units unknown) (unknown) (unknown) (no date) (unknown) (unknown) Potassium 3.7 (units unknown) (unknown) (unknown) (no date) (unknown) (unknown) Potassium (units unknown) (unknown) (unknown) (no date) (unknown) (unknown) Procalcitonin 0.47 (units unknown) (unknown) (unknown) (no date) (unknown) (unknown) Procalcitonin (units unknown) (unknown) (unknown) (no date) (unknown) (unknown) Provider: Shelly Arora [employer] (units unknown) (unknown) (unknown) (no date) (unknown) (unknown) Pulse Oximetry 96 94 97 (units unknown) (unknown) (unknown) (no date) (unknown) (unknown) Pulse Oximetry 96 96 97 (units unknown) (unknown) (unknown) (no date) (unknown) (unknown) Pulse Oximetry 97 96 (units unknown) (unknown) (unknown) (no date) (unknown) (unknown) Pulse Oximetry 98 (units unknown) (unknown) (unknown) (no date) (unknown) (unknown) Pulse Rate 70 (units unknown) (unknown) (unknown) (no date) (unknown) (unknown) Pulse Rate 87 89 83 (units unknown) (unknown) (unknown) (no date) (unknown) (unknown) Pulse Rate 87 89 (units unknown) (unknown) (unknown) (no date) (unknown) (unknown) Pulse Rate 92 H 91 H (units unknown) (unknown) (unknown) (no date) (unknown) (unknown) RBC 2.55 L (units unknown) (unknown) (unknown) (no date) (unknown) (unknown) RBC (units unknown) (unknown) (unknown) (no date) (unknown) (unknown) RDW 15.9 H (units unknown) (unknown) (unknown) (no date) (unknown) (unknown) RDW (units unknown) (unknown) (unknown) (no date) (unknown) (unknown) Respiratory Rate 15 15 (units unknown) (unknown) (unknown) (no date) (unknown) (unknown) Respiratory Rate 18 18 18 (units unknown) (unknown) (unknown) (no date) (unknown) (unknown) Respiratory Rate 18 (units unknown) (unknown) (unknown) (no date) (unknown) (unknown) Respiratory Rate 19 18 (units unknown) (unknown) (unknown) (no date) (unknown) (unknown) SARS-CoV-2 (PCR) Negative (units unknown) (unknown) (unknown) (no date) (unknown) (unknown) SARS-CoV-2 (PCR) (units unknown) (unknown) (unknown) (no date) (unknown) (unknown) Seasonal allergies (units unknown) (unknown) (unknown) (no date) (unknown) (unknown) Signed By: (units unknown) (unknown) (unknown) (no date) (unknown) (unknown) Smoking Status: Carmencita rubin smoker (units unknown) (unknown) (unknown) (no date) (unknown) (unknown) Social History (units unknown) (unknown) (unknown) (no date) (unknown) (unknown) Sodium 131 L (units unknown) (unknown) (unknown) (no date) (unknown) (unknown) Sodium 134 L (units unknown) (unknown) (unknown) (no date) (unknown) (unknown) Sodium (units unknown) (unknown) (unknown) (no date) (unknown) (unknown) Surgical History (units unknown) (unknown) (unknown) (no date) (unknown) (unknown) Temperature 96.8 F L (units unknown) (unknown) (unknown) (no date) (unknown) (unknown) Temperature 97.1 F L 97.3 F L (units unknown) (unknown) (unknown) (no date) (unknown) (unknown) Temperature 97.3 F L 96.9 F L 97.7 F (units unknown) (unknown) (unknown) (no date) (unknown) (unknown) Temperature (units unknown) (unknown) (unknown) (no date) (unknown) (unknown) Time Patient Seen: 21:00 (units unknown) (unknown) (unknown) (no date) (unknown) (unknown) Tobacco + Substance Use (units unknown) (unknown) (unknown) (no date) (unknown) (unknown) Total Bilirubin 0.3 (units unknown) (unknown) (unknown) (no date) (unknown) (unknown) Total Bilirubin 0.8 (units unknown) (unknown) (unknown) (no date) (unknown) (unknown) Total Bilirubin (units unknown) (unknown) (unknown) (no date) (unknown) (unknown) Total Protein 5.4 L (units unknown) (unknown) (unknown) (no date) (unknown) (unknown) Total Protein 6.1 L (units unknown) (unknown) (unknown) (no date) (unknown) (unknown) Total Protein (units unknown) (unknown) (unknown) (no date) (unknown) (unknown) Vital Signs (units unknown) (unknown) (unknown) (no date) (unknown) (unknown) WBC 6.9 (units unknown) (unknown) (unknown) (no date) (unknown) (unknown) WBC (units unknown) (unknown) (unknown) (no date) (unknown) (unknown) [Embedded Image Not Available] (units unknown) (unknown) (unknown) (no date) (unknown) (unknown) acetaminophen 325 mg tablet 650 mg PO Q6H PRN fever or pain 09/15/22 10/21/22 Rx (units unknown) (unknown) (unknown) (no date) (unknown) (unknown) alcohol intake: current (units unknown) (unknown) (unknown) (no date) (unknown) (unknown) allergies (units unknown) (unknown) (unknown) (no date) (unknown) (unknown) aspirin 81 mg tablet,delayed 81 mg PO BID 6 weeks #84 tabs 09/15/22 10/21/22 Rx (units unknown) (unknown) (unknown) (no date) (unknown) (unknown) aspirin-acetaminophe n- caffeine 250 1 - 2 tab PO BID 08/13/22 10/21/22 History (units unknown) (unknown) (unknown) (no date) (unknown) (unknown) atorvastatin 20 mg tablet 20 mg PO BEDTIME 08/13/22 10/21/22 History (units unknown) (unknown) (unknown) (no date) (unknown) (unknown) bicarbonate 1.1 gram capsule (units unknown) (unknown) (unknown) (no date) (unknown) (unknown) caps (units unknown) (unknown) (unknown) (no date) (unknown) (unknown) cetirizine 10 mg tablet (Zyrtec) 10 mg PO DAILY PRN Seasonal 08/13/22 10/21/22 (units unknown) (unknown) (unknown) (no date) (unknown) (unknown) docusate sodium 100 mg capsule 100 mg PO BID PRN constipation #30 09/15/22 (units unknown) (unknown) (unknown) (no date) (unknown) (unknown) escitalopram oxalate 20 mg tablet 20 mg PO DAILY 08/13/22 10/21/22 History (units unknown) (unknown) (unknown) (no date) (unknown) (unknown) household members: spouse (units unknown) (unknown) (unknown) (no date) (unknown) (unknown) hydroxyzine pamoate 25 mg capsule 25 mg PO TID-QID PRN itching #60 09/30/22 (units unknown) (unknown) (unknown) (no date) (unknown) (unknown) mg-250 mg-65 mg tabl et (Excedrin (units unknown) (unknown) (unknown) (no date) (unknown) (unknown) omeprazole 20 mg-sodium 1 cap PO DAILY PRN GI Upset 08/13/22 10/21/22 History (units unknown) (unknown) (unknown) (no date) (unknown) (unknown) oxycodone 5 mg table t 5 mg PO Q4-6H PRN Pain, Moderate 10/06/22 Rx (units unknown) (unknown) (unknown) (no date) (unknown) (unknown) release (units unknown) (unknown) (unknown) (no date) (unknown) (unknown) solifenacin 10 mg tablet (Vesicare) 10 mg PO DAILY 08/13/22 10/21/22 History (units unknown) (unknown) Result panel 1402 (unknown) (no date) (unknown) (unknown) (no value) (units unknown) (unknown) (unknown) (no date) (unknown) (unknown) #90 tabs (units unknown) (unknown) (unknown) (no date) (unknown) (unknown) (4-6) #60 tabs (units unknown) (unknown) (unknown) (no date) (unknown) (unknown) (Vistaril) caps (units unknown) (unknown) (unknown) (no date) (unknown) (unknown) (Zegerid) (units unknown) (unknown) (unknown) (no date) (unknown) (unknown) (past 8 hours): (units unknown) (unknown) (unknown) (no date) (unknown) (unknown) 00:23 00:23 00:23 (units unknown) (unknown) (unknown) (no date) (unknown) (unknown) 01:04 05:00 15:25 (units unknown) (unknown) (unknown) (no date) (unknown) (unknown) 10/21/22 10/21/22 10/21/22 (units unknown) (unknown) (unknown) (no date) (unknown) (unknown) 10/21/22 15:25 (units unknown) (unknown) (unknown) (no date) (unknown) (unknown) 10/21/22 17:00 (units unknown) (unknown) (unknown) (no date) (unknown) (unknown) 10/21/22 Rx (units unknown) (unknown) (unknown) (no date) (unknown) (unknown) 10/21/22 (units unknown) (unknown) (unknown) (no date) (unknown) (unknown) 15:33 10/21/22 (units unknown) (unknown) (unknown) (no date) (unknown) (unknown) 15:38 10/21/22 (units unknown) (unknown) (unknown) (no date) (unknown) (unknown) 16:00 10/21/22 (units unknown) (unknown) (unknown) (no date) (unknown) (unknown) 16:30 (units unknown) (unknown) (unknown) (no date) (unknown) (unknown) 17:00 10/21/22 (units unknown) (unknown) (unknown) (no date) (unknown) (unknown) 17:00 (units unknown) (unknown) (unknown) (no date) (unknown) (unknown) 17:19 (units unknown) (unknown) (unknown) (no date) (unknown) (unknown) 17:29 10/21/22 (units unknown) (unknown) (unknown) (no date) (unknown) (unknown) 18:00 10/21/22 (units unknown) (unknown) (unknown) (no date) (unknown) (unknown) 19:35 (units unknown) (unknown) (unknown) (no date) (unknown) (unknown) 23:15 (units unknown) (unknown) (unknown) (no date) (unknown) (unknown) 3151 (units unknown) (unknown) (unknown) (no date) (unknown) (unknown) ALT 19 (units unknown) (unknown) (unknown) (no date) (unknown) (unknown) ALT 21 (units unknown) (unknown) (unknown) (no date) (unknown) (unknown) ALT (units unknown) (unknown) (unknown) (no date) (unknown) (unknown) AST 23 (units unknown) (unknown) (unknown) (no date) (unknown) (unknown) AST 28 (units unknown) (unknown) (unknown) (no date) (unknown) (unknown) AST (units unknown) (unknown) (unknown) (no date) (unknown) (unknown) Age/Sex: 72 / F (units unknown) (unknown) (unknown) (no date) (unknown) (unknown) Albumin 2.8 L (units unknown) (unknown) (unknown) (no date) (unknown) (unknown) Albumin 3.0 L (units unknown) (unknown) (unknown) (no date) (unknown) (unknown) Albumin (units unknown) (unknown) (unknown) (no date) (unknown) (unknown) Albumin/Globulin Rat io 1.0 (units unknown) (unknown) (unknown) (no date) (unknown) (unknown) Albumin/Globulin Rat io 1.1 (units unknown) (unknown) (unknown) (no date) (unknown) (unknown) Albumin/Globulin Ratio (units unknown) (unknown) (unknown) (no date) (unknown) (unknown) Alkaline Phosphatase 86 (units unknown) (unknown) (unknown) (no date) (unknown) (unknown) Alkaline Phosphatase 93 (units unknown) (unknown) (unknown) (no date) (unknown) (unknown) Alkaline Phosphatase (units unknown) (unknown) (unknown) (no date) (unknown) (unknown) Allergies (units unknown) (unknown) (unknown) (no date) (unknown) (unknown) Allergy/AdvReac Type Severity Reaction Status Date / Time (units unknown) (unknown) (unknown) (no date) (unknown) (unknown) Antibody Screen Negative (units unknown) (unknown) (unknown) (no date) (unknown) (unknown) Antibody Screen (units unknown) (unknown) (unknown) (no date) (unknown) (unknown) BUN 17 (units unknown) (unknown) (unknown) (no date) (unknown) (unknown) BUN 19 H (units unknown) (unknown) (unknown) (no date) (unknown) (unknown) BUN (units unknown) (unknown) (unknown) (no date) (unknown) (unknown) BUN/Creatinine Ratio 19.0 (units unknown) (unknown) (unknown) (no date) (unknown) (unknown) BUN/Creatinine Ratio 20.5 (units unknown) (unknown) (unknown) (no date) (unknown) (unknown) BUN/Creatinine Ratio (units unknown) (unknown) (unknown) (no date) (unknown) (unknown) Baso # (Auto) 0 (units unknown) (unknown) (unknown) (no date) (unknown) (unknown) Baso # (Auto) (units unknown) (unknown) (unknown) (no date) (unknown) (unknown) Baso % (Auto) 0.4 (units unknown) (unknown) (unknown) (no date) (unknown) (unknown) Baso % (Auto) (units unknown) (unknown) (unknown) (no date) (unknown) (unknown) Blood Pressure 121/6 1 130/57 L (units unknown) (unknown) (unknown) (no date) (unknown) (unknown) Blood Pressure 134/74 (units unknown) (unknown) (unknown) (no date) (unknown) (unknown) Blood Pressure 134/7 7 111/63 120/47 L (units unknown) (unknown) (unknown) (no date) (unknown) (unknown) Blood Pressure 147/7 0 H 160/70 H (units unknown) (unknown) (unknown) (no date) (unknown) (unknown) Blood Type O Positive (units unknown) (unknown) (unknown) (no date) (unknown) (unknown) Blood Type (units unknown) (unknown) (unknown) (no date) (unknown) (unknown) Calcium 8.0 L (units unknown) (unknown) (unknown) (no date) (unknown) (unknown) Calcium 8.3 L (units unknown) (unknown) (unknown) (no date) (unknown) (unknown) Calcium (units unknown) (unknown) (unknown) (no date) (unknown) (unknown) Carbon Dioxide 27 (units unknown) (unknown) (unknown) (no date) (unknown) (unknown) Carbon Dioxide 28 (units unknown) (unknown) (unknown) (no date) (unknown) (unknown) Carbon Dioxide (units unknown) (unknown) (unknown) (no date) (unknown) (unknown) Chief complaint: Gre en Drainage/Bleeding (units unknown) (unknown) (unknown) (no date) (unknown) (unknown) Chloride 98 (units unknown) (unknown) (unknown) (no date) (unknown) (unknown) Chloride (units unknown) (unknown) (unknown) (no date) (unknown) (unknown) [place] for I+D. Wh en a catheter was placed during surgery there was concerns (units unknown) (unknown) (unknown) (no date) (unknown) (unknown) Consult Note (units unknown) (unknown) (unknown) (no date) (unknown) (unknown) Consult details (units unknown) (unknown) (unknown) (no date) (unknown) (unknown) Creatinine 0.83 (units unknown) (unknown) (unknown) (no date) (unknown) (unknown) Creatinine 1.00 (units unknown) (unknown) (unknown) (no date) (unknown) (unknown) Creatinine (units unknown) (unknown) (unknown) (no date) (unknown) (unknown) Crossmatch See Detail (units unknown) (unknown) (unknown) (no date) (unknown) (unknown) Crossmatch (units unknown) (unknown) (unknown) (no date) (unknown) (unknown) : 1950 Acct:[id number] (units unknown) (unknown) (unknown) (no date) (unknown) (unknown) Date Patient Seen: 10/21/22 (units unknown) (unknown) (unknown) (no date) (unknown) (unknown) Date of Service: 10/21/22 (units unknown) (unknown) (unknown) (no date) (unknown) (unknown) Depression (units unknown) (unknown) (unknown) (no date) (unknown) (unknown) Diverticulitis (units unknown) (unknown) (unknown) (no date) (unknown) (unknown) Dr. Paulino graciously requested that the hospitalist Service consult (units unknown) (unknown) (unknown) (no date) (unknown) (unknown) Mely Garcia is a 72-year-old female with a history of depression, (units unknown) (unknown) (unknown) (no date) (unknown) (unknown) Eos # (Auto) 400 (units unknown) (unknown) (unknown) (no date) (unknown) (unknown) Eos # (Auto) (units unknown) (unknown) (unknown) (no date) (unknown) (unknown) Eos % (Auto) 5.9 H (units unknown) (unknown) (unknown) (no date) (unknown) (unknown) Eos % (Auto) (units unknown) (unknown) (unknown) (no date) (unknown) (unknown) Estimated GFR > 60 (units unknown) (unknown) (unknown) (no date) (unknown) (unknown) Estimated GFR 60 (units unknown) (unknown) (unknown) (no date) (unknown) (unknown) Estimated GFR (units unknown) (unknown) (unknown) (no date) (unknown) (unknown) Exam (units unknown) (unknown) (unknown) (no date) (unknown) (unknown) Extra Strength) (units unknown) (unknown) (unknown) (no date) (unknown) (unknown) GERD (gastroesophage al reflux disease) (units unknown) (unknown) (unknown) (no date) (unknown) (unknown) Globulin 2.6 (units unknown) (unknown) (unknown) (no date) (unknown) (unknown) Globulin 3.1 (units unknown) (unknown) (unknown) (no date) (unknown) (unknown) Globulin (units unknown) (unknown) (unknown) (no date) (unknown) (unknown) Glucose 111 H (units unknown) (unknown) (unknown) (no date) (unknown) (unknown) Glucose 127 H (units unknown) (unknown) (unknown) (no date) (unknown) (unknown) Glucose (units unknown) (unknown) (unknown) (no date) (unknown) (unknown) HLD (hyperlipidemia) (units unknown) (unknown) (unknown) (no date) (unknown) (unknown) Hct 21.1 L (units unknown) (unknown) (unknown) (no date) (unknown) (unknown) Hct 24.5 L (units unknown) (unknown) (unknown) (no date) (unknown) (unknown) Hct (units unknown) (unknown) (unknown) (no date) (unknown) (unknown) Hearing impaired (units unknown) (unknown) (unknown) (no date) (unknown) (unknown) Hgb 7.4 L (units unknown) (unknown) (unknown) (no date) (unknown) (unknown) Hgb 8.4 L (units unknown) (unknown) (unknown) (no date) (unknown) (unknown) Hgb (units unknown) (unknown) (unknown) (no date) (unknown) (unknown) History of Present Illness (units unknown) (unknown) (unknown) (no date) (unknown) (unknown) History of bladder surgery (units unknown) (unknown) (unknown) (no date) (unknown) (unknown) History of total lef t knee replacement (units unknown) (unknown) (unknown) (no date) (unknown) (unknown) History of total rig ht knee replacement (units unknown) (unknown) (unknown) (no date) (unknown) (unknown) History (units unknown) (unknown) (unknown) (no date) (unknown) (unknown) Home Medications and Allergies (units unknown) (unknown) (unknown) (no date) (unknown) (unknown) Home Medications (units unknown) (unknown) (unknown) (no date) (unknown) (unknown) Hx of left breast biopsy (units unknown) (unknown) (unknown) (no date) (unknown) (unknown) Hx of right breast biopsy (units unknown) (unknown) (unknown) (no date) (unknown) (unknown) Hx of tonsillectomy (units unknown) (unknown) (unknown) (no date) (unknown) (unknown) [address] [address] (units unknown) (unknown) (unknown) (no date) (unknown) (unknown) Laboratory Results - last 24 hr (units unknown) (unknown) (unknown) (no date) (unknown) (unknown) Labs (units unknown) (unknown) (unknown) (no date) (unknown) (unknown) Labs: (units unknown) (unknown) (unknown) (no date) (unknown) (unknown) Lactate 0.8 (units unknown) (unknown) (unknown) (no date) (unknown) (unknown) Lactate (units unknown) (unknown) (unknown) (no date) (unknown) (unknown) Lymph # (Auto) 1000 L (units unknown) (unknown) (unknown) (no date) (unknown) (unknown) Lymph # (Auto) (units unknown) (unknown) (unknown) (no date) (unknown) (unknown) Lymph % (Auto) 14.5 L (units unknown) (unknown) (unknown) (no date) (unknown) (unknown) Lymph % (Auto) (units unknown) (unknown) (unknown) (no date) (unknown) (unknown) MCH 28.8 (units unknown) (unknown) (unknown) (no date) (unknown) (unknown) MCH (units unknown) (unknown) (unknown) (no date) (unknown) (unknown) MCHC 34.9 (units unknown) (unknown) (unknown) (no date) (unknown) (unknown) MCHC (units unknown) (unknown) (unknown) (no date) (unknown) (unknown) MCV 82.6 (units unknown) (unknown) (unknown) (no date) (unknown) (unknown) MCV (units unknown) (unknown) (unknown) (no date) (unknown) (unknown) Medical History (units unknown) (unknown) (unknown) (no date) (unknown) (unknown) Medication Instructions Recorded Confirmed Type (units unknown) (unknown) (unknown) (no date) (unknown) (unknown) Meds (units unknown) (unknown) (unknown) (no date) (unknown) (unknown) [place] # (Auto) 700 (units unknown) (unknown) (unknown) (no date) (unknown) (unknown) [place] # (Auto) (units unknown) (unknown) (unknown) (no date) (unknown) (unknown) [place] % (Auto) 10.7 (units unknown) (unknown) (unknown) (no date) (unknown) (unknown) [place] % (Auto) (units unknown) (unknown) (unknown) (no date) (unknown) (unknown) Narrative: (units unknown) (unknown) (unknown) (no date) (unknown) (unknown) Neut # (Auto) 4700 (units unknown) (unknown) (unknown) (no date) (unknown) (unknown) Neut # (Auto) (units unknown) (unknown) (unknown) (no date) (unknown) (unknown) Neut % (Auto) 68.5 (units unknown) (unknown) (unknown) (no date) (unknown) (unknown) Neut % (Auto) (units unknown) (unknown) (unknown) (no date) (unknown) (unknown) No Known Drug Allergies Allergy Verified 10/02/22 18:28 (units unknown) (unknown) (unknown) (no date) (unknown) (unknown) OR for 27 through 10/02/[address] River for a ORIF greater trochanteric (units unknown) (unknown) (unknown) (no date) (unknown) (unknown) Objective (units unknown) (unknown) (unknown) (no date) (unknown) (unknown) Osteoarthritis (units unknown) (unknown) (unknown) (no date) (unknown) (unknown) Oxygen Delivery Meth od Nasal Cannula Nasal Cannula Nasal Cannula (units unknown) (unknown) (unknown) (no date) (unknown) (unknown) Oxygen Delivery Meth od Nasal Cannula (units unknown) (unknown) (unknown) (no date) (unknown) (unknown) Oxygen Delivery Method (units unknown) (unknown) (unknown) (no date) (unknown) (unknown) Oxygen Flow Rate 0 0 3 (units unknown) (unknown) (unknown) (no date) (unknown) (unknown) Oxygen Flow Rate 0 2 0 (units unknown) (unknown) (unknown) (no date) (unknown) (unknown) Oxygen Flow Rate 3 3 (units unknown) (unknown) (unknown) (no date) (unknown) (unknown) Oxygen Flow Rate 3 (units unknown) (unknown) (unknown) (no date) (unknown) (unknown) PFSH (units unknown) (unknown) (unknown) (no date) (unknown) (unknown) Patient is resting quite comfortably in bed, still quite sedated from anesthesia (units unknown) (unknown) (unknown) (no date) (unknown) (unknown) Patient: Barbara Garcia MR#: [id number] (units unknown) (unknown) (unknown) (no date) (unknown) (unknown) Plt Count 470 H (units unknown) (unknown) (unknown) (no date) (unknown) (unknown) Plt Count (units unknown) (unknown) (unknown) (no date) (unknown) (unknown) Potassium 3.5 (units unknown) (unknown) (unknown) (no date) (unknown) (unknown) Potassium 3.7 (units unknown) (unknown) (unknown) (no date) (unknown) (unknown) Potassium (units unknown) (unknown) (unknown) (no date) (unknown) (unknown) Procalcitonin 0.47 (units unknown) (unknown) (unknown) (no date) (unknown) (unknown) Procalcitonin (units unknown) (unknown) (unknown) (no date) (unknown) (unknown) Provider: Shelly Arora [employer] [facility] (units unknown) (unknown) (unknown) (no date) (unknown) (unknown) Pulse Oximetry 96 94 97 (units unknown) (unknown) (unknown) (no date) (unknown) (unknown) Pulse Oximetry 96 96 97 (units unknown) (unknown) (unknown) (no date) (unknown) (unknown) Pulse Oximetry 97 96 (units unknown) (unknown) (unknown) (no date) (unknown) (unknown) Pulse Oximetry 98 (units unknown) (unknown) (unknown) (no date) (unknown) (unknown) Pulse Rate 70 (units unknown) (unknown) (unknown) (no date) (unknown) (unknown) Pulse Rate 87 89 83 (units unknown) (unknown) (unknown) (no date) (unknown) (unknown) Pulse Rate 87 89 (units unknown) (unknown) (unknown) (no date) (unknown) (unknown) Pulse Rate 92 H 91 H (units unknown) (unknown) (unknown) (no date) (unknown) (unknown) RBC 2.55 L (units unknown) (unknown) (unknown) (no date) (unknown) (unknown) RBC (units unknown) (unknown) (unknown) (no date) (unknown) (unknown) RDW 15.9 H (units unknown) (unknown) (unknown) (no date) (unknown) (unknown) RDW (units unknown) (unknown) (unknown) (no date) (unknown) (unknown) Reason for consult: S/P Anemia, possible UTI (units unknown) (unknown) (unknown) (no date) (unknown) (unknown) Respiratory Rate 15 15 (units unknown) (unknown) (unknown) (no date) (unknown) (unknown) Respiratory Rate 18 18 18 (units unknown) (unknown) (unknown) (no date) (unknown) (unknown) Respiratory Rate 18 (units unknown) (unknown) (unknown) (no date) (unknown) (unknown) Respiratory Rate 19 18 (units unknown) (unknown) (unknown) (no date) (unknown) (unknown) SARS-CoV-2 (PCR) Negative (units unknown) (unknown) (unknown) (no date) (unknown) (unknown) SARS-CoV-2 (PCR) (units unknown) (unknown) (unknown) (no date) (unknown) (unknown) Seasonal allergies (units unknown) (unknown) (unknown) (no date) (unknown) (unknown) Signed By: (units unknown) (unknown) (unknown) (no date) (unknown) (unknown) Smoking Status: [place] rubin smoker (units unknown) (unknown) (unknown) (no date) (unknown) (unknown) Social History (units unknown) (unknown) (unknown) (no date) (unknown) (unknown) Sodium 131 L (units unknown) (unknown) (unknown) (no date) (unknown) (unknown) Sodium 134 L (units unknown) (unknown) (unknown) (no date) (unknown) (unknown) Sodium (units unknown) (unknown) (unknown) (no date) (unknown) (unknown) Surgical History (units unknown) (unknown) (unknown) (no date) (unknown) (unknown) Temperature 96.8 F L (units unknown) (unknown) (unknown) (no date) (unknown) (unknown) Temperature 97.1 F L 97.3 F L (units unknown) (unknown) (unknown) (no date) (unknown) (unknown) Temperature 97.3 F L 96.9 F L 97.7 F (units unknown) (unknown) (unknown) (no date) (unknown) (unknown) Temperature (units unknown) (unknown) (unknown) (no date) (unknown) (unknown) Time Patient Seen: 21:00 (units unknown) (unknown) (unknown) (no date) (unknown) (unknown) Tobacco + Substance Use (units unknown) (unknown) (unknown) (no date) (unknown) (unknown) Total Bilirubin 0.3 (units unknown) (unknown) (unknown) (no date) (unknown) (unknown) Total Bilirubin 0.8 (units unknown) (unknown) (unknown) (no date) (unknown) (unknown) Total Bilirubin (units unknown) (unknown) (unknown) (no date) (unknown) (unknown) Total Protein 5.4 L (units unknown) (unknown) (unknown) (no date) (unknown) (unknown) Total Protein 6.1 L (units unknown) (unknown) (unknown) (no date) (unknown) (unknown) Total Protein (units unknown) (unknown) (unknown) (no date) (unknown) (unknown) Vital Signs (units unknown) (unknown) (unknown) (no date) (unknown) (unknown) WBC 6.9 (units unknown) (unknown) (unknown) (no date) (unknown) (unknown) WBC (units unknown) (unknown) (unknown) (no date) (unknown) (unknown) [Embedded Image Not Available] (units unknown) (unknown) (unknown) (no date) (unknown) (unknown) acetaminophen 325 mg tablet 650 mg PO Q6H PRN fever or pain 09/15/22 10/21/22 Rx (units unknown) (unknown) (unknown) (no date) (unknown) (unknown) alcohol intake: current (units unknown) (unknown) (unknown) (no date) (unknown) (unknown) allergies (units unknown) (unknown) (unknown) (no date) (unknown) (unknown) and falls asleep easily is in no distress or pain at this time. Vital signs are (units unknown) (unknown) (unknown) (no date) (unknown) (unknown) aspirin 81 mg tablet,delayed 81 mg PO BID 6 weeks #84 tabs 09/15/22 10/21/22 Rx (units unknown) (unknown) (unknown) (no date) (unknown) (unknown) aspirin-acetaminophe n- caffeine 250 1 - 2 tab PO BID 08/13/22 10/21/22 History (units unknown) (unknown) (unknown) (no date) (unknown) (unknown) atorvastatin 20 mg tablet 20 mg PO BEDTIME 08/13/22 10/21/22 History (units unknown) (unknown) (unknown) (no date) (unknown) (unknown) bicarbonate 1.1 gram capsule (units unknown) (unknown) (unknown) (no date) (unknown) (unknown) caps (units unknown) (unknown) (unknown) (no date) (unknown) (unknown) cetirizine 10 mg tablet (Zyrtec) 10 mg PO DAILY PRN Seasonal 08/13/22 10/21/22 (units unknown) (unknown) (unknown) (no date) (unknown) (unknown) completing 1 unit of blood, Repeat H+H pending. (units unknown) (unknown) (unknown) (no date) (unknown) (unknown) diverticulitis, GERD , HDL, osteoarthritis, who was hospitalized and taken to the (units unknown) (unknown) (unknown) (no date) (unknown) (unknown) docusate sodium 100 mg capsule 100 mg PO BID PRN constipation #30 09/15/22 (units unknown) (unknown) (unknown) (no date) (unknown) (unknown) escitalopram oxalate 20 mg tablet 20 mg PO DAILY 08/13/22 10/21/22 History (units unknown) (unknown) (unknown) (no date) (unknown) (unknown) fracture. Patient david ridley returned to the ED on 10/20/2022 from [facility] for (units unknown) (unknown) (unknown) (no date) (unknown) (unknown) hematoma/seroma of t he left hip and was taken to the OR earlier today by (units unknown) (unknown) (unknown) (no date) (unknown) (unknown) her hemoglobin/hematocrit 7.4/21-she was then given 1 unit of blood transfusion. (units unknown) (unknown) (unknown) (no date) (unknown) (unknown) household members: spouse (units unknown) (unknown) (unknown) (no date) (unknown) (unknown) hydroxyzine pamoate 25 mg capsule 25 mg PO TID-QID PRN itching #60 09/30/22 (units unknown) (unknown) (unknown) (no date) (unknown) (unknown) mg-250 mg-65 mg tabl et (Excedrin (units unknown) (unknown) (unknown) (no date) (unknown) (unknown) omeprazole 20 mg-sodium 1 cap PO DAILY PRN GI Upset 08/13/22 10/21/22 History (units unknown) (unknown) (unknown) (no date) (unknown) (unknown) oxycodone 5 mg table t 5 mg PO Q4-6H PRN Pain, Moderate 10/06/22 Rx (units unknown) (unknown) (unknown) (no date) (unknown) (unknown) regarding the patient's anemia and possible UTI for management. (units unknown) (unknown) (unknown) (no date) (unknown) (unknown) release (units unknown) (unknown) (unknown) (no date) (unknown) (unknown) solifenacin 10 mg tablet (Vesicare) 10 mg PO DAILY 08/13/22 10/21/22 History (units unknown) (unknown) (unknown) (no date) (unknown) (unknown) stable temp 96.8?, B P 134/74, 70, 18, 98% on 3 L nasal cannula. Patient is just (units unknown) (unknown) (unknown) (no date) (unknown) (unknown) that the patient had possible UTI, also status post op the patient had a dip in (units unknown) (unknown) Result panel 1403 (unknown) (no date) (unknown) (unknown) (no value) (units unknown) (unknown) (unknown) (no date) (unknown) (unknown) #90 tabs (units unknown) (unknown) (unknown) (no date) (unknown) (unknown) (4-6) #60 tabs (units unknown) (unknown) (unknown) (no date) (unknown) (unknown) (Vistaril) caps (units unknown) (unknown) (unknown) (no date) (unknown) (unknown) (Zegerid) (units unknown) (unknown) (unknown) (no date) (unknown) (unknown) (past 8 hours): (units unknown) (unknown) (unknown) (no date) (unknown) (unknown) * (units unknown) (unknown) (unknown) (no date) (unknown) (unknown) 00:23 00:23 00:23 (units unknown) (unknown) (unknown) (no date) (unknown) (unknown) 01:04 05:00 15:25 (units unknown) (unknown) (unknown) (no date) (unknown) (unknown) 10/21/22 10/21/22 10/21/22 (units unknown) (unknown) (unknown) (no date) (unknown) (unknown) 10/21/22 15:25 (units unknown) (unknown) (unknown) (no date) (unknown) (unknown) 10/21/22 17:00 (units unknown) (unknown) (unknown) (no date) (unknown) (unknown) 10/21/22 Rx (units unknown) (unknown) (unknown) (no date) (unknown) (unknown) 10/21/22 (units unknown) (unknown) (unknown) (no date) (unknown) (unknown) 15:33 10/21/22 (units unknown) (unknown) (unknown) (no date) (unknown) (unknown) 15:38 10/21/22 (units unknown) (unknown) (unknown) (no date) (unknown) (unknown) 16:00 10/21/22 (units unknown) (unknown) (unknown) (no date) (unknown) (unknown) 16:30 (units unknown) (unknown) (unknown) (no date) (unknown) (unknown) 17:00 10/21/22 (units unknown) (unknown) (unknown) (no date) (unknown) (unknown) 17:00 (units unknown) (unknown) (unknown) (no date) (unknown) (unknown) 17:19 (units unknown) (unknown) (unknown) (no date) (unknown) (unknown) 17:29 10/21/22 (units unknown) (unknown) (unknown) (no date) (unknown) (unknown) 18:00 10/21/22 (units unknown) (unknown) (unknown) (no date) (unknown) (unknown) 19:35 (units unknown) (unknown) (unknown) (no date) (unknown) (unknown) 23:15 (units unknown) (unknown) (unknown) (no date) (unknown) (unknown) 3151 (units unknown) (unknown) (unknown) (no date) (unknown) (unknown) ALT 19 (units unknown) (unknown) (unknown) (no date) (unknown) (unknown) ALT 21 (units unknown) (unknown) (unknown) (no date) (unknown) (unknown) ALT (units unknown) (unknown) (unknown) (no date) (unknown) (unknown) AST 23 (units unknown) (unknown) (unknown) (no date) (unknown) (unknown) AST 28 (units unknown) (unknown) (unknown) (no date) (unknown) (unknown) AST (units unknown) (unknown) (unknown) (no date) (unknown) (unknown) Abdomen: Soft nontender, negative for organomegaly, or masses. Bowel sounds (units unknown) (unknown) (unknown) (no date) (unknown) (unknown) Age/Sex: 72 / F (units unknown) (unknown) (unknown) (no date) (unknown) (unknown) Albumin 2.8 L (units unknown) (unknown) (unknown) (no date) (unknown) (unknown) Albumin 3.0 L (units unknown) (unknown) (unknown) (no date) (unknown) (unknown) Albumin (units unknown) (unknown) (unknown) (no date) (unknown) (unknown) Albumin/Globulin Rat io 1.0 (units unknown) (unknown) (unknown) (no date) (unknown) (unknown) Albumin/Globulin Rat io 1.1 (units unknown) (unknown) (unknown) (no date) (unknown) (unknown) Albumin/Globulin Ratio (units unknown) (unknown) (unknown) (no date) (unknown) (unknown) Alkaline Phosphatase 86 (units unknown) (unknown) (unknown) (no date) (unknown) (unknown) Alkaline Phosphatase 93 (units unknown) (unknown) (unknown) (no date) (unknown) (unknown) Alkaline Phosphatase (units unknown) (unknown) (unknown) (no date) (unknown) (unknown) All 12 point systems reviewed with the patient and are negative except otherwise (units unknown) (unknown) (unknown) (no date) (unknown) (unknown) Allergies (units unknown) (unknown) (unknown) (no date) (unknown) (unknown) Allergy/AdvReac Type Severity Reaction Status Date / Time (units unknown) (unknown) (unknown) (no date) (unknown) (unknown) Antibody Screen Negative (units unknown) (unknown) (unknown) (no date) (unknown) (unknown) Antibody Screen (units unknown) (unknown) (unknown) (no date) (unknown) (unknown) Assessment + Plan narrative: (units unknown) (unknown) (unknown) (no date) (unknown) (unknown) Assessment + Plan (units unknown) (unknown) (unknown) (no date) (unknown) (unknown) BUN 17 (units unknown) (unknown) (unknown) (no date) (unknown) (unknown) BUN 19 H (units unknown) (unknown) (unknown) (no date) (unknown) (unknown) BUN (units unknown) (unknown) (unknown) (no date) (unknown) (unknown) BUN/Creatinine Ratio 19.0 (units unknown) (unknown) (unknown) (no date) (unknown) (unknown) BUN/Creatinine Ratio 20.5 (units unknown) (unknown) (unknown) (no date) (unknown) (unknown) BUN/Creatinine Ratio (units unknown) (unknown) (unknown) (no date) (unknown) (unknown) Baso # (Auto) 0 (units unknown) (unknown) (unknown) (no date) (unknown) (unknown) Baso # (Auto) (units unknown) (unknown) (unknown) (no date) (unknown) (unknown) Baso % (Auto) 0.4 (units unknown) (unknown) (unknown) (no date) (unknown) (unknown) Baso % (Auto) (units unknown) (unknown) (unknown) (no date) (unknown) (unknown) Blood Pressure 121/6 1 130/57 L (units unknown) (unknown) (unknown) (no date) (unknown) (unknown) Blood Pressure 134/74 (units unknown) (unknown) (unknown) (no date) (unknown) (unknown) Blood Pressure 134/7 7 111/63 120/47 L (units unknown) (unknown) (unknown) (no date) (unknown) (unknown) Blood Pressure 147/7 0 H 160/70 H (units unknown) (unknown) (unknown) (no date) (unknown) (unknown) Blood Type O Positive (units unknown) (unknown) (unknown) (no date) (unknown) (unknown) Blood Type (units unknown) (unknown) (unknown) (no date) (unknown) (unknown) Blood loss anemia status post I+D hematoma/seroma of left hip, acute, present on (units unknown) (unknown) (unknown) (no date) (unknown) (unknown) Calcium 8.0 L (units unknown) (unknown) (unknown) (no date) (unknown) (unknown) Calcium 8.3 L (units unknown) (unknown) (unknown) (no date) (unknown) (unknown) Calcium (units unknown) (unknown) (unknown) (no date) (unknown) (unknown) Carbon Dioxide 27 (units unknown) (unknown) (unknown) (no date) (unknown) (unknown) Carbon Dioxide 28 (units unknown) (unknown) (unknown) (no date) (unknown) (unknown) Carbon Dioxide (units unknown) (unknown) (unknown) (no date) (unknown) (unknown) Cardio: regular rate and rhythm without murmur, rubs, or gallops, no carotid (units unknown) (unknown) (unknown) (no date) (unknown) (unknown) Chest: Normal AP diameter and contour without kyphoscoliosis, no nasal flaring, (units unknown) (unknown) (unknown) (no date) (unknown) (unknown) Chief complaint: Gre en Drainage/Bleeding (units unknown) (unknown) (unknown) (no date) (unknown) (unknown) Chloride 98 (units unknown) (unknown) (unknown) (no date) (unknown) (unknown) Chloride (units unknown) (unknown) (unknown) (no date) (unknown) (unknown) [facility] for I+D of hematoma/seroma of left hip status post ORIF greater (units unknown) (unknown) (unknown) (no date) (unknown) (unknown) [place] for I+D. Wh en a catheter was placed during surgery there was concerns (units unknown) (unknown) (unknown) (no date) (unknown) (unknown) Consult Note (units unknown) (unknown) (unknown) (no date) (unknown) (unknown) Consult details (units unknown) (unknown) (unknown) (no date) (unknown) (unknown) Creatinine 0.83 (units unknown) (unknown) (unknown) (no date) (unknown) (unknown) Creatinine 1.00 (units unknown) (unknown) (unknown) (no date) (unknown) (unknown) Creatinine (units unknown) (unknown) (unknown) (no date) (unknown) (unknown) Crossmatch See Detail (units unknown) (unknown) (unknown) (no date) (unknown) (unknown) Crossmatch (units unknown) (unknown) (unknown) (no date) (unknown) (unknown) : 1950 Acct:[id number] (units unknown) (unknown) (unknown) (no date) (unknown) (unknown) Date Patient Seen: 10/21/22 (units unknown) (unknown) (unknown) (no date) (unknown) (unknown) Date of Service: 10/21/22 (units unknown) (unknown) (unknown) (no date) (unknown) (unknown) Depression (units unknown) (unknown) (unknown) (no date) (unknown) (unknown) Diverticulitis (units unknown) (unknown) (unknown) (no date) (unknown) (unknown) Dr. Paulino graciously requested that the hospitalist Service consult (units unknown) (unknown) (unknown) (no date) (unknown) (unknown) Eos # (Auto) 400 (units unknown) (unknown) (unknown) (no date) (unknown) (unknown) Eos # (Auto) (units unknown) (unknown) (unknown) (no date) (unknown) (unknown) Eos % (Auto) 5.9 H (units unknown) (unknown) (unknown) (no date) (unknown) (unknown) Eos % (Auto) (units unknown) (unknown) (unknown) (no date) (unknown) (unknown) Estimated GFR > 60 (units unknown) (unknown) (unknown) (no date) (unknown) (unknown) Estimated GFR 60 (units unknown) (unknown) (unknown) (no date) (unknown) (unknown) Estimated GFR (units unknown) (unknown) (unknown) (no date) (unknown) (unknown) Exam Narrative: (units unknown) (unknown) (unknown) (no date) (unknown) (unknown) Exam (units unknown) (unknown) (unknown) (no date) (unknown) (unknown) Extra Strength) (units unknown) (unknown) (unknown) (no date) (unknown) (unknown) Family History (units unknown) (unknown) (unknown) (no date) (unknown) (unknown) Father No problems noted. (units unknown) (unknown) (unknown) (no date) (unknown) (unknown) GERD (gastroesophage al reflux disease) (units unknown) (unknown) (unknown) (no date) (unknown) (unknown) General: Patient is a well-developed, well-nourished elderly female, resting (units unknown) (unknown) (unknown) (no date) (unknown) (unknown) Globulin 2.6 (units unknown) (unknown) (unknown) (no date) (unknown) (unknown) Globulin 3.1 (units unknown) (unknown) (unknown) (no date) (unknown) (unknown) Globulin (units unknown) (unknown) (unknown) (no date) (unknown) (unknown) Glucose 111 H (units unknown) (unknown) (unknown) (no date) (unknown) (unknown) Glucose 127 H (units unknown) (unknown) (unknown) (no date) (unknown) (unknown) Glucose (units unknown) (unknown) (unknown) (no date) (unknown) (unknown) HEENT: Normocephalic , atraumatic, extraocular muscles intact, oral pharynx is (units unknown) (unknown) (unknown) (no date) (unknown) (unknown) HLD (hyperlipidemia) (units unknown) (unknown) (unknown) (no date) (unknown) (unknown) Hct 21.1 L (units unknown) (unknown) (unknown) (no date) (unknown) (unknown) Hct 24.5 L (units unknown) (unknown) (unknown) (no date) (unknown) (unknown) Hct (units unknown) (unknown) (unknown) (no date) (unknown) (unknown) Hearing impaired (units unknown) (unknown) (unknown) (no date) (unknown) (unknown) Hgb 7.4 L (units unknown) (unknown) (unknown) (no date) (unknown) (unknown) Hgb 8.4 L (units unknown) (unknown) (unknown) (no date) (unknown) (unknown) Hgb (units unknown) (unknown) (unknown) (no date) (unknown) (unknown) History of Present Illness (units unknown) (unknown) (unknown) (no date) (unknown) (unknown) History of bladder surgery (units unknown) (unknown) (unknown) (no date) (unknown) (unknown) History of total lef t knee replacement (units unknown) (unknown) (unknown) (no date) (unknown) (unknown) History of total rig ht knee replacement (units unknown) (unknown) (unknown) (no date) (unknown) (unknown) History (units unknown) (unknown) (unknown) (no date) (unknown) (unknown) Home Medications and Allergies (units unknown) (unknown) (unknown) (no date) (unknown) (unknown) Home Medications (units unknown) (unknown) (unknown) (no date) (unknown) (unknown) Hx of left breast biopsy (units unknown) (unknown) (unknown) (no date) (unknown) (unknown) Hx of right breast biopsy (units unknown) (unknown) (unknown) (no date) (unknown) (unknown) Hx of tonsillectomy (units unknown) (unknown) (unknown) (no date) (unknown) (unknown) [address] [address] (units unknown) (unknown) (unknown) (no date) (unknown) (unknown) Selene Garcia is a 72-year-old female with a history of depression, (units unknown) (unknown) (unknown) (no date) (unknown) (unknown) Laboratory Results - last 24 hr (units unknown) (unknown) (unknown) (no date) (unknown) (unknown) Labs (units unknown) (unknown) (unknown) (no date) (unknown) (unknown) Labs: (units unknown) (unknown) (unknown) (no date) (unknown) (unknown) Lactate 0.8 (units unknown) (unknown) (unknown) (no date) (unknown) (unknown) Lactate (units unknown) (unknown) (unknown) (no date) (unknown) (unknown) Lungs: Auscultation of all lung morrow are clear without adventitious sounds, (units unknown) (unknown) (unknown) (no date) (unknown) (unknown) Lymph # (Auto) 1000 L (units unknown) (unknown) (unknown) (no date) (unknown) (unknown) Lymph # (Auto) (units unknown) (unknown) (unknown) (no date) (unknown) (unknown) Lymph % (Auto) 14.5 L (units unknown) (unknown) (unknown) (no date) (unknown) (unknown) Lymph % (Auto) (units unknown) (unknown) (unknown) (no date) (unknown) (unknown) MCH 28.8 (units unknown) (unknown) (unknown) (no date) (unknown) (unknown) MCH (units unknown) (unknown) (unknown) (no date) (unknown) (unknown) MCHC 34.9 (units unknown) (unknown) (unknown) (no date) (unknown) (unknown) MCHC (units unknown) (unknown) (unknown) (no date) (unknown) (unknown) MCV 82.6 (units unknown) (unknown) (unknown) (no date) (unknown) (unknown) MCV (units unknown) (unknown) (unknown) (no date) (unknown) (unknown) Medical History (units unknown) (unknown) (unknown) (no date) (unknown) (unknown) Medication Instructions Recorded Confirmed Type (units unknown) (unknown) (unknown) (no date) (unknown) (unknown) Meds (units unknown) (unknown) (unknown) (no date) (unknown) (unknown) [place] # (Auto) 700 (units unknown) (unknown) (unknown) (no date) (unknown) (unknown) [place] # (Auto) (units unknown) (unknown) (unknown) (no date) (unknown) (unknown) [place] % (Auto) 10.7 (units unknown) (unknown) (unknown) (no date) (unknown) (unknown) [place] % (Auto) (units unknown) (unknown) (unknown) (no date) (unknown) (unknown) Mother No problems noted. (units unknown) (unknown) (unknown) (no date) (unknown) (unknown) Musculoskeletal: [place] in in place Left hip, dressing in place w/out signs of (units unknown) (unknown) (unknown) (no date) (unknown) (unknown) Narrative (units unknown) (unknown) (unknown) (no date) (unknown) (unknown) Narrative: (units unknown) (unknown) (unknown) (no date) (unknown) (unknown) Negative for JVD (units unknown) (unknown) (unknown) (no date) (unknown) (unknown) Neuro: Alert and orientated x3, sensation to touch intact, no gross deficits (units unknown) (unknown) (unknown) (no date) (unknown) (unknown) Neut # (Auto) 4700 (units unknown) (unknown) (unknown) (no date) (unknown) (unknown) Neut # (Auto) (units unknown) (unknown) (unknown) (no date) (unknown) (unknown) Neut % (Auto) 68.5 (units unknown) (unknown) (unknown) (no date) (unknown) (unknown) Neut % (Auto) (units unknown) (unknown) (unknown) (no date) (unknown) (unknown) No Known Drug Allergies Allergy Verified 10/02/22 18:28 (units unknown) (unknown) (unknown) (no date) (unknown) (unknown) OR for through 10/02/[address] River for a ORIF greater trochanteric (units unknown) (unknown) (unknown) (no date) (unknown) (unknown) Objective (units unknown) (unknown) (unknown) (no date) (unknown) (unknown) Osteoarthritis (units unknown) (unknown) (unknown) (no date) (unknown) (unknown) Oxygen Delivery Meth od Nasal Cannula Nasal Cannula Nasal Cannula (units unknown) (unknown) (unknown) (no date) (unknown) (unknown) Oxygen Delivery Meth od Nasal Cannula (units unknown) (unknown) (unknown) (no date) (unknown) (unknown) Oxygen Delivery Method (units unknown) (unknown) (unknown) (no date) (unknown) (unknown) Oxygen Flow Rate 0 0 3 (units unknown) (unknown) (unknown) (no date) (unknown) (unknown) Oxygen Flow Rate 0 2 0 (units unknown) (unknown) (unknown) (no date) (unknown) (unknown) Oxygen Flow Rate 3 3 (units unknown) (unknown) (unknown) (no date) (unknown) (unknown) Oxygen Flow Rate 3 (units unknown) (unknown) (unknown) (no date) (unknown) (unknown) PFSH (units unknown) (unknown) (unknown) (no date) (unknown) (unknown) Patient is resting quite comfortably in bed, still quite sedated from anesthesia (units unknown) (unknown) (unknown) (no date) (unknown) (unknown) Patient: Charisma Garc[address] MR#: [id number] (units unknown) (unknown) (unknown) (no date) (unknown) (unknown) Plt Count 470 H (units unknown) (unknown) (unknown) (no date) (unknown) (unknown) Plt Count (units unknown) (unknown) (unknown) (no date) (unknown) (unknown) Potassium 3.5 (units unknown) (unknown) (unknown) (no date) (unknown) (unknown) Potassium 3.7 (units unknown) (unknown) (unknown) (no date) (unknown) (unknown) Potassium (units unknown) (unknown) (unknown) (no date) (unknown) (unknown) Procalcitonin 0.47 (units unknown) (unknown) (unknown) (no date) (unknown) (unknown) Procalcitonin (units unknown) (unknown) (unknown) (no date) (unknown) (unknown) Provider: Shelly Arora [employer] (units unknown) (unknown) (unknown) (no date) (unknown) (unknown) Psych: Patient has a well-kept appearance, appropriate affect, mental status (units unknown) (unknown) (unknown) (no date) (unknown) (unknown) Pulse Oximetry 96 94 97 (units unknown) (unknown) (unknown) (no date) (unknown) (unknown) Pulse Oximetry 96 96 97 (units unknown) (unknown) (unknown) (no date) (unknown) (unknown) Pulse Oximetry 97 96 (units unknown) (unknown) (unknown) (no date) (unknown) (unknown) Pulse Oximetry 98 (units unknown) (unknown) (unknown) (no date) (unknown) (unknown) Pulse Rate 70 (units unknown) (unknown) (unknown) (no date) (unknown) (unknown) Pulse Rate 87 89 83 (units unknown) (unknown) (unknown) (no date) (unknown) (unknown) Pulse Rate 87 89 (units unknown) (unknown) (unknown) (no date) (unknown) (unknown) Pulse Rate 92 H 91 H (units unknown) (unknown) (unknown) (no date) (unknown) (unknown) RBC 2.55 L (units unknown) (unknown) (unknown) (no date) (unknown) (unknown) RBC (units unknown) (unknown) (unknown) (no date) (unknown) (unknown) RDW 15.9 H (units unknown) (unknown) (unknown) (no date) (unknown) (unknown) RDW (units unknown) (unknown) (unknown) (no date) (unknown) (unknown) Reason for consult: S/P Anemia, possible UTI (units unknown) (unknown) (unknown) (no date) (unknown) (unknown) Respiratory Rate 15 15 (units unknown) (unknown) (unknown) (no date) (unknown) (unknown) Respiratory Rate 18 18 18 (units unknown) (unknown) (unknown) (no date) (unknown) (unknown) Respiratory Rate 18 (units unknown) (unknown) (unknown) (no date) (unknown) (unknown) Respiratory Rate 19 18 (units unknown) (unknown) (unknown) (no date) (unknown) (unknown) Review of Systems (units unknown) (unknown) (unknown) (no date) (unknown) (unknown) SARS-CoV-2 (PCR) Negative (units unknown) (unknown) (unknown) (no date) (unknown) (unknown) SARS-CoV-2 (PCR) (units unknown) (unknown) (unknown) (no date) (unknown) (unknown) Seasonal allergies (units unknown) (unknown) (unknown) (no date) (unknown) (unknown) Signed By: (units unknown) (unknown) (unknown) (no date) (unknown) (unknown) Skin: Warm dry and intact without rashes, ulcerations or petechiae. (units unknown) (unknown) (unknown) (no date) (unknown) (unknown) Smoking Status: Neve r smoker (units unknown) (unknown) (unknown) (no date) (unknown) (unknown) Social History (units unknown) (unknown) (unknown) (no date) (unknown) (unknown) Sodium 131 L (units unknown) (unknown) (unknown) (no date) (unknown) (unknown) Sodium 134 L (units unknown) (unknown) (unknown) (no date) (unknown) (unknown) Sodium (units unknown) (unknown) (unknown) (no date) (unknown) (unknown) Surgical History (units unknown) (unknown) (unknown) (no date) (unknown) (unknown) Temperature 96.8 F L (units unknown) (unknown) (unknown) (no date) (unknown) (unknown) Temperature 97.1 F L 97.3 F L (units unknown) (unknown) (unknown) (no date) (unknown) (unknown) Temperature 97.3 F L 96.9 F L 97.7 F (units unknown) (unknown) (unknown) (no date) (unknown) (unknown) Temperature (units unknown) (unknown) (unknown) (no date) (unknown) (unknown) Time Patient Seen: 21:00 (units unknown) (unknown) (unknown) (no date) (unknown) (unknown) Tobacco + Substance Use (units unknown) (unknown) (unknown) (no date) (unknown) (unknown) Total Bilirubin 0.3 (units unknown) (unknown) (unknown) (no date) (unknown) (unknown) Total Bilirubin 0.8 (units unknown) (unknown) (unknown) (no date) (unknown) (unknown) Total Bilirubin (units unknown) (unknown) (unknown) (no date) (unknown) (unknown) Total Protein 5.4 L (units unknown) (unknown) (unknown) (no date) (unknown) (unknown) Total Protein 6.1 L (units unknown) (unknown) (unknown) (no date) (unknown) (unknown) Total Protein (units unknown) (unknown) (unknown) (no date) (unknown) (unknown) Vital Signs (units unknown) (unknown) (unknown) (no date) (unknown) (unknown) WBC 6.9 (units unknown) (unknown) (unknown) (no date) (unknown) (unknown) WBC (units unknown) (unknown) (unknown) (no date) (unknown) (unknown) [Embedded Image Not Available] (units unknown) (unknown) (unknown) (no date) (unknown) (unknown) acetaminophen 325 mg tablet 650 mg PO Q6H PRN fever or pain 09/15/22 10/21/22 Rx (units unknown) (unknown) (unknown) (no date) (unknown) (unknown) admission (units unknown) (unknown) (unknown) (no date) (unknown) (unknown) alcohol intake: current (units unknown) (unknown) (unknown) (no date) (unknown) (unknown) allergies (units unknown) (unknown) (unknown) (no date) (unknown) (unknown) and falls asleep easily is in no distress or pain at this time. Vital signs are (units unknown) (unknown) (unknown) (no date) (unknown) (unknown) are hypoactive prese nt in all 4 quadrants without guarding or rebound, no CVA (units unknown) (unknown) (unknown) (no date) (unknown) (unknown) aspirin 81 mg tablet,delayed 81 mg PO BID 6 weeks #84 tabs 09/15/22 10/21/22 Rx (units unknown) (unknown) (unknown) (no date) (unknown) (unknown) aspirin-acetaminophe n- caffeine 250 1 - 2 tab PO BID 08/13/22 10/21/22 History (units unknown) (unknown) (unknown) (no date) (unknown) (unknown) atorvastatin 20 mg tablet 20 mg PO BEDTIME 08/13/22 10/21/22 History (units unknown) (unknown) (unknown) (no date) (unknown) (unknown) attitude thought context and judgment are appropriate for age. (units unknown) (unknown) (unknown) (no date) (unknown) (unknown) bicarbonate 1.1 gram capsule (units unknown) (unknown) (unknown) (no date) (unknown) (unknown) bruit, no cardiac pulsations present. (units unknown) (unknown) (unknown) (no date) (unknown) (unknown) caps (units unknown) (unknown) (unknown) (no date) (unknown) (unknown) cetirizine 10 mg tablet (Zyrtec) 10 mg PO DAILY PRN Seasonal 08/13/22 10/21/22 (units unknown) (unknown) (unknown) (no date) (unknown) (unknown) clear and mucous membranes are moist. Neck is supple and symmetric, trachea is (units unknown) (unknown) (unknown) (no date) (unknown) (unknown) comfortably, in no distress at this time. (units unknown) (unknown) (unknown) (no date) (unknown) (unknown) completing 1 unit of blood, Repeat H+H pending. (units unknown) (unknown) (unknown) (no date) (unknown) (unknown) diverticulitis, GERD , HDL, osteoarthritis, who was hospitalized and taken to the (units unknown) (unknown) (unknown) (no date) (unknown) (unknown) diverticulitis, GERD , HDL, osteoarthritis, who was taken to the OR today by (units unknown) (unknown) (unknown) (no date) (unknown) (unknown) documented. (units unknown) (unknown) (unknown) (no date) (unknown) (unknown) docusate sodium 100 mg capsule 100 mg PO BID PRN constipation #30 09/15/22 (units unknown) (unknown) (unknown) (no date) (unknown) (unknown) escitalopram oxalate 20 mg tablet 20 mg PO DAILY 08/13/22 10/21/22 History (units unknown) (unknown) (unknown) (no date) (unknown) (unknown) for management. (units unknown) (unknown) (unknown) (no date) (unknown) (unknown) fracture. Patient david ridley returned to the ED on 10/20/2022 [facility] for (units unknown) (unknown) (unknown) (no date) (unknown) (unknown) hematoma/seroma of t he left hip and was taken to the OR earlier today by (units unknown) (unknown) (unknown) (no date) (unknown) (unknown) her hemoglobin/hematocrit 7.4/21-she was then given 1 unit of blood transfusion. (units unknown) (unknown) (unknown) (no date) (unknown) (unknown) hospitalist Service consult regarding the patient's s/p anemia and possible UTI (units unknown) (unknown) (unknown) (no date) (unknown) (unknown) household members: spouse (units unknown) (unknown) (unknown) (no date) (unknown) (unknown) hydroxyzine pamoate 25 mg capsule 25 mg PO TID-QID PRN itching #60 09/30/22 (units unknown) (unknown) (unknown) (no date) (unknown) (unknown) infection, intact radial and pedal pulses are normal. (units unknown) (unknown) (unknown) (no date) (unknown) (unknown) mg-250 mg-65 mg tabl et (Excedrin (units unknown) (unknown) (unknown) (no date) (unknown) (unknown) midline, no adenopathy, no thyroid enlargement, nontender, no masses palpated. (units unknown) (unknown) (unknown) (no date) (unknown) (unknown) noted of cranial nerves. (units unknown) (unknown) (unknown) (no date) (unknown) (unknown) omeprazole 20 mg-sodium 1 cap PO DAILY PRN GI Upset 08/13/22 10/21/22 History (units unknown) (unknown) (unknown) (no date) (unknown) (unknown) oxycodone 5 mg table t 5 mg PO Q4-6H PRN Pain, Moderate 10/06/22 Rx (units unknown) (unknown) (unknown) (no date) (unknown) (unknown) regarding the patient's anemia and possible UTI for management. (units unknown) (unknown) (unknown) (no date) (unknown) (unknown) release (units unknown) (unknown) (unknown) (no date) (unknown) (unknown) retractions, or tachypneic labored breathing. (units unknown) (unknown) (unknown) (no date) (unknown) (unknown) solifenacin 10 mg tablet (Vesicare) 10 mg PO DAILY 08/13/22 10/21/22 History (units unknown) (unknown) (unknown) (no date) (unknown) (unknown) stable temp 96.8?, B P 134/74, 70, 18, 98% on 3 L nasal cannula. Patient is just (units unknown) (unknown) (unknown) (no date) (unknown) (unknown) tenderness. (units unknown) (unknown) (unknown) (no date) (unknown) (unknown) that the patient had possible UTI, also status post op the patient had a dip in (units unknown) (unknown) (unknown) (no date) (unknown) (unknown) trochanteric left fracture on 10/02. Dr. Paulino graciously requested that the (units unknown) (unknown) (unknown) (no date) (unknown) (unknown) wheezes, rhonchi, or rales. (units unknown) (unknown) Result panel [id number] (unknown) (no date) (unknown) (unknown) (no value) (units unknown) (unknown) (unknown) (no date) (unknown) (unknown) #90 tabs (units unknown) (unknown) (unknown) (no date) (unknown) (unknown) (4-6) #60 tabs (units unknown) (unknown) (unknown) (no date) (unknown) (unknown) (Vistaril) caps (units unknown) (unknown) (unknown) (no date) (unknown) (unknown) (Zegerid) (units unknown) (unknown) (unknown) (no date) (unknown) (unknown) (past 8 hours): (units unknown) (unknown) (unknown) (no date) (unknown) (unknown) * Monitor for bleeding (units unknown) (unknown) (unknown) (no date) (unknown) (unknown) * Repeat CBC in a.m. (units unknown) (unknown) (unknown) (no date) (unknown) (unknown) * S/P :H+H 7.4/21, 1 unit of blood received-repeat H+H 8.4/24.5 (units unknown) (unknown) (unknown) (no date) (unknown) (unknown) * Vital signs stable temp 96.8?, 134/74, 70, 18, 98% on 3 L (units unknown) (unknown) (unknown) (no date) (unknown) (unknown) 00:23 00:23 00:23 (units unknown) (unknown) (unknown) (no date) (unknown) (unknown) 01:04 05:00 15:25 (units unknown) (unknown) (unknown) (no date) (unknown) (unknown) 10/21/22 10/21/22 10/21/22 (units unknown) (unknown) (unknown) (no date) (unknown) (unknown) 10/21/22 15:25 (units unknown) (unknown) (unknown) (no date) (unknown) (unknown) 10/21/22 17:00 (units unknown) (unknown) (unknown) (no date) (unknown) (unknown) 10/21/22 Rx (units unknown) (unknown) (unknown) (no date) (unknown) (unknown) 10/21/22 (units unknown) (unknown) (unknown) (no date) (unknown) (unknown) 15:33 10/21/22 (units unknown) (unknown) (unknown) (no date) (unknown) (unknown) 15:38 10/21/22 (units unknown) (unknown) (unknown) (no date) (unknown) (unknown) 16:00 10/21/22 (units unknown) (unknown) (unknown) (no date) (unknown) (unknown) 16:30 (units unknown) (unknown) (unknown) (no date) (unknown) (unknown) 17:00 10/21/22 (units unknown) (unknown) (unknown) (no date) (unknown) (unknown) 17:00 (units unknown) (unknown) (unknown) (no date) (unknown) (unknown) 17:19 (units unknown) (unknown) (unknown) (no date) (unknown) (unknown) 17:29 10/21/22 (units unknown) (unknown) (unknown) (no date) (unknown) (unknown) 18:00 10/21/22 (units unknown) (unknown) (unknown) (no date) (unknown) (unknown) 19:35 (units unknown) (unknown) (unknown) (no date) (unknown) (unknown) 23:15 (units unknown) (unknown) (unknown) (no date) (unknown) (unknown) 3151 (units unknown) (unknown) (unknown) (no date) (unknown) (unknown) ALT 19 (units unknown) (unknown) (unknown) (no date) (unknown) (unknown) ALT 21 (units unknown) (unknown) (unknown) (no date) (unknown) (unknown) ALT (units unknown) (unknown) (unknown) (no date) (unknown) (unknown) AST 23 (units unknown) (unknown) (unknown) (no date) (unknown) (unknown) AST 28 (units unknown) (unknown) (unknown) (no date) (unknown) (unknown) AST (units unknown) (unknown) (unknown) (no date) (unknown) (unknown) Abdomen: Soft nontender, negative for organomegaly, or masses. Bowel sounds (units unknown) (unknown) (unknown) (no date) (unknown) (unknown) Age/Sex: 72 / F (units unknown) (unknown) (unknown) (no date) (unknown) (unknown) Albumin 2.8 L (units unknown) (unknown) (unknown) (no date) (unknown) (unknown) Albumin 3.0 L (units unknown) (unknown) (unknown) (no date) (unknown) (unknown) Albumin (units unknown) (unknown) (unknown) (no date) (unknown) (unknown) Albumin/Globulin Rat io 1.0 (units unknown) (unknown) (unknown) (no date) (unknown) (unknown) Albumin/Globulin Rat io 1.1 (units unknown) (unknown) (unknown) (no date) (unknown) (unknown) Albumin/Globulin Ratio (units unknown) (unknown) (unknown) (no date) (unknown) (unknown) Alkaline Phosphatase 86 (units unknown) (unknown) (unknown) (no date) (unknown) (unknown) Alkaline Phosphatase 93 (units unknown) (unknown) (unknown) (no date) (unknown) (unknown) Alkaline Phosphatase (units unknown) (unknown) (unknown) (no date) (unknown) (unknown) All 12 point systems reviewed with the patient and are negative except otherwise (units unknown) (unknown) (unknown) (no date) (unknown) (unknown) Allergies (units unknown) (unknown) (unknown) (no date) (unknown) (unknown) Allergy/AdvReac Type Severity Reaction Status Date / Time (units unknown) (unknown) (unknown) (no date) (unknown) (unknown) Antibody Screen Negative (units unknown) (unknown) (unknown) (no date) (unknown) (unknown) Antibody Screen (units unknown) (unknown) (unknown) (no date) (unknown) (unknown) Assessment + Plan narrative: (units unknown) (unknown) (unknown) (no date) (unknown) (unknown) Assessment + Plan (units unknown) (unknown) (unknown) (no date) (unknown) (unknown) BUN 17 (units unknown) (unknown) (unknown) (no date) (unknown) (unknown) BUN 19 H (units unknown) (unknown) (unknown) (no date) (unknown) (unknown) BUN (units unknown) (unknown) (unknown) (no date) (unknown) (unknown) BUN/Creatinine Ratio 19.0 (units unknown) (unknown) (unknown) (no date) (unknown) (unknown) BUN/Creatinine Ratio 20.5 (units unknown) (unknown) (unknown) (no date) (unknown) (unknown) BUN/Creatinine Ratio (units unknown) (unknown) (unknown) (no date) (unknown) (unknown) Baso # (Auto) 0 (units unknown) (unknown) (unknown) (no date) (unknown) (unknown) Baso # (Auto) (units unknown) (unknown) (unknown) (no date) (unknown) (unknown) Baso % (Auto) 0.4 (units unknown) (unknown) (unknown) (no date) (unknown) (unknown) Baso % (Auto) (units unknown) (unknown) (unknown) (no date) (unknown) (unknown) Blood Pressure 121/6 1 130/57 L (units unknown) (unknown) (unknown) (no date) (unknown) (unknown) Blood Pressure 134/74 (units unknown) (unknown) (unknown) (no date) (unknown) (unknown) Blood Pressure 134/7 7 111/63 120/47 L (units unknown) (unknown) (unknown) (no date) (unknown) (unknown) Blood Pressure 147/7 0 H 160/70 H (units unknown) (unknown) (unknown) (no date) (unknown) (unknown) Blood Type O Positive (units unknown) (unknown) (unknown) (no date) (unknown) (unknown) Blood Type (units unknown) (unknown) (unknown) (no date) (unknown) (unknown) Blood loss anemia status post I+D hematoma/seroma of left hip, acute, present on (units unknown) (unknown) (unknown) (no date) (unknown) (unknown) Calcium 8.0 L (units unknown) (unknown) (unknown) (no date) (unknown) (unknown) Calcium 8.3 L (units unknown) (unknown) (unknown) (no date) (unknown) (unknown) Calcium (units unknown) (unknown) (unknown) (no date) (unknown) (unknown) Carbon Dioxide 27 (units unknown) (unknown) (unknown) (no date) (unknown) (unknown) Carbon Dioxide 28 (units unknown) (unknown) (unknown) (no date) (unknown) (unknown) Carbon Dioxide (units unknown) (unknown) (unknown) (no date) (unknown) (unknown) Cardio: regular rate and rhythm without murmur, rubs, or gallops, no carotid (units unknown) (unknown) (unknown) (no date) (unknown) (unknown) Chest: Normal AP diameter and contour without kyphoscoliosis, no nasal flaring, (units unknown) (unknown) (unknown) (no date) (unknown) (unknown) Chief complaint: Gre en Drainage/Bleeding (units unknown) (unknown) (unknown) (no date) (unknown) (unknown) Chloride 98 (units unknown) (unknown) (unknown) (no date) (unknown) (unknown) Chloride (units unknown) (unknown) (unknown) (no date) (unknown) (unknown) [place] for I+D of hematoma/seroma of left hip status post ORIF greater (units unknown) (unknown) (unknown) (no date) (unknown) (unknown) [place] for I+D. Wh en a catheter was placed during surgery there was concerns (units unknown) (unknown) (unknown) (no date) (unknown) (unknown) Consult Note (units unknown) (unknown) (unknown) (no date) (unknown) (unknown) Consult details (units unknown) (unknown) (unknown) (no date) (unknown) (unknown) Creatinine 0.83 (units unknown) (unknown) (unknown) (no date) (unknown) (unknown) Creatinine 1.00 (units unknown) (unknown) (unknown) (no date) (unknown) (unknown) Creatinine (units unknown) (unknown) (unknown) (no date) (unknown) (unknown) Crossmatch See Detail (units unknown) (unknown) (unknown) (no date) (unknown) (unknown) Crossmatch (units unknown) (unknown) (unknown) (no date) (unknown) (unknown) : 1950 Acct:[id number] (units unknown) (unknown) (unknown) (no date) (unknown) (unknown) Date Patient Seen: 10/21/22 (units unknown) (unknown) (unknown) (no date) (unknown) (unknown) Date of Service: 10/21/22 (units unknown) (unknown) (unknown) (no date) (unknown) (unknown) Depression (units unknown) (unknown) (unknown) (no date) (unknown) (unknown) Diverticulitis (units unknown) (unknown) (unknown) (no date) (unknown) (unknown) Dr. Paulino graciously requested that the hospitalist Service consult (units unknown) (unknown) (unknown) (no date) (unknown) (unknown) Eos # (Auto) 400 (units unknown) (unknown) (unknown) (no date) (unknown) (unknown) Eos # (Auto) (units unknown) (unknown) (unknown) (no date) (unknown) (unknown) Eos % (Auto) 5.9 H (units unknown) (unknown) (unknown) (no date) (unknown) (unknown) Eos % (Auto) (units unknown) (unknown) (unknown) (no date) (unknown) (unknown) Estimated GFR > 60 (units unknown) (unknown) (unknown) (no date) (unknown) (unknown) Estimated GFR 60 (units unknown) (unknown) (unknown) (no date) (unknown) (unknown) Estimated GFR (units unknown) (unknown) (unknown) (no date) (unknown) (unknown) Exam Narrative: (units unknown) (unknown) (unknown) (no date) (unknown) (unknown) Exam (units unknown) (unknown) (unknown) (no date) (unknown) (unknown) Extra Strength) (units unknown) (unknown) (unknown) (no date) (unknown) (unknown) Family History (units unknown) (unknown) (unknown) (no date) (unknown) (unknown) Father No problems noted. (units unknown) (unknown) (unknown) (no date) (unknown) (unknown) GERD (gastroesophage al reflux disease) (units unknown) (unknown) (unknown) (no date) (unknown) (unknown) General: Patient is a well-developed, well-nourished elderly female, resting (units unknown) (unknown) (unknown) (no date) (unknown) (unknown) Globulin 2.6 (units unknown) (unknown) (unknown) (no date) (unknown) (unknown) Globulin 3.1 (units unknown) (unknown) (unknown) (no date) (unknown) (unknown) Globulin (units unknown) (unknown) (unknown) (no date) (unknown) (unknown) Glucose 111 H (units unknown) (unknown) (unknown) (no date) (unknown) (unknown) Glucose 127 H (units unknown) (unknown) (unknown) (no date) (unknown) (unknown) Glucose (units unknown) (unknown) (unknown) (no date) (unknown) (unknown) HEENT: Normocephalic , atraumatic, extraocular muscles intact, oral pharynx is (units unknown) (unknown) (unknown) (no date) (unknown) (unknown) HLD (hyperlipidemia) (units unknown) (unknown) (unknown) (no date) (unknown) (unknown) Hct 21.1 L (units unknown) (unknown) (unknown) (no date) (unknown) (unknown) Hct 24.5 L (units unknown) (unknown) (unknown) (no date) (unknown) (unknown) Hct (units unknown) (unknown) (unknown) (no date) (unknown) (unknown) Hearing impaired (units unknown) (unknown) (unknown) (no date) (unknown) (unknown) Hgb 7.4 L (units unknown) (unknown) (unknown) (no date) (unknown) (unknown) Hgb 8.4 L (units unknown) (unknown) (unknown) (no date) (unknown) (unknown) Hgb (units unknown) (unknown) (unknown) (no date) (unknown) (unknown) History of Present Illness (units unknown) (unknown) (unknown) (no date) (unknown) (unknown) History of bladder surgery (units unknown) (unknown) (unknown) (no date) (unknown) (unknown) History of total lef t knee replacement (units unknown) (unknown) (unknown) (no date) (unknown) (unknown) History of total rig ht knee replacement (units unknown) (unknown) (unknown) (no date) (unknown) (unknown) History (units unknown) (unknown) (unknown) (no date) (unknown) (unknown) Home Medications and Allergies (units unknown) (unknown) (unknown) (no date) (unknown) (unknown) Home Medications (units unknown) (unknown) (unknown) (no date) (unknown) (unknown) Hx of left breast biopsy (units unknown) (unknown) (unknown) (no date) (unknown) (unknown) Hx of right breast biopsy (units unknown) (unknown) (unknown) (no date) (unknown) (unknown) Hx of tonsillectomy (units unknown) (unknown) (unknown) (no date) (unknown) (unknown) [address] [address] (units unknown) (unknown) (unknown) (no date) (unknown) (unknown) Selene Garcia is a 72-year-old female with a history of depression, (units unknown) (unknown) (unknown) (no date) (unknown) (unknown) Laboratory Results - last 24 hr (units unknown) (unknown) (unknown) (no date) (unknown) (unknown) Labs (units unknown) (unknown) (unknown) (no date) (unknown) (unknown) Labs: (units unknown) (unknown) (unknown) (no date) (unknown) (unknown) Lactate 0.8 (units unknown) (unknown) (unknown) (no date) (unknown) (unknown) Lactate (units unknown) (unknown) (unknown) (no date) (unknown) (unknown) Lungs: Auscultation of all lung morrow are clear without adventitious sounds, (units unknown) (unknown) (unknown) (no date) (unknown) (unknown) Lymph # (Auto) 1000 L (units unknown) (unknown) (unknown) (no date) (unknown) (unknown) Lymph # (Auto) (units unknown) (unknown) (unknown) (no date) (unknown) (unknown) Lymph % (Auto) 14.5 L (units unknown) (unknown) (unknown) (no date) (unknown) (unknown) Lymph % (Auto) (units unknown) (unknown) (unknown) (no date) (unknown) (unknown) MCH 28.8 (units unknown) (unknown) (unknown) (no date) (unknown) (unknown) MCH (units unknown) (unknown) (unknown) (no date) (unknown) (unknown) MCHC 34.9 (units unknown) (unknown) (unknown) (no date) (unknown) (unknown) MCHC (units unknown) (unknown) (unknown) (no date) (unknown) (unknown) MCV 82.6 (units unknown) (unknown) (unknown) (no date) (unknown) (unknown) MCV (units unknown) (unknown) (unknown) (no date) (unknown) (unknown) Medical History (units unknown) (unknown) (unknown) (no date) (unknown) (unknown) Medication Instructions Recorded Confirmed Type (units unknown) (unknown) (unknown) (no date) (unknown) (unknown) Meds (units unknown) (unknown) (unknown) (no date) (unknown) (unknown) [place] # (Auto) 700 (units unknown) (unknown) (unknown) (no date) (unknown) (unknown) [place] # (Auto) (units unknown) (unknown) (unknown) (no date) (unknown) (unknown) [place] % (Auto) 10.7 (units unknown) (unknown) (unknown) (no date) (unknown) (unknown) [place] % (Auto) (units unknown) (unknown) (unknown) (no date) (unknown) (unknown) Mother No problems noted. (units unknown) (unknown) (unknown) (no date) (unknown) (unknown) Musculoskeletal: [place] in in place Left hip, dressing in place w/out signs of (units unknown) (unknown) (unknown) (no date) (unknown) (unknown) Narrative (units unknown) (unknown) (unknown) (no date) (unknown) (unknown) Narrative: (units unknown) (unknown) (unknown) (no date) (unknown) (unknown) Negative for JVD (units unknown) (unknown) (unknown) (no date) (unknown) (unknown) Neuro: Alert and orientated x3, sensation to touch intact, no gross deficits (units unknown) (unknown) (unknown) (no date) (unknown) (unknown) Neut # (Auto) 4700 (units unknown) (unknown) (unknown) (no date) (unknown) (unknown) Neut # (Auto) (units unknown) (unknown) (unknown) (no date) (unknown) (unknown) Neut % (Auto) 68.5 (units unknown) (unknown) (unknown) (no date) (unknown) (unknown) Neut % (Auto) (units unknown) (unknown) (unknown) (no date) (unknown) (unknown) No Known Drug Allergies Allergy Verified 10/02/22 18:28 (units unknown) (unknown) (unknown) (no date) (unknown) (unknown) OR for through 10/02/[address] River for a ORIF greater trochanteric (units unknown) (unknown) (unknown) (no date) (unknown) (unknown) Objective (units unknown) (unknown) (unknown) (no date) (unknown) (unknown) Osteoarthritis (units unknown) (unknown) (unknown) (no date) (unknown) (unknown) Oxygen Delivery Meth od Nasal Cannula Nasal Cannula Nasal Cannula (units unknown) (unknown) (unknown) (no date) (unknown) (unknown) Oxygen Delivery Meth od Nasal Cannula (units unknown) (unknown) (unknown) (no date) (unknown) (unknown) Oxygen Delivery Method (units unknown) (unknown) (unknown) (no date) (unknown) (unknown) Oxygen Flow Rate 0 0 3 (units unknown) (unknown) (unknown) (no date) (unknown) (unknown) Oxygen Flow Rate 0 2 0 (units unknown) (unknown) (unknown) (no date) (unknown) (unknown) Oxygen Flow Rate 3 3 (units unknown) (unknown) (unknown) (no date) (unknown) (unknown) Oxygen Flow Rate 3 (units unknown) (unknown) (unknown) (no date) (unknown) (unknown) PFSH (units unknown) (unknown) (unknown) (no date) (unknown) (unknown) Patient is resting quite comfortably in bed, still quite sedated from anesthesia (units unknown) (unknown) (unknown) (no date) (unknown) (unknown) Patient: Barbara Garcia MR#: [id number] (units unknown) (unknown) (unknown) (no date) (unknown) (unknown) Plt Count 470 H (units unknown) (unknown) (unknown) (no date) (unknown) (unknown) Plt Count (units unknown) (unknown) (unknown) (no date) (unknown) (unknown) Potassium 3.5 (units unknown) (unknown) (unknown) (no date) (unknown) (unknown) Potassium 3.7 (units unknown) (unknown) (unknown) (no date) (unknown) (unknown) Potassium (units unknown) (unknown) (unknown) (no date) (unknown) (unknown) Procalcitonin 0.47 (units unknown) (unknown) (unknown) (no date) (unknown) (unknown) Procalcitonin (units unknown) (unknown) (unknown) (no date) (unknown) (unknown) Provider: Shelly Arora- (units unknown) (unknown) (unknown) (no date) (unknown) (unknown) Psych: Patient has a well-kept appearance, appropriate affect, mental status (units unknown) (unknown) (unknown) (no date) (unknown) (unknown) Pulse Oximetry 96 94 97 (units unknown) (unknown) (unknown) (no date) (unknown) (unknown) Pulse Oximetry 96 96 97 (units unknown) (unknown) (unknown) (no date) (unknown) (unknown) Pulse Oximetry 97 96 (units unknown) (unknown) (unknown) (no date) (unknown) (unknown) Pulse Oximetry 98 (units unknown) (unknown) (unknown) (no date) (unknown) (unknown) Pulse Rate 70 (units unknown) (unknown) (unknown) (no date) (unknown) (unknown) Pulse Rate 87 89 83 (units unknown) (unknown) (unknown) (no date) (unknown) (unknown) Pulse Rate 87 89 (units unknown) (unknown) (unknown) (no date) (unknown) (unknown) Pulse Rate 92 H 91 H (units unknown) (unknown) (unknown) (no date) (unknown) (unknown) RBC 2.55 L (units unknown) (unknown) (unknown) (no date) (unknown) (unknown) RBC (units unknown) (unknown) (unknown) (no date) (unknown) (unknown) RDW 15.9 H (units unknown) (unknown) (unknown) (no date) (unknown) (unknown) RDW (units unknown) (unknown) (unknown) (no date) (unknown) (unknown) Reason for consult: S/P Anemia, possible UTI (units unknown) (unknown) (unknown) (no date) (unknown) (unknown) Respiratory Rate 15 15 (units unknown) (unknown) (unknown) (no date) (unknown) (unknown) Respiratory Rate 18 18 18 (units unknown) (unknown) (unknown) (no date) (unknown) (unknown) Respiratory Rate 18 (units unknown) (unknown) (unknown) (no date) (unknown) (unknown) Respiratory Rate 19 18 (units unknown) (unknown) (unknown) (no date) (unknown) (unknown) Review of Systems (units unknown) (unknown) (unknown) (no date) (unknown) (unknown) SARS-CoV-2 (PCR) Negative (units unknown) (unknown) (unknown) (no date) (unknown) (unknown) SARS-CoV-2 (PCR) (units unknown) (unknown) (unknown) (no date) (unknown) (unknown) Seasonal allergies (units unknown) (unknown) (unknown) (no date) (unknown) (unknown) Signed By: (units unknown) (unknown) (unknown) (no date) (unknown) (unknown) Skin: Warm dry and intact without rashes, ulcerations or petechiae. (units unknown) (unknown) (unknown) (no date) (unknown) (unknown) Smoking Status: Carmencita rubin smoker (units unknown) (unknown) (unknown) (no date) (unknown) (unknown) Social History (units unknown) (unknown) (unknown) (no date) (unknown) (unknown) Sodium 131 L (units unknown) (unknown) (unknown) (no date) (unknown) (unknown) Sodium 134 L (units unknown) (unknown) (unknown) (no date) (unknown) (unknown) Sodium (units unknown) (unknown) (unknown) (no date) (unknown) (unknown) Surgical History (units unknown) (unknown) (unknown) (no date) (unknown) (unknown) Temperature 96.8 F L (units unknown) (unknown) (unknown) (no date) (unknown) (unknown) Temperature 97.1 F L 97.3 F L (units unknown) (unknown) (unknown) (no date) (unknown) (unknown) Temperature 97.3 F L 96.9 F L 97.7 F (units unknown) (unknown) (unknown) (no date) (unknown) (unknown) Temperature (units unknown) (unknown) (unknown) (no date) (unknown) (unknown) Time Patient Seen: 21:00 (units unknown) (unknown) (unknown) (no date) (unknown) (unknown) Tobacco + Substance Use (units unknown) (unknown) (unknown) (no date) (unknown) (unknown) Total Bilirubin 0.3 (units unknown) (unknown) (unknown) (no date) (unknown) (unknown) Total Bilirubin 0.8 (units unknown) (unknown) (unknown) (no date) (unknown) (unknown) Total Bilirubin (units unknown) (unknown) (unknown) (no date) (unknown) (unknown) Total Protein 5.4 L (units unknown) (unknown) (unknown) (no date) (unknown) (unknown) Total Protein 6.1 L (units unknown) (unknown) (unknown) (no date) (unknown) (unknown) Total Protein (units unknown) (unknown) (unknown) (no date) (unknown) (unknown) Vital Signs (units unknown) (unknown) (unknown) (no date) (unknown) (unknown) WBC 6.9 (units unknown) (unknown) (unknown) (no date) (unknown) (unknown) WBC (units unknown) (unknown) (unknown) (no date) (unknown) (unknown) [Embedded Image Not Available] (units unknown) (unknown) (unknown) (no date) (unknown) (unknown) acetaminophen 325 mg tablet 650 mg PO Q6H PRN fever or pain 09/15/22 10/21/22 Rx (units unknown) (unknown) (unknown) (no date) (unknown) (unknown) admission (units unknown) (unknown) (unknown) (no date) (unknown) (unknown) alcohol intake: current (units unknown) (unknown) (unknown) (no date) (unknown) (unknown) allergies (units unknown) (unknown) (unknown) (no date) (unknown) (unknown) and falls asleep easily is in no distress or pain at this time. Vital signs are (units unknown) (unknown) (unknown) (no date) (unknown) (unknown) are hypoactive prese nt in all 4 quadrants without guarding or rebound, no CVA (units unknown) (unknown) (unknown) (no date) (unknown) (unknown) aspirin 81 mg tablet,delayed 81 mg PO BID 6 weeks #84 tabs 09/15/22 10/21/22 Rx (units unknown) (unknown) (unknown) (no date) (unknown) (unknown) aspirin-acetaminophe n- caffeine 250 1 - 2 tab PO BID 08/13/22 10/21/22 History (units unknown) (unknown) (unknown) (no date) (unknown) (unknown) atorvastatin 20 mg tablet 20 mg PO BEDTIME 08/13/22 10/21/22 History (units unknown) (unknown) (unknown) (no date) (unknown) (unknown) attitude thought context and judgment are appropriate for age. (units unknown) (unknown) (unknown) (no date) (unknown) (unknown) bicarbonate 1.1 gram capsule (units unknown) (unknown) (unknown) (no date) (unknown) (unknown) bruit, no cardiac pulsations present. (units unknown) (unknown) (unknown) (no date) (unknown) (unknown) caps (units unknown) (unknown) (unknown) (no date) (unknown) (unknown) cetirizine 10 mg tablet (Zyrtec) 10 mg PO DAILY PRN Seasonal 08/13/22 10/21/22 (units unknown) (unknown) (unknown) (no date) (unknown) (unknown) clear and mucous membranes are moist. Neck is supple and symmetric, trachea is (units unknown) (unknown) (unknown) (no date) (unknown) (unknown) comfortably, in no distress at this time. (units unknown) (unknown) (unknown) (no date) (unknown) (unknown) completing 1 unit of blood, Repeat H+H pending. (units unknown) (unknown) (unknown) (no date) (unknown) (unknown) diverticulitis, GERD , HDL, osteoarthritis, who was hospitalized and taken to the (units unknown) (unknown) (unknown) (no date) (unknown) (unknown) diverticulitis, GERD , HDL, osteoarthritis, who was taken to the OR today by (units unknown) (unknown) (unknown) (no date) (unknown) (unknown) documented. (units unknown) (unknown) (unknown) (no date) (unknown) (unknown) docusate sodium 100 mg capsule 100 mg PO BID PRN constipation #30 09/15/22 (units unknown) (unknown) (unknown) (no date) (unknown) (unknown) escitalopram oxalate 20 mg tablet 20 mg PO DAILY 08/13/22 10/21/22 History (units unknown) (unknown) (unknown) (no date) (unknown) (unknown) for management. (units unknown) (unknown) (unknown) (no date) (unknown) (unknown) fracture. Patient david ridley returned to the ED on 10/20/2022 from [facility] for (units unknown) (unknown) (unknown) (no date) (unknown) (unknown) hematoma/seroma of t he left hip and was taken to the OR earlier today by (units unknown) (unknown) (unknown) (no date) (unknown) (unknown) her hemoglobin/hematocrit 7.4/21-she was then given 1 unit of blood transfusion. (units unknown) (unknown) (unknown) (no date) (unknown) (unknown) hospitalist Service consult regarding the patient's s/p anemia and possible UTI (units unknown) (unknown) (unknown) (no date) (unknown) (unknown) household members: spouse (units unknown) (unknown) (unknown) (no date) (unknown) (unknown) hydroxyzine pamoate 25 mg capsule 25 mg PO TID-QID PRN itching #60 09/30/22 (units unknown) (unknown) (unknown) (no date) (unknown) (unknown) infection, intact radial and pedal pulses are normal. (units unknown) (unknown) (unknown) (no date) (unknown) (unknown) mg-250 mg-65 mg tabl et (Excedrin (units unknown) (unknown) (unknown) (no date) (unknown) (unknown) midline, no adenopathy, no thyroid enlargement, nontender, no masses palpated. (units unknown) (unknown) (unknown) (no date) (unknown) (unknown) noted of cranial nerves. (units unknown) (unknown) (unknown) (no date) (unknown) (unknown) omeprazole 20 mg-sodium 1 cap PO DAILY PRN GI Upset 08/13/22 10/21/22 History (units unknown) (unknown) (unknown) (no date) (unknown) (unknown) oxycodone 5 mg table t 5 mg PO Q4-6H PRN Pain, Moderate 10/06/22 Rx (units unknown) (unknown) (unknown) (no date) (unknown) (unknown) regarding the patient's anemia and possible UTI for management. (units unknown) (unknown) (unknown) (no date) (unknown) (unknown) release (units unknown) (unknown) (unknown) (no date) (unknown) (unknown) retractions, or tachypneic labored breathing. (units unknown) (unknown) (unknown) (no date) (unknown) (unknown) solifenacin 10 mg tablet (Vesicare) 10 mg PO DAILY 08/13/22 10/21/22 History (units unknown) (unknown) (unknown) (no date) (unknown) (unknown) stable temp 96.8?, B P 134/74, 70, 18, 98% on 3 L nasal cannula. Patient is just (units unknown) (unknown) (unknown) (no date) (unknown) (unknown) tenderness. (units unknown) (unknown) (unknown) (no date) (unknown) (unknown) that the patient had possible UTI, also status post op the patient had a dip in (units unknown) (unknown) (unknown) (no date) (unknown) (unknown) trochanteric left fracture on 10/02. Dr. Paulino graciously requested that the (units unknown) (unknown) (unknown) (no date) (unknown) (unknown) wheezes, rhonchi, or rales. (units unknown) (unknown) Result panel [id number] (unknown) (no date) (unknown) (unknown) (no value) (units unknown) (unknown) (unknown) (no date) (unknown) (unknown) #90 tabs (units unknown) (unknown) (unknown) (no date) (unknown) (unknown) (4-6) #60 tabs (units unknown) (unknown) (unknown) (no date) (unknown) (unknown) (Vistaril) caps (units unknown) (unknown) (unknown) (no date) (unknown) (unknown) (Zegerid) (units unknown) (unknown) (unknown) (no date) (unknown) (unknown) (past 8 hours): (units unknown) (unknown) (unknown) (no date) (unknown) (unknown) * As evidence by bladder scan (units unknown) (unknown) (unknown) (no date) (unknown) (unknown) * Licea catheter placed- Goal: urine output> 50 cc/HR (units unknown) (unknown) (unknown) (no date) (unknown) (unknown) * Gentle hydration L R at 42 cc/HR (units unknown) (unknown) (unknown) (no date) (unknown) (unknown) * Monitor for bleeding, guaiac as needed (units unknown) (unknown) (unknown) (no date) (unknown) (unknown) * Monitor for signs and symptoms of infection (units unknown) (unknown) (unknown) (no date) (unknown) (unknown) * Patient has no whi te count, lactate and procalcitonin are negative (units unknown) (unknown) (unknown) (no date) (unknown) (unknown) * Patient received cefazolin in OR (units unknown) (unknown) (unknown) (no date) (unknown) (unknown) * Repeat CBC in a.m. (units unknown) (unknown) (unknown) (no date) (unknown) (unknown) * Repeat labs in a.m. (units unknown) (unknown) (unknown) (no date) (unknown) (unknown) * S/P :H+H 7.4/21, 1 unit of blood received-repeat H+H 8.4/24.5 (units unknown) (unknown) (unknown) (no date) (unknown) (unknown) * Urine culture ordered (units unknown) (unknown) (unknown) (no date) (unknown) (unknown) * Vital signs stable temp 96.8?, 134/74, 70, 18, 98% on 3 L (units unknown) (unknown) (unknown) (no date) (unknown) (unknown) * Will not initiate antibiotics at this time pending culture results or s/s of (units unknown) (unknown) (unknown) (no date) (unknown) (unknown) 00:23 00:23 00:23 (units unknown) (unknown) (unknown) (no date) (unknown) (unknown) 01:04 05:00 15:25 (units unknown) (unknown) (unknown) (no date) (unknown) (unknown) 10/21/22 10/21/22 10/21/22 (units unknown) (unknown) (unknown) (no date) (unknown) (unknown) 10/21/22 15:25 (units unknown) (unknown) (unknown) (no date) (unknown) (unknown) 10/21/22 17:00 (units unknown) (unknown) (unknown) (no date) (unknown) (unknown) 10/21/22 Rx (units unknown) (unknown) (unknown) (no date) (unknown) (unknown) 10/21/22 (units unknown) (unknown) (unknown) (no date) (unknown) (unknown) 15:33 10/21/22 (units unknown) (unknown) (unknown) (no date) (unknown) (unknown) 15:38 10/21/22 (units unknown) (unknown) (unknown) (no date) (unknown) (unknown) 16:00 10/21/22 (units unknown) (unknown) (unknown) (no date) (unknown) (unknown) 16:30 (units unknown) (unknown) (unknown) (no date) (unknown) (unknown) 17:00 10/21/22 (units unknown) (unknown) (unknown) (no date) (unknown) (unknown) 17:00 (units unknown) (unknown) (unknown) (no date) (unknown) (unknown) 17:19 (units unknown) (unknown) (unknown) (no date) (unknown) (unknown) 17:29 10/21/22 (units unknown) (unknown) (unknown) (no date) (unknown) (unknown) 18:00 10/21/22 (units unknown) (unknown) (unknown) (no date) (unknown) (unknown) 19:35 (units unknown) (unknown) (unknown) (no date) (unknown) (unknown) 23:15 (units unknown) (unknown) (unknown) (no date) (unknown) (unknown) 3151 (units unknown) (unknown) (unknown) (no date) (unknown) (unknown) ALT 19 (units unknown) (unknown) (unknown) (no date) (unknown) (unknown) ALT 21 (units unknown) (unknown) (unknown) (no date) (unknown) (unknown) ALT (units unknown) (unknown) (unknown) (no date) (unknown) (unknown) AST 23 (units unknown) (unknown) (unknown) (no date) (unknown) (unknown) AST 28 (units unknown) (unknown) (unknown) (no date) (unknown) (unknown) AST (units unknown) (unknown) (unknown) (no date) (unknown) (unknown) Abdomen: Soft nontender, negative for organomegaly, or masses. Bowel sounds (units unknown) (unknown) (unknown) (no date) (unknown) (unknown) Acute urinary retention (units unknown) (unknown) (unknown) (no date) (unknown) (unknown) Age/Sex: 72 / F (units unknown) (unknown) (unknown) (no date) (unknown) (unknown) Albumin 2.8 L (units unknown) (unknown) (unknown) (no date) (unknown) (unknown) Albumin 3.0 L (units unknown) (unknown) (unknown) (no date) (unknown) (unknown) Albumin (units unknown) (unknown) (unknown) (no date) (unknown) (unknown) Albumin/Globulin Rat io 1.0 (units unknown) (unknown) (unknown) (no date) (unknown) (unknown) Albumin/Globulin Rat io 1.1 (units unknown) (unknown) (unknown) (no date) (unknown) (unknown) Albumin/Globulin Ratio (units unknown) (unknown) (unknown) (no date) (unknown) (unknown) Alkaline Phosphatase 86 (units unknown) (unknown) (unknown) (no date) (unknown) (unknown) Alkaline Phosphatase 93 (units unknown) (unknown) (unknown) (no date) (unknown) (unknown) Alkaline Phosphatase (units unknown) (unknown) (unknown) (no date) (unknown) (unknown) All 12 point systems reviewed with the patient and are negative except otherwise (units unknown) (unknown) (unknown) (no date) (unknown) (unknown) Allergies (units unknown) (unknown) (unknown) (no date) (unknown) (unknown) Allergy/AdvReac Type Severity Reaction Status Date / Time (units unknown) (unknown) (unknown) (no date) (unknown) (unknown) Antibody Screen Negative (units unknown) (unknown) (unknown) (no date) (unknown) (unknown) Antibody Screen (units unknown) (unknown) (unknown) (no date) (unknown) (unknown) Assessment + Plan narrative: (units unknown) (unknown) (unknown) (no date) (unknown) (unknown) Assessment + Plan (units unknown) (unknown) (unknown) (no date) (unknown) (unknown) BUN 17 (units unknown) (unknown) (unknown) (no date) (unknown) (unknown) BUN 19 H (units unknown) (unknown) (unknown) (no date) (unknown) (unknown) BUN (units unknown) (unknown) (unknown) (no date) (unknown) (unknown) BUN/Creatinine Ratio 19.0 (units unknown) (unknown) (unknown) (no date) (unknown) (unknown) BUN/Creatinine Ratio 20.5 (units unknown) (unknown) (unknown) (no date) (unknown) (unknown) BUN/Creatinine Ratio (units unknown) (unknown) (unknown) (no date) (unknown) (unknown) Baso # (Auto) 0 (units unknown) (unknown) (unknown) (no date) (unknown) (unknown) Baso # (Auto) (units unknown) (unknown) (unknown) (no date) (unknown) (unknown) Baso % (Auto) 0.4 (units unknown) (unknown) (unknown) (no date) (unknown) (unknown) Baso % (Auto) (units unknown) (unknown) (unknown) (no date) (unknown) (unknown) Blood Pressure 121/6 1 130/57 L (units unknown) (unknown) (unknown) (no date) (unknown) (unknown) Blood Pressure 134/74 (units unknown) (unknown) (unknown) (no date) (unknown) (unknown) Blood Pressure 134/7 7 111/63 120/47 L (units unknown) (unknown) (unknown) (no date) (unknown) (unknown) Blood Pressure 147/7 0 H 160/70 H (units unknown) (unknown) (unknown) (no date) (unknown) (unknown) Blood Type O Positive (units unknown) (unknown) (unknown) (no date) (unknown) (unknown) Blood Type (units unknown) (unknown) (unknown) (no date) (unknown) (unknown) Blood loss anemia status post I+D hematoma/seroma of left hip, acute (units unknown) (unknown) (unknown) (no date) (unknown) (unknown) COVID PCR: (units unknown) (unknown) (unknown) (no date) (unknown) (unknown) COVID vaccination: (units unknown) (unknown) (unknown) (no date) (unknown) (unknown) Calcium 8.0 L (units unknown) (unknown) (unknown) (no date) (unknown) (unknown) Calcium 8.3 L (units unknown) (unknown) (unknown) (no date) (unknown) (unknown) Calcium (units unknown) (unknown) (unknown) (no date) (unknown) (unknown) Carbon Dioxide 27 (units unknown) (unknown) (unknown) (no date) (unknown) (unknown) Carbon Dioxide 28 (units unknown) (unknown) (unknown) (no date) (unknown) (unknown) Carbon Dioxide (units unknown) (unknown) (unknown) (no date) (unknown) (unknown) Cardio: regular rate and rhythm without murmur, rubs, or gallops, no carotid (units unknown) (unknown) (unknown) (no date) (unknown) (unknown) Chest: Normal AP diameter and contour without kyphoscoliosis, no nasal flaring, (units unknown) (unknown) (unknown) (no date) (unknown) (unknown) Chief complaint: Gre en Drainage/Bleeding (units unknown) (unknown) (unknown) (no date) (unknown) (unknown) Chloride 98 (units unknown) (unknown) (unknown) (no date) (unknown) (unknown) Chloride (units unknown) (unknown) (unknown) (no date) (unknown) (unknown) Code status: Full (units unknown) (unknown) (unknown) (no date) (unknown) (unknown) [place] for I+D of hematoma/seroma of left hip status post ORIF greater (units unknown) (unknown) (unknown) (no date) (unknown) (unknown) [place] for I+D. Wh en a catheter was placed during surgery there was concerns (units unknown) (unknown) (unknown) (no date) (unknown) (unknown) Consult Note (units unknown) (unknown) (unknown) (no date) (unknown) (unknown) Consult details (units unknown) (unknown) (unknown) (no date) (unknown) (unknown) Creatinine 0.83 (units unknown) (unknown) (unknown) (no date) (unknown) (unknown) Creatinine 1.00 (units unknown) (unknown) (unknown) (no date) (unknown) (unknown) Creatinine (units unknown) (unknown) (unknown) (no date) (unknown) (unknown) Crossmatch See Detail (units unknown) (unknown) (unknown) (no date) (unknown) (unknown) Crossmatch (units unknown) (unknown) (unknown) (no date) (unknown) (unknown) : 1950 Acct:[id number] (units unknown) (unknown) (unknown) (no date) (unknown) (unknown) DVT/VTE prophylaxis: (units unknown) (unknown) (unknown) (no date) (unknown) (unknown) Date Patient Seen: 10/21/22 (units unknown) (unknown) (unknown) (no date) (unknown) (unknown) Date of Service: 10/21/22 (units unknown) (unknown) (unknown) (no date) (unknown) (unknown) Depression (units unknown) (unknown) (unknown) (no date) (unknown) (unknown) Disposition: (units unknown) (unknown) (unknown) (no date) (unknown) (unknown) Diverticulitis (units unknown) (unknown) (unknown) (no date) (unknown) (unknown) Dr. Paulino graciously requested that the hospitalist Service consult (units unknown) (unknown) (unknown) (no date) (unknown) (unknown) Eos # (Auto) 400 (units unknown) (unknown) (unknown) (no date) (unknown) (unknown) Eos # (Auto) (units unknown) (unknown) (unknown) (no date) (unknown) (unknown) Eos % (Auto) 5.9 H (units unknown) (unknown) (unknown) (no date) (unknown) (unknown) Eos % (Auto) (units unknown) (unknown) (unknown) (no date) (unknown) (unknown) Estimated GFR > 60 (units unknown) (unknown) (unknown) (no date) (unknown) (unknown) Estimated GFR 60 (units unknown) (unknown) (unknown) (no date) (unknown) (unknown) Estimated GFR (units unknown) (unknown) (unknown) (no date) (unknown) (unknown) Exam Narrative: (units unknown) (unknown) (unknown) (no date) (unknown) (unknown) Exam (units unknown) (unknown) (unknown) (no date) (unknown) (unknown) Exception-the patien t is not eligible for medication reconciliation; the patient (units unknown) (unknown) (unknown) (no date) (unknown) (unknown) Extra Strength) (units unknown) (unknown) (unknown) (no date) (unknown) (unknown) Family History (units unknown) (unknown) (unknown) (no date) (unknown) (unknown) Father No problems noted. (units unknown) (unknown) (unknown) (no date) (unknown) (unknown) GERD (gastroesophage al reflux disease) (units unknown) (unknown) (unknown) (no date) (unknown) (unknown) General: Patient is a well-developed, well-nourished elderly female, resting (units unknown) (unknown) (unknown) (no date) (unknown) (unknown) Globulin 2.6 (units unknown) (unknown) (unknown) (no date) (unknown) (unknown) Globulin 3.1 (units unknown) (unknown) (unknown) (no date) (unknown) (unknown) Globulin (units unknown) (unknown) (unknown) (no date) (unknown) (unknown) Glucose 111 H (units unknown) (unknown) (unknown) (no date) (unknown) (unknown) Glucose 127 H (units unknown) (unknown) (unknown) (no date) (unknown) (unknown) Glucose (units unknown) (unknown) (unknown) (no date) (unknown) (unknown) HEENT: Normocephalic , atraumatic, extraocular muscles intact, oral pharynx is (units unknown) (unknown) (unknown) (no date) (unknown) (unknown) HLD (hyperlipidemia) (units unknown) (unknown) (unknown) (no date) (unknown) (unknown) Hct 21.1 L (units unknown) (unknown) (unknown) (no date) (unknown) (unknown) Hct 24.5 L (units unknown) (unknown) (unknown) (no date) (unknown) (unknown) Hct (units unknown) (unknown) (unknown) (no date) (unknown) (unknown) Hearing impaired (units unknown) (unknown) (unknown) (no date) (unknown) (unknown) Hgb 7.4 L (units unknown) (unknown) (unknown) (no date) (unknown) (unknown) Hgb 8.4 L (units unknown) (unknown) (unknown) (no date) (unknown) (unknown) Hgb (units unknown) (unknown) (unknown) (no date) (unknown) (unknown) History of Present Illness (units unknown) (unknown) (unknown) (no date) (unknown) (unknown) History of bladder surgery (units unknown) (unknown) (unknown) (no date) (unknown) (unknown) History of total lef t knee replacement (units unknown) (unknown) (unknown) (no date) (unknown) (unknown) History of total rig ht knee replacement (units unknown) (unknown) (unknown) (no date) (unknown) (unknown) History (units unknown) (unknown) (unknown) (no date) (unknown) (unknown) Home Medications and Allergies (units unknown) (unknown) (unknown) (no date) (unknown) (unknown) Home Medications (units unknown) (unknown) (unknown) (no date) (unknown) (unknown) Hx of left breast biopsy (units unknown) (unknown) (unknown) (no date) (unknown) (unknown) Hx of right breast biopsy (units unknown) (unknown) (unknown) (no date) (unknown) (unknown) Hx of tonsillectomy (units unknown) (unknown) (unknown) (no date) (unknown) (unknown) I confirmed that the patient's advanced care plan is present, Code status is (units unknown) (unknown) (unknown) (no date) (unknown) (unknown) I have personally reviewed patient's chart notes from PCP, specialists, (units unknown) (unknown) (unknown) (no date) (unknown) (unknown) I have utilized all available immediate resources to obtain, update, or review (units unknown) (unknown) (unknown) (no date) (unknown) (unknown) [address] [address] (units unknown) (unknown) (unknown) (no date) (unknown) (unknown) Selene Garcia is a 72-year-old female with a history of depression, (units unknown) (unknown) (unknown) (no date) (unknown) (unknown) Laboratory Results - last 24 hr (units unknown) (unknown) (unknown) (no date) (unknown) (unknown) Labs (units unknown) (unknown) (unknown) (no date) (unknown) (unknown) Labs: (units unknown) (unknown) (unknown) (no date) (unknown) (unknown) Lactate 0.8 (units unknown) (unknown) (unknown) (no date) (unknown) (unknown) Lactate (units unknown) (unknown) (unknown) (no date) (unknown) (unknown) Lungs: Auscultation of all lung morrow are clear without adventitious sounds, (units unknown) (unknown) (unknown) (no date) (unknown) (unknown) Lymph # (Auto) 1000 L (units unknown) (unknown) (unknown) (no date) (unknown) (unknown) Lymph # (Auto) (units unknown) (unknown) (unknown) (no date) (unknown) (unknown) Lymph % (Auto) 14.5 L (units unknown) (unknown) (unknown) (no date) (unknown) (unknown) Lymph % (Auto) (units unknown) (unknown) (unknown) (no date) (unknown) (unknown) MCH 28.8 (units unknown) (unknown) (unknown) (no date) (unknown) (unknown) MCH (units unknown) (unknown) (unknown) (no date) (unknown) (unknown) MCHC 34.9 (units unknown) (unknown) (unknown) (no date) (unknown) (unknown) MCHC (units unknown) (unknown) (unknown) (no date) (unknown) (unknown) MCV 82.6 (units unknown) (unknown) (unknown) (no date) (unknown) (unknown) MCV (units unknown) (unknown) (unknown) (no date) (unknown) (unknown) Medical History (units unknown) (unknown) (unknown) (no date) (unknown) (unknown) Medication Instructions Recorded Confirmed Type (units unknown) (unknown) (unknown) (no date) (unknown) (unknown) Meds (units unknown) (unknown) (unknown) (no date) (unknown) (unknown) [place] # (Auto) 700 (units unknown) (unknown) (unknown) (no date) (unknown) (unknown) [place] # (Auto) (units unknown) (unknown) (unknown) (no date) (unknown) (unknown) [place] % (Auto) 10.7 (units unknown) (unknown) (unknown) (no date) (unknown) (unknown) [place] % (Auto) (units unknown) (unknown) (unknown) (no date) (unknown) (unknown) Mother No problems noted. (units unknown) (unknown) (unknown) (no date) (unknown) (unknown) Musculoskeletal: [place] in in place Left hip, dressing in place w/out signs of (units unknown) (unknown) (unknown) (no date) (unknown) (unknown) Narrative (units unknown) (unknown) (unknown) (no date) (unknown) (unknown) Narrative: (units unknown) (unknown) (unknown) (no date) (unknown) (unknown) Negative for JVD (units unknown) (unknown) (unknown) (no date) (unknown) (unknown) Neuro: Alert and orientated x3, sensation to touch intact, no gross deficits (units unknown) (unknown) (unknown) (no date) (unknown) (unknown) Neut # (Auto) 4700 (units unknown) (unknown) (unknown) (no date) (unknown) (unknown) Neut # (Auto) (units unknown) (unknown) (unknown) (no date) (unknown) (unknown) Neut % (Auto) 68.5 (units unknown) (unknown) (unknown) (no date) (unknown) (unknown) Neut % (Auto) (units unknown) (unknown) (unknown) (no date) (unknown) (unknown) No Known Drug Allergies Allergy Verified 10/02/22 18:28 (units unknown) (unknown) (unknown) (no date) (unknown) (unknown) OR for through 10/02/[address] River for a ORIF greater trochanteric (units unknown) (unknown) (unknown) (no date) (unknown) (unknown) Objective (units unknown) (unknown) (unknown) (no date) (unknown) (unknown) On admit patient denies chest pain, shortness in breath, headache, changes in (units unknown) (unknown) (unknown) (no date) (unknown) (unknown) Osteoarthritis (units unknown) (unknown) (unknown) (no date) (unknown) (unknown) Oxygen Delivery Meth od Nasal Cannula Nasal Cannula Nasal Cannula (units unknown) (unknown) (unknown) (no date) (unknown) (unknown) Oxygen Delivery Meth od Nasal Cannula (units unknown) (unknown) (unknown) (no date) (unknown) (unknown) Oxygen Delivery Method (units unknown) (unknown) (unknown) (no date) (unknown) (unknown) Oxygen Flow Rate 0 0 3 (units unknown) (unknown) (unknown) (no date) (unknown) (unknown) Oxygen Flow Rate 0 2 0 (units unknown) (unknown) (unknown) (no date) (unknown) (unknown) Oxygen Flow Rate 3 3 (units unknown) (unknown) (unknown) (no date) (unknown) (unknown) Oxygen Flow Rate 3 (units unknown) (unknown) (unknown) (no date) (unknown) (unknown) PFSH (units unknown) (unknown) (unknown) (no date) (unknown) (unknown) Patient is resting quite comfortably in bed, still quite sedated from anesthesia (units unknown) (unknown) (unknown) (no date) (unknown) (unknown) Patient: Barbara Garcia MR#: [id number] (units unknown) (unknown) (unknown) (no date) (unknown) (unknown) Plt Count 470 H (units unknown) (unknown) (unknown) (no date) (unknown) (unknown) Plt Count (units unknown) (unknown) (unknown) (no date) (unknown) (unknown) Potassium 3.5 (units unknown) (unknown) (unknown) (no date) (unknown) (unknown) Potassium 3.7 (units unknown) (unknown) (unknown) (no date) (unknown) (unknown) Potassium (units unknown) (unknown) (unknown) (no date) (unknown) (unknown) Procalcitonin 0.47 (units unknown) (unknown) (unknown) (no date) (unknown) (unknown) Procalcitonin (units unknown) (unknown) (unknown) (no date) (unknown) (unknown) Provider: Shelly Arora (units unknown) (unknown) (unknown) (no date) (unknown) (unknown) Psych: Patient has a well-kept appearance, appropriate affect, mental status (units unknown) (unknown) (unknown) (no date) (unknown) (unknown) Pulse Oximetry 96 94 97 (units unknown) (unknown) (unknown) (no date) (unknown) (unknown) Pulse Oximetry 96 96 97 (units unknown) (unknown) (unknown) (no date) (unknown) (unknown) Pulse Oximetry 97 96 (units unknown) (unknown) (unknown) (no date) (unknown) (unknown) Pulse Oximetry 98 (units unknown) (unknown) (unknown) (no date) (unknown) (unknown) Pulse Rate 70 (units unknown) (unknown) (unknown) (no date) (unknown) (unknown) Pulse Rate 87 89 83 (units unknown) (unknown) (unknown) (no date) (unknown) (unknown) Pulse Rate 87 89 (units unknown) (unknown) (unknown) (no date) (unknown) (unknown) Pulse Rate 92 H 91 H (units unknown) (unknown) (unknown) (no date) (unknown) (unknown) RBC 2.55 L (units unknown) (unknown) (unknown) (no date) (unknown) (unknown) RBC (units unknown) (unknown) (unknown) (no date) (unknown) (unknown) RDW 15.9 H (units unknown) (unknown) (unknown) (no date) (unknown) (unknown) RDW (units unknown) (unknown) (unknown) (no date) (unknown) (unknown) Reason for consult: S/P Anemia, possible UTI (units unknown) (unknown) (unknown) (no date) (unknown) (unknown) Respiratory Rate 15 15 (units unknown) (unknown) (unknown) (no date) (unknown) (unknown) Respiratory Rate 18 18 18 (units unknown) (unknown) (unknown) (no date) (unknown) (unknown) Respiratory Rate 18 (units unknown) (unknown) (unknown) (no date) (unknown) (unknown) Respiratory Rate 19 18 (units unknown) (unknown) (unknown) (no date) (unknown) (unknown) Review of Systems (units unknown) (unknown) (unknown) (no date) (unknown) (unknown) SARS-CoV-2 (PCR) Negative (units unknown) (unknown) (unknown) (no date) (unknown) (unknown) SARS-CoV-2 (PCR) (units unknown) (unknown) (unknown) (no date) (unknown) (unknown) Seasonal allergies (units unknown) (unknown) (unknown) (no date) (unknown) (unknown) Signed By: (units unknown) (unknown) (unknown) (no date) (unknown) (unknown) Skin: Warm dry and intact without rashes, ulcerations or petechiae. (units unknown) (unknown) (unknown) (no date) (unknown) (unknown) Smoking Status: Alejandrae r smoker (units unknown) (unknown) (unknown) (no date) (unknown) (unknown) Social History (units unknown) (unknown) (unknown) (no date) (unknown) (unknown) Sodium 131 L (units unknown) (unknown) (unknown) (no date) (unknown) (unknown) Sodium 134 L (units unknown) (unknown) (unknown) (no date) (unknown) (unknown) Sodium (units unknown) (unknown) (unknown) (no date) (unknown) (unknown) Surgical History (units unknown) (unknown) (unknown) (no date) (unknown) (unknown) Surrogate decision maker: (units unknown) (unknown) (unknown) (no date) (unknown) (unknown) Temperature 96.8 F L (units unknown) (unknown) (unknown) (no date) (unknown) (unknown) Temperature 97.1 F L 97.3 F L (units unknown) (unknown) (unknown) (no date) (unknown) (unknown) Temperature 97.3 F L 96.9 F L 97.7 F (units unknown) (unknown) (unknown) (no date) (unknown) (unknown) Temperature (units unknown) (unknown) (unknown) (no date) (unknown) (unknown) Time Patient Seen: 21:00 (units unknown) (unknown) (unknown) (no date) (unknown) (unknown) Tobacco + Substance Use (units unknown) (unknown) (unknown) (no date) (unknown) (unknown) Total Bilirubin 0.3 (units unknown) (unknown) (unknown) (no date) (unknown) (unknown) Total Bilirubin 0.8 (units unknown) (unknown) (unknown) (no date) (unknown) (unknown) Total Bilirubin (units unknown) (unknown) (unknown) (no date) (unknown) (unknown) Total Protein 5.4 L (units unknown) (unknown) (unknown) (no date) (unknown) (unknown) Total Protein 6.1 L (units unknown) (unknown) (unknown) (no date) (unknown) (unknown) Total Protein (units unknown) (unknown) (unknown) (no date) (unknown) (unknown) Vital Signs (units unknown) (unknown) (unknown) (no date) (unknown) (unknown) WBC 6.9 (units unknown) (unknown) (unknown) (no date) (unknown) (unknown) WBC (units unknown) (unknown) (unknown) (no date) (unknown) (unknown) [Embedded Image Not Available] (units unknown) (unknown) (unknown) (no date) (unknown) (unknown) acetaminophen 325 mg tablet 650 mg PO Q6H PRN fever or pain 09/15/22 10/21/22 Rx (units unknown) (unknown) (unknown) (no date) (unknown) (unknown) aches, chills, cough , recent exposure to illness, abdominal pain, nausea, (units unknown) (unknown) (unknown) (no date) (unknown) (unknown) alcohol intake: current (units unknown) (unknown) (unknown) (no date) (unknown) (unknown) allergies (units unknown) (unknown) (unknown) (no date) (unknown) (unknown) and falls asleep easily is in no distress or pain at this time. Vital signs are (units unknown) (unknown) (unknown) (no date) (unknown) (unknown) are hypoactive prese nt in all 4 quadrants without guarding or rebound, no CVA (units unknown) (unknown) (unknown) (no date) (unknown) (unknown) aspirin 81 mg tablet,delayed 81 mg PO BID 6 weeks #84 tabs 09/15/22 10/21/22 Rx (units unknown) (unknown) (unknown) (no date) (unknown) (unknown) aspirin-acetaminophe n- caffeine 250 1 - 2 tab PO BID 08/13/22 10/21/22 History (units unknown) (unknown) (unknown) (no date) (unknown) (unknown) atorvastatin 20 mg tablet 20 mg PO BEDTIME 08/13/22 10/21/22 History (units unknown) (unknown) (unknown) (no date) (unknown) (unknown) attitude thought context and judgment are appropriate for age. (units unknown) (unknown) (unknown) (no date) (unknown) (unknown) bicarbonate 1.1 gram capsule (units unknown) (unknown) (unknown) (no date) (unknown) (unknown) bruit, no cardiac pulsations present. (units unknown) (unknown) (unknown) (no date) (unknown) (unknown) caps (units unknown) (unknown) (unknown) (no date) (unknown) (unknown) cetirizine 10 mg tablet (Zyrtec) 10 mg PO DAILY PRN Seasonal 08/13/22 10/21/22 (units unknown) (unknown) (unknown) (no date) (unknown) (unknown) changes to medicatio n or illness. (units unknown) (unknown) (unknown) (no date) (unknown) (unknown) clear and mucous membranes are moist. Neck is supple and symmetric, trachea is (units unknown) (unknown) (unknown) (no date) (unknown) (unknown) comfortably, in no distress at this time. (units unknown) (unknown) (unknown) (no date) (unknown) (unknown) completing 1 unit of blood, Repeat H+H pending. (units unknown) (unknown) (unknown) (no date) (unknown) (unknown) culture pending and monitor for bleeding. (units unknown) (unknown) (unknown) (no date) (unknown) (unknown) diagnostic imaging, and laboratory results. (units unknown) (unknown) (unknown) (no date) (unknown) (unknown) diverticulitis, GERD , HDL, osteoarthritis, who was hospitalized and taken to the (units unknown) (unknown) (unknown) (no date) (unknown) (unknown) diverticulitis, GERD , HDL, osteoarthritis, who was taken to the OR today by (units unknown) (unknown) (unknown) (no date) (unknown) (unknown) documented and/or surrogate decision maker is listed in the patient's medical (units unknown) (unknown) (unknown) (no date) (unknown) (unknown) documented. (units unknown) (unknown) (unknown) (no date) (unknown) (unknown) docusate sodium 100 mg capsule 100 mg PO BID PRN constipation #30 09/15/22 (units unknown) (unknown) (unknown) (no date) (unknown) (unknown) escitalopram oxalate 20 mg tablet 20 mg PO DAILY 08/13/22 10/21/22 History (units unknown) (unknown) (unknown) (no date) (unknown) (unknown) for management. Fole y placed due to urinary retention and patient has (units unknown) (unknown) (unknown) (no date) (unknown) (unknown) fracture. Patient david ridley returned to the ED on 10/[facility]/2022 from [facility] for (units unknown) (unknown) (unknown) (no date) (unknown) (unknown) hematoma/seroma of t he left hip and was taken to the OR earlier today by (units unknown) (unknown) (unknown) (no date) (unknown) (unknown) hematuria, bowel changes, constipation, incontinence, melena, rashes, recent (units unknown) (unknown) (unknown) (no date) (unknown) (unknown) her hemoglobin/hematocrit 7.4/21-she was then given 1 unit of blood transfusion. (units unknown) (unknown) (unknown) (no date) (unknown) (unknown) hospitalist Service consult regarding the patient's s/p anemia and possible UTI (units unknown) (unknown) (unknown) (no date) (unknown) (unknown) household members: spouse (units unknown) (unknown) (unknown) (no date) (unknown) (unknown) hydroxyzine pamoate 25 mg capsule 25 mg PO TID-QID PRN itching #60 09/30/22 (units unknown) (unknown) (unknown) (no date) (unknown) (unknown) increased immobility , will monitor overnight gentle fluid hydration urine (units unknown) (unknown) (unknown) (no date) (unknown) (unknown) infection (units unknown) (unknown) (unknown) (no date) (unknown) (unknown) infection, intact radial and pedal pulses are normal. (units unknown) (unknown) (unknown) (no date) (unknown) (unknown) is in an emergent medical situation were delaying treatment would jeopardize (units unknown) (unknown) (unknown) (no date) (unknown) (unknown) mg-250 mg-65 mg tabl et (Excedrin (units unknown) (unknown) (unknown) (no date) (unknown) (unknown) midline, no adenopathy, no thyroid enlargement, nontender, no masses palpated. (units unknown) (unknown) (unknown) (no date) (unknown) (unknown) noted of cranial nerves. (units unknown) (unknown) (unknown) (no date) (unknown) (unknown) omeprazole 20 mg-sodium 1 cap PO DAILY PRN GI Upset 08/13/22 10/21/22 History (units unknown) (unknown) (unknown) (no date) (unknown) (unknown) oxycodone 5 mg table t 5 mg PO Q4-6H PRN Pain, Moderate 10/06/22 10/21/22 Rx (units unknown) (unknown) (unknown) (no date) (unknown) (unknown) record. (units unknown) (unknown) (unknown) (no date) (unknown) (unknown) regarding the patient's anemia and possible UTI for management. (units unknown) (unknown) (unknown) (no date) (unknown) (unknown) release (units unknown) (unknown) (unknown) (no date) (unknown) (unknown) retractions, or tachypneic labored breathing. (units unknown) (unknown) (unknown) (no date) (unknown) (unknown) solifenacin 10 mg tablet (Vesicare) 10 mg PO DAILY 08/13/22 10/21/22 History (units unknown) (unknown) (unknown) (no date) (unknown) (unknown) stable temp 96.8?, B P 134/74, 70, 18, 98% on 3 L nasal cannula. Patient is just (units unknown) (unknown) (unknown) (no date) (unknown) (unknown) tenderness. (units unknown) (unknown) (unknown) (no date) (unknown) (unknown) that the patient had possible UTI, also status post op the patient had a dip in (units unknown) (unknown) (unknown) (no date) (unknown) (unknown) the patient's curren t medications. (units unknown) (unknown) (unknown) (no date) (unknown) (unknown) the patient's health. (units unknown) (unknown) (unknown) (no date) (unknown) (unknown) trochanteric left fracture on 10/02. Dr. Paulino graciously requested that the (units unknown) (unknown) (unknown) (no date) (unknown) (unknown) vision, difficulty swallowing, speech impairment, head injury, LOC, fever, body (units unknown) (unknown) (unknown) (no date) (unknown) (unknown) vomiting, urinary incontinence/retention , dysuria, frequency, urgency, (units unknown) (unknown) (unknown) (no date) (unknown) (unknown) wheezes, rhonchi, or rales. (units unknown) (unknown) Result panel [id number] (unknown) (no date) (unknown) (unknown) (no value) (units unknown) (unknown) (unknown) (no date) (unknown) (unknown) #90 tabs (units unknown) (unknown) (unknown) (no date) (unknown) (unknown) (4-6) #60 tabs (units unknown) (unknown) (unknown) (no date) (unknown) (unknown) (Vistaril) caps (units unknown) (unknown) (unknown) (no date) (unknown) (unknown) (Zegerid) (units unknown) (unknown) (unknown) (no date) (unknown) (unknown) (past 8 hours): (units unknown) (unknown) (unknown) (no date) (unknown) (unknown) * As evidence by bladder scan (units unknown) (unknown) (unknown) (no date) (unknown) (unknown) * Licea catheter placed- Goal: urine output> 50 cc/HR (units unknown) (unknown) (unknown) (no date) (unknown) (unknown) * Gentle hydration L R at 42 cc/HR (units unknown) (unknown) (unknown) (no date) (unknown) (unknown) * Monitor for bleeding, guaiac as needed (units unknown) (unknown) (unknown) (no date) (unknown) (unknown) * Monitor for signs and symptoms of infection (units unknown) (unknown) (unknown) (no date) (unknown) (unknown) * Patient has no whi te count, lactate and procalcitonin are negative (units unknown) (unknown) (unknown) (no date) (unknown) (unknown) * Patient received cefazolin in OR (units unknown) (unknown) (unknown) (no date) (unknown) (unknown) * Repeat CBC in a.m. (units unknown) (unknown) (unknown) (no date) (unknown) (unknown) * Repeat labs in a.m. (units unknown) (unknown) (unknown) (no date) (unknown) (unknown) * S/P :H+H 7.4/21, 1 unit of blood received-repeat H+H 8.4/24.5 (units unknown) (unknown) (unknown) (no date) (unknown) (unknown) * Urine culture ordered (units unknown) (unknown) (unknown) (no date) (unknown) (unknown) * Vital signs stable temp 96.8?, 134/74, 70, 18, 98% on 3 L (O2 required only (units unknown) (unknown) (unknown) (no date) (unknown) (unknown) * Will not initiate antibiotics at this time pending culture results or s/s of (units unknown) (unknown) (unknown) (no date) (unknown) (unknown) 00:23 00:23 00:23 (units unknown) (unknown) (unknown) (no date) (unknown) (unknown) 01:04 05:00 15:25 (units unknown) (unknown) (unknown) (no date) (unknown) (unknown) 10/21/22 10/21/22 10/21/22 (units unknown) (unknown) (unknown) (no date) (unknown) (unknown) 10/21/22 15:25 (units unknown) (unknown) (unknown) (no date) (unknown) (unknown) 10/21/22 17:00 (units unknown) (unknown) (unknown) (no date) (unknown) (unknown) 10/21/22 Rx (units unknown) (unknown) (unknown) (no date) (unknown) (unknown) 10/21/22 (units unknown) (unknown) (unknown) (no date) (unknown) (unknown) 10/22/22 0003 (units unknown) (unknown) (unknown) (no date) (unknown) (unknown) 15:33 10/21/22 (units unknown) (unknown) (unknown) (no date) (unknown) (unknown) 15:38 10/21/22 (units unknown) (unknown) (unknown) (no date) (unknown) (unknown) 16:00 10/21/22 (units unknown) (unknown) (unknown) (no date) (unknown) (unknown) 16:30 (units unknown) (unknown) (unknown) (no date) (unknown) (unknown) 17:00 10/21/22 (units unknown) (unknown) (unknown) (no date) (unknown) (unknown) 17:00 (units unknown) (unknown) (unknown) (no date) (unknown) (unknown) 17:19 (units unknown) (unknown) (unknown) (no date) (unknown) (unknown) 17:29 10/21/22 (units unknown) (unknown) (unknown) (no date) (unknown) (unknown) 18:00 10/21/22 (units unknown) (unknown) (unknown) (no date) (unknown) (unknown) 19:35 (units unknown) (unknown) (unknown) (no date) (unknown) (unknown) 23:15 (units unknown) (unknown) (unknown) (no date) (unknown) (unknown) 3151 (units unknown) (unknown) (unknown) (no date) (unknown) (unknown) ALT 19 (units unknown) (unknown) (unknown) (no date) (unknown) (unknown) ALT 21 (units unknown) (unknown) (unknown) (no date) (unknown) (unknown) ALT (units unknown) (unknown) (unknown) (no date) (unknown) (unknown) AST 23 (units unknown) (unknown) (unknown) (no date) (unknown) (unknown) AST 28 (units unknown) (unknown) (unknown) (no date) (unknown) (unknown) AST (units unknown) (unknown) (unknown) (no date) (unknown) (unknown) Abdomen: Soft nontender, negative for organomegaly, or masses. Bowel sounds (units unknown) (unknown) (unknown) (no date) (unknown) (unknown) Acute urinary retention, status postop, possible UTI (units unknown) (unknown) (unknown) (no date) (unknown) (unknown) Age/Sex: 72 / F (units unknown) (unknown) (unknown) (no date) (unknown) (unknown) Albumin 2.8 L (units unknown) (unknown) (unknown) (no date) (unknown) (unknown) Albumin 3.0 L (units unknown) (unknown) (unknown) (no date) (unknown) (unknown) Albumin (units unknown) (unknown) (unknown) (no date) (unknown) (unknown) Albumin/Globulin Rat io 1.0 (units unknown) (unknown) (unknown) (no date) (unknown) (unknown) Albumin/Globulin Rat io 1.1 (units unknown) (unknown) (unknown) (no date) (unknown) (unknown) Albumin/Globulin Ratio (units unknown) (unknown) (unknown) (no date) (unknown) (unknown) Alkaline Phosphatase 86 (units unknown) (unknown) (unknown) (no date) (unknown) (unknown) Alkaline Phosphatase 93 (units unknown) (unknown) (unknown) (no date) (unknown) (unknown) Alkaline Phosphatase (units unknown) (unknown) (unknown) (no date) (unknown) (unknown) All 12 point systems reviewed with the patient and are negative except otherwise (units unknown) (unknown) (unknown) (no date) (unknown) (unknown) Allergies (units unknown) (unknown) (unknown) (no date) (unknown) (unknown) Allergy/AdvReac Type Severity Reaction Status Date / Time (units unknown) (unknown) (unknown) (no date) (unknown) (unknown) Antibody Screen Negative (units unknown) (unknown) (unknown) (no date) (unknown) (unknown) Antibody Screen (units unknown) (unknown) (unknown) (no date) (unknown) (unknown) Assessment + Plan narrative: (units unknown) (unknown) (unknown) (no date) (unknown) (unknown) Assessment + Plan (units unknown) (unknown) (unknown) (no date) (unknown) (unknown) BUN 17 (units unknown) (unknown) (unknown) (no date) (unknown) (unknown) BUN 19 H (units unknown) (unknown) (unknown) (no date) (unknown) (unknown) BUN (units unknown) (unknown) (unknown) (no date) (unknown) (unknown) BUN/Creatinine Ratio 19.0 (units unknown) (unknown) (unknown) (no date) (unknown) (unknown) BUN/Creatinine Ratio 20.5 (units unknown) (unknown) (unknown) (no date) (unknown) (unknown) BUN/Creatinine Ratio (units unknown) (unknown) (unknown) (no date) (unknown) (unknown) Baso # (Auto) 0 (units unknown) (unknown) (unknown) (no date) (unknown) (unknown) Baso # (Auto) (units unknown) (unknown) (unknown) (no date) (unknown) (unknown) Baso % (Auto) 0.4 (units unknown) (unknown) (unknown) (no date) (unknown) (unknown) Baso % (Auto) (units unknown) (unknown) (unknown) (no date) (unknown) (unknown) Blood Pressure 121/6 1 130/57 L (units unknown) (unknown) (unknown) (no date) (unknown) (unknown) Blood Pressure 134/74 (units unknown) (unknown) (unknown) (no date) (unknown) (unknown) Blood Pressure 134/7 7 111/63 120/47 L (units unknown) (unknown) (unknown) (no date) (unknown) (unknown) Blood Pressure 147/7 0 H 160/70 H (units unknown) (unknown) (unknown) (no date) (unknown) (unknown) Blood Type O Positive (units unknown) (unknown) (unknown) (no date) (unknown) (unknown) Blood Type (units unknown) (unknown) (unknown) (no date) (unknown) (unknown) Blood loss anemia status post I+D hematoma/seroma of left hip, acute (units unknown) (unknown) (unknown) (no date) (unknown) (unknown) COVID PCR: Negative (units unknown) (unknown) (unknown) (no date) (unknown) (unknown) Calcium 8.0 L (units unknown) (unknown) (unknown) (no date) (unknown) (unknown) Calcium 8.3 L (units unknown) (unknown) (unknown) (no date) (unknown) (unknown) Calcium (units unknown) (unknown) (unknown) (no date) (unknown) (unknown) Carbon Dioxide 27 (units unknown) (unknown) (unknown) (no date) (unknown) (unknown) Carbon Dioxide 28 (units unknown) (unknown) (unknown) (no date) (unknown) (unknown) Carbon Dioxide (units unknown) (unknown) (unknown) (no date) (unknown) (unknown) Cardio: regular rate and rhythm without murmur, rubs, or gallops, no carotid (units unknown) (unknown) (unknown) (no date) (unknown) (unknown) Chest: Normal AP diameter and contour without kyphoscoliosis, no nasal flaring, (units unknown) (unknown) (unknown) (no date) (unknown) (unknown) Chief complaint: Gre en Drainage/Bleeding (units unknown) (unknown) (unknown) (no date) (unknown) (unknown) Chloride 98 (units unknown) (unknown) (unknown) (no date) (unknown) (unknown) Chloride (units unknown) (unknown) (unknown) (no date) (unknown) (unknown) Code status: Full (units unknown) (unknown) (unknown) (no date) (unknown) (unknown) [place] for I+D of hematoma/seroma of left hip status post ORIF greater (units unknown) (unknown) (unknown) (no date) (unknown) (unknown) [place] for I+D. Wh en a catheter was placed during surgery there was concerns (units unknown) (unknown) (unknown) (no date) (unknown) (unknown) Consult Note (units unknown) (unknown) (unknown) (no date) (unknown) (unknown) Consult details (units unknown) (unknown) (unknown) (no date) (unknown) (unknown) Creatinine 0.83 (units unknown) (unknown) (unknown) (no date) (unknown) (unknown) Creatinine 1.00 (units unknown) (unknown) (unknown) (no date) (unknown) (unknown) Creatinine (units unknown) (unknown) (unknown) (no date) (unknown) (unknown) Crossmatch See Detail (units unknown) (unknown) (unknown) (no date) (unknown) (unknown) Crossmatch (units unknown) (unknown) (unknown) (no date) (unknown) (unknown) : 1950 Acct:[id number] (units unknown) (unknown) (unknown) (no date) (unknown) (unknown) DVT/VTE prophylaxis: Medication per Dr. Paulino, SCD to right leg only (units unknown) (unknown) (unknown) (no date) (unknown) (unknown) Date Patient Seen: 10/21/22 (units unknown) (unknown) (unknown) (no date) (unknown) (unknown) Date of Service: 10/21/22 (units unknown) (unknown) (unknown) (no date) (unknown) (unknown) Depression (units unknown) (unknown) (unknown) (no date) (unknown) (unknown) Disposition:Consult (units unknown) (unknown) (unknown) (no date) (unknown) (unknown) Diverticulitis (units unknown) (unknown) (unknown) (no date) (unknown) (unknown) Dr. Paulino graciously requested that the hospitalist Service consult (units unknown) (unknown) (unknown) (no date) (unknown) (unknown) Eos # (Auto) 400 (units unknown) (unknown) (unknown) (no date) (unknown) (unknown) Eos # (Auto) (units unknown) (unknown) (unknown) (no date) (unknown) (unknown) Eos % (Auto) 5.9 H (units unknown) (unknown) (unknown) (no date) (unknown) (unknown) Eos % (Auto) (units unknown) (unknown) (unknown) (no date) (unknown) (unknown) Estimated GFR > 60 (units unknown) (unknown) (unknown) (no date) (unknown) (unknown) Estimated GFR 60 (units unknown) (unknown) (unknown) (no date) (unknown) (unknown) Estimated GFR (units unknown) (unknown) (unknown) (no date) (unknown) (unknown) Exam Narrative: (units unknown) (unknown) (unknown) (no date) (unknown) (unknown) Exam (units unknown) (unknown) (unknown) (no date) (unknown) (unknown) Extra Strength) (units unknown) (unknown) (unknown) (no date) (unknown) (unknown) Family History (units unknown) (unknown) (unknown) (no date) (unknown) (unknown) Father No problems noted. (units unknown) (unknown) (unknown) (no date) (unknown) (unknown) GERD (gastroesophage al reflux disease) (units unknown) (unknown) (unknown) (no date) (unknown) (unknown) General: Patient is a well-developed, well-nourished elderly female, resting (units unknown) (unknown) (unknown) (no date) (unknown) (unknown) Globulin 2.6 (units unknown) (unknown) (unknown) (no date) (unknown) (unknown) Globulin 3.1 (units unknown) (unknown) (unknown) (no date) (unknown) (unknown) Globulin (units unknown) (unknown) (unknown) (no date) (unknown) (unknown) Glucose 111 H (units unknown) (unknown) (unknown) (no date) (unknown) (unknown) Glucose 127 H (units unknown) (unknown) (unknown) (no date) (unknown) (unknown) Glucose (units unknown) (unknown) (unknown) (no date) (unknown) (unknown) HEENT: Normocephalic , atraumatic, extraocular muscles intact, oral pharynx is (units unknown) (unknown) (unknown) (no date) (unknown) (unknown) HLD (hyperlipidemia) (units unknown) (unknown) (unknown) (no date) (unknown) (unknown) Hct 21.1 L (units unknown) (unknown) (unknown) (no date) (unknown) (unknown) Hct 24.5 L (units unknown) (unknown) (unknown) (no date) (unknown) (unknown) Hct (units unknown) (unknown) (unknown) (no date) (unknown) (unknown) Hearing impaired (units unknown) (unknown) (unknown) (no date) (unknown) (unknown) Hgb 7.4 L (units unknown) (unknown) (unknown) (no date) (unknown) (unknown) Hgb 8.4 L (units unknown) (unknown) (unknown) (no date) (unknown) (unknown) Hgb (units unknown) (unknown) (unknown) (no date) (unknown) (unknown) History of Present Illness (units unknown) (unknown) (unknown) (no date) (unknown) (unknown) History of bladder surgery (units unknown) (unknown) (unknown) (no date) (unknown) (unknown) History of total lef t knee replacement (units unknown) (unknown) (unknown) (no date) (unknown) (unknown) History of total rig ht knee replacement (units unknown) (unknown) (unknown) (no date) (unknown) (unknown) History (units unknown) (unknown) (unknown) (no date) (unknown) (unknown) Home Medications and Allergies (units unknown) (unknown) (unknown) (no date) (unknown) (unknown) Home Medications (units unknown) (unknown) (unknown) (no date) (unknown) (unknown) Hx of left breast biopsy (units unknown) (unknown) (unknown) (no date) (unknown) (unknown) Hx of right breast biopsy (units unknown) (unknown) (unknown) (no date) (unknown) (unknown) Hx of tonsillectomy (units unknown) (unknown) (unknown) (no date) (unknown) (unknown) I confirmed that the patient's advanced care plan is present, Code status is (units unknown) (unknown) (unknown) (no date) (unknown) (unknown) I have personally reviewed patient's chart notes from PCP, specialists, (units unknown) (unknown) (unknown) (no date) (unknown) (unknown) I have utilized all available immediate resources to obtain, update, or review (units unknown) (unknown) (unknown) (no date) (unknown) (unknown) [address] [address] (units unknown) (unknown) (unknown) (no date) (unknown) (unknown) Selene Garcia is a 72-year-old female with a history of depression, (units unknown) (unknown) (unknown) (no date) (unknown) (unknown) Laboratory Results - last 24 hr (units unknown) (unknown) (unknown) (no date) (unknown) (unknown) Labs (units unknown) (unknown) (unknown) (no date) (unknown) (unknown) Labs: (units unknown) (unknown) (unknown) (no date) (unknown) (unknown) Lactate 0.8 (units unknown) (unknown) (unknown) (no date) (unknown) (unknown) Lactate (units unknown) (unknown) (unknown) (no date) (unknown) (unknown) Lungs: Auscultation of all lung morrow are clear without adventitious sounds, (units unknown) (unknown) (unknown) (no date) (unknown) (unknown) Lymph # (Auto) 1000 L (units unknown) (unknown) (unknown) (no date) (unknown) (unknown) Lymph # (Auto) (units unknown) (unknown) (unknown) (no date) (unknown) (unknown) Lymph % (Auto) 14.5 L (units unknown) (unknown) (unknown) (no date) (unknown) (unknown) Lymph % (Auto) (units unknown) (unknown) (unknown) (no date) (unknown) (unknown) MCH 28.8 (units unknown) (unknown) (unknown) (no date) (unknown) (unknown) MCH (units unknown) (unknown) (unknown) (no date) (unknown) (unknown) MCHC 34.9 (units unknown) (unknown) (unknown) (no date) (unknown) (unknown) MCHC (units unknown) (unknown) (unknown) (no date) (unknown) (unknown) MCV 82.6 (units unknown) (unknown) (unknown) (no date) (unknown) (unknown) MCV (units unknown) (unknown) (unknown) (no date) (unknown) (unknown) Medical History (units unknown) (unknown) (unknown) (no date) (unknown) (unknown) Medication Instructions Recorded Confirmed Type (units unknown) (unknown) (unknown) (no date) (unknown) (unknown) Meds (units unknown) (unknown) (unknown) (no date) (unknown) (unknown) [place] # (Auto) 700 (units unknown) (unknown) (unknown) (no date) (unknown) (unknown) [place] # (Auto) (units unknown) (unknown) (unknown) (no date) (unknown) (unknown) [place] % (Auto) 10.7 (units unknown) (unknown) (unknown) (no date) (unknown) (unknown) [place] % (Auto) (units unknown) (unknown) (unknown) (no date) (unknown) (unknown) Mother No problems noted. (units unknown) (unknown) (unknown) (no date) (unknown) (unknown) Musculoskeletal: [place] in in place Left hip, dressing in place w/out signs of (units unknown) (unknown) (unknown) (no date) (unknown) (unknown) Narrative (units unknown) (unknown) (unknown) (no date) (unknown) (unknown) Narrative: (units unknown) (unknown) (unknown) (no date) (unknown) (unknown) Negative for JVD (units unknown) (unknown) (unknown) (no date) (unknown) (unknown) Neuro: Alert and orientated x3, sensation to touch intact, no gross deficits (units unknown) (unknown) (unknown) (no date) (unknown) (unknown) Neut # (Auto) 4700 (units unknown) (unknown) (unknown) (no date) (unknown) (unknown) Neut # (Auto) (units unknown) (unknown) (unknown) (no date) (unknown) (unknown) Neut % (Auto) 68.5 (units unknown) (unknown) (unknown) (no date) (unknown) (unknown) Neut % (Auto) (units unknown) (unknown) (unknown) (no date) (unknown) (unknown) No Known Drug Allergies Allergy Verified 10/02/22 18:28 (units unknown) (unknown) (unknown) (no date) (unknown) (unknown) OR for 27 through 10/02/[address] River for a ORIF greater trochanteric (units unknown) (unknown) (unknown) (no date) (unknown) (unknown) Objective (units unknown) (unknown) (unknown) (no date) (unknown) (unknown) On admit patient denies chest pain, shortness in breath, headache, changes in (units unknown) (unknown) (unknown) (no date) (unknown) (unknown) Osteoarthritis (units unknown) (unknown) (unknown) (no date) (unknown) (unknown) Oxygen Delivery Meth od Nasal Cannula Nasal Cannula Nasal Cannula (units unknown) (unknown) (unknown) (no date) (unknown) (unknown) Oxygen Delivery Meth od Nasal Cannula (units unknown) (unknown) (unknown) (no date) (unknown) (unknown) Oxygen Delivery Method (units unknown) (unknown) (unknown) (no date) (unknown) (unknown) Oxygen Flow Rate 0 0 3 (units unknown) (unknown) (unknown) (no date) (unknown) (unknown) Oxygen Flow Rate 0 2 0 (units unknown) (unknown) (unknown) (no date) (unknown) (unknown) Oxygen Flow Rate 3 3 (units unknown) (unknown) (unknown) (no date) (unknown) (unknown) Oxygen Flow Rate 3 (units unknown) (unknown) (unknown) (no date) (unknown) (unknown) PFSH (units unknown) (unknown) (unknown) (no date) (unknown) (unknown) Patient is resting quite comfortably in bed, still quite sedated from anesthesia (units unknown) (unknown) (unknown) (no date) (unknown) (unknown) Patient: Charisma Garciamike lane MR#: [id number] (units unknown) (unknown) (unknown) (no date) (unknown) (unknown) Plt Count 470 H (units unknown) (unknown) (unknown) (no date) (unknown) (unknown) Plt Count (units unknown) (unknown) (unknown) (no date) (unknown) (unknown) Potassium 3.5 (units unknown) (unknown) (unknown) (no date) (unknown) (unknown) Potassium 3.7 (units unknown) (unknown) (unknown) (no date) (unknown) (unknown) Potassium (units unknown) (unknown) (unknown) (no date) (unknown) (unknown) Procalcitonin 0.47 (units unknown) (unknown) (unknown) (no date) (unknown) (unknown) Procalcitonin (units unknown) (unknown) (unknown) (no date) (unknown) (unknown) Provider: Shelly Arora [employer] (units unknown) (unknown) (unknown) (no date) (unknown) (unknown) Psych: Patient has a well-kept appearance, appropriate affect, mental status (units unknown) (unknown) (unknown) (no date) (unknown) (unknown) Pulse Oximetry 96 94 97 (units unknown) (unknown) (unknown) (no date) (unknown) (unknown) Pulse Oximetry 96 96 97 (units unknown) (unknown) (unknown) (no date) (unknown) (unknown) Pulse Oximetry 97 96 (units unknown) (unknown) (unknown) (no date) (unknown) (unknown) Pulse Oximetry 98 (units unknown) (unknown) (unknown) (no date) (unknown) (unknown) Pulse Rate 70 (units unknown) (unknown) (unknown) (no date) (unknown) (unknown) Pulse Rate 87 89 83 (units unknown) (unknown) (unknown) (no date) (unknown) (unknown) Pulse Rate 87 89 (units unknown) (unknown) (unknown) (no date) (unknown) (unknown) Pulse Rate 92 H 91 H (units unknown) (unknown) (unknown) (no date) (unknown) (unknown) RBC 2.55 L (units unknown) (unknown) (unknown) (no date) (unknown) (unknown) RBC (units unknown) (unknown) (unknown) (no date) (unknown) (unknown) RDW 15.9 H (units unknown) (unknown) (unknown) (no date) (unknown) (unknown) RDW (units unknown) (unknown) (unknown) (no date) (unknown) (unknown) Reason for consult: S/P Anemia, possible UTI (units unknown) (unknown) (unknown) (no date) (unknown) (unknown) Respiratory Rate 15 15 (units unknown) (unknown) (unknown) (no date) (unknown) (unknown) Respiratory Rate 18 18 18 (units unknown) (unknown) (unknown) (no date) (unknown) (unknown) Respiratory Rate 18 (units unknown) (unknown) (unknown) (no date) (unknown) (unknown) Respiratory Rate 19 18 (units unknown) (unknown) (unknown) (no date) (unknown) (unknown) Review of Systems (units unknown) (unknown) (unknown) (no date) (unknown) (unknown) SARS-CoV-2 (PCR) Negative (units unknown) (unknown) (unknown) (no date) (unknown) (unknown) SARS-CoV-2 (PCR) (units unknown) (unknown) (unknown) (no date) (unknown) (unknown) Seasonal allergies (units unknown) (unknown) (unknown) (no date) (unknown) (unknown) Signed By:<Electronically signed by Shelly Arora> (units unknown) (unknown) (unknown) (no date) (unknown) (unknown) Skin: Warm dry and intact without rashes, ulcerations or petechiae. (units unknown) (unknown) (unknown) (no date) (unknown) (unknown) Smoking Status: Carmencita r smoker (units unknown) (unknown) (unknown) (no date) (unknown) (unknown) Social History (units unknown) (unknown) (unknown) (no date) (unknown) (unknown) Sodium 131 L (units unknown) (unknown) (unknown) (no date) (unknown) (unknown) Sodium 134 L (units unknown) (unknown) (unknown) (no date) (unknown) (unknown) Sodium (units unknown) (unknown) (unknown) (no date) (unknown) (unknown) Surgical History (units unknown) (unknown) (unknown) (no date) (unknown) (unknown) Surrogate decision maker: Nathanael Garcia spouse (units unknown) (unknown) (unknown) (no date) (unknown) (unknown) Temperature 96.8 F L (units unknown) (unknown) (unknown) (no date) (unknown) (unknown) Temperature 97.1 F L 97.3 F L (units unknown) (unknown) (unknown) (no date) (unknown) (unknown) Temperature 97.3 F L 96.9 F L 97.7 F (units unknown) (unknown) (unknown) (no date) (unknown) (unknown) Temperature (units unknown) (unknown) (unknown) (no date) (unknown) (unknown) Time Patient Seen: 21:00 (units unknown) (unknown) (unknown) (no date) (unknown) (unknown) Tobacco + Substance Use (units unknown) (unknown) (unknown) (no date) (unknown) (unknown) Total Bilirubin 0.3 (units unknown) (unknown) (unknown) (no date) (unknown) (unknown) Total Bilirubin 0.8 (units unknown) (unknown) (unknown) (no date) (unknown) (unknown) Total Bilirubin (units unknown) (unknown) (unknown) (no date) (unknown) (unknown) Total Protein 5.4 L (units unknown) (unknown) (unknown) (no date) (unknown) (unknown) Total Protein 6.1 L (units unknown) (unknown) (unknown) (no date) (unknown) (unknown) Total Protein (units unknown) (unknown) (unknown) (no date) (unknown) (unknown) Vital Signs (units unknown) (unknown) (unknown) (no date) (unknown) (unknown) WBC 6.9 (units unknown) (unknown) (unknown) (no date) (unknown) (unknown) WBC (units unknown) (unknown) (unknown) (no date) (unknown) (unknown) [Embedded Image Not Available] (units unknown) (unknown) (unknown) (no date) (unknown) (unknown) acetaminophen 325 mg tablet 650 mg PO Q6H PRN fever or pain 09/15/22 10/21/22 Rx (units unknown) (unknown) (unknown) (no date) (unknown) (unknown) aches, chills, cough , recent exposure to illness, abdominal pain, nausea, (units unknown) (unknown) (unknown) (no date) (unknown) (unknown) alcohol intake: current (units unknown) (unknown) (unknown) (no date) (unknown) (unknown) allergies (units unknown) (unknown) (unknown) (no date) (unknown) (unknown) and falls asleep easily is in no distress or pain at this time. Vital signs are (units unknown) (unknown) (unknown) (no date) (unknown) (unknown) are hypoactive prese nt in all 4 quadrants without guarding or rebound, no CVA (units unknown) (unknown) (unknown) (no date) (unknown) (unknown) aspirin 81 mg tablet,delayed 81 mg PO BID 6 weeks #84 tabs 09/15/22 10/21/22 Rx (units unknown) (unknown) (unknown) (no date) (unknown) (unknown) aspirin-acetaminophe n- caffeine 250 1 - 2 tab PO BID 08/13/22 10/21/22 History (units unknown) (unknown) (unknown) (no date) (unknown) (unknown) atorvastatin 20 mg tablet 20 mg PO BEDTIME 08/13/22 10/21/22 History (units unknown) (unknown) (unknown) (no date) (unknown) (unknown) attitude thought context and judgment are appropriate for age. (units unknown) (unknown) (unknown) (no date) (unknown) (unknown) bicarbonate 1.1 gram capsule (units unknown) (unknown) (unknown) (no date) (unknown) (unknown) bruit, no cardiac pulsations present. (units unknown) (unknown) (unknown) (no date) (unknown) (unknown) caps (units unknown) (unknown) (unknown) (no date) (unknown) (unknown) cetirizine 10 mg tablet (Zyrtec) 10 mg PO DAILY PRN Seasonal 08/13/22 10/21/22 (units unknown) (unknown) (unknown) (no date) (unknown) (unknown) changes to medicatio n or illness. (units unknown) (unknown) (unknown) (no date) (unknown) (unknown) clear and mucous membranes are moist. Neck is supple and symmetric, trachea is (units unknown) (unknown) (unknown) (no date) (unknown) (unknown) comfortably, in no distress at this time. (units unknown) (unknown) (unknown) (no date) (unknown) (unknown) completing 1 unit of blood, Repeat H+H pending. (units unknown) (unknown) (unknown) (no date) (unknown) (unknown) culture pending and monitor for bleeding. (units unknown) (unknown) (unknown) (no date) (unknown) (unknown) diagnostic imaging, and laboratory results. (units unknown) (unknown) (unknown) (no date) (unknown) (unknown) diverticulitis, GERD , HDL, osteoarthritis, who was hospitalized and taken to the (units unknown) (unknown) (unknown) (no date) (unknown) (unknown) diverticulitis, GERD , HDL, osteoarthritis, who was taken to the OR today by (units unknown) (unknown) (unknown) (no date) (unknown) (unknown) documented and/or surrogate decision maker is listed in the patient's medical (units unknown) (unknown) (unknown) (no date) (unknown) (unknown) documented. (units unknown) (unknown) (unknown) (no date) (unknown) (unknown) docusate sodium 100 mg capsule 100 mg PO BID PRN constipation #30 09/15/22 (units unknown) (unknown) (unknown) (no date) (unknown) (unknown) escitalopram oxalate 20 mg tablet 20 mg PO DAILY 08/13/22 10/21/22 History (units unknown) (unknown) (unknown) (no date) (unknown) (unknown) for management. Fole y placed due to urinary retention and patient has (units unknown) (unknown) (unknown) (no date) (unknown) (unknown) fracture. Patient david ridley returned to the ED on 10/20/2022 from [facility] for (units unknown) (unknown) (unknown) (no date) (unknown) (unknown) hematoma/seroma of t he left hip and was taken to the OR earlier today by (units unknown) (unknown) (unknown) (no date) (unknown) (unknown) hematuria, bowel changes, constipation, incontinence, melena, rashes, recent (units unknown) (unknown) (unknown) (no date) (unknown) (unknown) her hemoglobin/hematocrit 7.4/21-she was then given 1 unit of blood transfusion. (units unknown) (unknown) (unknown) (no date) (unknown) (unknown) hospitalist Service consult regarding the patient's s/p anemia and possible UTI (units unknown) (unknown) (unknown) (no date) (unknown) (unknown) household members: spouse (units unknown) (unknown) (unknown) (no date) (unknown) (unknown) hydroxyzine pamoate 25 mg capsule 25 mg PO TID-QID PRN itching #60 09/30/22 (units unknown) (unknown) (unknown) (no date) (unknown) (unknown) increased immobility , will monitor overnight gentle fluid hydration urine (units unknown) (unknown) (unknown) (no date) (unknown) (unknown) infection (units unknown) (unknown) (unknown) (no date) (unknown) (unknown) infection, intact radial and pedal pulses are normal. (units unknown) (unknown) (unknown) (no date) (unknown) (unknown) mg-250 mg-65 mg tabl et (Excedrin (units unknown) (unknown) (unknown) (no date) (unknown) (unknown) midline, no adenopathy, no thyroid enlargement, nontender, no masses palpated. (units unknown) (unknown) (unknown) (no date) (unknown) (unknown) noted of cranial nerves. (units unknown) (unknown) (unknown) (no date) (unknown) (unknown) omeprazole 20 mg-sodium 1 cap PO DAILY PRN GI Upset 08/13/22 10/21/22 History (units unknown) (unknown) (unknown) (no date) (unknown) (unknown) oxycodone 5 mg table t 5 mg PO Q4-6H PRN Pain, Moderate 10/06/22 10/21/22 Rx (units unknown) (unknown) (unknown) (no date) (unknown) (unknown) record. (units unknown) (unknown) (unknown) (no date) (unknown) (unknown) regarding the patient's anemia and possible UTI for management. (units unknown) (unknown) (unknown) (no date) (unknown) (unknown) release (units unknown) (unknown) (unknown) (no date) (unknown) (unknown) retractions, or tachypneic labored breathing. (units unknown) (unknown) (unknown) (no date) (unknown) (unknown) solifenacin 10 mg tablet (Vesicare) 10 mg PO DAILY 08/13/22 10/21/22 History (units unknown) (unknown) (unknown) (no date) (unknown) (unknown) stable temp 96.8?, B P 134/74, 70, 18, 98% on 3 L nasal cannula. Patient is just (units unknown) (unknown) (unknown) (no date) (unknown) (unknown) temporarily due to decreased 02 sat's from anesthesia) (units unknown) (unknown) (unknown) (no date) (unknown) (unknown) tenderness. (units unknown) (unknown) (unknown) (no date) (unknown) (unknown) that the patient had possible UTI, also status post op the patient had a dip in (units unknown) (unknown) (unknown) (no date) (unknown) (unknown) the patient's curren t medications. (units unknown) (unknown) (unknown) (no date) (unknown) (unknown) trochanteric left fracture on 10/02. Dr. Paulino graciously requested that the (units unknown) (unknown) (unknown) (no date) (unknown) (unknown) vision, difficulty swallowing, speech impairment, head injury, LOC, fever, body (units unknown) (unknown) (unknown) (no date) (unknown) (unknown) vomiting, urinary incontinence/retention , dysuria, frequency, urgency, (units unknown) (unknown) (unknown) (no date) (unknown) (unknown) wheezes, rhonchi, or rales. (units unknown) (unknown) Result panel 1407 (unknown) (no date) (unknown) (unknown) (no value) (units unknown) (unknown) (unknown) (no date) (unknown) (unknown) NO GROWTH AFTER 24 HOURS (units unknown) (unknown) Result panel 1408 (unknown) (no date) (unknown) (unknown) 5-10 /HPF (units unknown) (unknown) (unknown) (no date) (unknown) (unknown) 5-10/HPF (units unknown) (unknown) (unknown) (no date) (unknown) (unknown) Few (2-10) (units unknown) (unknown) (unknown) (no date) (unknown) (unknown) None Seen (units unknown) (unknown) (unknown) (no date) (unknown) (unknown) None Seen (units unknown) (unknown) (unknown) (no date) (unknown) (unknown) Specimen Cultured (units unknown) (unknown) Result panel 1409 (unknown) (no date) (unknown) (unknown) (no value) (units unknown) (unknown) (unknown) (no date) (unknown) (unknown) NO GROWTH AFTER 24 HOURS (units unknown) (unknown) Result panel 1410 (unknown) (no date) (unknown) (unknown) 15.9 % (unknown) (unknown) (no date) (unknown) (unknown) 2.82 x10 6/ul (unknown) (unknown) (no date) (unknown) (unknown) 23.5 % (unknown) (unknown) (no date) (unknown) (unknown) 28.0 pg (unknown) (unknown) (no date) (unknown) (unknown) 33.7 % (unknown) (unknown) (no date) (unknown) (unknown) 4.9 x10 3/ul (unknown) (unknown) (no date) (unknown) (unknown) 428 x10 3/ul (unknown) (unknown) (no date) (unknown) (unknown) 7.9 g/dl (unknown) (unknown) (no date) (unknown) (unknown) 83.2 fl (unknown) Result panel 1411 (unknown) (no date) (unknown) (unknown) 0.7 mmol/l (unknown) Result panel 1412 (unknown) (no date) (unknown) (unknown) (no value) (units unknown) (unknown) (unknown) (no date) (unknown) (unknown) Moderate WBCs (units unknown) (unknown) (unknown) (no date) (unknown) (unknown) No organisms seen (units unknown) (unknown) (unknown) (no date) (unknown) (unknown) Test not performed (units unknown) (unknown) (unknown) (no date) (unknown) (unknown) Very Early Growth: Culture too young for work-up reincubated (units unknown) (unknown) Result panel 1413 (unknown) (no date) (unknown) (unknown) (no value) (units unknown) (unknown) (unknown) (no date) (unknown) (unknown) (past 8 hours): (units unknown) (unknown) (unknown) (no date) (unknown) (unknown) 00:25 05:40 05:40 (units unknown) (unknown) (unknown) (no date) (unknown) (unknown) 01:04 15:25 17:00 (units unknown) (unknown) (unknown) (no date) (unknown) (unknown) 10/21/22 10/21/22 10/21/22 (units unknown) (unknown) (unknown) (no date) (unknown) (unknown) 10/21/22 17:00 (units unknown) (unknown) (unknown) (no date) (unknown) (unknown) 10/22/22 10/22/22 10/22/22 (units unknown) (unknown) (unknown) (no date) (unknown) (unknown) 10/22/22 05:40 (units unknown) (unknown) (unknown) (no date) (unknown) (unknown) 10/22/22 1307 (units unknown) (unknown) (unknown) (no date) (unknown) (unknown) 10/22/22 (units unknown) (unknown) (unknown) (no date) (unknown) (unknown) 08:51 (units unknown) (unknown) (unknown) (no date) (unknown) (unknown) 3151 (units unknown) (unknown) (unknown) (no date) (unknown) (unknown) 48 hours whichever comes 1st. Drain output today last shift 25 mL. (units unknown) (unknown) (unknown) (no date) (unknown) (unknown) 72-year-old female resting comfortably in bed in no apparent distress. Patient (units unknown) (unknown) (unknown) (no date) (unknown) (unknown) ALT 21 (units unknown) (unknown) (unknown) (no date) (unknown) (unknown) ALT (units unknown) (unknown) (unknown) (no date) (unknown) (unknown) AST 28 (units unknown) (unknown) (unknown) (no date) (unknown) (unknown) AST (units unknown) (unknown) (unknown) (no date) (unknown) (unknown) Actual Procedure [place] e Surgeon (units unknown) (unknown) (unknown) (no date) (unknown) (unknown) Acute blood loss anemia status post I and D hematoma left hip patient has (units unknown) (unknown) (unknown) (no date) (unknown) (unknown) Age/Sex: 72 / F (units unknown) (unknown) (unknown) (no date) (unknown) (unknown) Albumin 3.0 L (units unknown) (unknown) (unknown) (no date) (unknown) (unknown) Albumin (units unknown) (unknown) (unknown) (no date) (unknown) (unknown) Albumin/Globulin Rat io 1.0 (units unknown) (unknown) (unknown) (no date) (unknown) (unknown) Albumin/Globulin Ratio (units unknown) (unknown) (unknown) (no date) (unknown) (unknown) Alkaline Phosphatase 86 (units unknown) (unknown) (unknown) (no date) (unknown) (unknown) Alkaline Phosphatase (units unknown) (unknown) (unknown) (no date) (unknown) (unknown) Antibody Screen Negative (units unknown) (unknown) (unknown) (no date) (unknown) (unknown) Antibody Screen (units unknown) (unknown) (unknown) (no date) (unknown) (unknown) Aspirin for DVT prophylaxis. Monitor H+H. (units unknown) (unknown) (unknown) (no date) (unknown) (unknown) Assessment + Plan Post-op (units unknown) (unknown) (unknown) (no date) (unknown) (unknown) BUN 17 (units unknown) (unknown) (unknown) (no date) (unknown) (unknown) BUN (units unknown) (unknown) (unknown) (no date) (unknown) (unknown) BUN/Creatinine Ratio 20.5 (units unknown) (unknown) (unknown) (no date) (unknown) (unknown) BUN/Creatinine Ratio (units unknown) (unknown) (unknown) (no date) (unknown) (unknown) Blood Pressure 123/5 0 L (units unknown) (unknown) (unknown) (no date) (unknown) (unknown) Blood Type O Positive (units unknown) (unknown) (unknown) (no date) (unknown) (unknown) Blood Type (units unknown) (unknown) (unknown) (no date) (unknown) (unknown) Calcium 8.3 L (units unknown) (unknown) (unknown) (no date) (unknown) (unknown) Calcium (units unknown) (unknown) (unknown) (no date) (unknown) (unknown) Carbon Dioxide 27 (units unknown) (unknown) (unknown) (no date) (unknown) (unknown) Carbon Dioxide (units unknown) (unknown) (unknown) (no date) (unknown) (unknown) Chloride 98 (units unknown) (unknown) (unknown) (no date) (unknown) (unknown) Chloride (units unknown) (unknown) (unknown) (no date) (unknown) (unknown) Const (units unknown) (unknown) (unknown) (no date) (unknown) (unknown) Creatinine 0.83 (units unknown) (unknown) (unknown) (no date) (unknown) (unknown) Creatinine (units unknown) (unknown) (unknown) (no date) (unknown) (unknown) Crossmatch See Detail (units unknown) (unknown) (unknown) (no date) (unknown) (unknown) Crossmatch (units unknown) (unknown) (unknown) (no date) (unknown) (unknown) : 1950 Acct:[id number] (units unknown) (unknown) (unknown) (no date) (unknown) (unknown) Date Patient Seen: 10/22/22 (units unknown) (unknown) (unknown) (no date) (unknown) (unknown) Date of Service: 10/21/22 (units unknown) (unknown) (unknown) (no date) (unknown) (unknown) Deep Vein Thrombosis/Pulmonary Embolism Present on Admission: No (units unknown) (unknown) (unknown) (no date) (unknown) (unknown) Depression (units unknown) (unknown) (unknown) (no date) (unknown) (unknown) Diverticulitis (units unknown) (unknown) (unknown) (no date) (unknown) (unknown) Effort + Inspection: normal respiratory effort and able to speak in complete (units unknown) (unknown) (unknown) (no date) (unknown) (unknown) Estimated GFR > 60 (units unknown) (unknown) (unknown) (no date) (unknown) (unknown) Estimated GFR (units unknown) (unknown) (unknown) (no date) (unknown) (unknown) Exam Narrative: (units unknown) (unknown) (unknown) (no date) (unknown) (unknown) Exam (units unknown) (unknown) (unknown) (no date) (unknown) (unknown) Family History (units unknown) (unknown) (unknown) (no date) (unknown) (unknown) Father No problems noted. (units unknown) (unknown) (unknown) (no date) (unknown) (unknown) GERD (gastroesophage al reflux disease) (units unknown) (unknown) (unknown) (no date) (unknown) (unknown) General: cooperative and comfortable (units unknown) (unknown) (unknown) (no date) (unknown) (unknown) Globulin 3.1 (units unknown) (unknown) (unknown) (no date) (unknown) (unknown) Globulin (units unknown) (unknown) (unknown) (no date) (unknown) (unknown) Glucose 127 H (units unknown) (unknown) (unknown) (no date) (unknown) (unknown) Glucose (units unknown) (unknown) (unknown) (no date) (unknown) (unknown) HLD (hyperlipidemia) (units unknown) (unknown) (unknown) (no date) (unknown) (unknown) Hct 23.5 L (units unknown) (unknown) (unknown) (no date) (unknown) (unknown) Hct 24.5 L (units unknown) (unknown) (unknown) (no date) (unknown) (unknown) Hearing impaired (units unknown) (unknown) (unknown) (no date) (unknown) (unknown) Hgb 7.9 L (units unknown) (unknown) (unknown) (no date) (unknown) (unknown) Hgb 8.4 L (units unknown) (unknown) (unknown) (no date) (unknown) (unknown) History of bladder surgery (units unknown) (unknown) (unknown) (no date) (unknown) (unknown) History of total lef t knee replacement (units unknown) (unknown) (unknown) (no date) (unknown) (unknown) History of total rig ht knee replacement (units unknown) (unknown) (unknown) (no date) (unknown) (unknown) Hospitalist also following acute urinary retention, status postop, possible UTI (units unknown) (unknown) (unknown) (no date) (unknown) (unknown) Hx of left breast biopsy (units unknown) (unknown) (unknown) (no date) (unknown) (unknown) Hx of right breast biopsy (units unknown) (unknown) (unknown) (no date) (unknown) (unknown) Hx of tonsillectomy (units unknown) (unknown) (unknown) (no date) (unknown) (unknown) Internal medicine hospitalist consult for medically complex patient, symptomatic (units unknown) (unknown) (unknown) (no date) (unknown) (unknown) Interval history: (units unknown) (unknown) (unknown) (no date) (unknown) (unknown) [address] [address] (units unknown) (unknown) (unknown) (no date) (unknown) (unknown) Laboratory Results - last 24 hr (units unknown) (unknown) (unknown) (no date) (unknown) (unknown) Labs (units unknown) (unknown) (unknown) (no date) (unknown) (unknown) Labs: (units unknown) (unknown) (unknown) (no date) (unknown) (unknown) Lactate 0.7 (units unknown) (unknown) (unknown) (no date) (unknown) (unknown) Lactate (units unknown) (unknown) (unknown) (no date) (unknown) (unknown) MCH 28.0 (units unknown) (unknown) (unknown) (no date) (unknown) (unknown) MCH (units unknown) (unknown) (unknown) (no date) (unknown) (unknown) MCHC 33.7 (units unknown) (unknown) (unknown) (no date) (unknown) (unknown) MCHC (units unknown) (unknown) (unknown) (no date) (unknown) (unknown) MCV 83.2 (units unknown) (unknown) (unknown) (no date) (unknown) (unknown) MCV (units unknown) (unknown) (unknown) (no date) (unknown) (unknown) Medical History (units unknown) (unknown) (unknown) (no date) (unknown) (unknown) Monitor drain output . Drain will be removed when less than 10 cc per shift or (units unknown) (unknown) (unknown) (no date) (unknown) (unknown) Mother No problems noted. (units unknown) (unknown) (unknown) (no date) (unknown) (unknown) Narrative (units unknown) (unknown) (unknown) (no date) (unknown) (unknown) Nutritional Appearance: well nourished (units unknown) (unknown) (unknown) (no date) (unknown) (unknown) Objective (units unknown) (unknown) (unknown) (no date) (unknown) (unknown) Operation Date: 10/21/22 12:00 (units unknown) (unknown) (unknown) (no date) (unknown) (unknown) Orientation: alert (units unknown) (unknown) (unknown) (no date) (unknown) (unknown) Osteoarthritis (units unknown) (unknown) (unknown) (no date) (unknown) (unknown) Oxygen Delivery Meth od Nasal Cannula (units unknown) (unknown) (unknown) (no date) (unknown) (unknown) Oxygen Flow Rate 3 (units unknown) (unknown) (unknown) (no date) (unknown) (unknown) PFSH (units unknown) (unknown) (unknown) (no date) (unknown) (unknown) Pain is moderate to severe. Denies fever chills. No nausea vomiting. (units unknown) (unknown) (unknown) (no date) (unknown) (unknown) Patient: Barbara Garcia MR#: [id number] (units unknown) (unknown) (unknown) (no date) (unknown) (unknown) Plt Count 428 H (units unknown) (unknown) (unknown) (no date) (unknown) (unknown) Plt Count (units unknown) (unknown) (unknown) (no date) (unknown) (unknown) Postoperative day: 1 (units unknown) (unknown) (unknown) (no date) (unknown) (unknown) Postoperative plan narrative: Weightbear as tolerated. Posterior hip (units unknown) (unknown) (unknown) (no date) (unknown) (unknown) Postoperative status narrative: Status post irrigation and evacuation left hip (units unknown) (unknown) (unknown) (no date) (unknown) (unknown) Postoperative (units unknown) (unknown) (unknown) (no date) (unknown) (unknown) Potassium 3.7 (units unknown) (unknown) (unknown) (no date) (unknown) (unknown) Potassium (units unknown) (unknown) (unknown) (no date) (unknown) (unknown) Procedures (units unknown) (unknown) (unknown) (no date) (unknown) (unknown) Procedures: (units unknown) (unknown) (unknown) (no date) (unknown) (unknown) Progress Note (units unknown) (unknown) (unknown) (no date) (unknown) (unknown) Provider: Paulino Braden P.A-C (units unknown) (unknown) (unknown) (no date) (unknown) (unknown) Pulse Oximetry 96 (units unknown) (unknown) (unknown) (no date) (unknown) (unknown) Pulse Rate 61 (units unknown) (unknown) (unknown) (no date) (unknown) (unknown) Quality (units unknown) (unknown) (unknown) (no date) (unknown) (unknown) RBC 2.82 L (units unknown) (unknown) (unknown) (no date) (unknown) (unknown) RBC (units unknown) (unknown) (unknown) (no date) (unknown) (unknown) RDW 15.9 H (units unknown) (unknown) (unknown) (no date) (unknown) (unknown) RDW (units unknown) (unknown) (unknown) (no date) (unknown) (unknown) Resp (units unknown) (unknown) (unknown) (no date) (unknown) (unknown) Respiratory Rate 18 (units unknown) (unknown) (unknown) (no date) (unknown) (unknown) Seasonal allergies (units unknown) (unknown) (unknown) (no date) (unknown) (unknown) Signed By:<Electronically signed by Paulino Braden> (units unknown) (unknown) (unknown) (no date) (unknown) (unknown) Smoking Status: Alejandralane rubin smoker (units unknown) (unknown) (unknown) (no date) (unknown) (unknown) Social History (units unknown) (unknown) (unknown) (no date) (unknown) (unknown) Sodium 134 L (units unknown) (unknown) (unknown) (no date) (unknown) (unknown) Sodium (units unknown) (unknown) (unknown) (no date) (unknown) (unknown) Subjective (units unknown) (unknown) (unknown) (no date) (unknown) (unknown) Surgical History (units unknown) (unknown) (unknown) (no date) (unknown) (unknown) Temperature 98.3 F (units unknown) (unknown) (unknown) (no date) (unknown) (unknown) Time Patient Seen: 12:59 (units unknown) (unknown) (unknown) (no date) (unknown) (unknown) Total Bilirubin 0.8 (units unknown) (unknown) (unknown) (no date) (unknown) (unknown) Total Bilirubin (units unknown) (unknown) (unknown) (no date) (unknown) (unknown) Total Protein 6.1 L (units unknown) (unknown) (unknown) (no date) (unknown) (unknown) Total Protein (units unknown) (unknown) (unknown) (no date) (unknown) (unknown) Ur Culture Indicated ? Specimen cultured (units unknown) (unknown) (unknown) (no date) (unknown) (unknown) Ur Culture Indicated? (units unknown) (unknown) (unknown) (no date) (unknown) (unknown) Ur Squamous Epith Cells 5-10 /hpf H (units unknown) (unknown) (unknown) (no date) (unknown) (unknown) Ur Squamous Epith Cells (units unknown) (unknown) (unknown) (no date) (unknown) (unknown) Urine Bacteria Few (2-10) H (units unknown) (unknown) (unknown) (no date) (unknown) (unknown) Urine Bacteria (units unknown) (unknown) (unknown) (no date) (unknown) (unknown) Urine RBC None seen (units unknown) (unknown) (unknown) (no date) (unknown) (unknown) Urine RBC (units unknown) (unknown) (unknown) (no date) (unknown) (unknown) Urine WBC 5-10/hpf H (units unknown) (unknown) (unknown) (no date) (unknown) (unknown) Urine WBC (units unknown) (unknown) (unknown) (no date) (unknown) (unknown) VTE (units unknown) (unknown) (unknown) (no date) (unknown) (unknown) Vital Signs (units unknown) (unknown) (unknown) (no date) (unknown) (unknown) WBC 4.9 (units unknown) (unknown) (unknown) (no date) (unknown) (unknown) WBC (units unknown) (unknown) (unknown) (no date) (unknown) (unknown) We will follow up in orthopedic clinic in 2 weeks for suture removal. (units unknown) (unknown) (unknown) (no date) (unknown) (unknown) [Embedded Image Not Available] (units unknown) (unknown) (unknown) (no date) (unknown) (unknown) alcohol intake: current (units unknown) (unknown) (unknown) (no date) (unknown) (unknown) dry and intact. (units unknown) (unknown) (unknown) (no date) (unknown) (unknown) has a short-leg posterior splint for footdrop on the left. Dressing is clean, (units unknown) (unknown) (unknown) (no date) (unknown) (unknown) hematoma October 21, 2022 (units unknown) (unknown) (unknown) (no date) (unknown) (unknown) household members: spouse (units unknown) (unknown) (unknown) (no date) (unknown) (unknown) loss anemia and concern for UTI. (units unknown) (unknown) (unknown) (no date) (unknown) (unknown) p Incision and Drainage Wound/Hip Carolee Paulino MD (units unknown) (unknown) (unknown) (no date) (unknown) (unknown) precautions. (units unknown) (unknown) (unknown) (no date) (unknown) (unknown) received 1 unit of blood October 21, 2022. This is being followed by hospitalist. (units unknown) (unknown) (unknown) (no date) (unknown) (unknown) sentences (units unknown) (unknown) Result panel [id number] (unknown) (no date) (unknown) (unknown) (no value) (units unknown) (unknown) (unknown) (no date) (unknown) (unknown) (past 8 hours): (units unknown) (unknown) (unknown) (no date) (unknown) (unknown) 10/21/22 10/21/22 10/22/22 (units unknown) (unknown) (unknown) (no date) (unknown) (unknown) 10/21/22 17:00 (units unknown) (unknown) (unknown) (no date) (unknown) (unknown) 10/22/22 10/22/22 (units unknown) (unknown) (unknown) (no date) (unknown) (unknown) 10/22/22 05:40 (units unknown) (unknown) (unknown) (no date) (unknown) (unknown) 10/22/22 (units unknown) (unknown) (unknown) (no date) (unknown) (unknown) 05:40 05:40 (units unknown) (unknown) (unknown) (no date) (unknown) (unknown) 08:51 10/22/22 (units unknown) (unknown) (unknown) (no date) (unknown) (unknown) 13:00 (units unknown) (unknown) (unknown) (no date) (unknown) (unknown) 15:25 17:00 00:25 (units unknown) (unknown) (unknown) (no date) (unknown) (unknown) 3151 (units unknown) (unknown) (unknown) (no date) (unknown) (unknown) ALT 21 (units unknown) (unknown) (unknown) (no date) (unknown) (unknown) ALT (units unknown) (unknown) (unknown) (no date) (unknown) (unknown) AST 28 (units unknown) (unknown) (unknown) (no date) (unknown) (unknown) AST (units unknown) (unknown) (unknown) (no date) (unknown) (unknown) Abdomen:? Soft nontender, negative for organomegaly, or masses.? Bowel sounds (units unknown) (unknown) (unknown) (no date) (unknown) (unknown) Age/Sex: 72 / F (units unknown) (unknown) (unknown) (no date) (unknown) (unknown) Albumin 3.0 L (units unknown) (unknown) (unknown) (no date) (unknown) (unknown) Albumin (units unknown) (unknown) (unknown) (no date) (unknown) (unknown) Albumin/Globulin Rat io 1.0 (units unknown) (unknown) (unknown) (no date) (unknown) (unknown) Albumin/Globulin Ratio (units unknown) (unknown) (unknown) (no date) (unknown) (unknown) Alkaline Phosphatase 86 (units unknown) (unknown) (unknown) (no date) (unknown) (unknown) Alkaline Phosphatase (units unknown) (unknown) (unknown) (no date) (unknown) (unknown) BUN 17 (units unknown) (unknown) (unknown) (no date) (unknown) (unknown) BUN (units unknown) (unknown) (unknown) (no date) (unknown) (unknown) BUN/Creatinine Ratio 20.5 (units unknown) (unknown) (unknown) (no date) (unknown) (unknown) BUN/Creatinine Ratio (units unknown) (unknown) (unknown) (no date) (unknown) (unknown) Blood Pressure 123/5 0 L 118/58 L (units unknown) (unknown) (unknown) (no date) (unknown) (unknown) Calcium 8.3 L (units unknown) (unknown) (unknown) (no date) (unknown) (unknown) Calcium (units unknown) (unknown) (unknown) (no date) (unknown) (unknown) Carbon Dioxide 27 (units unknown) (unknown) (unknown) (no date) (unknown) (unknown) Carbon Dioxide (units unknown) (unknown) (unknown) (no date) (unknown) (unknown) Cardio: ? regular ra te and rhythm without extra sounds or murmurs. (units unknown) (unknown) (unknown) (no date) (unknown) (unknown) Chest:? Normal AP diameter and contour. (units unknown) (unknown) (unknown) (no date) (unknown) (unknown) Chloride 98 (units unknown) (unknown) (unknown) (no date) (unknown) (unknown) Chloride (units unknown) (unknown) (unknown) (no date) (unknown) (unknown) Creatinine 0.83 (units unknown) (unknown) (unknown) (no date) (unknown) (unknown) Creatinine (units unknown) (unknown) (unknown) (no date) (unknown) (unknown) : 1950 Acct:[id number] (units unknown) (unknown) (unknown) (no date) (unknown) (unknown) Date of Service: 10/21/22 (units unknown) (unknown) (unknown) (no date) (unknown) (unknown) Deep Vein Thrombosis/Pulmonary Embolism Present on Admission: No (units unknown) (unknown) (unknown) (no date) (unknown) (unknown) Depression (units unknown) (unknown) (unknown) (no date) (unknown) (unknown) Diverticulitis (units unknown) (unknown) (unknown) (no date) (unknown) (unknown) Estimated GFR > 60 (units unknown) (unknown) (unknown) (no date) (unknown) (unknown) Estimated GFR (units unknown) (unknown) (unknown) (no date) (unknown) (unknown) Exam Narrative: (units unknown) (unknown) (unknown) (no date) (unknown) (unknown) Exam (units unknown) (unknown) (unknown) (no date) (unknown) (unknown) Family History (units unknown) (unknown) (unknown) (no date) (unknown) (unknown) Father No problems noted. (units unknown) (unknown) (unknown) (no date) (unknown) (unknown) GERD (gastroesophage al reflux disease) (units unknown) (unknown) (unknown) (no date) (unknown) (unknown) General:? Patient is a well-developed, well-nourished elderly female, resting (units unknown) (unknown) (unknown) (no date) (unknown) (unknown) Globulin 3.1 (units unknown) (unknown) (unknown) (no date) (unknown) (unknown) Globulin (units unknown) (unknown) (unknown) (no date) (unknown) (unknown) Glucose 127 H (units unknown) (unknown) (unknown) (no date) (unknown) (unknown) Glucose (units unknown) (unknown) (unknown) (no date) (unknown) (unknown) HEENT:? Normocephali c, atraumatic, extraocular muscles intact, trachea is (units unknown) (unknown) (unknown) (no date) (unknown) (unknown) HLD (hyperlipidemia) (units unknown) (unknown) (unknown) (no date) (unknown) (unknown) Hct 23.5 L (units unknown) (unknown) (unknown) (no date) (unknown) (unknown) Hct 24.5 L (units unknown) (unknown) (unknown) (no date) (unknown) (unknown) Hearing impaired (units unknown) (unknown) (unknown) (no date) (unknown) (unknown) Hgb 7.9 L (units unknown) (unknown) (unknown) (no date) (unknown) (unknown) Hgb 8.4 L (units unknown) (unknown) (unknown) (no date) (unknown) (unknown) History of bladder surgery (units unknown) (unknown) (unknown) (no date) (unknown) (unknown) History of total lef t knee replacement (units unknown) (unknown) (unknown) (no date) (unknown) (unknown) History of total rig ht knee replacement (units unknown) (unknown) (unknown) (no date) (unknown) (unknown) Hx of left breast biopsy (units unknown) (unknown) (unknown) (no date) (unknown) (unknown) Hx of right breast biopsy (units unknown) (unknown) (unknown) (no date) (unknown) (unknown) Hx of tonsillectomy (units unknown) (unknown) (unknown) (no date) (unknown) (unknown) Interval history: (units unknown) (unknown) (unknown) (no date) (unknown) (unknown) [address] [address] (units unknown) (unknown) (unknown) (no date) (unknown) (unknown) Laboratory Results - last 24 hr (units unknown) (unknown) (unknown) (no date) (unknown) (unknown) Labs (units unknown) (unknown) (unknown) (no date) (unknown) (unknown) Labs: (units unknown) (unknown) (unknown) (no date) (unknown) (unknown) Lactate 0.7 (units unknown) (unknown) (unknown) (no date) (unknown) (unknown) Lactate (units unknown) (unknown) (unknown) (no date) (unknown) (unknown) Lungs:? Auscultation of all lung morrow are clear without wheezes or crackles (units unknown) (unknown) (unknown) (no date) (unknown) (unknown) MCH 28.0 (units unknown) (unknown) (unknown) (no date) (unknown) (unknown) MCH (units unknown) (unknown) (unknown) (no date) (unknown) (unknown) MCHC 33.7 (units unknown) (unknown) (unknown) (no date) (unknown) (unknown) MCHC (units unknown) (unknown) (unknown) (no date) (unknown) (unknown) MCV 83.2 (units unknown) (unknown) (unknown) (no date) (unknown) (unknown) MCV (units unknown) (unknown) (unknown) (no date) (unknown) (unknown) Medical History (units unknown) (unknown) (unknown) (no date) (unknown) (unknown) Mother No problems noted. (units unknown) (unknown) (unknown) (no date) (unknown) (unknown) Musculoskeletal: ? drain in place Left hip, dressing in place w/out signs of (units unknown) (unknown) (unknown) (no date) (unknown) (unknown) Narrative (units unknown) (unknown) (unknown) (no date) (unknown) (unknown) Neuro:? Alert and orientated x3, normal sensation of extremities. (units unknown) (unknown) (unknown) (no date) (unknown) (unknown) Objective (units unknown) (unknown) (unknown) (no date) (unknown) (unknown) Osteoarthritis (units unknown) (unknown) (unknown) (no date) (unknown) (unknown) Oxygen Delivery Meth od Nasal Cannula (units unknown) (unknown) (unknown) (no date) (unknown) (unknown) Oxygen Flow Rate 3 3 (units unknown) (unknown) (unknown) (no date) (unknown) (unknown) Oxygen Flow Rate 3 (units unknown) (unknown) (unknown) (no date) (unknown) (unknown) PFSH (units unknown) (unknown) (unknown) (no date) (unknown) (unknown) Patient in a good mo od resting comfortably in bed. States that pain is not an (units unknown) (unknown) (unknown) (no date) (unknown) (unknown) Patient: Barbara Garcia MR#: [id number] (units unknown) (unknown) (unknown) (no date) (unknown) (unknown) Plt Count 428 H (units unknown) (unknown) (unknown) (no date) (unknown) (unknown) Plt Count (units unknown) (unknown) (unknown) (no date) (unknown) (unknown) Potassium 3.7 (units unknown) (unknown) (unknown) (no date) (unknown) (unknown) Potassium (units unknown) (unknown) (unknown) (no date) (unknown) (unknown) Progress Note (units unknown) (unknown) (unknown) (no date) (unknown) (unknown) Provider: Charlee Parikh MD (units unknown) (unknown) (unknown) (no date) (unknown) (unknown) Psych:? Patient has a well-kept appearance, no acute mood changes or depression. (units unknown) (unknown) (unknown) (no date) (unknown) (unknown) Pulse Oximetry 96 95 (units unknown) (unknown) (unknown) (no date) (unknown) (unknown) Pulse Rate 61 73 (units unknown) (unknown) (unknown) (no date) (unknown) (unknown) Quality (units unknown) (unknown) (unknown) (no date) (unknown) (unknown) RBC 2.82 L (units unknown) (unknown) (unknown) (no date) (unknown) (unknown) RBC (units unknown) (unknown) (unknown) (no date) (unknown) (unknown) RDW 15.9 H (units unknown) (unknown) (unknown) (no date) (unknown) (unknown) RDW (units unknown) (unknown) (unknown) (no date) (unknown) (unknown) Respiratory Rate 18 20 (units unknown) (unknown) (unknown) (no date) (unknown) (unknown) Seasonal allergies (units unknown) (unknown) (unknown) (no date) (unknown) (unknown) Signed By: (units unknown) (unknown) (unknown) (no date) (unknown) (unknown) Skin:? Warm dry and intact without rashes, ulcerations or petechiae.? (units unknown) (unknown) (unknown) (no date) (unknown) (unknown) Smoking Status: Carmencita rubin smoker (units unknown) (unknown) (unknown) (no date) (unknown) (unknown) Social History (units unknown) (unknown) (unknown) (no date) (unknown) (unknown) Sodium 134 L (units unknown) (unknown) (unknown) (no date) (unknown) (unknown) Sodium (units unknown) (unknown) (unknown) (no date) (unknown) (unknown) Subjective (units unknown) (unknown) (unknown) (no date) (unknown) (unknown) Surgical History (units unknown) (unknown) (unknown) (no date) (unknown) (unknown) Temperature 98.3 F 97.5 F L (units unknown) (unknown) (unknown) (no date) (unknown) (unknown) Total Bilirubin 0.8 (units unknown) (unknown) (unknown) (no date) (unknown) (unknown) Total Bilirubin (units unknown) (unknown) (unknown) (no date) (unknown) (unknown) Total Protein 6.1 L (units unknown) (unknown) (unknown) (no date) (unknown) (unknown) Total Protein (units unknown) (unknown) (unknown) (no date) (unknown) (unknown) Ur Culture Indicated ? Specimen cultured (units unknown) (unknown) (unknown) (no date) (unknown) (unknown) Ur Culture Indicated? (units unknown) (unknown) (unknown) (no date) (unknown) (unknown) Ur Squamous Epith Cells 5-10 /hpf H (units unknown) (unknown) (unknown) (no date) (unknown) (unknown) Ur Squamous Epith Cells (units unknown) (unknown) (unknown) (no date) (unknown) (unknown) Urine Bacteria Few (2-10) H (units unknown) (unknown) (unknown) (no date) (unknown) (unknown) Urine Bacteria (units unknown) (unknown) (unknown) (no date) (unknown) (unknown) Urine RBC None seen (units unknown) (unknown) (unknown) (no date) (unknown) (unknown) Urine RBC (units unknown) (unknown) (unknown) (no date) (unknown) (unknown) Urine WBC 5-10/hpf H (units unknown) (unknown) (unknown) (no date) (unknown) (unknown) Urine WBC (units unknown) (unknown) (unknown) (no date) (unknown) (unknown) VTE (units unknown) (unknown) (unknown) (no date) (unknown) (unknown) Vital Signs (units unknown) (unknown) (unknown) (no date) (unknown) (unknown) WBC 4.9 (units unknown) (unknown) (unknown) (no date) (unknown) (unknown) WBC (units unknown) (unknown) (unknown) (no date) (unknown) (unknown) [Embedded Image Not Available] (units unknown) (unknown) (unknown) (no date) (unknown) (unknown) alcohol intake: current (units unknown) (unknown) (unknown) (no date) (unknown) (unknown) are present. (units unknown) (unknown) (unknown) (no date) (unknown) (unknown) comfortably, in no distress at this time. (units unknown) (unknown) (unknown) (no date) (unknown) (unknown) household members: spouse (units unknown) (unknown) (unknown) (no date) (unknown) (unknown) infection,? intact radial and pedal pulses are normal. (units unknown) (unknown) (unknown) (no date) (unknown) (unknown) issue right now in h er current position. Is optimistic about the outcome of (units unknown) (unknown) (unknown) (no date) (unknown) (unknown) midline. (units unknown) (unknown) (unknown) (no date) (unknown) (unknown) this recent surgery. Has no new complaints or dysuria. (units unknown) (unknown) Result panel 1415 (unknown) (no date) (unknown) (unknown) (no value) (units unknown) (unknown) (unknown) (no date) (unknown) (unknown) (past 8 hours): (units unknown) (unknown) (unknown) (no date) (unknown) (unknown) * As evidence by bladder scan (units unknown) (unknown) (unknown) (no date) (unknown) (unknown) * CBC today shows hemoglobin of 7.9. Continue to follow. (units unknown) (unknown) (unknown) (no date) (unknown) (unknown) * Licea catheter placed- Goal: urine output> 50 cc/HR (units unknown) (unknown) (unknown) (no date) (unknown) (unknown) * Gentle hydration L R at 42 cc/HR as ordered by Orthopedics (units unknown) (unknown) (unknown) (no date) (unknown) (unknown) * Monitor for bleeding, guaiac as needed (units unknown) (unknown) (unknown) (no date) (unknown) (unknown) * Monitor for signs and symptoms of infection (units unknown) (unknown) (unknown) (no date) (unknown) (unknown) * Patient has no whi te count, lactate and procalcitonin are negative (units unknown) (unknown) (unknown) (no date) (unknown) (unknown) * Patient received cefazolin in OR (units unknown) (unknown) (unknown) (no date) (unknown) (unknown) * Repeat labs in a.m. (units unknown) (unknown) (unknown) (no date) (unknown) (unknown) * S/P :H+H 7.4/21, 1 unit of blood received-repeat H+H 8.4/24.5 (units unknown) (unknown) (unknown) (no date) (unknown) (unknown) * Urine culture ordered -remains pending. We not on any antibiotics. (units unknown) (unknown) (unknown) (no date) (unknown) (unknown) * Vital signs stable. (units unknown) (unknown) (unknown) (no date) (unknown) (unknown) * Will not initiate antibiotics at this time pending culture results or s/s of (units unknown) (unknown) (unknown) (no date) (unknown) (unknown) 10/21/22 10/21/22 10/22/22 (units unknown) (unknown) (unknown) (no date) (unknown) (unknown) 10/21/22 17:00 (units unknown) (unknown) (unknown) (no date) (unknown) (unknown) 10/22/22 10/22/22 (units unknown) (unknown) (unknown) (no date) (unknown) (unknown) 10/22/22 05:40 (units unknown) (unknown) (unknown) (no date) (unknown) (unknown) 10/22/22 1512 (units unknown) (unknown) (unknown) (no date) (unknown) (unknown) 10/22/22 (units unknown) (unknown) (unknown) (no date) (unknown) (unknown) 05:40 05:40 (units unknown) (unknown) (unknown) (no date) (unknown) (unknown) 08:51 10/22/22 (units unknown) (unknown) (unknown) (no date) (unknown) (unknown) 13:00 (units unknown) (unknown) (unknown) (no date) (unknown) (unknown) 15:25 17:00 00:25 (units unknown) (unknown) (unknown) (no date) (unknown) (unknown) 3151 (units unknown) (unknown) (unknown) (no date) (unknown) (unknown) ALT 21 (units unknown) (unknown) (unknown) (no date) (unknown) (unknown) ALT (units unknown) (unknown) (unknown) (no date) (unknown) (unknown) AST 28 (units unknown) (unknown) (unknown) (no date) (unknown) (unknown) AST (units unknown) (unknown) (unknown) (no date) (unknown) (unknown) Abdomen:? Soft nontender, negative for organomegaly, or masses.? Bowel sounds (units unknown) (unknown) (unknown) (no date) (unknown) (unknown) Acute urinary retention, status postop, possible UTI (units unknown) (unknown) (unknown) (no date) (unknown) (unknown) Age/Sex: 72 / F (units unknown) (unknown) (unknown) (no date) (unknown) (unknown) Albumin 3.0 L (units unknown) (unknown) (unknown) (no date) (unknown) (unknown) Albumin (units unknown) (unknown) (unknown) (no date) (unknown) (unknown) Albumin/Globulin Rat io 1.0 (units unknown) (unknown) (unknown) (no date) (unknown) (unknown) Albumin/Globulin Ratio (units unknown) (unknown) (unknown) (no date) (unknown) (unknown) Alkaline Phosphatase 86 (units unknown) (unknown) (unknown) (no date) (unknown) (unknown) Alkaline Phosphatase (units unknown) (unknown) (unknown) (no date) (unknown) (unknown) Assessment + Plan narrative: (units unknown) (unknown) (unknown) (no date) (unknown) (unknown) Assessment + Plan (units unknown) (unknown) (unknown) (no date) (unknown) (unknown) BUN 17 (units unknown) (unknown) (unknown) (no date) (unknown) (unknown) BUN (units unknown) (unknown) (unknown) (no date) (unknown) (unknown) BUN/Creatinine Ratio 20.5 (units unknown) (unknown) (unknown) (no date) (unknown) (unknown) BUN/Creatinine Ratio (units unknown) (unknown) (unknown) (no date) (unknown) (unknown) Blood Pressure 123/5 0 L 118/58 L (units unknown) (unknown) (unknown) (no date) (unknown) (unknown) Blood loss anemia status post I+D hematoma/seroma of left hip, acute (units unknown) (unknown) (unknown) (no date) (unknown) (unknown) COVID PCR:? Negative (units unknown) (unknown) (unknown) (no date) (unknown) (unknown) Calcium 8.3 L (units unknown) (unknown) (unknown) (no date) (unknown) (unknown) Calcium (units unknown) (unknown) (unknown) (no date) (unknown) (unknown) Carbon Dioxide 27 (units unknown) (unknown) (unknown) (no date) (unknown) (unknown) Carbon Dioxide (units unknown) (unknown) (unknown) (no date) (unknown) (unknown) Cardio: ? regular ra te and rhythm without extra sounds or murmurs. (units unknown) (unknown) (unknown) (no date) (unknown) (unknown) Chest:? Normal AP diameter and contour. (units unknown) (unknown) (unknown) (no date) (unknown) (unknown) Chloride 98 (units unknown) (unknown) (unknown) (no date) (unknown) (unknown) Chloride (units unknown) (unknown) (unknown) (no date) (unknown) (unknown) Code status:? Full (units unknown) (unknown) (unknown) (no date) (unknown) (unknown) Creatinine 0.83 (units unknown) (unknown) (unknown) (no date) (unknown) (unknown) Creatinine (units unknown) (unknown) (unknown) (no date) (unknown) (unknown) : 1950 Acct:[id number] (units unknown) (unknown) (unknown) (no date) (unknown) (unknown) DVT/VTE prophylaxis: ? Medication per Dr. Paulino, SCD to right leg only (units unknown) (unknown) (unknown) (no date) (unknown) (unknown) Date of Service: 10/21/22 (units unknown) (unknown) (unknown) (no date) (unknown) (unknown) Deep Vein Thrombosis/Pulmonary Embolism Present on Admission: No (units unknown) (unknown) (unknown) (no date) (unknown) (unknown) Depression (units unknown) (unknown) (unknown) (no date) (unknown) (unknown) Diverticulitis (units unknown) (unknown) (unknown) (no date) (unknown) (unknown) Estimated GFR > 60 (units unknown) (unknown) (unknown) (no date) (unknown) (unknown) Estimated GFR (units unknown) (unknown) (unknown) (no date) (unknown) (unknown) Exam Narrative: (units unknown) (unknown) (unknown) (no date) (unknown) (unknown) Exam (units unknown) (unknown) (unknown) (no date) (unknown) (unknown) Family History (units unknown) (unknown) (unknown) (no date) (unknown) (unknown) Father No problems noted. (units unknown) (unknown) (unknown) (no date) (unknown) (unknown) GERD (gastroesophage al reflux disease) (units unknown) (unknown) (unknown) (no date) (unknown) (unknown) General:? Patient is a well-developed, well-nourished elderly female, resting (units unknown) (unknown) (unknown) (no date) (unknown) (unknown) Globulin 3.1 (units unknown) (unknown) (unknown) (no date) (unknown) (unknown) Globulin (units unknown) (unknown) (unknown) (no date) (unknown) (unknown) Glucose 127 H (units unknown) (unknown) (unknown) (no date) (unknown) (unknown) Glucose (units unknown) (unknown) (unknown) (no date) (unknown) (unknown) HEENT:? Normocephali c, atraumatic, extraocular muscles intact, trachea is (units unknown) (unknown) (unknown) (no date) (unknown) (unknown) HLD (hyperlipidemia) (units unknown) (unknown) (unknown) (no date) (unknown) (unknown) Hct 23.5 L (units unknown) (unknown) (unknown) (no date) (unknown) (unknown) Hct 24.5 L (units unknown) (unknown) (unknown) (no date) (unknown) (unknown) Hearing impaired (units unknown) (unknown) (unknown) (no date) (unknown) (unknown) Hgb 7.9 L (units unknown) (unknown) (unknown) (no date) (unknown) (unknown) Hgb 8.4 L (units unknown) (unknown) (unknown) (no date) (unknown) (unknown) History of bladder surgery (units unknown) (unknown) (unknown) (no date) (unknown) (unknown) History of total lef t knee replacement (units unknown) (unknown) (unknown) (no date) (unknown) (unknown) History of total rig ht knee replacement (units unknown) (unknown) (unknown) (no date) (unknown) (unknown) Hx of left breast biopsy (units unknown) (unknown) (unknown) (no date) (unknown) (unknown) Hx of right breast biopsy (units unknown) (unknown) (unknown) (no date) (unknown) (unknown) Hx of tonsillectomy (units unknown) (unknown) (unknown) (no date) (unknown) (unknown) Interval history: (units unknown) (unknown) (unknown) (no date) (unknown) (unknown) [address] [address] (units unknown) (unknown) (unknown) (no date) (unknown) (unknown) Laboratory Results - last 24 hr (units unknown) (unknown) (unknown) (no date) (unknown) (unknown) Labs (units unknown) (unknown) (unknown) (no date) (unknown) (unknown) Labs: (units unknown) (unknown) (unknown) (no date) (unknown) (unknown) Lactate 0.7 (units unknown) (unknown) (unknown) (no date) (unknown) (unknown) Lactate (units unknown) (unknown) (unknown) (no date) (unknown) (unknown) Lungs:? Auscultation of all lung morrow are clear without wheezes or crackles (units unknown) (unknown) (unknown) (no date) (unknown) (unknown) MCH 28.0 (units unknown) (unknown) (unknown) (no date) (unknown) (unknown) MCH (units unknown) (unknown) (unknown) (no date) (unknown) (unknown) MCHC 33.7 (units unknown) (unknown) (unknown) (no date) (unknown) (unknown) MCHC (units unknown) (unknown) (unknown) (no date) (unknown) (unknown) MCV 83.2 (units unknown) (unknown) (unknown) (no date) (unknown) (unknown) MCV (units unknown) (unknown) (unknown) (no date) (unknown) (unknown) Medical History (units unknown) (unknown) (unknown) (no date) (unknown) (unknown) Mother No problems noted. (units unknown) (unknown) (unknown) (no date) (unknown) (unknown) Musculoskeletal: ? drain in place Left hip, dressing in place w/out signs of (units unknown) (unknown) (unknown) (no date) (unknown) (unknown) Narrative (units unknown) (unknown) (unknown) (no date) (unknown) (unknown) Neuro:? Alert and orientated x3, normal sensation of extremities. (units unknown) (unknown) (unknown) (no date) (unknown) (unknown) Objective (units unknown) (unknown) (unknown) (no date) (unknown) (unknown) Osteoarthritis (units unknown) (unknown) (unknown) (no date) (unknown) (unknown) Oxygen Delivery Meth od Nasal Cannula (units unknown) (unknown) (unknown) (no date) (unknown) (unknown) Oxygen Flow Rate 3 3 (units unknown) (unknown) (unknown) (no date) (unknown) (unknown) Oxygen Flow Rate 3 (units unknown) (unknown) (unknown) (no date) (unknown) (unknown) PFSH (units unknown) (unknown) (unknown) (no date) (unknown) (unknown) Patient in a good mo od resting comfortably in bed. States that pain is not an (units unknown) (unknown) (unknown) (no date) (unknown) (unknown) Patient: Barbara Garcia MR#: [id number] (units unknown) (unknown) (unknown) (no date) (unknown) (unknown) Plt Count 428 H (units unknown) (unknown) (unknown) (no date) (unknown) (unknown) Plt Count (units unknown) (unknown) (unknown) (no date) (unknown) (unknown) Potassium 3.7 (units unknown) (unknown) (unknown) (no date) (unknown) (unknown) Potassium (units unknown) (unknown) (unknown) (no date) (unknown) (unknown) Progress Note (units unknown) (unknown) (unknown) (no date) (unknown) (unknown) Provider: Charlee Parikh MD (units unknown) (unknown) (unknown) (no date) (unknown) (unknown) Psych:? Patient has a well-kept appearance, no acute mood changes or depression. (units unknown) (unknown) (unknown) (no date) (unknown) (unknown) Pulse Oximetry 96 95 (units unknown) (unknown) (unknown) (no date) (unknown) (unknown) Pulse Rate 61 73 (units unknown) (unknown) (unknown) (no date) (unknown) (unknown) Quality (units unknown) (unknown) (unknown) (no date) (unknown) (unknown) RBC 2.82 L (units unknown) (unknown) (unknown) (no date) (unknown) (unknown) RBC (units unknown) (unknown) (unknown) (no date) (unknown) (unknown) RDW 15.9 H (units unknown) (unknown) (unknown) (no date) (unknown) (unknown) RDW (units unknown) (unknown) (unknown) (no date) (unknown) (unknown) Respiratory Rate 18 20 (units unknown) (unknown) (unknown) (no date) (unknown) (unknown) Seasonal allergies (units unknown) (unknown) (unknown) (no date) (unknown) (unknown) Signed By:<Electronically signed by Charlee Parikh MD> (units unknown) (unknown) (unknown) (no date) (unknown) (unknown) Skin:? Warm dry and intact without rashes, ulcerations or petechiae.? (units unknown) (unknown) (unknown) (no date) (unknown) (unknown) Smoking Status: Carmencita r smoker (units unknown) (unknown) (unknown) (no date) (unknown) (unknown) Social History (units unknown) (unknown) (unknown) (no date) (unknown) (unknown) Sodium 134 L (units unknown) (unknown) (unknown) (no date) (unknown) (unknown) Sodium (units unknown) (unknown) (unknown) (no date) (unknown) (unknown) Subjective (units unknown) (unknown) (unknown) (no date) (unknown) (unknown) Surgical History (units unknown) (unknown) (unknown) (no date) (unknown) (unknown) Surrogate decision maker:? Nathanael Isai spouse (units unknown) (unknown) (unknown) (no date) (unknown) (unknown) Temperature 98.3 F 97.5 F L (units unknown) (unknown) (unknown) (no date) (unknown) (unknown) Total Bilirubin 0.8 (units unknown) (unknown) (unknown) (no date) (unknown) (unknown) Total Bilirubin (units unknown) (unknown) (unknown) (no date) (unknown) (unknown) Total Protein 6.1 L (units unknown) (unknown) (unknown) (no date) (unknown) (unknown) Total Protein (units unknown) (unknown) (unknown) (no date) (unknown) (unknown) Ur Culture Indicated ? Specimen cultured (units unknown) (unknown) (unknown) (no date) (unknown) (unknown) Ur Culture Indicated? (units unknown) (unknown) (unknown) (no date) (unknown) (unknown) Ur Squamous Epith Cells 5-10 /hpf H (units unknown) (unknown) (unknown) (no date) (unknown) (unknown) Ur Squamous Epith Cells (units unknown) (unknown) (unknown) (no date) (unknown) (unknown) Urine Bacteria Few (2-10) H (units unknown) (unknown) (unknown) (no date) (unknown) (unknown) Urine Bacteria (units unknown) (unknown) (unknown) (no date) (unknown) (unknown) Urine RBC None seen (units unknown) (unknown) (unknown) (no date) (unknown) (unknown) Urine RBC (units unknown) (unknown) (unknown) (no date) (unknown) (unknown) Urine WBC 5-10/hpf H (units unknown) (unknown) (unknown) (no date) (unknown) (unknown) Urine WBC (units unknown) (unknown) (unknown) (no date) (unknown) (unknown) VTE (units unknown) (unknown) (unknown) (no date) (unknown) (unknown) Vital Signs (units unknown) (unknown) (unknown) (no date) (unknown) (unknown) WBC 4.9 (units unknown) (unknown) (unknown) (no date) (unknown) (unknown) WBC (units unknown) (unknown) (unknown) (no date) (unknown) (unknown) [Embedded Image Not Available] (units unknown) (unknown) (unknown) (no date) (unknown) (unknown) alcohol intake: current (units unknown) (unknown) (unknown) (no date) (unknown) (unknown) are present. (units unknown) (unknown) (unknown) (no date) (unknown) (unknown) comfortably, in no distress at this time. (units unknown) (unknown) (unknown) (no date) (unknown) (unknown) household members: spouse (units unknown) (unknown) (unknown) (no date) (unknown) (unknown) infection (units unknown) (unknown) (unknown) (no date) (unknown) (unknown) infection,? intact radial and pedal pulses are normal. (units unknown) (unknown) (unknown) (no date) (unknown) (unknown) issue right now in h er current position. Is optimistic about the outcome of (units unknown) (unknown) (unknown) (no date) (unknown) (unknown) midline. (units unknown) (unknown) (unknown) (no date) (unknown) (unknown) this recent surgery. Has no new complaints or dysuria. (units unknown) (unknown) Result panel 1416 (unknown) (no date) (unknown) (unknown) (no value) (units unknown) (unknown) (unknown) (no date) (unknown) (unknown) NO GROWTH AFTER 48 HOURS (units unknown) (unknown) Result panel 1417 (unknown) (no date) (unknown) (unknown) (no value) (units unknown) (unknown) (unknown) (no date) (unknown) (unknown) NO GROWTH AFTER 48 HOURS (units unknown) (unknown) Result panel 1418 (unknown) (no date) (unknown) (unknown) 0 /ul (unknown) (unknown) (no date) (unknown) (unknown) 0 /ul (unknown) (unknown) (no date) (unknown) (unknown) 0.1 % (unknown) (unknown) (no date) (unknown) (unknown) 0.1 % (unknown) (unknown) (no date) (unknown) (unknown) 1400 /ul (unknown) (unknown) (no date) (unknown) (unknown) 15.1 % (unknown) (unknown) (no date) (unknown) (unknown) 15.7 % (unknown) (unknown) (no date) (unknown) (unknown) 2.85 x10 6/ul (unknown) (unknown) (no date) (unknown) (unknown) 23.8 % (unknown) (unknown) (no date) (unknown) (unknown) 28.9 pg (unknown) (unknown) (no date) (unknown) (unknown) 34.6 % (unknown) (unknown) (no date) (unknown) (unknown) 547 x10 3/ul (unknown) (unknown) (no date) (unknown) (unknown) 7200 /ul (unknown) (unknown) (no date) (unknown) (unknown) 75.4 % (unknown) (unknown) (no date) (unknown) (unknown) 8.2 g/dl (unknown) (unknown) (no date) (unknown) (unknown) 83.8 fl (unknown) (unknown) (no date) (unknown) (unknown) 9.3 % (unknown) (unknown) (no date) (unknown) (unknown) 9.6 x10 3/ul (unknown) (unknown) (no date) (unknown) (unknown) 9.6 x10 3/ul (unknown) (unknown) (no date) (unknown) (unknown) 900 /ul (unknown) Result panel 1419 (unknown) (no date) (unknown) (unknown) 1.06 mg/dl (unknown) (unknown) (no date) (unknown) (unknown) 117 mg/dl (unknown) (unknown) (no date) (unknown) (unknown) 117 mg/dl (unknown) (unknown) (no date) (unknown) (unknown) 134 mmol/l (unknown) (unknown) (no date) (unknown) (unknown) 17.9 (units unknown) (unknown) (unknown) (no date) (unknown) (unknown) 19 mg/dl (unknown) (unknown) (no date) (unknown) (unknown) 3.7 mmol/l (unknown) (unknown) (no date) (unknown) (unknown) 30 mmol/l (unknown) (unknown) (no date) (unknown) (unknown) 56 ml/min (unknown) (unknown) (no date) (unknown) (unknown) 56 ml/min (unknown) (unknown) (no date) (unknown) (unknown) 8.3 mg/dl (unknown) (unknown) (no date) (unknown) (unknown) 97 mmol/l (unknown) Result panel 1420 (unknown) (no date) (unknown) (unknown) (no value) (units unknown) (unknown) (unknown) (no date) (unknown) (unknown) (past 8 hours): (units unknown) (unknown) (unknown) (no date) (unknown) (unknown) 00:31 10/23/22 (units unknown) (unknown) (unknown) (no date) (unknown) (unknown) 04:31 (units unknown) (unknown) (unknown) (no date) (unknown) (unknown) 04:45 04:45 (units unknown) (unknown) (unknown) (no date) (unknown) (unknown) 10/23/22 04:45 (units unknown) (unknown) (unknown) (no date) (unknown) (unknown) 10/23/22 10/23/22 (units unknown) (unknown) (unknown) (no date) (unknown) (unknown) 10/23/22 0827 (units unknown) (unknown) (unknown) (no date) (unknown) (unknown) 10/23/22 (units unknown) (unknown) (unknown) (no date) (unknown) (unknown) 3151 (units unknown) (unknown) (unknown) (no date) (unknown) (unknown) 72-year-old female resting comfortably in bed in no apparent distress. Mild (units unknown) (unknown) (unknown) (no date) (unknown) (unknown) Actual Procedure [place] e Surgeon (units unknown) (unknown) (unknown) (no date) (unknown) (unknown) Age/Sex: 72 / F (units unknown) (unknown) (unknown) (no date) (unknown) (unknown) Aspirin for DVT prophylaxis. (units unknown) (unknown) (unknown) (no date) (unknown) (unknown) Assessment + Plan Post-op (units unknown) (unknown) (unknown) (no date) (unknown) (unknown) BUN 19 H (units unknown) (unknown) (unknown) (no date) (unknown) (unknown) BUN/Creatinine Ratio 17.9 (units unknown) (unknown) (unknown) (no date) (unknown) (unknown) Baso # (Auto) 0 (units unknown) (unknown) (unknown) (no date) (unknown) (unknown) Baso % (Auto) 0.1 (units unknown) (unknown) (unknown) (no date) (unknown) (unknown) Blood Pressure 112/5 3 L 119/55 L (units unknown) (unknown) (unknown) (no date) (unknown) (unknown) Calcium 8.3 L (units unknown) (unknown) (unknown) (no date) (unknown) (unknown) Carbon Dioxide 30 (units unknown) (unknown) (unknown) (no date) (unknown) (unknown) Chloride 97 L (units unknown) (unknown) (unknown) (no date) (unknown) (unknown) Const (units unknown) (unknown) (unknown) (no date) (unknown) (unknown) Creatinine 1.06 H (units unknown) (unknown) (unknown) (no date) (unknown) (unknown) : 1950 Acct:[id number] (units unknown) (unknown) (unknown) (no date) (unknown) (unknown) Date Patient Seen: 10/23/22 (units unknown) (unknown) (unknown) (no date) (unknown) (unknown) Date of Service: 10/21/22 (units unknown) (unknown) (unknown) (no date) (unknown) (unknown) Deep Vein Thrombosis/Pulmonary Embolism Present on Admission: No (units unknown) (unknown) (unknown) (no date) (unknown) (unknown) Depression (units unknown) (unknown) (unknown) (no date) (unknown) (unknown) Discontinue drain (units unknown) (unknown) (unknown) (no date) (unknown) (unknown) Diverticulitis (units unknown) (unknown) (unknown) (no date) (unknown) (unknown) Effort + Inspection: normal respiratory effort and able to speak in complete (units unknown) (unknown) (unknown) (no date) (unknown) (unknown) Eos # (Auto) 0 (units unknown) (unknown) (unknown) (no date) (unknown) (unknown) Eos % (Auto) 0.1 L (units unknown) (unknown) (unknown) (no date) (unknown) (unknown) Estimated GFR 56 L (units unknown) (unknown) (unknown) (no date) (unknown) (unknown) Exam Narrative: (units unknown) (unknown) (unknown) (no date) (unknown) (unknown) Exam (units unknown) (unknown) (unknown) (no date) (unknown) (unknown) Family History (units unknown) (unknown) (unknown) (no date) (unknown) (unknown) Father No problems noted. (units unknown) (unknown) (unknown) (no date) (unknown) (unknown) Fraction of Inspired Oxygen 32 (units unknown) (unknown) (unknown) (no date) (unknown) (unknown) GERD (gastroesophage al reflux disease) (units unknown) (unknown) (unknown) (no date) (unknown) (unknown) General: cooperative and comfortable (units unknown) (unknown) (unknown) (no date) (unknown) (unknown) Global precautions with full weight-bearing and avoiding hip abductor exercises (units unknown) (unknown) (unknown) (no date) (unknown) (unknown) Glucose 117 H (units unknown) (unknown) (unknown) (no date) (unknown) (unknown) HLD (hyperlipidemia) (units unknown) (unknown) (unknown) (no date) (unknown) (unknown) Hct 23.8 L (units unknown) (unknown) (unknown) (no date) (unknown) (unknown) Hearing impaired (units unknown) (unknown) (unknown) (no date) (unknown) (unknown) Hgb 8.2 L (units unknown) (unknown) (unknown) (no date) (unknown) (unknown) History of bladder surgery (units unknown) (unknown) (unknown) (no date) (unknown) (unknown) History of total lef t knee replacement (units unknown) (unknown) (unknown) (no date) (unknown) (unknown) History of total rig ht knee replacement (units unknown) (unknown) (unknown) (no date) (unknown) (unknown) Hx of left breast biopsy (units unknown) (unknown) (unknown) (no date) (unknown) (unknown) Hx of right breast biopsy (units unknown) (unknown) (unknown) (no date) (unknown) (unknown) Hx of tonsillectomy (units unknown) (unknown) (unknown) (no date) (unknown) (unknown) Interval history: (units unknown) (unknown) (unknown) (no date) (unknown) (unknown) [address] [address] (units unknown) (unknown) (unknown) (no date) (unknown) (unknown) Laboratory Results - last 24 hr (units unknown) (unknown) (unknown) (no date) (unknown) (unknown) Labs (units unknown) (unknown) (unknown) (no date) (unknown) (unknown) Labs: (units unknown) (unknown) (unknown) (no date) (unknown) (unknown) Likely discharge aliza e tomorrow if stable per Internal Medicine (units unknown) (unknown) (unknown) (no date) (unknown) (unknown) Lymph # (Auto) 1400 (units unknown) (unknown) (unknown) (no date) (unknown) (unknown) Lymph % (Auto) 15.1 L (units unknown) (unknown) (unknown) (no date) (unknown) (unknown) MCH 28.9 (units unknown) (unknown) (unknown) (no date) (unknown) (unknown) MCHC 34.6 (units unknown) (unknown) (unknown) (no date) (unknown) (unknown) MCV 83.8 (units unknown) (unknown) (unknown) (no date) (unknown) (unknown) Medical History (units unknown) (unknown) (unknown) (no date) (unknown) (unknown) [place] # (Auto) 900 (units unknown) (unknown) (unknown) (no date) (unknown) (unknown) [place] % (Auto) 9.3 (units unknown) (unknown) (unknown) (no date) (unknown) (unknown) Mother No problems noted. (units unknown) (unknown) (unknown) (no date) (unknown) (unknown) Narrative (units unknown) (unknown) (unknown) (no date) (unknown) (unknown) Neut # (Auto) 7200 H (units unknown) (unknown) (unknown) (no date) (unknown) (unknown) Neut % (Auto) 75.4 H (units unknown) (unknown) (unknown) (no date) (unknown) (unknown) Nutritional Appearance: well nourished (units unknown) (unknown) (unknown) (no date) (unknown) (unknown) Objective (units unknown) (unknown) (unknown) (no date) (unknown) (unknown) Operation Date: 10/21/22 12:00 (units unknown) (unknown) (unknown) (no date) (unknown) (unknown) Orientation: alert (units unknown) (unknown) (unknown) (no date) (unknown) (unknown) Osteoarthritis (units unknown) (unknown) (unknown) (no date) (unknown) (unknown) Oxygen Delivery Meth od Nasal Cannula (units unknown) (unknown) (unknown) (no date) (unknown) (unknown) Oxygen Flow Rate 0 0 (units unknown) (unknown) (unknown) (no date) (unknown) (unknown) Oxygen Flow Rate 0 (units unknown) (unknown) (unknown) (no date) (unknown) (unknown) PFSH (units unknown) (unknown) (unknown) (no date) (unknown) (unknown) Patient requires AFO for footdrop left lower extremity, bracing for ambulation (units unknown) (unknown) (unknown) (no date) (unknown) (unknown) Patient's pain is [id number]. No fever or chills. No nausea vomiting. (units unknown) (unknown) (unknown) (no date) (unknown) (unknown) Patient: Barbara Garcia MR#: [id number] (units unknown) (unknown) (unknown) (no date) (unknown) (unknown) Plt Count 547 H (units unknown) (unknown) (unknown) (no date) (unknown) (unknown) Postoperative day: 2 (units unknown) (unknown) (unknown) (no date) (unknown) (unknown) Postoperative plan narrative: Standard total hip replacement protocol with (units unknown) (unknown) (unknown) (no date) (unknown) (unknown) Postoperative status narrative: Status post irrigation and evacuation left hip (units unknown) (unknown) (unknown) (no date) (unknown) (unknown) Postoperative (units unknown) (unknown) (unknown) (no date) (unknown) (unknown) Potassium 3.7 (units unknown) (unknown) (unknown) (no date) (unknown) (unknown) Procedures (units unknown) (unknown) (unknown) (no date) (unknown) (unknown) Procedures: (units unknown) (unknown) (unknown) (no date) (unknown) (unknown) Progress Note (units unknown) (unknown) (unknown) (no date) (unknown) (unknown) Provider: Paulino Braden P.A-C (units unknown) (unknown) (unknown) (no date) (unknown) (unknown) Pulse Oximetry 96 95 (units unknown) (unknown) (unknown) (no date) (unknown) (unknown) Pulse Rate 77 79 (units unknown) (unknown) (unknown) (no date) (unknown) (unknown) Quality (units unknown) (unknown) (unknown) (no date) (unknown) (unknown) RBC 2.85 L (units unknown) (unknown) (unknown) (no date) (unknown) (unknown) RDW 15.7 H (units unknown) (unknown) (unknown) (no date) (unknown) (unknown) Resp (units unknown) (unknown) (unknown) (no date) (unknown) (unknown) Respiratory Rate 16 18 (units unknown) (unknown) (unknown) (no date) (unknown) (unknown) SaO2/FiO2 Ratio 296 (units unknown) (unknown) (unknown) (no date) (unknown) (unknown) Seasonal allergies (units unknown) (unknown) (unknown) (no date) (unknown) (unknown) Signed By:<Electronically signed by Paulino Brdaen> (units unknown) (unknown) (unknown) (no date) (unknown) (unknown) Smoking Status: Alejandralane caryn smoker (units unknown) (unknown) (unknown) (no date) (unknown) (unknown) Social History (units unknown) (unknown) (unknown) (no date) (unknown) (unknown) Sodium 134 L (units unknown) (unknown) (unknown) (no date) (unknown) (unknown) Subjective (units unknown) (unknown) (unknown) (no date) (unknown) (unknown) Surgical History (units unknown) (unknown) (unknown) (no date) (unknown) (unknown) Temperature 97.4 F L 97.4 F L (units unknown) (unknown) (unknown) (no date) (unknown) (unknown) Time Patient Seen: 08:17 (units unknown) (unknown) (unknown) (no date) (unknown) (unknown) VTE (units unknown) (unknown) (unknown) (no date) (unknown) (unknown) Vital Signs (units unknown) (unknown) (unknown) (no date) (unknown) (unknown) WBC 9.6 D (units unknown) (unknown) (unknown) (no date) (unknown) (unknown) [Embedded Image Not Available] (units unknown) (unknown) (unknown) (no date) (unknown) (unknown) alcohol intake: current (units unknown) (unknown) (unknown) (no date) (unknown) (unknown) and incision and flexion greater than 90?. (units unknown) (unknown) (unknown) (no date) (unknown) (unknown) because of her trochanteric repair. She should work to keep her foot midline (units unknown) (unknown) (unknown) (no date) (unknown) (unknown) drainage on the dressing. Patient able to wiggle toes. Sensation grossly (units unknown) (unknown) (unknown) (no date) (unknown) (unknown) for fracture, anemia , left foot drop (units unknown) (unknown) (unknown) (no date) (unknown) (unknown) hematoma after recen t left total hip revision arthroplasty with cerclage wiring (units unknown) (unknown) (unknown) (no date) (unknown) (unknown) household members: spouse (units unknown) (unknown) (unknown) (no date) (unknown) (unknown) intact to light touc h distal left lower extremity. Patient unable to dorsiflex (units unknown) (unknown) (unknown) (no date) (unknown) (unknown) or plantar flex her left foot. (units unknown) (unknown) (unknown) (no date) (unknown) (unknown) p Incision and Drainage Wound/Hip Carolee Paulino MD (units unknown) (unknown) (unknown) (no date) (unknown) (unknown) sentences (units unknown) (unknown) (unknown) (no date) (unknown) (unknown) until fitted with proper AFO (units unknown) (unknown) (unknown) (no date) (unknown) (unknown) weight bearing as tolerated and primarily posterior hip precautions. (units unknown) (unknown) Result panel 1421 (unknown) (no date) (unknown) (unknown) (no value) (units unknown) (unknown) (unknown) (no date) (unknown) (unknown) (past 8 hours): (units unknown) (unknown) (unknown) (no date) (unknown) (unknown) ADDENDUM (units unknown) (unknown) (unknown) (no date) (unknown) (unknown) 00:31 05/16/23 (units unknown) (unknown) (unknown) (no date) (unknown) (unknown) 04:31 (units unknown) (unknown) (unknown) (no date) (unknown) (unknown) 04:45 04:45 (units unknown) (unknown) (unknown) (no date) (unknown) (unknown) 10/23/22 04:45 (units unknown) (unknown) (unknown) (no date) (unknown) (unknown) 10/23/22 10/23/22 (units unknown) (unknown) (unknown) (no date) (unknown) (unknown) 10/23/22 0827 (units unknown) (unknown) (unknown) (no date) (unknown) (unknown) 10/23/22 0829 (units unknown) (unknown) (unknown) (no date) (unknown) (unknown) 10/23/22 (units unknown) (unknown) (unknown) (no date) (unknown) (unknown) 3151 (units unknown) (unknown) (unknown) (no date) (unknown) (unknown) 72-year-old female resting comfortably in bed in no apparent distress. Mild (units unknown) (unknown) (unknown) (no date) (unknown) (unknown) Actual Procedure [place] e Surgeon (units unknown) (unknown) (unknown) (no date) (unknown) (unknown) Addendum Documented By: Paulino Braden (units unknown) (unknown) (unknown) (no date) (unknown) (unknown) Addendum Signed By: <Electronically signed by Paulino Lo (units unknown) (unknown) (unknown) (no date) (unknown) (unknown) Age/Sex: 72 / F (units unknown) (unknown) (unknown) (no date) (unknown) (unknown) Aspirin for DVT prophylaxis. (units unknown) (unknown) (unknown) (no date) (unknown) (unknown) Assessment + Plan Post-op (units unknown) (unknown) (unknown) (no date) (unknown) (unknown) BUN 19 H (units unknown) (unknown) (unknown) (no date) (unknown) (unknown) BUN/Creatinine Ratio 17.9 (units unknown) (unknown) (unknown) (no date) (unknown) (unknown) Baso # (Auto) 0 (units unknown) (unknown) (unknown) (no date) (unknown) (unknown) Baso % (Auto) 0.1 (units unknown) (unknown) (unknown) (no date) (unknown) (unknown) Blood Pressure 112/5 3 L 119/55 L (units unknown) (unknown) (unknown) (no date) (unknown) (unknown) Calcium 8.3 L (units unknown) (unknown) (unknown) (no date) (unknown) (unknown) Carbon Dioxide 30 (units unknown) (unknown) (unknown) (no date) (unknown) (unknown) Chloride 97 L (units unknown) (unknown) (unknown) (no date) (unknown) (unknown) Const (units unknown) (unknown) (unknown) (no date) (unknown) (unknown) Creatinine 1.06 H (units unknown) (unknown) (unknown) (no date) (unknown) (unknown) : 1950 Acct:[id number] (units unknown) (unknown) (unknown) (no date) (unknown) (unknown) Date Patient Seen: 10/23/22 (units unknown) (unknown) (unknown) (no date) (unknown) (unknown) Date of Service: 10/21/22 (units unknown) (unknown) (unknown) (no date) (unknown) (unknown) Deep Vein Thrombosis/Pulmonary Embolism Present on Admission: No (units unknown) (unknown) (unknown) (no date) (unknown) (unknown) Depression (units unknown) (unknown) (unknown) (no date) (unknown) (unknown) Discontinue drain (units unknown) (unknown) (unknown) (no date) (unknown) (unknown) Diverticulitis (units unknown) (unknown) (unknown) (no date) (unknown) (unknown) Drain output 70 mL serosanguineous fluid last shift (units unknown) (unknown) (unknown) (no date) (unknown) (unknown) Effort + Inspection: normal respiratory effort and able to speak in complete (units unknown) (unknown) (unknown) (no date) (unknown) (unknown) Eos # (Auto) 0 (units unknown) (unknown) (unknown) (no date) (unknown) (unknown) Eos % (Auto) 0.1 L (units unknown) (unknown) (unknown) (no date) (unknown) (unknown) Estimated GFR 56 L (units unknown) (unknown) (unknown) (no date) (unknown) (unknown) Exam Narrative: (units unknown) (unknown) (unknown) (no date) (unknown) (unknown) Exam (units unknown) (unknown) (unknown) (no date) (unknown) (unknown) Family History (units unknown) (unknown) (unknown) (no date) (unknown) (unknown) Father No problems noted. (units unknown) (unknown) (unknown) (no date) (unknown) (unknown) Fraction of Inspired Oxygen 32 (units unknown) (unknown) (unknown) (no date) (unknown) (unknown) GERD (gastroesophage al reflux disease) (units unknown) (unknown) (unknown) (no date) (unknown) (unknown) General: cooperative and comfortable (units unknown) (unknown) (unknown) (no date) (unknown) (unknown) Global precautions with full weight-bearing and avoiding hip abductor exercises (units unknown) (unknown) (unknown) (no date) (unknown) (unknown) Glucose 117 H (units unknown) (unknown) (unknown) (no date) (unknown) (unknown) HLD (hyperlipidemia) (units unknown) (unknown) (unknown) (no date) (unknown) (unknown) Hct 23.8 L (units unknown) (unknown) (unknown) (no date) (unknown) (unknown) Hearing impaired (units unknown) (unknown) (unknown) (no date) (unknown) (unknown) Hgb 8.2 L (units unknown) (unknown) (unknown) (no date) (unknown) (unknown) History of bladder surgery (units unknown) (unknown) (unknown) (no date) (unknown) (unknown) History of total lef t knee replacement (units unknown) (unknown) (unknown) (no date) (unknown) (unknown) History of total rig ht knee replacement (units unknown) (unknown) (unknown) (no date) (unknown) (unknown) Hx of left breast biopsy (units unknown) (unknown) (unknown) (no date) (unknown) (unknown) Hx of right breast biopsy (units unknown) (unknown) (unknown) (no date) (unknown) (unknown) Hx of tonsillectomy (units unknown) (unknown) (unknown) (no date) (unknown) (unknown) Interval history: (units unknown) (unknown) (unknown) (no date) (unknown) (unknown) [address] [address] (units unknown) (unknown) (unknown) (no date) (unknown) (unknown) Laboratory Results - last 24 hr (units unknown) (unknown) (unknown) (no date) (unknown) (unknown) Labs (units unknown) (unknown) (unknown) (no date) (unknown) (unknown) Labs: (units unknown) (unknown) (unknown) (no date) (unknown) (unknown) Likely discharge aliza e tomorrow if stable per Internal Medicine (units unknown) (unknown) (unknown) (no date) (unknown) (unknown) Lymph # (Auto) 1400 (units unknown) (unknown) (unknown) (no date) (unknown) (unknown) Lymph % (Auto) 15.1 L (units unknown) (unknown) (unknown) (no date) (unknown) (unknown) MCH 28.9 (units unknown) (unknown) (unknown) (no date) (unknown) (unknown) MCHC 34.6 (units unknown) (unknown) (unknown) (no date) (unknown) (unknown) MCV 83.8 (units unknown) (unknown) (unknown) (no date) (unknown) (unknown) Medical History (units unknown) (unknown) (unknown) (no date) (unknown) (unknown) [place] # (Auto) 900 (units unknown) (unknown) (unknown) (no date) (unknown) (unknown) [place] % (Auto) 9.3 (units unknown) (unknown) (unknown) (no date) (unknown) (unknown) Mother No problems noted. (units unknown) (unknown) (unknown) (no date) (unknown) (unknown) Narrative (units unknown) (unknown) (unknown) (no date) (unknown) (unknown) Neut # (Auto) 7200 H (units unknown) (unknown) (unknown) (no date) (unknown) (unknown) Neut % (Auto) 75.4 H (units unknown) (unknown) (unknown) (no date) (unknown) (unknown) Nutritional Appearance: well nourished (units unknown) (unknown) (unknown) (no date) (unknown) (unknown) Objective (units unknown) (unknown) (unknown) (no date) (unknown) (unknown) Operation Date: 10/21/22 12:00 (units unknown) (unknown) (unknown) (no date) (unknown) (unknown) Orientation: alert (units unknown) (unknown) (unknown) (no date) (unknown) (unknown) Osteoarthritis (units unknown) (unknown) (unknown) (no date) (unknown) (unknown) Oxygen Delivery Meth od Nasal Cannula (units unknown) (unknown) (unknown) (no date) (unknown) (unknown) Oxygen Flow Rate 0 0 (units unknown) (unknown) (unknown) (no date) (unknown) (unknown) Oxygen Flow Rate 0 (units unknown) (unknown) (unknown) (no date) (unknown) (unknown) PFSH (units unknown) (unknown) (unknown) (no date) (unknown) (unknown) Patient requires AFO for footdrop left lower extremity, bracing for ambulation (units unknown) (unknown) (unknown) (no date) (unknown) (unknown) Patient's pain is clcj-zo-ohilwtyy. No fever or chills. No nausea vomiting. (units unknown) (unknown) (unknown) (no date) (unknown) (unknown) Patient: Barbara Garcia MR#: [id number] (units unknown) (unknown) (unknown) (no date) (unknown) (unknown) Plt Count 547 H (units unknown) (unknown) (unknown) (no date) (unknown) (unknown) Postoperative day: 2 (units unknown) (unknown) (unknown) (no date) (unknown) (unknown) Postoperative plan narrative: Standard total hip replacement protocol with (units unknown) (unknown) (unknown) (no date) (unknown) (unknown) Postoperative status narrative: Status post irrigation and evacuation left hip (units unknown) (unknown) (unknown) (no date) (unknown) (unknown) Postoperative (units unknown) (unknown) (unknown) (no date) (unknown) (unknown) Potassium 3.7 (units unknown) (unknown) (unknown) (no date) (unknown) (unknown) Procedures (units unknown) (unknown) (unknown) (no date) (unknown) (unknown) Procedures: (units unknown) (unknown) (unknown) (no date) (unknown) (unknown) Progress Note (units unknown) (unknown) (unknown) (no date) (unknown) (unknown) Provider: Paulino Braden P.A-C (units unknown) (unknown) (unknown) (no date) (unknown) (unknown) Pulse Oximetry 96 95 (units unknown) (unknown) (unknown) (no date) (unknown) (unknown) Pulse Rate 77 79 (units unknown) (unknown) (unknown) (no date) (unknown) (unknown) Quality (units unknown) (unknown) (unknown) (no date) (unknown) (unknown) RBC 2.85 L (units unknown) (unknown) (unknown) (no date) (unknown) (unknown) RDW 15.7 H (units unknown) (unknown) (unknown) (no date) (unknown) (unknown) Resp (units unknown) (unknown) (unknown) (no date) (unknown) (unknown) Respiratory Rate 16 18 (units unknown) (unknown) (unknown) (no date) (unknown) (unknown) SaO2/FiO2 Ratio 296 (units unknown) (unknown) (unknown) (no date) (unknown) (unknown) Seasonal allergies (units unknown) (unknown) (unknown) (no date) (unknown) (unknown) Signed By:<Electronically signed by Paulino Braden> (units unknown) (unknown) (unknown) (no date) (unknown) (unknown) Smoking Status: Carmenc[place] rubin smoker (units unknown) (unknown) (unknown) (no date) (unknown) (unknown) Social History (units unknown) (unknown) (unknown) (no date) (unknown) (unknown) Sodium 134 L (units unknown) (unknown) (unknown) (no date) (unknown) (unknown) Subjective (units unknown) (unknown) (unknown) (no date) (unknown) (unknown) Surgical History (units unknown) (unknown) (unknown) (no date) (unknown) (unknown) Temperature 97.4 F L 97.4 F L (units unknown) (unknown) (unknown) (no date) (unknown) (unknown) Time Patient Seen: 08:17 (units unknown) (unknown) (unknown) (no date) (unknown) (unknown) VTE (units unknown) (unknown) (unknown) (no date) (unknown) (unknown) Vital Signs (units unknown) (unknown) (unknown) (no date) (unknown) (unknown) WBC 9.6 D (units unknown) (unknown) (unknown) (no date) (unknown) (unknown) [Embedded Image Not Available] (units unknown) (unknown) (unknown) (no date) (unknown) (unknown) alcohol intake: current (units unknown) (unknown) (unknown) (no date) (unknown) (unknown) and incision and flexion greater than 90?. (units unknown) (unknown) (unknown) (no date) (unknown) (unknown) because of her trochanteric repair. She should work to keep her foot midline (units unknown) (unknown) (unknown) (no date) (unknown) (unknown) drainage on the dressing. Patient able to wiggle toes. Sensation grossly (units unknown) (unknown) (unknown) (no date) (unknown) (unknown) for fracture, anemia , left foot drop (units unknown) (unknown) (unknown) (no date) (unknown) (unknown) hematoma after recen t left total hip revision arthroplasty with cerclage wiring (units unknown) (unknown) (unknown) (no date) (unknown) (unknown) household members: spouse (units unknown) (unknown) (unknown) (no date) (unknown) (unknown) intact to light touc h distal left lower extremity. Patient unable to dorsiflex (units unknown) (unknown) (unknown) (no date) (unknown) (unknown) k> 10/23/22 0829 (units unknown) (unknown) (unknown) (no date) (unknown) (unknown) or plantar flex her left foot. (units unknown) (unknown) (unknown) (no date) (unknown) (unknown) p Incision and Drainage Wound/Hip Carolee Paulino MD (units unknown) (unknown) (unknown) (no date) (unknown) (unknown) sentences (units unknown) (unknown) (unknown) (no date) (unknown) (unknown) until fitted with proper AFO (units unknown) (unknown) (unknown) (no date) (unknown) (unknown) weight bearing as tolerated and primarily posterior hip precautions. (units unknown) (unknown) Result panel 1422 (unknown) (no date) (unknown) (unknown) No growth. (units unknown) (unknown) Result panel 1423 (unknown) (no date) (unknown) (unknown) (no value) (units unknown) (unknown) (unknown) (no date) (unknown) (unknown) (past 8 hours): (units unknown) (unknown) (unknown) (no date) (unknown) (unknown) * As evidence by bladder scan (units unknown) (unknown) (unknown) (no date) (unknown) (unknown) * CBC today shows hemoglobin of 7.9. Continue to follow. (units unknown) (unknown) (unknown) (no date) (unknown) (unknown) * Licea catheter placed- Goal: urine output> 50 cc/HR (units unknown) (unknown) (unknown) (no date) (unknown) (unknown) * Gentle hydration L R at 42 cc/HR as ordered by Orthopedics (units unknown) (unknown) (unknown) (no date) (unknown) (unknown) * Monitor for bleeding, guaiac as needed (units unknown) (unknown) (unknown) (no date) (unknown) (unknown) * Monitor for signs and symptoms of infection (units unknown) (unknown) (unknown) (no date) (unknown) (unknown) * Patient has no whi te count, lactate and procalcitonin are negative (units unknown) (unknown) (unknown) (no date) (unknown) (unknown) * Patient received cefazolin in OR (units unknown) (unknown) (unknown) (no date) (unknown) (unknown) * Repeat labs in a.m. (units unknown) (unknown) (unknown) (no date) (unknown) (unknown) * S/P :H+H 7.4/21, 1 unit of blood received-repeat H+H 8.4/24.5 (units unknown) (unknown) (unknown) (no date) (unknown) (unknown) * Urine culture ordered -remains pending. We not on any antibiotics. (units unknown) (unknown) (unknown) (no date) (unknown) (unknown) * Vital signs stable. (units unknown) (unknown) (unknown) (no date) (unknown) (unknown) * Will not initiate antibiotics at this time pending culture results or s/s of (units unknown) (unknown) (unknown) (no date) (unknown) (unknown) 04:31 (units unknown) (unknown) (unknown) (no date) (unknown) (unknown) 04:45 04:45 (units unknown) (unknown) (unknown) (no date) (unknown) (unknown) 10/23/22 04:45 (units unknown) (unknown) (unknown) (no date) (unknown) (unknown) 10/23/22 10/23/22 (units unknown) (unknown) (unknown) (no date) (unknown) (unknown) 10/23/22 (units unknown) (unknown) (unknown) (no date) (unknown) (unknown) 3151 (units unknown) (unknown) (unknown) (no date) (unknown) (unknown) Abdomen:? Soft nontender, negative for organomegaly, or masses.? Bowel sounds (units unknown) (unknown) (unknown) (no date) (unknown) (unknown) Acute urinary retention, status postop, possible UTI (units unknown) (unknown) (unknown) (no date) (unknown) (unknown) Age/Sex: 72 / F (units unknown) (unknown) (unknown) (no date) (unknown) (unknown) Assessment + Plan narrative: (units unknown) (unknown) (unknown) (no date) (unknown) (unknown) Assessment + Plan (units unknown) (unknown) (unknown) (no date) (unknown) (unknown) BUN 19 H (units unknown) (unknown) (unknown) (no date) (unknown) (unknown) BUN/Creatinine Ratio 17.9 (units unknown) (unknown) (unknown) (no date) (unknown) (unknown) Baso # (Auto) 0 (units unknown) (unknown) (unknown) (no date) (unknown) (unknown) Baso % (Auto) 0.1 (units unknown) (unknown) (unknown) (no date) (unknown) (unknown) Blood Pressure 119/5 5 L (units unknown) (unknown) (unknown) (no date) (unknown) (unknown) Blood loss anemia status post I+D hematoma/seroma of left hip, acute (units unknown) (unknown) (unknown) (no date) (unknown) (unknown) COVID PCR:? Negative (units unknown) (unknown) (unknown) (no date) (unknown) (unknown) Calcium 8.3 L (units unknown) (unknown) (unknown) (no date) (unknown) (unknown) Carbon Dioxide 30 (units unknown) (unknown) (unknown) (no date) (unknown) (unknown) Cardio: ? regular ra te and rhythm without extra sounds or murmurs. (units unknown) (unknown) (unknown) (no date) (unknown) (unknown) Chest:? Normal AP diameter and contour. (units unknown) (unknown) (unknown) (no date) (unknown) (unknown) Chloride 97 L (units unknown) (unknown) (unknown) (no date) (unknown) (unknown) Code status:? Full (units unknown) (unknown) (unknown) (no date) (unknown) (unknown) Creatinine 1.06 H (units unknown) (unknown) (unknown) (no date) (unknown) (unknown) : 1950 Acct:[id number] (units unknown) (unknown) (unknown) (no date) (unknown) (unknown) DVT/VTE prophylaxis: ? Medication per Dr. Paulino, SCD to right leg only (units unknown) (unknown) (unknown) (no date) (unknown) (unknown) Date of Service: 10/21/22 (units unknown) (unknown) (unknown) (no date) (unknown) (unknown) Deep Vein Thrombosis/Pulmonary Embolism Present on Admission: No (units unknown) (unknown) (unknown) (no date) (unknown) (unknown) Depression (units unknown) (unknown) (unknown) (no date) (unknown) (unknown) Diverticulitis (units unknown) (unknown) (unknown) (no date) (unknown) (unknown) Eos # (Auto) 0 (units unknown) (unknown) (unknown) (no date) (unknown) (unknown) Eos % (Auto) 0.1 L (units unknown) (unknown) (unknown) (no date) (unknown) (unknown) Estimated GFR 56 L (units unknown) (unknown) (unknown) (no date) (unknown) (unknown) Exam Narrative: (units unknown) (unknown) (unknown) (no date) (unknown) (unknown) Exam (units unknown) (unknown) (unknown) (no date) (unknown) (unknown) Family History (units unknown) (unknown) (unknown) (no date) (unknown) (unknown) Father No problems noted. (units unknown) (unknown) (unknown) (no date) (unknown) (unknown) Fraction of Inspired Oxygen 32 (units unknown) (unknown) (unknown) (no date) (unknown) (unknown) GERD (gastroesophage al reflux disease) (units unknown) (unknown) (unknown) (no date) (unknown) (unknown) General:? Patient is a well-developed, well-nourished elderly female, resting (units unknown) (unknown) (unknown) (no date) (unknown) (unknown) Glucose 117 H (units unknown) (unknown) (unknown) (no date) (unknown) (unknown) HEENT:? Normocephali c, atraumatic, extraocular muscles intact, trachea is (units unknown) (unknown) (unknown) (no date) (unknown) (unknown) HLD (hyperlipidemia) (units unknown) (unknown) (unknown) (no date) (unknown) (unknown) Hct 23.8 L (units unknown) (unknown) (unknown) (no date) (unknown) (unknown) Hearing impaired (units unknown) (unknown) (unknown) (no date) (unknown) (unknown) Hgb 8.2 L (units unknown) (unknown) (unknown) (no date) (unknown) (unknown) History of bladder surgery (units unknown) (unknown) (unknown) (no date) (unknown) (unknown) History of total lef t knee replacement (units unknown) (unknown) (unknown) (no date) (unknown) (unknown) History of total rig ht knee replacement (units unknown) (unknown) (unknown) (no date) (unknown) (unknown) Hx of left breast biopsy (units unknown) (unknown) (unknown) (no date) (unknown) (unknown) Hx of right breast biopsy (units unknown) (unknown) (unknown) (no date) (unknown) (unknown) Hx of tonsillectomy (units unknown) (unknown) (unknown) (no date) (unknown) (unknown) [address] [address] (units unknown) (unknown) (unknown) (no date) (unknown) (unknown) Laboratory Results - last 24 hr (units unknown) (unknown) (unknown) (no date) (unknown) (unknown) Labs (units unknown) (unknown) (unknown) (no date) (unknown) (unknown) Labs: (units unknown) (unknown) (unknown) (no date) (unknown) (unknown) Lungs:? Auscultation of all lung morrow are clear without wheezes or crackles (units unknown) (unknown) (unknown) (no date) (unknown) (unknown) Lymph # (Auto) 1400 (units unknown) (unknown) (unknown) (no date) (unknown) (unknown) Lymph % (Auto) 15.1 L (units unknown) (unknown) (unknown) (no date) (unknown) (unknown) MCH 28.9 (units unknown) (unknown) (unknown) (no date) (unknown) (unknown) MCHC 34.6 (units unknown) (unknown) (unknown) (no date) (unknown) (unknown) MCV 83.8 (units unknown) (unknown) (unknown) (no date) (unknown) (unknown) Medical History (units unknown) (unknown) (unknown) (no date) (unknown) (unknown) [place] # (Auto) 900 (units unknown) (unknown) (unknown) (no date) (unknown) (unknown) [place] % (Auto) 9.3 (units unknown) (unknown) (unknown) (no date) (unknown) (unknown) Mother No problems noted. (units unknown) (unknown) (unknown) (no date) (unknown) (unknown) Musculoskeletal: ? drain in place Left hip, dressing in place w/out signs of (units unknown) (unknown) (unknown) (no date) (unknown) (unknown) Narrative (units unknown) (unknown) (unknown) (no date) (unknown) (unknown) Neuro:? Alert and orientated x3, normal sensation of extremities. (units unknown) (unknown) (unknown) (no date) (unknown) (unknown) Neut # (Auto) 7200 H (units unknown) (unknown) (unknown) (no date) (unknown) (unknown) Neut % (Auto) 75.4 H (units unknown) (unknown) (unknown) (no date) (unknown) (unknown) Objective (units unknown) (unknown) (unknown) (no date) (unknown) (unknown) Osteoarthritis (units unknown) (unknown) (unknown) (no date) (unknown) (unknown) Oxygen Delivery Meth od Nasal Cannula (units unknown) (unknown) (unknown) (no date) (unknown) (unknown) Oxygen Flow Rate 0 (units unknown) (unknown) (unknown) (no date) (unknown) (unknown) PFSH (units unknown) (unknown) (unknown) (no date) (unknown) (unknown) Patient: Barbara Garcia MR#: [id number] (units unknown) (unknown) (unknown) (no date) (unknown) (unknown) Plt Count 547 H (units unknown) (unknown) (unknown) (no date) (unknown) (unknown) Potassium 3.7 (units unknown) (unknown) (unknown) (no date) (unknown) (unknown) Progress Note (units unknown) (unknown) (unknown) (no date) (unknown) (unknown) Provider: Sharan Smith D.O. (units unknown) (unknown) (unknown) (no date) (unknown) (unknown) Psych:? Patient has a well-kept appearance, no acute mood changes or depression. (units unknown) (unknown) (unknown) (no date) (unknown) (unknown) Pulse Oximetry 95 (units unknown) (unknown) (unknown) (no date) (unknown) (unknown) Pulse Rate 79 (units unknown) (unknown) (unknown) (no date) (unknown) (unknown) Quality (units unknown) (unknown) (unknown) (no date) (unknown) (unknown) RBC 2.85 L (units unknown) (unknown) (unknown) (no date) (unknown) (unknown) RDW 15.7 H (units unknown) (unknown) (unknown) (no date) (unknown) (unknown) Respiratory Rate 18 (units unknown) (unknown) (unknown) (no date) (unknown) (unknown) SaO2/FiO2 Ratio 296 (units unknown) (unknown) (unknown) (no date) (unknown) (unknown) Seasonal allergies (units unknown) (unknown) (unknown) (no date) (unknown) (unknown) Signed By: (units unknown) (unknown) (unknown) (no date) (unknown) (unknown) Skin:? Warm dry and intact without rashes, ulcerations or petechiae.? (units unknown) (unknown) (unknown) (no date) (unknown) (unknown) Smoking Status: Carmencita rubin smoker (units unknown) (unknown) (unknown) (no date) (unknown) (unknown) Social History (units unknown) (unknown) (unknown) (no date) (unknown) (unknown) Sodium 134 L (units unknown) (unknown) (unknown) (no date) (unknown) (unknown) Surgical History (units unknown) (unknown) (unknown) (no date) (unknown) (unknown) Surrogate decision maker:? Nathanael Garcia spouse (units unknown) (unknown) (unknown) (no date) (unknown) (unknown) Temperature 97.4 F L (units unknown) (unknown) (unknown) (no date) (unknown) (unknown) VTE (units unknown) (unknown) (unknown) (no date) (unknown) (unknown) Vital Signs (units unknown) (unknown) (unknown) (no date) (unknown) (unknown) WBC 9.6 D (units unknown) (unknown) (unknown) (no date) (unknown) (unknown) [Embedded Image Not Available] (units unknown) (unknown) (unknown) (no date) (unknown) (unknown) alcohol intake: current (units unknown) (unknown) (unknown) (no date) (unknown) (unknown) are present. (units unknown) (unknown) (unknown) (no date) (unknown) (unknown) comfortably, in no distress at this time. (units unknown) (unknown) (unknown) (no date) (unknown) (unknown) household members: spouse (units unknown) (unknown) (unknown) (no date) (unknown) (unknown) infection (units unknown) (unknown) (unknown) (no date) (unknown) (unknown) infection,? intact radial and pedal pulses are normal. (units unknown) (unknown) (unknown) (no date) (unknown) (unknown) midline. (units unknown) (unknown) Result panel 1424 (unknown) (no date) (unknown) (unknown) (no value) (units unknown) (unknown) (unknown) (no date) (unknown) (unknown) (past 8 hours): (units unknown) (unknown) (unknown) (no date) (unknown) (unknown) * CBC today shows hemoglobin of 7.9. Continue to follow. (units unknown) (unknown) (unknown) (no date) (unknown) (unknown) * Licea catheter placed- Goal: urine output> 50 cc/HR (units unknown) (unknown) (unknown) (no date) (unknown) (unknown) * Gentle hydration L R at 42 cc/HR as ordered by Orthopedics (units unknown) (unknown) (unknown) (no date) (unknown) (unknown) * Hgb stable at 8.2 (units unknown) (unknown) (unknown) (no date) (unknown) (unknown) * Monitor for bleeding, guaiac as needed (units unknown) (unknown) (unknown) (no date) (unknown) (unknown) * Monitor for signs and symptoms of infection (units unknown) (unknown) (unknown) (no date) (unknown) (unknown) * Patient has no whi te count, lactate and procalcitonin are negative (units unknown) (unknown) (unknown) (no date) (unknown) (unknown) * Patient received cefazolin in OR (units unknown) (unknown) (unknown) (no date) (unknown) (unknown) * Retention evidencd by bladder scan (units unknown) (unknown) (unknown) (no date) (unknown) (unknown) * S/P :H+H 7.4/21, 1 unit of blood received-repeat H+H 8.4/24.5 (units unknown) (unknown) (unknown) (no date) (unknown) (unknown) * Urine culture negative, no abx needed (units unknown) (unknown) (unknown) (no date) (unknown) (unknown) * Vital signs stable. (units unknown) (unknown) (unknown) (no date) (unknown) (unknown) * drain management p er ortho (units unknown) (unknown) (unknown) (no date) (unknown) (unknown) * pull licea and attempt voiding trial, if unsuccessful can replace and patient (units unknown) (unknown) (unknown) (no date) (unknown) (unknown) 04:31 (units unknown) (unknown) (unknown) (no date) (unknown) (unknown) 04:45 04:45 (units unknown) (unknown) (unknown) (no date) (unknown) (unknown) 10/23/22 04:45 (units unknown) (unknown) (unknown) (no date) (unknown) (unknown) 10/23/22 10/23/22 (units unknown) (unknown) (unknown) (no date) (unknown) (unknown) 10/23/22 1108 (units unknown) (unknown) (unknown) (no date) (unknown) (unknown) 10/23/22 (units unknown) (unknown) (unknown) (no date) (unknown) (unknown) 3151 (units unknown) (unknown) (unknown) (no date) (unknown) (unknown) Abdomen:? Soft nontender, negative for organomegaly, or masses.? Bowel sounds (units unknown) (unknown) (unknown) (no date) (unknown) (unknown) Acute urinary retention, status postop, UTI ruled out (units unknown) (unknown) (unknown) (no date) (unknown) (unknown) Age/Sex: 72 / F (units unknown) (unknown) (unknown) (no date) (unknown) (unknown) Assessment + Plan narrative: (units unknown) (unknown) (unknown) (no date) (unknown) (unknown) Assessment + Plan (units unknown) (unknown) (unknown) (no date) (unknown) (unknown) BUN 19 H (units unknown) (unknown) (unknown) (no date) (unknown) (unknown) BUN/Creatinine Ratio 17.9 (units unknown) (unknown) (unknown) (no date) (unknown) (unknown) Baso # (Auto) 0 (units unknown) (unknown) (unknown) (no date) (unknown) (unknown) Baso % (Auto) 0.1 (units unknown) (unknown) (unknown) (no date) (unknown) (unknown) Blood Pressure 119/5 5 L (units unknown) (unknown) (unknown) (no date) (unknown) (unknown) Blood loss anemia status post I+D hematoma/seroma of left hip, acute, stable (units unknown) (unknown) (unknown) (no date) (unknown) (unknown) COVID PCR:? Negative (units unknown) (unknown) (unknown) (no date) (unknown) (unknown) Calcium 8.3 L (units unknown) (unknown) (unknown) (no date) (unknown) (unknown) Carbon Dioxide 30 (units unknown) (unknown) (unknown) (no date) (unknown) (unknown) Cardio: ? regular ra te and rhythm without extra sounds or murmurs. (units unknown) (unknown) (unknown) (no date) (unknown) (unknown) Chest:? Normal AP diameter and contour. (units unknown) (unknown) (unknown) (no date) (unknown) (unknown) Chloride 97 L (units unknown) (unknown) (unknown) (no date) (unknown) (unknown) Code status:? Full (units unknown) (unknown) (unknown) (no date) (unknown) (unknown) Creatinine 1.06 H (units unknown) (unknown) (unknown) (no date) (unknown) (unknown) : 1950 Acct:[id number] (units unknown) (unknown) (unknown) (no date) (unknown) (unknown) DVT/VTE prophylaxis: ? Medication per Dr. Paulino, SCD to right leg only (units unknown) (unknown) (unknown) (no date) (unknown) (unknown) Date of Service: 10/21/22 (units unknown) (unknown) (unknown) (no date) (unknown) (unknown) Deep Vein Thrombosis/Pulmonary Embolism Present on Admission: No (units unknown) (unknown) (unknown) (no date) (unknown) (unknown) Depression (units unknown) (unknown) (unknown) (no date) (unknown) (unknown) Diverticulitis (units unknown) (unknown) (unknown) (no date) (unknown) (unknown) Eos # (Auto) 0 (units unknown) (unknown) (unknown) (no date) (unknown) (unknown) Eos % (Auto) 0.1 L (units unknown) (unknown) (unknown) (no date) (unknown) (unknown) Estimated GFR 56 L (units unknown) (unknown) (unknown) (no date) (unknown) (unknown) Exam Narrative: (units unknown) (unknown) (unknown) (no date) (unknown) (unknown) Exam (units unknown) (unknown) (unknown) (no date) (unknown) (unknown) Family History (units unknown) (unknown) (unknown) (no date) (unknown) (unknown) Father No problems noted. (units unknown) (unknown) (unknown) (no date) (unknown) (unknown) Fraction of Inspired Oxygen 32 (units unknown) (unknown) (unknown) (no date) (unknown) (unknown) GERD (gastroesophage al reflux disease) (units unknown) (unknown) (unknown) (no date) (unknown) (unknown) General:? Patient is a well-developed, well-nourished elderly female, resting (units unknown) (unknown) (unknown) (no date) (unknown) (unknown) Glucose 117 H (units unknown) (unknown) (unknown) (no date) (unknown) (unknown) HEENT:? Normocephali c, atraumatic, extraocular muscles intact, trachea is (units unknown) (unknown) (unknown) (no date) (unknown) (unknown) HLD (hyperlipidemia) (units unknown) (unknown) (unknown) (no date) (unknown) (unknown) Hct 23.8 L (units unknown) (unknown) (unknown) (no date) (unknown) (unknown) Hearing impaired (units unknown) (unknown) (unknown) (no date) (unknown) (unknown) Hgb 8.2 L (units unknown) (unknown) (unknown) (no date) (unknown) (unknown) History of bladder surgery (units unknown) (unknown) (unknown) (no date) (unknown) (unknown) History of total lef t knee replacement (units unknown) (unknown) (unknown) (no date) (unknown) (unknown) History of total rig ht knee replacement (units unknown) (unknown) (unknown) (no date) (unknown) (unknown) Hx of left breast biopsy (units unknown) (unknown) (unknown) (no date) (unknown) (unknown) Hx of right breast biopsy (units unknown) (unknown) (unknown) (no date) (unknown) (unknown) Hx of tonsillectomy (units unknown) (unknown) (unknown) (no date) (unknown) (unknown) Interval history: (units unknown) (unknown) (unknown) (no date) (unknown) (unknown) [address] [address] (units unknown) (unknown) (unknown) (no date) (unknown) (unknown) Laboratory Results - last 24 hr (units unknown) (unknown) (unknown) (no date) (unknown) (unknown) Labs (units unknown) (unknown) (unknown) (no date) (unknown) (unknown) Labs: (units unknown) (unknown) (unknown) (no date) (unknown) (unknown) Lungs:? Auscultation of all lung morrow are clear without wheezes or crackles (units unknown) (unknown) (unknown) (no date) (unknown) (unknown) Lymph # (Auto) 1400 (units unknown) (unknown) (unknown) (no date) (unknown) (unknown) Lymph % (Auto) 15.1 L (units unknown) (unknown) (unknown) (no date) (unknown) (unknown) MCH 28.9 (units unknown) (unknown) (unknown) (no date) (unknown) (unknown) MCHC 34.6 (units unknown) (unknown) (unknown) (no date) (unknown) (unknown) MCV 83.8 (units unknown) (unknown) (unknown) (no date) (unknown) (unknown) Medical History (units unknown) (unknown) (unknown) (no date) (unknown) (unknown) Medicine will sign o ff today. Thank you for allowing us to participate in the (units unknown) (unknown) (unknown) (no date) (unknown) (unknown) [place] # (Auto) 900 (units unknown) (unknown) (unknown) (no date) (unknown) (unknown) [place] % (Auto) 9.3 (units unknown) (unknown) (unknown) (no date) (unknown) (unknown) Mother No problems noted. (units unknown) (unknown) (unknown) (no date) (unknown) (unknown) Musculoskeletal: ? drain in place Left hip, dressing in place w/out signs of (units unknown) (unknown) (unknown) (no date) (unknown) (unknown) Narrative (units unknown) (unknown) (unknown) (no date) (unknown) (unknown) Neuro:? Alert and orientated x3, normal sensation of extremities. (units unknown) (unknown) (unknown) (no date) (unknown) (unknown) Neut # (Auto) 7200 H (units unknown) (unknown) (unknown) (no date) (unknown) (unknown) Neut % (Auto) 75.4 H (units unknown) (unknown) (unknown) (no date) (unknown) (unknown) Objective (units unknown) (unknown) (unknown) (no date) (unknown) (unknown) Osteoarthritis (units unknown) (unknown) (unknown) (no date) (unknown) (unknown) Oxygen Delivery Meth od Nasal Cannula (units unknown) (unknown) (unknown) (no date) (unknown) (unknown) Oxygen Flow Rate 0 (units unknown) (unknown) (unknown) (no date) (unknown) (unknown) PFSH (units unknown) (unknown) (unknown) (no date) (unknown) (unknown) Patient having ongoi ng pain and asking for tylenol to supplement her oxy and (units unknown) (unknown) (unknown) (no date) (unknown) (unknown) Patient: Barbara Garcia MR#: [id number] (units unknown) (unknown) (unknown) (no date) (unknown) (unknown) Plt Count 547 H (units unknown) (unknown) (unknown) (no date) (unknown) (unknown) Potassium 3.7 (units unknown) (unknown) (unknown) (no date) (unknown) (unknown) Progress Note (units unknown) (unknown) (unknown) (no date) (unknown) (unknown) Provider: Sharan Smith D.O. (units unknown) (unknown) (unknown) (no date) (unknown) (unknown) Psych:? Patient has a well-kept appearance, no acute mood changes or depression. (units unknown) (unknown) (unknown) (no date) (unknown) (unknown) Pulse Oximetry 95 (units unknown) (unknown) (unknown) (no date) (unknown) (unknown) Pulse Rate 79 (units unknown) (unknown) (unknown) (no date) (unknown) (unknown) Quality (units unknown) (unknown) (unknown) (no date) (unknown) (unknown) RBC 2.85 L (units unknown) (unknown) (unknown) (no date) (unknown) (unknown) RDW 15.7 H (units unknown) (unknown) (unknown) (no date) (unknown) (unknown) Respiratory Rate 18 (units unknown) (unknown) (unknown) (no date) (unknown) (unknown) SaO2/FiO2 Ratio 296 (units unknown) (unknown) (unknown) (no date) (unknown) (unknown) Seasonal allergies (units unknown) (unknown) (unknown) (no date) (unknown) (unknown) Signed By:<Electronically signed by Sharan Smith D.O.> (units unknown) (unknown) (unknown) (no date) (unknown) (unknown) Skin:? Warm dry and intact without rashes, ulcerations or petechiae.? (units unknown) (unknown) (unknown) (no date) (unknown) (unknown) Smoking Status: Carmenc[place] r smoker (units unknown) (unknown) (unknown) (no date) (unknown) (unknown) Social History (units unknown) (unknown) (unknown) (no date) (unknown) (unknown) Sodium 134 L (units unknown) (unknown) (unknown) (no date) (unknown) (unknown) Subjective (units unknown) (unknown) (unknown) (no date) (unknown) (unknown) Surgical History (units unknown) (unknown) (unknown) (no date) (unknown) (unknown) Surrogate decision maker:? Nathanael Garcia spouse (units unknown) (unknown) (unknown) (no date) (unknown) (unknown) Temperature 97.4 F L (units unknown) (unknown) (unknown) (no date) (unknown) (unknown) VTE (units unknown) (unknown) (unknown) (no date) (unknown) (unknown) Vital Signs (units unknown) (unknown) (unknown) (no date) (unknown) (unknown) WBC 9.6 D (units unknown) (unknown) (unknown) (no date) (unknown) (unknown) [Embedded Image Not Available] (units unknown) (unknown) (unknown) (no date) (unknown) (unknown) alcohol intake: current (units unknown) (unknown) (unknown) (no date) (unknown) (unknown) are present. (units unknown) (unknown) (unknown) (no date) (unknown) (unknown) better. Urine cultur e with no growth. (units unknown) (unknown) (unknown) (no date) (unknown) (unknown) care of this patient . Should you have any further questions, do not hesitate to (units unknown) (unknown) (unknown) (no date) (unknown) (unknown) comfortably, in no distress at this time. (units unknown) (unknown) (unknown) (no date) (unknown) (unknown) dilaudid. She would prefer to stay one more night to get pain under control (units unknown) (unknown) (unknown) (no date) (unknown) (unknown) household members: spouse (units unknown) (unknown) (unknown) (no date) (unknown) (unknown) infection,? intact radial and pedal pulses are normal. (units unknown) (unknown) (unknown) (no date) (unknown) (unknown) midline. (units unknown) (unknown) (unknown) (no date) (unknown) (unknown) speak with us direct ly or call us. (units unknown) (unknown) (unknown) (no date) (unknown) (unknown) will need f/u outpatient with urology (units unknown) (unknown) Result panel 1425 (unknown) (no date) (unknown) (unknown) (no value) (units unknown) (unknown) (unknown) (no date) (unknown) (unknown) GNBGram negative bacilli (units unknown) (unknown) (unknown) (no date) (unknown) (unknown) Identification and Sensitivity to Follow (units unknown) (unknown) (unknown) (no date) (unknown) (unknown) Moderate WBCs (units unknown) (unknown) (unknown) (no date) (unknown) (unknown) No organisms seen (units unknown) (unknown) (unknown) (no date) (unknown) (unknown) SCANT (units unknown) (unknown) (unknown) (no date) (unknown) (unknown) Scant growth - Mixed skin deneen (units unknown) (unknown) (unknown) (no date) (unknown) (unknown) Test not performed (units unknown) (unknown) Result panel 1426 (unknown) (no date) (unknown) (unknown) (no value) (units unknown) (unknown) (unknown) (no date) (unknown) (unknown) GNBGram negative bacilli (units unknown) (unknown) (unknown) (no date) (unknown) (unknown) Identification and Sensitivity to Follow (units unknown) (unknown) (unknown) (no date) (unknown) (unknown) Moderate WBCs (units unknown) (unknown) (unknown) (no date) (unknown) (unknown) No organisms seen (units unknown) (unknown) (unknown) (no date) (unknown) (unknown) SCANT (units unknown) (unknown) (unknown) (no date) (unknown) (unknown) Scant growth - Mixed skin deneen (units unknown) (unknown) (unknown) (no date) (unknown) (unknown) Test not performed (units unknown) (unknown) Result panel 1427 (unknown) (no date) (unknown) (unknown) (no value) (units unknown) (unknown) (unknown) (no date) (unknown) (unknown) NO GROWTH AFTER 72 HOURS (units unknown) (unknown) Result panel 1428 (unknown) (no date) (unknown) (unknown) (no value) (units unknown) (unknown) (unknown) (no date) (unknown) (unknown) NO GROWTH AFTER 72 HOURS (units unknown) (unknown) Result panel 1429 (unknown) (no date) (unknown) (unknown) (no value) (units unknown) (unknown) (unknown) (no date) (unknown) (unknown) >=32 (units unknown) (unknown) (unknown) (no date) (unknown) (unknown) >=64 (units unknown) (unknown) (unknown) (no date) (unknown) (unknown) <=0.12 (units unknown) (unknown) (unknown) (no date) (unknown) (unknown) <=0.25 (units unknown) (unknown) (unknown) (no date) (unknown) (unknown) <=0.5 (units unknown) (unknown) (unknown) (no date) (unknown) (unknown) <=1 (units unknown) (unknown) (unknown) (no date) (unknown) (unknown) <=2 (units unknown) (unknown) (unknown) (no date) (unknown) (unknown) <=20 (units unknown) (unknown) (unknown) (no date) (unknown) (unknown) <=4 (units unknown) (unknown) (unknown) (no date) (unknown) (unknown) <=8 (units unknown) (unknown) (unknown) (no date) (unknown) (unknown) 0.5 (units unknown) (unknown) (unknown) (no date) (unknown) (unknown) 1 (units unknown) (unknown) (unknown) (no date) (unknown) (unknown) 4 (units unknown) (unknown) (unknown) (no date) (unknown) (unknown) 8 (units unknown) (unknown) (unknown) (no date) (unknown) (unknown) ENTCPXEnterobacter cloacae complex (units unknown) (unknown) (unknown) (no date) (unknown) (unknown) Moderate WBCs (units unknown) (unknown) (unknown) (no date) (unknown) (unknown) No Further Workup (units unknown) (unknown) (unknown) (no date) (unknown) (unknown) No organisms seen (units unknown) (unknown) (unknown) (no date) (unknown) (unknown) PSEAERPseudomonas aeruginosa (units unknown) (unknown) (unknown) (no date) (unknown) (unknown) SCANT (units unknown) (unknown) (unknown) (no date) (unknown) (unknown) Scant growth - Mixed skin deneen (units unknown) (unknown) (unknown) (no date) (unknown) (unknown) Test not performed (units unknown) (unknown) Result panel 1430 (unknown) (no date) (unknown) (unknown) (no value) (units unknown) (unknown) (unknown) (no date) (unknown) (unknown) (The patient has an appointment with Dr. River on 10/31/2022 9:30 a.m (units unknown) (unknown) (unknown) (no date) (unknown) (unknown) (The patient has an appointment with Dr. River on 10/31/2022 9:30 a.m\ (units unknown) (unknown) (unknown) (no date) (unknown) (unknown) (past 8 hours): (units unknown) (unknown) (unknown) (no date) (unknown) (unknown) 04:00 10/24/22 (units unknown) (unknown) (unknown) (no date) (unknown) (unknown) 10/21/22 03:58 (units unknown) (unknown) (unknown) (no date) (unknown) (unknown) 10/21/22 15:52 (units unknown) (unknown) (unknown) (no date) (unknown) (unknown) 10/22/22 10:44 (units unknown) (unknown) (unknown) (no date) (unknown) (unknown) 10/22/22 11:08 (units unknown) (unknown) (unknown) (no date) (unknown) (unknown) 10/22/22 12:40 (units unknown) (unknown) (unknown) (no date) (unknown) (unknown) 10/23/22 04:45 (units unknown) (unknown) (unknown) (no date) (unknown) (unknown) 10/24/22 (units unknown) (unknown) (unknown) (no date) (unknown) (unknown) 10/31/2022 930 a.m. (units unknown) (unknown) (unknown) (no date) (unknown) (unknown) 06:41 10/24/22 (units unknown) (unknown) (unknown) (no date) (unknown) (unknown) 08:00 (units unknown) (unknown) (unknown) (no date) (unknown) (unknown) 1 - 2 tab PO BID (units unknown) (unknown) (unknown) (no date) (unknown) (unknown) 1 cap PO DAILY PRN (Reason: GI Upset) (units unknown) (unknown) (unknown) (no date) (unknown) (unknown) 10 mg PO DAILY PRN (Reason: Seasonal allergies) (units unknown) (unknown) (unknown) (no date) (unknown) (unknown) 10 mg PO DAILY (units unknown) (unknown) (unknown) (no date) (unknown) (unknown) 10 mg PO Q3HR PRN (Reason: Pain, Moderate (4-6)) Qty: 60 0RF (units unknown) (unknown) (unknown) (no date) (unknown) (unknown) 10 mg PO Q8HR PRN (Reason: Spasms) Qty: 40 0RF (units unknown) (unknown) (unknown) (no date) (unknown) (unknown) 100 mg PO BID PRN (Reason: constipation) Qty: 30 0RF (units unknown) (unknown) (unknown) (no date) (unknown) (unknown) 100 mg PO BID Qty: 2 0 0RF (units unknown) (unknown) (unknown) (no date) (unknown) (unknown) 17 gm PO DAILY Qty: 30 0RF (units unknown) (unknown) (unknown) (no date) (unknown) (unknown) 20 mg PO BEDTIME (units unknown) (unknown) (unknown) (no date) (unknown) (unknown) 20 mg PO DAILY (units unknown) (unknown) (unknown) (no date) (unknown) (unknown) 25 mg PO TID-QID PRN (Reason: itching) Qty: 60 0RF (units unknown) (unknown) (unknown) (no date) (unknown) (unknown) [address]) (units unknown) (unknown) (unknown) (no date) (unknown) (unknown) 3151 (units unknown) (unknown) (unknown) (no date) (unknown) (unknown) 5 mg PO Q4-6H PRN (Reason: Pain, Moderate (4-6)) Qty: 60 0RF (units unknown) (unknown) (unknown) (no date) (unknown) (unknown) 650 mg PO Q6H MDD Ma x 3000 mg per day PRN (Reason: fever or pain) Qty: 90 0RF (units unknown) (unknown) (unknown) (no date) (unknown) (unknown) 81 mg PO BID 42 Days Qty: 84 0RF (units unknown) (unknown) (unknown) (no date) (unknown) (unknown) Activity: The megha t will be maintained on a standard total hip replacement (units unknown) (unknown) (unknown) (no date) (unknown) (unknown) Age/Sex: 72 / F (units unknown) (unknown) (unknown) (no date) (unknown) (unknown) Paulino Braden PA-C (units unknown) (unknown) (unknown) (no date) (unknown) (unknown) Anesthesia Type: General and Local (units unknown) (unknown) (unknown) (no date) (unknown) (unknown) [place] [address] (units unknown) (unknown) (unknown) (no date) (unknown) (unknown) Applied: drain(s) (Medium Hemovac drain left thigh) (units unknown) (unknown) (unknown) (no date) (unknown) (unknown) Blood Pressure 102/5 3 L 130/59 L 137/70 (units unknown) (unknown) (unknown) (no date) (unknown) (unknown) Blood products transfused: none (units unknown) (unknown) (unknown) (no date) (unknown) (unknown) Chief complaint: Lef t hip pain (units unknown) (unknown) (unknown) (no date) (unknown) (unknown) Click Yes if Unassisted: Yes (units unknown) (unknown) (unknown) (no date) (unknown) (unknown) Closure Type: primary (units unknown) (unknown) (unknown) (no date) (unknown) (unknown) Cognitive/behavioral status at discharge: at baseline, oriented (units unknown) (unknown) (unknown) (no date) (unknown) (unknown) Cold/Heat Therapy: I ce to hip as needed (units unknown) (unknown) (unknown) (no date) (unknown) (unknown) Comment: PHP left, WBAT( No abductor strengthening) (units unknown) (unknown) (unknown) (no date) (unknown) (unknown) Comment: Snf (units unknown) (unknown) (unknown) (no date) (unknown) (unknown) Comment: (units unknown) (unknown) (unknown) (no date) (unknown) (unknown) Consent was signed. (units unknown) (unknown) (unknown) (no date) (unknown) (unknown) Consult to Discharge Planning Routine (units unknown) (unknown) (unknown) (no date) (unknown) (unknown) Consult to Occupational Therapy Evaluate + Treat (units unknown) (unknown) (unknown) (no date) (unknown) (unknown) Consult to Physical Therapy Evaluate + Treat (units unknown) (unknown) (unknown) (no date) (unknown) (unknown) Consult to Physician Routine (units unknown) (unknown) (unknown) (no date) (unknown) (unknown) Consulting Provider: Charlee Parikh (units unknown) (unknown) (unknown) (no date) (unknown) (unknown) Consults: (units unknown) (unknown) (unknown) (no date) (unknown) (unknown) Continued (units unknown) (unknown) (unknown) (no date) (unknown) (unknown) : 1950 Acct:[id number] (units unknown) (unknown) (unknown) (no date) (unknown) (unknown) Date Patient Seen: 10/24/22 (units unknown) (unknown) (unknown) (no date) (unknown) (unknown) Date of Service: 10/21/22 (units unknown) (unknown) (unknown) (no date) (unknown) (unknown) Date of admission: (units unknown) (unknown) (unknown) (no date) (unknown) (unknown) Deep Vein Thrombosis/Pulmonary Embolism Present on Admission: No (units unknown) (unknown) (unknown) (no date) (unknown) (unknown) Denies fever chills. Continues to have weakness and numbness in the left foot. (units unknown) (unknown) (unknown) (no date) (unknown) (unknown) Depression (units unknown) (unknown) (unknown) (no date) (unknown) (unknown) Diet/Activity/Treatm en ts (units unknown) (unknown) (unknown) (no date) (unknown) (unknown) Diet: Diet as Tolerated (units unknown) (unknown) (unknown) (no date) (unknown) (unknown) Discharge Data (units unknown) (unknown) (unknown) (no date) (unknown) (unknown) Discharge Date: 10/24/22 (units unknown) (unknown) (unknown) (no date) (unknown) (unknown) Discharge Diagnosis: (units unknown) (unknown) (unknown) (no date) (unknown) (unknown) Discharge Plan (units unknown) (unknown) (unknown) (no date) (unknown) (unknown) Discharge Providers (units unknown) (unknown) (unknown) (no date) (unknown) (unknown) Discharge Summary (units unknown) (unknown) (unknown) (no date) (unknown) (unknown) Discharge orders + Medications (units unknown) (unknown) (unknown) (no date) (unknown) (unknown) Discharge provider: (units unknown) (unknown) (unknown) (no date) (unknown) (unknown) Discharge (units unknown) (unknown) (unknown) (no date) (unknown) (unknown) Discontinued (units unknown) (unknown) (unknown) (no date) (unknown) (unknown) Diverticulitis (units unknown) (unknown) (unknown) (no date) (unknown) (unknown) Dressing: Keep dressing clean and dry. (units unknown) (unknown) (unknown) (no date) (unknown) (unknown) ER on October 20, 2022 d ue to significant drainage from her left hip wound. (units unknown) (unknown) (unknown) (no date) (unknown) (unknown) Estimated Blood Loss (mL): 100 (units unknown) (unknown) (unknown) (no date) (unknown) (unknown) Exam (units unknown) (unknown) (unknown) (no date) (unknown) (unknown) Excedrin Extra Strength 250-250-65 mg Tablet (units unknown) (unknown) (unknown) (no date) (unknown) (unknown) Family History (units unknown) (unknown) (unknown) (no date) (unknown) (unknown) Father No problems noted. (units unknown) (unknown) (unknown) (no date) (unknown) (unknown) Findings: (units unknown) (unknown) (unknown) (no date) (unknown) (unknown) Follow up/Referrals: (units unknown) (unknown) (unknown) (no date) (unknown) (unknown) Fraction of Inspired Oxygen 32 (units unknown) (unknown) (unknown) (no date) (unknown) (unknown) Functional status at discharge: uses cane/walker (units unknown) (unknown) (unknown) (no date) (unknown) (unknown) GERD (gastroesophage al reflux disease) (units unknown) (unknown) (unknown) (no date) (unknown) (unknown) Global precautions with full weight-bearing and avoiding hip abductor exercises (units unknown) (unknown) (unknown) (no date) (unknown) (unknown) HLD (hyperlipidemia) (units unknown) (unknown) (unknown) (no date) (unknown) (unknown) Has provider been notified: Yes (units unknown) (unknown) (unknown) (no date) (unknown) (unknown) Hearing impaired (units unknown) (unknown) (unknown) (no date) (unknown) (unknown) History of Present Illness (units unknown) (unknown) (unknown) (no date) (unknown) (unknown) History of bladder surgery (units unknown) (unknown) (unknown) (no date) (unknown) (unknown) History of total lef t knee replacement (units unknown) (unknown) (unknown) (no date) (unknown) (unknown) History of total rig ht knee replacement (units unknown) (unknown) (unknown) (no date) (unknown) (unknown) Hospital Course (units unknown) (unknown) (unknown) (no date) (unknown) (unknown) Hospital Course: (units unknown) (unknown) (unknown) (no date) (unknown) (unknown) Hospitalist consulte d for acute blood loss during surgery, acute urinary (units unknown) (unknown) (unknown) (no date) (unknown) (unknown) Hx of left breast biopsy (units unknown) (unknown) (unknown) (no date) (unknown) (unknown) Hx of right breast biopsy (units unknown) (unknown) (unknown) (no date) (unknown) (unknown) Hx of tonsillectomy (units unknown) (unknown) (unknown) (no date) (unknown) (unknown) Indications: (units unknown) (unknown) (unknown) (no date) (unknown) (unknown) Instructions: DI for Prescription Opioid Use (units unknown) (unknown) (unknown) (no date) (unknown) (unknown) Irrigation and evacuation left hip hematoma CPT code 30998 (units unknown) (unknown) (unknown) (no date) (unknown) (unknown) [address] [address] (units unknown) (unknown) (unknown) (no date) (unknown) (unknown) Maria Teresa Larsen PA-C (units unknown) (unknown) (unknown) (no date) (unknown) (unknown) Labs (units unknown) (unknown) (unknown) (no date) (unknown) (unknown) Lateral thigh hemato ma over the greater trochanter at the proximal aspect of the (units unknown) (unknown) (unknown) (no date) (unknown) (unknown) Left hip hematoma status post recent left total hip revision arthroplasty with (units unknown) (unknown) (unknown) (no date) (unknown) (unknown) May have 1-2 tabs every 4-6 hrs as needed (units unknown) (unknown) (unknown) (no date) (unknown) (unknown) Medical History (units unknown) (unknown) (unknown) (no date) (unknown) (unknown) Mother No problems noted. (units unknown) (unknown) (unknown) (no date) (unknown) (unknown) Narrative: (units unknown) (unknown) (unknown) (no date) (unknown) (unknown) New (units unknown) (unknown) (unknown) (no date) (unknown) (unknown) Objective (units unknown) (unknown) (unknown) (no date) (unknown) (unknown) Operative Notes (units unknown) (unknown) (unknown) (no date) (unknown) (unknown) Osteoarthritis (units unknown) (unknown) (unknown) (no date) (unknown) (unknown) [facility] facility[facility] (units unknown) (unknown) (unknown) (no date) (unknown) (unknown) Other wound treatmen t: The patient has a follow-up appointment with Dr. River on (units unknown) (unknown) (unknown) (no date) (unknown) (unknown) Overall status at discharge: patient is progressing back to baseline (units unknown) (unknown) (unknown) (no date) (unknown) (unknown) Oxygen Delivery Meth od Nasal Cannula (units unknown) (unknown) (unknown) (no date) (unknown) (unknown) Oxygen Flow Rate 0 0 0 (units unknown) (unknown) (unknown) (no date) (unknown) (unknown) Oxygen Flow Rate 0 (units unknown) (unknown) (unknown) (no date) (unknown) (unknown) PFSH (units unknown) (unknown) (unknown) (no date) (unknown) (unknown) Patient Disposition: SNF (units unknown) (unknown) (unknown) (no date) (unknown) (unknown) Patient had revision left total hip arthroplasty, open reduction internal (units unknown) (unknown) (unknown) (no date) (unknown) (unknown) Patient is a 72-year-old female has a history of a recent left total hip (units unknown) (unknown) (unknown) (no date) (unknown) (unknown) Patient needs AFO fo r ambulating left lower extremity (units unknown) (unknown) (unknown) (no date) (unknown) (unknown) Patient's pain is [id number] at rest more moderate to severe activity. (units unknown) (unknown) (unknown) (no date) (unknown) (unknown) Patient: Barbara Garcia MR#: [id number] (units unknown) (unknown) (unknown) (no date) (unknown) (unknown) Physician Instructions: Evaluate and Treat (units unknown) (unknown) (unknown) (no date) (unknown) (unknown) Physician Instructions: Evaluate and treat (units unknown) (unknown) (unknown) (no date) (unknown) (unknown) Prescriptions: (units unknown) (unknown) (unknown) (no date) (unknown) (unknown) Prevent blood clots (units unknown) (unknown) (unknown) (no date) (unknown) (unknown) Primary Care Provide r: Maria Teresa Larsen (units unknown) (unknown) (unknown) (no date) (unknown) (unknown) Primary care physician: (units unknown) (unknown) (unknown) (no date) (unknown) (unknown) Provider (units unknown) (unknown) (unknown) (no date) (unknown) (unknown) Provider: Paulino Braden P.A-C (units unknown) (unknown) (unknown) (no date) (unknown) (unknown) Pulse Oximetry 93 93 95 (units unknown) (unknown) (unknown) (no date) (unknown) (unknown) Pulse Rate 83 85 94 H (units unknown) (unknown) (unknown) (no date) (unknown) (unknown) Quality (units unknown) (unknown) (unknown) (no date) (unknown) (unknown) Reason for consultation: Surgical Blood loss anemia, fever, urinary tract (units unknown) (unknown) (unknown) (no date) (unknown) (unknown) Reason for rehabilitation: Post-operative therapy (units unknown) (unknown) (unknown) (no date) (unknown) (unknown) Rehab type: Physical therapy and Occupational therapy (units unknown) (unknown) (unknown) (no date) (unknown) (unknown) Report to your healthcare provider any signs of infection, such as:: chills, (units unknown) (unknown) (unknown) (no date) (unknown) (unknown) Respiratory Rate 16 20 20 (units unknown) (unknown) (unknown) (no date) (unknown) (unknown) Restrictions to mobility: The patient will be maintained on a standard total hip (units unknown) (unknown) (unknown) (no date) (unknown) (unknown) Rx Instructions: (units unknown) (unknown) (unknown) (no date) (unknown) (unknown) SaO2/FiO2 Ratio 296 (units unknown) (unknown) (unknown) (no date) (unknown) (unknown) Same procedure as scheduled: Yes (units unknown) (unknown) (unknown) (no date) (unknown) (unknown) Seasonal allergies (units unknown) (unknown) (unknown) (no date) (unknown) (unknown) She had been discharged to long term facility pattern she came back to the (units unknown) (unknown) (unknown) (no date) (unknown) (unknown) Signed By: (units unknown) (unknown) (unknown) (no date) (unknown) (unknown) Skin/Wound/Dressing Care (units unknown) (unknown) (unknown) (no date) (unknown) (unknown) Annika River MD [Physician] (units unknown) (unknown) (unknown) (no date) (unknown) (unknown) Smoking Status: Carmencita r smoker (units unknown) (unknown) (unknown) (no date) (unknown) (unknown) Social History (units unknown) (unknown) (unknown) (no date) (unknown) (unknown) Special Rehabilitati on Services (units unknown) (unknown) (unknown) (no date) (unknown) (unknown) Specimen(s): none sent (units unknown) (unknown) (unknown) (no date) (unknown) (unknown) Stand Alone Forms: Patient Portal/API, Stroke Signs + Symptoms, Surgery (units unknown) (unknown) (unknown) (no date) (unknown) (unknown) Status at Discharge (units unknown) (unknown) (unknown) (no date) (unknown) (unknown) Summary (units unknown) (unknown) (unknown) (no date) (unknown) (unknown) Surgeon: Carolee Paulino (units unknown) (unknown) (unknown) (no date) (unknown) (unknown) Surgical History (units unknown) (unknown) (unknown) (no date) (unknown) (unknown) Temperature 98.8 F 98.3 F 99.0 F (units unknown) (unknown) (unknown) (no date) (unknown) (unknown) The risks and benefi ts of the procedure have been discussed with the patient and (units unknown) (unknown) (unknown) (no date) (unknown) (unknown) Time Patient Seen: 08:37 (units unknown) (unknown) (unknown) (no date) (unknown) (unknown) Tourniquet time (min ): 0 (units unknown) (unknown) (unknown) (no date) (unknown) (unknown) VTE (units unknown) (unknown) (unknown) (no date) (unknown) (unknown) Visit Report/Dischar ge Packet (units unknown) (unknown) (unknown) (no date) (unknown) (unknown) Vital Signs (units unknown) (unknown) (unknown) (no date) (unknown) (unknown) Maria Teresa Larsen PA-C [Primary Care Provider] (units unknown) (unknown) (unknown) (no date) (unknown) (unknown) [Embedded Image Not Available] (units unknown) (unknown) (unknown) (no date) (unknown) (unknown) acetaminophen 325 mg Tablet (units unknown) (unknown) (unknown) (no date) (unknown) (unknown) alcohol intake: current (units unknown) (unknown) (unknown) (no date) (unknown) (unknown) and incision and flexion greater than 90?. (units unknown) (unknown) (unknown) (no date) (unknown) (unknown) aspirin 81 mg Tablet,Delayed Release (Dr/Ec) (units unknown) (unknown) (unknown) (no date) (unknown) (unknown) at the lateral left thigh presumed hematoma versus seroma.? She was also (units unknown) (unknown) (unknown) (no date) (unknown) (unknown) atorvastatin 20 mg Tablet (units unknown) (unknown) (unknown) (no date) (unknown) (unknown) because of her trochanteric repair. She should work to keep her foot midline (units unknown) (unknown) (unknown) (no date) (unknown) (unknown) came back to the ER last night with increasing pain wound drainage and thigh (units unknown) (unknown) (unknown) (no date) (unknown) (unknown) cardiopulmonary complications and .? The patient expressed a thorough (units unknown) (unknown) (unknown) (no date) (unknown) (unknown) cerclage wiring for fracture. Patient was initially discharged on October 08, 2022. (units unknown) (unknown) (unknown) (no date) (unknown) (unknown) cetirizine [Zyrtec] 10 mg Tablet (units unknown) (unknown) (unknown) (no date) (unknown) (unknown) cyclobenzaprine 10 m g Tablet (units unknown) (unknown) (unknown) (no date) (unknown) (unknown) damage to nerves and blood vessels, posttraumatic arthritis, DVT, PE, (units unknown) (unknown) (unknown) (no date) (unknown) (unknown) discharged to [facility]. (units unknown) (unknown) (unknown) (no date) (unknown) (unknown) docusate sodium 100 mg Capsule (units unknown) (unknown) (unknown) (no date) (unknown) (unknown) escitalopram oxalate 20 mg Tablet (units unknown) (unknown) (unknown) (no date) (unknown) (unknown) fever, night sweats, increased pain, unusual drainage and unusual redness (units unknown) (unknown) (unknown) (no date) (unknown) (unknown) fixation left greate r trochanteric fracture on October 04, 2022. Patient was d (units unknown) (unknown) (unknown) (no date) (unknown) (unknown) from the hospital on 10/08.? She has been in a long term facility.? She (units unknown) (unknown) (unknown) (no date) (unknown) (unknown) given the opportunit y to ask questions.? The risks of surgery include but are (units unknown) (unknown) (unknown) (no date) (unknown) (unknown) hip precautions. (units unknown) (unknown) (unknown) (no date) (unknown) (unknown) hospitalist for acut e blood loss anemia during surgery acute urinary retention (units unknown) (unknown) (unknown) (no date) (unknown) (unknown) hospitalization due to symptomatic blood loss anemia.? She did receive 1 unit of (units unknown) (unknown) (unknown) (no date) (unknown) (unknown) household members: spouse (units unknown) (unknown) (unknown) (no date) (unknown) (unknown) hydroxyzine pamoate [Vistaril] 25 mg capsule (units unknown) (unknown) (unknown) (no date) (unknown) (unknown) indicated for left thigh hematoma evacuation irrigation and debridement and (units unknown) (unknown) (unknown) (no date) (unknown) (unknown) infection (units unknown) (unknown) (unknown) (no date) (unknown) (unknown) ischarged on October 08, 2022. Patient returned to the emergency room and was found (units unknown) (unknown) (unknown) (no date) (unknown) (unknown) left footdrop. (units unknown) (unknown) (unknown) (no date) (unknown) (unknown) not limited to infection, need for additional procedures, persistence of pain, (units unknown) (unknown) (unknown) (no date) (unknown) (unknown) omeprazole-sodium bicarbonate [Zegerid] 20-1.1 mg-gram Capsule (units unknown) (unknown) (unknown) (no date) (unknown) (unknown) oxycodone 10 mg Tablet (units unknown) (unknown) (unknown) (no date) (unknown) (unknown) oxycodone 5 mg Tablet (units unknown) (unknown) (unknown) (no date) (unknown) (unknown) packed red cells in the operating room.? She also had a low-grade fever prior to (units unknown) (unknown) (unknown) (no date) (unknown) (unknown) polyethylene glycol 3350 17 gram Powder In Packet (units unknown) (unknown) (unknown) (no date) (unknown) (unknown) precautions. (units unknown) (unknown) (unknown) (no date) (unknown) (unknown) protocol with weight bearing as tolerated and primarily posterior hip (units unknown) (unknown) (unknown) (no date) (unknown) (unknown) replacement protocol with weight bearing as tolerated and primarily posterior (units unknown) (unknown) (unknown) (no date) (unknown) (unknown) retention, status postop, possible UTI (units unknown) (unknown) (unknown) (no date) (unknown) (unknown) revision arthroplast y with cerclage wiring for fracture.? She was discharged (units unknown) (unknown) (unknown) (no date) (unknown) (unknown) solifenacin [Vesicar e] 10 mg Tablet (units unknown) (unknown) (unknown) (no date) (unknown) (unknown) status postop possib le UTI. Patient has progressed slowly. Patient will be (units unknown) (unknown) (unknown) (no date) (unknown) (unknown) swelling and worseni ng spasms.? She was found to have a large fluid collection (units unknown) (unknown) (unknown) (no date) (unknown) (unknown) symptomatically anem ic with acute blood loss anemia hemoglobin 7.4.? She was (units unknown) (unknown) (unknown) (no date) (unknown) (unknown) to have a large hematoma which was evacuated on October 21, 2022. Consultation by (units unknown) (unknown) (unknown) (no date) (unknown) (unknown) transfusion and the suspicion of UTI.? Patient was noted to have a preoperative (units unknown) (unknown) (unknown) (no date) (unknown) (unknown) understanding of the risks and benefits of surgery and has elected to proceed.? (units unknown) (unknown) (unknown) (no date) (unknown) (unknown) wound.? Old hematoma blood and clot evacuated.? Purulence. (units unknown) (unknown) Result panel 1431 (unknown) (no date) (unknown) (unknown) (no value) (units unknown) (unknown) (unknown) (no date) (unknown) (unknown) (The patient has an appointment with Dr. River on 10/31/2022 9:30 a.m (units unknown) (unknown) (unknown) (no date) (unknown) (unknown) (The patient has an appointment with Dr. River on 10/31/2022 9:30 a.m\ (units unknown) (unknown) (unknown) (no date) (unknown) (unknown) (past 8 hours): (units unknown) (unknown) (unknown) (no date) (unknown) (unknown) 04:00 10/24/22 (units unknown) (unknown) (unknown) (no date) (unknown) (unknown) 10/21/22 03:58 (units unknown) (unknown) (unknown) (no date) (unknown) (unknown) 10/21/22 15:52 (units unknown) (unknown) (unknown) (no date) (unknown) (unknown) 10/22/22 10:44 (units unknown) (unknown) (unknown) (no date) (unknown) (unknown) 10/22/22 11:08 (units unknown) (unknown) (unknown) (no date) (unknown) (unknown) 10/22/22 12:40 (units unknown) (unknown) (unknown) (no date) (unknown) (unknown) 10/23/22 04:45 (units unknown) (unknown) (unknown) (no date) (unknown) (unknown) 10/24/22 0845 (units unknown) (unknown) (unknown) (no date) (unknown) (unknown) 10/24/22 (units unknown) (unknown) (unknown) (no date) (unknown) (unknown) 10/31/2022 930 a.m. (units unknown) (unknown) (unknown) (no date) (unknown) (unknown) 06:41 10/24/22 (units unknown) (unknown) (unknown) (no date) (unknown) (unknown) 08:00 (units unknown) (unknown) (unknown) (no date) (unknown) (unknown) 1 - 2 tab PO BID (units unknown) (unknown) (unknown) (no date) (unknown) (unknown) 1 cap PO DAILY PRN (Reason: GI Upset) (units unknown) (unknown) (unknown) (no date) (unknown) (unknown) 10 mg PO DAILY PRN (Reason: Seasonal allergies) (units unknown) (unknown) (unknown) (no date) (unknown) (unknown) 10 mg PO DAILY (units unknown) (unknown) (unknown) (no date) (unknown) (unknown) 10 mg PO Q3HR PRN (Reason: Pain, Moderate (4-6)) Qty: 60 0RF (units unknown) (unknown) (unknown) (no date) (unknown) (unknown) 10 mg PO Q8HR PRN (Reason: Spasms) Qty: 40 0RF (units unknown) (unknown) (unknown) (no date) (unknown) (unknown) 100 mg PO BID PRN (Reason: constipation) Qty: 30 0RF (units unknown) (unknown) (unknown) (no date) (unknown) (unknown) 100 mg PO BID Qty: 2 0 0RF (units unknown) (unknown) (unknown) (no date) (unknown) (unknown) 17 gm PO DAILY Qty: 30 0RF (units unknown) (unknown) (unknown) (no date) (unknown) (unknown) 20 mg PO BEDTIME (units unknown) (unknown) (unknown) (no date) (unknown) (unknown) 20 mg PO DAILY (units unknown) (unknown) (unknown) (no date) (unknown) (unknown) 25 mg PO TID-QID PRN (Reason: itching) Qty: 60 0RF (units unknown) (unknown) (unknown) (no date) (unknown) (unknown) [address]) (units unknown) (unknown) (unknown) (no date) (unknown) (unknown) [address]151 (units unknown) (unknown) (unknown) (no date) (unknown) (unknown) 5 mg PO Q4-6H PRN (Reason: Pain, Moderate (4-6)) Qty: 60 0RF (units unknown) (unknown) (unknown) (no date) (unknown) (unknown) 650 mg PO Q6H MDD Ma x 3000 mg per day PRN (Reason: fever or pain) Qty: 90 0RF (units unknown) (unknown) (unknown) (no date) (unknown) (unknown) 72-year-old female resting comfortably in bed in no apparent distress. Moderate (units unknown) (unknown) (unknown) (no date) (unknown) (unknown) 81 mg PO BID 42 Days Qty: 84 0RF (units unknown) (unknown) (unknown) (no date) (unknown) (unknown) AFO to be made while ambulating on the left lower extremity. (units unknown) (unknown) (unknown) (no date) (unknown) (unknown) Activity: The patien t will be maintained on a standard total hip replacement (units unknown) (unknown) (unknown) (no date) (unknown) (unknown) Age/Sex: 72 / F (units unknown) (unknown) (unknown) (no date) (unknown) (unknown) Paulino Braden PA-C (units unknown) (unknown) (unknown) (no date) (unknown) (unknown) Anesthesia Type: General and Local (units unknown) (unknown) (unknown) (no date) (unknown) (unknown) [place] [address] (units unknown) (unknown) (unknown) (no date) (unknown) (unknown) Applied: drain(s) (Medium Hemovac drain left thigh) (units unknown) (unknown) (unknown) (no date) (unknown) (unknown) Aspirin for DVT prophylaxis (units unknown) (unknown) (unknown) (no date) (unknown) (unknown) Assessment and Plan (units unknown) (unknown) (unknown) (no date) (unknown) (unknown) Assessment: (units unknown) (unknown) (unknown) (no date) (unknown) (unknown) Blood Pressure 102/5 3 L 130/59 L 137/70 (units unknown) (unknown) (unknown) (no date) (unknown) (unknown) Blood products transfused: none (units unknown) (unknown) (unknown) (no date) (unknown) (unknown) Chief complaint: Lef t hip pain (units unknown) (unknown) (unknown) (no date) (unknown) (unknown) Click Yes if Unassisted: Yes (units unknown) (unknown) (unknown) (no date) (unknown) (unknown) Closure Type: primary (units unknown) (unknown) (unknown) (no date) (unknown) (unknown) Cognitive/behavioral status at discharge: at baseline, oriented (units unknown) (unknown) (unknown) (no date) (unknown) (unknown) Cold/Heat Therapy: I ce to hip as needed (units unknown) (unknown) (unknown) (no date) (unknown) (unknown) Comment: PHP left, WBAT( No abductor strengthening) (units unknown) (unknown) (unknown) (no date) (unknown) (unknown) Comment: Snf (units unknown) (unknown) (unknown) (no date) (unknown) (unknown) Comment: (units unknown) (unknown) (unknown) (no date) (unknown) (unknown) Consent was signed. (units unknown) (unknown) (unknown) (no date) (unknown) (unknown) Const (units unknown) (unknown) (unknown) (no date) (unknown) (unknown) Consult to Discharge Planning Routine (units unknown) (unknown) (unknown) (no date) (unknown) (unknown) Consult to Occupational Therapy Evaluate + Treat (units unknown) (unknown) (unknown) (no date) (unknown) (unknown) Consult to Physical Therapy Evaluate + Treat (units unknown) (unknown) (unknown) (no date) (unknown) (unknown) Consult to Physician Routine (units unknown) (unknown) (unknown) (no date) (unknown) (unknown) Consulting Provider: Charlee Parikh (units unknown) (unknown) (unknown) (no date) (unknown) (unknown) Consults: (units unknown) (unknown) (unknown) (no date) (unknown) (unknown) Continued (units unknown) (unknown) (unknown) (no date) (unknown) (unknown) : 1950 Acct:[id number] (units unknown) (unknown) (unknown) (no date) (unknown) (unknown) Date Patient Seen: 10/24/22 (units unknown) (unknown) (unknown) (no date) (unknown) (unknown) Date of Service: 10/21/22 (units unknown) (unknown) (unknown) (no date) (unknown) (unknown) Date of admission: (units unknown) (unknown) (unknown) (no date) (unknown) (unknown) Deep Vein Thrombosis/Pulmonary Embolism Present on Admission: No (units unknown) (unknown) (unknown) (no date) (unknown) (unknown) Denies fever chills. Continues to have weakness and numbness in the left foot. (units unknown) (unknown) (unknown) (no date) (unknown) (unknown) Depression (units unknown) (unknown) (unknown) (no date) (unknown) (unknown) Diet/Activity/Treatm en ts (units unknown) (unknown) (unknown) (no date) (unknown) (unknown) Diet: Diet as Tolerated (units unknown) (unknown) (unknown) (no date) (unknown) (unknown) Discharge Assessment + Plan (units unknown) (unknown) (unknown) (no date) (unknown) (unknown) Discharge Data (units unknown) (unknown) (unknown) (no date) (unknown) (unknown) Discharge Date: 10/24/22 (units unknown) (unknown) (unknown) (no date) (unknown) (unknown) Discharge Diagnosis: (units unknown) (unknown) (unknown) (no date) (unknown) (unknown) Discharge Plan (units unknown) (unknown) (unknown) (no date) (unknown) (unknown) Discharge Providers (units unknown) (unknown) (unknown) (no date) (unknown) (unknown) Discharge Summary (units unknown) (unknown) (unknown) (no date) (unknown) (unknown) Discharge orders + Medications (units unknown) (unknown) (unknown) (no date) (unknown) (unknown) Discharge provider: (units unknown) (unknown) (unknown) (no date) (unknown) (unknown) Discharge to long term facility today. (units unknown) (unknown) (unknown) (no date) (unknown) (unknown) Discharge (units unknown) (unknown) (unknown) (no date) (unknown) (unknown) Discontinued (units unknown) (unknown) (unknown) (no date) (unknown) (unknown) Diverticulitis (units unknown) (unknown) (unknown) (no date) (unknown) (unknown) Dressing: Keep dressing clean and dry. (units unknown) (unknown) (unknown) (no date) (unknown) (unknown) ER on October 20, 2022 d ue to significant drainage from her left hip wound. (units unknown) (unknown) (unknown) (no date) (unknown) (unknown) Effort + Inspection: normal respiratory effort and able to speak in complete (units unknown) (unknown) (unknown) (no date) (unknown) (unknown) Estimated Blood Loss (mL): 100 (units unknown) (unknown) (unknown) (no date) (unknown) (unknown) Exam Narrative: (units unknown) (unknown) (unknown) (no date) (unknown) (unknown) Exam (units unknown) (unknown) (unknown) (no date) (unknown) (unknown) Excedrin Extra Strength 250-250-65 mg Tablet (units unknown) (unknown) (unknown) (no date) (unknown) (unknown) Family History (units unknown) (unknown) (unknown) (no date) (unknown) (unknown) Father No problems noted. (units unknown) (unknown) (unknown) (no date) (unknown) (unknown) Findings: (units unknown) (unknown) (unknown) (no date) (unknown) (unknown) Follow up/Referrals: (units unknown) (unknown) (unknown) (no date) (unknown) (unknown) Fraction of Inspired Oxygen 32 (units unknown) (unknown) (unknown) (no date) (unknown) (unknown) Functional status at discharge: uses cane/walker (units unknown) (unknown) (unknown) (no date) (unknown) (unknown) GERD (gastroesophage al reflux disease) (units unknown) (unknown) (unknown) (no date) (unknown) (unknown) General: cooperative and comfortable (units unknown) (unknown) (unknown) (no date) (unknown) (unknown) Global precautions with full weight-bearing and avoiding hip abductor exercises (units unknown) (unknown) (unknown) (no date) (unknown) (unknown) HLD (hyperlipidemia) (units unknown) (unknown) (unknown) (no date) (unknown) (unknown) Has provider been notified: Yes (units unknown) (unknown) (unknown) (no date) (unknown) (unknown) Hearing impaired (units unknown) (unknown) (unknown) (no date) (unknown) (unknown) History of Present Illness (units unknown) (unknown) (unknown) (no date) (unknown) (unknown) History of bladder surgery (units unknown) (unknown) (unknown) (no date) (unknown) (unknown) History of total lef t knee replacement (units unknown) (unknown) (unknown) (no date) (unknown) (unknown) History of total rig ht knee replacement (units unknown) (unknown) (unknown) (no date) (unknown) (unknown) Hospital Course (units unknown) (unknown) (unknown) (no date) (unknown) (unknown) Hospital Course: (units unknown) (unknown) (unknown) (no date) (unknown) (unknown) Hospitalist consulte d for acute blood loss during surgery, acute urinary (units unknown) (unknown) (unknown) (no date) (unknown) (unknown) Hx of left breast biopsy (units unknown) (unknown) (unknown) (no date) (unknown) (unknown) Hx of right breast biopsy (units unknown) (unknown) (unknown) (no date) (unknown) (unknown) Hx of tonsillectomy (units unknown) (unknown) (unknown) (no date) (unknown) (unknown) Indications: (units unknown) (unknown) (unknown) (no date) (unknown) (unknown) Instructions: DI for Prescription Opioid Use (units unknown) (unknown) (unknown) (no date) (unknown) (unknown) Irrigation and evacuation left hip hematoma CPT code 21329 (units unknown) (unknown) (unknown) (no date) (unknown) (unknown) [address] [address] (units unknown) (unknown) (unknown) (no date) (unknown) (unknown) Maria Teresa Larsen PA-C (units unknown) (unknown) (unknown) (no date) (unknown) (unknown) Labs (units unknown) (unknown) (unknown) (no date) (unknown) (unknown) Lateral thigh hemato ma over the greater trochanter at the proximal aspect of the (units unknown) (unknown) (unknown) (no date) (unknown) (unknown) Left foot drop (units unknown) (unknown) (unknown) (no date) (unknown) (unknown) Left hip hematoma status post recent left total hip revision arthroplasty with (units unknown) (unknown) (unknown) (no date) (unknown) (unknown) May have 1-2 tabs every 4-6 hrs as needed (units unknown) (unknown) (unknown) (no date) (unknown) (unknown) Medical History (units unknown) (unknown) (unknown) (no date) (unknown) (unknown) Mother No problems noted. (units unknown) (unknown) (unknown) (no date) (unknown) (unknown) Multimodal pain management (units unknown) (unknown) (unknown) (no date) (unknown) (unknown) Narrative (units unknown) (unknown) (unknown) (no date) (unknown) (unknown) Narrative: (units unknown) (unknown) (unknown) (no date) (unknown) (unknown) New (units unknown) (unknown) (unknown) (no date) (unknown) (unknown) Nutritional Appearance: well nourished (units unknown) (unknown) (unknown) (no date) (unknown) (unknown) Objective (units unknown) (unknown) (unknown) (no date) (unknown) (unknown) Operative Notes (units unknown) (unknown) (unknown) (no date) (unknown) (unknown) Orientation: alert (units unknown) (unknown) (unknown) (no date) (unknown) (unknown) Osteoarthritis (units unknown) (unknown) (unknown) (no date) (unknown) (unknown) [facility] facility[facility] (units unknown) (unknown) (unknown) (no date) (unknown) (unknown) Other wound treatmen t: The patient has a follow-up appointment with Dr. River on (units unknown) (unknown) (unknown) (no date) (unknown) (unknown) Overall status at discharge: patient is progressing back to baseline (units unknown) (unknown) (unknown) (no date) (unknown) (unknown) Oxygen Delivery Meth od Nasal Cannula (units unknown) (unknown) (unknown) (no date) (unknown) (unknown) Oxygen Flow Rate 0 0 0 (units unknown) (unknown) (unknown) (no date) (unknown) (unknown) Oxygen Flow Rate 0 (units unknown) (unknown) (unknown) (no date) (unknown) (unknown) PFSH (units unknown) (unknown) (unknown) (no date) (unknown) (unknown) Patient Disposition: SNF (units unknown) (unknown) (unknown) (no date) (unknown) (unknown) Patient had revision left total hip arthroplasty, open reduction internal (units unknown) (unknown) (unknown) (no date) (unknown) (unknown) Patient is a 72-year-old female has a history of a recent left total hip (units unknown) (unknown) (unknown) (no date) (unknown) (unknown) Patient needs AFO fo r ambulating left lower extremity (units unknown) (unknown) (unknown) (no date) (unknown) (unknown) Patient needs to be fitted for an AFO or have a brace made while waiting for a (units unknown) (unknown) (unknown) (no date) (unknown) (unknown) Patient's pain is [id number] at rest more moderate to severe activity. (units unknown) (unknown) (unknown) (no date) (unknown) (unknown) Patient: Barbara Garcia MR#: [id number] (units unknown) (unknown) (unknown) (no date) (unknown) (unknown) Physician Instructions: Evaluate and Treat (units unknown) (unknown) (unknown) (no date) (unknown) (unknown) Physician Instructions: Evaluate and treat (units unknown) (unknown) (unknown) (no date) (unknown) (unknown) Plan of Treatment: (units unknown) (unknown) (unknown) (no date) (unknown) (unknown) Prescriptions: (units unknown) (unknown) (unknown) (no date) (unknown) (unknown) Prevent blood clots (units unknown) (unknown) (unknown) (no date) (unknown) (unknown) Primary Care Provide r: Maria Teresa Larsen (units unknown) (unknown) (unknown) (no date) (unknown) (unknown) Primary care physician: (units unknown) (unknown) (unknown) (no date) (unknown) (unknown) Provider (units unknown) (unknown) (unknown) (no date) (unknown) (unknown) Provider: Paulino Braden P.A-C (units unknown) (unknown) (unknown) (no date) (unknown) (unknown) Pulse Oximetry 93 93 95 (units unknown) (unknown) (unknown) (no date) (unknown) (unknown) Pulse Rate 83 85 94 H (units unknown) (unknown) (unknown) (no date) (unknown) (unknown) Quality (units unknown) (unknown) (unknown) (no date) (unknown) (unknown) Reason for consultation: Surgical Blood loss anemia, fever, urinary tract (units unknown) (unknown) (unknown) (no date) (unknown) (unknown) Reason for rehabilitation: Post-operative therapy (units unknown) (unknown) (unknown) (no date) (unknown) (unknown) Rehab type: Physical therapy and Occupational therapy (units unknown) (unknown) (unknown) (no date) (unknown) (unknown) Report to your healthcare provider any signs of infection, such as:: chills, (units unknown) (unknown) (unknown) (no date) (unknown) (unknown) Resp (units unknown) (unknown) (unknown) (no date) (unknown) (unknown) Respiratory Rate 16 20 20 (units unknown) (unknown) (unknown) (no date) (unknown) (unknown) Restrictions to mobility: The patient will be maintained on a standard total hip (units unknown) (unknown) (unknown) (no date) (unknown) (unknown) Rx Instructions: (units unknown) (unknown) (unknown) (no date) (unknown) (unknown) SaO2/FiO2 Ratio 296 (units unknown) (unknown) (unknown) (no date) (unknown) (unknown) Same procedure as scheduled: Yes (units unknown) (unknown) (unknown) (no date) (unknown) (unknown) Seasonal allergies (units unknown) (unknown) (unknown) (no date) (unknown) (unknown) She had been discharged to long term facility pattern she came back to the (units unknown) (unknown) (unknown) (no date) (unknown) (unknown) Signed By:<Electronically signed by Paulino Braden> (units unknown) (unknown) (unknown) (no date) (unknown) (unknown) Skin/Wound/Dressing Care (units unknown) (unknown) (unknown) (no date) (unknown) (unknown) Annika River MD [Physician] (units unknown) (unknown) (unknown) (no date) (unknown) (unknown) Smoking Status: Carmencita r smoker (units unknown) (unknown) (unknown) (no date) (unknown) (unknown) Social History (units unknown) (unknown) (unknown) (no date) (unknown) (unknown) Special Rehabilitati on Services (units unknown) (unknown) (unknown) (no date) (unknown) (unknown) Specimen(s): none sent (units unknown) (unknown) (unknown) (no date) (unknown) (unknown) Stable (units unknown) (unknown) (unknown) (no date) (unknown) (unknown) Stand Alone Forms: Patient Portal/API, Stroke Signs + Symptoms, Surgery (units unknown) (unknown) (unknown) (no date) (unknown) (unknown) Standard total hip replacement protocol with weight-bearing as tolerated, (units unknown) (unknown) (unknown) (no date) (unknown) (unknown) Status at Discharge (units unknown) (unknown) (unknown) (no date) (unknown) (unknown) Summary (units unknown) (unknown) (unknown) (no date) (unknown) (unknown) Surgeon: Carolee Paulino (units unknown) (unknown) (unknown) (no date) (unknown) (unknown) Surgical History (units unknown) (unknown) (unknown) (no date) (unknown) (unknown) Temperature 98.8 F 98.3 F 99.0 F (units unknown) (unknown) (unknown) (no date) (unknown) (unknown) The risks and benefi ts of the procedure have been discussed with the patient and (units unknown) (unknown) (unknown) (no date) (unknown) (unknown) Time Patient Seen: 08:37 (units unknown) (unknown) (unknown) (no date) (unknown) (unknown) Tourniquet time (min ): 0 (units unknown) (unknown) (unknown) (no date) (unknown) (unknown) VTE (units unknown) (unknown) (unknown) (no date) (unknown) (unknown) Visit Report/Dischar ge Packet (units unknown) (unknown) (unknown) (no date) (unknown) (unknown) Vital Signs (units unknown) (unknown) (unknown) (no date) (unknown) (unknown) Maria Teresa Larsen PA-C [Primary Care Provider] (units unknown) (unknown) (unknown) (no date) (unknown) (unknown) [Embedded Image Not Available] (units unknown) (unknown) (unknown) (no date) (unknown) (unknown) acetaminophen 325 mg Tablet (units unknown) (unknown) (unknown) (no date) (unknown) (unknown) alcohol intake: current (units unknown) (unknown) (unknown) (no date) (unknown) (unknown) and incision and flexion greater than 90?. (units unknown) (unknown) (unknown) (no date) (unknown) (unknown) and worsening spasms .? She was found to have a large fluid collection at the (units unknown) (unknown) (unknown) (no date) (unknown) (unknown) aspirin 81 mg Tablet,Delayed Release (Dr/Ec) (units unknown) (unknown) (unknown) (no date) (unknown) (unknown) atorvastatin 20 mg Tablet (units unknown) (unknown) (unknown) (no date) (unknown) (unknown) back to the ER last night with increasing pain wound drainage and thigh swelling (units unknown) (unknown) (unknown) (no date) (unknown) (unknown) because of her trochanteric repair. She should work to keep her foot midline (units unknown) (unknown) (unknown) (no date) (unknown) (unknown) cardiopulmonary complications and .? The patient expressed a thorough (units unknown) (unknown) (unknown) (no date) (unknown) (unknown) cerclage wiring for fracture. Patient was initially discharged on October 08, 2022. (units unknown) (unknown) (unknown) (no date) (unknown) (unknown) cetirizine [Zyrtec] 10 mg Tablet (units unknown) (unknown) (unknown) (no date) (unknown) (unknown) cyclobenzaprine 10 m g Tablet (units unknown) (unknown) (unknown) (no date) (unknown) (unknown) damage to nerves and blood vessels, posttraumatic arthritis, DVT, PE, (units unknown) (unknown) (unknown) (no date) (unknown) (unknown) ding hip abductor exercises because of her trochanteric repair. She should work (units unknown) (unknown) (unknown) (no date) (unknown) (unknown) discharged on October 08, 2022. Patient returned to the emergency room and was found (units unknown) (unknown) (unknown) (no date) (unknown) (unknown) discharged to [facility]. (units unknown) (unknown) (unknown) (no date) (unknown) (unknown) docusate sodium 100 mg Capsule (units unknown) (unknown) (unknown) (no date) (unknown) (unknown) drainage on the dressing. Continues to have a foot drop. Left leg is warm and (units unknown) (unknown) (unknown) (no date) (unknown) (unknown) dry. Calf is soft an d nontender. (units unknown) (unknown) (unknown) (no date) (unknown) (unknown) escitalopram oxalate 20 mg Tablet (units unknown) (unknown) (unknown) (no date) (unknown) (unknown) fever, night sweats, increased pain, unusual drainage and unusual redness (units unknown) (unknown) (unknown) (no date) (unknown) (unknown) fixation left greate r trochanteric fracture on October 04, 2022. Patient was (units unknown) (unknown) (unknown) (no date) (unknown) (unknown) follow-up with Dr. River in 2 weeks (units unknown) (unknown) (unknown) (no date) (unknown) (unknown) given the opportunit y to ask questions.? The risks of surgery include but are (units unknown) (unknown) (unknown) (no date) (unknown) (unknown) hip precautions. (units unknown) (unknown) (unknown) (no date) (unknown) (unknown) hospitalist for acut e blood loss anemia during surgery acute urinary retention (units unknown) (unknown) (unknown) (no date) (unknown) (unknown) hospitalization due to symptomatic blood loss anemia.? She did receive 1 unit of (units unknown) (unknown) (unknown) (no date) (unknown) (unknown) household members: spouse (units unknown) (unknown) (unknown) (no date) (unknown) (unknown) hydroxyzine pamoate [Vistaril] 25 mg capsule (units unknown) (unknown) (unknown) (no date) (unknown) (unknown) indicated for left thigh hematoma evacuation irrigation and debridement and (units unknown) (unknown) (unknown) (no date) (unknown) (unknown) infection (units unknown) (unknown) (unknown) (no date) (unknown) (unknown) lateral left thigh presumed hematoma versus seroma.? She was also (units unknown) (unknown) (unknown) (no date) (unknown) (unknown) left footdrop. (units unknown) (unknown) (unknown) (no date) (unknown) (unknown) not limited to infection, need for additional procedures, persistence of pain, (units unknown) (unknown) (unknown) (no date) (unknown) (unknown) om the hospital on 10/08.? She has been in a long term facility.? She came (units unknown) (unknown) (unknown) (no date) (unknown) (unknown) omeprazole-sodium bicarbonate [Zegerid] 20-1.1 mg-gram Capsule (units unknown) (unknown) (unknown) (no date) (unknown) (unknown) oxycodone 10 mg Tablet (units unknown) (unknown) (unknown) (no date) (unknown) (unknown) oxycodone 5 mg Tablet (units unknown) (unknown) (unknown) (no date) (unknown) (unknown) packed red cells in the operating room.? She also had a low-grade fever prior to (units unknown) (unknown) (unknown) (no date) (unknown) (unknown) polyethylene glycol 3350 17 gram Powder In Packet (units unknown) (unknown) (unknown) (no date) (unknown) (unknown) posterior hip precautions. Global precautions with full weight-bearing and avoi (units unknown) (unknown) (unknown) (no date) (unknown) (unknown) precautions. (units unknown) (unknown) (unknown) (no date) (unknown) (unknown) protocol with weight bearing as tolerated and primarily posterior hip (units unknown) (unknown) (unknown) (no date) (unknown) (unknown) replacement protocol with weight bearing as tolerated and primarily posterior (units unknown) (unknown) (unknown) (no date) (unknown) (unknown) retention, status postop, possible UTI (units unknown) (unknown) (unknown) (no date) (unknown) (unknown) revision arthroplast y with cerclage wiring for fracture.? She was discharged fr (units unknown) (unknown) (unknown) (no date) (unknown) (unknown) sentences (units unknown) (unknown) (unknown) (no date) (unknown) (unknown) solifenacin [Vesicar e] 10 mg Tablet (units unknown) (unknown) (unknown) (no date) (unknown) (unknown) status postop possib le UTI. Patient has progressed slowly. Patient will be (units unknown) (unknown) (unknown) (no date) (unknown) (unknown) symptomatically anem ic with acute blood loss anemia hemoglobin 7.4.? She was (units unknown) (unknown) (unknown) (no date) (unknown) (unknown) to have a large hematoma which was evacuated on October 21, 2022. Consultation by (units unknown) (unknown) (unknown) (no date) (unknown) (unknown) to keep her foot midline. (units unknown) (unknown) (unknown) (no date) (unknown) (unknown) transfusion and the suspicion of UTI.? Patient was noted to have a preoperative (units unknown) (unknown) (unknown) (no date) (unknown) (unknown) understanding of the risks and benefits of surgery and has elected to proceed.? (units unknown) (unknown) (unknown) (no date) (unknown) (unknown) wound.? Old hematoma blood and clot evacuated.? Purulence. (units unknown) (unknown) Result panel 1432 (unknown) (no date) (unknown) (unknown) No growth. (units unknown) (unknown) Result panel 1433 (unknown) (no date) (unknown) (unknown) (no value) (units unknown) (unknown) (unknown) (no date) (unknown) (unknown) NO GROWTH AFTER 4 DAYS (units unknown) (unknown) Result panel 1434 (unknown) (no date) (unknown) (unknown) (no value) (units unknown) (unknown) (unknown) (no date) (unknown) (unknown) NO GROWTH AFTER 4 DAYS (units unknown) (unknown) Result panel 1435 (unknown) (no date) (unknown) (unknown) NEGATIVE (units unknown) (unknown) (unknown) (no date) (unknown) (unknown) O Positive (units unknown) (unknown) (unknown) (no date) (unknown) (unknown) O Positive (units unknown) (unknown) (unknown) (no date) (unknown) (unknown) TRANSFUSED PRODUCT: Packed Cells COUNT: 1 (units unknown) (unknown) Result panel 1436 (unknown) (no date) (unknown) (unknown) (no value) (units unknown) (unknown) (unknown) (no date) (unknown) (unknown) NO GROWTH AFTER 5 DAYS (units unknown) (unknown) Result panel 1437 (unknown) (no date) (unknown) (unknown) (no value) (units unknown) (unknown) (unknown) (no date) (unknown) (unknown) NO GROWTH AFTER 5 DAYS (units unknown) (unknown) Result panel 1438 (unknown) (no date) (unknown) (unknown) (no value) (units unknown) (unknown) (unknown) (no date) (unknown) (unknown) ADDENDUM (units unknown) (unknown) (unknown) (no date) (unknown) (unknown) 10/21/22 1513 (units unknown) (unknown) (unknown) (no date) (unknown) (unknown) 10/26/22 1157 (units unknown) (unknown) (unknown) (no date) (unknown) (unknown) 3151 (units unknown) (unknown) (unknown) (no date) (unknown) (unknown) Acute blood loss anemia (units unknown) (unknown) (unknown) (no date) (unknown) (unknown) Addendum Documented By: Carolee Paulino MD (units unknown) (unknown) (unknown) (no date) (unknown) (unknown) Addendum Signed By: <Electronically signed by Carolee Paulino, (units unknown) (unknown) (unknown) (no date) (unknown) (unknown) Age/Sex: 72 / F (units unknown) (unknown) (unknown) (no date) (unknown) (unknown) Anesthesia Type: General and Local (units unknown) (unknown) (unknown) (no date) (unknown) (unknown) Applied: drain(s) (Medium Hemovac drain left thigh) (units unknown) (unknown) (unknown) (no date) (unknown) (unknown) Attention was turned to the left thigh. There is induration around the proximal (units unknown) (unknown) (unknown) (no date) (unknown) (unknown) Blood products transfused: none (units unknown) (unknown) (unknown) (no date) (unknown) (unknown) Click Yes if Unassisted: Yes (units unknown) (unknown) (unknown) (no date) (unknown) (unknown) Closure Type: primary (units unknown) (unknown) (unknown) (no date) (unknown) (unknown) Condition: stable (units unknown) (unknown) (unknown) (no date) (unknown) (unknown) Consent was signed. (units unknown) (unknown) (unknown) (no date) (unknown) (unknown) : 1950 Acct:[id number] (units unknown) (unknown) (unknown) (no date) (unknown) (unknown) Date of Service: 10/21/22 (units unknown) (unknown) (unknown) (no date) (unknown) (unknown) Date of procedure: 10/21/22 (units unknown) (unknown) (unknown) (no date) (unknown) (unknown) Disposition: PACU (units unknown) (unknown) (unknown) (no date) (unknown) (unknown) Estimated Blood Loss (mL): 100 (units unknown) (unknown) (unknown) (no date) (unknown) (unknown) Findings: (units unknown) (unknown) (unknown) (no date) (unknown) (unknown) Hemovac drain with 0 PDS 2-0 PDS and 3-0 nylon suture. An Aquacel dressing was (units unknown) (unknown) (unknown) (no date) (unknown) (unknown) Indications: (units unknown) (unknown) (unknown) (no date) (unknown) (unknown) Irrigation and evacuation left hip hematoma CPT code 68564 (units unknown) (unknown) (unknown) (no date) (unknown) (unknown) [address] [address] (units unknown) (unknown) (unknown) (no date) (unknown) (unknown) Lateral thigh hemato ma over the greater trochanter at the proximal aspect of the (units unknown) (unknown) (unknown) (no date) (unknown) (unknown) MD> 10/26/22 1157 (units unknown) (unknown) (unknown) (no date) (unknown) (unknown) Morbid obesity BMI 39 (units unknown) (unknown) (unknown) (no date) (unknown) (unknown) Operative Date/Time/Diagnoses (units unknown) (unknown) (unknown) (no date) (unknown) (unknown) Operative Note (units unknown) (unknown) (unknown) (no date) (unknown) (unknown) Operative Notes (units unknown) (unknown) (unknown) (no date) (unknown) (unknown) Patient is a 72-year-old female has a history of a recent left total hip (units unknown) (unknown) (unknown) (no date) (unknown) (unknown) Patient is seen in [facility] preoperative area the site of surgery marked informed (units unknown) (unknown) (unknown) (no date) (unknown) (unknown) Patient: Barbara Garcia MR#: [id number] (units unknown) (unknown) (unknown) (no date) (unknown) (unknown) Plan for aftercare: (units unknown) (unknown) (unknown) (no date) (unknown) (unknown) Post-op diagnosis: same (units unknown) (unknown) (unknown) (no date) (unknown) (unknown) Post-operative (units unknown) (unknown) (unknown) (no date) (unknown) (unknown) Pre-op diagnosis: Le ft thigh hematoma (units unknown) (unknown) (unknown) (no date) (unknown) (unknown) Procedure + Clinicians (units unknown) (unknown) (unknown) (no date) (unknown) (unknown) Procedure in detail: (units unknown) (unknown) (unknown) (no date) (unknown) (unknown) Procedure: (units unknown) (unknown) (unknown) (no date) (unknown) (unknown) Provider: Carolee Paulino MD (units unknown) (unknown) (unknown) (no date) (unknown) (unknown) Query asked how deep the debridement was. Debridement was done to the level of (units unknown) (unknown) (unknown) (no date) (unknown) (unknown) Same procedure as scheduled: Yes (units unknown) (unknown) (unknown) (no date) (unknown) (unknown) Signed By:<Electronically signed by Carolee Pauilno MD> (units unknown) (unknown) (unknown) (no date) (unknown) (unknown) Specimen(s): none sent (units unknown) (unknown) (unknown) (no date) (unknown) (unknown) Surgeon: Carolee Paulino (units unknown) (unknown) (unknown) (no date) (unknown) (unknown) The patient was then awoken from anesthesia and taken to recovery room in good (units unknown) (unknown) (unknown) (no date) (unknown) (unknown) The risks and benefi ts of the procedure have been discussed with the patient and (units unknown) (unknown) (unknown) (no date) (unknown) (unknown) Time of procedure: 15:04 (units unknown) (unknown) (unknown) (no date) (unknown) (unknown) Tourniquet time (min ): 0 (units unknown) (unknown) (unknown) (no date) (unknown) (unknown) Weightbear as tolerated. Posterior hip precautions. Aspirin for DVT (units unknown) (unknown) (unknown) (no date) (unknown) (unknown) administered and the patient was rolled into the lateral position on the (units unknown) (unknown) (unknown) (no date) (unknown) (unknown) anesthesia team positioned supine on operative table. General anesthetic was (units unknown) (unknown) (unknown) (no date) (unknown) (unknown) aspect of the incision. This did fade once the patient was rolled up onto her (units unknown) (unknown) (unknown) (no date) (unknown) (unknown) at the lateral left thigh presumed hematoma versus seroma. She was also (units unknown) (unknown) (unknown) (no date) (unknown) (unknown) beanbag. Bony prominences were well padded. The left lower extremity was (units unknown) (unknown) (unknown) (no date) (unknown) (unknown) came back to the ER last night with increasing pain wound drainage and thigh (units unknown) (unknown) (unknown) (no date) (unknown) (unknown) cardiopulmonary complications and . The patient expressed a thorough (units unknown) (unknown) (unknown) (no date) (unknown) (unknown) concern for UTI. We will follow up in orthopedic clinic in 2 weeks for suture (units unknown) (unknown) (unknown) (no date) (unknown) (unknown) condition. There no immediate complications from this procedure. All counts (units unknown) (unknown) (unknown) (no date) (unknown) (unknown) consent confirmed. T he patient was brought back to the operating room by the (units unknown) (unknown) (unknown) (no date) (unknown) (unknown) damage to nerves and blood vessels, posttraumatic arthritis, DVT, PE, (units unknown) (unknown) (unknown) (no date) (unknown) (unknown) from the hospital on 10/08. She has been in a long term facility. She (units unknown) (unknown) (unknown) (no date) (unknown) (unknown) given the opportunit y to ask questions. The risks of surgery include but are (units unknown) (unknown) (unknown) (no date) (unknown) (unknown) hospitalist consult for medically complex patient, symptomatic loss anemia and (units unknown) (unknown) (unknown) (no date) (unknown) (unknown) hospitalization due to symptomatic blood loss anemia. She did receive 1 unit of (units unknown) (unknown) (unknown) (no date) (unknown) (unknown) incision that was dusky brown consistent with hematoma decompression. Remaining (units unknown) (unknown) (unknown) (no date) (unknown) (unknown) indicated for left thigh hematoma evacuation irrigation and debridement and (units unknown) (unknown) (unknown) (no date) (unknown) (unknown) left footdrop. (units unknown) (unknown) (unknown) (no date) (unknown) (unknown) less than 10 cc per shift or 48 hours whichever comes 1st. Internal medicine (units unknown) (unknown) (unknown) (no date) (unknown) (unknown) no active bleeding noted. Once this was completed the wound was debrided with a (units unknown) (unknown) (unknown) (no date) (unknown) (unknown) not limited to infection, need for additional procedures, persistence of pain, (units unknown) (unknown) (unknown) (no date) (unknown) (unknown) of appropriate preoperative antibiotics. All were in agreement. Additionally (units unknown) (unknown) (unknown) (no date) (unknown) (unknown) packed red cells in the operating room. She also had a low-grade fever prior to (units unknown) (unknown) (unknown) (no date) (unknown) (unknown) placed on the proxim al part of the incision. And a drain dressing was placed on (units unknown) (unknown) (unknown) (no date) (unknown) (unknown) prepped and draped i n the standard sterile fashion. A formal time-out procedure (units unknown) (unknown) (unknown) (no date) (unknown) (unknown) prophylaxis. Monitor H+H. Monitor drain output. Drain will be removed when (units unknown) (unknown) (unknown) (no date) (unknown) (unknown) removal. (units unknown) (unknown) (unknown) (no date) (unknown) (unknown) revision arthroplast y with cerclage wiring for fracture. She was discharged (units unknown) (unknown) (unknown) (no date) (unknown) (unknown) rongeur and curette. Old sutures were removed. Then a pulsatile lavage was (units unknown) (unknown) (unknown) (no date) (unknown) (unknown) side but there was firmness and some drainage from the proximal aspect of the (units unknown) (unknown) (unknown) (no date) (unknown) (unknown) cecilia were removed from the incision. Then a sharp blade was used to reopen (units unknown) (unknown) (unknown) (no date) (unknown) (unknown) swelling and worseni ng spasms. She was found to have a large fluid collection (units unknown) (unknown) (unknown) (no date) (unknown) (unknown) symptomatically anem ic with acute blood loss anemia hemoglobin 7.4. She was (units unknown) (unknown) (unknown) (no date) (unknown) (unknown) the greater trochanter (units unknown) (unknown) (unknown) (no date) (unknown) (unknown) the medium Hemovac. (units unknown) (unknown) (unknown) (no date) (unknown) (unknown) the patient had received 1 unit of packed red cells. (units unknown) (unknown) (unknown) (no date) (unknown) (unknown) the proximal 8 cm of the incision this immediately encountered hematoma which (units unknown) (unknown) (unknown) (no date) (unknown) (unknown) this was completed t he wound was closed in a layered fashion over a medium (units unknown) (unknown) (unknown) (no date) (unknown) (unknown) transfusion and the suspicion of UTI. Patient was noted to have a preoperative (units unknown) (unknown) (unknown) (no date) (unknown) (unknown) understanding of the risks and benefits of surgery and has elected to proceed. (units unknown) (unknown) (unknown) (no date) (unknown) (unknown) used to wash the wou nd with 3 L of saline. There was no purulence noted. Once (units unknown) (unknown) (unknown) (no date) (unknown) (unknown) was evacuated into [facility] kidney basin. This was approximately 100 cc. There was (units unknown) (unknown) (unknown) (no date) (unknown) (unknown) was performed confirming the patient's side and site of surgery administration (units unknown) (unknown) (unknown) (no date) (unknown) (unknown) were correct. (units unknown) (unknown) (unknown) (no date) (unknown) (unknown) wound. Old hematoma blood and clot evacuated. Purulence. (units unknown) (unknown) Social History date description facility 2022-09-14 00:00 Never smoked tobacco (finding) [facility] 2022-09-27 00:00 Never smoked tobacco (finding) [facility] 2022-09-29 00:00 Never smoked tobacco (finding) [facility] 2022-10-02 00:00 Never smoked tobacco (finding) [facility] 2022-10-21 00:00 Never smoked tobacco (finding) [facility] Vital Signs date measurement value units 2022-09-14 00:00 BMI 41.9 kg/m2 2022-09-14 00:00 height_metric 154.94 cm 2022-09-14 00:00 height_standard 61 in 2022-09-14 00:00 weight_metric 100.69 kg 2022-09-14 00:00 weight_standard 221.98 lb 2022-09-15 00:00 BP_diastolic 70 mmHg 2022-09-15 00:00 BP_systolic 120 mmHg 2022-09-15 00:00 heart_rate 98 /min 2022-09-15 00:00 o2_saturation 97 % 2022-09-15 00:00 respiration_rate 16 /min 2022-09-15 00:00 temperature_metric 36.78 C 2022-09-15 00:00 temperature_standard 98.2 F 2022-09-27 00:00 BMI 39.9 kg/m2 2022-09-27 00:00 BP_diastolic 94 mmHg 2022-09-27 00:00 BP_systolic 167 mmHg 2022-09-27 00:00 heart_rate 74 /min 2022-09-27 00:00 height_metric 154.94 cm 2022-09-27 00:00 height_standard 61 in 2022-09-27 00:00 o2_saturation 97 % 2022-09-27 00:00 respiration_rate 18 /min 2022-09-27 00:00 temperature_metric 36.56 C 2022-09-27 00:00 temperature_standard 97.8 F 2022-09-27 00:00 weight_metric 95.7 kg 2022-09-27 00:00 weight_standard 210.98 lb 2022-09-28 00:00 BP_diastolic 61 mmHg 2022-09-28 00:00 BP_systolic 106 mmHg 2022-09-28 00:00 heart_rate 71 /min 2022-09-28 00:00 o2_saturation 100 % 2022-09-28 00:00 respiration_rate 17 /min 2022-09-28 00:00 temperature_metric 36.72 C 2022-09-28 00:00 temperature_standard 98.1 F 2022-09-29 00:00 BMI 39.9 kg/m2 2022-09-29 00:00 BP_diastolic 57 mmHg 2022-09-29 00:00 BP_systolic 129 mmHg 2022-09-29 00:00 heart_rate 66 /min 2022-09-29 00:00 height_metric 154.94 cm 2022-09-29 00:00 height_standard 61 in 2022-09-29 00:00 o2_saturation 99 % 2022-09-29 00:00 respiration_rate 18 /min 2022-09-29 00:00 temperature_metric 37 C 2022-09-29 00:00 temperature_standard 98.6 F 2022-09-29 00:00 weight_metric 95.7 kg 2022-09-29 00:00 weight_standard 210.98 lb 2022-09-30 00:00 BP_diastolic 73 mmHg 2022-09-30 00:00 BP_systolic 139 mmHg 2022-09-30 00:00 heart_rate 66 /min 2022-09-30 00:00 o2_saturation 97 % 2022-09-30 00:00 respiration_rate 18 /min 2022-09-30 00:00 temperature_metric 37 C 2022-09-30 00:00 temperature_standard 98.6 F 2022-10-02 00:00 BMI 39.9 kg/m2 2022-10-02 00:00 BP_diastolic 63 mmHg 2022-10-02 00:00 BP_systolic 114 mmHg 2022-10-02 00:00 heart_rate 75 /min 2022-10-02 00:00 height_metric 154.94 cm 2022-10-02 00:00 height_standard 61 in 2022-10-02 00:00 o2_saturation 93 % 2022-10-02 00:00 respiration_rate 12 /min 2022-10-02 00:00 temperature_metric 36.5 C 2022-10-02 00:00 temperature_standard 97.7 F 2022-10-02 00:00 weight_metric 95.7 kg 2022-10-02 00:00 weight_standard 210.98 lb 2022-10-08 00:00 BP_diastolic 48 mmHg 2022-10-08 00:00 BP_systolic 115 mmHg 2022-10-08 00:00 heart_rate 78 /min 2022-10-08 00:00 o2_saturation 94 % 2022-10-08 00:00 respiration_rate 16 /min 2022-10-08 00:00 temperature_metric 36.89 C 2022-10-08 00:00 temperature_standard 98.4 F 2022-10-20 00:00 BMI 39.9 kg/m2 2022-10-20 00:00 height_metric 154.94 cm 2022-10-20 00:00 height_standard 61 in 2022-10-20 00:00 weight_metric 95.7 kg 2022-10-20 00:00 weight_standard 210.98 lb 2022-10-21 00:00 BP_diastolic 62 mmHg 2022-10-21 00:00 BP_systolic 131 mmHg 2022-10-21 00:00 heart_rate 91 /min 2022-10-21 00:00 height_metric 154.94 cm 2022-10-21 00:00 height_standard 61 in 2022-10-21 00:00 o2_saturation 92 % 2022-10-21 00:00 respiration_rate 17 /min 2022-10-21 00:00 temperature_metric 36.83 C 2022-10-21 00:00 temperature_standard 98.3 F 2022-10-21 00:00 weight_metric 95.7 kg 2022-10-21 00:00 weight_standard 210.98 lb 2022-10-24 00:00 BP_diastolic 70 mmHg 2022-10-24 00:00 BP_systolic 137 mmHg 2022-10-24 00:00 heart_rate 94 /min 2022-10-24 00:00 o2_saturation 95 % 2022-10-24 00:00 respiration_rate 20 /min 2022-10-24 00:00 temperature_metric 37.22 C 2022-10-24 00:00 temperature_standard 99 F
[2022-10-26 14:35] LABS: BASOPHILS % (AUTO) 0.4 %; EOSINOPHILS # (AUTO) 0.3 10^3/uL (0.0-0.7); EOSINOPHILS % (AUTO) 4.1 %; HCT - HEMATOCRIT 26.7 % (37.0-47.0); HGB - HEMOGLOBIN 8.5 g/dL (12.0-16.0); LYMPHOCYTES # (AUTO) 1.3 10^3/uL (1.5-3.5); LYMPHOCYTES % (AUTO) 17.6 %; MEAN CORPUSCULAR HEMOGLOBIN 28.2 pg (27.0-31.0); MEAN CORPUSCULAR HGB CONC 31.8 g/dL (32.0-36.0); MEAN CORPUSCULAR VOLUME 88.7 fL (81.0-99.0); MEAN PLATELET VOLUME 8.9 fL (7.9-10.8); MONOCYTES # (AUTO) 0.6 10^3/uL (0.0-1.0); NEUTROPHILS # (AUTO) 5.3 10^3/uL (1.5-6.6); NEUTROPHILS % (AUTO) 69.6 %; PLT - PLATELET COUNT 428 10^3/uL (130-450); RED BLOOD COUNT 3.01 10^6/uL (4.20-5.40); RED CELL DISTRIBUTION WIDTH 15.3 % (12.0-15.0); WHITE BLOOD COUNT 7.6 x10^3/uL (4.8-10.8)
[2022-10-26 14:51] LABS: CALCIUM 8.3 mg/dL (8.5-10.3); CREATININE 0.9 mg/dL (0.4-1.0); CRP - C-REACTIVE PROTEIN 16.7 mg/dL (0-1.0); POTASSIUM 3.4 mmol/L (3.5-5.0)
--- NOTE | 2022-10-26 15:33 | Ultrasound Report ---
PROCEDURE: Ext Limited Non Vascular INDICATIONS: Fluid collection size left hip TECHNIQUE: Real-time scanning was performed of the left hip, with image documentation. COMPARISON: None. FINDINGS: Targeted ultrasound of the left hip demonstrates a hematoma measuring 19.9 x 7.1 cm. IMPRESSION: Large left hematoma deep to the incision. Reviewed by: Gustavo Hager on 10/26/2022 3:32 PM PDT Approved by: Gustavo Hager on 10/26/2022 3:32 PM PDT Station ID: [id number]
[2022-10-26] MEDS ORDERED: AMOX/CLAV 875 MG/125 MG TABLET PO STA (16:15)
[2022-10-26] MEDS ORDERED: oxyCODONE 5 MG TABLET PO STA (16:15)
[2022-10-26 16:39] VITALS: BP 111/69
== END 2022-10-26 17:15 | disposition home or self-care (01) ==
LOC: EDUNIT# → ED 13:57
DX: M96.840 Postprocedural hematoma of a musculoskeletal structure following a musculoskeletal system procedure (principal)
CPT/HCPCS: 36415; 76882; 80048; 85025; 85651; 86140; 87040; 99283; 99284; A9270

== ENCOUNTER 2022-10-26 17:23 | Outpatient (CLI) | payer MEDICARE, OTHER | END 2022-10-26 17:24 | LOC: EMS 17:23 | PROVIDERS: ATTEND Emergency Medicine | DX: R53.1 Weakness (principal); S72.002D Fracture of unspecified part of neck of left femur, subsequent encounter for closed fracture with routine healing | CPT/HCPCS: A0425; A0428 ==

== ENCOUNTER 2022-10-27 06:44 | Outpatient (CLI) | payer MEDICARE, OTHER | END 2022-10-27 06:45 | disposition critical access hospital (66) | LOC: EMS 06:44 | DX: M25.552 Pain in left hip (principal) | CPT/HCPCS: A0425; A0429 ==

== ENCOUNTER 2022-10-27 06:51 | Emergency (ER) | payer MEDICARE, OTHER ==
--- NOTE | 2022-10-27 07:35 | ED Physician Documentation ---
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 Annika River. She has had some complications with this including for dislocations a second surgery requiring placement of a new cup and longer prosthesis as well as wiring. She has had 4 trips back to the hospital since her hip replacement. She is now residing at [facility]. She was seen here in the emergency department yesterday with increased pain and redness to her incision and she was diagnosed with a large hematoma with potential infection. She had normal white blood cell count with elevated ESR and CRP yesterday. She has been afebrile. She was started on Augmentin yesterday afternoon. This morning she was transported back to the hospital with increased pain. Her indicates that when she has gone too long without her pain medication, her pain will spike, and she will become agitated. The patient herself feels that she is slightly confused. Review of Systems Constitutional: denies: Fever, Chills Eyes: denies: Decreased vision Ears: denies: Ear pain Nose: denies: Rhinorrhea / runny nose, Congestion Throat: reports: Other (dry lips). denies: Sore throat Cardiac: denies: Chest pain / pressure, Palpitations Respiratory: denies: Dyspnea, Cough GI: denies: Abdominal Pain, Nausea, Vomiting, Constipation, Diarrhea : denies: Dysuria, Frequency Skin: denies: Rash Musculoskeletal: reports: Extremity pain, Joint pain, Extremity swelling, Joint swelling. denies: Neck pain, Back pain Neurologic: denies: Generalized weakness, Focal weakness, Numbness PD PAST MEDICAL HISTORY - Past Medical History Cardiovascular: High cholesterol Respiratory: None Endocrine/Autoimmune: None GI: GERD : Incontinence HEENT: Chronic vision loss, Chronic hearing loss Psych: Depression Musculoskeletal: Osteoporosis, Chronic back pain Derm: None - Past Surgical History Past Surgical History: Yes Ortho: Knee replacement, Other HEENT: Tonsil/Adenoidectomy - Present Medications Home Medications: Ambulatory Orders Medication Instructions Recorded Confirmed Escitalopram Oxalate [Lexapro] 20 mg PO DAILY 05/03/14 10/27/22 Atorvastatin [Lipitor] 20 mg PO HS 09/08/21 10/27/22 Acetaminophen [Tylenol] 650 mg PO Q6H PRN 10/26/22 10/27/22 Amox/Clav 875/125 [Augmentin] 1 each PO Q12H #20 tablet 10/26/22 10/27/22 Aspirin [[place] Aspirin] 81 mg PO DAILY 10/26/22 10/27/22 Cetirizine HCl [Allergy] 10 mg PO DAILY 10/26/22 10/27/22 Cyclobenzaprine [Flexeril] 10 mg PO Q8HR PRN 10/26/22 10/27/22 Oxycodone HCl 10 mg PO Q3HR PRN 10/26/22 10/27/22 Solifenacin Succinate 10 mg PO DAILY 10/26/22 10/27/22 hydrOXYzine PAMOATE [Vistaril] 25 mg PO DAILY 10/26/22 10/27/22 Docusate Sodium [Dulcolax Stool 100 mg PO BID 10/27/22 10/27/22 Softener] polyethylene glycoL 3350 [Miralax] 17 gm PO DAILY PRN 10/27/22 10/27/22 - Allergies Allergies/Adverse Reactions: Allergies Allergy/AdvReac Type Severity Reaction Status Date / Time No Known Drug Allergies Allergy Verified 10/27/22 07:03 - Social History Does the pt smoke?: No Smoking Status: Never smoker Does the pt drink ETOH?: No Does the pt have substance abuse?: No - POLST Patient has POLST: Yes PD ED PE NORMAL - Vitals Vital signs reviewed: Yes (hypertensvie afebrile ) - General General: No acute distress, Well developed/nourished - HEENT HEENT: Atraumatic, PERRL, EOMI, Other (parched mucous membranes lips are sticking together) - Neck Neck: Supple, no meningeal sign, No bony TTP - Cardiac Cardiac: RRR, No murmur - Respiratory Respiratory: No respiratory distress, Clear bilaterally - Abdomen Abdomen: Normal bowel sounds, Soft, Non tender, Non distended, No organomegaly - Back Back: No CVA TTP, No spinal TTP - Derm Derm: Normal color, Warm and dry - Extremities Extremities: Other (Left hip is held in a position of slight internal rotation and flexion. This is the position of comfort for the patient. The incision appears inflamed along its distal course and is not particulalry tender to palpation. The area is swollen in general. Pain is ellicited with movement. ) - Neuro Neuro: cotton baler 2-12 intact, No motor deficit, No sensory deficit, Normal speech Eye Opening: Spontaneous Motor: Obeys Commands Verbal: Confused GCS Score: 14 - Psych Psych: Normal mood, Normal affect Results - Vitals Vitals: Vital Signs - 24 hr 10/27/22 10/27/22 10/27/22 06:58 09:52 11:00 Temperature 37.1 C Heart Rate 92 91 85 Respiratory 22 18 18 Rate Blood Pressure 144/81 H 134/67 H 131/65 H O2 Saturation 99 95 93 10/27/22 10/27/22 13:30 15:00 Temperature Heart Rate 79 80 Respiratory 16 17 Rate Blood Pressure 118/63 87/64 L O2 Saturation Oxygen O2 Source [] Room air O2 Source [] Room air O2 Source Room air - Labs Labs: Microbiology 10/27/22 08:15 Wound Culture - Preliminary Hip - Left Laboratory Tests 10/27/22 10/27/22 10/27/22 08:15 08:15 08:15 WBC 11.7 H RBC 2.92 L Hgb 8.1 L Hct 25.3 L MCV 86.6 MCH 27.7 MCHC 32.0 RDW 15.1 H Plt Count 416 MPV 9.0 Neut # (Auto) 9.6 H Lymph # (Auto) 0.9 L Teller # (Auto) 1.0 Eos # (Auto) 0.1 Baso # (Auto) 0.0 Absolute Nucleated RBC 0.00 Nucleated RBC % 0.0 ESR 85 H Sodium Potassium Chloride Carbon Dioxide Anion Gap BUN Creatinine Estimated GFR (MDRD) Glucose Lactic Acid 0.9 Calcium Total Bilirubin AST ALT Alkaline Phosphatase C-Reactive Protein Total Protein Albumin Globulin Albumin/Globulin Ratio Lipase Nasal Adenovirus (PCR) Nasal B. parapertussis DNA (PCR) Nasal Coronavir 229E PCR Nasal Coronavir HKU1 PCR Nasal Coronavir NL63 PCR Nasal Coronavir OC43 PCR Nasal Enterovir/Rhinovir PCR Nasal Influenza B PCR Nasal Influenza A PCR Nasal Parainfluen 1 PCR Nasal Parainfluen 2 PCR Nasal Parainfluen 3 PCR Nasal Parainfluen 4 PCR Nasal RSV (PCR) Nasal B.pertussis DNA PCR Nasal C.pneumoniae (PCR) Stanton Human Metapneumo PCR Nasal M.pneumoniae (PCR) Nasal SARS-CoV-2 (PCR) 10/27/22 10/27/22 08:15 08:42 WBC RBC Hgb Hct MCV MCH MCHC RDW Plt Count MPV Neut # (Auto) Lymph # (Auto) Teller # (Auto) Eos # (Auto) Baso # (Auto) Absolute Nucleated RBC Nucleated RBC % ESR Sodium 133 L Potassium 3.2 L Chloride 92 L Carbon Dioxide 27 Anion Gap 14.0 H BUN 11 Creatinine 0.9 Estimated GFR (MDRD) 62 L Glucose 107 H Lactic Acid Calcium 8.2 L Total Bilirubin 0.7 AST 18 ALT 13 Alkaline Phosphatase 68 C-Reactive Protein 17.7 H Total Protein 5.7 L Albumin 2.4 L Globulin 3.3 Albumin/Globulin Ratio 0.7 L Lipase 23 Nasal Adenovirus (PCR) NOT DETECTED Nasal B. parapertussis DNA (PCR) NOT DETECTED Nasal Coronavir 229E PCR NOT DETECTED Nasal Coronavir HKU1 PCR NOT DETECTED Nasal Coronavir NL63 PCR NOT DETECTED Nasal Coronavir OC43 PCR NOT DETECTED Nasal Enterovir/Rhinovir PCR NOT DETECTED Nasal Influenza B PCR NOT DETECTED Nasal Influenza A PCR NOT DETECTED Nasal Parainfluen 1 PCR NOT DETECTED Nasal Parainfluen 2 PCR NOT DETECTED Nasal Parainfluen 3 PCR NOT DETECTED Nasal Parainfluen 4 PCR NOT DETECTED Nasal RSV (PCR) NOT DETECTED Nasal B.pertussis DNA PCR NOT DETECTED Nasal C.pneumoniae (PCR) NOT DETECTED Stanton Human Metapneumo PCR NOT DETECTED Nasal M.pneumoniae (PCR) NOT DETECTED Nasal SARS-CoV-2 (PCR) NOT DETECTED - Rads (name of study) hip R Relevant Findings:: Prelim report reviewed (Impression: No immediate postoperative films available for comparison. Total left hip arthroplasty. Cerclage wires transfix a greater trochanter fracture. More superior cerclage wires seem somewhat redundant. 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 Stefan bangura at [facility] will accept in transfer.) Reviewed Lab Results: We reviewed a complete blood count showing an elevated white blood blood cell count 11.7 a low hemoglobin of 8.1 and a low hematocrit of 25.3 this is similar to her values from yesterday with the exception of the white blood cell count which is now elevated. Platelets are normal. We evaluated chemistry panel showing multiple electrolyte abnormalities with a low serum sodium low potassium, low chloride, normal BUN and creatinine normal liver functions CRP is elevated at 17.7 which is slightly elevated from yesterday. ESR is further elevated today at 85 up from 76 yesterday. Lactate is normal 0.9. My interpretation of these laboratory results show continued significant anemia not at the transfusion threshold. White blood cell count elevated above yesterday concerning for infection. Inflammatory markers further elevated concerning for infection as well. The electrolyte abnormalities consistent with the level of dehydration the patient demonstrates on interrogation of the inferior vena cava with POCUS. ED course: 72-year-old female s/p total hip replacement with complications presents to the emergency department again today with increased pain after evaluation yesterday here in the emergency department. In the interim she has been placed on Augmentin and despite this has more pain today with movement. I found the patient to be comfortable at rest but with any movement of the leg having significant pain.Today there is increased white blood cell count the patient is significantly dehydrated on interrogation of her inferior vena cava with POCUS and she has electrolyte abnormalities as well with both hyponatremia and hypokalemia. She is administered saline and potassium. The orthopedic surgeon Dr. Chuckie Preston is consulted in the case and recommends transfer the patient back to [facility]. The hospitalist at [facility] felt it would be inappropriate to admit the patient without an ID consult. We were able to provide the patient with pain medication in the form of hydrocodone 10mg and she had marked improvement in her pain. She was able to tell us that she asked for pain medication in the plant cytologist hours and she did not get this. Her pain mounted and worsened and when her wound was investigated there was some drainage on the dressing and she was sent to the hospital with worsening pain and drainage from her wound. She arrived in the ED in pain and markedly dehydrated. She has some serous drainage on the lower portion of her wound and this appears to have a superficial cellulitis associated. I considered deep infection to the wound in the differential and became concerned with the patient's level of pain. Her pain was actually more e asily controlled than I expected. This led me to believe that maybe pain control was the issue and not a deep infection. Departure - Departure Disposition: 01 Home, Self Care Clinical Impression: Postoperative hematoma Qualifiers: Surgical complication system/body Area: musculoskeletal system Procedure type: musculoskeletal Qualified Code(s): M96.840 - Postprocedural hematoma of a musculoskeletal structure following a musculoskeletal system procedure Cellulitis Qualifiers: Site of cellulitis: extremity Site of cellulitis of extremity: lower extremity Laterality: left Qualified Code(s): L03.116 - Cellulitis of left lower limb Instructions: ED Infec Skin Cellulitis Follow-Up: Maria Teresa Larsen PA-C [Primary Care Provider] - Annika River MD [Physician No Access] - Comments: Selene, today it looks like you have an infection in the incision site of your surgery. This is a potentially serious infection if it is as deep as the hardware. Today it looks like this is more superficial. The recommendation is to continue the antibiotic we prescribed yesterday and to follow-up with Dr. Annika River as planned on Saturday. If you have worsening of your pain, fever or "purulent" (pus and not the clear yellow fluid) drainage a repeat evaluation is indicated and the recommendation is to take the ambulance directly to [facility] to be cared for by your surgeon. It is important to "stay on top of your pain" and ask for pain medication when needed.
[2022-10-27] MEDS ORDERED: SODIUM CHLORIDE 0.9% 1,000 ML IV STA ×2 (07:47→14:09)
--- NOTE | 2022-10-27 08:02 | XRAY Report ---
PROCEDURE: Chest 1 View X-Ray INDICATIONS: chest pain TECHNIQUE: One view of the chest was acquired. COMPARISON: None. FINDINGS: Surgical changes and devices: None. Lungs and pleura: No pleural effusions or pneumothorax. Lungs are clear. Mediastinum: Mediastinal contours appear normal. Heart size is normal. Bones and chest wall: No suspicious bony lesions. Overlying soft tissues appear unremarkable. IMPRESSION: No acute cardiopulmonary process. Reviewed by: Martin Lau MD on 10/27/2022 8:01 AM PDT Approved by: Martin Lau MD on 10/27/2022 8:01 AM PDT Station ID: [id number]
[2022-10-27] MEDS ORDERED: KETOROLAC 30 MG/ML VIAL IVP STA (08:38)
[2022-10-27 08:42] LABS: BASOPHILS % (AUTO) 0.2 %; EOSINOPHILS # (AUTO) 0.1 10^3/uL (0.0-0.7); EOSINOPHILS % (AUTO) 0.9 %; HCT - HEMATOCRIT 25.3 % (37.0-47.0); HGB - HEMOGLOBIN 8.1 g/dL (12.0-16.0); LYMPHOCYTES # (AUTO) 0.9 10^3/uL (1.5-3.5); LYMPHOCYTES % (AUTO) 7.7 %; MEAN CORPUSCULAR HEMOGLOBIN 27.7 pg (27.0-31.0); MEAN CORPUSCULAR VOLUME 86.6 fL (81.0-99.0); MONOCYTES % (AUTO) 8.1 %; NEUTROPHILS # (AUTO) 9.6 10^3/uL (1.5-6.6); NEUTROPHILS % (AUTO) 82.6 %; PLT - PLATELET COUNT 416 10^3/uL (130-450); RED BLOOD COUNT 2.92 10^6/uL (4.20-5.40); RED CELL DISTRIBUTION WIDTH 15.1 % (12.0-15.0); WHITE BLOOD COUNT 11.7 x10^3/uL (4.8-10.8)
--- NOTE | 2022-10-27 08:48 | XRAY Report ---
PROCEDURE: Hip w/Pelvis 2-3V LT INDICATIONS: hip pain. Status post left hip revision several days ago TECHNIQUE: AP pelvis with lateral view(s) of the left hip(s). COMPARISON: No immediate postop films for comparison FINDINGS: Bones: Total left hip prosthesis with a long stem femoral component. There is a cerclage wire bridgin g a greater trochanter fracture. The cerclage wire is somewhat redundant. No evidence of hardware loo sening. Soft tissues: No suspicious soft tissue calcifications or masses. IMPRESSION: No immediate postoperative films available for comparison. Total left hip arthroplasty. Cerclage wire s transfix a greater trochanter fracture. The more superior cerclage wires seem somewhat redundant. Comment: Comparison to immediate postoperative imaging may be helpful. Reviewed by: Martin Lau MD on 10/27/2022 8:46 AM PDT Approved by: Martin Lau MD on 10/27/2022 8:46 AM PDT Station ID: [id number]
[2022-10-27 09:05] LABS: ALBUMIN 2.4 g/dL (3.2-5.5); ALBUMIN/GLOBULIN RATIO 0.7 (1.0-2.2); BILIRUBIN,TOTAL 0.7 mg/dL (0.2-1.0); CALCIUM 8.2 mg/dL (8.5-10.3); CREATININE 0.9 mg/dL (0.4-1.0); CRP - C-REACTIVE PROTEIN 17.7 mg/dL (0-1.0); POTASSIUM 3.2 mmol/L (3.5-5.0); TOTAL PROTEIN 5.7 g/dL (6.7-8.2)
[2022-10-27] MEDS ORDERED: POTASSIUM CHLOR 10 MEQ/100 ML 10 MEQ/100 ML BAG IV ONE ×2 (09:14→14:10)
[2022-10-27 09:51] LABS: B. PARAPERTUSSIS- RESP PCR PAN NOT DETECTED; B. PERTUSSIS- RESP PCR PANEL NOT DETECTED; C. PNEUMONIAE- RESP PCR PANEL NOT DETECTED; CORONAVIRUS 229E-RESP PCR NOT DETECTED; CORONAVIRUS HKU1-RESP PCR NOT DETECTED; CORONAVIRUS NL63-RESP PCR NOT DETECTED; CORONAVIRUS OC43-RESP PCR NOT DETECTED; HUMAN METAPNEUMOVIRUS NOT DETECTED; INFLUENZA A- RESP PCR PANEL NOT DETECTED; INFLUENZA B - RESP PCR PANEL NOT DETECTED; M. PNEUMONIAE- RESP PCR PANEL NOT DETECTED; PARAINFLUENZA VIRUS 1 NOT DETECTED; PARAINFLUENZA VIRUS 2 NOT DETECTED; PARAINFLUENZA VIRUS 3 NOT DETECTED; PARAINFLUENZA VIRUS 4 NOT DETECTED; RHINOVIRUS/ENTEROVIRUS NOT DETECTED; RSV- RESP PCR PANEL NOT DETECTED; SARS-CoV-2 -RESP PCR PANEL NOT DETECTED
[2022-10-27] MEDS ORDERED: HYDROcod/ACETAM 5/325 MG TABLET PO STA (12:35)
[2022-10-27] MEDS ORDERED: AMOX/CLAV 875 MG/125 MG TABLET PO STA (16:26)
[2022-10-27 17:38] VITALS: BP 115/62
--- NOTE | 2022-10-30 12:10 | ED Physician Documentation ---
ED Addendum - Addendum Addendum: 10/30/22 12:08 The patient had had orthopedic surgery by Annika River. There was concern for wound infection. Seen here on the with a culture obtained. She had been started on Augmentin empirically the day before. Wound culture today is growing out final results of Pseudomonas aeruginosa which is resistant to cefazolin and presumably penicillin then. Its not specifically tested. It is sensitive to quinolones. The patient does not have any allergies to medicines. The note from the ER on the states the patient was supposed to be seen in the office on the which was yesterday. The provider here in the ER had talked to the on-call orthopedic coverage. We will have nursing call and see if the patient did follow-up yesterday in the office and if they are done in an amendment and antibiotics. If the they had not been seen yet, they be encouraged to do so and we could also change from the Augmentin to Levaquin 500 mg daily. At this point I did not send it into the pharmacy but we will see if it is already been covered as yet.
== END 2022-10-27 17:55 | disposition home or self-care (01) ==
LOC: ED 06:51
DX: M96.840 Postprocedural hematoma of a musculoskeletal structure following a musculoskeletal system procedure (principal); L03.116 Cellulitis of left lower limb; T81.49XA Infection following a procedure, other surgical site, initial encounter; B96.5 Pseudomonas (aeruginosa) (mallei) (pseudomallei) as the cause of diseases classified elsewhere; E86.0 Dehydration; E87.1 Hypo-osmolality and hyponatremia; E87.6 Hypokalemia; Z20.822 Contact with and (suspected) exposure to COVID-19; Z74.01 Bed confinement status
CPT/HCPCS: 36415; 71045; 73502; 80053; 83605; 83690; 85025; 85651; 86140; 87040; 87070; 87077; 87181; 87205; 87633; 96361; 96365; 96366; 96375; 99284; A9270

== ENCOUNTER 2022-10-27 17:53 | Outpatient (CLI) | payer MEDICARE, OTHER | END 2022-10-27 17:54 | LOC: EMS 17:53 | PROVIDERS: ATTEND Emergency Medicine | DX: M96.840 Postprocedural hematoma of a musculoskeletal structure following a musculoskeletal system procedure (principal); Z74.01 Bed confinement status | CPT/HCPCS: A0425; A0428 ==

== ENCOUNTER 2022-11-03 08:00 | Outpatient (CLI) | payer MEDICARE, OTHER ==
[2022-11-03 12:27] LABS: GLUCOSE, URINE (UA) NEGATIVE (NEGATIVE); KETONES,URINE (UA) 15 mg/dL (NEGATIVE); LEUKOCYTE ESTERASE, URINE NEGATIVE (NEGATIVE); NITRITE,URINE NEGATIVE (NEGATIVE); OCCULT BLOOD,URINE NEGATIVE (NEGATIVE); PH,URINE 6.5 PH (5.0-7.5); PROTEIN,URINE NEGATIVE (NEGATIVE); UROBILINOGEN,URINE 0.2 (NORMAL) E.U./dL (NORMAL)
[2022-11-03 12:34] LABS: CALCIUM 8.1 mg/dL (8.5-10.3); CREATININE 0.8 mg/dL (0.4-1.0); POTASSIUM 2.9 mmol/L (3.5-5.0)
[2022-11-03 12:40] LABS: CLARITY,URINE HAZY (CLEAR); RBC,URINE 0-5 /HPF (0-5); WBC,URINE 0-3 /HPF (0-5)
[2022-11-03 12:47] LABS: BACTERIA,URINE Few /HPF (None Seen); BILIRUBIN,URINE NEGATIVE (NEGATIVE); ICTOTEST,URINE NEGATIVE; SQUAMOUS EPITHELIAL CELL,UR FEW Squamous (<= Few); YEAST,URINE PRESENT
== END 2022-11-03 23:59 | disposition home or self-care (01) ==
LOC: LAB.R 08:00
PROVIDERS: ATTEND Registered Nurse
DX: R44.3 Hallucinations, unspecified (principal)
CPT/HCPCS: 80048; 81001; 87086

== ENCOUNTER 2022-11-12 16:49 | Outpatient (CLI) | payer MEDICARE, OTHER | END 2022-11-12 23:59 | disposition critical access hospital (66) | LOC: EMS 16:49 | DX: K92.0 Hematemesis (principal) | CPT/HCPCS: A0425; A0429 ==

== ENCOUNTER 2022-11-12 16:56 | Inpatient (IN) | payer MEDICARE, OTHER ==
[2022-11-12] MEDS ORDERED: SODIUM CHLORIDE 0.9% 1,000 ML IV STA ×2 (17:04→20:40)
--- NOTE | 2022-11-12 17:07 | ED Physician Documentation ---
History of Present Illness - Stated complaint Stated Complaint: VOMITING - Chief complaint Chief Complaint: General - History obtained from History obtained from: Patient, EMS - History of Present Illness Timing: Yesterday Pain level max: 0 Pain level now: 0 - Additonal information Additional information: 72 year old female with nausea, vomiting, diarrhea since yesterday. She states that she has had 4 operations on the left hip recently. The last one was about 4 days ago. A pin was removed that was causing bleeding into the hip. She states that the pain has decreased and the swelling is decreased. No fevers. No chills. Started having nausea, vomiting yesterday and today. Has had diarrhea as well. She has felt mildly lightheaded and dizzy. She states the emesis was dark today. Review of Systems Constitutional: denies: Fever, Chills Nose: denies: Rhinorrhea / runny nose, Congestion Respiratory: denies: Cough GI: reports: Nausea, Vomiting, Other (Dark emesis). denies: Diarrhea, Bloody / black stool : denies: Dysuria, Frequency, Hesitancy Skin: denies: Rash Musculoskeletal: denies: Neck pain, Back pain Neurologic: denies: Headache PD PAST MEDICAL HISTORY - Past Medical History Cardiovascular: High cholesterol Respiratory: None Endocrine/Autoimmune: None GI: GERD : Incontinence HEENT: Chronic vision loss, Chronic hearing loss Psych: Depression Musculoskeletal: Osteoporosis, Chronic back pain Derm: None - Past Surgical History Past Surgical History: Yes Ortho: Knee replacement, Other HEENT: Tonsil/Adenoidectomy - Present Medications Home Medications: Ambulatory Orders Medication Instructions Recorded Confirmed Escitalopram Oxalate [Lexapro] 20 mg PO DAILY 05/03/14 10/27/22 Atorvastatin [Lipitor] 20 mg PO HS 09/08/21 10/27/22 Acetaminophen [Tylenol] 650 mg PO Q6H PRN 10/26/22 10/27/22 Amox/Clav 875/125 [Augmentin] 1 each PO Q12H #20 tablet 10/26/22 10/27/22 Aspirin [Blacktail Aspirin] 81 mg PO DAILY 10/26/22 10/27/22 Cetirizine HCl [Allergy] 10 mg PO DAILY 10/26/22 10/27/22 Cyclobenzaprine [Flexeril] 10 mg PO Q8HR PRN 10/26/22 10/27/22 Oxycodone HCl 10 mg PO Q3HR PRN 10/26/22 10/27/22 Solifenacin Succinate 10 mg PO DAILY 10/26/22 10/27/22 hydrOXYzine PAMOATE [Vistaril] 25 mg PO DAILY 10/26/22 10/27/22 Docusate Sodium [Dulcolax Stool 100 mg PO BID 10/27/22 10/27/22 Softener] polyethylene glycoL 3350 [Miralax] 17 gm PO DAILY PRN 10/27/22 10/27/22 - Allergies Allergies/Adverse Reactions: Allergies Allergy/AdvReac Type Severity Reaction Status Date / Time No Known Drug Allergies Allergy Verified 11/12/22 17:09 - Social History Does the pt smoke?: No Smoking Status: Never smoker Does the pt drink ETOH?: No Does the pt have substance abuse?: No - Immunizations Immunizations are current?: Yes - POLST Patient has POLST: Yes PD ED PE NORMAL - Vitals Vital signs reviewed: Yes - General General: Alert and oriented X 3, No acute distress - HEENT HEENT: PERRL, Moist mucous membranes - Neck Neck: Supple, no meningeal sign - Cardiac Cardiac: RRR, Strong equal pulses - Respiratory Respiratory: No respiratory distress, Clear bilaterally - Abdomen Abdomen: Soft, Non tender, Non distended - Back Back: No CVA TTP, No spinal TTP - Derm Derm: Warm and dry - Extremities Extremities: No edema, No calf tenderness / cord, Other (Left hip incision is clean, dry, and intact without signs of infection.) - Neuro Neuro: Alert and oriented X 3 - Psych Psych: Normal mood, Normal affect Results - Vitals Vitals: Vital Signs - 24 hr 11/12/22 11/12/22 11/12/22 17:02 17:24 19:08 Temperature 36.0 C L Heart Rate 112 H 109 H Respiratory 20 18 Rate Blood Pressure 103/71 98/65 O2 Saturation 98 98 99 Oxygen O2 Source [With Activity] Room air O2 Source [Without Activity] Room air O2 Source Room air - Labs Labs: Laboratory Tests 11/12/22 11/12/22 11/12/22 17:22 17:22 17:24 WBC 15.6 H RBC 2.45 L Hgb 7.0 L* Hct 22.7 L MCV 92.7 MCH 28.6 MCHC 30.8 L RDW 16.9 H Plt Count 639 H MPV 9.3 Neut # (Auto) 10.5 H Lymph # (Auto) 3.5 Hardin # (Auto) 0.9 Eos # (Auto) 0.4 Baso # (Auto) 0.1 Absolute Nucleated RBC 0.03 Nucleated RBC % 0.2 PT INR APTT Sodium 137 Potassium 3.5 Chloride 101 Carbon Dioxide 27 Anion Gap 9.0 BUN 43 H Creatinine 0.9 Estimated GFR (MDRD) 62 L Glucose 125 H Calcium 8.0 L Total Bilirubin 0.4 AST 20 ALT 12 Alkaline Phosphatase 74 Total Protein 5.3 L Albumin 2.0 L Globulin 3.3 Albumin/Globulin Ratio 0.6 L Lipase 21 L Nasal Adenovirus (PCR) Nasal B. parapertussis DNA (PCR) Nasal Coronavir 229E PCR Nasal Coronavir HKU1 PCR Nasal Coronavir NL63 PCR Nasal Coronavir OC43 PCR Nasal Enterovir/Rhinovir PCR Nasal Influenza B PCR Nasal Influenza A PCR Nasal Parainfluen 1 PCR Nasal Parainfluen 2 PCR Nasal Parainfluen 3 PCR Nasal Parainfluen 4 PCR Nasal RSV (PCR) Nasal B.pertussis DNA PCR Nasal C.pneumoniae (PCR) Stanton Human Metapneumo PCR Nasal M.pneumoniae (PCR) Nasal SARS-CoV-2 (PCR) Gastric Fluid pH Gastric Occult Blood Blood Type O POSITIVE Blood Type Recheck Antibody Screen NEGATIVE Crossmatch IS Only See Detail 11/12/22 11/12/22 11/12/22 17:46 18:48 18:58 WBC RBC Hgb Hct MCV MCH MCHC RDW Plt Count MPV Neut # (Auto) Lymph # (Auto) Hardin # (Auto) Eos # (Auto) Baso # (Auto) Absolute Nucleated RBC Nucleated RBC % PT INR APTT Sodium Potassium Chloride Carbon Dioxide Anion Gap BUN Creatinine Estimated GFR (MDRD) Glucose Calcium Total Bilirubin AST ALT Alkaline Phosphatase Total Protein Albumin Globulin Albumin/Globulin Ratio Lipase Nasal Adenovirus (PCR) NOT DETECTED Nasal B. parapertussis DNA (PCR) NOT DETECTED Nasal Coronavir 229E PCR NOT DETECTED Nasal Coronavir HKU1 PCR NOT DETECTED Nasal Coronavir NL63 PCR NOT DETECTED Nasal Coronavir OC43 PCR NOT DETECTED Nasal Enterovir/Rhinovir PCR NOT DETECTED Nasal Influenza B PCR NOT DETECTED Nasal Influenza A PCR NOT DETECTED Nasal Parainfluen 1 PCR NOT DETECTED Nasal Parainfluen 2 PCR NOT DETECTED Nasal Parainfluen 3 PCR NOT DETECTED Nasal Parainfluen 4 PCR NOT DETECTED Nasal RSV (PCR) NOT DETECTED Nasal B.pertussis DNA PCR NOT DETECTED Nasal C.pneumoniae (PCR) NOT DETECTED Stanton Human Metapneumo PCR NOT DETECTED Nasal M.pneumoniae (PCR) NOT DETECTED Nasal SARS-CoV-2 (PCR) NOT DETECTED Gastric Fluid pH TNP Gastric Occult Blood POSITIVE A Blood Type Blood Type Recheck O POSITIVE Antibody Screen Crossmatch IS Only 11/12/22 21:05 WBC RBC Hgb Hct MCV MCH MCHC RDW Plt Count MPV Neut # (Auto) Lymph # (Auto) Hardin # (Auto) Eos # (Auto) Baso # (Auto) Absolute Nucleated RBC Nucleated RBC % PT 15.5 H INR 1.4 H APTT 30.2 Sodium Potassium Chloride Carbon Dioxide Anion Gap BUN Creatinine Estimated GFR (MDRD) Glucose Calcium Total Bilirubin AST ALT Alkaline Phosphatase Total Protein Albumin Globulin Albumin/Globulin Ratio Lipase Nasal Adenovirus (PCR) Nasal B. parapertussis DNA (PCR) Nasal Coronavir 229E PCR Nasal Coronavir HKU1 PCR Nasal Coronavir NL63 PCR Nasal Coronavir OC43 PCR Nasal Enterovir/Rhinovir PCR Nasal Influenza B PCR Nasal Influenza A PCR Nasal Parainfluen 1 PCR Nasal Parainfluen 2 PCR Nasal Parainfluen 3 PCR Nasal Parainfluen 4 PCR Nasal RSV (PCR) Nasal B.pertussis DNA PCR Nasal C.pneumoniae (PCR) Stanton Human Metapneumo PCR Nasal M.pneumoniae (PCR) Nasal SARS-CoV-2 (PCR) Gastric Fluid pH Gastric Occult Blood Blood Type Blood Type Recheck Antibody Screen Crossmatch IS Only - Rads (name of study) CT abdomen pelvis Relevant Findings:: Final report received, See rad report PD Medical Decision Making - ED course Complexity details: reviewed results, re-evaluated patient, considered differential, d/w patient, d/w family ED course: Patient is a 72-year-old female who presents to the emergency department with dark hematemesis and dark stools. Given Protonix IV. Given IV fluids. She did have a recent blood transfusion after a hematoma in her left thigh. She has had several recent left hip surgeries and revisions. The incision does not appear infected today. No redness or swelling. No drainage. She states the hip is not causing her pain. She is not on blood thinners. She is not taking NSAIDs. She is on aspirin 81 mg twice daily. Discussed the case with Dr. Bolivar, general surgery who will consult on the patient tomorrow and scope if needed. If she worsens tonight, she can be reached for an urgent/emergent scope. I also spoke with Dr. Thomas, orthopedics, he recommends continuing the cefepime 2 g IV every 8 hours as previously prescribed by Dr. River from orthopedics at [facility]. Discussed the case with the nighttime hospitalist, who accepts for admission. Patient will be admitted for GI bleed and further care. CT abdomen pelvis performed as well. This document was made in part using voice recognition software. While efforts are made to proofread this document, sound alike and grammatical errors may occur. Departure - Departure Disposition: 66 [facility] DC/Xfer Clinical Impression: Melena, Coffee ground emesis Anemia Qualifiers: Anemia type: unspecified type Qualified Code(s): D64.9 - Anemia, unspecified Vomiting Qualifiers: Vomiting type: hematemesis Nausea presence: with nausea Qualified Code(s): K92.0 - Hematemesis Condition: Stable
[2022-11-12 17:45] LABS: BASOPHILS # (AUTO) 0.1 10^3/uL (0.0-0.1); BASOPHILS % (AUTO) 0.6 %; EOSINOPHILS # (AUTO) 0.4 10^3/uL (0.0-0.7); EOSINOPHILS % (AUTO) 2.6 %; HCT - HEMATOCRIT 22.7 % (37.0-47.0); LYMPHOCYTES # (AUTO) 3.5 10^3/uL (1.5-3.5); LYMPHOCYTES % (AUTO) 22.5 %; MEAN CORPUSCULAR HEMOGLOBIN 28.6 pg (27.0-31.0); MEAN CORPUSCULAR HGB CONC 30.8 g/dL (32.0-36.0); MEAN CORPUSCULAR VOLUME 92.7 fL (81.0-99.0); MEAN PLATELET VOLUME 9.3 fL (7.9-10.8); MONOCYTES # (AUTO) 0.9 10^3/uL (0.0-1.0); NEUTROPHILS # (AUTO) 10.5 10^3/uL (1.5-6.6); NEUTROPHILS % (AUTO) 67.3 %; NRBC ABSOLUTE COUNT (AUTO) 0.03 x10^3/uL; NUCLEATED RED BLOOD CELLS AUTO 0.2 /100WBC; PLT - PLATELET COUNT 639 10^3/uL (130-450); RED BLOOD COUNT 2.45 10^6/uL (4.20-5.40); RED CELL DISTRIBUTION WIDTH 16.9 % (12.0-15.0); WHITE BLOOD COUNT 15.6 x10^3/uL (4.8-10.8)
[2022-11-12 17:52] LABS: ALBUMIN/GLOBULIN RATIO 0.6 (1.0-2.2); BILIRUBIN,TOTAL 0.4 mg/dL (0.2-1.0); CREATININE 0.9 mg/dL (0.4-1.0); POTASSIUM 3.5 mmol/L (3.5-5.0); TOTAL PROTEIN 5.3 g/dL (6.7-8.2)
[2022-11-12] MEDS ORDERED: PROMETHAZINE INJ 25 MG in SODIUM CHLORIDE 0.9% 50 ML IV STA (18:38)
[2022-11-12] MEDS ORDERED: PANTOPRAZOLE 40 MG VIAL IVP STA (18:42)
[2022-11-12] MEDS ORDERED: PROMETHAZINE 25 MG/1 ML VIAL ONE (18:48)
[2022-11-12 18:51] LABS: B. PARAPERTUSSIS- RESP PCR PAN NOT DETECTED; B. PERTUSSIS- RESP PCR PANEL NOT DETECTED; C. PNEUMONIAE- RESP PCR PANEL NOT DETECTED; CORONAVIRUS 229E-RESP PCR NOT DETECTED; CORONAVIRUS HKU1-RESP PCR NOT DETECTED; CORONAVIRUS NL63-RESP PCR NOT DETECTED; CORONAVIRUS OC43-RESP PCR NOT DETECTED; HUMAN METAPNEUMOVIRUS NOT DETECTED; INFLUENZA A- RESP PCR PANEL NOT DETECTED; INFLUENZA B - RESP PCR PANEL NOT DETECTED; M. PNEUMONIAE- RESP PCR PANEL NOT DETECTED; PARAINFLUENZA VIRUS 1 NOT DETECTED; PARAINFLUENZA VIRUS 2 NOT DETECTED; PARAINFLUENZA VIRUS 3 NOT DETECTED; PARAINFLUENZA VIRUS 4 NOT DETECTED; RHINOVIRUS/ENTEROVIRUS NOT DETECTED; RSV- RESP PCR PANEL NOT DETECTED; SARS-CoV-2 -RESP PCR PANEL NOT DETECTED
[2022-11-12 19:01] LABS: GASTROCCULT POSITIVE (Negative)
[2022-11-12 21:21] LABS: INR 1.4 (0.8-1.2); PT - PROTHROMBIN TIME 15.5 secs (9.9-12.6)
[2022-11-12 21:28] LABS: PARTIAL THROMBOPLASTIN TIME 30.2 secs (24.9-33.3)
[2022-11-12] MEDS ORDERED: ACETAMINOPHEN 325 MG TABLET PO PRN (21:37)
--- NOTE | 2022-11-12 21:57 | HISTORY & PHYSICAL EXAMINATION ---
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 She states that she has had 4 operations on the left hip recently. The last one was about 4 days ago. A pin was removed that was causing bleeding into the hip. She states that the pain has decreased and the swelling is decreased. No fevers. No chills. Started having nausea, vomiting yesterday and today. Has had diarrhea as well. She has felt mildly lightheaded and dizzy. She states the emesis was dark today. No etoh use, no varices no smoking, this is the first episode of GIB. She does admit to taking NSAIDS on a regular basis lately due to her hip surgery and for pain control Patient is extremely nice and pleasant with a very supportive and a wonderful daugther. Patient has 2 kids and 6 grand kids. She wants to be full code. No allergies. Home meds briefly reviewed with her History - Past Medical History Cardiovascular: reports: High cholesterol Respiratory: reports: None Endocrine/Autoimmune: reports: None GI: reports: GERD : reports: Incontinence HEENT: reports: Chronic vision loss, Chronic hearing loss Psych: reports: Depression Musculoskeletal: reports: Osteoporosis, Chronic back pain Derm: reports: None MRSA Hx?: No - Past Surgical History Ortho: reports: Knee replacement, Other HEENT: reports: Tonsil/Adenoidectomy - POLST Patient has POLST: Yes Meds/Allgy - Home Medications Home Medications: Ambulatory Orders Medication Instructions Recorded Confirmed Escitalopram Oxalate [Lexapro] 20 mg PO DAILY 05/03/14 10/27/22 Atorvastatin [Lipitor] 20 mg PO HS 09/08/21 10/27/22 Acetaminophen [Tylenol] 650 mg PO Q6H PRN 10/26/22 10/27/22 Amox/Clav 875/125 [Augmentin] 1 each PO Q12H #20 tablet 10/26/22 10/27/22 Aspirin [Yell Aspirin] 81 mg PO DAILY 10/26/22 10/27/22 Cetirizine HCl [Allergy] 10 mg PO DAILY 10/26/22 10/27/22 Cyclobenzaprine [Flexeril] 10 mg PO Q8HR PRN 10/26/22 10/27/22 Oxycodone HCl 10 mg PO Q3HR PRN 10/26/22 10/27/22 Solifenacin Succinate 10 mg PO DAILY 10/26/22 10/27/22 hydrOXYzine PAMOATE [Vistaril] 25 mg PO DAILY 10/26/22 10/27/22 Docusate Sodium [Dulcolax Stool 100 mg PO BID 10/27/22 10/27/22 Softener] polyethylene glycoL 3350 [Miralax] 17 gm PO DAILY PRN 10/27/22 10/27/22 - Allergies Allergies/Adverse Reactions: Allergies Allergy/AdvReac Type Severity Reaction Status Date / Time No Known Drug Allergies Allergy Verified 11/12/22 17:09 Review of Systems - Ears, Nose & Throat Ears, Nose & Throat: reports: Hearing loss - Gastrointestinal Gastrointestinal: reports: Diarrhea, Vomiting, Coffee grounds emesis - Musculoskeletal Musculoskeletal: reports: Joint pain Prior Level of Functionality: Independent with ADL also still drives Exam - Vital Signs Reviewed Vital Signs: Yes Vital Signs: Vital Signs x48h Temp Pulse Resp BP Pulse Ox 11/12/22 19:08 109 H 18 98/65 99 11/12/22 17:24 98 11/12/22 17:02 36.0 C L 112 H 20 103/71 98 - Physical Exam General Appearance: positive: No acute distress Eyes Bilateral: positive: Normal inspection, PERRL ENT: positive: ENT inspection nml Neck: positive: Nml inspection, No JVD Respiratory: positive: Chest non-tender Cardiovascular: positive: Regular rate & rhythm Abdomen: positive: Non-tender, No organomegaly, Nml bowel sounds, No distention Back: positive: Nml inspection Skin: positive: Color nml, No rash Extremities: positive: Non-tender, Full ROM, Nml appearance Neurologic/Psychiatric: positive: Oriented x3, CN's nml (2-12), Motor nml, Sensation nml Sepsis Event Note (H) - Evaluation Current Stage of Sepsis: Ruled out Conclusion/Plan - Problem List (1) UGIB (upper gastrointestinal bleed) Conclusion/Plan: NPO except sips and ice chips Possible NSAID induced gastritis and ulcer IV protonbix bid Surgery consulted by ER Plan fopr EGD in am Transfuse if Hb < 7 Verbal consent obtained for blood transfusion (3) Depression Conclusion/Plan: Continue Lexapro in good spirits no SI or Hi (5) History of hip surgery Conclusion/Plan: Tylenol or moprhine prn pain Hold NSAIDS PT to work with patient - Lab Results Fish Bones: 11/12/22 17:22 11/12/22 17:22 - Diagnostic Imaging Results Diagnostic Imaging Results: positive: Prelim report reviewed - EKG Results EKG Interpreted Independently: No
--- NOTE | 2022-11-12 22:03 | CT Report ---
PROCEDURE: ABDOMEN/PELVIS W INDICATIONS: abd pain CONTRAST: 100mL Omni 350 TECHNIQUE: After the administration of intravenous contrast, 5 mm thick sections acquired from the diaphragms to the symphysis. 5 mm thick coronal and sagittal reformats were acquired. For radiation dose reducti on, the following was used: automated exposure control, adjustment of mA and/or kV according to rocio ent size. COMPARISON: None. FINDINGS: Image quality: There is streak artifact limiting evaluation including extensive metallic streak artif act from patient's left hip prosthesis. Lung bases: Unremarkable. Heart: Heart is normal in size. There is a small hiatal hernia and mild fluid distention of the visu alized distal esophagus. ABDOMEN: Liver: No mass lesion. Gallbladder:There is a calcified gallstone in the fundus of a nondistended gallbladder. No definite gallbladder wall thickening or pericholecystic fluid. Biliary ducts: No biliary ductal dilatation. Pancreas: Unremarkable. Spleen: Normal in size. Adrenal Glands: No adrenal nodules. Kidneys and Ureters: No hydronephrosis. Stomach and Bowel: Stomach and small bowel loops are normal in caliber and wall thickness. No perice gracia inflammatory changes to suggest appendicitis. The colon is nondistended with suggestion of mild w all thickening throughout which may represent a colitis. Colonic diverticulosis is present without ac abhijeet diverticulitis. Peritoneum: No abnormal intraperitoneal fluid. No free air. Ventral Wall: No hernia. Abdominal Nodes: No retroperitoneal or mesenteric adenopathy by size criteria. Vessels: Aorta and inferior vena cava are normal in size. PELVIS: Pelvic Organs: Unremarkable. Bladder: Unremarkable. Pelvic Nodes: No enlarged lymph nodes. Miscellaneous: No inguinal hernias. Bones: There is fusion of the L5-S1 disc space with anterolisthesis measuring approximately 0.8 cm. V isualized osseous structures demonstrate no suspicious lesions. IMPRESSION: 1. Nondistention of the colon with mild wall thickening which may represent a mild colitis versus art ifact from nondistention. 2. Colonic diverticulosis without acute diverticulitis. 3. Cholelithiasis without CT evidence of cholecystitis. 4. Small hiatal hernia with mild fluid distention of the visualized distal esophagus. Reviewed by: Andres Pena MD on 11/12/2022 10:01 PM PDT Approved by: Andres Pena MD on 11/12/2022 10:01 PM PDT Station ID: [id number]
[2022-11-12] MEDS ORDERED: ONDANSETRON 4 MG/2 ML VIAL IVP PRN (23:59)
[2022-11-13] MEDS: SODIUM CHLORIDE 0.9% 1,000 ML IV SCH ×2 (00:45→10:02)
[2022-11-13] MEDS: SODIUM CHLORIDE FLUSH 0.9% 10 ML SYRINGE IVP SCH ×3 (00:45→16:53)
[2022-11-13] MEDS: SODIUM CHLORIDE FLUSH 0.9% 10 ML SYRINGE IVP PRN ×2 (04:36→20:41)
[2022-11-13 04:48] LABS: BASOPHILS % (AUTO) 0.4 %; EOSINOPHILS % (AUTO) 0.2 %; LYMPHOCYTES % (AUTO) 23.3 %; MEAN CORPUSCULAR VOLUME 90.8 fL (81.0-99.0); MEAN PLATELET VOLUME 9.3 fL (7.9-10.8); MONOCYTES % (AUTO) 6.1 %; NEUTROPHILS % (AUTO) 68.5 %; PLT - PLATELET COUNT 521 10^3/uL (130-450); RED BLOOD COUNT 2.17 10^6/uL (4.20-5.40); RED CELL DISTRIBUTION WIDTH 16.6 % (12.0-15.0); WHITE BLOOD COUNT 18.4 x10^3/uL (4.8-10.8)
[2022-11-13 04:53] LABS: HCT - HEMATOCRIT 19.7 % (37.0-47.0); HGB - HEMOGLOBIN 6.3 g/dL (12.0-16.0)
[2022-11-13 04:54] LABS: ABNORMAL LYMPHS % (MANUAL) 0 %; BAND NEUTROPHILS % (MANUAL) 0 %
[2022-11-13 04:56] LABS: ALBUMIN 1.8 g/dL (3.2-5.5); ALBUMIN/GLOBULIN RATIO 0.7 (1.0-2.2); BILIRUBIN,TOTAL 0.5 mg/dL (0.2-1.0); CALCIUM 7.5 mg/dL (8.5-10.3); CREATININE 0.9 mg/dL (0.4-1.0); MAGNESIUM 1.5 mg/dL (1.7-2.8); PHOSPHORUS 2.3 mg/dL (2.5-4.6); POTASSIUM 3.5 mmol/L (3.5-5.0); TOTAL PROTEIN 4.5 g/dL (6.7-8.2)
[2022-11-13 05:08] LABS: LYMPHOCYTES # (MANUAL) 3.5 10^3/uL (1.5-3.5); LYMPHOCYTES % (MANUAL) 19 %; MONOCYTES # (MANUAL) 0.6 10^3/uL (0.0-1.0); NEUTROPHILS # (MANUAL) 14.4 10^3/uL (1.5-6.6); PLATELET ESTIMATE, MANUAL INCREASED (>450,000) (NORMAL); PLATELET MORPHOLOGY NORMAL APPEARANCE (NORMAL); WBC MORPHOLOGY (MULTIPLE) NORMAL APPEARANCE (NORMAL)
[2022-11-13 05:09] LABS: DIFFERENTIAL COMMENT MANUAL DIFFERENTIAL
--- NOTE | 2022-11-13 06:06 | PROVIDER PROGRESS NOTE ---
Finger Buffs Assembler Note - Finger Buffs Assembler Note Finger Buffs Assembler Note: RN paged to report patient had an episode of hematemesis this morning. hgb<7 now. patient here for UGIB, possibly related to NSAID. plan is for EGD in am. will transfuse prbc x1 and start protonix gtt. patient had protonix iv inject last night request RN to get in touch with general surgery and day team and let them know about the hematemesis and that the patient will likely need sooner rather than later EGD. Anders Green DO Internal Medicine [employer]er
[2022-11-13] MEDS: PANTOPRAZOLE 80 MG in SODIUM CHLORIDE 0.9% 100ML 100 ML IV SCH ×2 (06:49→16:35)
[2022-11-13] MEDS: ZINC OXIDE 20% OINT 30 GM TUBE TOP PRN ×4 (06:57→20:41)
[2022-11-13] MEDS ORDERED: PANTOPRAZOLE 80 MG in SODIUM CHLORIDE 0.9% 100ML 100 ML IV SCH (07:00)
[2022-11-13] MEDS ORDERED: LIDOCAINE-PF 2% 10 ML AMP SUBQ ONE (07:47)
[2022-11-13] MEDS ORDERED: PROPOFOL 500 MG/50 ML 500 MG/50 ML VIAL ONE (07:47)
--- NOTE | 2022-11-13 07:50 | CONSULTATION NOTE ---
Referring Provider Name of Referring Provider:: Medicine Team Consult Date: 11/13/22 Chief Complaint - Chief Complaint Chief Complaint: GI bleed History of Present Illness - Admitted From Admitted From:: ED - History Obtained From Records Reviewed: yes History obtained from: ED provider, patient's family,patient Exam Limitations: patient uncomfortable/anxious - History of Present Illness HPI Comment/Other: This is a very pleasant 72-year-old female who has had 4 hip surgeries recently, the most recent of which was 5 days ago. She has a periprosthetic infection that is being treated with IV cefepime and had bleeding into her muscles around her hip. She required some transfusion prior to discharge and was getting comfortable in rehab when she began having hematemesis yesterday. She has also had a couple of dark melanotic stools. The patient has never had ulcers in the past but does have a history of GERD. She is typically on medication for this, but with her recent repeated hospitalizations is unsure if she is taking it every day or not. She denies any epigastric abdominal pain. She is uncertain if she has been taking any NSAID medications. She is on aspirin but no other blood thinners. History - Past Medical History Cardiovascular: reports: High cholesterol Respiratory: reports: None Neuro: reports: None Endocrine/Autoimmune: reports: None GI: reports: GERD : reports: Incontinence HEENT: reports: Chronic vision loss, Chronic hearing loss Psych: reports: Depression Musculoskeletal: reports: Osteoarthritis, Osteoporosis Derm: reports: None MRSA Hx?: No - Past Surgical History Ortho: reports: Hip replacement (L), Knee replacement, Other (L hip x4, most recent on 11/08) HEENT: reports: Tonsil/Adenoidectomy - Substance History Use: Uses substance without health or social issues: NONE - POLST Patient has POLST: Yes Meds/Allgy - Home Medications Home Medications: Ambulatory Orders Medication Instructions Recorded Confirmed Escitalopram Oxalate [Lexapro] 20 mg PO DAILY 05/03/14 10/27/22 Atorvastatin [Lipitor] 20 mg PO HS 09/08/21 10/27/22 Acetaminophen [Tylenol] 650 mg PO Q6H PRN 10/26/22 10/27/22 Amox/Clav 875/125 [Augmentin] 1 each PO Q12H #20 tablet 10/26/22 10/27/22 Aspirin [[place] Aspirin] 81 mg PO DAILY 10/26/22 10/27/22 Cetirizine HCl [Allergy] 10 mg PO DAILY 10/26/22 10/27/22 Cyclobenzaprine [Flexeril] 10 mg PO Q8HR PRN 10/26/22 10/27/22 Oxycodone HCl 10 mg PO Q3HR PRN 10/26/22 10/27/22 Solifenacin Succinate 10 mg PO DAILY 10/26/22 10/27/22 hydrOXYzine PAMOATE [Vistaril] 25 mg PO DAILY 10/26/22 10/27/22 Docusate Sodium [Dulcolax Stool 100 mg PO BID 10/27/22 10/27/22 Softener] polyethylene glycoL 3350 [Miralax] 17 gm PO DAILY PRN 10/27/22 10/27/22 - Allergies Allergies/Adverse Reactions: Allergies Allergy/AdvReac Type Severity Reaction Status Date / Time No Known Drug Allergies Allergy Verified 11/12/22 17:09 Review of Systems - Constitutional Constitutional: reports: Other (A complete 10 point review of symptoms is otherwise negative except for that noted in HPI and PMH.) Exam - Vital Signs Vital Signs: Vital Signs x48h Temp Pulse Resp BP Pulse Ox 11/13/22 07:00 115 H 21 113/62 100 11/13/22 06:40 36.4 C L 115 H 24 97/68 100 11/13/22 06:24 36.4 C L 116 H 25 H 102/67 100 11/13/22 06:00 115 H 28 H 98/59 L 100 11/13/22 05:00 116 H 23 113/70 100 11/13/22 04:00 37.1 C 116 H 13 120/76 100 11/13/22 02:00 103 H 21 110/71 100 11/13/22 01:00 101 H 20 116/66 100 11/13/22 00:55 37.2 C 103 H 20 117/77 100 11/13/22 00:40 37.2 C 103 H 30 H 117/77 100 11/13/22 00:00 104 H 20 103/57 L 100 - Physical Exam Comments/Other: GEN: The patient is moderately anxious and appears ashen, appears older than stated age, alert and oriented HEENT: NCAT, dry mucous membranes with blood staining in mouth, EOMI NEURO: CN II-XII grossly intact, no obvious focal deficits CV: Tachycardic PULM: Nonlabored respirations ABD: soft, non tender (specifically no tenderness in the epigastrium), no rebound or guarding SKIN: no lesions appreciated LYMPH: no obvious lymphadenopathy MSK: Tenderness over left hip secondary to recent surgeries. PSYCH: Affect is appropriate Conclusion and Plan - Lab Results Laboratory Results 11/13/22 04:34: Sodium 136, Potassium 3.5, Chloride 103, Carbon Dioxide 22, Anion Gap 11.0, BUN 50 H, Creatinine 0.9, Estimated GFR (MDRD) 62 L, Glucose 167 H, Calcium 7.5 L, Phosphorus 2.3 L, Magnesium 1.5 L, Total Bilirubin 0.5, AST 19, ALT 10, Alkaline Phosphatase 59, Total Protein 4.5 L, Albumin 1.8 L, Globulin 2.7, Albumin/Globulin Ratio 0.7 L 11/13/22 04:34: WBC 18.4 H, RBC 2.17 L, Hgb 6.3 L*, Hct 19.7 L*, MCV 90.8, MCH 29.0, MCHC 32.0, RDW 16.6 H, Plt Count 521 H, MPV 9.3, Neut # (Auto) Not Reportable, Lymph # (Auto) Not Reportable, Tucker # (Auto) Not Reportable, Eos # (Auto) Not Reportable, Baso # (Auto) Not Reportable, Absolute Nucleated RBC Not Reportable, Total Counted 100, Band Neuts % (Manual) 0, Abnorm Lymph % (Manual) 0, Nucleated RBC % Not Reportable, Neutrophils # (Manual) 14.4 H, Lymphocytes # (Manual) 3.5, Monocytes # (Manual) 0.6, Eosinophils # (Manual) 0.0, Basophils # (Manual) 0.0, Differential Comment MANUAL DIFFERENTIAL, WBC Morphology NORMAL APPEARANCE, Platelet Estimate INCREASED (>450,000), Platelet Morphology NORMAL APPEARANCE, RBC Morph Micro Appear 1+ HYPOCHROMASIA 11/12/22 23:15: Nasal Screen MRSA (PCR) NEGATIVE 11/12/22 21:05: PT 15.5 H, INR 1.4 H, APTT 30.2 11/12/22 18:58: Blood Type Recheck O POSITIVE 11/12/22 18:48: Gastric Fluid pH TNP, Gastric Occult Blood POSITIVE A 11/12/22 17:46: Nasal Adenovirus (PCR) NOT DETECTED, Nasal B. parapertussis DNA (PCR) NOT DETECTED, Nasal Coronavir 229E PCR NOT DETECTED, Nasal Coronavir HKU1 PCR NOT DETECTED, Nasal Coronavir NL63 PCR NOT DETECTED, Nasal Coronavir OC43 PCR NOT DETECTED, Nasal Enterovir/Rhinovir PCR NOT DETECTED, Nasal Influenza B PCR NOT DETECTED, Nasal Influenza A PCR NOT DETECTED, Nasal Parainfluen 1 PCR NOT DETECTED, Nasal Parainfluen 2 PCR NOT DETECTED, Nasal Parainfluen 3 PCR NOT DETECTED, Nasal Parainfluen 4 PCR NOT DETECTED, Nasal RSV (PCR) NOT DETECTED, Nasal B.pertussis DNA PCR NOT DETECTED, Nasal C.pneumoniae (PCR) NOT DETECTED, Stanton Human Metapneumo PCR NOT DETECTED, Nasal M.pneumoniae (PCR) NOT DETECTED, Nasal SARS-CoV-2 (PCR) NOT DETECTED 11/12/22 17:24: Blood Type O POSITIVE, Antibody Screen NEGATIVE, Crossmatch IS Only See Detail 11/12/22 17:22: Sodium 137, Potassium 3.5, Chloride 101, Carbon Dioxide 27, Anion Gap 9.0, BUN 43 H, Creatinine 0.9, Estimated GFR (MDRD) 62 L, Glucose 125 H, Calcium 8.0 L, Total Bilirubin 0.4, AST 20, ALT 12, Alkaline Phosphatase 74, Total Protein 5.3 L, Albumin 2.0 L, Globulin 3.3, Albumin/Globulin Ratio 0.6 L, Lipase 21 L 11/12/22 17:22: WBC 15.6 H, RBC 2.45 L, Hgb 7.0 L*, Hct 22.7 L, MCV 92.7, MCH 28.6, MCHC 30.8 L, RDW 16.9 H, Plt Count 639 H, MPV 9.3, Neut # (Auto) 10.5 H, Lymph # (Auto) 3.5, Tucker # (Auto) 0.9, Eos # (Auto) 0.4, Baso # (Auto) 0.1, Absolute Nucleated RBC 0.03, Nucleated RBC % 0.2 - Diagnostic Imaging Results Diagnostic Imaging Results: positive: Final report reviewed, Read independently Diagnostic Imaging Results Comments: No perigastric inflammation on CT. Mild colonic wall thickening, most notable on R side. +gallstones, without signs of cholecystitis. No free air. - Consultation Note Consultation Note: 72 y/o F with: 1. acute GI bleed - with hemetemsis, suspect upper GI source - Plan for emergent EGD this AM. I discussed the r/b/a of EGD including bleeding, rebleeding, and perforation with the patient and her family at bedside. They voiced understanding, their questions were answered, and they wished to proceed with upper endoscopy. Consent obtained Anesthesia team feels general anesthetic is safest, so will proceed in OR. - Continue IV PPI, carafate - NPO until hgb stable - recommend avoiding blood thinning medications 2. ABLA - transfusing second unit at time of my visit - patient likely needs at least one more unit pRBC's given ongoing blood loss - recommend trending hgb with q6h hemoglobin - if patient requires at least 4 units, recommend 1:1:1 transfusion with plasma and platelets as well 2. 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 Patient was scheduled to meet with ID tomorrow - recommend continue current abx, consideration of ortho/ID consultation while hospitalized 3. hpl, depression, anxiety, osteoporosis - as per primary team Thank you for consulting me in the care of this patient! I will continue to follow closely.
[2022-11-13] MEDS ORDERED: ONDANSETRON 4 MG/2 ML VIAL ONE (07:54)
[2022-11-13] MEDS ORDERED: SUCCINYLCHOLINE 200 MG/10 ML VIAL ONE (07:54)
[2022-11-13] MEDS ORDERED: fentaNYL 100 MCG/2 ML VIAL ONE (08:10)
[2022-11-13] MEDS ORDERED: EPINEPHrine 1 MG/ML AMP ONE ×2 (08:16→08:46)
[2022-11-13] MEDS ORDERED: THROMBIN (RECOMBINANT) 5,000 UNIT VIAL TOP ONE (08:17)
[2022-11-13] MEDS ORDERED: MIDAZOLAM 2 MG/2 ML VIAL ONE (08:27)
[2022-11-13] MEDS ORDERED: EPINEPHrine 1 MG/ML AMP IJ ONE (08:40)
--- NOTE | 2022-11-13 08:47 | ANESTHESIA ---
Pre-Anesthesia VS, & Labs - Diagnosis GI bleed - Procedure EGD Vital Signs: Temp Pulse Resp BP Pulse Ox O2 Flow Rate 36.4 C L 116 H 24 81/53 L 100 11/13/22 06:40 11/13/22 08:00 11/13/22 08:00 11/13/22 08:00 11/13/22 08:00 Height: 5 ft 1 in Weight (kg): 88.5 kg Body Mass Index: 36.8 BMI Classification: Obese - NPO >8 hours, Other - Is Patient ?: No - Lab Results Current Lab Results: Laboratory Tests 11/13/22 04:34: Sodium 136, Potassium 3.5, Chloride 103, Carbon Dioxide 22, Anion Gap 11.0, BUN 50 H, Creatinine 0.9, Estimated GFR (MDRD) 62 L, Glucose 167 H, Calcium 7.5 L, Phosphorus 2.3 L, Magnesium 1.5 L, Total Bilirubin 0.5, AST 19, ALT 10, Alkaline Phosphatase 59, Total Protein 4.5 L, Albumin 1.8 L, Globulin 2.7, Albumin/Globulin Ratio 0.7 L 11/13/22 04:34: WBC 18.4 H, RBC 2.17 L, Hgb 6.3 L*, Hct 19.7 L*, MCV 90.8, MCH 29.0, MCHC 32.0, RDW 16.6 H, Plt Count 521 H, MPV 9.3, Neut # (Auto) Not Reportable, Lymph # (Auto) Not Reportable, Bee # (Auto) Not Reportable, Eos # (Auto) Not Reportable, Baso # (Auto) Not Reportable, Absolute Nucleated RBC Not Reportable, Total Counted 100, Band Neuts % (Manual) 0, Abnorm Lymph % (Manual) 0, Nucleated RBC % Not Reportable, Neutrophils # (Manual) 14.4 H, Lymphocytes # (Manual) 3.5, Monocytes # (Manual) 0.6, Eosinophils # (Manual) 0.0, Basophils # (Manual) 0.0, Differential Comment MANUAL DIFFERENTIAL, WBC Morphology NORMAL APPEARANCE, Platelet Estimate INCREASED (>450,000), Platelet Morphology NORMAL APPEARANCE, RBC Morph Micro Appear 1+ HYPOCHROMASIA 11/12/22 21:05: PT 15.5 H, INR 1.4 H, APTT 30.2 11/12/22 18:58: Blood Type Recheck O POSITIVE 11/12/22 17:24: Blood Type O POSITIVE, Antibody Screen NEGATIVE, Crossmatch IS Only See Detail 11/12/22 17:22: Sodium 137, Potassium 3.5, Chloride 101, Carbon Dioxide 27, Anion Gap 9.0, BUN 43 H, Creatinine 0.9, Estimated GFR (MDRD) 62 L, Glucose 125 H, Calcium 8.0 L, Total Bilirubin 0.4, AST 20, ALT 12, Alkaline Phosphatase 74, Total Protein 5.3 L, Albumin 2.0 L, Globulin 3.3, Albumin/Globulin Ratio 0.6 L, Lipase 21 L 11/12/22 17:22: WBC 15.6 H, RBC 2.45 L, Hgb 7.0 L*, Hct 22.7 L, MCV 92.7, MCH 28.6, MCHC 30.8 L, RDW 16.9 H, Plt Count 639 H, MPV 9.3, Neut # (Auto) 10.5 H, Lymph # (Auto) 3.5, Bee # (Auto) 0.9, Eos # (Auto) 0.4, Baso # (Auto) 0.1, Absolute Nucleated RBC 0.03, Nucleated RBC % 0.2 Fish Bones: 11/13/22 04:34 11/13/22 04:34 Home Medications and Allergies Active Medications Acetaminophen (Acetaminophen 325 Mg Tablet) 650 mg PO Q4HR PRN PRN Reason: Pain 1 to 4, or Fever Atorvastatin Calcium (Atorvastatin 10 Mg Tablet) 20 mg PO HS MINDI Escitalopram Oxalate (Escitalopram 10 Mg Tablet) 20 mg PO DAILY MINDI Sodium Chloride (Normal Saline 0.9%) 1,000 mls @ 100 mls/hr IV .Q10H MINDI Last Infusion: 11/13/22 06:54 Dose: 0 mls/hr Pantoprazole Sodium 80 mg/ (Sodium Chloride) 100 mls @ 10 mls/hr IV .Q10H MINDI Last Admin: 11/13/22 06:49 Dose: 10 mls/hr Cefepime HCl 2 gm/ Sodium (Chloride) 100 mls @ 200 mls/hr IV BID [facility] Multi-Ingredient Ointment (Zinc Oxide 20% Oint 30 Gm Tube) 1 applic TOP PRN PRN PRN Reason: Skin Care Last Admin: 11/13/22 06:57 Dose: 1 applic Ondansetron HCl (Ondansetron 4 Mg/2 Ml Vial) 4 mg IVP Q6HR PRN PRN Reason: Nausea / Vomiting Last Admin: 11/13/22 04:01 Dose: 4 mg Sodium Chloride (Sodium Chloride Flush 0.9% 10 Ml Syringe) 10 ml IVP 0100,0900,1700 MINDI Last Admin: 11/13/22 00:45 Dose: 10 ml Sodium Chloride (Sodium Chloride Flush 0.9% 10 Ml Syringe) 10 ml IVP PRN PRN PRN Reason: NEEDED PER PROVIDER ORDERS Last Admin: 11/13/22 04:36 Dose: 20 ml Escitalopram Oxalate [Lexapro] 20 mg PO DAILY 05/03/14 Atorvastatin [Lipitor] 20 mg PO HS 09/08/21 Acetaminophen [Tylenol] 650 mg PO Q6H PRN 10/26/22 Aspirin [[place] Aspirin] 81 mg PO DAILY 10/26/22 Cetirizine HCl [Allergy] 10 mg PO DAILY 10/26/22 Cyclobenzaprine [Flexeril] 10 mg PO Q8HR PRN 10/26/22 Oxycodone HCl 10 mg PO Q3HR PRN 10/26/22 Solifenacin Succinate 10 mg PO DAILY 10/26/22 hydrOXYzine PAMOATE [Vistaril] 25 mg PO DAILY 10/26/22 Docusate Sodium [Dulcolax Stool Softener] 100 mg PO BID 10/27/22 polyethylene glycoL 3350 [Miralax] 17 gm PO DAILY PRN 10/27/22 Allergies/Adverse Reactions: Allergies Allergy/AdvReac Type Severity Reaction Status Date / Time No Known Drug Allergies Allergy Verified 11/12/22 17:09 Anes History & Medical History - Anesthetic History Anesthesia Complications: reports: No previous complications Family history of Anesthesia Complications: Denies Family history of Malignant Hyperthermia: Denies - Medical History Cardiovascular: reports: High cholesterol Pulmonary: reports: None Gastrointestinal: reports: GERD Urinary: reports: Incontinence Neuro: reports: None Musculoskeletal: reports: Osteoarthritis, Osteoporosis Endocrine/Autoimmune: reports: None Blood Disorders: reports: None Skin: reports: None Smoking Status: Never smoker Psychosocial: reports: No issues indicated - Surgical History Eyes Ears Nose Throat (EENT): reports: Tonsil/Adenoidectomy Orthopedic: reports: Hip replacement (L), Knee replacement, Other (L hip x4, most recent on 11/08) Exam General: Alert, Oriented x3, Cooperative, Moderate distress Dental: WNL, Other (prominent incisors) Mouth Openin Fingerbreadth Neck Mobility: Normal Mallampati classification: I Respiratory: Lungs clear Cardiovascular: Regular rate Plan Anesthesia Type: General Consent for Procedure(s) Verified and Reviewed: Yes Code Status: Attempt Resuscitation ASA classification: 3-Severe systemic disease Is this case an emergency?: Yes
[2022-11-13] MEDS ORDERED: HYDROmorphone 0.5 MG/0.5 ML SYRINGE IVP PRN (08:48)
[2022-11-13] MEDS ORDERED: ATROPINE ABBOJECT 1 MG/10 ML SYRINGE IVP PRN (08:48)
[2022-11-13] MEDS ORDERED: MORPHINE 2 MG/ML CARPUJECT IVP PRN (08:48)
[2022-11-13] MEDS ORDERED: fentaNYL 100 MCG/2 ML VIAL IVP PRN (08:48)
[2022-11-13] MEDS ORDERED: ePHEDrine 50 MG/ML VIAL IVP PRN (08:48)
[2022-11-13] MEDS ORDERED: NALOXONE 0.4 MG/ML VIAL IVP PRN (08:48)
[2022-11-13] MEDS ORDERED: ONDANSETRON 4 MG/2 ML VIAL IVP PRN (08:48)
[2022-11-13] MEDS ORDERED: LACTATED RINGERS 1,000 ML IV SCH (09:00)
[2022-11-13] MEDS ORDERED: PANTOPRAZOLE 40 MG VIAL IVP SCH (09:00)
--- NOTE | 2022-11-13 09:58 | ANESTHESIA POST OP EVALUATION ---
Anesthesia Post Eval - Post Anesthesia Eval Vitals: Last Vital Signs Temp 36.4 C L 11/13/22 06:40 Pulse 111 H 11/13/22 08:15 Resp 23 11/13/22 08:15 BP 90/68 11/13/22 08:15 Pulse Ox 23 L 11/13/22 08:15 O2 Flow Rate CV Function Including HR & BP: Stable Pain Control: Satisfactory Nausea & Vomiting: Negative Mental Status: Baseline Respiratory Status: Airway Patent Hydration Status: Satisfactory Anesthesia Complications: None
[2022-11-13] MEDS: CEFEPIME 2 GM in SODIUM CHLORIDE 0.9% MINIBAG 100 ML IV SCH ×2 (10:04→21:41)
[2022-11-13 10:17] LABS: BASOPHILS % (AUTO) 0.2 %; HCT - HEMATOCRIT 21.8 % (37.0-47.0); HGB - HEMOGLOBIN 7.1 g/dL (12.0-16.0); LYMPHOCYTES % (AUTO) 7.9 %; MEAN CORPUSCULAR HEMOGLOBIN 29.3 pg (27.0-31.0); MEAN CORPUSCULAR HGB CONC 32.6 g/dL (32.0-36.0); MEAN CORPUSCULAR VOLUME 90.1 fL (81.0-99.0); MEAN PLATELET VOLUME 9.2 fL (7.9-10.8); MONOCYTES % (AUTO) 3.7 %; NEUTROPHILS % (AUTO) 85.6 %; PLT - PLATELET COUNT 457 10^3/uL (130-450); RED BLOOD COUNT 2.42 10^6/uL (4.20-5.40); RED CELL DISTRIBUTION WIDTH 16.8 % (12.0-15.0); WHITE BLOOD COUNT 22.9 x10^3/uL (4.8-10.8)
[2022-11-13 10:21] LABS: SLIDE REVIEW? Indicated
[2022-11-13 10:22] LABS: CALCIUM, IONIZED 1.03 mmol/L (1.15-1.33); VBG PH 7.458 (7.31-7.41)
[2022-11-13 10:37] LABS: ABNORMAL LYMPHS % (MANUAL) 0 %
[2022-11-13 10:39] LABS: BAND NEUTROPHILS % (MANUAL) 3 %; DIFFERENTIAL COMMENT MANUAL DIFFERENTIAL; LYMPHOCYTES # (MANUAL) 0.7 10^3/uL (1.5-3.5); LYMPHOCYTES % (MANUAL) 3 %; MONOCYTES # (MANUAL) 0.2 10^3/uL (0.0-1.0); MYELOCYTES % (MANUAL) 4 %; NEUTROPHILS # (MANUAL) 21.1 10^3/uL (1.5-6.6); RBC MORPHOLOGY (MULTIPLE) 3+ ANISOCYTOSIS (NORMAL)
[2022-11-13] MEDS ORDERED: POTASSIUM CHLOR 20 MEQ/100 ML 20 MEQ/100 ML BAG IV ONE ×3 (11:18→21:59)
[2022-11-13] MEDS: ESCITALOPRAM 10 MG TABLET PO SCH (11:31)
[2022-11-13] MEDS: CALCIUM CARBONATE CHEW 500 MG TABLET PO SCH ×2 (11:58→15:50)
[2022-11-13] MEDS: SUCRALFATE 1 GM/10 ML UDC PO SCH ×3 (12:00→21:41)
[2022-11-13] MEDS ORDERED: MAGNESIUM OXIDE 400 MG TABLET PO ONE ×2 (12:18→14:54)
--- NOTE | 2022-11-13 14:21 | PHARMACY PROGRESS NOTE ---
- Best Possible Medication History Admit Date and Time: 11/12/222138 Processed by: Pharmacy Medication History completed: Yes Patient Interview: Completed Secondary Source(s): Other family member (daughter was knowledgable), Pharmacy records As the person ultimately responsible for medication therapy, providers are able to order a medication from an existing home medication list in [facility] via the "Reconcile Routine" prior to Confirmation of that medication by ground support equipment mechanic. Such practice is discouraged except when the physician, in their clinical judgment, deems that a medical need exists for a medication without regard to previous use.
[2022-11-13 14:31] LABS: BASOPHILS % (AUTO) 0.3 %; LYMPHOCYTES % (AUTO) 13.1 %; MEAN CORPUSCULAR HEMOGLOBIN 29.8 pg (27.0-31.0); MEAN CORPUSCULAR HGB CONC 33.5 g/dL (32.0-36.0); MEAN PLATELET VOLUME 9.4 fL (7.9-10.8); MONOCYTES % (AUTO) 5.1 %; NEUTROPHILS % (AUTO) 79.9 %; PLT - PLATELET COUNT 401 10^3/uL (130-450); RED BLOOD COUNT 2.18 10^6/uL (4.20-5.40); WHITE BLOOD COUNT 21.7 x10^3/uL (4.8-10.8)
[2022-11-13 14:34] LABS: HCT - HEMATOCRIT 19.4 % (37.0-47.0); HGB - HEMOGLOBIN 6.5 g/dL (12.0-16.0); SLIDE REVIEW? Indicated
[2022-11-13 14:43] LABS: MAGNESIUM 1.5 mg/dL (1.7-2.8); POTASSIUM 3.8 mmol/L (3.5-5.0)
[2022-11-13 14:50] LABS: ABNORMAL LYMPHS % (MANUAL) 0 %
[2022-11-13 14:52] LABS: BAND NEUTROPHILS % (MANUAL) 2 %; LYMPHOCYTES # (MANUAL) 1.7 10^3/uL (1.5-3.5); LYMPHOCYTES % (MANUAL) 6 %; MONOCYTES # (MANUAL) 0.7 10^3/uL (0.0-1.0); MYELOCYTES % (MANUAL) 1 %; NEUTROPHILS # (MANUAL) 19.1 10^3/uL (1.5-6.6); NUCLEATED RBC (MANUAL) 1 %; REACTIVE LYMPHS % (MANUAL) 2 %
[2022-11-13 14:53] LABS: DIFFERENTIAL COMMENT MANUAL DIFFERENTIAL
[2022-11-13] MEDS ORDERED: MAGNESIUM SULFATE 2 GRAM 2 GM/50 ML BAG IV ONE ×2 (16:22→21:59)
--- NOTE | 2022-11-13 16:41 | PROVIDER PROGRESS NOTE ---
Assessment/Plan - Problem List (1) UGIB (upper gastrointestinal bleed) Assessment/Plan: Conclusion/Plan: NPO except sips and ice chips Possible NSAID induced gastritis and ulcer IV protonbix bid Surgery consulted by ER Plan fopr EGD in am Transfuse if Hb < 7 Verbal consent obtained for blood transfusion Per general surgery post EGD this a.m.: Non bleeding jesus's ulcers identified on EGD. Epi injected, biopsies taken. Plan to continue to monitor Hgb, treat with PPI and carafate prn epigastric pain . If patient rebleeds, I would plan to repeat EGD. (3) Depression Conclusion/Plan: Continue Lexapro in good spirits no SI or Hi (5) History of hip surgery Conclusion/Plan: Tylenol or moprhine prn pain Hold NSAIDS PT to work with patient - Current Meds Current Meds: Current Medications Generic Name Dose Route Start Last Admin Trade Name Freq PRN Reason Stop Dose Admin Escitalopram Oxalate 20 mg 11/13/22 09:00 11/13/22 11:31 Escitalopram 10 Mg Tablet PO 20 mg DAILY MINDI Administration Sodium Chloride 1,000 mls @ 100 mls/hr 11/12/22 22:00 11/13/22 10:02 Normal Saline 0.9% IV Not Given .Q10H MINDI Pantoprazole Sodium 80 mg/ 100 mls @ 10 mls/hr 11/13/22 06:03 11/13/22 16:35 Sodium Chloride IV 10 mls/hr .Q10H MINDI Administration Cefepime HCl 2 gm/ Sodium 100 mls @ 200 mls/hr 11/13/22 09:00 11/13/22 10:35 Chloride IV Infused BID MINDI Infusion Lactated Ringer's 1,000 mls @ 100 mls/hr 11/13/22 09:00 11/13/22 10:01 Lr IV 11/13/22 18:59 100 mls/hr .Q10H MNIDI Administration Multi-Ingredient Ointment 1 applic 11/13/22 04:50 11/13/22 09:45 Zinc Oxide 20% Oint 30 Gm Tube TOP 1 applic PRN PRN Administration Skin Care Ondansetron HCl 4 mg 11/12/22 23:59 11/13/22 04:01 Ondansetron 4 Mg/2 Ml Vial IVP 4 mg Q6HR PRN Administration Nausea / Vomiting Sodium Chloride 10 ml 11/13/22 01:00 11/13/22 10:03 Sodium Chloride Flush 0.9% 10 Ml Syringe IVP 10 ml 0100,0900,1700 MINDI Administration Sodium Chloride 10 ml 11/12/22 21:38 11/13/22 04:36 Sodium Chloride Flush 0.9% 10 Ml Syringe IVP 20 ml PRN PRN Administration NEEDED PER PROVIDER ORDERS Sucralfate 1 gm 11/13/22 11:00 11/13/22 16:16 Sucralfate 1 Gm/10 Ml Udc PO 1 gm 0700,1100,1600,2200 MINDI Administration - Lab Result Fish Bone Diagrams: 11/13/22 14:24 11/13/22 14:24 - Additional Planning My Orders: My Active Orders 11/13/22 TYPE AND SCREEN Stat 11/13/22 09:00 Cefepime 2 gm Sodium Chloride 0.9% Minibag [Normal Saline 0.9% Minibag] 100 ml IV BID 11/13/22 11:00 Sucralfate [Carafate] 1 gm PO 0700,1100,1600,2200 11/13/22 Lunch Clear Liquid Diet [DIET] 11/13/22 20:30 CBC - COMP BLD CT W/AUTO DIFF [HEME] Q6H 11/14/22 02:30 CBC - COMP BLD CT W/AUTO DIFF [HEME] Q6H 11/14/22 05:00 COMPREHENSIVE METABOLIC PANEL [CHEM] DAILYLAB 11/14/22 08:30 CBC - COMP BLD CT W/AUTO DIFF [HEME] Q6H 11/15/22 05:00 COMPREHENSIVE METABOLIC PANEL [CHEM] DAILYLAB 11/16/22 05:00 COMPREHENSIVE METABOLIC PANEL [CHEM] DAILYLAB 11/17/22 05:00 COMPREHENSIVE METABOLIC PANEL [CHEM] DAILYLAB 11/18/22 05:00 COMPREHENSIVE METABOLIC PANEL [CHEM] DAILYLAB 11/19/22 05:00 COMPREHENSIVE METABOLIC PANEL [CHEM] DAILYLAB 11/20/22 05:00 COMPREHENSIVE METABOLIC PANEL [CHEM] DAILYLAB Subjective - Subjective Patient Reports: Other (Patient this a.m. when I saw her was having coffee- ground emesis. She had some nausea but denied any abdominal pain. Patient was taken to the OR by general surgery see their note for details.) Objective Vital Signs: Vital Signs - 24 hr 11/12/22 11/12/22 11/12/22 17:02 17:24 19:08 Temperature 36.0 C L Heart Rate 112 H 109 H Heart Rate [ Monitoring electrodes] Respiratory 20 18 Rate Blood Pressure 103/71 98/65 Blood Pressure [Left Brachial artery] O2 Saturation 98 98 99 If not protocol : Oxygen Flow, liters/minute 11/12/22 11/12/22 11/12/22 21:52 22:04 22:13 Temperature 37.1 C 36.6 C Heart Rate 105 H Heart Rate [ 108 H 107 H Monitoring electrodes] Respiratory 20 21 15 Rate Blood Pressure 112/55 L Blood Pressure 112/55 L [Left Brachial artery] O2 Saturation 100 99 99 If not protocol : Oxygen Flow, liters/minute 11/12/22 11/13/22 11/13/22 23:13 00:00 00:40 Temperature 36.8 C 37.2 C Heart Rate Heart Rate [ 118 H 104 H 103 H Monitoring electrodes] Respiratory 14 20 30 H Rate Blood Pressure Blood Pressure 102/68 103/57 L 117/77 [Left Brachial artery] O2 Saturation 100 100 100 If not protocol : Oxygen Flow, liters/minute 11/13/22 11/13/22 11/13/22 00:55 01:00 02:00 Temperature 37.2 C Heart Rate Heart Rate [ 103 H 101 H 103 H Monitoring electrodes] Respiratory 20 20 21 Rate Blood Pressure Blood Pressure 117/77 116/66 110/71 [Left Brachial artery] O2 Saturation 100 100 100 If not protocol : Oxygen Flow, liters/minute 11/13/22 11/13/22 11/13/22 04:00 05:00 06:00 Temperature 37.1 C Heart Rate Heart Rate [ 116 H 116 H 115 H Monitoring electrodes] Respiratory 13 23 28 H Rate Blood Pressure Blood Pressure 120/76 113/70 98/59 L [Left Brachial artery] O2 Saturation 100 100 100 If not protocol : Oxygen Flow, liters/minute 11/13/22 11/13/22 11/13/22 06:24 06:40 07:00 Temperature 36.4 C L 36.4 C L Heart Rate Heart Rate [ 116 H 115 H 115 H Monitoring electrodes] Respiratory 25 H 24 21 Rate Blood Pressure Blood Pressure 102/67 97/68 113/62 [Left Brachial artery] O2 Saturation 100 100 100 If not protocol : Oxygen Flow, liters/minute 11/13/22 11/13/22 11/13/22 08:00 08:15 09:15 Temperature 37.4 C Heart Rate Heart Rate [ 116 H 111 H 112 H Monitoring electrodes] Respiratory 24 23 22 Rate Blood Pressure Blood Pressure 81/53 L 90/68 122/32 L [Left Brachial artery] O2 Saturation 100 23 L If not protocol 2 : Oxygen Flow, liters/minute 11/13/22 11/13/22 11/13/22 09:20 09:30 09:45 Temperature 37.4 C Heart Rate Heart Rate [ 129 H 124 H 112 H Monitoring electrodes] Respiratory 23 18 21 Rate Blood Pressure Blood Pressure 121/66 122/70 122/32 L [Left Brachial artery] O2 Saturation 100 100 100 If not protocol 2 : Oxygen Flow, liters/minute 11/13/22 11/13/22 11/13/22 10:00 10:30 10:31 Temperature 37.4 C Heart Rate Heart Rate [ 110 H 108 H 108 H Monitoring electrodes] Respiratory 22 21 19 Rate Blood Pressure Blood Pressure 117/63 119/57 L 123/55 L [Left Brachial artery] O2 Saturation 100 100 100 If not protocol 2 2 2 : Oxygen Flow, liters/minute 11/13/22 11/13/22 11/13/22 11:00 12:00 13:00 Temperature Heart Rate Heart Rate [ 103 H 103 H 101 H Monitoring electrodes] Respiratory 19 16 20 Rate Blood Pressure Blood Pressure 96/69 134/47 H 143/75 H [Left Brachial artery] O2 Saturation 100 100 100 If not protocol 2 2 2 : Oxygen Flow, liters/minute 11/13/22 11/13/22 11/13/22 14:00 15:00 16:08 Temperature 37.4 C 37.4 C Heart Rate Heart Rate [ 98 100 99 Monitoring electrodes] Respiratory 20 20 14 Rate Blood Pressure Blood Pressure 160/87 H 140/85 H 138/71 H [Left Brachial artery] O2 Saturation 96 100 100 If not protocol : Oxygen Flow, liters/minute 11/13/22 16:30 Temperature 37.3 C Heart Rate Heart Rate [ 98 Monitoring electrodes] Respiratory 17 Rate Blood Pressure Blood Pressure 138/67 H [Left Brachial artery] O2 Saturation 100 If not protocol : Oxygen Flow, liters/minute Oxygen O2 Source [With Activity] Room air O2 Source [Without Activity] Room air O2 Source Room air I&O (Last 24 Hrs): Intake and Output Totals x24h 11/11/22 11/12/22 11/13/22 23:59 23:59 23:59 Intake Total 1051 2612.667 Output Total 0 100 Balance 1051 2512.667 General: Alert, Oriented x3 HEENT: Atraumatic Neck: Supple Neuro: Alert Cardiovascular: Regular rate, Normal S1, Normal S2 Respiratory: No respiratory distress, Breath sounds nml Abdomen: Normal bowel sounds, Soft Extremities: No tenderness/swelling Skin: No rashes - Results Results: Laboratory Results WBC 21.7 x10^3/uL (4.8-10.8) H 11/13/22 14:24 RBC 2.18 10^6/uL (4.20-5.40) L 11/13/22 14:24 Hgb 6.5 g/dL (12.0-16.0) L* 11/13/22 14:24 Hct 19.4 % (37.0-47.0) L* 11/13/22 14:24 MCV 89.0 fL (81.0-99.0) 11/13/22 14:24 MCH 29.8 pg (27.0-31.0) 11/13/22 14:24 MCHC 33.5 g/dL (32.0-36.0) 11/13/22 14:24 RDW 17.0 % (12.0-15.0) H 11/13/22 14:24 Plt Count 401 10^3/uL (130-450) 11/13/22 14:24 MPV 9.4 fL (7.9-10.8) 11/13/22 14:24 Neut # (Auto) REAL ESTATE ASSET MANAGER 11/13/22 14:24 Lymph # (Auto) REAL ESTATE ASSET MANAGER 11/13/22 14:24 [place] # (Auto) REAL ESTATE ASSET MANAGER 11/13/22 14:24 Eos # (Auto) REAL ESTATE ASSET MANAGER 11/13/22 14:24 Baso # (Auto) REAL ESTATE ASSET MANAGER 11/13/22 14:24 Absolute Nucleated RBC REAL ESTATE ASSET MANAGER 11/13/22 14:24 Total Counted 100 11/13/22 14:24 Band Neuts % (Manual) 2 % (0-10) 11/13/22 14:24 Reactive Lymphs % (Man) 2 % 11/13/22 14:24 Abnorm Lymph % (Manual) 0 % 11/13/22 14:24 Myelocytes % 1 % (-0) H 11/13/22 14:24 Nucleated RBC % REAL ESTATE ASSET MANAGER 11/13/22 14:24 Neutrophils # (Manual) 19.1 10^3/uL (1.5-6.6) H 11/13/22 14:24 Lymphocytes # (Manual) 1.7 10^3/uL (1.5-3.5) 11/13/22 14:24 Monocytes # (Manual) 0.7 10^3/uL (0.0-1.0) 11/13/22 14:24 Eosinophils # (Manual) 0.0 10^3/uL (0-0.7) 11/13/22 14:24 Basophils # (Manual) 0.0 10^3/uL (0-0.1) 11/13/22 14:24 Nucleated RBCs 1 % 11/13/22 14:24 Differential Comment MANUAL DIFFERENTIAL 11/13/22 14:24 Manual Slide Review Indicated 11/13/22 14:24 WBC Morphology NORMAL APPEARANCE (NORMAL) 11/13/22 04:34 Platelet Estimate INCREASED (>450,000) (NORMAL) 11/13/22 04:34 Platelet Morphology NORMAL APPEARANCE (NORMAL) 11/13/22 04:34 RBC Morph Micro Appear 3+ ANISOCYTOSIS (NORMAL) 3+ HYPOCHROMASIA (NORMAL) 11/13/22 14:24 RBC Morph Micro Appear 3+ ANISOCYTOSIS (NORMAL) 3+ HYPOCHROMASIA (NORMAL) 11/13/22 14:24 PT 15.5 secs (9.9-12.6) H 11/12/22 21:05 INR 1.4 (0.8-1.2) H 11/12/22 21:05 APTT 30.2 secs (24.9-33.3) 11/12/22 21:05 VBG pH 7.458 (7.31-7.41) H 11/13/22 10:12 Ionized Calcium 1.03 mmol/L (1.15-1.33) L 11/13/22 10:12 Sodium 136 mmol/L (135-145) 11/13/22 04:34 Potassium 3.8 mmol/L (3.5-5.0) 11/13/22 14:24 Chloride 103 mmol/L (101-111) 11/13/22 04:34 Carbon Dioxide 22 mmol/L (21-32) 11/13/22 04:34 Anion Gap 11.0 (6-13) 11/13/22 04:34 BUN 50 mg/dL (6-20) H 11/13/22 04:34 Creatinine 0.9 mg/dL (0.4-1.0) 11/13/22 04:34 Estimated GFR (MDRD) 62 (>89) L 11/13/22 04:34 Glucose 167 mg/dL (70-100) H 11/13/22 04:34 Calcium 7.5 mg/dL (8.5-10.3) L 11/13/22 04:34 Phosphorus 2.3 mg/dL (2.5-4.6) L 11/13/22 04:34 Magnesium 1.5 mg/dL (1.7-2.8) L 11/13/22 14:24 Total Bilirubin 0.5 mg/dL (0.2-1.0) 11/13/22 04:34 AST 19 IU/L (10-42) 11/13/22 04:34 ALT 10 IU/L (10-60) 11/13/22 04:34 Alkaline Phosphatase 59 IU/L (42-121) 11/13/22 04:34 Total Protein 4.5 g/dL (6.7-8.2) L 11/13/22 04:34 Albumin 1.8 g/dL (3.2-5.5) L 11/13/22 04:34 Globulin 2.7 g/dL (2.1-4.2) 11/13/22 04:34 Albumin/Globulin Ratio 0.7 (1.0-2.2) L 11/13/22 04:34 Lipase 21 U/L (22-51) L 11/12/22 17:22 Nasal Adenovirus (PCR) NOT DETECTED 11/12/22 17:46 Nasal B. parapertussis DNA (PCR) NOT DETECTED 11/12/22 17:46 Nasal Coronavir 229E PCR NOT DETECTED 11/12/22 17:46 Nasal Coronavir HKU1 PCR NOT DETECTED 11/12/22 17:46 Nasal Coronavir NL63 PCR NOT DETECTED 11/12/22 17:46 Nasal Coronavir OC43 PCR NOT DETECTED 11/12/22 17:46 Nasal Enterovir/Rhinovir PCR NOT DETECTED 11/12/22 17:46 Nasal Influenza B PCR NOT DETECTED 11/12/22 17:46 Nasal Influenza A PCR NOT DETECTED 11/12/22 17:46 Nasal Parainfluen 1 PCR NOT DETECTED 11/12/22 17:46 Nasal Parainfluen 2 PCR NOT DETECTED 11/12/22 17:46 Nasal Parainfluen 3 PCR NOT DETECTED 11/12/22 17:46 Nasal Parainfluen 4 PCR NOT DETECTED 11/12/22 17:46 Nasal RSV (PCR) NOT DETECTED 11/12/22 17:46 Nasal Screen MRSA (PCR) NEGATIVE (NEGATIVE) 11/12/22 23:15 Nasal B.pertussis DNA PCR NOT DETECTED 11/12/22 17:46 Nasal C.pneumoniae (PCR) NOT DETECTED 11/12/22 17:46 Stanton Human Metapneumo PCR NOT DETECTED 11/12/22 17:46 Nasal M.pneumoniae (PCR) NOT DETECTED 11/12/22 17:46 Nasal SARS-CoV-2 (PCR) NOT DETECTED 11/12/22 17:46 Gastric Fluid pH TNP 11/12/22 18:48 Gastric Occult Blood POSITIVE (Negative) A 11/12/22 18:48 Blood Type O POSITIVE 11/12/22 17:24 Blood Type Recheck O POSITIVE 11/12/22 18:58 Antibody Screen NEGATIVE 11/12/22 17:24 Crossmatch IS Only See Detail 11/12/22 17:24 - Procedures Procedures: Procedures EXCISION OF RECTUM, ENDO, DIAGN (09/08/21) INSPECTION OF LOWER INTESTINAL TRACT, ENDO (04/19/16) TOTAL KNEE REPLACEMENT (08/03/14) Sepsis Event Note (H) - Evaluation Current Stage of Sepsis: Ruled out
[2022-11-13] MEDS: ACETAMINOPHEN 325 MG TABLET PO PRN (19:10)
[2022-11-13 20:46] LABS: VBG PH 7.499 (7.31-7.41)
[2022-11-13 20:47] LABS: CALCIUM, IONIZED 1.07 mmol/L (1.15-1.33)
[2022-11-13 20:48] LABS: BASOPHILS # (AUTO) 0.1 10^3/uL (0.0-0.1); BASOPHILS % (AUTO) 0.5 %; EOSINOPHILS % (AUTO) 0.1 %; HCT - HEMATOCRIT 21.6 % (37.0-47.0); LYMPHOCYTES # (AUTO) 3.1 10^3/uL (1.5-3.5); LYMPHOCYTES % (AUTO) 17.9 %; MEAN CORPUSCULAR HEMOGLOBIN 28.5 pg (27.0-31.0); MEAN CORPUSCULAR HGB CONC 32.4 g/dL (32.0-36.0); MEAN CORPUSCULAR VOLUME 87.8 fL (81.0-99.0); MEAN PLATELET VOLUME 9.2 fL (7.9-10.8); MONOCYTES % (AUTO) 5.9 %; NEUTROPHILS # (AUTO) 12.9 10^3/uL (1.5-6.6); NEUTROPHILS % (AUTO) 74.3 %; NRBC ABSOLUTE COUNT (AUTO) 0.06 x10^3/uL; NUCLEATED RED BLOOD CELLS AUTO 0.3 /100WBC; PLT - PLATELET COUNT 365 10^3/uL (130-450); RED BLOOD COUNT 2.46 10^6/uL (4.20-5.40); RED CELL DISTRIBUTION WIDTH 16.7 % (12.0-15.0); WHITE BLOOD COUNT 17.3 x10^3/uL (4.8-10.8)
[2022-11-13 21:02] LABS: MAGNESIUM 1.8 mg/dL (1.7-2.8); PHOSPHORUS 2.1 mg/dL (2.5-4.6); POTASSIUM 3.6 mmol/L (3.5-5.0)
--- NOTE | 2022-11-13 21:30 | PROVIDER PROGRESS NOTE ---
Dinkey Operator Note - Dinkey Operator Note Dinkey Operator Note: RN reporting hgb 7. previous 6.5. s/p 3 units. s/p EGD noting nonbleeding ulcer. day progress note reviewed and noted transfuse if hgb<7 will monitor hgb and if <7 then transfuse. Anders Green DO Internal Medicine [facility] Tele Dinkey Operator
[2022-11-13] MEDS: ATORVASTATIN 10 MG TABLET PO SCH (21:41)
[2022-11-13] MEDS ORDERED: CALCIUM CHLORIDE 1,000 MG in SODIUM CHLORIDE 0.9% 50 ML IV ONE (21:59)
[2022-11-13] MEDS ORDERED: SODIUM CHLORIDE 0.9% 500 ML IV PRN (22:01)
[2022-11-13] MEDS ORDERED: CALCIUM GLUC 1,000MG/50ML-NACL 1,000 MG/50 ML BAG IV ONE (22:20)
[2022-11-13] MEDS: NEUTRA-PHOS 250 MG TABLET PO SCH (22:24)
[2022-11-14] MEDS: NEUTRA-PHOS 250 MG TABLET PO SCH (00:30)
[2022-11-14] MEDS: SODIUM CHLORIDE FLUSH 0.9% 10 ML SYRINGE IVP SCH ×4 (00:30→22:21)
[2022-11-14] MEDS: SODIUM CHLORIDE FLUSH 0.9% 10 ML SYRINGE IVP PRN (01:58)
[2022-11-14 02:11] LABS: BASOPHILS # (AUTO) 0.1 10^3/uL (0.0-0.1); BASOPHILS % (AUTO) 0.4 %; EOSINOPHILS # (AUTO) 0.1 10^3/uL (0.0-0.7); EOSINOPHILS % (AUTO) 0.6 %; LYMPHOCYTES # (AUTO) 2.9 10^3/uL (1.5-3.5); LYMPHOCYTES % (AUTO) 22.4 %; MEAN CORPUSCULAR HEMOGLOBIN 29.2 pg (27.0-31.0); MEAN CORPUSCULAR HGB CONC 32.8 g/dL (32.0-36.0); MEAN PLATELET VOLUME 9.2 fL (7.9-10.8); MONOCYTES # (AUTO) 0.7 10^3/uL (0.0-1.0); MONOCYTES % (AUTO) 5.3 %; NEUTROPHILS # (AUTO) 9.1 10^3/uL (1.5-6.6); NEUTROPHILS % (AUTO) 70.2 %; NRBC ABSOLUTE COUNT (AUTO) 0.02 x10^3/uL; NUCLEATED RED BLOOD CELLS AUTO 0.2 /100WBC; PLT - PLATELET COUNT 315 10^3/uL (130-450); RED BLOOD COUNT 2.19 10^6/uL (4.20-5.40); RED CELL DISTRIBUTION WIDTH 17.2 % (12.0-15.0)
[2022-11-14 02:14] LABS: HCT - HEMATOCRIT 19.5 % (37.0-47.0); HGB - HEMOGLOBIN 6.4 g/dL (12.0-16.0)
[2022-11-14 02:23] LABS: MAGNESIUM 2.5 mg/dL (1.7-2.8); PHOSPHORUS 3.1 mg/dL (2.5-4.6); POTASSIUM 3.8 mmol/L (3.5-5.0)
[2022-11-14 03:35] LABS: CALCIUM, IONIZED 1.14 mmol/L (1.15-1.33); VBG PH 7.418 (7.31-7.41)
[2022-11-14] MEDS ORDERED: POTASSIUM CHLOR 20 MEQ/100 ML 20 MEQ/100 ML BAG IV ONE (03:45)
[2022-11-14] MEDS: PANTOPRAZOLE 80 MG in SODIUM CHLORIDE 0.9% 100ML 100 ML IV SCH (03:54)
[2022-11-14] MEDS: SUCRALFATE 1 GM/10 ML UDC PO SCH ×4 (06:33→22:21)
--- NOTE | 2022-11-14 07:34 | PROVIDER PROGRESS NOTE ---
Subjective - General Admit Date: 11/12/22 Procedure Date: 11/13/22 Post Op Days: 1 Procedure Performed: EGD with biopsy and epinephrine injection - Other Other Information/Narrative: Patient denies pain this AM. No further nausea or vomiting overnight. Tolerating clears. +void. Overall, states she is feeling better than yesterday. Objective - Patient Data Reviewed Vital Signs: Yes Vital Signs: Vital Signs x48h Temp Pulse Resp BP Pulse Ox 11/14/22 07:00 79 15 70/59 L 100 11/14/22 06:00 81 15 100/51 L 99 11/14/22 05:00 84 17 99/50 L 100 11/14/22 04:46 36.7 C 83 17 99/50 L 100 11/14/22 04:27 36.7 C 83 18 98/59 L 99 11/14/22 04:00 36.5 C 85 17 98/51 L 97 11/14/22 03:00 88 17 141/63 H 99 11/14/22 02:00 85 25 H 141/62 H 99 11/14/22 01:00 86 16 138/62 H 98 11/14/22 00:00 36.7 C 87 16 129/56 L 100 Weight: Weight 11/12/22 11/13/22 11/14/22 23:59 23:59 23:59 Weight (kg) 88.5 kg 88.5 kg 88 kg Intake & Output: Intake and Output Totals x24h 11/12/22 11/13/22 11/14/22 23:59 23:59 23:59 Intake Total 1051 4625.167 1600 Output Total 0 100 0 Balance 1051 4525.167 1600 - Lab Results Lab Results: 11/14/22 02:00 11/14/22 02:00 Other Lab Results: Lab Results x24hrs 11/14/22 11/14/22 11/14/22 Range/Units 02:00 02:00 02:00 WBC 13.0 H (4.8-10.8) x10^3/uL RBC 2.19 L (4.20-5.40) 10^6/uL Hgb 6.4 L* (12.0-16.0) g/dL Hct 19.5 L* (37.0-47.0) % MCV 89.0 (81.0-99.0) fL MCH 29.2 (27.0-31.0) pg MCHC 32.8 (32.0-36.0) g/dL RDW 17.2 H (12.0-15.0) % Plt Count 315 (130-450) 10^3/uL MPV 9.2 (7.9-10.8) fL Neut # (Auto) 9.1 H Lymph # (Auto) 2.9 [place] # (Auto) 0.7 Eos # (Auto) 0.1 Baso # (Auto) 0.1 Absolute Nucleated RBC 0.02 Total Counted Band Neuts % (Manual) (0 - 10) % Reactive Lymphs % (Man) % Abnorm Lymph % (Manual) % Myelocytes % ( - 0) % Nucleated RBC % 0.2 Neutrophils # (Manual) (1.5-6.6) 10^3/uL Lymphocytes # (Manual) (1.5-3.5) 10^3/uL Monocytes # (Manual) (0.0-1.0) 10^3/uL Eosinophils # (Manual) (0-0.7) 10^3/uL Basophils # (Manual) (0-0.1) 10^3/uL Nucleated RBCs % Differential Comment Manual Slide Review RBC Morph Micro Appear (NORMAL) VBG pH 7.418 H (7.31-7.41) Ionized Calcium 1.14 L (1.15-1.33) mmol/L Potassium 3.8 (3.5-5.0) mmol/L Phosphorus 3.1 (2.5-4.6) mg/dL Magnesium 2.5 (1.7-2.8) mg/dL Blood Type Antibody Screen Crossmatch IS Only 11/13/22 11/13/22 11/13/22 Range/Units 20:39 20:39 20:39 WBC 17.3 H (4.8-10.8) x10^3/uL RBC 2.46 L (4.20-5.40) 10^6/uL Hgb 7.0 L* (12.0-16.0) g/dL Hct 21.6 L (37.0-47.0) % MCV 87.8 (81.0-99.0) fL MCH 28.5 (27.0-31.0) pg MCHC 32.4 (32.0-36.0) g/dL RDW 16.7 H (12.0-15.0) % Plt Count 365 (130-450) 10^3/uL MPV 9.2 (7.9-10.8) fL Neut # (Auto) 12.9 H Lymph # (Auto) 3.1 [place] # (Auto) 1.0 Eos # (Auto) 0.0 Baso # (Auto) 0.1 Absolute Nucleated RBC 0.06 Total Counted Band Neuts % (Manual) (0 - 10) % Reactive Lymphs % (Man) % Abnorm Lymph % (Manual) % Myelocytes % ( - 0) % Nucleated RBC % 0.3 Neutrophils # (Manual) (1.5-6.6) 10^3/uL Lymphocytes # (Manual) (1.5-3.5) 10^3/uL Monocytes # (Manual) (0.0-1.0) 10^3/uL Eosinophils # (Manual) (0-0.7) 10^3/uL Basophils # (Manual) (0-0.1) 10^3/uL Nucleated RBCs % Differential Comment Manual Slide Review RBC Morph Micro Appear (NORMAL) VBG pH 7.499 H (7.31-7.41) Ionized Calcium 1.07 L (1.15-1.33) mmol/L Potassium 3.6 (3.5-5.0) mmol/L Phosphorus 2.1 L (2.5-4.6) mg/dL Magnesium 1.8 (1.7-2.8) mg/dL Blood Type Antibody Screen Crossmatch IS Only 11/13/22 11/13/22 11/13/22 Range/Units 14:24 14:24 10:12 WBC 21.7 H 22.9 H (4.8-10.8) x10^3/uL RBC 2.18 L 2.42 L (4.20-5.40) 10^6/uL Hgb 6.5 L* 7.1 L (12.0-16.0) g/dL Hct 19.4 L* 21.8 L (37.0-47.0) % MCV 89.0 90.1 (81.0-99.0) fL MCH 29.8 29.3 (27.0-31.0) pg MCHC 33.5 32.6 (32.0-36.0) g/dL RDW 17.0 H 16.8 H (12.0-15.0) % Plt Count 401 457 H (130-450) 10^3/uL MPV 9.4 9.2 (7.9-10.8) fL Neut # (Auto) VERIFICATION CLERK Not Reportable Lymph # (Auto) VERIFICATION CLERK Not Reportable [place] # (Auto) VERIFICATION CLERK Not Reportable Eos # (Auto) VERIFICATION CLERK Not Reportable Baso # (Auto) VERIFICATION CLERK Not Reportable Absolute Nucleated RBC VERIFICATION CLERK Not Reportable Total Counted 100 100 Band Neuts % (Manual) 2 3 (0 - 10) % Reactive Lymphs % (Man) 2 % Abnorm Lymph % (Manual) 0 0 % Myelocytes % 1 H 4 H ( - 0) % Nucleated RBC % VERIFICATION CLERK Not Reportable Neutrophils # (Manual) 19.1 H 21.1 H (1.5-6.6) 10^3/uL Lymphocytes # (Manual) 1.7 0.7 L (1.5-3.5) 10^3/uL Monocytes # (Manual) 0.7 0.2 (0.0-1.0) 10^3/uL Eosinophils # (Manual) 0.0 0.0 (0-0.7) 10^3/uL Basophils # (Manual) 0.0 0.0 (0-0.1) 10^3/uL Nucleated RBCs 1 % Differential Comment MANUAL DIFFERENTIAL MANUAL DIFFERENTIAL Manual Slide Review Indicated Indicated RBC Morph Micro Appear 3+ HYPOCHROMASIA 3+ ANISOCYTOSIS (NORMAL) VBG pH (7.31-7.41) Ionized Calcium (1.15-1.33) mmol/L Potassium 3.8 (3.5-5.0) mmol/L Phosphorus (2.5-4.6) mg/dL Magnesium 1.5 L (1.7-2.8) mg/dL Blood Type Antibody Screen Crossmatch IS Only 11/13/22 11/12/22 Range/Units 10:12 17:24 WBC (4.8-10.8) x10^3/uL RBC (4.20-5.40) 10^6/uL Hgb (12.0-16.0) g/dL Hct (37.0-47.0) % MCV (81.0-99.0) fL MCH (27.0-31.0) pg MCHC (32.0-36.0) g/dL RDW (12.0-15.0) % Plt Count (130-450) 10^3/uL MPV (7.9-10.8) fL Neut # (Auto) Lymph # (Auto) [place] # (Auto) Eos # (Auto) Baso # (Auto) Absolute Nucleated RBC Total Counted Band Neuts % (Manual) (0 - 10) % Reactive Lymphs % (Man) % Abnorm Lymph % (Manual) % Myelocytes % ( - 0) % Nucleated RBC % Neutrophils # (Manual) (1.5-6.6) 10^3/uL Lymphocytes # (Manual) (1.5-3.5) 10^3/uL Monocytes # (Manual) (0.0-1.0) 10^3/uL Eosinophils # (Manual) (0-0.7) 10^3/uL Basophils # (Manual) (0-0.1) 10^3/uL Nucleated RBCs % Differential Comment Manual Slide Review RBC Morph Micro Appear (NORMAL) VBG pH 7.458 H (7.31-7.41) Ionized Calcium 1.03 L (1.15-1.33) mmol/L Potassium (3.5-5.0) mmol/L Phosphorus (2.5-4.6) mg/dL Magnesium (1.7-2.8) mg/dL Blood Type O POSITIVE Antibody Screen NEGATIVE Crossmatch IS Only See Detail - Current Medications Current Medications: Current Medications Generic Name Dose Route Start Last Admin Trade Name Jesús PRN Reason Stop Dose Admin Acetaminophen 650 mg 11/12/22 21:38 11/13/22 19:10 Acetaminophen 325 Mg Tablet PO 650 mg Q4HR PRN Administration Pain 1 to 4, or Fever Atorvastatin Calcium 20 mg 11/13/22 21:00 11/13/22 21:41 Atorvastatin 10 Mg Tablet PO 20 mg HS MINDI Administration Escitalopram Oxalate 20 mg 11/13/22 09:00 11/13/22 11:31 Escitalopram 10 Mg Tablet PO 20 mg DAILY MINDI Administration Hydromorphone HCl 0.2 - 0.6 mg 11/13/22 08:48 11/13/22 19:39 Hydromorphone 0.5 Mg/0.5 Ml Syringe IVP 11/14/22 08:49 0.5 mg Q5M PRN Administration PAIN ([facility] Choice) Cefepime HCl 2 gm/ Sodium 100 mls @ 200 mls/hr 11/13/22 09:00 11/13/22 22:37 Chloride IV Infused BID MINDI Infusion Sodium Chloride 500 mls @ 20 mls/hr 11/13/22 22:01 11/14/22 01:58 Normal Saline 0.9% IV 20 mls/hr Q24H PRN Administration TKO RATE Multi-Ingredient Ointment 1 applic 11/13/22 04:50 11/13/22 20:41 Zinc Oxide 20% Oint 30 Gm Tube TOP 1 applic PRN PRN Administration Skin Care Ondansetron HCl 4 mg 11/12/22 23:59 11/13/22 04:01 Ondansetron 4 Mg/2 Ml Vial IVP 4 mg Q6HR PRN Administration Nausea / Vomiting Sodium Chloride 10 ml 11/13/22 01:00 11/14/22 00:30 Sodium Chloride Flush 0.9% 10 Ml Syringe IVP Not Given 0100,0900,1700 [facility] Sodium Chloride 10 ml 11/12/22 21:38 11/14/22 01:58 Sodium Chloride Flush 0.9% 10 Ml Syringe IVP 20 ml PRN PRN Administration NEEDED PER PROVIDER ORDERS Sucralfate 1 gm 11/13/22 11:00 11/14/22 06:33 Sucralfate 1 Gm/10 Ml Udc PO 1 gm 0700,1100,1600,2200 [facility] Administration - Physical Exam General Appearance: positive: No acute distress (much more alert this AM) Eyes Bilateral: positive: PERRL, EOMI ENT: positive: No signs of dehydration Neck: positive: Trachea midline Respiratory: positive: No respiratory distress Cardiovascular: positive: Regular rate & rhythm Abdomen: positive: Non-tender, No distention. negative: Tenderness, Guarding, Rebound, Mass Skin: positive: Pallor (improving) Neurologic/Psychiatric: positive: Oriented x3 Impression/Plan - Problem List Problem List: 72 y/o F with: 1. acute GI bleed, jesus ulcer - EGD 11/13 with biopsy and epi injection into non bleeding ulcers that demonstrated stigmata of recent bleeding (adherent clot) - tolerating clears, no n/v overnight - HD stable, tachycardia has resolved; color improved this AM. I do not think the patient is continuing to bleed. - Continue IV PPI, carafate prn - clears until hgb stable - recommend avoiding blood thinning medications 2. ABLA - transfusing fourth unit at time of my visit, ordering FFP this AM - recommend trending hgb with q6h hemoglobin until stable - recommend 1:1:1 transfusion with plasma and platelets as well 2. 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 Patient was scheduled to meet with ID today (11/14) - recommend continue current abx, consideration of ortho/ID consultation while hospitalized 3. hpl, depression, anxiety, osteoporosis - as per primary team Thank you for consulting me in the care of this patient! I will continue to follow closely.
[2022-11-14] MEDS: PANTOPRAZOLE 40 MG VIAL IV SCH ×2 (07:57→20:14)
[2022-11-14] MEDS: ESCITALOPRAM 10 MG TABLET PO SCH (08:19)
[2022-11-14] MEDS: CEFEPIME 2 GM in SODIUM CHLORIDE 0.9% MINIBAG 100 ML IV SCH ×2 (08:20→22:21)
[2022-11-14] MEDS: ACETAMINOPHEN 325 MG TABLET PO PRN (09:12)
[2022-11-14 09:44] LABS: BASOPHILS # (AUTO) 0.1 10^3/uL (0.0-0.1); BASOPHILS % (AUTO) 0.6 %; EOSINOPHILS # (AUTO) 0.2 10^3/uL (0.0-0.7); EOSINOPHILS % (AUTO) 1.7 %; HCT - HEMATOCRIT 21.9 % (37.0-47.0); HGB - HEMOGLOBIN 7.2 g/dL (12.0-16.0); LYMPHOCYTES # (AUTO) 1.9 10^3/uL (1.5-3.5); LYMPHOCYTES % (AUTO) 18.3 %; MEAN CORPUSCULAR HEMOGLOBIN 29.4 pg (27.0-31.0); MEAN CORPUSCULAR HGB CONC 32.9 g/dL (32.0-36.0); MEAN CORPUSCULAR VOLUME 89.4 fL (81.0-99.0); MONOCYTES # (AUTO) 0.7 10^3/uL (0.0-1.0); MONOCYTES % (AUTO) 6.2 %; NEUTROPHILS # (AUTO) 7.5 10^3/uL (1.5-6.6); NRBC ABSOLUTE COUNT (AUTO) 0.03 x10^3/uL; NUCLEATED RED BLOOD CELLS AUTO 0.3 /100WBC; PLT - PLATELET COUNT 266 10^3/uL (130-450); RED BLOOD COUNT 2.45 10^6/uL (4.20-5.40); RED CELL DISTRIBUTION WIDTH 17.1 % (12.0-15.0); WHITE BLOOD COUNT 10.4 x10^3/uL (4.8-10.8)
[2022-11-14 09:50] LABS: VBG PH 7.451 (7.31-7.41)
[2022-11-14 09:51] LABS: CALCIUM, IONIZED 1.06 mmol/L (1.15-1.33)
[2022-11-14 09:55] LABS: ALBUMIN 1.9 g/dL (3.2-5.5); ALBUMIN/GLOBULIN RATIO 0.8 (1.0-2.2); ALKALINE PHOSPHATASE 46 IU/L (42-121); ALT ALANINE AMINOTRANSFERASE < 10 IU/L (10-60); AST ASPARTATE AMINOTRANSFERASE 14 IU/L (10-42); BILIRUBIN,TOTAL 0.4 mg/dL (0.2-1.0); BUN - BLOOD UREA NITROGEN 36 mg/dL (6-20); CALCIUM 7.4 mg/dL (8.5-10.3); CARBON DIOXIDE - CO2 28 mmol/L (21-32); CHLORIDE 107 mmol/L (101-111); CREATININE 0.8 mg/dL (0.4-1.0); GFR - MDRD 71 (>89); GLUCOSE 119 mg/dL (70-100); SODIUM 138 mmol/L (135-145); TOTAL PROTEIN 4.3 g/dL (6.7-8.2)
[2022-11-14] MEDS: ZINC OXIDE 20% OINT 30 GM TUBE TOP PRN (10:35)
[2022-11-14] MEDS ORDERED: MORPHINE 2 MG/ML CARPUJECT IVP PRN (10:45)
[2022-11-14] MEDS ORDERED: traMADol 50 MG TABLET PO ONE (10:52)
[2022-11-14] MEDS: traMADol 50 MG TABLET PO PRN ×3 (10:53→19:19)
--- NOTE | 2022-11-14 14:51 | PROVIDER PROGRESS NOTE ---
Assessment/Plan - Problem List (1) UGIB (upper gastrointestinal bleed) Assessment/Plan: Assessment/Plan: Conclusion/Plan: NPO except sips and ice chips Possible NSAID induced gastritis and ulcer IV protonbix bid Surgery consulted by ER Plan fopr EGD in am Transfuse if Hb < 7 Verbal consent obtained for blood transfusion Per general surgery post EGD this a.m.: Non bleeding jesus's ulcers identified on EGD. Epi injected, biopsies taken. Plan to continue to monitor Hgb, treat with PPI and carafate prn epigastric pain. If patient rebleeds, I would plan to repeat EGD. November 14, 2022-patient progressing diet as tolerated -Patient did get 1 unit PRBC transfusion along with FFP transfusion today (3) Depression Conclusion/Plan: Continue Lexapro in good spirits no SI or Hi (5) History of hip surgery Conclusion/Plan: Tylenol or moprhine prn pain Hold NSAIDS PT to work with patient -Patient on IV cefepime 2 g every 12 hours for postop hip surgery infection - Current Meds Current Meds: Current Medications Generic Name Dose Route Start Last Admin Trade Name Freq PRN Reason Stop Dose Admin Acetaminophen 650 mg 11/12/22 21:38 11/14/22 09:12 Acetaminophen 325 Mg Tablet PO 650 mg Q4HR PRN Administration Pain 1 to 4, or Fever Atorvastatin Calcium 20 mg 11/13/22 21:00 11/13/22 21:41 Atorvastatin 10 Mg Tablet PO 20 mg HS MINDI Administration Escitalopram Oxalate 20 mg 11/13/22 09:00 11/14/22 08:19 Escitalopram 10 Mg Tablet PO 20 mg DAILY MINDI Administration Cefepime HCl 2 gm/ Sodium 100 mls @ 200 mls/hr 11/13/22 09:00 11/14/22 09:20 Chloride IV Infused BID MINDI Infusion Sodium Chloride 500 mls @ 20 mls/hr 11/13/22 22:01 11/14/22 01:58 Normal Saline 0.9% IV 20 mls/hr Q24H PRN Administration TKO RATE Morphine Sulfate 2 mg 11/14/22 10:45 11/14/22 10:51 Morphine 2 Mg/Ml Carpuject IVP 2 mg Q2HR PRN Administration Severe Pain (Level 7-10) Multi-Ingredient Ointment 1 applic 11/13/22 04:50 11/14/22 10:35 Zinc Oxide 20% Oint 30 Gm Tube TOP 1 applic PRN PRN Administration Skin Care Ondansetron HCl 4 mg 11/12/22 23:59 11/13/22 04:01 Ondansetron 4 Mg/2 Ml Vial IVP 4 mg Q6HR PRN Administration Nausea / Vomiting Pantoprazole Sodium 40 mg 11/14/22 08:00 11/14/22 07:57 Pantoprazole 40 Mg Vial IV 40 mg Q12H MINDI Administration Sodium Chloride 10 ml 11/13/22 01:00 11/14/22 07:59 Sodium Chloride Flush 0.9% 10 Ml Syringe IVP 10 ml 0100,0900,1700 MINDI Administration Sodium Chloride 10 ml 11/12/22 21:38 11/14/22 01:58 Sodium Chloride Flush 0.9% 10 Ml Syringe IVP 20 ml PRN PRN Administration NEEDED PER PROVIDER ORDERS Sucralfate 1 gm 11/13/22 11:00 11/14/22 11:54 Sucralfate 1 Gm/10 Ml Udc PO 1 gm 0700,1100,1600,2200 MINDI Administration Tramadol HCl 50 mg 11/14/22 10:45 11/14/22 10:53 Tramadol 50 Mg Tablet PO 50 mg Q4HR PRN Administration Moderate Pain (Level 4-6) - Lab Result Fish Bone Diagrams: 11/14/22 09:30 11/14/22 09:30 - Additional Planning My Orders: My Active Orders 11/14/22 10:45 Morphine Inj (Carpuject) [Morphine (Carpuject)] 2 mg IVP Q2HR PRN traMADol [Ultram] 50 mg PO Q4HR PRN 11/14/22 Lunch Regular Diet [DIET] 11/14/22 14:46 Admit \ Transfer \ Status [RC] .ONCE 11/14/22 17:00 Cholecalciferol [Vitamin D3] 50 mcg PO DAILY Ferrous Sulfate [Feosol] 325 mg PO BIDWM 11/14/22 21:00 Calcium Carbonate [Tums] 500 mg PO BID 11/15/22 05:00 COMPREHENSIVE METABOLIC PANEL [CHEM] DAILYLAB 11/16/22 05:00 COMPREHENSIVE METABOLIC PANEL [CHEM] DAILYLAB 11/17/22 05:00 COMPREHENSIVE METABOLIC PANEL [CHEM] DAILYLAB 11/18/22 05:00 COMPREHENSIVE METABOLIC PANEL [CHEM] DAILYLAB 11/19/22 05:00 COMPREHENSIVE METABOLIC PANEL [CHEM] DAILYLAB 11/20/22 05:00 COMPREHENSIVE METABOLIC PANEL [CHEM] DAILYLAB Subjective - Subjective Nursing Reports: Other (Tolerated clears without any problems. He has not had any further episodes of vomiting or nausea.) Objective Vital Signs: Vital Signs - 24 hr 11/13/22 11/13/22 11/13/22 15:00 16:00 16:08 Temperature 37.4 C 37.4 C Heart Rate [ 100 97 99 Monitoring electrodes] Respiratory 20 27 H 14 Rate Blood Pressure 140/85 H 138/71 H 138/71 H [Left Brachial artery] O2 Saturation 100 99 100 11/13/22 11/13/22 11/13/22 16:30 17:00 18:00 Temperature 37.3 C Heart Rate [ 98 94 94 Monitoring electrodes] Respiratory 17 20 20 Rate Blood Pressure 138/67 H 143/61 H 130/62 [Left Brachial artery] O2 Saturation 100 99 99 11/13/22 11/13/22 11/13/22 19:00 19:01 19:05 Temperature 37 C 37 C 37 C Heart Rate [ 90 90 94 Monitoring electrodes] Respiratory 20 16 18 Rate Blood Pressure 148/70 H 148/70 H 148/70 H [Left Brachial artery] O2 Saturation 99 100 100 11/13/22 11/13/22 11/13/22 20:00 21:00 22:00 Temperature Heart Rate [ 90 91 92 Monitoring electrodes] Respiratory 18 15 16 Rate Blood Pressure 156/64 H 141/54 H 139/60 H [Left Brachial artery] O2 Saturation 97 98 96 11/13/22 11/14/22 11/14/22 23:00 00:00 01:00 Temperature 36.7 C Heart Rate [ 88 87 86 Monitoring electrodes] Respiratory 16 16 16 Rate Blood Pressure 144/57 H 129/56 L 138/62 H [Left Brachial artery] O2 Saturation 96 100 98 11/14/22 11/14/22 11/14/22 02:00 03:00 04:00 Temperature 36.5 C Heart Rate [ 85 88 85 Monitoring electrodes] Respiratory 25 H 17 17 Rate Blood Pressure 141/62 H 141/63 H 98/51 L [Left Brachial artery] O2 Saturation 99 99 97 11/14/22 11/14/22 11/14/22 04:27 04:46 05:00 Temperature 36.7 C 36.7 C Heart Rate [ 83 83 84 Monitoring electrodes] Respiratory 18 17 17 Rate Blood Pressure 98/59 L 99/50 L 99/50 L [Left Brachial artery] O2 Saturation 99 100 100 11/14/22 11/14/22 11/14/22 06:00 07:00 08:00 Temperature 36.8 C Heart Rate [ 81 79 83 Monitoring electrodes] Respiratory 15 15 20 Rate Blood Pressure 100/51 L 70/59 L 99/52 L [Left Brachial artery] O2 Saturation 99 100 100 11/14/22 11/14/22 11/14/22 08:47 08:50 09:00 Temperature 98.4 C H 98.4 C H Heart Rate [ 81 82 85 Monitoring electrodes] Respiratory 17 18 21 Rate Blood Pressure 99/52 L 99/52 L 110/56 L [Left Brachial artery] O2 Saturation 100 100 98 11/14/22 11/14/22 11/14/22 09:07 09:21 09:24 Temperature 98.2 C H 98.2 C H 98.2 C H Heart Rate [ 86 79 81 Monitoring electrodes] Respiratory 20 16 18 Rate Blood Pressure 107/59 L 108/54 L 108/54 L [Left Brachial artery] O2 Saturation 100 100 99 11/14/22 11/14/22 11/14/22 10:00 11:00 12:00 Temperature Heart Rate [ 82 74 84 Monitoring electrodes] Respiratory 26 H 16 17 Rate Blood Pressure 111/56 L 110/89 H 120/61 [Left Brachial artery] O2 Saturation 99 100 97 11/14/22 11/14/22 13:00 14:00 Temperature Heart Rate [ 88 91 Monitoring electrodes] Respiratory 16 18 Rate Blood Pressure 111/54 L 113/58 L [Left Brachial artery] O2 Saturation 97 97 Oxygen O2 Source [With Activity] Room air O2 Source [Without Activity] Room air O2 Source Room air I&O (Last 24 Hrs): Intake and Output Totals x24h 11/12/22 11/13/22 11/14/22 23:59 23:59 23:59 Intake Total 1051 4625.167 3247.5 Output Total 0 100 0 Balance 1051 4525.167 3247.5 General: Alert, Oriented x3 HEENT: Atraumatic Neck: Supple Neuro: Alert Cardiovascular: Regular rate Respiratory: Breath sounds nml Abdomen: Soft, No tenderness Extremities: No tenderness/swelling Skin: No rashes - Results Results: Laboratory Results WBC 10.4 x10^3/uL (4.8-10.8) 11/14/22 09:30 RBC 2.45 10^6/uL (4.20-5.40) L 11/14/22 09:30 Hgb 7.2 g/dL (12.0-16.0) L 11/14/22 09:30 Hct 21.9 % (37.0-47.0) L 11/14/22 09:30 MCV 89.4 fL (81.0-99.0) 11/14/22 09:30 MCH 29.4 pg (27.0-31.0) 11/14/22 09:30 MCHC 32.9 g/dL (32.0-36.0) 11/14/22 09:30 RDW 17.1 % (12.0-15.0) H 11/14/22 09:30 Plt Count 266 10^3/uL (130-450) 11/14/22 09:30 MPV 9.0 fL (7.9-10.8) 11/14/22 09:30 Neut # (Auto) 7.5 10^3/uL (1.5-6.6) H 11/14/22 09:30 Lymph # (Auto) 1.9 10^3/uL (1.5-3.5) 11/14/22 09:30 [place] # (Auto) 0.7 10^3/uL (0.0-1.0) 11/14/22 09:30 Eos # (Auto) 0.2 10^3/uL (0.0-0.7) 11/14/22 09:30 Baso # (Auto) 0.1 10^3/uL (0.0-0.1) 11/14/22 09:30 Absolute Nucleated RBC 0.03 x10^3/uL 11/14/22 09:30 Total Counted 100 11/13/22 14:24 Band Neuts % (Manual) 2 % (0-10) 11/13/22 14:24 Reactive Lymphs % (Man) 2 % 11/13/22 14:24 Abnorm Lymph % (Manual) 0 % 11/13/22 14:24 Myelocytes % 1 % (-0) H 11/13/22 14:24 Nucleated RBC % 0.3 /100WBC 11/14/22 09:30 Neutrophils # (Manual) 19.1 10^3/uL (1.5-6.6) H 11/13/22 14:24 Lymphocytes # (Manual) 1.7 10^3/uL (1.5-3.5) 11/13/22 14:24 Monocytes # (Manual) 0.7 10^3/uL (0.0-1.0) 11/13/22 14:24 Eosinophils # (Manual) 0.0 10^3/uL (0-0.7) 11/13/22 14:24 Basophils # (Manual) 0.0 10^3/uL (0-0.1) 11/13/22 14:24 Nucleated RBCs 1 % 11/13/22 14:24 Differential Comment MANUAL DIFFERENTIAL 11/13/22 14:24 Manual Slide Review Indicated 11/13/22 14:24 WBC Morphology NORMAL APPEARANCE (NORMAL) 11/13/22 04:34 Platelet Estimate INCREASED (>450,000) (NORMAL) 11/13/22 04:34 Platelet Morphology NORMAL APPEARANCE (NORMAL) 11/13/22 04:34 RBC Morph Micro Appear 3+ ANISOCYTOSIS (NORMAL) 3+ HYPOCHROMASIA (NORMAL) 11/13/22 14:24 RBC Morph Micro Appear 3+ ANISOCYTOSIS (NORMAL) 3+ HYPOCHROMASIA (NORMAL) 11/13/22 14:24 PT 15.5 secs (9.9-12.6) H 11/12/22 21:05 INR 1.4 (0.8-1.2) H 11/12/22 21:05 APTT 30.2 secs (24.9-33.3) 11/12/22 21:05 VBG pH 7.451 (7.31-7.41) H 11/14/22 09:30 Ionized Calcium 1.06 mmol/L (1.15-1.33) L 11/14/22 09:30 Sodium 138 mmol/L (135-145) 11/14/22 09:30 Potassium 4.0 mmol/L (3.5-5.0) 11/14/22 09:30 Chloride 107 mmol/L (101-111) 11/14/22 09:30 Carbon Dioxide 28 mmol/L (21-32) 11/14/22 09:30 Anion Gap 3.0 (6-13) L 11/14/22 09:30 BUN 36 mg/dL (6-20) H 11/14/22 09:30 Creatinine 0.8 mg/dL (0.4-1.0) 11/14/22 09:30 Estimated GFR (MDRD) 71 (>89) L 11/14/22 09:30 Glucose 119 mg/dL (70-100) H 11/14/22 09:30 Calcium 7.4 mg/dL (8.5-10.3) L 11/14/22 09:30 Phosphorus 3.1 mg/dL (2.5-4.6) 11/14/22 02:00 Magnesium 2.5 mg/dL (1.7-2.8) 11/14/22 02:00 Total Bilirubin 0.4 mg/dL (0.2-1.0) 11/14/22 09:30 AST 14 IU/L (10-42) 11/14/22 09:30 ALT < 10 IU/L (10-60) L 11/14/22 09:30 Alkaline Phosphatase 46 IU/L (42-121) 11/14/22 09:30 Total Protein 4.3 g/dL (6.7-8.2) L 11/14/22 09:30 Albumin 1.9 g/dL (3.2-5.5) L 11/14/22 09:30 Globulin 2.4 g/dL (2.1-4.2) 11/14/22 09:30 Albumin/Globulin Ratio 0.8 (1.0-2.2) L 11/14/22 09:30 Lipase 21 U/L (22-51) L 11/12/22 17:22 Nasal Adenovirus (PCR) NOT DETECTED 11/12/22 17:46 Nasal B. parapertussis DNA (PCR) NOT DETECTED 11/12/22 17:46 Nasal Coronavir 229E PCR NOT DETECTED 11/12/22 17:46 Nasal Coronavir HKU1 PCR NOT DETECTED 11/12/22 17:46 Nasal Coronavir NL63 PCR NOT DETECTED 11/12/22 17:46 Nasal Coronavir OC43 PCR NOT DETECTED 11/12/22 17:46 Nasal Enterovir/Rhinovir PCR NOT DETECTED 11/12/22 17:46 Nasal Influenza B PCR NOT DETECTED 11/12/22 17:46 Nasal Influenza A PCR NOT DETECTED 11/12/22 17:46 Nasal Parainfluen 1 PCR NOT DETECTED 11/12/22 17:46 Nasal Parainfluen 2 PCR NOT DETECTED 11/12/22 17:46 Nasal Parainfluen 3 PCR NOT DETECTED 11/12/22 17:46 Nasal Parainfluen 4 PCR NOT DETECTED 11/12/22 17:46 Nasal RSV (PCR) NOT DETECTED 11/12/22 17:46 Nasal Screen MRSA (PCR) NEGATIVE (NEGATIVE) 11/12/22 23:15 Nasal B.pertussis DNA PCR NOT DETECTED 11/12/22 17:46 Nasal C.pneumoniae (PCR) NOT DETECTED 11/12/22 17:46 Stanton Human Metapneumo PCR NOT DETECTED 11/12/22 17:46 Nasal M.pneumoniae (PCR) NOT DETECTED 11/12/22 17:46 Nasal SARS-CoV-2 (PCR) NOT DETECTED 11/12/22 17:46 Gastric Fluid pH TNP 11/12/22 18:48 Gastric Occult Blood POSITIVE (Negative) A 11/12/22 18:48 Blood Type O POSITIVE 11/12/22 17:24 Blood Type Recheck O POSITIVE 11/12/22 18:58 Antibody Screen NEGATIVE 11/12/22 17:24 Crossmatch IS Only See Detail 11/12/22 17:24 - Procedures Procedures: Procedures EXCISION OF RECTUM, ENDO, DIAGN (09/08/21) INSPECTION OF LOWER INTESTINAL TRACT, ENDO (04/19/16) TOTAL KNEE REPLACEMENT (08/03/14) Sepsis Event Note (H) - Evaluation Current Stage of Sepsis: Ruled out ABX Reporting Has patient been on IV antibiotics over the past 48 hours?: Yes
[2022-11-14 17:00] LABS: BILIRUBIN,URINE NEGATIVE (NEGATIVE); GLUCOSE, URINE (UA) NEGATIVE (NEGATIVE); KETONES,URINE (UA) NEGATIVE (NEGATIVE); LEUKOCYTE ESTERASE, URINE NEGATIVE (NEGATIVE); NITRITE,URINE NEGATIVE (NEGATIVE); OCCULT BLOOD,URINE LARGE (NEGATIVE); PH,URINE 6.5 PH (5.0-7.5); PROTEIN,URINE 30 mg/dL (NEGATIVE); UROBILINOGEN,URINE 0.2 (NORMAL) E.U./dL (NORMAL)
[2022-11-14 17:01] LABS: CLARITY,URINE HAZY (CLEAR)
[2022-11-14 17:07] LABS: BACTERIA,URINE Moderate /HPF (None Seen); SQUAMOUS EPITHELIAL CELL,UR FEW Squamous (<= Few); WBC,URINE 0-3 /HPF (0-5); YEAST,URINE PRESENT
[2022-11-14] MEDS: FERROUS SULFATE 325 MG TABLET PO SCH (18:00)
[2022-11-14] MEDS: CHOLECALCIFEROL 25 MCG TABLET PO SCH (18:28)
[2022-11-14] MEDS: ATORVASTATIN 10 MG TABLET PO SCH (22:21)
[2022-11-14] MEDS: CALCIUM CARBONATE CHEW 500 MG TABLET PO SCH (22:21)
[2022-11-15] MEDS: SUCRALFATE 1 GM/10 ML UDC PO SCH ×4 (06:09→22:26)
[2022-11-15 06:17] LABS: CALCIUM, IONIZED 1.11 mmol/L (1.15-1.33); VBG PH 7.433 (7.31-7.41)
[2022-11-15 06:30] LABS: ALBUMIN 1.8 g/dL (3.2-5.5); ALBUMIN/GLOBULIN RATIO 0.7 (1.0-2.2); ALKALINE PHOSPHATASE 52 IU/L (42-121); ALT ALANINE AMINOTRANSFERASE < 10 IU/L (10-60); AST ASPARTATE AMINOTRANSFERASE 15 IU/L (10-42); BILIRUBIN,TOTAL 0.5 mg/dL (0.2-1.0); BUN - BLOOD UREA NITROGEN 25 mg/dL (6-20); CALCIUM 7.5 mg/dL (8.5-10.3); CARBON DIOXIDE - CO2 26 mmol/L (21-32); CHLORIDE 106 mmol/L (101-111); CREATININE 0.7 mg/dL (0.4-1.0); GFR - MDRD 82 (>89); GLUCOSE 101 mg/dL (70-100); PHOSPHORUS 3.5 mg/dL (2.5-4.6); POTASSIUM 3.6 mmol/L (3.5-5.0); SODIUM 136 mmol/L (135-145); TOTAL PROTEIN 4.4 g/dL (6.7-8.2)
[2022-11-15] MEDS: FERROUS SULFATE 325 MG TABLET PO SCH ×2 (08:24→16:52)
[2022-11-15] MEDS: CALCIUM CARBONATE CHEW 500 MG TABLET PO SCH ×2 (08:24→20:21)
[2022-11-15] MEDS: CEFEPIME 2 GM in SODIUM CHLORIDE 0.9% MINIBAG 100 ML IV SCH ×2 (08:24→20:21)
[2022-11-15] MEDS: ESCITALOPRAM 10 MG TABLET PO SCH (08:24)
[2022-11-15] MEDS: CHOLECALCIFEROL 25 MCG TABLET PO SCH (08:25)
[2022-11-15] MEDS: PANTOPRAZOLE 40 MG VIAL IV SCH ×2 (08:25→20:21)
[2022-11-15] MEDS: SODIUM CHLORIDE FLUSH 0.9% 10 ML SYRINGE IVP SCH ×2 (08:25→16:52)
--- NOTE | 2022-11-15 08:38 | PROVIDER PROGRESS NOTE ---
Subjective - General Admit Date: 11/12/22 Procedure Date: 11/13/22 Post Op Days: 2 Procedure Performed: EGD with biopsy and epinephrine injection - Other Other Information/Narrative: Tolerating diet. Transferred to floor yesterday. No vomiting, except with Mg pills. Feeling very anxious this afternoon. Objective - Patient Data Vital Signs: Vital Signs x48h Temp Pulse Resp BP Pulse Ox 11/15/22 08:11 36.4 C L 84 18 99/56 L 96 11/15/22 05:48 36.4 C L 88 18 114/63 95 Weight: Weight 11/13/22 11/14/22 11/15/22 23:59 23:59 23:59 Weight (kg) 88.5 kg 88 kg 88.5 kg Intake & Output: Intake and Output Totals x24h 11/13/22 11/14/22 11/15/22 23:59 23:59 23:59 Intake Total 4625.167 4117.5 Output Total 100 0 400 Balance 4525.167 4117.5 -400 - Lab Results Lab Results: 11/15/22 08:47 11/15/22 06:00 Other Lab Results: Lab Results x24hrs 11/15/22 11/15/22 11/14/22 Range/Units 06:00 06:00 16:36 WBC (4.8-10.8) x10^3/uL RBC (4.20-5.40) 10^6/uL Hgb (12.0-16.0) g/dL Hct (37.0-47.0) % MCV (81.0-99.0) fL MCH (27.0-31.0) pg MCHC (32.0-36.0) g/dL RDW (12.0-15.0) % Plt Count (130-450) 10^3/uL MPV (7.9-10.8) fL Neut # (Auto) (1.5-6.6) 10^3/uL Lymph # (Auto) (1.5-3.5) 10^3/uL [place] # (Auto) (0.0-1.0) 10^3/uL Eos # (Auto) (0.0-0.7) 10^3/uL Baso # (Auto) (0.0-0.1) 10^3/uL Absolute Nucleated RBC x10^3/uL Nucleated RBC % /100WBC VBG pH 7.433 H (7.31-7.41) Ionized Calcium 1.11 L (1.15-1.33) mmol/L Sodium 136 (135-145) mmol/L Potassium 3.6 (3.5-5.0) mmol/L Chloride 106 (101-111) mmol/L Carbon Dioxide 26 (21-32) mmol/L Anion Gap 4.0 L (6-13) BUN 25 H (6-20) mg/dL Creatinine 0.7 (0.4-1.0) mg/dL Estimated GFR (MDRD) 82 L (>89) Glucose 101 H (70-100) mg/dL Calcium 7.5 L (8.5-10.3) mg/dL Phosphorus 3.5 (2.5-4.6) mg/dL Magnesium 2.0 (1.7-2.8) mg/dL Total Bilirubin 0.5 (0.2-1.0) mg/dL AST 15 (10-42) IU/L ALT < 10 L (10-60) IU/L Alkaline Phosphatase 52 (42-121) IU/L Total Protein 4.4 L (6.7-8.2) g/dL Albumin 1.8 L (3.2-5.5) g/dL Globulin 2.6 (2.1-4.2) g/dL Albumin/Globulin Ratio 0.7 L (1.0-2.2) Urine Color DARK YELLOW Urine Clarity HAZY (CLEAR) Urine pH 6.5 (5.0-7.5) PH Ur Specific [place] 1.020 (1.002-1.030) Urine Protein 30 H (NEGATIVE) mg/dL Urine Glucose (UA) NEGATIVE (NEGATIVE) mg/dL Urine Ketones NEGATIVE (NEGATIVE) mg/dL Urine Occult Blood LARGE H (NEGATIVE) Urine Nitrite NEGATIVE (NEGATIVE) Urine Bilirubin NEGATIVE (NEGATIVE) Urine Urobilinogen 0.2 (NORMAL) (NORMAL) E.U./dL Ur Leukocyte Esterase NEGATIVE (NEGATIVE) Urine RBC 11-25 H (0-5) /HPF Urine WBC 0-3 (0-5) /HPF Ur Squamous Epith Cells FEW Squamous (<= Few) Urine Bacteria Moderate H (None Seen) /HPF Urine Yeast PRESENT Ur Microscopic Review INDICATED Urine Culture Comments NOT INDICATED Blood Type Antibody Screen Crossmatch IS Only 11/14/22 11/14/22 11/14/22 Range/Units 09:30 09:30 09:30 WBC 10.4 (4.8-10.8) x10^3/uL RBC 2.45 L (4.20-5.40) 10^6/uL Hgb 7.2 L (12.0-16.0) g/dL Hct 21.9 L (37.0-47.0) % MCV 89.4 (81.0-99.0) fL MCH 29.4 (27.0-31.0) pg MCHC 32.9 (32.0-36.0) g/dL RDW 17.1 H (12.0-15.0) % Plt Count 266 (130-450) 10^3/uL MPV 9.0 (7.9-10.8) fL Neut # (Auto) 7.5 H (1.5-6.6) 10^3/uL Lymph # (Auto) 1.9 (1.5-3.5) 10^3/uL [place] # (Auto) 0.7 (0.0-1.0) 10^3/uL Eos # (Auto) 0.2 (0.0-0.7) 10^3/uL Baso # (Auto) 0.1 (0.0-0.1) 10^3/uL Absolute Nucleated RBC 0.03 x10^3/uL Nucleated RBC % 0.3 /100WBC VBG pH 7.451 H (7.31-7.41) Ionized Calcium 1.06 L (1.15-1.33) mmol/L Sodium 138 (135-145) mmol/L Potassium 4.0 (3.5-5.0) mmol/L Chloride 107 (101-111) mmol/L Carbon Dioxide 28 (21-32) mmol/L Anion Gap 3.0 L (6-13) BUN 36 H (6-20) mg/dL Creatinine 0.8 (0.4-1.0) mg/dL Estimated GFR (MDRD) 71 L (>89) Glucose 119 H (70-100) mg/dL Calcium 7.4 L (8.5-10.3) mg/dL Phosphorus (2.5-4.6) mg/dL Magnesium (1.7-2.8) mg/dL Total Bilirubin 0.4 (0.2-1.0) mg/dL AST 14 (10-42) IU/L ALT < 10 L (10-60) IU/L Alkaline Phosphatase 46 (42-121) IU/L Total Protein 4.3 L (6.7-8.2) g/dL Albumin 1.9 L (3.2-5.5) g/dL Globulin 2.4 (2.1-4.2) g/dL Albumin/Globulin Ratio 0.8 L (1.0-2.2) Urine Color Urine Clarity (CLEAR) Urine pH (5.0-7.5) PH Ur Specific [place] (1.002-1.030) Urine Protein (NEGATIVE) mg/dL Urine Glucose (UA) (NEGATIVE) mg/dL Urine Ketones (NEGATIVE) mg/dL Urine Occult Blood (NEGATIVE) Urine Nitrite (NEGATIVE) Urine Bilirubin (NEGATIVE) Urine Urobilinogen (NORMAL) E.U./dL Ur Leukocyte Esterase (NEGATIVE) Urine RBC (0-5) /HPF Urine WBC (0-5) /HPF Ur Squamous Epith Cells (<= Few) Urine Bacteria (None Seen) /HPF Urine Yeast Ur Microscopic Review Urine Culture Comments Blood Type Antibody Screen Crossmatch IS Only 11/12/22 Range/Units 17:24 WBC (4.8-10.8) x10^3/uL RBC (4.20-5.40) 10^6/uL Hgb (12.0-16.0) g/dL Hct (37.0-47.0) % MCV (81.0-99.0) fL MCH (27.0-31.0) pg MCHC (32.0-36.0) g/dL RDW (12.0-15.0) % Plt Count (130-450) 10^3/uL MPV (7.9-10.8) fL Neut # (Auto) (1.5-6.6) 10^3/uL Lymph # (Auto) (1.5-3.5) 10^3/uL [place] # (Auto) (0.0-1.0) 10^3/uL Eos # (Auto) (0.0-0.7) 10^3/uL Baso # (Auto) (0.0-0.1) 10^3/uL Absolute Nucleated RBC x10^3/uL Nucleated RBC % /100WBC VBG pH (7.31-7.41) Ionized Calcium (1.15-1.33) mmol/L Sodium (135-145) mmol/L Potassium (3.5-5.0) mmol/L Chloride (101-111) mmol/L Carbon Dioxide (21-32) mmol/L Anion Gap (6-13) BUN (6-20) mg/dL Creatinine (0.4-1.0) mg/dL Estimated GFR (MDRD) (>89) Glucose (70-100) mg/dL Calcium (8.5-10.3) mg/dL Phosphorus (2.5-4.6) mg/dL Magnesium (1.7-2.8) mg/dL Total Bilirubin (0.2-1.0) mg/dL AST (10-42) IU/L ALT (10-60) IU/L Alkaline Phosphatase (42-121) IU/L Total Protein (6.7-8.2) g/dL Albumin (3.2-5.5) g/dL Globulin (2.1-4.2) g/dL Albumin/Globulin Ratio (1.0-2.2) Urine Color Urine Clarity (CLEAR) Urine pH (5.0-7.5) PH Ur Specific [place] (1.002-1.030) Urine Protein (NEGATIVE) mg/dL Urine Glucose (UA) (NEGATIVE) mg/dL Urine Ketones (NEGATIVE) mg/dL Urine Occult Blood (NEGATIVE) Urine Nitrite (NEGATIVE) Urine Bilirubin (NEGATIVE) Urine Urobilinogen (NORMAL) E.U./dL Ur Leukocyte Esterase (NEGATIVE) Urine RBC (0-5) /HPF Urine WBC (0-5) /HPF Ur Squamous Epith Cells (<= Few) Urine Bacteria (None Seen) /HPF Urine Yeast Ur Microscopic Review Urine Culture Comments Blood Type O POSITIVE Antibody Screen NEGATIVE Crossmatch IS Only See Detail - Current Medications Current Medications: Current Medications Generic Name Dose Route Start Last Admin Trade Name Freq PRN Reason Stop Dose Admin Acetaminophen 650 mg 11/12/22 21:38 11/14/22 09:12 Acetaminophen 325 Mg Tablet PO 650 mg Q4HR PRN Administration Pain 1 to 4, or Fever Atorvastatin Calcium 20 mg 11/13/22 21:00 11/14/22 22:21 Atorvastatin 10 Mg Tablet PO 20 mg HS MINDI Administration Calcium Carbonate/Glycine 500 mg 11/14/22 21:00 11/15/22 08:24 Calcium Carbonate Chew 500 Mg Tablet PO 500 mg BID MINDI Administration Cholecalciferol 50 mcg 11/14/22 17:00 11/15/22 08:25 Cholecalciferol 25 Mcg Tablet PO 50 mcg DAILY MINDI Administration Escitalopram Oxalate 20 mg 11/13/22 09:00 11/15/22 08:24 Escitalopram 10 Mg Tablet PO 20 mg DAILY MINDI Administration Ferrous Sulfate 325 mg 11/14/22 17:00 11/15/22 08:24 Ferrous Sulfate 325 Mg Tablet PO 325 mg BIDWM MINDI Administration Cefepime HCl 2 gm/ Sodium 100 mls @ 200 mls/hr 11/13/22 09:00 11/15/22 08:24 Chloride IV 200 mls/hr BID MINDI Administration Sodium Chloride 500 mls @ 20 mls/hr 11/13/22 22:01 11/14/22 01:58 Normal Saline 0.9% IV 20 mls/hr Q24H PRN Administration TKO RATE Morphine Sulfate 2 mg 11/14/22 10:45 11/14/22 10:51 Morphine 2 Mg/Ml Carpuject IVP 2 mg Q2HR PRN Administration Severe Pain (Level 7-10) Multi-Ingredient Ointment 1 applic 11/13/22 04:50 11/14/22 10:35 Zinc Oxide 20% Oint 30 Gm Tube TOP 1 applic PRN PRN Administration Skin Care Ondansetron HCl 4 mg 11/12/22 23:59 11/13/22 04:01 Ondansetron 4 Mg/2 Ml Vial IVP 4 mg Q6HR PRN Administration Nausea / Vomiting Pantoprazole Sodium 40 mg 11/14/22 08:00 11/15/22 08:25 Pantoprazole 40 Mg Vial IV 40 mg Q12H MINDI Administration Sodium Chloride 10 ml 11/13/22 01:00 11/15/22 08:25 Sodium Chloride Flush 0.9% 10 Ml Syringe IVP 10 ml 0100,0900,1700 MINDI Administration Sodium Chloride 10 ml 11/12/22 21:38 11/14/22 01:58 Sodium Chloride Flush 0.9% 10 Ml Syringe IVP 20 ml PRN PRN Administration NEEDED PER PROVIDER ORDERS Sucralfate 1 gm 11/13/22 11:00 11/15/22 06:09 Sucralfate 1 Gm/10 Ml Udc PO 1 gm 0700,1100,1600,2200 MINDI Administration Tramadol HCl 50 mg 11/14/22 10:45 11/14/22 19:19 Tramadol 50 Mg Tablet PO 50 mg Q4HR PRN Administration Moderate Pain (Level 4-6) - Physical Exam General Appearance: positive: Mild distress (due to anxiety), Anxious Eyes Bilateral: positive: Normal inspection ENT: positive: No signs of dehydration Neck: positive: Trachea midline Respiratory: positive: No respiratory distress Cardiovascular: positive: Regular rate & rhythm Abdomen: positive: Non-tender. negative: Guarding, Rebound Skin: positive: No rash Neurologic/Psychiatric: positive: Oriented x3 Impression/Plan - Problem List Problem List: 1. acute GI bleed, jesus ulcer - EGD 11/13 with biopsy and epi injection into non bleeding ulcers that demonstrated stigmata of recent bleeding (adherent clot) - tolerating diet - HD stable, tachycardia has resolved; color improved this AM. 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 I would recommend repeat EGD in 12 mo to follow Coleman's and lifelong PPI therapy to reduce risk of esophageal ca. - ok to adat and discharge from surgery standpoint 2. ABLA, stable - s/p transfustion of 4 units pRBC's, 1 unit FFP, hgb now stable for 24 hours - if patient symptomatic with hgb 7 (orthostasis), she may need one more unit pRBC's 2. 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 Patient was scheduled to meet with ID as outpatient on (11/14) - recommend continue current abx, consideration of ortho/ID consultation while hospitalized 3. hpl, depression, anxiety, osteoporosis - as per primary team Thank you for consulting me in the care of this patient! We will follow peripherally.
[2022-11-15] MEDS: traMADol 50 MG TABLET PO PRN ×2 (08:41→23:57)
[2022-11-15 08:54] LABS: HCT - HEMATOCRIT 22.7 % (37.0-47.0); HGB - HEMOGLOBIN 7.2 g/dL (12.0-16.0); MEAN CORPUSCULAR HEMOGLOBIN 28.6 pg (27.0-31.0); MEAN CORPUSCULAR HGB CONC 31.7 g/dL (32.0-36.0); MEAN CORPUSCULAR VOLUME 90.1 fL (81.0-99.0); RED BLOOD COUNT 2.52 10^6/uL (4.20-5.40); RED CELL DISTRIBUTION WIDTH 17.8 % (12.0-15.0); WHITE BLOOD COUNT 10.2 x10^3/uL (4.8-10.8)
[2022-11-15] MEDS ORDERED: CYCLOBENZAPRINE 10 MG TABLET PO PRN (12:13)
[2022-11-15] MEDS ORDERED: LORazepam 1 MG TABLET PO PRN (14:26)
--- NOTE | 2022-11-15 14:33 | PROVIDER PROGRESS NOTE ---
Assessment/Plan - Problem List (1) UGIB (upper gastrointestinal bleed) Assessment/Plan: - Problem List (1) UGIB (upper gastrointestinal bleed) Assessment/Plan: Assessment/Plan: Conclusion/Plan: NPO except sips and ice chips Possible NSAID induced gastritis and ulcer IV protonbix bid Surgery consulted by ER Plan fopr EGD in am Transfuse if Hb < 7 Verbal consent obtained for blood transfusion Per general surgery post EGD this a.m.: Non bleeding jesus's ulcers identified on EGD. Epi injected, biopsies taken. Plan to continue to monitor Hgb, treat with PPI and carafate prn epigastric pain. If patient rebleeds, I would plan to repeat EGD. November 14, 2022-patient progressing diet as tolerated -Patient did get 1 unit PRBC transfusion along with FFP transfusion today November 15, 2022-patient tolerating progressing diet. Sure hemoglobin hematocrit is stable. Talk to general surgery who is signing off at this time. Anticipate transfer to [facility] tomorrow (3) Depression Conclusion/Plan: Continue Lexapro in good spirits no SI or Hi (5) History of hip surgery Conclusion/Plan: Tylenol or moprhine prn pain Hold NSAIDS PT to work with patient -Patient on IV cefepime 2 g every 12 hours for postop hip surgery infection - Current Meds Current Meds: Current Medications Generic Name Dose Route Start Last Admin Trade Name Freq PRN Reason Stop Dose Admin Acetaminophen 650 mg 11/12/22 21:38 11/14/22 09:12 Acetaminophen 325 Mg Tablet PO 650 mg Q4HR PRN Administration Pain 1 to 4, or Fever Atorvastatin Calcium 20 mg 11/13/22 21:00 11/14/22 22:21 Atorvastatin 10 Mg Tablet PO 20 mg HS MINDI Administration Calcium Carbonate/Glycine 500 mg 11/14/22 21:00 11/15/22 08:24 Calcium Carbonate Chew 500 Mg Tablet PO 500 mg BID MINDI Administration Cholecalciferol 50 mcg 11/14/22 17:00 11/15/22 08:25 Cholecalciferol 25 Mcg Tablet PO 50 mcg DAILY MINDI Administration Escitalopram Oxalate 20 mg 11/13/22 09:00 11/15/22 08:24 Escitalopram 10 Mg Tablet PO 20 mg DAILY MINDI Administration Ferrous Sulfate 325 mg 11/14/22 17:00 11/15/22 08:24 Ferrous Sulfate 325 Mg Tablet PO 325 mg BIDWM MINDI Administration Cefepime HCl 2 gm/ Sodium 100 mls @ 200 mls/hr 11/13/22 09:00 11/15/22 09:00 Chloride IV Infused BID MINDI Infusion Sodium Chloride 500 mls @ 20 mls/hr 11/13/22 22:01 11/14/22 01:58 Normal Saline 0.9% IV 20 mls/hr Q24H PRN Administration TKO RATE Morphine Sulfate 2 mg 11/14/22 10:45 11/14/22 10:51 Morphine 2 Mg/Ml Carpuject IVP 2 mg Q2HR PRN Administration Severe Pain (Level 7-10) Multi-Ingredient Ointment 1 applic 11/13/22 04:50 11/14/22 10:35 Zinc Oxide 20% Oint 30 Gm Tube TOP 1 applic PRN PRN Administration Skin Care Ondansetron HCl 4 mg 11/12/22 23:59 11/13/22 04:01 Ondansetron 4 Mg/2 Ml Vial IVP 4 mg Q6HR PRN Administration Nausea / Vomiting Pantoprazole Sodium 40 mg 11/14/22 08:00 11/15/22 08:25 Pantoprazole 40 Mg Vial IV 40 mg Q12H MINDI Administration Sodium Chloride 10 ml 11/13/22 01:00 11/15/22 08:25 Sodium Chloride Flush 0.9% 10 Ml Syringe IVP 10 ml 0100,0900,1700 MINDI Administration Sodium Chloride 10 ml 11/12/22 21:38 11/14/22 01:58 Sodium Chloride Flush 0.9% 10 Ml Syringe IVP 20 ml PRN PRN Administration NEEDED PER PROVIDER ORDERS Sucralfate 1 gm 11/13/22 11:00 11/15/22 13:17 Sucralfate 1 Gm/10 Ml Udc PO 1 gm 0700,1100,1600,2200 MINDI Administration Tramadol HCl 50 mg 11/14/22 10:45 11/15/22 08:41 Tramadol 50 Mg Tablet PO 50 mg Q4HR PRN Administration Moderate Pain (Level 4-6) - Lab Result Fish Bone Diagrams: 11/15/22 08:47 11/15/22 06:00 - Additional Planning My Orders: My Active Orders 11/14/22 17:00 Cholecalciferol [Vitamin D3] 50 mcg PO DAILY Ferrous Sulfate [Feosol] 325 mg PO BIDWM 11/14/22 21:00 Calcium Carbonate [Tums] 500 mg PO BID 11/15/22 Evaluate and Treat PT [PT] Routine 11/15/22 12:12 Wound Care - MAC [RC] .ONCE 11/15/22 12:13 Cyclobenzaprine [Flexeril] 5 mg PO TID PRN 11/15/22 14:26 LORazepam [Ativan] 1 mg PO Q6H PRN 11/16/22 05:00 CBC - COMP BLD CT W/AUTO DIFF [HEME] DAILYLAB COMPREHENSIVE METABOLIC PANEL [CHEM] DAILYLAB 11/17/22 05:00 CBC - COMP BLD CT W/AUTO DIFF [HEME] DAILYLAB COMPREHENSIVE METABOLIC PANEL [CHEM] DAILYLAB 11/18/22 05:00 CBC - COMP BLD CT W/AUTO DIFF [HEME] DAILYLAB COMPREHENSIVE METABOLIC PANEL [CHEM] DAILYLAB 11/19/22 05:00 CBC - COMP BLD CT W/AUTO DIFF [HEME] DAILYLAB COMPREHENSIVE METABOLIC PANEL [CHEM] DAILYLAB 11/20/22 05:00 CBC - COMP BLD CT W/AUTO DIFF [HEME] DAILYLAB COMPREHENSIVE METABOLIC PANEL [CHEM] DAILYLAB Subjective - Subjective Patient Reports: Feeling Better Objective Vital Signs: Vital Signs - 24 hr 11/14/22 11/14/22 11/14/22 15:00 16:00 20:00 Temperature 36.6 C Heart Rate [ 86 Brachial] Heart Rate [ 82 79 Monitoring electrodes] Respiratory 15 17 20 Rate Blood Pressure 116/60 109/66 112/52 L [Left Brachial artery] O2 Saturation 97 99 97 11/14/22 11/15/22 11/15/22 23:29 05:48 08:11 Temperature 36.7 C 36.4 C L 36.4 C L Heart Rate [ 86 88 84 Brachial] Heart Rate [ Monitoring electrodes] Respiratory 18 18 18 Rate Blood Pressure 112/58 L 114/63 99/56 L [Left Brachial artery] O2 Saturation 98 95 96 11/15/22 12:23 Temperature 36.5 C Heart Rate [ 81 Brachial] Heart Rate [ Monitoring electrodes] Respiratory 18 Rate Blood Pressure 124/61 [Left Brachial artery] O2 Saturation 96 Oxygen O2 Source [With Activity] Room air O2 Source [Without Activity] Room air O2 Source Room air I&O (Last 24 Hrs): Intake and Output Totals x24h 11/13/22 11/14/22 11/15/22 23:59 23:59 23:59 Intake Total 4625.167 4117.5 490 Output Total 100 0 1000 Balance 4525.167 4117.5 -510 General: Alert, Oriented x3, Cooperative Neck: Supple Neuro: Alert Cardiovascular: Regular rate, Normal S1, Normal S2 Respiratory: Breath sounds nml Abdomen: Normal bowel sounds, Soft Skin: No rashes - Results Results: Laboratory Results WBC 10.2 x10^3/uL (4.8-10.8) 11/15/22 08:47 RBC 2.52 10^6/uL (4.20-5.40) L 11/15/22 08:47 Hgb 7.2 g/dL (12.0-16.0) L 11/15/22 08:47 Hct 22.7 % (37.0-47.0) L 11/15/22 08:47 MCV 90.1 fL (81.0-99.0) 11/15/22 08:47 MCH 28.6 pg (27.0-31.0) 11/15/22 08:47 MCHC 31.7 g/dL (32.0-36.0) L 11/15/22 08:47 RDW 17.8 % (12.0-15.0) H 11/15/22 08:47 Plt Count 250 10^3/uL (130-450) 11/15/22 08:47 MPV 9.0 fL (7.9-10.8) 11/15/22 08:47 Neut # (Auto) 7.5 10^3/uL (1.5-6.6) H 11/14/22 09:30 Lymph # (Auto) 1.9 10^3/uL (1.5-3.5) 11/14/22 09:30 Dane # (Auto) 0.7 10^3/uL (0.0-1.0) 11/14/22 09:30 Eos # (Auto) 0.2 10^3/uL (0.0-0.7) 11/14/22 09:30 Baso # (Auto) 0.1 10^3/uL (0.0-0.1) 11/14/22 09:30 Absolute Nucleated RBC 0.03 x10^3/uL 11/14/22 09:30 Total Counted 100 11/13/22 14:24 Band Neuts % (Manual) 2 % (0-10) 11/13/22 14:24 Reactive Lymphs % (Man) 2 % 11/13/22 14:24 Abnorm Lymph % (Manual) 0 % 11/13/22 14:24 Myelocytes % 1 % (-0) H 11/13/22 14:24 Nucleated RBC % 0.3 /100WBC 11/14/22 09:30 Neutrophils # (Manual) 19.1 10^3/uL (1.5-6.6) H 11/13/22 14:24 Lymphocytes # (Manual) 1.7 10^3/uL (1.5-3.5) 11/13/22 14:24 Monocytes # (Manual) 0.7 10^3/uL (0.0-1.0) 11/13/22 14:24 Eosinophils # (Manual) 0.0 10^3/uL (0-0.7) 11/13/22 14:24 Basophils # (Manual) 0.0 10^3/uL (0-0.1) 11/13/22 14:24 Nucleated RBCs 1 % 11/13/22 14:24 Differential Comment MANUAL DIFFERENTIAL 11/13/22 14:24 Manual Slide Review Indicated 11/13/22 14:24 WBC Morphology NORMAL APPEARANCE (NORMAL) 11/13/22 04:34 Platelet Estimate INCREASED (>450,000) (NORMAL) 11/13/22 04:34 Platelet Morphology NORMAL APPEARANCE (NORMAL) 11/13/22 04:34 RBC Morph Micro Appear 3+ ANISOCYTOSIS (NORMAL) 3+ HYPOCHROMASIA (NORMAL) 11/13/22 14:24 RBC Morph Micro Appear 3+ ANISOCYTOSIS (NORMAL) 3+ HYPOCHROMASIA (NORMAL) 11/13/22 14:24 PT 15.5 secs (9.9-12.6) H 11/12/22 21:05 INR 1.4 (0.8-1.2) H 11/12/22 21:05 APTT 30.2 secs (24.9-33.3) 11/12/22 21:05 VBG pH 7.433 (7.31-7.41) H 11/15/22 06:00 Ionized Calcium 1.11 mmol/L (1.15-1.33) L 11/15/22 06:00 Sodium 136 mmol/L (135-145) 11/15/22 06:00 Potassium 3.6 mmol/L (3.5-5.0) 11/15/22 06:00 Chloride 106 mmol/L (101-111) 11/15/22 06:00 Carbon Dioxide 26 mmol/L (21-32) 11/15/22 06:00 Anion Gap 4.0 (6-13) L 11/15/22 06:00 BUN 25 mg/dL (6-20) H 11/15/22 06:00 Creatinine 0.7 mg/dL (0.4-1.0) 11/15/22 06:00 Estimated GFR (MDRD) 82 (>89) L 11/15/22 06:00 Glucose 101 mg/dL (70-100) H 11/15/22 06:00 Calcium 7.5 mg/dL (8.5-10.3) L 11/15/22 06:00 Phosphorus 3.5 mg/dL (2.5-4.6) 11/15/22 06:00 Magnesium 2.0 mg/dL (1.7-2.8) 11/15/22 06:00 Total Bilirubin 0.5 mg/dL (0.2-1.0) 11/15/22 06:00 AST 15 IU/L (10-42) 11/15/22 06:00 ALT < 10 IU/L (10-60) L 11/15/22 06:00 Alkaline Phosphatase 52 IU/L (42-121) 11/15/22 06:00 Total Protein 4.4 g/dL (6.7-8.2) L 11/15/22 06:00 Albumin 1.8 g/dL (3.2-5.5) L 11/15/22 06:00 Globulin 2.6 g/dL (2.1-4.2) 11/15/22 06:00 Albumin/Globulin Ratio 0.7 (1.0-2.2) L 11/15/22 06:00 Lipase 21 U/L (22-51) L 11/12/22 17:22 Urine Color DARK YELLOW 11/14/22 16:36 Urine Clarity HAZY (CLEAR) 11/14/22 16:36 Urine pH 6.5 PH (5.0-7.5) 11/14/22 16:36 Ur Specific [place] 1.020 (1.002-1.030) 11/14/22 16:36 Urine Protein 30 mg/dL (NEGATIVE) H 11/14/22 16:36 Urine Glucose (UA) NEGATIVE mg/dL (NEGATIVE) 11/14/22 16:36 Urine Ketones NEGATIVE mg/dL (NEGATIVE) 11/14/22 16:36 Urine Occult Blood LARGE (NEGATIVE) H 11/14/22 16:36 Urine Nitrite NEGATIVE (NEGATIVE) 11/14/22 16:36 Urine Bilirubin NEGATIVE (NEGATIVE) 11/14/22 16:36 Urine Urobilinogen 0.2 (NORMAL) E.U./dL (NORMAL) 11/14/22 16:36 Ur Leukocyte Esterase NEGATIVE (NEGATIVE) 11/14/22 16:36 Urine RBC 11-25 /HPF (0-5) H 11/14/22 16:36 Urine WBC 0-3 /HPF (0-5) 11/14/22 16:36 Ur Squamous Epith Cells FEW Squamous (<= Few) 11/14/22 16:36 Urine Bacteria Moderate /HPF (None Seen) H 11/14/22 16:36 Urine Yeast PRESENT 11/14/22 16:36 Ur Microscopic Review INDICATED 11/14/22 16:36 Urine Culture Comments NOT INDICATED 11/14/22 16:36 Nasal Adenovirus (PCR) NOT DETECTED 11/12/22 17:46 Nasal B. parapertussis DNA (PCR) NOT DETECTED 11/12/22 17:46 Nasal Coronavir 229E PCR NOT DETECTED 11/12/22 17:46 Nasal Coronavir HKU1 PCR NOT DETECTED 11/12/22 17:46 Nasal Coronavir NL63 PCR NOT DETECTED 11/12/22 17:46 Nasal Coronavir OC43 PCR NOT DETECTED 11/12/22 17:46 Nasal Enterovir/Rhinovir PCR NOT DETECTED 11/12/22 17:46 Nasal Influenza B PCR NOT DETECTED 11/12/22 17:46 Nasal Influenza A PCR NOT DETECTED 11/12/22 17:46 Nasal Parainfluen 1 PCR NOT DETECTED 11/12/22 17:46 Nasal Parainfluen 2 PCR NOT DETECTED 11/12/22 17:46 Nasal Parainfluen 3 PCR NOT DETECTED 11/12/22 17:46 Nasal Parainfluen 4 PCR NOT DETECTED 11/12/22 17:46 Nasal RSV (PCR) NOT DETECTED 11/12/22 17:46 Nasal Screen MRSA (PCR) NEGATIVE (NEGATIVE) 11/12/22 23:15 Nasal B.pertussis DNA PCR NOT DETECTED 11/12/22 17:46 Nasal C.pneumoniae (PCR) NOT DETECTED 11/12/22 17:46 [place] Human Metapneumo PCR NOT DETECTED 11/12/22 17:46 Nasal M.pneumoniae (PCR) NOT DETECTED 11/12/22 17:46 Nasal SARS-CoV-2 (PCR) NOT DETECTED 11/12/22 17:46 Gastric Fluid pH TNP 11/12/22 18:48 Gastric Occult Blood POSITIVE (Negative) A 11/12/22 18:48 Blood Type O POSITIVE 11/12/22 17:24 Blood Type Recheck O POSITIVE 11/12/22 18:58 Antibody Screen NEGATIVE 11/12/22 17:24 Crossmatch IS Only See Detail 11/12/22 17:24 - Procedures Procedures: Procedures EXCISION OF RECTUM, ENDO, DIAGN (09/08/21) INSPECTION OF LOWER INTESTINAL TRACT, ENDO (04/19/16) TOTAL KNEE REPLACEMENT (08/03/14) Sepsis Event Note (H) - Evaluation Current Stage of Sepsis: Ruled out ABX Reporting Has patient been on IV antibiotics over the past 48 hours?: Yes
[2022-11-15] MEDS: ATORVASTATIN 10 MG TABLET PO SCH (20:21)
[2022-11-16] MEDS: SODIUM CHLORIDE FLUSH 0.9% 10 ML SYRINGE IVP SCH ×2 (01:00→09:35)
[2022-11-16] MEDS: SUCRALFATE 1 GM/10 ML UDC PO SCH ×2 (06:03→11:13)
[2022-11-16 06:38] LABS: BASOPHILS % (AUTO) 0.4 %; EOSINOPHILS # (AUTO) 0.4 10^3/uL (0.0-0.7); EOSINOPHILS % (AUTO) 4.7 %; HCT - HEMATOCRIT 23.4 % (37.0-47.0); HGB - HEMOGLOBIN 7.2 g/dL (12.0-16.0); LYMPHOCYTES # (AUTO) 1.5 10^3/uL (1.5-3.5); LYMPHOCYTES % (AUTO) 17.8 %; MEAN CORPUSCULAR HEMOGLOBIN 28.3 pg (27.0-31.0); MEAN CORPUSCULAR HGB CONC 30.8 g/dL (32.0-36.0); MEAN CORPUSCULAR VOLUME 92.1 fL (81.0-99.0); MEAN PLATELET VOLUME 9.5 fL (7.9-10.8); MONOCYTES # (AUTO) 0.5 10^3/uL (0.0-1.0); MONOCYTES % (AUTO) 5.7 %; NEUTROPHILS % (AUTO) 70.6 %; PLT - PLATELET COUNT 264 10^3/uL (130-450); RED BLOOD COUNT 2.54 10^6/uL (4.20-5.40); RED CELL DISTRIBUTION WIDTH 18.2 % (12.0-15.0); WHITE BLOOD COUNT 8.4 x10^3/uL (4.8-10.8)
[2022-11-16 06:52] LABS: ALBUMIN/GLOBULIN RATIO 0.8 (1.0-2.2); ALKALINE PHOSPHATASE 68 IU/L (42-121); ALT ALANINE AMINOTRANSFERASE < 10 IU/L (10-60); AST ASPARTATE AMINOTRANSFERASE 14 IU/L (10-42); BILIRUBIN,TOTAL 0.4 mg/dL (0.2-1.0); BUN - BLOOD UREA NITROGEN 15 mg/dL (6-20); CALCIUM 7.8 mg/dL (8.5-10.3); CARBON DIOXIDE - CO2 29 mmol/L (21-32); CHLORIDE 105 mmol/L (101-111); CREATININE 0.7 mg/dL (0.4-1.0); GFR - MDRD 82 (>89); GLUCOSE 100 mg/dL (70-100); MAGNESIUM 1.8 mg/dL (1.7-2.8); PHOSPHORUS 3.7 mg/dL (2.5-4.6); POTASSIUM 3.4 mmol/L (3.5-5.0); SODIUM 140 mmol/L (135-145); TOTAL PROTEIN 4.6 g/dL (6.7-8.2)
[2022-11-16] MEDS ORDERED: POTASSIUM CHLORIDE 20 MEQ TABLET PO ONE (07:22)
[2022-11-16] MEDS: CHOLECALCIFEROL 25 MCG TABLET PO SCH (09:33)
[2022-11-16] MEDS: ACETAMINOPHEN 325 MG TABLET PO PRN (09:33)
[2022-11-16] MEDS: CALCIUM CARBONATE CHEW 500 MG TABLET PO SCH (09:34)
[2022-11-16] MEDS: FERROUS SULFATE 325 MG TABLET PO SCH (09:34)
[2022-11-16] MEDS: ESCITALOPRAM 10 MG TABLET PO SCH (09:34)
[2022-11-16] MEDS: CEFEPIME 2 GM in SODIUM CHLORIDE 0.9% MINIBAG 100 ML IV SCH (09:35)
[2022-11-16] MEDS: PANTOPRAZOLE 40 MG VIAL IV SCH (09:43)
--- NOTE | 2022-11-16 10:17 | Discharge Plan ---
"Discharge Plan for SNF / [facility] - Discharge Plan And Transition Orders Problem Reviewed?: Yes Disposition: 03 SNF DC/Xfer Condition: Good Allergies and Adverse Reactions: Allergies Allergy/AdvReac Type Severity Reaction Status Date / Time NSAIDS (Non-Steroidal AdvReac Cramps Verified 11/13/22 14:16 Anti-Inflamma Plan of Treatment: Patient is to continue with IV cefepime which she was on for left hip wound infection while she was at [facility] this was continued. She was sent to [facility] for upper GI bleed which is stabilized and no active bleeding at this time. Assessment: Upper GI bleed-secondary to gastric ulcer seen on EGD which at that point during the EGD was nonbleeding - SNF / [facility] Transition Orders Admit to (Facility): [facility] Discharge Diagnosis: Upper GI bleed-resolved Left hip periprosthetic surgical infection Depression and anxiety Medicare Certification Statement: [facility] cert[facility] medically necessary on a continuing basis for any of the conditions for which she/he is receiving care during hospitalization. Notify PCP of admission and forward orders to primary provider for signature. Weight on admission and: Daily Other Notification Orders: Call PCP immediately if patient develops dyspnea, chest pain/tightness or edema. Additional Bowel Program Orders: If no BM after 2 days, nurse may give M.O.M. 30ml PO PRN and/or ducolax Supp 1 MA and/or JIL 250mg P.O., and/or senna 1-2 tabs PO. On day 3 nurse may give repeat above order until residents constipation is resolved. Medication Orders: PLEASE REFER TO THE DISCHARGE MEDICATION LIST. - Medications New Prescriptions: Acetaminophen [Tylenol] 650 mg PO Q4HR PRN #40 tab PRN Reason: Pain 1 to 4, or Fever traMADol [Ultram] 50 mg PO Q4HR PRN #50 tab PRN Reason: Moderate Pain (Level 4-6) LORazepam [Ativan] 1 mg PO Q6H PRN #30 tab PRN Reason: Anxiety Sucralfate [Carafate] 1 gm PO 0700,1100,1600,2200 #120 ea Ferrous Sulfate [Feosol] 325 mg PO BIDWM #60 tab Cyclobenzaprine [Flexeril] 5 mg PO TID PRN #30 tab PRN Reason: Spasms Escitalopram Oxalate [Lexapro] 20 mg PO DAILY #30 tab Calcium Carbonate [Tums (Calcium Carbonate 500mg)] 500 mg PO BID #40 tab Cholecalciferol [Vitamin D3] 50 mcg PO DAILY #30 tab - Diet Type: Geriatric Liquids: Thin May have monthly special meal: Yes - Therapies | Activity Therapy: Evaluation | Treat if indicated: PT, OT Rehabilitation Potential: Maximize functional status Activity: Activity as Tolerated Assistance Devices: Walker Follow Up: As previously scheduled"
--- NOTE | 2022-11-16 10:40 | DISCHARGE SUMMARY ---
"Discharge Summary Admit Date: 11/12/22 Code Status: Attempt Resuscitation Condition at Discharge: Good Discharge Disposition: SNF DC/Xfer Discharge Facility Name: [facility] - DIAGNOSES Admission Diagnoses: Upper GI bleed Discharge Diagnoses with Status of Each Condition: Upper GI bleed resolved had EGD done per general surgery which revealed nonbleeding Fercho ulcer identified on EGD epi was injected biopsies taken. She was on PPI and Carafate as needed epigastric pain. - HPI History of Present Illness: - Problem List (1) UGIB (upper gastrointestinal bleed) Assessment/Plan: Assessment/Plan: Conclusion/Plan: NPO except sips and ice chips Possible NSAID induced gastritis and ulcer IV protonbix bid Surgery consulted by ER Plan fopr EGD in am Transfuse if Hb < 7 Verbal consent obtained for blood transfusion Per general surgery post EGD this a.m.: Non bleeding fercho's ulcers identified on EGD. Epi injected, biopsies taken. Plan to continue to monitor Hgb, treat with PPI and carafate prn epigastric pain. If patient rebleeds, I would plan to repeat EGD. November 14, 2022-patient progressing diet as tolerated -Patient did get 1 unit PRBC transfusion along with FFP transfusion today November 15, 2022-patient tolerating progressing diet. Sure hemoglobin hematocrit is stable. Talk to general surgery who is signing off at this time. Anticipate transfer to [facility] tomorrow (3) Depression Conclusion/Plan: Continue Lexapro in good spirits no SI or Hi (5) History of hip surgery Conclusion/Plan: Tylenol or moprhine prn pain Hold NSAIDS PT to work with patient -Patient on IV cefepime 2 g every 12 hours for postop hip surgery infection - CONSULTS | PROCEDURES Consultations: General surgery - HOSPITAL COURSE Hospital Course: See HPI - ALLERGIES Allergies/Adverse Reactions: Allergies Allergy/AdvReac Type Severity Reaction Status Date / Time NSAIDS (Non-Steroidal AdvReac Cramps Verified 11/13/22 14:16 Anti-Inflamma - MEDICATIONS Home Medications: Ambulatory Orders Medication Instructions Recorded Confirmed Atorvastatin [Lipitor] 20 mg PO HS 09/08/21 11/13/22 Acetaminophen [Tylenol] 650 mg PO Q6H PRN 10/26/22 11/13/22 Aspirin [[place] Aspirin] 81 mg PO DAILY 10/26/22 11/13/22 Cetirizine HCl [Allergy] 10 mg PO DAILY 10/26/22 11/13/22 Solifenacin Succinate 10 mg PO DAILY 10/26/22 11/13/22 Docusate Sodium [Dulcolax Stool 100 mg PO BID PRN 10/27/22 11/13/22 Softener] polyethylene glycoL 3350 [Miralax] 17 gm PO DAILY PRN 10/27/22 11/13/22 Acetaminophen [Tylenol] 650 mg PO Q4HR PRN #40 tab 11/16/22 Calcium Carbonate [Tums (Calcium 500 mg PO BID #40 tab 11/16/22 Carbonate 500mg)] Cefepime 2 gm IV BID ml 11/16/22 Cholecalciferol [Vitamin D3] 50 mcg PO DAILY #30 tab 11/16/22 Cyclobenzaprine [Flexeril] 5 mg PO TID PRN #30 tab 11/16/22 Escitalopram Oxalate [Lexapro] 20 mg PO DAILY #30 tab 11/16/22 Ferrous Sulfate [Feosol] 325 mg PO BIDWM #60 tab 11/16/22 LORazepam [Ativan] 1 mg PO Q6H PRN #30 tab 11/16/22 Sucralfate [Carafate] 1 gm PO 0700,1100,1600,2200 #120 ea 11/16/22 Zinc Oxide 20% Oint [Zinc Oxide] 1 applic TOP PRN PRN each 11/16/22 traMADol [Ultram] 50 mg PO Q4HR PRN #50 tab 11/16/22 - PHYSICAL EXAM AT DISCHARGE General Appearance: positive: No acute distress, Alert Neck: positive: Nml inspection Respiratory: positive: Breath sounds nml Cardiovascular: positive: Regular rate & rhythm Abdomen: positive: Non-tender Skin: positive: No rash - LABS Result Diagrams: 11/16/22 06:00 11/16/22 06:00 - SEPSIS Current Stage of Sepsis: Ruled out - FOLLOW UP Follow Up: Will be going back to [facility] - TIME SPENT Time Spent in Discharge (Minutes): 45"
[2022-11-16] MEDS ORDERED: POTASSIUM CHLOR 10 MEQ/100 ML 10 MEQ/100 ML BAG IV ONE (11:00)
[2022-11-16 12:26] VITALS: BP 131/61
== END 2022-11-16 13:20 | DRG 381 ==
LOC: EDUNIT# → ED 16:56 → ICU 21:39 → MS2 11-14 19:49
PROVIDERS: ADMIT Internal Medicine; ATTEND Specialist
PROC: 30233N1 Transfusion of Nonautologous Red Blood Cells into Peripheral Vein, Percutaneous Approach (ICD-10-PCS; 2022-11-12)
PROC: 0DB68ZX Excision of Stomach, Via Natural or Artificial Opening Endoscopic, Diagnostic (ICD-10-PCS; 2022-11-13)
PROC: 0DB58ZX Excision of Esophagus, Via Natural or Artificial Opening Endoscopic, Diagnostic (ICD-10-PCS; 2022-11-13)
PROC: 3E0G8GC Introduction of Other Therapeutic Substance into Upper GI, Via Natural or Artificial Opening Endoscopic (ICD-10-PCS; 2022-11-13)
PROC: 0DB48ZX Excision of Esophagogastric Junction, Via Natural or Artificial Opening Endoscopic, Diagnostic (ICD-10-PCS; principal; 2022-11-13 07:45)
DX: K92.2 Gastrointestinal hemorrhage, unspecified (principal); D64.9 Anemia, unspecified; K22.11 Ulcer of esophagus with bleeding; D62 Acute posthemorrhagic anemia; Z79.82 Long term (current) use of aspirin; Z20.822 Contact with and (suspected) exposure to COVID-19; T39.395A Adverse effect of other nonsteroidal anti-inflammatory drugs [NSAID], initial encounter; K29.61 Other gastritis with bleeding; K44.9 Diaphragmatic hernia without obstruction or gangrene; F32.A Depression, unspecified; Z98.890 Other specified postprocedural states; K21.9 Gastro-esophageal reflux disease without esophagitis; E78.00 Pure hypercholesterolemia, unspecified; R32 Unspecified urinary incontinence; R00.0 Tachycardia, unspecified; Z96.642 Presence of left artificial hip joint; F41.9 Anxiety disorder, unspecified; M81.0 Age-related osteoporosis without current pathological fracture; E66.9 Obesity, unspecified; Z68.36 Body mass index [BMI] 36.0-36.9, adult
CPT/HCPCS: 36415; 74177; 80048; 80053; 81001; 82330; 83690; 83735; 84100; 84132; 85025; 85027; 85610; 85730; 86850; 86900; 86901; 86920; 87150; 87633; 96365; 96375; 97163; 97530; 99284; 99285; A9270; J0330; J1170; J7040; J7120; J8499; P9016; P9017; Q9967; 81003; 85018; 87086

== ENCOUNTER 2022-11-16 13:23 | Outpatient (CLI) | payer MEDICARE, OTHER | END 2022-11-16 23:59 | LOC: EMS 13:23 | PROVIDERS: ATTEND Specialist | DX: K92.2 Gastrointestinal hemorrhage, unspecified (principal); Z74.01 Bed confinement status; Z96.649 Presence of unspecified artificial hip joint | CPT/HCPCS: A0425; A0428 ==

== ENCOUNTER 2022-11-17 08:00 | Outpatient (CLI) | payer MEDICARE, OTHER | END 2022-11-17 23:59 | disposition home or self-care (01) | LOC: LAB.R 08:00 | PROVIDERS: ATTEND Registered Nurse | DX: A04.72 Enterocolitis due to Clostridium difficile, not specified as recurrent (principal) | CPT/HCPCS: 87493 ==

== ENCOUNTER 2022-11-26 09:38 | Outpatient (CLI) | payer MEDICARE, OTHER ==
[2022-11-26 09:46] LABS: BASOPHILS # (AUTO) 0.1 10^3/uL (0.0-0.1); BASOPHILS % (AUTO) 1.6 %; EOSINOPHILS # (AUTO) 0.6 10^3/uL (0.0-0.7); EOSINOPHILS % (AUTO) 10.1 %; HCT - HEMATOCRIT 32.5 % (37.0-47.0); HGB - HEMOGLOBIN 10.2 g/dL (12.0-16.0); LYMPHOCYTES # (AUTO) 1.4 10^3/uL (1.5-3.5); LYMPHOCYTES % (AUTO) 22.2 %; MEAN CORPUSCULAR HEMOGLOBIN 28.8 pg (27.0-31.0); MEAN CORPUSCULAR HGB CONC 31.4 g/dL (32.0-36.0); MEAN CORPUSCULAR VOLUME 91.8 fL (81.0-99.0); MONOCYTES # (AUTO) 0.5 10^3/uL (0.0-1.0); MONOCYTES % (AUTO) 7.3 %; NEUTROPHILS # (AUTO) 3.6 10^3/uL (1.5-6.6); NEUTROPHILS % (AUTO) 58.5 %; PLT - PLATELET COUNT 487 10^3/uL (130-450); RED BLOOD COUNT 3.54 10^6/uL (4.20-5.40); RED CELL DISTRIBUTION WIDTH 16.9 % (12.0-15.0); WHITE BLOOD COUNT 6.2 x10^3/uL (4.8-10.8)
[2022-11-26 10:00] LABS: ALBUMIN/GLOBULIN RATIO 0.6 (1.0-2.2); ALKALINE PHOSPHATASE 98 IU/L (42-121); ALT ALANINE AMINOTRANSFERASE < 10 IU/L (10-60); AST ASPARTATE AMINOTRANSFERASE 16 IU/L (10-42); BILIRUBIN,TOTAL 0.6 mg/dL (0.2-1.0); BUN - BLOOD UREA NITROGEN 10 mg/dL (6-20); CALCIUM 8.3 mg/dL (8.5-10.3); CARBON DIOXIDE - CO2 26 mmol/L (21-32); CHLORIDE 105 mmol/L (101-111); CREATININE 0.8 mg/dL (0.4-1.0); GFR - MDRD 71 (>89); GLUCOSE 137 mg/dL (70-100); POTASSIUM 2.9 mmol/L (3.5-5.0); SODIUM 140 mmol/L (135-145); TOTAL PROTEIN 5.1 g/dL (6.7-8.2)
[2022-11-26 10:03] LABS: CRP - C-REACTIVE PROTEIN < 1.0 mg/dL (0-1.0)
== END 2022-11-26 09:39 | disposition home or self-care (01) ==
LOC: LAB 09:38 → LAB.R 09:39
PROVIDERS: ATTEND Registered Nurse
DX: D62 Acute posthemorrhagic anemia (principal); Z96.642 Presence of left artificial hip joint
CPT/HCPCS: 80053; 85025; 86140

== ENCOUNTER 2022-11-30 13:47 | Outpatient (CLI) | payer MEDICARE, OTHER ==
[2022-11-30 14:04] LABS: BASOPHILS # (AUTO) 0.1 10^3/uL (0.0-0.1); EOSINOPHILS # (AUTO) 1.3 10^3/uL (0.0-0.7); EOSINOPHILS % (AUTO) 16.5 %; HGB - HEMOGLOBIN 9.6 g/dL (12.0-16.0); LYMPHOCYTES # (AUTO) 1.1 10^3/uL (1.5-3.5); LYMPHOCYTES % (AUTO) 14.9 %; MEAN CORPUSCULAR HEMOGLOBIN 28.5 pg (27.0-31.0); MEAN PLATELET VOLUME 10.5 fL (7.9-10.8); MONOCYTES # (AUTO) 0.5 10^3/uL (0.0-1.0); MONOCYTES % (AUTO) 6.7 %; NEUTROPHILS # (AUTO) 4.6 10^3/uL (1.5-6.6); NEUTROPHILS % (AUTO) 60.5 %; PLT - PLATELET COUNT 335 10^3/uL (130-450); RED BLOOD COUNT 3.37 10^6/uL (4.20-5.40); RED CELL DISTRIBUTION WIDTH 16.8 % (12.0-15.0); WHITE BLOOD COUNT 7.6 x10^3/uL (4.8-10.8)
[2022-11-30 14:26] LABS: ALBUMIN/GLOBULIN RATIO 0.6 (1.0-2.2); ALKALINE PHOSPHATASE 91 IU/L (42-121); ALT ALANINE AMINOTRANSFERASE 13 IU/L (10-60); AST ASPARTATE AMINOTRANSFERASE 29 IU/L (10-42); BILIRUBIN,TOTAL 0.3 mg/dL (0.2-1.0); BUN - BLOOD UREA NITROGEN 15 mg/dL (6-20); CALCIUM 8.1 mg/dL (8.5-10.3); CARBON DIOXIDE - CO2 26 mmol/L (21-32); CHLORIDE 105 mmol/L (101-111); CREATININE 1.1 mg/dL (0.4-1.0); GFR - MDRD 49 (>89); GLUCOSE 148 mg/dL (70-100); POTASSIUM 2.7 mmol/L (3.5-5.0); SODIUM 139 mmol/L (135-145); TOTAL PROTEIN 5.1 g/dL (6.7-8.2)
[2022-11-30 14:28] LABS: CRP - C-REACTIVE PROTEIN < 1.0 mg/dL (0-1.0)
== END 2022-11-30 13:48 | disposition home or self-care (01) ==
LOC: LAB.R 13:47
PROVIDERS: ATTEND Registered Nurse
DX: M62.58 Muscle wasting and atrophy, not elsewhere classified, other site (principal); D62 Acute posthemorrhagic anemia; M15.9 Polyosteoarthritis, unspecified
CPT/HCPCS: 80053; 85025; 86140

== ENCOUNTER 2022-12-03 07:38 | Outpatient (CLI) | payer MEDICARE, OTHER ==
[2022-12-03 07:49] LABS: BASOPHILS % (AUTO) 0.7 %; EOSINOPHILS # (AUTO) 1.2 10^3/uL (0.0-0.7); EOSINOPHILS % (AUTO) 21.1 %; HCT - HEMATOCRIT 29.1 % (37.0-47.0); HGB - HEMOGLOBIN 9.4 g/dL (12.0-16.0); LYMPHOCYTES # (AUTO) 1.2 10^3/uL (1.5-3.5); LYMPHOCYTES % (AUTO) 19.9 %; MEAN CORPUSCULAR HGB CONC 32.3 g/dL (32.0-36.0); MEAN CORPUSCULAR VOLUME 89.8 fL (81.0-99.0); MEAN PLATELET VOLUME 10.4 fL (7.9-10.8); MONOCYTES # (AUTO) 0.5 10^3/uL (0.0-1.0); MONOCYTES % (AUTO) 8.6 %; NEUTROPHILS # (AUTO) 2.9 10^3/uL (1.5-6.6); NEUTROPHILS % (AUTO) 49.4 %; PLT - PLATELET COUNT 248 10^3/uL (130-450); RED BLOOD COUNT 3.24 10^6/uL (4.20-5.40); RED CELL DISTRIBUTION WIDTH 16.1 % (12.0-15.0); WHITE BLOOD COUNT 5.8 x10^3/uL (4.8-10.8)
[2022-12-03 08:05] LABS: SLIDE REVIEW? Indicated
[2022-12-03 08:30] LABS: PLATELET ESTIMATE, MANUAL NORMAL (130-450,000) (NORMAL); PLATELET MORPHOLOGY NORMAL APPEARANCE (NORMAL); RBC MORPHOLOGY (MULTIPLE) NORMAL APPEARANCE (NORMAL); WBC MORPHOLOGY (MULTIPLE) NORMAL APPEARANCE (NORMAL)
[2022-12-03 09:40] LABS: ALBUMIN 1.7 g/dL (3.2-5.5); ALBUMIN/GLOBULIN RATIO 0.6 (1.0-2.2); ALKALINE PHOSPHATASE 86 IU/L (42-121); ALT ALANINE AMINOTRANSFERASE < 10 IU/L (10-60); AST ASPARTATE AMINOTRANSFERASE 15 IU/L (10-42); BILIRUBIN,TOTAL 0.6 mg/dL (0.2-1.0); BUN - BLOOD UREA NITROGEN 14 mg/dL (6-20); CALCIUM 8.2 mg/dL (8.5-10.3); CARBON DIOXIDE - CO2 28 mmol/L (21-32); CHLORIDE 106 mmol/L (101-111); CREATININE 0.9 mg/dL (0.4-1.0); GFR - MDRD 62 (>89); GLUCOSE 95 mg/dL (70-100); SODIUM 140 mmol/L (135-145); TOTAL PROTEIN 4.4 g/dL (6.7-8.2)
[2022-12-03 09:41] LABS: CRP - C-REACTIVE PROTEIN < 1.0 mg/dL (0-1.0)
== END 2022-12-03 07:39 | disposition home or self-care (01) ==
LOC: LAB.R 07:38
PROVIDERS: ATTEND Registered Nurse
DX: D64.9 Anemia, unspecified (principal); Z96.642 Presence of left artificial hip joint
CPT/HCPCS: 80053; 85025; 86140

== ENCOUNTER 2022-12-06 08:04 | Outpatient (CLI) | payer MEDICARE, OTHER ==
[2022-12-06 08:12] LABS: BASOPHILS # (AUTO) 0.1 10^3/uL (0.0-0.1); BASOPHILS % (AUTO) 1.1 %; EOSINOPHILS # (AUTO) 0.9 10^3/uL (0.0-0.7); EOSINOPHILS % (AUTO) 21.6 %; HCT - HEMATOCRIT 29.4 % (37.0-47.0); HGB - HEMOGLOBIN 9.2 g/dL (12.0-16.0); LYMPHOCYTES % (AUTO) 23.4 %; MEAN CORPUSCULAR HEMOGLOBIN 28.9 pg (27.0-31.0); MEAN CORPUSCULAR HGB CONC 31.3 g/dL (32.0-36.0); MEAN CORPUSCULAR VOLUME 92.5 fL (81.0-99.0); MEAN PLATELET VOLUME 10.6 fL (7.9-10.8); MONOCYTES # (AUTO) 0.4 10^3/uL (0.0-1.0); NEUTROPHILS # (AUTO) 1.9 10^3/uL (1.5-6.6); NEUTROPHILS % (AUTO) 44.7 %; PLT - PLATELET COUNT 220 10^3/uL (130-450); RED BLOOD COUNT 3.18 10^6/uL (4.20-5.40); RED CELL DISTRIBUTION WIDTH 15.9 % (12.0-15.0); WHITE BLOOD COUNT 4.4 x10^3/uL (4.8-10.8)
[2022-12-06 08:42] LABS: ALBUMIN 1.6 g/dL (3.2-5.5); ALBUMIN/GLOBULIN RATIO 0.6 (1.0-2.2); ALKALINE PHOSPHATASE 89 IU/L (42-121); ALT ALANINE AMINOTRANSFERASE < 10 IU/L (10-60); AST ASPARTATE AMINOTRANSFERASE 15 IU/L (10-42); BILIRUBIN,TOTAL 0.5 mg/dL (0.2-1.0); BUN - BLOOD UREA NITROGEN 16 mg/dL (6-20); CALCIUM 8.1 mg/dL (8.5-10.3); CARBON DIOXIDE - CO2 29 mmol/L (21-32); CHLORIDE 105 mmol/L (101-111); CREATININE 0.9 mg/dL (0.4-1.0); GFR - MDRD 62 (>89); GLUCOSE 92 mg/dL (70-100); POTASSIUM 2.9 mmol/L (3.5-5.0); SODIUM 141 mmol/L (135-145); TOTAL PROTEIN 4.4 g/dL (6.7-8.2)
[2022-12-06 09:05] LABS: CRP - C-REACTIVE PROTEIN < 1.0 mg/dL (0-1.0)
== END 2022-12-06 08:05 | disposition home or self-care (01) ==
LOC: LAB.R 08:04
PROVIDERS: ATTEND Registered Nurse
DX: D62 Acute posthemorrhagic anemia (principal); Z96.642 Presence of left artificial hip joint
CPT/HCPCS: 80053; 85025; 86140

== ENCOUNTER 2022-12-18 08:00 | Outpatient (CLI) | payer MEDICARE, OTHER ==
[2022-12-18 17:24] LABS: BASOPHILS # (AUTO) 0.1 10^3/uL (0.0-0.1); BASOPHILS % (AUTO) 1.4 %; EOSINOPHILS # (AUTO) 0.2 10^3/uL (0.0-0.7); EOSINOPHILS % (AUTO) 4.3 %; HCT - HEMATOCRIT 26.5 % (37.0-47.0); HGB - HEMOGLOBIN 8.7 g/dL (12.0-16.0); LYMPHOCYTES # (AUTO) 1.5 10^3/uL (1.5-3.5); LYMPHOCYTES % (AUTO) 33.6 %; MEAN CORPUSCULAR HEMOGLOBIN 29.3 pg (27.0-31.0); MEAN CORPUSCULAR HGB CONC 32.8 g/dL (32.0-36.0); MEAN CORPUSCULAR VOLUME 89.2 fL (81.0-99.0); MONOCYTES # (AUTO) 0.5 10^3/uL (0.0-1.0); MONOCYTES % (AUTO) 11.1 %; NEUTROPHILS # (AUTO) 2.2 10^3/uL (1.5-6.6); NEUTROPHILS % (AUTO) 49.4 %; PLT - PLATELET COUNT 279 10^3/uL (130-450); RED BLOOD COUNT 2.97 10^6/uL (4.20-5.40); WHITE BLOOD COUNT 4.4 x10^3/uL (4.8-10.8)
[2022-12-18 17:43] LABS: ALBUMIN 1.8 g/dL (3.2-5.5); ALBUMIN/GLOBULIN RATIO 0.6 (1.0-2.2); ALKALINE PHOSPHATASE 81 IU/L (42-121); ALT ALANINE AMINOTRANSFERASE 12 IU/L (10-60); AST ASPARTATE AMINOTRANSFERASE 24 IU/L (10-42); BILIRUBIN,TOTAL 0.2 mg/dL (0.2-1.0); BUN - BLOOD UREA NITROGEN 21 mg/dL (6-20); CALCIUM 7.3 mg/dL (8.5-10.3); CARBON DIOXIDE - CO2 27 mmol/L (21-32); CHLORIDE 106 mmol/L (101-111); CREATININE 0.8 mg/dL (0.4-1.0); GFR - MDRD 71 (>89); GLUCOSE 106 mg/dL (70-100); POTASSIUM 2.9 mmol/L (3.5-5.0); SODIUM 140 mmol/L (135-145); TOTAL PROTEIN 4.7 g/dL (6.7-8.2)
[2022-12-18 17:44] LABS: CRP - C-REACTIVE PROTEIN < 1.0 mg/dL (0-1.0)
[2022-12-20 11:12] LABS: MAGNESIUM 1.2 mg/dL (1.7-2.8)
== END 2022-12-18 23:59 | disposition home or self-care (01) ==
LOC: LAB.R 08:00
PROVIDERS: ATTEND Internal Medicine Infectious Disease
DX: M16.9 Osteoarthritis of hip, unspecified (principal)
CPT/HCPCS: 80053; 83735; 85025; 86140

== ENCOUNTER 2023-03-22 08:50 | Outpatient (CLI) | payer MEDICARE, OTHER ==
[2023-03-22 11:50] LABS: BASOPHILS # (AUTO) 0.1 10^3/uL (0.0-0.1); BASOPHILS % (AUTO) 1.4 %; EOSINOPHILS # (AUTO) 0.2 10^3/uL (0.0-0.7); EOSINOPHILS % (AUTO) 3.5 %; HCT - HEMATOCRIT 37.1 % (37.0-47.0); HGB - HEMOGLOBIN 11.3 g/dL (12.0-16.0); LYMPHOCYTES # (AUTO) 1.4 10^3/uL (1.5-3.5); LYMPHOCYTES % (AUTO) 33.1 %; MEAN CORPUSCULAR HEMOGLOBIN 26.4 pg (27.0-31.0); MEAN CORPUSCULAR HGB CONC 30.5 g/dL (32.0-36.0); MEAN CORPUSCULAR VOLUME 86.7 fL (81.0-99.0); MEAN PLATELET VOLUME 10.8 fL (7.9-10.8); MONOCYTES # (AUTO) 0.3 10^3/uL (0.0-1.0); MONOCYTES % (AUTO) 7.7 %; NEUTROPHILS # (AUTO) 2.3 10^3/uL (1.5-6.6); NEUTROPHILS % (AUTO) 54.3 %; PLT - PLATELET COUNT 297 10^3/uL (130-450); RED BLOOD COUNT 4.28 10^6/uL (4.20-5.40); RED CELL DISTRIBUTION WIDTH 14.4 % (12.0-15.0); WHITE BLOOD COUNT 4.3 x10^3/uL (4.8-10.8)
[2023-03-22 12:49] LABS: ALBUMIN 4.3 g/dL (3.2-5.5); ALBUMIN/GLOBULIN RATIO 1.6 (1.0-2.2); ALKALINE PHOSPHATASE 80 IU/L (42-121); ALT ALANINE AMINOTRANSFERASE 12 IU/L (10-60); AST ASPARTATE AMINOTRANSFERASE 16 IU/L (10-42); BILIRUBIN,TOTAL 0.5 mg/dL (0.2-1.0); BUN - BLOOD UREA NITROGEN 25 mg/dL (6-20); CALCIUM 9.9 mg/dL (8.5-10.3); CARBON DIOXIDE - CO2 30 mmol/L (21-32); CHLORIDE 105 mmol/L (101-111); CHOLESTEROL 167 mg/dL; CREATININE 1.1 mg/dL (0.6-1.3); GFR - MDRD 49 (>89); GLUCOSE 102 mg/dL (74-104); HDL CHOLESTEROL 52 mg/dL; SODIUM 142 mmol/L (135-145); TRIGLYCERIDES 121 mg/dL (48-352); VLDL CHOLESTEROL 24 mg/dL
[2023-03-22 12:50] LABS: CHOL/HDL RATIO 3.2 (<4.4); LDL CHOLESTEROL,CALCULATED 91 mg/dL; LDL/HDL RATIO 1.8 (<4.4)
[2023-03-22 12:52] LABS: THYROID STIMULATING HORMONE 1.44 uIU/mL (0.34-5.60)
== END 2023-03-22 08:51 | disposition home or self-care (01) ==
LOC: LAB.N 08:50
PROVIDERS: ATTEND Physician Assistant Medical
DX: K21.9 Gastro-esophageal reflux disease without esophagitis (principal); E78.5 Hyperlipidemia, unspecified; Z79.899 Other long term (current) drug therapy
CPT/HCPCS: 36415; 80053; 80061; 83721; 84443; 85025

== ENCOUNTER 2023-10-03 10:56 | Outpatient (CLI) | payer MEDICARE, OTHER ==
[2023-10-03 17:39] LABS: BASOPHILS # (AUTO) 0.1 10^3/uL (0.0-0.1); BASOPHILS % (AUTO) 1.1 %; EOSINOPHILS # (AUTO) 0.3 10^3/uL (0.0-0.7); EOSINOPHILS % (AUTO) 4.9 %; HCT - HEMATOCRIT 38.5 % (37.0-47.0); HGB - HEMOGLOBIN 11.5 g/dL (12.0-16.0); LYMPHOCYTES # (AUTO) 1.3 10^3/uL (1.5-3.5); LYMPHOCYTES % (AUTO) 24.4 %; MEAN CORPUSCULAR HEMOGLOBIN 27.3 pg (27.0-31.0); MEAN CORPUSCULAR HGB CONC 29.9 g/dL (32.0-36.0); MEAN CORPUSCULAR VOLUME 91.2 fL (81.0-99.0); MEAN PLATELET VOLUME 10.6 fL (7.9-10.8); MONOCYTES # (AUTO) 0.4 10^3/uL (0.0-1.0); MONOCYTES % (AUTO) 7.8 %; NEUTROPHILS # (AUTO) 3.4 10^3/uL (1.5-6.6); NEUTROPHILS % (AUTO) 61.6 %; PLT - PLATELET COUNT 289 10^3/uL (130-450); RED BLOOD COUNT 4.22 10^6/uL (4.20-5.40); RED CELL DISTRIBUTION WIDTH 14.1 % (12.0-15.0); WHITE BLOOD COUNT 5.5 x10^3/uL (4.8-10.8)
[2023-10-03 18:00] LABS: ALBUMIN 4.3 g/dL (3.2-5.5); ALBUMIN/GLOBULIN RATIO 1.7 (1.0-2.2); ALKALINE PHOSPHATASE 74 IU/L (42-121); ALT ALANINE AMINOTRANSFERASE 13 IU/L (10-60); AST ASPARTATE AMINOTRANSFERASE 17 IU/L (10-42); BILIRUBIN,TOTAL 0.5 mg/dL (0.2-1.0); BUN - BLOOD UREA NITROGEN 36 mg/dL (6-20); CALCIUM 9.8 mg/dL (8.5-10.3); CARBON DIOXIDE - CO2 31 mmol/L (21-32); CHLORIDE 105 mmol/L (101-111); CHOLESTEROL 189 mg/dL; CREATININE 1.4 mg/dL (0.6-1.3); GFR - MDRD 37 (>89); GLUCOSE 94 mg/dL (74-104); HDL CHOLESTEROL 64 mg/dL; LDL CHOLESTEROL,CALCULATED 86 mg/dL; LDL/HDL RATIO 1.3 (<4.4); POTASSIUM 4.5 mmol/L (3.5-4.5); SODIUM 141 mmol/L (135-145); TOTAL PROTEIN 6.8 g/dL (6.4-8.9); TRIGLYCERIDES 196 mg/dL (48-352); VLDL CHOLESTEROL 39 mg/dL
== END 2023-10-03 10:57 | disposition home or self-care (01) ==
LOC: LAB.N 10:56
PROVIDERS: ATTEND Physician Assistant Medical
DX: E78.5 Hyperlipidemia, unspecified (principal); Z87.19 Personal history of other diseases of the digestive system; N18.9 Chronic kidney disease, unspecified
CPT/HCPCS: 36415; 80053; 80061; 82728; 83721; 85025

== ENCOUNTER 2023-11-06 11:06 | Outpatient (CLI) | payer MEDICARE, OTHER ==
--- NOTE | 2023-11-07 11:49 | Mammography Report ---
BILATERAL DIGITAL SCREENING MAMMOGRAM 3D/2D: 11/06/2023 CLINICAL: Routine screening. Comparison is made to exams dated: 05/17/2021 mammogram, 08/25/2019 mammogram, 05/21/2018 mammogram, 06/29/2016 mammogram, 03/15/2016 mammogram, and 05/28/2014 mammogram - [facility]. Both breasts are almost entirely fatty (category a/<25% glandular tissue). No significant masses, calcifications, or other findings are seen in either breast. There has been no significant interval change. IMPRESSION: NEGATIVE There is no mammographic evidence of malignancy. A 1 year screening mammogram is recommended. Based on the Tyrer Cuzick model (a risk assessment model) the patient's lifetime risk is 2.3% and her 10 year risk is 1.9%. According to the ACR, ACS, and NCCN guidelines, an annual breast MRI exam jose f g with mammogram is recommended if the patient's lifetime risk is 20% or greater. This exam was interpreted at Station ID: [id number]. NOTE: For mammograms, a report in lay terms will be sent to the patient. Approximately 15% of breast malignancies will not be visualized mammographically. In the management of a palpable breast mass, a negative mammogram must not discourage biopsy of a clinically suspicious lesion. Electronically Signed By: Kaitlin marquis/darlene:11/06/2023 15:21:16 letter sent: No_Letter ACR BI-RADS Category 1: Negative 3341F PARENCHYMAL PATTERN: (F) - The breast(s) demonstrate(s) diffuse fatty replacement. BI-RADS CATEGORY: (1) - 1 RECOMMENDATION: (ANNUAL) - Recommend routine annual screening mammography. [id number] 1 year screening LATERALITY: (B)
== END 2023-11-06 11:07 | disposition home or self-care (01) ==
LOC: DI.N 11:06
DX: Z12.31 Encounter for screening mammogram for malignant neoplasm of breast (principal)

== ENCOUNTER 2023-12-17 10:43 | Day surgery (SDC) | payer MEDICARE, OTHER ==
[2023-12-17] MEDS: LACTATED RINGERS 1,000 ML IV ONE (10:58)
[2023-12-17] MEDS ORDERED: PROPOFOL 500 MG/50 ML 500 MG/50 ML VIAL ONE (12:09)
[2023-12-17] MEDS ORDERED: LIDOCAINE-MPF 2% 5 ML VIAL ONE (12:42)
--- NOTE | 2023-12-17 12:47 | ANESTHESIA ---
Pre-Anesthesia VS, & Labs - Diagnosis one year follow up after upper gi bleed - Procedure EGD Vital Signs: Temp Pulse Resp BP Pulse Ox O2 Flow Rate 37.3 C 73 16 136/85 H 94 12/17/23 11:09 12/17/23 11:09 12/17/23 11:09 12/17/23 11:09 12/17/23 11:09 Height: 5 ft 1 in Weight (kg): 92.7 kg Body Mass Index: 38.6 BMI Classification: Obese - NPO >8 hours - Is Patient ?: No Home Medications and Allergies Home Medications: Ambulatory Orders Calcium Carbonate [Calcium] 600 mg PO DAILY 12/09/23 Magnesium 250 mg PO DAILY 12/09/23 Omeprazole 20 mg PO DAILY 12/09/23 Potassium Gluconate 550 mg PO DAILY 12/09/23 Solifenacin Succinate [Vesicare] 10 mg PO DAILY 12/09/23 buPROPion [Wellbutrin Xl] 150 mg PO DAILY 12/09/23 Atorvastatin [Lipitor] 20 mg PO HS 09/08/21 Calcium Carbonate [Calcium] 600 mg PO DAILY 12/09/23 Magnesium 250 mg PO DAILY 12/09/23 Omeprazole 20 mg PO DAILY 12/09/23 Potassium Gluconate 550 mg PO DAILY 12/09/23 Solifenacin Succinate [Vesicare] 10 mg PO DAILY 12/09/23 buPROPion [Wellbutrin Xl] 150 mg PO DAILY 12/09/23 Allergies/Adverse Reactions: Allergies Allergy/AdvReac Type Severity Reaction Status Date / Time oxycodone Allergy Hallucinati Verified 12/09/23 14:13 ons NSAIDS (Non-Steroidal AdvReac Cramps Verified 11/13/22 14:16 Anti-Inflamma Anes History & Medical History - Anesthetic History Anesthesia Complications: reports: No previous complications Family history of Anesthesia Complications: Denies - Medical History Cardiovascular: reports: High cholesterol (denies cp/sob, hx SD) Pulmonary: reports: None Gastrointestinal: reports: GERD, GI bleed, Colon polyps, C.difficile Urinary: reports: Other Neuro: reports: None Musculoskeletal: reports: None, Osteoarthritis, Osteoporosis Endocrine/Autoimmune: reports: None Blood Disorders: reports: None Skin: reports: None Smoking Status: Never smoker Psychosocial: reports: No issues indicated - Surgical History General: reports: Colonoscopy, EGD Eyes Ears Nose Throat (EENT): reports: Cataracts, Tonsil/Adenoidectomy Urologic: reports: Bladder surgery Orthopedic: reports: Hip replacement, Knee replacement, Other Results - EKG Results EKG Comparison: Reviewed EKG Exam General: Alert Dental: WNL Mouth Openin Fingerbreadth Neck Mobility: Normal Mallampati classification: II Thyromental Distance: 4-6 cm Plan Anesthesia Type: Total IV Consent for Procedure(s) Verified and Reviewed: Yes Code Status: Attempt Resuscitation ASA classification: 2-Mild systemic disease Is this case an emergency?: No
[2023-12-17] MEDS: LACTATED RINGERS 800 ML IV ONE (13:13)
[2023-12-17 13:19] VITALS: BP 108/57; O2SAT 96
--- NOTE | 2023-12-17 14:11 | ANESTHESIA POST OP EVALUATION ---
Anesthesia Post Eval - Post Anesthesia Eval Vitals: Last Vital Signs Temp 36.3 C L 12/17/23 13:13 Pulse 74 12/17/23 13:13 Resp 14 12/17/23 13:13 BP 108/57 L 12/17/23 13:13 Pulse Ox 96 12/17/23 13:13 O2 Flow Rate CV Function Including HR & BP: Stable Pain Control: Satisfactory Nausea & Vomiting: Negative Mental Status: Baseline Respiratory Status: Airway Patent Hydration Status: Satisfactory Anesthesia Complications: None
== END 2023-12-17 10:44 | disposition home or self-care (01) ==
LOC: SDS 10:43
PROVIDERS: ATTEND Surgery
PROC: 0DB38ZX Excision of Lower Esophagus, Via Natural or Artificial Opening Endoscopic, Diagnostic (ICD-10-PCS; 2023-12-17)
PROC: 0DB78ZX Excision of Stomach, Pylorus, Via Natural or Artificial Opening Endoscopic, Diagnostic (ICD-10-PCS; 2023-12-17)
PROC: 0DB48ZX Excision of Esophagogastric Junction, Via Natural or Artificial Opening Endoscopic, Diagnostic (ICD-10-PCS; principal; 2023-12-17 13:00)
DX: K22.70 Barrett's esophagus without dysplasia (principal); K21.9 Gastro-esophageal reflux disease without esophagitis; K44.9 Diaphragmatic hernia without obstruction or gangrene; E66.9 Obesity, unspecified; Z68.38 Body mass index [BMI] 38.0-38.9, adult; N18.9 Chronic kidney disease, unspecified; E78.5 Hyperlipidemia, unspecified
CPT/HCPCS: 43239; J7120